=== PATIENT | male | born 1960 | race Caucasian/White ===

== ENCOUNTER 2020-05-30 08:36 | Outpatient (REF) | payer MEDICAID, SELFPAY ==
[2020-05-30 09:34] LABS: Anion Gap 12 (12-20); Blood Urea Nitrogen 21 mg/dL (9-16); Calcium 8.7 mg/dL (8.4-10.2); Carbon Dioxide 29 mmol/L (22-29); Chloride 97 mmol/L (96-108); Estimated Glomerular Filt Rate > 60; Phosphorus 2.8 mg/dL (2.7-4.5); Potassium 4.1 mmol/l (3.3-5.1); Sodium 134 mmol/L (135-145)
[2020-05-30 14:21] LABS: Renal w Reflex Lab Use Only Order verified
== END 2020-05-30 08:37 | disposition home or self-care (01) ==
LOC: HO.LAB 08:36
PROVIDERS: PCP Family Medicine; Visit Provider Internal Medicine Nephrology
DX: N17.9 Acute kidney failure, unspecified (principal); L03.90 Cellulitis, unspecified; M62.82 Rhabdomyolysis; I12.9 Hypertensive chronic kidney disease with stage 1 through stage 4 chronic kidney disease, or unspecified chronic kidney disease; N18.30 Chronic kidney disease, stage 3 unspecified; M10.9 Gout, unspecified
CPT/HCPCS: 80051; 82310; 82565; 84100; 84520

== ENCOUNTER → 2020-06-07 09:00 | Outpatient (BNV) | payer MEDICAID, SELFPAY | PROVIDERS: Visit Provider Internal Medicine | DX: D64.9 Anemia, unspecified (principal); E53.8 Deficiency of other specified B group vitamins | CPT/HCPCS: 99213; 99214 ==

== ENCOUNTER 2020-06-28 07:43 | Outpatient (REF) | payer MEDICAID, SELFPAY | END 2020-06-28 07:44 | disposition home or self-care (01) | LOC: HO.MDS 07:43 | PROVIDERS: PCP Family Medicine; Visit Provider Internal Medicine | DX: D50.9 Iron deficiency anemia, unspecified (principal) | CPT/HCPCS: 96365; 96366; J1200; J1750; Q0163 ==

== ENCOUNTER 2020-08-16 10:56 | Outpatient (REF) | payer MEDICAID, SELFPAY ==
[2020-08-16 12:10] LABS: Basophils Absolute Auto 0.1 X10*3/uL (0.0-0.2); Basophils Percent Auto 0.7 % (0-2); Eosinophils Absolute Auto 0.3 X10*3/uL (0.0-0.4); Eosinophils Percent Auto 2.4 % (0-4); Hemoglobin 12.2 g/dl (14.0-18.0); Imm Gran Abs Auto 0.06 X10*3/uL (0.00-0.03); Imm Gran Pct Auto 0.5 % (0.0-0.4); Lymphocytes Absolute Auto 1.9 X10*3/uL (1.2-4.9); Lymphocytes Percent Auto 14.5 % (20-40); MANUAL DIFF FLAG NO; Mean Corpuscular Hemoglobin 29.3 pg (27.0-33.0); Mean Corpuscular Volume 88.7 fL (80-98); Mean Platelet Volume 8.2 fL (9.4-12.4); Monocytes Percent Auto 7.5 % (2-11); Neutrophils Absolute Auto 9.8 X10*3/uL (2.0-8.3); Neutrophils Percent Auto 74.4 % (45-73); Platelet Count 258 X10*3/uL (160-400); Red Blood Count 4.17 X10*6/uL (4.60-5.80); Red Cell Distribution Width 17.3 % (11.0-16.0); White Blood Count 13.1 X10*3/uL (4.8-10.8)
[2020-08-16 12:21] LABS: Estimated Average Glucose 120 mg/dL; Hemoglobin A1c % 5.8 %
[2020-08-16 12:43] LABS: Alanine Aminotransferase 20 U/L (0-40); Albumin Level 4.1 g/dL (3.5-5.0); Alkaline Phosphatase 82 U/L (39-117); Anion Gap 19 (12-20); Aspartate Amino Transferase 72 U/L (5-37); Blood Urea Nitrogen 18 mg/dL (9-16); C Reactive Protein 7.32 mg/dL (< or = 0.50); Calcium 8.7 mg/dL (8.4-10.2); Carbon Dioxide 26 mmol/L (22-29); Chloride 97 mmol/L (96-108); Cholesterol 176 mg/dL; Estimated Glomerular Filt Rate > 60; Glucose Random 123 mg/dL (60-115); HDL Cholesterol 37 mg/dL; Iron 38 mcg/dL (45-160); LDL Cholesterol Calculated 115 mg/dl; Magnesium 1.4 mg/dL (1.6-2.6); Percent Iron Saturation 14 % (15-50); Sodium 138 mmol/L (135-145); Total Iron Binding Capacity 280 mcg/dL (228-428); Total Protein 7.6 g/dL (6.5-8.0); Triglycerides 122 mg/dL; Unsaturated Iron Binding 242 ug/dL; Uric Acid 9.4 mg/dL (3.4-7.0)
[2020-08-16 12:51] LABS: Erythrocyte Sedimentation Rate 70 MM/HR (0-15)
[2020-08-16 12:54] LABS: TSH reflex Free T4 3.72 mIU/mL (0.32-4.0); Vitamin D 25-OH Total 17.9 ng/mL (>30)
[2020-08-16 13:11] LABS: Folate 7.9 ng/mL (> or = 4.0); Vitamin B12 > 2000 pg/mL (200-900)
== END 2020-08-16 10:57 | disposition home or self-care (01) ==
LOC: HO.LAB 10:56
PROVIDERS: PCP Family Medicine; Visit Provider Family Medicine
DX: D50.9 Iron deficiency anemia, unspecified (principal); E78.5 Hyperlipidemia, unspecified; E79.0 Hyperuricemia without signs of inflammatory arthritis and tophaceous disease; E83.42 Hypomagnesemia; N18.30 Chronic kidney disease, stage 3 unspecified; R70.0 Elevated erythrocyte sedimentation rate
CPT/HCPCS: 36415; 80053; 80061; 82306; 82550; 82607; 82746; 83036; 83540; 83735; 84443; 84550; 85025; 85652; 86140

== ENCOUNTER 2020-11-04 08:13 | Outpatient (REF) | payer MEDICAID, SELFPAY ==
[2020-11-04 09:43] LABS: Anion Gap 16 (12-20); Blood Urea Nitrogen 22 mg/dL (9-16); Calcium 8.5 mg/dL (8.4-10.2); Carbon Dioxide 28 mmol/L (22-29); Chloride 96 mmol/L (96-108); Estimated Glomerular Filt Rate > 60; Phosphorus 3.6 mg/dL (2.7-4.5); Potassium 4.2 mmol/L (3.3-5.1); Sodium 136 mmol/L (135-145)
[2020-11-04 09:57] LABS: Renal w Reflex Lab Use Only Order verified
== END 2020-11-04 08:14 | disposition home or self-care (01) ==
LOC: HO.LAB 08:13
PROVIDERS: Absent Provider Family Medicine; PCP Family Medicine; Visit Provider Internal Medicine Nephrology
DX: N17.9 Acute kidney failure, unspecified (principal); L03.90 Cellulitis, unspecified; M62.82 Rhabdomyolysis; I12.9 Hypertensive chronic kidney disease with stage 1 through stage 4 chronic kidney disease, or unspecified chronic kidney disease; N18.30 Chronic kidney disease, stage 3 unspecified; M10.9 Gout, unspecified
CPT/HCPCS: 36415; 80051; 82310; 82565; 84100; 84520

== ENCOUNTER 2020-12-09 12:42 | Outpatient (RCR) | payer MEDICAID, SELFPAY | END 2021-01-10 13:37 | disposition home or self-care (01) | LOC: HO.WCC 12:42 | PROVIDERS: Visit Provider Physician Assistant | DX: I87.333 Chronic venous hypertension (idiopathic) with ulcer and inflammation of bilateral lower extremity (principal); L97.221 Non-pressure chronic ulcer of left calf limited to breakdown of skin; L97.211 Non-pressure chronic ulcer of right calf limited to breakdown of skin; L97.811 Non-pressure chronic ulcer of other part of right lower leg limited to breakdown of skin; L97.821 Non-pressure chronic ulcer of other part of left lower leg limited to breakdown of skin; E66.01 Morbid (severe) obesity due to excess calories; I87.2 Venous insufficiency (chronic) (peripheral); I89.0 Lymphedema, not elsewhere classified; R73.03 Prediabetes; I12.9 Hypertensive chronic kidney disease with stage 1 through stage 4 chronic kidney disease, or unspecified chronic kidney disease; N18.9 Chronic kidney disease, unspecified; Z86.718 Personal history of other venous thrombosis and embolism; Z91.19 Patient's noncompliance with other medical treatment and regimen; Z79.2 Long term (current) use of antibiotics | CPT/HCPCS: 11042; 97597; 97598; 99212 ==

== ENCOUNTER 2021-01-27 08:13 | Outpatient (REF) | payer MEDICAID, SELFPAY ==
[2021-01-27 09:36] LABS: Anion Gap 14 (12-20); Blood Urea Nitrogen 18 mg/dL (9-16); Calcium 8.6 mg/dL (8.4-10.2); Carbon Dioxide 30 mmol/L (22-29); Chloride 100 mmol/L (96-108); Estimated Glomerular Filt Rate > 60; Potassium 3.9 mmol/L (3.3-5.1); Sodium 140 mmol/L (135-145)
== END 2021-01-27 08:14 | disposition home or self-care (01) ==
LOC: HO.LAB 08:13
PROVIDERS: PCP Family Medicine; Visit Provider Internal Medicine Nephrology
DX: N18.2 Chronic kidney disease, stage 2 (mild) (principal)
CPT/HCPCS: 36415; 80051; 82310; 82565; 84520

== ENCOUNTER 2021-04-28 08:11 | Outpatient (REF) | payer MEDICAID, SELFPAY ==
[2021-04-28 09:43] LABS: Anion Gap 16 (12-20); Blood Urea Nitrogen 13 mg/dL (9-16); Calcium 8.6 mg/dL (8.4-10.2); Carbon Dioxide 28 mmol/L (22-29); Chloride 95 mmol/L (96-108); Estimated Glomerular Filt Rate > 60; Potassium 4.1 mmol/L (3.3-5.1); Sodium 135 mmol/L (135-145)
== END 2021-04-28 08:12 | disposition home or self-care (01) ==
LOC: HO.LAB 08:11
PROVIDERS: PCP Family Medicine; Visit Provider Internal Medicine Nephrology
DX: I10 Essential (primary) hypertension (principal)
CPT/HCPCS: 36415; 80051; 82310; 82565; 84520

== ENCOUNTER 2021-08-15 07:50 | Outpatient (RCR) | payer MEDICAID, SELFPAY | END 2021-11-24 09:00 | disposition home or self-care (01) | LOC: HO.WCC 07:50 | PROVIDERS: PCP Family Medicine; Visit Provider Physician Assistant | DX: I87.333 Chronic venous hypertension (idiopathic) with ulcer and inflammation of bilateral lower extremity (principal); L97.322 Non-pressure chronic ulcer of left ankle with fat layer exposed; L97.221 Non-pressure chronic ulcer of left calf limited to breakdown of skin; R73.03 Prediabetes; I87.2 Venous insufficiency (chronic) (peripheral); E66.01 Morbid (severe) obesity due to excess calories; E44.1 Mild protein-calorie malnutrition; I89.0 Lymphedema, not elsewhere classified; Z86.718 Personal history of other venous thrombosis and embolism; Z79.899 Other long term (current) drug therapy; L97.812 Non-pressure chronic ulcer of other part of right lower leg with fat layer exposed | CPT/HCPCS: 11042; 11045; 29581; 97597; 99212; 99213 ==

== ENCOUNTER 2021-10-27 09:01 | Outpatient (REF) | payer MEDICAID, SELFPAY ==
[2021-10-27 10:34] LABS: Anion Gap 16 (12-20); Blood Urea Nitrogen 25 mg/dL (9-16); Calcium 8.9 mg/dL (8.4-10.2); Carbon Dioxide 29 mmol/L (22-29); Chloride 98 mmol/L (96-108); Estimated Glomerular Filt Rate > 60; Potassium 4.1 mmol/L (3.3-5.1); Sodium 139 mmol/L (135-145)
== END 2021-10-27 09:02 | disposition home or self-care (01) ==
LOC: HO.LAB 09:01
PROVIDERS: PCP Family Medicine; Visit Provider Internal Medicine Nephrology
DX: I10 Essential (primary) hypertension (principal)
CPT/HCPCS: 36415; 80051; 82310; 82565; 84520

== ENCOUNTER 2022-01-22 08:45 | Inpatient (IN) | payer MEDICAID, SELFPAY ==
--- NOTE | ~2022-01-22 | CT_ITS ---
EXAMINATION: CT LOWER EXTREMITY WITHOUT CONTRAST, RIGHT CT LOWER EXTREMITY WITHOUT CONTRAST, LEFT CLINICAL INFORMATION: Possible deep tissue infection. COMPARISON: X-ray of the right lower extremity May 2019. TECHNIQUE: CT scan of the right and left lower extremity was performed without contrast with reconstruction imaging performed at the acquisition workstation. FINDINGS: RIGHT LOWER EXTREMITY: Subcutaneous Soft Tissues: There appears to be generalized skin thickening. Scattered feathery-appearing increased density throughout the subcutaneous soft tissues compatible with edema, cellulitis, or combination of these. No focal fluid collection. Muscles and Tendons: Normal Scattered arterial calcification present throughout. Bone and Joints: There is scattered chronic-appearing periosteal reaction throughout the tibia and distal fibula. Bone and joints otherwise unremarkable. LEFT LOWER EXTREMITY: Mild generalized thickening of the skin less evident than on the right side. Subcutaneous Soft Tissues: Generalized streaky density noted throughout the subcutaneous soft tissues compatible edema, cellulitis or combination of these. Muscles and Tendons: Normal Arterial calcification is normal. Bone and Joints: There is scattered chronic-appearing periosteal reaction throughout the proximal and distal tibia and fibula. Appearance is similar to that noted on the right side. CT/CT lower leg LT wo con IMPRESSION: Right Lower Extremity: Generalized nonspecific skin thickening. Abnormality in the subcutaneous soft tissues compatible with edema, cellulitis, or combination of these. No localized fluid collection or abscess. Chronic periosteal reaction distal tibia and fibula with a similar appearance noted on the left side. This most likely reflects reactive change related to venous insufficiency. Less likely this could be seen with hypertrophic osteoarthropathy Left Lower Extremity: Generalized nonspecific skin thickening slightly less than that noted on the right side. Abnormality the subcutaneous soft tissues compatible edema, cellulitis, or combination of these. No localized fluid collection or abscess. Chronic periosteal reaction distal tibia and fibula with a similar appearance noted on the right side. This most likely reflects reactive change related to venous insufficiency. Less likely this could be seen with hypertrophic osteoarthropathy.
--- NOTE | ~2022-01-22 | US_ITS ---
EXAMINATION: US VENOUS ULTRASOUND WITH DOPPLER LOWER EXTREMITY, BILATERAL CLINICAL INFORMATION: Bilateral lower extremity swelling and pain COMPARISON: Bilateral DVT study 07/02/2019 TECHNIQUE: Ultrasound of the deep veins is performed from the hip to the calf with compression sonography and color and pulse Doppler assessment. Spectral analysis with color-flow imaging is performed. This study is limited due to clark in thickening and edema as well as scabs FINDINGS: RIGHT: There is normal venous compression and respiratory variation and augmented flow. The visualized common femoral vein, superficial femoral vein, profunda femoral vein, popliteal vein, and the trifurcation region shows no evidence of deep venous thrombosis. There is no significant popliteal fossa cyst. Prominent lymph nodes are present measuring a maximum of 1.8 cm. LEFT: There is normal venous compression and respiratory variation and augmented flow. The visualized common femoral vein, superficial femoral vein, profunda femoral vein, popliteal vein, and the trifurcation region shows no evidence of deep venous thrombosis. There is no significant popliteal fossa cyst. Prominent lymph nodes are present measuring a maximum of 1.2 cm. If the patient's symptoms persist, followup ultrasound in 5 days 7 days might be of value to exclude proximal propagation from a non-visualized calf vein. US/US venous duplex LE BI IMPRESSION: No DVT demonstrated in either lower extremity. Prominent infra inguinal lymph nodes bilaterally.
--- NOTE | ~2022-01-22 | XR_ITS ---
EXAMINATION: XR CHEST CLINICAL INFORMATION: Febrile with cough COMPARISON: Chest radiograph 12/16/2019 TECHNIQUE: 2 views of the chest were obtained. FINDINGS: The heart appears slightly larger when compared to 2020 exam but is probably within normal limits allowing for technique. No infiltrates, effusions or lung masses are seen. There is no evidence of CHF. XR/XR chest 2V IMPRESSION: No acute intrathoracic disease
--- NOTE | ~2022-01-22 | CT_ITS ---
EXAMINATION: CT LOWER EXTREMITY WITHOUT CONTRAST, RIGHT CT LOWER EXTREMITY WITHOUT CONTRAST, LEFT CLINICAL INFORMATION: Possible deep tissue infection. COMPARISON: X-ray of the right lower extremity May 2019. TECHNIQUE: CT scan of the right and left lower extremity was performed without contrast with reconstruction imaging performed at the acquisition workstation. FINDINGS: RIGHT LOWER EXTREMITY: Subcutaneous Soft Tissues: There appears to be generalized skin thickening. Scattered feathery-appearing increased density throughout the subcutaneous soft tissues compatible with edema, cellulitis, or combination of these. No focal fluid collection. Muscles and Tendons: Normal Scattered arterial calcification present throughout. Bone and Joints: There is scattered chronic-appearing periosteal reaction throughout the tibia and distal fibula. Bone and joints otherwise unremarkable. LEFT LOWER EXTREMITY: Mild generalized thickening of the skin less evident than on the right side. Subcutaneous Soft Tissues: Generalized streaky density noted throughout the subcutaneous soft tissues compatible edema, cellulitis or combination of these. Muscles and Tendons: Normal Arterial calcification is normal. Bone and Joints: There is scattered chronic-appearing periosteal reaction throughout the proximal and distal tibia and fibula. Appearance is similar to that noted on the right side. CT/CT lower leg RT wo con IMPRESSION: Right Lower Extremity: Generalized nonspecific skin thickening. Abnormality in the subcutaneous soft tissues compatible with edema, cellulitis, or combination of these. No localized fluid collection or abscess. Chronic periosteal reaction distal tibia and fibula with a similar appearance noted on the left side. This most likely reflects reactive change related to venous insufficiency. Less likely this could be seen with hypertrophic osteoarthropathy Left Lower Extremity: Generalized nonspecific skin thickening slightly less than that noted on the right side. Abnormality the subcutaneous soft tissues compatible edema, cellulitis, or combination of these. No localized fluid collection or abscess. Chronic periosteal reaction distal tibia and fibula with a similar appearance noted on the right side. This most likely reflects reactive change related to venous insufficiency. Less likely this could be seen with hypertrophic osteoarthropathy.
[2022-01-22 08:53] VITALS: BP 156/86; PULSE 100; RESP 20; TEMP 37.3; O2SAT 96; BMI 47.5
--- NOTE | 2022-01-22 09:03 | ED_ITS ---
HPI - General Adult General Chief complaint: Extremity Problem Stated complaint: r leg pain Time Seen by Provider: 01/22/22 09:03 Source: patient Mode of arrival: ambulatory (with walker) Limitations: no limitations History of Present Illness HPI narrative: Patient is a 61 year old male presenting to the emergency department today with right lower leg swelling and pain. Patient states that he has constant lower leg redness for which he used to follow up with the wound center but last month, they discharged him. Patient states that over the last 2 days, his right lower leg has gotten significantly more red and painful. Patient states that he does not have a history of diabetes. Patient states that he has a history of venous insufficiency for which he has had a venous ablation. Patient denies any dizziness, lightheadedness, abdominal pain, nausea, vomiting, fever, chills, blurry vision, double vision, loss of vision, chest pain, difficulty breathing, shortness of breath, back pain, night sweats, pain with urination, increased urinary frequency, increased urinary urgency, blood in his urine or stool, syncope or a near syncopal episode, recent trauma or falls, bowel incontinence, bladder incontinence, bowel retention, bladder retention, or any other complaints at this time. Onset (ago): day(s) Location: right and lower extremity Radiation: non-radiation Severity: mild Severity scale (1-10): 2 Quality: dull Pain Consistency: constant Relieving factors: none Exacerbating factors: none Associated symptoms: denies other symptoms Treatments prior to arrival: none Related Data Home Medications Medication Instructions Recorded Confirmed allopurinol 300 mg tablet 300 mg PO DAILY 06/07/20 01/22/22 ascorbic acid (vitamin C) 500 mg 500 mg PO BID 06/07/20 01/22/22 tablet (Vitamin C) calcium carbonate 500 mg-vitamin 1 tab PO BID 06/07/20 01/22/22 D3 3.125 mcg (125 unit) tablet magnesium oxide 400 mg PO BID 06/07/20 01/22/22 torsemide 20 mg tablet 40 mg PO DAILY 06/07/20 01/22/22 allopurinol 100 mg tablet 1 tab PO DAILY 01/22/22 01/22/22 lisinopril 5 mg tablet 1 tab PO DAILY 01/22/22 01/22/22 metoprolol succinate 50 mg 1 tab PO DAILY 01/22/22 01/22/22 tablet,extended release 24 hr rosuvastatin 5 mg tablet 1 tab PO BEDTIME 01/22/22 01/22/22 Previous Rx's Medication Instructions Recorded ferrous sulfate 325 mg (65 mg 325 mg PO BID #60 tab 11/30/21 iron) tablet Allergies Allergy/AdvReac Type Severity Reaction Status Date / Time azithromycin [AZITHROMYCIN] Allergy Severe FACIAL Verified 11/30/21 09:19 SWELLING hydrochlorothiazide [HCTZ] Allergy Unknown UNKNOWN Verified 11/30/21 09:19 Review of Systems Constitutional: Constitutional: Reports no additional constitutional complaints, Denies chills, Denies fever(s) and Denies night sweats Eyes: Eyes: Reports no additional eye complaints, Denies blurry vision, Denies change in vision, Denies diplopia, Denies eye discharge, Denies loss of vision and Denies eye pain ENT: Denies dizziness Cardiovascular: Cardiovascular: Reports no additional cardiovascular complaints, Denies chest pain, Denies lightheadedness, Denies Loss of Consciousness and Denies dyspnea Respiratory: Respiratory: Reports no additional respiratory complaints and Denies dyspnea Gastrointestinal: Gastrointestinal: Reports no additional gastrointestinal complaints, Denies abdominal pain, Denies melena, Denies hematochezia, Denies change in bowel habits and Denies change in stool character Genitourinary: Genitourinary: Reports no additional male genitourinary complaints, Denies hematuria, Denies oliguria, Denies difficulty urinating, Denies dysuria, Denies urinary frequency, Denies urinary hesitancy, Denies u rinary incontinence and Denies urinary urgency Musculoskeletal: Musculoskeletal: Reports no additional musculoskeletal complaints, Denies numbness and Denies tingling Comments: bilateral lower extremity swelling, redness Neurologic: Denies dizziness, Denies loss of vision, Denies numbness and Denies tingling Psychiatric: Psychiatric: Reports no additional psychiatric complaints Endocrine: Endocrine: Reports no additional endocrine complaints Hematologic/Lymphatic: Hematologic/Lymphatic: Reports no additional hematologic/lymphatic complaints Allergic/Immunologic: Allergic/Immunologic: Reports no additional allergic/immunologic complaints PMFSH Past Medical History Attestation statement: The following information was validated with the patient. Source: old records reviewed Medical History Alcoholic steatohepatitis Anemia Ascending aortic aneurysm Chronic ulcer of leg Chronic venous stasis History of DVT of lower extremity History of rhabdomyolysis HTN (hypertension) Hx of lower gastrointestinal bleeding Hx of sepsis DEBORAH (obstructive sleep apnea) Seborrheic dermatitis Surgical History Hx of colonoscopy Social History Social History Alcohol intake: current Alcohol intake frequency: 3 or more drinks per day Alcohol type: beer Patient Tobacco Use Status: Never used Tobacco Advance Directives: Yes Advance Directives Information Provided: No Advance Directives on File: No Physical Exam ED Vital Signs: Vital Signs - 24 hr 01/22/22 08:53 01/22/22 10:04 Temperature 99.1 F Pulse Rate 100 91 Respiratory Rate 20 16 Blood Pressure 156/86 H 151/76 H Pulse Oximetry 96 100 BMI result Body Mass Index 47.5 Const General: cooperative, no acute distress, alert and awake Nutritional Appearance: well nourished Orientation/consciousness: patient oriented x3 Limitations: no limitations HENMT Head: Yes normal to inspection and Yes atraumatic Ears: hearing grossly normal bilaterally and external ears normal General nose exam: Normal external nose present, no nasal discharge noted and no epistaxis Face and sinus: Yes normal facial exam, No abrasion and No laceration Mouth: Normal oral and palatal mucosa present, no drooling and no muffled voice Eyes General: appearance normal, both eyes and all related structures Periorbital: periorbital findings normal Eyelids: Yes eyelids normal Conjunctivae: conjunctivae normal Pupils: Equal, round and reactive pupils present EOM: EOMs intact bilaterally Neck Neck: Yes normal visual inspection, Yes full ROM and Yes no lymphadenopathy Chest Chest palpation & inspection: normal inspection of the chest Resp Effort & Inspection: normal respiratory effort and able to speak in complete sen tences Auscultation: clear to auscultation bilaterally Cardio Rate: regular rate Rhythm: regular rhythm GI Inspection: Yes normal to inspection Skin Other: significant erythema to the bilateral lower extremities with more so on the right than left, significant swelling to the right lower leg Neuro General: patient oriented x3 and moves all extremities Cranial nerves: Yes Equal, round and reactive pupils present Cognition (Neuro): normal cognition Motor exam (neuro): 5/5 motor strength present throughout Sensory Exam: Normal double simultaneous stimulation for sensation Coordination: [id number] test normal Extrem Other: General: Yes full ROM and Yes capillary refill normal Psych Appearance: grossly normal Mental Status: mental status grossly normal Affect: normal affect Attitude: cooperative Thought process: Normal thought process present Thought content: Normal thought content present Insight: Good insight present (Psych) Medical Decision Making MDM Narrative Medical decision making narrative: Patient is a 61 year old male presenting to the emergency department today with right lower leg pain. Patient's physical exam was as described previously in this chart, with extensive erythema, warmth, and swelling to the right lower leg. Patient's blood work showed an elevated WBC count. Patient's EKG was unremarkable. Patient's chest x-ray showed no acute process. Patient's bilateral lower extremity US, showed no acute process. Patient's bilateral lower leg CT showed, increased thickening to the right lower leg consistent with cellulitis. I spoke to Dr. Pratt, the hospitalist senior information security consultant, who agreed to admission. I explained my physical exam findings as well as all test results to the patient. I answered all questions asked by the patient. Patient received IV Zosyn, Morphine, and Zofran which he stated helped his symptoms significantly. Patient was afebrile and not tachycardic, I did not suspect sepsis in this patient. Patient verbalized agreement and understanding with this treatment plan and admission. Differential Diagnosis Differential Diagnosis: cellulitis, chronic venous insufficency, non-healing ulcer Medical Records Medical records reviewed: Yes I reviewed the patient's medical records. Lab Data Lab results reviewed: Yes I reviewed the patient's lab results. Result diagrams: 01/22/22 09:28 01/22/22 09:28 Labs: Lab Results 01/22/22 01/22/22 01/22/22 Range/Units 09:28 09:28 09:28 WBC 11.2 H (4.8-10.8) X10*3/uL RBC 4.09 L (4.60-5.80) X10*6/uL Hgb 9.5 L (14.0-18.0) g/dl Hct 31.1 L (42.0-52.0) % MCV 76.0 L (80.0-98.0) fL MCH 23.2 L (27.0-33.0) pg MCHC 30.5 L (31.0-36.0) g/dl RDW 16.4 H (11.0-16.0) % Plt Count 217 (160-400) X10*3/uL MPV 8.7 L (9.4-12.4) fL Immature Gran % (Auto) 0.5 H (0.0-0.4) % Neut % (Auto) 72.5 (45-73) % Lymph % (Auto) 14.1 L (20-40) % [place] % (Auto) 9.6 (2-11) % Eos % (Auto) 2.9 (0-4) % Baso % (Auto) 0.4 (0-2) % Lymph # (Auto) 1.6 (1.2-4.9) X10*3/uL [place] # (Auto) 1.1 (0.1-1.2) X10*3/uL Eos # (Auto) 0.3 (0.0-0.4) X10*3/uL Baso # (Auto) 0.1 (0.0-0.2) X10*3/uL Abs Immat Gran (auto) 0.06 H (0.00-0.03) X10*3/uL Absolute Neuts (auto) 8.1 (2.0-8.3) x10*3/uL Absolute Nucleated RBC 0.000 (0.0-0.012) X10*3/uL Nucleated RBC % (auto) 0.0 (0.0-0.2) /100WBC Sodium 136 (135-145) mmol/L Potassium 4.0 (3.3-5.1) mmol/L Chloride 96 (96-108) mmol/L Carbon Dioxide 27 (22-29) mmol/L Anion Gap 17 (12-20) BUN 19 H (9-16) mg/dL Creatinine 1.07 (0.5-1.4) mg/dL Estim Creat Clear Calc 104.7 Estimated GFR > 60 Random Glucose 121 H (60-115) mg/dL Lactic Acid 1.2 (0.5-2.0) mmol/L Calcium 8.9 (8.4-10.2) mg/dL Total Bilirubin 1.6 H (0.0-1.0) mg/dL AST 20 (5-37) U/L ALT 16 (0-40) U/L Alkaline Phosphatase 115 D (39-117) U/L B-Natriuretic Peptide (<100) pg/mL Total Protein 7.8 (6.5-8.0) g/dL Albumin 4.1 (3.5-5.0) g/dL COVID-19 ([facility]ST[facility]) (Negative) COVID-19 Clin Com 01/22/22 01/22/22 Range/Units 09:28 10:08 WBC (4.8-10.8) X10*3/uL RBC (4.60-5.80) X10*6/uL Hgb (14.0-18.0) g/dl Hct (42.0-52.0) % MCV (80.0-98.0) fL MCH (27.0-33.0) pg MCHC (31.0-36.0) g/dl RDW (11.0-16.0) % Plt Count (160-400) X10*3/uL MPV (9.4-12.4) fL Immature Gran % (Auto) (0.0-0.4) % Neut % (Auto) (45-73) % Lymph % (Auto) (20-40) % [place] % (Auto) (2-11) % Eos % (Auto) (0-4) % Baso % (Auto) (0-2) % Lymph # (Auto) (1.2-4.9) X10*3/uL [place] # (Auto) (0.1-1.2) X10*3/uL Eos # (Auto) (0.0-0.4) X10*3/uL Baso # (Auto) (0.0-0.2) X10*3/uL Abs Immat Gran (auto) (0.00-0.03) X10*3/uL Absolute Neuts (auto) (2.0-8.3) x10*3/uL Absolute Nucleated RBC (0.0-0.012) X10*3/uL Nucleated RBC % (auto) (0.0-0.2) /100WBC Sodium (135-145) mmol/L Potassium (3.3-5.1) mmol/L Chloride (96-108) mmol/L Carbon Dioxide (22-29) mmol/L Anion Gap (12-20) BUN (9-16) mg/dL Creatinine (0.5-1.4) mg/dL Estim Creat Clear Calc Estimated GFR Random Glucose (60-115) mg/dL Lactic Acid (0.5-2.0) mmol/L Calcium (8.4-10.2) mg/dL Total Bilirubin (0.0-1.0) mg/dL AST (5-37) U/L ALT (0-40) U/L Alkaline Phosphatase (39-117) U/L B-Natriuretic Peptide 51 (<100) pg/mL Total Protein (6.5-8.0) g/dL Albumin (3.5-5.0) g/dL COVID-19 (TORSTEN) Negative (Negative) COVID-19 Clin Com See Note Imaging Data Chest x-ray: Attestation: I personally reviewed and interpreted this imaging study as follows: My impression: No acute process. Radiologist's impression: EXAMINATION: XR CHEST CLINICAL INFORMATION: Febrile with cough COMPARISON: Chest radiograph 12/16/2019 TECHNIQUE: 2 views of the chest were obtained. FINDINGS: The heart appears slightly larger when compared to 2020 exam but is probably within normal limits allowing for technique. No infiltrates, effusions or lung masses are seen. There is no evidence of CHF. XR/XR chest 2V IMPRESSION: No acute intrathoracic disease Dictated By: Arnaldo Aguero MD Signed By: Electronically signed by Arnaldo Aguero MD 01/22/[address]: Attestation: I personally reviewed and interpreted this imaging study as follows: My impression: Right lower leg cellulitis Radiologist's impression: EXAMINATION: CT LOWER EXTREMITY WITHOUT CONTRAST, RIGHT? CT LOWER EXTREMITY WITHOUT CONTRAST, LEFT CLINICAL INFORMATION: Possible deep tissue infection.? COMPARISON: X-ray of the right lower extremity May 2019. TECHNIQUE: CT scan of the right and left lower extremity was performed without contrast with reconstruction imaging performed at the acquisition workstation.? FINDINGS: RIGHT LOWER EXTREMITY: Subcutaneous Soft Tissues: There appears to be generalized skin thickening. Scattered feathery-appearing increased density throughout the subcutaneous soft tissues compatible with edema, cellulitis, or combination of these. No focal fluid collection. Muscles and Tendons: Normal Scattered arterial calcification present throughout. Bone and Joints: There is scattered chronic-appearing periosteal reaction throughout the tibia and distal fibula. Bone and joints otherwise unremarkable. LEFT LOWER EXTREMITY: Mild generalized thickening of the skin less evident than on the right side. Subcutaneous Soft Tissues: Generalized streaky density noted throughout the subcutaneous soft tissues compatible edema, cellulitis or combination of these. Muscles and Tendons: Normal Arterial calcification is normal. Bone and Joints: There is scattered chronic-appearing periosteal reaction throughout the proximal and distal tibia and fibula. Appearance is similar to that noted on the right side.? CT/CT lower leg LT wo con IMPRESSION: Right Lower Extremity: Generalized nonspecific skin thickening. Abnormality in the subcutaneous soft tissues compatible with edema, cellulitis, or combination of these. No localized fluid collection or abscess. ? Chronic periosteal reaction distal tibia and fibula with a similar appearance noted on the left side. This most likely reflects reactive change related to venous insufficiency. Less likely this could be seen with hypertrophic osteoarthropathy ? Left Lower Extremity: Generalized nonspecific skin thickening slightly less than that noted on the right side. Abnormality the subcutaneous soft tissues compatible edema, cellulitis, or combination of these. No localized fluid collection or abscess. ? Chronic periosteal reaction distal tibia and fibula with a similar appearance noted on the right side. This most likely reflects reactive change related to venous insufficiency. Less likely this could be seen with hypertrophic osteoarthropathy. Dictated By: Jason Rodarte MD Signed By: Electronically signed by Jason Rodarte MD 01/22/22 1324 Bilateral lower leg US: Attestation: I personally reviewed and interpreted this imaging study as follows: My impression: No acute DVT. Radiologist's impression: EXAMINATION:? US VENOUS ULTRASOUND WITH DOPPLER LOWER EXTREMITY, BILATERAL CLINICAL INFORMATION:? Bilateral lower extremity swelling and pain COMPARISON:? Bilateral DVT study 07/02/2019 TECHNIQUE: Ultrasound of the deep veins is performed from the hip to the calf with compression sonography and color and pulse Doppler assessment. Spectral analysis with color-flow imaging is performed. This study is limited due to clark in thickening and edema as well as scabs FINDINGS: RIGHT: There is normal venous compression and respiratory variation and augmented flow. The visualized common femoral vein, superficial femoral vein, profunda femoral vein, popliteal vein, and the trifurcation region shows no evidence of deep venous thrombosis. ? There is no significant popliteal fossa cyst. Prominent lymph nodes are present measuring a maximum of 1.8 cm. LEFT: There is normal venous compression and respiratory variation and augmented flow. The visualized common femoral vein, superficial femoral vein, profunda femoral vein, popliteal vein, and the trifurcation region shows no evidence of deep venous thrombosis. ? There is no significant popliteal fossa cyst. Prominent lymph nodes are present measuring a maximum of 1.2 cm. If the patient's symptoms persist, followup ultrasound in 5 days 7 days might be of value to exclude proximal propagation from a non-visualized calf vein. US/US venous duplex LE BI IMPRESSION: No DVT demonstrated in either lower extremity. Prominent infra inguinal lymph nodes bilaterally. Dictated By: Arnaldo Aguero MD Signed By: Electronically signed by Arnaldo Aguero MD 01/22/22 1302 ECG Data Attestation: I personally reviewed and interpreted this ECG as follows: Prior ECG tracings: available for review Interpretation: Vent. Rate: 092 BPM ? ? Atrial Rate: 092 BPM P-R Int: 210 ms? QRS Dur: 120 ms QT Int: 388 ms ? ? ? P-R-T Axes: 043 -41 034 degrees QTc Int: 479 ms ? Sinus rhythm with 1st degree A-V block Left axis deviation Minimal voltage criteria for LVH, may be normal variant ( R in aVL ) Abnormal ECG When compared with ECG of 16-DEC-2019 21:25, [place] interval has increased ? Electronically Signed By:ARNOL MAHARAJ Dictated By: Arnol Maharaj MD Signed By: Electronically signed by Arnol Maharaj MD 01/22/22 1054 Critical Care Time Critical Care Time Critical Care Time: Yes Total Critical Care Time: 30 Attestation: I spent 30 minutes of Critical Care Time with this patient. This does not include time spent on separately reported billable procedures. Discharge Plan Discharge Clinical Impression: Cellulitis Patient Disposition: Admitted As Inpatient Prescriptions: No Action torsemide 20 mg Tablet 40 mg PO DAILY 0RF ascorbic acid (vitamin C) [Vitamin C] 500 mg Tablet 500 mg PO BID 0RF allopurinol 300 mg Tablet 300 mg PO DAILY 0RF calcium carbonate-vitamin D3 [Calcium 500 + D (D3)] 500 mg(1,250mg) -125 unit Tablet 1 tab PO BID 0RF magnesium oxide 400 mg magnesium Tablet 400 mg PO BID 0RF ferrous sulfate 325 mg (65 mg iron) Tablet 325 mg PO BID Qty: 60 3RF metoprolol succinate 50 mg tablet extended release 24 hr 1 tab PO DAILY 0RF allopurinol 100 mg tablet 1 tab PO DAILY 0RF Rx Instructions: Take with 300 mg tablet lisinopril 5 mg tablet 1 tab PO DAILY 0RF rosuvastatin 5 mg tablet 1 tab PO BEDTIME 0RF Print Language: Kazakh
--- NOTE | 2022-01-22 09:12 | ECG_ITS ---
Test Reason : weakness Blood Pressure : / mmHG Vent. Rate : 092 BPM Atrial Rate : 092 BPM P-R Int : 210 ms QRS Dur : 120 ms QT Int : 388 ms P-R-T Axes : 043 -41 034 degrees QTc Int : 479 ms Sinus rhythm with 1st degree A-V block Left axis deviation Minimal voltage criteria for LVH, may be normal variant ( R in aVL ) Abnormal ECG When compared with ECG of 16-DEC-2019 21:25, [place] interval has increased Referred By: Lacy Cho Electronically Signed By:CARRILLO MAHARAJ
[2022-01-22] MEDS: Piperacillin Sodium/Tazobactam 4.5 GM in 0.9 % Sodium Chloride 100 ML IV (09:40)
[2022-01-22 09:42] LABS: MANUAL DIFF FLAG NO
[2022-01-22 09:44] LABS: Basophils Absolute Auto 0.1 X10*3/uL (0.0-0.2); Basophils Percent Auto 0.4 % (0-2); Eosinophils Absolute Auto 0.3 X10*3/uL (0.0-0.4); Eosinophils Percent Auto 2.9 % (0-4); Hematocrit 31.1 % (42.0-52.0); Hemoglobin 9.5 g/dl (14.0-18.0); Imm Gran Abs Auto 0.06 X10*3/uL (0.00-0.03); Imm Gran Pct Auto 0.5 % (0.0-0.4); Lymphocytes Absolute Auto 1.6 X10*3/uL (1.2-4.9); Lymphocytes Percent Auto 14.1 % (20-40); Mean Corpuscular HGB Conc 30.5 g/dl (31.0-36.0); Mean Corpuscular Hemoglobin 23.2 pg (27.0-33.0); Mean Platelet Volume 8.7 fL (9.4-12.4); Monocytes Absolute Auto 1.1 X10*3/uL (0.1-1.2); Monocytes Percent Auto 9.6 % (2-11); Neutrophils Absolute Auto 8.1 x10*3/uL (2.0-8.3); Neutrophils Percent Auto 72.5 % (45-73); Platelet Count 217 X10*3/uL (160-400); Red Blood Count 4.09 X10*6/uL (4.60-5.80); Red Cell Distribution Width 16.4 % (11.0-16.0); White Blood Count 11.2 X10*3/uL (4.8-10.8)
[2022-01-22 09:56] LABS: Lactic Acid 1.2 mmol/L (0.5-2.0)
[2022-01-22 10:00] LABS: Alanine Aminotransferase 16 U/L (0-40); Albumin Level 4.1 g/dL (3.5-5.0); Alkaline Phosphatase 115 U/L (39-117); Anion Gap 17 (12-20); Aspartate Amino Transferase 20 U/L (5-37); Bilirubin Total 1.6 mg/dL (0.0-1.0); Blood Urea Nitrogen 19 mg/dL (9-16); Calcium 8.9 mg/dL (8.4-10.2); Carbon Dioxide 27 mmol/L (22-29); Chloride 96 mmol/L (96-108); Creatinine Clr Calc Pharmacy 104.7; Estimated Glomerular Filt Rate > 60; Glucose Random 121 mg/dL (60-115); Sodium 136 mmol/L (135-145); Total Protein 7.8 g/dL (6.5-8.0)
[2022-01-22 10:04] VITALS: BP 151/76; PULSE 91; RESP 16; O2SAT 100
[2022-01-22 10:06] LABS: B Type Natriuretic Peptide 51 pg/mL (<100)
[2022-01-22 10:35] LABS: COVID-19 Test Negative (Negative); IDNOW Serial# 16C4AD1C
--- NOTE | 2022-01-22 11:05 | PHA.MEDREC ---
Pharmacy Consult ? Medication Reconciliation Pharmacy has completed the medication reconciliation. Patient reported all medications. Reported he forget his magnesium often because it has to be seperate with ther medicaitons and food. On his list he has metoprolol 25 mg but claim history has 50 mg. I called [facility] to confirm which dose he take. Per the pharmacy metoprolol succinate 50 mg was filled january 02, 2022. Delmi EspinozaD
--- NOTE | 2022-01-22 14:50 | P.HPHOSP_ITS ---
History of Present Illness Date of Service: 01/22/22 Chief Complaint: swelling and redness in the legs 61 year old male with besity, HTN, HLD, history lower extremity DVT, chronic venous stasis with chronic erythema of the legs and follow with the wound care clinic that recently discharged from the clinic and presents with increasing rendess, and swelling in both legs with skin breaks in the right leg, with superficial drainage, has has been using a walker but increasingly is more difficulty ambulating. Home care agent advised hime to come to the ED today. He has no fever, WBC is 11. Given Zosyn. for presumed cellulitis Review of Systems Review of Systems: Gen: no fever Resp: no sob, no cough CV: no chest, no FRANKEL, no leg edema GI: No n/v, no abd pain Neuro: No confusion skin: redness and sweeling of both legs Yes all other systems are reviewed and are negative [facility] Medical History Alcoholic steatohepatitis Anemia Ascending aortic aneurysm Chronic ulcer of leg Chronic venous stasis History of DVT of lower extremity History of rhabdomyolysis HTN (hypertension) Hx of lower gastrointestinal bleeding Hx of sepsis DEBORAH (obstructive sleep apnea) Seborrheic dermatitis Surgical History Hx of colonoscopy Social History Household Members: None Housing: Apartment 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 If so, by whom?: No Do you feel safe in your current relationship?: Yes Is there a partner from a previous relationship who is making you feel unsafe now?: No Are you made to feel afraid or neglected: No Advance Directives: Yes Advance Directives Information Provided: No Advance Directives on File: No Advance Directives Date on File: 01/22/22 Do you have thoughts of harming others: None Do you have a plan to hurt others: No Plan Recently lost weight without trying: No Nutrition Risks: No Nutritional Risk Poor oral hygiene: No Meds Allergies Allergy/AdvReac Type Severity Reaction Status Date / Time azithromycin [AZITHROMYCIN] Allergy Severe FACIAL Verified 11/30/21 09:19 SWELLING hydrochlorothiazide [HCTZ] Allergy Unknown UNKNOWN Verified 11/30/21 09:19 Active Medications: Current Medications Pharmacy Consult (Consult Rx Perform Med Rec) 1 each MISCELLANE ONCE PRN PRN Reason: Consult order Home Medications Medication Instructions Recorded Confirmed Last Taken Type allopurinol 300 mg tablet 300 mg PO DAILY 06/07/20 01/22/22 01/19/22 History ascorbic acid (vitamin C) 500 mg 500 mg PO BID 06/07/20 01/22/22 01/19/22 History tablet (Vitamin C) calcium carbonate 500 mg-vitamin 1 tab PO BID 06/07/20 01/22/22 01/19/22 History D3 3.125 mcg (125 unit) tablet magnesium oxide 400 mg PO BID 06/07/20 01/22/22 01/19/22 History torsemide 20 mg tablet 40 mg PO DAILY 06/07/20 01/22/22 01/21/22 History allopurinol 100 mg tablet 1 tab PO DAILY 01/22/22 01/22/22 01/19/22 History lisinopril 5 mg tablet 1 tab PO DAILY 01/22/22 01/22/22 01/19/22 History metoprolol succinate 50 mg 1 tab PO DAILY 01/22/22 01/22/22 01/19/22 History tablet,extended release 24 hr rosuvastatin 5 mg tablet 1 tab PO BEDTIME 01/22/22 01/22/22 01/19/22 History Physical Exam Vital Signs and Narrative: Vital Signs: Last Vital Signs Temp 99.1 F 01/22/22 08:53 Pulse 91 01/22/22 10:04 Resp 16 01/22/22 10:04 BP 151/76 H 01/22/22 10:04 Pulse Ox 100 01/22/22 10:04 BMI result Body Mass Index 47.5 Const: Other: Constitutional: Alert, in no distress, overweight. Mental Status: Oriented to person, place and time. Eyes: Pupils are equal, round and reactive to light. Ear, Nose and Throat: Oropharynx clear, mucous membranes moist. Ears and nose without eformities. Trachea midline. Respiratory: Clear to auscultation. No wheezing, rales or rhonchi. Cardiovascular: S1 S2 regular. No murmurs, rubs or gallops. Gastrointestinal: Abdomen soft, non-tender, non-distended. Normal bowel sounds.? Neurologic: Cranial nerves II-XII grossly intact. No focal neurological deficits. Moves all extremities spontaneously.? Skin: No rashes or lesions.? Musculoskeletal: No cyanosis or clubbing. Psychiatric: Normal mood and affect? Results Labs CBC and Chem 7: 01/22/22 09:28 01/22/22 09:28 Labs: Laboratory Results - last 24 hr 01/22/22 01/22/22 01/22/22 09:28 09:28 09:28 MCV 76.0 L MCH 23.2 L MCHC 30.5 L RDW 16.4 H Plt Count 217 MPV 8.7 L Immature Gran % (Auto) 0.5 H Neut % (Auto) 72.5 Lymph % (Auto) 14.1 L Addison % (Auto) 9.6 Eos % (Auto) 2.9 Baso % (Auto) 0.4 Lymph # (Auto) 1.6 Addison # (Auto) 1.1 Eos # (Auto) 0.3 Baso # (Auto) 0.1 Abs Immat Gran (auto) 0.06 H Absolute Neuts (auto) 8.1 Absolute Nucleated RBC 0.000 Nucleated RBC % (auto) 0.0 Anion Gap 17 Estim Creat Clear Calc 104.7 Estimated GFR > 60 Random Glucose 121 H Lactic Acid 1.2 Calcium 8.9 Total Bilirubin 1.6 H AST 20 ALT 16 Alkaline Phosphatase 115 D B-Natriuretic Peptide Total Protein 7.8 Albumin 4.1 COVID-19 (TORSTEN) COVID-19 Clin Com 01/22/22 01/22/22 09:28 10:08 MCV MCH MCHC RDW Plt Count MPV Immature Gran % (Auto) Neut % (Auto) Lymph % (Auto) Addison % (Auto) Eos % (Auto) Baso % (Auto) Lymph # (Auto) Addison # (Auto) Eos # (Auto) Baso # (Auto) Abs Immat Gran (auto) Absolute Neuts (auto) Absolute Nucleated RBC Nucleated RBC % (auto) Anion Gap Estim Creat Clear Calc Estimated GFR Random Glucose Lactic Acid Calcium Total Bilirubin AST ALT Alkaline Phosphatase B-Natriuretic Peptide 51 Total Protein Albumin COVID-19 (TORSTEN) Negative COVID-19 Clin Com See Note Imaging Radiologist's Impressions: Impressions Lower Extremity CT 01/22/22 10:35 IMPRESSION: Right Lower Extremity: Generalized nonspecific skin thickening. Abnormality in the subcutaneous soft tissues compatible with edema, cellulitis, or combination of these. No localized fluid collection or abscess. Chronic periosteal reaction distal tibia and fibula with a similar appearance noted on the left side. This most likely reflects reactive change related to venous insufficiency. Less likely this could be seen with hypertrophic osteoarthropathy Left Lower Extremity: Generalized nonspecific skin thickening slightly less than that noted on the right side. Abnormality the subcutaneous soft tissues compatible edema, cellulitis, or combination of these. No localized fluid collection or abscess. Chronic periosteal reaction distal tibia and fibula with a similar appearance noted on the right side. This most likely reflects reactive change related to venous insufficiency. Less likely this could be seen with hypertrophic osteoarthropathy. Lower Extremity CT 01/22/22 10:35 IMPRESSION: Right Lower Extremity: Generalized nonspecific skin thickening. Abnormality in the subcutaneous soft tissues compatible with edema, cellulitis, or combination of these. No localized fluid collection or abscess. Chronic periosteal reaction distal tibia and fibula with a similar appearance noted on the left side. This most likely reflects reactive change related to venous insufficiency. Less likely this could be seen with hypertrophic osteoarthropathy Left Lower Extremity: Generalized nonspecific skin thickening slightly less than that noted on the right side. Abnormality the subcutaneous soft tissues compatible edema, cellulitis, or combination of these. No localized fluid collection or abscess. Chronic periosteal reaction distal tibia and fibula with a similar appearance noted on the right side. This most likely reflects reactive change related to venous insufficiency. Less likely this could be seen with hypertrophic osteoarthropathy. Venous Duplex 01/22/22 11:55 IMPRESSION: No DVT demonstrated in either lower extremity. Prominent infra inguinal lymph nodes bilaterally. Chest X-Ray 01/22/22 12:21 IMPRESSION: No acute intrathoracic disease Assessment and Plan (1) Cellulitis: Status: Acute Plan 61 year old male with besity, HTN, HLD, history lower extremity DVT, chronic venous stasis with chronic erythema here with superimposed acute bilateral lower extremity cellulitis, right greater than left 1/juju lower extremity cellulitis--given Zosyn, add IV Doxy, ID consult, +/-wound consult 2/HTN--continue Lisinopril, Metoprolol 3/ HLD--Rozovastatin 4/ Obesity--contributing to all his health problem, weight loss advised 5/ Anemia--likely of chronic disease, no active bleed 6/Chronic Heart Failures NOS--compensated, continue Torsemide 7/ h/o of gout--continue Allopurinol [facility] midnight for IV Abx for cellulitis covering more than 50% of legs Quality Stroke Does the patient have a stroke diagnosis?: No VTE Prior VTE?: Yes VTE Risk Level:: Medical - moderate - high VTE Device Contraindication: Procedure Contraindicated VTE Drug Contraindication: N/A - Med Ordered
[2022-01-22 14:59] VITALS: BP 146/64; PULSE 91; RESP 18; O2SAT 97
[2022-01-22] MEDS: Morphine Sulfate 4 MG/ML CARTRIDGE IVPUSH (15:03)
[2022-01-22] MEDS: ondansetron HCL 4 MG/2 ML VIAL IVPUSH (15:03)
[2022-01-22] MEDS: Enoxaparin Sodium 40 MG/0.4 ML SYRINGE SUBCUT (16:13)
[2022-01-22] MEDS: Piperacillin Sodium/Tazobactam 3.375 GM in 0.9 % Sodium Chloride 50 ML IV ×2 (16:13→21:29)
[2022-01-22] MEDS: 0.9 % Sodium Chloride Flush 3 ML SYRINGE IVFLUSH ×2 (16:14→21:30)
--- NOTE | 2022-01-22 16:35 | PC.NURSE ---
pt arrives to overflow at this time. bed 9 assigned and plan to obtain hospital bed.
[2022-01-22] MEDS: Doxycycline Hyclate 100 MG in 0.9 % Sodium Chloride 250 ML 166.67 MG IV (17:01)
[2022-01-22 17:51] VITALS: BP 150/73; PULSE 75; RESP 18; TEMP 36.7; O2SAT 100
[2022-01-23] VITALS (7 sets, daily range): BP systolic 128–171; BP diastolic 60–88; PULSE 58–78; RESP 16–18; TEMP 36.3–37.2; O2SAT 92–100
[2022-01-23] MEDS: Piperacillin Sodium/Tazobactam 3.375 GM in 0.9 % Sodium Chloride 50 ML IV ×2 (03:36→10:33)
[2022-01-23] MEDS: Doxycycline Hyclate 100 MG in 0.9 % Sodium Chloride 250 ML 166.67 MG IV (04:03)
[2022-01-23] MEDS: 0.9 % Sodium Chloride Flush 3 ML SYRINGE IVFLUSH ×3 (07:26→19:39)
--- NOTE | 2022-01-23 08:48 | P.PNIM_ITS ---
Subjective Subjective Date of Service: 01/23/22 Interval History: follow-up on bilateral leg cellulitis. Interval history; mild improvement. Constitutional swelling, pain, and redness of legs, no fever Physical Exam Vital Signs: Vital Signs: Last Vital Signs Temp 97.7 F 01/23/22 07:53 Pulse 77 01/23/22 07:53 Resp 18 01/23/22 07:53 BP 139/71 01/23/22 07:53 Pulse Ox 92 01/23/22 07:53 BMI result Body Mass Index 47.5 Const: Other: General: AO X 3, no acute distress Resp: CTA bilateral CVS: S1,S2,RRR GI: +BS, NT, no distention Skin: swelling, redness--see pic from H and P Neuro: motor grossly intact Psych: appropriate affect Objective Data Active Medications Enoxaparin Sodium (Enoxaparin Sodium 40 Mg/0.4 Ml Syringe) 40 mg SUBCUT Q24H [facility] Last Admin: 01/22/22 16:13 Dose: 40 mg Documented by: ANDERSON Hydromorphone HCl (Hydromorphone Hcl 1 Mg/Ml Syringe) 0.5 mg IVPUSH Q4H PRN; Protocol PRN Reason: Pain, Severe (Pain Scale 7-10) Doxycycline Hyclate 100 mg/ (Sodium Chloride) 250 mls @ 166.67 mls/hr IV Q12H [facility] Last Infusion: 01/23/22 05:59 Dose: 0 mls/hr Documented by: VIJAY Piperacillin Sod/Tazobactam (Sod 3.375 gm/ Sodium Chloride) 50 mls @ 100 mls/hr IV Q6H [facility] Last Infusion: 01/23/22 04:09 Dose: 0 mls/hr Documented by: VIJAY Pharmacy Consult (Consult Rx Perform Med Rec) 1 each MISCELLANE ONCE PRN PRN Reason: Consult order Sodium Chloride (0.9 % Sodium Chloride Flush 3 Ml Syringe) 3 ml IVFLUSH QSHIFT [facility] Last Admin: 01/23/22 07:26 Dose: 3 ml Documented by: KIA Labs CBC & Chem 7: 01/22/22 09:28 01/22/22 09:28 Labs: Laboratory Results - last 24 hr 01/22/22 01/22/22 01/22/22 09:28 09:28 09:28 MCV 76.0 L MCH 23.2 L MCHC 30.5 L RDW 16.4 H Plt Count 217 MPV 8.7 L Immature Gran % (Auto) 0.5 H Neut % (Auto) 72.5 Lymph % (Auto) 14.1 L Cassia % (Auto) 9.6 Eos % (Auto) 2.9 Baso % (Auto) 0.4 Lymph # (Auto) 1.6 Cassia # (Auto) 1.1 Eos # (Auto) 0.3 Baso # (Auto) 0.1 Abs Immat Gran (auto) 0.06 H Absolute Neuts (auto) 8.1 Absolute Nucleated RBC 0.000 Nucleated RBC % (auto) 0.0 Anion Gap 17 Estim Creat Clear Calc 104.7 Estimated GFR > 60 Random Glucose 121 H Lactic Acid 1.2 Calcium 8.9 Total Bilirubin 1.6 H AST 20 ALT 16 Alkaline Phosphatase 115 D B-Natriuretic Peptide Total Protein 7.8 Albumin 4.1 COVID-19 (TORSTEN) COVID-19 [place] 01/22/22 01/22/22 09:28 10:08 MCV MCH MCHC RDW Plt Count MPV Immature Gran % (Auto) Neut % (Auto) Lymph % (Auto) Cassia % (Auto) Eos % (Auto) Baso % (Auto) Lymph # (Auto) Cassia # (Auto) Eos # (Auto) Baso # (Auto) Abs Immat Gran (auto) Absolute Neuts (auto) Absolute Nucleated RBC Nucleated RBC % (auto) Anion Gap Estim Creat Clear Calc Estimated GFR Random Glucose Lactic Acid Calcium Total Bilirubin AST ALT Alkaline Phosphatase B-Natriuretic Peptide 51 Total Protein Albumin COVID-19 (TORSTEN) Negative COVID-19 Clin Com See Note Assessment and Plan (1) Cellulitis: Status: Acute (2) Anemia: Status: Chronic Plan 61 year old male with besity, HTN, HLD, history lower extremity DVT, chronic venous stasis with chronic erythema here with superimposed acute bilateral lower extremity cellulitis, right greater than left 1/juju lower extremity cellulitis -Zosyn, and IV Doxy, ID consult, wound consult 2/HTN--continue Lisinopril, Metoprolol 3/ HLD--Rozovastatin 4/ Obesity--contributing to all his health problem, weight loss advised 5/ Anemia--likely of chronic disease, no active bleed 6/Chronic Heart Failures NOS--compensated, continue Torsemide 7/ h/o of gout--continue Allopurinol DVT prophylaxis:Lovenox Need for inpatient: Extensive cellulitis of the feed that need IV Abx for proper resolution Quality Stroke Does the patient have a stroke diagnosis?: No VTE Prior VTE?: Yes VTE Risk Level:: Medical - moderate - high VTE Device Contraindication: Procedure Contraindicated VTE Drug Contraindication: N/A - Med Ordered
--- NOTE | 2022-01-23 09:35 | P.CDIC_ITS ---
CDI Concurrent Query Documentation Clarification: PHYSICIAN'S DOCUMENTATION REQUEST Date of Query: 01/23/22 0935 Patient Name: Mohan Gonzalez Admit Date: 01/22/22 Dear Doctor, A review of the medical record indicates additional documentation may be needed. Please review below and update the documentation accordingly. Risk Factors/Clinical Indicators/Treatments BMI: 47.5 PN: 01/22 - Obesity contributing to all his health problems. PMH: Extreme obesity class III If possible, please provide an associated diagnosis related to the abnormal BMI, such as: For a BMI >= 40: * Obesity * Due to excess calories * Drug induced * Due to other cause * Severe or Morbid Obesity * With alveolar hypoventilation * Without alveolar hypoventilation Or: * BMI is not significant * Other (please specify) * Unable to determine Use of terms such as suspected, likely, concern for, or probable (associated with a specific diagnosis that is being evaluated, monitored, or treated as if it exists) are acceptable and can be coded in the inpatient setting, when documented at the time of discharge. Thank you, Tuyet Cabral [facility] [place], CDIS Extension: [phone] Please use your independent medical judgment in providing your response. THIS QUERY IS PART OF THE PERMANENT MEDICAL RECORD Provider Response: Morbid Obesity Other Diagnosis: Severe morbid obesity
--- NOTE | 2022-01-23 09:35 | MHC.CDI.CONC ---
CDI Concurrent Query Documentation Clarification: PHYSICIAN'S DOCUMENTATION REQUEST Date of Query: 01/23/22 0935 Patient Name: Mohan Gonzalez Admit Date: 01/22/22 Dear Doctor, A review of the medical record indicates additional documentation may be needed. Please review below and update the documentation accordingly. Risk Factors/Clinical Indicators/Treatments BMI: 47.5 PN: 01/22 - Obesity contributing to all his health problems. PMH: Extreme obesity class III If possible, please provide an associated diagnosis related to the abnormal BMI, such as: For a BMI >= 40: Obesity Due to excess calories Drug induced Due to other cause Severe or Morbid Obesity With alveolar hypoventilation Without alveolar hypoventilation Or: BMI is not significant Other (please specify) Unable to determine Use of terms such as suspected, likely, concern for, or probable (associated with a specific diagnosis that is being evaluated, monitored, or treated as if it exists) are acceptable and can be coded in the inpatient setting, when documented at the time of discharge. Thank you, Tuyet Cabral [facility], CDIS Extension: [phone] Please use your independent medical judgment in providing your response. THIS QUERY IS PART OF THE PERMANENT MEDICAL RECORD Provider Response: Morbid Obesity Other Diagnosis: Severe morbid obesity
[2022-01-23] MEDS: allopurinoL 300 MG TABLET PO (10:32)
[2022-01-23] MEDS: Metoprolol Succinate ER 50 MG TAB.ER.24H PO (10:32)
[2022-01-23] MEDS: lisinopriL 5 MG TABLET PO (10:32)
[2022-01-23] MEDS: Torsemide 20 MG TABLET 40 MG PO (10:32)
[2022-01-23] MEDS: allopurinoL 100 MG TABLET PO (10:33)
[2022-01-23] MEDS: Ascorbic Acid 500 MG TABLET PO ×2 (10:33→19:36)
[2022-01-23] MEDS: Magnesium Oxide 400 MG TABLET PO ×2 (12:56→18:29)
[2022-01-23] MEDS: HYDROmorphone HCl 1 MG/ML SYRINGE 0.5 MG IVPUSH ×2 (12:56→19:39)
--- NOTE | 2022-01-23 13:26 | HO.WOUNDCONS ---
History of Present Illness Data of Consult Service Date: 01/23/22 Requesting physician: Jeff Alberts Primary Care Provider: Samantha Gonzales MD [facility] Reason for consult: bilateral leg wounds 61-year-old male discharge from wound care few months ago with a healed lower extremity wounds in the setting of venous insufficiency and obesity. He tells me that the last 2 visits with home nursing have not gone well because the wraps replaced too tightly. He then remove them and in turn got more swelling in his right leg. Was admitted for redness particularly in the right leg and has been on IV antibiotics. He is having some right anterior hip pain right now. He is having some difficulty walking because of the swelling in his leg. Denies fever. Denies back pain. No urinary difficulties. 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 If so, by whom?: No Do you feel safe in your current relationship?: Yes Is there a partner from a previous relationship who is making you feel unsafe now?: No Are you made to feel afraid or neglected: No Advance Directives: Yes Advance Directives Information Provided: No Advance Directives on File: No Advance Directives Date on File: 01/22/22 Do you have thoughts of harming others: None Do you have a plan to hurt others: No Plan Recently lost weight without trying: No Nutrition Risks: No Nutritional Risk Poor oral hygiene: No Meds Allergies Allergy/AdvReac Type Severity Reaction Status Date / Time azithromycin [AZITHROMYCIN] Allergy Severe FACIAL Verified 11/30/21 09:19 SWELLING hydrochlorothiazide [HCTZ] Allergy Unknown UNKNOWN Verified 11/30/21 09:19 Active Medications: Current Medications Allopurinol (Allopurinol 100 Mg Tablet) 100 mg PO DAILY [facility] Last Admin: 01/23/22 10:33 Dose: 100 mg Documented by: Allopurinol (Allopurinol 300 Mg Tablet) 300 mg PO DAILY [facility] Last Admin: 01/23/22 10:32 Dose: 300 mg Documented by: Ascorbic Acid (Ascorbic Acid 500 Mg Tablet) 500 mg PO BID [facility] Last Admin: 01/23/22 10:33 Dose: 500 mg Documented by: Atorvastatin Calcium (Atorvastatin Calcium 20 Mg Tablet) 20 mg PO BEDTIME [facility] Calcium Carbonate/Cholecalciferol (Calcium + Vitamin D 250 Mg Tablet) 500 mg PO BID [facility] Enoxaparin Sodium (Enoxaparin Sodium 40 Mg/0.4 Ml Syringe) 40 mg SUBCUT Q24H [facility] Last Admin: 01/22/22 16:13 Dose: 40 mg Documented by: Ferrous Sulfate (Ferrous Sulfate 324 Mg Tablet.Dr) 324 mg PO BID [facility] Hydromorphone HCl (Hydromorphone Hcl 1 Mg/Ml Syringe) 0.5 mg IVPUSH Q4H PRN; Protocol PRN Reason: Pain, Severe (Pain Scale 7-10) Last Admin: 01/23/22 12:56 Dose: 0.5 mg Documented by: Doxycycline Hyclate 100 mg/ (Sodium Chloride) 250 mls @ 166.67 mls/hr IV Q12H [facility] Last Infusion: 01/23/22 05:59 Dose: Infused Documented by: Piperacillin Sod/Tazobactam (Sod 3.375 gm/ Sodium Chloride) 50 mls @ 100 mls/hr IV Q6H [facility] Last Infusion: 01/23/22 11:27 Dose: Infused Documented by: Lisinopril (Lisinopril 5 Mg Tablet) 5 mg PO DAILY [facility]; Protocol Last Admin: 01/23/22 10:32 Dose: 5 mg Documented by: Magnesium Oxide (Magnesium Oxide 400 Mg Tablet) 400 mg PO BID@0700,1900 [facility] Last Admin: 01/23/22 12:56 Dose: 400 mg Documented by: Metoprolol Succinate (Metoprolol Succinate Er 50 Mg Tab.Er.24h) 50 mg PO DAILY [facility]; Protocol Last Admin: 01/23/22 10:32 Dose: 50 mg Documented by: Pharmacy Consult (Consult Rx Perform Med Rec) 1 each MISCELLANE ONCE PRN PRN Reason: Consult order Sodium Chloride (0.9 % Sodium Chloride Flush 3 Ml Syringe) 3 ml IVFLUSH QSHIFT [facility] Last Admin: 01/23/22 07:26 Dose: 3 ml Documented by: Torsemide (Torsemide 20 Mg Tablet) 40 mg PO DAILY [facility]; Protocol Last Admin: 01/23/22 10:32 Dose: 40 mg Documented by: Home Medications Medication Instructions Recorded Confirmed Last Taken Type allopurinol 300 mg tablet 300 mg PO DAILY 06/07/20 01/22/22 01/19/22 History ascorbic acid (vitamin C) 500 mg 500 mg PO BID 06/07/20 01/22/22 01/19/22 History tablet (Vitamin C) calcium carbonate 500 mg-vitamin 1 tab PO BID 06/07/20 01/22/22 01/19/22 History D3 3.125 mcg (125 unit) tablet magnesium oxide 400 mg PO BID 06/07/20 01/22/22 01/19/22 History torsemide 20 mg tablet 40 mg PO DAILY 06/07/20 01/22/22 01/21/22 History allopurinol 100 mg tablet 1 tab PO DAILY 01/22/22 01/22/22 01/19/22 History lisinopril 5 mg tablet 1 tab PO DAILY 01/22/22 01/22/22 01/19/22 History metoprolol succinate 50 mg 1 tab PO DAILY 01/22/22 01/22/22 01/19/22 History tablet,extended release 24 hr rosuvastatin 5 mg tablet 1 tab PO BEDTIME 01/22/22 01/22/22 01/19/22 History Physical Exam Vital Signs and Narrative: Vital Signs: Last Vital Signs Temp 98.1 F 01/23/22 12:00 Pulse 69 01/23/22 12:00 Resp 18 01/23/22 12:00 BP 132/67 01/23/22 12:00 Pulse Ox 99 01/23/22 12:00 BMI result Body Mass Index 47.5 I do not see any evidence of active cellulitis. There is no warmth to touch in the lower extremities. There is no redness or streaking. He has chronic venous stasis history but is legs are dry today. The area on the right proximal lateral leg that looks like it might be wound is actually intact and dried eschar. It does not express any fluid. His edema isrelatively well controlled in the left leg. The right foot is swollen in the absence of reported trauma. The dorsalis pedis pulses difficult to palpate because of the swelling. Results Labs CBC and Chem 7: 01/22/22 09:28 01/22/22 09:28 Imaging Radiologist's Impressions: Impressions Lower Extremity CT 01/22/22 10:35 IMPRESSION: Right Lower Extremity: Generalized nonspecific skin thickening. Abnormality in the subcutaneous soft tissues compatible with edema, cellulitis, or combination of these. No localized fluid collection or abscess. Chronic periosteal reaction distal tibia and fibula with a similar appearance noted on the left side. This most likely reflects reactive change related to venous insufficiency. Less likely this could be seen with hypertrophic osteoarthropathy Left Lower Extremity: Generalized nonspecific skin thickening slightly less than that noted on the right side. Abnormality the subcutaneous soft tissues compatible edema, cellulitis, or combination of these. No localized fluid collection or abscess. Chronic periosteal reaction distal tibia and fibula with a similar appearance noted on the right side. This most likely reflects reactive change related to venous insufficiency. Less likely this could be seen with hypertrophic osteoarthropathy. Lower Extremity CT 01/22/22 10:35 IMPRESSION: Right Lower Extremity: Generalized nonspecific skin thickening. Abnormality in the subcutaneous soft tissues compatible with edema, cellulitis, or combination of these. No localized fluid collection or abscess. Chronic periosteal reaction distal tibia and fibula with a similar appearance noted on the left side. This most likely reflects reactive change related to venous insufficiency. Less likely this could be seen with hypertrophic osteoarthropathy Left Lower Extremity: Generalized nonspecific skin thickening slightly less than that noted on the right side. Abnormality the subcutaneous soft tissues compatible edema, cellulitis, or combination of these. No localized fluid collection or abscess. Chronic periosteal reaction distal tibia and fibula with a similar appearance noted on the right side. This most likely reflects reactive change related to venous insufficiency. Less likely this could be seen with hypertrophic osteoarthropathy. Assessment and Plan (1) Chronic venous stasis: Status: Acute Plan 61-year-old male with chronic venous insufficiency and history of ablation who benefits from chronic edema management with Davide wraps. I do not see any reason why the can be placed as soon as he is comfortable, unless there is a cardiac contraindication. I did not see a BNP in his chart. If ammonium lactate is available for flaking epithelium this could be utilized as well. No areas of opening or weeping. Patient is agreeable to facility transfer after acute hospitalization to help with mobility which seems to be is primary obstacle at this point. He can followup in the wound clinic if any drainage or ulceration occurs in the bilateral lower legs after hospital/facility discharge. I
--- NOTE | 2022-01-23 14:04 | W.PM.IDCN ---
History of Present Illness Data of Consult Service Date: 01/23/22 Requesting physician: Jeff Alberts Primary Care Provider: Samantha Gonzales MD HPI Reason for consult: bilateral leg redness He presents with bilateral leg redness. He has had venous stasis changes and sees Wound Care for chronic wounds related to venous stasis changes which he admits are about the same. He is bothered by discomfort in right hip causing him to sit in same spot and have pain in hip area. He has no fever or chills or leukocytosis. Review of Systems Review of Systems: Yes all other systems are reviewed and are negative [facility] Past Medical History Medical History Alcoholic steatohepatitis Anemia Ascending aortic aneurysm Chronic ulcer of leg Chronic venous stasis History of DVT of lower extremity History of rhabdomyolysis HTN (hypertension) Hx of lower gastrointestinal bleeding Hx of sepsis DEBORAH (obstructive sleep apnea) Seborrheic dermatitis Family History Family history: reviewed and not pertinent Surgical History Surgical History Hx of colonoscopy Social History Social History Household Members: None Housing: Apartment 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 If so, by whom?: No Do you feel safe in your current relationship?: Yes Is there a partner from a previous relationship who is making you feel unsafe now?: No Are you made to feel afraid or neglected: No Advance Directives: Yes Advance Directives Information Provided: No Advance Directives on File: No Advance Directives Date on File: 01/22/22 Do you have thoughts of harming others: None Do you have a plan to hurt others: No Plan Recently lost weight without trying: No Nutrition Risks: No Nutritional Risk Poor oral hygiene: No Meds Allergies Allergy/AdvReac Type Severity Reaction Status Date / Time azithromycin [AZITHROMYCIN] Allergy Severe FACIAL Verified 11/30/21 09:19 SWELLING hydrochlorothiazide [HCTZ] Allergy Unknown UNKNOWN Verified 11/30/21 09:19 Active Medications: Current Medications Allopurinol (Allopurinol 100 Mg Tablet) 100 mg PO DAILY [facility] Last Admin: 01/23/22 10:33 Dose: 100 mg Documented by: Allopurinol (Allopurinol 300 Mg Tablet) 300 mg PO DAILY [facility] Last Admin: 01/23/22 10:32 Dose: 300 mg Documented by: Ascorbic Acid (Ascorbic Acid 500 Mg Tablet) 500 mg PO BID [facility] Last Admin: 01/23/22 10:33 Dose: 500 mg Documented by: Atorvastatin Calcium (Atorvastatin Calcium 20 Mg Tablet) 20 mg PO BEDTIME [facility] Calcium Carbonate/Cholecalciferol (Calcium + Vitamin D 250 Mg Tablet) 500 mg PO BID [facility] Enoxaparin Sodium (Enoxaparin Sodium 40 Mg/0.4 Ml Syringe) 40 mg SUBCUT Q24H [facility] Last Admin: 01/22/22 16:13 Dose: 40 mg Documented by: Ferrous Sulfate (Ferrous Sulfate 324 Mg Tablet.Dr) 324 mg PO BID [facility] Hydromorphone HCl (Hydromorphone Hcl 1 Mg/Ml Syringe) 0.5 mg IVPUSH Q4H PRN; Protocol PRN Reason: Pain, Severe (Pain Scale 7-10) Last Admin: 01/23/22 12:56 Dose: 0.5 mg Documented by: Lisinopril (Lisinopril 5 Mg Tablet) 5 mg PO DAILY [facility]; Protocol Last Admin: 01/23/22 10:32 Dose: 5 mg Documented by: Magnesium Oxide (Magnesium Oxide 400 Mg Tablet) 400 mg PO BID@0700,1900 [facility] Last Admin: 01/23/22 12:56 Dose: 400 mg Documented by: Metoprolol Succinate (Metoprolol Succinate Er 50 Mg Tab.Er.24h) 50 mg PO DAILY [facility]; Protocol Last Admin: 01/23/22 10:32 Dose: 50 mg Documented by: Pharmacy Consult (Consult Rx Perform Med Rec) 1 each MISCELLANE ONCE PRN PRN Reason: Consult order Sodium Chloride (0.9 % Sodium Chloride Flush 3 Ml Syringe) 3 ml IVFLUSH QSHIFT [facility] Last Admin: 01/23/22 07:26 Dose: 3 ml Documented by: Torsemide (Torsemide 20 Mg Tablet) 40 mg PO DAILY [facility]; Protocol Last Admin: 01/23/22 10:32 Dose: 40 mg Documented by: Home Medications Medication Instructions Recorded Confirmed Last Taken Type allopurinol 300 mg tablet 300 mg PO DAILY 06/07/20 01/22/22 01/19/22 History ascorbic acid (vitamin C) 500 mg 500 mg PO BID 06/07/20 01/22/22 01/19/22 History tablet (Vitamin C) calcium carbonate 500 mg-vitamin 1 tab PO BID 06/07/20 01/22/22 01/19/22 History D3 3.125 mcg (125 unit) tablet magnesium oxide 400 mg PO BID 06/07/20 01/22/22 01/19/22 History torsemide 20 mg tablet 40 mg PO DAILY 06/07/20 01/22/22 01/21/22 History allopurinol 100 mg tablet 1 tab PO DAILY 01/22/22 01/22/22 01/19/22 History lisinopril 5 mg tablet 1 tab PO DAILY 01/22/22 01/22/22 01/19/22 History metoprolol succinate 50 mg 1 tab PO DAILY 01/22/22 01/22/22 01/19/22 History tablet,extended release 24 hr rosuvastatin 5 mg tablet 1 tab PO BEDTIME 01/22/22 01/22/22 01/19/22 History Physical Exam Vital Signs: Vital Signs: Last Vital Signs Temp 98.1 F 01/23/22 12:00 Pulse 69 01/23/22 12:00 Resp 18 01/23/22 12:00 BP 132/67 01/23/22 12:00 Pulse Ox 99 01/23/22 12:00 BMI result Body Mass Index 47.5 Const: General: cooperative HEENT: Head: Yes normal to inspection Mouth: Normal oral and palatal mucosa present Resp: Effort & Inspection: normal respiratory effort Cardio: Rate: regular rate Rhythm: regular rhythm GI: Inspection: Yes normal to inspection Extrem: Other: chronic venous stasis changes,right more than left,some bleeding area more irritated right rajput Results Labs CBC & Chem 7: 01/22/22 09:28 01/22/22 09:28 Microbiology Microbiology Results: Microbiology 01/22/22 09:34 Blood - Venous Blood Culture - Preliminary No growth after 24 hours. 01/22/22 09:28 Blood - Venous Blood Culture - Preliminary No growth after 24 hours. Assessment and Plan (1) Chronic venous stasis: Status: Acute There seems to be no areas of cellulitis with no acute changes of significance at this point in time He is being seen by Wound Care team Mostly venous stasis changes with some hip pain and acute issues caused by increasing limb swelling. Cellulitis requiring antibiotics also is very rarely bilateral. Plan Hold antibiotics at this time. Compression and elevation and local care. Pain management prn need hip discomfoft.
--- NOTE | 2022-01-23 14:48 | MHC.CM.PN ---
Addendum entered by Suzi Lennon 01/23/22 15:25: PATIENT HAS DAILY RN SKILLS WITH [facility] SERVICE REFERRAL PLACED FOR AGENCY TO FOLLOW [facility] PAPERWORK PLACED IN CHART Original Note: HCP ON FILE IS NOT VALID. CASE MANAGEMENT TO ASSIST WITH COMPLETION OF NEW HCP. CURRENTLY DOES NOT USE A CANE OR WALKER BUT FEELS HE MAY NEED THESE DEVICES. HE USES [facility] FOR MONTHLY B-12 INJECTIONS PATIENT RELIES ON PUBLIC TRANSPORT OR HE WALKS WHERE NEEDED. COVID VACCINATED X 3. CASE MANAGEMENT FOLLOWING FOR DC PLAN
[2022-01-23] MEDS: Enoxaparin Sodium 40 MG/0.4 ML SYRINGE SUBCUT (16:31)
[2022-01-23] MEDS: Ferrous Sulfate 324 MG TABLET.DR PO (19:36)
[2022-01-23] MEDS: Atorvastatin Calcium 20 MG TABLET PO (19:36)
[2022-01-23] MEDS: Calcium + Vitamin D 250 MG TABLET 500 MG PO (19:36)
[2022-01-24 03:13] VITALS: BP 124/57; PULSE 72; RESP 16; TEMP 37.1; O2SAT 92
[2022-01-24] MEDS: Magnesium Oxide 400 MG TABLET PO ×2 (07:20→18:31)
[2022-01-24] MEDS: 0.9 % Sodium Chloride Flush 3 ML SYRINGE IVFLUSH ×3 (07:20→21:33)
[2022-01-24 07:38] VITALS: BP 141/69; PULSE 65; RESP 18; TEMP 36.9; O2SAT 93
[2022-01-24] MEDS: Torsemide 20 MG TABLET 40 MG PO (09:43)
[2022-01-24] MEDS: allopurinoL 300 MG TABLET PO (09:43)
[2022-01-24] MEDS: allopurinoL 100 MG TABLET PO (09:43)
[2022-01-24] MEDS: Ascorbic Acid 500 MG TABLET PO ×2 (09:43→21:32)
[2022-01-24] MEDS: Metoprolol Succinate ER 50 MG TAB.ER.24H PO (09:43)
[2022-01-24] MEDS: Calcium + Vitamin D 250 MG TABLET 500 MG PO ×2 (09:43→21:32)
[2022-01-24] MEDS: lisinopriL 5 MG TABLET PO (09:43)
[2022-01-24] MEDS: Ferrous Sulfate 324 MG TABLET.DR PO ×2 (09:43→21:33)
--- NOTE | 2022-01-24 10:11 | HO.PM.IMPN ---
Subjective Subjective Date of Service: 01/24/22 Interval History: follow-up on bilateral leg cellulitis. Interval history: legs are better, but has difficulty walking d/t pulled muscle Review of Systems Gen: no fever Resp: no sob, no cough CV: no chest, no FRANKEL, no leg edema GI: No n/v, no abd pain Neuro: No confusion skin: redness and sweeling of both legs Physical Exam Vital Signs: Vital Signs: Last Vital Signs Temp 98.5 F 01/24/22 07:38 Pulse 65 01/24/22 07:38 Resp 18 01/24/22 07:38 BP 141/69 H 01/24/22 07:38 Pulse Ox 93 01/24/22 07:38 O2 Del Method 01/24/22 07:38 BMI result Body Mass Index 47.5 Const: Other: General: AO X 3, no acute distress Resp: CTA bilateral CVS: S1,S2,RRR GI: +BS, NT, no distention Skin: swelling, redness--see pic from H and P Neuro: motor grossly intact Psych: appropriate affect Objective Data Active Medications Allopurinol (Allopurinol 100 Mg Tablet) 100 mg PO DAILY [facility] Last Admin: 01/24/22 09:43 Dose: 100 mg Documented By: KIA Allopurinol (Allopurinol 300 Mg Tablet) 300 mg PO DAILY [facility] Last Admin: 01/24/22 09:43 Dose: 300 mg Documented By: KIA Ascorbic Acid (Ascorbic Acid 500 Mg Tablet) 500 mg PO BID [facility] Last Admin: 01/24/22 09:43 Dose: 500 mg Documented By: KIA Atorvastatin Calcium (Atorvastatin Calcium 20 Mg Tablet) 20 mg PO BEDTIME [facility] Last Admin: 01/23/22 19:36 Dose: 20 mg Documented By: FRANK Calcium Carbonate/Cholecalciferol (Calcium + Vitamin D 250 Mg Tablet) 500 mg PO BID [facility] Last Admin: 01/24/22 09:43 Dose: 500 mg Documented By: KIA Enoxaparin Sodium (Enoxaparin Sodium 40 Mg/0.4 Ml Syringe) 40 mg SUBCUT Q24H [facility] Last Admin: 01/23/22 16:31 Dose: 40 mg Documented By: KIA Ferrous Sulfate (Ferrous Sulfate 324 Mg Tablet.) 324 mg PO BID [facility] Last Admin: 01/24/22 09:43 Dose: 324 mg Documented By: KIA Hydromorphone HCl (Hydromorphone Hcl 1 Mg/Ml Syringe) 0.5 mg IVPUSH Q4H PRN; Protocol PRN Reason: Pain, Severe (Pain Scale 7-10) Last Admin: 01/23/22 19:39 Dose: 0.5 mg Documented By: FRANK Lisinopril (Lisinopril 5 Mg Tablet) 5 mg PO DAILY [facility]; Protocol Last Admin: 01/24/22 09:43 Dose: 5 mg Documented By: KIA Magnesium Oxide (Magnesium Oxide 400 Mg Tablet) 400 mg PO BID@0700,1900 [facility] Last Admin: 01/24/22 07:20 Dose: 400 mg Documented By: KIA Metoprolol Succinate (Metoprolol Succinate Er 50 Mg Tab.Er.24h) 50 mg PO DAILY [facility]; Protocol Last Admin: 01/24/22 09:43 Dose: 50 mg Documented By: KIA Pharmacy Consult (Consult Rx Perform Med Rec) 1 each MISCELLANE ONCE PRN PRN Reason: Consult order Sodium Chloride (0.9 % Sodium Chloride Flush 3 Ml Syringe) 3 ml IVFLUSH QSHIFT [facility] Last Admin: 01/24/22 07:20 Dose: 3 ml Documented By: KIA Torsemide (Torsemide 20 Mg Tablet) 40 mg PO DAILY [facility]; Protocol Last Admin: 01/24/22 09:43 Dose: 40 mg Documented By: KIA Labs CBC & Chem 7: 01/22/22 09:28 01/22/22 09:28 Microbiology Microbiology Results: Microbiology 01/22/22 09:34 Blood Culture - Preliminary Blood - Venous No growth after 24 hours. 01/22/22 09:28 Blood Culture - Preliminary Blood - Venous No growth after 24 hours. Assessment and Plan (1) Cellulitis: Status: Acute (2) Anemia: Status: Chronic Plan 61 year old male with besity, HTN, HLD, history lower extremity DVT, chronic venous stasis with chronic erythema here with superimposed acute bilateral lower extremity cellulitis, right greater than left 1/juju lower extremity redness/chronic venous stasis -No clear evidence of infection so ID recommends no Abx -Wound Care and ID input noted -Ammonium lactated application to legs 2/HTN--continue Lisinopril, Metoprolol 3/ HLD--Rozovastatin 4/ Obesity--contributing to all his health problem, weight loss advised 5/ Anemia--likely of chronic disease, no active bleed 6/Chronic Heart Failures NOS--compensated, continue Torsemide 7/ h/o of gout--continue Allopurinol DVT prophylaxis:Lovenox PT eval Need for inpatient: Unable to walk and needs placement Quality Stroke Does the patient have a stroke diagnosis?: No VTE Prior VTE?: Yes VTE Risk Level:: Medical - moderate - high VTE Device Contraindication: Procedure Contraindicated VTE Drug Contraindication: N/A - Med Ordered
[2022-01-24 11:48] VITALS: BP 141/69; PULSE 65; O2SAT 93
[2022-01-24 15:30] VITALS: BP 148/68; PULSE 84; RESP 18; TEMP 37.9; O2SAT 96
[2022-01-24] MEDS: Enoxaparin Sodium 40 MG/0.4 ML SYRINGE SUBCUT (16:03)
[2022-01-24 19:18] VITALS: BP 137/75; PULSE 76; RESP 17; TEMP 37.4; O2SAT 93
[2022-01-24] MEDS: Atorvastatin Calcium 20 MG TABLET PO (21:32)
[2022-01-24 23:37] VITALS: BP 132/64; PULSE 67; RESP 18; TEMP 37.6; O2SAT 92
[2022-01-25] VITALS (7 sets, daily range): BP systolic 122–164; BP diastolic 67–73; PULSE 60–75; RESP 17–18; TEMP 36.9–37.7; O2SAT 93–96
[2022-01-25] MEDS: Magnesium Oxide 400 MG TABLET PO ×2 (06:01→17:12)
[2022-01-25] MEDS: Calcium + Vitamin D 250 MG TABLET 500 MG PO ×2 (08:28→19:58)
[2022-01-25] MEDS: lisinopriL 5 MG TABLET PO (08:29)
[2022-01-25] MEDS: Ascorbic Acid 500 MG TABLET PO ×2 (08:29→19:58)
[2022-01-25] MEDS: Ferrous Sulfate 324 MG TABLET.DR PO ×2 (08:29→19:58)
[2022-01-25] MEDS: Torsemide 20 MG TABLET 40 MG PO (08:29)
[2022-01-25] MEDS: allopurinoL 300 MG TABLET PO (08:29)
[2022-01-25] MEDS: allopurinoL 100 MG TABLET PO (08:29)
[2022-01-25] MEDS: Metoprolol Succinate ER 50 MG TAB.ER.24H PO (08:29)
[2022-01-25] MEDS: 0.9 % Sodium Chloride Flush 3 ML SYRINGE IVFLUSH ×3 (08:32→19:58)
--- NOTE | 2022-01-25 10:25 | HO.PM.IMPN ---
Subjective Subjective Date of Service: 01/25/22 Interval History: follow-up on bilateral leg cellulitis. Interval history: Still with difficulty walking. Review of Systems Gen: no fever Resp: no sob, no cough CV: no chest, no FRANKEL, no leg edema GI: No n/v, no abd pain Neuro: No confusion skin: redness and sweeling of both legs Physical Exam Vital Signs: Vital Signs: Last Vital Signs Temp 98.6 F 01/25/22 07:28 Pulse 70 01/25/22 07:28 Resp 18 01/25/22 07:28 BP 147/71 H 01/25/22 07:28 Pulse Ox 95 01/25/22 07:28 O2 Del Method 01/25/22 07:28 BMI result Body Mass Index 47.5 Const: Other: General: AO X 3, no acute distress Resp: CTA bilateral CVS: S1,S2,RRR GI: +BS, NT, no distention Skin: swelling, redness--see pic from H and P Neuro: motor grossly intact Psych: appropriate affect Objective Data Active Medications Allopurinol (Allopurinol 100 Mg Tablet) 100 mg PO DAILY [facility] Last Admin: 01/25/22 08:29 Dose: 100 mg Documented By: VANDANA Allopurinol (Allopurinol 300 Mg Tablet) 300 mg PO DAILY [facility] Last Admin: 01/25/22 08:29 Dose: 300 mg Documented By: VANDANA Ascorbic Acid (Ascorbic Acid 500 Mg Tablet) 500 mg PO BID [facility] Last Admin: 01/25/22 08:29 Dose: 500 mg Documented By: VANDANA Atorvastatin Calcium (Atorvastatin Calcium 20 Mg Tablet) 20 mg PO BEDTIME [facility] Last Admin: 01/24/22 21:32 Dose: 20 mg Documented By: KELSEY Calcium Carbonate/Cholecalciferol (Calcium + Vitamin D 250 Mg Tablet) 500 mg PO BID [facility] Last Admin: 01/25/22 08:28 Dose: 500 mg Documented By: VANDANA Enoxaparin Sodium (Enoxaparin Sodium 40 Mg/0.4 Ml Syringe) 40 mg SUBCUT Q24H [facility] Last Admin: 01/24/22 16:03 Dose: 40 mg Documented By: KIA Ferrous Sulfate (Ferrous Sulfate 324 Mg Tablet.) 324 mg PO BID [facility] Last Admin: 01/25/22 08:29 Dose: 324 mg Documented By: VANDANA Hydromorphone HCl (Hydromorphone Hcl 1 Mg/Ml Syringe) 0.5 mg IVPUSH Q4H PRN; Protocol PRN Reason: Pain, Severe (Pain Scale 7-10) Last Admin: 01/23/22 19:39 Dose: 0.5 mg Documented By: FRANK Lisinopril (Lisinopril 5 Mg Tablet) 5 mg PO DAILY [facility]; Protocol Last Admin: 01/25/22 08:29 Dose: 5 mg Documented By: VANDANA Magnesium Oxide (Magnesium Oxide 400 Mg Tablet) 400 mg PO BID@0700,1900 [facility] Last Admin: 01/25/22 06:01 Dose: 400 mg Documented By: KELSEY Metoprolol Succinate (Metoprolol Succinate Er 50 Mg Tab.Er.24h) 50 mg PO DAILY [facility]; Protocol Last Admin: 01/25/22 08:29 Dose: 50 mg Documented By: VANDANA Pharmacy Consult (Consult Rx Perform Med Rec) 1 each MISCELLANE ONCE PRN PRN Reason: Consult order Sodium Chloride (0.9 % Sodium Chloride Flush 3 Ml Syringe) 3 ml IVFLUSH QSHIFT [facility] Last Admin: 01/25/22 08:32 Dose: 3 ml Documented By: VANDANA Torsemide (Torsemide 20 Mg Tablet) 40 mg PO DAILY [facility]; Protocol Last Admin: 01/25/22 08:29 Dose: 40 mg Documented By: VANDANA Labs CBC & Chem 7: 01/22/22 09:28 01/22/22 09:28 Microbiology Microbiology Results: Microbiology 01/22/22 09:34 Blood Culture - Preliminary Blood - Venous No growth after 48 hours. 01/22/22 09:28 Blood Culture - Preliminary Blood - Venous No growth after 48 hours. Assessment and Plan (1) Cellulitis: Status: Acute (2) Anemia: Status: Chronic Plan 61 year old male with besity, HTN, HLD, history lower extremity DVT, chronic venous stasis with chronic erythema here with superimposed acute bilateral lower extremity cellulitis, right greater than left 1/juju lower extremity redness/chronic venous stasis -No clear evidence of infection so ID recommends no Abx -Wound Care and ID input noted -Ammonium lactated application to legs 2/HTN--continue Lisinopril, Metoprolol 3/ HLD--Rozovastatin 4/ Obesity--contributing to all his health problem, weight loss advised 5/ Anemia--likely of chronic disease, no active bleed 6/Chronic Heart Failures NOS--compensated, continue Torsemide 7/ h/o of gout--continue Allopurinol DVT prophylaxis:Lovenox PT eval Need for inpatient: Unable to walk and needs placement Quality Stroke Does the patient have a stroke diagnosis?: No VTE Prior VTE?: Yes VTE Risk Level:: Medical - moderate - high VTE Device Contraindication: Procedure Contraindicated VTE Drug Contraindication: N/A - Med Ordered
--- NOTE | 2022-01-25 11:24 | MHC.CM.PN ---
PER MD ROUNDS, PT IS READY TO DC PENDING STR BED. REFERRALS FOR STR SENT TO AREA FACILITIES AWAITING RESPONSES
[2022-01-25] MEDS: Enoxaparin Sodium 40 MG/0.4 ML SYRINGE SUBCUT (17:12)
[2022-01-25] MEDS: Atorvastatin Calcium 20 MG TABLET PO (19:58)
[2022-01-26] VITALS (9 sets, daily range): BP systolic 130–147; BP diastolic 59–76; PULSE 67–80; RESP 16–20; TEMP 36.6–37.5; O2SAT 18–95
[2022-01-26] MEDS: Magnesium Oxide 400 MG TABLET PO ×2 (05:53→20:08)
--- NOTE | 2022-01-26 08:07 | HO.PM.IMPN ---
Subjective Subjective Date of Service: 01/26/22 Interval History: follow-up on bilateral leg redness, initially thought to be cellulitis Interval history: Still with difficulty walking and doesn't think he can manage at home. Review of Systems Gen: no fever Resp: no sob, no cough CV: no chest, no FRANKEL, no leg edema GI: No n/v, no abd pain Neuro: No confusion skin: redness and sweeling of both legs Physical Exam Vital Signs: Vital Signs: Last Vital Signs Temp 98.7 F 01/26/22 07:29 Pulse 68 01/26/22 07:29 Resp 18 01/26/22 07:29 BP 130/59 L 01/26/22 07:29 Pulse Ox 95 01/26/22 07:29 O2 Del Method 01/26/22 07:29 BMI result Body Mass Index 47.5 Const: Other: General: AO X 3, no acute distress Resp: CTA bilateral CVS: S1,S2,RRR GI: +BS, NT, no distention Skin: swelling, redness--see pic from H and P Neuro: motor grossly intact Psych: appropriate affect Objective Data Active Medications Allopurinol (Allopurinol 100 Mg Tablet) 100 mg [facility] DAILY [facility] Last Admin: 01/25/22 08:29 Dose: 100 mg Documented By: VANDANA Allopurinol (Allopurinol 300 Mg Tablet) 300 mg PO DAILY [facility] Last Admin: 01/25/22 08:29 Dose: 300 mg Documented By: VANDANA Ascorbic Acid (Ascorbic Acid 500 Mg Tablet) 500 mg PO BID [facility] Last Admin: 01/25/22 19:58 Dose: 500 mg Documented By: KELSEY Atorvastatin Calcium (Atorvastatin Calcium 20 Mg Tablet) 20 mg PO BEDTIME [facility] Last Admin: 01/25/22 19:58 Dose: 20 mg Documented By: KELSEY Calcium Carbonate/Cholecalciferol (Calcium + Vitamin D 250 Mg Tablet) 500 mg PO BID [facility] Last Admin: 01/25/22 19:58 Dose: 500 mg Documented By: KELSEY Enoxaparin Sodium (Enoxaparin Sodium 40 Mg/0.4 Ml Syringe) 40 mg SUBCUT Q24H [facility] Last Admin: 01/25/22 17:12 Dose: 40 mg Documented By: CINTHIA Ferrous Sulfate (Ferrous Sulfate 324 Mg Tablet.) 324 mg PO BID [facility] Last Admin: 01/25/22 19:58 Dose: 324 mg Documented By: KELSEY Hydromorphone HCl (Hydromorphone Hcl 1 Mg/Ml Syringe) 0.5 mg IVPUSH Q4H PRN; Protocol PRN Reason: Pain, Severe (Pain Scale 7-10) Last Admin: 01/23/22 19:39 Dose: 0.5 mg Documented By: FRANK Lactic Acid (Ammonium Lactate 12 % Lotion 226 Gm Bottle) 1 appl TOPICAL DAILY [facility]; Protocol Last Admin: 01/25/22 14:59 Dose: Not Given Documented By: CRISTINA Non-Admin Reason: n/a Lisinopril (Lisinopril 5 Mg Tablet) 5 mg PO DAILY [facility]; Protocol Last Admin: 01/25/22 08:29 Dose: 5 mg Documented By: VANDANA Magnesium Oxide (Magnesium Oxide 400 Mg Tablet) 400 mg PO BID@0700,1900 [facility] Last Admin: 01/26/22 05:53 Dose: 400 mg Documented By: KELSEY Metoprolol Succinate (Metoprolol Succinate Er 50 Mg Tab.Er.24h) 50 mg PO DAILY [facility]; Protocol Last Admin: 01/25/22 08:29 Dose: 50 mg Documented By: VANDANA Pharmacy Consult (Consult Rx Perform Med Rec) 1 each MISCELLANE ONCE PRN PRN Reason: Consult order Sodium Chloride (0.9 % Sodium Chloride Flush 3 Ml Syringe) 3 ml IVFLUSH QSHIFT [facility] Last Admin: 01/25/22 19:58 Dose: 3 ml Documented By: KELSEY Torsemide (Torsemide 20 Mg Tablet) 40 mg PO DAILY [facility]; Protocol Last Admin: 01/25/22 08:29 Dose: 40 mg Documented By: VANDANA Labs CBC & Chem 7: 01/22/22 09:28 01/22/22 09:28 Assessment and Plan (1) Cellulitis: Status: Acute (2) Anemia: Status: Chronic Plan 61 year old male with besity, HTN, HLD, history lower extremity DVT, chronic venous stasis with chronic erythema here with superimposed acute bilateral lower extremity cellulitis, right greater than left 1/juju lower extremity redness/chronic venous stasis, not cellulitis -No clear evidence of infection so ID recommends no Abx -Wound Care and ID input noted -Ammonium lactated application to legs 2/HTN--continue Lisinopril, Metoprolol 3/ HLD--Rozovastatin 4/ Obesity--contributing to all his health problem, weight loss advised 5/ Anemia--likely of chronic disease, no active bleed 6/Chronic Heart Failures NOS--compensated, continue Torsemide 7/ h/o of gout--continue Allopurinol DVT prophylaxis:Lovenox PT eval Need for inpatient: Unable to walk and needs placement not yet available Quality Stroke Does the patient have a stroke diagnosis?: No VTE Prior VTE?: Yes VTE Risk Level:: Medical - moderate - high VTE Device Contraindication: Procedure Contraindicated VTE Drug Contraindication: N/A - Med Ordered
[2022-01-26] MEDS: Torsemide 20 MG TABLET 40 MG PO (08:25)
[2022-01-26] MEDS: Ascorbic Acid 500 MG TABLET PO ×2 (08:26→20:08)
[2022-01-26] MEDS: Metoprolol Succinate ER 50 MG TAB.ER.24H PO (08:26)
[2022-01-26] MEDS: allopurinoL 300 MG TABLET PO (08:26)
[2022-01-26] MEDS: lisinopriL 5 MG TABLET PO (08:26)
[2022-01-26] MEDS: allopurinoL 100 MG TABLET PO (08:26)
[2022-01-26] MEDS: Calcium + Vitamin D 250 MG TABLET 500 MG PO ×2 (08:26→20:08)
[2022-01-26] MEDS: Ferrous Sulfate 324 MG TABLET.DR PO ×2 (08:26→20:08)
[2022-01-26] MEDS: 0.9 % Sodium Chloride Flush 3 ML SYRINGE IVFLUSH ×3 (08:27→20:08)
[2022-01-26] MEDS: Ammonium Lactate 12 % Lotion 226 GM BOTTLE 1 APPL TOPICAL (10:52)
[2022-01-26] MEDS: Enoxaparin Sodium 40 MG/0.4 ML SYRINGE SUBCUT (15:57)
--- NOTE | 2022-01-26 16:03 | MHC.CM.PN ---
Addendum entered by Juju Best 01/26/22 16:21: [facility] NO LONGER OPEN Addendum entered by Juju Best 01/26/22 16:09: IT APPEARS PT WAS AT [facility] REFERRAL MADE Addendum entered by Juju Best 01/26/22 16:07: PT CLARIFIES, IT WAS NOT [facility] HE WAS AT. IT WAS A SNF ON [facility] IN [place] CATALINA WILL RESEARCH Original Note: CATALINA MET WITH PT AND MOTHER TO DISCUSS DC PLANNING THIS MORNING. THEY ARE REQUESTING LOCAL FACILITIES SO THAT HIS MOTHER CAN VISIT CM DID EXPLAIN, THIS MAY NOT BE AN OPTION. REFERRALS MADE WITHIN A 20 MILE RADIUS, SO FAR, [facility] IS THE ONLY SNF OFFERING. CM MET WITH PT AGAIN TO INFORM HIM OF THE BED OFFER. HE REQUESTED REFERRALS BE RESENT TO SEE IF HE COULD GET ANYTHING CLOSER OR GO TO HE HAS BEEN THERE IN THE PAST. CATALINA EXPLAINED IF THERE WERE NO ALTERNATE BED OFFERS BY MORNING, THIS WOULD BE THE ONLY OPTION HE INDICATED UNDERSTANDING.
[2022-01-26] MEDS: Atorvastatin Calcium 20 MG TABLET PO (20:08)
[2022-01-27 03:17] VITALS: BP 140/69; PULSE 64; RESP 18; TEMP 37.4; O2SAT 92
[2022-01-27] MEDS: Magnesium Oxide 400 MG TABLET PO ×2 (06:23→18:05)
[2022-01-27 07:43] VITALS: BP 140/81; PULSE 65; RESP 17; TEMP 37.1; O2SAT 98
[2022-01-27] MEDS: Torsemide 20 MG TABLET 40 MG PO (08:49)
[2022-01-27] MEDS: allopurinoL 300 MG TABLET PO (08:49)
[2022-01-27] MEDS: Metoprolol Succinate ER 50 MG TAB.ER.24H PO (08:49)
[2022-01-27] MEDS: Calcium + Vitamin D 250 MG TABLET 500 MG PO ×2 (08:49→20:06)
[2022-01-27] MEDS: Ferrous Sulfate 324 MG TABLET.DR PO ×2 (08:49→20:07)
[2022-01-27] MEDS: 0.9 % Sodium Chloride Flush 3 ML SYRINGE IVFLUSH ×3 (08:49→20:07)
[2022-01-27] MEDS: Ascorbic Acid 500 MG TABLET PO ×2 (08:49→20:07)
[2022-01-27] MEDS: allopurinoL 100 MG TABLET PO (08:49)
[2022-01-27] MEDS: lisinopriL 5 MG TABLET PO (08:49)
[2022-01-27] MEDS: Ammonium Lactate 12 % Lotion 226 GM BOTTLE 1 APPL TOPICAL (08:50)
--- NOTE | 2022-01-27 10:15 | HO.PM.IMPN ---
Subjective Subjective Date of Service: 01/27/22 Interval History: follow-up on bilateral leg redness, initially thought to be cellulitis Interval history: no new issues, Review of Systems Gen: no fever Resp: no sob, no cough CV: no chest, no FRANKEL, no leg edema GI: No n/v, no abd pain Neuro: No confusion skin: redness and sweeling of both legs Physical Exam Vital Signs: Vital Signs: Last Vital Signs Temp 98.8 F 01/27/22 07:43 Pulse 65 01/27/22 07:43 Resp 17 01/27/22 07:43 BP 140/81 H 01/27/22 07:43 Pulse Ox 98 01/27/22 07:43 O2 Del Method 01/27/22 07:43 BMI result Body Mass Index 47.5 Const: Other: General: AO X 3, no acute distress Resp: CTA bilateral CVS: S1,S2,RRR GI: +BS, NT, no distention Skin: swelling, redness--see pic from H and P Neuro: motor grossly intact Psych: appropriate affect Objective Data Active Medications Allopurinol (Allopurinol 100 Mg Tablet) 100 mg PO DAILY [facility] Last Admin: 01/27/22 08:49 Dose: 100 mg Documented By: JOSE Allopurinol (Allopurinol 300 Mg Tablet) 300 mg PO DAILY [facility] Last Admin: 01/27/22 08:49 Dose: 300 mg Documented By: JOSE Ascorbic Acid (Ascorbic Acid 500 Mg Tablet) 500 mg PO BID [facility] Last Admin: 01/27/22 08:49 Dose: 500 mg Documented By: JOSE Atorvastatin Calcium (Atorvastatin Calcium 20 Mg Tablet) 20 mg PO BEDTIME [facility] Last Admin: 01/26/22 20:08 Dose: 20 mg Documented By: JUAN MIGUELRISEdinson Calcium Carbonate/Cholecalciferol (Calcium + Vitamin D 250 Mg Tablet) 500 mg PO BID [facility] Last Admin: 01/27/22 08:49 Dose: 500 mg Documented By: JOSE Enoxaparin Sodium (Enoxaparin Sodium 40 Mg/0.4 Ml Syringe) 40 mg SUBCUT Q24H [facility] Last Admin: 01/26/22 15:57 Dose: 40 mg Documented By: JOHN Ferrous Sulfate (Ferrous Sulfate 324 Mg Tablet.) 324 mg PO BID [facility] Last Admin: 01/27/22 08:49 Dose: 324 mg Documented By: JOSE Hydromorphone HCl (Hydromorphone Hcl 1 Mg/Ml Syringe) 0.5 mg IVPUSH Q4H PRN; Protocol PRN Reason: Pain, Severe (Pain Scale 7-10) Last Admin: 01/23/22 19:39 Dose: 0.5 mg Documented By: FRANK Lactic Acid (Ammonium Lactate 12 % Lotion 226 Gm Bottle) 1 appl TOPICAL DAILY [facility]; Protocol Last Admin: 01/27/22 08:50 Dose: 1 appl Documented By: JOSE Lisinopril (Lisinopril 5 Mg Tablet) 5 mg PO DAILY [facility]; Protocol Last Admin: 01/27/22 08:49 Dose: 5 mg Documented By: JOSE Magnesium Oxide (Magnesium Oxide 400 Mg Tablet) 400 mg PO BID@0700,1900 [facility] Last Admin: 01/27/22 06:23 Dose: 400 mg Documented By: VIJAY Metoprolol Succinate (Metoprolol Succinate Er 50 Mg Tab.Er.24h) 50 mg PO DAILY [facility]; Protocol Last Admin: 01/27/22 08:49 Dose: 50 mg Documented By: JOSE Pharmacy Consult (Consult Rx Perform Med Rec) 1 each MISCELLANE ONCE PRN PRN Reason: Consult order Sodium Chloride (0.9 % Sodium Chloride Flush 3 Ml Syringe) 3 ml IVFLUSH QSHIFT [facility] Last Admin: 01/27/22 08:49 Dose: 3 ml Documented By: JOSE Torsemide (Torsemide 20 Mg Tablet) 40 mg PO DAILY [facility]; Protocol Last Admin: 01/27/22 08:49 Dose: 40 mg Documented By: JOSE Labs CBC & Chem 7: 01/22/22 09:28 01/22/22 09:28 Assessment and Plan (1) Cellulitis: Status: Acute (2) Anemia: Status: Chronic Plan 61 year old male with besity, HTN, HLD, history lower extremity DVT, chronic venous stasis with chronic erythema here with superimposed acute bilateral lower extremity cellulitis, right greater than left 1/juju lower extremity redness/chronic venous stasis, not cellulitis -No clear evidence of infection so ID recommends no Abx -Wound Care and ID input noted -Ammonium lactated application to legs 2/HTN--continue Lisinopril, Metoprolol 3/ HLD--Rozovastatin 4/ Obesity--contributing to all his health problem, weight loss advised 5/ Anemia--likely of chronic disease, no active bleed 6/Chronic Heart Failures NOS--compensated, continue Torsemide 7/ h/o of gout--continue Allopurinol DVT prophylaxis:Lovenox PT eval Need for inpatient: Unable to walk and needs placement, bed not yet available Quality Stroke Does the patient have a stroke diagnosis?: No VTE Prior VTE?: Yes VTE Risk Level:: Medical - moderate - high VTE Device Contraindication: Procedure Contraindicated VTE Drug Contraindication: N/A - Med Ordered
[2022-01-27 11:59] VITALS: BP 140/76; PULSE 76; RESP 18; TEMP 37.4; O2SAT 94
[2022-01-27 15:32] VITALS: BP 144/67; PULSE 69; RESP 16; TEMP 36.9; O2SAT 93
[2022-01-27] MEDS: Enoxaparin Sodium 40 MG/0.4 ML SYRINGE SUBCUT (16:24)
[2022-01-27 19:19] VITALS: BP 151/72; PULSE 65; RESP 17; TEMP 37.1; O2SAT 94
[2022-01-27] MEDS: Atorvastatin Calcium 20 MG TABLET PO (20:09)
[2022-01-27 23:45] VITALS: BP 137/67; PULSE 62; RESP 18; TEMP 37.1; O2SAT 94
[2022-01-28 03:12] VITALS: BP 151/77; PULSE 67; RESP 18; TEMP 36.8; O2SAT 93
[2022-01-28] MEDS: Magnesium Oxide 400 MG TABLET PO (06:36)
[2022-01-28 08:00] VITALS: BP 139/84; PULSE 72; RESP 17; TEMP 37.3; O2SAT 98
[2022-01-28] MEDS: lisinopriL 5 MG TABLET PO (09:07)
[2022-01-28] MEDS: allopurinoL 100 MG TABLET PO (09:07)
[2022-01-28] MEDS: 0.9 % Sodium Chloride Flush 3 ML SYRINGE IVFLUSH ×2 (09:07→16:17)
[2022-01-28] MEDS: Torsemide 20 MG TABLET 40 MG PO (09:07)
[2022-01-28] MEDS: Calcium + Vitamin D 250 MG TABLET 500 MG PO (09:08)
[2022-01-28] MEDS: Ascorbic Acid 500 MG TABLET PO (09:08)
[2022-01-28] MEDS: allopurinoL 300 MG TABLET PO (09:08)
[2022-01-28] MEDS: Metoprolol Succinate ER 50 MG TAB.ER.24H PO (09:08)
[2022-01-28] MEDS: Ferrous Sulfate 324 MG TABLET.DR PO (09:08)
[2022-01-28] MEDS: Ammonium Lactate 12 % Lotion 226 GM BOTTLE 1 APPL TOPICAL (09:08)
--- NOTE | 2022-01-28 09:33 | HO.PM.IMPN ---
Subjective Subjective Date of Service: 01/28/22 Interval History: follow-up on bilateral leg redness, initially thought to be cellulitis Interval history: no new issues, feels a bit better Review of Systems Gen: no fever Resp: no sob, no cough CV: no chest, no FRANKEL, no leg edema GI: No n/v, no abd pain Neuro: No confusion skin: redness and sweeling of both legs Physical Exam Vital Signs: Vital Signs: Last Vital Signs Temp 99.1 F 01/28/22 08:00 Pulse 72 01/28/22 08:00 Resp 17 01/28/22 08:00 BP 139/84 01/28/22 08:00 Pulse Ox 98 01/28/22 08:00 O2 Del Method 01/28/22 08:00 BMI result Body Mass Index 47.5 Const: Other: General: AO X 3, no acute distress Resp: CTA bilateral CVS: S1,S2,RRR GI: +BS, NT, no distention Skin: swelling, redness--see pic from H and P Neuro: motor grossly intact Psych: appropriate affect Objective Data Active Medications Allopurinol (Allopurinol 100 Mg Tablet) 100 mg PO DAILY [facility] Last Admin: 01/28/22 09:07 Dose: 100 mg Documented By: JOSE Allopurinol (Allopurinol 300 Mg Tablet) 300 mg PO DAILY [facility] Last Admin: 01/28/22 09:08 Dose: 300 mg Documented By: JOSE Ascorbic Acid (Ascorbic Acid 500 Mg Tablet) 500 mg PO BID [facility] Last Admin: 01/28/22 09:08 Dose: 500 mg Documented By: JOSE Atorvastatin Calcium (Atorvastatin Calcium 20 Mg Tablet) 20 mg PO BEDTIME [facility] Last Admin: 01/27/22 20:09 Dose: 20 mg Documented By: JUAN MIGUELRISEdinson Calcium Carbonate/Cholecalciferol (Calcium + Vitamin D 250 Mg Tablet) 500 mg PO BID [facility] Last Admin: 01/28/22 09:08 Dose: 500 mg Documented By: JOSE Enoxaparin Sodium (Enoxaparin Sodium 40 Mg/0.4 Ml Syringe) 40 mg SUBCUT Q24H [facility] Last Admin: 01/27/22 16:24 Dose: 40 mg Documented By: JOSE Ferrous Sulfate (Ferrous Sulfate 324 Mg Tablet.) 324 mg PO BID [facility] Last Admin: 01/28/22 09:08 Dose: 324 mg Documented By: JOSE Lactic Acid (Ammonium Lactate 12 % Lotion 226 Gm Bottle) 1 appl TOPICAL DAILY [facility]; Protocol Last Admin: 01/28/22 09:08 Dose: 1 appl Documented By: JOSE Lisinopril (Lisinopril 5 Mg Tablet) 5 mg PO DAILY [facility]; Protocol Last Admin: 01/28/22 09:07 Dose: 5 mg Documented By: JOSE Magnesium Oxide (Magnesium Oxide 400 Mg Tablet) 400 mg PO BID@0700,1900 [facility] Last Admin: 01/28/22 06:36 Dose: 400 mg Documented By: ODRISEdinson Metoprolol Succinate (Metoprolol Succinate Er 50 Mg Tab.Er.24h) 50 mg PO DAILY [facility]; Protocol Last Admin: 01/28/22 09:08 Dose: 50 mg Documented By: JOSE Pharmacy Consult (Consult Rx Perform Med Rec) 1 each MISCELLANE ONCE PRN PRN Reason: Consult order Sodium Chloride (0.9 % Sodium Chloride Flush 3 Ml Syringe) 3 ml IVFLUSH QSHIFT [facility] Last Admin: 01/28/22 09:07 Dose: 3 ml Documented By: JOSE Torsemide (Torsemide 20 Mg Tablet) 40 mg PO DAILY [facility]; Protocol Last Admin: 01/28/22 09:07 Dose: 40 mg Documented By: JOSE Labs CBC & Chem 7: 01/22/22 09:28 01/22/22 09:28 Microbiology Microbiology Results: Microbiology 01/22/22 09:34 Blood Culture - Final Blood - Venous No growth after 5 days. 01/22/22 09:28 Blood Culture - Final Blood - Venous No growth after 5 days. Assessment and Plan (1) Cellulitis: Status: Acute (2) Anemia: Status: Chronic Plan 61 year old male with besity, HTN, HLD, history lower extremity DVT, chronic venous stasis with chronic erythema here with superimposed acute bilateral lower extremity cellulitis, right greater than left 1/juju lower extremity redness/chronic venous stasis, not cellulitis -No clear evidence of infection so ID recommends no Abx -Wound Care and ID input noted -Ammonium lactated application to legs 2/HTN--continue Lisinopril, Metoprolol 3/ HLD--Rozovastatin 4/ Obesity--contributing to all his health problem, weight loss advised 5/ Anemia--likely of chronic disease, no active bleed 6/Chronic Heart Failures NOS--compensated, continue Torsemide 7/ h/o of gout--continue Allopurinol DVT prophylaxis:Lovenox PT eval Need for inpatient: Unable to walk and needs placement, bed not yet available Quality Stroke Does the patient have a stroke diagnosis?: No VTE Prior VTE?: Yes VTE Risk Level:: Medical - moderate - high VTE Device Contraindication: Procedure Contraindicated VTE Drug Contraindication: N/A - Med Ordered
[2022-01-28 11:32] VITALS: BP 143/73; PULSE 73; RESP 18; TEMP 36.9; O2SAT 94
--- NOTE | 2022-01-28 13:34 | PM.DS ---
DS: Providers Provider Date of Service: 01/28/22 Date of admission: 01/22/22 15:28 Primary care physician: Samantha Gonzales MD Consults: 01/22/22 15:28 Consult to Infectious Diseases Routine Consulting Provider: Hailey Smith Reason for consultation: cellulitis of both legs Has provider been notified: No 01/23/22 08:54 Consult to Wound Care Routine Consulting Provider: Mitzi Acosta Reason for consultation: juju leg wounds Has provider been notified: No DS: Diagnosis Discharge Diagnosis (1) Cellulitis: Status: Acute (2) Anemia: Status: Chronic DS: Summary Hospital Course Hospital Course: Chief Complaint: swelling and redness in the legs 61 year old male with besity, HTN, HLD, history lower extremity DVT,? chronic venous stasis with chronic erythema of the legs and follow with the wound care clinic? that recently discharged? from the clinic and presents? with increasing rendess, and swelling in both legs? with skin breaks in the right leg, with superficial drainage, has has been using a walker but increasingly is more difficulty ambulating. Home care agent advised hime to come to the ED today. He has no fever,? WBC is 11. Given Zosyn. for presumed cellulitis Hospital course: He presented with swelling in the legs with redness and initially there was cancern of bilateral leg celulitis and so was started on IV Vancomycin and Zosyn and surgery wound consult and ID consults were requested following and ID and wound care consult it became apparent that the findings were related to his chronic venous stasis and there was no acute infection and therefore the antibiotics were discontinued and wound care recommend ammonioum lactate application to legs. He has been having difficulty walking as result of weakness and therefore PT evaluated him and recommended short term rehab which he is agreable with 2/HTN--continue Lisinopril, Metoprolol 3/ HLD--Rozovastatin 4/ Obesity--contributing to all his health problem, weight loss advised 5/ Anemia--likely of chronic disease, no active bleed, no further work up was indicated 6/Chronic Heart Failures NOS--compensated, continue Torsemide 7/ h/o of gout--continue Allopurinol Dispo: To STR Time Spent with Patient Time attestation: Total time spent providing and/or coordinating discharge services: Discharge coordination time: Greater than 30 minutes Quality: Safe Use of Opioids Does Pt have an Active Cancer Diagnosis on the Problem List?: No Quality: Stroke Does the patient have a stroke diagnosis?: No Physical Exam Vital Signs: Vital Signs: Last Vital Signs Temp 98.5 F 01/28/22 11:32 Pulse 73 01/28/22 11:32 Resp 18 01/28/22 11:32 BP 143/73 H 01/28/22 11:32 Pulse Ox 94 01/28/22 11:32 O2 Del Method 01/28/22 11:32 BMI result Body Mass Index 47.5 Discharge Plan Discharge Anticipated Discharge Date/Time: 01/28/22 13:26 Patient Disposition: Xfer SNF Discharge Diagnosis: leg edema, venous stasis and weakness Referrals: Samantha Gonzales MD [Primary Care Provider] - 1 Week Discharge Medications: New ammonium lactate 12 % Lotion 1 appl topical DAILY Qty: 225 0RF Protocol: Apply to: Apply to: both legs Continued torsemide 20 mg Tablet 40 mg PO DAILY ascorbic acid (vitamin C) [Vitamin C] 500 mg Tablet 500 mg PO BID allopurinol 300 mg Tablet 300 mg PO DAILY calcium carbonate-vitamin D3 500 mg(1,250mg) -125 unit Tablet 1 tab PO BID magnesium oxide 400 mg magnesium Tablet 400 mg PO BID ferrous sulfate 325 mg (65 mg iron) Tablet 325 mg PO BID Qty: 60 3RF metoprolol succinate 50 mg tablet extended release 24 hr 1 tab PO DAILY allopurinol 100 mg tablet 1 tab PO DAILY Rx Instructions: Take with 300 mg tablet lisinopril 5 mg tablet 1 tab PO DAILY rosuvastatin 5 mg tablet 1 tab PO BEDTIME Discharge Orders: Discharge Order (Routine); Ordered 01/28/22 Ordered By: Jeff Alberts Diet: advance to usual diet Activity on Discharge: As tolerated Stand Alone Forms: Patient Portal Discharge page Print Language: Luxembourgish Care Plan Goals: Rehab to improve ambulation, gait stability Health Concerns: lower extremity edema and weakness Plan of Treatment: Short term rehab Assessment: as above
[2022-01-28 14:13] LABS: COVID-19 Test Negative (Negative); IDNOW Serial# 16C4AD1C
--- NOTE | 2022-01-28 14:32 | MHC.CM.PN ---
CM MET WITH PT TO DISCUSS DC PLANNING PT IS AWARE [facility] IS THE ONLY [facility] OFFERING A BED HE REPORTS HE WILL ACCEPT THE BED OFFER HE IS AWARE HE WILL DC THERE TODAY AT 1600 HOURS [facility]
[2022-01-28 16:00] VITALS: BP 134/69; PULSE 65; RESP 16; TEMP 37.3; O2SAT 94
[2022-01-28] MEDS: Enoxaparin Sodium 40 MG/0.4 ML SYRINGE SUBCUT (16:17)
== END 2022-01-28 17:30 | disposition skilled nursing facility (03) | DRG 197 ==
LOC: HO.ED 15:04 → HO.EDOVER 15:42 → HO.S3 17:33
PROVIDERS: Physician Assistant Medical; Admitting Provider Internal Medicine; Emergency Provider Student in an Organized Health Care Education/Training Program; PCP Family Medicine; Visit Provider Internal Medicine
DX: I87.323 Chronic venous hypertension (idiopathic) with inflammation of bilateral lower extremity (principal); I11.0 Hypertensive heart disease with heart failure; D63.8 Anemia in other chronic diseases classified elsewhere; I50.9 Heart failure, unspecified; M10.9 Gout, unspecified; E78.5 Hyperlipidemia, unspecified; E66.01 Morbid (severe) obesity due to excess calories; Z68.42 Body mass index [BMI] 45.0-49.9, adult; Z71.3 Dietary counseling and surveillance; Z20.822 Contact with and (suspected) exposure to COVID-19; Z86.718 Personal history of other venous thrombosis and embolism; Z88.1 Allergy status to other antibiotic agents; Z88.8 Allergy status to other drugs, medicaments and biological substances; Z79.899 Other long term (current) drug therapy
CPT/HCPCS: 36415; 71046; 73700; 80053; 83605; 83880; 85025; 87040; 87635; 93005; 93970; 96365; 96375; 97162; 97530; 99285; J1170; J1650; J2270; J2405; J2543

== ENCOUNTER 2022-04-13 07:32 | Inpatient (IN) | payer MEDICAID, SELFPAY ==
--- NOTE | ~2022-04-13 | US_ITS ---
EXAMINATION: US VENOUS ULTRASOUND WITH DOPPLER LOWER EXTREMITY, BILATERAL CLINICAL INFORMATION: Leg swelling and pain. History of deep vein thrombosis. COMPARISON: 01/22/2022 TECHNIQUE: Ultrasound of the deep veins is performed from the hip to the calf with compression sonography and color and pulse Doppler assessment. Spectral analysis with color-flow imaging is performed. The ultrasound technologist sonographer reports that the examination was limited due to patient body habitus, skin thickening/edema and scabs. FINDINGS: FINDINGS: The common femoral vein is compressible, bilaterally, and exhibits a normal phasic waveform; this suggests that the iliac veins are widely patent above. Within each proximal thigh, the visualized profunda femoris vein is normal. The examined greater saphenous veins and saphenofemoral junctions are normal. Superficial femoral vein is patent in the proximal, mid and distal aspect of each thigh. Popliteal vein is normal to the level of the trifurcation, bilaterally. On compression cortez scale and color Doppler images, the posterior tibial and peroneal veins of the right leg are grossly patent. On prior exam of 01/24/2022, the left posterior tibial vein could not be adequately visualized. On this current examination, the left posterior tibial and peroneal veins are not adequately visualized for diagnostic assessment. No evidence of Purdy's cyst. US/US venous duplex LE BI IMPRESSION: * No evidence of deep vein thrombosis in the the femoral or popliteal veins to level of the trifurcation, bilaterally. * Although no venous thrombosis is detected, the deep calf veins on the left are difficult to visualize, and a repeat Doppler ultrasound may be considered in 5-7 days if there is any ongoing clinical suspicion.
--- NOTE | ~2022-04-13 | XR_ITS ---
EXAMINATION: XR HIP, RIGHT CLINICAL INFORMATION: Right groin pain. COMPARISON: None TECHNIQUE: Pelvis, AP view Right hip, 2 views FINDINGS: Large body habitus. Alignment is normal at the hips, pubic symphysis and sacroiliac joints. There is narrowing of superior joint space of each hip along with subchondral cystic change, mild subchondral sclerosis and osteophyte formation. At the right hip, the femoral head is well-positioned within the intact acetabulum. No evidence of proximal femoral fracture or osteonecrosis. Soft tissues around the hip are grossly normal. Multiple phleboliths are observed within the lower pelvis. XR/XR hip RT w [id number] IMPRESSION: * No acute abnormalities. No fracture or subluxation at the right hip. * [id number] osteoarthritis of the hips.
[2022-04-13 08:47] VITALS: BP 144/75; PULSE 86; RESP 20; TEMP 38.2; O2SAT 97; BMI 41.1
--- NOTE | 2022-04-13 08:59 | ED_ITS ---
HPI - Extremity Problem General Chief complaint: Extremity Problem Stated complaint: RT LEG WEAKNESS Time Seen by Provider: 04/13/22 08:59 Source: patient and old records reviewed Mode of arrival: ambulatory Limitations: no limitations History of Present Illness HPI Narrative: 61 yo male with history of morbid obesity, history of chronic LE wounds, hx cellulitis, HTN, HLD, DVT, chronic venous stasis, chronic anemia who presents to the ER for evaluation of RLE pain and weakness s/p Shingles vaccination 3 days ago. He reports the day after he got his shingles vaccination he started having right lower extremity pain. He reports the pain started in his right foot and extended up into his right leg. He was unable to put pressure on his foot so he was using his right hip to help move his leg as he walked. He reports increased swelling of his right foot and right lower leg from his baseline. It is red and warm. He reports the pain is now severe in the right hip flexor area. He had to use a walker to help ambulate starting yesterday. He woke up this morning and could not ambulate at all. He reports the pain is too severe in his right hip and his right foot. He reports since the vaccination he has felt unwell, unable to tolerate meals. He feels weak. He denies any fever or chills. Complaint: extremity pain Onset (ago): day(s) (3) Location: right and lower extremity Severity scale (1-10): >10 Quality: stabbing and aching Radiation: proximal Relieving factors: immobilization Exacerbating factors: range of motion, weight bearing and palpation Associated symptoms: myalgias and arthralgias Related Data Home Medications Medication Instructions Recorded Confirmed allopurinol 300 mg tablet 300 mg PO DAILY 06/07/20 04/13/22 ascorbic acid (vitamin C) 500 mg 500 mg PO BID 06/07/20 04/13/22 tablet (Vitamin C) calcium carbonate 500 mg-vitamin 1 tab PO BID 06/07/20 04/13/22 D3 3.125 mcg (125 unit) tablet magnesium oxide 400 mg PO BID 06/07/20 04/13/22 torsemide 20 mg tablet 40 mg PO DAILY 06/07/20 04/13/22 allopurinol 100 mg tablet 1 tab PO DAILY 01/22/22 04/13/22 lisinopril 5 mg tablet 1 tab PO DAILY 01/22/22 04/13/22 metoprolol succinate 50 mg 75 mg PO DAILY 01/22/22 04/13/22 tablet,extended release 24 hr rosuvastatin 5 mg tablet 1 tab PO BEDTIME 01/22/22 04/13/22 spironolactone 25 mg tablet 1 tab PO DAILY 04/13/22 04/13/22 Previous Rx's Medication Instructions Recorded ferrous sulfate 325 mg (65 mg 325 mg PO BID #60 tabs 11/30/21 iron) tablet Allergies Allergy/AdvReac Type Severity Reaction Status Date / Time azithromycin [AZITHROMYCIN] Allergy Severe FACIAL Verified 11/30/21 09:19 SWELLING hydrochlorothiazide [HCTZ] Allergy Severe Facial Verified 04/13/22 12:11 Swelling Review of Systems Review of Systems: Constitutional: No Fever, No Chills, +Fatigue ENT/Mouth: No sore throat, No Rhinorrhea, No Swallowing Difficulty Eyes: No Eye Pain, No Swelling, No Redness Cardiovascular: No Chest Pain, No SOB, No Orthopnea, No Edema Respiratory: No Cough, No Sputum, No Wheezing, No dyspnea Gastrointestinal: No Nausea, No Vomiting, No Diarrhea, No abdominal Pain, No Hematochezia, No Melena Genitourinary: No Dysuria, No Urinary Frequency, No Hematuria Musculoskeletal: + joint pain, + Myalgias Skin: No Skin Lesions, No rash Neuro: + Weakness, No Numbness, No Dizziness, No Headache Psych: No Anxiety/Panic, No Depression Heme/Lymph: No Bruising, No Lymphadenopathy Endocrine: No Polyuria, No Polydipsia PMFSH Past Medical History Medical History Alcoholic steatohepatitis Anemia Ascending aortic aneurysm Chronic ulcer of leg Chronic venous stasis History of DVT of lower extremity History of rhabdomyolysis HTN (hypertension) Hx of lower gastrointestinal bleeding Hx of sepsis DEBORAH (obstructive sleep apnea) Seborrheic dermatitis Surgical History Hx of colonoscopy Social History Social History Household Members: None Housing: Apartment Do you presently have visiting 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 Oriented X3. No acute distress. Eyes: Pupils equal, round and reactive to light. ENT: Pharynx normal. Neck: Normal inspection. Neck supple. CVS: Normal heart rate and rhythm. Pulses normal. Respiratory: No respiratory distress. Breath sounds normal. Abdomen: Obese, Soft and nontender. +BS x4 Skin: Skin warm and dry. Normal skin color. Normal skin turgor. No rashes. Extremities: Bilateral LE with chronic venous stasis changes, dry flakey skin. mild erythema of the anterior right lower leg, inner portion of the foot with diffuse tenderness of the foot, anterior lower leg and anterior right hip. limited ROM due to pain Neuro: Oriented X 3. unable to assess gait due to pain Course Course Course Narrative: 61-year-old male with history of morbid obesity, history of chronic lower extremity wounds with history of lower extremity cellulitis in the past presents to the ER for evaluation of increased right lower extremity pain, swelling and weakness. He reports that started shortly after he got his shingles vaccination on 04/10. Unclear if this is actually related. On examination he has more pain limiting his range of motion than weakness. He is tender on his plantar aspect of his right foot as well as the top of his right foot, right anterior lower leg and right hip flexor. He has mild cellulitic changes. On arrival to the ER he is febrile 100.8. He is unable to ambulate due to pain in the right lower extremity. Concern for evolving lower extremity cellulitis. His pain is out of proportion to his cellulitic changes. He is not diabetic. Will check lab workup and ultrasound the lower extremities. He has a history of DVT several years ago and is no longer on anticoagulation. Dispo pending results and improvement. Reevaluation(s) Reevaluation #1: Pain slightly improved after a dose of oral oxycodone. His lab workup showing a leukocytosis, with WBC 11.9. His magnesium is critically low at 0.9. 2 g of magnesium have been ordered IV. He has elevated CRP of 15.32. ESR 78. Concern for cellulitis. Will cover with vanco and Zosyn given his history. Will plan for admission. Ultrasound of the lower extremities is is ordered to rule out DVT. Reevaluation #2: Lower extremity showed no DVT in the popliteal and femoral veins, difficult visualization of the calf veins. Will plan for admission. Hospitalist has been contacted who will come evaluate the patient. MDM - Extremity (Nontraumatic) Lab Data Result diagrams: 04/13/22 09:38 04/13/22 09:38 Labs: Lab Results 04/13/22 04/13/22 04/13/22 Range/Units 09:38 09:38 09:38 WBC 11.9 H (4.8-10.8) X10*3/uL RBC 4.36 L (4.60-5.80) X10*6/uL Hgb 10.4 L (14.0-18.0) g/dl Hct 33.9 L (42.0-52.0) % MCV 77.8 L (80.0-98.0) fL MCH 23.9 L (27.0-33.0) pg MCHC 30.7 L (31.0-36.0) g/dl RDW 16.7 H (11.0-16.0) % Plt Count 147 L D (160-400) X10*3/uL MPV 8.8 L (9.4-12.4) fL Immature Gran % (Auto) 0.4 (0.0-0.4) % Neut % (Auto) 72.0 (45-73) % Lymph % (Auto) 15.1 L (20-40) % [place] % (Auto) 10.2 (2-11) % Eos % (Auto) 1.6 (0-4) % Baso % (Auto) 0.7 (0-2) % Lymph # (Auto) 1.8 (1.2-4.9) X10*3/uL [place] # (Auto) 1.2 (0.1-1.2) X10*3/uL Eos # (Auto) 0.2 (0.0-0.4) X10*3/uL Baso # (Auto) 0.1 (0.0-0.2) X10*3/uL Abs Immat Gran (auto) 0.05 H (0.00-0.03) X10*3/uL Absolute Neuts (auto) 8.6 H (2.0-8.3) x10*3/uL Absolute Nucleated RBC 0.000 (0.0-0.012) X10*3/uL Nucleated RBC % (auto) 0.0 (0.0-0.2) /100WBC ESR (0-15) MM/HR PT 16.5 H (10.0-13.1) SEC INR 1.4 H (0.9-1.1) APTT 35.7 (26.0-36.4) SEC Sodium 141 (135-145) mmol/L Potassium 3.2 L (3.3-5.1) mmol/L Chloride 97 (96-108) mmol/L Carbon Dioxide 25 (22-29) mmol/L Anion Gap 22 H (12-20) BUN 17 H (9-16) mg/dL Creatinine 1.04 (0.5-1.4) mg/dL Estim Creat Clear Calc 93.2 Estimated GFR > 60 Random Glucose 110 (60-115) mg/dL Lactic Acid (0.5-2.0) mmol/L Calcium 7.8 L D (8.4-10.2) mg/dL Magnesium 0.9 L* (1.6-2.6) mg/dL Total Bilirubin 2.2 H (0.0-1.0) mg/dL Direct Bilirubin 1.2 H (0.0-0.5) mg/dL AST 14 (5-37) U/L ALT 6 (0-40) U/L Alkaline Phosphatase 102 (39-117) U/L C-Reactive Protein 15.32 H (< or = 0.50) mg/dL B-Natriuretic Peptide (<100) pg/mL Total Protein 7.9 (6.5-8.0) g/dL Albumin 4.1 (3.5-5.0) g/dL Urine Color Urine Appearance Urine pH (5.0-8.0) Ur Specific [place] (1.005-1.025) Urine Protein (Neg-Trace) mg/dL Urine Glucose (UA) (Negative) mg/dL Urine Ketones (Negative) mg/dL Urine Blood (Negative) Urine Nitrite (Negative) Ur Leukocyte Esterase (Negative) Urine RBC (0-2) /HPF Urine WBC (0-5) /HPF Ur Squamous Epith Cells (0-2) /HPF Urine Bacteria (None Seen) Hyaline Casts (0-2) /LPF COVID-19 (TORSTEN) (Negative) COVID-19 Clin Com 04/13/22 04/13/22 04/13/22 Range/Units 09:38 09:38 09:38 WBC (4.8-10.8) X10*3/uL RBC (4.60-5.80) X10*6/uL Hgb (14.0-18.0) g/dl Hct (42.0-52.0) % MCV (80.0-98.0) fL MCH (27.0-33.0) pg MCHC (31.0-36.0) g/dl RDW (11.0-16.0) % Plt Count (160-400) X10*3/uL MPV (9.4-12.4) fL Immature Gran % (Auto) (0.0-0.4) % Neut % (Auto) (45-73) % Lymph % (Auto) (20-40) % [place] % (Auto) (2-11) % Eos % (Auto) (0-4) % Baso % (Auto) (0-2) % Lymph # (Auto) (1.2-4.9) X10*3/uL [place] # (Auto) (0.1-1.2) X10*3/uL Eos # (Auto) (0.0-0.4) X10*3/uL Baso # (Auto) (0.0-0.2) X10*3/uL Abs Immat Gran (auto) (0.00-0.03) X10*3/uL Absolute Neuts (auto) (2.0-8.3) x10*3/uL Absolute Nucleated RBC (0.0-0.012) X10*3/uL Nucleated RBC % (auto) (0.0-0.2) /100WBC ESR 78 H (0-15) MM/HR PT (10.0-13.1) SEC INR (0.9-1.1) APTT (26.0-36.4) SEC Sodium (135-145) mmol/L Potassium (3.3-5.1) mmol/L Chloride (96-108) mmol/L Carbon Dioxide (22-29) mmol/L Anion Gap (12-20) BUN (9-16) mg/dL Creatinine (0.5-1.4) mg/dL Estim Creat Clear Calc Estimated GFR Random Glucose (60-115) mg/dL Lactic Acid 1.9 (0.5-2.0) mmol/L Calcium (8.4-10.2) mg/dL Magnesium (1.6-2.6) mg/dL Total Bilirubin (0.0-1.0) mg/dL Direct Bilirubin (0.0-0.5) mg/dL AST (5-37) U/L ALT (0-40) U/L Alkaline Phosphatase (39-117) U/L C-Reactive Protein (< or = 0.50) mg/dL B-Natriuretic Peptide (<100) pg/mL Total Protein (6.5-8.0) g/dL Albumin (3.5-5.0) g/dL Urine Color Urine Appearance Urine pH (5.0-8.0) Ur Specific [place] (1.005-1.025) Urine Protein (Neg-Trace) mg/dL Urine Glucose (UA) (Negative) mg/dL Urine Ketones (Negative) mg/dL Urine Blood (Negative) Urine Nitrite (Negative) Ur Leukocyte Esterase (Negative) Urine RBC (0-2) /HPF Urine WBC (0-5) /HPF Ur Squamous Epith Cells (0-2) /HPF Urine Bacteria (None Seen) Hyaline Casts (0-2) /LPF COVID-19 (TORSTEN) Negative (Negative) COVID-19 Clin Com See Note 04/13/22 04/13/22 Range/Units 09:38 11:18 WBC (4.8-10.8) X10*3/uL RBC (4.60-5.80) X10*6/uL Hgb (14.0-18.0) g/dl Hct (42.0-52.0) % MCV (80.0-98.0) fL MCH (27.0-33.0) pg MCHC (31.0-36.0) g/dl RDW (11.0-16.0) % Plt Count (160-400) X10*3/uL MPV (9.4-12.4) fL Immature Gran % (Auto) (0.0-0.4) % Neut % (Auto) (45-73) % Lymph % (Auto) (20-40) % [place] % (Auto) (2-11) % Eos % (Auto) (0-4) % Baso % (Auto) (0-2) % Lymph # (Auto) (1.2-4.9) X10*3/uL [place] # (Auto) (0.1-1.2) X10*3/uL Eos # (Auto) (0.0-0.4) X10*3/uL Baso # (Auto) (0.0-0.2) X10*3/uL Abs Immat Gran (auto) (0.00-0.03) X10*3/uL Absolute Neuts (auto) (2.0-8.3) x10*3/uL Absolute Nucleated RBC (0.0-0.012) X10*3/uL Nucleated RBC % (auto) (0.0-0.2) /100WBC ESR (0-15) MM/HR PT (10.0-13.1) SEC INR (0.9-1.1) APTT (26.0-36.4) SEC Sodium (135-145) mmol/L Potassium (3.3-5.1) mmol/L Chloride (96-108) mmol/L Carbon Dioxide (22-29) mmol/L Anion Gap (12-20) BUN (9-16) mg/dL Creatinine (0.5-1.4) mg/dL Estim Creat Clear Calc Estimated GFR Random Glucose (60-115) mg/dL Lactic Acid (0.5-2.0) mmol/L Calcium (8.4-10.2) mg/dL Magnesium (1.6-2.6) mg/dL Total Bilirubin (0.0-1.0) mg/dL Direct Bilirubin (0.0-0.5) mg/dL AST (5-37) U/L ALT (0-40) U/L Alkaline Phosphatase (39-117) U/L C-Reactive Protein (< or = 0.50) mg/dL B-Natriuretic Peptide 217 H (<100) pg/mL Total Protein (6.5-8.0) g/dL Albumin (3.5-5.0) g/dL Urine Color Dark Yellow Urine Appearance Clear Urine pH 6.0 (5.0-8.0) Ur Specific [place] 1.015 (1.005-1.025) Urine Protein 30 (1+) H (Neg-Trace) mg/dL Urine Glucose (UA) Negative (Negative) mg/dL Urine Ketones Trace (Negative) mg/dL Urine Blood Negative (Negative) Urine Nitrite Negative (Negative) Ur Leukocyte Esterase Trace H (Negative) Urine RBC 0-2 (0-2) /HPF Urine WBC 0-5 (0-5) /HPF Ur Squamous Epith Cells 0-2 (0-2) /HPF Urine Bacteria None Seen (None Seen) Hyaline Casts 0-2 (0-2) /LPF COVID-19 (TORSTEN) (Negative) COVID-19 Clin Com Critical Care Time Critical Care Time Critical Care Time: Yes Total Critical Care Time: 35 Attestation: I have personally provided critical care time exclusive of time spent on separately billable procedures. Time includes review of lab data, radiology results, discussion with consultants, and monitoring for potential decompensation. Intervention performed as documented. Discharge Plan Discharge Clinical Impression: Cellulitis of right lower leg, Hypomagnesemia, Acute hypokalemia Patient Disposition: Admitted As Inpatient
[2022-04-13] MEDS: oxyCODONE HCl Immed Release 5 MG TABLET PO (09:25)
[2022-04-13 09:46] LABS: MANUAL DIFF FLAG NO
[2022-04-13 09:51] LABS: Basophils Absolute Auto 0.1 X10*3/uL (0.0-0.2); Basophils Percent Auto 0.7 % (0-2); Eosinophils Absolute Auto 0.2 X10*3/uL (0.0-0.4); Eosinophils Percent Auto 1.6 % (0-4); Hematocrit 33.9 % (42.0-52.0); Hemoglobin 10.4 g/dl (14.0-18.0); Imm Gran Abs Auto 0.05 X10*3/uL (0.00-0.03); Imm Gran Pct Auto 0.4 % (0.0-0.4); Lymphocytes Absolute Auto 1.8 X10*3/uL (1.2-4.9); Lymphocytes Percent Auto 15.1 % (20-40); Mean Corpuscular HGB Conc 30.7 g/dl (31.0-36.0); Mean Corpuscular Hemoglobin 23.9 pg (27.0-33.0); Mean Corpuscular Volume 77.8 fL (80.0-98.0); Mean Platelet Volume 8.8 fL (9.4-12.4); Monocytes Absolute Auto 1.2 X10*3/uL (0.1-1.2); Monocytes Percent Auto 10.2 % (2-11); Neutrophils Absolute Auto 8.6 x10*3/uL (2.0-8.3); Platelet Count 147 X10*3/uL (160-400); Red Blood Count 4.36 X10*6/uL (4.60-5.80); Red Cell Distribution Width 16.7 % (11.0-16.0); White Blood Count 11.9 X10*3/uL (4.8-10.8)
[2022-04-13 09:54] LABS: INTERNATIONAL NORM RATIO 1.4 (0.9-1.1); Prothrombin Time 16.5 SEC (10.0-13.1)
[2022-04-13 09:57] LABS: Partial Thromboplastin Time 35.7 SEC (26.0-36.4)
[2022-04-13 09:59] LABS: Lactic Acid 1.9 mmol/L (0.5-2.0)
[2022-04-13 10:01] LABS: COVID-19 Test Negative (Negative); IDNOW Serial# 9DB6401D
[2022-04-13 10:11] LABS: Alanine Aminotransferase 6 U/L (0-40); Albumin Level 4.1 g/dL (3.5-5.0); Alkaline Phosphatase 102 U/L (39-117); Anion Gap 22 (12-20); Aspartate Amino Transferase 14 U/L (5-37); Bilirubin Direct 1.2 mg/dL (0.0-0.5); Bilirubin Total 2.2 mg/dL (0.0-1.0); Blood Urea Nitrogen 17 mg/dL (9-16); C Reactive Protein 15.32 mg/dL (< or = 0.50); Calcium 7.8 mg/dL (8.4-10.2); Carbon Dioxide 25 mmol/L (22-29); Chloride 97 mmol/L (96-108); Creatinine Clr Calc Pharmacy 93.2; Estimated Glomerular Filt Rate > 60; Glucose Random 110 mg/dL (60-115); Potassium 3.2 mmol/L (3.3-5.1); Sodium 141 mmol/L (135-145); Total Protein 7.9 g/dL (6.5-8.0)
[2022-04-13 10:13] LABS: Magnesium 0.9 mg/dL (1.6-2.6)
[2022-04-13 10:39] LABS: Erythrocyte Sedimentation Rate 78 MM/HR (0-15)
[2022-04-13 11:27] VITALS: BP 164/78; PULSE 63; RESP 16; TEMP 37.3; O2SAT 95
[2022-04-13 11:36] LABS: Appearance Urine Clear; Color Urine Dark Yellow; Glucose Urine UA Negative (Negative); Leukocyte Esterase Urine Trace (Negative); Nitrite Urine Negative (Negative); Specific Gravity - Urine 1.015 (1.005-1.025); Urine Blood Negative (Negative); Urine Ketones Trace mg/dL (Negative); Urine Protein 30 (1+) mg/dL (Neg-Trace)
[2022-04-13 11:43] LABS: Bacteria Urine None Seen (None Seen); Hyaline Casts Urine 0-2 /LPF (0-2); RBC Urine 0-2 /HPF (0-2); Squamous Epithelial Cell Urine 0-2 /HPF (0-2); WBC Urine 0-5 /HPF (0-5)
[2022-04-13] MEDS: Piperacillin Sodium/Tazobactam 3.375 GM in 0.9 % Sodium Chloride 50 ML IV (11:55)
--- NOTE | 2022-04-13 12:08 | PHA.MEDREC ---
Pharmacy Consult ? Medication Reconciliation Pharmacy has completed the medication reconciliation. Patient had a list of all medications they currently take. Cross-referenced with claim history and verified with patient.
[2022-04-13 12:09] LABS: B Type Natriuretic Peptide 217 pg/mL (<100)
--- NOTE | 2022-04-13 13:49 | P.HPHOSP_ITS ---
History of Present Illness Date of Service: 04/13/22 Attending physician on admission: Jose Fisher Chief Complaint: cellulitis RLE Patient with htn, ckd, ascending aortic dilitation, iron deficiency anemia, hld, chronic venous stasis dermatitis, history of DVT and morbid obesity with BMI >41 presented to the ED this morning complaining of pain and redness RLE. States he received his shingrix vaccine 5 days ago and the next day woke up with significant pain in the right groin. The next day reports pain from the groin to the right foot rated as a 10/10, unable to bear weight. Had been taking tylenol at home without relief. In the ER, thought to have cellulitis and given empiric dose of vancomycin and zosyn. Mild leukocytosis 11.9, elevated ESR 78, CRP 15.32. Critically low mag 0.9, received 2gm IV in the ed. Potassium low 3.2. Elevated bilirubin 2.2. Venous doppler negative for DVT. Review of Systems Review of Systems: General: No fevers, malaise, unintentional weight loss Cardiovascular: No chest pain, palpitations, or leg edema Respiratory: No shortness of breath, wheezing, cough GI: No abdominal pain, nausea, vomiting, diarrhea, constipation, melena, hematochezia MSK: +pain rle Neuro: No headaches, weakness, paresthesias Skin: +redness ble PMFSH Medical History (Updated 04/13/22 @ 14:27 by KADEN Cano) Alcoholic steatohepatitis Anemia Anemia Ascending aortic aneurysm Chronic ulcer of leg Chronic venous stasis History of DVT of lower extremity History of rhabdomyolysis HTN (hypertension) Hx of lower gastrointestinal bleeding Hx of sepsis Hyperlipidemia DEBORAH (obstructive sleep apnea) Seborrheic dermatitis Family History Mother Dementia Maternal Grandmother Dementia Surgical History Hx of colonoscopy Social History Household Members: None Housing: Apartment Do you presently have visiting nurse or other home services: Yes (home care scheduler) Alcohol intake: current Alcohol intake frequency: 3 or more drinks per day Alcohol type: beer Patient Tobacco Use Status: Never used Tobacco Advance Directives: Yes Advance Directives on File: Yes Advance Directives Date on File: 01/22/22 service: No Current occupational status: disabled Meds Allergies Allergy/AdvReac Type Severity Reaction Status Date / Time azithromycin [AZITHROMYCIN] Allergy Severe FACIAL Verified 11/30/21 09:19 SWELLING hydrochlorothiazide [HCTZ] Allergy Severe Facial Verified 04/13/22 12:11 Swelling Active Medications: Current Medications Allopurinol (Allopurinol 100 Mg Tablet) 100 mg PO DAILY [facility] Allopurinol (Allopurinol 300 Mg Tablet) 300 mg PO DAILY [facility] Ascorbic Acid (Ascorbic Acid 500 Mg Tablet) 500 mg PO BID [facility] Enoxaparin Sodium (Enoxaparin Sodium 40 Mg/0.4 Ml Syringe) 40 mg SUBCUT Q24H [facility] Lisinopril (Lisinopril 5 Mg Tablet) 5 mg PO DAILY [facility]; Protocol Magnesium Oxide (Magnesium Oxide 400 Mg Tablet) 400 mg PO BID [facility] Metoprolol Succinate (Metoprolol Succinate Er 25 Mg Tab.Er.24h) 75 mg PO DAILY [facility]; Protocol Non-Formulary Medication (Calcium Carbonate-Vitamin D3) 1 tab PO BID [facility] Non-Formulary Medication (Ferrous Sulfate) 325 mg PO BID [facility] Non-Formulary Medication (Rosuvastatin) 1 tab PO BEDTIME [facility] Pharmacy Consult (Consult Rx Perform Med Rec) 1 each MISCELLANE ONCE PRN PRN Reason: Consult order Pharmacy Consult (Consult Rx Vancomycin Dosing) 1 each MISCELLANE DAILY PRN PRN Reason: Consult order Sodium Chloride (0.9 % Sodium Chloride Flush 3 Ml Syringe) 3 ml IVFLUSH QSHIFT [facility] Spironolactone (Spironolactone 25 Mg Tablet) 25 mg PO DAILY [facility]; Protocol Torsemide (Torsemide 20 Mg Tablet) 40 mg PO DAILY [facility]; Protocol Home Medications Medication Instructions Recorded Confirmed Last Taken Type allopurinol 300 mg tablet 300 mg PO DAILY 06/07/20 04/13/22 04/10/22 History ascorbic acid (vitamin C) 500 mg 500 mg PO BID 06/07/20 04/13/22 04/10/22 History tablet (Vitamin C) calcium carbonate 500 mg-vitamin 1 tab PO BID 06/07/20 04/13/22 04/10/22 History D3 3.125 mcg (125 unit) tablet magnesium oxide 400 mg PO BID 06/07/20 04/13/22 04/10/22 History torsemide 20 mg tablet 40 mg PO DAILY 06/07/20 04/13/22 04/10/22 History allopurinol 100 mg tablet 1 tab PO DAILY 01/22/22 04/13/22 04/10/22 History lisinopril 5 mg tablet 1 tab PO DAILY 01/22/22 04/13/22 04/10/22 History metoprolol succinate 50 mg 75 mg PO DAILY 01/22/22 04/13/22 04/10/22 History tablet,extended release 24 hr rosuvastatin 5 mg tablet 1 tab PO BEDTIME 01/22/22 04/13/22 04/10/22 History spironolactone 25 mg tablet 1 tab PO DAILY 04/13/22 04/13/22 04/10/22 History Physical Exam Vital Signs and Narrative: Vital Signs: Last Vital Signs Temp 99.2 F 04/13/22 11:27 Pulse 63 04/13/22 11:27 Resp 16 04/13/22 11:27 BP 164/78 H 04/13/22 11:27 Pulse Ox 95 04/13/22 11:27 O2 Del Method 04/13/22 11:27 BMI result Body Mass Index 41.1 Constitutional - Awake and Alert, No apparent distress Eyes - PERRLA, EOMI Cardiovascular - S1S2, RRR, minimal edema ble. 2+ femoral and pedal pulses Respiratory - Normal lung expansion, Normal respiratory effort, No respiratory distress, CTA bilaterally Gastrointestinal - NT / ND; +BS; No rebound or guarding Extremities - Mildly erythematous thickened skin of the b/l lower legs R>L with various areas of plaqueing without drainage. no calf tenderness bilaterally, no swelling Musculoskeletal - Right knee ttp over the patella and popliteal fossa without mass and with ROM. Focal tenderness of the right groin with ROM right hip. Normal inspection, normal ROM Skin - Warm/Dry. See extremities Neurological - Alert & oriented x3, 4/5 strength RLE, 5/5 strength LLE, 5/5 streng BUE Psychological - Appropriate affect Results Labs CBC and Chem 7: 04/13/22 09:38 04/13/22 09:38 Labs: Laboratory Results - last 24 hr 04/13/22 04/13/22 04/13/22 09:38 09:38 09:38 MCV 77.8 L MCH 23.9 L MCHC 30.7 L RDW 16.7 H Plt Count 147 L D MPV 8.8 L Immature Gran % (Auto) 0.4 Neut % (Auto) 72.0 Lymph % (Auto) 15.1 L [place] % (Auto) 10.2 Eos % (Auto) 1.6 Baso % (Auto) 0.7 Lymph # (Auto) 1.8 [place] # (Auto) 1.2 Eos # (Auto) 0.2 Baso # (Auto) 0.1 Abs Immat Gran (auto) 0.05 H Absolute Neuts (auto) 8.6 H Absolute Nucleated RBC 0.000 Nucleated RBC % (auto) 0.0 ESR PT 16.5 H INR 1.4 H APTT 35.7 Anion Gap 22 H Estim Creat Clear Calc 93.2 Estimated GFR > 60 Random Glucose 110 Lactic Acid Calcium 7.8 L D Magnesium 0.9 L* Total Bilirubin 2.2 H Direct Bilirubin 1.2 H AST 14 ALT 6 Alkaline Phosphatase 102 C-Reactive Protein 15.32 H B-Natriuretic Peptide Total Protein 7.9 Albumin 4.1 Urine Color Urine Appearance Urine pH Ur Specific [place] Urine Protein Urine Glucose (UA) Urine Ketones Urine Blood Urine Nitrite Ur Leukocyte Esterase Urine RBC Urine WBC Ur Squamous Epith Cells Urine Bacteria Hyaline Casts COVID-19 ([facility]) COVID-19 Clin Com 04/13/22 04/13/22 04/13/22 09:38 09:38 09:38 MCV MCH MCHC RDW Plt Count MPV Immature Gran % (Auto) Neut % (Auto) Lymph % (Auto) [place] % (Auto) Eos % (Auto) Baso % (Auto) Lymph # (Auto) [place] # (Auto) Eos # (Auto) Baso # (Auto) Abs Immat Gran (auto) Absolute Neuts (auto) Absolute Nucleated RBC Nucleated RBC % (auto) ESR 78 H PT INR APTT Anion Gap Estim Creat Clear Calc Estimated GFR Random Glucose Lactic Acid 1.9 Calcium Magnesium Total Bilirubin Direct Bilirubin AST ALT Alkaline Phosphatase C-Reactive Protein B-Natriuretic Peptide Total Protein Albumin Urine Color Urine Appearance Urine pH Ur Specific [place] Urine Protein Urine Glucose (UA) Urine Ketones Urine Blood Urine Nitrite Ur Leukocyte Esterase Urine RBC Urine WBC Ur Squamous Epith Cells Urine Bacteria Hyaline Casts COVID-19 ([facility]) Negative COVID-19 Clin Com See Note 04/13/22 04/13/22 09:38 11:18 MCV MCH MCHC RDW Plt Count MPV Immature Gran % (Auto) Neut % (Auto) Lymph % (Auto) [place] % (Auto) Eos % (Auto) Baso % (Auto) Lymph # (Auto) [place] # (Auto) Eos # (Auto) Baso # (Auto) Abs Immat Gran (auto) Absolute Neuts (auto) Absolute Nucleated RBC Nucleated RBC % (auto) ESR PT INR APTT Anion Gap Estim Creat Clear Calc Estimated GFR Random Glucose Lactic Acid Calcium Magnesium Total Bilirubin Direct Bilirubin AST ALT Alkaline Phosphatase C-Reactive Protein B-Natriuretic Peptide 217 H Total Protein Albumin Urine Color Dark Yellow Urine Appearance Clear Urine pH 6.0 Ur Specific [place] 1.015 Urine Protein 30 (1+) H Urine Glucose (UA) Negative Urine Ketones Trace Urine Blood Negative Urine Nitrite Negative Ur Leukocyte Esterase Trace H Urine RBC 0-2 Urine WBC 0-5 Ur Squamous Epith Cells 0-2 Urine Bacteria None Seen Hyaline Casts 0-2 COVID-19 ([facility]) COVID-19 Clin Com Imaging Radiologist's Impressions: Impressions Venous Duplex 04/13/22 12:37 IMPRESSION: * No evidence of deep vein thrombosis in the the femoral or popliteal veins to level of the trifurcation, bilaterally. * Although no venous thrombosis is detected, the deep calf veins on the left are difficult to visualize, and a repeat Doppler ultrasound may be considered in 5-7 days if there is any ongoing clinical suspicion. Assessment and Plan (1) Cellulitis of right lower leg: Status: Acute (2) Hypomagnesemia: Status: Acute (3) Acute hypokalemia: Status: Acute Plan Patient with htn, hx caterina,, hx alcoholic hepaitis, ascending aortic dilitation, iron deficiency anemia, hld, chronic venous stasis dermatitis, history of DVT and morbid obesity with BMI >41 admitted to the hospital for RLE cellulitis and electrolyte anbormality. 1- Acute right lower leg cellulitis- in the setting of chronic venous stasis dermatitis and lymphedema -Elevated ESR/CRP with mild leukocytosis -Received IV vanco and IV zosyn in ED. Continue IV cefazolin 1g q8h -Ultrasound negative for DVT -Xray hip ordered -Oxycodone and morphine per pain scale 2-Hypomagnesia- possibly related to diuretic usage -Received 2gm IV in ED. Repeat 2gm IV tonght and resume home PO [id number] BID -Repeat mag am 3-Hypokalemia- likely secondary to diuretic use -Received 40meq in ED. Initiate 20meq BID in am -Repeat BMP am 4-Elevated LFTs- hx alcoholic hepatitis though patient reports only occassional alcohol consumption -Bilirubin steadily increasing since November, now total bili 2.2 -Requries follow up outpaient 5-HTN -Continue lisinopril, spironolactone, torsemide, and metorolol from home 6-HDL -Continue rosuvastatin 7-Iron deficiency anemia- stable -Continue ferrous sulfate -Follow up outpt with PCP DVT prophylaxis- lovenox Full code Patient requires inpatient stay of at least 2 midnights for treatment of acute cellulitis requiring IV antibiotics as patient has been febrile with leukocytosis and elevated inflammatory markers. He also has critically low hypomagnesia requiring IV repletion and monitoring of electrolyte levels. Quality Stroke Does the patient have a stroke diagnosis?: No VTE Prior VTE?: No VTE Risk Level:: Medical - moderate - high VTE Device Contraindication: Treatment Not Indicated VTE Drug Contraindication: N/A - Med Ordered
[2022-04-13] MEDS: Magnesium Sulfate/H2O 2 GM/50 ML PIGGYBACK IV ×2 (14:42→20:18)
--- NOTE | 2022-04-13 17:15 | MHC.CM.PN ---
CM attempted to meet with admitted patient with bed assignment pending. No IMM needed. HCP on file has no date. Will need to complete another. CM will complete CM d/c planning when patient wakes. CM to follow for d/c needs.
--- NOTE | 2022-04-13 19:05 | MHC.CM.PN ---
CM met with admitted patient with bed assignment pending. Pt A&Ox4. Very pleasant man. HCP on file changed, as it was not dated and pt states his mother is getting forgetful. HCP reviewed, completed and signed. Copies given. Uploaded into [employer] and [facility] [employer]. HCP/sister Niharika Meade ([phone]). Pt lives with his mother and cares for her. Pt has a cane and walker. Has no services. Usually takes bus transportation. Pt has had difficulty ambulating due to pain. Pt agreeable to PT evaluation if pain does not improve. Pt is agreeable to home PT, but not STR.Vax/boosted x2/Moderna. D/C plan is home with ? home PT. Pt to arrange transportation. CM to follow for d/c needs.
[2022-04-13] MEDS: Calcium + Vitamin D 250 MG TABLET 500 MG PO (20:17)
[2022-04-13] MEDS: Atorvastatin Calcium 20 MG TABLET PO (20:17)
[2022-04-13] MEDS: Ascorbic Acid 500 MG TABLET PO (20:17)
[2022-04-13] MEDS: Ferrous Sulfate 324 MG TABLET.DR PO (20:17)
[2022-04-13] MEDS: Magnesium Oxide 400 MG TABLET PO (20:17)
[2022-04-14] VITALS (7 sets, daily range): BP systolic 130–165; BP diastolic 60–89; PULSE 60–94; RESP 16–20; TEMP 36.3–38.8; O2SAT 94–98
[2022-04-14] MEDS: Acetaminophen 325 MG TABLET 650 MG PO ×2 (00:49→20:49)
[2022-04-14 01:05] LABS: Lactic Acid 0.5 mmol/L (0.5-2.0)
[2022-04-14] MEDS: oxyCODONE HCl Immed Release 5 MG TABLET PO (06:21)
[2022-04-14 06:51] LABS: Anion Gap 17 (12-20); Blood Urea Nitrogen 13 mg/dL (9-16); Calcium 7.9 mg/dL (8.4-10.2); Carbon Dioxide 28 mmol/L (22-29); Chloride 100 mmol/L (96-108); Creatinine Clr Calc Pharmacy 110.2; Estimated Glomerular Filt Rate > 60; Glucose Random 110 mg/dL (60-115); Magnesium 1.9 mg/dL (1.6-2.6); Sodium 142 mmol/L (135-145)
[2022-04-14] MEDS: Potassium Chloride ER 20 MEQ TAB.ER.PRT PO (09:41)
[2022-04-14] MEDS: Calcium + Vitamin D 250 MG TABLET 500 MG PO ×2 (09:41→20:49)
[2022-04-14] MEDS: Metoprolol Succinate ER 25 MG TAB.ER.24H 75 MG PO (09:41)
[2022-04-14] MEDS: Torsemide 20 MG TABLET 40 MG PO (09:42)
[2022-04-14] MEDS: lisinopriL 5 MG TABLET PO (09:42)
[2022-04-14] MEDS: Ferrous Sulfate 324 MG TABLET.DR PO ×2 (09:42→20:49)
[2022-04-14] MEDS: Spironolactone 25 MG TABLET PO (09:42)
[2022-04-14] MEDS: allopurinoL 300 MG TABLET PO (09:42)
[2022-04-14] MEDS: allopurinoL 100 MG TABLET PO (09:42)
[2022-04-14] MEDS: Ascorbic Acid 500 MG TABLET PO ×2 (09:42→20:49)
[2022-04-14] MEDS: Magnesium Oxide 400 MG TABLET PO ×2 (09:42→20:49)
--- NOTE | 2022-04-14 10:36 | PC.NURSE ---
REPORT GIVEN TO ROSALINDA DUMONT. PT WILL BE TRANSPORTED TO ROOM 357 BY ED RN. PT AWARE OF PLAN OF CARE. VSS.
--- NOTE | 2022-04-14 14:52 | HO.PM.IMPN ---
Subjective Subjective Date of Service: 04/14/22 Interval History: no acute issues overnight Review of Systems denies chest pain Denies shortness of breath Denies nausea vomiting diarrhea Admits to pain right lower extremity that has improved since admission Physical Exam Vital Signs: Vital Signs: Last Vital Signs Temp 99.3 F 04/14/22 11:00 Pulse 74 04/14/22 11:00 Resp 17 04/14/22 11:00 BP 135/77 04/14/22 11:00 Pulse Ox 96 04/14/22 11:00 O2 Del Method 04/14/22 11:00 BMI result Body Mass Index 41.1 Const: Other: no acute issues overnight Resp: Other: clear to auscultation bilaterally no rales rhonchi or wheezes Cardio: Other: no S4; positive S1-S2; no S3 murmurs rubs or gallops GI: Other: soft nontender nondisten Extrem: Other: right greater than left lower extremity edema /erythema Objective Data Active Medications Acetaminophen (Acetaminophen 325 Mg Tablet) 650 mg PO Q6H PRN PRN Reason: Pain, Mild (Pain Scale 1-3) Last Admin: 04/14/22 00:49 Dose: 650 mg Documented By: MATHEUS Allopurinol (Allopurinol 100 Mg Tablet) 100 mg PO DAILY [facility] Last Admin: 04/14/22 09:42 Dose: 100 mg Documented By: EZEQUIEL Allopurinol (Allopurinol 300 Mg Tablet) 300 mg PO DAILY [facility] Last Admin: 04/14/22 09:42 Dose: 300 mg Documented By: EZEQUIEL Ascorbic Acid (Ascorbic Acid 500 Mg Tablet) 500 mg PO BID [facility] Last Admin: 04/14/22 09:42 Dose: 500 mg Documented By: EZEQUIEL Atorvastatin Calcium (Atorvastatin Calcium 20 Mg Tablet) 20 mg PO BEDTIME [facility] Last Admin: 04/13/22 20:17 Dose: 20 mg Documented By: SHANNON Calcium Carbonate/Cholecalciferol (Calcium + Vitamin D 250 Mg Tablet) 500 mg PO BID [facility] Last Admin: 04/14/22 09:41 Dose: 500 mg Documented By: EZEQUIEL Enoxaparin Sodium (Enoxaparin Sodium 40 Mg/0.4 Ml Syringe) 40 mg SUBCUT Q24H [facility] Last Admin: 04/13/22 16:11 Dose: Not Given Documented By: SHANNON Non-Admin Reason: Patient Refused Ferrous Sulfate (Ferrous Sulfate 324 Mg Tablet.) 324 mg PO BID [facility] Last Admin: 04/14/22 09:42 Dose: 324 mg Documented By: EZEQUIEL Cefazolin Sodium 1 gm/ Sodium (Chloride) 50 mls @ 100 mls/hr IV Q8H [facility] Last Infusion: 04/14/22 10:10 Dose: 0 mls/hr Documented By: REMINGTON Lisinopril (Lisinopril 5 Mg Tablet) 5 mg PO DAILY [facility]; Protocol Last Admin: 04/14/22 09:42 Dose: 5 mg Documented By: EZEQUIEL Magnesium Oxide (Magnesium Oxide 400 Mg Tablet) 400 mg PO BID [facility] Last Admin: 04/14/22 09:42 Dose: 400 mg Documented By: EZEQUIEL Metoprolol Succinate (Metoprolol Succinate Er 25 Mg Tab.Er.24h) 75 mg PO DAILY [facility]; Protocol Last Admin: 04/14/22 09:41 Dose: 75 mg Documented By: EZEQUIEL Morphine Sulfate (Morphine Sulfate 2 Mg/Ml Cartridge) 1 mg IVPUSH Q4H PRN; Protocol PRN Reason: Pain, Severe (Pain Scale 7-10) Oxycodone HCl (Oxycodone Hcl Immed Release 5 Mg Tablet) 5 mg PO Q6H PRN PRN Reason: Pain, Moderate (Pain Scale 4-6 Last Admin: 04/14/22 06:21 Dose: 5 mg Documented By: MATHEUS Pharmacy Consult (Consult Rx Perform Med Rec) 1 each MISCELLANE ONCE PRN PRN Reason: Consult order Pharmacy Consult (Consult Rx Vancomycin Dosing) 1 each MISCELLANE DAILY PRN PRN Reason: Consult order Potassium Chloride (Potassium Chloride Er 20 Meq Tab.Er.Prt) 20 meq PO BID [facility] Last Admin: 04/14/22 09:41 Dose: 20 meq Documented By: EZEQUIEL Sodium Chloride (0.9 % Sodium Chloride Flush 3 Ml Syringe) 3 ml IVFLUSH QSHIFT [facility] Last Admin: 04/14/22 08:00 Dose: Not Given Documented By: EZEQUIEL Non-Admin Reason: IV Running Spironolactone (Spironolactone 25 Mg Tablet) 25 mg PO DAILY [facility]; Protocol Last Admin: 08/27/22 09:42 Dose: 25 mg Documented By: EZEQUIEL Torsemide (Torsemide 20 Mg Tablet) 40 mg PO DAILY [facility]; Protocol Last Admin: 04/14/22 09:42 Dose: 40 mg Documented By: EZEQUIEL Labs CBC & Chem 7: 04/13/22 09:38 04/14/22 06:16 Labs: Laboratory Results - last 24 hr 04/14/22 04/14/22 00:47 06:16 Anion Gap 17 Estim Creat Clear Calc 110.2 Estimated GFR > 60 Random Glucose 110 Lactic Acid 0.5 Calcium 7.9 L Magnesium 1.9 Microbiology Microbiology Results: Microbiology 04/13/22 09:41 Blood Culture - Preliminary Blood - Venous No growth after 24 hours. 04/13/22 09:38 Blood Culture - Preliminary Blood - Venous No growth after 24 hours. Assessment and Plan (1) Cellulitis of right lower leg: Status: Acute (2) HTN (hypertension): Status: Acute Plan Patient with htn, hx caterina,, hx alcoholic hepaitis, ascending aortic dilitation, iron deficiency anemia, hld, chronic venous stasis dermatitis, history of DVT and morbid obesity with BMI >41 admitted to the hospital for RLE cellulitis and electrolyte anbormality. 1.Acute right lower leg cellulitis( in the setting of chronic venous stasis dermatitis and lymphedema) -Elevated ESR/CRP with mild leukocytosis -follow WBCs -Oxycodone and morphine per pain scale 2-Hypomagnesia/Hypokalemia -aggressive repletion -follow renals/divalents 4.Elevated TBili - remaining LFTs normal - likely [place] disease 5-HTN - acceptable control on current therapies -Continue lisinopril, spironolactone, torsemide, and metorolol from home 6-HDL -Continue rosuvastatin DVT prophylaxis- lovenox Full code will require ongoing hospitalization for IV antibiotics to treat cellulitis and IV repletion of potassium Quality Stroke Does the patient have a stroke diagnosis?: No VTE Prior VTE?: No VTE Risk Level:: Medical - moderate - high VTE Device Contraindication: Treatment Not Indicated VTE Drug Contraindication: N/A - Med Ordered
[2022-04-14] MEDS: Enoxaparin Sodium 40 MG/0.4 ML SYRINGE SUBCUT (15:49)
[2022-04-14] MEDS: Potassium Chloride Packet 20 MEQ PACKET 40 MEQ PO ×2 (15:49→20:49)
[2022-04-14] MEDS: 0.9 % Sodium Chloride Flush 3 ML SYRINGE IVFLUSH ×2 (15:50→20:50)
[2022-04-14] MEDS: Atorvastatin Calcium 20 MG TABLET PO (20:49)
[2022-04-15 03:37] VITALS: BP 138/70; PULSE 58; RESP 17; TEMP 36.3; O2SAT 96
[2022-04-15 06:07] LABS: MANUAL DIFF FLAG NO
[2022-04-15 06:18] LABS: Basophils Absolute Auto 0.1 X10*3/uL (0.0-0.2); Eosinophils Absolute Auto 0.4 X10*3/uL (0.0-0.4); Eosinophils Percent Auto 4.2 % (0-4); Hematocrit 29.9 % (42.0-52.0); Hemoglobin 9.1 g/dl (14.0-18.0); Imm Gran Abs Auto 0.08 X10*3/uL (0.00-0.03); Imm Gran Pct Auto 0.9 % (0.0-0.4); Lymphocytes Absolute Auto 1.5 X10*3/uL (1.2-4.9); Lymphocytes Percent Auto 16.3 % (20-40); Mean Corpuscular HGB Conc 30.4 g/dl (31.0-36.0); Mean Corpuscular Hemoglobin 23.6 pg (27.0-33.0); Mean Corpuscular Volume 77.5 fL (80.0-98.0); Mean Platelet Volume 9.5 fL (9.4-12.4); Monocytes Absolute Auto 1.2 X10*3/uL (0.1-1.2); Monocytes Percent Auto 13.1 % (2-11); Neutrophils Absolute Auto 5.8 x10*3/uL (2.0-8.3); Neutrophils Percent Auto 64.5 % (45-73); Platelet Count 166 X10*3/uL (160-400); Red Blood Count 3.86 X10*6/uL (4.60-5.80); Red Cell Distribution Width 16.3 % (11.0-16.0)
[2022-04-15 06:56] LABS: Alanine Aminotransferase < 6 U/L (0-40); Albumin Level 3.4 g/dL (3.5-5.0); Alkaline Phosphatase 99 U/L (39-117); Anion Gap 15 (12-20); Aspartate Amino Transferase 9 U/L (5-37); Bilirubin Total 0.8 mg/dL (0.0-1.0); Blood Urea Nitrogen 19 mg/dL (9-16); Calcium 8.3 mg/dL (8.4-10.2); Carbon Dioxide 28 mmol/L (22-29); Chloride 99 mmol/L (96-108); Creatinine Clr Calc Pharmacy 90.6; Estimated Glomerular Filt Rate > 60; Glucose Fasting 105 mg/dL (60-99); Potassium 3.5 mmol/L (3.3-5.1); Sodium 138 mmol/L (135-145); Total Protein 6.7 g/dL (6.5-8.0)
[2022-04-15] MEDS: 0.9 % Sodium Chloride Flush 3 ML SYRINGE IVFLUSH ×3 (07:35→20:40)
[2022-04-15] MEDS: Ascorbic Acid 500 MG TABLET PO ×2 (07:38→20:41)
[2022-04-15] MEDS: Spironolactone 25 MG TABLET PO (07:38)
[2022-04-15] MEDS: Ferrous Sulfate 324 MG TABLET.DR PO ×2 (07:38→20:41)
[2022-04-15] MEDS: Metoprolol Succinate ER 25 MG TAB.ER.24H 75 MG PO (07:38)
[2022-04-15] MEDS: Torsemide 20 MG TABLET 40 MG PO (07:39)
[2022-04-15] MEDS: lisinopriL 5 MG TABLET PO (07:39)
[2022-04-15] MEDS: Calcium + Vitamin D 250 MG TABLET 500 MG PO ×2 (07:40→20:40)
[2022-04-15 07:47] VITALS: BP 154/75; PULSE 69; RESP 18; TEMP 36.9; O2SAT 96
[2022-04-15] MEDS: Magnesium Oxide 400 MG TABLET PO ×2 (08:38→20:41)
[2022-04-15] MEDS: allopurinoL 100 MG TABLET PO (08:38)
[2022-04-15] MEDS: allopurinoL 300 MG TABLET PO (08:39)
[2022-04-15 11:27] VITALS: BP 143/72; PULSE 67; RESP 18; TEMP 37.2; O2SAT 94
--- NOTE | 2022-04-15 12:07 | HO.PM.IMPN ---
Subjective Subjective Date of Service: 04/15/22 Interval History: Improved overnight; patient states less pain and more movement Review of Systems denies chest pain Denies shortness of breath Denies nausea vomiting diarrhea Admits to pain right lower extremity that has improved since admission Physical Exam Vital Signs: Vital Signs: Last Vital Signs Temp 98.9 F 04/15/22 11:27 Pulse 67 04/15/22 11:27 Resp 18 04/15/22 11:27 BP 143/72 H 04/15/22 11:27 Pulse Ox 94 04/15/22 11:27 O2 Del Method 04/15/22 11:27 BMI result Body Mass Index 41.1 Const: Other: no acute issues overnight Resp: Other: clear to auscultation bilaterally no rales rhonchi or wheezes Cardio: Other: no S4; positive S1-S2; no S3 murmurs rubs or gallops GI: Other: soft nontender nondisten Extrem: Other: right greater than left lower extremity edema /erythema Objective Data Active Medications Acetaminophen (Acetaminophen 325 Mg Tablet) 650 mg PO Q6H PRN PRN Reason: Pain, Mild (Pain Scale 1-3) Last Admin: 04/14/22 20:49 Dose: 650 mg Documented By: KELSEY Allopurinol (Allopurinol 100 Mg Tablet) 100 mg PO DAILY [facility] Last Admin: 04/15/22 08:38 Dose: 100 mg Documented By: BREA Allopurinol (Allopurinol 300 Mg Tablet) 300 mg PO DAILY [facility] Last Admin: 04/15/22 08:39 Dose: 300 mg Documented By: BREA Ascorbic Acid (Ascorbic Acid 500 Mg Tablet) 500 mg PO BID [facility] Last Admin: 04/15/22 07:38 Dose: 500 mg Documented By: BREA Atorvastatin Calcium (Atorvastatin Calcium 20 Mg Tablet) 20 mg PO BEDTIME [facility] Last Admin: 04/14/22 20:49 Dose: 20 mg Documented By: KELSEY Calcium Carbonate/Cholecalciferol (Calcium + Vitamin D 250 Mg Tablet) 500 mg PO BID [facility] Last Admin: 04/15/22 07:40 Dose: 500 mg Documented By: BREA Enoxaparin Sodium (Enoxaparin Sodium 40 Mg/0.4 Ml Syringe) 40 mg SUBCUT Q24H [facility] Last Admin: 04/14/22 15:49 Dose: 40 mg Documented By: JULI Ferrous Sulfate (Ferrous Sulfate 324 Mg Tablet.) 324 mg PO BID [facility] Last Admin: 04/15/22 07:38 Dose: 324 mg Documented By: BREA Cefazolin Sodium 1 gm/ Sodium (Chloride) 50 mls @ 100 mls/hr IV Q8H [facility] Last Infusion: 04/15/22 09:33 Dose: 0 mls/hr Documented By: BREA Lisinopril (Lisinopril 5 Mg Tablet) 5 mg PO DAILY [facility]; Protocol Last Admin: 04/15/22 07:39 Dose: 5 mg Documented By: BREA Magnesium Oxide (Magnesium Oxide 400 Mg Tablet) 400 mg PO BID [facility] Last Admin: 04/15/22 08:38 Dose: 400 mg Documented By: BREA Metoprolol Succinate (Metoprolol Succinate Er 25 Mg Tab.Er.24h) 75 mg PO DAILY [facility]; Protocol Last Admin: 04/15/22 07:38 Dose: 75 mg Documented By: BREA Morphine Sulfate (Morphine Sulfate 2 Mg/Ml Cartridge) 1 mg IVPUSH Q4H PRN; Protocol PRN Reason: Pain, Severe (Pain Scale 7-10) Oxycodone HCl (Oxycodone Hcl Immed Release 5 Mg Tablet) 5 mg PO Q6H PRN PRN Reason: Pain, Moderate (Pain Scale 4-6 Last Admin: 04/14/22 06:21 Dose: 5 mg Documented By: MATHEUS Pharmacy Consult (Consult Rx Perform Med Rec) 1 each MISCELLANE ONCE PRN PRN Reason: Consult order Pharmacy Consult (Consult Rx Vancomycin Dosing) 1 each MISCELLANE DAILY PRN PRN Reason: Consult order Sodium Chloride (0.9 % Sodium Chloride Flush 3 Ml Syringe) 3 ml IVFLUSH QSHIFT [facility] Last Admin: 04/15/22 07:35 Dose: 3 ml Documented By: BREA Spironolactone (Spironolactone 25 Mg Tablet) 25 mg PO DAILY [facility]; Protocol Last Admin: 04/15/22 07:38 Dose: 25 mg Documented By: BREA Torsemide (Torsemide 20 Mg Tablet) 40 mg PO DAILY [facility]; Protocol Last Admin: 04/15/22 07:39 Dose: 40 mg Documented By: BREA Labs CBC & Chem 7: 04/15/22 05:52 04/15/22 05:52 Labs: Laboratory Results - last 24 hr 04/15/22 04/15/22 05:52 05:52 MCV 77.5 L MCH 23.6 L MCHC 30.4 L RDW 16.3 H Plt Count 166 MPV 9.5 Immature Gran % (Auto) 0.9 H Neut % (Auto) 64.5 Lymph % (Auto) 16.3 L [place] % (Auto) 13.1 H Eos % (Auto) 4.2 H Baso % (Auto) 1.0 Lymph # (Auto) 1.5 [place] # (Auto) 1.2 Eos # (Auto) 0.4 Baso # (Auto) 0.1 Abs Immat Gran (auto) 0.08 H Absolute Neuts (auto) 5.8 Absolute Nucleated RBC 0.000 Nucleated RBC % (auto) 0.0 Anion Gap 15 Estim Creat Clear Calc 90.6 Estimated GFR > 60 Fasting Glucose 105 H Calcium 8.3 L Total Bilirubin 0.8 AST 9 ALT < 6 Alkaline Phosphatase 99 Total Protein 6.7 Albumin 3.4 L Microbiology Microbiology Results: Microbiology 04/13/22 09:41 Blood Culture - Preliminary Blood - Venous No growth after 48 hours. 04/13/22 09:38 Blood Culture - Preliminary Blood - Venous No growth after 48 hours. 04/14/22 06:02 Blood Culture - Preliminary Blood - Venous No growth after 24 hours. 04/14/22 00:47 Blood Culture - Preliminary Blood - Venous No growth after 24 hours. Assessment and Plan (1) Cellulitis of right lower leg: Status: Acute (2) HTN (hypertension): Status: Acute Plan Patient with htn, hx caterina,, hx alcoholic hepaitis, ascending aortic dilitation, iron deficiency anemia, hld, chronic venous stasis dermatitis, history of DVT and morbid obesity with BMI >41 admitted to the hospital for RLE cellulitis and electrolyte anbormality. 1.Acute right lower leg cellulitis( in the setting of chronic venous stasis dermatitis and lymphedema) - improving . . . 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
[2022-04-15 15:11] VITALS: BP 129/61; PULSE 65; RESP 17; TEMP 37.2; O2SAT 95
[2022-04-15] MEDS: Acetaminophen 325 MG TABLET 650 MG PO (16:21)
[2022-04-15] MEDS: Enoxaparin Sodium 40 MG/0.4 ML SYRINGE SUBCUT (16:22)
[2022-04-15 19:31] VITALS: BP 133/71; PULSE 62; RESP 17; TEMP 36.7; O2SAT 94
[2022-04-15] MEDS: Atorvastatin Calcium 20 MG TABLET PO (20:41)
[2022-04-16] VITALS: BP 134/70; PULSE 66; RESP 18; TEMP 36.8; O2SAT 95
[2022-04-16 03:47] VITALS: BP 135/75; PULSE 62; RESP 18; TEMP 36.5; O2SAT 95
[2022-04-16 05:51] LABS: MANUAL DIFF FLAG NO
[2022-04-16 06:03] LABS: Basophils Absolute Auto 0.1 X10*3/uL (0.0-0.2); Basophils Percent Auto 1.2 % (0-2); Eosinophils Absolute Auto 0.5 X10*3/uL (0.0-0.4); Eosinophils Percent Auto 5.3 % (0-4); Hematocrit 28.6 % (42.0-52.0); Hemoglobin 8.8 g/dl (14.0-18.0); Imm Gran Abs Auto 0.04 X10*3/uL (0.00-0.03); Imm Gran Pct Auto 0.5 % (0.0-0.4); Lymphocytes Absolute Auto 1.6 X10*3/uL (1.2-4.9); Lymphocytes Percent Auto 19.3 % (20-40); Mean Corpuscular HGB Conc 30.8 g/dl (31.0-36.0); Mean Corpuscular Hemoglobin 23.8 pg (27.0-33.0); Mean Corpuscular Volume 77.5 fL (80.0-98.0); Monocytes Percent Auto 11.9 % (2-11); Neutrophils Absolute Auto 5.2 x10*3/uL (2.0-8.3); Neutrophils Percent Auto 61.8 % (45-73); Platelet Count 230 X10*3/uL (160-400); Red Blood Count 3.69 X10*6/uL (4.60-5.80); White Blood Count 8.4 X10*3/uL (4.8-10.8)
[2022-04-16 06:27] LABS: Alanine Aminotransferase < 6 U/L (0-40); Albumin Level 3.3 g/dL (3.5-5.0); Alkaline Phosphatase 99 U/L (39-117); Anion Gap 15 (12-20); Aspartate Amino Transferase 10 U/L (5-37); Bilirubin Total 0.7 mg/dL (0.0-1.0); Blood Urea Nitrogen 25 mg/dL (9-16); Calcium 8.3 mg/dL (8.4-10.2); Carbon Dioxide 28 mmol/L (22-29); Chloride 99 mmol/L (96-108); Creatinine Clr Calc Pharmacy 94.1; Estimated Glomerular Filt Rate > 60; Glucose Fasting 114 mg/dL (60-99); Potassium 3.4 mmol/L (3.3-5.1); Sodium 139 mmol/L (135-145); Total Protein 6.6 g/dL (6.5-8.0)
[2022-04-16 07:25] VITALS: BP 131/63; PULSE 56; RESP 18; TEMP 36.3; O2SAT 96
[2022-04-16] MEDS: Ascorbic Acid 500 MG TABLET PO (08:32)
[2022-04-16] MEDS: Torsemide 20 MG TABLET 40 MG PO (08:32)
[2022-04-16] MEDS: Magnesium Oxide 400 MG TABLET PO (08:32)
[2022-04-16] MEDS: Calcium + Vitamin D 250 MG TABLET 500 MG PO (08:32)
[2022-04-16] MEDS: lisinopriL 5 MG TABLET PO (08:32)
[2022-04-16] MEDS: Spironolactone 25 MG TABLET PO (08:32)
[2022-04-16] MEDS: allopurinoL 300 MG TABLET PO (08:32)
[2022-04-16] MEDS: Metoprolol Succinate ER 25 MG TAB.ER.24H 75 MG PO (08:32)
[2022-04-16] MEDS: allopurinoL 100 MG TABLET PO (08:33)
[2022-04-16] MEDS: 0.9 % Sodium Chloride Flush 3 ML SYRINGE IVFLUSH (08:33)
[2022-04-16] MEDS: Ferrous Sulfate 324 MG TABLET.DR PO (08:33)
[2022-04-16 11:05] VITALS: BP 153/70; PULSE 64; RESP 18; TEMP 37.2; O2SAT 96
--- NOTE | 2022-04-16 12:00 | PM.DS ---
DS: Providers Provider Date of Service: 04/16/22 Date of admission: 04/13/22 13:25 Date of discharge: 04/16/22 Primary care physician: Samantha Gonzales MD DS: Diagnosis Discharge Diagnosis (1) Cellulitis of right lower leg: Status: Acute (2) HTN (hypertension): Status: Acute DS: Summary Hospital Course Hospital Course: Patient with htn, ckd, ascending aortic dilitation, iron deficiency anemia, hld, chronic venous stasis dermatitis, history of DVT and morbid obesity with BMI >41 presented to the ED this morning complaining of pain and redness RLE. States he received his shingrix vaccine 5 days ago and the next day woke up with significant pain in the right groin. The next day reports pain from the groin to the right foot rated as a 10/10, unable to bear weight. Had been taking tylenol at home without relief. In the ER, thought to have cellulitis and given empiric dose of vancomycin and zosyn. Mild leukocytosis 11.9, elevated ESR? 78, CRP 15.32. Critically low mag 0.9, received 2gm IV in the ed. Potassium low 3.2. Elevated bilirubin 2.2. Venous doppler negative for DVT. patient admitted to general medical floor given Kefzol IV. Over the next 48 hours leg returned To normal color in size. At this point he is requesting discharge and is medically stable for the same. He will complete a 7 day course of Keflex and follow-up with PCP Time Spent with Patient Time attestation: Total time spent providing and/or coordinating discharge services: Discharge coordination time: Greater than 30 minutes Quality: Safe Use of Opioids Does Pt have an Active Cancer Diagnosis on the Problem List?: No Quality: Stroke Does the patient have a stroke diagnosis?: No Physical Exam Vital Signs: Vital Signs: Last Vital Signs Temp 98.9 F 04/16/22 11:05 Pulse 64 04/16/22 11:05 Resp 18 04/16/22 11:05 BP 153/70 H 04/16/22 11:05 Pulse Ox 96 04/16/22 11:05 O2 Del Method 04/16/22 11:05 BMI result Body Mass Index 41.1 Const: Other: no acute issues overnight Resp: Other: clear to auscultation bilaterally no rales rhonchi or wheezes Cardio: Other: no S4; positive S1-S2; no S3 murmurs rubs or gallops GI: Other: soft nontender nondisten Extrem: Other: right greater than left lower extremity edema /erythema DS: Data Data Completed and Pending Labs on day of discharge: Laboratory Results - last 24 hr 04/16/22 04/16/22 05:21 05:21 WBC 8.4 RBC 3.69 L Hgb 8.8 L Hct 28.6 L MCV 77.5 L MCH 23.8 L MCHC 30.8 L RDW 16.0 Plt Count 230 D MPV 10.0 Immature Gran % (Auto) 0.5 H Neut % (Auto) 61.8 Lymph % (Auto) 19.3 L [place] % (Auto) 11.9 H Eos % (Auto) 5.3 H Baso % (Auto) 1.2 Lymph # (Auto) 1.6 [place] # (Auto) 1.0 Eos # (Auto) 0.5 H Baso # (Auto) 0.1 Abs Immat Gran (auto) 0.04 H Absolute Neuts (auto) 5.2 Absolute Nucleated RBC 0.000 Nucleated RBC % (auto) 0.0 Sodium 139 Potassium 3.4 Chloride 99 Carbon Dioxide 28 Anion Gap 15 BUN 25 H Creatinine 1.03 Estim Creat Clear Calc 94.1 Estimated GFR > 60 Fasting Glucose 114 H Calcium 8.3 L Total Bilirubin 0.7 AST 10 ALT < 6 Alkaline Phosphatase 99 Total Protein 6.6 Albumin 3.3 L Preliminary micro results at discharge 04/14/22 06:02 Blood Culture - Preliminary Blood - Venous No growth after 48 hours. 04/14/22 00:47 Blood Culture - Preliminary Blood - Venous No growth after 48 hours. 04/13/22 09:41 Blood Culture - Preliminary Blood - Venous No growth after 48 hours. 04/13/22 09:38 Blood Culture - Preliminary Blood - Venous No growth after 48 hours. Discharge Plan Discharge Patient Disposition: Home, Self-Care Discharge Diagnosis: cellulitis right lower extremity Referrals: Samantha Gonzales MD [Primary Care Provider] - 1 Week Discharge Medications: New doxycycline hyclate 100 mg tablet 100 mg PO BID 7 Days Qty: 14 0RF Continued torsemide 20 mg Tablet 40 mg PO DAILY ascorbic acid (vitamin C) [Vitamin C] 500 mg Tablet 500 mg PO BID allopurinol 300 mg Tablet 300 mg PO DAILY Rx Instructions: take with 100 mg tablet calcium carbonate-vitamin D3 500 mg(1,250mg) -125 unit Tablet 1 tab PO BID magnesium oxide 400 mg magnesium Tablet 400 mg PO BID ferrous sulfate 325 mg (65 mg iron) Tablet 325 mg PO BID Qty: 60 3RF metoprolol succinate 50 mg tablet extended release 24 hr 75 mg PO DAILY allopurinol 100 mg tablet 1 tab PO DAILY Rx Instructions: Take with 300 mg tablet lisinopril 5 mg tablet 1 tab PO DAILY rosuvastatin 5 mg tablet 1 tab PO BEDTIME spironolactone 25 mg tablet 1 tab PO DAILY Discharge Orders: Discharge Order (Routine); Ordered 04/16/22 Ordered By: mAan Rogers Diet: Advance to usual diet Activity on Discharge: As tolerated Stand Alone Forms: Patient Portal Discharge page Care Plan Goals: complete course of doxycycline Health Concerns: follow-up with PCP as scheduled Plan of Treatment: resume all pre-hospital meds Assessment: see discharge summary
--- NOTE | 2022-04-16 12:06 | MHC.CM.PN ---
PATIENT HAS BEEN MEDICALLY CLEARED FOR DISCHARGE TODAY; DISCHARGE DISPOSITION IS HOME SELF-CARE. TRANSPORTATION ARRANGED VIA PATIENT.
== END 2022-04-16 13:20 | disposition home or self-care (01) | DRG 383 ==
LOC: HO.ED 11:11 → HO.EDOVER 13:47 → HO.S3 04-14 09:36
PROVIDERS: Internal Medicine; Physician Assistant; Admitting Provider Physician Assistant; Emergency Provider Emergency Medicine; PCP Family Medicine; Visit Provider Hospitalist
DX: L03.115 Cellulitis of right lower limb (principal); D63.1 Anemia in chronic kidney disease; D50.9 Iron deficiency anemia, unspecified; E66.01 Morbid (severe) obesity due to excess calories; E83.42 Hypomagnesemia; I12.9 Hypertensive chronic kidney disease with stage 1 through stage 4 chronic kidney disease, or unspecified chronic kidney disease; I87.8 Other specified disorders of veins; N18.9 Chronic kidney disease, unspecified; E78.5 Hyperlipidemia, unspecified; E87.6 Hypokalemia; Z68.41 Body mass index [BMI] 40.0-44.9, adult; Z20.822 Contact with and (suspected) exposure to COVID-19; Z86.718 Personal history of other venous thrombosis and embolism; Z88.1 Allergy status to other antibiotic agents; Z79.899 Other long term (current) drug therapy
CPT/HCPCS: 36415; 73502; 80048; 80053; 80076; 81001; 83605; 83735; 83880; 85025; 85610; 85652; 85730; 86140; 87040; 87635; 93970; 96365; 96367; 99285; J0690; J1650; J2543; J3370; J3475

== ENCOUNTER 2022-05-04 08:35 | Outpatient (REF) | payer MEDICAID, SELFPAY ==
[2022-05-04 10:02] LABS: Anion Gap 21 (12-20); Blood Urea Nitrogen 18 mg/dL (9-16); Calcium 8.7 mg/dL (8.4-10.2); Carbon Dioxide 25 mmol/L (22-29); Chloride 102 mmol/L (96-108); Estimated Glomerular Filt Rate > 60; Magnesium 1.4 mg/dL (1.6-2.6); Sodium 144 mmol/L (135-145)
== END 2022-05-04 08:36 | disposition home or self-care (01) ==
LOC: HO.LAB 08:35
PROVIDERS: Absent Provider Internal Medicine Nephrology; PCP Family Medicine; Visit Provider Family Medicine
DX: I12.9 Hypertensive chronic kidney disease with stage 1 through stage 4 chronic kidney disease, or unspecified chronic kidney disease (principal); E79.0 Hyperuricemia without signs of inflammatory arthritis and tophaceous disease; N18.30 Chronic kidney disease, stage 3 unspecified
CPT/HCPCS: 36415; 80051; 82310; 82565; 83735; 84520; 84550

== ENCOUNTER 2022-07-28 14:11 | Emergency (ER) | payer MEDICAID, SELFPAY ==
--- NOTE | ~2022-07-28 | CT_ITS ---
EXAMINATION: CT HEAD WITHOUT CONTRAST CT CERVICAL SPINE WITHOUT CONTRAST CLINICAL INFORMATION: Headache. Head injury. COMPARISON: CT head CT cervical spine 07/03/2009 TECHNIQUE: Imaging was performed from the skull base to vertex without intravenous administration of contrast. In addition, helical noncontrast CT imaging was acquired through the cervical spine and source images were reviewed along with axial reconstructions and sagittal and coronal MPRs. [This CT examination was performed using dose optimization techniques as appropriate, variously including the following: *Automated exposure control *Adjustment of mA and/or kV according to patient size (this includes techniques or standardized protocols for targeted exams where dose is matched to indication/reason for exam; i.e. extremities or head) *Use of iterative reconstruction technique] DLP: 1338 mGy-cm FINDINGS: HEAD: No intracranial mass, hemorrhage, or midline shift is visualized. There is generalized global volume loss. There is moderate prominence of the ventricles and the sulci . There is mild hypodensity of the periventricular white matter due to chronic small vessel ischemic disease. There are vascular calcifications of the internal carotid arteries bilaterally. . No extra-axial collections are identified. The paranasal sinuses and mastoid air cells are well aerated. CERVICAL SPINE: There is no evidence of acute cervical spine fracture. Vertebral bodies remain normal in height. Cervical vertebrae have normal alignment. There is multilevel degenerative spondylosis of the cervical spine with disc height narrowing and endplate spurs and facet joint arthrosis No pre- or paravertebral soft tissue abnormality is identified. Limited assessment of the lung apices is unremarkable. CT/CT cervical spine wo IV con IMPRESSION: 1. No acute intracranial pathology. 2. No CT evidence of acute cervical spine fracture or traumatic subluxation
[2022-07-28 14:19] VITALS: BP 149/88; BP 160/90; PULSE 78; PULSE 91; RESP 18; TEMP 35.9; O2SAT 97; BMI 39.9
--- NOTE | 2022-07-28 14:55 | ED_ITS ---
HPI - Fall General Chief Complaint: Fall Stated Complaint: ETOH Fall Time Seen by Provider: 07/28/22 14:13 Source: patient Mode of arrival: EMS Limitations: no limitations History of Present Illness HPI Narrative: 62-year-old male patient who presents emergency department by ambulance for evaluation of a fall. Patient states that he drink at least 8 oz of vodka today. He states that he was sitting in a chair in his garage got up to walk down his driveway. He states these driveway has a 45 degree incline and he slipped and fell landing on his face. He believes that he lost consciousness but cannot report how long he was unconscious for. He states that he was lying in the driveway his neighbor saw him and called an ambulance. Patient was unable to get up and when the ambulance arrived he did not want to come to the hospital however EMS was able to convince him to come for evaluation. The patient does have a abrasion to his nose and he has blood on his hands. He is awake, alert cooperative and does agree to stay in the hospital for evaluation. At this time has no complaints. He denies headache, neck pain, chest pain, nausea, vomiting, weakness. Patient however does appear to be in intoxicated The patient does not know when his last tetanus shot was given, he believes that was given more than 5 years prior. MD complaint: fall Onset (ago): hour(s) (1) Fall from: standing Fall witnessed: yes, by bystander Place fall occurred: home Loss of consciousness: yes Prolonged down time: no Symptoms prior to fall: none Context: tripped/slipped Location of injury: head and other (Nose) Related Data Home Medications Medication Instructions Recorded Confirmed allopurinol 300 mg tablet 300 mg PO DAILY 06/07/20 04/13/22 ascorbic acid (vitamin C) 500 mg 500 mg PO BID 06/07/20 04/13/22 tablet (Vitamin C) calcium carbonate 500 mg-vitamin 1 tab PO BID 06/07/20 04/13/22 D3 3.125 mcg (125 unit) tablet magnesium oxide 400 mg PO BID 06/07/20 04/13/22 torsemide 20 mg tablet 40 mg PO DAILY 06/07/20 04/13/22 allopurinol 100 mg tablet 1 tab PO DAILY 01/22/22 04/13/22 lisinopril 5 mg tablet 1 tab PO DAILY 01/22/22 04/13/22 metoprolol succinate 50 mg 75 mg PO DAILY 01/22/22 04/13/22 tablet,extended release 24 hr rosuvastatin 5 mg tablet 1 tab PO BEDTIME 01/22/22 04/13/22 spironolactone 25 mg tablet 1 tab PO DAILY 04/13/22 04/13/22 Previous Rx's Medication Instructions Recorded ferrous sulfate 325 mg (65 mg 325 mg PO BID #60 tabs 11/30/21 iron) tablet doxycycline hyclate 100 mg tablet 100 mg PO BID 7 days #14 tabs 04/16/22 Allergies Allergy/AdvReac Type Severity Reaction Status Date / Time azithromycin [AZITHROMYCIN] Allergy Severe FACIAL Verified 11/30/21 09:19 SWELLING hydrochlorothiazide [HCTZ] Allergy Severe Facial Verified 04/13/22 12:11 Swelling Review of Systems Review of Systems: Yes all other systems are reviewed and are negative [facility] Past Medical History [facility] Narrative: Social history: He denies tobacco use. He states he drinks alcohol daily. He had at least 8 oz of vodka to drink today. He denies drug use. Medical History Alcoholic steatohepatitis Anemia Anemia Ascending aortic aneurysm Chronic ulcer of leg Chronic venous stasis History of DVT of lower extremity History of rhabdomyolysis HTN (hypertension) Hx of lower gastrointestinal bleeding Hx of sepsis Hyperlipidemia DEBORAH (obstructive sleep apnea) Seborrheic dermatitis Surgical History Hx of colonoscopy Family History Family History Mother Dementia Maternal Grandmother Dementia Social History Social History Household Members: Family Housing: Apartment Do you presently have visiting nurse or other home services: No Alcohol intake: current Alcohol intake frequency: 3 or more drinks per day Alcohol type: beer Patient Tobacco Use Status: Never used Tobacco Advance Directives: Yes Advance Directives on File: Yes Advance Directives Date on File: 04/13/22 service: No Current occupational status: disabled Physical Exam Vital Signs: Vital Signs: Last Vital Signs Temp 97.1 F 07/28/22 15:41 Pulse 83 07/28/22 15:41 Resp 14 07/28/22 15:41 BP 137/83 07/28/22 15:41 Pulse Ox 100 07/28/22 15:41 O2 Del Method 07/28/22 15:41 BMI result Body Mass Index 39.9 Const: Other: Awake, alert, does appear to be intoxicated, answers all questions appropriately, cooperative, obvious abrasion to his nose and blood on his hands HEENT: Head: Yes normal to inspection, Yes normocephalic and Yes atraumatic Ears: external ears normal General nose exam: Normal external nose present Face and sinus: Yes other (Abrasions to nose) Mouth: Normal oral and palatal mucosa present Throat: Yes posterior oropharynx normal Eyes: General: appearance normal, both eyes and all related structures Pupils: Equal, round and reactive pupils present Neck: Neck: Yes normal visual inspection, Yes no lymphadenopathy, Yes trachea midline and Yes supple Chest: Chest palpation & inspection: normal inspection of the chest and normal palpation of entire chest wall Resp: Effort & Inspection: normal respiratory effort and able to speak in complete sentences Auscultation: clear to auscultation bilaterally Cardio: Rate: regular rate Rhythm: regular rhythm Heart sounds: S1 normal heart sound present, S2 normal heart sound present and no murmurs GI: Inspection: Yes normal to inspection Palpation (GI): Soft to palpation, nontender and no guarding Auscultation: normal bowel sounds : General: Yes no CVA tenderness Back/Spine/Pelvis: Back: no CVA tenderness Skin: General skin exam: no rashes or lesions noted Neuro: Cranial nerves: Yes CN's II-XII intact bilaterally and Yes Equal, round and reactive pupils present Cognition (Neuro): normal cognition Motor exam (neuro): 5/5 motor strength present throughout Extrem: Other: Patient is bloated hand most likely from his nose injury, do not see any lacerations. Psych: Appearance: grossly normal Speech and movement: Normal speech and movement present Affect: normal affect Attitude: cooperative Thought process: Normal thought process present Thought content: Normal thought content present Course Course Course Narrative: 62-year-old male who presents emergency department for evaluation of injuries from a fall, the patient was drinking vodka today. He states that he was sitting in his garage, got up from a chair and then slipped in his driveway landing face 1st. He believes that he lost consciousness but cannot quantify the amount of time he was unconscious for. States he was not able to get up off the driveway in his neighbor called an ambulance. He initially refused transport but paramedics were able to convince him to come for evaluation. Patient does appear to be acutely intoxicated, he does have an abrasion to his nose otherwise exam was unremarkable. I did order a CT scan of the head and neck. I ordered a Tdap to update his tetanus status. Patient's abrasions on his nose will be cleaned and dressed with bacitracin. 1800: CT scan of the patient's head and cervical spine was negative. I did discuss these findings with the patient. The patient was given printed and verbal instructions on head injury and on wound care and discharged home. Discharge Plan Discharge Clinical Impression: Fall Qualifiers: Encounter type: initial encounter Qualified Code(s): W19.XXXA - Unspecified fall, initial encounter Concussion with loss of consciousness Qualifiers: Encounter type: initial encounter Qualified Code(s): S06.0X9A - Concussion with loss of consciousness of unspecified duration, initial encounter Closed head injury Qualifiers: Encounter type: initial encounter Qualified Code(s): S09.90XA - Unspecified injury of head, initial encounter Injury of nose Qualifiers: Encounter type: initial encounter Qualified Code(s): S09.92XA - Unspecified injury of nose, initial encounter Patient Disposition: Home, Self-Care Instructions: Head Injury (ED), Concussion (ED), Abrasion (ED) Additional Instructions: The CT scan of your head and neck revealed no bleeding in your brain, skull fracture or neck fracture. Apply bacitracin to the abrasion on your nose twice a day for 1 week. Follow-up with your doctor in 2 days. Please return to the emergency department if your symptoms get worse or if you develop any symptoms that are concerning to you. Prescriptions: No Action torsemide 20 mg Tablet 40 mg PO DAILY ascorbic acid (vitamin C) [Vitamin C] 500 mg Tablet 500 mg PO BID allopurinol 300 mg Tablet 300 mg PO DAILY Rx Instructions: take with 100 mg tablet calcium carbonate-vitamin D3 500 mg(1,250mg) -125 unit Tablet 1 tab PO BID magnesium oxide 400 mg magnesium Tablet 400 mg PO BID ferrous sulfate 325 mg (65 mg iron) Tablet 325 mg PO BID Qty: 60 3RF metoprolol succinate 50 mg tablet extended release 24 hr 75 mg PO DAILY allopurinol 100 mg tablet 1 tab PO DAILY Rx Instructions: Take with 300 mg tablet lisinopril 5 mg tablet 1 tab PO DAILY rosuvastatin 5 mg tablet 1 tab PO BEDTIME spironolactone 25 mg tablet 1 tab PO DAILY doxycycline hyclate 100 mg tablet 100 mg PO BID 7 Days Qty: 14 0RF
--- OUTSIDE RECORDS SUMMARY | 2022-07-28 15:29 | XMS_ITS ---
:1960 Author Care Team Providers Name Role Phone [facility] OTHER [phone] RAJ GUTIERREZ MD Primary Care Provider [phone] Allergies Code Code System Name Reaction Severity Status Onset RxNorm Azithromycin ? ? Active ? 5487 RxNorm Hydrochlorothiazide ? ? Active ? Medications Notes: meds reviewed; see MAR for comp lete list Problems Name Status Onset Date Source ? Dyslipidemia Active 01/31/2022 ? Gout Active 01/31/2022 ? Hypomagnesemia Active 01/31/2022 ? Morbid Obesity Active 01/31/2022 ? Anemia Active 01/31/2022 ? Alcohol Dependence Active 01/31/2022 ? Obstructive Sleep Apnea Syndrome Active 01/31/2022 ? Essential Hypertension Active 01/31/2022 ? Congestive Heart Failure Active 01/31/2022 ? Stasis Dermatitis of Lower Limb Due to Chronic Peripheral Active 01/31/2022 ? Venous Hypertension Procedures None recorded. Results Lab Results None recorded. Past Encounters Encounter Date Diagnosis Provider 02/01/2022 Stasis Dermatitis of Lower Limb Due Neha Sousa MD: [address], to Chronic Peripheral Venous [place], [place] [address], Ph. [phone] Hypertension; Essential [phone] Hypertension; Congestive Heart Failure; Anemia; Alcohol Dependence; Dyslipidemia; Gout; Hypomagnesemia; Morbid Obesity; Obstructive Sleep Apnea Syndrome 01/29/2022 Stasis Dermatitis of Lower Limb Due Kian Hunt PA-C: [address], [place] [address], Ph. Hypertension; Essential Hypertension; Congestive Heart Failure; Anemia; Alcohol Dependence; Dyslipidemia; Gout; Hypomagnesemia; Morbid Obesity; Obstructive Sleep Apnea Syndrome; Advance Care Planning Social History Tobacco Smoking Status Never Smoker Vaccine List Vaccine Type COVID-19, mRNA, LNP-S, PF, 100 mcg/0.5 m L dose (Moderna) 11/21/2020 12/19/2020 07/19/2021 influenza, injectable, quadrivalent 07/20/2021 pneumococcal polysaccharide PPV23 07/21/2014 Plan of Care Reminders Provider Appointments None recorded. ? ? Lab None recorded. ? ? Referral None recorded. ? ? Procedures None recorded. ? ? Surgeries None recorded. ? ? Imaging None recorded. ? ? Vitals 02/01/2022 10:54AM Admitting H&P Height Weight BMI Blood Pressure 5 ft 7 in 269.8 lbs 42.3 kg/m2 118/63 mm[Hg] 01/29/2022 01:43PM Initial Intake Note Weight Blood Pressure 269.8 lbs 108/59 mm[Hg]
[2022-07-28 15:41] VITALS: BP 137/83; PULSE 83; RESP 14; TEMP 36.2; O2SAT 100
[2022-07-28] MEDS: Diphth,Pertus(ACell),Tet Adult 0.5 ML SYRINGE IM (17:57)
[2022-07-28] MEDS: Bacitracin Oint 14 GM TUBE 1 APPL TOPICAL (18:09)
== END 2022-07-28 18:24 | disposition home or self-care (01) ==
PROVIDERS: Emergency Provider Emergency Medicine Emergency Medical Services; PCP Family Medicine
DX: S06.0X9A Concussion with loss of consciousness of unspecified duration, initial encounter (principal); S00.31XA Abrasion of nose, initial encounter; W01.0XXA Fall on same level from slipping, tripping and stumbling without subsequent striking against object, initial encounter; Y93.9 Activity, unspecified; Y92.014 Private driveway to single-family (private) house as the place of occurrence of the external cause; Y99.9 Unspecified external cause status
CPT/HCPCS: 70450; 72125; 90471; 90715; 99283; 99284

== ENCOUNTER 2022-10-02 16:47 | Emergency (ER) | payer MEDICAID, SELFPAY ==
--- NOTE | ~2022-10-02 | CT_ITS ---
EXAMINATION: CT CHEST, ABDOMEN AND PELVIS WITH CONTRAST. CLINICAL INFORMATION: Reason for Exam trauma to abd fall ETOH . COMPARISON: No pertinent prior studies are available for comparison. TECHNIQUE: Multidetector volumetric imaging was performed from the thoracic inlet through the pubic symphysis following the administration of: Oral contrast: No Intravenous contrast: 85 mL Omnipaque 350 No contrast reaction reported Sagittal and coronal reformatted images were obtained on the technologist workstation. In addition, thin section, high resolution reconstruction, targeted reformatted images through the thoracic and lumbar spine were obtained with coronal and sagittal high resolution reformatted images as well. This CT examination was performed using dose optimization techniques as appropriate, variously including the following: *Automated exposure control *Adjustment of mA and/or kV according to patient size (this includes techniques or standardized protocols for targeted exams where dose is matched to indication/reason for exam; i.e. extremities or head) *Use of iterative reconstruction technique Total exam dose-length product 600 mGy-cm FINDINGS: CHEST: VASCULAR: The aorta is normal; no evidence of dissection, aneurysm, or traumatic aortic injury. The central pulmonary arteries enhance normally. AORTIC ISTHMUS: Normal. MEDIASTINUM: No mediastinal fluid or hematoma. No hilar or mediastinal lymphadenopathy. Small 7 mm right anterior preparacardiac lymph node. LUNG: No nodules, mass, or focal consolidation. PLEURA: No pleural effusion. No pneumothorax. No pleural mass or thickening. CHEST WALL/AXILLA: Unremarkable. ABDOMEN/PELVIS : LIVER : The liver is enlarged measuring 21 cm in cephalocaudad dimension. No focal hepatic lesion or biliary ductal dilatation is present. GALLBLADDER, AND BILIARY TREE The gallbladder is unremarkable with no evidence of radiopaque gallstones, gallbladder wall thickening, or obvious pericholecystic inflammatory changes. PANCREAS: Normal; no mass or surrounding fluid. SPLEEN: Spleen is enlarged measuring 15 cm in greatest transverse dimension ADRENAL GLANDS: Normal; no mass. KIDNEYS AND URETERS: The kidneys are normal in size, shape, and attenuation. A benign Bosniak class I left renal cyst is present which needs no additional imaging or follow-up. No hydronephrosis, hydroureter, or calculi. URINARY BLADDER: No focal mass or wall thickening seen. No bladder calculi. GASTROINTESTINAL TRACT: Stomach and small bowel non-dilated. There is colonic diverticula without diverticulitis. No colonic wall thickening or pericolonic inflammatory changes. Normal appendix. VASCULAR STRUCTURES: There is no evidence of aortic or iliac injury. The inferior vena cava is intact. ACTIVE BLEEDING: No. LYMPH NODES: Diane changes are present in the small bowel mesentery with small lymph nodes. Small bao hepatis and gastrohepatic ligament lymph nodes are present as well (for example 1.4 cm bao hepatis lymph node 6:30). PELVIC VISCERA: Prostate and seminal vesicles appear normal FREE FLUID: None. ABDOMINAL WALL: No significant hernia is appreciated. OSSEOUS STRUCTURES : No clavicle or scapula fracture. No displaced rib fracture seen. No sternal fracture seen. Normal sagittal alignment of the thoracic and lumbar spine. Vertebral body and disc heights are maintained; no compression fracture. Mild degenerative changes are present in the spine. Posterior elements intact. No sacral or pelvic fracture, The visualized hips are intact. Mild degenerative changes are present in both hips. CT/CT abdomen pelvis w IV con IMPRESSION: 1. No evidence of a traumatic injury in the chest, abdomen or pelvis. 2. Hepatosplenomegaly. 3. Diane changes in the small bowel mesentery with small prominent lymph nodes in the bao hepatis and gastrohepatic ligament.
--- NOTE | ~2022-10-02 | CT_ITS ---
EXAMINATION: CT HEAD WITHOUT CONTRAST CT CERVICAL SPINE WITHOUT CONTRAST CLINICAL INFORMATION: Trauma, fall. COMPARISON: CT head and cervical spine 07/28/2022. TECHNIQUE: Contiguous axial imaging was performed from the skull base to vertex without intravenous administration of contrast. Contiguous axial imaging was performed from the upper chest through the skull base without intravenous administration of contrast. Coronal and sagittal reformats were obtained at the acquisition workstation. This CT examination was performed using dose optimization techniques as appropriate, variously including the following: *Automated exposure control *Adjustment of mA and/or kV according to patient size (this includes techniques or standardized protocols for targeted exams where dose is matched to indication/reason for exam; i.e. extremities or head) *Use of iterative reconstruction technique DLP: 878 and 656 mGy-cm FINDINGS: Head: Bilateral subdural collections. The left subdural collection is predominantly hypo to isodense measuring up to 1.3 cm in thickness. The right subdural collection demonstrates regions of mixed hyper and hypodensity posteriorly, which is suggestive of acute extravasation of blood, measuring up to 0.7 cm in thickness. No evidence of intraparenchymal hemorrhage or subarachnoid bleeding. No significant mass effect or midline shift. No evidence of acute edematous territorial infarction. A few foci of hypoattenuation in the periventricular and deep white matter are consistent with mild microangiopathy. Parekh-white matter differentiation is preserved. Proportional prominence of the ventricles and sulcal spaces. No evidence for obstructive hydrocephalus. Large occipital scalp hematoma with scattered foci of air and overlying skin lencho. No evidence of displaced calvarial fracture. Small mucous retention cyst in the right maxillary sinus. Trace amount of posterior right mastoid fluid. Cervical Spine: The atlantooccipital and atlantoaxial articulations remain well aligned. No evidence of acute fracture or traumatic subluxation. Cervical spondylosis with variously degrees of neural foraminal encroachment. There is no prevertebral soft tissue swelling. Enlarged multinodular thyroid gland, best visualized on coronal image 53 series 15. The remaining cervical soft tissues are normal in appearance. The lung apices demonstrate no abnormalities. CT/CT cervical spine wo IV con IMPRESSION: Bilateral subdural collections with findings suggestive of acute extravasation of blood on the right occipital aspect of the collection. Collections measure 1.3 cm in thickness on the left side and up to 0.7 cm in thickness on the right side. No midline shift. No evidence of obstructive hydrocephalus. No acute cervical spine fracture or traumatic subluxation. Incidentally noted multinodular thyroid gland. If not already obtained, consider correlation with an elective thyroid ultrasound. This critical result was discussed with Travis Cervantes at 10/02/2022 7:05 PM and it was ascertained that the content and urgency of the report was understood at the time of direct communication.
[2022-10-02 16:57] VITALS: BP 129/69; PULSE 86; RESP 20; TEMP 36.8; O2SAT 98; BMI 35.7
--- NOTE | 2022-10-02 16:59 | ED.GENADULT ---
HPI - General Adult General Chief complaint: Fall Stated complaint: GASH TO HEAD FROM FALL PER EMS Time Seen by Provider: 10/02/22 16:50 Source: EMS Mode of arrival: EMS Limitations: altered mental status and other (Patient intoxicated and with altered mental status) History of Present Illness HPI narrative: This is a 62-year-old male history of ascending aortic aneurysm, anemia, alcoholic [place] hepatitis, chronic ulcer of leg, chronic venous stasis, history of DVT, hypertension, DEBORAH, seborrhei dermatitis presenting to the emergency department via ambulance for altered mental status status post fall patient arrives to the department is only grimacing to pain, he has a hematoma to the back of his head an active bleeding wound, unsure if patient is on blood thinners. Patient not answering questions. According to EMS this is 2nd fall today. The last fall did have loss of consciousness limited history. Patient unable to provide history review of systems. GCS- 8 Related Data Home Medications Medication Instructions Recorded Confirmed cyanocobalamin (vitamin B-12) 1,000 mcg PO DAILY 10/02/22 10/02/22 1,000 mcg tablet (Vitamin B-12) ferrous sulfate 325 mg (65 mg 325 mg PO DAILY 10/02/22 10/02/22 iron) tablet folic acid 1 mg tablet 1 mg PO DAILY 10/02/22 10/02/22 thiamine HCl (vitamin B1) 100 mg 100 mg PO DAILY 10/02/22 10/02/22 tablet (Vitamin B-1) Allergies Allergy/AdvReac Type Severity Reaction Status Date / Time azithromycin [AZITHROMYCIN] Allergy Severe FACIAL Verified 11/30/21 09:19 SWELLING hydrochlorothiazide [HCTZ] Allergy Severe Facial Verified 04/13/22 12:11 Swelling Review of Systems Review of Systems: Yes Unobtainable due to mental status PMFSH Past Medical History Attestation statement: The following information was validated with the patient. Source: old records reviewed and nursing notes reviewed Medical History Alcoholic steatohepatitis Anemia Anemia Ascending aortic aneurysm Chronic ulcer of leg Chronic venous stasis History of DVT of lower extremity History of rhabdomyolysis HTN (hypertension) Hx of lower gastrointestinal bleeding Hx of sepsis Hyperlipidemia DEBORAH (obstructive sleep apnea) Seborrheic dermatitis Surgical History Hx of colonoscopy Family History Family History Mother Dementia Maternal Grandmother Dementia Social History Social History Household Members: Family Housing: Apartment Do you presently have visiting nurse or other home services: No Alcohol intake: current Alcohol intake frequency: 3 or more drinks per day Alcohol type: beer Patient Tobacco Use Status: Never used Tobacco Advance Directives: Yes Advance Directives on File: Yes Advance Directives Date on File: 04/13/22 service: No Current occupational status: disabled Physical Exam ED Vital Signs: Vital Signs - 24 hr 10/02/22 16:57 Temperature 98.2 F Pulse Rate 86 Respiratory Rate 20 Blood Pressure 129/69 Pulse Oximetry 98 Oxygen Delivery Method Room Air BMI result Body Mass Index 35.7 Vital signs stable Appearance: Patient grimaces to pain. Not answering questions or following commands. Head: Normocephalic, atraumatic appearing head with a hematoma to the occipital region an active bleeding abrasions to the occipital aspect of head. Eyes: Pupils equal, round and reactive to light.? Neck: Normal inspection.? Neck supple.? No step-offs or deformities. Patient in cervical collar. CVS: Normal heart rate and rhythm.? Pulses normal.? Respiratory: No respiratory distress.? Breath sounds normal.? Abdomen: Soft and nontender.? Skin: Skin warm and dry.? Normal skin color.? Normal skin turgor.? Extremities: 3+ nonpitting edema from the knee down bilaterally.? No calf ttp. 5/5 strength to bilateral upper and lower extremities Back: No midline tenderness, no C-spine tenderness, full range of motion, no CVA tenderness bilaterally Neuro: Patient grimaces to pain. And opens eyes intermittently. Not following commands. Unable to participate in neurological examination. Course Reevaluation(s) Reevaluation #1: I did get to speak to patient's sister who is in the room she tells me that this is patient's 3rd fall within the past 24 hours. She reports that last night patient fell after drinking, unsure if there is head strike or loss of consciousness. She also tells me that earlier today patient fell, without head strike was unable to get up from the ground, she called 911 and the firefighters helped him get up into a chair. Tells me 2 hours later she heard a boom coming from the kitchen when she went upstairs she noticed that her brother was on the ground, minimally responsive, suspected loss of consciousness. She tells me she thinks he is on Coumadin however it is unclear. She reports that he was recently at [facility] after he had a seizure within intracranial hemorrhage, patient wanted to leave [facility] therefore he left [facility] last week, story is unclear however will obtain records from [facility] to further understand the story. Patient difficult stick. I was unable to obtain labs from his IV I placed. Time: 17:26 Reevaluation #2: Still having a difficult time obtaining labs. I just received a critical call from [facility], patient with bilateral subdural hematomas. Plan is for trauma transfer to [facility]. Reevaluation #3: Patient will be transferred to [facility]'s Emergency Department as a trauma consult Dr. Rock. Time: 19:15 Additional Reevaluation(s): 2016 Patient was a very difficult stick, laboratory studies did not result prior to patient going to [facility]. Therefore phlebotomy had to drop patient's labs in there was a delay in obtaining patient's labs. CBC with slight normocytic anemia. Chemistry pending. Coags within normal limits. Ammonia slightly elevated 59. 2034 Chemistry with no acute findings. Salicylates acetaminophen negative. Marion tried to call [facility] multiple times to speak with them about patient's laboratory studies, and give report to nursing however we were unable to get through after 3 phone calls to [facility]. Medications Administered Discontinued Medications Generic Name Dose Route Start Last Admin Trade Name Ivanq PRN Reason Stop Dose Admin Iohexol 100 ml 10/02/22 17:23 10/02/22 17:23 Iohexol 350 Mg/Ml 100 Ml Infus..Btl IV 10/02/22 17:24 85 ml ONCE ONE Administration Medical Decision Making Medical Decision Making [facility] Narrative: 1700 This is a 62-year-old male who presents with altered mental status status post fall, unclear history however EMS states this is his 2nd fall today. Patient unable to answer questions, not following commands, completely altered. EMS suspect that there is ETOH on board however unclear. Physical examination patient grimacing to pain. Unable to follow commands or answer questions. There is a large occipital hematoma and bleeding abrasions to the posterior head. Pupils equal round and reactive. Lungs clear. Regular rate and rhythm. Abdomen soft nontender nondistended. There is 3+ nonpitting edema to bilateral lower extremities. GCS 8 , unable to assess NIH stroke scale is patient is intermittently following commands Concerns for possible EtOH with polysubstance abuse. There is a large hematoma however will rule out intracranial hemorrhage. Plan at this time is trauma protocol. Patient will have 2 IVs placed and will be sent to CT scan for stat head CT. At this time patient is saturating well on room air will hold on intubation. Differential Diagnosis Differential Diagnoses: The differential diagnosis associated with the presentation includes Concerns for possible EtOH with polysubstance abuse. There is a large hematoma however will rule out intracranial hemorrhage. Admission/Observation Consideration of admission/observation: Escalation of care including admission/observation considered Lab Data MDM Lab Attestation statement: I reviewed the patient's lab results. 10/02/22 19:17 10/02/22 19:17 Labs: Lab Results 10/02/22 10/02/22 10/02/22 Range/Units 19:17 19:17 19:17 WBC 10.4 (4.8-10.8) X10*3/uL RBC 3.31 L (4.60-5.80) X10*6/uL Hgb 9.0 L (14.0-18.0) g/dl Hct 28.5 L (42.0-52.0) % MCV 86.1 (80.0-98.0) fL MCH 27.2 (27.0-33.0) pg MCHC 31.6 (31.0-36.0) g/dl RDW 18.6 H (11.0-16.0) % Plt Count 333 D (160-400) X10*3/uL MPV 8.3 L (9.4-12.4) fL Immature Gran % (Auto) 0.5 H (0.0-0.4) % Neut % (Auto) 66.5 (45-73) % Lymph % (Auto) 24.4 (20-40) % [place] % (Auto) 5.5 (2-11) % Eos % (Auto) 1.8 (0-4) % Baso % (Auto) 1.3 (0-2) % Lymph # (Auto) 2.5 (1.2-4.9) X10*3/uL [place] # (Auto) 0.6 (0.1-1.2) X10*3/uL Eos # (Auto) 0.2 (0.0-0.4) X10*3/uL Baso # (Auto) 0.1 (0.0-0.2) X10*3/uL Abs Immat Gran (auto) 0.05 H (0.00-0.03) X10*3/uL Absolute Neuts (auto) 6.9 (2.0-8.3) x10*3/uL Absolute Nucleated RBC 0.000 (0.0-0.012) X10*3/uL Nucleated RBC % (auto) 0.0 (0.0-0.2) /100WBC PT (10.0-13.1) SEC INR (0.9-1.1) Sodium (135-145) mmol/L Potassium (3.3-5.1) mmol/L Chloride (96-108) mmol/L Carbon Dioxide (22-29) mmol/L Anion Gap (12-20) BUN (9-16) mg/dL Creatinine (0.5-1.4) mg/dL Estim Creat Clear Calc Estimated GFR Random Glucose (60-115) mg/dL Calcium (8.4-10.2) mg/dL Magnesium (1.6-2.6) mg/dL Total Bilirubin (0.0-1.0) mg/dL AST (5-37) U/L ALT (0-40) U/L Alkaline Phosphatase (39-117) U/L Ammonia 59 H (13-55) umol/L Total Protein (6.5-8.0) g/dL Albumin (3.5-5.0) g/dL Salicylates (15-30) mg/dL Acetaminophen (<30) mcg/mL COVID-19 (TORSTEN) Negative (Negative) COVID-19 Clin Com See Note 10/02/22 10/02/22 Range/Units 19:46 19:46 WBC (4.8-10.8) X10*3/uL RBC (4.60-5.80) X10*6/uL Hgb (14.0-18.0) g/dl Hct (42.0-52.0) % MCV (80.0-98.0) fL MCH (27.0-33.0) pg MCHC (31.0-36.0) g/dl RDW (11.0-16.0) % Plt Count (160-400) X10*3/uL MPV (9.4-12.4) fL Immature Gran % (Auto) (0.0-0.4) % Neut % (Auto) (45-73) % Lymph % (Auto) (20-40) % [place] % (Auto) (2-11) % Eos % (Auto) (0-4) % Baso % (Auto) (0-2) % Lymph # (Auto) (1.2-4.9) X10*3/uL [place] # (Auto) (0.1-1.2) X10*3/uL Eos # (Auto) (0.0-0.4) X10*3/uL Baso # (Auto) (0.0-0.2) X10*3/uL Abs Immat Gran (auto) (0.00-0.03) X10*3/uL Absolute Neuts (auto) (2.0-8.3) x10*3/uL Absolute Nucleated RBC (0.0-0.012) X10*3/uL Nucleated RBC % (auto) (0.0-0.2) /100WBC PT 12.4 (10.0-13.1) SEC INR 1.1 (0.9-1.1) Sodium 140 (135-145) mmol/L Potassium 4.6 (3.3-5.1) mmol/L Chloride 107 (96-108) mmol/L Carbon Dioxide 21 L (22-29) mmol/L Anion Gap 17 (12-20) BUN 13 (9-16) mg/dL Creatinine 1.16 (0.5-1.4) mg/dL Estim Creat Clear Calc 84.1 Estimated GFR > 60 Random Glucose 97 (60-115) mg/dL Calcium 8.4 (8.4-10.2) mg/dL Magnesium 1.9 (1.6-2.6) mg/dL Total Bilirubin 0.5 (0.0-1.0) mg/dL AST 34 (5-37) U/L ALT 24 (0-40) U/L Alkaline Phosphatase 133 H (39-117) U/L Ammonia (13-55) umol/L Total Protein 6.2 L (6.5-8.0) g/dL Albumin 3.6 (3.5-5.0) g/dL Salicylates < 5.0 L (15-30) mg/dL Acetaminophen < 17 (<30) mcg/mL COVID-19 (TORSTEN) (Negative) COVID-19 Clin Com Radiology Impression Discussion of test interpretation with radiology: I have reviewed the radiologist's reading. Core Measures AMI core measures followed: Yes Measure exclusions: not indicated Critical Care Time Critical Care Time Critical Care Time: Yes Total Critical Care Time: 35 Attestation: I attest to this time spent taking care of the patient, obtaining history, physical, reviewing labs, imaging, speaking to my attending, speaking to specialist. Discharge Plan Discharge Clinical Impression: Subdural hematoma Patient Disposition: er [facility] Hospital Transfer Details: ALS Prescriptions: No Action cyanocobalamin (vitamin B-12) [Vitamin B-12] 1,000 mcg Tablet 1,000 mcg PO DAILY thiamine HCl (vitamin B1) [Vitamin B-1] 100 mg Tablet 100 mg PO DAILY folic acid 1 mg tablet 1 mg PO DAILY ferrous sulfate 325 mg (65 mg iron) tablet 325 mg PO DAILY Interventions: Acute Care Transfer Worksheet (ED) Last Done: 10/02/22 20:04 Discharge Date/Time: 10/02/22 20:06
--- NOTE | 2022-10-02 17:04 | ECG_ITS ---
Test Reason : FALL Blood Pressure : / mmHG Vent. Rate : 087 BPM Atrial Rate : 087 BPM P-R Int : 236 ms QRS Dur : 116 ms QT Int : 410 ms P-R-T Axes : 043 -48 062 degrees QTc Int : 493 ms Sinus rhythm with 1st degree A-V block Left anterior fascicular block Cannot rule out Anterior infarct , age undetermined Abnormal ECG When compared with ECG of 22-JAN-2022 09:35, Nonspecific T wave abnormality now evident in Anterolateral leads Referred By: Travis Cervantes Electronically Signed By:Mike Nguyen
--- NOTE | 2022-10-02 17:20 | PHA.MEDREC ---
Pharmacy Consult ? Medication Reconciliation Pharmacy has completed the medication reconciliation. Med list obtained from pt's pharmacy
[2022-10-02] MEDS: iohexoL 350 MG/ML 100 ML INFUS..BTL IV (17:23)
--- NOTE | 2022-10-02 17:37 | PC.NURSE ---
20g r hand placed by pa. 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 ct completed. family at bedside aware of plan of care.
--- OUTSIDE RECORDS SUMMARY | 2022-10-02 17:53 | XMS_ITS | Continuity of Care Document ---
:1960 Author Organization [facility] Address [address] [place] [address]- Care Team Providers Name Role Phone Not on Staff, PCP Primary Care Physician Unavailable [place] [facility] [place] 09/27/[address] [id number] Encounter Diagnosis Scalp wound (Final) - 09/21/22 Discharge Disposition: A-D/C Home Attending Physician: Jorge Garcia MD, Víctor He Admitting Physician: Wayne Raya MD Referring Physician: Not on Staff, Referring MD Allergies, Adverse Reactions, Alerts Substance Reaction Severity Status hydroCHLOROthiazide Active Immunizations Given and Recorded Vaccine Date Status Refusal Reason SARS-CoV-2 mRNA ([id number]) vax 02/09/22 Recorde d SARS-CoV-2 (COVID-19) mRNA-1273 vaccine 07/19/21 Recorded SARS-CoV-2 (COVID-19) mRNA-1273 vaccine 12/19/20 Recorded SARS-CoV-2 (COVID-19) mRNA-1273 vaccine 11/21/20 Recorded pneumococcal 23-valent vaccine 07/25/18 Given Medications allopurinol 300 mg oral tablet 300 mg, 1, tablet, By Mouth, Daily, # 30 tablet, Refills 0, Maintenance, 07/27/18 14:11:13 EST Start Date: 07/27/18 Status: Orderedcyanocobalamin 1000 mcg oral tablet 1,000 mcg, 1, tablet, By Mouth, Daily, # 30 tablet, Refills 0, Tot. Refills 0, Maintenance, 09/27/2313:41:00 EST, Route to Pharmacy Electronically, [facility], Partial fill upon patient request if the prescription is for a schedule II o... Start Date: 09/27/22 Status: Orderedferrous sulfate 325 mg oral enteric coated tablet 325 mg, By Mouth, Daily, # 30 tablet, Refills 0, Tot. Refills 0, Maintenance, 09/27/22 14:56:00 EST,Route to Pharmacy Electronically, [facility], Partial fill upon patient request if theprescription is for a schedule II opioid drug., 1... Start Date: 09/27/22 Stop Date: 10/27/22 Status: Orderedfolic acid 1 mg oral tablet 1 mg, 1, tablet, By Mouth, Daily, # 30 tablet, Refills 0, Tot. Refills 0, Maintenance, 09/27/22 14:42:00 EST, Route to Pharmacy Electronically, [facility], Partial fill upon patient request if the prescription is for a schedule II opioid... Start Date: 09/27/22 Status: Orderedlisinopril 5 mg oral tablet TAKE 1 TABLET BY MOUTH EVERY DAY Start Date: 09/21/22 Status: Orderedmagnesium oxide 400 mg oral tablet TAKE 1 TABLET BY MOUTH THREE TIMES DAILY FOR 5 DAYS THEN TAKE 1 TABLET BY MOUTH TWICE DAILY Start Date: 09/21/22 Status: OrderedMetoprolol Succinate ER 50 mg oral tablet, extended release TAKE 1 AND 1/2 TABLETS BY MOUTH EVERY DAY Start Date: 09/21/22 Status: Orderedrosuvastatin 5 mg oral tablet TAKE 1 TABLET BY MOUTH AT BEDTIME Start Date: 09/21/22 Status: Orderedspironolactone 25 mg oral tablet 25 mg, By Mouth, Daily, # 30 tablet, Refills 0, Tot. Refills 0, Maintenance, 07/27/18 15:19:18 EST, Route to Pharmacy Electronically, [id number], [facility] Start Date: 07/27/18 Stop Date: 08/26/18 Status: Orderedthiamine 100 mg oral tablet 100 mg, 1, tablet, By Mouth, Daily, for 30 days, # 30 tablet, Refills 0, Tot. Refills 0, Acute 10/27/22 14:42:00 EST, 09/27/22 14:42:00 EST, Route to Pharmacy Electronically, [facility], Partial fill upon patient request if the prescript... Start Date: 09/27/22 Stop Date: 10/27/22 Status: Orderedtorsemide 20 mg oral tablet TAKE 2 TABLETS BY MOUTH ONCE DAILY Start Date: 09/21/22 Status: Ordered Problem List Condition Confirmation Course Effective Dates Status Health Stat us Informant Fall Confirmed Active Obese class II Confirmed Active Results Radiology Reports Exam Date Time Procedure Performing Provider Status 09/23/22 9:[address] Cervical Spine W/O Contrast Janna Monte; Auth (Verified) Notes:(CT Cervical Spine W/O Contrast) Reason For Exam: unwitnessed fall to evaluate for any C spine injury.;Other:RESULT: CT Cervical Spine W/O Contrast CT Head/Brain W/O Contrast, CT Cervical Spine W/O Contrast INDICATION: Reason: Trauma; unwitnessed fall with head strike, to evaluate for any intracranial bleeding.; Clinical Question(s): Hematoma; Order Comment: TECHNIQUE: Noncontrast head CT using axial technique was reconstructed in axial and coronal planes. Noncontrast spiral CT through the cervical spine was formatted in 3 planes. Automatic tube modulationwas used for the cervical spine and iterative dose reconstruction was used for both the head and cervical spine to optimize scan parameters and image quality. CTDIvol Body: 19.10 mGy, DLP Body: 456 mGy*cm. CTDIvol Head: 45.50 mGy, DLP Head: 772 mGy*cm. COMPARISON: Prior CT of the head and cervical spine dated September 21, 2022. FINDINGS: News Reporter View Findings, Lines and Tubes: None. BRAIN AND EXTRA-AXIAL SPACES: No parenchymal hemorrhage, midline shift, or mass effect. Parekh-white matter differentiation is well preserved. No acute infarct. Negative insular ribbon sign. Atherosclerotic vascular calcification of the carotid arteries but negative hyperdense vessel sign. Mild prominence of the ventricles and sulci consistent with parenchymal volume loss. Mild low-density white matter changes. No subarachnoid hemorrhage. There is a new hyperdense extra-axial hematoma in the right posterior parietal region underlying the soft tissue contusion, measuring up to 8 mm in greatest thickness (series 2 image image 87, series 204 image 43). Mildly prominent left extra-axial spaces, more likely involutional changes than chronic hygroma. CALVARIUM, SKULL BASE, AND SOFT TISSUES: No fractures or suspicious bony lesions. The paranasal sinuses and mastoid air cells are clear. Visualized orbits and globes are intact. Similar soft tissue contusion in the right parietal region and diffuse posterior scalp edema. CERVICAL SPINE: No fracture. No acute osseous abnormalities. Normal alignment. No locked or perched facet. Mild multilevel degenerative disc space narrowing and end plate irregularity. OTHER BONES: No acute abnormality. CERVICAL SOFT TISSUES AND LUNG APICES: Heterogeneous enlargement of the right thyroid nodule measuring up to 3.5 cm. Visualized lung apicesare clear. IMPRESSION: 1. New 8 mm hyperdense extra-axial hematoma overlying the right parietal lobe, likely a small subdural hematoma. 2. No acute cervical spinal abnormality. 3. 3.5 cm right-sided thyroid nodule for which dedicated ultrasound is recommended on a nonemergent basis according to current national guidelines. The impression above was relayed to Krish Aguilar by Dr. Eduin Cobian over the phone on 09/23/2022 at 10:55 AM. WSN: [id number] Ordering Physician: Krish Aguilar Dictated By: Eduin Cobian MD Dictated Date/Time: 09/23/22 10:57 a Reviewed By: Eduin Cobian MD Signed By: Eduin Cobian MD Signed Date/Time: 09/23/22 10:57 am Transcribed By: IDALIA Transcribed Date/Time: 09/23/22 10:49 am Exam Date Time Procedure Performing Provider Status 09/23/22 9:[address] Head/Brain W/O Contrast Janna Monte; Olga (Verified) Notes:(CT Head/Brain W/O Contrast) Reason For Exam: unwitnessed fall with head strike, to evaluate for anyintracranial bleeding.;TraumaRESULT: CT Head/Brain W/O Contrast CT Head/Brain W/O Contrast, CT Cervical Spine W/O Contrast INDICATION: Reason: Trauma; unwitnessed fall with head strike, to evaluate for any intracranial bleeding.; Clinical Question(s): Hematoma; Order Comment: TECHNIQUE: Noncontrast head CT using axial technique was reconstructed in axial and coronal planes. Noncontrast spiral CT through the cervical spine was formatted in 3 planes. Automatic tube modulationwas used for the cervical spine and iterative dose reconstruction was used for both the head and cervical spine to optimize scan parameters and image quality. CTDIvol Body: 19.10 mGy, DLP Body: 456 mGy*cm. CTDIvol Head: 45.50 mGy, DLP Head: 772 mGy*cm. COMPARISON: Prior CT of the head and cervical spine dated September 21, 2022. FINDINGS: News Reporter View Findings, Lines and Tubes: None. BRAIN AND EXTRA-AXIAL SPACES: No parenchymal hemorrhage, midline shift, or mass effect. Parekh-white matter differentiation is well preserved. No acute infarct. Negative insular ribbon sign. Atherosclerotic vascular calcification of the carotid arteries but negative hyperdense vessel sign. Mild prominence of the ventricles and sulci consistent with parenchymal volume loss. Mild low-density white matter changes. No subarachnoid hemorrhage. There is a new hyperdense extra-axial hematoma in the right posterior parietal region underlying the soft tissue contusion, measuring up to 8 mm in greatest thickness (series 2 image image 87, series 204 image 43). Mildly prominent left extra-axial spaces, more likely involutional changes than chronic hygroma. CALVARIUM, SKULL BASE, AND SOFT TISSUES: No fractures or suspicious bony lesions. The paranasal sinuses and mastoid air cells are clear. Visualized orbits and globes are intact. Similar soft tissue contusion in the right parietal region and diffuse posterior scalp edema. CERVICAL SPINE: No fracture. No acute osseous abnormalities. Normal alignment. No locked or perched facet. Mild multilevel degenerative disc space narrowing and end plate irregularity. OTHER BONES: No acute abnormality. CERVICAL SOFT TISSUES AND LUNG APICES: Heterogeneous enlargement of the right thyroid nodule measuring up to 3.5 cm. Visualized lung apicesare clear. IMPRESSION: 1. New 8 mm hyperdense extra-axial hematoma overlying the right parietal lobe, likely a small subdural hematoma. 2. No acute cervical spinal abnormality. 3. 3.5 cm right-sided thyroid nodule for which dedicated ultrasound is recommended on a nonemergent basis according to current national guidelines. The impression above was relayed to Krish Aguilar by Dr. Eduin Cobian over the phone on 09/23/2022 at 10:55 AM. WSN: [id number] Ordering Physician: Krish Aguilar Dictated By: Eduin Cobian MD Dictated Date/Time: 09/23/22 10:57 a Reviewed By: Eduin Cobian MD Signed By: Eduin Cobian MD Signed Date/Time: 09/23/22 10:57 am Transcribed By: CSB Transcribed Date/Time: 09/23/22 10:49 am Exam Date Time Procedure Performing Provider Status 09/21/22 1:[address] Abd/Pelvis W/ IV Contrast Only Rachel Davis (Verified) Notes:(CT Abd/Pelvis W/ IV Contrast Only) Reason For Exam: Abd trauma, blunt;Other:RESULT: CT Abd/Pelvis W/ IV Contrast Only CT Chest W/ Contrast, CT Abd/Pelvis W/ IV Contrast Only INDICATION: Reason: Other:; Chest trauma, blunt; Clinical Question(s): Other:; Aortic hilar injury TECHNIQUE: Helical CT scan of the chest, abdomen, and pelvis with IV contrast, formatted in 3 planes. 100 cc of Omnipaque 300 was administered intravenously. This study was performed without oral contrast. Weight-based protocol was performed using automatic exposure control. CTDIvol Body: 19.20 mGy, DLP Body: 1333 mGy*cm. COMPARISON: None. FINDINGS: News Reporter view findings, lines and tubes: None. Trachea and airways: Patent without evidence of tracheal or endobronchial lesion. Lungs and pleura: Limited evaluation for small pulmonary nodules due to respiratory motion artifact.No effusion or pneumothorax. Mediastinum and bismark: No mass or hematoma. No mediastinal or hilar lymphadenopathy. No esophageal abnormality. 3.7 cm heterogeneous right thyroid nodule. Heart: Mild cardiomegaly. No pericardial effusion. Moderate coronary artery calcification. Aorta: No aortic aneurysm. Pulmonary arteries: Normal caliber. No evidence of pulmonary embolism on this study performed without angiographic technique. Chest wall soft tissues: Gynecomastia. No hematoma. Diaphragm: Intact. Liver: Fatty liver. No laceration. Gallbladder: No CT evidence of gallbladder pathology. Bile ducts: No biliary ductal dilation. Spleen: Splenomegaly measuring up to 15 cm in AP dimension. No laceration. Pancreas: No suspicious lesion or ductal dilatation. Adrenal glands: No nodule. Kidneys and ureters: Right kidney is unremarkable. 2.3 cm left upper pole lesion, indeterminate by Hounsfield units, likely proteinaceous or hemorrhagic cyst. Indeterminate mass arising from the lower pole the left kidney measuring up to 2.8 cm. Bladder: Thick walled but underdistended. Reproductive organs: Unremarkable. Stomach, small bowel, and large bowel: Scattered colonic diverticula without diverticulitis. The colon is decompressed. No small bowel obstruction. Appendix: Not seen, but no evidence of acute appendicitis. Peritoneum and retroperitoneum: No ascites or pneumoperitoneum. No omental or mesenteric lesions. Lymph nodes: Multiple shotty retroperitoneal lymph nodes. Multiple tiny mesenteric lymph nodes with mild stranding of the central mesentery. Aortocaval lymph node measuring up to 1.6 cm in short axis, series 201 image 91. Multiple small inguinal lymph nodes not enlarged by size criteria. Additional upper abdominal lymph nodes for example along the celiac access measuring up to 12 mm in short axis on series 2 on image 74. Blood vessels: Mild vascular calcifications but no aneurysm. No evidence of venous thrombosis. Abdominal and pelvic wall soft tissues: No acute abnormality. Soft tissue prominence in the left perineum as seen on series 201 image 207. Bones: Multiple tiny bone islands noted in the femoral heads bilaterally. No pelvic fracture. Vertebral body heights are maintained. IMPRESSION: 1. No acute abnormality. 2. 2.8 cm indeterminate left lower pole renal lesion concerning for malignancy. Indeterminate left upper pole renal lesion likely hemorrhagic or proteinaceous cyst. Renal mass protocol MRI is recommended if not ordered and performed elsewhere for further evaluation. Ultimately histopathologic correlation of the left lower pole lesion may be necessary. 3. Fatty liver and mild splenomegaly. This likely reflects chronic hepatocellular disease. Mildly prominent bao hepatis lymph nodes, likely reactive. 4. Heterogeneous 3.7 cm right thyroid nodule. Follow-up thyroid ultrasound is recommended if not performed elsewhere. 5. Soft tissue prominence along the left perineum at the anal verge, indeterminate. This could reflect external hemorrhoids or soft tissue mass. Clinical correlation is recommended A critical result message (Mclean) has been communicated via the [employer] system on 09/21/2022 1:25 PM, Message ID [id number]. WSN: [id number] Ordering Physician: Nayely Brewer Dictated By: Stan Lomas MD Dictated Date/Time: 09/21/22 1:30 pm Reviewed By: Stan Lomas MD Signed By: Stan Lomas MD Signed Date/Time: 09/21/22 1:30 pm Transcribed By: IDALIA Transcribed Date/Time: 09/21/22 1:15 pm Exam Date Time Procedure Performing Provider Status 09/21/22 1:[address] Chest W/ Contrast Teresa Davis; Olga (Veri fied) Notes:(CT Chest W/ Contrast) Reason For Exam: Chest trauma, blunt;Other:RESULT: CT Chest W/ Contrast CT Chest W/ Contrast, CT Abd/Pelvis W/ IV Contrast Only INDICATION: Reason: Other:; Chest trauma, blunt; Clinical Question(s): Other:; Aortic hilar injury TECHNIQUE: Helical CT scan of the chest, abdomen, and pelvis with IV contrast, formatted in 3 planes. 100 cc of Omnipaque 300 was administered intravenously. This study was performed without oral contrast. Weight-based protocol was performed using automatic exposure control. CTDIvol Body: 19.20 mGy, DLP Body: 1333 mGy*cm. COMPARISON: None. FINDINGS: News Reporter view findings, lines and tubes: None. Trachea and airways: Patent without evidence of tracheal or endobronchial lesion. Lungs and pleura: Limited evaluation for small pulmonary nodules due to respiratory motion artifact.No effusion or pneumothorax. Mediastinum and bismark: No mass or hematoma. No mediastinal or hilar lymphadenopathy. No esophageal abnormality. 3.7 cm heterogeneous right thyroid nodule. Heart: Mild cardiomegaly. No pericardial effusion. Moderate coronary artery calcification. Aorta: No aortic aneurysm. Pulmonary arteries: Normal caliber. No evidence of pulmonary embolism on this study performed without angiographic technique. Chest wall soft tissues: Gynecomastia. No hematoma. Diaphragm: Intact. Liver: Fatty liver. No laceration. Gallbladder: No CT evidence of gallbladder pathology. Bile ducts: No biliary ductal dilation. Spleen: Splenomegaly measuring up to 15 cm in AP dimension. No laceration. Pancreas: No suspicious lesion or ductal dilatation. Adrenal glands: No nodule. Kidneys and ureters: Right kidney is unremarkable. 2.3 cm left upper pole lesion, indeterminate by Hounsfield units, likely proteinaceous or hemorrhagic cyst. Indeterminate mass arising from the lower pole the left kidney measuring up to 2.8 cm. Bladder: Thick walled but underdistended. Reproductive organs: Unremarkable. Stomach, small bowel, and large bowel: Scattered colonic diverticula without diverticulitis. The colon is decompressed. No small bowel obstruction. Appendix: Not seen, but no evidence of acute appendicitis. Peritoneum and retroperitoneum: No ascites or pneumoperitoneum. No omental or mesenteric lesions. Lymph nodes: Multiple shotty retroperitoneal lymph nodes. Multiple tiny mesenteric lymph nodes with mild stranding of the central mesentery. Aortocaval lymph node measuring up to 1.6 cm in short axis, series 201 image 91. Multiple small inguinal lymph nodes not enlarged by size criteria. Additional upper abdominal lymph nodes for example along the celiac access measuring up to 12 mm in short axis on series 2 on image 74. Blood vessels: Mild vascular calcifications but no aneurysm. No evidence of venous thrombosis. Abdominal and pelvic wall soft tissues: No acute abnormality. Soft tissue prominence in the left perineum as seen on series 201 image 207. Bones: Multiple tiny bone islands noted in the femoral heads bilaterally. No pelvic fracture. Vertebral body heights are maintained. IMPRESSION: 1. No acute abnormality. 2. 2.8 cm indeterminate left lower pole renal lesion concerning for malignancy. Indeterminate left upper pole renal lesion likely hemorrhagic or proteinaceous cyst. Renal mass protocol MRI is recommended if not ordered and performed elsewhere for further evaluation. Ultimately histopathologic correlation of the left lower pole lesion may be necessary. 3. Fatty liver and mild splenomegaly. This likely reflects chronic hepatocellular disease. Mildly prominent bao hepatis lymph nodes, likely reactive. 4. Heterogeneous 3.7 cm right thyroid nodule. Follow-up thyroid ultrasound is recommended if not performed elsewhere. 5. Soft tissue prominence along the left perineum at the anal verge, indeterminate. This could reflect external hemorrhoids or soft tissue mass. Clinical correlation is recommended A critical result message (Mclean) has been communicated via the [employer] system on 09/21/2022 1:25 PM, Message ID [id number]. WSN: [id number] Ordering Physician: Nayely Brewer Dictated By: Stan Lomas MD Dictated Date/Time: 09/21/22 1:30 pm Reviewed By: Stan Lomas MD Signed By: Stan Lomas MD Signed Date/Time: 09/21/22 1:30 pm Transcribed By: IDALIA Transcribed Date/Time: 09/21/22 1:15 pm Exam Date Time Procedure Performing Provider Status 09/21/22 1:11 PM Chest Portable Garrison Fisher; Olga (Verified) Notes:(Chest Portable) Reason For Exam: Pain;Other:RESULT: Chest Portable Chest Portable performed supine at 12:50 PM Reason: Other:; Pain; Clinical Question(s): Other:; Fracture, pneumothorax, pulmonary contusion COMPARISON: None. FINDINGS: LINES AND TUBES: None. LUNGS AND PLEURA: There are low lung volumes with patchy bibasilar densities, which may reflect atelectasis or contusion. No pleural effusion. No pneumothorax. HEART, MEDIASTINUM AND BISMARK: Heart is normal in size. Normal mediastinal and hilar contour. BONES AND SOFT TISSUES: No acute abnormality. IMPRESSION: Low lung volumes with patchy bibasilar densities, which may reflect atelectasis or contusion. WSN: [id number] Ordering Physician: Nayely Brewer Dictated By: Kate Black MD Dictated Date/Time: 09/21/22 1:13 pm Reviewed By: Kate Black MD Signed By: Kate Black MD Signed Date/Time: 09/21/22 1:13 pm Transcribed By: IDALIA Transcribed Date/Time: 09/21/22 1:12 pm Exam Date Time Procedure Performing Provider Status 09/21/22 1:[address] Cervical Spine W/O Contrast Teresa Davis; Olga (Verified) Notes:(CT Cervical Spine W/O Contrast) Reason For Exam: Neck trauma, dangerous injury mechanism;Other:RESULT: CT Cervical Spine W/O Contrast CT Head/Brain W/O Contrast, CT Cervical Spine W/O Contrast INDICATION: Head trauma, mod-severe; Clinical Question(s): Hematoma TECHNIQUE: Noncontrast head CT using axial technique was reconstructed in axial and coronal planes. Noncontrast spiral CT through the cervical spine was formatted in 3 planes. Automatic tube modulationwas used for the cervical spine and iterative dose reconstruction was used for both the head and cervical spine to optimize scan parameters and image quality. CTDIvol Body: 17.80 mGy, DLP Body: 412 mGy*cm. CTDIvol Head: 39.90 mGy, DLP Head: 671 mGy*cm. COMPARISON: None. FINDINGS: News Reporter View Findings, Lines and Tubes: None. BRAIN AND EXTRA-AXIAL SPACES: There is a moderate subgaleal hematoma extending from the right posterior occipital lobe partially to the left, measuring 6.0 x 1.0 cm. No parenchymal hemorrhage, midline shift, or mass effect. Parekh-white matter differentiation is well preserved. No acute infarct. Negative insular ribbon sign. Atherosclerotic vascular calcification of the carotid arteries but negative hyperdense vessel sign. Mild prominence of the ventricles and sulci consistent with parenchymal volume loss. Mild low-density white matter changes. No subarachnoid hemorrhage. No subdural or epidural collection. CALVARIUM, SKULL BASE, AND SOFT TISSUES: No fractures or suspicious bony lesions. Mild mucosal thickening in the right maxillary sinus. Other visualized paranasal sinuses and mastoidair cells are clear. Visualized orbits and globes are intact. The extracranial soft tissues are unremarkable. CERVICAL SPINE: No fracture. No acute osseous abnormalities. Normal alignment. No locked or perched facet. Moderate multilevel degenerative disc space narrowing and end plate irregularity. OTHER BONES: No acute abnormality. CERVICAL SOFT TISSUES AND LUNG APICES: Visualized lung apices are clear. Right thyroid gland nodule measuring 3.6 cm. IMPRESSION: 1. Moderate subgaleal hematoma in the occipital region. 2. No acute intracranial abnormality. No acute cervical spine abnormality. I have personally reviewed the images and I agree with this report. WSN: [id number] Ordering Physician: Nayely Brewer Dictated By: Lyubov Sanderson DO Dictated Date/Time: 09/21/22 1:45 pm Reviewed By: Stan Lomas MD Signed By: Stan Lomas MD Signed Date/Time: 09/21/22 1:50 pm Transcribed By: IDALIA Transcribed Date/Time: 09/21/22 1:31 pm Exam Date Time Procedure Performing Provider Status 09/21/22 1:[address] Head/Brain W/O Contrast Adam Davis (Verified) Notes:(CT Head/Brain W/O Contrast) Reason For Exam: Head trauma, mod-severe;Other:RESULT: CT Head/Brain W/O Contrast CT Head/Brain W/O Contrast, CT Cervical Spine W/O Contrast INDICATION: Head trauma, mod-severe; Clinical Question(s): Hematoma TECHNIQUE: Noncontrast head CT using axial technique was reconstructed in axial and coronal planes. Noncontrast spiral CT through the cervical spine was formatted in 3 planes. Automatic tube modulationwas used for the cervical spine and iterative dose reconstruction was used for both the head and cervical spine to optimize scan parameters and image quality. CTDIvol Body: 17.80 mGy, DLP Body: 412 mGy*cm. CTDIvol Head: 39.90 mGy, DLP Head: 671 mGy*cm. COMPARISON: None. FINDINGS: News Reporter View Findings, Lines and Tubes: None. BRAIN AND EXTRA-AXIAL SPACES: There is a moderate subgaleal hematoma extending from the right posterior occipital lobe partially to the left, measuring 6.0 x 1.0 cm. No parenchymal hemorrhage, midline shift, or mass effect. Parekh-white matter differentiation is well preserved. No acute infarct. Negative insular ribbon sign. Atherosclerotic vascular calcification of the carotid arteries but negative hyperdense vessel sign. Mild prominence of the ventricles and sulci consistent with parenchymal volume loss. Mild low-density white matter changes. No subarachnoid hemorrhage. No subdural or epidural collection. CALVARIUM, SKULL BASE, AND SOFT TISSUES: No fractures or suspicious bony lesions. Mild mucosal thickening in the right maxillary sinus. Other visualized paranasal sinuses and mastoidair cells are clear. Visualized orbits and globes are intact. The extracranial soft tissues are unremarkable. CERVICAL SPINE: No fracture. No acute osseous abnormalities. Normal alignment. No locked or perched facet. Moderate multilevel degenerative disc space narrowing and end plate irregularity. OTHER BONES: No acute abnormality. CERVICAL SOFT TISSUES AND LUNG APICES: Visualized lung apices are clear. Right thyroid gland nodule measuring 3.6 cm. IMPRESSION: 1. Moderate subgaleal hematoma in the occipital region. 2. No acute intracranial abnormality. No acute cervical spine abnormality. I have personally reviewed the images and I agree with this report. WSN: [id number] Ordering Physician: Nayely Brewer Dictated By: Lyubov Sanderson DO Dictated Date/Time: 09/21/22 1:45 pm Reviewed By: Stan Lomas MD Signed By: Stan Lomas MD Signed Date/Time: 09/21/22 1:50 pm Transcribed By: IDALIA Transcribed Date/Time: 09/21/22 1:31 pm Vital Signs Most recent to oldest 1 2 3 [Reference Range]: Height 167 cm 167 cm (09/26/22 1:20 PM) (09/22/22 11:57 PM) Weight 110.3 kg 110.9 kg 100.8 kg (09/24/22 6:00 AM) (09/23/22 6:00 AM) (09/22/22 11:57 PM) Oxygen Saturation [94-100 %] 98 % 96 % 99 % (09/27/22 2:00 PM) (09/27/22 7:00 AM) (09/27/22 4:00 A M) Pulse Rate [55-90 bpm] 63 bpm 59 bpm 59 bpm (09/27/22 2:00 PM) (09/27/22 7:00 AM) (09/27/22 4:00 A M) Body Mass Index [18.5-24.99 36.14 kg/m2 kg/m2] *>HHI* (09/22/22 11:57 PM) Blood Pressure [90-138/55-84 mm 127/73 mm Hg 128/81 mm Hg 131/75 mm Hg Hg] (09/27/22 2:00 PM) (09/27/22 7:00 AM) (09/27/22 4:00 A M) Respiratory Rate [16-30 br/min] 18 br/min 18 br/min 18 br/min (09/27/22 2:00 PM) (09/27/22 7:00 AM) (09/27/22 4:00 A M) Temperature [96.8-100.4 DegF] 99.0 DegF 97.8 DegF 98 .0 DegF (09/27/22 2:00 PM) (09/27/22 7:00 AM) (09/27/22 4:00 A M) Liters per Minute 1 L/min 1 L/min 1 L/min (09/26/22 4:00 AM) (09/26/22 12:00 AM) (09/25/22 8:00 PM) Mode of Delivery (Oxygen) Room air Room air Room a ir (09/27/22 2:00 PM) (09/27/22 7:00 AM) (09/27/22 4:00 A M) Blood pressure sites Arm, left Arm, left Arm, left (09/27/22 2:00 PM) (09/27/22 7:00 AM) (09/27/22 4:00 A M) Temperature Route Oral Oral Oral (09/27/22 2:00 PM) (09/27/22 7:00 AM) (09/27/22 4:00 A M) Dry Weight 100.8 kg (09/22/22 11:57 PM) Weight Obtained Via Bed scale Bed scale (09/24/22 6:00 AM) (09/23/22 6:00 AM) History and physical note Daniella SYLVESTER, Nayely C: PERFORM Nayely Brewer MD: PERFORM, MODIFY Nayely Brewer MD C: MODIFY, MODIFY Nayely Brewer MD: MODIFY, MODIFY Nayely Brewer MD: MODIFY, SIGN Daniella SYLVESTER, Nayely Laguna: SIGN, VERIFY Nayely Brewer MD: VERIFY, MODIFY Event Display: History and Physical Hospital Authored Date: Patient: TRAUMA, [id number] Age: 89 years Sex: Male : Associated Diagnoses: None Author: Nayely Brewer MD Trauma Activation Category: Category 2. Trauma History 62yo M cat2 trauma s/p fall. +LOC, -EtOH, GCS 14. Per EMS, pt had a witnessed fell at [employer] with head strike, followed by brief episode of tonic clonic seizure. Upon EMS arrival, he was nonverbal, but appeared confused. Otherwise hemodynamically stable. Upon arrival, primary survey was completed and is as follows: airway patent, breath sounds present equal bilaterally, BP 180/80, pupils 3mm and reactive, GCS 14. Secondary survey was completed and is documented below. C-collar was replaced with [place] collar, for c-spine precaution. IV fluids were administered. Following CXR, the patient was taken to CT for further workup. Past Medical History HTN HLD Prior DVT Gout Past Surgical History Exploratory Laparotomy Medications Unknown Allergies Unknown Family History Unknown Social History Unknown Review of Systems A 14-point review of systems was negative except as documented above Physical Examination Vital Signs: T _, BP 180/80, HR 112, RR _, SpO2 94% on 2L General: Lethargic, confused, awake Head: Laceration with hematoma in the posterior midline of head Face: Evidence of dry blood in the corners of the eye, no laceration, hematoma, or surrounding erythema Eyes: pupils are 3mm, equal, round, and reactive; extraocular movement intact Ears: no hemotympanum, no blood in external auditory canal, no abrasions, no win's sign Nose: no epistaxis, no deformity Mandible: no deformity, no malocclusion, some gurgled speech that is incomprehensible Neck: cervical-collar in place, no hematoma, no ecchymosis, no wounds, trachea midline Chest: symmetric, no deformity, sternum, chest wall, and clavicles are nontender to palpation, no crepitus appreciated Heart: regular rate and rhythm Lungs: clear to auscultation bilaterally Abdomen: Large reducible ventral hernia, nontender Pelvis: stable, nontender, stool in underwear, suspicious for incontinence Back: no ecchymosis, no abrasions, no hematoma, no wounds Cervical spine: no midline deformities or stepoffs, no tenderness, cervical- collar in place Thoracic spine: no midline deformities or stepoffs, no tenderness Lumbar spine: no midline deformities or stepoffs, no tenderness Extremities: no long bone deformities, bilateral 3+ LE edema, with severe bilateral hemosiderins. Decreased ROM in bilateral LE Neurologic: GCS14; 2/5 strength in bilateral lower extremities. Sensation to light touch intact. Vascular: palpable dorsalis pedis and radial pulses bilaterally Results Review 7 day results Labs & Documents Laboratory : LABORATORY 09/21/2022 12:49 EST WBC 9.8 k/mm3 RBC 3.84 m/mm3 L Hgb 10.3 Gm/dL L Hct 32.6 % L MCV 84.9 femtoliters MCH 26.8 pg L MCHC 31.6 g/dL L Platelet Count 88 k/mm3 L RDW-SD 58.8 femtoliters H MPV 9.2 femtoliters L Nucleated RBC (Automated) 0.0 #/100 WBC'S Abs. NRBC 0.0 k/mm3 Abs. Neut 6.9 k/mm3 Abs. Lymph 1.8 k/mm3 Abs. Wells 0.8 k/mm3 Abs. Eo 0.1 k/mm3 Abs. Baso 0.1 k/mm3 Neut % 71.2 % Lymph % 18.6 % Wells % 8.4 % Eos % 0.8 % Baso % 0.6 % Imm Gran 0.4 % Abs. Imm Gran 0.0 k/mm3 INR 1.3 H Protime (PT) 13.5 seconds H APTT 27.8 seconds Amylase 51 units/L Lactate 4.9 mmol/L H CK, Total 274 units/L Ethanol, Serum or Plasma NONE DETECTED mg/dL Hold Red Top SPECIMEN DISCARDED AFTER 1 WEEK COVID-19 by RT-PCR NEGATIVE RESULT: CT Head/Brain W/O Contrast CT Head/Brain W/O Contrast, CT Cervical Spine W/O Contrast INDICATION: Head trauma, mod-severe; Clinical Question(s): Hematoma TECHNIQUE: Noncontrast head CT using axial technique was reconstructed in axial and coronal planes. Noncontrast spiral CT through the cervical spine was formatted in 3 planes. Automatic tube modulationwas used for the cervical spine and iterative dose reconstruction was used for both the head and cervical spine to optimize scan parameters and image quality. CTDIvol Body: 17.80 mGy, DLP Body: 412 mGy*cm. CTDIvol Head: 39.90 mGy, DLP Head: 671 mGy*cm. COMPARISON: None. FINDINGS: News Reporter View Findings, Lines and Tubes: None. BRAIN AND EXTRA-AXIAL SPACES: There is a moderate subgaleal hematoma extending from the right posterior occipital lobe partially to the left, measuring 6.0 x 1.0 cm. No parenchymal hemorrhage, midline shift, or mass effect. Parekh-white matter differentiation is well preserved. No acute infarct. Negative insular ribbon sign. Atherosclerotic vascular calcification of the carotid arteries but negative hyperdense vessel sign. Mild prominence of the ventricles and sulci consistent with parenchymal volume loss. Mild low-density white matter changes. No subarachnoid hemorrhage. No subdural or epidural collection. CALVARIUM, SKULL BASE, AND SOFT TISSUES: No fractures or suspicious bony lesions. Mild mucosal thickening in the right maxillary sinus. Other visualized paranasal sinuses and mastoidair cells are clear. Visualized orbits and globes are intact. The extracranial soft tissues are unremarkable. CERVICAL SPINE: No fracture. No acute osseous abnormalities. Normal alignment. No locked or perched facet. Moderate multilevel degenerative disc space narrowing and end plate irregularity. OTHER BONES: No acute abnormality. CERVICAL SOFT TISSUES AND LUNG APICES: Visualized lung apices are clear. Right thyroid gland nodule measuring 3.6 cm. IMPRESSION: 1. Moderate subgaleal hematoma in the occipital region. 2. No acute intracranial abnormality. No acute cervical spine abnormality. RESULT: CT Chest W/ Contrast CT Chest W/ Contrast, CT Abd/Pelvis W/ IV Contrast Only INDICATION: Reason: Other:; Chest trauma, blunt; Clinical Question(s): Other:; Aortic hilar injury TECHNIQUE: Helical CT scan of the chest, abdomen, and pelvis with IV contrast, formatted in 3 planes. 100 cc of Omnipaque 300 was administered intravenously. This study was performed without oral contrast. Weight-based protocol was performed using automatic exposure control. CTDIvol Body: 19.20 mGy, DLP Body: 1333 mGy*cm. COMPARISON: None. FINDINGS: News Reporter view findings, lines and tubes: None. Trachea and airways: Patent without evidence of tracheal or endobronchial lesion. Lungs and pleura: Limited evaluation for small pulmonary nodules due to respiratory motion artifact.No effusion or pneumothorax. Mediastinum and bismark: No mass or hematoma. No mediastinal or hilar lymphadenopathy. No esophageal abnormality. 3.7 cm heterogeneous right thyroid nodule. Heart: Mild cardiomegaly. No pericardial effusion. Moderate coronary artery calcification. Aorta: No aortic aneurysm. Pulmonary arteries: Normal caliber. No evidence of pulmonary embolism on this study performed without angiographic technique. Chest wall soft tissues: Gynecomastia. No hematoma. Diaphragm: Intact. Liver: Fatty liver. No laceration. Gallbladder: No CT evidence of gallbladder pathology. Bile ducts: No biliary ductal dilation. Spleen: Splenomegaly measuring up to 15 cm in AP dimension. No laceration. Pancreas: No suspicious lesion or ductal dilatation. Adrenal glands: No nodule. Kidneys and ureters: Right kidney is unremarkable. 2.3 cm left upper pole lesion, indeterminate by Hounsfield units, likely proteinaceous or hemorrhagic cyst. Indeterminate mass arising from the lower pole the left kidney measuring up to 2.8 cm. Bladder: Thick walled but underdistended. Reproductive organs: Unremarkable. Stomach, small bowel, and large bowel: Scattered colonic diverticula without diverticulitis. The colon is decompressed. No small bowel obstruction. Appendix: Not seen, but no evidence of acute appendicitis. Peritoneum and retroperitoneum: No ascites or pneumoperitoneum. No omental or mesenteric lesions. Lymph nodes: Multiple shotty retroperitoneal lymph nodes. Multiple tiny mesenteric lymph nodes with mild stranding of the central mesentery. Aortocaval lymph node measuring up to 1.6 cm in short axis, series 201 image 91. Multiple small inguinal lymph nodes not enlarged by size criteria. Additional upper abdominal lymph nodes for example along the celiac access measuring up to 12 mm in short axis on series 2 on image 74. Blood vessels: Mild vascular calcifications but no aneurysm. No evidence of venous thrombosis. Abdominal and pelvic wall soft tissues: No acute abnormality. Soft tissue prominence in the left perineum as seen on series 201 image 207. Bones: Multiple tiny bone islands noted in the femoral heads bilaterally. No pelvic fracture. Vertebral body heights are maintained. IMPRESSION: 1. No acute abnormality. 2. 2.8 cm indeterminate left lower pole renal lesion concerning for malignancy. Indeterminate left upper pole renal lesion likely hemorrhagic or proteinaceous cyst. Renal mass protocol MRI is recommended if not ordered and performed elsewhere for further evaluation. Ultimately histopathologic correlation of the left lower pole lesion may be necessary. 3. Fatty liver and mild splenomegaly. This likely reflects chronic hepatocellular disease. Mildly prominent bao hepatis lymph nodes, likely reactive. 4. Heterogeneous 3.7 cm right thyroid nodule. Follow-up thyroid ultrasound is recommended if not performed elsewhere. 5. Soft tissue prominence along the left perineum at the anal verge, indeterminate. This could reflect external hemorrhoids or soft tissue mass. Clinical correlation is recommended Procedure FAST Exam Normal - no fluid x 4 quadrants. Impression and Plan 62yo M cat2 trauma s/p fall. +LOC, -EtOH, GCS 14. Injuries No Injuries Interventions - Stapling of posterior head laceration Consultants - None Plan - Admit to Medicine - Clear collar when able - Tertiary exam in the AM - Rest of care per primary team Discussed with Dr. Rock Trauma [id number] MD, Silvana: PERFORM Event Display: History and Physical Hospital Authored Date: Attending attestation: Patient seen, examined, and discussed with the Trauma team on his arrival as cat 2 trauma activation. His course, labs and studies were reviewed and findings on exam confirmed. I agree with the findings and assessment and plan as delineated above. Pt presents after fall from standing, cncerns for intoxication. With witnessed seizure activity. Injuries idnetified include scalp laceration, contusion. No intracranial injury noted. Incidental finding of renal mass - will need aditional workup. Admission evaluation note Kevin Pierre MD: MODIFY, MODIFY, MODIFY, PERFORM Event Display: Admission Note Authored Date: Patient: ??MARYLIN WALDEN ? Age:??62 Years?Sex:??Male?:??1960?? HPI: This is a 62yo man with a history of gout, HTN, HLD, CHF unknown EF, and alcoholism presenting with a fall. ?? Patient does not recall what happened, states he was drunk and apparently fell and split my head. ?? According to the notes, he had a witnessed fall in [employer] with head strike, followed by briefepisode of tonic clonic seizure. Upon EMS arrival, he was nonverbal, but appeared calm. ?? He is now alert and oriented, reporting head pain but otherwise at his baseline. ?? In the ED: BP 149/90 HR 93 O2 97% RA HGB 10, PLT 88 Chemistry pending INR 1.[address] head/C spine with hematoma but no intracranial pathology. ?? ROS: As above, rest of full review negative. ? PMH: Gout HTN HLD CHF Provoked DVT off anticoagulation ?? MEDS: Allopurinol: 400mg daily Lisinopril:5 mg??TABLET BY MOUTH EVERY DAY Magnesium Oxide: TAKE 1 TABLET BY MOUTH THREE TIMES DAILY FOR 5 DAYS THEN TAKE 1 TABLET BY MOUTH TWICE DAILY Metoprolol: 75mg BY MOUTH EVERY DAY Rosuvastatin: TAKE 1 TABLET BY MOUTH AT BEDTIME Spironolactone: 25 mg, By Mouth, Daily torsemide: 40mg BY MOUTH ONCE DAILY ? Exam: Temperature?No result Systolic Blood Pressure?140 ?(14:34) Diastolic Blood Pressure?93 ?(14:34) Pulse?91 ?(14:34) SpO2?97 ?(14:34) Respiratory Rate?20 ?(14:34) GEN: Comfortable in bed HEENT: Moist membranes, occpital laceration HEART: Warm extremities LUNGS: Breathing comfortably room air ABD: Soft, nontender : No thurston EXT: Warm, venous stasis dermatitis with tight swelling NEURO: Alert, oriented x3 PSYCH: Calm and cooperative ? CT Head/C spine: IMPRESSION: 1. ??Moderate subgaleal hematoma in the occipital region. 2. ??No acute intracranial abnormality. No acute cervical spine abnormality. ?? CT thorax: IMPRESSION: 1. ??No acute abnormality. 2. ??2.8 cm indeterminate left lower pole renal lesion concerning for malignancy. Indeterminate leftupper pole renal lesion likely hemorrhagic or proteinaceous cyst. Renal mass protocol MRI is recommended if not ordered and performed elsewhere for further evaluation. Ultimately histopathologic correla tion of the left lower pole lesion may be necessary. 3. ??Fatty liver and mild splenomegaly. This likely reflects chronic hepatocellular disease. Mildly prominent bao hepatis lymph nodes, likely reactive. 4. ??Heterogeneous 3.7 cm right thyroid nodule. Follow-up thyroid ultrasound is recommended if not performed elsewhere. 5. ??Soft tissue prominence along the left perineum at the anal verge, indeterminate. This could reflect external hemorrhoids or soft tissue mass. Clinical correlation is recommended ? Assessment and Plan: 62 M with HTN, history of DVT on rivaroxaban, CHF presents with a fall. ?? # EtOH Difficult to tell how much alcohol he has ingested, his reports are inconsistent. He drinks vodka, can't tell me how long it takes to finish a handle, states he often goes off vodka for weeks at a time. No current signs of withdrawal. - CIWA - Ativan 2mg prn CIWA - addiction and social work consulted ?? # Fall # Head laceration Due to disorientation from alcohol. - sutured ?? # Renal pole lesion - MRI ordered ?? # Gout - cont allopuirinol ?? # HTN - cont Lisinopril: TAKE 1 TABLET BY MOUTH EVERY DAY - cont metoprolol ?? # HLD - cont Rosuvastatin: TAKE 1 TABLET BY MOUTH AT BEDTIME ?? # CHF - cont Spironolactone: 25 mg, By Mouth, Daily - cont torsemide: TAKE 2 TABLETS BY MOUTH ONCE DAILY ? CODE = full DVT - compression DIET - regular EKG study Event Display: EKG Authored Date: Event Display: ECG 12-Lead Authored Date: Please click on pdf link to open report Event Display: ECG 12-Lead Authored Date: Ventricular Rate: 98 BPM Atrial Rate: 98 BPM P-R Interval: 218 ms QRS Duration: 120 ms Q-T Interval: 378 ms QTC Calculation(Bazett): 482 ms P [place]: 26 degrees R [place]: -50 degrees T [place]: 136 degrees Sinus rhythm with 1st degree A-V block Left anterior fascicular block T wave abnormality, consider lateral ischemia Abnormal ECG No previous ECGs available Confirmed by MICK SNYDER MD ([id number]) on 09/26/2022 11:58:28 AM Mcdonough: MICK SNYDER MD, RN, Lisa: PERFORM Event Display: Discharge/Transfer Note Hospital Authored Date: [id number] Nursing Discharge Note Entered On: 09/27/2022 17:28 EST Performed On: 09/27/2022 17:27 EST by Neha García RN Nursing Discharge Note 2 Discharge Time : 09/27/2022 17:25 EST Discharge Level of Care at Discharge : Homehealth/VNA Discharge VNA/Hospice/Home Care(v001) : [facility] Patient Left Unit Via : Wheelchair Patient Accompanied Off Unit with : Responsible adult DC Instructions Provided & Signed by Pt : Yes Patient Understands D/C Instructions : Yes Patient Instructions Discharge Signed : Yes Did Pt have Specialty Bed or Wound Vac : No Neha García RN - 09/27/2022 17:27 ESTFerVíctor roe Sr, MD A: MODIFY, PERFORM, MODIFY Event Display: Discharge/Transfer Note Hospital Authored Date: [id number] Patient: ??MARYLIN WALDEN ? Age:??62 Years?Sex:??Male?:??1960?? Patient Information Discharge Location: D6B Primary Care Physician: Not on Staff, PCP Admit Date/Time: 09/24/22 16:00 Discharge Disposition Discharge Disposition: ?? Discharge Diagnosis Fall (W19.XXXA) Scalp wound (S01.00XA) Fall at home , description suggestive of mechanical fall , precipitated by possible alcohol intoxication Again unwitnessed mechanical fall at hospital on 09/23/22 morning and small SDH on CT head POLLY( Acute Kidney injury):improving anemia, iron deficiency pancytopenia likely related to alcohol Gout HTN HLD CHF and chronic leg swelling h/o left leg DVT Concern for??obstructive sleep apnea/obesity hypoventilation syndrome ? _ Discharge Medications Allopurinol (allopurinol 300 mg oral tablet)?300?Milligram?1?tablet?By Mouth?Daily Cyanocobalamin (cyanocobalamin 1000 mcg oral tablet)?1,000?Microgram?1?tablet?By Mouth?Daily Folic Acid (folic acid 1 mg oral tablet)?1?Milligram?1?tablet?By Mouth?Daily Lisinopril (lisinopril 5 mg oral tablet)?TAKE 1 TABLET BY MOUTH EVERY DAY Magnesium Oxide (magnesium oxide 400 mg oral tablet)?TAKE 1 TABLET BY MOUTH THREE TIMES DAILY FOR5 DAYS THEN TAKE 1 TABLET BY MOUTH TWICE DAILY Metoprolol (Metoprolol Succinate ER 50 mg oral tablet, extended release)?TAKE 1 AND 1/2 TABLETS BY MOUTH EVERY DAY Rosuvastatin (rosuvastatin 5 mg oral tablet)?TAKE 1 TABLET BY MOUTH AT BEDTIME Spironolactone (spironolactone 25 mg oral tablet)?25?Milligram?By Mouth?Daily?for 30?Days Thiamine (thiamine 100 mg oral tablet)?100?Milligram?1?tablet?By Mouth?Daily?for 30?Days torsemide (torsemide 20 mg oral tablet)?TAKE 2 TABLETS BY MOUTH ONCE DAILY Ferrous Sulfate (ferrous sulfate 325 mg oral enteric coated tablet)?325?Milligram?By Mouth?Daily?for 30?Days ? Allergies Allergies ?(Active and Proposed Allergies Only) hydroCHLOROthiazide? (Severity: Unknown severity, Onset: Unknown) ? Objective ??62 year old male with a past medical history of lower extremity lymphedema, Left LE DVT, gout, hypertension, and hyperlipidemia, hospital admission in 11/2017 with renal failure requiring temporary hemodialysis secondary to rhabdomyolysis , alcohol abuse, presents to ED after fall at home with head [facility] , confusion. Admitted for further management. ??Patient was extremely confused and had a fall??in the hospital on 09/23??. Now mentation improving.Has worsening renal function ?? # Fall at home , description suggestive of mechanical fall , precipitated by possible alcohol intoxication # Again unwitnessed mechanical fall at hospital on 09/23/22 morning and small SDH on CT head patient sustained fall at home with head strike, confusion on admission. Trauma team evaluated him on admission and CT scans showed : Moderate subgaleal hematoma in the occipital region. No acute intracranial abnormality. No acute cervical spine abnormality. CT chest/abdomen/pelvis : No acute abnormality. 2.8 cm indeterminate left lower pole renal lesion concerning for malignancy. Indeterminate left upper pole renal lesion likely hemorrhagic or proteinaceous cyst. Renal mass protocol MRI is recommended if not ordered and performed elsewhere for further evaluation. Ultimately histopathologic correlation of the left lower pole lesion may be necessary. Fatty liver and mild splenomegaly. This likely reflects chronic hepatocellular disease. Mildly prominent abo hepatis lymph nodes, likely reactive. Heterogeneous 3.7 cm right thyroid nodule. Follow-up thyroid ultrasound is recommended if not performed elsewhere. Soft tissue prominence along the left perineum at the anal verge, indeterminate. This could reflect external hemorrhoids or soft tissue mass. Clinical correlation is recommended s/p scalp laceration suture in ED by trauma team and recommend suture removal in 5 days , trauma team signed off. serum ETOH : negative. serum drug screening : negative. lactic acidosis resolved. ?? On the night of 09/22,??patient was having withdrawal symptoms with hallucination , started on phenobarbital and transferred to [facility] for close monitoring of his alcohol withdrawal. on 09/23, patient had a fall??in the room??his head again. repeat CTH showed?? New 8 mm hyperdense extra-axial hematoma overlying the right parietal lobe, likely a small subdural hematoma. No acute cervical spinal abnormality. Neurosurgery consulted and recommend no intervention. Now??his mentation and withdrawal symptoms seems to be??gradually improving. ?? s/p CIWA protocol folic acid/MTV/thiamine SW consulted outpatient PCP f/u for Thyroid USG and renal mass, consider outpatient MRI abdomen with renal mass protocol. ?? neurosurgery okeyed??DVT prophylaxis Repeat head CT for acute neurologic decline of 2 or more GCS points only, would not routinely rescan ??PT eval rec rehab--repeat PT eval 09/27 recommend home with services ?? POLLY( Acute Kidney injury):improved creatinine on admission was??normal at 1.2 however worsened to 1.9--> 2---->1.5--->1.2 Clinically euvolemic if not hypovolemic s/p IVF resumed torsemide, lisinopril at discharge needs PCP and renal follow up outpatient ?? Anemia, iron deficiency pancytopenia likely related to alcohol :improved patient has normocytic anemia with hgb drop to 7.7 no active bleeding noted low platelets in 80s which improved next following days --mostly alcohol induced work up for anemia ordered low iron level ?? s/p Venofer IV 300 mg X2 monitor H/H improved ----above 8 counselled regarding alcohol abuse and side effects PCP to follow up outpatient ?? Gout cont allopurinol ?HTN resumed lisinopril and metoprolol??at discharge ?HLD cont Rosuvastatin ?? CHF and chronic leg swelling resumed spironolactone and torsemide? h/o left leg DVT was on Xarelto before but no longer taking it??per patient. Patient stated that he stop taking Xarelto since 5 years ago. ?? #Concern for??obstructive sleep apnea/obesity hypoventilation syndrome Nursing staff noted?? hypoxia at night. Patient will benefit from sleep study as outpatient. ? Measurements?? Height: 167 cm (09/26/22) Weight: 110.3 kg (09/24/22) Dry Weight: 100.8 kg (09/22/22) Body Mass Index:??36.14 kg/m2??Critical (09/22/22) ? Vital Signs?? Temperature: 99 DegF (09/27/22 14:00:00) Temperature Route: Oral (09/27/22 14:00:00) Pulse Rate: 63 bpm (09/27/22 14:00:00) Respiratory Rate: 18 br/min (09/27/22 14:00:00) Systolic Blood Pressure: 127 mm Hg (09/27/22 14:00:00) Diastolic Blood Pressure: 73 mm Hg (09/27/22 14:00:00) Blood pressure sites: Arm, left (09/27/22 14:00:00) Pulse Pressure: 54 mm Hg (09/27/22 14:00:00) Oxygen Saturation: 98 % (09/27/22 14:00:00) Mode of Delivery (Oxygen): Room air (09/27/22 14:00:00) Early Warning Score: 0 (09/27/22 14:28:48) ? Intake/Output? 09/24 16:00 09/27 07:00 09/26 07:00 09/25 07:00 09/24 07:00 ?? 09/27 14:45 09/27 14:45 09/27 06:59 09/26 06:59 09/25 06:59 Intake ? 3480.0 ?565.0 ?845.0 ?520 ?600 Output ? 6750 ?500 ? 1375 ? 2875 ?875 Net Total ?-3270.0 ? 65.0 ? -530.0 ?-2355 ? -275 ? Urine Count ?2 ?0 ?0 ?0 ?2 ? . Physical Exam General: Awake, not in??distress, looks weak and tired Head and neck: Atraumatic, no neck swelling Eye: no injection or jaundice, EOMI. Cardiac: RRR, no murmurs, gallops or rubs, no S3 or S4. Pulmonary:??diminished ??breathing sounds bilaterally with good air entery with??no wheezing or??rhonchi Abdominal: No tenderness or rebound tenderness, normal BS, no HSM Skin: No rashes, jaundice or scratching clark Extremities:??2+ B/L LL ??edema, no?? varicose veins Neuro: awake, alert oriented X3, no focal weakness. Psych: Not anxious Pending Results Add On Lab Order ordered on 09/21/2022 Add On Lab Order ordered on 09/21/2022 Add On Lab Order ordered on 09/26/2022 Add On Lab Order ordered on 09/26/2022 Basic Metabolic Panel ordered on 09/28/2022 CBC ordered on 09/28/2022 Magnesium Level ordered on 09/28/2022 Uric Acid ordered on 09/28/2022 Follow-Up Appointments Added Follow Up ?Time Frame ?Comments PCP Not on Staff?1 week Post Discharge Care Discharge ?09/27/22 14:44:00 EST Home Health Face to Face *Denotes mandatory mccarthy ?? *I certify that this patient is under my care and that I or an allowed non- physician [facility] a face to face encounter with the patient on this date:??09/27/2022 14:47 ?? *The encounter with the patient was in whole, or in part, for the following medical condition, whichis the primary diagnosis(es) for home health care:??Fall (W19.XXXA) Scalp wound (S01.00XA) ? *Select the indications for the discipline/s that are being arranged for this patient. Nursing (select all that apply): [_] None [XXX_] Medication management (reconciliation, teaching)?? [_XXX] Chronic disease management?? [_] Wound care and treatment?? [_] Home safety evaluation [_] Administer SQ/IM/IV medications?? [_] Cath care?? [_] Drain care?? [_] Trach or GT care?? Other _ Occupation Therapy (select all that apply): [_] None [XXX_] ADL Management [XXX_] Fall prevention training [_] Energy conservation [_] Cognitive training Other _ Physical Therapy (select all that apply): [_] None [_XXX] Functional mobility training [_XXX] Home exercise program to strengthen [_] Increase ROM?? [_XXX] Falls prevention training [_] Home maintenance program for chronic disease Other _ Speech Therapy (select all that apply): [_] None [_] Swallow evaluation and training [_] Speech and language training [_] Cognitive training to process, organize, and/or recall information Other _ ? *Homebound due to (select all that apply): [XXX_] Inability to leave home without assistance/supervision [_] Inability to ambulate without assistance [_] Pain [_] Decreased strength and endurance [_] Unsteady gait [_] Severe SOB and fatigue [_] Impaired transfers [_] Inability to negotiate stairs [_] Limited weight bearing [_] Mental status change? *Physician Signature:??Víctor Patel MD ?? *By signing this, I certify that I have personally evaluated the patient and agree with the findingsand recommendations as documented above. ? Results Discharge Labs BLOOD BANK Blood Type O Negative ()?? 09/21/2022 12:44 Antibody Screen Negative ()?? 09/21/2022 12:44 ?? BLOOD COUNT & DIFF WBC 5.8 k/mm3 ()?? 09/27/2022 02:16 RBC 3.07 m/mm3 (Low)?? 09/27/2022 02:16 Hgb 8.3 Gm/dL (Low)?? 09/27/2022 02:16 Hct 26.5 % (Low)?? 09/27/2022 02:16 MCV 86.3 femtoliters ()?? 09/27/2022 02:16 MCH 27.0 pg ()?? 09/27/2022 02:16 MCHC 31.3 g/dL (Low)?? 09/27/2022 02:16 Platelet Count 195 k/mm3 ()?? 09/27/2022 02:16 RDW-SD 57.9 femtoliters (High)?? 09/27/2022 02:16 MPV 9.1 femtoliters (Low)?? 09/27/2022 02:16 Nucleated RBC (Automated) 0.0 #/100 WBC'S ()?? 09/27/2022 02:16 Abs. NRBC 0.0 k/mm3 ()?? 09/27/2022 02:16 Abs. Neut 3.8 k/mm3 ()?? 09/25/2022 05:40 Abs. Lymph 1.9 k/mm3 ()?? 09/25/2022 05:40 Abs. Wells 1.0 k/mm3 ()?? 09/25/2022 05:40 Abs. Eo 0.3 k/mm3 ()?? 09/25/2022 05:40 Abs. Baso 0.1 k/mm3 ()?? 09/25/2022 05:40 Neut % 53.8 % ()?? 09/25/2022 05:40 Lymph % 26.8 % ()?? 09/25/2022 05:40 Wells % 14.3 % (High)?? 09/25/2022 05:40 Eos % 3.5 % ()?? 09/25/2022 05:40 Baso % 0.9 % ()?? 09/25/2022 05:40 Retic Count 2.1 % ()?? 09/26/2022 00:22 Retic Count Corrected 1.1 % ()?? 09/26/2022 00:22 Retic Production Index 0.6 % (Low)?? 09/26/2022 00:22 Imm Gran 0.7 % ()?? 09/25/2022 05:40 Abs. Imm Gran 0.1 k/mm3 ()?? 09/25/2022 05:40 ? CARDIAC CK, Total 257 units/L ()?? 09/26/2022 00:22 ? CHEM GENERAL Sodium 139 mmol/L ()?? 09/27/2022 02:16 Potassium 4.3 mmol/L ()?? 09/27/2022 02:16 Chloride 103 mmol/L ()?? 09/27/2022 02:16 Bicarbonate Level 24 mmol/L ()?? 09/27/2022 02:16 Anion Gap 12 ()?? 09/27/2022 02:16 Glucose Level 112 mg/dL (High)?? 09/27/2022 02:16 BUN 21 mg/dL ()?? 09/27/2022 02:16 Creatinine-Blood 1.2 mg/dL ()?? 09/27/2022 02:16 Estimated GFR Creatinine 70 ML/MIN/1.73 M2 ()?? 09/27/2022 02:16 Calcium 8.6 mg/dL ()?? 09/27/2022 02:16 Phosphorus 2.8 mg/dL ()?? 09/27/2022 02:16 Magnesium 1.5 mg/dL (Low)?? 09/27/2022 02:16 Protein, Total 6.4 Gm/dL ()?? 09/21/2022 15:42 Albumin 3.6 Gm/dL ()?? 09/21/2022 15:42 AG Ratio 1.3 ()?? 09/21/2022 15:42 Alkaline Phosphatase 119 units/L ()?? 09/21/2022 15:42 Amylase 51 units/L ()?? 09/21/2022 12:49 AST (SGOT) 19 units/L ()?? 09/21/2022 15:42 ALT (SGPT) 6 units/L ()?? 09/21/2022 15:42 Bilirubin, Total 1.8 mg/dL (High)?? 09/21/2022 15:42 Vitamin B12 Level 1030 pg/mL ()?? 09/26/2022 00:22 Folic Acid Level 7.0 ng/mL ()?? 09/26/2022 00:22 Lactate 1.0 mmol/L ()?? 09/22/2022 11:15 Uric Acid 8.0 mg/dL ()?? 09/27/2022 02:16 Iron Level 15 mcg/dL (Low)?? 09/26/2022 00:22 Iron Binding Capacity, Unsaturated 144 mcg/dL ()?? 09/26/2022 00:22 Iron Binding Capacity, Estimated Total 159 mcg/dL ()?? 09/26/2022 00:22 % Iron Saturation 9 % (Low)?? 09/26/2022 00:22 ?? COAG INR 1.3 (High)?? 09/21/2022 12:49 Protime (PT) 13.5 seconds (High)?? 09/21/2022 12:49 APTT 27.8 seconds ()?? 09/21/2022 12:49 ? MISC. CHEMISTRY Hold Red Top SPECIMEN DISCARDED AFTER 1 WEEK ()?? 09/21/2022 12:49 ? TOXICOLOGY/TDM Ethanol, Serum or Plasma NONE DETECTED mg/dL ()?? 09/21/2022 12:49 Barbiturate Screen, Urine NONE DETECTED ()?? 09/21/2022 18:13 Cannabinoid Screen, Urine NONE DETECTED ()?? 09/21/2022 18:13 Cocaine Metabolite Screen, Urine NONE DETECTED ()?? 09/21/2022 18:13 Benzodiazepine Screen, Urine NONE DETECTED ()?? 09/21/2022 18:13 Amphetamine Screen, Urine NONE DETECTED ()?? 09/21/2022 18:13 Opiate Screen, Urine NONE DETECTED ()?? 09/21/2022 18:13 ? VIROLOGY COVID-19 by RT-PCR NEGATIVE ()?? 09/21/2022 12:49 COVID-19 PCR Specimen Source NASAL ()?? 09/27/2022 05:34 COVID-19 PCR Result NEGATIVE ()?? 09/27/2022 05:34 ? Microbiology ?? COVID-19 (Novel Coronavirus), Rapid PCR?? Completed?? Source: Nasal Body Site: Nose Collected Dt/Tm: 09/21/2022 12:45 Last Updated Dt/Tm: 09/21/2022 13:35 COVID-19 (2019 Novel Coronavirus) PCR?? Completed?? Source: Nasal Body Site: Nose Collected Dt/Tm: 09/24/2022 05:31 Last Updated Dt/Tm: 09/24/2022 13:29 COVID-19 (2019 Novel Coronavirus) PCR?? Completed?? Source: Nasal Body Site: Nose Collected Dt/Tm: 09/27/2022 05:34 Last Updated Dt/Tm: 09/27/2022 11:15 ? >50_ minutes spent on discharge Urmila Gruber RN: PERFORM, SIGN, VERIFY Event Display: Case Management Discharge Plan Authored Date: Patient: MARYLIN WALDEN Age: 62 years Sex: Male : 1960 Associated Diagnoses: None Author: Urmila Gruber RN Discharge Plan Case Management Discharge Plan : Case Management Discharge Plan Data 09/27/2022 14:59 EST Discharge Level of Care at Discharge Homehealth/VNA Discharge VNA/Hospice/Home Care [facility] Residential Sales Manager #1 central intake Service Categories #1 Physical Therapy Service Comments #1 VNA services have been arranged for you for home PT--the agency will call you to [facility]ies RN: PERFORM Event Display: Patient Education/Instruction Authored Date: Inpatient [place] [address] Name: MARYLIN WALDEN : 1960 Visit: 09/24/2022 16:00:00 Current Date: 09/27/2022 16:49 Account: [id number] Inpatient Adult Discharge Instructions We would like to thank you for allowing us to assist you with your healthcare needs. The following includes patient education materials and information regarding your injury/illness. Our entire staff strives to provide an excellent experience for our patients and their families. PLEASE ENSURE YOU FOLLOW-UP PER THE INSTRUCTIONS BELOW! ?? YOUR OPINION IS IMPORTANT TO US! Please complete the survey you may receive by mail or email. Your feedback will be used to make improvements to the healthcare experiences of our patients and their families. Surveys are administered by [employer] ?? If further treatment with your primary care physician or another doctor is recommended, it is important for you to keep the appointment. Call your primary care physician or return to the Emergency Department immediately if your condition worsens, fails to improve, or new symptoms develop. If you need to find a doctor, you can call [facility] for a referral at [phone] or toll free at [phone] or log in to [email or web address].. ?? You can view and manage your care through the patient portal or by using a health care denys of your choosing. [employer] is a website that allows you to securely view your medical information including your hospital discharge summary, office visit summaries, medications and follow-up visits. You can also request appointments, renew medications, and request access to your medical information using a health care denys of your choosing, or just ask a question. You can enroll at [email or web address] or register during your next office visit. You have been discharged from [facility], Patient Care Unit: D6B. If you have any questions regarding these instructions after you leave, please call us and we will be happy to assist you. [facility] Your Care Team Attending Physician Víctor Patel Sr, MD Discharging Providers Víctor Patel Sr, MD Reason for Admission SYNCOPE ALCOHOL WITHDRAWAL Your Diagnosis Scalp wound Fall Tests Performed Below is a partial list of the tests performed during your hospitalization. You may have had other tests and procedures not included in this list. Please discuss all test results with your provider. ALBUMIN Alcohol Level ALK PHOS ALT Amphetamine Urine Screen Amylase AST Barbiturate Urine Screen Benzodiazepine Urine Screen BILIRUBIN,TOTAL BUN Calcium Level Cannabinoid Urine Screen CBC w/ Differential CK,TOTAL ONLY Cocaine Urine Screen Comprehensive Metabolic Panel COVID-19 (2019 Novel Coronavirus) PCR COVID-19 (Novel Coronavirus), Rapid PCR Creatinine Electrolytes FOLIC ACID Glucose Level H + H Hold Red Top Tube IRON & TIBC Lactic Acid Level MAGNESIUM Opiate Screen Urine Phosphorus Level PT (INR) PTT RETICULOCYTE COUNT Type and Screen VITAMIN B12 CT Abd/Pelvis W/ IV Contrast Only CT Cervical Spine W/O Contrast CT Chest W/ Contrast CT Head/Brain W/O Contrast XR Chest Portable Primary Care Provider Not on Staff, PCP Advance Directive Health Care Proxy on File Yes - Health Care Proxy Caregiver Relationship: Sister Name of Caregiver: Niharika Todd Patient has a Designated Caregiver: Yes Discharge Vitals Temperature: 99 DegF Height: 167 cm Pulse Rate: 63 bpm Weight: 110.3 kg Respiratory Rate: 18 br/min Body Mass Index:??36.14 kg/m2??Critical Systolic Blood Pressure: 127 mm Hg Body surface area: 2.16 Diastolic Blood Pressure: 73 mm Hg ?? Oxygen Saturation: 98 % ?? Studies Pending All tests and labs ordered during this hospital stay have been completed unless listed below. Pleasediscuss all pending results with your provider listed above in these instructions. ?? Add On Lab Order Basic Metabolic Panel CBC Magnesium Level (Mg Level) Uric Acid What to do next Instructions From Your Doctor Discharge Orders You Need to Schedule the Following Appointments Follow Up with??PCP Not on Staff When??Within 1 week Discharge Medications MARYLIN RODRIGUEZ :1960 Visit Date:09/24/2022 Medications: Please continue your medications until treatment is completed or stopped by your provider. Medications not listed below should be discontinued. Discuss any questions related to medications with your provider. What How Much When Instructions Next Dose New Cyanocobalamin (cyanocobalamin 1000 mcg oral tablet) 1 tab(s) Oral Daily Pickup at [facility] 3 am on 09/28 New Ferrous Sulfate (ferrous sulfate 325 mg oral enteric coated tablet) 325 Milligram Oral Daily Duration: 30 Days Pickup at [facility] 3 am on 09/28 New Folic Acid (folic acid 1 mg oral tablet) 1 tab(s) Oral Daily Pickup at [facility] 3 am on 09/28 New Thiamine (thiamine 100 mg oral tablet) 1 tab(s) Oral Daily Duration: 30 Days Pickup at [facility] 3 am on 09/28 Changed Allopurinol (allopurinol 300 mg oral tablet) 1 tab(s) Oral Daily am on 09/28 Unchanged Lisinopril (lisinopril 5 mg oral tablet) TAKE 1 TABLET BY MOUTH EVERY DAY ?? am on 09/28 Unchanged Magnesium Oxide (magnesium oxide 400 mg oral tablet) TAKE 1 TABLET BY MOUTH THREE TIMES DAILY FOR 5 DAYS THEN TAKE 1 TABLET BY MOUTH TWICE DAILY ?? tonight Unchanged Metoprolol (Metoprolol Succinate ER 50 mg oral tablet, extended release) TAKE 1 AND 1/ 2 TABLETS BY MOUTH EVERY DAY ?? am on 09/28 Unchanged Rosuvastatin (rosuvastatin 5 mg oral tablet) TAKE 1 TABLET BY MOUTH AT BEDTIME ?? night on 09/28 Unchanged Spironolactone (spironolactone 25 mg oral tablet) 25 Milligram Oral Daily Duration: 30 Days am on 09/28 Unchanged torsemide (torsemide 20 mg oral tablet) TAKE 2 TABLETS BY MOUTH ONCE DAILY ?? am on 09/28 Pharmacy Information [facility] 3: [address], [place] [id number] [phone] Test Results Below is a partial list of the most recent Laboratory test results done prior to this discharge. You may have had other tests and procedures not included in this list. Please discuss all test results with your provider. ALBUMIN (09/21/2022) ???Albumin - 4.2 Gm/dL Alcohol Level (09/21/2022) ???Ethanol, Serum or Plasma - NONE DETECTED ALK PHOS (09/21/2022) ???Alkaline Phosphatase - 137 units/L ALT (09/21/2022) ???ALT (SGPT) - 7 units/L Amphetamine Urine Screen (09/21/2022) ???Amphetamine Screen, Urine - NONE DETECTED Amylase (09/21/2022) ???Amylase - 51 units/L AST (09/21/2022) ???AST (SGOT) - 24 units/L Barbiturate Urine Screen (09/21/2022) ???Barbiturate Screen, Urine - NONE DETECTED Benzodiazepine Urine Screen (09/21/2022) ???Benzodiazepine Screen, Urine - NONE DETECTED BILIRUBIN,TOTAL (09/21/2022) ???Bilirubin, Total - 2.4 mg/dL BUN (09/25/2022) ???BUN - 32 mg/dL Calcium Level (09/25/2022) ???Calcium - 7.1 mg/dL Cannabinoid Urine Screen (09/21/2022) ???Cannabinoid Screen, Urine - NONE DETECTED CBC w/ Differential (09/25/2022) ???WBC - 7.1 k/mm3???RBC - 2.98 m/mm3???Hgb - 8.0 Gm/dL???Hct - 25.8 %???MCV - 86.6 femtoliters???MCH - 26.8 pg???MCHC - 31.0 g/dL???Platelet Count - 129 k/mm3???RDW-SD - 60.3 femtoliters???MPV - 10.3 femtoliters???Nucleated RBC (Automated) - 0.0 #/100 WBC'S???Abs. NRBC - 0.0 k/mm3???Abs. Neut - 3.8 k/ mm3???Abs. Lymph - 1.9 k/mm3???Abs. Wells - 1.0 k/mm3???Abs. Eo - 0.3 k/mm3???Abs. Baso - 0.1 k/mm3???Neut % - 53.8 %???Lymph % - 26.8 %???Wells % - 14.3 %???Eos % - 3.5 %???Baso % - 0.9 %???Imm Gran - 0.7 %???Abs. Imm Gran - 0.1 k/mm3 CK,TOTAL ONLY (09/26/2022) ???CK, Total - 257 units/L Cocaine Urine Screen (09/21/2022) ???Cocaine Metabolite Screen, Urine - NONE DETECTED Comprehensive Metabolic Panel (09/21/2022) ???Sodium - 139 mmol/L???Potassium - 3.6 mmol/L???Chloride - 93 mmol/L???Bicarbonate Level - 25 mmol/L???Anion Gap - 21???Glucose Level - 114 mg/dL???BUN - 20 mg/dL???Creatinine-Blood - 1.2 mg/dL???Estimated GFR Creatinine - 69 ML/MIN/1.73 M2???Calcium - 7.7 mg/dL???Protein, Total - 6.4 Gm/dL???Albumin - 3.6 Gm/dL???AG Ratio - 1.3???Alkaline Phosphatase - 119 units/L???AST (SGOT) - 19 units/L???ALT (SGPT) - 6 units/L???Bilirubin, Total - 1.8 mg/dL COVID-19 (2019 Novel Coronavirus) PCR (09/27/2022) ???COVID-19 PCR Specimen Source - NASAL???COVID-19 PCR Result - NEGATIVE COVID-19 (Novel Coronavirus), Rapid PCR (09/21/2022) ???COVID-19 by RT-PCR - NEGATIVE Creatinine (09/25/2022) ???Creatinine-Blood - 2.0 mg/dL???Estimated GFR Creatinine - 37 ML/MIN/1.73 M2 Electrolytes (09/25/2022) ???Sodium - 137 mmol/L???Potassium - 3.7 mmol/L???Chloride - 97 mmol/L???Bicarbonate Level - 27 mmol/L???Anion Gap - 13 FOLIC ACID (09/26/2022) ???Folic Acid Level - 7.0 ng/mL Glucose Level (09/25/2022) ???Glucose Level - 108 mg/dL H + H (09/26/2022) ???Hgb - 7.7 Gm/dL???Hct - 23.8 % Hold Red Top Tube (09/21/2022) ???Hold Red Top - SPECIMEN DISCARDED AFTER 1 WEEK IRON & TIBC (09/26/2022) ???Iron Level - 15 mcg/dL???Iron Binding Capacity, Unsaturated - 144 mcg/dL???Iron Binding Capacity,Estimated Total - 159 mcg/dL???% Iron Saturation - 9 % Lactic Acid Level (09/22/2022) ???Lactate - 1.0 mmol/L MAGNESIUM (09/26/2022) ???Magnesium - 1.1 mg/dL Opiate Screen Urine (09/21/2022) ???Opiate Screen, Urine - NONE DETECTED Phosphorus Level (09/27/2022) ???Phosphorus - 2.8 mg/dL PT (INR) (09/21/2022) ???INR - 1.3???Protime (PT) - 13.5 seconds PTT (09/21/2022) ???APTT - 27.8 seconds RETICULOCYTE COUNT (09/26/2022) ???Retic Count - 2.1 %???Retic Count Corrected - 1.1 %???Retic Production Index - 0.6 % Type and Screen (09/21/2022) ???Blood Type - O Negative???Antibody Screen - Negative VITAMIN B12 (09/26/2022) ???Vitamin B12 Level - 1030 pg/mL Allergies (NKA means No Known Allergies) hydroCHLOROthiazide Problems Active Problems??(2) Fall?? Obese class II?? Education Materials Below is the list of Educational Leaflet Providered with your Discharge Instructions. Valuables and Belongings I fully understand and agree that [facility] accepts no responsibility for all my personal property including clothing, toilet articles, radios, jewelry, dentures, hearing aids, rings, money, or any other property that is in my possession or is brought to me after admission. I understand certain valuables may be placed in a hospital safe for a short period of time. I understand that the hospital is not liable for loss or damage due to accident, fire, or other natural occurrence while said property is in the safe. I accept full responsibility for any personal property that I keep with me, and will not hold the hospital responsible in case of loss or disappearance. I acknowledge that i have been encouraged to send valuables and belongings home. ?? Review of Valuable and Belonging List: With patient Date for Pt to Sign Valuables/Belongings: 09/25/22 18:35:00 ?? Other Discharge Information ?? Wound Assessment?? Wound Assessment?? Wound Location I: Occipital Wound Type I: Shear Injury Wound Location II: Foot, right ?? Case Management Discharge Plan?? Discharge Plan?? Discharge Agency Information?? Discharge Level of Care at Discharge: Homehealth/VNA Agency Residential Sales Manager #1: central intake Discharge VNA/Hospice/Home Care: [facility] Categories #1: Physical Therapy ?? Service Comments #1: VNA ??services have been arranged for you for home PT--the agency will call youto arrange the visits ?? Pulmonary Rehab Status?? Pulmonary Rehab Discharge Status?? Respiratory Rate: 18 br/min ? Common Emergency Awareness Tips IS IT A STROKE? Act FAST and Check for these signs: FACE Does the face look uneven? ARM Does one arm drift down? SPEECH Does their speech sound strange? TIME Call at any sign of stroke ?? Heart Attack Signs Chest discomfort: Most heart attacks involve discomfort in the center of the chest and lasts more than a few minutes, or goes away and comes back. It can feel like uncomfortable pressure, squeezing, fullness or pain. Discomfort in upper body: Symptoms can include pain or discomfort in one or both arms, back, neck, jaw or stomach. Shortness of breath: With or without discomfort. Other signs: Breaking out in a cold sweat, nausea, or lightheaded. Remember, MINUTES DO MATTER. If you experience any of these heart attack warning signs, call to get immediate medical attention! ?? Smoking can increase your chances of developing chronic health problems and can cause harmful effects to other family members in your house. If you smoke, you are strongly encouraged to quit. Please call [facility] at [phone] or [phone] ([phone]) or log in to [email or web address] for referrals to smoking cessation programs. ?? The National Suicide Prevention Hotline is available 11/03 if you or someone you know needs to find areason to keep living. By calling 2-111-286-[employer] (1033) you'll be connected to a skilled, trained counselor at a crisis center in your area. INPATIENT DISCHARGE INSTRUCTIONS SIGNATURE PAGE MARYLIN WALDEN Location:[facility] Registration Date and Time:09/24/2022 16:00 EST Primary Care Physician: Not on Staff, PCP I MARYLIN WALDEN, have received the above patient education materials/instructions and have verbalized understanding. If ambulance or transport services are being used I further acknowledge being given a choice of service. ?? If you need to contact me, please call me at this number: . Patient/Jack Strip Assembler Name: Patient/Jack Strip Assembler Signature: Relationship to Patient: Witness Name/Signature: Date: Víctor Patel Sr, MD: PERFORM, SIGN, VERIFY Event Display: Patient Education Handout Authored Date: Event Display: Cardiac Rhythm Strips Authored Date: Hospital Progress note Víctor Patel Sr, MD: PERFORM Event Display: Progress Note Hospital Authored Date: Patient: ??MARYLIN WALDEN ? Age:??62 Years?Sex:??Male?:??1960?? Subjective Patient is seen at bedside he is weak and tired not scoring at CIWA creatinine improving PT eval pending re-eval and SW consult Review of Systems General: Patient is awake, denied any fever, chills or shivering, feeling weak and tired Eye: No redness, no jaundice, no pain or discharge ENT: no nasal discharge or rhinorrhea Cardiovascular: no chest pain, no palpitation Pulmonary: No dyspnea, no wheezing, no cough or??sputum GI: No abdominal pain, no nausea, no vomiting, no constipation or diarrhea : No dysuria or blood with the urine, making good urine Extremities:no edema or swelling, no skin discoloration Skin: No rashes or itching , no jaundice Neuro: Awake, alert, no focal weakness, no numbness or tingling Psych: No anxiety, denied any mood changes??. Allergies Allergies ?(Active and Proposed Allergies Only) hydroCHLOROthiazide? (Severity: Unknown severity, Onset: Unknown) ? Objective Vital Signs?? Temperature: 97.8 DegF (09/27/22 07:00:00) Temperature Route: Oral (09/27/22 07:00:00) Pulse Rate: 59 bpm (09/27/22 07:00:00) Respiratory Rate: 18 br/min (09/27/22 07:00:00) Systolic Blood Pressure: 128 mm Hg (09/27/22 07:00:00) Diastolic Blood Pressure: 81 mm Hg (09/27/22 07:00:00) Blood pressure sites: Arm, left (09/27/22 07:00:00) Mean Arterial Pressure: 93 mm Hg (09/26/22 13:20:00) Pulse Pressure: 47 mm Hg (09/27/22 07:00:00) Oxygen Saturation: 96 % (09/27/22 07:00:00) Mode of Delivery (Oxygen): Room air (09/27/22 07:00:00) Early Warning Score: 2 (09/27/22 07:39:56) ? Intake/Output? 09/24 16:00 09/27 07:00 09/26 07:00 09/25 07:00 09/24 07:00 ?? 09/27 12:33 09/27 12:33 09/27 06:59 09/26 06:59 09/25 06:59 Intake ? 3480.0 ?565.0 ?845.0 ?520 ?600 Output ? 6750 ?500 ? 1375 ? 2875 ?875 Net Total ?-3270.0 ? 65.0 ? -530.0 ?-2355 ? -275 ? Urine Count ?2 ?0 ?0 ?0 ?2 ? Physical Exam General: Awake, not in??distress, looks weak and tired Head and neck: Atraumatic, no neck swelling Eye: no injection or jaundice, EOMI. Cardiac: RRR, no murmurs, gallops or rubs, no S3 or S4. Pulmonary:??diminished ??breathing sounds bilaterally with good air entery with??no wheezing or??rhonchi Abdominal: No tenderness or rebound tenderness, normal BS, no HSM Skin: No rashes, jaundice or scratching clark Extremities:??2+ B/L LL ??edema, no?? varicose veins Neuro: awake, alert oriented X3, no focal weakness. Psych: Not anxious Results Recent Labs BLOOD COUNT & DIFF WBC 5.8 k/mm3 ()?? 09/27/2022 02:16 RBC 3.07 m/mm3 (Low)?? 09/27/2022 02:16 Hgb 8.3 Gm/dL (Low)?? 09/27/2022 02:16 Hct 26.5 % (Low)?? 09/27/2022 02:16 MCV 86.3 femtoliters ()?? 09/27/2022 02:16 MCH 27.0 pg ()?? 09/27/2022 02:16 MCHC 31.3 g/dL (Low)?? 09/27/2022 02:16 Platelet Count 195 k/mm3 ()?? 09/27/2022 02:16 RDW-SD 57.9 femtoliters (High)?? 09/27/2022 02:16 MPV 9.1 femtoliters (Low)?? 09/27/2022 02:16 Nucleated RBC (Automated) 0.0 #/100 WBC'S ()?? 09/27/2022 02:16 Abs. NRBC 0.0 k/mm3 ()?? 09/27/2022 02:16 Retic Count 2.1 % ()?? 09/26/2022 00:22 Retic Count Corrected 1.1 % ()?? 09/26/2022 00:22 Retic Production Index 0.6 % (Low)?? 09/26/2022 00:22 ?? CARDIAC CK, Total 257 units/L ()?? 09/26/2022 00:22 ?? CHEM GENERAL Sodium 139 mmol/L ()?? 09/27/2022 02:16 Potassium 4.3 mmol/L ()?? 09/27/2022 02:16 Chloride 103 mmol/L ()?? 09/27/2022 02:16 Bicarbonate Level 24 mmol/L ()?? 09/27/2022 02:16 Anion Gap 12 ()?? 09/27/2022 02:16 Glucose Level 112 mg/dL (High)?? 09/27/2022 02:16 BUN 21 mg/dL ()?? 09/27/2022 02:16 Creatinine-Blood 1.2 mg/dL ()?? 09/27/2022 02:16 Estimated GFR Creatinine 70 ML/MIN/1.73 M2 ()?? 09/27/2022 02:16 Calcium 8.6 mg/dL ()?? 09/27/2022 02:16 Phosphorus 2.8 mg/dL ()?? 09/27/2022 02:16 Magnesium 1.5 mg/dL (Low)?? 09/27/2022 02:16 Vitamin B12 Level 1030 pg/mL ()?? 09/26/2022 00:22 Folic Acid Level 7.0 ng/mL ()?? 09/26/2022 00:22 Uric Acid 8.0 mg/dL ()?? 09/27/2022 02:16 Iron Level 15 mcg/dL (Low)?? 09/26/2022 00:22 Iron Binding Capacity, Unsaturated 144 mcg/dL ()?? 09/26/2022 00:22 Iron Binding Capacity, Estimated Total 159 mcg/dL ()?? 09/26/2022 00:22 % Iron Saturation 9 % (Low)?? 09/26/2022 00:22 ?? VIROLOGY COVID-19 PCR Specimen Source NASAL ()?? 09/27/2022 05:34 COVID-19 PCR Result NEGATIVE ()?? 09/27/2022 05:34 ? Abnormal Labs ?? BLOOD COUNT & DIFF ??Abs. NRBC ??0.0 k/mm3 () ??09/27/2022 02:16 ??Hct ??26.5 % (Low) ??09/27/2022 02:16 ??Hgb ??8.3 Gm/dL (Low) ??09/27/2022 02:16 ??MCHC ??31.3 g/dL (Low) ??09/27/2022 02:16 ??MPV ??9.1 femtoliters (Low) ??09/27/2022 02:16 ??Nucleated RBC (Automated) ??0.0 #/100 WBC'S () ??09/27/2022 02:16 ??RBC ??3.07 m/mm3 (Low) ??09/27/2022 02:16 ??RDW-SD ??57.9 femtoliters (High) ??09/27/2022 02:16 ? CHEM GENERAL ??Estimated GFR Creatinine ??70 ML/MIN/1.73 M2 () ??09/27/2022 02:16 ??Glucose Level ??112 mg/dL (High) ??09/27/2022 02:16 ??Magnesium ??1.5 mg/dL (Low) ??09/27/2022 02:16 ? VIROLOGY ??COVID-19 PCR Specimen Source ??NASAL () ??09/27/2022 05:34 ??COVID-19 PCR Result ??NEGATIVE () ??09/27/2022 05:34 ? Note: Critical results are displayed in red. ? Assessment/Plan ?62 year old male with a past medical history of lower extremity lymphedema, Left LE DVT, gout, hypertension, and hyperlipidemia, hospital admission in 11/2017 with renal failure requiring temporary hemodialysis secondary to rhabdomyolysis , alcohol abuse, presents to ED after fall at home with head [facility] , confusion. Admitted for further management. ??Patient was extremely confused and had a fall??in the hospital on 09/23??. Now mentation improving.Has worsening renal function ?? # Fall at home , description suggestive of mechanical fall , precipitated by possible alcohol intoxication # Again unwitnessed mechanical fall at hospital on 09/23/22 morning and small SDH on CT head patient sustained fall at home with head strike, confusion on admission. Trauma team evaluated him on admission and CT scans showed : Moderate subgaleal hematoma in the occipital region. No acute intracranial abnormality. No acute cervical spine abnormality. CT chest/abdomen/pelvis : No acute abnormality. 2.8 cm indeterminate left lower pole renal lesion concerning for malignancy. Indeterminate left upper pole renal lesion likely hemorrhagic or proteinaceous cyst. Renal mass protocol MRI is recommended if not ordered and performed elsewhere for further evaluation. Ultimately histopathologic correlation of the left lower pole lesion may be necessary. Fatty liver and mild splenomegaly. This likely reflects chronic hepatocellular disease. Mildly prominent bao hepatis lymph nodes, likely reactive. Heterogeneous 3.7 cm right thyroid nodule. Follow-up thyroid ultrasound is recommended if not performed elsewhere. Soft tissue prominence along the left perineum at the anal verge, indeterminate. This could reflect external hemorrhoids or soft tissue mass. Clinical correlation is recommended s/p scalp laceration suture in ED by trauma team and recommend suture removal in 5 days , trauma team signed off. serum ETOH : negative. serum drug screening : negative. lactic acidosis resolved. ?? On the night of 09/22,??patient was having withdrawal symptoms with hallucination , started on phenobarbital and transferred to [facility] for close monitoring of his alcohol withdrawal. on 09/23, patient had a fall??in the room??his head again. repeat CTH showed?? New 8 mm hyperdense extra-axial hematoma overlying the right parietal lobe, likely a small subdural hematoma. No acute cervical spinal abnormality. Neurosurgery consulted and recommend no intervention. Now??his mentation and withdrawal symptoms seems to be??gradually improving. ?? continue CIWA protocol folic acid/MTV/thiamine SW consult. outpatient PCP f/u for Thyroid USG and renal mass, consider outpatient MRI abdomen with renal mass protocol. continue tele monitoring. every 4 hours neurochecks No activity restrictions Collar can be cleared per Nexus criteria neurosurgery okeyed??DVT prophylaxis Repeat head CT for acute neurologic decline of 2 or more GCS points only, would not routinely rescan -Check orthostatic vitals. ??PT eval rec rehab--pending re-eval ?? POLLY( Acute Kidney injury):improving creatinine on admission was??normal at 1.2 however worsened to 1.9--> 2---->1.5--->1.2 Will hold lisinopril??as well as spironolactone and torsemide Held Metoprolol to avoid hypotension Clinically euvolemic if not hypovolemic. s/p IVF ?? anemia, iron deficiency patient has normocytic anemia with hgb drop to 7.7 no active bleeding work up for anemia ordered low iron level Venofer IV 300 mg X3 ordered monitor H/H transfuse if below 7 ?Gout cont allopurinol ?HTN -Hold lisinopril due to OPLLY. -Held metoprolol??due to soft blood pressure and borderline bradycardia.?? Resume if blood pressure is elevated ?HLD - cont Rosuvastatin ?? CHF and chronic leg swelling -no overt fluid overload noted on examination. -We will hold his spironolactone and torsemide for now.? # h/o left leg DVT was on xarelto before but no longer taking it??per patient. Patient stated that he stop taking Xarelto since 5 years ago. ?? #Concern for??obstructive sleep apnea/obesity hypoventilation syndrome Nursing staff noted?? hypoxia at night. Patient will benefit from sleep study as outpatient. ?? CODE = full DVT - compression , will start heparin SQ BID DIET - regular? OMN :??Acute kidney injury DC to rehab??, pending PT re- eval??and consult ? Sapna Whaley: PERFORM, SIGN, VERIFY Event Display: Progress Note Hospital Authored Date: Patient: MARYLIN WALDEN Age: 62 years Sex: Male : 1960 Associated Diagnoses: None Author: Sapna Whaley Findings Problem Related to Alteration in Cardiac Function (new) : Alteration in Cardiac Function/new 09/26/2022 20:00 EST Alteration in Cardiac Status Related to Syncope Goals & Outcomes, Cardiac Status Pt will resume/maintain adequate cardiac output, Pt will resume/maintain adequate hemodynamic status, Pt will resume/maintain adequate respiratory function, Pt will resume/maintain intact neuro function Cardiac Interventions Implemented Assess/monitor cardiac status, Assess/monitor neuro status, Assess/monitor respiratory status Goals/Interventions, Cardiac Yes Cardiac, Problem Start 09/25/2022 10:45 Reviewed Plan with, Cardiac Status Patient Patient Progression, Cardiac Status Patient progressing according to plan . Alteration in Neurological : Alteration in Neurological Function/new 09/26/2022 20:00 EST Alteration in Neuro status Related to Other: CIWA, found on ground 09/23 and hit head Goals & Outcomes, Neurological Pt will be hemodynamically stable, Pt will be Neurologically stable, Pt will maintain intact skin integrity, Pt will remain free from injury, Pt/caregiver will stateunderstanding of plan/goals of care, Pt will be free from complications r/t seizure activity, Pt will be seizure controlled Interventions, Neurological Assess/monitor neurologic status, Assess/monitor VS per unit standards & prn, Monitor for headaches, nausea, vomiting, Physical assessment per unit standards Goals/Interventions, Neurological Yes Neurological, Problem Start 09/23/2022 0:37 Reviewed plan with, Neurological Patient Patient Progression, Neurological Pt progressing according to plan . Alteration in Safety : Alteration in Safety/new 09/26/2022 20:00 EST Alteration in Safety Related to Other: frequent falls Goals & Outcomes, Safety Psychosocial support will be provided to Pt/S.O. as needed, Pt/caregiver will state understanding of plan/goals of care, Pt will remain safe & injury free, Pt/caregiver will be offered appropriate resources & support Interventions, Safety Provide info on community resources for education, support, Provide teaching as needed Goals/Interventions, Safety Yes Safety, Problem Start 09/25/2022 10:46 Reviewed plan with, Safety Patient Patient Progression, Safety Pt progressing according to plan . Nursing Data Vital Signs : VITAL SIGNS SECTION 09/26/2022 20:00 EST Temperature 99.0 DegF Temperature Route Oral Pulse Rate 86 bpm Respiratory Rate 18 br/min Systolic Blood Pressure 150 mm Hg H Diastolic Blood Pressure 83 mm Hg Blood pressure sites Arm, left Pulse Pressure 67 mm Hg Oxygen Saturation 100 % Mode of Delivery (Oxygen) Room air . Evaluation (Pt A&Ox4. VSS. Denies any pain. CIWA scoring 0. Sutures intact to scalp with scant serosang drainage. SR with 1st degree block on telemetry. LS clear on RA. Frequent safety rounding in place, see CIS for full assessment. ) Daija Luther RN: VERIFY, PERFORM, SIGN Event Display: Progress Note Hospital Authored Date: Patient: MARYLIN WALDEN Age: 62 years Sex: Male : 1960 Associated Diagnoses: None Author: Daija Luther RN Findings Evaluation (Patient A+Ox4. Denies pain currently. Tele monitor shows SR first degree AVB. Lungs clear,+BS, VERA. Tolerated IV venofer infusion well. Mg level 1.1 today, 2gm replced per orders. Tolerating diet well. Patient feeling weak. Ble to move himself in bed well. Will continue to monitor.) CT Cervical spine WO contrast [facility] , CIS S: TRANSCRIBE Mango SYLVESTER, Eduin Angeles: VERIFY Event Display: Result: Authored Date: CT Head/Brain W/O Contrast, CT Cervical Spine W/O Contrast INDICATION: Reason: Trauma; unwitnessed fall with head strike, to evaluate for any intracranial bleeding.; Clinical Question(s): Hematoma; Order Comment: TECHNIQUE: Noncontrast head CT using axial technique was reconstructed in axial and coronal planes. Noncontrast spiral CT through the cervical spine was formatted in 3 planes. Automatic tube modulationwas used for the cervical spine and iterative dose reconstruction was used for both the head and cervical spine to optimize scan parameters and image quality. CTDIvol Body: 19.10 mGy, DLP Body: 456 mGy*cm. CTDIvol Head: 45.50 mGy, DLP Head: 772 mGy*cm. COMPARISON: Prior CT of the head and cervical spine dated September 21, 2022. FINDINGS: News Reporter View Findings, Lines and Tubes: None. BRAIN AND EXTRA-AXIAL SPACES: No parenchymal hemorrhage, midline shift, or mass effect. Parekh-white matter differentiation is well preserved. No acute infarct. Negative insular ribbon sign. Atherosclerotic vascular calcification of the carotid arteries but negative hyperdense vessel sign. Mild prominence of the ventricles and sulci consistent with parenchymal volume loss. Mild low-density white matter changes. No subarachnoid hemorrhage. There is a new hyperdense extra-axial hematoma in the right posterior parietal region underlying the soft tissue contusion, measuring up to 8 mm in greatest thickness (series 2 image image 87, series 204 image 43). Mildly prominent left extra-axial spaces, more likely involutional changes than chronic hygroma. CALVARIUM, SKULL BASE, AND SOFT TISSUES: No fractures or suspicious bony lesions. The paranasal sinuses and mastoid air cells are clear. Visualized orbits and globes are intact. Similar soft tissue contusion in the right parietal region and diffuse posterior scalp edema. CERVICAL SPINE: No fracture. No acute osseous abnormalities. Normal alignment. No locked or perched facet. Mild multilevel degenerative disc space narrowing and end plate irregularity. OTHER BONES: No acute abnormality. CERVICAL SOFT TISSUES AND LUNG APICES: Heterogeneous enlargement of the right thyroid nodule measuring up to 3.5 cm. Visualized lung apicesare clear. IMPRESSION: 1. New 8 mm hyperdense extra-axial hematoma overlying the right parietal lobe, likely a small subdural hematoma. 2. No acute cervical spinal abnormality. 3. 3.5 cm right-sided thyroid nodule for which dedicated ultrasound is recommended on a nonemergent basis according to current national guidelines. The impression above was relayed to Krish Aguilar by Dr. Eduin Cobian over the phone on 09/23/2022 at 10:55 AM. WSN: [id number] Ordering Physician: Krish Aguilar Dictated By: Eduin Cobian MD Dictated Date/Time: 09/23/22 10:57 a Reviewed By: Eduin Cobian MD Signed By: Eduin Cobian MD Signed Date/Time: 09/23/22 10:57 am Transcribed By: IDALIA Transcribed Date/Time: 09/23/22 10:49 Martin , EKATERINA S: TRANSCRIStan Ansari MD W: VERIFY Lyubov Sanderson DO F: SIGN Event Display: Result: Authored Date: [id number] CT Head/Brain W/O Contrast, CT Cervical Spine W/O Contrast INDICATION: Head trauma, mod-severe; Clinical Question(s): Hematoma TECHNIQUE: Noncontrast head CT using axial technique was reconstructed in axial and coronal planes. Noncontrast spiral CT through the cervical spine was formatted in 3 planes. Automatic tube modulationwas used for the cervical spine and iterative dose reconstruction was used for both the head and cervical spine to optimize scan parameters and image quality. CTDIvol Body: 17.80 mGy, DLP Body: 412 mGy*cm. CTDIvol Head: 39.90 mGy, DLP Head: 671 mGy*cm. COMPARISON: None. FINDINGS: News Reporter View Findings, Lines and Tubes: None. BRAIN AND EXTRA-AXIAL SPACES: There is a moderate subgaleal hematoma extending from the right posterior occipital lobe partially to the left, measuring 6.0 x 1.0 cm. No parenchymal hemorrhage, midline shift, or mass effect. Parekh-white matter differentiation is well preserved. No acute infarct. Negative insular ribbon sign. Atherosclerotic vascular calcification of the carotid arteries but negative hyperdense vessel sign. Mild prominence of the ventricles and sulci consistent with parenchymal volume loss. Mild low-density white matter changes. No subarachnoid hemorrhage. No subdural or epidural collection. CALVARIUM, SKULL BASE, AND SOFT TISSUES: No fractures or suspicious bony lesions. Mild mucosal thickening in the right maxillary sinus. Other visualized paranasal sinuses and mastoidair cells are clear. Visualized orbits and globes are intact. The extracranial soft tissues are unremarkable. CERVICAL SPINE: No fracture. No acute osseous abnormalities. Normal alignment. No locked or perched facet. Moderate multilevel degenerative disc space narrowing and end plate irregularity. OTHER BONES: No acute abnormality. CERVICAL SOFT TISSUES AND LUNG APICES: Visualized lung apices are clear. Right thyroid gland nodule measuring 3.6 cm. IMPRESSION: 1. Moderate subgaleal hematoma in the occipital region. 2. No acute intracranial abnormality. No acute cervical spine abnormality. I have personally reviewed the images and I agree with this report. WSN: [id number] Ordering Physician: Nayely Brewer Dictated By: Lyubov Sanderson DO Dictated Date/Time: 09/21/22 1:45 pm Reviewed By: Stan Lomas MD Signed By: Stan Lomas MD Signed Date/Time: 09/21/22 1:50 pm Transcribed By: IDALIA Transcribed Date/Time: 09/21/22 1:[address] Head WO contrast [facility] , CIS S: TRANSCRIBE Eduin Cobian MD: VERIFY Event Display: Result: Authored Date: [id number] CT Head/Brain W/O Contrast, CT Cervical Spine W/O Contrast INDICATION: Reason: Trauma; unwitnessed fall with head strike, to evaluate for any intracranial bleeding.; Clinical Question(s): Hematoma; Order Comment: TECHNIQUE: Noncontrast head CT using axial technique was reconstructed in axial and coronal planes. Noncontrast spiral CT through the cervical spine was formatted in 3 planes. Automatic tube modulationwas used for the cervical spine and iterative dose reconstruction was used for both the head and cervical spine to optimize scan parameters and image quality. CTDIvol Body: 19.10 mGy, DLP Body: 456 mGy*cm. CTDIvol Head: 45.50 mGy, DLP Head: 772 mGy*cm. COMPARISON: Prior CT of the head and cervical spine dated September 21, 2022. FINDINGS: News Reporter View Findings, Lines and Tubes: None. BRAIN AND EXTRA-AXIAL SPACES: No parenchymal hemorrhage, midline shift, or mass effect. Parekh-white matter differentiation is well preserved. No acute infarct. Negative insular ribbon sign. Atherosclerotic vascular calcification of the carotid arteries but negative hyperdense vessel sign. Mild prominence of the ventricles and sulci consistent with parenchymal volume loss. Mild low-density white matter changes. No subarachnoid hemorrhage. There is a new hyperdense extra-axial hematoma in the right posterior parietal region underlying the soft tissue contusion, measuring up to 8 mm in greatest thickness (series 2 image image 87, series 204 image 43). Mildly prominent left extra-axial spaces, more likely involutional changes than chronic hygroma. CALVARIUM, SKULL BASE, AND SOFT TISSUES: No fractures or suspicious bony lesions. The paranasal sinuses and mastoid air cells are clear. Visualized orbits and globes are intact. Similar soft tissue contusion in the right parietal region and diffuse posterior scalp edema. CERVICAL SPINE: No fracture. No acute osseous abnormalities. Normal alignment. No locked or perched facet. Mild multilevel degenerative disc space narrowing and end plate irregularity. OTHER BONES: No acute abnormality. CERVICAL SOFT TISSUES AND LUNG APICES: Heterogeneous enlargement of the right thyroid nodule measuring up to 3.5 cm. Visualized lung apicesare clear. IMPRESSION: 1. New 8 mm hyperdense extra-axial hematoma overlying the right parietal lobe, likely a small subdural hematoma. 2. No acute cervical spinal abnormality. 3. 3.5 cm right-sided thyroid nodule for which dedicated ultrasound is recommended on a nonemergent basis according to current national guidelines. The impression above was relayed to Krish Aguilar by Dr. Eduin Cobian over the phone on 09/23/2022 at 10:55 AM. WSN: [id number] Ordering Physician: Krish Aguilar Dictated By: Eduin Cobian MD Dictated Date/Time: 09/23/22 10:57 a Reviewed By: Eduin Cobian MD Signed By: Eduin Cobian MD Signed Date/Time: 09/23/22 10:57 am Transcribed By: IDALIA Transcribed Date/Time: 09/23/22 10:49 DexPotimsctereza , EKATERINA S: TRANSCRIZEFERINO Lomas MD, Stan W: VERIFY Lyubov Sanderson DO F: SIGN Event Display: Result: Authored Date: [id number] CT Head/Brain W/O Contrast, CT Cervical Spine W/O Contrast INDICATION: Head trauma, mod-severe; Clinical Question(s): Hematoma TECHNIQUE: Noncontrast head CT using axial technique was reconstructed in axial and coronal planes. Noncontrast spiral CT through the cervical spine was formatted in 3 planes. Automatic tube modulationwas used for the cervical spine and iterative dose reconstruction was used for both the head and cervical spine to optimize scan parameters and image quality. CTDIvol Body: 17.80 mGy, DLP Body: 412 mGy*cm. CTDIvol Head: 39.90 mGy, DLP Head: 671 mGy*cm. COMPARISON: None. FINDINGS: News Reporter View Findings, Lines and Tubes: None. BRAIN AND EXTRA-AXIAL SPACES: There is a moderate subgaleal hematoma extending from the right posterior occipital lobe partially to the left, measuring 6.0 x 1.0 cm. No parenchymal hemorrhage, midline shift, or mass effect. Parekh-white matter differentiation is well preserved. No acute infarct. Negative insular ribbon sign. Atherosclerotic vascular calcification of the carotid arteries but negative hyperdense vessel sign. Mild prominence of the ventricles and sulci consistent with parenchymal volume loss. Mild low-density white matter changes. No subarachnoid hemorrhage. No subdural or epidural collection. CALVARIUM, SKULL BASE, AND SOFT TISSUES: No fractures or suspicious bony lesions. Mild mucosal thickening in the right maxillary sinus. Other visualized paranasal sinuses and mastoidair cells are clear. Visualized orbits and globes are intact. The extracranial soft tissues are unremarkable. CERVICAL SPINE: No fracture. No acute osseous abnormalities. Normal alignment. No locked or perched facet. Moderate multilevel degenerative disc space narrowing and end plate irregularity. OTHER BONES: No acute abnormality. CERVICAL SOFT TISSUES AND LUNG APICES: Visualized lung apices are clear. Right thyroid gland nodule measuring 3.6 cm. IMPRESSION: 1. Moderate subgaleal hematoma in the occipital region. 2. No acute intracranial abnormality. No acute cervical spine abnormality. I have personally reviewed the images and I agree with this report. WSN: [id number] Ordering Physician: Nayely Brewer Dictated By: Lyubov Sanderson DO Dictated Date/Time: 09/21/22 1:45 pm Reviewed By: Stan Lomas MD Signed By: Stan Lomas MD Signed Date/Time: 09/21/22 1:50 pm Transcribed By: IDALIA Transcribed Date/Time: 09/21/22 1:31 pm Portable XR Chest Views [facility] , CIS S: TRANSCRIBE Kate Black MD: VERIFY Event Display: Result: Authored Date: [id number] Chest Portable performed supine at 12:50 PM Reason: Other:; Pain; Clinical Question(s): Other:; Fracture, pneumothorax, pulmonary contusion COMPARISON: None. FINDINGS: LINES AND TUBES: None. LUNGS AND PLEURA: There are low lung volumes with patchy bibasilar densities, which may reflect atelectasis or contusion. No pleural effusion. No pneumothorax. HEART, MEDIASTINUM AND BISMARK: Heart is normal in size. Normal mediastinal and hilar contour. BONES AND SOFT TISSUES: No acute abnormality. IMPRESSION: Low lung volumes with patchy bibasilar densities, which may reflect atelectasis or contusion. WSN: [id number] Ordering Physician: Nayely Brewer Dictated By: Kate Black MD Dictated Date/Time: 09/21/22 1:13 pm Reviewed By: Kate Black MD Signed By: Kate Black MD Signed Date/Time: 09/21/22 1:13 pm Transcribed By: IDALIA Transcribed Date/Time: 09/21/22 1:[address] Abdomen and Pelvis W contrast IV SPEKATERINA sherman S: KENDELL Lomas MD, Stan W: VERIFY Event Display: Result: Authored Date: [id number] CT Chest W/ Contrast, CT Abd/Pelvis W/ IV Contrast Only INDICATION: Reason: Other:; Chest trauma, blunt; Clinical Question(s): Other:; Aortic hilar injury TECHNIQUE: Helical CT scan of the chest, abdomen, and pelvis with IV contrast, formatted in 3 planes. 100 cc of Omnipaque 300 was administered intravenously. This study was performed without oral contrast. Weight-based protocol was performed using automatic exposure control. CTDIvol Body: 19.20 mGy, DLP Body: 1333 mGy*cm. COMPARISON: None. FINDINGS: News Reporter view findings, lines and tubes: None. Trachea and airways: Patent without evidence of tracheal or endobronchial lesion. Lungs and pleura: Limited evaluation for small pulmonary nodules due to respiratory motion artifact.No effusion or pneumothorax. Mediastinum and bismark: No mass or hematoma. No mediastinal or hilar lymphadenopathy. No esophageal abnormality. 3.7 cm heterogeneous right thyroid nodule. Heart: Mild cardiomegaly. No pericardial effusion. Moderate coronary artery calcification. Aorta: No aortic aneurysm. Pulmonary arteries: Normal caliber. No evidence of pulmonary embolism on this study performed without angiographic technique. Chest wall soft tissues: Gynecomastia. No hematoma. Diaphragm: Intact. Liver: Fatty liver. No laceration. Gallbladder: No CT evidence of gallbladder pathology. Bile ducts: No biliary ductal dilation. Spleen: Splenomegaly measuring up to 15 cm in AP dimension. No laceration. Pancreas: No suspicious lesion or ductal dilatation. Adrenal glands: No nodule. Kidneys and ureters: Right kidney is unremarkable. 2.3 cm left upper pole lesion, indeterminate by Hounsfield units, likely proteinaceous or hemorrhagic cyst. Indeterminate mass arising from the lower pole the left kidney measuring up to 2.8 cm. Bladder: Thick walled but underdistended. Reproductive organs: Unremarkable. Stomach, small bowel, and large bowel: Scattered colonic diverticula without diverticulitis. The colon is decompressed. No small bowel obstruction. Appendix: Not seen, but no evidence of acute appendicitis. Peritoneum and retroperitoneum: No ascites or pneumoperitoneum. No omental or mesenteric lesions. Lymph nodes: Multiple shotty retroperitoneal lymph nodes. Multiple tiny mesenteric lymph nodes with mild stranding of the central mesentery. Aortocaval lymph node measuring up to 1.6 cm in short axis, series 201 image 91. Multiple small inguinal lymph nodes not enlarged by size criteria. Additional upper abdominal lymph nodes for example along the celiac access measuring up to 12 mm in short axis on series 2 on image 74. Blood vessels: Mild vascular calcifications but no aneurysm. No evidence of venous thrombosis. Abdominal and pelvic wall soft tissues: No acute abnormality. Soft tissue prominence in the left perineum as seen on series 201 image 207. Bones: Multiple tiny bone islands noted in the femoral heads bilaterally. No pelvic fracture. Vertebral body heights are maintained. IMPRESSION: 1. No acute abnormality. 2. 2.8 cm indeterminate left lower pole renal lesion concerning for malignancy. Indeterminate left upper pole renal lesion likely hemorrhagic or proteinaceous cyst. Renal mass protocol MRI is recommended if not ordered and performed elsewhere for further evaluation. Ultimately histopathologic correlation of the left lower pole lesion may be necessary. 3. Fatty liver and mild splenomegaly. This likely reflects chronic hepatocellular disease. Mildly prominent bao hepatis lymph nodes, likely reactive. 4. Heterogeneous 3.7 cm right thyroid nodule. Follow-up thyroid ultrasound is recommended if not performed elsewhere. 5. Soft tissue prominence along the left perineum at the anal verge, indeterminate. This could reflect external hemorrhoids or soft tissue mass. Clinical correlation is recommended A critical result message (Mclean) has been communicated via the [employer] system on 09/21/2022 1:25 PM, Message ID [id number]. WSN: [id number] Ordering Physician: Nayely Brewer Dictated By: Stan Lomas MD Dictated Date/Time: 09/21/22 1:30 pm Reviewed By: Stan Lomas MD Signed By: Stan Lomas MD Signed Date/Time: 09/21/22 1:30 pm Transcribed By: IDALIA Transcribed Date/Time: 09/21/22 1:[address] Chest W contrast IV BHSPowerscribe , EKATERINA S: TRANSCRIBE Stan Lomas MD: VERIFY Event Display: Result: Authored Date: [id number] CT Chest W/ Contrast, CT Abd/Pelvis W/ IV Contrast Only INDICATION: Reason: Other:; Chest trauma, blunt; Clinical Question(s): Other:; Aortic hilar injury TECHNIQUE: Helical CT scan of the chest, abdomen, and pelvis with IV contrast, formatted in 3 planes. 100 cc of Omnipaque 300 was administered intravenously. This study was performed without oral contrast. Weight-based protocol was performed using automatic exposure control. CTDIvol Body: 19.20 mGy, DLP Body: 1333 mGy*cm. COMPARISON: None. FINDINGS: News Reporter view findings, lines and tubes: None. Trachea and airways: Patent without evidence of tracheal or endobronchial lesion. Lungs and pleura: Limited evaluation for small pulmonary nodules due to respiratory motion artifact.No effusion or pneumothorax. Mediastinum and bismark: No mass or hematoma. No mediastinal or hilar lymphadenopathy. No esophageal abnormality. 3.7 cm heterogeneous right thyroid nodule. Heart: Mild cardiomegaly. No pericardial effusion. Moderate coronary artery calcification. Aorta: No aortic aneurysm. Pulmonary arteries: Normal caliber. No evidence of pulmonary embolism on this study performed without angiographic technique. Chest wall soft tissues: Gynecomastia. No hematoma. Diaphragm: Intact. Liver: Fatty liver. No laceration. Gallbladder: No CT evidence of gallbladder pathology. Bile ducts: No biliary ductal dilation. Spleen: Splenomegaly measuring up to 15 cm in AP dimension. No laceration. Pancreas: No suspicious lesion or ductal dilatation. Adrenal glands: No nodule. Kidneys and ureters: Right kidney is unremarkable. 2.3 cm left upper pole lesion, indeterminate by Hounsfield units, likely proteinaceous or hemorrhagic cyst. Indeterminate mass arising from the lower pole the left kidney measuring up to 2.8 cm. Bladder: Thick walled but underdistended. Reproductive organs: Unremarkable. Stomach, small bowel, and large bowel: Scattered colonic diverticula without diverticulitis. The colon is decompressed. No small bowel obstruction. Appendix: Not seen, but no evidence of acute appendicitis. Peritoneum and retroperitoneum: No ascites or pneumoperitoneum. No omental or mesenteric lesions. Lymph nodes: Multiple shotty retroperitoneal lymph nodes. Multiple tiny mesenteric lymph nodes with mild stranding of the central mesentery. Aortocaval lymph node measuring up to 1.6 cm in short axis, series 201 image 91. Multiple small inguinal lymph nodes not enlarged by size criteria. Additional upper abdominal lymph nodes for example along the celiac access measuring up to 12 mm in short axis on series 2 on image 74. Blood vessels: Mild vascular calcifications but no aneurysm. No evidence of venous thrombosis. Abdominal and pelvic wall soft tissues: No acute abnormality. Soft tissue prominence in the left perineum as seen on series 201 image 207. Bones: Multiple tiny bone islands noted in the femoral heads bilaterally. No pelvic fracture. Vertebral body heights are maintained. IMPRESSION: 1. No acute abnormality. 2. 2.8 cm indeterminate left lower pole renal lesion concerning for malignancy. Indeterminate left upper pole renal lesion likely hemorrhagic or proteinaceous cyst. Renal mass protocol MRI is recommended if not ordered and performed elsewhere for further evaluation. Ultimately histopathologic correlation of the left lower pole lesion may be necessary. 3. Fatty liver and mild splenomegaly. This likely reflects chronic hepatocellular disease. Mildly prominent bao hepatis lymph nodes, likely reactive. 4. Heterogeneous 3.7 cm right thyroid nodule. Follow-up thyroid ultrasound is recommended if not performed elsewhere. 5. Soft tissue prominence along the left perineum at the anal verge, indeterminate. This could reflect external hemorrhoids or soft tissue mass. Clinical correlation is recommended A critical result message (Mclean) has been communicated via the [employer] system on 09/21/2022 1:25 PM, Message ID [id number]. WSN: [id number] Ordering Physician: Nayely Brewer Dictated By: Stan Lomas MD Dictated Date/Time: 09/21/22 1:30 pm Reviewed By: Stan Lomas MD Signed By: Stan Lomas MD Signed Date/Time: 09/21/22 1:30 pm Transcribed By: IDALIA Transcribed Date/Time: 09/21/22 1:15 pm Patient Care team information Care Team PersonnelName: Stephanie TELLEZ, Sophy Position: [facility] RN Member Role: Primary Care Nurse Name: Jaclyn Fox NP Position: [facility] Associate Professional Member Role: Primary Care Nurse Address: Address: [address] [place] [id number]- Name: Tony Kennedy MD Position: [facility] Renal MD Member Role: Lifetime Consulting Physician Address: Address: [address] [place] [address], [address] [facility] [place] [address]- [place] Name: Omar Miguel RN Position: [facility] ED RN W/OE and Tasks Member Role: Primary Care Nurse Name: Romelia Simmons RN Position: [facility] RN Member Role: Primary Care Nurse Name: Nikky Sutherland RN Position: [facility] RN Member Role: Primary Care Nurse Name: Yevgeniy Murrell RN Position: [facility] RN Member Role: Primary Care Nurse Name: Not on Staff, PCP Position: [facility] Physician (General Medicine) Member Role: PCP Name: Gabby Blank RN Position: [facility] PCO RN Member Role: Primary Care Nurse Name: Vito Michaud MD Position: [facility] Renal MD Member Role: Lifetime Consulting Physician Address: Address: [address] [place] [address] [facility] [address] Name: Matias Banks RN Position: [facility] RN Supv Member Role: Primary Care Nurse Name: Viktoriya Velazquez RN Position: [facility] SN RN Member Role: Primary Care Nurse Name: Marcella Armando RN Position: [facility] RN Member Role: Primary Care Nurse Name: *[facility], Trauma Attending Position: [facility] ED Attendings Patient Name: *[facility], Trauma Resident Position: [facility] ED Medicine MD Name: Destiny Momin Position: [facility] ED RN W/OE and Tasks Member Role: Patient Care Provider Name: Shanae Hayward Position: [facility] ED OA Charge Member Role: ED Associate Name: Diane Guzman Position: [facility] ED TA [facility] Member Role: Call Centre Supervisor Care Team Related PersonsName: JUANITA TODD Address: [address] [address]
--- NOTE | 2022-10-02 19:00 | MHC.EDTECH ---
Call out to [facility] transfer line @[phone] spoke to Juana
[2022-10-02 19:24] LABS: MANUAL DIFF FLAG NO
[2022-10-02 19:26] LABS: Basophils Absolute Auto 0.1 X10*3/uL (0.0-0.2); Basophils Percent Auto 1.3 % (0-2); Eosinophils Absolute Auto 0.2 X10*3/uL (0.0-0.4); Eosinophils Percent Auto 1.8 % (0-4); Hematocrit 28.5 % (42.0-52.0); Imm Gran Abs Auto 0.05 X10*3/uL (0.00-0.03); Imm Gran Pct Auto 0.5 % (0.0-0.4); Lymphocytes Absolute Auto 2.5 X10*3/uL (1.2-4.9); Lymphocytes Percent Auto 24.4 % (20-40); Mean Corpuscular HGB Conc 31.6 g/dl (31.0-36.0); Mean Corpuscular Hemoglobin 27.2 pg (27.0-33.0); Mean Corpuscular Volume 86.1 fL (80.0-98.0); Mean Platelet Volume 8.3 fL (9.4-12.4); Monocytes Absolute Auto 0.6 X10*3/uL (0.1-1.2); Monocytes Percent Auto 5.5 % (2-11); Neutrophils Absolute Auto 6.9 x10*3/uL (2.0-8.3); Neutrophils Percent Auto 66.5 % (45-73); Platelet Count 333 X10*3/uL (160-400); Red Blood Count 3.31 X10*6/uL (4.60-5.80); Red Cell Distribution Width 18.6 % (11.0-16.0); White Blood Count 10.4 X10*3/uL (4.8-10.8)
[2022-10-02 19:43] LABS: COVID-19 Test Negative (Negative); IDNOW Serial# BCCEAD1C
[2022-10-02 20:04] LABS: INTERNATIONAL NORM RATIO 1.1 (0.9-1.1); Prothrombin Time 12.4 SEC (10.0-13.1)
[2022-10-02 20:07] LABS: Ammonia 59 umol/L (13-55)
[2022-10-02 20:32] LABS: Alanine Aminotransferase 24 U/L (0-40); Albumin Level 3.6 g/dL (3.5-5.0); Alkaline Phosphatase 133 U/L (39-117); Anion Gap 17 (12-20); Aspartate Amino Transferase 34 U/L (5-37); Bilirubin Total 0.5 mg/dL (0.0-1.0); Blood Urea Nitrogen 13 mg/dL (9-16); Calcium 8.4 mg/dL (8.4-10.2); Carbon Dioxide 21 mmol/L (22-29); Chloride 107 mmol/L (96-108); Creatinine Clr Calc Pharmacy 84.1; Estimated Glomerular Filt Rate > 60; Glucose Random 97 mg/dL (60-115); Magnesium 1.9 mg/dL (1.6-2.6); Potassium 4.6 mmol/L (3.3-5.1); Sodium 140 mmol/L (135-145); Total Protein 6.2 g/dL (6.5-8.0)
[2022-10-02 20:33] LABS: Acetaminophen LAB < 17 mcg/mL (<30); Salicylate < 5.0 mg/dL (15-30)
== END 2022-10-02 20:06 | disposition short-term general hospital (02) ==
PROVIDERS: Physician Assistant; Emergency Provider Emergency Medicine; PCP Family Medicine
DX: S00.03XA Contusion of scalp, initial encounter (principal); S06.89AA Other specified intracranial injury with loss of consciousness status unknown, initial encounter; R51.9 Headache, unspecified; M54.2 Cervicalgia; F10.129 Alcohol abuse with intoxication, unspecified; G89.29 Other chronic pain; M54.6 Pain in thoracic spine; R10.9 Unspecified abdominal pain; Y90.9 Presence of alcohol in blood, level not specified; W01.0XXA Fall on same level from slipping, tripping and stumbling without subsequent striking against object, initial encounter; Y93.9 Activity, unspecified; Y92.9 Unspecified place or not applicable; Y99.9 Unspecified external cause status; Z20.828 Contact with and (suspected) exposure to other viral communicable diseases; Z20.822 Contact with and (suspected) exposure to COVID-19; Z79.899 Other long term (current) drug therapy
CPT/HCPCS: 36415; 70450; 71260; 72125; 74177; 80053; 80143; 80179; 82140; 83735; 85025; 85610; 87635; 93005; 99285; Q9967

== ENCOUNTER 2022-10-30 03:40 | Inpatient (IN) | payer MEDICAID, SELFPAY ==
[2022-10-30] VITALS (10 sets, daily range): BP systolic 118–168; BP diastolic 60–82; PULSE 81–107; RESP 14–20; TEMP 36.5–36.7; O2SAT 93–100; BMI 37.3
--- NOTE | ~2022-10-30 | CT_ITS ---
EXAMINATION: NONCONTRAST HEAD CT NONCONTRAST CERVICAL SPINE CT INDICATION INFORMATION: Fall COMPARISON: 10/02/2022 07/28/2022 TECHNIQUE: Separate noncontrast CT examinations of the head and cervical spine were performed. Coronal and sagittal images were created for each examination at the technologist workstation. This CT examination was performed using dose optimization techniques as appropriate, variously including the following: *Automated exposure control *Adjustment of mA and/or kV according to patient size (this includes techniques or standardized protocols for targeted exams where dose is matched to indication/reason for exam; i.e. extremities or head) *Use of iterative reconstruction technique DLP: 1287 mGy-cm FINDINGS: Head: There is no evidence of acute intracranial hemorrhage or territorial infarction. Previously seen bilateral convexity subdural hematomas have resolved/resorbed. No abnormal mass effect or midline shift is seen. Parekh to white matter differentiation is well preserved. No extra-axial fluid collections are identified. No hydrocephalus. Proportional prominence of the ventricles and sulcal spaces is consistent with mild volume loss. Patchy periventricular and deep white matter hypoattenuation is consistent with mild small vessel ischemic changes. There is right posterior parasagittal parietal calvarial subgaleal hematoma and associated scalp laceration. The mastoid air cells are clear. Minimal mucosal thickening in the right maxillary sinus. Cervical spine: There is anatomic alignment of the vertebral bodies and posterior elements. The atlantoaxial and atlantooccipital articulations are intact. Vertebral body heights maintained. Endplate osteophytes and loss of disc space height at C5-C6 and C6-C7. No evidence of acute fracture. No prevertebral soft tissue swelling. Visualized portions of the lung apices are unremarkable. Stable asymmetric prominence of the right thyroid gland, without discrete nodule identified. CT/CT cervical spine wo IV con IMPRESSION: * No acute intracranial findings. * No acute fracture or malalignment of the cervical spine. * Right posterior parasagittal parietal calvarial subgaleal hematoma and associated scalp laceration. This is in the same location as the prior laceration, and it is unclear which components of this are acute or residual from previous trauma.
--- NOTE | 2022-10-30 04:21 | ECG_ITS ---
Test Reason : FALL Blood Pressure : / mmHG Vent. Rate : 084 BPM Atrial Rate : 084 BPM P-R Int : 192 ms QRS Dur : 122 ms QT Int : 514 ms P-R-T Axes : 049 -46 089 degrees QTc Int : 607 ms Normal sinus rhythm Left anterior fascicular block Nonspecific T wave abnormality Abnormal ECG When compared with ECG of 02-OCT-2022 18:16, VT interval has decreased QT has lengthened Referred By: Dorcas Rhoades Electronically Signed By:Mike Nguyen
--- NOTE | 2022-10-30 04:30 | ED.FALL ---
HPI - Fall General Chief Complaint: Fall Stated Complaint: Fall Time Seen by Provider: 10/30/22 04:20 Source: patient and EMS Mode of arrival: EMS Limitations: no limitations History of Present Illness HPI Narrative: Patient comes to the emergency room complaining of a fall after sitting up and trying to put his slippers on. Patient states that he lost his balance, fell backwards and hit his head. Patient states he did not lose consciousness. Patient has a laceration in the back of the head. Patient states he has fallen several times and the old injury from less than a month reopened. Patient denies any headache. Patient states that he has been having diarrhea for almost 4 days now. Patient has been drinking fluids but no solid meals. Patient denies vomiting fever or chills, no abdominal pain. Patient is chest pain or shortness of breath. Related Data Home Medications Medication Instructions Recorded Confirmed cyanocobalamin (vitamin B-12) 1,000 mcg PO DAILY 10/02/22 10/02/22 1,000 mcg tablet (Vitamin B-12) ferrous sulfate 325 mg (65 mg 325 mg PO DAILY 10/02/22 10/02/22 iron) tablet folic acid 1 mg tablet 1 mg PO DAILY 10/02/22 10/02/22 thiamine HCl (vitamin B1) 100 mg 100 mg PO DAILY 10/02/22 10/02/22 tablet (Vitamin B-1) Allergies Allergy/AdvReac Type Severity Reaction Status Date / Time azithromycin [AZITHROMYCIN] Allergy Severe FACIAL Verified 11/30/21 09:19 SWELLING hydrochlorothiazide [HCTZ] Allergy Severe Facial Verified 04/13/22 12:11 Swelling Review of Systems Review of Systems: Constitutional : No Weight loss, No Fever, No Chills, No Night Sweats, No Fatigue, No Malaise ENT/Mouth : No Hearing loss, No Ear Pain, No Nasal Congestion, No Sinus Pain, No Hoarseness, No sore throat, No Rhinorrhea, No Swallowing Difficulty Eyes: No Eye Pain, No Swelling, No Redness, No Foreign Body, No Discharge, No Vision Changes Cardiovascular : No Chest Pain, No SOB, No Dyspnea on Exertion, No Orthopnea, No Edema, No Palpitations Respiratory : No Cough, No Sputum, No Wheezing, No Smoke Exposure, No Dyspnea Gastrointestinal : No Nausea, No Vomiting, complaining of copious Diarrhea, No Constipation, No abdominal Pain, No Hematochezia, No Melena Genitourinary : no irregular bleeding, No Dysuria, No Urinary Frequency, No Hematuria, No Urinary Incontinence, No Urgency, No Flank Pain, No Urinary Flow Changes, No Hesitancy Musculoskeletal : No joint pain, No Myalgias, No Joint Swelling Skin : Complaining of a laceration to the back of the head, complaining of skin laceration to the buttocks due to diarrhea Neuro : No Weakness, No Numbness, No Paresthesias, No Loss of Consciousness, No Dizziness, No Headache Psych : No Anxiety/Panic, No Depression, No SI/HI/AH/VH, No Social Issues, Heme/Lymph: No Bruising, No Bleeding,No Lymphadenopathy Endocrine : No Polyuria, No Polydipsia, No Temperature Intolerance PMFSH Past Medical History Medical History Alcoholic steatohepatitis Anemia Anemia Ascending aortic aneurysm Chronic ulcer of leg Chronic venous stasis History of DVT of lower extremity History of rhabdomyolysis HTN (hypertension) Hx of lower gastrointestinal bleeding Hx of sepsis Hyperlipidemia DEBORAH (obstructive sleep apnea) Seborrheic dermatitis Surgical History Hx of colonoscopy Family History Family History Mother Dementia Maternal Grandmother Dementia Social History Social History Household Members: Family Housing: Apartment Do you presently have visiting nurse or other home services: No Alcohol intake: current Alcohol intake frequency: 3 or more drinks per day Alcohol type: beer Patient Tobacco Use Status: Never used Tobacco Advance Directives: Yes Advance Directives on File: Yes Advance Directives Date on File: 04/13/22 service: No Current occupational status: disabled Physical Exam Vital Signs: Vital Signs: Last Vital Signs Temp 98.1 F 10/30/22 06:13 Pulse 85 10/30/22 06:13 Resp 14 10/30/22 06:13 BP 130/67 10/30/22 06:13 Pulse Ox 100 10/30/22 06:13 O2 Del Method 10/30/22 06:13 BMI result Body Mass Index 37.3 Const: Other: Appearance: Alert. Oriented X3. No acute distress. Patient was disheveled, covered in diarrhea from the chest to the toes Eyes: Pupils equal, round and reactive to light. ENT: Pharynx normal. Neck: Normal inspection. Neck supple. No lymph nodes noted. No crepitus CVS: Normal heart rate and rhythm. Pulses normal. Normal S1 and S2 Respiratory: No respiratory distress. Breath sounds normal. No Wheezing. No rales Abdomen: Soft and nontender. No rigidity. No distention. Skin: Skin warm and dry. Normal skin color. Normal skin turgor. , there is a laceration in the scalp, there is a stage II ulcer in the buttocks bilaterally Extremities: No lower extremity edema. No Lacerations. No Rash Neuro: Oriented X 3. No motor deficit. No sensory deficit. Moving all extremities. No slurred speech. CN 2 through 12 grossly intact Psych: calm, cooperative, normal affect Course Course Course Narrative: -all of patient's labs and imaging pending. -patient likely had a vasovagal near syncope versus mechanical fall -patient seems dehydrated -patient receiving IV fluids and loperamide -patient has fallen 6 times. We spoke with the patient's sister who said that patient falls continuously. Patient states that he has been having oozing from his scalp and it has been open since October 02 when he was diagnosed with a brain bleed and transferred to [facility]. Patient has lencho in his head still from that date. Patient states he was not aware that the lencho need to be removed. Patient states that either way the wound has been losing it open for weeks now. This wound will have to be closed by secondary intention. There was not enough tissue to close the wound and the tissue is very friable. Also, given the amount of time that has passed, lencho or sutures are not indicated. -is possible that patient may need debridement. -I discussed the patient with Dr. Green, pt being admitted Medications Administered Generic Name Dose Route Start Last Admin Trade Name Freq PRN Reason Stop Dose Admin Magnesium Sulfate 2 gm in 50 mls @ 25 mls/hr 10/30/22 06:04 10/30/22 06:19 Magnesium Sulfate/H2o IV 10/30/22 08:03 25 mls/hr ONCE ONE Administration Discontinued Medications Generic Name Dose Route Start Last Admin Trade Name Freq PRN Reason Stop Dose Admin Sodium Chloride 1,000 mls @ 999 mls/hr 10/30/22 04:21 10/30/22 06:04 Ns IVCONT 10/30/22 05:21 Infused .Q1H1M ONE Infusion Loperamide HCl 4 mg 10/30/22 04:36 10/30/22 05:01 Loperamide Hcl 2 Mg Capsule PO 10/30/22 04:37 4 mg ONCE ONE Administration Medical Decision Making Medical Decision Making MDM Narrative: - Consult Healthcare Provider Management of the patient was discussed with: Hospitalist Lab Data MDM Lab Attestation statement: I reviewed the patient's lab results. 10/30/22 04:54 10/30/22 04:54 Labs: Lab Results 10/30/22 10/30/22 10/30/22 Range/Units 04:54 04:54 04:54 WBC 9.6 (4.8-10.8) X10*3/uL RBC 3.41 L (4.60-5.80) X10*6/uL Hgb 9.6 L (14.0-18.0) g/dl Hct 29.5 L (42.0-52.0) % MCV 86.5 (80.0-98.0) fL MCH 28.2 (27.0-33.0) pg MCHC 32.5 (31.0-36.0) g/dl RDW 17.9 H (11.0-16.0) % Plt Count 80 L D (160-400) X10*3/uL MPV 8.5 L (9.4-12.4) fL Immature Gran % (Auto) 0.3 (0.0-0.4) % Neut % (Auto) 60.8 (45-73) % Lymph % (Auto) 28.9 (20-40) % Stephens % (Auto) 7.4 (2-11) % Eos % (Auto) 2.1 (0-4) % Baso % (Auto) 0.5 (0-2) % Lymph # (Auto) 2.8 (1.2-4.9) X10*3/uL Stephens # (Auto) 0.7 (0.1-1.2) X10*3/uL Eos # (Auto) 0.2 (0.0-0.4) X10*3/uL Baso # (Auto) 0.1 (0.0-0.2) X10*3/uL Abs Immat Gran (auto) 0.03 (0.00-0.03) X10*3/uL Absolute Neuts (auto) 5.8 (2.0-8.3) x10*3/uL Absolute Nucleated RBC 0.000 (0.0-0.012) X10*3/uL Nucleated RBC % (auto) 0.0 (0.0-0.2) /100WBC PT (10.0-13.1) SEC INR (0.9-1.1) Sodium 138 (135-145) mmol/L Potassium 3.4 D (3.3-5.1) mmol/L Chloride 104 (96-108) mmol/L Carbon Dioxide 21 L (22-29) mmol/L Anion Gap 16 (12-20) BUN 13 (9-16) mg/dL Creatinine 1.00 (0.5-1.4) mg/dL Estim Creat Clear Calc 90.8 Estimated GFR > 60 Random Glucose 100 (60-115) mg/dL Calcium 8.0 L (8.4-10.2) mg/dL Magnesium 1.3 L* (1.6-2.6) mg/dL Total Bilirubin 0.7 (0.0-1.0) mg/dL Direct Bilirubin 0.4 (0.0-0.5) mg/dL AST 22 (5-37) U/L ALT 9 (0-40) U/L Alkaline Phosphatase 121 H (39-117) U/L Troponin I High Sens < 3.5 (<3.5-35.0) ng/L Total Protein 6.5 (6.5-8.0) g/dL Albumin 3.5 (3.5-5.0) g/dL Ethyl Alcohol mg/dL COVID-19 (TORSTEN) (Negative) COVID-19 Clin Com 10/30/22 10/30/22 10/30/22 Range/Units 04:54 04:54 04:54 WBC (4.8-10.8) X10*3/uL RBC (4.60-5.80) X10*6/uL Hgb (14.0-18.0) g/dl Hct (42.0-52.0) % MCV (80.0-98.0) fL MCH (27.0-33.0) pg MCHC (31.0-36.0) g/dl RDW (11.0-16.0) % Plt Count (160-400) X10*3/uL MPV (9.4-12.4) fL Immature Gran % (Auto) (0.0-0.4) % Neut % (Auto) (45-73) % Lymph % (Auto) (20-40) % Stephens % (Auto) (2-11) % Eos % (Auto) (0-4) % Baso % (Auto) (0-2) % Lymph # (Auto) (1.2-4.9) X10*3/uL Stephens # (Auto) (0.1-1.2) X10*3/uL Eos # (Auto) (0.0-0.4) X10*3/uL Baso # (Auto) (0.0-0.2) X10*3/uL Abs Immat Gran (auto) (0.00-0.03) X10*3/uL Absolute Neuts (auto) (2.0-8.3) x10*3/uL Absolute Nucleated RBC (0.0-0.012) X10*3/uL Nucleated RBC % (auto) (0.0-0.2) /100WBC PT 12.9 (10.0-13.1) SEC INR 1.1 (0.9-1.1) Sodium (135-145) mmol/L Potassium (3.3-5.1) mmol/L Chloride (96-108) mmol/L Carbon Dioxide (22-29) mmol/L Anion Gap (12-20) BUN (9-16) mg/dL Creatinine (0.5-1.4) mg/dL Estim Creat Clear Calc Estimated GFR Random Glucose (60-115) mg/dL Calcium (8.4-10.2) mg/dL Magnesium (1.6-2.6) mg/dL Total Bilirubin (0.0-1.0) mg/dL Direct Bilirubin (0.0-0.5) mg/dL AST (5-37) U/L ALT (0-40) U/L Alkaline Phosphatase (39-117) U/L Troponin I High Sens (<3.5-35.0) ng/L Total Protein (6.5-8.0) g/dL Albumin (3.5-5.0) g/dL Ethyl Alcohol 257 mg/dL COVID-19 (TORSTEN) Negative (Negative) COVID-19 Clin Com See Note Independent Interpretation I performed an independent interpretation of an: CT Scan Radiology Impression Discussion of test interpretation with radiology: I have reviewed the radiologist's reading. Radiologist Impression: FINDINGS: Head: There is no evidence of acute intracranial hemorrhage or territorial infarction. Previously seen bilateral convexity subdural hematomas have resolved/resorbed. No abnormal mass effect or midline shift is seen. Parekh to white matter differentiation is well preserved. No extra-axial fluid collections are identified. No hydrocephalus. Proportional prominence of the ventricles and sulcal spaces is consistent with mild volume loss. Patchy periventricular and deep white matter hypoattenuation is consistent with mild small vessel ischemic changes. There is right posterior parasagittal parietal calvarial subgaleal hematoma and associated scalp laceration. The mastoid air cells are clear. Minimal mucosal thickening in the right maxillary sinus. Cervical spine: There is anatomic alignment of the vertebral bodies and posterior elements. The atlantoaxial and atlantooccipital articulations are intact. Vertebral body heights maintained. Endplate osteophytes and loss of disc space height at C5-C6 and C6-C7. No evidence of acute fracture. No prevertebral soft tissue swelling. Visualized portions of the lung apices are unremarkable. Stable asymmetric prominence of the right thyroid gland, without discrete nodule identified. CT/CT head/brain wo IV con IMPRESSION: *? No acute intracranial findings. *? No acute fracture or malalignment of the cervical spine. *? Right posterior parasagittal parietal calvarial subgaleal hematoma and associated scalp laceration. This is in the same location as the prior laceration, and it is unclear which components of this are acute or residual from previous trauma. ? Discharge Plan Discharge Clinical Impression: Weakness, Multiple falls, Nonhealing nonsurgical wound Patient Disposition: Admitted As Inpatient
--- NOTE | 2022-10-30 04:50 | PC.NURSE ---
Pt presents to ED after a fall at home. Pt reports no LOC and no thinners, landed on a pile of clothes. Pt has a laceration on the back of his head from a previous fall but it reopened today. Pt is A&Ox4 GCS 15. Upon pt contact, it was noted that pt is covered in feces from the waist down. There are raw spots around the groin and a large pressure wound on the buttocks. Pt legs are edematous with dry scaly skin. Noted by tech that a insect fell from between his toes. Pt states he noticed the wound yesterday and that he gets up and walks around at home regularly. Pt lives in the basement of his mother's house and is her primary caregiver. Pt reported that he has gone several days only consuming water which resulted in liquid stools. Pt was unable to control the movements and became covered in it. Pt was cleaned and situated in bed comfortably. Labs will be drawn and IV will be inserted.
[2022-10-30 05:01] LABS: Basophils Absolute Auto 0.1 X10*3/uL (0.0-0.2); Basophils Percent Auto 0.5 % (0-2); Eosinophils Absolute Auto 0.2 X10*3/uL (0.0-0.4); Eosinophils Percent Auto 2.1 % (0-4); Hematocrit 29.5 % (42.0-52.0); Hemoglobin 9.6 g/dl (14.0-18.0); Imm Gran Abs Auto 0.03 X10*3/uL (0.00-0.03); Imm Gran Pct Auto 0.3 % (0.0-0.4); Lymphocytes Absolute Auto 2.8 X10*3/uL (1.2-4.9); Lymphocytes Percent Auto 28.9 % (20-40); Mean Corpuscular HGB Conc 32.5 g/dl (31.0-36.0); Mean Corpuscular Hemoglobin 28.2 pg (27.0-33.0); Mean Corpuscular Volume 86.5 fL (80.0-98.0); Mean Platelet Volume 8.5 fL (9.4-12.4); Monocytes Absolute Auto 0.7 X10*3/uL (0.1-1.2); Monocytes Percent Auto 7.4 % (2-11); Neutrophils Absolute Auto 5.8 x10*3/uL (2.0-8.3); Neutrophils Percent Auto 60.8 % (45-73); Red Blood Count 3.41 X10*6/uL (4.60-5.80); Red Cell Distribution Width 17.9 % (11.0-16.0); White Blood Count 9.6 X10*3/uL (4.8-10.8)
[2022-10-30] MEDS: Loperamide HCl 2 MG CAPSULE 4 MG PO (05:01)
[2022-10-30 05:02] LABS: MANUAL DIFF FLAG NO; Platelet Count 80 X10*3/uL (160-400)
[2022-10-30] MEDS: 0.9 % Sodium Chloride 1,000 ML 999 ML IVCONT (05:02)
[2022-10-30 05:07] LABS: INTERNATIONAL NORM RATIO 1.1 (0.9-1.1); Prothrombin Time 12.9 SEC (10.0-13.1)
[2022-10-30 05:17] LABS: COVID-19 Test Negative (Negative); IDNOW Serial# BCCEAD1C
[2022-10-30 05:18] LABS: Ethanol 257 mg/dL
[2022-10-30 05:25] LABS: Troponin-I High Sensitivity < 3.5 ng/L (<3.5-35.0)
--- NOTE | 2022-10-30 05:41 | PC.NURSE ---
I spoke with pt sister who stated pt has fallen about 7 times in the last month, resulting in [place] [facility] [facility] numerous times. Pt lives with his mother who has Alzheimer's and is her primary caregiver. Staff was concerned about the mother being by herself so I called the sister. Sister reported she lives two houses away from the pt and his mother and will be checking on her throughout the day.
[2022-10-30 05:44] LABS: Alanine Aminotransferase 9 U/L (0-40); Albumin Level 3.5 g/dL (3.5-5.0); Alkaline Phosphatase 121 U/L (39-117); Aspartate Amino Transferase 22 U/L (5-37); Bilirubin Direct 0.4 mg/dL (0.0-0.5); Bilirubin Total 0.7 mg/dL (0.0-1.0); Blood Urea Nitrogen 13 mg/dL (9-16); Carbon Dioxide 21 mmol/L (22-29); Chloride 104 mmol/L (96-108); Creatinine Clr Calc Pharmacy 90.8; Estimated Glomerular Filt Rate > 60; Glucose Random 100 mg/dL (60-115); Magnesium 1.3 mg/dL (1.6-2.6); Potassium 3.4 mmol/L (3.3-5.1); Sodium 138 mmol/L (135-145); Total Protein 6.5 g/dL (6.5-8.0)
[2022-10-30 05:46] LABS: Anion Gap 16 (12-20)
--- NOTE | 2022-10-30 06:13 | PC.NURSE ---
Reported critical mag 1.[address] ROS[address] Hannah and [address]. burden
[2022-10-30] MEDS: Magnesium Sulfate/H2O 2 GM/50 ML PIGGYBACK IV (06:19)
[2022-10-30 06:56] LABS: Appearance Urine Clear; Color Urine Yellow; Glucose Urine UA Negative (Negative); Leukocyte Esterase Urine Negative (Negative); Nitrite Urine Negative (Negative); PH 5.5 (5.0-9.0); Urine Blood Negative (Negative); Urine Ketones Negative (Negative); Urine Protein Negative (Neg-Trace)
[2022-10-30 07:08] LABS: Amphetamine Screen Urine Not Detected (Not Detect); Barbiturates, Urine POSITIVE (Not Detect); Benzodiazepines Screen Urine Not Detected (Not Detect); Cannabinoid Screen Urine Not Detected (Not Detect); Cocaine Screen Urine Not Detected (Not Detect); Fentanyl, urine Not Detected (Not Detect); Opiate Screen Urine Not Detected (Not Detect); Phencyclidine Screen Urine Not Detected (Not Detect)
--- NOTE | 2022-10-30 09:08 | PHA.MEDREC ---
Pharmacy Consult ? Medication Reconciliation Pharmacy has completed the medication reconciliation. Patient is nonadherent to heart medications, but endorses he is supposed to be on torsemide and metoprolol. Andrea
--- NOTE | 2022-10-30 12:58 | PM.IMHP ---
History of Present Illness Date of Service: 10/30/22 <KADEN Cano - Last Filed: 10/30/22 13:40> Attending physician on admission: Joshua Mcwilliams <KADEN Cano - Last Filed: 10/30/22 13:40> Chief Complaint: falls, diarrhea <KADEN Cano - Last Filed: 10/30/22 13:40> Patient with htn, ckd, ascending aortic dilitation, iron deficiency anemia, hld, chronic venous stasis dermatitis, etoh use disorder, history of DVT and severe obesity with BMI >37 presented to ED via EMS from home after sustaining a fall. The patient states he has vertigo as baseline and will lose balance and fall. He has had multiple falls in the last 6 weeks with at least 2 admissions to [facility]. On 09/21 had an unwitnessed fall with LOC and was reported to have a brief tonic/clonic seizure prior to EMS arrival on that day. He was treated for acute alcohol withdrawal. He did sustain laceration to the right side of the head with Head CT at that time showing bilateral subdural hematomas. Neurosurgery was consulted with follow-up head CT recommended but no acute neurosurgical intervention required. He states since then he has had several falls without loss of consciousness including this morning where he felt unsteady and fell sideways into a pile of laundry. Denies head strike or loss of consciousness. However EMS did note blood to the right scalp from existing wound. The patient states he had about 4 cups of vodka last night but has not had any alcohol for 3 days prior to this as he has had generalized abdominal pain with multiple episodes of diarrhea daily, 2 episodes of vomiting, nausea, and decreased appetite. Denies any hematemesis, melena, hematochezia. No fevers or chills. Denies eating any bad foods or recent travel. No sick contacts. Denies any lightheadedness, shortness of breath, palpitations, chest pain. On arrival, vital signs stable. Orthostatic vital signs negative. No leukocytosis. H/H stable. Renal function electrolyte levels normal except for hypo magnesium E of 1.3. There is also new thrombocytopenia of 80. Troponin unremarkable. UA unremarkable. Head CT negative for any acute intracranial findings but does show right posterior parasagittal parietal calvarial sub gluteal hematoma with associated scalp ulceration. CT of the cervical spine is negative for any acute fracture or malalignment. <KADEN Cano - Last Filed: 10/30/22 13:40> Review of Systems Review of Systems: General: No fevers, malaise, unintentional weight loss HEENT: No blurred vision, diplopia. No sore throat, nasal congestion, rhinorrhea, sinus pain, ear pain Cardiovascular: No chest pain, palpitations, or leg edema Respiratory: No shortness of breath, wheezing, cough GI: +n/v/d, +abd pain. No constipation, melena, hematochezia : No dysuria, hematuria, increased urinary frequency, decreased urinary output MSK: No myalgia, back pain Neuro: No headaches, weakness, paresthesias. +vertigo Skin: No rashes or lesions <KADEN Cano - Last Filed: 10/30/22 13:40> [facility] Medical History: Medical History (Updated 10/30/22 @ 13:28 by KADEN Cano) Alcohol use disorder Alcoholic steatohepatitis Anemia Anemia Ascending aortic aneurysm Chronic ulcer of leg Chronic venous stasis History of DVT of lower extremity History of rhabdomyolysis HTN (hypertension) Hx of lower gastrointestinal bleeding Hx of sepsis Hyperlipidemia DEBORAH (obstructive sleep apnea) Seborrheic dermatitis <KADEN Cano - Last Filed: 10/30/22 13:40> Family History: Family History Mother Dementia Maternal Grandmother Dementia <KADEN Cano - Last Filed: 10/30/22 13:40> Surgical History: Surgical History Hx of colonoscopy <KADEN Cano - Last Filed: 10/30/22 13:40> Social History: Social History Household Members: Family Housing: Apartment Do you presently have visiting nurse or other home services: No Alcohol intake: current Alcohol intake frequency: a few times a week Alcohol type: hard liquor Patient Tobacco Use Status: Never used Tobacco Smoked in Last 30 Days: No Use of substances other than those prescribed or required for medical reasons: No Advance Directives: Yes Advance Directives on File: Yes Advance Directives Date on File: 04/13/22 service: No Current occupational status: disabled <KADEN Cano - Last Filed: 10/30/22 13:40> Meds Allergies/Adverse reactions: Allergies Allergy/AdvReac Type Severity Reaction Status Date / Time azithromycin [AZITHROMYCIN] Allergy Severe FACIAL Verified 11/30/21 09:19 SWELLING hydrochlorothiazide [HCTZ] Allergy Severe Facial Verified 04/13/22 12:11 Swelling <KADEN Cano - Last Filed: 10/30/22 13:40> Active Medications: Current Medications Acetaminophen (Acetaminophen 325 Mg Tablet) 650 mg PO Q6H PRN PRN Reason: Pain, Mild (Pain Scale 1-3) Allopurinol (Allopurinol 300 Mg Tablet) 300 mg PO DAILY [facility] Cyanocobalamin (Cyanocobalamin (Vitamin B-12) 1,000 Mcg Tablet) 1,000 mcg PO DAILY [facility] Folic Acid (Folic Acid 1 Mg Tablet) 1 mg PO DAILY [facility] Lactated Ringer's (Lr) 1,000 mls @ 80 mls/hr IVCONT .[id number] PROMISE Metoprolol Succinate (Metoprolol Succinate Er 25 Mg Tab.Er.24h) 75 mg PO DAILY PROMISE; Protocol Multivitamins/Vitamin C (Multivitamin Tablet) 1 tab PO DAILY [facility] Non-Formulary Medication (Ferrous Sulfate) 325 mg PO DAILY [facility] Ondansetron HCl (Ondansetron Hcl 4 Mg/2 Ml Vial) 4 mg IVPUSH Q8H PRN PRN Reason: Nausea and Vomiting Sodium Chloride (0.9 % Sodium Chloride Flush 3 Ml Syringe) 3 ml IVFLUSH QSHIFT PROMISE Thiamine HCl (Thiamine Hcl 100 Mg Tablet) 100 mg PO DAILY PROMISE Torsemide (Torsemide 20 Mg Tablet) 40 mg PO DAILY PROMISE; Protocol <KADEN Cano - Last Filed: 10/30/22 13:40> Home medications: Home Medications Medication Instructions Recorded Confirmed Last Taken Type cyanocobalamin (vitamin B-12) 1,000 mcg PO DAILY 10/02/22 10/30/22 Unknown History 1,000 mcg tablet (Vitamin B-12) ferrous sulfate 325 mg (65 mg 325 mg PO DAILY 10/02/22 10/30/22 Unknown History iron) tablet folic acid 1 mg tablet 1 mg PO DAILY 10/02/22 10/30/22 Unknown History thiamine HCl (vitamin B1) 100 mg 100 mg PO DAILY 10/02/22 10/30/22 Unknown History tablet (Vitamin B-1) allopurinol 300 mg tablet 1 tab PO DAILY 10/30/22 10/30/22 Unknown History metoprolol succinate 50 mg 1.5 tab PO DAILY 10/30/22 10/30/22 Unknown History tablet,extended release 24 hr multivitamin with folic acid 400 1 tab PO DAILY 10/30/22 10/30/22 Unknown History mcg tablet (Daily-Gene (with folic acid)) torsemide 20 mg tablet 2 tab PO DAILY 10/30/22 10/30/22 Unknown History <KADEN Cano - Last Filed: 10/30/22 13:40> Physical Exam Vital Signs and Narrative: Vital Signs: Last Vital Signs Temp 98.1 F 10/30/22 06:13 Pulse 85 10/30/22 11:38 Resp 16 10/30/22 11:38 BP 127/82 10/30/22 11:38 Pulse Ox 99 10/30/22 11:38 O2 Del Method 10/30/22 11:38 BMI result Body Mass Index 37.3 <KADEN Cano - Last Filed: 10/30/22 13:40> Constitutional - Awake and Alert, No apparent distress Eyes - PERRLA, EOMI Cardiovascular - S1S2, RRR, No edema Respiratory - Normal lung expansion, Normal respiratory effort, No respiratory distress, CTA bilaterally Gastrointestinal - NT / ND; +BS; No rebound or guarding - No CVA tenderness Extremities - no calf tenderness bilaterally, no swelling. Venous stasis dermatitis bilaterally Musculoskeletal - Normal inspection, normal ROM Skin - Warm/Dry. Nonhealing sclap laceration to right parietal scalp with friable edges. Stage 2 decubitus ulcer bilateral buttock. See photos Neurological - Alert & oriented x3, horizontal nystagmus, otherwise CN II-XII in tact, 5/5 strength BUE and BLE Psychological - Appropriate affect <KADEN Cano - Last Filed: 10/30/22 13:40> Results Labs CBC and Chem 7: 10/30/22 04:54 10/30/22 04:54 <KADEN Cano - Last Filed: 10/30/22 13:40> Labs: Laboratory Results - last 24 hr 10/30/22 10/30/22 10/30/22 04:54 04:54 04:54 MCV 86.5 MCH 28.2 MCHC 32.5 RDW 17.9 H Plt Count 80 L D MPV 8.5 L Immature Gran % (Auto) 0.3 Neut % (Auto) 60.8 Lymph % (Auto) 28.9 [place] % (Auto) 7.4 Eos % (Auto) 2.1 Baso % (Auto) 0.5 Lymph # (Auto) 2.8 [place] # (Auto) 0.7 Eos # (Auto) 0.2 Baso # (Auto) 0.1 Abs Immat Gran (auto) 0.03 Absolute Neuts (auto) 5.8 Absolute Nucleated RBC 0.000 Nucleated RBC % (auto) 0.0 PT INR Anion Gap 16 Estim Creat Clear Calc 90.8 Estimated GFR > 60 Random Glucose 100 Calcium 8.0 L Magnesium 1.3 L* Total Bilirubin 0.7 Direct Bilirubin 0.4 AST 22 ALT 9 Alkaline Phosphatase 121 H Troponin I High Sens < 3.5 Total Protein 6.5 Albumin 3.5 Urine Color Urine Appearance Urine pH Ur Specific [place] Urine Protein Urine Glucose (UA) Urine Ketones Urine Blood Urine Nitrite Ur Leukocyte Esterase Urine Opiates Screen Urine Fentanyl Screen Ur Barbiturates Screen Ur Phencyclidine Scrn Ur Amphetamines Screen U Benzodiazepines Scrn Urine Cocaine Screen U Marijuana (THC) Screen Ethyl Alcohol COVID-19 (TORSTEN) COVID-19 Clin Com 10/30/22 10/30/22 10/30/22 04:54 04:54 04:54 MCV MCH MCHC RDW Plt Count MPV Immature Gran % (Auto) Neut % (Auto) Lymph % (Auto) [place] % (Auto) Eos % (Auto) Baso % (Auto) Lymph # (Auto) [place] # (Auto) Eos # (Auto) Baso # (Auto) Abs Immat Gran (auto) Absolute Neuts (auto) Absolute Nucleated RBC Nucleated RBC % (auto) PT 12.9 INR 1.1 Anion Gap Estim Creat Clear Calc Estimated GFR Random Glucose Calcium Magnesium Total Bilirubin Direct Bilirubin AST ALT Alkaline Phosphatase Troponin I High Sens Total Protein Albumin Urine Color Urine Appearance Urine pH Ur Specific [place] Urine Protein Urine Glucose (UA) Urine Ketones Urine Blood Urine Nitrite Ur Leukocyte Esterase Urine Opiates Screen Urine Fentanyl Screen Ur Barbiturates Screen Ur Phencyclidine Scrn Ur Amphetamines Screen U Benzodiazepines Scrn Urine Cocaine Screen U Marijuana (THC) Screen Ethyl Alcohol 257 COVID-19 (TORSTEN) Negative COVID-19 Clin Com See Note 10/30/22 10/30/22 06:47 06:47 MCV MCH MCHC RDW Plt Count MPV Immature Gran % (Auto) Neut % (Auto) Lymph % (Auto) [place] % (Auto) Eos % (Auto) Baso % (Auto) Lymph # (Auto) [place] # (Auto) Eos # (Auto) Baso # (Auto) Abs Immat Gran (auto) Absolute Neuts (auto) Absolute Nucleated RBC Nucleated RBC % (auto) PT INR Anion Gap Estim Creat Clear Calc Estimated GFR Random Glucose Calcium Magnesium Total Bilirubin Direct Bilirubin AST ALT Alkaline Phosphatase Troponin I High Sens Total Protein Albumin Urine Color Yellow Urine Appearance Clear Urine pH 5.5 Ur Specific [place] 1.010 Urine Protein Negative Urine Glucose (UA) Negative Urine Ketones Negative Urine Blood Negative Urine Nitrite Negative Ur Leukocyte Esterase Negative Urine Opiates Screen Not Detected Urine Fentanyl Screen Not Detected Ur Barbiturates Screen POSITIVE H Ur Phencyclidine Scrn Not Detected Ur Amphetamines Screen Not Detected U Benzodiazepines Scrn Not Detected Urine Cocaine Screen Not Detected U Marijuana (THC) Screen Not Detected Ethyl Alcohol COVID-19 (TORSTEN) COVID-19 Clin Com <KADEN Cano - Last Filed: 10/30/22 13:40> Imaging Radiologist's Impressions: Impressions Cervical Spine CT 10/30/22 05:42 IMPRESSION: * No acute intracranial findings. * No acute fracture or malalignment of the cervical spine. * Right posterior parasagittal parietal calvarial subgaleal hematoma and associated scalp laceration. This is in the same location as the prior laceration, and it is unclear which components of this are acute or residual from previous trauma. Head CT 10/30/22 05:43 IMPRESSION: * No acute intracranial findings. * No acute fracture or malalignment of the cervical spine. * Right posterior parasagittal parietal calvarial subgaleal hematoma and associated scalp laceration. This is in the same location as the prior laceration, and it is unclear which components of this are acute or residual from previous trauma. <KADEN Cano - Last Filed: 10/30/22 13:40> Assessment and Plan (1) Multiple falls: Status: Acute <KADEN Cano - Last Filed: 10/30/22 13:40> (2) Weakness: Status: Acute <KADEN Cano - Last Filed: 10/30/22 13:40> (3) Nonhealing nonsurgical wound: Status: Acute <KADEN Cano - Last Filed: 10/30/22 13:40> (4) Alcohol use disorder: Status: Acute <KADEN Cano - Last Filed: 10/30/22 13:40> Patient with htn, ckd, ascending aortic dilitation, iron deficiency anemia, hld, chronic venous stasis dermatitis, etoh use disorder, history of DVT and severe obesity with BMI >37 admitted for evaluation of multiple falls with nonhealing scalp laceration and alcohol use disorder/withdrawal. #Multiple fall- likely multifactorial in etiology related to etoh abuse and vertigo -OOB with assist -orthostatic vital signs negative -PT eval -recommend cessation of alcohol consumption -See below #Alcohol use disorder -At risk for withdrawal. ?hx withdrawal seziure after review [facility] records -No etoh fri-sun, drank 4 cups vodka lASt night with etoh level 257 in ed -Monitor on CIWA. Initiate phenobarb per protocol -Addiction med consult -IV thiamine x 3 days. Continue PO folic acid -Monitor on telemetry # thrombocytopenia -likely related to alcohol use -monitor platelet count #N/V/D- ?viral etiology vs etoh withdrawal as pt did not consume etoh for 3 days until last night -GI panel and CDiff panel ordered -Ondansetron prn -clear liquid diet, advanced as tolerated # nonhealing right scalp laceration with stable right-sided parietal stubbed dural hematoma -from fall with head injury/loss of consciousness on 09/21 -evaluated by [facility] neuro surgery at that time and neuro surgical intervention was not indicated and no outpatient neurosurgery follow-up was recommended. -repeat head CT this morning shows stability of hematoma -general surgery consulted for evaluation of nonhealing right scalp laceration with friable edges # stage II decubitus ulcer bilateral buttock-present on arrival -appreciate GI input -barrier cream and repositioning q.2h # chronic vertigo -initiate meclizine p.r.n. -would likely benefit from outpatient Neurology versus ENT follow-up # chronic iron deficiency anemia -continue ferrous sulfate Full code DVT prophylaxis- SCPs due to thrombocytopenia Patient requires inpatient stay of at least 2 midnights for management of alcohol withdrawal with recurrent falls requiring phenobarbital per protocol, PT eval, and probable placement to short-term rehab <KADEN Cano - Last Filed: 10/30/22 13:40> Patient with htn, ckd, ascending aortic dilitation, iron deficiency anemia, hld, chronic venous stasis dermatitis, etoh use disorder, history of DVT and severe obesity with BMI >37 admitted for evaluation of multiple falls with nonhealing scalp laceration and alcohol use disorder/withdrawal. #Multiple fall- likely multifactorial in etiology related to etoh abuse and vertigo -OOB with assist -orthostatic vital signs negative -PT eval -recommend cessation of alcohol consumption -See below #Alcohol use disorder -At risk for withdrawal. ?hx withdrawal seziure after review [facility] records -No etoh fri-sun, drank 4 cups vodka lASt night with etoh level 257 in ed -Monitor on CIWA. Initiate phenobarb per protocol -Addiction med consult -IV thiamine x 3 days. Continue PO folic acid -Monitor on telemetry # thrombocytopenia -likely related to alcohol use -monitor platelet count #N/V/D- ?viral etiology vs etoh withdrawal as pt did not consume etoh for 3 days until last night -GI panel and CDiff panel ordered -Ondansetron prn -clear liquid diet, advanced as tolerated # nonhealing right scalp laceration with stable right-sided parietal stubbed dural hematoma -from fall with head injury/loss of consciousness on 09/21 -evaluated by [facility] neuro surgery at that time and neuro surgical intervention was not indicated and no outpatient neurosurgery follow-up was recommended. -repeat head CT this morning shows stability of hematoma -general surgery consulted for evaluation of nonhealing right scalp laceration with friable edges # stage II decubitus ulcer bilateral buttock-present on arrival -appreciate GI input -barrier cream and repositioning q.2h # chronic vertigo -initiate meclizine p.r.n. -would likely benefit from outpatient Neurology versus ENT follow-up # chronic iron deficiency anemia -continue ferrous sulfate Full code DVT prophylaxis- SCPs due to thrombocytopenia Patient requires inpatient stay of at least 2 midnights for management of alcohol withdrawal with recurrent falls requiring phenobarbital per protocol, PT eval, and probable placement to short-term rehab Addendum to history and physical by the advanced practice provider, Sharon Reyes I interviewed and examined the patient. I discussed their presentation and management with the HEIDE. I reviewed the history and physical and agree with the documentation, with the following additions and corrections: 62yo M with AUD who sustained fall after losing his balance. Multiple falls with 2 recent admissions to [facility] for LOC and brief tonic/clonic sz, treated for EtOH withdrawal and also sustained R scalp lacertaion and SDH which were managed noneoperatively. Drank 4 cups vodka last night. Also presents with N/V/adiarrhea. On exam, has Labs notable for Mg 1.3, pltalets 80. CTH with Right posterior parasagittal parietal calvarial subgaleal hematoma and associated scalp laceration. Wound appears friable with fresh blood. Will admit for impending EtOH withdrawal and will also need wound care/surgical management of scalp laceration [delayed closure?]. PT eval and will likely need placement in SNF. <Joshua Mcwilliams MD - Last Filed: 10/30/22 15:58> Time Spent With Patient Time: Total time managing care of this patient today ____ minutes. <KADEN Cano - Last Filed: 10/30/22 13:40> Quality Stroke Does the patient have a stroke diagnosis?: No <KADEN Cano - Last Filed: 10/30/22 13:40> VTE Prior VTE?: No <KADEN Cano - Last Filed: 10/30/22 13:40> VTE Risk Level:: Medical - moderate - high <KADEN Cano - Last Filed: 10/30/22 13:40> VTE Device Contraindication: N/A - Device Ordered <KADEN Cano - Last Filed: 10/30/22 13:40> VTE Drug Contraindication: Treatment Not Indicated <KADEN Cano - Last Filed: 10/30/22 13:40>
--- NOTE | 2022-10-30 13:12 | PM.CNGS ---
History of Present Illness Consult details Consult date: 10/30/22 Narrative: The patient is a 62-year-old gentleman with extensive past medical history including alcohol use disorder, hypertension, obstructive sleep apnea, obesity, history of bilateral subdural hematomas, bilateral lower extremity chronic venous disease with multiple falls. During a recent fall, he struck his head and knocked out lencho that had been placed and has a open scalp wound that the ER did not endorse closing due to the chronicity of it being chronically open. Patient reports some headache but otherwise denies any local neurologic symptoms. He denies any chest pain, difficulty breathing, shortness of breath. He denies any abdominal pain. Denies any paresthesias or upper lower extremity symptoms. He is in surprisingly good spirits and notes only a chronic headache and denies any other significant neurologic findings or visual disturbances. He has no chest pain or difficulty breathing or shortness of breath. He denies any abdominal pain Review of Systems Review of Systems: Yes all other systems are reviewed and are negative Constitutional: Constitutional: Reports as per [facility] Past Medical History Medical History (Updated 10/30/22 @ 13:28 by KADEN Cano) Alcohol use disorder Alcoholic steatohepatitis Anemia Anemia Ascending aortic aneurysm Chronic ulcer of leg Chronic venous stasis History of DVT of lower extremity History of rhabdomyolysis HTN (hypertension) Hx of lower gastrointestinal bleeding Hx of sepsis Hyperlipidemia DEBORAH (obstructive sleep apnea) Seborrheic dermatitis Family History Family History Mother Dementia Maternal Grandmother Dementia Surgical History Surgical History Hx of colonoscopy Social History Social History Household Members: Family Housing: Apartment Do you presently have visiting nurse or other home services: No Alcohol intake: current Alcohol intake frequency: a few times a week Alcohol type: hard liquor Patient Tobacco Use Status: Never used Tobacco Smoked in Last 30 Days: No Use of substances other than those prescribed or required for medical reasons: No Advance Directives: Yes Advance Directives on File: Yes Advance Directives Date on File: 04/13/22 service: No Current occupational status: disabled Meds Allergies Allergy/AdvReac Type Severity Reaction Status Date / Time azithromycin [AZITHROMYCIN] Allergy Severe FACIAL Verified 11/30/21 09:19 SWELLING hydrochlorothiazide [HCTZ] Allergy Severe Facial Verified 04/13/22 12:11 Swelling Active Medications: Current Medications Acetaminophen (Acetaminophen 325 Mg Tablet) 650 mg PO Q6H PRN PRN Reason: Pain, Mild (Pain Scale 1-3) Allopurinol (Allopurinol 300 Mg Tablet) 300 mg PO DAILY [facility] Cyanocobalamin (Cyanocobalamin (Vitamin B-12) 1,000 Mcg Tablet) 1,000 mcg PO DAILY [facility] Ferrous Sulfate (Ferrous Sulfate 324 Mg Tablet.Dr) 324 mg PO DAILY [facility] Folic Acid (Folic Acid 1 Mg Tablet) 1 mg PO DAILY [facility] Lactated Ringer's (Lr) 1,000 mls @ 80 mls/hr IVCONT .[id number] [facility] Metoprolol Succinate (Metoprolol Succinate Er 25 Mg Tab.Er.24h) 75 mg PO DAILY [facility]; Protocol Multivitamins/Vitamin C (Multivitamin Tablet) 1 tab PO DAILY [facility] Ondansetron HCl (Ondansetron Hcl 4 Mg/2 Ml Vial) 4 mg IVPUSH Q8H PRN PRN Reason: Nausea and Vomiting Sodium Chloride (0.9 % Sodium Chloride Flush 3 Ml Syringe) 3 ml IVFLUSH QSHIFT [facility] Thiamine HCl (Thiamine Hcl 100 Mg Tablet) 100 mg PO DAILY [facility] Torsemide (Torsemide 20 Mg Tablet) 40 mg PO DAILY [facility]; Protocol Home Medications Medication Instructions Recorded Confirmed Last Taken Type cyanocobalamin (vitamin B-12) 1,000 mcg PO DAILY 10/02/22 10/30/22 Unknown History 1,000 mcg tablet (Vitamin B-12) ferrous sulfate 325 mg (65 mg 325 mg PO DAILY 10/02/22 10/30/22 Unknown History iron) tablet folic acid 1 mg tablet 1 mg PO DAILY 10/02/22 10/30/22 Unknown History thiamine HCl (vitamin B1) 100 mg 100 mg PO DAILY 10/02/22 10/30/22 Unknown History tablet (Vitamin B-1) allopurinol 300 mg tablet 1 tab PO DAILY 10/30/22 10/30/22 Unknown History metoprolol succinate 50 mg 1.5 tab PO DAILY 10/30/22 10/30/22 Unknown History tablet,extended release 24 hr multivitamin with folic acid 400 1 tab PO DAILY 10/30/22 10/30/22 Unknown History mcg tablet (Daily-Gene (with folic acid)) torsemide 20 mg tablet 2 tab PO DAILY 10/30/22 10/30/22 Unknown History Physical Exam Vital Signs: Vital Signs: Last Vital Signs Temp 98.1 F 10/30/22 06:13 Pulse 85 10/30/22 11:38 Resp 16 10/30/22 11:38 BP 127/82 10/30/22 11:38 Pulse Ox 99 10/30/22 11:38 O2 Del Method 10/30/22 11:38 BMI result Body Mass Index 37.3 The patient is non-toxic & in good spirits NC/AT, PERRLA, EOMI Mood, affect & judgment all appear appropriate Sclera anicteric conjunctiva pink and moist Oropharynx is clear with no aphthous ulcers, Mallampati class 4, mucous membranes moist Neck is supple with no masses, adenopathy or bruits Thyroid is nontender and free of dominant masses Heart is regular, normal S1-S2 no rubs or murmurs Lungs are clear and equal anteriorly with no audible wheezing, rubs or dullness to percussion Abdomen is obese, soft with no demonstrable hernias. No HSM, rebound, rigidity, guarding, masses or bruits are present. Pelvis is stable to rock and nontender Rectal exam is deferred Skin has good turgor and is free of rashes Extremities free of obvious deformity and to palpation, no pain is noted in the long bones of the upper or lower extremities. Neuro is 5/5 in his upper and lower extremities with no focal deficits. Pictures of the scalp wound in the EMR are reviewed and the tissue defect noted. Results Labs 10/30/22 04:54 10/30/22 04:54 Labs: Abnormal lab results 10/30/22 10/30/22 10/30/22 Range/Units 04:54 04:54 06:47 RBC 3.41 L (4.60-5.80) X10*6/uL Hgb 9.6 L (14.0-18.0) g/dl Hct 29.5 L (42.0-52.0) % RDW 17.9 H (11.0-16.0) % Plt Count 80 L D (160-400) X10*3/uL MPV 8.5 L (9.4-12.4) fL Carbon Dioxide 21 L (22-29) mmol/L Calcium 8.0 L (8.4-10.2) mg/dL Magnesium 1.3 L* (1.6-2.6) mg/dL Alkaline Phosphatase 121 H (39-117) U/L Ur Barbiturates Screen POSITIVE H (Not Detect) Short CBC 10/30/22 Range/Units 04:54 WBC 9.6 (4.8-10.8) X10*3/uL Hgb 9.6 L (14.0-18.0) g/dl Hct 29.5 L (42.0-52.0) % Plt Count 80 L D (160-400) X10*3/uL BMP 10/30/22 04:54 Sodium 138 Potassium 3.4 D Chloride 104 Carbon Dioxide 21 L BUN 13 Creatinine 1.00 Calcium 8.0 L Liver Function 10/30/22 Range/Units 04:54 Total Bilirubin 0.7 (0.0-1.0) mg/dL Direct Bilirubin 0.4 (0.0-0.5) mg/dL AST 22 (5-37) U/L ALT 9 (0-40) U/L Alkaline Phosphatase 121 H (39-117) U/L Albumin 3.5 (3.5-5.0) g/dL Urine 10/30/22 Range/Units 06:47 Urine Color Yellow Urine Appearance Clear Urine pH 5.5 (5.0-9.0) Ur Specific [place] 1.010 (1.005-1.025) Urine Protein Negative (Neg-Trace) mg/dL Urine Glucose (UA) Negative (Negative) mg/dL All other labs normal. Imaging Additional studies: CT of the head and neck report and films are reviewed dated 10/30/2022. No acute trauma noted. Assessment and Plan (1) Nonhealing nonsurgical wound: Status: Acute (2) Multiple falls: Status: Acute (3) Alcohol use disorder: Status: Acute (4) Weakness: Status: Acute Plan Given the chronicity of the scalp wound, the emergency room physician did not endorse closure. Patient has numerous comorbidities that would preclude any sort of local advancement flap, consequently, evaluation and possible VAC per wound care may be considered. Agree with barrier cream and frequent turning regarding stage I pressure concerns in the patient's sacral area. There does not appear to be any acute trauma issues. Please call with any specific questions. Will follow. Time Spent With Patient Time: Total time managing care of this patient today ____ minutes. Procedures Date of Service Date of Service: 10/30/22
[2022-10-30] MEDS: Thiamine HCL 100 MG in 0.9 % Sodium Chloride 100 ML 202 MG IV (14:28)
[2022-10-30] MEDS: Lactated Ringers 1,000 ML 80 ML IVCONT (14:29)
[2022-10-30] MEDS: PHENobarbitaL sodium 130 MG/ML IM ONCE 265.2 MG IM (15:52)
--- NOTE | 2022-10-30 16:58 | MHC.CM.PN ---
CM attempted to meet with patient to discuss discharge planning, but patient sleeping soundly. Will assess when patient wakes.
--- NOTE | 2022-10-30 17:53 | MHC.CM.PN ---
Addendum entered by Winnie Mendoza 10/30/22 18:10: 27 referrals placed. Original Note: CM met with admitted patient with bed assignment pending. A&Ox4. Pt lives with mother. Is her POA. Pays her bills. No DME/services. HCP on file. Moderna x2 and 2 boosters. Pt has had multiple falls in past 6 weeks. Has hx of ETOH misuse and vertigo. Pt feels that his vertigo and tinnitis are problematic. Pt feels that his vertigo is not always present, but when it is, it contributes to his falls. Thinks he needs to see neurology. Will speak with his PCP. Pt does not address alcohol as a contributing factor. Pt is hesitant to go to STR, as he doesn't think that will help with his vertigo. Pt states he was at [facility] in September after a fall, and STR was recommended, but they could not find a facility, so he went home. Pt uses public transportation or walks to where he needs to go. D/C plan: home vs STR. Local referrals placed. PT and addiction medicine consults pending. Pt will need transport home or [facility] van. CM to follow for discharge needs.
--- NOTE | 2022-10-30 19:14 | PC.NURSE ---
assumed care of patient at 1900
[2022-10-30 19:53] LABS: Estimated Average Glucose 82 mg/dL; Hemoglobin A1c % 4.5 %
[2022-10-30] MEDS: PHENobarbitaL sodium 130 MG/ML VIAL IM Q3Hx2 198.9 MG IM (21:37)
[2022-10-30] MEDS: Magnesium Oxide 400 MG TABLET PO (21:37)
--- NOTE | 2022-10-30 21:47 | PC.NURSE ---
patient assisted to and from commode, now resting comfortably on stretcher. bedtime meds given. vital signs updated. call piña within reach. no apparent distress. ciwa score 2 , no complaints aside from headache. will CTM.
[2022-10-31 00:03] VITALS: BP 155/79; PULSE 79; RESP 18; TEMP 37.1; O2SAT 99
--- NOTE | 2022-10-31 03:58 | PC.NURSE ---
report called to family practice medical doctor - patient to be transported upstairs to bed [id number]
[2022-10-31 04:25] VITALS: BP 164/88; PULSE 75; RESP 18; TEMP 37.1; O2SAT 98
[2022-10-31 04:28] VITALS: BMI 37.8
--- NOTE | 2022-10-31 07:00 | PM.PNGS ---
Subjective Subjective Date of Service: 10/31/22 Patient reports: no new complaints Interval history: The patient reports ongoing headache that is been about the same for several weeks. He denies any localizing neurologic symptoms and further denies any visual changes, chest pain, difficulty breathing, shortness of breath, upper lower extremity pain or paresthesias or abdominal pain. Physical Exam Vital Signs: Vital Signs: Last Vital Signs Temp 98.8 F 10/31/22 04:25 Pulse 75 10/31/22 04:25 Resp 18 10/31/22 04:25 BP 164/88 H 10/31/22 04:25 Pulse Ox 98 10/31/22 04:25 O2 Del Method 10/31/22 04:25 BMI result Body Mass Index 37.8 On exam he is nontoxic His head dressing was taken down and there is a clean, complex scalp defect with no purulence and no gross necrosis. The continues to drain serous material. Clavicles and upper extremities remain nontender Lungs are clear and equal anteriorly Heart is regular Abdomen is obese, soft and nontender No lower extremity tenderness is noted Objective Data Active Medications Acetaminophen (Acetaminophen 325 Mg Tablet) 650 mg PO Q6H PRN PRN Reason: Pain, Mild (Pain Scale 1-3) Allopurinol (Allopurinol 300 Mg Tablet) 300 mg PO DAILY [facility] Cyanocobalamin (Cyanocobalamin (Vitamin B-12) 1,000 Mcg Tablet) 1,000 mcg PO DAILY [facility] Ferrous Sulfate (Ferrous Sulfate 324 Mg Tablet.Dr) 324 mg PO DAILY [facility] Folic Acid (Folic Acid 1 Mg Tablet) 1 mg PO DAILY [facility] Lactated Ringer's (Lr) 1,000 mls @ 80 mls/hr IVCONT .[id number] [facility] Last Infusion: 10/31/22 05:00 Dose: 0 mls/hr Documented By: KARRI Thiamine HCl 100 mg/ Sodium (Chloride) 101 mls @ 202 mls/hr IV DAILY [facility] Stop: 11/01/22 09:29 Last Infusion: 10/30/22 15:52 Dose: 0 mls/hr Documented By: RICH Magnesium Oxide (Magnesium Oxide 400 Mg Tablet) 400 mg PO BIDPC [facility] Last Admin: 10/30/22 21:37 Dose: 400 mg Documented By: SYDNI Meclizine HCl (Meclizine Hcl 25 Mg Tablet) 25 mg PO Q8H PRN PRN Reason: Vertigo Metoprolol Succinate (Metoprolol Succinate Er 25 Mg Tab.Er.24h) 75 mg PO DAILY [facility]; Protocol Multivitamins/Vitamin C (Multivitamin Tablet) 1 tab PO DAILY [facility] Ondansetron HCl (Ondansetron Hcl 4 Mg/2 Ml Vial) 4 mg IVPUSH Q8H PRN PRN Reason: Nausea and Vomiting Pharmacy Consult (Consult Rx Etoh Phenob Im/Po) 1 each MISCELLANE ONCE PRN; Protocol PRN Reason: Consult order Phenobarbital (Phenobarbital 15 Mg Tablet) 45 mg PO BID [facility]; Protocol Stop: 11/01/22 21:01 Phenobarbital (Phenobarbital 15 Mg Tablet) 15 mg PO BID [facility]; Protocol Stop: 11/03/22 21:01 Phenobarbital (Phenobarbital 15 Mg Tablet) 15 mg PO DAILY [facility]; Protocol Stop: 11/05/22 09:01 Sodium Chloride (0.9 % Sodium Chloride Flush 3 Ml Syringe) 3 ml IVFLUSH QSHIFT [facility] Last Admin: 10/31/22 01:03 Dose: Not Given Documented By: SYDNI Non-Admin Reason: IV Running Torsemide (Torsemide 20 Mg Tablet) 40 mg PO DAILY [facility]; Protocol Labs 10/30/22 04:54 10/30/22 04:54 Labs: Laboratory Results - last 24 hr 10/30/22 10/30/22 04:54 06:47 Estimat Average Glucose 82 Hemoglobin A1c % 4.5 Urine Opiates Screen Not Detected Urine Fentanyl Screen Not Detected Ur Barbiturates Screen POSITIVE H Ur Phencyclidine Scrn Not Detected Ur Amphetamines Screen Not Detected U Benzodiazepines Scrn Not Detected Urine Cocaine Screen Not Detected U Marijuana (THC) Screen Not Detected Procedures Date of Service Date of Service: 10/31/22 Progress Note: A&P Assessment and plan (1) Nonhealing nonsurgical wound: Status: Acute (2) Multiple falls: Status: Acute (3) Weakness: Status: Acute (4) Alcohol use disorder: Status: Acute Plan The absence of tissue on the scalp will continue to drain. Recommend wound care assessment. There is no evidence of any other acute surgical trauma. There is nothing that requires debridement and the patient's comorbidities and local wound preclude any advancement flaps or other options in my experience. Please call if there are other surgical questions. Time Spent With Patient Time: Total time managing care of this patient today ____ minutes. Quality Stroke Does the patient have a stroke diagnosis?: No VTE Prior VTE?: No VTE Risk Level:: Medical - moderate - high VTE Device Contraindication: N/A - Device Ordered VTE Drug Contraindication: Treatment Not Indicated
[2022-10-31 07:03] LABS: MANUAL DIFF FLAG NO
[2022-10-31 07:08] LABS: Basophils Percent Auto 0.6 % (0-2); Eosinophils Absolute Auto 0.3 X10*3/uL (0.0-0.4); Eosinophils Percent Auto 4.1 % (0-4); Hematocrit 28.5 % (42.0-52.0); Hemoglobin 9.2 g/dl (14.0-18.0); Imm Gran Abs Auto 0.01 X10*3/uL (0.00-0.03); Imm Gran Pct Auto 0.2 % (0.0-0.4); Lymphocytes Absolute Auto 1.8 X10*3/uL (1.2-4.9); Lymphocytes Percent Auto 27.8 % (20-40); Mean Corpuscular HGB Conc 32.3 g/dl (31.0-36.0); Mean Corpuscular Hemoglobin 28.6 pg (27.0-33.0); Mean Corpuscular Volume 88.5 fL (80.0-98.0); Mean Platelet Volume 10.1 fL (9.4-12.4); Monocytes Absolute Auto 0.5 X10*3/uL (0.1-1.2); Monocytes Percent Auto 8.6 % (2-11); Neutrophils Absolute Auto 3.7 x10*3/uL (2.0-8.3); Neutrophils Percent Auto 58.7 % (45-73); Red Blood Count 3.22 X10*6/uL (4.60-5.80); Red Cell Distribution Width 17.9 % (11.0-16.0); White Blood Count 6.3 X10*3/uL (4.8-10.8)
[2022-10-31 07:09] LABS: Platelet Count 93 X10*3/uL (160-400)
[2022-10-31 07:23] LABS: Anion Gap 13 (12-20); Blood Urea Nitrogen 9 mg/dL (9-16); Calcium 7.9 mg/dL (8.4-10.2); Carbon Dioxide 25 mmol/L (22-29); Chloride 106 mmol/L (96-108); Creatinine Clr Calc Pharmacy 118.9; Estimated Glomerular Filt Rate > 60; Glucose Random 85 mg/dL (60-115); Magnesium 1.5 mg/dL (1.6-2.6); Potassium 3.9 mmol/L (3.3-5.1); Sodium 140 mmol/L (135-145)
[2022-10-31 07:56] VITALS: BP 141/78; PULSE 71; RESP 18; TEMP 37; O2SAT 98
[2022-10-31] MEDS: PHENobarbitaL 15 MG TABLET 45 MG PO ×2 (08:53→21:19)
[2022-10-31] MEDS: Torsemide 20 MG TABLET 40 MG PO (08:53)
[2022-10-31] MEDS: Metoprolol Succinate ER 25 MG TAB.ER.24H 75 MG PO (08:54)
[2022-10-31] MEDS: Folic Acid 1 MG TABLET PO (08:54)
[2022-10-31] MEDS: Cyanocobalamin (Vitamin B-12) 1,000 MCG TABLET 1000 MCG PO (08:54)
[2022-10-31] MEDS: Multivitamin TABLET 1 TAB PO (08:54)
[2022-10-31] MEDS: allopurinoL 300 MG TABLET PO (08:54)
[2022-10-31] MEDS: Ferrous Sulfate 324 MG TABLET.DR PO (08:54)
[2022-10-31] MEDS: 0.9 % Sodium Chloride Flush 3 ML SYRINGE IVFLUSH ×2 (08:55→21:19)
[2022-10-31] MEDS: Lactated Ringers 1,000 ML 80 ML IVCONT (08:55)
[2022-10-31] MEDS: Thiamine HCL 100 MG in 0.9 % Sodium Chloride 100 ML 202 MG IV (09:03)
[2022-10-31] MEDS: Magnesium Oxide 400 MG TABLET PO ×2 (09:04→17:20)
[2022-10-31 15:35] VITALS: BMI 37.8
--- NOTE | 2022-10-31 15:58 | P.PNIM_ITS ---
Subjective Subjective Date of Service: 10/31/22 Interval History: No acute issues overnight. CIWA 2 this a.m.. Complains of vague occipital headache related to wound Review of Systems Denies chest pain Denies shortness of breath Denies nausea vomiting diarrhea Denies fever chills Physical Exam Vital Signs: Vital Signs: Last Vital Signs Temp 98.6 F 10/31/22 07:56 Pulse 71 10/31/22 07:56 Resp 18 10/31/22 07:56 BP 141/78 H 10/31/22 07:56 Pulse Ox 98 10/31/22 07:56 O2 Del Method 10/31/22 07:56 BMI result Body Mass Index 37.8 Const: Other: Awake alert oriented x3 no acute distress HEENT: Other: See photos done in ER into exam Resp: Other: Clear to auscultation bilaterally no rales rhonchi or wheezes Cardio: Other: No S4; positive S1-S2; no S3 murmurs rubs or gallops GI: Other: Soft nontender nondistended normoactive bowel sounds Extrem: Other: No edema bilaterally Objective Data Active Medications Acetaminophen (Acetaminophen 325 Mg Tablet) 650 mg PO Q6H PRN PRN Reason: Pain, Mild (Pain Scale 1-3) Allopurinol (Allopurinol 300 Mg Tablet) 300 mg PO DAILY [facility] Last Admin: 10/31/22 08:54 Dose: 300 mg Documented By: RAMON Cyanocobalamin (Cyanocobalamin (Vitamin B-12) 1,000 Mcg Tablet) 1,000 mcg PO DAILY [facility] Last Admin: 10/31/22 08:54 Dose: 1,000 mcg Documented By: RAMON Ferrous Sulfate (Ferrous Sulfate 324 Mg Tablet.) 324 mg PO DAILY [facility] Last Admin: 10/31/22 08:54 Dose: 324 mg Documented By: RAMON Folic Acid (Folic Acid 1 Mg Tablet) 1 mg PO DAILY [facility] Last Admin: 10/31/22 08:54 Dose: 1 mg Documented By: RAMON Lactated Ringer's (Lr) 1,000 mls @ 80 mls/hr IVCONT .[id number] [facility] Last Admin: 10/31/22 08:55 Dose: 80 mls/hr Documented By: RAMON Thiamine HCl 100 mg/ Sodium (Chloride) 101 mls @ 202 mls/hr IV DAILY [facility] Stop: 11/01/22 09:29 Last Infusion: 10/31/22 11:03 Dose: 0 mls/hr Documented By: RAMON Magnesium Oxide (Magnesium Oxide 400 Mg Tablet) 400 mg PO BIDPC [facility] Last Admin: 10/31/22 09:04 Dose: 400 mg Documented By: RAMON Meclizine HCl (Meclizine Hcl 25 Mg Tablet) 25 mg PO Q8H PRN PRN Reason: Vertigo Metoprolol Succinate (Metoprolol Succinate Er 25 Mg Tab.Er.24h) 75 mg PO DAILY [facility]; Protocol Last Admin: 10/31/22 08:54 Dose: 75 mg Documented By: RAMON Multivitamins/Vitamin C (Multivitamin Tablet) 1 tab PO DAILY [facility] Last Admin: 10/31/22 08:54 Dose: 1 tab Documented By: RAMON Ondansetron HCl (Ondansetron Hcl 4 Mg/2 Ml Vial) 4 mg IVPUSH Q8H PRN PRN Reason: Nausea and Vomiting Pharmacy Consult (Consult Rx Etoh Phenob Im/Po) 1 each MISCELLANE ONCE PRN; Pro tocol PRN Reason: Consult order Phenobarbital (Phenobarbital 15 Mg Tablet) 45 mg PO BID [facility]; Protocol Stop: 11/01/22 21:01 Last Admin: 10/31/22 08:53 Dose: 45 mg Documented By: RAMON Phenobarbital (Phenobarbital 15 Mg Tablet) 15 mg PO BID [facility]; Protocol Stop: 11/03/22 21:01 Phenobarbital (Phenobarbital 15 Mg Tablet) 15 mg PO DAILY [facility]; Protocol Stop: 11/05/22 09:01 Sodium Chloride (0.9 % Sodium Chloride Flush 3 Ml Syringe) 3 ml IVFLUSH QSHIFT [facility] Last Admin: 10/31/22 08:55 Dose: 3 ml Documented By: RAMON Torsemide (Torsemide 20 Mg Tablet) 40 mg PO DAILY [facility]; Protocol Last Admin: 10/31/22 08:53 Dose: 40 mg Documented By: RAMON Labs 10/31/22 06:03 10/31/22 06:03 Labs: Laboratory Results - last 24 hr 10/30/22 10/31/22 10/31/22 04:54 06:03 06:03 MCV 88.5 MCH 28.6 MCHC 32.3 RDW 17.9 H Plt Count 93 L MPV 10.1 Immature Gran % (Auto) 0.2 Neut % (Auto) 58.7 Lymph % (Auto) 27.8 Garrett % (Auto) 8.6 Eos % (Auto) 4.1 H Baso % (Auto) 0.6 Lymph # (Auto) 1.8 Garrett # (Auto) 0.5 Eos # (Auto) 0.3 Baso # (Auto) 0.0 Abs Immat Gran (auto) 0.01 Absolute Neuts (auto) 3.7 Absolute Nucleated RBC 0.000 Nucleated RBC % (auto) 0.0 Anion Gap 13 Estim Creat Clear Calc 118.9 Estimated GFR > 60 Random Glucose 85 Estimat Average Glucose 82 Hemoglobin A1c % 4.5 Calcium 7.9 L Magnesium 1.5 L Assessment and Plan (1) Alcohol use disorder: Status: Acute (2) Nonhealing nonsurgical wound: Status: Acute (3) Anemia: Status: Acute Plan Patient with htn, ckd, ascending aortic dilitation, iron deficiency anemia, hld, chronic venous stasis dermatitis, etoh use disorder, history of DVT and severe obesity with BMI >37 admitted for evaluation of multiple falls with nonhealing scalp laceration and alcohol use disorder/withdrawal. 1.Alcohol use disorder -CIWA protocol as ordered -Addiction med consult -IV thiamine x 3 days. Continue PO folic acid -Monitor on telemetry 2.Thrombocytopenia -likely related to alcohol use -monitor platelet count 3.Nonhealing right scalp laceration/right-sided parietal SDH -[facility] neuro surgery ... No need for acute intervention. Follow-up clinically -repeat head CT this morning shows stability of hematoma -general surgery consulted for evaluation of nonhealing right scalp laceration with friable edges 4.Lauro II decubitus ulcer bilateral buttock-present on arrival -appreciate GI input -barrier cream and repositioning q.2h Full code SCPs Full code Requires ongoing hospitalization for phenobarb protocol secondary to alcohol withdrawal Time Spent With Patient Time: Total time managing care of this patient today ____ minutes. Quality Stroke Does the patient have a stroke diagnosis?: No VTE Prior VTE?: No VTE Risk Level:: Medical - moderate - high VTE Device Contraindication: N/A - Device Ordered VTE Drug Contraindication: Treatment Not Indicated
[2022-10-31 16:00] VITALS: BP 142/58; PULSE 68; RESP 18; TEMP 36.9; O2SAT 98
--- NOTE | 2022-10-31 16:01 | HO.WOUNDCONS ---
History of Present Illness Data of Consult Service Date: 10/31/22 Requesting physician: Sharon Reyes Primary Care Provider: Samantha Gonzales MD [facility] Reason for consult: Scalp wound This is a pleasant 62-year-old gentleman with a history of alcohol dependence who was shopping at the grocery store about 6 weeks ago and had a seizure. He fell and sustained a scalp laceration. He was transported to [facility] for further evaluation and treatment. The scalp laceration was sutured on 09/22/22. Since that time, he has had a number of additional falls. He has been diagnosed with bilateral subdural hematomas not requiring surgical intervention. The scalp laceration has reopened. Timing of this is unclear. He reports ongoing leakage from the wound but has no complaints of pain, odor or fever. He has continued to consume significant amounts of alcohol. Two nights ago, he fell at home and was brought to the emergency room for evaluation. He was admitted for further evaluation and treatment of alcohol use disorder, chronic vertigo and the scalp wound. Currently, he has no complaints of headache or dizziness. He reports ongoing drainage from the scalp laceration. He was evaluated by Dr. Jacobo of surgery, who recommended further evaluation and treatment by the Wound Care Service. Review of Systems Constitutional: Constitutional: Denies chills, Reports frequent falls and Denies headache(s) ENT: Reports vertigo and Denies headache(s) Cardiovascular: Cardiovascular: Denies chest pain and Denies dyspnea Respiratory: Respiratory: Denies dyspnea Neurologic: Reports vertigo, Reports frequent falls and Denies headache(s) [facility] Medical History Alcohol use disorder Alcoholic steatohepatitis Anemia Anemia Ascending aortic aneurysm Chronic ulcer of leg Chronic venous stasis History of DVT of lower extremity History of rhabdomyolysis HTN (hypertension) Hx of lower gastrointestinal bleeding Hx of sepsis Hyperlipidemia DEBORAH (obstructive sleep apnea) Seborrheic dermatitis Family History Mother Dementia Maternal Grandmother Dementia Surgical History Hx of colonoscopy Social History Household Members: Family Housing: Apartment Do you presently have visiting nurse or other home services: No Alcohol intake: current Alcohol intake frequency: a few times a week Alcohol type: hard liquor Patient Tobacco Use Status: Never used Tobacco Advance Directives Date on File: 04/13/22 service: No Current occupational status: disabled Meds Allergies Allergy/AdvReac Type Severity Reaction Status Date / Time azithromycin [AZITHROMYCIN] Allergy Severe FACIAL Verified 11/30/21 09:19 SWELLING hydrochlorothiazide [HCTZ] Allergy Severe Facial Verified 04/13/22 12:11 Swelling Active Medications: Current Medications Acetaminophen (Acetaminophen 325 Mg Tablet) 650 mg PO Q6H PRN PRN Reason: Pain, Mild (Pain Scale 1-3) Allopurinol (Allopurinol 300 Mg Tablet) 300 mg PO DAILY [facility] Last Admin: 10/31/22 08:54 Dose: 300 mg Cyanocobalamin (Cyanocobalamin (Vitamin B-12) 1,000 Mcg Tablet) 1,000 mcg PO DAILY [facility] Last Admin: 10/31/22 08:54 Dose: 1,000 mcg Ferrous Sulfate (Ferrous Sulfate 324 Mg Tablet.Dr) 324 mg PO DAILY [facility] Last Admin: 10/31/22 08:54 Dose: 324 mg Folic Acid (Folic Acid 1 Mg Tablet) 1 mg PO DAILY [facility] Last Admin: 10/31/22 08:54 Dose: 1 mg Lactated Ringer's (Lr) 1,000 mls @ 80 mls/hr IVCONT .[id number] [facility] Last Admin: 10/31/22 08:55 Dose: 80 mls/hr Thiamine HCl 100 mg/ Sodium (Chloride) 101 mls @ 202 mls/hr IV DAILY [facility] Stop: 11/01/22 09:29 Last Infusion: 10/31/22 11:03 Dose: Infused Magnesium Oxide (Magnesium Oxide 400 Mg Tablet) 400 mg PO BIDPC [facility] Last Admin: 10/31/22 09:04 Dose: 400 mg Meclizine HCl (Meclizine Hcl 25 Mg Tablet) 25 mg PO Q8H PRN PRN Reason: Vertigo Metoprolol Succinate (Metoprolol Succinate Er 25 Mg Tab.Er.24h) 75 mg PO DAILY [facility]; Protocol Last Admin: 10/31/22 08:54 Dose: 75 mg Multivitamins/Vitamin C (Multivitamin Tablet) 1 tab PO DAILY [facility] Last Admin: 10/31/22 08:54 Dose: 1 tab Ondansetron HCl (Ondansetron Hcl 4 Mg/2 Ml Vial) 4 mg IVPUSH Q8H PRN PRN Reason: Nausea and Vomiting Pharmacy Consult (Consult Rx Etoh Phenob Im/Po) 1 each MISCELLANE ONCE PRN; Protocol PRN Reason: Consult order Phenobarbital (Phenobarbital 15 Mg Tablet) 45 mg PO BID [facility]; Protocol Stop: 11/01/22 21:01 Last Admin: 10/31/22 08:53 Dose: 45 mg Phenobarbital (Phenobarbital 15 Mg Tablet) 15 mg PO BID [facility]; Protocol Stop: 11/03/22 21:01 Phenobarbital (Phenobarbital 15 Mg Tablet) 15 mg PO DAILY [facility]; Protocol Stop: 11/05/22 09:01 Sodium Chloride (0.9 % Sodium Chloride Flush 3 Ml Syringe) 3 ml IVFLUSH QSHIFT [facility] Last Admin: 10/31/22 08:55 Dose: 3 ml Torsemide (Torsemide 20 Mg Tablet) 40 mg PO DAILY [facility]; Protocol Last Admin: 10/31/22 08:53 Dose: 40 mg Home Medications Medication Instructions Recorded Confirmed Last Taken Type cyanocobalamin (vitamin B-12) 1,000 mcg PO DAILY 10/02/22 10/30/22 Unknown History 1,000 mcg tablet (Vitamin B-12) ferrous sulfate 325 mg (65 mg 325 mg PO DAILY 10/02/22 10/30/22 Unknown History iron) tablet folic acid 1 mg tablet 1 mg PO DAILY 10/02/22 10/30/22 Unknown History thiamine HCl (vitamin B1) 100 mg 100 mg PO DAILY 10/02/22 10/30/22 Unknown History tablet (Vitamin B-1) allopurinol 300 mg tablet 1 tab PO DAILY 10/30/22 10/30/22 Unknown History metoprolol succinate 50 mg 1.5 tab PO DAILY 10/30/22 10/30/22 Unknown History tablet,extended release 24 hr multivitamin with folic acid 400 1 tab PO DAILY 10/30/22 10/30/22 Unknown History mcg tablet (Daily-Gene (with folic acid)) torsemide 20 mg tablet 2 tab PO DAILY 10/30/22 10/30/22 Unknown History Physical Exam Vital Signs and Narrative: Vital Signs: Last Vital Signs Temp 98.6 F 10/31/22 07:56 Pulse 71 10/31/22 07:56 Resp 18 10/31/22 07:56 BP 141/78 H 10/31/22 07:56 Pulse Ox 98 10/31/22 07:56 O2 Del Method 10/31/22 07:56 BMI result Body Mass Index 37.8 Const: General: cooperative, comfortable and alert HEENT: Other: Stellate wound vertex of scalp extending into deep subcutaneous tissues. No surrounding erythema. Results Labs 10/31/22 06:03 10/31/22 06:03 Labs: Laboratory Results - last 24 hr 10/30/22 10/31/22 10/31/22 04:54 06:03 06:03 MCV 88.5 MCH 28.6 MCHC 32.3 RDW 17.9 H Plt Count 93 L MPV 10.1 Immature Gran % (Auto) 0.2 Neut % (Auto) 58.7 Lymph % (Auto) 27.8 [place] % (Auto) 8.6 Eos % (Auto) 4.1 H Baso % (Auto) 0.6 Lymph # (Auto) 1.8 [place] # (Auto) 0.5 Eos # (Auto) 0.3 Baso # (Auto) 0.0 Abs Immat Gran (auto) 0.01 Absolute Neuts (auto) 3.7 Absolute Nucleated RBC 0.000 Nucleated RBC % (auto) 0.0 Anion Gap 13 Estim Creat Clear Calc 118.9 Estimated GFR > 60 Random Glucose 85 Estimat Average Glucose 82 Hemoglobin A1c % 4.5 Calcium 7.9 L Magnesium 1.5 L Assessment and Plan (1) Laceration of scalp: Status: Acute Plan 62-year-old male with history of alcohol use disorder and frequent falls, recent seizure, vertigo who has delayed healing of a scalp laceration that he sustained approximately 6 weeks ago. The laceration was closed primarily in the emergency department, but has reopened. Use of a wound VAC could be considered, but he does not appear to be a good candidate given his medical history. Will initiate treatment with Hydrofera Blue dressings, to be changed every other day. Orders written. Recommend follow-up in the Wound Clinic on discharge. Thank you for asking the Wound Service to participate in his care. Please call if any further evaluation is required during his inpatient stay. Time Spent With Patient Time: Total time managing care of this patient today ____ minutes.
--- NOTE | 2022-10-31 16:37 | MHC.CM.PN ---
PT eval today, rec Home self care. DP home self care via [facility].
[2022-10-31 19:40] VITALS: BP 127/75; PULSE 60; RESP 18; TEMP 36.5; O2SAT 100
[2022-11-01] MEDS: Lactated Ringers 1,000 ML 80 ML IVCONT (01:38)
[2022-11-01 03:16] VITALS: BP 142/71; PULSE 56; RESP 18; TEMP 36.4; O2SAT 100
[2022-11-01 07:07] LABS: MANUAL DIFF FLAG NO
[2022-11-01 07:14] LABS: Basophils Absolute Auto 0.1 X10*3/uL (0.0-0.2); Basophils Percent Auto 1.3 % (0-2); Eosinophils Absolute Auto 0.2 X10*3/uL (0.0-0.4); Eosinophils Percent Auto 3.5 % (0-4); Hematocrit 31.2 % (42.0-52.0); Hemoglobin 9.9 g/dl (14.0-18.0); Imm Gran Abs Auto 0.01 X10*3/uL (0.00-0.03); Imm Gran Pct Auto 0.2 % (0.0-0.4); Lymphocytes Absolute Auto 2.2 X10*3/uL (1.2-4.9); Lymphocytes Percent Auto 36.6 % (20-40); Mean Corpuscular HGB Conc 31.7 g/dl (31.0-36.0); Mean Corpuscular Hemoglobin 28.4 pg (27.0-33.0); Mean Corpuscular Volume 89.4 fL (80.0-98.0); Mean Platelet Volume 9.4 fL (9.4-12.4); Monocytes Absolute Auto 0.7 X10*3/uL (0.1-1.2); Monocytes Percent Auto 10.7 % (2-11); Neutrophils Absolute Auto 2.9 x10*3/uL (2.0-8.3); Neutrophils Percent Auto 47.7 % (45-73); Platelet Count 115 X10*3/uL (160-400); Red Blood Count 3.49 X10*6/uL (4.60-5.80); Red Cell Distribution Width 17.5 % (11.0-16.0); White Blood Count 6.1 X10*3/uL (4.8-10.8)
[2022-11-01 07:28] VITALS: BP 155/74; PULSE 55; TEMP 36.6; O2SAT 100
[2022-11-01 07:28] LABS: Alanine Aminotransferase 9 U/L (0-40); Albumin Level 3.2 g/dL (3.5-5.0); Alkaline Phosphatase 99 U/L (39-117); Anion Gap 13 (12-20); Aspartate Amino Transferase 17 U/L (5-37); Blood Urea Nitrogen 7 mg/dL (9-16); Calcium 7.9 mg/dL (8.4-10.2); Carbon Dioxide 27 mmol/L (22-29); Chloride 99 mmol/L (96-108); Creatinine Clr Calc Pharmacy 105.2; Estimated Glomerular Filt Rate > 60; Glucose Fasting 83 mg/dL (60-99); Potassium 3.2 mmol/L (3.3-5.1); Sodium 136 mmol/L (135-145); Total Protein 5.9 g/dL (6.5-8.0)
[2022-11-01] MEDS: Ferrous Sulfate 324 MG TABLET.DR PO (08:56)
[2022-11-01] MEDS: Metoprolol Succinate ER 25 MG TAB.ER.24H 75 MG PO (08:56)
[2022-11-01] MEDS: Torsemide 20 MG TABLET 40 MG PO (08:56)
[2022-11-01] MEDS: Cyanocobalamin (Vitamin B-12) 1,000 MCG TABLET 1000 MCG PO (08:56)
[2022-11-01] MEDS: allopurinoL 300 MG TABLET PO (08:56)
[2022-11-01] MEDS: Thiamine HCL 100 MG in 0.9 % Sodium Chloride 100 ML 202 MG IV (08:57)
[2022-11-01] MEDS: Folic Acid 1 MG TABLET PO (08:57)
[2022-11-01] MEDS: PHENobarbitaL 15 MG TABLET 45 MG PO ×2 (08:57→20:16)
[2022-11-01] MEDS: Multivitamin TABLET 1 TAB PO (08:57)
[2022-11-01] MEDS: 0.9 % Sodium Chloride Flush 3 ML SYRINGE IVFLUSH ×3 (08:57→20:21)
[2022-11-01] MEDS: Magnesium Oxide 400 MG TABLET PO ×2 (09:15→16:59)
[2022-11-01 11:25] LABS: CDiff Gene PCR NEGATIVE (Negative)
[2022-11-01 12:08] LABS: Adenovirus F 40/41 Not Detected (Not Detect.); Astrovirus Not Detected (Not Detect.); Campylobacter Not Detected (Not Detect.); Cryptosporidium Not Detected (Not Detect.); Cyclospora cayetanensis Not Detected (Not Detect.); E. coli EAEC Not Detected (Not Detect.); E. coli EPEC Not Detected (Not Detect.); E. coli ETEC Not Detected (Not Detect.); E. coli STEC Not Detected (Not Detect.); Entamoeba histolytica Not Detected (Not Detect.); Giardia lamblia Not Detected (Not Detect.); Norovirus GI/GII Not Detected (Not Detect.); Plesiomonas shigelloides Not Detected (Not Detect.); Rotavirus A Not Detected (Not Detect.); Salmonella Not Detected (Not Detect.); Sapovirus Not Detected (Not Detect.); Shigella sp./EIEC Not Detected (Not Detect.); Vibrio Not Detected (Not Detect.); Vibrio Cholerae Not Detected (Not Detect.); Yersinia enterocolitica Not Detected (Not Detect.)
--- NOTE | 2022-11-01 13:53 | MHC.RECOVRN ---
This comic writer met w/ patient, patient alert, sitting up in bed watching t.v. Patient states at 20 years old, went to [facility] for detox. Patient reports occasionally drinks alcohol, pt states 1-2 x's weekly having less then 3 mixed drinks. T/W reviewed [facility], recovery supports, pt agreeable to review at bedside. Patient reports goal is to minimize use. Patient states would like to have one drink on social occasion. T/W to drop off recovery supports at bedside, pt agreeable to read more about [facility] and community recovery supports, encouraged to f/u with Addiction/Recovery team. Patient minimizing impact of alcohol use, llacks insight into how ETOH impacting health, despite clinical presentation.
--- NOTE | 2022-11-01 14:32 | HO.PM.IMPN ---
Subjective Subjective Date of Service: 11/01/22 Interval History: No acute issues overnight. CIWA score 0 this a.m.. Review of Systems Denies chest pain Denies shortness of breath Denies nausea vomiting diarrhea Denies fever chills Physical Exam Vital Signs: Vital Signs: Last Vital Signs Temp 98 F 11/01/22 07:28 Pulse 55 11/01/22 07:28 Resp 18 11/01/22 03:16 BP 155/74 H 11/01/22 07:28 Pulse Ox 100 11/01/22 07:28 O2 Del Method 11/01/22 07:28 BMI result Body Mass Index 37.8 Const: Other: Awake alert oriented x3 no acute distress HEENT: Other: See photos done in ER into exam Resp: Other: Clear to auscultation bilaterally no rales rhonchi or wheezes Cardio: Other: No S4; positive S1-S2; no S3 murmurs rubs or gallops GI: Other: Soft nontender nondistended normoactive bowel sounds Extrem: Other: No edema bilaterally Objective Data Active Medications Acetaminophen (Acetaminophen 325 Mg Tablet) 650 mg PO Q6H PRN PRN Reason: Pain, Mild (Pain Scale 1-3) Allopurinol (Allopurinol 300 Mg Tablet) 300 mg PO DAILY [facility] Last Admin: 11/01/22 08:56 Dose: 300 mg Documented By: RAMON Cyanocobalamin (Cyanocobalamin (Vitamin B-12) 1,000 Mcg Tablet) 1,000 mcg PO DAILY [facility] Last Admin: 11/01/22 08:56 Dose: 1,000 mcg Documented By: RAMON Ferrous Sulfate (Ferrous Sulfate 324 Mg Tablet.) 324 mg PO DAILY [facility] Last Admin: 11/01/22 08:56 Dose: 324 mg Documented By: RAMON Folic Acid (Folic Acid 1 Mg Tablet) 1 mg PO DAILY [facility] Last Admin: 11/01/22 08:57 Dose: 1 mg Documented By: RAMON Magnesium Oxide (Magnesium Oxide 400 Mg Tablet) 400 mg PO BIDPC [facility] Last Admin: 11/01/22 09:15 Dose: 400 mg Documented By: RAMON Meclizine HCl (Meclizine Hcl 25 Mg Tablet) 25 mg PO Q8H PRN PRN Reason: Vertigo Metoprolol Succinate (Metoprolol Succinate Er 25 Mg Tab.Er.24h) 75 mg PO DAILY [facility]; Protocol Last Admin: 11/01/22 08:56 Dose: 75 mg Documented By: RAMON Multivitamins/Vitamin C (Multivitamin Tablet) 1 tab PO DAILY [facility] Last Admin: 11/01/22 08:57 Dose: 1 tab Documented By: RAMON Ondansetron HCl (Ondansetron Hcl 4 Mg/2 Ml Vial) 4 mg IVPUSH Q8H PRN PRN Reason: Nausea and Vomiting Pharmacy Consult (Consult Rx Etoh Phenob Im/Po) 1 each MISCELLANE ONCE PRN; Protocol PRN Reason: Consult order Phenobarbital (Phenobarbital 15 Mg Tablet) 45 mg PO BID [facility]; Protocol Stop: 11/01/22 21:01 Last Admin: 11/01/22 08:57 Dose: 45 mg Documented By: RAMON Phenobarbital (Phenobarbital 15 Mg Tablet) 15 mg PO BID [facility]; Protocol Stop: 11/03/22 21:01 Phenobarbital (Phenobarbital 15 Mg Tablet) 15 mg PO DAILY [facility]; Protocol Stop: 11/05/22 09:01 Sodium Chloride (0.9 % Sodium Chloride Flush 3 Ml Syringe) 3 ml IVFLUSH QSHIFT [facility] Last Admin: 11/01/22 08:57 Dose: 3 ml Documented By: RAMON Torsemide (Torsemide 20 Mg Tablet) 40 mg PO DAILY [facility]; Protocol Last Admin: 11/01/22 08:56 Dose: 40 mg Documented By: RAMON Labs 11/01/22 05:49 11/01/22 05:49 Labs: Laboratory Results - last 24 hr 11/01/22 11/01/22 11/01/22 05:49 05:49 10:16 MCV 89.4 MCH 28.4 MCHC 31.7 RDW 17.5 H Plt Count 115 L MPV 9.4 Immature Gran % (Auto) 0.2 Neut % (Auto) 47.7 Lymph % (Auto) 36.6 [place] % (Auto) 10.7 Eos % (Auto) 3.5 Baso % (Auto) 1.3 Lymph # (Auto) 2.2 [place] # (Auto) 0.7 Eos # (Auto) 0.2 Baso # (Auto) 0.1 Abs Immat Gran (auto) 0.01 Absolute Neuts (auto) 2.9 Absolute Nucleated RBC 0.000 Nucleated RBC % (auto) 0.0 Anion Gap 13 Estim Creat Clear Calc 105.2 Estimated GFR > 60 Fasting Glucose 83 Calcium 7.9 L Total Bilirubin 1.0 AST 17 ALT 9 Alkaline Phosphatase 99 Total Protein 5.9 L Albumin 3.2 L Stl C. cayetanensis PCR Stool Rotavirus A PCR Stl Adenov F 40/41 PCR Stool Astrovirus (PCR) Stool Campylobacter PCR Stool Cryptosporidium PCR Stl Sh Tox Pr E STEC PCR Stool E coli O157 PCR Stl Enterotoxigenic E PCR Stool EPEC (PCR) Stool EAEC (PCR) Stl E. histolytica PCR Stool Giardia Lamblia PCR Stl P. shigelloides PCR Stool Salmonella PCR Stool Sapovirus (PCR) Stl Shigella/EIEC PCR St Y.enterocolitica PCR Stool Vibrio (PCR) Stl Vibrio cholerae PCR Stl Norovirus GI/GII PCR C. difficile Tox B Gene NEGATIVE 11/01/22 10:16 MCV MCH MCHC RDW Plt Count MPV Immature Gran % (Auto) Neut % (Auto) Lymph % (Auto) [place] % (Auto) Eos % (Auto) Baso % (Auto) Lymph # (Auto) [place] # (Auto) Eos # (Auto) Baso # (Auto) Abs Immat Gran (auto) Absolute Neuts (auto) Absolute Nucleated RBC Nucleated RBC % (auto) Anion Gap Estim Creat Clear Calc Estimated GFR Fasting Glucose Calcium Total Bilirubin AST ALT Alkaline Phosphatase Total Protein Albumin Stl C. cayetanensis PCR Not Detected Stool Rotavirus A PCR Not Detected Stl Adenov F 40 PCR Not Detected Stool Astrovirus (PCR) Not Detected Stool Campylobacter PCR Not Detected Stool Cryptosporidium PCR Not Detected Stl Sh Tox Pr E STEC PCR Not Detected Stool E coli O157 PCR Not applicable Stl Enterotoxigenic E PCR Not Detected Stool EPEC (PCR) Not Detected Stool EAEC (PCR) Not Detected Stl E. histolytica PCR Not Detected Stool Giardia Lamblia PCR Not Detected Stl P. shigelloides PCR Not Detected Stool Salmonella PCR Not Detected Stool Sapovirus (PCR) Not Detected Stl Shigella/EIEC PCR Not Detected St Y.enterocolitica PCR Not Detected Stool Vibrio (PCR) Not Detected Stl Vibrio cholerae PCR Not Detected Stl Norovirus GI/GII PCR Not Detected C. difficile Tox B Gene Assessment and Plan (1) Alcohol use disorder: Status: Acute (2) Laceration of scalp: Status: Acute Plan Patient with htn, ckd, ascending aortic dilitation, iron deficiency anemia, hld, chronic venous stasis dermatitis, etoh use disorder, history of DVT and severe obesity with BMI >37 admitted for evaluation of multiple falls with nonhealing scalp laceration and alcohol use disorder/withdrawal. 1.Alcohol use disorder -CIWA protocol as ordered -Addiction med consult -IV thiamine x 3 days. Continue PO folic acid -Monitor on telemetry 2.Thrombocytopenia -likely related to alcohol use -monitor platelet count 3.Nonhealing right scalp laceration/right-sided parietal SDH -hydrofera blue dressing as ordered -follow-up with wound care as outpatient 4.Lauro II decubitus ulcer bilateral buttock-present on arrival -appreciate GI input -barrier cream and repositioning q.2h Full code SCPs Full code Requires ongoing hospitalization for phenobarb protocol secondary to alcohol withdrawal Time Spent With Patient Time: Total time managing care of this patient today ____ minutes. Quality Stroke Does the patient have a stroke diagnosis?: No VTE Prior VTE?: No VTE Risk Level:: Medical - moderate - high VTE Device Contraindication: N/A - Device Ordered VTE Drug Contraindication: Treatment Not Indicated
[2022-11-01 14:48] VITALS: BP 116/74; PULSE 61; RESP 16; TEMP 36.1; O2SAT 99
--- NOTE | 2022-11-01 14:52 | P.EN_ITS ---
Event Note Date of Service: 11/01/22 Event Note: Addiction consult Please see manager economic note dated 11/01/2022 Time Spent With Patient Time: Total time managing care of this patient today ____ minutes.
--- NOTE | 2022-11-01 14:52 | PM.EVENT ---
Event Note Date of Service: 11/01/22 Event Note: Addiction consult Please see group sales coordinator note dated 11/01/2022 Time Spent With Patient Time: Total time managing care of this patient today ____ minutes.
[2022-11-01 20:00] VITALS: BP 110/63; PULSE 64; RESP 18; TEMP 36.9; O2SAT 97
[2022-11-02 03:28] VITALS: BP 113/68; PULSE 57; RESP 18; TEMP 36.4; O2SAT 96
[2022-11-02 06:28] LABS: MANUAL DIFF FLAG NO
[2022-11-02 06:32] LABS: Basophils Absolute Auto 0.1 X10*3/uL (0.0-0.2); Basophils Percent Auto 0.9 % (0-2); Eosinophils Absolute Auto 0.2 X10*3/uL (0.0-0.4); Eosinophils Percent Auto 2.6 % (0-4); Hematocrit 28.4 % (42.0-52.0); Hemoglobin 9.4 g/dl (14.0-18.0); Imm Gran Abs Auto 0.02 X10*3/uL (0.00-0.03); Imm Gran Pct Auto 0.3 % (0.0-0.4); Lymphocytes Absolute Auto 2.3 X10*3/uL (1.2-4.9); Lymphocytes Percent Auto 32.2 % (20-40); Mean Corpuscular HGB Conc 33.1 g/dl (31.0-36.0); Mean Corpuscular Hemoglobin 28.7 pg (27.0-33.0); Mean Corpuscular Volume 86.9 fL (80.0-98.0); Mean Platelet Volume 9.3 fL (9.4-12.4); Monocytes Absolute Auto 0.8 X10*3/uL (0.1-1.2); Monocytes Percent Auto 11.4 % (2-11); Neutrophils Absolute Auto 3.7 x10*3/uL (2.0-8.3); Neutrophils Percent Auto 52.6 % (45-73); Red Blood Count 3.27 X10*6/uL (4.60-5.80); Red Cell Distribution Width 17.5 % (11.0-16.0)
[2022-11-02 06:35] LABS: Platelet Count 99 X10*3/uL (160-400)
[2022-11-02 06:57] LABS: Alanine Aminotransferase 7 U/L (0-40); Albumin Level 2.9 g/dL (3.5-5.0); Alkaline Phosphatase 95 U/L (39-117); Anion Gap 13 (12-20); Aspartate Amino Transferase 15 U/L (5-37); Bilirubin Total 0.7 mg/dL (0.0-1.0); Blood Urea Nitrogen 8 mg/dL (9-16); Calcium 7.7 mg/dL (8.4-10.2); Carbon Dioxide 29 mmol/L (22-29); Chloride 96 mmol/L (96-108); Creatinine Clr Calc Pharmacy 74.4; Estimated Glomerular Filt Rate 60; Glucose Fasting 98 mg/dL (60-99); Potassium 3.3 mmol/L (3.3-5.1); Sodium 135 mmol/L (135-145); Total Protein 5.6 g/dL (6.5-8.0)
[2022-11-02 07:07] VITALS: BP 129/62; PULSE 58; RESP 18; TEMP 36.6; O2SAT 99
--- NOTE | 2022-11-02 07:41 | P.CDIM_ITS ---
PROVIDER RESPONSE TEXT: To clarify, the appropriate diagnosis supported by the clinical indicators: Hypomagnesemia or other etiology of lab findings: Hypo magnesemia secondary to nausea vomiting and di arrhea QUERY TEXT: PHYSICIAN'S DOCUMENTATION REQUEST Date of Query: 11/01/2022 09:34 AM EDT Patient Name: Mohan Gonzalez Admit Date: 10/30/2022 Dear Aman Rogers, A review of the medical record indicates additional documentation may be needed. Please review below and update the documentation accordingly. Clinical Indicators: Lab findings: magnesium 1.3 L Alcohol abuse, N/V Based on the above, could you clarify the appropriate diagnosis, if significant, that supports the ab ove abnormalities and additional evaluation, monitoring, and/or treatment rendered: Hypomagnesemia or other etiology of lab findings Unable to determine Other (explain) Clinically unable to determine (explain) Thank you, Tuyet Cabral, CCS, CDIS Use of terms such as suspected, likely, concern for, or probable (associated with a specific diagnosi s that is being evaluated, monitored, or treated as if it exists) are acceptable and can be coded in the inpatient se tting, when documented at the time of discharge. Please use your independent medical judgment in providing your response. THIS QUERY IS PART OF THE PERMANENT MEDICAL RECORD
--- NOTE | 2022-11-02 07:41 | P.CDIM_ITS ---
PROVIDER RESPONSE TEXT: To clarify, the appropriate diagnosis supported by the clinical indicators: CKD, please provide stage QUERY TEXT: PHYSICIAN'S DOCUMENTATION REQUEST Date of Query: 11/01/2022 11:38 AM EDT Patient Name: Mohan Gonzalez Admit Date: 10/30/2022 Dear Aman Rogers, A review of the medical record indicates additional documentation may be needed. Please review below and update the documentation accordingly. Clinical Indicators: PMH: CKD PN: History of CKD Please clarify which of the following accurately represents the patient's renal status: Stage CKD, please provide stage Unable to be determined Other Other (explain) Clinically unable to determine (explain) Thank you, Tuyet Cabral, CCS, CDIS Use of terms such as suspected, likely, concern for, or probable (associated with a specific diagnosi s that is being evaluated, monitored, or treated as if it exists) are acceptable and can be coded in the inpatient se tting, when documented at the time of discharge. Please use your independent medical judgment in providing your response. THIS QUERY IS PART OF THE PERMANENT MEDICAL RECORD
[2022-11-02] MEDS: Torsemide 20 MG TABLET 40 MG PO (09:34)
[2022-11-02] MEDS: Cyanocobalamin (Vitamin B-12) 1,000 MCG TABLET 1000 MCG PO (09:34)
[2022-11-02] MEDS: PHENobarbitaL 15 MG TABLET PO (09:34)
[2022-11-02] MEDS: Ferrous Sulfate 324 MG TABLET.DR PO (09:35)
[2022-11-02] MEDS: Metoprolol Succinate ER 25 MG TAB.ER.24H 75 MG PO (09:35)
[2022-11-02] MEDS: allopurinoL 300 MG TABLET PO (09:35)
[2022-11-02] MEDS: Magnesium Oxide 400 MG TABLET PO (09:35)
[2022-11-02] MEDS: Folic Acid 1 MG TABLET PO (09:35)
[2022-11-02] MEDS: Multivitamin TABLET 1 TAB PO (09:35)
[2022-11-02] MEDS: 0.9 % Sodium Chloride Flush 3 ML SYRINGE IVFLUSH (09:36)
--- NOTE | 2022-11-02 11:17 | PM.DS ---
DS: Providers Provider Date of Service: 11/02/22 Date of admission: 10/30/22 12:52 Date of discharge: 11/02/22 Primary care physician: Samantha Gonzales MD Consults: 10/30/22 12:51 Consult to General Surgery Routine Consulting Provider: [facility] Reason for consultation: friable wound scalp, pressure ulcer buttock 10/30/22 13:25 Addiction Medicine Routine Consulting Provider: Addiction Covering Reason for consultation: etoh abuse 10/30/22 19:14 Consult to Wound Care Routine Consulting Provider: Morena Smith Reason for consultation: chronic scalp wound DS: Diagnosis Discharge Diagnosis (1) Alcohol use disorder: Status: Acute (2) Laceration of scalp: Status: Acute (3) Bilateral subdural hematomas: Status: Acute DS: Summary Hospital Course Hospital Course: Patient with htn, ckd, ascending aortic dilitation, iron deficiency anemia, hld, chronic venous stasis dermatitis, etoh use disorder, history of DVT and severe obesity with BMI >37 presented to ED via EMS from home after sustaining a fall. The patient states he has vertigo as baseline and will lose balance and fall. He has had multiple falls in the last 6 weeks with at least 2 admissions to [facility]. On 09/21 had an unwitnessed fall with LOC and was reported to have a brief tonic/clonic seizure prior to EMS arrival on that day. He was treated for acute alcohol withdrawal.? He did sustain laceration to the right side of the head with Head CT at that time showing bilateral subdural hematomas.? Neurosurgery was consulted with follow-up head CT recommended but no acute neurosurgical intervention required.? He states since then he has had several falls without loss of consciousness including this morning where he felt unsteady and fell sideways into a pile of laundry.? Denies head strike or loss of consciousness.? However EMS did note blood to the right scalp from existing wound.? The patient states he had about 4 cups of vodka last night but has not had any alcohol for 3 days prior to this as he has had generalized abdominal pain with multiple episodes of diarrhea daily, 2 episodes of vomiting, nausea, and decreased appetite.? Denies any hematemesis, melena, hematochezia.? No fevers or chills.? Denies eating any bad foods or recent travel.? No sick contacts. Denies any lightheadedness, shortness of breath, palpitations, chest pain.? On arrival, vital signs stable.? Orthostatic vital signs negative.? No leukocytosis.? H/H stable.? Renal function electrolyte levels normal except for hypo magnesium E of 1.3.? There is also new thrombocytopenia of 80.? Troponin unremarkable.? UA unremarkable.? Head CT negative for any acute intracranial findings but does show right posterior parasagittal parietal calvarial sub gluteal hematoma with associated scalp ulceration.? CT of the cervical spine is negative for any acute fracture or malalignment. Hospital Course Patient admitted to the general medical floor and placed on phenobarb protocol. High as CIWA score was 3 and on the day of discharge he will was 0. He was in consultation by Wound Care who recommended hydrofera Blue dressings; due to insurance issues however no [facility]NA will pick him up for insurance changes. A call has been placed to the wound care center and he will follow up early next week with wound care and they will dictate his course. He will be discharged with a dry dressing and instructed how to change this until he is seen by wound care. He is strongly advised to not drink alcohol Time Spent with Patient Time attestation: Total time managing care of this patient today ____ minutes. Discharge coordination time: Greater than 30 minutes Quality: Safe Use of Opioids Does Pt have an Active Cancer Diagnosis on the Problem List?: No Quality: Stroke Does the patient have a stroke diagnosis?: No Physical Exam Vital Signs: Vital Signs: Last Vital Signs Temp 98 F 11/02/22 07:07 Pulse 58 11/02/22 07:07 Resp 18 11/02/22 07:07 BP 129/62 11/02/22 07:07 Pulse Ox 99 11/02/22 07:07 O2 Del Method 11/02/22 07:07 BMI result Body Mass Index 37.8 Const: Other: Awake alert oriented x3 no acute distress HEENT: Other: See photos done in ER into exam Resp: Other: Clear to auscultation bilaterally no rales rhonchi or wheezes Cardio: Other: No S4; positive S1-S2; no S3 murmurs rubs or gallops GI: Other: Soft nontender nondistended normoactive bowel sounds Extrem: Other: No edema bilaterally DS: Data Data Completed and Pending Labs on day of discharge: Laboratory Results - last 24 hr 11/01/22 11/01/22 11/02/22 10:16 10:16 06:20 WBC 7.0 RBC 3.27 L Hgb 9.4 L Hct 28.4 L MCV 86.9 MCH 28.7 MCHC 33.1 RDW 17.5 H Plt Count 99 L MPV 9.3 L Immature Gran % (Auto) 0.3 Neut % (Auto) 52.6 Lymph % (Auto) 32.2 [place] % (Auto) 11.4 H Eos % (Auto) 2.6 Baso % (Auto) 0.9 Lymph # (Auto) 2.3 [place] # (Auto) 0.8 Eos # (Auto) 0.2 Baso # (Auto) 0.1 Abs Immat Gran (auto) 0.02 Absolute Neuts (auto) 3.7 Absolute Nucleated RBC 0.000 Nucleated RBC % (auto) 0.0 Sodium Potassium Chloride Carbon Dioxide Anion Gap BUN Creatinine Estim Creat Clear Calc Estimated GFR Fasting Glucose Calcium Total Bilirubin AST ALT Alkaline Phosphatase Total Protein Albumin Stl C. cayetanensis PCR Not Detected Stool Rotavirus A PCR Not Detected Stl Adenov F 40/41 PCR Not Detected Stool Astrovirus (PCR) Not Detected Stool Campylobacter PCR Not Detected Stool Cryptosporidium PCR Not Detected Stl Sh Tox Pr E STEC PCR Not Detected Stool E coli O157 PCR Not applicable Stl Enterotoxigenic E PCR Not Detected Stool EPEC (PCR) Not Detected Stool EAEC (PCR) Not Detected Stl E. histolytica PCR Not Detected Stool Giardia Lamblia PCR Not Detected Stl P. shigelloides PCR Not Detected Stool Salmonella PCR Not Detected Stool Sapovirus (PCR) Not Detected Stl Shigella/EIEC PCR Not Detected St Y.enterocolitica PCR Not Detected Stool Vibrio (PCR) Not Detected Stl Vibrio cholerae PCR Not Detected Stl Norovirus GI/GII PCR Not Detected C. difficile Tox B Gene NEGATIVE 11/02/22 06:20 WBC RBC Hgb Hct MCV MCH MCHC RDW Plt Count MPV Immature Gran % (Auto) Neut % (Auto) Lymph % (Auto) [place] % (Auto) Eos % (Auto) Baso % (Auto) Lymph # (Auto) [place] # (Auto) Eos # (Auto) Baso # (Auto) Abs Immat Gran (auto) Absolute Neuts (auto) Absolute Nucleated RBC Nucleated RBC % (auto) Sodium 135 Potassium 3.3 Chloride 96 Carbon Dioxide 29 Anion Gap 13 BUN 8 L Creatinine 1.23 Estim Creat Clear Calc 74.4 Estimated GFR 60 Fasting Glucose 98 Calcium 7.7 L Total Bilirubin 0.7 AST 15 ALT 7 Alkaline Phosphatase 95 Total Protein 5.6 L Albumin 2.9 L Stl C. cayetanensis PCR Stool Rotavirus A PCR Stl Adenov F 40/41 PCR Stool Astrovirus (PCR) Stool Campylobacter PCR Stool Cryptosporidium PCR Stl Sh Tox Pr E STEC PCR Stool E coli O157 PCR Stl Enterotoxigenic E PCR Stool EPEC (PCR) Stool EAEC (PCR) Stl E. histolytica PCR Stool Giardia Lamblia PCR Stl P. shigelloides PCR Stool Salmonella PCR Stool Sapovirus (PCR) Stl Shigella/EIEC PCR St Y.enterocolitica PCR Stool Vibrio (PCR) Stl Vibrio cholerae PCR Stl Norovirus GI/GII PCR C. difficile Tox B Gene Discharge Plan Discharge Anticipated Discharge Date/Time: 11/02/22 10:46 Patient Disposition: Home Health Service Discharge Diagnosis: Nonhealing scalp wound/alcohol abuse Referrals: Samantha Gonzales MD [Primary Care Provider] - 1 Week Discharge Medications: Continued cyanocobalamin (vitamin B-12) [Vitamin B-12] 1,000 mcg Tablet 1,000 mcg PO DAILY thiamine HCl (vitamin B1) [Vitamin B-1] 100 mg Tablet 100 mg PO DAILY folic acid 1 mg tablet 1 mg PO DAILY ferrous sulfate 325 mg (65 mg iron) tablet 325 mg PO DAILY torsemide 20 mg tablet 2 tab PO DAILY metoprolol succinate 50 mg tablet extended release 24 hr 1.5 tab PO DAILY allopurinol 300 mg tablet 1 tab PO DAILY multivitamin with folic acid [Daily-Gene (with folic acid)] 400 mcg tablet 1 tab PO DAILY Discharge Orders: Discharge Order (Routine); Ordered 11/02/22 Ordered By: Aman Rogers Diet: Advance to usual diet Activity on Discharge: As tolerated Stand Alone Forms: Patient Portal Discharge page Care Plan Goals: VNA will change dressing daily to your head wound Health Concerns: You will need to follow-up with wound clinic within 1 week Plan of Treatment: Avoid alcohol Assessment: See discharge summary
--- NOTE | 2022-11-02 12:03 | MHC.CM.PN ---
Addendum entered by Juju Best 11/02/22 12:08: PT REPORTS HE CAN GET A RIDE HE IS AWARE CM CAN ASSIST IF NEEDED Original Note: PT WILL DC HOME TODAY SEVERAL REFERRALS WERE MADE FOR VNA THERE ARE NO AGENCIES ACCEPTING PT WILL FOLLOW UP WITH [facility]OUND [facility] [place] [facility] [place]SP[place]
== END 2022-11-02 13:00 | disposition home health service (06) | DRG 813 ==
LOC: HO.ED 06:44 → HO.EDOVER 12:57 → HO.S3 10-31 02:53
PROVIDERS: Surgery; Admitting Provider Physician Assistant; Emergency Provider Emergency Medicine; PCP Family Medicine; Visit Provider Hospitalist
DX: T81.33XA Disruption of traumatic injury wound repair, initial encounter (principal); L89.312 Pressure ulcer of right buttock, stage 2; D69.59 Other secondary thrombocytopenia; L89.322 Pressure ulcer of left buttock, stage 2; D63.1 Anemia in chronic kidney disease; L89.151 Pressure ulcer of sacral region, stage 1; E66.01 Morbid (severe) obesity due to excess calories; E78.5 Hyperlipidemia, unspecified; G47.33 Obstructive sleep apnea (adult) (pediatric); Y90.8 Blood alcohol level of 240 mg/100 ml or more; R29.6 Repeated falls; D50.9 Iron deficiency anemia, unspecified; I12.9 Hypertensive chronic kidney disease with stage 1 through stage 4 chronic kidney disease, or unspecified chronic kidney disease; N18.9 Chronic kidney disease, unspecified; F10.139 Alcohol abuse with withdrawal, unspecified; E83.42 Hypomagnesemia; Z91.81 History of falling; Z20.822 Contact with and (suspected) exposure to COVID-19; Z68.37 Body mass index [BMI] 37.0-37.9, adult; Z86.718 Personal history of other venous thrombosis and embolism; Z88.1 Allergy status to other antibiotic agents; Z88.8 Allergy status to other drugs, medicaments and biological substances; Z79.899 Other long term (current) drug therapy
CPT/HCPCS: 36415; 70450; 72125; 80048; 80053; 80076; 80307; 81003; 82077; 83036; 83735; 84484; 85025; 85610; 87493; 87507; 87635; 93005; 97116; 97161; 99285; J2560; J3411; J3475

== ENCOUNTER 2022-11-05 10:49 | Outpatient (REF) | payer MEDICAID, SELFPAY ==
[2022-11-05 12:56] LABS: Anion Gap 16 (12-20); Blood Urea Nitrogen 18 mg/dL (9-16); Calcium 8.2 mg/dL (8.4-10.2); Carbon Dioxide 28 mmol/L (22-29); Chloride 97 mmol/L (96-108); Estimated Glomerular Filt Rate 54; Sodium 137 mmol/L (135-145)
[2022-11-05 13:07] LABS: Creatinine Urine 382.47 mg/dL; Microalbum/Creatinine Ratio Ur 8.1 ug/mg cr
== END 2022-11-05 10:50 | disposition home or self-care (01) ==
LOC: HO.LAB 10:49
PROVIDERS: PCP Family Medicine; Visit Provider Internal Medicine Nephrology
DX: I12.9 Hypertensive chronic kidney disease with stage 1 through stage 4 chronic kidney disease, or unspecified chronic kidney disease (principal); N18.31 Chronic kidney disease, stage 3a
CPT/HCPCS: 36415; 80051; 82043; 82310; 82565; 84520

== ENCOUNTER 2022-11-05 11:21 | Outpatient (REF) | payer MEDICAID, SELFPAY ==
--- NOTE | ~2022-11-05 | US_ITS ---
EXAMINATION: US THYROID CLINICAL INFORMATION: Thyroid nodule. COMPARISON: None available. TECHNIQUE: Linear transducer grayscale and color Doppler examination with attention to the region of the thyroid. FINDINGS: SIZE: Measurements of the thyroid lobes and nodules are given in sagittal, anteroposterior and transverse dimensions respectively. Right Thyroid Lobe: 6.0 x 3.1 x 3.4 cm, volume 33.1 mL. Parenchyma: The gland echotexture is heterogeneous. Thyroid vascularity is normal. Left Thyroid Lobe: 4.6 x 2.2 x 1.9 cm, volume 10.1 mL. Parenchyma: The gland echotexture is heterogeneous. Thyroid vascularity is normal. Isthmus: 0.2 cm in maximum AP dimension. Estimated total number of nodules greater than or equal to 1 cm: 3. Disk Recordist nodules are described as follows: 1. Location: Right mid. Size: 3.0 x 2.7 x 3.1 cm, volume 12.9 mL. Nodule characteristics: Composition: Solid (2). Echogenicity: Isoechoic (1). Shape: Not taller than wide (0). Margins: Ill-defined (0). Echogenic Foci: Comet-tail artifacts (0). ACR TI-RADS total points: 3 ACR TI-RADS category: 3 2. Location: Right inferior. Size: 2.1 x 1.5 x 2.3 cm, volume 3.9 mL. Nodule characteristics: Composition: Solid/almost completely solid (2). Echogenicity: Hypoechoic (2). Shape: Not taller than wide (0). Margins: Smooth (0). Echogenic Foci: Punctate echogenic foci (3). ACR TI-RADS total points: 7 ACR TI-RADS category: 5 3. Location: Right medial/mid. Size: 0.6 x 0.5 x 0.5 cm, volume 0.1 mL. Nodule characteristics: Composition: Solid (2). Echogenicity: Isoechoic (1). Shape: Not taller than wide (0). Margins: Smooth (0). Echogenic Foci: None (0). ACR TI-RADS total points: 3 ACR TI-RADS category: 3 4. Location: Left superior/mid. Size: 2.8 x 1.6 x 1.6 cm, volume 4.0 mL. Nodule characteristics: Composition: Solid/almost completely solid (2). Echogenicity: Isoechoic (1). Shape: Not taller than wide (0). Margins: Ill-defined (0). Echogenic Foci: None (0). ACR TI-RADS total points: 3 ACR TI-RADS category: 3 NODES: No lymphadenopathy is seen in the tissue surrounding the thyroid gland. US/US thyroid IMPRESSION: Heterogeneous enlarged left thyroid lobe. There are multiple bilateral thyroid nodules. The lower pole right nodule is suspicious based on TI-RADS and total points. Recommend ultrasound-guided fine-needle biopsy. ACR TI-RADS RECOMMENDATION REFERENCE: Ultrasound-guided fine-needle aspiration, followup ultrasound, no further follow up. * TR1 (0 point) and TR2 (2 points): No FNA or follow up. * TR3 (3 points): FNA if more than or equal to 2.5 cm in maximum dimension, followup ultrasound in 1, 3 and 5 years if 1.5 to 2.4 cm in maximum dimension. * TR4 (4-6 points): FNA if more than or equal to 1.5 cm in maximum dimension, followup ultrasound in 1, 2, 3 and 5 years if 1 to 1.4 cm in maximum dimension. * TR5 (more than or equal to 7 points): FNA if more than or equal to 1 cm in maximum dimension, followup ultrasound every year for 5 years if 0.5 to 0.9 cm in maximum dimension. * TR3, TR4 or TR5 nodules that are below the size threshold for followup receive no follow up.
== END 2022-11-05 11:22 | disposition home or self-care (01) ==
LOC: HO.US 11:21
PROVIDERS: PCP Family Medicine; Visit Provider Family Medicine
DX: E04.1 Nontoxic single thyroid nodule (principal)
CPT/HCPCS: 76536

== ENCOUNTER 2022-11-12 09:34 | Outpatient (REF) | payer MEDICAID, SELFPAY ==
--- NOTE | ~2022-11-12 | CT_ITS ---
CT HEAD WITHOUT CONTRAST CLINICAL INFORMATION: Subdural hematoma. COMPARISON: Head CT 10/30/2022. TECHNIQUE: Contiguous axial imaging was performed from the skull base to vertex without intravenous administration of contrast. This CT examination was performed using dose optimization techniques as appropriate, variously including the following: *Automated exposure control *Adjustment of mA and/or kV according to patient size (this includes techniques or standardized protocols for targeted exams where dose is matched to indication/reason for exam; i.e. extremities or head) *Use of iterative reconstruction technique FINDINGS: There is no subdural hematoma. Decreasing soft tissue swelling associated with a known laceration involving the high right posterior scalp. There is no intracranial hemorrhage, hydrocephalus, extra-axial surface collection, midline shift, or other herniation pattern. Parekh to white matter differentiation is diffusely maintained without evidence of an evolved acute territorial infarct. The basilar cisterns are preserved. No significant soft tissue abnormality. No acute osseous abnormality. The paranasal sinuses and the mastoid air cells are well aerated. CT/CT head/brain wo IV con IMPRESSION: There is no subdural hematoma. Decreasing soft tissue swelling associated with a known laceration involving the high right posterior scalp.
== END 2022-11-12 09:35 | disposition home or self-care (01) ==
LOC: HO.CT 09:34
PROVIDERS: Visit Provider Family Medicine
DX: S06.5XAA Traumatic subdural hemorrhage with loss of consciousness status unknown, initial encounter (principal)
CPT/HCPCS: 70450

== ENCOUNTER 2022-11-14 09:47 | Outpatient (RCR) | payer MEDICAID, SELFPAY | END 2023-01-16 16:18 | disposition home or self-care (01) | LOC: HO.WCC 09:47 | PROVIDERS: PCP Family Medicine; Visit Provider Surgery | DX: S01.01XA Laceration without foreign body of scalp, initial encounter (principal); I12.9 Hypertensive chronic kidney disease with stage 1 through stage 4 chronic kidney disease, or unspecified chronic kidney disease; N18.9 Chronic kidney disease, unspecified; I73.9 Peripheral vascular disease, unspecified; F10.20 Alcohol dependence, uncomplicated; Z86.718 Personal history of other venous thrombosis and embolism | CPT/HCPCS: 11042; 88304; 99212 ==

== ENCOUNTER 2022-11-27 10:21 | Outpatient (REF) | payer MEDICAID, SELFPAY ==
--- NOTE | ~2022-11-27 | XR_ITS ---
EXAMINATION: XR ANKLE, RIGHT CLINICAL INFORMATION: Right ankle pain COMPARISON: Previous x-ray November [address] January 2022 TECHNIQUE: AP, lateral, and mortise views of the right ankle. FINDINGS: Bone alignment is normal. No fracture or dislocation is seen. There is periosteal thickening of the distal shafts of the tibia and fibula. This is similar to previous exams. The ankle mortise is normal. There is diffuse soft tissue swelling. There are calcaneal spurs. XR/XR ankle RT min 3V IMPRESSION: Stable exam. Periosteal thickening of the distal shafts of the tibia and fibula, diffuse soft tissue swelling calcaneal spurs similar to previous exams.
== END 2022-11-27 10:22 | disposition home or self-care (01) ==
LOC: HO.XRAY 10:21
PROVIDERS: PCP Family Medicine; Visit Provider Family Medicine
DX: M25.571 Pain in right ankle and joints of right foot (principal); Z87.39 Personal history of other diseases of the musculoskeletal system and connective tissue
CPT/HCPCS: 73610

== ENCOUNTER 2022-12-27 11:12 | Outpatient (REF) | payer MEDICAID, SELFPAY ==
--- NOTE | ~2022-12-27 | MR_ITS ---
EXAMINATION: MRI ABDOMEN WITH AND WITHOUT CONTRAST CLINICAL INFORMATION: KIDNEY LESION COMPARISON: Prior studies including the 10/02/2022 study TECHNIQUE: Multiple routine MRI sequences through the abdomen were obtained on a high-field 1.5Tesla MRI. Pre-and postcontrast images with 10 mL of Gadavist intravenous contrast were obtained. This included a dynamic contrast-enhanced technique. FINDINGS: Lung bases: The visualized lung bases are unremarkable. Liver: The liver is normal in size, shape, and signal. No suspicious focal hepatic lesions seen. Specifically no suspicious arterial phase enhancing lesions or suspicious washout of contrast on later phases. No biliary ductal dilatation. Gallbladder: Gallbladder is unremarkable. No suspicious gallstones or filling defects. No gallbladder wall thickening or pericholecystic inflammatory changes. Pancreas: Pancreas is homogeneous in signal. No pancreatic ductal dilatation or obstruction. No peripancreatic inflammatory changes or fluid. Spleen: Unremarkable Adrenals: Unremarkable Kidneys: Right: The right kidney measures approximately 11.1 cm in length. There are tiny T2 bright nonenhancing cortical cysts seen the largest in the anterior mid to upper pole measures 0.9 cm in maximal diameter. No obstructive changes. Left: The left kidney measures 11.0 cm in length. In the lateral mid to upper pole of the left kidney there is a T2 bright complex cyst with layering T1 bright material in the dependent aspect. This measures 2.6 cm in maximal diameter. I do not appreciate any significant enhancement to this hemorrhagic cyst. The main finding of note is a complex enhancing heterogeneously T2 bright heterogeneously enhancing 3.5 x 2.7 cm complex mass in the lower pole. This corresponds with the enhancing mass seen on the prior CT scan. When measured in similar orientation this is likely not definitely changed in size from that 10/02/[address] appearance and MRI appearance would be consistent with a renal cell carcinoma. No other suspicious findings in the left kidney. No obstructive changes. Other: No bulky adenopathy MR/MR abdomen wo/w con IMPRESSION: 1. There is a 3.5 cm heterogeneously enhancing complex mass lesion in the lower pole of the left kidney. This corresponds with the enhancing mass seen on the prior CT scan. As reported on the prior abdominal CT scan report, the CT and now MRI appearance would be most consistent with a renal cell carcinoma. Further evaluation of this likely renal cell carcinoma would be warranted. Urology consult should be made if this has not already occurred. If the lesion is not resected, tissue diagnosis would be strongly recommended to confirm the true nature of this likely renal cell carcinoma. 2. There is a 2.6 cm hemorrhagic cyst in the lateral mid to upper pole of the left kidney with layering T1 bright material. I do not appreciate any suspicious enhancement to this complex cyst.
== END 2022-12-27 11:13 | disposition home or self-care (01) ==
LOC: HO.MRI 11:12
PROVIDERS: PCP Family Medicine; Visit Provider Family Medicine
DX: N28.9 Disorder of kidney and ureter, unspecified (principal)
CPT/HCPCS: 74183; A9585

== ENCOUNTER 2022-12-28 10:02 | Outpatient (REF) | payer MEDICAID, SELFPAY ==
--- NOTE | ~2022-12-28 | US_ITS ---
EXAMINATION: Ultrasound-guided fine-needle aspiration CLINICAL INFORMATION: Suspicious thyroid nodule COMPARISON: Previous thyroid ultrasound October 2022 TECHNIQUE: Procedure and risks and benefits including bleeding and infection were discussed with the patient and informed consent was obtained. The lower midline neck was prepped and draped in the usual sterile fashion. The skin and soft tissues were anesthetized with 1% lidocaine plain. Using a 25-gauge needle, access to the nodule in the inferior right lobe was obtained. 3 separate 25g FNA specimens were obtained. FINDINGS: There is a 2 x 1.5 x 2 cm nodule in the inferior right lobe that was targeted for fine-needle aspiration. US/US guided fine needle asp IMPRESSION: Ultrasound-guided right thyroid inferior nodule fine-needle aspiration.
[2022-12-28] MEDS: Lidocaine HCl 1 % MPF 5 ML VIAL SUBCUT (11:50)
== END 2022-12-28 10:03 | disposition home or self-care (01) ==
LOC: HO.US 10:02
PROVIDERS: PCP Family Medicine; Visit Provider Family Medicine
DX: E04.1 Nontoxic single thyroid nodule (principal)
CPT/HCPCS: 10005; 88172; 88173; 88177; 88305

== ENCOUNTER 2023-01-23 09:25 | Emergency (ER) | payer MEDICAID, SELFPAY ==
--- NOTE | ~2023-01-23 | XR_ITS ---
EXAMINATION: XR HAND, LEFT CLINICAL INFORMATION: Left hand swelling COMPARISON: None available. TECHNIQUE: PA, lateral, and oblique views of the left hand. FINDINGS: There is no evidence of fracture or dislocation. There is swelling of the second and less prominent third fingers and swelling can the dorsum of the hand. No foreign bodies identified in the soft tissues. 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 The changes of degenerative osteoarthritis in the first metacarpophalangeal and carpometacarpal joint. XR/XR hand LT min 3V IMPRESSION: Soft tissue swelling can mild degenerative changes as described
[2023-01-23 09:48] VITALS: BP 180/90; PULSE 92; RESP 18; TEMP 36.7; O2SAT 99; BMI 38.1
--- NOTE | 2023-01-23 12:30 | ED_ITS ---
HPI - General Adult General Chief complaint: General Medical Stated complaint: Swollen hand/ throat pain Time Seen by Provider: 01/23/23 11:34 Source: patient and RN notes reviewed Mode of arrival: ambulatory Limitations: no limitations History of Present Illness HPI narrative: This is a 62-year-old male, with a past medical history of high blood pressure, gout who presents emergency department with complaints of left hand swelling and sore throat today. Patient reports that he was seen by his primary care nadege alfaro yesterday as he noticed a rash on the surface of his hands. His primary care physician told him to just keep an eye on things . Patient reports he woke up this morning with chills and increased swelling to his left hand. patient reports that he has a history of gout however typically his gout symptoms occur in his lower extremities. Patient also concerned as he has had left-sided throat pain. He had a needle aspiration done December 28, 2022 for his thyroid which returned as normal. No fevers, headaches, visual changes. No other complaints or concerns at this time. MD complaint: Left hand swelling Relieving factors: immobilization Exacerbating factors: none Associated symptoms: fever/chills Treatments prior to arrival: none Related Data Home Medications Medication Instructions Recorded Confirmed cyanocobalamin (vitamin B-12) 1,000 mcg PO DAILY 10/02/22 11/30/22 1,000 mcg tablet (Vitamin B-12) ferrous sulfate 325 mg (65 mg 325 mg PO DAILY 10/02/22 11/30/22 iron) tablet folic acid 1 mg tablet 1 mg PO DAILY 10/02/22 11/30/22 thiamine HCl (vitamin B1) 100 mg 100 mg PO DAILY 10/02/22 11/30/22 tablet (Vitamin B-1) allopurinol 300 mg tablet 1 tab PO DAILY 10/30/22 11/30/22 metoprolol succinate 50 mg 1.5 tab PO DAILY 10/30/22 11/30/22 tablet,extended release 24 hr multivitamin with folic acid 400 1 tab PO DAILY 10/30/22 11/30/22 mcg tablet (Daily-Gene (with folic acid)) torsemide 20 mg tablet 2 tab PO DAILY 10/30/22 11/30/22 Previous Rx's Medication Instructions Recorded cephalexin 500 mg capsule 500 mg PO QID 7 days #28 caps 01/23/23 prednisone 20 mg tablet 40 mg PO DAILY 5 days #10 tabs 01/23/23 Allergies Allergy/AdvReac Type Severity Reaction Status Date / Time azithromycin [AZITHROMYCIN] Allergy Severe FACIAL Verified 11/30/21 09:19 SWELLING hydrochlorothiazide [HCTZ] Allergy Severe Facial Verified 04/13/22 12:11 Swelling PMFSH Past Medical History Medical History Alcohol use disorder Alcoholic steatohepatitis Anemia Anemia Ascending aortic aneurysm Chronic ulcer of leg Chronic venous stasis History of DVT of lower extremity History of rhabdomyolysis HTN (hypertension) Hx of lower gastrointestinal bleeding Hx of sepsis Hyperlipidemia DEBORAH (obstructive sleep apnea) Seborrheic dermatitis Surgical History Hx of colonoscopy Family History Family History Mother Dementia Maternal Grandmother Dementia Social History Social History (Updated 11/30/22 @ 09:04 by Kemi Monroy) Household Members: Family Housing: Apartment Do you presently have visiting nurse or other home services: No Alcohol intake: current Alcohol intake frequency: a few times a week Alcohol type: hard liquor Patient Tobacco Use Status: Never used Tobacco Advance Directives: Yes Advance Directives Information Provided: Yes Advance Directives on File: Yes Advance Directives Date on File: 04/13/22 service: No Current occupational status: disabled Physical Exam ED Vital Signs: Vital Signs - 24 hr 01/23/23 09:48 01/23/23 12:46 01/23/23 15:27 Temperature 98.1 F 99.4 F Pulse Rate 92 75 Respiratory Rate 18 19 Blood Pressure 180/90 H 184/106 H 165/86 H Pulse Oximetry 99 100 Oxygen Delivery Method Room Air Room Air BMI result Body Mass Index 38.1 General: Awake, alert, and oriented X3. No acute distress. HEENT: Normal inspection, oropharynx is non erythematous, tonsils are surgical ly absent, no uvula edema. Uvula is midline, patient tolerated secretions well without difficulty CVS: Normal heart rate and rhythm. Pulses normal. S1-S2 regular Respiratory: No respiratory distress, lungs clear to auscultation bilaterally Skin: Warm, dry, no rashes noted to exposed skin. Normal skin color. Normal skin turgor. Extremities: left hand dorsal aspect, moderately edematous and erythematous, warm. Able to flex and extend all digits however decreased range of motion due to edema. Neuro: Oriented X 3. No motor deficit. No sensory deficit. Course Reevaluation(s) Reevaluation #1: patient with no leukocytosis, patient is normocytic anemia, platelets are around his baseline, ESR elevated at 54, CRP elevated at 5.43. Lactic 0.7 Left hand x-ray revealing soft tissue swelling and mild degenerative changes. Discussed with patient that patient may be having a atypical presentation of a gouty flare up or overlying cellulitis. Will treat with prednisone and Keflex. Advised to complete the entire course in given strict return report precautions if any of his symptoms worsen. Patient understands and agrees with plan. Patient is tolerating p.o. without difficulty. Patient stable for discharge. Time: 15:45 Medical Decision Making Medical Decision Making MDM Narrative: 62-year-old male presenting to the emergency department with complaints of left hand swelling redness since this morning. He has had a rash on his bilateral hands for several days and woke up this morning with left hand swelling. patient is mildly hypertensive, reports that he did not take his high blood pressure medication today. Patient also reports that he has some soreness on the right side of his neck which started today. He is concerned as he had a fine-needle aspiration performed on his neck about 1 month ago. On examination patient has palpable anterior cervical lymphadenopathy, oropharynx is non erythematous with no tonsillar hypertrophy, uvula is midline. Left hand is edematous and erythematous and warm. Given history of gout is unclear whether not this is a gout flare up or cellulitis. plan: labs, left hand x-ray Differential Diagnosis Differential Diagnoses: The differential diagnosis associated with the presentation includes left hand cellulitis, gouty arthritis, contact dermatitis Lab Data 01/23/23 13:08 01/23/23 13:08 Labs: Lab Results 01/23/23 01/23/23 01/23/23 Range/Units 13:08 13:08 13:08 WBC 7.7 (4.8-10.8) X10*3/uL RBC 3.76 L (4.60-5.80) X10*6/uL Hgb 10.5 L (14.0-18.0) g/dl Hct 32.0 L (42.0-52.0) % MCV 85.1 (80.0-98.0) fL MCH 27.9 (27.0-33.0) pg MCHC 32.8 (31.0-36.0) g/dl RDW 15.4 (11.0-16.0) % Plt Count 86 L D (160-400) X10*3/uL MPV 9.5 (9.4-12.4) fL Immature Gran % (Auto) 0.4 (0.0-0.4) % Neut % (Auto) 66.7 (45-73) % Lymph % (Auto) 20.2 (20-40) % [place] % (Auto) 9.9 (2-11) % Eos % (Auto) 2.0 (0-4) % Baso % (Auto) 0.8 (0-2) % Lymph # (Auto) 1.6 (1.2-4.9) X10*3/uL [place] # (Auto) 0.8 (0.1-1.2) X10*3/uL Eos # (Auto) 0.2 (0.0-0.4) X10*3/uL Baso # (Auto) 0.1 (0.0-0.2) X10*3/uL Abs Immat Gran (auto) 0.03 (0.00-0.03) X10*3/uL Absolute Neuts (auto) 5.1 (2.0-8.3) x10*3/uL Absolute Nucleated RBC 0.000 (0.0-0.012) X10*3/uL Nucleated RBC % (auto) 0.0 (0.0-0.2) /100WBC ESR 54 H (0-15) MM/HR Sodium 139 (135-145) mmol/L Potassium 3.3 (3.3-5.1) mmol/L Chloride 102 (96-108) mmol/L Carbon Dioxide 24 (22-29) mmol/L Anion Gap 16 (12-20) BUN 13 (9-16) mg/dL Creatinine 0.84 (0.5-1.4) mg/dL Estim Creat Clear Calc 109.3 Estimated GFR > 60 Random Glucose 96 (60-115) mg/dL Lactic Acid (0.5-2.0) mmol/L Calcium 8.8 D (8.4-10.2) mg/dL C-Reactive Protein 5.43 H (< or = 0.50) mg/dL 01/23/23 Range/Units 13:08 WBC (4.8-10.8) X10*3/uL RBC (4.60-5.80) X10*6/uL Hgb (14.0-18.0) g/dl Hct (42.0-52.0) % MCV (80.0-98.0) fL MCH (27.0-33.0) pg MCHC (31.0-36.0) g/dl RDW (11.0-16.0) % Plt Count (160-400) X10*3/uL MPV (9.4-12.4) fL Immature Gran % (Auto) (0.0-0.4) % Neut % (Auto) (45-73) % Lymph % (Auto) (20-40) % [place] % (Auto) (2-11) % Eos % (Auto) (0-4) % Baso % (Auto) (0-2) % Lymph # (Auto) (1.2-4.9) X10*3/uL [place] # (Auto) (0.1-1.2) X10*3/uL Eos # (Auto) (0.0-0.4) X10*3/uL Baso # (Auto) (0.0-0.2) X10*3/uL Abs Immat Gran (auto) (0.00-0.03) X10*3/uL Absolute Neuts (auto) (2.0-8.3) x10*3/uL Absolute Nucleated RBC (0.0-0.012) X10*3/uL Nucleated RBC % (auto) (0.0-0.2) /100WBC ESR (0-15) MM/HR Sodium (135-145) mmol/L Potassium (3.3-5.1) mmol/L Chloride (96-108) mmol/L Carbon Dioxide (22-29) mmol/L Anion Gap (12-20) BUN (9-16) mg/dL Creatinine (0.5-1.4) mg/dL Estim Creat Clear Calc Estimated GFR Random Glucose (60-115) mg/dL Lactic Acid 0.7 (0.5-2.0) mmol/L Calcium (8.4-10.2) mg/dL C-Reactive Protein (< or = 0.50) mg/dL Radiology Impression Discussion of test interpretation with radiology: I have reviewed the radiologist's reading. Radiologist Impression: EXAMINATION: XR HAND, LEFT CLINICAL INFORMATION: Left hand swelling? COMPARISON: None available.? TECHNIQUE: PA, lateral, and oblique views of the left hand. FINDINGS: There is no evidence of fracture or dislocation. There is swelling of the second and less prominent third fingers and swelling can the dorsum of the hand. No foreign bodies identified in the soft tissues. 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 The changes of degenerative osteoarthritis in the first metacarpophalangeal and carpometacarpal joint. ? XR/XR hand LT min 3V IMPRESSION: Soft tissue swelling can mild degenerative changes as described Dictated By: Neeta Jones MD Signed By: <Electronically signed by Neeta Jones MD in OV> 01/23/23 1412 Edi Developer: Discharge Plan Discharge Clinical Impression: Cellulitis Patient Disposition: Home, Self-Care Instructions: Cellulitis (ED) Additional Instructions: Take prescribed antibiotic as directed. Finish the whole course even if your feeling better. I am also putting you on a course of prednisone, this will help with the swelling. Please complete full course. Please return should any of your symptoms worsen, including fevers, worsening redness and swelling. Follow-up with your primary care physician this week. Prescriptions: New prednisone 20 mg tablet 40 mg PO DAILY 5 Days Qty: 10 0RF cephalexin 500 mg capsule 500 mg PO QID 7 Days Qty: 28 0RF No Action cyanocobalamin (vitamin B-12) [Vitamin B-12] 1,000 mcg Tablet 1,000 mcg PO DAILY thiamine HCl (vitamin B1) [Vitamin B-1] 100 mg Tablet 100 mg PO DAILY folic acid 1 mg tablet 1 mg PO DAILY ferrous sulfate 325 mg (65 mg iron) tablet 325 mg PO DAILY torsemide 20 mg tablet 2 tab PO DAILY metoprolol succinate 50 mg tablet extended release 24 hr 1.5 tab PO DAILY allopurinol 300 mg tablet 1 tab PO DAILY multivitamin with folic acid [Daily-Gene (with folic acid)] 400 mcg tablet 1 tab PO DAILY Discharge Date/Time: 01/23/23 15:40
[2023-01-23 12:46] VITALS: BP 184/106
--- NOTE | 2023-01-23 13:16 | PC.NURSE ---
20g Iv placed in right proximal AC- labs drawn including lactic and cultures. pt calm and cooperative, awaiting imaging and provider review call piña within reach. pt noted to be hypertensive 184/106 provider notified.
[2023-01-23 13:20] LABS: MANUAL DIFF FLAG NO
[2023-01-23 13:26] LABS: Basophils Absolute Auto 0.1 X10*3/uL (0.0-0.2); Basophils Percent Auto 0.8 % (0-2); Eosinophils Absolute Auto 0.2 X10*3/uL (0.0-0.4); Hemoglobin 10.5 g/dl (14.0-18.0); Imm Gran Abs Auto 0.03 X10*3/uL (0.00-0.03); Imm Gran Pct Auto 0.4 % (0.0-0.4); Lymphocytes Absolute Auto 1.6 X10*3/uL (1.2-4.9); Lymphocytes Percent Auto 20.2 % (20-40); Mean Corpuscular HGB Conc 32.8 g/dl (31.0-36.0); Mean Corpuscular Hemoglobin 27.9 pg (27.0-33.0); Mean Corpuscular Volume 85.1 fL (80.0-98.0); Mean Platelet Volume 9.5 fL (9.4-12.4); Monocytes Absolute Auto 0.8 X10*3/uL (0.1-1.2); Monocytes Percent Auto 9.9 % (2-11); Neutrophils Absolute Auto 5.1 x10*3/uL (2.0-8.3); Neutrophils Percent Auto 66.7 % (45-73); Red Blood Count 3.76 X10*6/uL (4.60-5.80); Red Cell Distribution Width 15.4 % (11.0-16.0); White Blood Count 7.7 X10*3/uL (4.8-10.8)
[2023-01-23 13:28] LABS: Platelet Count 86 X10*3/uL (160-400)
[2023-01-23 13:37] LABS: Lactic Acid 0.7 mmol/L (0.5-2.0)
--- NOTE | 2023-01-23 13:37 | PC.NURSE ---
pt reports that he has not been taking his b/p medication, sts everything that goes in, comes out pt sts he has had diarrhea for that past few days
[2023-01-23 13:40] LABS: Anion Gap 16 (12-20); Blood Urea Nitrogen 13 mg/dL (9-16); C Reactive Protein 5.43 mg/dL (< or = 0.50); Calcium 8.8 mg/dL (8.4-10.2); Carbon Dioxide 24 mmol/L (22-29); Chloride 102 mmol/L (96-108); Creatinine Clr Calc Pharmacy 109.3; Estimated Glomerular Filt Rate > 60; Glucose Random 96 mg/dL (60-115); Potassium 3.3 mmol/L (3.3-5.1); Sodium 139 mmol/L (135-145)
[2023-01-23 14:22] LABS: Erythrocyte Sedimentation Rate 54 MM/HR (0-15)
[2023-01-23 15:27] VITALS: BP 165/86; PULSE 75; RESP 19; TEMP 37.4; O2SAT 100
== END 2023-01-23 15:40 | disposition home or self-care (01) ==
PROVIDERS: Physician Assistant Medical; Emergency Provider Internal Medicine; PCP Family Medicine
DX: L03.114 Cellulitis of left upper limb (principal); R59.1 Generalized enlarged lymph nodes; I10 Essential (primary) hypertension; E78.5 Hyperlipidemia, unspecified; Z79.899 Other long term (current) drug therapy
CPT/HCPCS: 36415; 73130; 80048; 83605; 85025; 85652; 86140; 87040; 99283; 99284

== ENCOUNTER 2023-02-01 14:49 | Outpatient (AMB) | payer MEDICAID, SELFPAY ==
--- NOTE | 2023-02-01 15:34 | A.OFFVIS_ITS ---
Intake Intake Visit Reasons: L kidney Mass Intake Note: NEW Patient presents today to established treatment for L Kidney Mass Meds: None Allergies to Antibiotic: Azithromycin Blood Thinner: Torsemide Job Interviewer Required: No Accompanied by: Self / Same As Patient Allergies azithromycin [AZITHROMYCIN] Allergy (Severe, Verified 11/30/21 09:19) FACIAL SWELLING hydrochlorothiazide [HCTZ] Allergy (Severe, Verified 04/13/22 12:11) Facial Swelling HPI HPI Comments History of Present Illness Details Mohan is a 62-year-old male who presents to the office for evaluation of left kidney mass. 02/01/23-- In review of family practice physician note it includes history of alcohol abuse and has had at five significant falls since July 2022 all under the influence of alcohol. He had a subdural hematoma. He is been evaluated by nephrology for stage 3 CKD. He has history of chronic liver disease as well. In review of recent serum chemistry-- BUN is 13 and creatinine is 0.84. I reviewed CTAP results 10/02/22 and MRI abdomen results from 12/27/22. CTAP results reviewed--10/02/22--3.3 cm left lower pole mass suspicious of renal cell carcinoma. MRI abdomen--12/27/22-- confirms 3.5 x 2.7 cm complex enhancing mass in the left lower pole of the kidney. no bulky adenopathy noted. 2.6 cm hemorrhagic cyst in the lateral mid to upper pole of the left kidney. Evaluation today-- Blood: negative, leukocytes: negative. Treatment options discussed including referral for evaluation for partial nephrectomy Plan: Patient agrees and will be referred to Dr Khan. [facility] Medical History Alcohol use disorder Alcoholic steatohepatitis Anemia Anemia Ascending aortic aneurysm Chronic ulcer of leg Chronic venous stasis History of DVT of lower extremity History of rhabdomyolysis HTN (hypertension) Hx of lower gastrointestinal bleeding Hx of sepsis Hyperlipidemia DEBORAH (obstructive sleep apnea) Seborrheic dermatitis Surgical History Hx of colonoscopy Family History Mother Dementia Maternal Grandmother Dementia Social History (Updated 11/30/22 @ 09:04 by Kemi Monroy) Household Members: Family Housing: Apartment Do you presently have visiting nurse or other home services: No Alcohol intake: current Alcohol intake frequency: a few times a week Alcohol type: hard liquor Patient Tobacco Use Status: Never used Tobacco Use of substances other than those prescribed or required for medical reasons: No Have you been hit, kicked, punched, or otherwise hurt by someone within the past year? If so, by whom?: No Do you feel safe in your current relationship?: No Current Relationship Advance Directives: No Advance Directives Information Provided: No Advance Directives Date on File: 04/13/22 Do you have thoughts of harming others: None Do you have a plan to hurt others: No Plan Do you have the means to hurt others: No service: No Current occupational status: disabled Review of Systems Const All systems reviewed & are unremarkable except as noted in HPI and below Reports no additional complaints Eyes Reports no additional complaints ENT Reports no additional complaints Card Denies dyspnea Resp Denies cough and Denies dyspnea GI Reports no additional complaints Musc Reports no additional complaints Skin/Breast Denies rash and Denies unusual bruising Neuro Reports no additional complaints Psych Reports no additional complaints Endo Reports no additional complaints Jimenez/Lymph Reports no additional complaints Aller/Immun Reports no additional complaints Physical Exam Const General: no acute distress and well developed Orientation/consciousness: patient oriented x3 HEENT Head: Yes normocephalic and Yes atraumatic Eyes Conjunctivae: conjunctivae normal Neck Neck: Yes normal visual inspection Chest Chest palpation & inspection: normal inspection of the chest Resp Effort & Inspection: normal respiratory effort Cardio Rate: regular rate GI Inspection: Yes normal to inspection Neuro General: patient oriented x3 Extrem General: No pedal edema Psych Appearance: grossly normal Affect: normal affect Results AMB Urinalysis, Automated UA Leukoctes 0 Jarrett/uL Last Edit by BROOKLYN Branch on 02/01/23 15:56 UA Nitrite Negative Last Edit by BROOKLYN Branch on 02/01/23 15:56 UA Urobilinogen 0.2 mg/dL Last Edit by Jackie Gutierrez [facility] on 02/01/23 15:5 6 UA Protein 30 mg/dL Last Edit by Jackie Gutierrez A on 02/01/23 15:56 1+ Jackie Gutierrez 02/01/23 15:56 UA pH 6.0 Last Edit by Jackie Gutierrez A on 02/01/23 15:56 UA Blood 0 Wade/uL Last Edit by Jackie Gutierrez, A on 02/01/23 15:56 UA Specific [place] 1.020 Last Edit by Jackie Gutierrez [facility] on 02/01/23 15: 56 UA Ketone Negative Last Edit by Jackie Gutierrez [facility] on 02/01/23 15:56 UA Bilirubin 0 mg/dL Last Edit by Jackie Gutierrez [facility] on 02/01/23 15:56 UA Glucose 0 mg/dL Last Edit by Jackie Gutierrez [facility] on 02/01/23 15:56 Results Reviewed Results Reviewed: Laboratory Last Values Urine pH (Auto) 6.0 02/01/23 15:54 Specific [place] (Auto) 1.020 02/01/23 15:54 Urine Protein (Auto) 30 mg/dL 02/01/23 15:54 Glucose (UA)(Auto) 0 mg/dL 02/01/23 15:54 Urine Ketones (Auto) Negative 02/01/23 15:54 Urine Blood (Auto) 0 Wade/uL 02/01/23 15:54 Urine Nitrite (Auto) Negative 02/01/23 15:54 Urine Bilirubin (Auto) 0 mg/dL 02/01/23 15:54 Urine Urobilinogen (Auto) 0.2 mg/dL 02/01/23 15:54 Leukocyte Esterase (Auto) 0 Jarrett/uL 02/01/23 15:54 Date of Service: 10/02/22 ADDENDUMThere is a 3.3 cm left lower pole mass suspicious for RENAL CELL CARCINOMA. The cisterna chyle in the retrocrural space is prominent in diameter. In addition to enteric, bao hepatis, gastrohepatic ligament and precaval lymph nodes, there are prominent serpiginous densities in the retroperitoneum may represent prominent lymphatics. Abdominal/pelvic MRI is recommended for further evaluation. This critical result was discussed with Dr. Jones at 7:20 PM on the day of the exam and it was ascertained that the content and urgency of the report was understood at the time of direct communication. EXAMINATION: CT CHEST, ABDOMEN AND PELVIS WITH CONTRAST. CLINICAL INFORMATION: Reason for Exam trauma to abd fall ETOH . COMPARISON: No pertinent prior studies are available for comparison. TECHNIQUE: Multidetector volumetric imaging was performed from the thoracic inlet through the pubic symphysis following the administration of: Oral contrast: No Intravenous contrast: 85 mL Omnipaque 350 No contrast reaction reported Sagittal and coronal reformatted images were obtained on the technologist workstation. In addition, thin section, high resolution reconstruction, targeted reformatted images through the thoracic and lumbar spine were obtained with coronal and sagittal high resolution reformatted images as well. This CT examination was performed using dose optimization techniques as appropriate, variously including the following: *Automated exposure control *Adjustment of mA and/or kV according to patient size (this includes techniques or standardized protocols for targeted exams where dose is matched to indication/reason for exam; i.e. extremities or head) *Use of iterative reconstruction technique Total exam dose-length product 600 mGy-cm FINDINGS: CHEST: VASCULAR: The aorta is normal; no evidence of dissection, aneurysm, or traumatic aortic injury.? The central pulmonary arteries enhance normally. AORTIC ISTHMUS: Normal. MEDIASTINUM: No mediastinal fluid or hematoma.? No hilar or mediastinal lymphadenopathy. Small 7 mm right anterior preparacardiac lymph node. LUNG: No nodules, mass, or focal consolidation. PLEURA: No pleural effusion. No pneumothorax.? No pleural mass or thickening. CHEST WALL/AXILLA: Unremarkable. ABDOMEN/PELVIS : LIVER : The liver is enlarged measuring 21 cm in cephalocaudad dimension. No focal hepatic lesion or biliary ductal dilatation is present.? GALLBLADDER, AND BILIARY TREE The gallbladder is unremarkable with no evidence of radiopaque gallstones, gallbladder wall thickening, or obvious pericholecystic inflammatory changes. PANCREAS: Normal; no mass or surrounding fluid.? SPLEEN: Spleen is enlarged measuring 15 cm in greatest transverse dimension? ADRENAL GLANDS: Normal; no mass.? KIDNEYS AND URETERS: The kidneys are normal in size, shape, and attenuation. A benign Bosniak class I left renal cyst is present which needs no additional imaging or follow-up. No hydronephrosis, hydroureter, or calculi. ? URINARY BLADDER: No focal mass or wall thickening seen.? No bladder calculi.? GASTROINTESTINAL TRACT: Stomach and small bowel non-dilated. There is colonic diverticula without diverticulitis. No colonic wall thickening or pericolonic inflammatory changes.? Normal appendix. VASCULAR STRUCTURES: There is no evidence of aortic or iliac injury. The inferior vena cava is intact. ACTIVE BLEEDING: No. LYMPH NODES: Diane changes are present in the small bowel mesentery with small lymph nodes. Small bao hepatis and gastrohepatic ligament lymph nodes are present as well (for example 1.4 cm bao hepatis lymph node 6:30).? PELVIC VISCERA: Prostate and seminal vesicles appear normal FREE FLUID: None. ABDOMINAL WALL: No significant hernia is appreciated.? OSSEOUS STRUCTURES : No clavicle or scapula fracture.? No displaced rib fracture seen. No sternal fracture seen. Normal sagittal alignment of the thoracic and lumbar spine.? Vertebral body and disc heights are maintained; no compression fracture. Mild degenerative changes are present in the spine. Posterior elements intact. No sacral or pelvic fracture,? The visualized hips are intact. Mild degenerative changes are present in both hips. IMPRESSION: 1.? No evidence of a traumatic injury in the chest, abdomen or pelvis. 2.? Hepatosplenomegaly. 3.? Diane changes in the small bowel mesentery with small prominent lymph nodes in the bao hepatis and gastrohepatic ligament. Date of Service: 12/27/22 ADDENDUMThis critical result was discussed with Faviola Azul RN at 01/16/2023 9:20 AM and it was ascertained that the content and urgency of the report was understood at the time of direct communication. EXAMINATION: MRI ABDOMEN WITH AND WITHOUT CONTRAST CLINICAL INFORMATION: KIDNEY LESION COMPARISON: Prior studies including the 10/02/2022 study? TECHNIQUE: Multiple routine MRI sequences through the abdomen were obtained on a high-field 1.5Tesla MRI. Pre-and postcontrast images with 10 mL of Gadavist intravenous contrast were obtained. This included a dynamic contrast-enhanced technique. FINDINGS: Lung bases: The visualized lung bases are unremarkable. Liver: The liver is normal in size, shape, and signal. No suspicious focal hepatic lesions seen. Specifically no suspicious arterial phase enhancing lesions or suspicious washout of contrast on later phases. No biliary ductal dilatation. Gallbladder: Gallbladder is unremarkable. No suspicious gallstones or filling defects. No gallbladder wall thickening or pericholecystic inflammatory changes. Pancreas: Pancreas is homogeneous in signal. No pancreatic ductal dilatation or obstruction. No peripancreatic inflammatory changes or fluid. Spleen: Unremarkable Adrenals: Unremarkable Kidneys: Right: The right kidney measures approximately 11.1 cm in length. There are tiny T2 bright nonenhancing cortical cysts seen the largest in the anterior mid to upper pole measures 0.9 cm in maximal diameter. No obstructive changes. Left: The left kidney measures 11.0 cm in length. In the lateral mid to upper pole of the left kidney there is a T2 bright complex cyst with layering T1 bright material in the dependent aspect. This measures 2.6 cm in maximal diameter. I do not appreciate any significant enhancement to this hemorrhagic cyst. The main finding of note is a complex enhancing heterogeneously T2 bright heterogeneously enhancing 3.5 x 2.7 cm complex mass in the lower pole. This corresponds with the enhancing mass seen on the prior CT scan. When measured in similar orientation this is likely not definitely changed in size from that 10/02/[address] appearance and MRI appearance would be consistent with a renal cell carcinoma. No other suspicious findings in the left kidney. No obstructive changes. Other: No bulky adenopathy IMPRESSION: 1.? There is a 3.5 cm heterogeneously enhancing complex mass lesion in the lower pole of the left kidney. This corresponds with the enhancing mass seen on the prior CT scan. As reported on the prior abdominal CT scan report, the CT and now MRI appearance would be most consistent with a renal cell carcinoma. Further evaluation of this likely renal cell carcinoma would be warranted. Urology consult should be made if this has not already occurred. If the lesion is not resected, tissue diagnosis would be strongly recommended to confirm the true nature of this likely renal cell carcinoma. 2.? There is a 2.6 cm hemorrhagic cyst in the lateral mid to upper pole of the left kidney with layering T1 bright material. I do not appreciate any suspicious enhancement to this complex cyst. Assessment & Plan Assessment & Plan (1) Renal cell carcinoma: Code(s): C64.9 - Malignant neoplasm of unspecified kidney, except renal pelvis (2) Alcohol use disorder: Code(s): F10.90 - Alcohol use, unspecified, uncomplicated (3) CKD (chronic kidney disease): Code(s): N18.9 - Chronic kidney disease, unspecified Plan Patient was refereed to Dr Khan. Orders: Orders AMB Urinalysis Automated 02/01/23 Z13.9 - Encounter for screening, unspecified Patient Instructions: The patient had an opportunity to ask questions regarding treatment plan. All questions were answered. Imaging, Laboratory studies and physical exam results were discussed and reviewed in detail. No major barriers to understanding were identified. The patient expressed understanding and agreement with the above treatment plan. The patient is aware they should contact our office by phone for worsening of their current condition or the appearance of new symptoms. Compliance is encouraged with any medications and followup testing that is ordered. It is a privilege to be allowed the opportunity to participate in the urologic care of your patient. If you have any questions or concerns regarding treatment for the above conditions please do not hesitate to contact me. The office telephone contact is [phone]. This note is constructed in part using voice recognition software. While every effort has been made to ensure accuracy music professor errors may have been included. Yours sincerely, Kurtis Salgado MD Coding Level of Care Code New Pt Level 4 (70059) Diagnoses Renal cell carcinoma C64.9 Alcohol use disorder F10.90 CKD (chronic kidney disease) N18.9
== END 2023-02-01 16:15 | disposition home or self-care (01) ==
LOC: HO.HUSH 14:49
PROVIDERS: PCP Family Medicine; Visit Provider Urology
DX: C64.9 Malignant neoplasm of unspecified kidney, except renal pelvis (principal); F10.90 Alcohol use, unspecified, uncomplicated; N18.9 Chronic kidney disease, unspecified
CPT/HCPCS: 99204

== ENCOUNTER → 2023-02-01 14:49 | Outpatient (BNVA) | payer MEDICAID, SELFPAY | PROVIDERS: PCP Family Medicine; Visit Provider Urology | DX: C64.9 Malignant neoplasm of unspecified kidney, except renal pelvis (principal); N18.9 Chronic kidney disease, unspecified; F10.90 Alcohol use, unspecified, uncomplicated | CPT/HCPCS: 99202 ==

== ENCOUNTER 2023-04-25 11:02 | Emergency (ER) | payer MEDICAID, SELFPAY ==
[2023-04-25] VITALS (7 sets, daily range): BP systolic 134–160; BP diastolic 82–112; PULSE 79–125; RESP 15–18; TEMP 36.6–37.6; O2SAT 98–99; BMI 36.1
--- NOTE | ~2023-04-25 | XR_ITS ---
EXAMINATION: XR CHEST CLINICAL INFORMATION: Cough. COMPARISON: None available. TECHNIQUE: Frontal view of the chest was obtained. FINDINGS: No significant abnormality is noted involving the heart, lungs, mediastinum, bony thorax or soft tissues. XR/XR chest 1V IMPRESSION: Unremarkable chest examination.
--- NOTE | 2023-04-25 11:29 | ECG_ITS ---
Test Reason : tachycardia Blood Pressure : / mmHG Vent. Rate : 095 BPM Atrial Rate : 095 BPM P-R Int : 210 ms QRS Dur : 114 ms QT Int : 368 ms P-R-T Axes : 048 -42 030 degrees QTc Int : 462 ms Sinus rhythm with 1st degree A-V block Left axis deviation Incomplete left bundle branch block Nonspecific T wave abnormality Abnormal ECG When compared with ECG of 30-OCT-2022 05:53, QT has shortened Referred By: Annie Huber Electronically Signed By:MELVIN MASON
--- NOTE | 2023-04-25 11:34 | ED_ITS ---
HPI - Nausea/Vomiting/Diarrhea General Chief complaint: Recheck/Abnormal Lab/Rx Stated complaint: N/V/D DEHYDRATION Time Seen by Provider: 04/25/23 11:18 Source: patient and old records reviewed Mode of arrival: EMS Limitations: no limitations History of Present Illness HPI Narrative: 62 yo male with PMH of CKD recent Cr around 0.8 to 1.3, ascending aortic dilation, anemia - Fe, HLD, obesity, chronic LE edema and venous stasis dermatitis, ETOH abuse, hx of DVT but denies anti-coagulant use to me, was on doxycycline in March for ? leg cellulitis here with c/o fevers resolved n/v/d and abdominal cramps that happened on / after eating seafood salad that had been in the fridge for 1 week. He did not take his diuretic while sick which is smart because he was throwing up his pills. MD elicited complaint: other (sent from PCP for concern dehydration and elevated HR - reported abnormal EKG) Pertinent past history: other (just had GI illness prior to this) Onset (ago): day(s) (4) Description of vomiting: food contents and watery Associated nausea: Yes Associated abdominal pain: No Location of pain: diffuse Pain consistency: now resolved Severity: mild Quality: cramping Exacerbating factors: eating Relieving factors: none Context: possible food poisoning (started after eating old seafood salad had been in fridge x 1 week) and recent antibiotic use Associated symptoms: denies other symptoms (he states he feels fine went for routine appointment appointment told his doctor what happened and they referred him to ED for labs and EKG he states I am much better and feel fine) Related Data Home Medications Medication Instructions Recorded Confirmed cyanocobalamin (vitamin B-12) 1,000 mcg PO DAILY 10/02/22 11/30/22 1,000 mcg tablet (Vitamin B-12) ferrous sulfate 325 mg (65 mg 325 mg PO DAILY 10/02/22 11/30/22 iron) tablet folic acid 1 mg tablet 1 mg PO DAILY 10/02/22 11/30/22 thiamine HCl (vitamin B1) 100 mg 100 mg PO DAILY 10/02/22 11/30/22 tablet (Vitamin B-1) allopurinol 300 mg tablet 1 tab PO DAILY 10/30/22 11/30/22 metoprolol succinate 50 mg 1.5 tab PO DAILY 10/30/22 11/30/22 tablet,extended release 24 hr multivitamin with folic acid 400 1 tab PO DAILY 10/30/22 11/30/22 mcg tablet (Daily-Gene (with folic acid)) torsemide 20 mg tablet 2 tab PO DAILY 10/30/22 11/30/22 Previous Rx's Medication Instructions Recorded cephalexin 500 mg capsule 500 mg PO QID 7 days #28 caps 01/23/23 prednisone 20 mg tablet 40 mg (2 x 20 mg) PO DAILY 5 days 01/23/23 #10 tabs magnesium oxide 400 mg (241.3 mg 400 mg PO DAILY #10 tabs 04/25/23 magnesium) tablet Allergies Allergy/AdvReac Type Severity Reaction Status Date / Time azithromycin [AZITHROMYCIN] Allergy Severe FACIAL Verified 04/25/23 11:30 SWELLING hydrochlorothiazide [HCTZ] Allergy Severe Facial Verified 04/25/23 11:30 Swelling Review of Systems 2 Review of Systems: Constitutional : No Weight loss, No Fever, No Chills ENT/Mouth : No sore throat, No Rhinorrhea Eyes: No Swelling, No Redness Cardiovascular : No Chest Pain, No SOB, pos chronic edema Respiratory : No Cough, No Sputum, No Wheezing Gastrointestinal : no Nausea, no Vomiting, no Diarrhea, no abdominal Pain, No Hematochezia, No Melena Genitourinary : No Dysuria, No Urinary Frequency, No Hematuria, No Urgency Musculoskeletal : No joint pain, No Myalgias, No Joint Swelling Skin : No Skin Lesions, No rash Neuro : No Weakness, No Numbness, No Dizziness, No Headache Psych : No Anxiety/Panic, No Depression All other systems reviewed and are negative. Gastrointestinal: Gastrointestinal: Reports nausea PMFSH Past Medical History Attestation statement: The following information was validated with the patient. Source: old records reviewed Medical History Alcohol use disorder Hyperlipidemia Ascending aortic aneurysm Alcoholic steatohepatitis Seborrheic dermatitis DEBORAH (obstructive sleep apnea) History of rhabdomyolysis Hx of lower gastrointestinal bleeding Hx of sepsis History of DVT of lower extremity Chronic ulcer of leg Chronic venous stasis HTN (hypertension) Anemia Anemia Surgical History Hx of colonoscopy Family History Family History Mother Dementia Maternal Grandmother Dementia Social History Social History Household Members: Family Housing: Apartment Do you presently have visiting nurse or other home services: No Alcohol intake: current Alcohol intake frequency: a few times a month Alcohol type: hard liquor Patient Tobacco Use Status: Never used Tobacco Smoked in Last 30 Days: No Use of substances other than those prescribed or required for medical reasons: No Advance Directives: Yes Advance Directives on File: Yes Advance Directives Date on File: 04/13/22 service: No Current occupational status: disabled Physical Exam 2 Vital Signs: Vital Signs: Last Vital Signs Temp 99.6 F 04/25/23 15:10 Pulse 84 04/25/23 15:10 Resp 18 04/25/23 15:10 BP 142/82 H 04/25/23 15:10 Pulse Ox 98 04/25/23 15:10 O2 Del Method Room Air 04/25/23 15:10 BMI result Body Mass Index 36.1 Appearance: Alert. Oriented X3. No acute distress. Eyes: Pupils equal, round and reactive to light. ENT: Pharynx mild dry MM Neck: Normal inspection. Neck supple. CVS: slightly tachycardic heart rate and rhythm. Pulses normal. Respiratory: No respiratory distress. Breath sounds diminished likely due to body habitus Abdomen: Soft and nontender. obese Skin: Skin warm and dry. Normal skin color. Normal skin turgor. Extremities: chronic thickening of skin and venous stasis dermatitis but no signs of warmth edema or erythema no wounds Neuro: Oriented X 3. No motor deficit. No sensory deficit. Course Course Course Narrative: feels fine and wants to go home, if repeat magnesium better will DC home Reevaluation(s) Reevaluation #1: no diarrhea to suggest c diff while in ED Reevaluation #2: BNP up but states leg edema is chronic denies dyspnea has no hypoxia Medications Administered Discontinued Medications Generic Name Dose Route Start Last Admin Trade Name Freq PRN Reason Stop Dose Admin Sodium Chloride 500 mls @ 500 mls/hr 04/25/23 11:30 04/25/23 14:40 Ns IV 04/25/23 12:29 Infused .Q1H PROMISE Infusion Magnesium Sulfate 2 gm in 50 mls @ 25 mls/hr 04/25/23 12:26 04/25/23 15:25 Magnesium Sulfate/H2o IV 04/25/23 14:25 Infused ONCE ONE Infusion Magnesium Sulfate/Dextrose 1 gm in 100 mls @ 100 mls/hr 04/25/23 14:41 04/25/23 15:25 Magnesium Sulfate/D5w IV 04/25/23 15:40 100 mls/hr ONCE ONE Administration Medical Decision Making Medical Decision Making MDM Narrative: 62 yo male with PMH of CKD recent Cr around 0.8 to 1.3, ascending aortic dilation, anemia - Fe, HLD, obesity, chronic LE edema and venous stasis dermatitis, ETOH abuse, hx of DVT but denies anti-coagulant use to me, at this time will need labs, gentle fluids, EKG for possible afib - zofran. Has no abdominal pain to suggest acute pathology or colitis but stool studies ordered. He has no changes in legs and no signs of infection given no change doubt DVT. I suspect food toxicity and possible dehydration Differential Diagnosis Differential Diagnoses: The differential diagnosis associated with the presentation includes POLLY on CKD, lyte abnormality, COVID, infectious diarrhea, viral syndrome Admission/Observation Consideration of admission/observation: Escalation of care including admission/observation considered magnesium will be repleted - EKG qtc not sig high, in NSR, Cr stable, will recheck and if improved stable for DC Consult Healthcare Provider Management of the patient was discussed with: Primary Care Provider (PCP called ahead for run down) Lab Data [facility] Lab Attestation statement: I reviewed the patient's lab results. plts have been up and down recently not on thinners or aspirin will trend with PCP. H/H stable no reports of bleeding will repeat plts in 24 to 48 hours with PCP or Dr. Peters 04/25/23 11:43 04/25/23 11:43 Labs: Lab Results 04/25/23 04/25/23 Range/Units 11:43 14:15 WBC 6.5 (4.8-10.8) X10*3/uL RBC 3.76 L (4.60-5.80) X10*6/uL Hgb 10.6 L (14.0-18.0) g/dl Hct 33.3 L (42.0-52.0) % MCV 88.6 (80.0-98.0) fL MCH 28.2 (27.0-33.0) pg MCHC 31.8 (31.0-36.0) g/dl RDW 16.4 H (11.0-16.0) % Plt Count 47 L D (160-400) X10*3/uL MPV 9.8 (9.4-12.4) fL Immature Gran % (Auto) 0.5 H (0.0-0.4) % Neut % (Auto) 63.7 (45-73) % Lymph % (Auto) 22.9 (20-40) % Grand % (Auto) 10.1 (2-11) % Eos % (Auto) 1.4 (0-4) % Baso % (Auto) 1.4 (0-2) % Lymph # (Auto) 1.5 (1.2-4.9) X10*3/uL Grand # (Auto) 0.7 (0.1-1.2) X10*3/uL Eos # (Auto) 0.1 (0.0-0.4) X10*3/uL Baso # (Auto) 0.1 (0.0-0.2) X10*3/uL Abs Immat Gran (auto) 0.03 (0.00-0.03) X10*3/uL Absolute Neuts (auto) 4.2 (2.0-8.3) x10*3/uL Absolute Nucleated RBC 0.000 (0.0-0.012) X10*3/uL Nucleated RBC % (auto) 0.0 (0.0-0.2) /100WBC Sodium 139 (135-145) mmol/L Potassium 4.2 D (3.3-5.1) mmol/L Chloride 100 (96-108) mmol/L Carbon Dioxide 23 (22-29) mmol/L Anion Gap 20 (12-20) BUN 17 H (9-16) mg/dL Creatinine 1.29 (0.5-1.4) mg/dL Estim Creat Clear Calc 69.8 Estimated GFR 57 Random Glucose 96 (60-115) mg/dL Calcium 9.1 (8.4-10.2) mg/dL Magnesium 1.0 L* 1.3 L* (1.6-2.6) mg/dL Total Bilirubin 2.3 H (0.0-1.0) mg/dL Direct Bilirubin 1.1 H (0.0-0.5) mg/dL AST 34 (5-37) U/L ALT 10 (0-40) U/L Alkaline Phosphatase 110 (39-117) U/L B-Natriuretic Peptide 443 H (<100) pg/mL Total Protein 7.7 (6.5-8.0) g/dL Albumin 3.9 (3.5-5.0) g/dL Lipase 13 (8-78) U/L Ethyl Alcohol < 10 mg/dL COVID-19 (TORSTEN) Negative (Negative) COVID-19 Clin Com See Note Independent Interpretation I performed an independent interpretation of an: EKG and Plain X-Ray Interpretation: Rate: 95 Rhythm: NSR 1st degree AVB Escalante: left, LAFB Normal P waves. Normal PORTIA. Normal QRS complex. ST T wave : no ZAK, nonspecific findings lateral leads qTC: 462 prior studies: no sig change from priors The study has been interpreted contemporaneously by me. . Radiology Impression Discussion of test interpretation with radiology: I have reviewed the radiologist's reading. Independent Historian Clinical information obtained from an independent historian. History obtained from or confirmed by: EMS External Record Review External record reviewed: Inpatient record Tests considered The following testing was considered but not selected: CT scan if labs abnormal given recent GI illness but no abdominal pain to suggest acute abdominal pathology on arrival Prescription Management I considered prescription management with: Other (magnesium) Critical Care Time Critical Care Time Critical Care Time: Yes Total Critical Care Time: 31 Attestation: repeat magnesium check and IV magnesium repletion to prevent cardiac arrhythmia I attest to this time spent taking care of the patient Discharge Plan Discharge Clinical Impression: Hypomagnesemia, Thrombocytopenia Patient Disposition: Home, Self-Care Instructions: Hypomagnesemia (ED), Thrombocytopenia (ED) Additional Instructions: no aspirin products. your kidney function was normal. your platelets were lower than baseline - return for bleeding, severe headaches, black or bloody stools - you need to repeat your lab test in 24 hours tomorrow with your primary care doctor or Dr. Peters to make sure they are not going lower. AVOID aspirin containing products. stay hydrated, I would hold your torsemide today and tomorrow. return for dizziness, pain, fevers, vomiting or bleeding issues as written above. Prescriptions: New magnesium oxide 400 mg (241.3 mg magnesium) tablet 400 mg PO DAILY Qty: 10 0RF No Action cyanocobalamin (vitamin B-12) [Vitamin B-12] 1,000 mcg Tablet 1,000 mcg PO DAILY thiamine HCl (vitamin B1) [Vitamin B-1] 100 mg Tablet 100 mg PO DAILY folic acid 1 mg tablet 1 mg PO DAILY ferrous sulfate 325 mg (65 mg iron) tablet 325 mg PO DAILY torsemide 20 mg tablet 2 tab PO DAILY metoprolol succinate 50 mg tablet extended release 24 hr 1.5 tab PO DAILY allopurinol 300 mg tablet 1 tab PO DAILY multivitamin with folic acid [Daily-Gene (with folic acid)] 400 mcg tablet 1 tab PO DAILY prednisone 20 mg tablet 40 mg PO DAILY 5 Days Qty: 10 0RF cephalexin 500 mg capsule 500 mg PO QID 7 Days Qty: 28 0RF
[2023-04-25 11:55] LABS: MANUAL DIFF FLAG NO
[2023-04-25 12:08] LABS: Basophils Absolute Auto 0.1 X10*3/uL (0.0-0.2); Basophils Percent Auto 1.4 % (0-2); Eosinophils Absolute Auto 0.1 X10*3/uL (0.0-0.4); Eosinophils Percent Auto 1.4 % (0-4); Hematocrit 33.3 % (42.0-52.0); Hemoglobin 10.6 g/dl (14.0-18.0); Imm Gran Abs Auto 0.03 X10*3/uL (0.00-0.03); Imm Gran Pct Auto 0.5 % (0.0-0.4); Lymphocytes Absolute Auto 1.5 X10*3/uL (1.2-4.9); Lymphocytes Percent Auto 22.9 % (20-40); Mean Corpuscular HGB Conc 31.8 g/dl (31.0-36.0); Mean Corpuscular Hemoglobin 28.2 pg (27.0-33.0); Mean Corpuscular Volume 88.6 fL (80.0-98.0); Monocytes Absolute Auto 0.7 X10*3/uL (0.1-1.2); Monocytes Percent Auto 10.1 % (2-11); Neutrophils Absolute Auto 4.2 x10*3/uL (2.0-8.3); Neutrophils Percent Auto 63.7 % (45-73); Red Blood Count 3.76 X10*6/uL (4.60-5.80); Red Cell Distribution Width 16.4 % (11.0-16.0); White Blood Count 6.5 X10*3/uL (4.8-10.8)
[2023-04-25 12:19] LABS: Ethanol < 10 mg/dL
[2023-04-25 12:21] LABS: Alanine Aminotransferase 10 U/L (0-40); Albumin Level 3.9 g/dL (3.5-5.0); Alkaline Phosphatase 110 U/L (39-117); Anion Gap 20 (12-20); Aspartate Amino Transferase 34 U/L (5-37); Bilirubin Direct 1.1 mg/dL (0.0-0.5); Bilirubin Total 2.3 mg/dL (0.0-1.0); Blood Urea Nitrogen 17 mg/dL (9-16); Calcium 9.1 mg/dL (8.4-10.2); Carbon Dioxide 23 mmol/L (22-29); Chloride 100 mmol/L (96-108); Creatinine Clr Calc Pharmacy 69.8; Estimated Glomerular Filt Rate 57; Glucose Random 96 mg/dL (60-115); Lipase 13 U/L (8-78); Potassium 4.2 mmol/L (3.3-5.1); Sodium 139 mmol/L (135-145); Total Protein 7.7 g/dL (6.5-8.0)
[2023-04-25 12:24] LABS: B Type Natriuretic Peptide 443 pg/mL (<100)
[2023-04-25 12:26] LABS: COVID-19 Test Negative (Negative); IDNOW Serial# 08D9AD1C
[2023-04-25 12:57] LABS: Mean Platelet Volume 9.8 fL (9.4-12.4); Platelet Count 47 X10*3/uL (160-400)
[2023-04-25] MEDS: 0.9 % Sodium Chloride 500 ML IV (13:26)
[2023-04-25] MEDS: Magnesium Sulfate/H2O 2 GM/50 ML PIGGYBACK IV (13:31)
--- NOTE | 2023-04-25 14:30 | MHC.EDTECH ---
Dami a lab and sent it
[2023-04-25 14:42] LABS: Magnesium 1.3 mg/dL (1.6-2.6)
[2023-04-25] MEDS: Magnesium Sulfate/D5W 1 GM/100 ML PIGGYBACK IV (15:25)
[2023-04-25 16:52] LABS: Magnesium 1.9 mg/dL (1.6-2.6)
== END 2023-04-25 17:35 | disposition home or self-care (01) ==
PROVIDERS: Emergency Medicine; Emergency Provider Student in an Organized Health Care Education/Training Program; PCP Family Medicine
DX: R11.2 Nausea with vomiting, unspecified (principal); E86.0 Dehydration; R60.0 Localized edema; R05.9 Cough, unspecified; D69.6 Thrombocytopenia, unspecified; R06.02 Shortness of breath; E83.42 Hypomagnesemia; Z20.822 Contact with and (suspected) exposure to COVID-19; Z20.828 Contact with and (suspected) exposure to other viral communicable diseases; Z79.899 Other long term (current) drug therapy
CPT/HCPCS: 36415; 71045; 80048; 80076; 80307; 83690; 83735; 83880; 85025; 87635; 93005; 96361; 96365; 99284; 99285; J3475

== ENCOUNTER 2023-08-13 09:09 | Emergency (ER) | payer MEDICAID, SELFPAY ==
--- NOTE | ~2023-08-13 | CT_ITS ---
EXAMINATION: CT HEAD WITHOUT CONTRAST CLINICAL INFORMATION: Altered mental status yesterday. COMPARISON: CT head from 11/12/2022. TECHNIQUE: Contiguous axial imaging was performed from the skull base to vertex without intravenous administration of contrast. This CT examination was performed using dose optimization techniques as appropriate, variously including the following: *Automated exposure control. *Adjustment of mA and/or kV according to patient size (this includes techniques or standardized protocols for targeted exams where dose is matched to indication/reason for exam; i.e. extremities or head). *Use of iterative reconstruction technique. DLP: 750 mGy-cm FINDINGS: There is no evidence of acute intracranial hemorrhage or edematous territorial infarction. Parekh-white matter differentiation is preserved. A few foci of hypoattenuation in the periventricular and deep white matter are consistent with mild microangiopathy. Proportional prominence of the ventricles and sulcal spaces without evidence of obstructive hydrocephalus. No abnormal mass effect or midline shift. No extra-axial fluid collections. No acute soft tissue or osseous abnormalities. Mild mucosal thickening of the paranasal sinuses. Mild rightward nasal septal deviation. The mastoid air cells and middle ear cavities are clear. CT/CT head/brain wo IV con IMPRESSION: 1. No evidence of acute intracranial hemorrhage or edematous territorial infarction. 2. Mild underlying microangiopathy and generalized cerebral volume loss.
--- NOTE | ~2023-08-13 | CT_ITS ---
EXAMINATION: CT ABDOMEN AND PELVIS WITH CONTRAST CLINICAL INFORMATION: Abdominal pain and diarrhea. COMPARISON: MRI abdomen 12/27/2022. TECHNIQUE: Multidetector volumetric images were obtained from the superior aspect of the liver through the pubic symphysis following administration 85 mL of Omnipaque 350 intravenous contrast. Sagittal and coronal reformatted images were obtained on the technologist's workstation. Oral contrast: No This CT examination was performed using dose optimization techniques as appropriate, variously including the following: *Automated exposure control *Adjustment of mA and/or kV according to patient size (this includes techniques or standardized protocols for targeted exams where dose is matched to indication/reason for exam; i.e. extremities or head) *Use of iterative reconstruction technique DLP: 673 mGy-cm FINDINGS: LUNG BASES: The visualized lung bases are unremarkable. There are small right retrocrural lymph nodes. LIVER, GALLBLADDER, AND BILIARY TREE: The liver is normal in size, shape, and attenuation. No focal hepatic lesion or biliary ductal dilatation is present. The gallbladder is unremarkable with no evidence of radiopaque gallstones, gallbladder wall thickening, or obvious pericholecystic inflammatory changes. PANCREAS: Unremarkable. SPLEEN: Unremarkable. ADRENAL GLANDS: Unremarkable. KIDNEYS AND URETERS: The kidneys are normal in size, shape, and attenuation. No hydronephrosis, hydroureter, or calculi seen. No perinephric stranding. There is a 2.5 cm cyst midpole left kidney and 1 cm cyst midpole right kidney. There is a thick-walled exophytic mass measuring 4.1 x 3.7 cm along the lower pole left kidney highly suspicious for primary lesion. It measured 3.5 x 2.7 cm on the previous MRI abdomen 12/27/2022. BLADDER: The bladder is contracted with diffuse bladder wall thickening. GASTROINTESTINAL TRACT: The small bowel loops and colon appears unremarkable without distention. There is scattered colonic diverticulosis without diverticulitis. No free air or free fluid seen. ABDOMINAL WALL: There is mild induration along the umbilicus but no evidence of hernia. LYMPH NODES: There are small mesenteric lymph nodes along the celiac axis and the bao hepatis, nonspecific. VASCULAR: Unremarkable. PELVIC VISCERA: Unremarkable. OSSEOUS STRUCTURES: No aggressive lytic or sclerotic process seen except for a small superior endplate Schmorl's nodule L4 vertebra. CT/CT abdomen pelvis w IV con IMPRESSION: Heterogenous mass lower pole left kidney, slightly increased in size compared to MRI abdomen study 12/27/2022. There are bilateral simple renal cysts noted. Numerous lymph nodes seen in the celiac axis and bao hepatis not described on previous CT abdomen exam 10/02/2022. Scattered colonic diverticulosis without diverticulitis. Nondistended urinary bladder with diffuse bladder wall thickening. This is a new finding Fleischner guidelines were followed.
[2023-08-13 09:15] VITALS: BP 138/96; PULSE 126; O2SAT 96
[2023-08-13 09:37] VITALS: BP 160/120; PULSE 116; RESP 24; TEMP 36.9; O2SAT 99; BMI 37.1
[2023-08-13 09:51] VITALS: BP 175/100; PULSE 117; RESP 20; TEMP 36.8; O2SAT 98
--- NOTE | 2023-08-13 10:13 | ED_ITS ---
HPI - General Adult General Chief complaint: Nausea/Vomiting/Diarrhea Stated complaint: diarrhea vomiting dizziness Time Seen by Provider: 08/13/23 09:32 Source: patient and EMS Mode of arrival: EMS Limitations: other ( Poor historian) History of Present Illness HPI narrative: this is a 63-year-old male history of CKD, anemia, alcohol use disorder, renal cell carcinoma presenting to the emergency department multiple complaints he reports I just can not care for myself anymore , he reports he has been having 6 days of completely liquid diarrhea, he reports he has been using a commode and he has to walk it upstairs to dispose of it, and he can no longer do this he is very fatigued and is also having significant dizziness with positional changes. Patient reports that today he started taking antibiotics for a presumed left hand infection left hand has been swollen, red and warm, he took 1 dose of Keflex this morning. No previous antibiotic use before this. No recent sick contacts. Patient reports he just feels overall unwell. No chest pain, shortness of breath, abdominal pain, headache, vision changes. He reported to nursing I just couldnt talk right for a minute this occured yesterday. Related Data Home Medications Medication Instructions Recorded Confirmed cyanocobalamin (vitamin B-12) 1,000 mcg PO DAILY 10/02/22 06/03/23 1,000 mcg tablet (Vitamin B-12) ferrous sulfate 325 mg (65 mg 325 mg PO DAILY 10/02/22 11/30/22 iron) tablet folic acid 1 mg tablet 1 mg PO DAILY 10/02/22 06/03/23 thiamine HCl (vitamin B1) 100 mg 100 mg PO DAILY 10/02/22 11/30/22 tablet (Vitamin B-1) metoprolol succinate 50 mg 1.5 tab PO DAILY 10/30/22 06/03/23 tablet,extended release 24 hr multivitamin with folic acid 400 1 tab PO DAILY 10/30/22 06/03/23 mcg tablet (Daily-Gene (with folic acid)) torsemide 20 mg tablet 2 tab PO DAILY 10/30/22 11/30/22 Previous Rx's Medication Instructions Recorded cephalexin 500 mg capsule 500 mg PO QID 7 days #28 caps 01/23/23 prednisone 20 mg tablet 40 mg (2 x 20 mg) PO DAILY 5 days 01/23/23 #10 tabs magnesium oxide 400 mg (241.3 mg 400 mg PO DAILY #10 tabs 04/25/23 magnesium) tablet Allergies Allergy/AdvReac Type Severity Reaction Status Date / Time azithromycin [AZITHROMYCIN] Allergy Severe FACIAL Verified 04/25/23 11:30 SWELLING hydrochlorothiazide [HCTZ] Allergy Severe Facial Verified 04/25/23 11:30 Swelling Review of Systems 2 Review of Systems: Constitutional : No Weight loss, No Fever, No Chills, No Fatigue, No Malaise ENT/Mouth : No sore throat, No Rhinorrhea Eyes: No Eye Pain, No Swelling, No Redness Cardiovascular : No Chest Pain, No SOB, No Dyspnea on Exertion, No Orthopnea, No Edema, No Palpitations Respiratory : No Cough, No Sputum, No Wheezing Gastrointestinal : No Nausea, No Vomiting, No Diarrhea, No Constipation, No abdominal Pain, No Hematochezia, No Melena Genitourinary : No Dysuria, No Urinary Frequency, No Hematuria, Musculoskeletal : No joint pain, No Myalgias, No Joint Swelling Skin : No Skin Lesions, No rash Neuro : No Weakness, No Numbness, No Dizziness, No Headache Psych : No Anxiety/Panic, No Depression All other systems reviewed and are negative Yes all other systems are reviewed and are negative [facility] Past Medical History Attestation statement: The following information was validated with the patient. Source: old records reviewed and nursing notes reviewed Medical History Alcohol use disorder Hyperlipidemia Ascending aortic aneurysm Alcoholic steatohepatitis Seborrheic dermatitis DEBORAH (obstructive sleep apnea) History of rhabdomyolysis Hx of lower gastrointestinal bleeding Hx of sepsis History of DVT of lower extremity Chronic ulcer of leg Chronic venous stasis HTN (hypertension) Anemia Anemia Surgical History Hx of colonoscopy Family History Family History Mother Dementia Maternal Grandmother Dementia Social History Social History Household Members: Family Housing: Apartment Do you presently have visiting nurse or other home services: No Alcohol intake: current Alcohol intake frequency: a few times a month Alcohol type: hard liquor Comment: pt refused socks Patient Tobacco Use Status: Never used Tobacco Smoked in Last 30 Days: No Use of substances other than those prescribed or required for medical reasons: No Advance Directives: Yes Advance Directives on File: Yes Advance Directives Date on File: 04/13/22 service: No Current occupational status: disabled Physical Exam ED Vital Signs: Vital Signs - 24 hr 08/13/23 09:37 08/13/23 09:51 08/13/23 13:06 Temperature 98.4 F 98.2 F 100.9 F H Pulse Rate 116 H 117 H 111 H Respiratory Rate 24 H 20 16 Blood Pressure 160/120 H 175/100 H 126/78 Pulse Oximetry 99 98 95 Oxygen Delivery Method Room Air Room Air Room Air 08/13/23 15:51 Temperature 99.6 F Pulse Rate 91 Respiratory Rate 18 Blood Pressure 126/80 Pulse Oximetry 97 Oxygen Delivery Method Room Air BMI result Body Mass Index 37.1 slight tachycardia Appearance: Alert.? Oriented X3.? No acute distress.? Unkempt Head: Normocephalic, atraumatic, no step-offs or deformities Eyes: Pupils equal, round and reactive to light.? ENT: Pharynx normal.? Neck: Normal inspection.? Neck supple.? CVS: Normal heart rate and rhythm.? Pulses normal.? Respiratory: No respiratory distress.? Breath sounds normal.? Abdomen: Soft and nontender.? Skin: Skin warm and dry.? Normal skin color.? Normal skin turgor.? Extremities: + 3+ nonpitting edema to bilateral lower extremities..? No calf ttp. 5/5 strength to bilateral upper and lower extremities Left hand w/ errythema and warmth hand to the wrist palpable 2+ radial pulses equal and b/l. full painless rom to b/l fingers and wrist. Normal sensation distally. Neuro: Oriented X 3.? No motor deficit.? No sensory deficit. CN 2-12 intact Course Reevaluation(s) Reevaluation #1: CBC appears to be around patient's baseline. With a normocytic anemia as well as thrombocytopenia. This is not a new finding. Chemistry without acute electrolyte abnormalities requiring intervention. Patient is noted to have an elevated anion gap 21, unclear etiology will obtain ethanol level to rule this out as potential cause. Total bilirubin 2.3, patient with diarrhea CT abdomen and pelvis pending. Normal lactic acid. Troponin negative, nonischemic EKG unlikely ACS Influenza, COVID, RSV negative. UA, orthostatics, gi studies pending ( no bowel movements since in the department), ct abdomen pending. Time: 14:33 Reevaluation #2: Sign out to [facility] [employer] pending reeval and dispo Medications Administered Discontinued Medications Generic Name Dose Route Start Last Admin Trade Name Alissa PRN Reason Stop Dose Admin Acetaminophen 975 mg 08/13/23 13:12 08/13/23 13:17 Acetaminophen 325 Mg Tablet PO 08/13/23 13:13 975 mg ONCE ONE Administration Ceftriaxone Sodium 1 gm/ 50 mls @ 100 mls/hr 08/13/23 11:29 08/13/23 12:39 Sodium Chloride IV 08/13/23 11:58 Infused ONCE ONE Infusion Iohexol 85 ml 08/13/23 15:56 08/13/23 15:57 Iohexol 350 Mg/Ml 100 Ml Infus..Btl IV 08/13/23 15:57 85 ml ONCE ONE Administration Medical Decision Making Medical Decision Making MDM Narrative: 63 year old male Presents with nausea, vomiting, fatigue, diarrhea and left hand pain, swelling, redness and warmth. PE w/ no abd tenderness to palpation. 5/5 strength to bilateral upper and lower extremities Left hand w/ errythema and warmth hand to the wrist palpable 2+ radial pulses equal and b/l. full painless rom to b/l fingers and wrist. Normal sensation distally. N/D likely viral unlikely obstruction, acute abdomen, diverticulitis, appendicitis, pancreatitis. L hand likely inflammatory arthritis versus gout versus pseudogout. Unlikely arterial or venous occlusion, no signs of threat to limber neurovascular compromise. Other differentials include cellulitis. No signs of ACS, PE, acute respiratory distress. Diarrhea likely viral. Will rule out C diff although unlikely. Inability to talk yesterday concerning for possible electrolyte abnormalities versus TIA. Unlikely stroke, posterior stroke at this time negative NIH stroke scale. I do not suspect intracranial hemorrhage. Plan- labs imaging. Differential Diagnosis Differential Diagnoses: The differential diagnosis associated with the presentation includes N/D likely viral unlikely obstruction, acute abdomen, diverticulitis, appendicitis, pancreatitis. L hand likely inflammatory arthritis versus gout versus pseudogout. Unlikely arterial or venous occlusion, no signs of threat to limber neurovascular compromise. Other differentials include cellulitis. No signs of ACS, PE, acute respiratory distress. Diarrhea likely viral. Will rule out C diff although unlikely. Inability to talk yesterday concerning for possible electrolyte abnormalities versus TIA. Unlikely stroke, posterior stroke at this time negative NIH stroke scale. I do not suspect intracranial hemorrhage. Admission/Observation Consideration of admission/observation: Escalation of care including admission/observation considered Likely Lab Data MDM Lab Attestation statement: I reviewed the patient's lab results. 08/13/23 10:13 08/13/23 10:13 Labs: Lab Results 08/13/23 08/13/23 08/13/23 Range/Units 09:57 10:13 11:42 WBC 10.7 (4.8-10.8) X10*3/uL RBC 3.94 L (4.60-5.80) X10*6/uL Hgb 11.3 L (14.0-18.0) g/dl Hct 35.2 L (42.0-52.0) % MCV 89.3 (80.0-98.0) fL MCH 28.7 (27.0-33.0) pg MCHC 32.1 (31.0-36.0) g/dl RDW 17.0 H (11.0-16.0) % Plt Count 90 L D (160-400) X10*3/uL MPV 9.3 L (9.4-12.4) fL Immature Gran % (Auto) 0.5 H (0.0-0.4) % Neut % (Auto) 84.9 H (45-73) % Lymph % (Auto) 8.0 L (20-40) % [place] % (Auto) 5.9 (2-11) % Eos % (Auto) 0.5 (0-4) % Baso % (Auto) 0.2 (0-2) % Lymph # (Auto) 0.9 L (1.2-4.9) X10*3/uL [place] # (Auto) 0.6 (0.1-1.2) X10*3/uL Eos # (Auto) 0.1 (0.0-0.4) X10*3/uL Baso # (Auto) 0.0 (0.0-0.2) X10*3/uL Abs Immat Gran (auto) 0.05 H (0.00-0.03) X10*3/uL Absolute Neuts (auto) 9.1 H (2.0-8.3) x10*3/uL Absolute Nucleated RBC 0.000 (0.0-0.012) X10*3/uL Nucleated RBC % (auto) 0.0 (0.0-0.2) /100WBC Sodium 139 (135-145) mmol/L Potassium 3.9 (3.3-5.1) mmol/L Chloride 103 (96-108) mmol/L Carbon Dioxide 19 L (22-29) mmol/L Anion Gap 21 H (12-20) BUN 19 H (9-16) mg/dL Creatinine 1.02 (0.5-1.4) mg/dL Estim Creat Clear Calc 87.7 Estimated GFR > 60 Random Glucose 95 (60-115) mg/dL Lactic Acid 0.9 (0.5-2.0) mmol/L Calcium 9.2 D (8.4-10.2) mg/dL Total Bilirubin 2.3 H (0.0-1.0) mg/dL AST 25 (5-37) U/L ALT 6 (0-40) U/L Alkaline Phosphatase 120 H (39-117) U/L Troponin I High Sens (<3.5-35.0) ng/L Total Protein 8.5 H (6.5-8.0) g/dL Albumin 4.2 (3.5-5.0) g/dL Ethyl Alcohol < 10 mg/dL Influenza Type A (PCR) NEGATIVE (Negative) Influenza Type B (PCR) NEGATIVE (Negative) RSV RNA Qual (PCR) NEGATIVE (Negative) SARS-CoV-2 RNA (RT-PCR) NEGATIVE (Negative) 08/13/23 Range/Units 11:43 WBC (4.8-10.8) X10*3/uL RBC (4.60-5.80) X10*6/uL Hgb (14.0-18.0) g/dl Hct (42.0-52.0) % MCV (80.0-98.0) fL MCH (27.0-33.0) pg MCHC (31.0-36.0) g/dl RDW (11.0-16.0) % Plt Count (160-400) X10*3/uL MPV (9.4-12.4) fL Immature Gran % (Auto) (0.0-0.4) % Neut % (Auto) (45-73) % Lymph % (Auto) (20-40) % [place] % (Auto) (2-11) % Eos % (Auto) (0-4) % Baso % (Auto) (0-2) % Lymph # (Auto) (1.2-4.9) X10*3/uL [place] # (Auto) (0.1-1.2) X10*3/uL Eos # (Auto) (0.0-0.4) X10*3/uL Baso # (Auto) (0.0-0.2) X10*3/uL Abs Immat Gran (auto) (0.00-0.03) X10*3/uL Absolute Neuts (auto) (2.0-8.3) x10*3/uL Absolute Nucleated RBC (0.0-0.012) X10*3/uL Nucleated RBC % (auto) (0.0-0.2) /100WBC Sodium (135-145) mmol/L Potassium (3.3-5.1) mmol/L Chloride (96-108) mmol/L Carbon Dioxide (22-29) mmol/L Anion Gap (12-20) BUN (9-16) mg/dL Creatinine (0.5-1.4) mg/dL Estim Creat Clear Calc Estimated GFR Random Glucose (60-115) mg/dL Lactic Acid (0.5-2.0) mmol/L Calcium (8.4-10.2) mg/dL Total Bilirubin (0.0-1.0) mg/dL AST (5-37) U/L ALT (0-40) U/L Alkaline Phosphatase (39-117) U/L Troponin I High Sens < 2.7 (<3.5-35.0) ng/L Total Protein (6.5-8.0) g/dL Albumin (3.5-5.0) g/dL Ethyl Alcohol mg/dL Influenza Type A (PCR) (Negative) Influenza Type B (PCR) (Negative) RSV RNA Qual (PCR) (Negative) SARS-CoV-2 RNA (RT-PCR) (Negative) Independent Interpretation I performed an independent interpretation of an: CT Scan ( CT/CT head/brain wo IV con IMPRESSION: 1. No evidence of acute intracranial hemorrhage or edematous territorial infarction. 2. Mild underlying microangiopathy and generalized cerebral volume loss.) Critical Care Time Critical Care Time Critical Care Time: No Discharge Plan Discharge Clinical Impression: Diarrhea, Abdominal pain Patient Disposition: Still a Patient Prescriptions: No Action cyanocobalamin (vitamin B-12) [Vitamin B-12] 1,000 mcg Tablet 1,000 mcg PO DAILY thiamine HCl (vitamin B1) [Vitamin B-1] 100 mg Tablet 100 mg PO DAILY folic acid 1 mg tablet 1 mg PO DAILY ferrous sulfate 325 mg (65 mg iron) tablet 325 mg PO DAILY torsemide 20 mg tablet 2 tab PO DAILY metoprolol succinate 50 mg tablet extended release 24 hr 1.5 tab PO DAILY multivitamin with folic acid [Daily-Gene (with folic acid)] 400 mcg tablet 1 tab PO DAILY prednisone 20 mg tablet 40 mg PO DAILY 5 Days Qty: 10 0RF cephalexin 500 mg capsule 500 mg PO QID 7 Days Qty: 28 0RF magnesium oxide 400 mg (241.3 mg magnesium) tablet 400 mg PO DAILY Qty: 10 0RF
[2023-08-13 10:18] LABS: MANUAL DIFF FLAG NO
[2023-08-13 10:19] LABS: Basophils Percent Auto 0.2 % (0-2); Eosinophils Absolute Auto 0.1 X10*3/uL (0.0-0.4); Eosinophils Percent Auto 0.5 % (0-4); Hematocrit 35.2 % (42.0-52.0); Hemoglobin 11.3 g/dl (14.0-18.0); Imm Gran Abs Auto 0.05 X10*3/uL (0.00-0.03); Imm Gran Pct Auto 0.5 % (0.0-0.4); Lymphocytes Absolute Auto 0.9 X10*3/uL (1.2-4.9); Mean Corpuscular HGB Conc 32.1 g/dl (31.0-36.0); Mean Corpuscular Hemoglobin 28.7 pg (27.0-33.0); Mean Corpuscular Volume 89.3 fL (80.0-98.0); Mean Platelet Volume 9.3 fL (9.4-12.4); Monocytes Absolute Auto 0.6 X10*3/uL (0.1-1.2); Monocytes Percent Auto 5.9 % (2-11); Neutrophils Absolute Auto 9.1 x10*3/uL (2.0-8.3); Neutrophils Percent Auto 84.9 % (45-73); Platelet Count 90 X10*3/uL (160-400); Red Blood Count 3.94 X10*6/uL (4.60-5.80); White Blood Count 10.7 X10*3/uL (4.8-10.8)
--- NOTE | 2023-08-13 10:23 | PC.NURSE ---
IV placed, labs collected and sent.
[2023-08-13 10:40] LABS: Alanine Aminotransferase 6 U/L (0-40); Albumin Level 4.2 g/dL (3.5-5.0); Alkaline Phosphatase 120 U/L (39-117); Anion Gap 21 (12-20); Aspartate Amino Transferase 25 U/L (5-37); Bilirubin Total 2.3 mg/dL (0.0-1.0); Blood Urea Nitrogen 19 mg/dL (9-16); Calcium 9.2 mg/dL (8.4-10.2); Carbon Dioxide 19 mmol/L (22-29); Chloride 103 mmol/L (96-108); Creatinine Clr Calc Pharmacy 87.7; Estimated Glomerular Filt Rate > 60; Glucose Random 95 mg/dL (60-115); Potassium 3.9 mmol/L (3.3-5.1); Sodium 139 mmol/L (135-145); Total Protein 8.5 g/dL (6.5-8.0)
[2023-08-13 11:06] LABS: Influenza A PCR NEGATIVE (Negative); Influenza B PCR NEGATIVE (Negative); Resp Syncy Virus RNA Qual PCR NEGATIVE (Negative); SARS COV2 PCR INHOUSE NEGATIVE (Negative)
--- NOTE | 2023-08-13 11:29 | ECG_ITS ---
Test Reason : WEAKNESS Blood Pressure : / mmHG Vent. Rate : 105 BPM Atrial Rate : 105 BPM P-R Int : 196 ms QRS Dur : 108 ms QT Int : 334 ms P-R-T Axes : 035 -54 132 degrees QTc Int : 441 ms Sinus tachycardia Possible Left atrial enlargement Left anterior fascicular block T wave abnormality, consider lateral ischemia Abnormal ECG When compared with ECG of 25-APR-2023 11:48, No significant change was found Referred By: Travis Cervantes Electronically Signed By:CARRILLO MAHARAJ
[2023-08-13 12:01] LABS: Lactic Acid 0.9 mmol/L (0.5-2.0)
[2023-08-13] MEDS: cefTRIAXone sodium 1 GM in 0.9 % Sodium Chloride 50 ML IV (12:05)
[2023-08-13 12:16] LABS: Troponin-I High Sensitivity < 2.7 ng/L (<3.5-35.0)
[2023-08-13 13:06] VITALS: BP 126/78; PULSE 111; RESP 16; TEMP 38.3; O2SAT 95
[2023-08-13] MEDS: Acetaminophen 325 MG TABLET 975 MG PO (13:17)
[2023-08-13 14:52] LABS: Ethanol < 10 mg/dL
[2023-08-13 15:51] VITALS: BP 126/80; PULSE 91; RESP 18; TEMP 37.6; O2SAT 97
[2023-08-13] MEDS: iohexoL 350 MG/ML 100 ML INFUS..BTL 85 ML IV (15:57)
[2023-08-13 17:08] LABS: Appearance Urine Clear; Color Urine Dark Yellow; Glucose Urine UA Negative (Negative); Leukocyte Esterase Urine Trace (Negative); Nitrite Urine Negative (Negative); Specific Gravity - Urine >= 1.030 (1.005-1.025); UMIC TRIGGER UACC YES; Urine Blood Negative (Negative); Urine Ketones 15 mg/dL (Negative); Urine Protein 30 (1+) mg/dL (Neg-Trace)
[2023-08-13 17:13] LABS: Bacteria Urine None Seen (None Seen); Hyaline Casts Urine 0-2 /LPF (0-2); RBC Urine 0-2 /HPF (0-2); Squamous Epithelial Cell Urine 0-2 /HPF (0-2); WBC Urine 0-5 /HPF (0-5)
--- NOTE | 2023-08-13 18:25 | MHC.CM.ED ---
Addendum entered by Winnie Mendoza 08/13/23 18:39: Will file with Elder services with concerns of living situation, hoarding, unkempt state and caring for elderly mother. Provider is in agreement with this plan. Addendum entered by Winnie Mendoza 08/13/23 18:33: HCP on file. HCP Niharika Meade (sister) [phone] Original Note: CM received consult from [facility] SHAFER. Pt arrived from home with 6 days diarrhea. Hygiene poor. Pt tells CM that he has been ill with diarrhea for 6 days. Lives in basement room in mother's home. Cares for elderly mother with dementia. Normally uses the bathroom upstairs, but was using commode due to multiple bouts of diarrhea. States felt weak from illness. Pt. adamantly refuses PT consult or SNF for fci care to regain his strength. States he must care for his mother. States if he is not being admitted, then he will call his neighbor for a ride home. Pt is alert and orientated x4. Pt states his sister works 12 hour shifts at the [employer] and cannot help much. States his sister would like to get more care at home for the mother. 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 Call to cafe for dinner tray.
[2023-08-13 18:53] VITALS: BP 160/100; PULSE 91; RESP 18; TEMP 37.3; O2SAT 96
== END 2023-08-13 19:18 | disposition home or self-care (01) ==
PROVIDERS: Physician Assistant; Emergency Provider Emergency Medicine; PCP Family Medicine
DX: R19.7 Diarrhea, unspecified (principal); R10.9 Unspecified abdominal pain; R42 Dizziness and giddiness; R11.2 Nausea with vomiting, unspecified; R41.82 Altered mental status, unspecified; R00.0 Tachycardia, unspecified; Z20.822 Contact with and (suspected) exposure to COVID-19; Z20.828 Contact with and (suspected) exposure to other viral communicable diseases; Z79.899 Other long term (current) drug therapy
CPT/HCPCS: 0241U; 36415; 70450; 74177; 80053; 80307; 81001; 83605; 84484; 85025; 87040; 93005; 96365; 99284; 99285; J0696; Q9967

== ENCOUNTER → 2023-08-13 11:29 | Outpatient (BNV) | payer MEDICAID, SELFPAY | PROVIDERS: Emergency Provider Emergency Medicine; PCP Family Medicine; Visit Provider Internal Medicine | DX: R42 Dizziness and giddiness (principal); R19.7 Diarrhea, unspecified; R11.10 Vomiting, unspecified | CPT/HCPCS: 93010 ==

== ENCOUNTER 2023-08-26 06:48 | Emergency (ER) | payer MEDICAID, SELFPAY ==
[2023-08-26 06:55] VITALS: BP 202/120; PULSE 62; O2SAT 99
--- NOTE | 2023-08-26 07:07 | ED.FALL ---
HPI - Fall General Chief Complaint: Extremity Injury, Lower Stated Complaint: leg and groin pain from fall Time Seen by Provider: 08/26/23 07:02 Source: patient Mode of arrival: ambulatory Limitations: no limitations History of Present Illness HPI Narrative: 63 years old male presented to the emergency department with a chief complaint of right hip pain and right knee pain. He said it the he was in the bathroom hit thebrt hip against the vanity. He is complaining of right knee pain right hip pain. He lives with his mother. He has history of anemia alcohol use disorder. Denies any neck pain and head injury MD complaint: fall Onset (ago): day(s) (2) Fall from: standing Fall witnessed: no Place fall occurred: home Related Data Home Medications Medication Instructions Recorded Confirmed cyanocobalamin (vitamin B-12) 1,000 mcg PO DAILY 10/02/22 06/03/23 1,000 mcg tablet (Vitamin B-12) ferrous sulfate 325 mg (65 mg 325 mg PO DAILY 10/02/22 11/30/22 iron) tablet folic acid 1 mg tablet 1 mg PO DAILY 10/02/22 06/03/23 thiamine HCl (vitamin B1) 100 mg 100 mg PO DAILY 10/02/22 11/30/22 tablet (Vitamin B-1) metoprolol succinate 50 mg 1.5 tab PO DAILY 10/30/22 06/03/23 tablet,extended release 24 hr multivitamin with folic acid 400 1 tab PO DAILY 10/30/22 06/03/23 mcg tablet (Daily-Gene (with folic acid)) torsemide 20 mg tablet 2 tab PO DAILY 10/30/22 11/30/22 Previous Rx's Medication Instructions Recorded cephalexin 500 mg capsule 500 mg PO QID 7 days #28 caps 01/23/23 prednisone 20 mg tablet 40 mg (2 x 20 mg) PO DAILY 5 days 01/23/23 #10 tabs magnesium oxide 400 mg (241.3 mg 400 mg PO DAILY #10 tabs 04/25/23 magnesium) tablet cephalexin 500 mg capsule 500 mg PO QID 6 days #24 caps 08/13/23 Allergies Allergy/AdvReac Type Severity Reaction Status Date / Time azithromycin [AZITHROMYCIN] Allergy Severe FACIAL Verified 08/26/23 07:10 SWELLING hydrochlorothiazide [HCTZ] Allergy Severe Facial Verified 08/26/23 07:10 Swelling Review of Systems Review of Systems: Yes all other systems are reviewed and are negative ENT: Reports system reviewed and no additional complaints, except as documented Cardiovascular: Cardiovascular: Reports no additional cardiovascular complaints Neurologic: Reports system reviewed and no additional complaints, except as documented PMFSH Past Medical History Attestation statement: The following information was validated with the patient. Onset Date is defined in the Problem List Problems that require an onset date and time if occurred within 24 hrs of arrival to the ED Aortic Dissection and Rupture; Neurologic impairment; Cardiopulmonary Arrest; Endotracheal Intubation; Insertion or Replacement of Mechanical Circulatory Assist Device Medical History Alcohol use disorder Hyperlipidemia Ascending aortic aneurysm Alcoholic steatohepatitis Seborrheic dermatitis DEBORAH (obstructive sleep apnea) History of rhabdomyolysis Hx of lower gastrointestinal bleeding Hx of sepsis History of DVT of lower extremity Chronic ulcer of leg Chronic venous stasis HTN (hypertension) Anemia Anemia Surgical History Hx of colonoscopy Family History Family History Mother Dementia Maternal Grandmother Dementia Social History Social History Household Members: Family Housing: Apartment Do you presently have visiting nurse or other home services: No Alcohol intake: current Alcohol intake frequency: a few times a month Alcohol type: hard liquor Comment: pt refused socks Patient Tobacco Use Status: Never used Tobacco Advance Directives: Yes Advance Directives on File: Yes Advance Directives Date on File: 04/13/22 service: No Current occupational status: disabled Physical Exam Vital Signs: Vital Signs: Last Vital Signs Temp 98 F 08/26/23 07:10 Pulse 69 08/26/23 07:10 Resp 17 08/26/23 09:48 BP 153/81 H 08/26/23 07:10 Pulse Ox 99 08/26/23 07:10 O2 Del Method Room Air 08/26/23 07:10 BMI result Body Mass Index 37.6 Const: General: cooperative and alert Nutritional Appearance: well nourished Orientation/consciousness: patient oriented x3 HEENT: Head: Yes normal to inspection and Yes No palpable skull fracture present Ears: hearing grossly normal bilaterally General nose exam: Normal external nose present Face and sinus: Yes normal facial exam Mouth: Normal oral and palatal mucosa present Neck: Neck: Yes normal visual inspection and Yes full ROM Chest: Chest palpation & inspection: normal inspection of the chest Resp: Effort & Inspection: normal respiratory effort Auscultation: clear to auscultation bilaterally Cardio: Jugular venous distension: no JVD Rate: regular rate Rhythm: regular rhythm GI: Inspection: Yes normal to inspection Palpation (GI): Soft to palpation Auscultation: normal bowel sounds Neuro: General: patient oriented x3 Extrem: Other: Tenderness present in the right hip right knee no deformity decreased range of motion Course Reevaluation(s) Reevaluation #1: Failed PT consulted upper caser Time: 13:35 Reevaluation #2: Waiting for placement to rehab pt will be signed out to the incoming attending Dr Garcia Time: 14:52 Reevaluation #3: OFF SHIFT NOW WILL SIGNED OUT TO DR GARCIA Time: 15:50 Medications Administered Discontinued Medications Generic Name Dose Route Start Last Admin Trade Name Ivanq PRN Reason Stop Dose Admin Ibuprofen 800 mg 08/26/23 07:06 08/26/23 08:45 Ibuprofen 800 Mg Tablet PO 08/26/23 07:07 800 mg ONCE ONE Administration Oxycodone HCl 10 mg 08/26/23 11:45 08/26/23 12:11 Oxycodone Hcl Immed Release 5 Mg Tablet PO 08/26/23 11:46 10 mg ONCE ONE Administration Medical Decision Making Differential Diagnosis Differential Diagnoses: The differential diagnosis associated with the presentation includes Fracture /dislocation/contusion Admission/Observation Consideration of admission/observation: Escalation of care including admission/observation considered Lab Data [facility] Lab Attestation statement: I reviewed the patient's lab results. 08/26/23 09:13 08/26/23 09:13 Labs: Lab Results 08/26/23 08/26/23 Range/Units 09:13 11:11 WBC 8.2 (4.8-10.8) X10*3/uL RBC 3.55 L (4.60-5.80) X10*6/uL Hgb 10.2 L (14.0-18.0) g/dl Hct 33.1 L (42.0-52.0) % MCV 93.2 (80.0-98.0) fL MCH 28.7 (27.0-33.0) pg MCHC 30.8 L (31.0-36.0) g/dl RDW 18.2 H (11.0-16.0) % Plt Count 240 D (160-400) X10*3/uL MPV 8.7 L (9.4-12.4) fL Immature Gran % (Auto) 0.9 H (0.0-0.4) % Neut % (Auto) 66.6 (45-73) % Lymph % (Auto) 15.1 L (20-40) % [place] % (Auto) 11.1 H (2-11) % Eos % (Auto) 5.0 H (0-4) % Baso % (Auto) 1.3 (0-2) % Lymph # (Auto) 1.2 (1.2-4.9) X10*3/uL [place] # (Auto) 0.9 (0.1-1.2) X10*3/uL Eos # (Auto) 0.4 (0.0-0.4) X10*3/uL Baso # (Auto) 0.1 (0.0-0.2) X10*3/uL Abs Immat Gran (auto) 0.07 H (0.00-0.03) X10*3/uL Absolute Neuts (auto) 5.5 (2.0-8.3) x10*3/uL Absolute Nucleated RBC 0.000 (0.0-0.012) X10*3/uL Nucleated RBC % (auto) 0.0 (0.0-0.2) /100WBC Sodium 137 (135-145) mmol/L Potassium 3.6 (3.3-5.1) mmol/L Chloride 104 (96-108) mmol/L Carbon Dioxide 17 L (22-29) mmol/L Anion Gap 20 (12-20) BUN 14 (9-16) mg/dL Creatinine 0.84 (0.5-1.4) mg/dL Estim Creat Clear Calc 107.3 Estimated GFR > 60 Random Glucose 88 (60-115) mg/dL Calcium 8.6 D (8.4-10.2) mg/dL Total Bilirubin 1.4 H (0.0-1.0) mg/dL AST 9 (5-37) U/L ALT < 5 (0-40) U/L Alkaline Phosphatase 100 (39-117) U/L Total Protein 7.0 (6.5-8.0) g/dL Albumin 3.4 L (3.5-5.0) g/dL COVID-19 (TORSTEN) Negative (Negative) COVID-19 Clin Com See Note Independent Interpretation I performed an independent interpretation of an: Plain X-Ray Interpretation: no fx Radiology Impression Discussion of test interpretation with radiology: I have reviewed the radiologist's reading. Radiologist Impression: TECHNIQUE: Two views of the right hip. FINDINGS: No fracture. Anatomic alignment. 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 Symmetric SI joints. Pelvic rim and pubic symphysis are maintained. Multiple pelvic phleboliths. No significant soft tissue abnormality. XR/XR hip RT w PEL1V IMPRESSION: 1. No acute fracture or malalignment. 2. 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 Dictated By: Kellie Lindsay Signed By: <Electronically signed by Kellie Lindsay in OV> 08/26/23835 DD/ 6 TD/TT: Transcriptioni Social Determinants Patient?s care significantly limited by Social Determinants of Health including: Alcoholism and drug addiction in family hx alcoholism Discharge Plan Discharge Clinical Impression: Hip pain, right, Knee pain, right Patient Disposition: Still a Patient Prescriptions: No Action cyanocobalamin (vitamin B-12) [Vitamin B-12] 1,000 mcg Tablet 1,000 mcg PO DAILY thiamine HCl (vitamin B1) [Vitamin B-1] 100 mg Tablet 100 mg PO DAILY folic acid 1 mg tablet 1 mg PO DAILY ferrous sulfate 325 mg (65 mg iron) tablet 325 mg PO DAILY torsemide 20 mg tablet 2 tab PO DAILY metoprolol succinate 50 mg tablet extended release 24 hr 1.5 tab PO DAILY multivitamin with folic acid [Daily-Gene (with folic acid)] 400 mcg tablet 1 tab PO DAILY prednisone 20 mg tablet 40 mg PO DAILY 5 Days Qty: 10 0RF cephalexin 500 mg capsule 500 mg PO QID 7 Days Qty: 28 0RF magnesium oxide 400 mg (241.3 mg magnesium) tablet 400 mg PO DAILY Qty: 10 0RF cephalexin 500 mg capsule 500 mg PO QID 6 Days Qty: 24 0RF
[2023-08-26 07:10] VITALS: BP 153/81; PULSE 69; RESP 19; TEMP 36.6; O2SAT 99; BMI 37.6
--- NOTE | 2023-08-26 07:56 | PC.NURSE ---
pt incontinent of stool and urine, socks were stuck to his dry scaled feet, covered in feces, cleaned and changed into hospital attire, alert, speech clear aware, states as of 199 today he could not ambulate
[2023-08-26 09:19] LABS: MANUAL DIFF FLAG NO
[2023-08-26 09:25] LABS: Basophils Absolute Auto 0.1 X10*3/uL (0.0-0.2); Basophils Percent Auto 1.3 % (0-2); Eosinophils Absolute Auto 0.4 X10*3/uL (0.0-0.4); Hematocrit 33.1 % (42.0-52.0); Hemoglobin 10.2 g/dl (14.0-18.0); Imm Gran Abs Auto 0.07 X10*3/uL (0.00-0.03); Imm Gran Pct Auto 0.9 % (0.0-0.4); Lymphocytes Absolute Auto 1.2 X10*3/uL (1.2-4.9); Lymphocytes Percent Auto 15.1 % (20-40); Mean Corpuscular HGB Conc 30.8 g/dl (31.0-36.0); Mean Corpuscular Hemoglobin 28.7 pg (27.0-33.0); Mean Corpuscular Volume 93.2 fL (80.0-98.0); Mean Platelet Volume 8.7 fL (9.4-12.4); Monocytes Absolute Auto 0.9 X10*3/uL (0.1-1.2); Monocytes Percent Auto 11.1 % (2-11); Neutrophils Absolute Auto 5.5 x10*3/uL (2.0-8.3); Neutrophils Percent Auto 66.6 % (45-73); Platelet Count 240 X10*3/uL (160-400); Red Blood Count 3.55 X10*6/uL (4.60-5.80); Red Cell Distribution Width 18.2 % (11.0-16.0); White Blood Count 8.2 X10*3/uL (4.8-10.8)
[2023-08-26 09:37] LABS: Alanine Aminotransferase < 5 U/L (0-40); Albumin Level 3.4 g/dL (3.5-5.0); Alkaline Phosphatase 100 U/L (39-117); Anion Gap 20 (12-20); Aspartate Amino Transferase 9 U/L (5-37); Bilirubin Total 1.4 mg/dL (0.0-1.0); Blood Urea Nitrogen 14 mg/dL (9-16); Calcium 8.6 mg/dL (8.4-10.2); Carbon Dioxide 17 mmol/L (22-29); Chloride 104 mmol/L (96-108); Creatinine Clr Calc Pharmacy 107.3; Estimated Glomerular Filt Rate > 60; Glucose Random 88 mg/dL (60-115); Potassium 3.6 mmol/L (3.3-5.1); Sodium 137 mmol/L (135-145)
[2023-08-26 09:48] VITALS: RESP 17
[2023-08-26 11:36] LABS: COVID-19 Test Negative (Negative); IDNOW Serial# 08D9AD1C
--- NOTE | 2023-08-26 14:04 | MHC.CM.ED ---
Received case management from Dr Rothman. Patient came to the ER due to leg/groin pain after a fall. Physical therapy eval completed. Short term rehab is recommended. Referral broadcasted within 25 miles of patient's home to all facilities that are contracted with patient's insurance. Continue to monitor for d/c needs.
--- NOTE | 2023-08-26 16:08 | PC.NURSE ---
Patient arrived to ED over flow at this time. Patient awake and alert. skin pwd, resp even and non labored. speaking in full, clear sentences. c/o right groin and right knee pain post slip and fall last night. patient aware of plan of care
--- NOTE | 2023-08-26 16:30 | MHC.EDTECH ---
Pt came from main ED top overflow bed 7. Pt was transferred into bed. Pt was given a bed bath. Pt was assisted to use the bed pain. Small amount of liquid bowel movement, ROSALINDA mccormick. Applied powder to groin and folds, barrier cream applied. Fresh water was given. Pt watching television. No apparent distress noted.
[2023-08-26 16:51] VITALS: BP 157/86; PULSE 74; RESP 16; TEMP 36.4; O2SAT 98
--- NOTE | 2023-08-26 18:01 | MHC.CM.ED ---
CM met with patient. HCP on file. Pt is agreeable to [facility], but wants to remain local. [facility]. Awaiting response from [facility]. Pt is not agreeable to more referrals. Will check in the morning with facilities. CM top folllow for discharge needs.
--- NOTE | 2023-08-26 18:34 | MHC.EDTECH ---
Pt was given a meal and he ate 100% of it. He drank his water and claudio minerva. Pt is comfortable and is talking on the phone, call piña is within reach.
--- NOTE | 2023-08-26 19:26 | PHA.MEDREC ---
Pharmacy Consult ? Medication Reconciliation Pharmacy has completed the medication reconciliation. Patient had a list of medications that he reports is the most accurate. There is no recent claim history for his medications except losartan. When going through list patient stated that he does not always take his medications but knew the doses and that he takes multiple tablet of allopurinol. He reports doctor often change his medications so he is unsure what to take but this list is the most accurate. Patient was on Keflex but report he only took half of the pills but it gave him diarrhea so he stopped. Cleo John, DelmiD
[2023-08-26 20:50] VITALS: BP 131/76; PULSE 62; RESP 16; TEMP 36.7; O2SAT 98
--- NOTE | 2023-08-26 20:51 | MHC.EDTECH ---
Pt's vitals were obtained and noted, the pt is clean and dry and positioned as requested, call piña is in reach and the pt is watching tv.
[2023-08-27] MEDS: Ibuprofen 800 MG TABLET PO ×2 (04:22→18:21)
[2023-08-27 05:20] VITALS: RESP 16
[2023-08-27 05:56] VITALS: BP 145/74; PULSE 72; RESP 16; TEMP 38.1; O2SAT 97
[2023-08-27] MEDS: Acetaminophen 325 MG TABLET 650 MG PO (06:53)
--- NOTE | 2023-08-27 07:11 | PC.NURSE ---
08/26: Assumed care of patient at 23:30. Pt seen in ED overflow, pending ? rehab/dispo after failing PT recently per chart review. Pt is A&Ox4. Mild fever 100.6 po on morning vitals, otherwise stable. Pt asymptomatic, denies chills. Covering ED Dr. Rothman notified, written order for 1x tylenol was given. +pp/cms. C/o pain in his right leg/hip 2/2 FFS into bathroom vanity at home per pt report. Medicated with prn ibuprofen with +effect, denies further pain. Tolerating po intake without n/v. Pt observed resting in bed for majority of shift, with even and unlabored breathing. Voids cyu in urinal. Bed alarm on and safety measures in place. Rings to make needs known. Handoff report given to onctoi TELLEZ 06:45.
[2023-08-27] MEDS: Cholecalciferol (Vitamin D3) 25 MCG TABLET 50 MCG PO (08:45)
[2023-08-27] MEDS: Torsemide 20 MG TABLET 40 MG PO (08:45)
[2023-08-27] MEDS: Metoprolol Succinate ER 50 MG TAB.ER.24H PO (08:45)
[2023-08-27] MEDS: allopurinoL 300 MG TABLET PO (08:45)
[2023-08-27] MEDS: Magnesium Oxide 400 MG TABLET PO (08:45)
[2023-08-27] MEDS: Losartan Potassium 25 MG TABLET PO ×2 (08:45→09:17)
[2023-08-27] MEDS: Ascorbic Acid 500 MG TABLET 1000 MG PO (08:45)
[2023-08-27] MEDS: Spironolactone 25 MG TABLET PO (09:16)
[2023-08-27] MEDS: allopurinoL 100 MG TABLET PO (09:17)
[2023-08-27 11:03] VITALS: TEMP 36.7
--- NOTE | 2023-08-27 11:04 | MHC.CM.ED ---
Addendum entered by Maye Powell 08/27/23 11:44: [facility] is able to offer a bed. Patient accepts bed. MDS completed and faxed to [facility]. Also sent to [facility] via [facility]. Original Note: Patient remains in ER overflow. [facility] is only facility still reviewing. Requested additional clinical info. Clinical updates sent to [facility] via [facility]. Continue to monitor for d/c needs.
[2023-08-27 14:00] VITALS: BP 109/60; PULSE 68; RESP 17; TEMP 36.8; O2SAT 95
[2023-08-27 20:43] VITALS: BP 131/79; PULSE 69; RESP 20; TEMP 36.8; O2SAT 96
[2023-08-27] MEDS: Atorvastatin Calcium 20 MG TABLET PO (20:47)
[2023-08-28 05:55] VITALS: BP 146/82; PULSE 54; RESP 18; TEMP 36.7; O2SAT 97
[2023-08-28] MEDS: allopurinoL 100 MG TABLET PO (08:57)
[2023-08-28] MEDS: Cholecalciferol (Vitamin D3) 25 MCG TABLET 50 MCG PO (08:57)
[2023-08-28] MEDS: Magnesium Oxide 400 MG TABLET PO (08:57)
[2023-08-28] MEDS: allopurinoL 300 MG TABLET PO (08:57)
[2023-08-28] MEDS: Losartan Potassium 25 MG TABLET PO (08:57)
[2023-08-28] MEDS: Torsemide 20 MG TABLET 40 MG PO (08:57)
[2023-08-28] MEDS: Spironolactone 25 MG TABLET PO (08:57)
[2023-08-28] MEDS: Metoprolol Succinate ER 50 MG TAB.ER.24H PO (08:57)
[2023-08-28] MEDS: Ascorbic Acid 500 MG TABLET 1000 MG PO (08:57)
== END 2023-08-28 10:14 ==
PROVIDERS: Emergency Provider Emergency Medicine; PCP Family Medicine
DX: S79.911A Unspecified injury of right hip, initial encounter (principal); S89.91XA Unspecified injury of right lower leg, initial encounter; R26.81 Unsteadiness on feet; W01.10XA Fall on same level from slipping, tripping and stumbling with subsequent striking against unspecified object, initial encounter; Y93.9 Activity, unspecified; Y92.9 Unspecified place or not applicable; Y99.9 Unspecified external cause status; Z79.899 Other long term (current) drug therapy; Z11.52 Encounter for screening for COVID-19; Z20.822 Contact with and (suspected) exposure to COVID-19
CPT/HCPCS: 36415; 73502; 73562; 80053; 85025; 87635; 97162; 99284; 99285

== ENCOUNTER 2023-09-25 06:42 | Inpatient (IN) | payer MEDICAID, SELFPAY ==
--- NOTE | ~2023-09-25 | CT_ITS ---
EXAMINATION: CT ABDOMEN AND PELVIS WITHOUT CONTRAST CLINICAL INFORMATION: Lower abdominal pain and diarrhea COMPARISON: 08/13/2023 TECHNIQUE: Multidetector volumetric imaging was performed from the superior aspect of the liver through the pubic symphysis. Sagittal and coronal reformatted images were obtained on the technologist's workstation. This CT examination was performed using dose optimization techniques as appropriate, variously including the following: *Automated exposure control *Adjustment of mA and/or kV according to patient size (this includes techniques or standardized protocols for targeted exams where dose is matched to indication/reason for exam; i.e. extremities or head) *Use of iterative reconstruction technique DLP: 762 mGy-cm FINDINGS: LUNG BASES: The visualized lung bases are unremarkable. LIVER, GALLBLADDER, AND BILIARY TREE: The liver is prominent and has a somewhat coarsened attenuation pattern and is likely reflective of mild intrinsic steatosis. No focal hepatic mass or intrahepatic hepatic biliary dilatation. The gallbladder is unremarkable with no evidence of radiopaque gallstones, gallbladder wall thickening, or obvious pericholecystic inflammatory changes. PANCREAS: Unremarkable. SPLEEN: Unremarkable. ADRENAL GLANDS: Unremarkable. KIDNEYS AND URETERS: No right or left hydronephrosis. There is an incompletely characterized cyst in the lateral mid left kidney at 18 mm which was better seen on the 08/13/2023 exam. The previously described thick-walled exophytic mass off the lower pole left kidney is less conspicuous on this noncontrast study but still present and needs to be followed. Please refer to the 08/13/2023 CT abdomen report for recommendations. BLADDER: Unremarkable. GASTROINTESTINAL TRACT: Abnormal. Now present, is a definite inflammatory process in the rectum and sigmoid with bowel wall thickening and induration and slime-colonic inflammatory change. The sigmoid extends towards the right lower quadrant. There is surrounding mesenteric stranding. Findings are consistent with acute colitis. Inflammatory change continues into the central epigastric region where several small subcentimeter lymph nodes are encountered consistent with a reactive adenitis and mesenteric inflammatory process. Drainable collections are not seen. No evidence though for bowel obstruction. Scattered diverticula are seen throughout the colon. Appendix is not identified. ABDOMINAL WALL: Previously noted induration, along the umbilicus without evidence of a hernia is again noted. LYMPH NODES: Small mesenteric lymph nodes with associated inflammatory change aren't noted and this appears worse than on the prior study. VASCULAR: Unremarkable. PELVIC VISCERA: Unremarkable. OSSEOUS STRUCTURES: Degenerative change in the lower thoracic spine and lumbar spine but no fracture. CT/CT abdomen pelvis wo IV con IMPRESSION: New inflammatory process, in the sigmoid and rectum and central mesentery. Please see above comments and discussion. In addition, please refer to the prior abdomen CT for a full discussion of the abnormal solid mass in the left kidney which is less well appreciated on this noncontrast study. Fleischner guidelines were followed.
--- NOTE | ~2023-09-25 | XR_ITS ---
EXAMINATION: XR CHEST CLINICAL INFORMATION: Question aspiration. COMPARISON: Most recent chest radiograph done earlier the same day. TECHNIQUE: Frontal view of the chest was obtained. FINDINGS: Hypoinflation of the lungs with minimal bibasilar atelectasis. No confluent airspace consolidation. No pleural effusion or pneumothorax. Stable cardiac mediastinal silhouette. XR/XR chest 1V IMPRESSION: Hypoinflation of the lungs with minimal bibasilar atelectasis.
--- NOTE | ~2023-09-25 | XR_ITS ---
EXAMINATION: XR CHEST CLINICAL INFORMATION: Dyspnea COMPARISON: 04/25/2023 TECHNIQUE: Frontal view of the chest was obtained. FINDINGS: Hypoventilation noted, on this AP portable exam. No focal consolidations. Well centered PA and lateral film would be helpful when clinically feasible. No change from 04/25/2023. Heart size borderline with normal caliber pulmonary vessels. XR/XR chest 1V IMPRESSION: No active disease given limitations of AP portable technique.
[2023-09-25 06:49] VITALS: PULSE 110; O2SAT 96; BMI 36.6
[2023-09-25 06:54] VITALS: BP 150/87; PULSE 97; RESP 18; TEMP 36.9; O2SAT 95
--- NOTE | 2023-09-25 07:05 | ED_ITS ---
HPI - Abdominal Pain General Chief Complaint: Abdominal Pain Stated Complaint: vomiting and diarrhea Time Seen by Provider: 09/25/23 07:04 Source: patient Mode of arrival: ambulatory Limitations: no limitations History of Present Illness HPI narrative: 63 yo male from home though did just leave rehab 1 week ago for leg weakness and had COVID + roommate has PMH of SDH, anemia, leg edema hx of venous ablation and DVT no longer on anticoagulation, gout, alcohol use disorder, HTN here with c/o runny nose, intermittent abdominal cramps, n/v/d all night. He notes that his mom and sister whom he live with both tested positive for COVID yesterday. His test was inconclusive. He is vaccinated and boostered. MD elicited complaint: abdominal pain Pertinent past history: none Onset (ago): day(s) (2am today) Pain Consistency: intermittent Location: RLQ and LLQ Severity: moderate Quality: cramping Radiation: none Migration to: no migration Exacerbating factors: eating Relieving factors: nothing Context: sick contacts Associated symptoms: nausea, vomiting, diarrhea and chills Related Data Home Medications Medication Instructions Recorded Confirmed metoprolol succinate 50 mg 50 mg PO DAILY 10/30/22 09/23/23 tablet,extended release 24 hr torsemide 20 mg tablet 2 tab PO DAILY 10/30/22 09/23/23 allopurinol 100 mg tablet 100 mg PO DAILY 08/26/23 09/23/23 allopurinol 300 mg tablet 300 mg PO DAILY 08/26/23 09/23/23 ascorbic acid (vitamin C) 500 mg 1,000 mg PO DAILY 08/26/23 09/23/23 tablet cholecalciferol (vitamin D3) 50 50 mcg PO DAILY 08/26/23 09/23/23 mcg (2,000 unit) tablet losartan 25 mg tablet 25 mg PO QAM 08/26/23 09/23/23 rosuvastatin 5 mg tablet 5 mg PO BEDTIME 08/26/23 09/23/23 spironolactone 25 mg tablet 25 mg PO DAILY 08/26/23 09/23/23 Previous Rx's Medication Instructions Recorded magnesium oxide 400 mg (241.3 mg 400 mg PO DAILY #10 tabs 04/25/23 magnesium) tablet Allergies Allergy/AdvReac Type Severity Reaction Status Date / Time azithromycin [AZITHROMYCIN] Allergy Severe FACIAL Verified 08/26/23 07:10 SWELLING hydrochlorothiazide [HCTZ] Allergy Severe Facial Verified 08/26/23 07:10 Swelling Review of Systems Review of Systems Constitutional : No Weight loss, No Fever, pos Chills ENT/Mouth : No sore throat, pos Rhinorrhea Eyes: No Swelling, No Redness Cardiovascular : No Chest Pain, No SOB, pos chronic Edema Respiratory : pos Cough, No Sputum, No Wheezing Gastrointestinal : Positive Nausea, Positive Vomiting, positive Diarrhea, positive abdominal Pain, No Hematochezia, No Melena Genitourinary : No Dysuria, No Urinary Frequency, No Hematuria, No Urgency Musculoskeletal : No joint pain, No Myalgias, No Joint Swelling Skin : No Skin Lesions, No rash Neuro : No Weakness, No Numbness, No Dizziness, No Headache Psych : No Anxiety/Panic, No Depression All other systems reviewed and are negative. [facility] Past Medical History Attestation statement: The following information was validated with the patient. Source: old records reviewed Medical History Alcohol use disorder Hyperlipidemia Ascending aortic aneurysm Alcoholic steatohepatitis Seborrheic dermatitis DEBORAH (obstructive sleep apnea) History of rhabdomyolysis Hx of lower gastrointestinal bleeding Hx of sepsis History of DVT of lower extremity Chronic ulcer of leg Chronic venous stasis HTN (hypertension) Anemia Anemia Surgical History Hx of colonoscopy Family History Family History Mother Dementia Maternal Grandmother Dementia Social History Social History Household Members: Family Housing: Apartment Do you presently have visiting nurse or other home services: No Alcohol intake: current Alcohol intake frequency: other Alcohol type: hard liquor Comment: pt refused socks Patient Tobacco Use Status: Never used Tobacco Advance Directives: Yes Advance Directives on File: Yes Advance Directives Date on File: 04/13/22 service: No Current occupational status: disabled Physical Exam ED Vital Signs: Vital Signs - 24 hr 09/25/23 06:54 09/25/23 08:34 Temperature 98.5 F 98.2 F Pulse Rate 97 91 Respiratory Rate 18 14 Blood Pressure 150/87 H 141/86 H Pulse Oximetry 95 95 Oxygen Delivery Method Room Air Room Air BMI result Body Mass Index 36.6 Appearance: Alert. Oriented X3. No acute distress. Eyes: Pupils equal, round and reactive to light. ENT: Pharynx dry MM Neck: Normal inspection. Neck supple. CVS: Normal heart rate and rhythm. Pulses normal. Respiratory: No respiratory distress. Breath sounds bases diminished Abdomen: Soft and nontender. Skin: Skin warm and dry. Normal skin color. Normal skin turgor. Extremities: 2-3+ pitting lower extremity edema. No calf ttp Neuro: Oriented X 3. No motor deficit. No sensory deficit. Course Course Course Narrative: no diarrhea here but ordered GI panel - at this time + colitis on CT scan no sig pain doubt ischemic will obtain cultures, lactic acidosis and start on empiric antibiotics, infection suspected [id number] Medical Decision Making Medical Decision Making [facility] Narrative: 63 yo male from home though did just leave rehab 1 week ago for leg weakness and had COVID + roommate has PMH of SDH, anemia, leg edema hx of venous ablation and DVT no longer on anticoagulation, gout, alcohol use disorder, HTN here with c/o n/v/d and intermittent abdominal cramps with a cough and runny nose. His family has COVID at this time he has benign abdominal exam but reports intermittent pain will obtain basic labs, UA, EKG, CXR for pneumonia, COVID, CT scan for mass/obstruction, gentle hydration and zofran ordered. No chest pain or hypoxia to suggest VTE/ACS. Has not been on oral antiboitics in rehab was eating a lot of pre-made food at [employer]. Differential Diagnosis Differential Diagnoses: The differential diagnosis associated with the presentation includes COVID, dehydration, viral syndrome Admission/Observation Consideration of admission/observation: Escalation of care including admission/observation considered admit for IV antibiotics and further workup - not tolerating PO Consult Healthcare Provider Management of the patient was discussed with: Hospitalist (will admit) Lab Data [facility] Lab Attestation statement: I reviewed the patient's lab results. 09/25/23 09:05 09/25/23 09:05 Labs: Lab Results 09/25/23 Range/Units 09:05 WBC 8.2 (4.8-10.8) X10*3/uL RBC 3.24 L (4.60-5.80) X10*6/uL Hgb 8.8 L (14.0-18.0) g/dl Hct 27.5 L (42.0-52.0) % MCV 84.9 (80.0-98.0) fL MCH 27.2 (27.0-33.0) pg MCHC 32.0 (31.0-36.0) g/dl RDW 17.0 H (11.0-16.0) % Plt Count 120 L D (160-400) X10*3/uL MPV 7.9 L (9.4-12.4) fL Immature Gran % (Auto) 0.4 (0.0-0.4) % Neut % (Auto) 66.9 (45-73) % Lymph % (Auto) 25.4 (20-40) % [place] % (Auto) 4.8 (2-11) % Eos % (Auto) 2.1 (0-4) % Baso % (Auto) 0.4 (0-2) % Lymph # (Auto) 2.1 (1.2-4.9) X10*3/uL [place] # (Auto) 0.4 (0.1-1.2) X10*3/uL Eos # (Auto) 0.2 (0.0-0.4) X10*3/uL Baso # (Auto) 0.0 (0.0-0.2) X10*3/uL Abs Immat Gran (auto) 0.03 (0.00-0.03) X10*3/uL Absolute Neuts (auto) 5.5 (2.0-8.3) x10*3/uL Absolute Nucleated RBC 0.000 (0.0-0.012) X10*3/uL Nucleated RBC % (auto) 0.0 (0.0-0.2) /100WBC PT 12.5 (11.1-13.3) SEC INR 1.0 (0.9-1.1) Sodium 146 H (135-145) mmol/L Potassium 4.2 (3.3-5.1) mmol/L Chloride 112 H (96-108) mmol/L Carbon Dioxide 23 (22-29) mmol/L Anion Gap 15 (12-20) BUN 16 (9-16) mg/dL Creatinine 1.03 (0.5-1.4) mg/dL Estim Creat Clear Calc 86.2 Estimated GFR > 60 Random Glucose 103 (60-115) mg/dL Calcium 8.5 (8.4-10.2) mg/dL Total Bilirubin 0.7 (0.0-1.0) mg/dL AST 11 (5-37) U/L ALT 5 (0-40) U/L Alkaline Phosphatase 112 (39-117) U/L Troponin I High Sens < 2.7 (<3.5-35.0) ng/L Total Protein 6.8 (6.5-8.0) g/dL Albumin 3.4 L (3.5-5.0) g/dL Lipase 15 (8-78) U/L COVID-19 (TORSTEN) Negative (Negative) COVID-19 Clin Com See Note Influenza Type A (NADIYA) Negative (Negative) Influenza Type B (NADIYA) Negative (Negative) Influenza A & B Note See Note Independent Interpretation I performed an independent interpretation of an: EKG, Plain X-Ray (normal ) and CT Scan (colitis) Interpretation: Rate: 98 Rhythm: NSR [place]: left Normal P waves. Normal PORTIA. Normal QRS complex. ST T wave : nonspecific ST T wave changes in lateral leads and inf leads no ZAK qTC: 432 prior studies: no acute ischemia The study has been interpreted contemporaneously by me. . Radiology Impression Discussion of test interpretation with radiology: I have reviewed the radiologist's reading. Independent Historian Clinical information obtained from an independent historian. History obtained from or confirmed by: EMS External Record Review External record reviewed: Inpatient record Social Determinants Patient?s care significantly limited by Social Determinants of Health including: Problems related to primary support group Medications Administered Discontinued Medications Generic Name Dose Route Start Last Admin Trade Name Freq PRN Reason Stop Dose Admin Sodium Chloride 500 mls @ 500 mls/hr 09/25/23 07:30 09/25/23 10:25 Ns IV 09/25/23 08:29 Infused .Q1H RPOMISE Infusion Ondansetron HCl 4 mg 09/25/23 07:17 09/25/23 09:05 Ondansetron Hcl 4 Mg/2 Ml Vial IVPUSH 09/25/23 07:18 4 mg ONCE ONE Administration Discharge Plan Discharge Clinical Impression: Vomiting, Abdominal pain, Colitis Patient Disposition: Admitted As Inpatient
--- NOTE | 2023-09-25 07:16 | ECG_ITS ---
Test Reason : COUGH/DYSPNEA Blood Pressure : / mmHG Vent. Rate : 098 BPM Atrial Rate : 098 BPM P-R Int : 188 ms QRS Dur : 110 ms QT Int : 386 ms P-R-T Axes : 032 -51 014 degrees QTc Int : 492 ms Artifact in tracing Normal sinus rhythm Left anterior fascicular block Nonspecific T wave abnormality Abnormal ECG When compared with ECG of 13-AUG-2023 12:10, T wave inversion no longer evident in Lateral leads QT has lengthened Referred By: Annie Huber Electronically Signed By:CARRILLO MAHARAJ
[2023-09-25 08:34] VITALS: BP 141/86; PULSE 91; RESP 14; TEMP 36.8; O2SAT 95
[2023-09-25] MEDS: ondansetron HCL 4 MG/2 ML VIAL IVPUSH (09:05)
[2023-09-25] MEDS: 0.9 % Sodium Chloride 500 ML IV (09:05)
[2023-09-25 09:09] LABS: MANUAL DIFF FLAG NO
[2023-09-25 09:12] LABS: Basophils Percent Auto 0.4 % (0-2); Eosinophils Absolute Auto 0.2 X10*3/uL (0.0-0.4); Eosinophils Percent Auto 2.1 % (0-4); Hematocrit 27.5 % (42.0-52.0); Hemoglobin 8.8 g/dl (14.0-18.0); Imm Gran Abs Auto 0.03 X10*3/uL (0.00-0.03); Imm Gran Pct Auto 0.4 % (0.0-0.4); Lymphocytes Absolute Auto 2.1 X10*3/uL (1.2-4.9); Lymphocytes Percent Auto 25.4 % (20-40); Mean Corpuscular Hemoglobin 27.2 pg (27.0-33.0); Mean Corpuscular Volume 84.9 fL (80.0-98.0); Mean Platelet Volume 7.9 fL (9.4-12.4); Monocytes Absolute Auto 0.4 X10*3/uL (0.1-1.2); Monocytes Percent Auto 4.8 % (2-11); Neutrophils Absolute Auto 5.5 x10*3/uL (2.0-8.3); Neutrophils Percent Auto 66.9 % (45-73); Platelet Count 120 X10*3/uL (160-400); Red Blood Count 3.24 X10*6/uL (4.60-5.80); White Blood Count 8.2 X10*3/uL (4.8-10.8)
[2023-09-25 09:16] LABS: Prothrombin Time 12.5 SEC (11.1-13.3)
[2023-09-25 09:26] LABS: COVID-19 Test Negative (Negative); IDNOW Serial# 152EDE1D
[2023-09-25 09:31] LABS: IDNOW Serial# 9DB6401D; Influenza A Negative (Negative); Influenza B2 Negative (Negative)
[2023-09-25 10:11] LABS: Alanine Aminotransferase 5 U/L (0-40); Albumin Level 3.4 g/dL (3.5-5.0); Alkaline Phosphatase 112 U/L (39-117); Anion Gap 15 (12-20); Aspartate Amino Transferase 11 U/L (5-37); Bilirubin Total 0.7 mg/dL (0.0-1.0); Blood Urea Nitrogen 16 mg/dL (9-16); Calcium 8.5 mg/dL (8.4-10.2); Carbon Dioxide 23 mmol/L (22-29); Chloride 112 mmol/L (96-108); Creatinine Clr Calc Pharmacy 86.2; Estimated Glomerular Filt Rate > 60; Glucose Random 103 mg/dL (60-115); Lipase 15 U/L (8-78); Potassium 4.2 mmol/L (3.3-5.1); Sodium 146 mmol/L (135-145); Total Protein 6.8 g/dL (6.5-8.0)
[2023-09-25 10:16] LABS: Troponin-I High Sensitivity < 2.7 ng/L (<3.5-35.0)
--- NOTE | 2023-09-25 13:08 | P.HPHOSP_ITS ---
History of Present Illness Date of Service: 09/25/23 Attending physician on admission: Stevie Pratt Chief Complaint: Abdominal pain Pt is a 63-year-old male with a PMH significant for?HTN, HLD, anemia, chronic venous stasis dermatitis, alcohol use disorder, left kidney cancer, hx of DVT no longer on anticoagulation, hx of leg edema s/p venous ablation in 1998, and gout who presents to the ED with?abdominal pain, nausea, vomiting, and diarrhea x1 day. Patient states symptoms began this morning around 02:00 when patient awoke with severe abdominal pain and began experiencing uncontrollable watery diarrhea. Also has had nausea and vomiting with associated throat discomfort, and some dizziness with standing. Patient states that he was recently hospitalized for right leg weakness and discharged to short-term rehab for 2 weeks; discharged home on 09/13/2023. Patient reports having loose stools/diarrhea every day while in rehab. Since being home stools have been better formed, but still reports stomach ?has not been 100%?. Also states he has had blood in his stool for a long time , most noticeable when he wipes. Cannot clarify exactly how long this has been going on but likely for many months; claims it was intensified while in rehab. Denies chest pain/pressure, palpitations. No shortness of breath. Chronic lower leg edema at baseline. In the ED pt was afebrile, tachycardic up to 97, and hypertensive up to 150/87. Labs were significant for H&H 8.8/27.5, sodium 146, cholesterol 112, lactic acid 2.4. No leukocytosis. Function around baseline. Hepatic function baseline. Troponins negative. UA negative for UTI. Tested negative for COVID, influenza type a and B. CXR showed no active disease. CT of abdomen and pelvis found new inflammatory process in the sigmoid and rectum and central mesentery, consistent with acute colitis. EKG demonstrated normal sinus rhythm with left anterior fascicular block with nonspecific T-wave abnormality and prolonged QTc of 492. Pt was treated with IVF, ondansetron, ceftriaxone, and Flagyl. Pt will be admitted to the hospital for treatment further evaluation of acute colitis. Review of Systems 2 Review of Systems: Abdominal pain Nausea, vomiting, diarrhea Chills Hematochezia No chest pain/pressure, palpitations Denies shortness of breath PMFSH Medical History Alcohol use disorder Hyperlipidemia Ascending aortic aneurysm Alcoholic steatohepatitis Seborrheic dermatitis DEBORAH (obstructive sleep apnea) History of rhabdomyolysis Hx of lower gastrointestinal bleeding Hx of sepsis History of DVT of lower extremity Chronic ulcer of leg Chronic venous stasis HTN (hypertension) Anemia Anemia Family History Mother Dementia Maternal Grandmother Dementia Surgical History Hx of colonoscopy Social History Household Members: Family Housing: Apartment Do you presently have visiting nurse or other home services: No Alcohol intake: current Alcohol intake frequency: other Alcohol type: hard liquor Comment: pt refused socks Patient Tobacco Use Status: Never used Tobacco Advance Directives: Yes Advance Directives on File: Yes Advance Directives Date on File: 04/13/22 service: No Current occupational status: disabled Meds Allergies Allergy/AdvReac Type Severity Reaction Status Date / Time azithromycin [AZITHROMYCIN] Allergy Severe FACIAL Verified 08/26/23 07:10 SWELLING hydrochlorothiazide [HCTZ] Allergy Severe Facial Verified 08/26/23 07:10 Swelling Home Medications Medication Instructions Recorded Confirmed Last Taken Type metoprolol succinate 50 mg 50 mg PO DAILY 10/30/22 09/23/23 Unknown History tablet,extended release 24 hr torsemide 20 mg tablet 2 tab PO DAILY 10/30/22 09/23/23 Unknown History allopurinol 100 mg tablet 100 mg PO DAILY 08/26/23 09/23/23 Unknown History allopurinol 300 mg tablet 300 mg PO DAILY 08/26/23 09/23/23 Unknown History ascorbic acid (vitamin C) 500 mg 1,000 mg PO DAILY 08/26/23 09/23/23 Unknown History tablet cholecalciferol (vitamin D3) 50 50 mcg PO DAILY 08/26/23 09/23/23 Unknown History mcg (2,000 unit) tablet losartan 25 mg tablet 25 mg PO QAM 08/26/23 09/23/23 Unknown History rosuvastatin 5 mg tablet 5 mg PO BEDTIME 08/26/23 09/23/23 Unknown History spironolactone 25 mg tablet 25 mg PO DAILY 08/26/23 09/23/23 Unknown History Physical Exam 2 Vital Signs and Narrative: Vital Signs: Last Vital Signs Temp 98.2 F 09/25/23 08:34 Pulse 91 09/25/23 08:34 Resp 14 09/25/23 08:34 BP 141/86 H 09/25/23 08:34 Pulse Ox 95 09/25/23 08:34 O2 Del Method Room Air 09/25/23 08:34 BMI result Body Mass Index 36.6 Constitutional: Alert, disheveled, in no acute distress. Mental Status: Oriented to person, place and time. Eyes: Pupils are equal, round, and reactive to light. Ear, Nose, and Throat: Oropharynx clear, mucous membranes moist. Ears and nose without deformities. Trachea midline. Respiratory: Clear to auscultation bilaterally. No wheezing, rales, or rhonchi. Cardiovascular: S1, S2, tachy. No murmurs, rubs, or gallops. Gastrointestinal: Abdomen soft, obese, diffusely tender. Neurologic: Cranial nerves II-XII are grossly intact bilaterally. No focal neurological deficits. Moves all extremities spontaneously. Skin: Warm, dry. Stage two decubitus ulcer on buttocks bilaterally. See picture below. Musculoskeletal: No cyanosis or clubbing. Extremities: Non-pitting bilateral edema. Venous stasis dermatitis bilaterally. Psychiatric: Normal mood and affect. Results Labs 09/25/23 09:05 09/25/23 09:05 Labs: Laboratory Results - last 24 hr 09/25/23 09:05 MCV 84.9 MCH 27.2 MCHC 32.0 RDW 17.0 H Plt Count 120 L D MPV 7.9 L Immature Gran % (Auto) 0.4 Neut % (Auto) 66.9 Lymph % (Auto) 25.4 Mellette % (Auto) 4.8 Eos % (Auto) 2.1 Baso % (Auto) 0.4 Lymph # (Auto) 2.1 Mellette # (Auto) 0.4 Eos # (Auto) 0.2 Baso # (Auto) 0.0 Abs Immat Gran (auto) 0.03 Absolute Neuts (auto) 5.5 Absolute Nucleated RBC 0.000 Nucleated RBC % (auto) 0.0 PT 12.5 INR 1.0 Anion Gap 15 Estim Creat Clear Calc 86.2 Estimated GFR > 60 Random Glucose 103 Calcium 8.5 Total Bilirubin 0.7 AST 11 ALT 5 Alkaline Phosphatase 112 Total Protein 6.8 Albumin 3.4 L Lipase 15 COVID-19 (TORSTEN) Negative COVID-19 Clin Com See Note Influenza Type A (NADIYA) Negative Influenza Type B (NADIYA) Negative Influenza A & B Note See Note Imaging Radiologist's Impressions: Impressions Chest X-Ray 09/25/23 08:26 IMPRESSION: No active disease given limitations of AP portable technique. Abdomen/Pelvis CT 09/25/23 10:20 IMPRESSION: New inflammatory process, in the sigmoid and rectum and central mesentery. Please see above comments and discussion. In addition, please refer to the prior abdomen CT for a full discussion of the abnormal solid mass in the left kidney which is less well appreciated on this noncontrast study. Fleischner guidelines were followed. Assessment and Plan (1) Colitis: Status: Acute Plan Pt is a 63-year-old male with a PMH significant for?HTN, HLD, anemia, chronic venous stasis dermatitis, alcohol use disorder, left kidney cancer, hx of DVT no longer on anticoagulation, hx of leg edema s/p venous ablation in 1998, and gout who presents to the ED with?abdominal pain, nausea, vomiting, and diarrhea x1 day. Pt will be admitted to the hospital for treatment further evaluation of acute colitis. Colitis Pt has been experiencing abdominal pain and N/V/D x1 day Ct showing inflammation of rectum and sigmoid, consistent with acute colitis Pt does not meet sepsis criteria: Tachycardia, but no tachypnea, leukocytosis, or fever; lactic acid 2.4 Patient given IVF and started broad-spectrum antibiotics in the ED Will treat with ceftriaxone and Flagyl Will give 1 L D5 half saline Clear liquid diet for now, advance as tolerated Lactic acidosis Initial lactic acid 2.4 Likely secondary to vomiting, not sepsis Patient has been started on broad-spectrum antibiotics and given IVF in ED Will be placed on maintenance fluids Mild hypernatremia Sodium 135 at time of presentation Likely secondary to GI losses, reduced p.o. intake Will place on D5 half saline x 1L Follow BMP Iron-deficiency anemia H&H .04/14.5, in line with low baseline Followed by Dr. Peters in Heme-Onc Question of hematochezia Possibly secondary to hemorrhoids/buttock skin breakdown vs C-Diff/colitis Follow H&H Will place in pneumatic boots for DVT prophylaxis Stage II decubitus ulcer of bilateral buttocks Air loss mattress Patient positioning q.2h Wound care consult Left renal mass Suspicious for malignancy Followed by Dr. Kennedy in Nephrology Follow-up outpatient for nephrectomy/biopsy Chronic venous stasis with lower leg edema Will hold diuretics for now d/t mild dehydration/GI losses Resume as warranted HTN Continue metoprolol, losartan Gout Continue allopurinol HLD Continue statin Full Code Attending:?Dr. Pratt DVT Prophylaxis: Pneumatic boots Pt will require a hospitalization of at least two nights for treatment of?intractable nausea, vomiting, abdominal pain in setting of acute colitis. Given patient's significant comorbidities and inability to tolerate p.o. intake, patient will require hospitalization for administration of IVF, IV antibiotics, and close monitoring of BMP and CBC. Quality Stroke Does the patient have a stroke diagnosis?: No VTE Prior VTE?: Yes VTE Risk Level:: Medical - moderate - high VTE Device Contraindication: N/A - Device Ordered VTE Drug Contraindication: Treatment Not Indicated
--- NOTE | 2023-09-25 13:19 | MHC.EDTECH ---
This pct along with another pct went into clean patient up from being completely soiled, bed was fully changed and ROSALINDA ewing Aware
[2023-09-25 13:26] LABS: Appearance Urine Clear; Color Urine Yellow; Glucose Urine UA Negative (Negative); Leukocyte Esterase Urine Negative (Negative); Nitrite Urine Negative (Negative); PH 5.5 (5.0-9.0); Specific Gravity - Urine 1.015 (1.005-1.025); Urine Blood Negative (Negative); Urine Ketones Negative (Negative); Urine Protein Trace mg/dL (Neg-Trace)
--- NOTE | 2023-09-25 14:00 | PC.NURSE ---
pt seen by hosp manjit harper). pt aware of plan of care for admission to hosp. pt c/o n/v, aware.
[2023-09-25 14:09] LABS: Lactic Acid 2.4 mmol/L (0.5-2.0)
[2023-09-25] MEDS: cefTRIAXone sodium 1 GM in 0.9 % Sodium Chloride 50 ML IV (14:27)
[2023-09-25 14:31] VITALS: BP 145/88; PULSE 89; RESP 18; TEMP 36.7; O2SAT 95
[2023-09-25 15:16] LABS: Reflex Lactate? Lactic Acid Added
--- NOTE | 2023-09-25 16:07 | PHA.MEDREC ---
Pharmacy Consult ? Medication Reconciliation Pharmacy has completed the medication reconciliation. Patient reports he forgot his list at home so does not know. Attempted to call [facility] for a discharge med list, but the person who I was transfer to said I don't have the patient and hung up. Tried to re-call but then no one answer. Patient reported medication arer from [facility] pharmacy, called the pharmacy and only recent medication is Losartan and all other medications have been a year since filling. Patient recently in the ER on 08/26/23, med rec completed by this [facility] when patient had the list. Patient reports still talking all medication on that list. Cleo John, PharmD
[2023-09-25 16:09] LABS: ~Lactic Acid-LAB USE ONLY 1.9 mmol/L (0.5-2.0)
[2023-09-25] MEDS: Prochlorperazine Edisylate 10 MG/2 ML VIAL 5 MG IVPUSH (16:52)
[2023-09-25] MEDS: metroNIDAZOLE/NS 500 MG/100 ML PIGGYBACK 100 MG IV (16:54)
--- NOTE | 2023-09-25 17:02 | PC.NURSE ---
pt was on bedpan for loose BM and started vomiting. was supine and found coughing by RN. slightly deeper red color to face. immediately seated uptight and then vomited small amount into bag. no sob following incident. aaware and cxr requested. pt isnot clearing throat 10 minutes after incident. givennause meds.
[2023-09-25 17:03] VITALS: BP 136/73; PULSE 94; RESP 18; TEMP 36.9; O2SAT 95
[2023-09-25 18:18] LABS: CDiff Gene PCR NEGATIVE (Negative)
[2023-09-25] MEDS: Dextrose 5 % and 0.45 % NaCl 1,000 ML 100 ML IVCONT (18:32)
--- NOTE | 2023-09-25 19:47 | PC.NURSE ---
This RN took over pt care @ 1900. Pt ca&ox4, no signs of distress. Pt resting quietly in bed watching tv. Plan of care ongoing.
--- NOTE | 2023-09-25 22:08 | PC.NURSE ---
Pt requested and given water. Pt sitting up in bed watching tv. Plan of care ongoing.
[2023-09-25 23:36] VITALS: BP 144/81; PULSE 55; RESP 16; TEMP 36.6; O2SAT 98
[2023-09-26] VITALS (9 sets, daily range): BP systolic 133–160; BP diastolic 72–84; PULSE 50–96; RESP 16–18; TEMP 36.3–37.1; O2SAT 94–100; BMI 35.3
[2023-09-26] MEDS: metroNIDAZOLE/NS 500 MG/100 ML PIGGYBACK 100 MG IV ×4 (00:23→23:34)
[2023-09-26] MEDS: 0.9 % Sodium Chloride Flush 3 ML SYRINGE IVFLUSH (08:07)
--- NOTE | 2023-09-26 08:49 | MHC.CM.PN ---
PT REPORTS HE LIVES WITH HIS MOTHER WHO HE PROVIDES CARE FOR HE REPORTS HE IS INDEPENDENT WITH HIS CARE AND HAS NO SERVICES PT REPORTS HE HAS A CANE AND A WALKER BUT DOES NOT USE THEM AT THIS TIME PT HAS A HCP ON FILE PCP: LYNN GUTIERREZ DCP: HOME, PT DOES NOT HAVE A RIDE OR CLOTHES WITH HIM CM WILL SEE IF THERE ARE CLOTHES AVAILABLE, PT COULD TAKE THE SHUTTLE VS LIFT
[2023-09-26 09:27] LABS: Adenovirus F 40/41 Not Detected (Not Detect.); Astrovirus Not Detected (Not Detect.); Campylobacter Not Detected (Not Detect.); Cryptosporidium Not Detected (Not Detect.); Cyclospora cayetanensis Not Detected (Not Detect.); E. coli EAEC Not Detected (Not Detect.); E. coli EPEC Not Detected (Not Detect.); E. coli ETEC Not Detected (Not Detect.); E. coli STEC Not Detected (Not Detect.); Entamoeba histolytica Not Detected (Not Detect.); Giardia lamblia Not Detected (Not Detect.); Norovirus GI/GII Not Detected (Not Detect.); Plesiomonas shigelloides Not Detected (Not Detect.); Rotavirus A Not Detected (Not Detect.); Salmonella Not Detected (Not Detect.); Sapovirus Not Detected (Not Detect.); Shigella sp./EIEC Not Detected (Not Detect.); Vibrio Not Detected (Not Detect.); Vibrio Cholerae Not Detected (Not Detect.); Yersinia enterocolitica Not Detected (Not Detect.)
[2023-09-26 09:58] LABS: Hematocrit 26.7 % (42.0-52.0); Hemoglobin 8.3 g/dl (14.0-18.0); Mean Corpuscular HGB Conc 31.1 g/dl (31.0-36.0); Mean Corpuscular Hemoglobin 27.3 pg (27.0-33.0); Mean Corpuscular Volume 87.8 fL (80.0-98.0); Mean Platelet Volume 8.8 fL (9.4-12.4); Red Blood Count 3.04 X10*6/uL (4.60-5.80); Red Cell Distribution Width 17.1 % (11.0-16.0); White Blood Count 6.4 X10*3/uL (4.8-10.8)
[2023-09-26 10:00] LABS: Platelet Count 97 X10*3/uL (160-400)
[2023-09-26 10:18] LABS: Anion Gap 13 (12-20); Blood Urea Nitrogen 12 mg/dL (9-16); Calcium 8.6 mg/dL (8.4-10.2); Carbon Dioxide 25 mmol/L (22-29); Chloride 107 mmol/L (96-108); Estimated Glomerular Filt Rate > 60; Glucose Random 117 mg/dL (60-115); Potassium 3.4 mmol/L (3.3-5.1); Sodium 142 mmol/L (135-145)
--- NOTE | 2023-09-26 13:28 | HO.PM.IMPN ---
Subjective Subjective Date of Service: 09/26/23 Interval History: Complaining of diarrhea soon after eating clear liquid diet, developed abdominal cramping, and loose watery stool, denies nausea, no vomiting, no fevers, no chills, offers no acute symptoms. Review of Systems All other system reviewed and negative. Physical Exam Vital Signs: Vital Signs: Last Vital Signs Temp 98.7 F 09/26/23 12:00 Pulse 66 09/26/23 12:00 Resp 18 09/26/23 12:00 BP 141/78 H 09/26/23 12:00 Pulse Ox 99 09/26/23 12:00 O2 Del Method Room Air 09/26/23 12:00 BMI result Body Mass Index 35.3 Const: Other: General resting comfortably in no acute distress. Anicteric sclera Neck supple no JVD. CVS regular rate rhythm, Respiratory lungs clear to auscultation, no respiratory distress, no wheeze, no rhonchi. Gastrointestinal abdomen soft, obese, question baseline, non tender, bowel sounds audible, no guarding , no rigidity. Extremities dry scaly skin Neuro nonfocal Back stage II bilateral buttock ulcers Objective Data Active Medications Acetaminophen (Acetaminophen 325 Mg Tablet) 650 mg PO Q6H PRN PRN Reason: Pain, Mild (Pain Scale 1-3) Benzonatate (Benzonatate 100 Mg Capsule) 100 mg PO TID PRN PRN Reason: Cough Docusate Sodium (Docusate Sodium 100 Mg Capsule) 100 mg PO DAILY PRN PRN Reason: Constipation Ceftriaxone Sodium 1 gm/ (Sodium Chloride) 50 mls @ 100 mls/hr IV Q24H [facility] Metronidazole (Flagyl) 500 mg in 100 mls @ 100 mls/hr IV Q8H [facility] Last Infusion: 09/26/23 09:23 Dose: Infused Documented By: KATYA Melatonin (Melatonin 3 Mg Tablet) 6 mg PO BEDTIME PRN PRN Reason: Insomnia Ondansetron HCl (Ondansetron Hcl 4 Mg/2 Ml Vial) 4 mg IVPUSH Q8H PRN PRN Reason: Nausea and Vomiting Sodium Chloride (0.9 % Sodium Chloride Flush 3 Ml Syringe) 3 ml IVFLUSH QSHIFT [facility] Last Admin: 09/26/23 08:07 Dose: 3 ml Documented By: KATYA Labs 09/26/23 09:23 09/26/23 09:23 Labs: Laboratory Results - last 24 hr 09/25/23 09/25/23 09/25/23 13:12 15:54 17:08 MCV MCH MCHC RDW Plt Count MPV Absolute Nucleated RBC Nucleated RBC % (auto) Anion Gap Estim Creat Clear Calc Estimated GFR Random Glucose Lactic Acid 2.4 H* Lactic Acid F/U @ 2Hr 1.9 Calcium Stl C. cayetanensis PCR Not Detected Stool Rotavirus A PCR Not Detected Stl Adenov F 40/41 PCR Not Detected Stool Astrovirus (PCR) Not Detected Stool Campylobacter PCR Not Detected Stool Cryptosporidium PCR Not Detected Stl Sh Tox Pr E STEC PCR Not Detected Stool E coli O157 PCR Not applicable Stl Enterotoxigenic E PCR Not Detected Stool EPEC (PCR) Not Detected Stool EAEC (PCR) Not Detected Stl E. histolytica PCR Not Detected Stool Giardia Lamblia PCR Not Detected Stl P. shigelloides PCR Not Detected Stool Salmonella PCR Not Detected Stool Sapovirus (PCR) Not Detected Stl Shigella/EIEC PCR Not Detected St Y.enterocolitica PCR Not Detected Stool Vibrio (PCR) Not Detected Stl Vibrio cholerae PCR Not Detected Stl Norovirus GI/GII PCR Not Detected C. difficile Tox B Gene NEGATIVE 09/26/23 09:23 MCV 87.8 MCH 27.3 MCHC 31.1 RDW 17.1 H Plt Count 97 L MPV 8.8 L Absolute Nucleated RBC 0.000 Nucleated RBC % (auto) 0.0 Anion Gap 13 Estim Creat Clear Calc 88.0 Estimated GFR > 60 Random Glucose 117 H Lactic Acid Lactic Acid F/U @ 2Hr Calcium 8.6 Stl C. cayetanensis PCR Stool Rotavirus A PCR Stl Adenov F 40/41 PCR Stool Astrovirus (PCR) Stool Campylobacter PCR Stool Cryptosporidium PCR Stl Sh Tox Pr E STEC PCR Stool E coli O157 PCR Stl Enterotoxigenic E PCR Stool EPEC (PCR) Stool EAEC (PCR) Stl E. histolytica PCR Stool Giardia Lamblia PCR Stl P. shigelloides PCR Stool Salmonella PCR Stool Sapovirus (PCR) Stl Shigella/EIEC PCR St Y.enterocolitica PCR Stool Vibrio (PCR) Stl Vibrio cholerae PCR Stl Norovirus GI/GII PCR C. difficile Tox B Gene Assessment and Plan (1) Colitis: Status: Acute Plan 63-year-old male with a PMH significant for?HTN, HLD, anemia, chronic venous stasis dermatitis, alcohol use disorder, left kidney cancer, hx of DVT no longer on anticoagulation, hx of leg edema s/p venous ablation in 1998, and gout who presents to the ED with?abdominal pain, nausea, vomiting, and diarrhea x1 day. Pt will be admitted to the hospital for treatment further evaluation of acute colitis. Acute colitis Persistent diarrhea and abdominal cramping Normal CBC blood cultures x2 negative Ct showing inflammation of rectum and sigmoid, consistent with acute colitis cont. iv ceftriaxone and Flagyl started on 09/25 Clear liquid diet for now, advance as tolerated Lactic acidosis Initial lactic acid 2.4 resolved with IV fluid Likely secondary to vomiting, not sepsis Mild hypernatremia Sodium 146 on admission improved to 142 with IV fluids Follow BMP Iron-deficiency anemia H&H 8.8/27.5, in line with low baseline Followed by Dr. Peters in Heme-Onc Question of hematochezia/acute on chronic normocytic anemia No active GI bleed likely dilutional,Possibly secondary to hemorrhoids/buttock skin breakdown history of anemia of chronic disease, normal iron studies in the past Will check stool guaiac follow CBC Stage II decubitus ulcer of bilateral buttocks Air loss mattress Patient positioning q.2h Wound care consult Left renal mass Suspicious for malignancy Followed by Dr. Kennedy in Nephrology Follow-up outpatient for nephrectomy/biopsy Chronic venous stasis with lower leg edema diuretics on hold for now d/t mild dehydration/GI losses Resume as warranted HTN Continue metoprolol, losartan, hold spironolactone and torsemide Gout Continue allopurinol HLD Continue statin Full Code DVT Prophylaxis: Pneumatic boots Pt will require continued inpatient hospitalization for persistent nausea abdominal pain inability to take by mouth on IV antibiotics and IV fluids Quality Stroke Does the patient have a stroke diagnosis?: No VTE Prior VTE?: Yes VTE Risk Level:: Medical - moderate - high VTE Device Contraindication: N/A - Device Ordered VTE Drug Contraindication: Treatment Not Indicated
[2023-09-26] MEDS: cefTRIAXone sodium 1 GM in 0.9 % Sodium Chloride 50 ML IV (14:38)
[2023-09-26] MEDS: Losartan Potassium 25 MG TABLET PO (18:32)
[2023-09-27] MEDS: 0.9 % Sodium Chloride Flush 3 ML SYRINGE IVFLUSH ×4 (00:15→23:03)
[2023-09-27 04:00] VITALS: BP 135/85; PULSE 80; RESP 18; TEMP 36.8; O2SAT 98
[2023-09-27 06:27] LABS: Hematocrit 24.5 % (42.0-52.0); Hemoglobin 7.7 g/dl (14.0-18.0); Mean Corpuscular HGB Conc 31.4 g/dl (31.0-36.0); Mean Corpuscular Hemoglobin 27.1 pg (27.0-33.0); Mean Corpuscular Volume 86.3 fL (80.0-98.0); Mean Platelet Volume 9.7 fL (9.4-12.4); Red Blood Count 2.84 X10*6/uL (4.60-5.80); Red Cell Distribution Width 16.7 % (11.0-16.0); White Blood Count 6.5 X10*3/uL (4.8-10.8)
[2023-09-27 06:29] LABS: Platelet Count 88 X10*3/uL (160-400)
[2023-09-27 06:58] LABS: Anion Gap 13 (12-20); Blood Urea Nitrogen 10 mg/dL (9-16); Calcium 8.2 mg/dL (8.4-10.2); Carbon Dioxide 24 mmol/L (22-29); Chloride 105 mmol/L (96-108); Creatinine Clr Calc Pharmacy 100.2; Estimated Glomerular Filt Rate > 60; Glucose Random 92 mg/dL (60-115); Potassium 3.4 mmol/L (3.3-5.1); Sodium 139 mmol/L (135-145)
[2023-09-27 07:48] VITALS: BP 152/82; PULSE 72; RESP 18; TEMP 36.9; O2SAT 99
[2023-09-27] MEDS: allopurinoL 300 MG TABLET PO (07:57)
[2023-09-27] MEDS: Metoprolol Succinate ER 50 MG TAB.ER.24H PO (07:58)
[2023-09-27] MEDS: Losartan Potassium 25 MG TABLET PO (07:59)
[2023-09-27] MEDS: Magnesium Oxide 400 MG TABLET PO (07:59)
[2023-09-27] MEDS: metroNIDAZOLE/NS 500 MG/100 ML PIGGYBACK 100 MG IV ×3 (08:00→23:02)
[2023-09-27] MEDS: Loperamide HCl 2 MG CAPSULE PO ×2 (12:25→23:03)
--- NOTE | 2023-09-27 12:26 | MHC.CM.PN ---
per rounds no dc date at this time dc plan remains home no services
--- NOTE | 2023-09-27 13:02 | MHC.CLN ---
F/U CONTINUES WITH CLEAR LIQUID DIET. POOR PO OF CL DIET. PT WITH INCREASED NUTRITION RISK R/T PRESSURE INJURY, STAGE II BILATERAL BUTTOCKS. IF DIET TO ADVANCE; RECOMMEND BLAND DIET R/T COLITIS. RECEIVING ENSURE CLEAR TID TO PROMOTE WOUND HEALING. SUPPLEMENT PROVIDES 720KCALS, 24G PROTEIN. MONITOR PO INTAKE AND ENCOURAGE SUPPLEMENT.
[2023-09-27] MEDS: cefTRIAXone sodium 1 GM in 0.9 % Sodium Chloride 50 ML IV (14:37)
[2023-09-27 15:03] VITALS: BP 150/74; PULSE 55; RESP 18; TEMP 36.1; O2SAT 100
[2023-09-27 15:07] LABS: OBS Int Ctl Valid YES; OBS1 NEGATIVE (NEGATIVE)
--- NOTE | 2023-09-27 15:33 | HO.PM.IMPN ---
Subjective Subjective Date of Service: 09/27/23 Interval History: seen and examined this morning follow up for colitis reporting cramping abdominal pain and diarrhea with any po intake lower abdominal pain no nausea or vomiting Review of Systems Review of Systems: Yes all other systems are reviewed and are negative Constitutional Constitutional: Denies chills and Denies fever(s) Cardiovascular Cardiovascular: Denies chest pain, Denies palpitations and Denies dyspnea Respiratory Respiratory: Denies cough and Denies dyspnea Gastrointestinal Gastrointestinal: Reports abdominal pain, Reports diarrhea, Denies nausea and Denies vomiting Endocrine Endocrine: Denies palpitations Physical Exam Vital Signs: Vital Signs: Last Vital Signs Temp 96.9 F 09/27/23 15:03 Pulse 55 09/27/23 15:03 Resp 18 09/27/23 15:03 BP 150/74 H 09/27/23 15:03 Pulse Ox 100 09/27/23 15:03 O2 Del Method Room Air 09/27/23 15:03 BMI result Body Mass Index 35.3 Const: General: cooperative, comfortable, no acute distress, alert and awake Nutritional Appearance: overweight Orientation/consciousness: patient oriented x3 Resp: Effort & Inspection: normal respiratory effort, able to speak in complete sentences, no respiratory distress and no use of accessory muscles Cardio: Rate: regular rate GI: Other: +BS Inspection: No distended Palpation (GI): Soft to palpation Neuro: General: patient oriented x3, moves all extremities and CN's II-XI intact bilaterally Extrem: General: Yes no pedal edema Objective Data Active Medications Acetaminophen (Acetaminophen 325 Mg Tablet) 650 mg PO Q6H PRN PRN Reason: Pain, Mild (Pain Scale 1-3) Allopurinol (Allopurinol 300 Mg Tablet) 300 mg PO DAILY [facility] Last Admin: 09/27/23 07:57 Dose: 300 mg Documented By: KATYA Benzonatate (Benzonatate 100 Mg Capsule) 100 mg PO TID PRN PRN Reason: Cough Docusate Sodium (Docusate Sodium 100 Mg Capsule) 100 mg PO DAILY PRN PRN Reason: Constipation Ceftriaxone Sodium 1 gm/ (Sodium Chloride) 50 mls @ 100 mls/hr IV Q24H [facility] Last Infusion: 09/27/23 15:12 Dose: Infused Documented By: KATYA Metronidazole (Flagyl) 500 mg in 100 mls @ 100 mls/hr IV Q8H [facility] Last Admin: 09/27/23 15:07 Dose: 100 mls/hr Documented By: KATYA Loperamide HCl (Loperamide Hcl 2 Mg Capsule) 2 mg PO Q6H PRN PRN Reason: Diarrhea Last Admin: 09/27/23 12:25 Dose: 2 mg Documented By: KATYA Losartan Potassium (Losartan Potassium 25 Mg Tablet) 25 mg PO DAILY [facility]; Protocol Last Admin: 09/27/23 07:59 Dose: 25 mg Documented By: KATYA Magnesium Oxide (Magnesium Oxide 400 Mg Tablet) 400 mg PO DAILY [facility] Last Admin: 09/27/23 07:59 Dose: 400 mg Documented By: KATYA Melatonin (Melatonin 3 Mg Tablet) 6 mg PO BEDTIME PRN PRN Reason: Insomnia Metoprolol Succinate (Metoprolol Succinate Er 50 Mg Tab.Er.24h) 50 mg PO DAILY [facility]; Protocol Last Admin: 09/27/23 07:58 Dose: 50 mg Documented By: KATYA Ondansetron HCl (Ondansetron Hcl 4 Mg/2 Ml Vial) 4 mg IVPUSH Q8H PRN PRN Reason: Nausea and Vomiting Sodium Chloride (0.9 % Sodium Chloride Flush 3 Ml Syringe) 3 ml IVFLUSH QSHIFT [facility] Last Admin: 09/27/23 15:11 Dose: 3 ml Documented By: KATYA Labs 09/27/23 05:27 09/27/23 05:27 Labs: Laboratory Results - last 24 hr 09/27/23 09/27/23 05:27 14:41 MCV 86.3 MCH 27.1 MCHC 31.4 RDW 16.7 H Plt Count 88 L MPV 9.7 Absolute Nucleated RBC 0.000 Nucleated RBC % (auto) 0.0 Anion Gap 13 Estim Creat Clear Calc 100.2 Estimated GFR > 60 Random Glucose 92 Calcium 8.2 L Stool Occult Blood NEGATIVE Microbiology Microbiology Results: Microbiology 09/25/23 13:12 Blood Culture - Preliminary Blood - Venous No growth after 48 hours. 09/25/23 13:12 Blood Culture - Preliminary Blood - Venous No growth after 48 hours. Assessment and Plan (1) Colitis: Status: Acute Plan 63-year-old male with a PMH significant for?HTN, HLD, anemia, chronic venous stasis dermatitis, alcohol use disorder, left kidney cancer, hx of DVT no longer on anticoagulation, hx of leg edema s/p venous ablation in 1998, and gout who presents to the ED with?abdominal pain, nausea, vomiting, and diarrhea x1 day admitted for acute colitis. Acute colitis Persistent diarrhea and abdominal cramping Normal CBC blood cultures x2 negative Ct showing inflammation of rectum and sigmoid, consistent with acute colitis cont. iv ceftriaxone and Flagyl started on 09/25 Blood cultures negative GI panel and c dif negative Clear liquid diet for now given persistent abdominal pain and diarrhea, will consult GI Lactic acidosis Initial lactic acid 2.4 resolved with IV fluid Likely secondary to vomiting, not sepsis Mild hypernatremia resolved with IVF iron deficiency anemia and anemia of chronic disease H&H trending down, no active bleeding noted, heme negative Followed by Dr. Peters, on iron supplementation at baseline per previous hematology notes also recently diagnosed with left kidney cancer follow CBC Stage II decubitus ulcer of bilateral buttocks Air loss mattress Patient positioning q.2h Wound care consult Left renal mass outpatient follow up with Dr. Sow for nephrectomy/biopsy Chronic venous stasis with lower leg edema diuretics on hold for now d/t mild dehydration/GI losses Resume as warranted HTN Continue metoprolol, losartan hold spironolactone and torsemide Gout Continue allopurinol HLD Continue statin Full Code DVT Prophylaxis: Pneumatic boots Pt will require continued inpatient hospitalization for persistent nausea abdominal pain inability to take by mouth on IV antibiotics and IV fluids Quality Stroke Does the patient have a stroke diagnosis?: No VTE Prior VTE?: Yes VTE Risk Level:: Medical - moderate - high VTE Device Contraindication: N/A - Device Ordered VTE Drug Contraindication: Treatment Not Indicated
--- NOTE | 2023-09-27 16:27 | HO.WOUND ---
Wound Consult: Initial 63yr old?M admitted to [facility] on 09/25/23 - See progress notes and H&P for detailed history.? Wound consult placed for buttock wound POA .? Patient agreeable to assessment and photo documentation.? the patient reports baseline level of incontinence and reports he uses a brief. We discussed discontinue brief use - he reports understanding and reports he now has limited use. Patient was able to stand and buttock assessed - the area to bilateral buttock is scattered areas of partial and full thickness tissue loss. There are areas with adherent yellow slough and pink moist wound bed. the periwound is macerated in some areas, red and light purple remains blanchable throughout there is evidence of friction noted. Not consistent with pressure at this time. Bridge of nose -Pt reports he wears glasses 11/03 and sometime uses his CPAP. Etiology: Unstageable Pressure Injury ??Present on Admission Measurements: se charting for detailed measurements Wound Bed: adherent yellow scab vs dried slough - unable to appreciate wound bed at this time. Drainage / Odor: Dried crusted Edges: ? linear in appearance consistent with glasses shape Michelle wound: ?red slow to kiesha tissue No Induration, Fluctuance or Warmth noted Pain: denies Goals of Treatment: ? Mepilex foam dressing to aid in off loading and to protect from friction Bilateral lower legs were noted for venous dermatitis - no open wounds noted - he had thick hyperkerotinized layers in place but no wounds or drainage observed. Pt denies using creams consistently at home. MASD (Moisture Associated Skin Damage) Recommendations: 1. Turn and Reposition every 2 hours and as needed for patient comfort.? Use pillows or wedges to support off loading positions. 2. Off Load all bony prominences with use of pillows and heel boots if needed.? Apply Preventative foams where needed. ? 3. Monitor for incontinence and moisture control, use barrier creams when needed for prevention and treatment. 4. Provide adequate and supplemental nutrition.? 5. Order or Continue low air loss mattress. 6. When applicable maintain blood glucose levels per Providers order. 7. Bridge of Nose - Cleanse with ns moist gauze allow to dry. Apply skin prep wipe allow to dry. Cover wound bed with cut to size Mepilex foam Lite dressing. Peel back and assess Q shift and change every 3 days and PRN. 8. Bilateral Buttock - Off Load Pressure - Cleanse with PH balance spray or wipes, pat dry. ?Apply thin layer of Triad to wound bed - only pat and dab no scrub and rub when soiling occurs. Reapply thin layer PRN after each episode of incontinence. 9. Bilateral Lower Legs - Cleanse with Karlo [place] and warm water. Apply vaseline to bilateral lower legs daily. No cover dressing needed at this time. Re-consult wound care Nurse for wound deterioration or wound changes.
--- NOTE | 2023-09-27 18:27 | PM.EVENT ---
Event Note Date of Service: 09/27/23 Event Note: GI Consult-Full note dictated Imp: Seems c/w a relatively acute colitis based on his history and CT scan findings, infectious vs idiopathic IBD. Doubt ischemic given its distribution on the CT scan. Rec: Check stool specimens, including C.diff. Continue antibiotics. Will plan for a colonoscopy on Sat, 09/30, unless he dramatically improves before that. Full consent has been obtained for the colonoscopy, including risks of bleeding and perforation. He can have full liquids on Saturday if things are stable, but then back to clear liquids on Saturday for the colonoscopy prep(I will put in orders for the bowel prep). D/W patient in detail and he is comfortable with this plan. Thanks. Time Spent With Patient Time: Total time managing care of this patient today ____ minutes.
[2023-09-27 19:42] VITALS: BP 133/64; PULSE 60; RESP 16; TEMP 37.1; O2SAT 100
[2023-09-28] VITALS (7 sets, daily range): BP systolic 114–158; BP diastolic 60–79; PULSE 56–82; RESP 14–19; TEMP 36.2–37.3; O2SAT 97–99
--- NOTE | 2023-09-28 03:32 | CONS_ITS ---
DATE OF SERVICE: 09/27/2023 REASON FOR CONSULTATION: Abdominal pain, diarrhea, and abnormal CT scan of colon. HISTORY OF PRESENT ILLNESS: The patient is a 63-year-old male who describes that his bowel pattern had been normal up until early in August. He describes a brief stay in the ER here at [facility] for some type of leg injury for, which he may have received a day or 2 of IV antibiotics. He was then transferred to a rehab facility where he does not think he had any further antibiotics. However, at the rehab facility he began having diarrhea on a frequent and somewhat urgent basis. This would not occur every day, but was occurring most days. Prior to this, his bowel movements had been fairly regular and without any significant diarrhea. He attributed the diarrhea at the rehab facility to the food. After getting home about 2 weeks ago his GI symptoms persisted intermittently. However, they did seem to be improving as compared to what they were in the rehab facility. However, about 2 or 3 days ago, he was awakened with fairly severe lower abdominal pain. This was associated with some vomiting and diarrhea. There was no sign of any GI bleeding. He came to the ER and was admitted. He describes he has continued to have diarrhea, although the abdominal discomfort has improved. He does feel definitely bloated but also thinks this is better as well. He denies any known family history of colorectal cancer nor IBD. He describes a negative colonoscopy about 10 years ago in [place]. He denies any significant heartburn or dysphagia. Prior to the past month or so he was not having any chronic abdominal complaints. MEDICATIONS: At home included allopurinol, vitamin D, losartan, magnesium, metoprolol, rosuvastatin, spironolactone, and torsemide. Medications here in the hospital include acetaminophen, allopurinol, IV ceftriaxone, Colace, loperamide p.r.n., losartan, magnesium, melatonin, metoprolol, metronidazole, and Zofran p.r.n. PAST MEDICAL HISTORY: He describes a laparotomy as an infant for some type of bowel obstruction. Tonsillectomy. Vein surgery on his lower extremities. Medical problems include hypertension, hyperlipidemia, anemia, chronic venous stasis dermatitis, left-sided renal mass, history of DVT. Reported alcohol abuse. Sleep apnea. SOCIAL HISTORY: He has a girlfriend. He does not smoke. He denies any significant alcohol use at the present time. FAMILY HISTORY: Negative for GI malignancy nor inflammatory bowel disease. REVIEW OF SYSTEMS: CONSTITUTIONAL: He describes some trouble with his eating due to the postprandial diarrhea. SKIN: Without rash nor jaundice. CARDIAC: No chest pain. PULMONARY: No cough, no hemoptysis. GI: As above. URINARY: No dysuria, no hematuria. NEUROLOGIC: No headache or seizures. PHYSICAL EXAMINATION: GENERAL: The patient is alert pleasant male in no distress. SKIN: Warm and dry. EYES: Anicteric sclerae. NECK: Supple. CARDIAC: Normal S1, S2. ABDOMEN: Soft and slightly distended. The abdomen is somewhat tympanitic. There is no focal mass, rebound, or guarding. The abdominal exam is quite benign in regard to any tenderness. EXTREMITIES: Reveal bilateral lower extremity venous stasis disease. LABORATORY DATA: White blood cell count 6.5, hemoglobin 7.7, platelets 88,000. His hemoglobin at the time of admission on September 25 was 8.8 with a platelet count of 120,000. He does have a baseline anemia and thrombocytopenia as well. PT is 12.5 with INR 1.0. Normal electrolytes. BUN 10, creatinine 0.9, total bilirubin 1.4, AST 9, ALT less than 5, alkaline phosphatase 100, albumin 3.4. Normal electrolytes and renal function. He had a CT scan describing an inflammatory process in the region of the rectum and sigmoid colon with bowel wall thickening and associated inflammatory changes. There is some mesenteric stranding. Findings were consistent with an acute colitis. He was also noted to have a mass in the lower pole of the left kidney. IMPRESSION: Given the patient's clinical history, this seems consistent with some type of subacute colitis from either an infectious process such as Clostridium difficile versus underlying chronic inflammatory bowel disease. I doubt this represents ischemic colitis. Given his history of possible antibiotics in August and then subsequently spending time in the rehab facility, he may have contracted C difficile. At this point, I would recommend a colonoscopy for definitive evaluation if his symptoms persist. In the meantime, I would continue antibiotics. Stool specimens will need to be checked including C difficile. I will plan for colonoscopy with him on Saturday, September 30 unless there is dramatic improvement before that and/or he is found to have an infection that can be treated successfully. Full consent has been obtained for the colonoscopy, including risks of bleeding and perforation. He may have a full liquid diet tomorrow, but then be changed back to a clear liquid diet for Saturday. I would also recommend a transfusion for his Hemoglobin of less than 8. This has all been discussed with the patient in detail and he is comfortable with the plan. Thank you for the consultation. MD ENMANUEL Parisi/HELDER / [phone] CHETAN
[2023-09-28 05:32] LABS: Hematocrit 23.4 % (42.0-52.0); Hemoglobin 7.5 g/dl (14.0-18.0); Mean Corpuscular HGB Conc 32.1 g/dl (31.0-36.0); Mean Corpuscular Hemoglobin 27.4 pg (27.0-33.0); Mean Corpuscular Volume 85.4 fL (80.0-98.0); Mean Platelet Volume 9.7 fL (9.4-12.4); Red Blood Count 2.74 X10*6/uL (4.60-5.80); Red Cell Distribution Width 16.8 % (11.0-16.0); White Blood Count 6.9 X10*3/uL (4.8-10.8)
[2023-09-28 05:34] LABS: Platelet Count 71 X10*3/uL (160-400)
[2023-09-28 05:46] LABS: Anion Gap 12 (12-20); Blood Urea Nitrogen 8 mg/dL (9-16); Calcium 7.7 mg/dL (8.4-10.2); Carbon Dioxide 22 mmol/L (22-29); Chloride 104 mmol/L (96-108); Creatinine Clr Calc Pharmacy 101.4; Estimated Glomerular Filt Rate > 60; Glucose Random 91 mg/dL (60-115); Potassium 3.1 mmol/L (3.3-5.1); Sodium 135 mmol/L (135-145)
[2023-09-28] MEDS: metroNIDAZOLE/NS 500 MG/100 ML PIGGYBACK 100 MG IV ×3 (08:00→23:29)
[2023-09-28] MEDS: 0.9 % Sodium Chloride Flush 3 ML SYRINGE IVFLUSH ×3 (09:20→23:29)
[2023-09-28] MEDS: Losartan Potassium 25 MG TABLET PO (09:20)
[2023-09-28] MEDS: Potassium Chloride Packet 20 MEQ PACKET 40 MEQ PO (09:20)
[2023-09-28] MEDS: allopurinoL 300 MG TABLET PO (09:20)
[2023-09-28] MEDS: Magnesium Oxide 400 MG TABLET PO (09:20)
[2023-09-28] MEDS: Metoprolol Succinate ER 50 MG TAB.ER.24H PO (09:20)
[2023-09-28] MEDS: Acetaminophen 325 MG TABLET 650 MG PO (12:09)
--- NOTE | 2023-09-28 12:09 | PC.NURSE ---
pre medicated with Tylenol prior to 1 unit of PRBC Per Josh Oleary
--- NOTE | 2023-09-28 12:33 | HO.PM.IMPN ---
Subjective Subjective Date of Service: 09/28/23 Interval History: seen and examined this morning follow up for colitis still with diarrhea, abdominal pain a little better no vomiting Review of Systems Review of Systems: Yes all other systems are reviewed and are negative Constitutional Constitutional: Denies chills and Denies fever(s) Cardiovascular Cardiovascular: Denies chest pain Gastrointestinal Gastrointestinal: Reports diarrhea, Denies nausea and Denies vomiting Physical Exam Vital Signs: Vital Signs: Last Vital Signs Temp 98 F 09/28/23 07:01 Pulse 82 09/28/23 07:01 Resp 17 09/28/23 07:01 BP 158/79 H 09/28/23 07:01 Pulse Ox 99 09/28/23 07:01 O2 Del Method Room Air 09/28/23 07:01 BMI result Body Mass Index 35.3 Const: General: cooperative, comfortable, no acute distress, alert and awake Nutritional Appearance: overweight Orientation/consciousness: patient oriented x3 Resp: Effort & Inspection: normal respiratory effort, able to speak in complete sentences, no respiratory distress and no use of accessory muscles Cardio: Rate: regular rate GI: Other: +BS Inspection: No distended Palpation (GI): Soft to palpation Skin: Other: lower extremities dry scaly skin Neuro: General: patient oriented x3, moves all extremities and CN's II-XI intact bilaterally Extrem: General: Yes no pedal edema Objective Data Active Medications Acetaminophen (Acetaminophen 325 Mg Tablet) 650 mg PO Q6H PRN PRN Reason: Pain, Mild (Pain Scale 1-3) Last Admin: 09/28/23 12:09 Dose: 650 mg Documented By: LESTER Allopurinol (Allopurinol 300 Mg Tablet) 300 mg PO DAILY [facility] Last Admin: 09/28/23 09:20 Dose: 300 mg Documented By: LESTER Benzonatate (Benzonatate 100 Mg Capsule) 100 mg PO TID PRN PRN Reason: Cough Docusate Sodium (Docusate Sodium 100 Mg Capsule) 100 mg PO DAILY PRN PRN Reason: Constipation Ceftriaxone Sodium 1 gm/ (Sodium Chloride) 50 mls @ 100 mls/hr IV Q24H [facility] Last Infusion: 09/27/23 15:12 Dose: Infused Documented By: KATYA Metronidazole (Flagyl) 500 mg in 100 mls @ 100 mls/hr IV Q8H [facility] Last Infusion: 09/28/23 09:24 Dose: Infused Documented By: LESTER Loperamide HCl (Loperamide Hcl 2 Mg Capsule) 2 mg PO Q6H PRN PRN Reason: Diarrhea Last Admin: 09/27/23 23:03 Dose: 2 mg Documented By: VICENTE Losartan Potassium (Losartan Potassium 25 Mg Tablet) 25 mg PO DAILY [facility]; Protocol Last Admin: 09/28/23 09:20 Dose: 25 mg Documented By: LESTER Magnesium Oxide (Magnesium Oxide 400 Mg Tablet) 400 mg PO DAILY [facility] Last Admin: 09/28/23 09:20 Dose: 400 mg Documented By: LESTER Melatonin (Melatonin 3 Mg Tablet) 6 mg PO BEDTIME PRN PRN Reason: Insomnia Metoprolol Succinate (Metoprolol Succinate Er 50 Mg Tab.Er.24h) 50 mg PO DAILY [facility]; Protocol Last Admin: 09/28/23 09:20 Dose: 50 mg Documented By: LESTER Ondansetron HCl (Ondansetron Hcl 4 Mg/2 Ml Vial) 4 mg IVPUSH Q8H PRN PRN Reason: Nausea and Vomiting Sodium Chloride (0.9 % Sodium Chloride Flush 3 Ml Syringe) [facility] Admin: 09/28/23 09:20 Dose: 3 ml Documented By: LESTER Labs 09/28/23 05:08 09/28/23 05:08 Labs: Laboratory Results - last 24 hr 09/27/23 09/28/23 09/28/23 14:41 05:08 09:56 MCV 85.4 MCH 27.4 MCHC 32.1 RDW 16.8 H Plt Count 71 L MPV 9.7 Absolute Nucleated RBC 0.000 Nucleated RBC % (auto) 0.0 Anion Gap 12 Estim Creat Clear Calc 101.4 Estimated GFR > 60 Random Glucose 91 Calcium 7.7 L D Stool Occult Blood NEGATIVE Blood Type O Negative Antibody Screen NEGATIVE Crossmatch See Detail Microbiology Microbiology Results: Microbiology 09/25/23 13:12 Blood Culture - Preliminary Blood - Venous No growth after 48 hours. 09/25/23 13:12 Blood Culture - Preliminary Blood - Venous No growth after 48 hours. Assessment and Plan (1) Colitis: Status: Acute (2) Hypokalemia: Status: Acute Plan 63-year-old male with a PMH significant for?HTN, HLD, anemia, chronic venous stasis dermatitis, alcohol use disorder, left kidney cancer, hx of DVT no longer on anticoagulation, hx of leg edema s/p venous ablation in 1998, and gout who presents to the ED with?abdominal pain, nausea, vomiting, and diarrhea x1 day admitted for acute colitis. Acute colitis Persistent diarrhea and abdominal cramping Normal CBC blood cultures x2 negative Ct showing inflammation of rectum and sigmoid, consistent with acute colitis cont. iv ceftriaxone and Flagyl started on 09/25 Blood cultures negative GI panel and c dif negative seen by GI - plan for colonoscopy on Saturday 09/30, full liquids today and then back to clears tomorrow Lactic acidosis Initial lactic acid 2.4 resolved with IV fluid Likely secondary to vomiting, not sepsis Mild hypernatremia resolved with IVF iron deficiency anemia and anemia of chronic disease H&H trending down, no active bleeding noted, heme negative Followed by Dr. Peters, on iron supplementation at baseline per previous hematology notes also recently diagnosed with left kidney cancer H/H trending down, will transfuse 1u rbc follow CBC hypokalemia due to limited po intake po replacement follow BMP Stage II decubitus ulcer of bilateral buttocks Air loss mattress Patient positioning q.2h Wound care consult Left renal mass outpatient follow up with Dr. Sow for nephrectomy/biopsy Chronic venous stasis with lower leg edema diuretics on hold for now d/t mild dehydration/GI losses Resume as warranted HTN Continue metoprolol, losartan hold spironolactone and torsemide Gout Continue allopurinol HLD Continue statin Full Code DVT Prophylaxis: Pneumatic boots Pt will require continued inpatient hospitalization for persistent nausea abdominal pain inability to take by mouth on IV antibiotics and IV fluids Quality Stroke Does the patient have a stroke diagnosis?: No VTE Prior VTE?: Yes VTE Risk Level:: Medical - moderate - high VTE Device Contraindication: N/A - Device Ordered VTE Drug Contraindication: Treatment Not Indicated
--- NOTE | 2023-09-28 13:18 | PC.NURSE ---
unit of PRBC up and infusing no s&s of reaction
[2023-09-28] MEDS: cefTRIAXone sodium 1 GM in 0.9 % Sodium Chloride 50 ML IV (16:19)
[2023-09-29 03:31] VITALS: BP 126/67; PULSE 60; RESP 16; TEMP 36.5; O2SAT 95
[2023-09-29 06:29] LABS: Anion Gap 13 (12-20); Blood Urea Nitrogen 9 mg/dL (9-16); Calcium 7.7 mg/dL (8.4-10.2); Carbon Dioxide 21 mmol/L (22-29); Chloride 104 mmol/L (96-108); Estimated Glomerular Filt Rate > 60; Glucose Random 84 mg/dL (60-115); Potassium 3.4 mmol/L (3.3-5.1); Sodium 135 mmol/L (135-145)
[2023-09-29 06:30] LABS: Hematocrit 24.4 % (42.0-52.0); Mean Corpuscular HGB Conc 32.8 g/dl (31.0-36.0); Mean Corpuscular Hemoglobin 27.6 pg (27.0-33.0); Mean Corpuscular Volume 84.1 fL (80.0-98.0); Mean Platelet Volume 9.5 fL (9.4-12.4); Platelet Count 72 X10*3/uL (160-400); Red Cell Distribution Width 16.5 % (11.0-16.0); White Blood Count 5.6 X10*3/uL (4.8-10.8)
[2023-09-29 07:02] VITALS: BP 154/76; PULSE 58; RESP 16; TEMP 35.5; O2SAT 100
[2023-09-29] MEDS: metroNIDAZOLE/NS 500 MG/100 ML PIGGYBACK 100 MG IV ×3 (09:05→23:51)
[2023-09-29] MEDS: Losartan Potassium 25 MG TABLET PO (09:06)
[2023-09-29] MEDS: 0.9 % Sodium Chloride Flush 3 ML SYRINGE IVFLUSH ×3 (09:06→23:51)
[2023-09-29] MEDS: Metoprolol Succinate ER 50 MG TAB.ER.24H PO (09:06)
[2023-09-29] MEDS: allopurinoL 300 MG TABLET PO (09:06)
[2023-09-29] MEDS: Magnesium Oxide 400 MG TABLET PO (09:06)
--- NOTE | 2023-09-29 10:43 | P.PNIM_ITS ---
Subjective Subjective Date of Service: 09/29/23 Interval History: seen and examined this morning follow up for colitis diarrhea slowing down somewhat bloating, no abdominal pain. no fever, chills. Review of Systems Review of Systems: Yes all other systems are reviewed and are negative Constitutional Constitutional: Denies chills and Denies fever(s) Cardiovascular Cardiovascular: Denies chest pain, Denies palpitations and Denies dyspnea Respiratory Respiratory: Denies cough and Denies dyspnea Endocrine Endocrine: Denies palpitations Physical Exam 2 Vital Signs: Vital Signs: Last Vital Signs Temp 96 F L 09/29/23 07:02 Pulse 58 09/29/23 07:02 Resp 16 09/29/23 07:02 BP 154/76 H 09/29/23 07:02 Pulse Ox 100 09/29/23 07:02 O2 Del Method Room Air 09/29/23 07:02 BMI result Body Mass Index 35.3 Const: General: cooperative, comfortable, no acute distress, alert and awake Nutritional Appearance: overweight Orientation/consciousness: patient oriented x3 HEENT: Other: bridge of nose with red scaly skin Resp: Effort & Inspection: normal respiratory effort, able to speak in complete sentences, no respiratory distress and no use of accessory muscles Cardio: Rate: regular rate GI: Other: +BS Inspection: No distended Palpation (GI): Soft to palpation Skin: Other: lower extremities dry scaly skin, venous stasis changes Neuro: General: patient oriented x3, moves all extremities and CN's II-XI intact bilaterally Extrem: General: Yes no pedal edema Objective Data Active Medications Acetaminophen (Acetaminophen 325 Mg Tablet) 650 mg PO Q6H PRN PRN Reason: Pain, Mild (Pain Scale 1-3) Last Admin: 09/28/23 12:09 Dose: 650 mg Documented By: LESTER Allopurinol (Allopurinol 300 Mg Tablet) 300 mg PO DAILY [facility] Last Admin: 09/29/23 09:06 Dose: 300 mg Documented By: COTEMA Benzonatate (Benzonatate 100 Mg Capsule) 100 mg PO TID PRN PRN Reason: Cough Bisacodyl (Bisacodyl 5 Mg Tablet.) 10 mg PO ONCE ONE Stop: 09/29/23 19:01 Docusate Sodium (Docusate Sodium 100 Mg Capsule) 100 mg PO DAILY PRN PRN Reason: Constipation Ceftriaxone Sodium 1 gm/ (Sodium Chloride) 50 mls @ 100 mls/hr IV Q24H [facility] Last Infusion: 09/28/23 17:11 Dose: Infused Documented By: LESTER Metronidazole (Flagyl) 500 mg in 100 mls @ 100 mls/hr IV Q8H [facility] Last Infusion: 09/29/23 10:07 Dose: Infused Documented By: COTSILVIA Loperamide HCl (Loperamide Hcl 2 Mg Capsule) 2 mg PO Q6H PRN PRN Reason: Diarrhea Last Admin: 09/27/23 23:03 Dose: 2 mg Documented By: LYSZ Losartan Potassium (Losartan Potassium 25 Mg Tablet) 25 mg PO DAILY [facility]; Protocol Last Admin: 09/29/23 09:06 Dose: 25 mg Documented By: COTEMA Magnesium Oxide (Magnesium Oxide 400 Mg Tablet) 400 mg PO DAILY [facility] Last Admin: 09/29/23 09:06 Dose: 400 mg Documented By: DARIO Melatonin (Melatonin 3 Mg Tablet) 6 mg PO BEDTIME PRN PRN Reason: Insomnia Metoprolol Succinate (Metoprolol Succinate Er 50 Mg Tab.Er.24h) 50 mg PO DAILY [facility]; Protocol Last Admin: 09/29/23 09:06 Dose: 50 mg Documented By: DARIO Ondansetron HCl (Ondansetron Hcl 4 Mg/2 Ml Vial) 4 mg IVPUSH Q8H PRN PRN Reason: Nausea and Vomiting Polyethylene Glycol/Electrolytes (Peg 3350/Na Sulf,Bicarb,Cl/Kcl 4,000 Ml Soln.Recon) 4,000 ml PO ONCE@1600 ONE Stop: 09/29/23 16:01 Sodium Chloride (0.9 % Sodium Chloride Flush 3 Ml Syringe) 3 ml IVFLUSH QSHIFT [facility] Last Admin: 09/29/23 09:06 Dose: 3 ml Documented By: DARIO Labs 09/29/23 05:03 09/29/23 05:03 Labs: Laboratory Results - last 24 hr 09/28/23 09/29/23 09:56 05:03 MCV 84.1 MCH 27.6 MCHC 32.8 RDW 16.5 H Plt Count 72 L MPV 9.5 Absolute Nucleated RBC 0.000 Nucleated RBC % (auto) 0.0 Anion Gap 13 Estim Creat Clear Calc 105.0 Estimated GFR > 60 Random Glucose 84 Calcium 7.7 L Blood Type O Negative Antibody Screen NEGATIVE Crossmatch See Detail Assessment and Plan (1) Colitis: Status: Acute Plan 63-year-old male with a PMH significant for?HTN, HLD, anemia, chronic venous stasis dermatitis, alcohol use disorder, left kidney cancer, hx of DVT no longer on anticoagulation, hx of leg edema s/p venous ablation in 1998, and gout who presents to the ED with?abdominal pain, nausea, vomiting, and diarrhea x1 day admitted for acute colitis. Acute colitis Persistent diarrhea Ct showing inflammation of rectum and sigmoid, consistent with acute colitis cont. IV ceftriaxone and Flagyl started on 09/25 Blood cultures negative GI panel and c dif negative seen by GI - plan for colonoscopy on Saturday 09/30, NPO at midnight Lactic acidosis Initial lactic acid 2.4 resolved with IV fluid Likely secondary to vomiting, not sepsis Mild hypernatremia resolved with IVF iron deficiency anemia and anemia of chronic disease H&H trending down, no active bleeding noted, heme negative Followed by Dr. Peters, on iron supplementation at baseline per previous hematology notes also recently diagnosed with left kidney cancer H/H trending down, s/p 1U rbc 09/28 with good effect follow CBC hypokalemia due to limited po intake po replacement follow BMP moisture associated damage of bilateral buttocks. POA. not c/w pressure injury unstagable pressure wound to bridge of nose. POA. due to glasses/CPAP machine seen by wound care nurse - see note for full recs Left renal mass has outpatient follow up with Dr. Sow for nephrectomy/biopsy Chronic venous stasis with lower leg edema diuretics on hold for now d/t mild dehydration/GI losses Resume as warranted HTN Continue metoprolol, losartan hold spironolactone and torsemide Gout Continue allopurinol HLD statin on hold Full Code DVT Prophylaxis: Pneumatic boots Pt will require continued inpatient hospitalization for persistent nausea abdominal pain inability to take by mouth on IV antibiotics and IV fluids Quality Stroke Does the patient have a stroke diagnosis?: No VTE Prior VTE?: Yes VTE Risk Level:: Medical - moderate - high VTE Device Contraindication: N/A - Device Ordered VTE Drug Contraindication: Treatment Not Indicated
[2023-09-29] MEDS: cefTRIAXone sodium 1 GM in 0.9 % Sodium Chloride 50 ML IV (14:32)
[2023-09-29 15:16] VITALS: BP 132/63; PULSE 56; RESP 16; TEMP 36.2; O2SAT 98
[2023-09-29] MEDS: PEG 3350/Na Sulf,Bicarb,Cl/KCL 4,000 ML SOLN.RECON 4000 ML PO (15:23)
[2023-09-29] MEDS: bisacodyL 5 MG TABLET.DR 10 MG PO (18:01)
[2023-09-29 19:14] VITALS: BP 164/91; PULSE 60; RESP 16; TEMP 36.7; O2SAT 94
[2023-09-30] VITALS (7 sets, daily range): BP systolic 96–150; BP diastolic 57–82; PULSE 66–92; RESP 16–18; TEMP 36.2–37.2; O2SAT 93–100
[2023-09-30 05:56] LABS: MANUAL DIFF FLAG NO
[2023-09-30 05:59] LABS: Basophils Percent Auto 0.5 % (0-2); Eosinophils Absolute Auto 0.2 X10*3/uL (0.0-0.4); Eosinophils Percent Auto 3.8 % (0-4); Hematocrit 23.6 % (42.0-52.0); Hemoglobin 7.8 g/dl (14.0-18.0); Imm Gran Abs Auto 0.02 X10*3/uL (0.00-0.03); Imm Gran Pct Auto 0.3 % (0.0-0.4); Lymphocytes Absolute Auto 1.5 X10*3/uL (1.2-4.9); Lymphocytes Percent Auto 26.7 % (20-40); Mean Corpuscular HGB Conc 33.1 g/dl (31.0-36.0); Mean Corpuscular Hemoglobin 28.2 pg (27.0-33.0); Mean Corpuscular Volume 85.2 fL (80.0-98.0); Mean Platelet Volume 8.9 fL (9.4-12.4); Monocytes Absolute Auto 0.7 X10*3/uL (0.1-1.2); Monocytes Percent Auto 11.3 % (2-11); Neutrophils Absolute Auto 3.3 x10*3/uL (2.0-8.3); Neutrophils Percent Auto 57.4 % (45-73); Red Blood Count 2.77 X10*6/uL (4.60-5.80); Red Cell Distribution Width 16.5 % (11.0-16.0); White Blood Count 5.7 X10*3/uL (4.8-10.8)
[2023-09-30 06:00] LABS: Platelet Count 74 X10*3/uL (160-400)
[2023-09-30 06:12] LABS: Anion Gap 14 (12-20); Blood Urea Nitrogen 7 mg/dL (9-16); Calcium 7.8 mg/dL (8.4-10.2); Carbon Dioxide 22 mmol/L (22-29); Chloride 104 mmol/L (96-108); Creatinine Clr Calc Pharmacy 110.3; Estimated Glomerular Filt Rate > 60; Glucose Fasting 76 mg/dL (60-99); Potassium 3.2 mmol/L (3.3-5.1); Sodium 137 mmol/L (135-145)
[2023-09-30] MEDS: Metoprolol Succinate ER 50 MG TAB.ER.24H PO (09:18)
[2023-09-30] MEDS: Potassium Chloride ER 20 MEQ TAB.ER.PRT 40 MEQ PO (09:19)
[2023-09-30] MEDS: metroNIDAZOLE/NS 500 MG/100 ML PIGGYBACK 100 MG IV ×3 (09:19→23:59)
[2023-09-30] MEDS: Losartan Potassium 25 MG TABLET PO (09:19)
[2023-09-30] MEDS: Magnesium Oxide 400 MG TABLET PO (09:19)
[2023-09-30] MEDS: 0.9 % Sodium Chloride Flush 3 ML SYRINGE IVFLUSH ×2 (09:19→16:45)
[2023-09-30] MEDS: allopurinoL 300 MG TABLET PO (09:19)
--- NOTE | 2023-09-30 11:34 | MHC.CLN ---
F/U NPO TODAY FOR COLONOSCOPY. DAY 6 OF ADMISSION WITH LIMITED PO INTAKE. SKIN WITH PRESSURE AREA TO NOSE, NOT DEEMED NUTRITION RELATED. REVIEW OF WOUND RN NOTES SHOW BILATERAL BUTTOCKS WITH MASD, NOT STAGE II PRESSURE INJURY. CONTINUES TO BE AT NUTRITIONAL RISK DUE TO POOR PO INTAKE. FOLLOW FOR DIET ADVANCEMENT, NUTRITIONAL NEEDS, AND SKIN INTEGRITY.
--- NOTE | 2023-09-30 12:20 | MHC.CM.PN ---
per abraham clemente pt having a colonoscopy not dc ready at this time
--- NOTE | 2023-09-30 13:40 | HO.ANESPROP2 ---
[facility] Active Problems Active Problems: All Active Problems (Updated 09/28/23 @ 12:37 by KADEN Means) Hypokalemia (Acute) Colitis (Acute) Abdominal pain (Acute) Vomiting (Acute) Renal mass (Acute) CKD (chronic kidney disease) (Acute) Renal cell carcinoma (Acute) Bilateral subdural hematomas (Acute) Laceration of scalp (Acute) Anemia (Acute) Alcohol use disorder (Acute) Nonhealing nonsurgical wound (Acute) Past Medical History Medical History Alcohol use disorder Hyperlipidemia Ascending aortic aneurysm Alcoholic steatohepatitis Seborrheic dermatitis DEBORAH (obstructive sleep apnea) History of rhabdomyolysis Hx of lower gastrointestinal bleeding Hx of sepsis History of DVT of lower extremity Chronic ulcer of leg Chronic venous stasis HTN (hypertension) Anemia Anemia Family History Family History Mother Dementia Maternal Grandmother Dementia Family history of problems with anesthesia: No Surgical History Surgical History Hx of colonoscopy History of Problems with Anesthesia: No Social History Social History Household Members: Family Housing: House Do you presently have visiting nurse or other home services: No Alcohol intake: current Alcohol intake frequency: other Alcohol type: hard liquor Comment: pt refused socks Patient Tobacco Use Status: Never used Tobacco Use of substances other than those prescribed or required for medical reasons: No Currently Displaying Signs/Symptoms of Drug Intoxication Withdrawal: No Have you been hit, kicked, punched, or otherwise hurt by someone within the past year? If so, by whom?: No Do you feel safe in your current relationship?: No Is there a partner from a previous relationship who is making you feel unsafe now?: No Are you made to feel afraid or neglected: No Advance Directives: Yes Advance Directives on File: Yes Advance Directives Date on File: 04/13/22 Do you have thoughts of harming others: None Do you have a plan to hurt others: No Plan Recently lost weight without trying: No Nutrition Risks: No Nutritional Risk Poor oral hygiene: No service: No Current occupational status: disabled Meds Allergies Allergy/AdvReac Type Severity Reaction Status Date / Time azithromycin [AZITHROMYCIN] Allergy Severe FACIAL Verified 08/26/23 07:10 SWELLING hydrochlorothiazide [HCTZ] Allergy Severe Facial Verified 08/26/23 07:10 Swelling Active Medications: Current Medications Acetaminophen (Acetaminophen 325 Mg Tablet) 650 mg PO Q6H PRN PRN Reason: Pain, Mild (Pain Scale 1-3) Last Admin: 09/28/23 12:09 Dose: 650 mg Allopurinol (Allopurinol 300 Mg Tablet) 300 mg PO DAILY [facility] Last Admin: 09/30/23 09:19 Dose: 300 mg Benzonatate (Benzonatate 100 Mg Capsule) 100 mg PO TID PRN PRN Reason: Cough Docusate Sodium (Docusate Sodium 100 Mg Capsule) 100 mg PO DAILY PRN PRN Reason: Constipation Ceftriaxone Sodium 1 gm/ (Sodium Chloride) 50 mls @ 100 mls/hr IV Q24H [facility] [place] Last Infusion: 09/29/23 15:08 Dose: Infused Metronidazole (Flagyl) 500 mg in 100 mls @ 100 mls/hr IV Q8H [facility] [place] Last Infusion: 09/30/23 10:19 Dose: Infused Losartan Potassium (Losartan Potassium 25 Mg Tablet) 25 mg PO DAILY [facility] [place]; Protocol Last Admin: 09/30/23 09:19 Dose: 25 mg Magnesium Oxide (Magnesium Oxide 400 Mg Tablet) 400 mg PO DAILY [facility] [place] Last Admin: 09/30/23 09:19 Dose: 400 mg Melatonin (Melatonin 3 Mg Tablet) 6 mg PO BEDTIME PRN PRN Reason: Insomnia Metoprolol Succinate (Metoprolol Succinate Er 50 Mg Tab.Er.24h) 50 mg PO DAILY [facility] [place]; Protocol Last Admin: 09/30/23 09:18 Dose: 50 mg Ondansetron HCl (Ondansetron Hcl 4 Mg/2 Ml Vial) 4 mg IVPUSH Q8H PRN PRN Reason: Nausea and Vomiting Sodium Chloride (0.9 % Sodium Chloride Flush 3 Ml Syringe) 3 ml IVFLUSH QSHIFT [facility] Last Admin: 09/30/23 09:19 Dose: 3 ml Home Medications Medication Instructions Recorded Confirmed Last Taken Type metoprolol succinate 50 mg 50 mg PO DAILY 10/30/22 09/25/23 Unknown History tablet,extended release 24 hr torsemide 20 mg tablet 2 tab PO DAILY 10/30/22 09/25/23 Unknown History allopurinol 100 mg tablet 100 mg PO DAILY 08/26/23 09/25/23 Unknown History allopurinol 300 mg tablet 300 mg PO DAILY 08/26/23 09/25/23 Unknown History ascorbic acid (vitamin C) 500 mg 1,000 mg PO DAILY 08/26/23 09/25/23 Unknown History tablet cholecalciferol (vitamin D3) 50 50 mcg PO DAILY 08/26/23 09/25/23 Unknown History mcg (2,000 unit) tablet losartan 25 mg tablet 25 mg PO QAM 08/26/23 09/25/23 Unknown History rosuvastatin 5 mg tablet 5 mg PO BEDTIME 08/26/23 09/25/23 Unknown History spironolactone 25 mg tablet 25 mg PO DAILY 08/26/23 09/25/23 Unknown History Exam Height,Weight and Vital Signs: Height 5 ft 7 in Weight 102.1 kg Last Vital Signs Temp 99.0 F 09/30/23 13:18 Pulse 66 09/30/23 13:18 Resp 18 09/30/23 13:18 BP 131/82 09/30/23 13:18 Pulse Ox 100 09/30/23 13:18 O2 Del Method Room Air 09/30/23 13:18 Pertinent Lab Results Pertinent Lab Results: Laboratory Tests 09/25/23 09/25/23 09/25/23 09:05 13:12 15:54 WBC 8.2 RBC 3.24 L Hgb 8.8 L Hct 27.5 L MCV 84.9 MCH 27.2 MCHC 32.0 RDW 17.0 H Plt Count 120 L D MPV 7.9 L Immature Gran % (Auto) 0.4 Neut % (Auto) 66.9 Lymph % (Auto) 25.4 Nelson % (Auto) 4.8 Eos % (Auto) 2.1 Baso % (Auto) 0.4 Lymph # (Auto) 2.1 Nelson # (Auto) 0.4 Eos # (Auto) 0.2 Baso # (Auto) 0.0 Abs Immat Gran (auto) 0.03 Absolute Neuts (auto) 5.5 Absolute Nucleated RBC 0.000 Nucleated RBC % (auto) 0.0 PT 12.5 INR 1.0 Sodium 146 H Potassium 4.2 Chloride 112 H Carbon Dioxide 23 Anion Gap 15 BUN 16 Creatinine 1.03 Estim Creat Clear Calc 86.2 Estimated GFR > 60 Random Glucose 103 Fasting Glucose Lactic Acid 2.4 H* Lactic Acid F/U @ 2Hr 1.9 Calcium 8.5 Total Bilirubin 0.7 AST 11 ALT 5 Alkaline Phosphatase 112 Troponin I High Sens < 2.7 Total Protein 6.8 Albumin 3.4 L Lipase 15 Urine Color Yellow Urine Appearance Clear Urine pH 5.5 Ur Specific [place] 1.015 Urine Protein Trace Urine Glucose (UA) Negative Urine Ketones Negative Urine Blood Negative Urine Nitrite Negative Ur Leukocyte Esterase Negative Stool Occult Blood Stl C. cayetanensis PCR Stool Rotavirus A PCR Stl Adenov F 40/41 PCR Stool Astrovirus (PCR) Stool Campylobacter PCR Stool Cryptosporidium PCR Stl Sh Tox Pr E STEC PCR Stool E coli O157 PCR Stl Enterotoxigenic E PCR Stool EPEC (PCR) Stool EAEC (PCR) Stl E. histolytica PCR Stool Giardia Lamblia PCR Stl P. shigelloides PCR Stool Salmonella PCR Stool Sapovirus (PCR) Stl Shigella/EIEC PCR St Y.enterocolitica PCR Stool Vibrio (PCR) Stl Vibrio cholerae PCR Stl Norovirus GI/GII PCR C. difficile Tox B Gene COVID-19 (TORSTEN) Negative COVID-19 Clin Com See Note Influenza Type A (NADIYA) Negative Influenza Type B (NADIYA) Negative Influenza A & B Note See Note Blood Type Antibody Screen Crossmatch 09/25/23 09/26/23 09/27/23 17:08 09:23 05:27 WBC 6.4 6.5 RBC 3.04 L 2.84 L Hgb 8.3 L 7.7 L Hct 26.7 L 24.5 L MCV 87.8 86.3 MCH 27.3 27.1 MCHC 31.1 31.4 RDW 17.1 H 16.7 H Plt Count 97 L 88 L MPV 8.8 L 9.7 Immature Gran % (Auto) Neut % (Auto) Lymph % (Auto) Nelson % (Auto) Eos % (Auto) Baso % (Auto) Lymph # (Auto) Nelson # (Auto) Eos # (Auto) Baso # (Auto) Abs Immat Gran (auto) Absolute Neuts (auto) Absolute Nucleated RBC 0.000 0.000 Nucleated RBC % (auto) 0.0 0.0 PT INR Sodium 142 139 Potassium 3.4 3.4 Chloride 107 105 Carbon Dioxide 25 24 Anion Gap 13 13 BUN 12 10 Creatinine 0.99 0.87 Estim Creat Clear Calc 88.0 100.2 Estimated GFR > 60 > 60 Random Glucose 117 H 92 Fasting Glucose Lactic Acid Lactic Acid F/U @ 2Hr Calcium 8.6 8.2 L Total Bilirubin AST ALT Alkaline Phosphatase Troponin I High Sens Total Protein Albumin Lipase Urine Color Urine Appearance Urine pH Ur Specific [place] Urine Protein Urine Glucose (UA) Urine Ketones Urine Blood Urine Nitrite Ur Leukocyte Esterase Stool Occult Blood Stl C. cayetanensis PCR Not Detected Stool Rotavirus A PCR Not Detected Stl Adenov F 40/41 PCR Not Detected Stool Astrovirus (PCR) Not Detected Stool Campylobacter PCR Not Detected Stool Cryptosporidium PCR Not Detected Stl Sh Tox Pr E STEC PCR Not Detected Stool E coli O157 PCR Not applicable Stl Enterotoxigenic E PCR Not Detected Stool EPEC (PCR) Not Detected Stool EAEC (PCR) Not Detected Stl E. histolytica PCR Not Detected Stool Giardia Lamblia PCR Not Detected Stl P. shigelloides PCR Not Detected Stool Salmonella PCR Not Detected Stool Sapovirus (PCR) Not Detected Stl Shigella/EIEC PCR Not Detected St Y.enterocolitica PCR Not Detected Stool Vibrio (PCR) Not Detected Stl Vibrio cholerae PCR Not Detected Stl Norovirus GI/GII PCR Not Detected C. difficile Tox B Gene NEGATIVE COVID-19 (TORSTEN) COVID-19 Clin Com Influenza Type A (NADIYA) Influenza Type B (NADIYA) Influenza A & B Note Blood Type Antibody Screen Crossmatch 09/27/23 09/28/23 09/28/23 14:41 05:08 09:56 WBC 6.9 RBC 2.74 L Hgb 7.5 L Hct 23.4 L MCV 85.4 MCH 27.4 MCHC 32.1 RDW 16.8 H Plt Count 71 L MPV 9.7 Immature Gran % (Auto) Neut % (Auto) Lymph % (Auto) Nelson % (Auto) Eos % (Auto) Baso % (Auto) Lymph # (Auto) Nelson # (Auto) Eos # (Auto) Baso # (Auto) Abs Immat Gran (auto) Absolute Neuts (auto) Absolute Nucleated RBC 0.000 Nucleated RBC % (auto) 0.0 PT INR Sodium 135 Potassium 3.1 L Chloride 104 Carbon Dioxide 22 Anion Gap 12 BUN 8 L Creatinine 0.86 Estim Creat Clear Calc 101.4 Estimated GFR > 60 Random Glucose 91 Fasting Glucose Lactic Acid Lactic Acid F/U @ 2Hr Calcium 7.7 L D Total Bilirubin AST ALT Alkaline Phosphatase Troponin I High Sens Total Protein Albumin Lipase Urine Color Urine Appearance Urine pH Ur Specific [place] Urine Protein Urine Glucose (UA) Urine Ketones Urine Blood Urine Nitrite Ur Leukocyte Esterase Stool Occult Blood NEGATIVE Stl C. cayetanensis PCR Stool Rotavirus A PCR Stl Adenov F 40/41 PCR Stool Astrovirus (PCR) Stool Campylobacter PCR Stool Cryptosporidium PCR Stl Sh Tox Pr E STEC PCR Stool E coli O157 PCR Stl Enterotoxigenic E PCR Stool EPEC (PCR) Stool EAEC (PCR) Stl E. histolytica PCR Stool Giardia Lamblia PCR Stl P. shigelloides PCR Stool Salmonella PCR Stool Sapovirus (PCR) Stl Shigella/EIEC PCR St Y.enterocolitica PCR Stool Vibrio (PCR) Stl Vibrio cholerae PCR Stl Norovirus GI/GII PCR C. difficile Tox B Gene COVID-19 (TORSTEN) COVID-19 Clin Com Influenza Type A (NADIYA) Influenza Type B (NADIYA) Influenza A & B Note Blood Type O Negative Antibody Screen NEGATIVE Crossmatch See Detail 09/29/23 09/30/23 05:03 03:49 WBC 5.6 5.7 RBC 2.90 L 2.77 L Hgb 8.0 L 7.8 L Hct 24.4 L 23.6 L MCV 84.1 85.2 MCH 27.6 28.2 MCHC 32.8 33.1 RDW 16.5 H 16.5 H Plt Count 72 L 74 L MPV 9.5 8.9 L Immature Gran % (Auto) 0.3 Neut % (Auto) 57.4 Lymph % (Auto) 26.7 Nelson % (Auto) 11.3 H Eos % (Auto) 3.8 Baso % (Auto) 0.5 Lymph # (Auto) 1.5 Nelson # (Auto) 0.7 Eos # (Auto) 0.2 Baso # (Auto) 0.0 Abs Immat Gran (auto) 0.02 Absolute Neuts (auto) 3.3 Absolute Nucleated RBC 0.000 0.000 Nucleated RBC % (auto) 0.0 0.0 PT INR Sodium 135 137 Potassium 3.4 3.2 L Chloride 104 104 Carbon Dioxide 21 L 22 Anion Gap 13 14 BUN 9 7 L Creatinine 0.83 0.79 Estim Creat Clear Calc 105.0 110.3 Estimated GFR > 60 > 60 Random Glucose 84 Fasting Glucose 76 Lactic Acid Lactic Acid F/U @ 2Hr Calcium 7.7 L 7.8 L Total Bilirubin AST ALT Alkaline Phosphatase Troponin I High Sens Total Protein Albumin Lipase Urine Color Urine Appearance Urine pH Ur Specific [place] Urine Protein Urine Glucose (UA) Urine Ketones Urine Blood Urine Nitrite Ur Leukocyte Esterase Stool Occult Blood Stl C. cayetanensis PCR Stool Rotavirus A PCR Stl Adenov F 40/41 PCR Stool Astrovirus (PCR) Stool Campylobacter PCR Stool Cryptosporidium PCR Stl Sh Tox Pr E STEC PCR Stool E coli O157 PCR Stl Enterotoxigenic E PCR Stool EPEC (PCR) Stool EAEC (PCR) Stl E. histolytica PCR Stool Giardia Lamblia PCR Stl P. shigelloides PCR Stool Salmonella PCR Stool Sapovirus (PCR) Stl Shigella/EIEC PCR St Y.enterocolitica PCR Stool Vibrio (PCR) Stl Vibrio cholerae PCR Stl Norovirus GI/GII PCR C. difficile Tox B Gene COVID-19 (TORSTEN) COVID-19 Clin Com Influenza Type A (NADIYA) Influenza Type B (NADIYA) Influenza A & B Note Blood Type Antibody Screen Crossmatch Airway Mallampati Class: II TM Dist: >3cm Neck ROM: Full Heart: rrr Lungs: cta Assessment and Plan Assessment Anesthesia Assessment: Anesthesia Plan Discussed and Chart Reviewed Final Anesthetic Review Family History of Problems with Anesthesia: No History of Problems with Anesthesia: No NPO: Yes ASA Class: II Final Preanesthetic Review: No Changes in Pt Med Stat, Meds/Allgs Chart Reviewed and Consent Obtained/Reviewed Patient Risk: Intermediate Procedure Risk: Intermediate Anesthetic Plan Anesthetic Plan: MAC: Disposition: Standard PACU
--- NOTE | 2023-09-30 13:47 | HO.PM.IMPN ---
Subjective Subjective Date of Service: 09/30/23 Interval History: seen and examined this morning follow up for colitis diarrhea slowing down somewhat bloating, no abdominal pain. no fever, chills. Review of Systems Review of Systems: Yes all other systems are reviewed and are negative Constitutional Constitutional: Denies chills and Denies fever(s) Cardiovascular Cardiovascular: Denies chest pain, Denies palpitations and Denies dyspnea Respiratory Respiratory: Denies cough and Denies dyspnea Endocrine Endocrine: Denies palpitations Physical Exam Vital Signs: Vital Signs: Last Vital Signs Temp 99.0 F 09/30/23 13:18 Pulse 66 09/30/23 13:18 Resp 18 09/30/23 13:18 BP 131/82 09/30/23 13:18 Pulse Ox 100 09/30/23 13:18 O2 Del Method Room Air 09/30/23 13:18 BMI result Body Mass Index 35.3 Appearing in no acute distress lung sounds are clear to auscultation heart regular rate rhythm, clear S1, S2 positive bowel sounds, abdomen is soft, nontender neuro patient is alert x3, no focal deficits Objective Data Active Medications Acetaminophen (Acetaminophen 325 Mg Tablet) 650 mg PO Q6H PRN PRN Reason: Pain, Mild (Pain Scale 1-3) Last Admin: 09/28/23 12:09 Dose: 650 mg Documented By: LESTER Allopurinol (Allopurinol 300 Mg Tablet) 300 mg PO DAILY [facility] Last Admin: 09/30/23 09:19 Dose: 300 mg Documented By: DAVID Benzonatate (Benzonatate 100 Mg Capsule) 100 mg PO TID PRN PRN Reason: Cough Docusate Sodium (Docusate Sodium 100 Mg Capsule) 100 mg PO DAILY PRN PRN Reason: Constipation Ceftriaxone Sodium 1 gm/ (Sodium Chloride) 50 mls @ 100 mls/hr IV Q24H [facility] Last Infusion: 09/29/23 15:08 Dose: Infused Documented By: COTEMA Metronidazole (Flagyl) 500 mg in 100 mls @ 100 mls/hr IV Q8H [facility] Last Infusion: 09/30/23 10:19 Dose: Infused Documented By: DAVID Losartan Potassium (Losartan Potassium 25 Mg Tablet) 25 mg PO DAILY [facility]; Protocol Last Admin: 09/30/23 09:19 Dose: 25 mg Documented By: DAVID Magnesium Oxide (Magnesium Oxide 400 Mg Tablet) 400 mg PO DAILY [facility] Last Admin: 09/30/23 09:19 Dose: 400 mg Documented By: DAVID Melatonin (Melatonin 3 Mg Tablet) 6 mg PO BEDTIME PRN PRN Reason: Insomnia Metoprolol Succinate (Metoprolol Succinate Er 50 Mg Tab.Er.24h) 50 mg PO DAILY [facility]; Protocol Last Admin: 09/30/23 09:18 Dose: 50 mg Documented By: DAVID Ondansetron HCl (Ondansetron Hcl 4 Mg/2 Ml Vial) 4 mg IVPUSH Q8H PRN PRN Reason: Nausea and Vomiting Sodium Chloride (0.9 % Sodium Chloride Flush 3 Ml Syringe) 3 ml IVFLUSH QSHIFT [facility] Last Admin: 09/30/23 09:19 Dose: 3 ml Documented By: DAVID Labs 09/30/23 03:49 09/30/23 03:49 Labs: Laboratory Results - last 24 hr 09/30/23 03:49 MCV 85.2 MCH 28.2 MCHC 33.1 RDW 16.5 H Plt Count 74 L MPV 8.9 L Immature Gran % (Auto) 0.3 Neut % (Auto) 57.4 Lymph % (Auto) 26.7 [place] % (Auto) 11.3 H Eos % (Auto) 3.8 Baso % (Auto) 0.5 Lymph # (Auto) 1.5 [place] # (Auto) 0.7 Eos # (Auto) 0.2 Baso # (Auto) 0.0 Abs Immat Gran (auto) 0.02 Absolute Neuts (auto) 3.3 Absolute Nucleated RBC 0.000 Nucleated RBC % (auto) 0.0 Anion Gap 14 Estim Creat Clear Calc 110.3 Estimated GFR > 60 Fasting Glucose 76 Calcium 7.8 L Assessment and Plan (1) Colitis: Status: Acute Plan 63-year-old male with a PMH significant for?HTN, HLD, anemia, chronic venous stasis dermatitis, alcohol use disorder, left kidney cancer, hx of DVT no longer on anticoagulation, hx of leg edema s/p venous ablation in 1998, and gout who presents to the ED with?abdominal pain, nausea, vomiting, and diarrhea x1 day admitted for acute colitis. Acute colitis Persistent diarrhea Ct showing inflammation of rectum and sigmoid, consistent with acute colitis cont. IV ceftriaxone and Flagyl started on 09/25 Blood cultures negative GI panel and c dif negative seen by GI - plan for colonoscopy today Lactic acidosis Initial lactic acid 2.4 resolved with IV fluid Likely secondary to vomiting, not sepsis Mild hypernatremia resolved with IVF iron deficiency anemia and anemia of chronic disease H&H trending down, no active bleeding noted, heme negative Followed by Dr. Peters, on iron supplementation at baseline per previous hematology notes also recently diagnosed with left kidney cancer H/H trending down, s/p 1U rbc 09/28 with good effect follow CBC hypokalemia due to limited po intake po replacement follow BMP moisture associated damage of bilateral buttocks. POA. not c/w pressure injury unstagable pressure wound to bridge of nose. POA. due to glasses/CPAP machine seen by wound care nurse - see note for full recs Left renal mass has outpatient follow up with Dr. Sow for nephrectomy/biopsy Chronic venous stasis with lower leg edema diuretics on hold for now d/t mild dehydration/GI losses Resume as warranted HTN Continue metoprolol, losartan hold spironolactone and torsemide Gout Continue allopurinol HLD statin on hold Full Code Attending Dr. Alberts DVT Prophylaxis: Pneumatic boots Pt will require continued inpatient hospitalization for persistent nausea abdominal pain inability to take by mouth on IV antibiotics and IV fluids Quality Stroke Does the patient have a stroke diagnosis?: No VTE Prior VTE?: Yes VTE Risk Level:: Medical - moderate - high VTE Device Contraindication: N/A - Device Ordered VTE Drug Contraindication: Treatment Not Indicated
--- NOTE | 2023-09-30 14:31 | MHC.SHP ---
Pre-Procedural Eval Section A - 24 Hr Update-Section A only Date of Service: 09/30/23 The patient is an INPATIENT: Yes The patient has been examined within 24 hours of the surgical procedure. The History & Physical has been completed within 30 days and I have reviewed it.: Yes Section B - Complete if H&P > 30 days Chief Complaint: Acute colitis Allergies: Allergies Allergy/AdvReac Type Severity Reaction Status Date / Time azithromycin [AZITHROMYCIN] Allergy Severe FACIAL Verified 08/26/23 07:10 SWELLING hydrochlorothiazide [HCTZ] Allergy Severe Facial Verified 08/26/23 07:10 Swelling Plan I have reviewed the history and physical and performed a pertinent physical examination on my patient. No changes have occurred unless specified. Time Spent With Patient Time: Total time managing care of this patient today ____ minutes.
--- NOTE | 2023-09-30 15:43 | PM.OP ---
Brief Operative Note Date of Service: 09/30/23 Pre-op diagnosis: Diarrhea, Anemia, Reported melena, Abnormal CT of colon Post-op diagnosis: other (Diverticulosis, Internal hemorrhoids, Hiatal hernia, R/O Microscopic colitis, R/O Celiac disease) Procedure: EGD with biopsies, Colonoscopy to the cecum and TI with biopsies Surgeon: Eric Lenz MD Anesthesia: MAC Was an Human Resources Services Specialist used for this Procedure?: No Estimated blood loss (mL): 2.0 Pathology: other (A. Descending colon B. Descending duodenum C. Gastric antrum D. EG Junction at 39cm) Condition: stable Disposition: PACU
--- NOTE | 2023-09-30 15:46 | PM.EVENT ---
Event Note Date of Service: 09/30/23 Event Note: GI-Full note dictated EGD 1. Slightly irregular EG Junction c/w GERD-biopsied 2. Mild antral gastritis-Biopsied x 3 3. [id number] No sign of UGI bleeding Colonoscopy to the cecum and TI 1. Normal except for diverticulosis and internal hemorrhoids. No sign of colitis, polyps, nor bleeding. Biopsied descending colon to R/O Microscopic colitis Rec: Advance diet. F/U Hgb. Antibiotics can be stopped from a GI standpoint. Start omeprazole for 4 weeks. Start Iron. Use Imodium prn. He may need a small bowel video capsule study done at some point for further w/u of his anemia. I left a VM for his sister, Niharika Meade. D/W patient as well. Time Spent With Patient Time: Total time managing care of this patient today ____ minutes.
[2023-09-30] MEDS: Omeprazole 20 MG CAPSULE.DR PO (16:43)
[2023-09-30] MEDS: Ferrous Sulfate 324 MG TABLET.DR PO (16:44)
--- NOTE | 2023-09-30 19:04 | OP_ITS ---
DATE OF SERVICE: 09/30/2023 SURGEON: Eric Lenz MD INDICATIONS: The patient presents for evaluation of diarrhea, abnormal CT scan of colon, and anemia. Full consent was obtained from him for this, including risks of bleeding and perforation. PREOPERATIVE DIAGNOSIS: POSTOPERATIVE DIAGNOSIS: PROCEDURE PERFORMED: ESTIMATED BLOOD LOSS: COMPLICATIONS: ANESTHESIA: Monitored anesthesia care. ASSISTANTS: SPECIMENS: PREOPERATIVE DIAGNOSES: Anemia, abnormal CT scan of colon, diarrhea, and melena. POSTOPERATIVE DIAGNOSES: Anemia, abnormal CT scan of colon, diarrhea, and melena, diverticulosis, internal hemorrhoids, rule out microscopic colitis, hiatal hernia, rule out celiac disease, gastroesophageal reflux. PROCEDURES PERFORMED: Colonoscopy to the cecum and terminal ileum with biopsy, and esophagogastroduodenoscopy with biopsies. DESCRIPTION OF PROCEDURE: The patient was placed in the left lateral decubitus position. The digital rectal exam revealed no abnormalities. The Olympus video pediatric colonoscope was entered into the rectum, advanced easily to the cecum. Once in the cecum, I did identify normal-appearing cecal pouch with appendiceal orifice and a normal-appearing ileocecal valve. The terminal ileum was cannulated and appeared normal. There was no evidence of any ileitis. There was no blood nor melena in the terminal ileum. The scope was withdrawn back in the colon. The entire cecum and ileocecal valve appeared normal. The scope was slowly withdrawn assessing all mucosal surfaces carefully. Preparation was excellent. I did not visualize any sign of polyps, colitis, nor angiodysplasia. There was a moderate amount of sigmoid diverticulosis. There was no blood nor melena in the colon. Random biopsies were obtained in the descending colon. The rectal mucosa appeared normal. The scope was retroflexed, visualizing internal hemorrhoids, but no other pathology. The scope was straightened and withdrawn from the patient. He was turned around for the upper endoscopy. The Olympus video gastroscope was passed in the posterior oropharynx and upper esophagus under direct vision. The scope was passed slowly into the distal esophagus. The gastroesophageal junction appeared at 39 cm. There was some slight irregularity, consistent with reflux, but no definitive evidence of Shi mucosa. There was no esophagitis. The scope entered the stomach. There was a small hiatal hernia. The scope was advanced to the pylorus and the duodenum was cannulated at the descending portion. The duodenum including the bulb appeared normal without mass or ulceration. Biopsies were obtained the second and third portions of the duodenum. The scope was withdrawn back to the stomach. The gastric antrum had some mild areas of erythema and edema, but there was no erosions or ulceration. There was good peristalsis. Biopsies were obtained from the antrum. The scope was retroflexed visualizing the proximal stomach carefully, which appeared normal, without any sign of mass or ulceration. There was no evidence of any gastropathy nor varices. The scope was straightened. The scope was withdrawn back to the esophagus. There was no evidence of any esophagitis nor esophageal varices. Biopsies were obtained at the EG junction at 39 cm. Proximal to this, the esophageal mucosa appeared normal. The scope was withdrawn from the patient. He tolerated the procedure well and was returned to recovery area in stable condition. IMPRESSION: 1. Diverticulosis. 2. Internal hemorrhoids. 3. Hiatal hernia. 4. Gastroesophageal reflux. 5. Gastritis. 6. Rule out celiac disease. PLAN: Based on the findings thus far, this would not account for his anemia nor diarrhea. His CT scan had suggested colitis, but I did not see any evidence of that today. The results of the biopsies will be checked to rule out any underlying celiac disease or microscopic colitis. In the meantime, his diet will be advanced. I would keep him on a short course of omeprazole. I would start him on oral iron and follow his hemoglobin. I do not think he needs to be kept on his antibiotics from a GI standpoint. I have also ordered some Imodium as needed. He may need further evaluation with a small bowel video capsule study in regard to the anemia and diarrhea as well, depending upon the findings of today's biopsies and his clinical course. This has been discussed with him. I also left a message for his sister, Niharika Meade in this regard. MD ENMANUEL Parisi/HELDER / [phone]
[2023-10-01 03:28] VITALS: BP 149/73; PULSE 73; RESP 18; TEMP 36.6; O2SAT 99
[2023-10-01] MEDS: Omeprazole 20 MG CAPSULE.DR PO (05:44)
[2023-10-01 06:54] LABS: MANUAL DIFF FLAG NO
[2023-10-01 07:06] LABS: Basophils Percent Auto 0.5 % (0-2); Eosinophils Absolute Auto 0.2 X10*3/uL (0.0-0.4); Eosinophils Percent Auto 4.3 % (0-4); Hematocrit 24.4 % (42.0-52.0); Hemoglobin 7.9 g/dl (14.0-18.0); Imm Gran Abs Auto 0.01 X10*3/uL (0.00-0.03); Imm Gran Pct Auto 0.3 % (0.0-0.4); Lymphocytes Absolute Auto 1.3 X10*3/uL (1.2-4.9); Lymphocytes Percent Auto 33.4 % (20-40); Mean Corpuscular HGB Conc 32.4 g/dl (31.0-36.0); Mean Corpuscular Hemoglobin 27.2 pg (27.0-33.0); Mean Corpuscular Volume 84.1 fL (80.0-98.0); Mean Platelet Volume 9.3 fL (9.4-12.4); Monocytes Absolute Auto 0.5 X10*3/uL (0.1-1.2); Monocytes Percent Auto 11.9 % (2-11); Neutrophils Percent Auto 49.6 % (45-73); Red Cell Distribution Width 16.9 % (11.0-16.0)
[2023-10-01 07:07] LABS: Platelet Count 80 X10*3/uL (160-400)
[2023-10-01 07:18] VITALS: BP 122/71; PULSE 68; RESP 18; TEMP 36.8; O2SAT 95
[2023-10-01 07:22] LABS: Anion Gap 11 (12-20); Blood Urea Nitrogen 7 mg/dL (9-16); Calcium 8.1 mg/dL (8.4-10.2); Carbon Dioxide 24 mmol/L (22-29); Chloride 104 mmol/L (96-108); Creatinine Clr Calc Pharmacy 111.8; Estimated Glomerular Filt Rate > 60; Glucose Fasting 98 mg/dL (60-99); Iron 22 mcg/dL (45-160); Percent Iron Saturation 17 % (15-50); Potassium 3.7 mmol/L (3.3-5.1); Sodium 135 mmol/L (135-145); Total Iron Binding Capacity 132 mcg/dL (228-428); Unsaturated Iron Binding 110 ug/dL
[2023-10-01 07:42] LABS: Ferritin 471 ng/mL (20-250)
[2023-10-01 07:52] LABS: Folate 3.4 ng/mL (> or = 4.0); Vitamin B12 937 pg/mL (200-900)
[2023-10-01 07:59] VITALS: BP 127/76; PULSE 66; RESP 15; TEMP 36.9
[2023-10-01] MEDS: Ferrous Sulfate 324 MG TABLET.DR PO (08:15)
[2023-10-01] MEDS: Losartan Potassium 25 MG TABLET PO (08:15)
[2023-10-01] MEDS: Metoprolol Succinate ER 50 MG TAB.ER.24H PO (08:15)
[2023-10-01] MEDS: 0.9 % Sodium Chloride Flush 3 ML SYRINGE IVFLUSH ×2 (08:15)
[2023-10-01] MEDS: allopurinoL 300 MG TABLET PO (08:15)
[2023-10-01] MEDS: Magnesium Oxide 400 MG TABLET PO (08:15)
[2023-10-01 08:21] VITALS: BP 127/72; PULSE 68; RESP 16; TEMP 36.6
--- NOTE | 2023-10-01 10:47 | P.DS_ITS ---
DS: Providers Provider Date of Service: 10/01/23 Date of admission: 09/25/23 13:57 Primary care physician: Samantha Gonzales MD Consults: 09/25/23 16:01 Consult to Wound Care Routine Reason for consultation: Stage II decubitus ulcer bilateral buttocks 09/27/23 11:43 Consult to Gastroenterology Routine Consulting Provider: Eric Lenz Reason for consultation: colitis, persistent diarrhea Has provider been notified: No DS: Diagnosis Discharge Diagnosis (1) Colitis: Status: Acute DS: Summary Hospital Course Hospital Course: HP as per admitting provider. Pt is a 63-year-old male with a PMH significant for?HTN, HLD, anemia, chronic venous stasis dermatitis, alcohol use disorder, left kidney cancer, hx of DVT no longer on anticoagulation, hx of leg edema s/p venous ablation in 1998, and gout who presents to the ED with?abdominal pain, nausea, vomiting, and diarrhea x1 day. Patient states symptoms began this morning around 02:00 when patient awoke with severe abdominal pain and began experiencing uncontrollable watery diarrhea. Also has had nausea and vomiting with associated throat discomfort, and some dizziness with standing. Patient states that he was recently hospitalized for right leg weakness and discharged to short-term rehab for 2 weeks; discharged home on 09/13/2023. Patient reports having loose stools/diarrhea every day while in rehab. Since being home stools have been better formed, but still reports stomach ?has not been 100%?. Also states he has had blood in his stool for a long time , most noticeable when he wipes. Cannot clarify exactly how long this has been going on but likely for many months; claims it was intensified while in rehab. Denies chest pain/pressure, palpitations. No shortness of breath. Chronic lower leg edema at baseline. In the ED pt was afebrile, tachycardic up to 97, and hypertensive up to 150/87. Labs were significant for H&H 8.8/27.5, sodium 146, cholesterol 112, lactic acid 2.4. No leukocytosis. Function around baseline. Hepatic function baseline. Troponins negative. UA negative for UTI. Tested negative for COVID, influenza type a and B. CXR showed no active disease. CT of abdomen and pelvis found new inflammatory process in the sigmoid and rectum and central mesentery, consistent with acute colitis. EKG demonstrated normal sinus rhythm with left anterior fascicular block with nonspecific T-wave abnormality and p rolonged QTc of 492. Pt was treated with IVF, ondansetron, ceftriaxone, and Flagyl. Pt will be admitted to the hospital for treatment further evaluation of acute colitis. 63-year-old man treated for diarrhea that has been chronic, initially thought to be colitis and started on ceftriaxone and Flagyl with negative blood cultures, negative C diff and negative GI panel. Had EGD and colonoscopy with findings of slightly irregular EG junction with GERD, mild antral gastritis, no sign of upper GI bleeding, biopsies taken. Colonoscopy showed normal except for diverticulosis and internal hemorrhoids but no colitis polyps or bleeding. Patient's diet was advanced without any issues. He was noted to be iron deficient and started on iron supplementation. Plan is to start omeprazole for 4 weeks. May need a small bowel video capsule study at some point and he should follow-up with gastroenterology for that. He did receive a total 2 units of packed red blood cells with stabilization of his H&H. Plan to check H&H in 1 week. Plan is to discharge home with services. Hypokalemia. Likely due to limited p.o. intake, replaced and resolved Left renal mass. Patient has follow-up with outpatient Nephrology Chronic venous stasis to lower extremities on diuretics at home. Hypertension. Continue metoprolol, losartan, spironolactone and torsemide Gout. Continue allopurinol Hyperlipidemia. Continue statin Moisture associated damage bilateral buttocks with no pressure injury Unstageable pressure wound to bridge of nose. May use bandage or barrier all using glasses and CPAP. Time Attestation Discharge coordination time: Greater than 30 minutes Quality: Safe Use of Opioids Does Pt have an Active Cancer Diagnosis on the Problem List?: No Quality: Stroke Does the patient have a stroke diagnosis?: No Physical Exam Vital Signs: Vital Signs: Last Vital Signs Temp 97.8 F 10/01/23 08:21 Pulse 68 10/01/23 08:21 Resp 16 10/01/23 08:21 BP 127/72 10/01/23 08:21 Pulse Ox 95 10/01/23 07:18 O2 Del Method Room Air 10/01/23 07:18 BMI result Body Mass Index 35.3 Appearing in no acute distress mouth throat mucous membranes are intact and moist neck is supple no lymphadenopathy, no JVD noted lung sounds are clear to auscultation heart regular rate rhythm positive bowel sounds, abdomen is soft neuro patient is alert x3, no focal deficits DS: Data Data Completed and Pending Completed studies during hospitalization [Text1]: Procedures Detoxification Services for Substance Abuse Treatment (10/30/22) Pending studies at discharge: Pending at discharge 09/30/23 15:05 Surgical [PTH] Routine Labs on day of discharge: Laboratory Results - last 24 hr 09/28/23 10/01/23 09:56 05:31 WBC 4.0 L RBC 2.90 L Hgb 7.9 L Hct 24.4 L MCV 84.1 MCH 27.2 MCHC 32.4 RDW 16.9 H Plt Count 80 L MPV 9.3 L Immature Gran % (Auto) 0.3 Neut % (Auto) 49.6 Lymph % (Auto) 33.4 [place] % (Auto) 11.9 H Eos % (Auto) 4.3 H Baso % (Auto) 0.5 Lymph # (Auto) 1.3 [place] # (Auto) 0.5 Eos # (Auto) 0.2 Baso # (Auto) 0.0 Abs Immat Gran (auto) 0.01 Absolute Neuts (auto) 2.0 Absolute Nucleated RBC 0.000 Nucleated RBC % (auto) 0.0 Sodium 135 Potassium 3.7 Chloride 104 Carbon Dioxide 24 Anion Gap 11 L BUN 7 L Creatinine 0.78 Estim Creat Clear Calc 111.8 Estimated GFR > 60 Fasting Glucose 98 Calcium 8.1 L Iron 22 L TIBC 132 L % Saturation 17 Unsat Iron Binding 110 Ferritin 471 H Vitamin B12 937 H Folate 3.4 L Blood Type O Negative Antibody Screen NEGATIVE Crossmatch See Detail Discharge Plan Discharge Anticipated Discharge Date/Time: 10/01/23 10:39 Patient Disposition: Home Health Service Discharge Diagnosis: Diarrhea Anemia Referrals: Samantha Gonzales MD [Primary Care Provider] - 1 Week Eric Lenz MD [Physician] - 1 Week Discharge Medications: New loperamide 2 mg Capsule 2 mg PO BID PRN (Reason: Diarrhea) Qty: 60 0RF omeprazole 20 mg Capsule,Delayed Release(Dr/Ec) 20 mg PO DAILY@0630 28 Days Qty: 28 0RF ferrous sulfate 324 mg (65 mg iron) Tablet,Delayed Release (Dr/Ec) 324 mg PO BIDWM Qty: 30 0RF Continued torsemide 20 mg tablet 2 tab PO DAILY metoprolol succinate 50 mg tablet extended release 24 hr 50 mg PO DAILY magnesium oxide 400 mg (241.3 mg magnesium) tablet 400 mg PO DAILY Qty: 10 0RF spironolactone 25 mg Tablet 25 mg PO DAILY ascorbic acid (vitamin C) 500 mg Tablet 1,000 mg PO DAILY losartan 25 mg tablet 25 mg PO QAM allopurinol 300 mg Tablet 300 mg PO DAILY rosuvastatin 5 mg Tablet 5 mg PO BEDTIME cholecalciferol (vitamin D3) 50 mcg (2,000 unit) Tablet 50 mcg PO DAILY Discontinued allopurinol 100 mg Tablet 100 mg PO DAILY Discharge Orders: Discharge Order (Routine); Ordered 10/01/23 Ordered By: Jimena Stern Diet: Advance to usual diet Activity on Discharge: As tolerated Stand Alone Forms: Patient Portal Discharge page Other Ambulatory Orders: Complete Blood Count no Diff (Routine) Timeframe: 1 Week Facility: [facility] - Location: Laboratory Ordered By: Jimena Stern Care Plan Goals: Use Loperamide as needed for diarrhea Take prilosec for 4 weeks Health Concerns: Diarrhea Anemia Plan of Treatment: Follow-up with gastroenterology for outpatient follow-up Take all medications as prescribed Assessment: See discharge summary
[2023-10-01 11:08] VITALS: BP 125/67; PULSE 67; RESP 15; TEMP 36.8
--- NOTE | 2023-10-01 11:55 | MHC.CM.PN ---
pt taking [facility] and will have hvns
--- NOTE | 2023-10-01 12:41 | W.MHC.F2F ---
Service Date Service Date: 10/01/23 Encounter Date of encounter: 10/01/23 Reasons for Services Signs and symptoms assessed: GI bleed diarrhea anemia Reason for penitentiary: CV/CP assess and/or care and medication management Homebound: Leaving the home is medically contraindicated at this time without the asist of a device and/or another person due th the listed conditions above and below. Reason homebound: unsteady gait / fall risk Certification: Based on the above findings, I certify that this patient is confined to the home and needs intermittent penitentiary care, physical therapy and/or speech therapy, or continues to need occupational therapy. The patient is under my care, and I have initiated the establishment of the plan of care. The patient will be followed by a physician who will periodically review the plan of care. Time Spent With Patient Time: Total time managing care of this patient today ____ minutes.
--- NOTE | 2023-10-01 13:21 | HO.POSTANES ---
Post Anesthesia Evaluation Post Anesthesia Evaluation Date of Service: 10/01/23 Vital Signs: Vital Signs Temp Pulse Resp BP Pulse Ox O2 Del Method 10/01/23 11:08 98.2 F 67 15 125/67 10/01/23 08:21 97.8 F 68 16 127/72 10/01/23 07:59 98.4 F 66 15 127/76 10/01/23 07:18 98.3 F 68 18 122/71 95 Room Air 10/01/23 03:28 97.9 F 73 18 149/73 H 99 Room Air Anesthesia: Monitored Mental Status: Awake Pain Control: Satisfactory Nausea/Vomiting: None Hydration: Adequate Anesthesia-Related Issues: No Anes. Related Issues
== END 2023-10-01 11:50 | disposition home health service (06) | DRG 241 ==
LOC: HO.ED 11:57 → HO.EDOVER 14:23 → HO.S3 22:17
PROVIDERS: Internal Medicine; Physician Assistant Medical; Admitting Provider Student in an Organized Health Care Education/Training Program; Emergency Provider Emergency Medicine; PCP Family Medicine; Visit Provider Nurse Practitioner Acute Care
PROC: 0DB98ZX Excision of Duodenum, Via Natural or Artificial Opening Endoscopic, Diagnostic (ICD-10-PCS; principal; 2023-09-30 14:50)
DX: K29.70 Gastritis, unspecified, without bleeding (principal); E87.20 Acidosis, unspecified; E87.0 Hyperosmolality and hypernatremia; L89.810 Pressure ulcer of head, unstageable; C64.2 Malignant neoplasm of left kidney, except renal pelvis; D63.0 Anemia in neoplastic disease; E86.0 Dehydration; D50.9 Iron deficiency anemia, unspecified; K57.30 Diverticulosis of large intestine without perforation or abscess without bleeding; K64.8 Other hemorrhoids; K21.9 Gastro-esophageal reflux disease without esophagitis; K90.0 Celiac disease; K44.9 Diaphragmatic hernia without obstruction or gangrene; E78.5 Hyperlipidemia, unspecified; Z20.822 Contact with and (suspected) exposure to COVID-19; E87.6 Hypokalemia; L24.A0 Irritant contact dermatitis due to friction or contact with body fluids, unspecified; I87.303 Chronic venous hypertension (idiopathic) without complications of bilateral lower extremity; I10 Essential (primary) hypertension; M10.9 Gout, unspecified; Z86.718 Personal history of other venous thrombosis and embolism; Z79.899 Other long term (current) drug therapy
CPT/HCPCS: 36415; 71045; 74176; 80048; 80053; 81003; 82272; 82607; 82728; 82746; 83540; 83605; 83690; 84484; 85025; 85027; 85610; 86850; 86900; 86901; 86923; 87040; 87493; 87502; 87507; 87635; 88305; 88313; 88342; 93005; 99285; J0696; J0737; J1596; J1836; J2405; J2704; P9016

== ENCOUNTER → 2023-09-25 07:16 | Outpatient (BNV) | payer MEDICAID, SELFPAY | PROVIDERS: Admitting Provider Student in an Organized Health Care Education/Training Program; Emergency Provider Emergency Medicine; PCP Family Medicine; Visit Provider Internal Medicine | DX: I44.4 Left anterior fascicular block (principal); R06.09 Other forms of dyspnea | CPT/HCPCS: 93010 ==

== ENCOUNTER → 2023-09-25 13:57 | Outpatient (BNV) | payer MEDICAID, SELFPAY | PROVIDERS: Admitting Provider Student in an Organized Health Care Education/Training Program; Emergency Provider Emergency Medicine; PCP Family Medicine; Visit Provider Student in an Organized Health Care Education/Training Program | DX: K52.9 Noninfective gastroenteritis and colitis, unspecified (principal); E87.20 Acidosis, unspecified; L89.322 Pressure ulcer of left buttock, stage 2 | CPT/HCPCS: 99223; 99232; 99233; 99239; G0180 ==

== ENCOUNTER 2023-11-06 09:27 | Outpatient (REF) | payer MEDICAID, SELFPAY ==
[2023-11-06 09:51] LABS: MANUAL DIFF FLAG NO
[2023-11-06 10:19] LABS: Basophils Absolute Auto 0.1 X10*3/uL (0.0-0.2); Basophils Percent Auto 1.7 % (0-2); Eosinophils Absolute Auto 0.3 X10*3/uL (0.0-0.4); Eosinophils Percent Auto 5.4 % (0-4); Hematocrit 29.5 % (42.0-52.0); Hemoglobin 9.2 g/dl (14.0-18.0); Imm Gran Abs Auto 0.02 X10*3/uL (0.00-0.03); Imm Gran Pct Auto 0.4 % (0.0-0.4); Lymphocytes Absolute Auto 2.4 X10*3/uL (1.2-4.9); Mean Corpuscular HGB Conc 31.2 g/dl (31.0-36.0); Mean Corpuscular Hemoglobin 26.8 pg (27.0-33.0); Mean Platelet Volume 8.6 fL (9.4-12.4); Monocytes Absolute Auto 0.3 X10*3/uL (0.1-1.2); Monocytes Percent Auto 5.2 % (2-11); Neutrophils Absolute Auto 2.1 x10*3/uL (2.0-8.3); Neutrophils Percent Auto 41.3 % (45-73); Platelet Count 220 X10*3/uL (160-400); Red Blood Count 3.43 X10*6/uL (4.60-5.80); Red Cell Distribution Width 17.2 % (11.0-16.0); White Blood Count 5.2 X10*3/uL (4.8-10.8)
[2023-11-06 10:58] LABS: Anion Gap 13 (12-20); Blood Urea Nitrogen 15 mg/dL (9-16); Calcium 8.6 mg/dL (8.4-10.2); Carbon Dioxide 26 mmol/L (22-29); Chloride 111 mmol/L (96-108); Estimated Glomerular Filt Rate > 60; Glucose Random 100 mg/dL (60-115); Magnesium 1.6 mg/dL (1.6-2.6); Potassium 4.4 mmol/L (3.3-5.1); Sodium 146 mmol/L (135-145)
[2023-11-06 10:59] LABS: Iron 76 mcg/dL (45-160); Percent Iron Saturation 44 % (15-50); Total Iron Binding Capacity 174 mcg/dL (228-428); Unsaturated Iron Binding 98 ug/dL
[2023-11-06 11:15] LABS: Ferritin 363 ng/mL (20-250)
[2023-11-06 11:22] LABS: Folate 3.4 ng/mL (> or = 4.0)
== END 2023-11-06 09:28 | disposition home or self-care (01) ==
LOC: HO.LAB 09:27
PROVIDERS: Absent Provider Family Medicine; PCP Family Medicine; Visit Provider Internal Medicine
DX: D64.9 Anemia, unspecified (principal)
CPT/HCPCS: 36415; 80048; 82728; 82746; 83540; 83735; 85025; 99212

== ENCOUNTER 2023-11-06 11:01 | Outpatient (AMB) | payer MEDICAID, SELFPAY ==
[2023-11-06 11:31] VITALS: BP 138/84; PULSE 66; O2SAT 96; BMI 37.4
--- NOTE | 2023-11-06 11:31 | HO.NEPHOV ---
HPI HPI Comments History of Present Illness Details I had the pleasure of seeing Geoffrey in follow-up of his CKD and hypertension. He has a left renal mass and has seen Dr. Sow. He is going to undergo partial left nephrectomy. He has history of rhabdomyolysis and had POLLY 5 years ago. He was on dialysis at that time and had come off dialysis on 12/20/2017. He does not have any hematuria, night sweats, weight loss, fever. His blood pressure has been at goal. He is tolerating ARB. He avoids nonsteroidal anti-inflammatories. He is anxious about partial nephrectomy. [facility] Medical History (Updated 11/13/23 @ 13:37 by Tony Kennedy MD) HTN (hypertension) Colitis Alcohol use disorder Hyperlipidemia Ascending aortic aneurysm Alcoholic steatohepatitis Seborrheic dermatitis DEBORAH (obstructive sleep apnea) History of rhabdomyolysis Hx of lower gastrointestinal bleeding Hx of sepsis History of DVT of lower extremity Chronic ulcer of leg Chronic venous stasis Anemia Anemia Surgical History Hx of colonoscopy Family History Mother Dementia Maternal Grandmother Dementia Social History Household Members: Family Housing: House Do you presently have visiting nurse or other home services: No Alcohol intake: current Alcohol intake frequency: other Alcohol type: hard liquor Comment: pt refused socks Patient Tobacco Use Status: Never used Tobacco Advance Directives Date on File: 04/13/22 service: No Current occupational status: disabled Vital Signs 11/06/23 11:31 Height 5 ft 7 in Weight 238 lb 8 oz BMI 37.4 BP 138/84 Blood Pressure Location Rt brachial Position Sitting Pulse 66 Pulse Source Pulse Oximeter Pulse Oximetry (%) 96 Oxygen Delivery Method Room Air Physical Exam Vital Signs: Last Vital Signs Pulse 66 11/06/23 11:31 BP 138/84 11/06/23 11:31 Pulse Ox 96 11/06/23 11:31 Oxygen Delivery Method Room Air 11/06/23 11:31 BMI result Body Mass Index 37.4 Const General: comfortable and no acute distress Orientation/consciousness: patient oriented x3 HEENT Head: Yes normocephalic Mouth: Normal oral and palatal mucosa present Eyes EOM: EOMs intact bilaterally Neck Neck: Yes supple Resp Auscultation: clear to auscultation bilaterally Cardio Jugular venous distension: no JVD Rate: regular rate GI Palpation (GI): Soft to palpation Auscultation: normal bowel sounds General: Yes no CVA tenderness Back/Spine/Pelvis Back: no CVA tenderness Skin General skin exam: no rashes or lesions noted Neuro General: patient oriented x3 and moves all extremities Assessment & Plan Assessment & Plan (1) Renal mass: Code(s): N28.89 - Other specified disorders of kidney and ureter (2) HTN (hypertension): Code(s): I10 - Essential (primary) hypertension Qualifiers: Hypertension type: primary hypertension Qualified Code(s): I10 - Essential (primary) hypertension Plan Geoffrey has history of POLLY needing dialysis 5 years ago his renal functions are back to baseline and has been stable. He is on losartan, spironolactone and torsemide. He is going to undergo left partial nephrectomy for renal cell carcinoma. He should avoid nonsteroidal anti-inflammatories. I asked him to hold spironolactone, losartan and torsemide on the day and the day after his surgery. He should maintain good hydration. Once his current issues are resolved he he needs to be referred to weight management program. He likely will benefit from gastric sleeve surgery. I did not make any other medication changes today. He has a follow-up to see me in a few months. I answered all his questions and concerns. Orders: Orders Creatinine 11/06/23 I10 - Essential (primary) hypertension, N28.89 - Other specified disorders of kidney and ureter Blood Urea Nitrogen 11/06/23 I10 - Essential (primary) hypertension, N28.89 - Other specified disorders of kidney and ureter Electrolytes 11/06/23 I10 - Essential (primary) hypertension, N28.89 - Other specified disorders of kidney and ureter Calcium 11/06/23 I10 - Essential (primary) hypertension, N28.89 - Other specified disorders of kidney and ureter Coding Level of Care Code Est Pt Level 4 (80069) Diagnoses Renal mass N28.89 Primary hypertension I10 Hypertension type: primary hypertension Results Reviewed Nephrology Results: Hgb 9.2 g/dl (14.0-18.0) L 11/06/23 WBC 5.2 X10*3/uL (4.8-10.8) 11/06/23 Plt Count 220 X10*3/uL (160-400) 11/06/23 Sodium 146 mmol/L (135-145) H 11/06/23 Potassium 4.4 mmol/L (3.3-5.1) 11/06/23 Chloride 111 mmol/L (96-108) H 11/06/23 Carbon Dioxide 26 mmol/L (22-29) 11/06/23 BUN 15 mg/dL (9-16) 11/06/23 Creatinine 0.91 mg/dL (0.5-1.4) 11/06/23 Calcium 8.6 mg/dL (8.4-10.2) 11/06/23 Urine Protein Trace mg/dL (Neg-Trace) 09/25/23
== END 2023-11-06 11:54 | disposition home or self-care (01) ==
PROVIDERS: PCP Family Medicine; Referring Provider Family Medicine; Visit Provider Internal Medicine Nephrology
DX: N28.89 Other specified disorders of kidney and ureter (principal); I10 Essential (primary) hypertension
CPT/HCPCS: 99214

== ENCOUNTER 2024-02-03 10:07 | Outpatient (REF) | payer MEDICAID, SELFPAY ==
[2024-02-03 11:02] LABS: Anion Gap 16 (12-20); Blood Urea Nitrogen 41 mg/dL (9-16); Carbon Dioxide 22 mmol/L (22-29); Chloride 104 mmol/L (96-108); Estimated Glomerular Filt Rate 37; Sodium 138 mmol/L (135-145)
== END 2024-02-03 10:08 | disposition home or self-care (01) ==
LOC: HO.10HDL 10:07
PROVIDERS: Visit Provider Internal Medicine Nephrology
DX: I10 Essential (primary) hypertension (principal); N28.89 Other specified disorders of kidney and ureter
CPT/HCPCS: 36415; 80051; 82310; 82565; 84520

== ENCOUNTER 2024-02-05 11:46 | Outpatient (AMB) | payer MEDICAID, SELFPAY ==
--- NOTE | 2024-02-05 12:02 | HO.NEPHOV_ITS ---
Vital Signs 02/05/24 12:11 Height 5 ft 9 in Weight 223 lb BMI 32.9 BP 140/70 H Blood Pressure Location Rt brachial Position Sitting Pulse 122 H Pulse Source Pulse Oximeter Pulse Oximetry (%) 98 Oxygen Delivery Method Room Air Intake Visit Reasons: 3 mon Follow up/ Conf Product Manager Medical Device Required: No Accompanied by: Self / Same As Patient Allergies azithromycin [AZITHROMYCIN] Allergy (Severe, Verified 02/05/24 12:13) FACIAL SWELLING hydrochlorothiazide [HCTZ] Allergy (Severe, Verified 02/05/24 12:13) Facial Swelling HPI Comments Details: I had the pleasure of seeing Geoffrey in follow-up of his CKD and hypertension. He has a left renal mass and has seen Dr. Sow and underwent partial left nephrectomy. He has history of rhabdomyolysis and had POLLY 5 years ago. He was on dialysis at that time and had come off dialysis on 12/20/2017. He does not have any hematuria, night sweats, weight loss, fever. His blood pressure has been at goal. He is off ARB and diuretics. He avoids nonsteroidal anti- inflammatories. [facility] Medical History (Updated 02/05/24 @ 12:03 by Tony Kennedy MD) HTN (hypertension) Colitis Alcohol use disorder Hyperlipidemia Ascending aortic aneurysm Alcoholic steatohepatitis Seborrheic dermatitis DEBORAH (obstructive sleep apnea) History of rhabdomyolysis Hx of lower gastrointestinal bleeding Hx of sepsis History of DVT of lower extremity Chronic ulcer of leg Chronic venous stasis Anemia Anemia Surgical History Hx of colonoscopy Family History Mother Dementia Maternal Grandmother Dementia Social History Household Members: Family Housing: House Do you presently have visiting nurse or other home services: No Alcohol intake: current Alcohol intake frequency: other Alcohol type: hard liquor Comment: pt refused socks Patient Tobacco Use Status: Never used Tobacco Advance Directives Date on File: 04/13/22 service: No Current occupational status: disabled Physical Exam Vital Signs: Last Vital Signs Pulse 122 H 02/05/24 12:11 BP 140/70 H 02/05/24 12:11 Pulse Ox 98 02/05/24 12:11 Oxygen Delivery Method Room Air 02/05/24 12:11 BMI result Body Mass Index 32.9 Const General: comfortable and no acute distress Orientation/consciousness: patient oriented x3 HEENT Head: Yes normocephalic Mouth: Normal oral and palatal mucosa present Eyes EOM: EOMs intact bilaterally Neck Neck: Yes supple Resp Auscultation: clear to auscultation bilaterally Cardio Jugular venous distension: no JVD Rate: regular rate GI Palpation (GI): Soft to palpation Auscultation: normal bowel sounds General: Yes no CVA tenderness Back/Spine/Pelvis Back: no CVA tenderness Skin General skin exam: no rashes or lesions noted Neuro General: patient oriented x3 and moves all extremities Results Reviewed Nephrology Results: Hgb 9.2 g/dl (14.0-18.0) L 11/06/23 WBC 5.2 X10*3/uL (4.8-10.8) 11/06/23 Plt Count 220 X10*3/uL (160-400) 11/06/23 Sodium 138 mmol/L (135-145) 02/03/24 Potassium 4.0 mmol/L (3.3-5.1) 02/03/24 Chloride 104 mmol/L (96-108) 02/03/24 Carbon Dioxide 22 mmol/L (22-29) 02/03/24 BUN 41 mg/dL (9-16) H 02/03/24 Creatinine 1.86 mg/dL (0.5-1.4) H 02/03/24 Calcium 9.0 mg/dL (8.4-10.2) 02/03/24 Urine Protein Trace mg/dL (Neg-Trace) 09/25/23 Assessment & Plan Assessment & Plan (1) POLLY (acute kidney injury): Code(s): N17.9 - Acute kidney failure, unspecified Category: Medical (2) HTN (hypertension): Code(s): I10 - Essential (primary) hypertension Category: Medical Qualifiers: Hypertension type: primary hypertension Qualified Code(s): I10 - Essential (primary) hypertension (3) CKD stage 3a, GFR 45-59 ml/min: Code(s): N18.31 - Chronic kidney disease, stage 3a Category: Medical Plan Geoffrey has history of POLLY needing dialysis 5 years ago . His renal functions are worse since left partial left nephrectomy . He is off losartan, spironolactone and torsemide. He should avoid nonsteroidal anti-inflammatories. He should maintain good hydration. Once his current issues are resolved he he needs to be referred to weight management program. He likely will benefit from gastric sleeve surgery. I did not make any other medication changes today. He has a follow-up to see me in a month. I answered all his questions and concerns. Coding Level of Care Code Est Pt Level 4 (34137) Diagnoses POLLY (acute kidney injury) N17.9 Primary hypertension I10 Hypertension type: primary hypertension CKD stage 3a, GFR 45-59 ml/min N18.31
[2024-02-05 12:11] VITALS: BP 140/70; PULSE 122; O2SAT 98; BMI 32.9
== END 2024-02-05 12:37 | disposition home or self-care (01) ==
PROVIDERS: PCP Family Medicine; Referring Provider Family Medicine; Visit Provider Internal Medicine Nephrology
DX: N17.9 Acute kidney failure, unspecified (principal); I10 Essential (primary) hypertension; N18.31 Chronic kidney disease, stage 3a
CPT/HCPCS: 99214

== ENCOUNTER → 2024-02-05 11:46 | Outpatient (BNVA) | payer MEDICAID, SELFPAY | PROVIDERS: PCP Family Medicine; Visit Provider Internal Medicine Nephrology | DX: I12.9 Hypertensive chronic kidney disease with stage 1 through stage 4 chronic kidney disease, or unspecified chronic kidney disease (principal); N18.31 Chronic kidney disease, stage 3a; N17.9 Acute kidney failure, unspecified | CPT/HCPCS: 99212 ==

== ENCOUNTER 2024-03-04 12:59 | Outpatient (AMB) | payer MEDICAID, SELFPAY ==
[2024-03-04 13:33] VITALS: BP 158/88; PULSE 79; O2SAT 99; BMI 35.7
--- NOTE | 2024-03-04 13:33 | HO.NEPHOV_ITS ---
Vital Signs 03/04/24 13:33 Height 5 ft 7 in Weight 228 lb BMI 35.7 BP 158/88 H Blood Pressure Location Lt brachial Position Sitting Pulse 79 Pulse Source Pulse Oximeter Pulse Oximetry (%) 99 Oxygen Delivery Method Room Air Intake Visit Reasons: POLLY/ LVM Motor Man Required: No Accompanied by: Self / Same As Patient Allergies azithromycin [AZITHROMYCIN] Allergy (Severe, Verified 03/04/24 13:41) FACIAL SWELLING hydrochlorothiazide [HCTZ] Allergy (Severe, Verified 03/04/24 13:41) Facial Swelling HPI Comments Details: I had the pleasure of seeing Geoffrey in follow-up of his CKD and hypertension. He has a left renal mass and has seen Dr. Sow and underwent partial left nephrectomy. He has history of rhabdomyolysis and had POLLY 5 years ago. He was on dialysis at that time and had come off dialysis on 12/20/2017. He does not have any hematuria, night sweats, weight loss, fever. His blood pressure has been at goal. He is off ARB and diuretics. He avoids nonsteroidal anti- inflammatories. He has not been taking any of his medications for last one week as he was in [place]. He feels he has symptoms of his colitis [facility] Medical History (Updated 02/05/24 @ 12:03 by Tony Kennedy MD) HTN (hypertension) Colitis Alcohol use disorder Hyperlipidemia Ascending aortic aneurysm Alcoholic steatohepatitis Seborrheic dermatitis DEBORAH (obstructive sleep apnea) History of rhabdomyolysis Hx of lower gastrointestinal bleeding Hx of sepsis History of DVT of lower extremity Chronic ulcer of leg Chronic venous stasis Anemia Anemia Surgical History Hx of colonoscopy Family History Mother Dementia Maternal Grandmother Dementia Social History Household Members: Family Housing: House Do you presently have visiting nurse or other home services: No Alcohol intake: current Alcohol intake frequency: other Alcohol type: hard liquor Comment: pt refused socks Patient Tobacco Use Status: Never used Tobacco Advance Directives Date on File: 04/13/22 service: No Current occupational status: disabled Review of Systems Const All systems reviewed & are unremarkable except as noted in HPI and below Physical Exam Vital Signs: Last Vital Signs Pulse 79 03/04/24 13:33 BP 158/88 H 03/04/24 13:33 Pulse Ox 99 03/04/24 13:33 Oxygen Delivery Method Room Air 03/04/24 13:33 BMI result Body Mass Index 35.7 Const General: comfortable and no acute distress Orientation/consciousness: patient oriented x3 HEENT Head: Yes normocephalic Mouth: Normal oral and palatal mucosa present Eyes EOM: EOMs intact bilaterally Neck Neck: Yes supple Resp Auscultation: clear to auscultation bilaterally Cardio Jugular venous distension: no JVD Rate: regular rate GI Palpation (GI): Soft to palpation Auscultation: normal bowel sounds General: Yes no CVA tenderness Back/Spine/Pelvis Back: no CVA tenderness Skin General skin exam: no rashes or lesions noted Neuro General: patient oriented x3 and moves all extremities Results Reviewed Nephrology Results: Hgb 9.2 g/dl (14.0-18.0) L 11/06/23 WBC 5.2 X10*3/uL (4.8-10.8) 11/06/23 Plt Count 220 X10*3/uL (160-400) 11/06/23 Sodium 138 mmol/L (135-145) 02/03/24 Potassium 4.0 mmol/L (3.3-5.1) 02/03/24 Chloride 104 mmol/L (96-108) 02/03/24 Carbon Dioxide 22 mmol/L (22-29) 02/03/24 BUN 41 mg/dL (9-16) H 02/03/24 Creatinine 1.86 mg/dL (0.5-1.4) H 02/03/24 Calcium 9.0 mg/dL (8.4-10.2) 02/03/24 Urine Protein Trace mg/dL (Neg-Trace) 09/25/23 Assessment & Plan Assessment & Plan (1) CKD stage 3a, GFR 45-59 ml/min: Code(s): N18.31 - Chronic kidney disease, stage 3a Category: Medical (2) POLLY (acute kidney injury): Code(s): N17.9 - Acute kidney failure, unspecified Category: Medical (3) HTN (hypertension): Code(s): I10 - Essential (primary) hypertension Category: Medical Qualifiers: Hypertension type: primary hypertension Qualified Code(s): I10 - Essential (primary) hypertension (4) Renal mass: Code(s): N28.89 - Other specified disorders of kidney and ureter Category: Medical Plan Geoffrey has history of POLLY needing dialysis 5 years ago . His renal functions had been worse since left partial left nephrectomy . He is off losartan, spironolactone and torsemide. He should avoid nonsteroidal anti-inflammatories. He should maintain good hydration. Once his current issues are resolved he he needs to be referred to weight management program. He likely will benefit from gastric sleeve surgery. I did not make any other medication changes today. Blood work ordered for today. I answered all his questions and concerns. Orders: Orders Creatinine Today I10 - Essential (primary) hypertension, N17.9 - Acute kidney failure, unspecified, N18.31 - Chronic kidney disease, stage 3a, N28.89 - Other specified disorders of kidney and ureter Electrolytes Today I10 - Essential (primary) hypertension, N17.9 - Acute kidney failure, unspecified, N18.31 - Chronic kidney disease, stage 3a, N28.89 - Other specified disorders of kidney and ureter Complete Blood Count Auto Diff Today I10 - Essential (primary) hypertension, N17.9 - Acute kidney failure, unspecified, N18.31 - Chronic kidney disease, stage 3a, N28.89 - Other specified disorders of kidney and ureter Blood Urea Nitrogen Today I10 - Essential (primary) hypertension, N17.9 - Acute kidney failure, unspecified, N18.31 - Chronic kidney disease, stage 3a, N28.89 - Other specified disorders of kidney and ureter Creatinine 2 Months I10 - Essential (primary) hypertension, N17.9 - Acute kidney failure, unspecified, N18.31 - Chronic kidney disease, stage 3a, N28.89 - Other specified disorders of kidney and ureter Blood Urea Nitrogen 2 Months I10 - Essential (primary) hypertension, N17.9 - Acute kidney failure, unspecified, N18.31 - Chronic kidney disease, stage 3a, N28.89 - Other specified disorders of kidney and ureter Electrolytes 2 Months I10 - Essential (primary) hypertension, N17.9 - Acute kidney failure, unspecified, N18.31 - Chronic kidney disease, stage 3a, N28.89 - Other specified disorders of kidney and ureter Coding Level of Care Code Est Pt Level 4 (00991) Diagnoses CKD stage 3a, GFR 45-59 ml/min N18.31 POLLY (acute kidney injury) N17.9 Primary hypertension I10 Hypertension type: primary hypertension Renal mass N28.89
== END 2024-03-04 13:58 | disposition home or self-care (01) ==
PROVIDERS: PCP Family Medicine; Visit Provider Internal Medicine Nephrology
DX: N18.31 Chronic kidney disease, stage 3a (principal); N17.9 Acute kidney failure, unspecified; I10 Essential (primary) hypertension; N28.89 Other specified disorders of kidney and ureter
CPT/HCPCS: 99214

== ENCOUNTER 2024-03-04 12:59 | Outpatient (REF) | payer MEDICAID, SELFPAY ==
[2024-03-04 14:27] LABS: MANUAL DIFF FLAG NO
[2024-03-04 15:20] LABS: Basophils Absolute Auto 0.1 X10*3/uL (0.0-0.2); Basophils Percent Auto 1.3 % (0-2); Eosinophils Absolute Auto 0.2 X10*3/uL (0.0-0.4); Eosinophils Percent Auto 2.8 % (0-4); Hematocrit 30.8 % (42.0-52.0); Hemoglobin 9.7 g/dl (14.0-18.0); Imm Gran Abs Auto 0.02 X10*3/uL (0.00-0.03); Imm Gran Pct Auto 0.3 % (0.0-0.4); Lymphocytes Absolute Auto 1.8 X10*3/uL (1.2-4.9); Lymphocytes Percent Auto 26.3 % (20-40); Mean Corpuscular HGB Conc 31.5 g/dl (31.0-36.0); Mean Corpuscular Hemoglobin 27.1 pg (27.0-33.0); Mean Platelet Volume 9.3 fL (9.4-12.4); Monocytes Absolute Auto 0.6 X10*3/uL (0.1-1.2); Monocytes Percent Auto 9.3 % (2-11); Platelet Count 122 X10*3/uL (160-400); Red Blood Count 3.58 X10*6/uL (4.60-5.80); Red Cell Distribution Width 19.1 % (11.0-16.0); White Blood Count 6.7 X10*3/uL (4.8-10.8)
[2024-03-04 15:50] LABS: Anion Gap 17 (12-20); Blood Urea Nitrogen 16 mg/dL (9-16); Carbon Dioxide 21 mmol/L (22-29); Chloride 105 mmol/L (96-108); Estimated Glomerular Filt Rate > 60; Sodium 139 mmol/L (135-145)
== END 2024-03-04 13:00 | disposition home or self-care (01) ==
LOC: HO.LAB 12:59
PROVIDERS: PCP Family Medicine; Visit Provider Internal Medicine Nephrology
DX: I12.9 Hypertensive chronic kidney disease with stage 1 through stage 4 chronic kidney disease, or unspecified chronic kidney disease (principal); N18.31 Chronic kidney disease, stage 3a; N17.9 Acute kidney failure, unspecified; N28.89 Other specified disorders of kidney and ureter
CPT/HCPCS: 36415; 80051; 82565; 84520; 85025; 99212

== ENCOUNTER 2024-04-23 09:24 | Outpatient (REF) | payer MEDICAID, SELFPAY ==
[2024-04-23 11:24] LABS: Anion Gap 20 (12-20); Blood Urea Nitrogen 21 mg/dL (9-16); Carbon Dioxide 23 mmol/L (22-29); Chloride 99 mmol/L (96-108); Estimated Glomerular Filt Rate 57; Potassium 4.2 mmol/L (3.3-5.1); Sodium 138 mmol/L (135-145)
== END 2024-04-23 09:25 | disposition home or self-care (01) ==
LOC: HO.10HDL 09:24
PROVIDERS: Visit Provider Internal Medicine Nephrology
DX: I12.9 Hypertensive chronic kidney disease with stage 1 through stage 4 chronic kidney disease, or unspecified chronic kidney disease (principal); N18.31 Chronic kidney disease, stage 3a; N17.9 Acute kidney failure, unspecified; N28.89 Other specified disorders of kidney and ureter
CPT/HCPCS: 36415; 80051; 82565; 84520

== ENCOUNTER 2024-04-29 11:06 | Outpatient (AMB) | payer MEDICAID, SELFPAY ==
--- NOTE | 2024-04-29 11:08 | HO.NEPHOV_ITS ---
Vital Signs 04/29/24 11:09 Height 5 ft 7 in Weight 216 lb 2 oz BMI 33.8 BP 118/70 Blood Pressure Location Lt brachial Position Sitting Pulse 87 Pulse Source Pulse Oximeter Pulse Oximetry (%) 96 Oxygen Delivery Method Room Air Intake Visit Reasons: 2 mon follow up Chainstitch Binder Required: No Accompanied by: Self / Same As Patient Allergies azithromycin [AZITHROMYCIN] Allergy (Severe, Verified 04/29/24 11:11) FACIAL SWELLING hydrochlorothiazide [HCTZ] Allergy (Severe, Verified 04/29/24 11:11) Facial Swelling HPI Comments Details: I had the pleasure of seeing Geoffrey in follow-up of his CKD and hypertension. He has a left renal mass (Dr. Sow)underwent partial left nephrectomy. He has history of rhabdomyolysis and had POLLY 5 years ago. He was on dialysis at that time and had come off dialysis on 12/20/2017. He does not have any hematuria, night sweats, weight loss, fever. His blood pressure has been at goal. He is off ARB and diuretics. He avoids nonsteroidal anti-inflammatories. His renal functions are back to baseline. There were no new complaints at the time this office visit [facility] Medical History (Updated 02/05/24 @ 12:03 by Tony Kennedy MD) HTN (hypertension) Colitis Alcohol use disorder Hyperlipidemia Ascending aortic aneurysm Alcoholic steatohepatitis Seborrheic dermatitis DEBORAH (obstructive sleep apnea) History of rhabdomyolysis Hx of lower gastrointestinal bleeding Hx of sepsis History of DVT of lower extremity Chronic ulcer of leg Chronic venous stasis Anemia Anemia Surgical History Hx of colonoscopy Family History Mother Dementia Maternal Grandmother Dementia Social History Household Members: Family Housing: House Do you presently have visiting nurse or other home services: No Alcohol intake: current Alcohol intake frequency: other Alcohol type: hard liquor Comment: pt refused socks Patient Tobacco Use Status: Never used Tobacco Advance Directives Date on File: 04/13/22 service: No Current occupational status: disabled Review of Systems Const All systems reviewed & are unremarkable except as noted in HPI and below Physical Exam Vital Signs: Last Vital Signs Pulse 87 09/11/24 11:09 BP 118/70 04/29/24 11:09 Pulse Ox 96 04/29/24 11:09 Oxygen Delivery Method Room Air 04/29/24 11:09 BMI result Body Mass Index 33.8 Const General: comfortable and no acute distress Orientation/consciousness: patient oriented x3 HEENT Head: Yes normocephalic Mouth: Normal oral and palatal mucosa present Eyes EOM: EOMs intact bilaterally Neck Neck: Yes supple Resp Auscultation: clear to auscultation bilaterally Cardio Jugular venous distension: no JVD Rate: regular rate GI Palpation (GI): Soft to palpation Auscultation: normal bowel sounds General: Yes no CVA tenderness Back/Spine/Pelvis Back: no CVA tenderness Skin General skin exam: no rashes or lesions noted Neuro General: patient oriented x3 and moves all extremities Results Reviewed Nephrology Results: Hgb 9.7 g/dl (14.0-18.0) L 03/04/24 WBC 6.7 X10*3/uL (4.8-10.8) 03/04/24 Plt Count 122 X10*3/uL (160-400) L 03/04/24 Sodium 138 mmol/L (135-145) 04/23/24 Potassium 4.2 mmol/L (3.3-5.1) 04/23/24 Chloride 99 mmol/L (96-108) 04/23/24 Carbon Dioxide 23 mmol/L (22-29) 04/23/24 BUN 21 mg/dL (9-16) H 04/23/24 Creatinine 1.27 mg/dL (0.5-1.4) 04/23/24 Calcium 9.0 mg/dL (8.4-10.2) 02/03/24 Urine Protein Trace mg/dL (Neg-Trace) 09/25/23 Assessment & Plan Assessment & Plan (1) HTN (hypertension): Code(s): I10 - Essential (primary) hypertension Category: Medical Qualifiers: Hypertension type: primary hypertension Qualified Code(s): I10 - Essential (primary) hypertension (2) CKD stage 3a, GFR 45-59 ml/min: Code(s): N18.31 - Chronic kidney disease, stage 3a Category: Medical Plan Geoffrey has history of POLLY needing dialysis 5 years ago . His renal functions became worse since left partial left nephrectomy but has settled to baseline now after holding losartan, spironolactone and torsemide. He should avoid nonsteroidal anti-inflammatories. He should maintain good hydration. Once his current issues are resolved he he needs to be referred to weight management program. He likely will benefit from gastric sleeve surgery. I did not make any other medication changes today. Blood work ordered for follow-up. I answered all his questions and concerns Orders: Orders Creatinine 04/29/24 I10 - Essential (primary) hypertension, N18.31 - Chronic kidney disease, stage 3a Blood Urea Nitrogen 04/29/24 I10 - Essential (primary) hypertension, N18.31 - Chronic kidney disease, stage 3a Electrolytes 04/29/24 I10 - Essential (primary) hypertension, N18.31 - Chronic kidney disease, stage 3a Coding Level of Care Code Est Pt Level 4 (40751) Diagnoses Primary hypertension I10 Hypertension type: primary hypertension CKD stage 3a, GFR 45-59 ml/min N18.31
[2024-04-29 11:09] VITALS: BP 118/70; PULSE 87; O2SAT 96; BMI 33.8
== END 2024-04-29 11:23 | disposition home or self-care (01) ==
PROVIDERS: PCP Family Medicine; Visit Provider Internal Medicine Nephrology
DX: I10 Essential (primary) hypertension (principal); N18.31 Chronic kidney disease, stage 3a
CPT/HCPCS: 99214

== ENCOUNTER → 2024-04-29 11:06 | Outpatient (BNVA) | payer MEDICAID, SELFPAY | PROVIDERS: PCP Family Medicine; Visit Provider Internal Medicine Nephrology | DX: I12.9 Hypertensive chronic kidney disease with stage 1 through stage 4 chronic kidney disease, or unspecified chronic kidney disease (principal); N18.31 Chronic kidney disease, stage 3a | CPT/HCPCS: 99212 ==

== ENCOUNTER 2024-05-13 11:25 | Inpatient (IN) | payer MEDICAID, SELFPAY ==
--- NOTE | ~2024-05-13 | CT_ITS ---
EXAMINATION: CT ABDOMEN AND PELVIS WITHOUT CONTRAST CLINICAL INFORMATION: Abdominal leakage from prior surgical site. COMPARISON: September 25, 2023 TECHNIQUE: Multidetector volumetric imaging was performed from the superior aspect of the liver through the pubic symphysis. Sagittal and coronal reformatted images were obtained on the technologist's workstation. This CT examination was performed using dose optimization techniques as appropriate, variously including the following: *Automated exposure control *Adjustment of mA and/or kV according to patient size (this includes techniques or standardized protocols for targeted exams where dose is matched to indication/reason for exam; i.e. extremities or head) *Use of iterative reconstruction technique DLP: 699 mGy-cm FINDINGS: LUNG BASES: No pleural or pericardial effusion. Left gynecomastia. LIVER, GALLBLADDER, AND BILIARY TREE: The noncontrast liver is normal in size and contour. No biliary ductal dilatation is present. The gallbladder is unremarkable with no evidence of radiopaque gallstones, gallbladder wall thickening, or obvious pericholecystic inflammatory changes. PANCREAS: No ductal dilatation. SPLEEN: Measures 15.3 cm in AP dimension. ADRENAL GLANDS: No adrenal mass. KIDNEYS AND URETERS: The kidneys are symmetric in size. Hyperdense lesion upper to midpole region of the left kidney measuring 2.2 x 2.8 cm. Postsurgical changes lower pole left kidney in the region of previously demonstrated mass. No hydronephrosis. Left perinephric and periureteric stranding. BLADDER: Decompressed. GASTROINTESTINAL TRACT: Diverticular disease of the colon. No small bowel obstruction. ABDOMINAL WALL: Asymmetric subcutaneous edema of the left flank with postsurgical changes of the left abdominal wall. There is amorphous fluid and phlegmonous change measuring 5.8 x 3.4 x 4.5 cm on image 42 of series 3 with intervening fatty lobules. LYMPH NODES: Enlarged bilateral inguinal lymph nodes. Index right inguinal lymph node measures 1.5 x 2.7 cm. Subcentimeter mesenteric and retroperitoneal lymph nodes. VASCULAR: Normal caliber abdominal aorta. PELVIC VISCERA: Unremarkable. OSSEOUS STRUCTURES: No destructive bone lesions. CT/CT abdomen pelvis wo IV con IMPRESSION: Extensive subcutaneous edema of the left flank and left abdominal wall. There is amorphous fluid and phlegmonous change in the left lateral abdominal wall measuring 5.8 x 3.4 x 4.5 cm on image 42 of series 3 with intervening fatty lobules. Postsurgical changes lower pole left kidney with associated hyperdensity. Left perinephric and periureteric stranding. Hyperdense upper to mid pole left renal lesion measures 2.3 x 2.8 cm possibly a hemorrhagic or proteinaceous cyst. Further characterization is limited by the lack of intravenous contrast. Splenomegaly. Electronically signed by: Checo Valverde MD 05/13/2024 01:52 PM EDT RP
[2024-05-13 11:37] VITALS: BP 139/91; PULSE 98; RESP 20; TEMP 37; O2SAT 100; BMI 34.2
--- NOTE | 2024-05-13 11:37 | ED.SKABFB ---
HPI - Skin/Abscess/Foreign Bdy General Chief complaint: Wound/Laceration Stated complaint: fluid coming from stitches Time Seen by Provider: 05/13/24 14:42 Source: patient Mode of arrival: ambulatory Limitations: no limitations History of Present Illness ED Provider: Dr. Jones HPI narrative: 63-year-old male status post left nephrectomy at [facility] back in November who states he had a coughing fit live which opened up a wound he has he has been having pain for the past few days another wound opened up. He did not call a surgeon over at [facility] and came here CT was done while the patient was in triage which found drainage from the site that has since stopped. But likely abscess of the wound. MD complaint: laceration and abscess/boil Related Data Home Medications ?Medication ?Instructions ?Recorded ?Confirmed metoprolol succinate 50 mg 50 mg PO DAILY 10/30/22 09/25/23 tablet,extended release 24 hr allopurinol 300 mg tablet 300 mg PO DAILY 08/26/23 09/25/23 rosuvastatin 5 mg tablet 5 mg PO BEDTIME 08/26/23 09/25/23 cyanocobalamin (vitamin B-12) 1,000 mcg PO DAILY 02/05/24 1,000 mcg capsule cyanocobalamin (vitamin B-12) 1,000 mcg IM Q1M 02/05/24 1,000 mcg/mL injection solution ascorbic acid (vitamin C) 500 mg 1,000 mg PO DAILY 03/04/24 tablet bisacodyl 10 mg rectal suppository [address] DAILY PRN 03/04/24 calcium carbonate 250 mg-vitamin 1 tab PO DAILY 03/04/24 D3 3.125 mcg (125 unit) tablet Previous Rx's ?Medication ?Instructions ?Recorded magnesium oxide 400 mg (241.3 mg 400 mg PO DAILY #10 tabs 04/25/23 magnesium) tablet folic acid 1 mg tablet 1 mg PO DAILY #30 tabs 10/01/23 Allergies Allergy/AdvReac Type Severity Reaction Status Date / Time azithromycin [AZITHROMYCIN] Allergy Severe FACIAL Verified 05/13/24 11:44 SWELLING hydrochlorothiazide [HCTZ] Allergy Severe Facial Verified 05/13/24 11:44 Swelling Review of Systems Review of Systems: Review of systems: General: Patient denies any fever chills recent illness or falls Musculoskeletal: Denies back pain or body aches or other injuries HEENT: denies headache, runny nose, ear pain Respiratory: denies shortness of breath, cough Cardiovascular: no chest pain or palpitations : denies dysuria, frequency Abdomen: no nausea vomiting denies abdominal pain Extremities: no swelling, no pain Skin: bulging and drainage along old incision to left abdominal wound no diaphoresis Yes all other systems are reviewed and are negative PMFSH Past Medical History Medical History (Updated 05/13/24 @ 14:59 by Nithin Jones DO) HTN (hypertension) Colitis Alcohol use disorder Hyperlipidemia Ascending aortic aneurysm Alcoholic steatohepatitis Seborrheic dermatitis DEBORAH (obstructive sleep apnea) History of rhabdomyolysis Hx of lower gastrointestinal bleeding Hx of sepsis History of DVT of lower extremity Chronic ulcer of leg Chronic venous stasis Anemia Anemia Surgical History Hx of colonoscopy Family History Family History Mother Dementia Maternal Grandmother Dementia Social History Social History Household Members: Family Housing: House Do you presently have visiting nurse or other home services: No Alcohol intake: current Alcohol intake frequency: other Alcohol type: hard liquor Comment: pt refused socks Patient Tobacco Use Status: Never used Tobacco Advance Directives: Yes Advance Directives on File: Yes Advance Directives Date on File: 04/13/22 service: No Current occupational status: disabled Physical Exam Vital Signs: Vital Signs: Last Vital Signs Temp 98.6 F 05/13/24 11:37 Pulse 98 05/13/24 11:37 Resp 20 05/13/24 11:37 BP 139/91 H 05/13/24 11:37 Pulse Ox 100 05/13/24 11:37 O2 Del Method Room Air 05/13/24 11:37 BMI result Body Mass Index 34.2 General: Well-appearing well-nourished in no signs of distress HEENT: Normocephalic atraumatic Neck: No signs of JVD, no masses no tenderness or lymphadenopathy Cardiovascular: Regular rate and rhythm Respiratory: Clear to auscultation bilaterally Abdomen: Soft nontender no masses left abdominal wall bulging area tender to palpation no longer draining at this time Extremities: Normal pedal pulses no signs of edema Skin: Dry warm no rashes Back: No tenderness full ROM Course Course Course Narrative: This is a Rapid Medical Exam performed in triage by Kait Barrow PA-C. Full HPI, ROS and PE to be performed by primary ED provider. 63 yo M w/pmhx CKD, left renal mass s/p partial left nephrectomy in November at [facility], HTN, anemia, ETOH use disorder, presenting to the ED c/o leakage from prior surgical site s/p coughing fit last night. Admits to pain starting Saturday. denies fever, chills, dysuria, hematuria. PE: +swelling & induration w/ fluctuance noted to L abdomen with active serous drainage to prior surgical site. No erythema. +LE pitting edema w/venous stasis changes Plan: Labs, Blood Cx, UA, CTAP Reevaluation(s) Reevaluation #1: [address] Jaramillo and Dr. Santillan. Dr. Jaramillo will come and see the patient. 1550 Dr. Jaramillo is in the room with the patient. Time: 16:04 Reevaluation #3: I and D done at bedside with Dr. Jaramillo who wants the patient admitted to medicine service for replenishment of magnesium as well as IV antibiotics Dr. Servin will admit. Medications Administered Generic Name Dose Route Start Last Admin Trade Name Freq PRN Reason Stop Dose Admin Vancomycin HCl 2,000 mg in 500 mls @ 250 mls/hr 05/13/24 14:52 05/13/24 15:20 Vancomycin/Ns IV 05/13/24 16:51 250 mls/hr ONCE ONE Administration Discontinued Medications Generic Name Dose Route Start Last Admin Trade Name Freq PRN Reason Stop Dose Admin Magnesium Sulfate 2 gm in 50 mls @ 25 mls/hr 05/13/24 13:18 05/13/24 15:20 Magnesium Sulfate/H2o IV 05/13/24 15:17 25 mls/hr ONCE ONE Administration Sodium Chloride 1,000 mls @ 999 mls/hr 05/13/24 15:00 05/13/24 15:00 Ns IV 05/13/24 16:00 999 mls/hr .Q1H1M PROMISE Administration Piperacillin Sod/Tazobactam 100 mls @ 200 mls/hr 05/13/24 14:52 05/13/24 15:02 Sod 4.5 gm/ Sodium Chloride IV 05/13/24 15:21 200 mls/hr ONCE ONE Administration Medical Decision Making Medical Decision Making [facility] Narrative: CT and labs were done patient does not have a white count I did speak with Dr. Jaramillo who agrees the patient can be admitted to medicine and he will see the patient. Differential Diagnosis Differential Diagnoses: The differential diagnosis associated with the presentation includes Abscess versus deep infection versus surgical changes Admission/Observation Consideration of admission/observation: Escalation of care including admission/observation considered Consult Healthcare Provider Management of the patient was discussed with: Hospitalist and Speedometer Inspector I spoke with Dr. Jaramillo wants the patient admitted to medicine he will come see the patient. Lab Data [facility] Lab Attestation statement: I reviewed the patient's lab results. 05/13/24 12:40 05/13/24 12:40 Labs: Lab Results 05/13/24 Range/Units 12:40 WBC 7.4 (4.8-10.8) X10*3/uL RBC 3.28 L (4.60-5.80) X10*6/uL Hgb 8.8 L (14.0-18.0) g/dl Hct 27.7 L (42.0-52.0) % MCV 84.5 (80.0-98.0) fL MCH 26.8 L (27.0-33.0) pg MCHC 31.8 (31.0-36.0) g/dl RDW 17.7 H (11.0-16.0) % Plt Count 87 L D (160-400) X10*3/uL MPV 8.7 L (9.4-12.4) fL Immature Gran % (Auto) 0.3 (0.0-0.4) % Neut % (Auto) 65.1 (45-73) % Lymph % (Auto) 23.3 (20-40) % [place] % (Auto) 7.9 (2-11) % Eos % (Auto) 2.6 (0-4) % Baso % (Auto) 0.8 (0-2) % Lymph # (Auto) 1.7 (1.2-4.9) X10*3/uL [place] # (Auto) 0.6 (0.1-1.2) X10*3/uL Eos # (Auto) 0.2 (0.0-0.4) X10*3/uL Baso # (Auto) 0.1 (0.0-0.2) X10*3/uL Abs Immat Gran (auto) 0.02 (0.00-0.03) X10*3/uL Absolute Neuts (auto) 4.8 (2.0-8.3) x10*3/uL Absolute Nucleated RBC 0.000 (0.0-0.012) X10*3/uL Nucleated RBC % (auto) 0.0 (0.0-0.2) /100WBC ESR 71 H (0-15) MM/HR PT 13.2 H (10.9-12.4) SEC INR 1.1 (0.9-1.1) Sodium 136 (135-145) mmol/L Potassium 3.6 (3.3-5.1) mmol/L Chloride 100 (96-108) mmol/L Carbon Dioxide 21 L (22-29) mmol/L Anion Gap 19 (12-20) BUN 15 (9-16) mg/dL Creatinine 0.98 (0.5-1.4) mg/dL Estim Creat Clear Calc 87.6 Estimated GFR > 60 Random Glucose 78 (60-115) mg/dL Lactic Acid 1.0 (0.5-2.0) mmol/L Calcium 8.8 (8.4-10.2) mg/dL Magnesium 1.0 L* (1.6-2.6) mg/dL Total Bilirubin 1.7 H (0.0-1.0) mg/dL Direct Bilirubin 0.8 H (0.0-0.5) mg/dL AST 15 (5-37) U/L ALT < 5 (0-40) U/L Alkaline Phosphatase 105 (39-117) U/L C-Reactive Protein 5.58 H (< or = 0.50) mg/dL B-Natriuretic Peptide 243 H (<100) pg/mL Total Protein 7.3 (6.5-8.0) g/dL Albumin 3.5 (3.5-5.0) g/dL Lipase 13 (8-78) U/L Radiology Impression Discussion of test interpretation with radiology: I discussed test interpretation with the radiologist and I have reviewed the radiologist's reading. External Record Review External record reviewed: Inpatient record, Office record, Outpatient record, Prior outpatient labs, Prior outpatient radiology, Primary care record and Outside ED record Chronic Conditions Patient?s care impacted by: Diabetes and Hypertension Core Measures AMI core measures followed: Yes Critical Care Time Critical Care Time Critical Care Time: Yes Total Critical Care Time: 40 Attestation: Lots his post surgical changes CT interpretation discussion with surgery as well as hospitalist Discharge Plan Discharge Clinical Impression: Abdominal wall abscess, Hypomagnesemia Patient Disposition: Admitted As Inpatient Print Language: Georgian
[2024-05-13 12:56] LABS: MANUAL DIFF FLAG NO
[2024-05-13 13:05] LABS: Basophils Absolute Auto 0.1 X10*3/uL (0.0-0.2); Basophils Percent Auto 0.8 % (0-2); Eosinophils Absolute Auto 0.2 X10*3/uL (0.0-0.4); Eosinophils Percent Auto 2.6 % (0-4); Hematocrit 27.7 % (42.0-52.0); Hemoglobin 8.8 g/dl (14.0-18.0); INTERNATIONAL NORM RATIO 1.1 (0.9-1.1); Imm Gran Abs Auto 0.02 X10*3/uL (0.00-0.03); Imm Gran Pct Auto 0.3 % (0.0-0.4); Lymphocytes Absolute Auto 1.7 X10*3/uL (1.2-4.9); Lymphocytes Percent Auto 23.3 % (20-40); Mean Corpuscular HGB Conc 31.8 g/dl (31.0-36.0); Mean Corpuscular Hemoglobin 26.8 pg (27.0-33.0); Mean Corpuscular Volume 84.5 fL (80.0-98.0); Mean Platelet Volume 8.7 fL (9.4-12.4); Monocytes Absolute Auto 0.6 X10*3/uL (0.1-1.2); Monocytes Percent Auto 7.9 % (2-11); Neutrophils Absolute Auto 4.8 x10*3/uL (2.0-8.3); Neutrophils Percent Auto 65.1 % (45-73); Prothrombin Time 13.2 SEC (10.9-12.4); Red Blood Count 3.28 X10*6/uL (4.60-5.80); Red Cell Distribution Width 17.7 % (11.0-16.0); White Blood Count 7.4 X10*3/uL (4.8-10.8)
[2024-05-13 13:06] LABS: Platelet Count 87 X10*3/uL (160-400)
[2024-05-13 13:19] LABS: Alanine Aminotransferase < 5 U/L (0-40); Albumin Level 3.5 g/dL (3.5-5.0); Alkaline Phosphatase 105 U/L (39-117); Anion Gap 19 (12-20); Aspartate Amino Transferase 15 U/L (5-37); Bilirubin Direct 0.8 mg/dL (0.0-0.5); Bilirubin Total 1.7 mg/dL (0.0-1.0); Blood Urea Nitrogen 15 mg/dL (9-16); C Reactive Protein 5.58 mg/dL (< or = 0.50); Calcium 8.8 mg/dL (8.4-10.2); Carbon Dioxide 21 mmol/L (22-29); Chloride 100 mmol/L (96-108); Creatinine Clr Calc Pharmacy 87.6; Estimated Glomerular Filt Rate > 60; Glucose Random 78 mg/dL (60-115); Lipase 13 U/L (8-78); Potassium 3.6 mmol/L (3.3-5.1); Sodium 136 mmol/L (135-145); Total Protein 7.3 g/dL (6.5-8.0)
[2024-05-13 13:47] LABS: B Type Natriuretic Peptide 243 pg/mL (<100)
[2024-05-13 13:50] LABS: Erythrocyte Sedimentation Rate 71 MM/HR (0-15)
[2024-05-13] MEDS: 0.9 % Sodium Chloride 1,000 ML 999 ML IV (15:00)
[2024-05-13] MEDS: Piperacillin Sodium/Tazobactam 4.5 GM in 0.9 % Sodium Chloride 100 ML IV (15:02)
[2024-05-13] MEDS: vancomycin/NS 2,000 MG/500 ML PLAST..BAG 250 MG IV (15:20)
[2024-05-13] MEDS: Magnesium Sulfate/H2O 2 GM/50 ML PIGGYBACK IV ×2 (15:20→16:10)
--- NOTE | 2024-05-13 16:05 | PM.IMHP ---
History of Present Illness Date of Service: 05/13/24 Attending physician on admission: [facility] Chief Complaint: abd wall pain and drainage 63 year old male htn, ckd, ascending aortic dilitation, iron deficiency anemia, hld, chronic venous stasis dermatitis, hx of etoh use disorder, history of DVT no longer on ac, history of left renal cancer s/p partial nephrectomy on [place] [address] Sow and CKD stage [address] Kennedy presented to the ED earlier today for evaluation of discomfort of the left abdominal wall scar starting on Saturday which broke open early this morning drainage from the area that started this morning after having a severe coughing fit overnight. No fevers, chills. He does report intermittent episodes of diarrhea, most recently this past weekend without recurrence. Reports occasional alcohol use on the weekends only, reports about 2 glasses of wine on the weekends. No cigarette smoking or illicit drug use. No marijuana use. Since arrival, vital signs are stable. There is no leukocytosis. He has a stable normocytic anemia with H/H 8.8/27.7%. Renal function is baseline, electrolyte levels normal except for magnesium of 1.0. Total bilirubin 1.7, direct bilirubin 0.8, AST/ALT within normal limits. CRP 5.58, ESR 71. CT abdomen/pelvis shows extensive subcutaneous edema of the left flank and left abdominal wall with amorphous fluid and phlegmonous change in the left lateral abdominal wall measuring 5.8 x 3.4 x 4.5 cm. There is also left perinephric and periureteric stranding but denies any dysuria, hematuria, increased urinary frequency. Bedside I&D was performed by general surgery in the ED and he was treated empirically with vanco and zosyn and given 4g IV mag. Review of Systems Review of Systems: Yes all other systems are reviewed and are negative [facility] Medical History Abdominal wall abscess at site of surgical wound HTN (hypertension) Colitis Alcohol use disorder Hyperlipidemia Ascending aortic aneurysm Alcoholic steatohepatitis Seborrheic dermatitis DEBORAH (obstructive sleep apnea) History of rhabdomyolysis Hx of lower gastrointestinal bleeding Hx of sepsis History of DVT of lower extremity Chronic ulcer of leg Chronic venous stasis Anemia Anemia Family History Mother Dementia Maternal Grandmother Dementia Surgical History Hx of colonoscopy Social History Household Members: Family Housing: House Do you presently have visiting nurse or other home services: No Alcohol intake: current Alcohol intake frequency: other Alcohol type: hard liquor Comment: pt refused socks Patient Tobacco Use Status: Never used Tobacco Advance Directives: Yes Advance Directives on File: Yes Advance Directives Date on File: 04/13/22 service: No Current occupational status: disabled Meds Allergies Allergy/AdvReac Type Severity Reaction Status Date / Time azithromycin [AZITHROMYCIN] Allergy Severe FACIAL Verified 05/13/24 11:44 SWELLING hydrochlorothiazide [HCTZ] Allergy Severe Facial Verified 05/13/24 11:44 Swelling Active Medications: Current Medications Vancomycin HCl (Vancomycin/Ns) 2,000 mg in 500 mls @ 250 mls/hr IV ONCE ONE Stop: 05/13/24 16:51 Last Admin: 05/13/24 15:20 Dose: 250 mls/hr Magnesium Sulfate (Magnesium Sulfate/H2o) 2 gm in 50 mls @ 25 mls/hr IV ONCE ONE Stop: 05/13/24 16:56 Home Medications ?Medication ?Instructions ?Recorded ?Confirmed ?Last Taken ?Type metoprolol succinate 50 mg 50 mg PO DAILY 10/30/22 09/25/23 Unknown History tablet,extended release 24 hr allopurinol 300 mg tablet 300 mg PO DAILY 08/26/23 09/25/23 Unknown History rosuvastatin 5 mg tablet 5 mg PO BEDTIME 08/26/23 09/25/23 Unknown History cyanocobalamin (vitamin B-12) 1,000 mcg PO DAILY 02/05/24 Unknown History 1,000 mcg capsule cyanocobalamin (vitamin B-12) 1,000 mcg IM Q1M 02/05/24 Unknown History 1,000 mcg/mL injection solution ascorbic acid (vitamin C) 500 mg 1,000 mg PO DAILY 03/04/24 Unknown History tablet bisacodyl 10 mg rectal suppository 10 mg [place] DAILY PRN 03/04/24 Unknown History calcium carbonate 250 mg-vitamin 1 tab PO DAILY 03/04/24 Unknown History D3 3.125 mcg (125 unit) tablet Physical Exam Vital Signs and Narrative: Vital Signs: Last Vital Signs Temp 98.6 F 05/13/24 11:37 Pulse 98 05/13/24 11:37 Resp 20 05/13/24 11:37 BP 139/91 H 05/13/24 11:37 Pulse Ox 100 05/13/24 11:37 O2 Del Method Room Air 05/13/24 11:37 BMI result Body Mass Index 34.2 Constitutional - Awake and Alert, No apparent distress Eyes - PERRLA, EOMI Cardiovascular - S1S2, RRR, No edema Respiratory - Normal lung expansion, Normal respiratory effort, No respiratory distress, CTA bilaterally Gastrointestinal - NT / ND; +BS; No rebound or guarding Extremities - no calf tenderness bilaterally, no swelling Skin - Warm/Dry . Thickened hypertrophic skin on the BLE with hyperpigmentation. 1.5cm incision llq/flank with cant bloody drainage and some surrounding erythema. No purulent drainage Neurological - Alert & oriented x3 Psychological - Appropriate affect Results Labs 05/13/24 12:40 05/13/24 12:40 Labs: Laboratory Results - last 24 hr 05/13/24 12:40 MCV 84.5 MCH 26.8 L MCHC 31.8 RDW 17.7 H Plt Count 87 L D MPV 8.7 L Immature Gran % (Auto) 0.3 Neut % (Auto) 65.1 Lymph % (Auto) 23.3 [place] % (Auto) 7.9 Eos % (Auto) 2.6 Baso % (Auto) 0.8 Lymph # (Auto) 1.7 [place] # (Auto) 0.6 Eos # (Auto) 0.2 Baso # (Auto) 0.1 Abs Immat Gran (auto) 0.02 Absolute Neuts (auto) 4.8 Absolute Nucleated RBC 0.000 Nucleated RBC % (auto) 0.0 ESR 71 H PT 13.2 H INR 1.1 Anion Gap 19 Estim Creat Clear Calc 87.6 Estimated GFR > 60 Random Glucose 78 Lactic Acid 1.0 Calcium 8.8 Magnesium 1.0 L* Total Bilirubin 1.7 H Direct Bilirubin 0.8 H AST 15 ALT < 5 Alkaline Phosphatase 105 C-Reactive Protein 5.58 H B-Natriuretic Peptide 243 H Total Protein 7.3 Albumin 3.5 Lipase 13 Imaging Radiologist's Impressions: Impressions Abdomen/Pelvis CT 05/13/24 11:45 IMPRESSION: Extensive subcutaneous edema of the left flank and left abdominal wall. There is amorphous fluid and phlegmonous change in the left lateral abdominal wall measuring 5.8 x 3.4 x 4.5 cm on image 42 of series 3 with intervening fatty lobules. Postsurgical changes lower pole left kidney with associated hyperdensity. Left perinephric and periureteric stranding. Hyperdense upper to mid pole left renal lesion measures 2.3 x 2.8 cm possibly a hemorrhagic or proteinaceous cyst. Further characterization is limited by the lack of intravenous contrast. Splenomegaly. Electronically signed by: Checo Valverde MD 05/13/2024 01:52 PM EDT RP Assessment and Plan (1) Abdominal wall abscess at site of surgical wound: Status: Acute (2) Hypomagnesemia: Status: Acute Plan 63 year old male htn, ckd, ascending aortic dilitation, iron deficiency anemia, hld, chronic venous stasis dermatitis, hx of etoh use disorder, history of DVT no longer on ac admitted for evaluation of multiple falls with nonhealing scalp laceration and alcohol use disorder/withdrawal. #Acute cellulitis and abscess LLQ -CT abdomen/pelvis shows extensive subcutaneous edema of the left flank and left abdominal wall with amorphous fluid and phlegmonous change in the left lateral abdominal wall measuring 5.8 x 3.4 x 4.5 cm. There is also left perinephric and periureteric stranding -no leukocytosis, no sepsis -bedside I&D performed by general surgery, culture/gram stain pending -IV vanco (initiated 05/13) -General surgery consult. ?connecting to L kidney, urology consult -follow cbc, cultures #Chronic hypomagnesemia -etiology unclear. Denies regular etoh use, no persistent diarrhea, no significant renal disease, no ppi or metformin use, no diuretics -Mag 1.0 in ED, K WNL -given 4g IV mag -resume mag oxide 400mg BID (had run out of prescription #chronic thrombocytopenia -likely related to alcohol use, underlying liver disease -monitor platelet count #Alcohol use disorder -reports only occassional use on weekends # anemia of chronic disease -continue ferrous sulfate #HTN -metoprolol #Hyperbilirubinemia -likely r/t chronic liver disease #Chronic venous stasis -outpt follow up, ammonium lactate Full code DVT prophylaxis- sub cut lovenox, monitor plt closely Patient requires inpatient stay of at least 2 midnights for cellulitis and abscess of abd wall requiring I&D as well as IV abx with severe hypomagnesemia requiring iv repletion and close monitoring Quality Stroke Does the patient have a stroke diagnosis?: No VTE Prior VTE?: No VTE Risk Level:: Medical - moderate - high VTE Device Contraindication: Treatment Not Indicated VTE Drug Contraindication: N/A - Med Ordered
--- NOTE | 2024-05-13 16:07 | P.CONGS_ITS ---
History of Present Illness Consult details Consult date: 05/13/24 Narrative: 63-year-old male here in the ER because of drainage from his nephrectomy site. He had undergone partial nephrectomy of the left kidney in [facility] for what he describes as a malignancy. He says that he has not really seen surgeon afterwards. He has been following with his renal doctor Dr. Hdez here in [place]. He had been in usual state of health but he had been having some pain on the incision sent about 5 days ago. He said that he cough this morning and he noted purulent drainage from part of the incision. He therefore came to the emergency room He denies any fever or chills. He denies any GI complaints. He has good oral intake. Review of Systems 2 Constitutional: Constitutional: Denies chills and Denies fever(s) Cardiovascular: Cardiovascular: Denies chest pain, Denies dyspnea and Denies dyspnea on exertion Respiratory: Respiratory: Denies cough, Denies dyspnea and Denies dyspnea on exertion Gastrointestinal: Gastrointestinal: Denies hematochezia and Denies change in bowel habits Genitourinary: Genitourinary: Denies hematuria and Denies difficulty urinating Musculoskeletal: Musculoskeletal: Denies back pain and Denies limited range of motion Neurologic: Denies focal weakness and Denies convulsions Psychiatric: Psychiatric: Denies depression and Denies mood swings PMFSH Past Medical History Medical History Abdominal wall abscess at site of surgical wound HTN (hypertension) Colitis Alcohol use disorder Hyperlipidemia Ascending aortic aneurysm Alcoholic steatohepatitis Seborrheic dermatitis DEBORAH (obstructive sleep apnea) History of rhabdomyolysis Hx of lower gastrointestinal bleeding Hx of sepsis History of DVT of lower extremity Chronic ulcer of leg Chronic venous stasis Anemia Anemia Family History Family History Mother Dementia Maternal Grandmother Dementia Surgical History Surgical History Hx of colonoscopy Social History Social History Household Members: Family Housing: House Do you presently have visiting nurse or other home services: No Alcohol intake: current Alcohol intake frequency: other Alcohol type: hard liquor Comment: pt refused socks Patient Tobacco Use Status: Never used Tobacco Advance Directives: Yes Advance Directives on File: Yes Advance Directives Date on File: 04/13/22 service: No Current occupational status: disabled Meds Allergies Allergy/AdvReac Type Severity Reaction Status Date / Time azithromycin [AZITHROMYCIN] Allergy Severe FACIAL Verified 05/13/24 11:44 SWELLING hydrochlorothiazide [HCTZ] Allergy Severe Facial Verified 05/13/24 11:44 Swelling Active Medications: Current Medications Vancomycin HCl (Vancomycin/Ns) 2,000 mg in 500 mls @ 250 mls/hr IV ONCE ONE Stop: 05/13/24 16:51 Last Admin: 05/13/24 15:20 Dose: 250 mls/hr Magnesium Sulfate (Magnesium Sulfate/H2o) 2 gm in 50 mls @ 25 mls/hr IV ONCE ONE Stop: 05/13/24 16:56 Home Medications ?Medication ?Instructions ?Recorded ?Confirmed ?Last Taken ?Type metoprolol succinate 50 mg 50 mg PO DAILY 10/30/22 05/13/24 05/10/24 History tablet,extended release 24 hr rosuvastatin 5 mg tablet 5 mg PO BEDTIME 08/26/23 05/13/24 05/10/24 History cyanocobalamin (vitamin B-12) 1,000 mcg IM Q30D 02/05/24 05/13/24 05/06/24 History 1,000 mcg/mL injection solution Physical Exam 2 Vital Signs: Vital Signs: Last Vital Signs Temp 98.6 F 05/13/24 11:37 Pulse 98 05/13/24 11:37 Resp 20 05/13/24 11:37 BP 139/91 H 05/13/24 11:37 Pulse Ox 100 05/13/24 11:37 O2 Del Method Room Air 05/13/24 11:37 BMI result Body Mass Index 34.2 Const: Other: Looks well General: comfortable and no acute distress Resp: Effort & Inspection: normal respiratory effort Cardio: Rate: regular rate GI: Other: Nephrectomy site on the left flank with note of 1 area with superficial fluctuance, cellulitic changes surrounding this Palpation (GI): Soft to palpation, not firm, nontender and no guarding Results Labs 05/14/24 05:19 05/14/24 05:19 Labs: Abnormal lab results 05/13/24 Range/Units 12:40 RBC 3.28 L (4.60-5.80) X10*6/uL Hgb 8.8 L (14.0-18.0) g/dl Hct 27.7 L (42.0-52.0) % MCH 26.8 L (27.0-33.0) pg RDW 17.7 H (11.0-16.0) % Plt Count 87 L D (160-400) X10*3/uL MPV 8.7 L (9.4-12.4) fL ESR 71 H (0-15) MM/HR PT 13.2 H (10.9-12.4) SEC Carbon Dioxide 21 L (22-29) mmol/L Magnesium 1.0 L* (1.6-2.6) mg/dL Total Bilirubin 1.7 H (0.0-1.0) mg/dL Direct Bilirubin 0.8 H (0.0-0.5) mg/dL C-Reactive Protein 5.58 H (< or = 0.50) mg/dL B-Natriuretic Peptide 243 H (<100) pg/mL Short CBC 05/13/24 Range/Units 12:40 WBC 7.4 (4.8-10.8) X10*3/uL Hgb 8.8 L (14.0-18.0) g/dl Hct 27.7 L (42.0-52.0) % Plt Count 87 L D (160-400) X10*3/uL BMP 05/13/24 12:40 Sodium 136 Potassium 3.6 Chloride 100 Carbon Dioxide 21 L BUN 15 Creatinine 0.98 Calcium 8.8 Liver Function 05/13/24 Range/Units 12:40 Total Bilirubin 1.7 H (0.0-1.0) mg/dL Direct Bilirubin 0.8 H (0.0-0.5) mg/dL AST 15 (5-37) U/L ALT < 5 (0-40) U/L Alkaline Phosphatase 105 (39-117) U/L Albumin 3.5 (3.5-5.0) g/dL All other labs normal. Laboratory Results WBC 7.4 X10*3/uL (4.8-10.8) 05/13/24 12:40 RBC 3.28 X10*6/uL (4.60-5.80) L 05/13/24 12:40 Hgb 8.8 g/dl (14.0-18.0) L 05/13/24 12:40 Hct 27.7 % (42.0-52.0) L 05/13/24 12:40 MCV 84.5 fL (80.0-98.0) 05/13/24 12:40 MCH 26.8 pg (27.0-33.0) L 05/13/24 12:40 MCHC 31.8 g/dl (31.0-36.0) 05/13/24 12:40 RDW 17.7 % (11.0-16.0) H 05/13/24 12:40 Plt Count 87 X10*3/uL (160-400) L D 05/13/24 12:40 MPV 8.7 fL (9.4-12.4) L 05/13/24 12:40 Immature Gran % (Auto) 0.3 % (0.0-0.4) 05/13/24 12:40 Neut % (Auto) 65.1 % (45-73) 05/13/24 12:40 Lymph % (Auto) 23.3 % (20-40) 05/13/24 12:40 [place] % (Auto) 7.9 % (2-11) 05/13/24 12:40 Eos % (Auto) 2.6 % (0-4) 05/13/24 12:40 Baso % (Auto) 0.8 % (0-2) 05/13/24 12:40 Lymph # (Auto) 1.7 X10*3/uL (1.2-4.9) 05/13/24 12:40 [place] # (Auto) 0.6 X10*3/uL (0.1-1.2) 05/13/24 12:40 Eos # (Auto) 0.2 X10*3/uL (0.0-0.4) 05/13/24 12:40 Baso # (Auto) 0.1 X10*3/uL (0.0-0.2) 05/13/24 12:40 Abs Immat Gran (auto) 0.02 X10*3/uL (0.00-0.03) 05/13/24 12:40 Absolute Neuts (auto) 4.8 x10*3/uL (2.0-8.3) 05/13/24 12:40 Absolute Nucleated RBC 0.000 X10*3/uL (0.0-0.012) 05/13/24 12:40 Nucleated RBC % (auto) 0.0 /100WBC (0.0-0.2) 05/13/24 12:40 ESR 71 MM/HR (0-15) H 05/13/24 12:40 PT 13.2 SEC (10.9-12.4) H 05/13/24 12:40 INR 1.1 (0.9-1.1) 05/13/24 12:40 Sodium 136 mmol/L (135-145) 05/13/24 12:40 Potassium 3.6 mmol/L (3.3-5.1) 05/13/24 12:40 Chloride 100 mmol/L (96-108) 05/13/24 12:40 Carbon Dioxide 21 mmol/L (22-29) L 05/13/24 12:40 Anion Gap 19 (12-20) 05/13/24 12:40 BUN 15 mg/dL (9-16) 05/13/24 12:40 Creatinine 0.98 mg/dL (0.5-1.4) 05/13/24 12:40 Estim Creat Clear Calc 87.6 05/13/24 12:40 Estimated GFR > 60 05/13/24 12:40 Random Glucose 78 mg/dL (60-115) 05/13/24 12:40 Lactic Acid 1.0 mmol/L (0.5-2.0) 05/13/24 12:40 Calcium 8.8 mg/dL (8.4-10.2) 05/13/24 12:40 Magnesium 1.0 mg/dL (1.6-2.6) L* 05/13/24 12:40 Total Bilirubin 1.7 mg/dL (0.0-1.0) H 05/13/24 12:40 Direct Bilirubin 0.8 mg/dL (0.0-0.5) H 05/13/24 12:40 AST 15 U/L (5-37) 05/13/24 12:40 ALT < 5 U/L (0-40) 05/13/24 12:40 Alkaline Phosphatase 105 U/L (39-117) 05/13/24 12:40 C-Reactive Protein 5.58 mg/dL (< or = 0.50) H 05/13/24 12:40 B-Natriuretic Peptide 243 pg/mL (<100) H 05/13/24 12:40 Total Protein 7.3 g/dL (6.5-8.0) 05/13/24 12:40 Albumin 3.5 g/dL (3.5-5.0) 05/13/24 12:40 Lipase 13 U/L (8-78) 05/13/24 12:40 Impressions Abdomen/Pelvis CT 05/13/24 11:45 IMPRESSION: Extensive subcutaneous edema of the left flank and left abdominal wall. There is amorphous fluid and phlegmonous change in the left lateral abdominal wall measuring 5.8 x 3.4 x 4.5 cm on image 42 of series 3 with intervening fatty lobules. Postsurgical changes lower pole left kidney with associated hyperdensity. Left perinephric and periureteric stranding. Hyperdense upper to mid pole left renal lesion measures 2.3 x 2.8 cm possibly a hemorrhagic or proteinaceous cyst. Further characterization is limited by the lack of intravenous contrast. Splenomegaly. Electronically signed by: Checo Valverde MD 05/13/2024 01:52 PM EDT RP Assessment and Plan (1) Abdominal wall abscess at site of surgical wound: Status: Acute He had some drainage from his nephrectomy site on the left flank area. His CAT scan shows this phlegmonous changes in the abdominal wall with fluid. This is consistent with the abdominal abscess from his surgical site. I explained to him it would be best to proceed with I&D because the fluctuance appears to be very superficial. I explained to the technique of this procedure under local anesthesia. I have reviewed the risks, benefits, and alternatives and had given consent I&D was done bedside. Pus and large amounts of fluid was drained. Cultures of the cavity was taken. I applied dressings on the I&D site. He tolerated procedure well Since he has some cellulitic changes, I would recommend keeping him for some IV antibiotics for maybe a day or 2. He should also be followed by his surgeon discharge. He has a good understanding of the above Mother was with him during the discussion. Procedures Date of Service Date of Service: 05/14/24 Abscess I/D Consent for Procedure: Elective - informed consent obtained Site: other (Left flank area) Side (if applicable): left Anesthetic used: lidocaine 1% Technique: incised with #11 blade Amount of fluid (mL): 25 Packing used?: none Additional comments: Cultures taken
[2024-05-13] MEDS: Lidocaine HCl 1 % 10 ML VIAL 30 ML INFILTRATI (16:10)
[2024-05-13 17:13] VITALS: BP 155/73; PULSE 69; RESP 17; TEMP 37.2; O2SAT 97
[2024-05-13 17:39] LABS: Appearance Urine Clear; Color Urine Yellow; Glucose Urine UA Negative (Negative); Leukocyte Esterase Urine Negative (Negative); Nitrite Urine Negative (Negative); PH 5.5 (5.0-9.0); Urine Blood Negative (Negative); Urine Ketones 15 mg/dL (Negative); Urine Protein Negative (Neg-Trace)
--- NOTE | 2024-05-13 18:01 | PHA.MEDREC ---
Pharmacy Consult ? Medication Reconciliation Pharmacy has completed the medication reconciliation. Spoke to patient and confirmed medication list. Patient said he stopped taking allopurinol since last week per doctor's order (will be reevaluated next month at office visit). He got his monthly vitamin B12 injection last week. Patient verified that he's still taking metoprolol, folic acid, rosuvastatin and magnesium (400 mg once a day). Last dose was Saturday because he has been in so much pain.
[2024-05-13] MEDS: Enoxaparin Sodium 40 MG/0.4 ML SYRINGE SUBCUT (18:04)
[2024-05-13] MEDS: Magnesium Oxide 400 MG TABLET PO (18:04)
[2024-05-13 19:01] VITALS: BP 131/64; PULSE 84; RESP 16; TEMP 37.4; O2SAT 99
--- NOTE | 2024-05-13 20:20 | PC.NURSE ---
unsure of end time of mag per mar. upon assuming care at 1914 2nd bag of magnesium infusing.
--- NOTE | 2024-05-13 22:31 | PC.NURSE ---
pt ambulates with steady gait to bathroom and back to room. bed linen changed and hospital pants provided. pt is axox4. nad. pt verbalizes understanding plan of care and denies questions/concerns at this time. call piña within reach.
[2024-05-13 23:59] VITALS: BP 139/78; PULSE 86; RESP 16; TEMP 37.8; O2SAT 98
[2024-05-14] VITALS (7 sets, daily range): BP systolic 126–163; BP diastolic 57–90; PULSE 60–72; RESP 16–18; TEMP 36.4–37.6; O2SAT 97–100; BMI 34.2
--- NOTE | 2024-05-14 00:08 | MHC.EDTECH ---
0000 rounding done ,Patient awake ,vitals taken ,fresh water given .
[2024-05-14 05:45] LABS: MANUAL DIFF FLAG NO
[2024-05-14 06:03] LABS: Basophils Percent Auto 0.8 % (0-2); Eosinophils Absolute Auto 0.1 X10*3/uL (0.0-0.4); Eosinophils Percent Auto 2.8 % (0-4); Hematocrit 28.2 % (42.0-52.0); Imm Gran Abs Auto 0.02 X10*3/uL (0.00-0.03); Imm Gran Pct Auto 0.4 % (0.0-0.4); Lymphocytes Absolute Auto 0.7 X10*3/uL (1.2-4.9); Lymphocytes Percent Auto 13.8 % (20-40); Mean Corpuscular HGB Conc 31.9 g/dl (31.0-36.0); Mean Corpuscular Volume 84.7 fL (80.0-98.0); Mean Platelet Volume 8.6 fL (9.4-12.4); Monocytes Absolute Auto 0.4 X10*3/uL (0.1-1.2); Monocytes Percent Auto 8.8 % (2-11); Neutrophils Absolute Auto 3.7 x10*3/uL (2.0-8.3); Neutrophils Percent Auto 73.4 % (45-73); Red Blood Count 3.33 X10*6/uL (4.60-5.80); Red Cell Distribution Width 17.7 % (11.0-16.0)
--- NOTE | 2024-05-14 06:03 | PC.NURSE ---
pt moved to ed3 with hospital bed for comfort and working tv. call piña within reach.
[2024-05-14 06:20] LABS: Anion Gap 16 (12-20); Blood Urea Nitrogen 14 mg/dL (9-16); Calcium 8.7 mg/dL (8.4-10.2); Carbon Dioxide 20 mmol/L (22-29); Chloride 103 mmol/L (96-108); Creatinine Clr Calc Pharmacy 84.2; Estimated Glomerular Filt Rate > 60; Glucose Random 89 mg/dL (60-115); Potassium 3.5 mmol/L (3.3-5.1); Sodium 135 mmol/L (135-145)
[2024-05-14 06:23] LABS: Platelet Count 92 X10*3/uL (160-400)
[2024-05-14 06:37] LABS: Magnesium 1.3 mg/dL (1.6-2.6)
[2024-05-14 08:23] LABS: Alanine Aminotransferase 5 U/L (0-40); Albumin Level 3.3 g/dL (3.5-5.0); Alkaline Phosphatase 100 U/L (39-117); Aspartate Amino Transferase 13 U/L (5-37); Bilirubin Direct 0.5 mg/dL (0.0-0.5); Bilirubin Total 1.3 mg/dL (0.0-1.0); Total Protein 6.8 g/dL (6.5-8.0)
[2024-05-14] MEDS: Magnesium Sulfate/H2O 2 GM/50 ML PIGGYBACK IV ×2 (08:49→18:02)
[2024-05-14] MEDS: Metoprolol Succinate ER 50 MG TAB.ER.24H PO (08:50)
[2024-05-14] MEDS: Magnesium Oxide 400 MG TABLET PO ×2 (08:50→18:02)
[2024-05-14] MEDS: Folic Acid 1 MG TABLET PO (08:50)
[2024-05-14] MEDS: 0.9 % Sodium Chloride Flush 3 ML SYRINGE IVFLUSH ×3 (08:51→23:57)
--- NOTE | 2024-05-14 09:00 | P.PNGS_ITS ---
Subjective Subjective Date of Service: 05/14/24 Interval history: Feels much better Denies significant pain Physical Exam 2 Vital Signs: Vital Signs: Last Vital Signs Temp 97.7 F 05/14/24 08:23 Pulse 72 05/14/24 08:50 Resp 16 05/14/24 08:23 BP 134/71 05/14/24 08:50 Pulse Ox 100 05/14/24 08:23 O2 Del Method Room Air 05/14/24 08:23 BMI result Body Mass Index 34.2 Const: General: comfortable and no acute distress Resp: Effort & Inspection: normal respiratory effort GI: Other: I and D site on the left flank area open, with a scanty drainage, no significant tenderness, no fluctuance Objective Data Active Medications Acetaminophen (Acetaminophen 325 Mg Tablet) 650 mg PO Q6H PRN PRN Reason: Pain, Mild (Pain Scale 1-3), fever or headache Atorvastatin Calcium (Atorvastatin Calcium 20 Mg Tablet) 20 mg PO BEDTIME [facility] Calcium Carbonate (Calcium Carbonate 750 Mg Tab.Chew) 750 mg PO Q4H PRN PRN Reason: Heartburn Enoxaparin Sodium (Enoxaparin Sodium 40 Mg/0.4 Ml Syringe) 40 mg SUBCUT Q24H [facility] Last Admin: 05/13/24 18:04 Dose: 40 mg Documented By: SARAH Folic Acid (Folic Acid 1 Mg Tablet) 1 mg PO DAILY [facility] Last Admin: 05/14/24 08:50 Dose: 1 mg Documented By: MALVIN Vancomycin HCl 1,000 mg/ (Sodium Chloride) 270 mls @ 270 mls/hr IV Q12H [facility] Magnesium Sulfate (Magnesium Sulfate/H2o) 2 gm in 50 mls @ 25 mls/hr IV ONCE ONE Stop: 05/14/24 09:16 Last Admin: 05/14/24 08:49 Dose: 25 mls/hr Documented By: MALVIN Lactic Acid (Ammonium Lactate 12 % Lotion 226 Gm Bottle) 1 appl TOPICAL BID [facility]; Protocol Last Admin: 05/13/24 22:31 Dose: Not Given Documented By: TOI Non-Admin Reason: Med Not Available Magnesium Hydroxide (Milk Of Magnesia 30 Ml Oral.Susp) 30 ml PO DAILY PRN PRN Reason: Constipation Magnesium Oxide ([facility] 400 Mg Tablet) [facility] Last Admin: 05/14/24 08:50 Dose: 400 mg Documented By: MALVIN Melatonin (Melatonin 3 Mg Tablet) 6 mg PO BEDTIME PRN PRN Reason: Insomnia Metoprolol Succinate (Metoprolol Succinate Er 50 Mg Tab.Er.24h) 50 mg PO DAILY [facility]; Protocol Last Admin: 05/14/24 08:50 Dose: 50 mg Documented By: MALVIN Pharmacy Consult (Consult Rx Vancomycin Dosing) 1 each MISCELLANE DAILY PRN PRN Reason: Consult order Sodium Chloride (0.9 % Sodium Chloride Flush 3 Ml Syringe) 3 ml IVFLUSH QSHIFT [facility] Last Admin: 05/14/24 08:51 Dose: 3 ml Documented By: MALVIN Labs 05/14/24 05:19 05/14/24 05:19 Labs: Laboratory Results - last 24 hr 05/13/24 05/13/24 05/14/24 12:40 17:21 05:19 MCV 84.5 84.7 MCH 26.8 L 27.0 MCHC 31.8 31.9 RDW 17.7 H 17.7 H Plt Count 87 L D 92 L MPV 8.7 L 8.6 L Immature Gran % (Auto) 0.3 0.4 Neut % (Auto) 65.1 73.4 H Lymph % (Auto) 23.3 13.8 L [place] % (Auto) 7.9 8.8 Eos % (Auto) 2.6 2.8 Baso % (Auto) 0.8 0.8 Lymph # (Auto) 1.7 0.7 L [place] # (Auto) 0.6 0.4 Eos # (Auto) 0.2 0.1 Baso # (Auto) 0.1 0.0 Abs Immat Gran (auto) 0.02 0.02 Absolute Neuts (auto) 4.8 3.7 Absolute Nucleated RBC 0.000 0.000 Nucleated RBC % (auto) 0.0 0.0 ESR 71 H PT 13.2 H INR 1.1 Anion Gap 19 16 Estim Creat Clear Calc 87.6 84.2 Estimated GFR > 60 > 60 Random Glucose 78 89 Lactic Acid 1.0 Calcium 8.8 8.7 Magnesium 1.0 L* 1.3 L* Total Bilirubin 1.7 H 1.3 H Direct Bilirubin 0.8 H 0.5 AST 15 13 ALT < 5 5 Alkaline Phosphatase 105 100 C-Reactive Protein 5.58 H B-Natriuretic Peptide 243 H Total Protein 7.3 6.8 Albumin 3.5 3.3 L Lipase 13 Urine Color Yellow Urine Appearance Clear Urine pH 5.5 Ur Specific [place] 1.010 Urine Protein Negative Urine Glucose (UA) Negative Urine Ketones 15 Urine Blood Negative Urine Nitrite Negative Ur Leukocyte Esterase Negative Microbiology Microbiology Results: Microbiology 05/13/24 17:21 Gram Stain - Final Abscess Appendiceal Procedures Date of Service Date of Service: 05/14/24 Progress Note: A&P Assessment and plan (1) Abdominal wall abscess at site of surgical wound: Status: Acute Assessment and Plan: I probed the I&D cavity with a Q-tip release any residual fluid I applied a light packing Dressings were placed He is on IV antibiotics Follow-up ulcers of the abscess At some point, I told him that he should have a follow up with his surgeon in [facility] Time Spent With Patient Time: Total time managing care of this patient today ____ minutes. Quality Stroke Does the patient have a stroke diagnosis?: No VTE Prior VTE?: No VTE Risk Level:: Medical - moderate - high VTE Device Contraindication: Treatment Not Indicated VTE Drug Contraindication: N/A - Med Ordered
--- NOTE | 2024-05-14 10:55 | MHC.CM.PN ---
Pt lives with his mother, and he takes care of her, she has Alzhiemer's Disease. He has MOW, and uses a rollator walker to go long distances. HCP is on file and confirmed; his sister. Niharika. PCP confirmed: Janet Singh. Pt has requested VNA services for when he goes home to assist him with wound care. DCP: home with services, CM to follow and assist with DCP.
--- NOTE | 2024-05-14 12:11 | P.PNIM_ITS ---
Subjective Subjective Date of Service: 05/14/24 Interval History: Seen and examined this morning Follow-up for abdominal abscess No overnight events No specific complaints this morning, no abdominal pain, no fever, no chills Review of Systems Review of Systems: Yes all other systems are reviewed and are negative Constitutional Constitutional: Denies chills and Denies fever(s) Physical Exam 2 Vital Signs: Vital Signs: Last Vital Signs Temp 97.7 F 05/14/24 08:23 Pulse 72 05/14/24 08:50 Resp 16 05/14/24 08:23 BP 134/71 05/14/24 08:50 Pulse Ox 100 05/14/24 08:23 O2 Del Method Room Air 05/14/24 08:23 BMI result Body Mass Index 34.2 Const: General: cooperative, alert and awake Nutritional Appearance: o verweight Orientation/consciousness: patient oriented x3 HEENT: Head: Yes normocephalic and Yes atraumatic Eyes: Sclerae: sclerae normal Chest: Chest palpation & inspection: normal inspection of the chest Resp: Effort & Inspection: normal respiratory effort and no respiratory distress Auscultation: clear to auscultation bilaterally Cardio: Rate: regular rate Rhythm: regular rhythm GI: Other: Abdomen is soft, nontender, left flank area with clean/dry/intact dressing in place. Left flank surrounding area with large area of induration Palpation (GI): Soft to palpation and nontender Skin: Other: Bilateral lower extremities with chronic venous stasis changes, chronic thickened skin Neuro: General: patient oriented x3 Cranial nerves: Yes CN's II-XII intact bilaterally and Yes Bilaterally intact EOM present Extrem: General: Yes normal to inspection Objective Data Active Medications Acetaminophen (Acetaminophen 325 Mg Tablet) 650 mg PO Q6H PRN PRN Reason: Pain, Mild (Pain Scale 1-3), fever or headache Atorvastatin Calcium (Atorvastatin Calcium 20 Mg Tablet) 20 mg PO BEDTIME [facility] Calcium Carbonate (Calcium Carbonate 750 Mg Tab.Chew) 750 mg PO Q4H PRN PRN Reason: Heartburn Enoxaparin Sodium (Enoxaparin Sodium 40 Mg/0.4 Ml Syringe) 40 mg SUBCUT Q24H [facility] Last Admin: 05/13/24 18:04 Dose: 40 mg Documented By: SARAH Folic Acid (Folic Acid 1 Mg Tablet) 1 mg PO DAILY [facility] Last Admin: 05/14/24 08:50 Dose: 1 mg Documented By: MALVIN Vancomycin HCl 1,000 mg/ (Sodium Chloride) 270 mls @ 270 mls/hr IV Q12H [facility] Lactic Acid (Ammonium Lactate 12 % Lotion 226 Gm Bottle) 1 appl TOPICAL BID [facility]; Protocol Last Admin: 05/14/24 11:26 Dose: Not Given Documented By: MALVIN Non-Admin Reason: Med Not Available Magnesium Hydroxide (Milk Of Magnesia 30 Ml Oral.Susp) 30 ml PO DAILY PRN PRN Reason: Constipation Magnesium Oxide (Magnesium Oxide 400 Mg Tablet) 400 mg PO BIDPC [facility] Last Admin: 05/14/24 08:50 Dose: 400 mg Documented By: MALVIN Melatonin (Melatonin 3 Mg Tablet) 6 mg PO BEDTIME PRN PRN Reason: Insomnia Metoprolol Succinate (Metoprolol Succinate Er 50 Mg Tab.Er.24h) 50 mg PO DAILY [facility]; Protocol Last Admin: 05/14/24 08:50 Dose: 50 mg Documented By: MALVIN Pharmacy Consult (Consult Rx Vancomycin Dosing) 1 each MISCELLANE DAILY PRN PRN Reason: Consult order Sodium Chloride (0.9 % Sodium Chloride Flush 3 Ml Syringe) 3 ml IVFLUSH QSHIFT [facility] Last Admin: 05/14/24 08:51 Dose: 3 ml Documented By: MALVIN Labs 05/14/24 05:19 05/14/24 05:19 Labs: Laboratory Results - last 24 hr 05/13/24 05/13/24 05/14/24 12:40 17:21 05:19 MCV 84.5 84.7 MCH 26.8 L 27.0 MCHC 31.8 31.9 RDW 17.7 H 17.7 H Plt Count 87 L D 92 L MPV 8.7 L 8.6 L Immature Gran % (Auto) 0.3 0.4 Neut % (Auto) 65.1 73.4 H Lymph % (Auto) 23.3 13.8 L Jenkins % (Auto) 7.9 8.8 Eos % (Auto) 2.6 2.8 Baso % (Auto) 0.8 0.8 Lymph # (Auto) 1.7 0.7 L Jenkins # (Auto) 0.6 0.4 Eos # (Auto) 0.2 0.1 Baso # (Auto) 0.1 0.0 Abs Immat Gran (auto) 0.02 0.02 Absolute Neuts (auto) 4.8 3.7 Absolute Nucleated RBC 0.000 0.000 Nucleated RBC % (auto) 0.0 0.0 ESR 71 H PT 13.2 H INR 1.1 Anion Gap 19 16 Estim Creat Clear Calc 87.6 84.2 Estimated GFR > 60 > 60 Random Glucose 78 89 Lactic Acid 1.0 Calcium 8.8 8.7 Magnesium 1.0 L* 1.3 L* Total Bilirubin 1.7 H 1.3 H Direct Bilirubin 0.8 H 0.5 AST 15 13 ALT < 5 5 Alkaline Phosphatase 105 100 C-Reactive Protein 5.58 H B-Natriuretic Peptide 243 H Total Protein 7.3 6.8 Albumin 3.5 3.3 L Lipase 13 Urine Color Yellow Urine Appearance Clear Urine pH 5.5 Ur Specific [place] 1.010 Urine Protein Negative Urine Glucose (UA) Negative Urine Ketones 15 Urine Blood Negative Urine Nitrite Negative Ur Leukocyte Esterase Negative Microbiology Microbiology Results: Microbiology 05/13/24 17:21 Gram Stain - Final Abscess Appendiceal Routine Culture - Preliminary No growth to date. Assessment and Plan (1) Abdominal wall abscess at site of surgical wound: Status: Acute (2) Hypomagnesemia: Status: Acute Plan 63 year old male htn, ckd, ascending aortic dilitation, iron deficiency anemia, hld, chronic venous stasis dermatitis, hx of etoh use disorder, history of DVT no longer on ac admitted for evaluation of multiple falls with nonhealing scalp laceration and alcohol use disorder/withdrawal. #Acute cellulitis and abscess LLQ -CT abdomen/pelvis shows extensive subcutaneous edema of the left flank and left abdominal wall with amorphous fluid and phlegmonous change in the left lateral abdominal wall measuring 5.8 x 3.4 x 4.5 cm. There is also left perinephric and periureteric stranding -no leukocytosis, no sepsis -bedside I&D performed by general surgery, fluid culture and blood cultures pending -continue IV vanco (initiated 05/13) -General surgery consult. ?connecting to L kidney, urology consult #Chronic hypomagnesemia -etiology unclear. Denies regular etoh use, no persistent diarrhea, no significant renal disease, no ppi or metformin use, no diuretics Improving -resume mag oxide 400mg BID (had run out of prescription) -iv Mag Follow levels #chronic thrombocytopenia -likely related to alcohol use, underlying liver disease -monitor platelet count #Alcohol use disorder -reports only occasional use on weekends # anemia of chronic disease H/H appears at baseline Above transfusion threshold #HTN -metoprolol #Hyperbilirubinemia -likely r/t chronic liver disease Bili trending down, no abdominal pain #Chronic venous stasis -outpt follow up, ammonium lactate Morbid obesity BMI 34.2 Weight loss encouraged Full code DVT prophylaxis- sub cut lovenox, monitor plt closely, hold if 70 or less Patient requires ongoing inpatient stay for cellulitis and abscess of abd wall requiring I&D as well as IV abx with severe hypomagnesemia requiring iv repletion and close monitoring Quality Stroke Does the patient have a stroke diagnosis?: No VTE Prior VTE?: No VTE Risk Level:: Medical - moderate - high VTE Device Contraindication: Treatment Not Indicated VTE Drug Contraindication: N/A - Med Ordered
[2024-05-14 14:57] LABS: Vancomycin Random 16.9 mcg/mL (15-20)
[2024-05-14] MEDS: Enoxaparin Sodium 40 MG/0.4 ML SYRINGE SUBCUT (18:02)
[2024-05-14] MEDS: Atorvastatin Calcium 20 MG TABLET PO (21:10)
[2024-05-14] MEDS: Ammonium Lactate 12 % Lotion 226 GM BOTTLE 1 APPL TOPICAL (22:58)
[2024-05-14] MEDS: vancomycin HCL 1,000 MG in 0.9 % Sodium Chloride 250 ML 270 MG IV (22:58)
[2024-05-15 02:52] VITALS: BP 149/73; PULSE 56; RESP 16; TEMP 37.2; O2SAT 96
[2024-05-15 07:32] VITALS: BP 156/85; PULSE 60; RESP 18; TEMP 36.6; O2SAT 95
[2024-05-15 08:08] LABS: Anion Gap 11 (12-20); Blood Urea Nitrogen 13 mg/dL (9-16); Calcium 8.5 mg/dL (8.4-10.2); Carbon Dioxide 24 mmol/L (22-29); Chloride 105 mmol/L (96-108); Creatinine Clr Calc Pharmacy 86.7; Estimated Glomerular Filt Rate > 60; Glucose Random 94 mg/dL (60-115); Magnesium 1.8 mg/dL (1.6-2.6); Potassium 3.2 mmol/L (3.3-5.1); Sodium 137 mmol/L (135-145)
--- NOTE | 2024-05-15 09:02 | P.CDIM_ITS ---
PROVIDER RESPONSE TEXT: To clarify, the appropriate diagnosis supported by the clinical indicators: subcutaneous tissue and fascia QUERY TEXT: PHYSICIAN'S DOCUMENTATION REQUEST Date of Query: 05/14/2024 08:44 AM EDT Patient Name: Mohan Gonzalez Admit Date: 05/13/2024 Dear Curry Jaramillo MD, A review of the medical record indicates additional documentation may be needed. Please review below and update the documentation accordingly. Clinical Indicators: Per General Surgery note 05/13/24: I&D done bedside Date of Service: 05/13/24 Abscess I/D Consent for Procedure: Elective - informed consent obtained Site: other (Left flank area) Side (if applicable): left Anesthetic used: lidocaine 1% Technique: incised with #11 blade Amount of fluid (mL): 25 Packing used?: none Additional comments: Cultures taken Based on the above, could you clarify the depth of the I&D: skin subcutaneous tissue and fascia muscle Other (explain) Clinically unable to determine (explain) Thank you, Estefany Tillman RN Use of terms such as suspected, likely, concern for, or probable (associated with a specific diagnosi s that is being evaluated, monitored, or treated as if it exists) are acceptable and can be coded in the inpatient se tting, when documented at the time of discharge. Please use your independent medical judgment in providing your response. THIS QUERY IS PART OF THE PERMANENT MEDICAL RECORD
[2024-05-15 09:04] VITALS: BP 156/85; PULSE 60
[2024-05-15] MEDS: Folic Acid 1 MG TABLET PO (09:04)
[2024-05-15] MEDS: Metoprolol Succinate ER 50 MG TAB.ER.24H PO (09:04)
[2024-05-15] MEDS: 0.9 % Sodium Chloride Flush 3 ML SYRINGE IVFLUSH ×3 (09:05→22:29)
[2024-05-15] MEDS: Magnesium Oxide 400 MG TABLET PO ×2 (09:11→16:59)
[2024-05-15] MEDS: Ammonium Lactate 12 % Lotion 226 GM BOTTLE 1 APPL TOPICAL ×2 (09:12→20:18)
--- NOTE | 2024-05-15 09:12 | PM.EVENT ---
Event Note Date of Service: 05/15/24 Event Note: No complaints No events reported I have changed his dressing I&D site clean, some scanty thin drainage Wet-to-dry dressings the area On IV antibiotics Cultures with no growth so far I explained to the patient at some point after discharge, he should follow up with this surgeon in [facility] Time Spent With Patient Time: Total time managing care of this patient today ____ minutes.
[2024-05-15] MEDS: Potassium Chloride Packet 20 MEQ PACKET 40 MEQ PO (10:34)
--- NOTE | 2024-05-15 12:45 | MHC.CM.PN ---
EMR REVIEWED AND PER MD ROUNDS, PT IS AWAITING A UROLOGY CONSULT. CM MET WITH PT WHO REQUESTS A [facility] ON DC TO ASSIST WITH WOUND CARE. [facility] ACCEPTS BUT WILL NOT BE ABLE TO DO DAILY DRESSINGS. CM WILL CONTINUE TO FOLLOW FOR PLAN
--- NOTE | 2024-05-15 13:02 | P.CNUR_ITS ---
History of Present Illness Consult details Consult date: 05/14/24 Narrative: CC: Left abdominal wall abscess Underwent partial nephrectomy 12/16 [facility] [place] Saturday felt firmness on incision sites Woke to discharge of purulent material CT shows body wall abscess. Kidney appears well healed. Recommend continue conservative therapy with antibiotics and dressing changes Review of Systems 2 Constitutional: Constitutional: Reports as per HPI and Reports no additional constitutional complaints Cardiovascular: Cardiovascular: Reports as per HPI and Reports no additional cardiovascular complaints Respiratory: Respiratory: Reports as per HPI and Reports no additional respiratory complaints Gastrointestinal: Gastrointestinal: Reports as per HPI and Reports no additional gastrointestinal complaints Genitourinary: Genitourinary: Reports as per HPI Musculoskeletal: Musculoskeletal: Reports no additional musculoskeletal complaints and Reports as per HPI Neurologic: Reports system reviewed and no additional complaints, except as documented and Reports as per HPI PMF Past Medical History Medical History (Updated 05/15/24 @ 13:04 by Kyle Corrigan MD) Renal mass Abdominal wall abscess at site of surgical wound HTN (hypertension) Colitis Alcohol use disorder Hyperlipidemia Ascending aortic aneurysm Alcoholic steatohepatitis Seborrheic dermatitis DEBORAH (obstructive sleep apnea) History of rhabdomyolysis Hx of lower gastrointestinal bleeding Hx of sepsis History of DVT of lower extremity Chronic ulcer of leg Chronic venous stasis Anemia Anemia Family History Family History Mother Dementia Maternal Grandmother Dementia Surgical History Surgical History Hx of colonoscopy Social History Social History Household Members: Family Housing: House Housing Other:: 4 stairs to get into house. Pt lives in basement Do you presently have visiting nurse or other home services: No Alcohol intake: current Alcohol intake frequency: other Alcohol type: hard liquor Comment: pt refused socks Patient Tobacco Use Status: Never used Tobacco Advance Directives Date on File: 04/13/22 service: No Current occupational status: disabled Meds Allergies Allergy/AdvReac Type Severity Reaction Status Date / Time azithromycin [AZITHROMYCIN] Allergy Severe FACIAL Verified 05/13/24 11:44 SWELLING hydrochlorothiazide [HCTZ] Allergy Severe Facial Verified 05/13/24 11:44 Swelling Active Medications: Current Medications Acetaminophen (Acetaminophen 325 Mg Tablet) 650 mg PO Q6H PRN PRN Reason: Pain, Mild (Pain Scale 1-3), fever or headache Atorvastatin Calcium (Atorvastatin Calcium 20 Mg Tablet) 20 mg PO BEDTIME [facility] Last Admin: 05/14/24 21:10 Dose: 20 mg Calcium Carbonate (Calcium Carbonate 750 Mg Tab.Chew) 750 mg PO Q4H PRN PRN Reason: Heartburn Enoxaparin Sodium (Enoxaparin Sodium 40 Mg/0.4 Ml Syringe) 40 mg SUBCUT Q24H [facility] Last Admin: 05/14/24 18:02 Dose: 40 mg Folic Acid (Folic Acid 1 Mg Tablet) 1 mg PO DAILY [facility] Last Admin: 05/15/24 09:04 Dose: 1 mg Vancomycin HCl 1,000 mg/ (Sodium Chloride) 270 mls @ 270 mls/hr IV Q24H [facility] Last Infusion: 05/14/24 23:58 Dose: Infused Lactic Acid (Ammonium Lactate 12 % Lotion 226 Gm Bottle) 1 appl TOPICAL BID [facility]; Protocol Last Admin: 05/15/24 09:12 Dose: 1 appl Magnesium Hydroxide (Milk Of Magnesia 30 Ml Oral.Susp) 30 ml PO DAILY PRN PRN Reason: Constipation Magnesium Oxide (Magnesium Oxide 400 Mg Tablet) 400 mg PO BIDPC [facility] Last Admin: 05/15/24 09:11 Dose: 400 mg Melatonin (Melatonin 3 Mg Tablet) 6 mg PO BEDTIME PRN PRN Reason: Insomnia Metoprolol Succinate (Metoprolol Succinate Er 50 Mg Tab.Er.24h) 50 mg PO DAILY [facility]; Protocol Last Admin: 05/15/24 09:04 Dose: 50 mg Pharmacy Consult (Consult Rx Vancomycin Dosing) 1 each MISCELLANE DAILY PRN PRN Reason: Consult order Sodium Chloride (0.9 % Sodium Chloride Flush 3 Ml Syringe) 3 ml IVFLUSH QSHIFT [facility] Last Admin: 05/15/24 09:05 Dose: 3 ml Home Medications ?Medication ?Instructions ?Recorded ?Confirmed ?Last Taken ?Type metoprolol succinate 50 mg 50 mg PO DAILY 10/30/22 05/13/24 05/10/24 History tablet,extended release 24 hr rosuvastatin 5 mg tablet 5 mg PO BEDTIME 08/26/23 05/13/24 05/10/24 History cyanocobalamin (vitamin B-12) 1,000 mcg IM Q30D 02/05/24 05/13/24 05/06/24 History 1,000 mcg/mL injection solution Physical Exam 2 Vital Signs: Vital Signs: Last Vital Signs Temp 97.9 F 05/15/24 07:32 Pulse 60 05/15/24 09:04 Resp 18 05/15/24 07:32 BP 156/85 H 05/15/24 09:04 Pulse Ox 95 05/15/24 07:32 O2 Del Method Room Air 05/15/24 07:32 BMI result Body Mass Index 34.2 Const: General: cooperative, healthy appearing, comfortable and no acute distress Orientation/consciousness: patient oriented x3 HEENT: Face and sinus: Yes normal facial exam Mouth: moist mucous membranes Neck: Neck: Yes normal visual inspection, Yes full ROM and Yes trachea midline Chest: Chest palpation & inspection: normal inspection of the chest Resp: Effort & Inspection: normal respiratory effort, able to speak in complete sentences and no respiratory distress GI: Inspection: Yes normal to inspection Back/Spine/Pelvis: Cervical Spine: normal cervical lordosis Thoracic/Lumbar Spine: thoracic and lumbar spine normal to inspection Skin: General skin exam: no rashes or lesions noted Neuro: General: patient oriented x3, tone normal and moves all extremities Extrem: General: Yes normal to inspection and Yes capillary refill normal Results Labs 05/14/24 05:19 05/15/24 05:27 Labs: Abnormal lab results 05/15/24 Range/Units 05:27 Potassium 3.2 L (3.3-5.1) mmol/L Anion Gap 11 L (12-20) BMP 05/15/24 05:27 Sodium 137 Potassium 3.2 L Chloride 105 Carbon Dioxide 24 BUN 13 Creatinine 0.99 Calcium 8.5 Urine 05/13/24 Range/Units 17:21 Urine Color Yellow Urine Appearance Clear Urine pH 5.5 (5.0-9.0) Ur Specific [place] 1.010 (1.005-1.025) Urine Protein Negative (Neg-Trace) mg/dL Urine Glucose (UA) Negative (Negative) mg/dL All other labs normal. Assessment and Plan (1) Renal cell carcinoma: Status: Acute (2) Abdominal wall abscess at site of surgical wound: Status: Acute Plan Continue antibiotics conservative wound management Procedures Date of Service Date of Service: 05/15/24
--- NOTE | 2024-05-15 14:15 | P.PNIM_ITS ---
Subjective Subjective Date of Service: 05/15/24 Interval History: Seen and examined this morning Follow-up for cellulitis and abscess of abdomen No overnight events No abdominal pain, nausea, vomiting. No fever, chills Review of Systems Review of Systems: Yes all other systems are reviewed and are negative Constitutional Constitutional: Denies chills and Denies fever(s) Cardiovascular Cardiovascular: Denies chest pain, Denies palpitations and Denies dyspnea Respiratory Respiratory: Denies cough and Denies dyspnea Endocrine Endocrine: Denies palpitations Physical Exam 2 Vital Signs: Vital Signs: Last Vital Signs Temp 97.9 F 05/15/24 07:32 Pulse 60 05/15/24 09:04 Resp 18 05/15/24 07:32 BP 156/85 H 05/15/24 09:04 Pulse Ox 95 05/15/24 07:32 O2 Del Method Room Air 05/15/24 07:32 BMI result Body Mass Index 34.2 Const: General: cooperative, alert and awake Nutritional Appearance: o verweight Orientation/consciousness: patient oriented x3 HEENT: Head: Yes normocephalic and Yes atraumatic Eyes: Sclerae: sclerae normal Chest: Chest palpation & inspection: normal inspection of the chest Resp: Effort & Inspection: normal respiratory effort and no respiratory distress Auscultation: clear to auscultation bilaterally Cardio: Rate: regular rate Rhythm: regular rhythm GI: Other: Abdomen is soft, nontender, left flank area with clean/dry/intact dressing in place. Left flank surrounding area with large area of induration Palpation (GI): Soft to palpation and nontender Skin: Other: Bilateral lower extremities with chronic venous stasis changes, chronic thickened skin Neuro: General: patient oriented x3 Cranial nerves: Yes CN's II-XII intact bilaterally and Yes Bilaterally intact EOM present Extrem: General: Yes normal to inspection Objective Data Active Medications Acetaminophen (Acetaminophen 325 Mg Tablet) 650 mg PO Q6H PRN PRN Reason: Pain, Mild (Pain Scale 1-3), fever or headache Atorvastatin Calcium (Atorvastatin Calcium 20 Mg Tablet) 20 mg PO BEDTIME [facility] Last Admin: 05/14/24 21:10 Dose: 20 mg Documented By: RANJANA Calcium Carbonate (Calcium Carbonate 750 Mg Tab.Chew) 750 mg PO Q4H PRN PRN Reason: Heartburn Enoxaparin Sodium (Enoxaparin Sodium 40 Mg/0.4 Ml Syringe) 40 mg SUBCUT Q24H [facility] Last Admin: 05/14/24 18:02 Dose: 40 mg Documented By: KALYN Folic Acid (Folic Acid 1 Mg Tablet) 1 mg PO DAILY [facility] Last Admin: 05/15/24 09:04 Dose: 1 mg Documented By: KALYN Vancomycin HCl 1,000 mg/ (Sodium Chloride) 270 mls @ 270 mls/hr IV Q24H [facility] Last Infusion: 05/14/24 23:58 Dose: Infused Documented By: RANJANA Lactic Acid (Ammonium Lactate 12 % Lotion 226 Gm Bottle) 1 appl TOPICAL BID [facility]; Protocol Last Admin: 05/15/24 09:12 Dose: 1 appl Documented By: KALYN Magnesium Hydroxide (Milk Of Magnesia 30 Ml Oral.Susp) 30 ml PO DAILY PRN PRN Reason: Constipation Magnesium Oxide (Magnesium Oxide 400 Mg Tablet) 400 mg PO BIDPC [facility] Last Admin: 05/15/24 09:11 Dose: 400 mg Documented By: KALYN Melatonin (Melatonin 3 Mg Tablet) 6 mg PO BEDTIME PRN PRN Reason: Insomnia Metoprolol Succinate (Metoprolol Succinate Er 50 Mg Tab.Er.24h) 50 mg PO DAILY [facility]; Protocol Last Admin: 05/15/24 09:04 Dose: 50 mg Documented By: KALYN Pharmacy Consult (Consult Rx Vancomycin Dosing) 1 each MISCELLANE DAILY PRN PRN Reason: Consult order Sodium Chloride (0.9 % Sodium Chloride Flush 3 Ml Syringe) 3 ml IVFLUSH QSHIFT [facility] Last Admin: 05/15/24 09:05 Dose: 3 ml Documented By: KALYN Labs 05/14/24 05:19 05/15/24 05:27 Labs: Laboratory Results - last 24 hr 05/14/24 05/15/24 14:25 05:27 Hold Purple Top SEE NOTE Anion Gap 11 L Estim Creat Clear Calc 86.7 Estimated GFR > 60 Random Glucose 94 Calcium 8.5 Magnesium 1.8 Random Vancomycin 16.9 Microbiology Microbiology Results: Microbiology 05/13/24 12:40 Blood Culture - Preliminary Blood - Venous No growth after 24 hours. 05/13/24 12:40 Blood Culture - Preliminary Blood - Venous No growth after 24 hours. Assessment and Plan (1) Abdominal wall abscess at site of surgical wound: Status: Acute (2) Hypomagnesemia: Status: Acute Plan 63 year old male htn, ckd, ascending aortic dilitation, iron deficiency anemia, hld, chronic venous stasis dermatitis, hx of etoh use disorder, history of DVT no longer on ac admitted for evaluation of multiple falls with nonhealing scalp laceration and alcohol use disorder/withdrawal. #Acute cellulitis and abscess LLQ -CT abdomen/pelvis shows extensive subcutaneous edema of the left flank and left abdominal wall with amorphous fluid and phlegmonous change in the left lateral abdominal wall measuring 5.8 x 3.4 x 4.5 cm. There is also left perinephric and periureteric stranding UA negative -no leukocytosis, no sepsis -bedside I&D performed by general surgery, fluid culture and blood cultures negative -continue IV vanco (initiated 05/13) -General surgery following Seen by Urology -agree with current management ID consult pending We will need outpatient follow-up with surgeon at [facility] after discharge #Chronic hypomagnesemia -etiology unclear. Denies regular etoh use, no persistent diarrhea, no significant renal disease, no ppi or metformin use, no diuretics Improved with PO and IV replacement -resume mag oxide 400mg BID (had run out of prescription) Follow levels #chronic thrombocytopenia -likely related to alcohol use, underlying liver disease -monitor platelet count #Alcohol use disorder -reports only occasional use on weekends # anemia of chronic disease H/H appears at baseline Above transfusion threshold #HTN -metoprolol #Hyperbilirubinemia -likely r/t chronic liver disease Bili trending down, no abdominal pain #Chronic venous stasis -outpt follow up, ammonium lactate Morbid obesity BMI 34.2 Weight loss encouraged Full code DVT prophylaxis- sub cut lovenox, hold if platelets 70 or less Patient requires ongoing inpatient stay for cellulitis and abscess of abd wall requiring I&D as well as IV abx with severe hypomagnesemia requiring iv repletion and close monitoring Quality Stroke Does the patient have a stroke diagnosis?: No VTE Prior VTE?: No VTE Risk Level:: Medical - moderate - high VTE Device Contraindication: Treatment Not Indicated VTE Drug Contraindication: N/A - Med Ordered
[2024-05-15 15:13] VITALS: BP 132/72; PULSE 59; RESP 20; TEMP 36.7; O2SAT 98
[2024-05-15] MEDS: Enoxaparin Sodium 40 MG/0.4 ML SYRINGE SUBCUT (16:58)
[2024-05-15 19:54] VITALS: BP 133/75; PULSE 60; RESP 18; TEMP 36.6; O2SAT 95
[2024-05-15] MEDS: Atorvastatin Calcium 20 MG TABLET PO (20:18)
[2024-05-15] MEDS: vancomycin HCL 1,000 MG in 0.9 % Sodium Chloride 250 ML 270 MG IV (22:30)
--- NOTE | 2024-05-15 22:41 | W.PM.IDCN ---
History of Present Illness Data of Consult Service Date: 05/15/24 Requesting physician: Sara Oleary Primary Care Provider: Samantha Gonzales MD HPI Reason for consult: abdominal abscess He presents with left sided draining area abdomen. He has had 12/[address] Sow. He coughed last week and incision there opened up and copious amounts ongoing serous drainage. There is no culture at this time or bacteremia. He has CKD and alcohol use disorder in past. Review of Systems Review of Systems: Yes all other systems are reviewed and are negative Constitutional: Comments: draining area LLQ PMFSH Past Medical History Medical History Renal mass Abdominal wall abscess at site of surgical wound HTN (hypertension) Colitis Alcohol use disorder Hyperlipidemia Ascending aortic aneurysm Alcoholic steatohepatitis Seborrheic dermatitis DEBORAH (obstructive sleep apnea) History of rhabdomyolysis Hx of lower gastrointestinal bleeding Hx of sepsis History of DVT of lower extremity Chronic ulcer of leg Chronic venous stasis Anemia Anemia Family History Family History Mother Dementia Maternal Grandmother Dementia Family history: reviewed and not pertinent Surgical History Surgical History Hx of colonoscopy Social History Social History Household Members: Family Housing: House Housing Other:: 4 stairs to get into house. Pt lives in basement Do you presently have visiting nurse or other home services: No Alcohol intake: current Alcohol intake frequency: other Alcohol type: hard liquor Comment: pt refused socks Patient Tobacco Use Status: Never used Tobacco Advance Directives Date on File: 04/13/22 service: No Current occupational status: disabled Meds Allergies Allergy/AdvReac Type Severity Reaction Status Date / Time azithromycin [AZITHROMYCIN] Allergy Severe FACIAL Verified 05/13/24 11:44 SWELLING hydrochlorothiazide [HCTZ] Allergy Severe Facial Verified 05/13/24 11:44 Swelling Active Medications: Current Medications Acetaminophen (Acetaminophen 325 Mg Tablet) 650 mg PO Q6H PRN PRN Reason: Pain, Mild (Pain Scale 1-3), fever or headache Atorvastatin Calcium (Atorvastatin Calcium 20 Mg Tablet) 20 mg PO BEDTIME [facility] Last Admin: 05/15/24 20:18 Dose: 20 mg Calcium Carbonate (Calcium Carbonate 750 Mg Tab.Chew) 750 mg PO Q4H PRN PRN Reason: Heartburn Enoxaparin Sodium (Enoxaparin Sodium 40 Mg/0.4 Ml Syringe) 40 mg SUBCUT Q24H [facility] Last Admin: 05/15/24 16:58 Dose: 40 mg Folic Acid (Folic Acid 1 Mg Tablet) 1 mg PO DAILY [facility] Last Admin: 05/15/24 09:04 Dose: 1 mg Vancomycin HCl 1,000 mg/ (Sodium Chloride) 270 mls @ 270 mls/hr IV Q24H [facility] Last Admin: 05/15/24 22:30 Dose: 270 mls/hr Lactic Acid (Ammonium Lactate 12 % Lotion 226 Gm Bottle) 1 appl TOPICAL BID [facility]; Protocol Last Admin: 05/15/24 20:18 Dose: 1 appl Magnesium Hydroxide (Milk Of Magnesia 30 Ml Oral.Susp) 30 ml PO DAILY PRN PRN Reason: Constipation Magnesium Oxide (Magnesium Oxide 400 Mg Tablet) 400 mg PO BIDPC [facility] Last Admin: 05/15/24 16:59 Dose: 400 mg Melatonin (Melatonin 3 Mg Tablet) 6 mg PO BEDTIME PRN PRN Reason: Insomnia Metoprolol Succinate (Metoprolol Succinate Er 50 Mg Tab.Er.24h) 50 mg PO DAILY [facility]; Protocol Last Admin: 05/15/24 09:04 Dose: 50 mg Pharmacy Consult (Consult Rx Vancomycin Dosing) 1 each MISCELLANE DAILY PRN PRN Reason: Consult order Sodium Chloride (0.9 % Sodium Chloride Flush 3 Ml Syringe) 3 ml IVFLUSH QSHIFT [facility] Last Admin: 05/15/24 22:29 Dose: 3 ml Home Medications ?Medication ?Instructions ?Recorded ?Confirmed ?Last Taken ?Type metoprolol succinate 50 mg 50 mg PO DAILY 10/30/22 05/13/24 05/10/24 History tablet,extended release 24 hr rosuvastatin 5 mg tablet 5 mg PO BEDTIME 08/26/23 05/13/24 05/10/24 History cyanocobalamin (vitamin B-12) 1,000 mcg IM Q30D 02/05/24 05/13/24 05/06/24 History 1,000 mcg/mL injection solution Physical Exam Vital Signs: Vital Signs: Last Vital Signs Temp 97.9 F 05/15/24 19:54 Pulse 60 05/15/24 19:54 Resp 18 05/15/24 19:54 BP 133/75 05/15/24 19:54 Pulse Ox 95 05/15/24 19:54 O2 Del Method Room Air 05/15/24 19:54 BMI result Body Mass Index 34.2 Const: General: cooperative HEENT: Head: Yes normal to inspection Face and sinus: Yes normal facial exam Mouth: Normal oral and palatal mucosa present Teeth and gingiva: dentition normal Eyes: General: appearance normal, both eyes and all related structures Pupils: Equal, round and reactive pupils present Resp: Effort & Inspection: normal respiratory effort Cardio: Rate: regular rate Rhythm: regular rhythm GI: Palpation (GI): Soft to palpation and nontender : General: Yes no CVA tenderness Back/Spine/Pelvis: Back: no CVA tenderness Skin: General skin exam: no rashes or lesions noted Neuro: General: moves all extremities Cranial nerves: Yes Equal, round and reactive pupils present Extrem: Other: venous stasis changes legs General: Yes normal to inspection Psych: Appearance: grossly normal Results Labs 05/14/24 05:19 05/15/24 05:27 Labs: BMP 05/15/24 05:27 Sodium 137 Potassium 3.2 L Chloride 105 Carbon Dioxide 24 BUN 13 Creatinine 0.99 Calcium 8.5 Microbiology Microbiology Results: Microbiology 05/13/24 12:40 Blood - Venous Blood Culture - Preliminary No growth after 48 hours. 05/13/24 12:40 Blood - Venous Blood Culture - Preliminary No growth after 48 hours. 05/13/24 17:21 Abscess Appendiceal Gram Stain - Final 05/13/24 17:21 Abscess Appendiceal Routine Culture - Preliminary No growth to date. Assessment and Plan (1) Abdominal wall abscess at site of surgical wound: Status: Acute (2) CKD stage 3a, GFR 45-59 ml/min: Status: Acute Plan Continue IV Vancomycin. Await cultures. Possible change to po Doxycycline duration remains to be seen.
[2024-05-16 03:15] VITALS: BP 149/72; PULSE 54; RESP 18; TEMP 36.6; O2SAT 95
[2024-05-16 06:50] LABS: Creatinine Clr Calc Pharmacy 81.7; Estimated Glomerular Filt Rate > 60
[2024-05-16 07:37] VITALS: BP 142/83; PULSE 57; RESP 14; TEMP 36.2; O2SAT 97
[2024-05-16] MEDS: Metoprolol Succinate ER 50 MG TAB.ER.24H PO (07:43)
[2024-05-16] MEDS: Folic Acid 1 MG TABLET PO (07:43)
[2024-05-16] MEDS: 0.9 % Sodium Chloride Flush 3 ML SYRINGE IVFLUSH (07:43)
[2024-05-16] MEDS: Magnesium Oxide 400 MG TABLET PO ×2 (07:43→16:24)
[2024-05-16] MEDS: Ammonium Lactate 12 % Lotion 226 GM BOTTLE 1 APPL TOPICAL (07:44)
--- NOTE | 2024-05-16 08:32 | PC.NURSE ---
Pt doing well, wishes to be dc home today. IV ABX for ABD wall Cellulitis and abscess. Dressing CDI on Left ABD.
--- NOTE | 2024-05-16 13:07 | PM.DS ---
DS: Providers Provider Date of Service: 05/16/24 Date of admission: 05/13/24 16:45 Primary care physician: Samantha Gonzales MD Consults: 05/13/24 16:45 Consult to General Surgery Routine Consulting Provider: [facility] Reason for consultation: abcess abd wall 05/13/24 17:09 Consult to Urology Routine Consulting Provider: [facility] Reason for consultation: s/p L partial nephrectomy 12/16 (Juanjose), abd wall abscess ?connecting kidney 05/15/24 10:58 Consult to Infectious Diseases Routine Consulting Provider: [facility] Reason for consultation: abdominal abscess DS: Diagnosis Discharge Diagnosis (1) Abdominal wall abscess at site of surgical wound: Status: Acute (2) CKD stage 3a, GFR 45-59 ml/min: Status: Acute DS: Summary Hospital Course Hospital Course: History and physical as per admitting provider. 63 year old male htn, ckd, ascending aortic dilitation, iron deficiency anemia, hld, chronic venous stasis dermatitis, hx of etoh use disorder, history of DVT no longer on ac, history of left renal cancer s/p partial nephrectomy on December [address] Sow and CKD stage [address] Kennedy presented to the ED earlier today for evaluation of discomfort of the left abdominal wall scar starting on Saturday which broke open early this morning drainage from the area that started this morning after having a severe coughing fit overnight. No fevers, chills. He does report intermittent episodes of diarrhea, most recently this past weekend without recurrence. Reports occasional alcohol use on the weekends only, reports about 2 glasses of wine on the weekends. No cigarette smoking or illicit drug use. No marijuana use. Since arrival, vital signs are stable. There is no leukocytosis. He has a stable normocytic anemia with H/H 8.8/27.7%. Renal function is baseline, electrolyte levels normal except for magnesium of 1.0. Total bilirubin 1.7, direct bilirubin 0.8, AST/ALT within normal limits. CRP 5.58, ESR 71. CT abdomen/pelvis shows extensive subcutaneous edema of the left flank and left abdominal wall with amorphous fluid and phlegmonous change in the left lateral abdominal wall measuring 5.8 x 3.4 x 4.5 cm. There is also left perinephric and periureteric stranding but denies any dysuria, hematuria, increased urinary frequency. Bedside I&D was performed by general surgery in the ED and he was treated empirically with vanco and zosyn and given 4g IV mag. Acute cellulitis and abscess LLQ CT abdomen/pelvis shows extensive subcutaneous edema of the left flank and left abdominal wall with amorphous fluid and phlegmonous change in the left lateral abdominal wall measuring 5.8 x 3.4 x 4.5 cm. There is also left perinephric and periureteric stranding UA negative no leukocytosis, no sepsis bedside I&D performed by general surgery, fluid culture and blood cultures negative s/ p IV vanco (initiated 05/13) ID rec 14 days doxycycline outpatient follow-up with surgeon at [facility] after discharge Chronic hypomagnesemia Denies regular etoh use, no persistent diarrhea, no significant renal disease, no ppi or metformin use, no diuretics Improved with PO and IV replacement mag oxide 400mg BID chronic thrombocytopenia likely related to alcohol use, underlying liver disease Alcohol use disorder Discussed the importance of cessation anemia of chronic disease H/H appears at baseline Above transfusion threshold HTN metoprolol Hyperbilirubinemia likely r/t chronic liver disease Bili trending down, no abdominal pain Chronic venous stasis outpt follow up, ammonium lactate Morbid obesity BMI 34.2 Weight loss encouraged Time Attestation Discharge Coordination Time (in mins): 32 Quality: Safe Use of Opioids Does Pt have an Active Cancer Diagnosis on the Problem List?: No Quality: Stroke Does the patient have a stroke diagnosis?: No Physical Exam Vital Signs: Vital Signs: Last Vital Signs Temp 97.2 F 05/16/24 07:37 Pulse 57 05/16/24 07:37 Resp 14 05/16/24 07:37 BP 142/83 H 05/16/24 07:37 Pulse Ox 97 05/16/24 07:37 O2 Del Method Room Air 05/16/24 09:06 O2 Flow Rate 95 05/16/24 09:06 BMI result Body Mass Index 34.2 Appearing in no acute distress head is normocephalic atraumatic eyes pupils are PERRLA sclera is anicteric mouth throat mucous membranes are intact and moist neck is supple no lymphadenopathy, no JVD noted lung sounds are clear to auscultation heart regular rate rhythm, clear S1, S2 positive bowel sounds, abdomen is soft, nontender neuro patient is alert x3, no focal deficits DS: Data Data Completed and Pending Completed studies during hospitalization [Text1]: Procedures Detoxification Services for Substance Abuse Treatment (10/30/22) Excision of Descending Colon, Via Natural or Artificial Opening Endoscopic, Diagnostic (09/25/23) Excision of Duodenum, Via Natural or Artificial Opening Endoscopic, Diagnostic (09/25/23) Excision of Stomach, Pylorus, Via Natural or Artificial Opening Endoscopic, Diagnostic (09/25/23) Transfusion of Nonautologous Red Blood Cells into Peripheral Vein, Percutaneous Approach (09/25/23) Labs on day of discharge: Laboratory Results - last 24 hr 05/15/24 05/16/24 21:04 05:42 Hold Purple Top SEE NOTE Creatinine 1.05 Estim Creat Clear Calc 81.7 Estimated GFR > 60 Hold Yellow Top See Note Random Vancomycin 11.0 L Preliminary micro results at discharge 05/13/24 12:40 Blood Culture - Preliminary Blood - Venous No growth after 48 hours. 05/13/24 12:40 Blood Culture - Preliminary Blood - Venous No growth after 48 hours. Discharge Plan Discharge Anticipated Discharge Date/Time: 05/16/24 13:03 Patient Disposition: Home Health Service Discharge Diagnosis: Cellulitis Left lower quadrant abdominal abscess Chronic hypomagnesemia Chronic thrombocytopenia Alcohol use disorder Anemia of chronic disease Referrals: Samantha Gonzales MD [Primary Care Provider] - 1 Week Discharge Medications: New doxycycline hyclate 100 mg capsule 100 mg PO BID Qty: 28 0RF Continued metoprolol succinate 50 mg tablet extended release 24 hr 50 mg PO DAILY magnesium oxide 400 mg (241.3 mg magnesium) tablet 400 mg PO DAILY Qty: 10 0RF rosuvastatin 5 mg Tablet 5 mg PO BEDTIME folic acid 1 mg tablet 1 mg PO DAILY Qty: 30 0RF cyanocobalamin (vitamin B-12) 1,000 mcg/mL solution 1,000 mcg IM Q30D Discharge Orders: Discharge Order (Routine); Ordered 05/16/24 Ordered By: Jimena Stern Diet: Advance to usual diet Activity on Discharge: As tolerated Stand Alone Forms: Patient Portal Discharge page Print Language: Iraqi Care Plan Goals: Follow-up with your surgeon at [facility] Change dressing to left abdominal quadrant for any staining or discharge, may use gauze and tape Health Concerns: Cellulitis Left lower quadrant abdominal abscess Chronic hypomagnesemia Chronic thrombocytopenia Alcohol use disorder Anemia of chronic disease Plan of Treatment: Follow-up with primary care provider as needed Take all medications as prescribed Assessment: See discharge summary
[2024-05-16 15:28] VITALS: BP 121/69; PULSE 58; RESP 18; TEMP 37; O2SAT 97
--- NOTE | 2024-05-16 16:21 | MHC.CM.PN ---
[facility] asked bossman for a f2f
== END 2024-05-16 17:25 | disposition home health service (06) | DRG 711 ==
LOC: HO.ED 16:09 → HO.EDOVER 16:52 → HO.S3 05-14 12:12 → HO.EDOVER 05-14 12:49 → HO.S3 05-14 16:09
PROVIDERS: Physician Assistant; Physician Assistant Medical; Admitting Provider Physician Assistant; Emergency Provider Emergency Medicine; PCP Family Medicine; Visit Provider Nurse Practitioner Acute Care
DX: T81.41XA Infection following a procedure, superficial incisional surgical site, initial encounter (principal); D69.59 Other secondary thrombocytopenia; C64.2 Malignant neoplasm of left kidney, except renal pelvis; D63.1 Anemia in chronic kidney disease; L02.211 Cutaneous abscess of abdominal wall; K70.0 Alcoholic fatty liver; E66.01 Morbid (severe) obesity due to excess calories; Y83.8 Other surgical procedures as the cause of abnormal reaction of the patient, or of later complication, without mention of misadventure at the time of the procedure; I87.2 Venous insufficiency (chronic) (peripheral); L03.311 Cellulitis of abdominal wall; N18.31 Chronic kidney disease, stage 3a; E83.42 Hypomagnesemia; F10.90 Alcohol use, unspecified, uncomplicated; Z68.34 Body mass index [BMI] 34.0-34.9, adult; G47.33 Obstructive sleep apnea (adult) (pediatric); I12.9 Hypertensive chronic kidney disease with stage 1 through stage 4 chronic kidney disease, or unspecified chronic kidney disease; Z90.5 Acquired absence of kidney; Z79.899 Other long term (current) drug therapy
CPT/HCPCS: 36415; 74176; 80048; 80076; 80202; 81003; 82565; 83605; 83690; 83735; 83880; 85025; 85610; 85652; 86140; 87040; 87070; 87205; 99285; J1650; J2543; J3370; J3475

== ENCOUNTER → 2024-05-13 16:45 | Outpatient (BNV) | payer MEDICAID, SELFPAY | PROVIDERS: Admitting Provider Physician Assistant; Emergency Provider Emergency Medicine; PCP Family Medicine; Visit Provider Internal Medicine | DX: T81.49XA Infection following a procedure, other surgical site, initial encounter (principal); N18.31 Chronic kidney disease, stage 3a | CPT/HCPCS: 99222 ==

== ENCOUNTER → 2024-05-13 16:45 | Outpatient (BNV) | payer MEDICAID, SELFPAY | PROVIDERS: Admitting Provider Physician Assistant; Emergency Provider Emergency Medicine; PCP Family Medicine; Visit Provider Urology | DX: C64.9 Malignant neoplasm of unspecified kidney, except renal pelvis (principal); T81.49XA Infection following a procedure, other surgical site, initial encounter | CPT/HCPCS: 99222 ==

== ENCOUNTER → 2024-05-13 16:45 | Outpatient (BNV) | payer MEDICAID, SELFPAY | PROVIDERS: Admitting Provider Physician Assistant; Emergency Provider Emergency Medicine; PCP Family Medicine; Visit Provider Surgery | DX: T81.49XA Infection following a procedure, other surgical site, initial encounter (principal) | CPT/HCPCS: 10140; 99024; 99222; 99499 ==

== ENCOUNTER → 2024-05-13 16:45 | Outpatient (BNV) | payer MEDICAID, SELFPAY | PROVIDERS: Admitting Provider Physician Assistant; Emergency Provider Emergency Medicine; PCP Family Medicine; Visit Provider Physician Assistant Medical | DX: T81.49XA Infection following a procedure, other surgical site, initial encounter (principal); E83.42 Hypomagnesemia | CPT/HCPCS: 99223; 99233; 99239 ==

== ENCOUNTER 2024-07-02 11:20 | Outpatient (REF) | payer MEDICAID, SELFPAY ==
[2024-07-02 13:43] LABS: Hematocrit 31.9 % (42.0-52.0); Hemoglobin 10.2 g/dl (14.0-18.0); Mean Corpuscular Hemoglobin 29.2 pg (27.0-33.0); Mean Corpuscular Volume 91.4 fL (80.0-98.0); Mean Platelet Volume 9.5 fL (9.4-12.4); Platelet Count 117 X10*3/uL (160-400); Red Blood Count 3.49 X10*6/uL (4.60-5.80); Red Cell Distribution Width 17.7 % (11.0-16.0); White Blood Count 8.2 X10*3/uL (4.8-10.8)
[2024-07-02 14:03] LABS: Cholesterol 150 mg/dL (<200); HDL Cholesterol 66 mg/dL (>40); LDL Cholesterol Calculated 68 mg/dL (<100); Triglycerides 83 mg/dL (<150)
[2024-07-02 14:23] LABS: Estimated Average Glucose 74 mg/dL; Hemoglobin A1C 56.7691 umol/L; Hemoglobin A1c % 4.2 % (<6.0); Total Hemoglobin (HGBA1C) 2495.9989 umol/L
[2024-07-02 14:26] LABS: TSH reflex Free T4 3.48 uIU/mL (0.32-4.0)
[2024-07-02 16:01] LABS: Alanine Aminotransferase 11 U/L (0-40); Albumin Level 3.9 g/dL (3.5-5.0); Alkaline Phosphatase 124 U/L (39-117); Anion Gap 13 (12-20); Aspartate Amino Transferase 40 U/L (5-37); Bilirubin Total 2.2 mg/dL (0.0-1.0); Blood Urea Nitrogen 13 mg/dL (9-16); Calcium 8.7 mg/dL (8.4-10.2); Carbon Dioxide 24 mmol/L (22-29); Chloride 106 mmol/L (96-108); Estimated Glomerular Filt Rate > 60; Glucose Random 91 mg/dL (60-115); Potassium 3.6 mmol/L (3.3-5.1); Sodium 139 mmol/L (135-145); Total Protein 7.5 g/dL (6.5-8.0)
[2024-07-02 16:25] LABS: Magnesium 1.3 mg/dL (1.6-2.6)
[2024-07-02 16:53] LABS: Reflex LDLD? No
== END 2024-07-02 11:21 | disposition home or self-care (01) ==
LOC: HO.HHCL 11:20
PROVIDERS: Internal Medicine Nephrology; Nurse Practitioner Acute Care; Visit Provider Family Medicine
DX: I10 Essential (primary) hypertension (principal); D64.9 Anemia, unspecified; R11.2 Nausea with vomiting, unspecified; R19.7 Diarrhea, unspecified
CPT/HCPCS: 36415; 80053; 80061; 83036; 83735; 84443; 85027

== ENCOUNTER 2024-07-22 13:35 | Outpatient (REF) | payer MEDICAID, SELFPAY ==
[2024-07-22 13:58] LABS: MANUAL DIFF FLAG NO
[2024-07-22 14:57] LABS: Appearance Urine Clear; Color Urine Dark Yellow; Glucose Urine UA Negative (Negative); Leukocyte Esterase Urine Negative (Negative); Nitrite Urine Negative (Negative); PH 5.5 (5.0-9.0); Specific Gravity - Urine 1.015 (1.005-1.025); UMIC TRIGGER UA YES; Urine Blood Negative (Negative); Urine Ketones Trace mg/dL (Negative); Urine Protein 30 (1+) mg/dL (Neg-Trace)
[2024-07-22 14:59] LABS: Bacteria Urine None Seen (None Seen); Hyaline Casts Urine 0-2 /LPF (0-2); RBC Urine 0-2 /HPF (0-2); Squamous Epithelial Cell Urine 0-2 /HPF (0-2); WBC Urine 0-5 /HPF (0-5)
[2024-07-22 15:29] LABS: Basophils Absolute Auto 0.1 X10*3/uL (0.0-0.2); Basophils Percent Auto 1.2 % (0-2); Eosinophils Absolute Auto 0.2 X10*3/uL (0.0-0.4); Eosinophils Percent Auto 3.6 % (0-4); Hematocrit 32.5 % (42.0-52.0); Hemoglobin 10.7 g/dl (14.0-18.0); Imm Gran Abs Auto 0.01 X10*3/uL (0.00-0.03); Imm Gran Pct Auto 0.1 % (0.0-0.4); Lymphocytes Absolute Auto 2.3 X10*3/uL (1.2-4.9); Lymphocytes Percent Auto 33.8 % (20-40); Mean Corpuscular HGB Conc 32.9 g/dl (31.0-36.0); Mean Corpuscular Hemoglobin 29.9 pg (27.0-33.0); Mean Corpuscular Volume 90.8 fL (80.0-98.0); Mean Platelet Volume 9.9 fL (9.4-12.4); Monocytes Absolute Auto 0.5 X10*3/uL (0.1-1.2); Monocytes Percent Auto 7.8 % (2-11); Neutrophils Absolute Auto 3.6 x10*3/uL (2.0-8.3); Neutrophils Percent Auto 53.5 % (45-73); Platelet Count 103 X10*3/uL (160-400); Red Blood Count 3.58 X10*6/uL (4.60-5.80); Red Cell Distribution Width 16.6 % (11.0-16.0); White Blood Count 6.7 X10*3/uL (4.8-10.8)
[2024-07-22 15:43] LABS: Anion Gap 17 (12-20); Blood Urea Nitrogen 19 mg/dL (9-16); Carbon Dioxide 20 mmol/L (22-29); Chloride 104 mmol/L (96-108); Estimated Glomerular Filt Rate 53; Glucose Random 88 mg/dL (60-115); Potassium 3.7 mmol/L (3.3-5.1); Sodium 137 mmol/L (135-145)
== END 2024-07-22 13:36 | disposition home or self-care (01) ==
LOC: HO.LAB 13:35
PROVIDERS: PCP Family Medicine; Referring Provider Urology; Visit Provider Internal Medicine Nephrology
DX: C64.2 Malignant neoplasm of left kidney, except renal pelvis (principal); N39.0 Urinary tract infection, site not specified
CPT/HCPCS: 36415; 80048; 81001; 85025; 87086

== ENCOUNTER 2024-07-29 10:32 | Outpatient (AMB) | payer MEDICAID, SELFPAY ==
--- NOTE | 2024-07-29 11:12 | HO.NEPHOV ---
Vital Signs 07/29/24 11:15 Weight 223 lb 6 oz BP 140/90 H Blood Pressure Location Rt brachial Position Sitting Intake Visit Reasons: CKD/ Conf Armhole Sewer Required: No Accompanied by: Mother Allergies azithromycin [AZITHROMYCIN] Allergy (Severe, Verified 07/29/24 11:15) FACIAL SWELLING hydrochlorothiazide [HCTZ] Allergy (Severe, Verified 07/29/24 11:15) Facial Swelling HPI Comments Details: Geoffrey was seen in follow-up of his CKD and hypertension. He has a left renal mass (Dr. Sow)underwent partial left nephrectomy. He has history of rhabdomyolysis and had POLLY 5 years ago. He was on dialysis at that time and had come off dialysis on 12/20/2017. He does not have any hematuria, night sweats, weight loss, fever. His blood pressure has been at goal. He is off diuretics. He avoids nonsteroidal anti-inflammatories. His renal functions are close to baseline. He is on ARB. [facility] Medical History (Updated 07/29/24 @ 11:21 by Tony Kennedy MD) CKD stage 3a, GFR 45-59 ml/min Renal cell carcinoma Renal mass Abdominal wall abscess at site of surgical wound HTN (hypertension) Colitis Alcohol use disorder Hyperlipidemia Ascending aortic aneurysm Alcoholic steatohepatitis Seborrheic dermatitis DEBORAH (obstructive sleep apnea) History of rhabdomyolysis Hx of lower gastrointestinal bleeding Hx of sepsis History of DVT of lower extremity Chronic ulcer of leg Chronic venous stasis Anemia Anemia Surgical History Hx of colonoscopy Family History Mother Dementia Maternal Grandmother Dementia Social History Household Members: Family Housing: House Housing Other:: 4 stairs to get into house. Pt lives in basement Do you presently have visiting nurse or other home services: No Alcohol intake: current Alcohol intake frequency: other Alcohol type: hard liquor Comment: pt refused socks Patient Tobacco Use Status: Never used Tobacco Advance Directives Date on File: 04/13/22 service: No Current occupational status: disabled Review of Systems Const All systems reviewed & are unremarkable except as noted in HPI and below Physical Exam Vital Signs: Last Vital Signs BP 140/90 H 07/29/24 11:15 Const General: comfortable and no acute distress Orientation/consciousness: patient oriented x3 HEENT Head: Yes normocephalic Mouth: Normal oral and palatal mucosa present Eyes EOM: EOMs intact bilaterally Neck Neck: Yes supple Resp Auscultation: clear to auscultation bilaterally Cardio Jugular venous distension: no JVD Rate: regular rate GI Palpation (GI): Soft to palpation Auscultation: normal bowel sounds General: Yes no CVA tenderness Back/Spine/Pelvis Back: no CVA tenderness Skin General skin exam: no rashes or lesions noted Neuro General: patient oriented x3 and moves all extremities Extrem General: Yes no pedal edema Results Reviewed Nephrology Results: Hgb 10.7 g/dl (14.0-18.0) L 07/22/24 WBC 6.7 X10*3/uL (4.8-10.8) 07/22/24 Plt Count 103 X10*3/uL (160-400) L 07/22/24 Sodium 137 mmol/L (135-145) 07/22/24 Potassium 3.7 mmol/L (3.3-5.1) 07/22/24 Chloride 104 mmol/L (96-108) 07/22/24 Carbon Dioxide 20 mmol/L (22-29) L 07/22/24 BUN 19 mg/dL (9-16) H 07/22/24 Creatinine 1.35 mg/dL (0.5-1.4) 07/22/24 Calcium 9.0 mg/dL (8.4-10.2) 07/22/24 Urine Protein 30 (1+) mg/dL (Neg-Trace) H 07/22/24 Assessment & Plan Assessment & Plan (1) HTN (hypertension): Code(s): I10 - Essential (primary) hypertension Category: Medical Qualifiers: Hypertension type: primary hypertension Qualified Code(s): I10 - Essential (primary) hypertension (2) CKD stage 3a, GFR 45-59 ml/min: Code(s): N18.31 - Chronic kidney disease, stage 3a Category: Medical Plan Geoffrey has history of POLLY needing dialysis 6 years ago . His renal functions became worse since left partial left nephrectomy but has settled to baseline after holding losartan, spironolactone and torsemide. His low dose ARB has been restarted which he is tolerating very well. He should avoid nonsteroidal anti-inflammatories. He should maintain good hydration. Once his current issues are resolved he he needs to be referred to weight management program. He likely will benefit from gastric sleeve surgery. I did not make any other medication changes today but plan to add [id number] at next visit . Blood work ordered for follow-up. I answered all his questions and concerns Orders: Orders Creatinine 3 Months I10 - Essential (primary) hypertension, N18.31 - Chronic kidney disease, stage 3a Blood Urea Nitrogen 3 Months I10 - Essential (primary) hypertension, N18.31 - Chronic kidney disease, stage 3a Electrolytes 3 Months I10 - Essential (primary) hypertension, N18.31 - Chronic kidney disease, stage 3a Protein Creatinine Ratio, Ur 3 Months I10 - Essential (primary) hypertension, N18.31 - Chronic kidney disease, stage 3a Coding Level of Care Code Est Pt Level 4 (36848) Diagnoses Primary hypertension I10 Hypertension type: primary hypertension CKD stage 3a, GFR 45-59 ml/min N18.31
[2024-07-29 11:15] VITALS: BP 140/90
== END 2024-07-29 11:27 | disposition home or self-care (01) ==
PROVIDERS: PCP Family Medicine; Visit Provider Internal Medicine Nephrology
DX: I12.9 Hypertensive chronic kidney disease with stage 1 through stage 4 chronic kidney disease, or unspecified chronic kidney disease (principal); N18.31 Chronic kidney disease, stage 3a
CPT/HCPCS: 99214

== ENCOUNTER → 2024-07-29 10:32 | Outpatient (BNVA) | payer MEDICAID, SELFPAY | PROVIDERS: PCP Family Medicine; Visit Provider Internal Medicine Nephrology | DX: I12.9 Hypertensive chronic kidney disease with stage 1 through stage 4 chronic kidney disease, or unspecified chronic kidney disease (principal); N18.31 Chronic kidney disease, stage 3a | CPT/HCPCS: 99212 ==

== ENCOUNTER 2024-08-17 16:16 | Emergency (ER) | payer MEDICAID, SELFPAY ==
--- NOTE | ~2024-08-17 | XR_ITS ---
CLINICAL HISTORY: wheezing 1 view chest x-ray Comparison: CR/SR - XR CHEST 1V - 09/25/2023 05:51 PM EST Findings: No consolidation or effusion. Normal size heart. No acute fracture. IMPRESSION: 1. No acute findings. This document has been electronically signed by: Eddy Recinos MD on 08/17/2024 19:05:52
--- NOTE | ~2024-08-17 | CT_ITS ---
CLINICAL HISTORY: back pain CT lumbar spine without contrast Comparison: None Findings: Normal vertebral body alignment. No evidence of acute fracture. Minimal anterior wedging of the L2 vertebral body which appears chronic in nature. Mild degenerative changes of the lumbar spine. Osseous spurring of the left SI joint. Visualized abdominal contents unremarkable. IMPRESSION: No acute findings. This document has been electronically signed by: Eddy Recinos MD on 08/17/2024 19:21:22
--- NOTE | ~2024-08-17 | CT_ITS ---
CLINICAL HISTORY: abd pain CT abdomen and pelvis with contrast Comparison: CT/KS/SR - CT ABDOMEN PELVIS WO IV CON - 05/13/2024 11:52 AM EDT Findings: The lung bases are clear. Bilateral gynecomastia. Fatty infiltration of the liver. Liver is enlarged. Gallbladder, adrenal glands, pancreas and spleen are unremarkable. 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 Low-attenuation cystic structure in the superior pole of the left kidney measuring 2 cm, possibly simple cyst. Previously noted hyperdense lesion in the upper left kidney not well appreciated. No perinephric fluid collections or abscess. Stranding consistent with scarring in the left perirenal area. Right kidney is unremarkable. No hydronephrosis of either kidney. No ureteral stones. Adrenal glands, pancreas and IVC are unremarkable. No bowel obstruction, pneumoperitoneum, or pneumatosis. There has been interval resolution of left abdominal wall fluid collection previously seen. There is haziness within the mesenteric root as well as the retroperitoneum, similar to prior. Stranding is most prominent in the region of the duodenum. There is a small duodenal diverticulum near the ampulla. Urinary bladder is unremarkable. Prostate gland is normal. Trace free fluid in the abdomen. No acute fracture. IMPRESSION: Retroperitoneal stranding most prominently around the duodenum of uncertain clinical significance. No duodenal wall thickening. This stranding was present to a lesser degree on prior study. Differential includes incidental finding versus duodenitis. Trace ascites. Hepatomegaly with diffuse fatty infiltration. Previous partial left nephrectomy. 2 cm cystic structure in the superior pole of the left kidney, likely cyst. Interval resolution of the left abdominal wall fluid collection. This document has been electronically signed by: Eddy Recinos MD on 08/17/2024 20:44:13
--- NOTE | 2024-08-17 16:39 | ECG_ITS ---
Test Reason : SOB Blood Pressure : / mmHG Vent. Rate : 095 BPM Atrial Rate : 095 BPM P-R Int : 212 ms QRS Dur : 116 ms QT Int : 368 ms P-R-T Axes : 044 -60 097 degrees QTc Int : 462 ms Sinus rhythm with 1st degree A-V block Left anterior fascicular block Cannot rule out Anterior infarct , age undetermined Abnormal ECG When compared with ECG of 25-SEP-2023 08:00, Nonspecific T wave abnormality no longer evident in Inferior leads T wave inversion less evident in Anterior leads Nonspecific T wave abnormality, worse in Lateral leads Referred By: Vito Marquez Electronically Signed By:EDITH MARROQUIN MD
[2024-08-17 16:51] VITALS: BP 178/116; PULSE 121; O2SAT 97; BMI 34.8
[2024-08-17 17:45] VITALS: BP 161/89; PULSE 96; RESP 16; TEMP 37.3; O2SAT 98
[2024-08-17 18:21] LABS: MANUAL DIFF FLAG NO
[2024-08-17 18:23] LABS: Basophils Absolute Auto 0.1 X10*3/uL (0.0-0.2); Basophils Percent Auto 0.8 % (0-2); Eosinophils Percent Auto 0.6 % (0-4); Hematocrit 32.9 % (42.0-52.0); Imm Gran Abs Auto 0.02 X10*3/uL (0.00-0.03); Imm Gran Pct Auto 0.3 % (0.0-0.4); Lymphocytes Absolute Auto 0.9 X10*3/uL (1.2-4.9); Lymphocytes Percent Auto 14.6 % (20-40); Mean Corpuscular HGB Conc 33.4 g/dl (31.0-36.0); Mean Corpuscular Hemoglobin 30.4 pg (27.0-33.0); Mean Corpuscular Volume 90.9 fL (80.0-98.0); Mean Platelet Volume 9.1 fL (9.4-12.4); Monocytes Absolute Auto 0.4 X10*3/uL (0.1-1.2); Monocytes Percent Auto 6.4 % (2-11); Neutrophils Absolute Auto 4.9 x10*3/uL (2.0-8.3); Neutrophils Percent Auto 77.3 % (45-73); Red Blood Count 3.62 X10*6/uL (4.60-5.80); Red Cell Distribution Width 16.3 % (11.0-16.0); White Blood Count 6.4 X10*3/uL (4.8-10.8)
[2024-08-17 18:27] LABS: VBG Base Excess -3.9 mmol/L; VBG HCO3 20 mmol/L (22-26); VBG pCO2 35 mmHg; VBG pH 7.37 (7.32-7.43); VBG pO2 40 mmHg
[2024-08-17 18:30] LABS: Venous Blood Gas Refer to POC result
[2024-08-17 18:39] LABS: Anion Gap 24 (12-20); Blood Urea Nitrogen 18 mg/dL (9-16); Carbon Dioxide 19 mmol/L (22-29); Chloride 104 mmol/L (96-108); Creatinine Clr Calc Pharmacy 79.1; Estimated Glomerular Filt Rate > 60; Glucose Random 90 mg/dL (60-115); Potassium 4.8 mmol/L (3.3-5.1); Sodium 142 mmol/L (135-145)
[2024-08-17 18:42] LABS: Platelet Count 49 X10*3/uL (160-400)
--- NOTE | 2024-08-17 18:43 | ED_ITS ---
HPI - General Adult General Chief complaint: General Medical Stated complaint: wheezing vomit nausea, hypertensiven Time Seen by Provider: 08/17/24 16:39 Source: patient History of Present Illness ED Provider: Jimmy REGALADO narrative: 64-year-old male with past medical history of alcohol abuse presenting for lower extremity weakness and incontinence. Patient states that he has had 1 day of bilateral lower extremity weakness and he has been incontinent of stool and urine. He states that he is unable to tell when he has to go to the bathroom. He has been stuck in a [place] as he has not been able to stand up. He also endorses abdominal pain and lower back discomfort. He denies acute trauma, chest pain, shortness of breath. Related Data Home Medications ?Medication ?Instructions ?Recorded ?Confirmed metoprolol succinate 50 mg 50 mg PO DAILY 10/30/22 05/13/24 tablet,extended release 24 hr rosuvastatin 5 mg tablet 5 mg PO BEDTIME 08/26/23 05/13/24 cyanocobalamin (vitamin B-12) 1,000 mcg IM Q30D 02/05/24 05/13/24 1,000 mcg/mL injection solution allopurinol 300 mg tablet 300 mg PO DAILY 07/29/24 ascorbate calcium (vitamin C) 500 1 g PO DAILY 07/29/24 mg tablet cholecalciferol (vitamin D3) 50 50 mcg PO DAILY 07/29/24 mcg (2,000 unit) capsule ferrous fumarate 325 mg (106 mg 650 mg PO DAILY 07/29/24 iron) tablet losartan 25 mg tablet 12.5 mg PO DAILY 07/29/24 spironolactone 25 mg tablet 25 mg PO DAILY 07/29/24 Previous Rx's ?Medication ?Instructions ?Recorded magnesium oxide 400 mg (241.3 mg 400 mg PO DAILY #10 tabs 04/25/23 magnesium) tablet folic acid 1 mg tablet 1 mg PO DAILY #30 tabs 10/01/23 Allergies Allergy/AdvReac Type Severity Reaction Status Date / Time azithromycin [AZITHROMYCIN] Allergy Severe FACIAL Verified 08/17/24 16:52 SWELLING hydrochlorothiazide [HCTZ] Allergy Severe Facial Verified 08/17/24 16:52 Swelling Review of Systems 2 Review of Systems: Patient endorses incontinence and bilateral lower extremity weakness Yes all other systems are reviewed and are negative [facility] Past Medical History Attestation statement: The following information was validated with the patient. [facility] Narrative: History of Alcohol abuse Source: old records reviewed Medical History CKD stage 3a, GFR 45-59 ml/min Renal cell carcinoma Renal mass Abdominal wall abscess at site of surgical wound HTN (hypertension) Colitis Alcohol use disorder Hyperlipidemia Ascending aortic aneurysm Alcoholic steatohepatitis Seborrheic dermatitis DEBORAH (obstructive sleep apnea) History of rhabdomyolysis Hx of lower gastrointestinal bleeding Hx of sepsis History of DVT of lower extremity Chronic ulcer of leg Chronic venous stasis Anemia Anemia Surgical History Hx of colonoscopy Family History Family History Mother Dementia Maternal Grandmother Dementia Social History Social History Household Members: Family Housing: House Housing Other:: 4 stairs to get into house. Pt lives in basement Do you presently have visiting nurse or other home services: No Alcohol intake: current Alcohol intake frequency: a few times a week Alcohol type: hard liquor Comment: pt refused socks Patient Tobacco Use Status: Never used Tobacco Smoked in Last 30 Days: No Use of substances other than those prescribed or required for medical reasons: No Advance Directives: Yes Advance Directives on File: Yes Advance Directives Date on File: 04/13/22 Do you have a plan to hurt others: No Plan service: No Current occupational status: disabled Physical Exam ED Vital Signs: Vital Signs - 24 hr 08/17/24 17:45 08/17/24 19:25 Temperature 99.2 F 98.6 F Pulse Rate 96 110 H Respiratory Rate 16 18 Blood Pressure 161/89 H 144/91 H Pulse Oximetry 98 97 Oxygen Delivery Method Room Air Room Air BMI result Body Mass Index 34.8 Well-appearing male although disheveled; A&O x4 Lungs clear to auscultation anteriorly with good aeration Normal S1-S2 tachycardic Abdomen is soft, mildly distended with mild diffuse tenderness to palpation Decreased strength and sensation to bilateral lower extremities Decreased rectal tone Medications Administered Discontinued Medications Generic Name Dose Route Start Last Admin Trade Name Freq PRN Reason Stop Dose Admin Dexamethasone Sodium Phosphate 10 mg 08/17/24 18:33 08/17/24 19:20 Dexamethasone Sod Phosphate 10 Mg/Ml Vial IVPUSH 08/17/24 18:34 10 mg ONCE ONE Administration Diazepam 5 mg 08/17/24 18:46 08/17/24 19:20 Diazepam 10 Mg/2 Ml Cartridge IVPUSH 08/17/24 18:47 5 mg STAT STA Administration Sodium Chloride 500 mls @ 500 mls/hr 08/17/24 19:00 08/17/24 19:20 Ns IV 08/17/24 19:59 500 mls/hr .Q1H PROMISE Administration Iohexol 100 ml 08/17/24 19:54 08/17/24 19:54 Iohexol 350 Mg/Ml 100 Ml Infus..Btl IV 08/17/24 19:55 100 ml ONCE ONE Administration Medical Decision Making Medical Decision Making MDM Narrative: 64-year-old male presenting for lower extremity weakness and incontinence. I am concerned for cord compression. I am also considering diverticulitis, gastroenteritis -labs and imaging studies ordered -dexamethasone ordered -I received a text message from certified dialysis technician stating there may be difficulty getting patient is MRI tonight -I consulted [facility] for transfer and patient was accepted patient for ED to ED transfer by Dr. Francois -diazepam ordered as patient is hypertensive, tachycardic and tremulous Patient will be transferred to [facility] for MRI imaging to rule out cord compression Lab Data 08/17/24 18:13 08/17/24 18:13 Labs: Lab Results 08/17/24 08/17/24 08/17/24 Range/Units 18:13 18:14 18:22 WBC 6.4 (4.8-10.8) X10*3/uL RBC 3.62 L (4.60-5.80) X10*6/uL Hgb 11.0 L (14.0-18.0) g/dl Hct 32.9 L (42.0-52.0) % MCV 90.9 (80.0-98.0) fL MCH 30.4 (27.0-33.0) pg MCHC 33.4 (31.0-36.0) g/dl RDW 16.3 H (11.0-16.0) % Plt Count 49 L D (160-400) X10*3/uL MPV 9.1 L (9.4-12.4) fL Immature Gran % (Auto) 0.3 (0.0-0.4) % Neut % (Auto) 77.3 H (45-73) % Lymph % (Auto) 14.6 L (20-40) % [place] % (Auto) 6.4 (2-11) % Eos % (Auto) 0.6 (0-4) % Baso % (Auto) 0.8 (0-2) % Lymph # (Auto) 0.9 L (1.2-4.9) X10*3/uL [place] # (Auto) 0.4 (0.1-1.2) X10*3/uL Eos # (Auto) 0.0 (0.0-0.4) X10*3/uL Baso # (Auto) 0.1 (0.0-0.2) X10*3/uL Abs Immat Gran (auto) 0.02 (0.00-0.03) X10*3/uL Absolute Neuts (auto) 4.9 (2.0-8.3) x10*3/uL Absolute Nucleated RBC 0.000 (0.0-0.012) X10*3/uL Nucleated RBC % (auto) 0.0 (0.0-0.2) /100WBC VBG pH 7.37 (7.32-7.43) VBG pCO2 35 mmHg VBG pO2 40 mmHg VBG HCO3 20 L (22-26) mmol/L VBG O2 Saturation 59.0 % VBG Base Excess -3.9 mmol/L Sodium 142 (135-145) mmol/L Potassium 4.8 D (3.3-5.1) mmol/L Chloride 104 (96-108) mmol/L Carbon Dioxide 19 L (22-29) mmol/L Anion Gap 24 H (12-20) BUN 18 H (9-16) mg/dL Creatinine 1.08 (0.5-1.4) mg/dL Estim Creat Clear Calc 79.1 Estimated GFR > 60 Random Glucose 90 (60-115) mg/dL Lactic Acid 2.5 H* (0.5-2.0) mmol/L Calcium 9.0 (8.4-10.2) mg/dL Troponin I High Sens 4.3 D (<3.5-35.0) ng/L Ethyl Alcohol mg/dL Influenza Type A (PCR) NEGATIVE (Negative) Influenza Type B (PCR) NEGATIVE (Negative) RSV RNA Qual (PCR) NEGATIVE (Negative) SARS-CoV-2 RNA (RT-PCR) NEGATIVE (Negative) 08/17/24 Range/Units 18:29 WBC (4.8-10.8) X10*3/uL RBC (4.60-5.80) X10*6/uL Hgb (14.0-18.0) g/dl Hct (42.0-52.0) % MCV (80.0-98.0) fL MCH (27.0-33.0) pg MCHC (31.0-36.0) g/dl RDW (11.0-16.0) % Plt Count (160-400) X10*3/uL MPV (9.4-12.4) fL Immature Gran % (Auto) (0.0-0.4) % Neut % (Auto) (45-73) % Lymph % (Auto) (20-40) % [place] % (Auto) (2-11) % Eos % (Auto) (0-4) % Baso % (Auto) (0-2) % Lymph # (Auto) (1.2-4.9) X10*3/uL [place] # (Auto) (0.1-1.2) X10*3/uL Eos # (Auto) (0.0-0.4) X10*3/uL Baso # (Auto) (0.0-0.2) X10*3/uL Abs Immat Gran (auto) (0.00-0.03) X10*3/uL Absolute Neuts (auto) (2.0-8.3) x10*3/uL Absolute Nucleated RBC (0.0-0.012) X10*3/uL Nucleated RBC % (auto) (0.0-0.2) /100WBC VBG pH (7.32-7.43) VBG pCO2 mmHg VBG pO2 mmHg VBG HCO3 (22-26) mmol/L VBG O2 Saturation % VBG Base Excess mmol/L Sodium (135-145) mmol/L Potassium (3.3-5.1) mmol/L Chloride (96-108) mmol/L Carbon Dioxide (22-29) mmol/L Anion Gap (12-20) BUN (9-16) mg/dL Creatinine (0.5-1.4) mg/dL Estim Creat Clear Calc Estimated GFR Random Glucose (60-115) mg/dL Lactic Acid (0.5-2.0) mmol/L Calcium (8.4-10.2) mg/dL Troponin I High Sens (<3.5-35.0) ng/L Ethyl Alcohol < 10 mg/dL Influenza Type A (PCR) (Negative) Influenza Type B (PCR) (Negative) RSV RNA Qual (PCR) (Negative) SARS-CoV-2 RNA (RT-PCR) (Negative) Discharge Plan Discharge Clinical Impression: Bilateral leg weakness Incontinence Qualifiers: Incontinence type: fecal Fecal incontinence type: unspecified Qualified Code(s): R15.9 - Full incontinence of feces Patient Disposition: [facility] Transfer Details: Transfer to [facility]. Additional Instructions: Rule out cord compression Prescriptions: No Action metoprolol succinate 50 mg tablet extended release 24 hr 50 mg PO DAILY magnesium oxide 400 mg (241.3 mg magnesium) tablet 400 mg PO DAILY Qty: 10 0RF rosuvastatin 5 mg Tablet 5 mg PO BEDTIME folic acid 1 mg tablet 1 mg PO DAILY Qty: 30 0RF cyanocobalamin (vitamin B-12) 1,000 mcg/mL solution 1,000 mcg IM Q30D allopurinol 300 mg tablet 300 mg PO DAILY spironolactone 25 mg tablet 25 mg PO DAILY ascorbate calcium (vitamin C) 500 mg tablet 1 g PO DAILY ferrous fumarate 325 mg (106 mg iron) tablet 650 mg PO DAILY cholecalciferol (vitamin D3) 50 mcg (2,000 unit) capsule 50 mcg PO DAILY losartan 25 mg tablet 12.5 mg PO DAILY Print Language: Botswanan
[2024-08-17 18:46] LABS: Troponin-I High Sensitivity 4.3 ng/L (<3.5-35.0)
[2024-08-17 18:49] LABS: Ethanol < 10 mg/dL
[2024-08-17 18:51] LABS: Lactic Acid 2.5 mmol/L (0.5-2.0)
[2024-08-17 19:01] LABS: Influenza A PCR NEGATIVE (Negative); Influenza B PCR NEGATIVE (Negative); Resp Syncy Virus RNA Qual PCR NEGATIVE (Negative); SARS COV2 PCR INHOUSE NEGATIVE (Negative)
[2024-08-17] MEDS: dexAMETHasone sod phosphate 10 MG/ML VIAL IVPUSH (19:20)
[2024-08-17] MEDS: 0.9 % Sodium Chloride 500 ML IV (19:20)
[2024-08-17] MEDS: diazePAM 10 MG/2 ML CARTRIDGE 5 MG IVPUSH (19:20)
[2024-08-17 19:25] VITALS: BP 144/91; PULSE 110; RESP 18; TEMP 37; O2SAT 97
[2024-08-17] MEDS: iohexoL 350 MG/ML 100 ML INFUS..BTL IV (19:54)
[2024-08-17 20:11] VITALS: BP 144/91; PULSE 110; RESP 18; TEMP 37; O2SAT 97
[2024-08-17 20:20] LABS: Reflex Lactate? Lactic Acid Added
== END 2024-08-17 20:13 | disposition short-term general hospital (02) ==
PROVIDERS: Emergency Provider Student in an Organized Health Care Education/Training Program
DX: A41.59 Other Gram-negative sepsis (principal); R53.1 Weakness; R15.9 Full incontinence of feces; R32 Unspecified urinary incontinence; R10.9 Unspecified abdominal pain; R06.02 Shortness of breath; I12.9 Hypertensive chronic kidney disease with stage 1 through stage 4 chronic kidney disease, or unspecified chronic kidney disease; N18.31 Chronic kidney disease, stage 3a; Z79.899 Other long term (current) drug therapy; Z03.818 Encounter for observation for suspected exposure to other biological agents ruled out
CPT/HCPCS: 0241U; 36415; 71045; 72131; 74177; 80048; 80307; 82803; 83605; 84484; 85025; 87040; 87205; 93005; 96374; 96375; 99284; 99285; J1100; J3360; Q9967

== ENCOUNTER → 2024-08-17 16:39 | Outpatient (BNV) | payer MEDICAID, SELFPAY | PROVIDERS: Emergency Provider Student in an Organized Health Care Education/Training Program; Visit Provider Internal Medicine Cardiovascular Disease | DX: R06.02 Shortness of breath (principal); I44.0 Atrioventricular block, first degree; R94.31 Abnormal electrocardiogram [ECG] [EKG] | CPT/HCPCS: 93010 ==

== ENCOUNTER → 2024-08-17 16:43 | Outpatient (BNV) | payer MEDICAID, SELFPAY | PROVIDERS: Emergency Provider Student in an Organized Health Care Education/Training Program; Visit Provider Radiology Diagnostic Radiology | DX: R10.2 Pelvic and perineal pain (principal); M54.50 Low back pain, unspecified; R06.2 Wheezing | CPT/HCPCS: 71045; 72131; 74177 ==

== ENCOUNTER 2024-09-11 12:02 | Outpatient (REF) | payer MEDICAID, SELFPAY ==
--- NOTE | ~2024-09-11 | XR_ITS ---
EXAMINATION: XR SHOULDER, LEFT CLINICAL INFORMATION: acute pain anterior shoulder limited rom ; denies injury. COMPARISON: None available. TECHNIQUE: Three views of the left shoulder. FINDINGS: No fracture, dislocation, or suspicious bone lesion. Normal alignment. 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 Minimal superior surface spurring of the AC joint. Neutral lateral acromion with tiny spur. Preserved subacromial space. Remainder of the soft tissue and bony structures appear normal. XR/XR shoulder LT min 2V IMPRESSION: No acute findings left shoulder. Electronically signed by: Kaushal Trujillo MD 09/11/2024 01:12 PM JASVIR
--- OUTSIDE RECORDS SUMMARY | 2024-09-11 14:11 | XMS_ITS | Encounter Summary ---
Author Organization [employer] Address [address] [place] [address] Care Team Providers Care Medical Driver Name Role Phone Samantha Gonzales MD Primary Care Provider [phone] Reason for Visit * Reason Comments Transition Of Care (Tcm) HDF scheduled. Encounter Details Date Type Department Care Team ([facility] st Contact Info) Description 08/21/2024 Patient Outreach [facility] [address] [place], [place] [phone] Samantha Gonzales MD [address] [place], [place] [phone] Transition Of Care (Tcm) (HDF scheduled. ) Social History Tobacco Use Types Packs/Day Years Used Date Smoking Tobacco: Never Passive Smoke Exposure: Never Smokeless Tobacco: Never Alcohol Use Standard Drinks/Week Comments Yes 0 (1 standard drink = 0.6 oz pur e alcohol) Alcohol Answer Date Recorded Frequency of Alcohol Consumption Not on file 06/25/2024 Average Number of Drinks Not on file 024 Frequency of Binge Drinking Not on file 02/2024 Score 0 06/25/2024 Depression Answer Date Recorded Patient Health Questionnaire-9 Score 0 06/25/2024 Patient Health Questionnaire-9 Score 0 06/25/2024 Last PHQ-9: Questionnaire Data Not on file 1 08/25/2023 Housing Stability Answer Date Recorded What is your housing situation today? I have neel badillo 12/26/[address] you li ve. Do you have problems with any of the following? None of the above 12/26/2023 Food Insecurity Answer Date Recorded Within the past 12 months, y ou worried that your food would run out before you got money to buy more: Never True 12/26/2023 Within the past 12 months,th e food you bought just didn't last and you didn't have enough money to get more: Never True 04/2024 Transportation Answer Date Recorded In the past 12 months, has l ack of transportation kept you from medical appts, meetings, work or from getting things needed for daily living? No 12/26/2023 Utilities Answer Date Recorded In the past 12 months, has t he electric, gas, oil or water company threatened to shut off services in your home? No 12/26/2023 Depression Answer Date Recorded Patient Health Questionnaire-2 Score 0 06/25/2024 Sex and Gender Information Value Date Recorded Sex Assigned at Male 06/18/2022 10:17 AM EDT Legal Sex Male 10:17 AM EDT Gender Identity Male 06/18/2022 10:17 AM EDT Sexual Orientation Straight 06/18/2022 10 :17 AM EDT documented as of this encounter Miscellaneous Notes * Significant Event - Christi Ko - 08/21/2024 11:22 AM EST 08/21/24 1121 Hospital Discharges and Admission for [facility] Type of Visit Hospital Admission Date of Admission/Visit 08/18/24 Date of Discharge 08/21/24 Facility [facility] Diagnosis Bilateral Lower Extremity Weakness Disposition Discharged Home Follow-Up Actions Follow-Up Needed Provider appointment Follow-Up Outcome Booked Appointment;Spoke to Caregiver Initial Contact Date 08/21/24 Received incoming call from the Direct Hospital Line from [facility]. Patient was admitted to this facility on 08/18/2024 for diagnosis of Bilateral Lower Extremities weakness. Patient will be discharged from the facility on 08/21/2024. Patient has been scheduled for an HDF appointmenton 09/03/2023 at 10:30am with Dr. Covington. CM requested discharge summaries to be faxed to the Care Management Department at [phone]. CC scanned discharge summary into patient's chart. Insurance verified prior to scheduling. documented in this encounter Plan of Treatment Upcoming Encounters Date Type Department Care Team ([facility] st Contact Info) Description 09/11/2024 2:15 PM EST Office Visit [facility] [address] [place] [phone] Kerwin Mendoza MD [address] [place] [address] Arrived 10/08/2024 11:00 AM EST Office Visit [facility] [address] [place] [address] Samantha Gonzales MD [address], [place] [phone] documented as of this encounter Visit Diagnoses Not on filedocumented in this encounter Additional Health Concerns Assessment Noted Time PHQ-9 Depression Total Score: 0 06/25/20 11:09 AM EST documented as of this encounter Care Teams Medical Driver Relationship Specialty Start Date End Date [place] [phone] PCP - General Family Medicine 07/09/13 [facility] 05/17/24 documented as of this encounter
--- OUTSIDE RECORDS SUMMARY | 2024-09-11 14:11 | XMS_ITS | Encounter Summary ---
Author Organization [employer] Address [address] [place] [address] Care Team Providers Care Electronic Coils Supervisor Name Role Phone Samantha Gonzales MD Primary Care Provider [phone] Encounter Details Date Type Department Care Team (Late st Contact Info) Description 09/03/2024 10:30 AM EST Office Visit [facility] MED[facility]INE [address] [place], [place] [phone] Brianna Covington ANP [address] [place], [place] [phone] Hospital discharge follow-up (Primary Dx); POLLY (acute kidney injury) (CMS/HCC); Thrombocytopenia (CMS/HCC); Alcohol use disorder; Acquired lymphedema of lower extremity Social History Tobacco Use Types Packs/Day Years [...] AM EDT documented as of this encounter Last Filed Vital Signs Vital Sign Reading Time Taken Comments Blood Pressure 161/94 09/03/2024 1:17 PM EST Pulse 92 09/03/2024 1:17 PM EST Temperature 36.8 ??C (98.3 ??F) 09/03/2024 10:[address] Respiratory Rate 20 09/03/2024 10:29 AM EST Oxygen Saturation 98% 09/03/2024 10:29 AM EST Inhaled Oxygen Concentration - - Weight 107 kg (236 lb 9.6 oz) 09/03/2024 10:29 A M EST Height 170.2 cm (5' 7 ) 09/03/2024 10:29 AM EST Body Mass Index 37.06 09/03/2024 10:29 AM EST documented in this encounter Plan of Treatment Upcoming Encounters Date Type Department Care Team (Late st Contact Info) Description 09/11/2024 2:15 PM EST Office Visit [facility] MED[facility]INE [address] [place] [phone] Kerwin Mendoza MD [address] [place] [phone] Arrived 10/08/2024 11:00 AM EST Office Visit [facility] [address] [place] [phone] Samantha Gonzales MD [address] [place] [address] Scheduled Orders Name Type Priority Associated Diagnoses Orde r Schedule CBC auto differential Lab Routine Thrombocytopenia (CMS/HCC) Expected: 09/03/2024 (Approximate), Expires: 09/03/2025 Hepatic Function Panel Lab Routine Thrombocytopenia (CMS/HCC) Expected: 09/03/2024 (Approximate), Expires: 09/03/2025 documented as of this encounter Visit Diagnoses Diagnosis Hospital discharge follow-up- Primary Other follow-up examination POLLY (acute kidney injury) (CMS/HCC) Thrombocytopenia (CMS/HCC) Unspecified thrombocytopenia Alcohol use disorder Acquired lymphedema of lower extremity documented in this encounter Additional Health Concerns Assessment Noted Time PHQ-9 Depression Total Score: 0 06/25/20 24 11:09 AM EST documented as of this encounter Care Teams Electronic Coils Supervisor Relationship Specialty Start Date End Date Samantha Gonzales MD [address] [place] [address] PCP - General Family Medicine 07/09/13 [facility] 05/17/24 documented as of this encounter
--- OUTSIDE RECORDS SUMMARY | 2024-09-11 14:11 | XMS_ITS | Encounter Summary ---
Author Organization [employer] Address [address] [facility] 7[address] [place] [address] Care Team Providers Care Clinical Operations Leader Name Role Phone Samantha Gonzales MD Primary Care Provider [phone] Encounter Details Date Type Department Care Team (Late st Contact Info) Description 08/17/2024 Orders Only GENERIC EXTERNAL DATA DEPARTMENT Provider, Generic External Data Social History Tobacco Use Types Packs/Day Years [...] AM EDT documented as of this encounter Plan of Treatment Upcoming Encounters Date Type Department Care Team (Late st Contact Info) Description 09/11/2024 2:15 PM EST Office Visit [facility] [address] [place] [phone] Kerwin Mendoza MD [address] [place] [phone] Arrived 10/08/2024 11:00 AM EST Office Visit [facility] [address] [place] [phone] Samantha Gonzales MD [address] [place] [phone] documented as of this encounter Procedures Procedure Name Priority Date/Time Associated Diagnosis Comments CT ABDOMEN PELVIS W CONTRAST Routine 08/17/2024 8:[address] LUMBAR SPINE WO CONTRAST Routine 08/17/2024 7:21 PM EST XR CHEST 1 VIEW Routine 08/17/2024 7:05 PM EST BLOOD CULTURE (SECOND) Routine 08/17/2024 6:29 PM EST ETHANOL Routine 08/17/2024 6:29 PM EST VENOUS BLOOD GAS Routine 08/17/2024 6:22 PM EST SARS COV2/INFLUENZA A/B AND RSV RNA QL NAAT Routine 08/17/2024 6:14 PM EST BLOOD CULTURE (FIRST) Routine 08/17/2024 6:13 PM EST HIGH SENSITIVITY TROPONIN I Routine 08/17/2024 6:13 PM EST CBC WITH AUTO DIFFERENTIAL Routine 08/17/2024 6:13 PM EST LACTIC ACID Routine 08/17/2024 6:13 PM EST BASIC METABOLIC PANEL Routine 08/17/2024 6:13 PM EST documented in this encounter Results * CT Abdomen Pelvis w/ Contrast (08/17/2024 8:44 PM EST) Anatomical Region Laterality Modality Body, Pelvis, Abdomen Computed T omography 08/17/2024 8:44 PM EST Narrative 08/17/2024 8:46 PM EST ? [facility] ?[address] ?[place] [address] ? CT Scan Report ? Signed ? Patient: Mohan Gonzalez ?MR#: [id number] ?? [id number] ? : 1960 ?Acct:[id number] ? Age/Sex: 64 / M ?ADM Date: 08/17/24 ? Loc: HO.ED ? Attending Dr: ? Ordering Physician: Vito Marquez MD ?? Date of Service: 08/17/24 ?? Procedure(s): CT abdomen pelvis w IV con ?? Accession Number(s): [id number] ? cc: Vito Marquez MD; [facility] ? Report Number: ?? [id number]: Total DLP = ??703.00 mGy-cm ? CLINICAL HISTORY: abd pain ? CT abdomen and pelvis with contrast ? Comparison: CT/VT/SR - CT ABDOMEN PELVIS WO IV CON - 05/13/2024 11:52 AM ?? EDT ? Findings: ?? The lung bases are clear. ?? Bilateral gynecomastia. ? Fatty infiltration of the liver. Liver is enlarged. ?? Gallbladder, adrenal glands, pancreas and spleen are unremarkable. ?? 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 Low-attenuation cystic ?? structure in the superior pole of the left kidney measuring 2 cm, possibly ?? simple cyst. Previously noted hyperdense lesion in the upper left kidney ?? not well appreciated. No perinephric fluid collections or abscess. ?? Stranding consistent with scarring in the left perirenal area. Right ?? kidney is unremarkable. No hydronephrosis of either kidney. No ureteral ?? stones. ?? Adrenal glands, pancreas and IVC are unremarkable. ?? No bowel obstruction, pneumoperitoneum, or pneumatosis. ?? There has been interval resolution of left abdominal wall fluid collection ?? previously seen. ?? There is haziness within the mesenteric root as well as the ?? retroperitoneum, similar to prior. Stranding is most prominent in the ?? region of the duodenum. There is a small duodenal diverticulum near the ?? ampulla. ? Urinary bladder is unremarkable. Prostate gland is normal. ?? Trace free fluid in the abdomen. ?? No acute fracture. ? IMPRESSION: ?? Retroperitoneal stranding most prominently around the duodenum of ?? uncertain clinical significance. No duodenal wall thickening. This ?? stranding was present to a lesser degree on prior study. Differential ?? includes incidental finding versus duodenitis. ?? Trace ascites. ?? Hepatomegaly with diffuse fatty infiltration. ?? Previous partial left nephrectomy. ?? 2 cm cystic structure in the superior pole of the left kidney, likely ?? cyst. ?? Interval resolution of the left abdominal wall fluid collection. ? This document has been electronically signed by: Eddy Recinos MD on ?? 08/17/2024 20:44:13 ? Dictated By: ?Eddy Recinos MD ? Signed By: ?<Electronically signed by Eddy Recinos MD in OV> ? 08/17/242044 ? DD/ 43 ? TD/TT: 08/17/242043 ? Game Manager: ? Procedure Note Mallorie Coles - 08/17/[address] [address] [address] Scan Report Signed Patient: Mohan Gonzalez AMR#: [id number] : 1960cct:[id number] Age/Sex: 64 / MADM Date: 08/17/24 Loc: HO.ED Attending Dr: Ordering Physician: Vito Marquez MD Date of Service: 08/17/24 Procedure(s): CT abdomen pelvis w IV con Accession Number(s): [id number] cc: Vito Marquez MD; [facility] Report Number: [id number]: Total DLP = 703.00 mGy-cm CLINICAL HISTORY: abd pain CT abdomen and pelvis with contrast Comparison: CT/VT/SR - CT ABDOMEN PELVIS WO IV CON - 05/13/2024 11:52 AM EDT Findings: The lung bases are clear. Bilateral gynecomastia. Fatty infiltration of the liver. Liver is enlarged. Gallbladder, adrenal glands, pancreas and spleen are unremarkable. 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 Low-attenuation cystic structure in the superior pole of the left kidney measuring 2 cm, possibly simple cyst. Previously noted hyperdense lesion in the upper left kidney not well appreciated. No perinephric fluid collections or abscess. Stranding consistent with scarring in the left perirenal area. Right kidney is unremarkable. No hydronephrosis of either kidney. No ureteral stones. Adrenal glands, pancreas and IVC are unremarkable. No bowel obstruction, pneumoperitoneum, or pneumatosis. There has been interval resolution of left abdominal wall fluid collection previously seen. There is haziness within the mesenteric root as well as the retroperitoneum, similar to prior. Stranding is most prominent in the region of the duodenum. There is a small duodenal diverticulum near the ampulla. Urinary bladder is unremarkable. Prostate gland is normal. Trace free fluid in the abdomen. No acute fracture. IMPRESSION: Retroperitoneal stranding most prominently around the duodenum of uncertain clinical significance. No duodenal wall thickening. This stranding was present to a lesser degree on prior study. Differential includes incidental finding versus duodenitis. Trace ascites. Hepatomegaly with diffuse fatty infiltration. Previous partial left nephrectomy. 2 cm cystic structure in the superior pole of the left kidney, likely cyst. Interval resolution of the left abdominal wall fluid collection. This document has been electronically signed by: Eddy Recinos MD on 08/17/2024 20:44:13 Dictated By: Eddy Recinos MD Signed By: <Electronically signed by Eddy Recinos MD in OV> 08/17/242044 DD/ 43 TD/TT: 08/17/242043 Game Manager: us [facility] External Provider IMG CT PROCEDURES Final Result * CT Lumbar Spine w/o Contrast (08/17/2024 7:21 PM EST) Anatomical Region Laterality Modality Spine, L-spine Computed Tomogra phy 08/17/2024 7:21 PM EST Narrative 08/17/2024 7:23 PM EST ? [facility] ?[address] ?[place] [address] ? CT Scan Report ? Signed ? Patient: Mohan Gonzalez ?MR#: [id number] ?? [id number] ? : 1960 ?Acct:[id number] ? Age/Sex: 64 / M ?ADM Date: 08/17/24 ? Loc: HO.ED ? Attending Dr: ? Ordering Physician: Vito Marquez MD ?? Date of Service: 08/17/24 ?? Procedure(s): CT lumbar spine wo IV con ?? Accession Number(s): [id number] ? cc: Vito Marquez MD; [facility] ? Report Number: ?? [id number]: Total DLP = ??688.00 mGy-cm ? CLINICAL HISTORY: back pain ? CT lumbar spine without contrast ? Comparison: None ? Findings: ?? Normal vertebral body alignment. ?? No evidence of acute fracture. Minimal anterior wedging of the L2 ?? vertebral body which appears chronic in nature. ?? Mild degenerative changes of the lumbar spine. ?? Osseous spurring of the left SI joint. ? Visualized abdominal contents unremarkable. ? IMPRESSION: ?? No acute findings. ? This document has been electronically signed by: Eddy Recinos MD on ?? 08/17/2024 19:21:22 ? Dictated By: ?Eddy Recinos MD ? Signed By: ?<Electronically signed by Eddy Recinos MD in OV> ? 08/17/241921 ? DD/ 20 ? TD/TT: 08/17/241920 ? Game Manager: ? Procedure Note Mallorie Coles - 08/17/2024 [id number] [place] [address] CT Scan Report Signed Patient: Mohan Gonzalez AMR#: [id number] : 1960cct:[id number] Age/Sex: 64 / MADM Date: 08/17/24 Loc: HO.ED Attending Dr: Ordering Physician: Vito Marquez MD Date of Service: 08/17/24 Procedure(s): CT lumbar spine wo IV con Accession Number(s): [id number] cc: Vito Marquez MD; [facility] Report Number: [id number]: Total DLP = 688.00 mGy-cm CLINICAL HISTORY: back pain CT lumbar spine without contrast Comparison: None Findings: Normal vertebral body alignment. No evidence of acute fracture. Minimal anterior wedging of the L2 vertebral body which appears chronic in nature. Mild degenerative changes of the lumbar spine. Osseous spurring of the left SI joint. Visualized abdominal contents unremarkable. IMPRESSION: No acute findings. This document has been electronically signed by: Eddy Recinos MD on 08/17/2024 19:21:22 Dictated By: Eddy Recinos MD Signed By: <Electronically signed by Eddy Recinos MD in OV> 08/17/241921 DD/ 20 TD/TT: 08/17/241920 Game Manager: [facility] External Provider IMG CT PROCEDURES Final Result * XR Chest 1 View (08/17/2024 7:05 PM EST) Anatomical Region Laterality Modality Chest Radiographic Paty ging 08/17/2024 7:05 PM EST Narrative 08/17/2024 7:06 PM EST ? [facility] ?[address] [facility] ?[place] [address] ?XRay Report ? Signed ? Patient: ,Mohan A ?MR#: [id number] ?? [id number] ? : 1960 ?Acct:[id number] ? Age/Sex: 64 / M ?ADM Date: 12/30/24 ? Loc: HO.ED ? Attending Dr: ? Ordering Physician: Vito Marquez MD ?? Date of Service: 08/17/24 ?? Procedure(s): XR chest 1V ?? Accession Number(s): [id number] ? cc: Vito Marquez MD; [facility] ? CLINICAL HISTORY: wheezing ? 1 view chest x-ray ? Comparison: CR/SR - XR CHEST 1V - 09/25/2023 05:51 PM EST ? Findings: ?? No consolidation or effusion. ?? Normal size heart. ?? No acute fracture. ? IMPRESSION: ?? 1. No acute findings. ? This document has been electronically signed by: Eddy Recinos MD on ?? 08/17/2024 19:05:52 ? Dictated By: ?Eddy Recinos MD ? Signed By: ?<Electronically signed by Eddy Recinos MD in OV> ? //24 1906 ? DD/ 04 ? TD/TT: 08/17/241904 ? Game Manager: ? Procedure Note Donottayointerpreter, Image - 08/17/2024 [address] [address] XRay Report Signed Patient: Mohan Gonzalez AMR#: [id number] : 1960cct:[id number] Age/Sex: 64 / MADM Date: 08/17/24 Loc: HO.ED Attending Dr: Ordering Physician: Vito Marquez MD Date of Service: 08/17/24 Procedure(s): XR chest 1V Accession Number(s): [id number] cc: Vito Marquez MD; [facility] CLINICAL HISTORY: wheezing 1 view chest x-ray Comparison: CR/SR - XR CHEST 1V - 09/25/2023 05:51 PM EST Findings: No consolidation or effusion. Normal size heart. No acute fracture. IMPRESSION: 1. No acute findings. This document has been electronically signed by: Eddy Recinos MD on 08/17/2024 19:05:52 Dictated By: Eddy Recinos MD Signed By: <Electronically signed by Eddy Recinos MD in OV> 08/17/241905 DD/ 04 TD/TT: 08/17/241904 Game Manager: [facility] External Provider IMG XR PROCEDURES Final Result * Blood Culture (Second) (08/17/2024 6:29 PM EST) Blood Venous blood specimen / Unknown 08/17/2024 6:29 PM EST 08/17/2024 6:34 PM EST Comment:Blood Narrative [facility] - 08/22/2024 8:34 PM EST Blood Culture (Second) No growth after 5 days. Specimen Source: Blood Generic External Data Provider LAB MICROBIOLOGY - GENERAL ORDERABLES Final Result Performing Organization Address [facility]/ZIP Co de Phone Number [facility] [address] [place] [phone] * Ethanol (08/17/2024 6:29 PM EST) ETHANOL (MG/DL) IN SER/PLAS <10 mg/dL [facility] Comment:Serum/plasma ethanol results are to be used formedical/treatment purposes only. 08/17/2024 6:29 PM EST 08/17/2024 6:34 PM EST Generic External Data Provider LAB BLOOD ORDERAB LES Final Result Performing Organization Address [facility] Co de Phone Number [facility] [address] [place] [phone] * (ABNORMAL) VENOUS BLOOD GAS (08/17/2024 6:22 PM EST) VBG pH 7.37 7.32 - 7.43 [facility] Comment:METER #: [id number] additional_comment: Cb pedrorisa VBG PCO2 35 mmHg [facility] Comment:METER #: [id number] additional_comment: Cb rodrisa VBG PO2 40 mmHg [facility] Comment:METER #: [id number] additional_comment: Cb leighton VBG Base Excess -3.9 mmol/L [facility] Comment:METER #: [id number] additional_comment: Adonay manzanares VBG HCO3 20(L) 22 - 26 mmol/L [facility] Comment:METER #: [id number] additional_comment: Adonay manzanares O2 Sat, Jovan 59.0 % [facility] Comment:METER #: [id number] additional_comment: Adonay manzanares 08/17/2024 6:22 PM EST 08/17/2024 6:27 PM EST Generic External Data Provider LAB BLOOD ORDERAB LES Final Result Performing Organization Address [facility]/ZIP Co de Phone Number [facility] [address] [place] [phone] * SARS-CoV-2 RNA, Influenza A/B, and RSV RNA, Ql NAAT (08/17/2024 6:14 PM EST) Influenza A PCR NEGATIVE Negative [facility] Influenza B PCR NEGATIVE Negative [facility] Resp Syncy Virus RNA Qual PCR NEGATIVE Negative [facility] SARS COV2 PCR NEGATIVE Negative [facility] Comment:All test results mus t be correlated with clinical findings.Negative results do not preclude SARS-CoV2, influenza Avirus, influenza B virus and/or RSV infectionand should not be used as the sole basis for treatment orother patient management decisions. Negative results must becombined with clinical observations, patient history, andepidemiological information.This test has not been evaluated for monitoring treatment ofinfection.This test has been authorized by the FDA under an EmergencyUse Authorization (EUA) for use by authorized laboratories.Testing performed on the [employer] GeneXpert utilizingreal-time RT-PCR.All SARS CoV2 and positive influenza A/B results arereported to [facility]. 08/17/2024 6:14 PM EST 08/17/2024 6:20 PM EST us Generic External Data Provider LAB MICROBIOLOGY - GENERAL ORDERABLES Final Result Performing Organization Address City/[facility]/ZIP Co de Phone Number [facility] [address] [place] [phone] * Blood Culture (First) (08/17/2024 6:13 PM EST) Blood Venous blood specimen / Unknown 08/17/2024 6:13 PM EST 08/17/2024 6:20 PM EST Comment:Blood Narrative [facility] - 08/20/2024 11:08 AM EST Blood Culture (First) null Blood Culture (First) null Blood Culture (First) null Blood Culture (First) null Blood Culture (First) null Blood Culture (First) null Blood Culture (First) null Blood Culture (First) null Blood Culture (First) null Blood Culture (First) BC Positive/Drawn Blood Culture (First) 1 set positive/2 sets drawn Blood Culture (First) GS - on external report Blood Culture (First) Gram-positive cocci Blood Culture (First) Review Comment Blood Culture (First) Gram stain reviewed by a Papier Mache' Molder Blood Culture (First) MRSA PCR Blood Culture (First) MRSA: Negative, SA: Negative Coag negative Staphylococcus [facility]BLD STANEG comment Unlikely pathogen; call Micro if full workup indicated. Results of Blood Culture gram stain called to and read back by ADRIANA at 2252 on 08/18/24 by TIFFANIE. Specimen Source: Blood [employer] External Data Provider LAB MICROBIOLOGY - GENERAL ORDERABLES Final Result [facility] [address] [place] [phone] * (ABNORMAL) Lactic Acid (08/17/2024 6:13 PM EST) Lactic Acid 2.5(HH) 0.5 - 2.0 mmol/L [facility] Comment:Critical value for t est(s): LATIC ACID Results called toand read back by: MELISSA Person calling: KENZIE Date:08/17/24 Time: 184 08/17/2024 6:13 PM EST 08/17/2024 6:20 PM EST Generic External Data Provider LAB BLOOD ORDERAB LES Final Result Performing Organization Address [facility]/ZIP Co de Phone Number [facility] [address] [place] [phone] [phone] * High Sensitivity Troponin I (08/17/2024 6:13 PM EST) [facility] TROPONIN I HIGH SENSITIVITY 4.3 <3.5 - 35.0 ng/L [facility] Comment:The Erwin high sens itivity Troponin-I results should beused in conjunction with other diagnostic information suchas ECG, clinical observations and information, and patientsymptoms to aid in the diagnosis of IA. 08/17/2024 6:13 PM EST 08/17/2024 6:20 PM EST Generic External Data Provider LAB BLOOD ORDERAB LES Final Result Performing Organization Address [facility] Co de Phone Number [facility] [address] [place] [phone] * (ABNORMAL) CBC auto differential (08/17/2024 6:13 PM EST) [facility] White Blood Count 6.4 4.8 - 10.8 X10*3/uL [facility] Red Blood Count 3.62(L) 4.60 - 5.80 X10*6/uL [facility] Hemoglobin 11.0(L) 14.0 - 18.0 g/dl [facility] Hematocrit 32.9(L) 42.0 - 52.0 % [facility] Mean Corpuscular Volume 90.9 80.0 - 98.0 fL [facility] Mean Corpuscular Hemoglobin 30.4 27.0 - 33.0 pg [facility] Mean Corpuscular HGB Conc 33.4 31.0 - 36.0 g/dl [facility] Red Cell Distribution Width 16.3(H) 11.0 - 16.0 % [facility] Platelet Count 49(L) 160 - 400 X10*3/uL [facility] Mean Platelet Volume 9.1(L) 9.4 - 12.4 fL [facility] Neutrophils Percent Auto 77.3(H) 45 - 73 % [facility] Imm Gran Pct Auto 0.3 0.0 - 0.4 % [facility] Lymphocytes Percent Auto 14.6(L) 20 - 40 % [facility] Monocytes Percent Auto 6.4 2 - 11 % [facility] Eosinophils Percent Auto 0.6 0 - 4 % [facility] Basophils Percent Auto 0.8 0 - 2 % [facility] NRBC Pct Auto 0.0 0.0 - 0.2 /100WBC [facility] Neutrophils Absolute Auto 4.9 2.0 - 8.3 x10*3/uL [facility] Imm Gran Abs Auto 0.02 0.00 - 0.03 X10*3/uL [facility] Lymphocytes Absolute Auto 0.9(L) 1.2 - 4.9 X10*3/uL [facility] Monocytes Absolute Auto 0.4 0.1 - 1.2 X10*3/uL [facility] Eosinophils Absolute Auto 0.0 0.0 - 0.4 X10*3/uL [facility] Basophils Absolute Auto 0.1 0.0 - 0.2 X10*3/uL [facility] NRBC Abs Auto 0.000 0.0 - 0.012 X10*3/uL [facility] 08/17/2024 6:13 PM EST 08/17/2024 6:20 PM EST us Generic External Data Provider LAB BLOOD ORDERAB LES Final Result [facility] [address] [place], [place] [phone] * (ABNORMAL) Basic Metabolic Panel (08/17/2024 6:13 PM EST) Sodium 142 135 - 145 mmol/L [facility] Potassium 4.8 3.3 - 5.1 mmol/L [facility] Chloride 104 96 - 108 mmol/L [facility] Carbon Dioxide 19(L) 22 - 29 mmol/L [facility] Anion Gap 24(H) 12 - 20 [facility] Urea Nitrogen (BUN) 18(H) 9 - 16 mg/dL [facility] Creatinine, Serum 1.08 0.5 - 1.4 mg/dL [facility] Creatinine Clr Calc Pharmacy 79.1 [facility] Comment:eGFR (calculated fro m the MDRD study equation) and eCrCl(calculated from the Cockcroft-Gault equation) are based ondifferent parameters and may not yield comparable results.If eCrCl result is absurd, please check patient'sheight/weight. Estimated Glomerular Filt Rate >60 [facility] Comment:Chronic Kidney Disea se: Estimated GFR < 60 mL/min/1.30b5Zqkgfe Kidney Disease: Estimated GFR < 15 mL/min/1.73m2 Glucose 90 60 - 115 mg/dL [facility] Calcium 9.0 8.4 - 10.2 mg/dL [facility] 08/17/2024 6:13 PM EST 08/17/2024 6:20 PM EST us Generic External Data Provider LAB BLOOD ORDERAB LES Final Result Performing Organization Address City/State/[facility] Co de Phone Number [facility] [address] [place] [phone] documented in this encounter Visit Diagnoses Not on filedocumented in this encounter Additional Health Concerns Assessment Noted Time PHQ-9 Depression Total Score: 0 06/25/20 24 11:09 AM EST documented as of this encounter Care Teams Clinical Operations Leader Relationship Specialty Start Date End Date Samantha Gonzales MD [address] [place] [phone] PCP - General Family Medicine 07/09/13 [facility] 05/17/24 documented as of this encounter
--- OUTSIDE RECORDS SUMMARY | 2024-09-11 14:11 | XMS_ITS | Encounter Summary ---
Author Organization [employer] Address [address] [facility] 7t [place] [address] Care Team Providers Care Classification Counselor Name Role Phone Samantha Gonzales MD Primary Care Provider [phone] Reason for Visit * Reason Onset Date Comments vna services 08/27/2024 Encounter Details Date Type Department Care Team ([facility] st Contact Info) Description 08/27/2024 Telephone [facility] MEDICINE [address] [place], [place] [phone] Samantha Gonzales MD [address] [place], [place] [phone] vna services Social History Tobacco Use Types Packs/Day Years [...] as of this encounter Miscellaneous Notes * Telephone Encounter - Marcella Wong RN - 08/27/2024 4:14 PM EST TC placed to [facility] with [facility] VNA and a detailed message was left to call back the office * Telephone Encounter - Carmen Paz - 08/27/2024 10:05 AM EST Tc from [facility] with [facility] to confirm active pt, and if pcp can signed vna services order. documented in this encounter Plan of Treatment Upcoming Encounters Date Type Department Care Team (Late st Contact Info) Description 09/11/2024 2:15 PM EST Office Visit [facility] MEDICINE [address] [place] [address] Kerwin Mendoza MD [address] [place] [address] Arrived 10/08/2024 11:00 AM EST Office Visit [facility] MEDICINE [address] [place] [address] Samantha Gonzales MD [address] [place] [phone] documented as of this encounter Visit Diagnoses Not on filedocumented in this encounter Additional Health Concerns Assessment Noted Time PHQ-9 Depression Total Score: 0 06/25/20 24 11:09 AM EST documented as of this encounter Care Teams Classification Counselor Relationship Specialty Start Date End Date Samantha Gonzales MD 230 [place] [address] PCP - General Family Medicine 07/09/13 [facility] 05/17/24 documented as of this encounter
--- OUTSIDE RECORDS SUMMARY | 2024-09-11 14:11 | XMS_ITS | Encounter Summary ---
Author Organization [employer] Address [address] [place] [address] 7t [place] [address] Care Team Providers Care Farm Loan Representative Name Role Phone Samantha Gonzales MD Primary Care Provider [phone] Reason for Visit * Reason Comments Transition Of Care (Tcm) RE: HDF APPT RE MINDER Encounter Details Date Type Department Care Team ([facility] st Contact Info) Description 08/31/2024 Patient Outreach [facility] MEDICINE [address] [place] [address] Samantha Gonzales MD 230 [place] [address] Transition Of Care (Tcm) (RE: HDF APPT REMINDER ) Social History Tobacco Use Types Packs/Day [...] encounter Miscellaneous Notes * Significant Event - Sharon Mcmillan - 08/31/2024 8:58 AM EST 08/31/24 0857 Hospital Discharges and Admission for [facility] Type of Visit Hospital Admission Date of Admission/Visit 08/24/24 Date of Discharge 08/28/24 Facility [facility] Diagnosis Debility Disposition Discharged with Home Care Services Follow-Up Actions Follow-Up Needed Provider appointment Follow-Up Outcome Spoke to Patient Initial Contact Date 08/31/24 MONY Covington placed outbound call to patient for HDF outreach. Patient's name and were confirmed. Patient educated on the importance of follow up with provider following inpatient admission. Patient is already scheduled for HDF appointment. Patient aware of appointment date and time. CC scanneddischarge summary into patient's chart. Biggest concern for appointment at this time is no concernsat the moment. Appropriate screenings completed in anticipation of appointment. documented in this encounter Plan of Treatment Upcoming Encounters Date Type Department Care Team ([facility] st Contact Info) Description 09/11/2024 2:15 PM EST Office Visit [facility] MEDICINE 230 [place] [address] Kerwin Mendoza MD 230 [place] [address] Arrived 10/08/2024 11:00 AM EST Office Visit [facility] [place] [place] [phone] Samantha Gonzales MD [address] [place], [place] [phone] documented as of this encounter Visit Diagnoses Not on filedocumented in this encounter Additional Health Concerns Assessment Noted Time PHQ-9 Depression Total Score: 0 06/25/20 11:09 AM EST documented as of this encounter Care Teams Farm Loan Representative Relationship Specialty Start Date End Date Samantha Gonzales MD [place]ika [place], [place] [phone] PCP - General Family Medicine 07/09/13 [facility] 05/17/24 documented as of this encounter
--- OUTSIDE RECORDS SUMMARY | 2024-09-11 14:11 | XMS_ITS | Encounter Summary ---
Author Organization [employer] Address [address] [facility] 7t [place] [address] Care Team Providers Care Cryptologic Supervisor Name Role Phone Samantha Gonzales MD Primary Care Provider [phone] Reason for Visit * Reason Comments Care Coordination Outreach Encounter Details Date Type Department Care Team (Latest Contact Info) Description 09/02/2024 Patient Outreach [facility] MED & PEDS [address] [place], [place] [phone] Samantha Gonzales MD 230 [place], [place] [phone] Care Coordination (Outreach) Social History Tobacco Use Types Packs/Day Years [...] AM EDT documented as of this encounter Progress Notes * Tosha Newby - 09/02/2024 10:01 AM EST CHW Tosha Newby , placed outbound call to patient in regards to offer services. CHW introducing herself from [facility] CM Department with CHW's name, department and direct contact [phone] requesting call back. Will re-attempt to contact within 5 days. and address not confirmed. documented in this encounter Plan of Treatment Upcoming Encounters Date Type Department Care Team (Late st Contact Info) Description 09/11/2024 2:15 PM EST Office Visit [facility] MEDICINE [address] [place] [address] Kerwin Mendoza MD [address] [place] [address] Arrived 10/08/2024 11:00 AM EST Office Visit [facility] MEDICINE [address] [place] [address] [phone] Samantha Gonzales MD [address] [place] [address] documented as of this encounter Visit Diagnoses Not on filedocumented in this encounter Additional Health Concerns Assessment Noted Time PHQ-9 Depression Total Score: 0 06/25/20 11:09 AM EST documented as of this encounter Care Teams Cryptologic Supervisor Relationship Specialty Start Date End Date Samantha Gonzales MD 230 [place] [address] PCP - General Family Medicine 07/09/13 [facility] 05/17/24 documented as of this encounter
--- OUTSIDE RECORDS SUMMARY | 2024-09-11 14:11 | XMS_ITS ---
Author Organization [facility] Address [address] [place] [phone] Care Team Providers Care Level Vial Curvature Gauger Name Role Phone Janet SYLVESTER, Samantha Primary Care Provider Eric Flores [phone] REASON FOR VISIT Patient presents today for anemia and diarrhea Encounters Encounter Location Date Provider Diagnosis [facility] [address] [place] [address] 12/26/2023 Eric Lenz PLAN OF TREATMENT No Information
--- OUTSIDE RECORDS SUMMARY | 2024-09-11 14:11 | XMS_ITS | Encounter Summary ---
Author Organization [employer] Address [address] [place] [address] 7t [place] [address] Care Team Providers Care Food Stand Manager Name Role Phone Samantha Gonzales MD Primary Care Provider Encounter Details Date Type Department Care Team (Late Contact Info) Description 01/29/2023 Orders Only [facility] MEDICINE [address] [place] [address] [phone] Samantha Gonzales MD [address] [place] [address] [phone] Hypomagnesemia (Primary Dx) Social History Tobacco Use Types Packs/Day Years Used Date Smoking Tobacco: Never Passive Smoke Exposure: Never Smokeless Tobacco: Never Alcohol Use Standard Drinks/Week Comments Yes 0 (1 standard drink = 0.6 oz pur e alcohol) Depression Answer Date Recorded Patient Health Questionnaire-9 Score 3 12/14/2022 Depression Answer Date Recorded Patient Health Questionnaire-2 Score 0 12/14/2022 Sex and Gender Information Value Date Recorded Sex Assigned at Male 06/18/2022 10:17 AM EDT Legal Sex Male 10:17 AM EDT Gender Identity Male 06/18/2022 10:17 AM EDT Sexual Orientation Straight 06/18/2022 10 :17 AM EDT COVID-19 Exposure Response Date Recorded In the last 10 days, have yo u been in contact with someone who was confirmed or suspected to have Coronavirus/COVID-19? No / Unsure 01/22/2023 10:03 AM EDT documented as of this encounter Plan of Treatment Upcoming Encounters Date Type Department Care Team (Late Contact Info) Description 09/11/2024 2:15 PM EST Office Visit [facility] [address] [place] [address] [phone] Kerwin Mendoza MD 230 [facility] [place] [address] Arrived 10/08/2024 11:00 AM EST Office Visit [facility] [place] [phone] Samantha Gonzales MD 230 [facility] [place], [place] [phone] Scheduled Orders Name Type Priority Associated Diagnoses Orde r Schedule Basic Metabolic Panel Lab Routine Hypomagnesemia Expected: 01/29/2023 (Approximate), Expires: 01/30/2024 Magnesium Lab Routine Hypomagnesemia Expected: 01/29/2023 (Approximate), Expires: 01/30/2024 documented as of this encounter Visit Diagnoses Diagnosis Hypomagnesemia- Primary Disorders of magnesium metabolism documented in this encounter Additional Health Concerns Assessment Noted Time PHQ-9 Depression Total Score: 3 12/15/19 23 1:37 PM EDT documented as of this encounter Care Teams Food Stand Manager Relationship Specialty Start Date End Date Samantha Gonzales MD [facility] [place] [address] PCP - General Family Medicine 07/09/13 [facility] 05/17/24 documented as of this encounter
--- OUTSIDE RECORDS SUMMARY | 2024-09-11 14:11 | XMS_ITS | Encounter Summary ---
Author Organization [employer] Address [address] [facility] 7t [place] [address] Care Team Providers Care Carpenter Mold Name Role Phone Samantha Gonzales MD Primary Care Provider [phone] Encounter Details Date Type Department Care Team (Latest Contact Info) Description 09/03/2024 Travel Social History Tobacco Use Types Packs/Day Years [...] Description 09/11/2024 2:15 PM EST Office Visit [address] [address] Kerwin Mendoza MD [address] [place] [address] Arrived 10/08/2024 11:00 AM EST Office Visit [address] [address] Samantha Gonzales MD [address] [place] [address] documented as of this encounter Visit Diagnoses Not on filedocumented in this encounter Additional Health Concerns Assessment Noted Time PHQ-9 Depression Total Score: 0 06/25/20 24 11:09 AM EST documented as of this encounter Care Teams Carpenter Mold Relationship Specialty Start Date End Date Samantha Gonzales MD [address] [place] [address] PCP - General Family Medicine 07/09/13 [facility] 05/17/24 documented as of this encounter
--- OUTSIDE RECORDS SUMMARY | 2024-09-11 14:11 | XMS_ITS | Encounter Summary ---
Author Organization [employer] Address [address] [facility] 7t [place] [address] Care Team Providers Care Loader Engineer Name Role Phone Samantha Gonzales MD Primary Care Provider [phone] Reason for Visit * Reason Comments Care Coordination Outreach Encounter Details Date Type Department Care Team (Latest Contact Info) Description 08/25/2024 Patient Outreach [facility] CH[facility] MED & PEDS [address] [place], [place] [phone] Samantha Gonzales MD 230 [place] [address] Care Coordination (Outreach) Social History Tobacco Use [...] encounter Progress Notes * Tosha Newby - 08/25/2024 11:05 AM EST CHW Tosha Ulloa placed outreach call to facility [facility], as patient stratified on ADT Feed as admitted on 08/24/2024. CHW introduced herself calling from [facility], calling in regards to assist with discharge plan for patient. Patient's name and confirmed. Per floor nurse, patient continues admitted, and no current discharge plan at this time. Floor nurse took CHWs contact information to provide it to their discharge nurse once patient has a plan of discharge. CHW will re-attempt reaching back to patient within the next 2 days if no call is returned by then. documented in this encounter Plan of Treatment Upcoming Encounters Date Type Department Care Team (Late st Contact Info) Description 09/11/2024 2:15 PM EST Office Visit [facility] MEDICINE [address] [place] [phone] Kerwin Mendoza MD 230 [place] [address] Arrived 10/08/2024 11:00 AM EST Office Visit [facility] MEDICINE [address] [place] [phone] Samantha Gonzales MD 230 [place] [address] documented as of this encounter Visit Diagnoses Not on filedocumented in this encounter Additional Health Concerns Assessment Noted Time PHQ-9 Depression Total Score: 0 06/25/20 24 11:09 AM EST documented as of this encounter Care Teams Loader Engineer Relationship Specialty Start Date End Date Samantha Gonzales MD 230 [place] [address] PCP - General Family Medicine 07/09/13 [facility] 05/17/24 documented as of this encounter
--- OUTSIDE RECORDS SUMMARY | 2024-09-11 14:11 | XMS_ITS | Encounter Summary ---
Author Organization [employer] Address [address] [facility] 7t [place] [address] Care Team Providers Care Peoplesoft Hrms Developer Name Role Phone Samantha Gonzales MD Primary Care Provider [phone] Reason for Visit * Reason Comments Care Coordination Outreach Encounter Details Date Type Department Care Team (Latest Contact Info) Description 08/25/2024 Patient Outreach [facility] MED & PEDS [address] [place], [place] [phone] Samantha Gonzales MD 230 [place] [address] Care Coordination (Outreach/) Social History Tobacco Use Types Packs/Day Years [...] Progress Notes * Tosha Newby - 08/25/2024 10:54 AM EST CHW Tosha Newby, placed outbound call to patient to introduce [facility] ProgramPatient's name, and Address was confirmed. Program information was provided to the patient. Patient states there no plan of discharge at the moment. He thinks he noel be discharged in 2 weeks. Will attempt again in 5 business days. documented in this encounter Plan of Treatment Upcoming Encounters Date Type Department Care Team (Late st Contact Info) Description 09/11/2024 2:15 PM EST Office Visit [facility] MEDICINE [address] [place] [address] Kerwin Mendoza MD [address] [place] [address] Arrived 10/08/2024 11:00 AM EST Office Visit [facility] MEDICINE [address] [place] [address] Samantha Gonzales MD [address] [place] [address] documented as of this encounter Visit Diagnoses Not on filedocumented in this encounter Additional Health Concerns Assessment Noted Time PHQ-9 Depression Total Score: 0 06/25/20 11:09 AM EST documented as of this encounter Care Teams Peoplesoft Hrms Developer Relationship Specialty Start Date End Date Samantha Gonzales MD 230 [place] [address] PCP - General Family Medicine 07/09/13 [facility] 05/17/24 documented as of this encounter
--- OUTSIDE RECORDS SUMMARY | 2024-09-11 14:11 | XMS_ITS | Encounter Summary ---
Author Organization [employer] Address [address] [facility] 7t [place] [address] Care Team Providers Care Radiator Cleaner Name Role Phone Samantha Gonzales MD Primary Care Provider [phone] Reason for Visit * Reason Onset Date Comments chart prep 09/02/2024 Encounter Details Date Type Department Care Team ([facility] st Contact Info) Description 09/02/2024 Telephone [facility] MEDICINE [address] [place], [place] [phone] Nora Booker MA chart prep Social History Tobacco Use Types Packs/Day Years [...] encounter Miscellaneous Notes * Telephone Encounter - Nora Booker MA - 09/02/2024 10:59 AM EST Chart Prep Labs: done Images: done Vaccines due: no updates Referrals: pend colitis Screenings: colonoscopy Overdue care gaps: Oral Health documented in this encounter Plan of Treatment Upcoming Encounters Date Type Department Care Team (Late st Contact Info) Description 09/11/2024 2:15 PM EST Office Visit [facility] MEDICINE [address] [place] [address] Kerwin Mendoza MD [address] [place] [address] Arrived 10/08/2024 11:00 AM EST Office Visit [facility] MEDICINE [address] [place] [address] Samantha Gonzales MD [address] [place] [address] documented as of this encounter Visit Diagnoses Not on filedocumented in this encounter Additional Health Concerns Assessment Noted Time PHQ-9 Depression Total Score: 0 06/25/20 24 11:09 AM EST documented as of this encounter Care Teams Radiator Cleaner Relationship Specialty Start Date End Date Samantha Gonzales MD [address] [place] [address] PCP - General Family Medicine 07/09/13 [facility] 05/17/24 documented as of this encounter
--- OUTSIDE RECORDS SUMMARY | 2024-09-11 14:11 | XMS_ITS | Encounter Summary ---
Author Organization [employer] Address [address] [facility] 7t [place] [address] Care Team Providers Care General Activities Therapist Name Role Phone Samantha Gonzales MD Primary Care Provider [phone] Reason for Referral * Consultation (Routine) - Pending Review Specialty Diagnoses / Procedures Referred By Mildred silva Referred To Contact Orthopaedic Surgery Diagnoses Localized pain of right shoulder joint Sara Alejandra MD [address] [place] [address] Phone: tel: fax: Referral ID Status Reason Start Date Expiration Date Visits Requested Visits Authorized [id number] Pending Review Specialty Services Required 09/11/2024 09/11/2025 1 1 Reason for Visit * Reason Comments Walk-In Right shoulder pain Encounter Details Date Type Department Care Team (Late st Contact Info) Description 09/11/2024 1:00 PM EST Office Visit [facility] [address] [place] [address] [phone] Sraa Alejandra MD [address] [place] [address] Localized pain of left shoulder joint (Primary Dx) Social History Tobacco Use Types [...] Sign Reading Time Taken Comments Blood Pressure 133/88 09/11/2024 11:31 AM EST Pulse 80 09/11/2024 11:31 AM EST Temperature 36.8 ??C (98.2 ??F) 09/11/2024 11:[address] Respiratory Rate 20 09/11/2024 11:31 AM EST Oxygen Saturation 98% 09/11/2024 11:31 AM EST Inhaled Oxygen Concentration - - Weight 107 kg (236 lb) 09/11/2024 11:31 AM EST Height 170.2 cm (5' 7 ) 09/11/2024 11:31 AM EST Body Mass Index 36.96 09/11/2024 11:31 AM EST documented in this encounter Progress Notes * Annise Marley - 09/11/2024 1:00 PM EST Subjective Patient ID: Mohan Gonzalez is a 64 y.o. male with PMHx of renal cell cancer, hypertension, DEBORAH, and alcohol use disorder with recurrent hospitalizations who presents to walk in clinic for Left Shoulder pain. Pt reports he started having pain in his right shoulder yesterday out of the blue. Denied any injury or trama. Pt says he took Tylenol every 6 hrs until he reached the max dose without any relief. Hereports he has decreased ROM and struggling to sleep due to discomfort. Pain was not as severe yesterday as pt was able to shovel show but today cannot move very much. Review of Systems Constitutional: Negative for fever and unexpected weight change. Respiratory: Negative for shortness of breath. Cardiovascular: Negative for chest pain. Gastrointestinal: Negative for abdominal pain. Genitourinary: Negative for difficulty urinating. Musculoskeletal: Positive for arthralgias. Objective Visit Vitals BP 133/88 (BP Location: Left arm, Patient Position: Sitting, BP Cuff Size: Adult) Pulse 80 Temp 98.2 ??F (36.8 ??C) (Temporal) Resp 20 Body mass index is 36.96 kg/m??. Physical Exam Constitutional: Appearance: Normal appearance. Cardiovascular: Rate and Rhythm: Normal rate. Pulmonary: Effort: Pulmonary effort is normal. Musculoskeletal: Left shoulder: Tenderness (at AC joint and Glenohumeral joint) present. Decreased range of motion. Neurological: Mental Status: Mental status is at baseline. Psychiatric: Behavior: Behavior normal. Problem List Items Addressed This Visit Localized pain of right shoulder joint - Primary Pain since yesterday with worsening ROM over the past day. Tried Tylenol without relief. -prescribed lidocaine cream -ordered right shoulder XR -referred to orthopedics Relevant Medications Lidocaine 5 % cream -No evidence of acute disease process. Suspect left shoulder joint disease process. Symptoms mild. -Ordered XR and prescribed topical anesthetic. -ER precautions discussed. -Seek medical attention for worsening symptoms. I, Mirian Roach, am serving as a scribe to document services personally performed by Dr. Quijano, based on the patient's response to questions by provider and providers statements to me. documented in this encounter Miscellaneous Notes * Assessment & Plan Note - Mirian Roach - 09/11/2024 11:50 AM ESTAssociated Problem(s): Localized pain of right shoulder joint Pain since yesterday with worsening ROM over the past day. Tried Tylenol without relief. -prescribed lidocaine cream -ordered right shoulder XR -referred to orthopedics Addendum 09/11/24 1:26 PM Xray IMPRESSION: No acute findings left shoulder. Suspect inflammatory in nature. Given unable to move, will send to orthopedics due to will be unable to tolerate PT. Pt has one kidney, avoid NSAIDS. documented in this encounter Plan of Treatment Upcoming Encounters Date Type Department Care Team (Late st Contact Info) Description 09/11/2024 2:15 PM EST Office Visit [facility] [address] [place] [address] Kerwin Mendoza MD [address] [place] [address] Arrived 10/08/2024 11:00 AM EST Office Visit [facility] [address] [place] [address] Samantha Gonzales MD [address] [place] [address] Scheduled Referrals Name Type Priority Associated Diagnoses Order Schedule Referral to Orthopaedic Surgery Outpatient Referral Routine Localized pain of left shoulder joint Expected: 09/11/2024 (Approximate), Expires: 09/11/2025 documented as of this encounter Procedures Procedure Name Priority Date/Time Associated Diagnosis Comments XR SHOULDER 2+ VIEWS LEFT Routine 09/11/2024 12:05 PM EST Localized pain of left shoulder joint documented in this encounter Results * XR Shoulder 2+ Views Left (09/11/2024 12:05 PM EST) Anatomical Region Laterality Modality Upper Extremities, Shoulder Left Radi ographic Imaging 09/11/2024 12:0 5 PM EST Narrative 09/11/2024 1:15 PM EST ?[facility] ?[address] ?[place] [address] ?XRay Report ? Signed ? Patient: Mohan Gonzalez ?MR#: [id number] ?? [id number] ? : 1960 ?Acct:[id number] ? Age/Sex: 64 / M ?ADM Date: 09/11/24 ? Loc: HO.HHCX ? Attending Dr: Sara Alejandra MD ? Ordering Physician: Sara Alejandra MD ?? Date of Service: 09/11/24 ?? Procedure(s): XR shoulder LT min 2V ?? Accession Number(s): [id number] ? cc: Sara Alejandra MD ? EXAMINATION: ?? XR SHOULDER, LEFT ? CLINICAL INFORMATION: ?? acute pain anterior shoulder limited rom ??; denies injury. ? COMPARISON: ?? None available. ? TECHNIQUE: ?? Three views of the left shoulder. ? FINDINGS: ?? No fracture, dislocation, or suspicious bone lesion. Normal alignment. ?? 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 ?? Minimal superior surface spurring of the AC joint. ?? Neutral lateral acromion with tiny spur. ?? Preserved subacromial space. ? Remainder of the soft tissue and bony structures appear normal. ? XR/XR shoulder LT min 2V ?? IMPRESSION: ?? No acute findings left shoulder. ? Electronically signed by: ??Kaushal Trujillo MD ??09/11/2024 01:12 PM EST RP ? Dictated By: ?Kaushal Trujillo MD ? Signed By: ?<Electronically signed by Kaushal Trujillo MD in OV> ?09/11/24 1312 ? DD/ 1205 ? TD/TT: 09/11/24 1230 ? [employer] Drink Cart Operator: ? Procedure Note Sanket, Mallorie - 09/11/[address] [place] [address] XRay Report Signed Patient: Mohan Gonzalez AMR#: [id number] : 1960cct:[id number] Age/Sex: 64 / MADM Date: 09/11/24 Loc: HO.HHCX Attending Dr: Sara Alejandra MD Ordering Physician: Sara Alejandra MD Date of Service: 09/11/24 Procedure(s): XR shoulder LT min 2V Accession Number(s): [id number] cc: Sara Alejandra MD EXAMINATION: XR SHOULDER, LEFT CLINICAL INFORMATION: acute pain anterior shoulder limited rom ; denies injury. COMPARISON: None available. TECHNIQUE: Three views of the left shoulder. FINDINGS: No fracture, dislocation, or suspicious bone lesion. Normal alignment. 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 Minimal superior surface spurring of the AC joint. Neutral lateral acromion with tiny spur. Preserved subacromial space. Remainder of the soft tissue and bony structures appear normal. XR/XR shoulder LT min 2V IMPRESSION: No acute findings left shoulder. Electronically signed by: Kaushal Trujillo MD 09/11/2024 01:12 PM EST Dictated By: Kaushal Trujillo MD Signed By: <Electronically signed by Kaushal Trujillo MD in OV> 09/11/24 1312 DD/ 1205 TD/TT: 09/11/24 1230 [employer] Operator: Sara Alejandra MD IMG XR PROCEDURES Final Re sult documented in this encounter Visit Diagnoses Diagnosis Localized pain of left shoulder joint- Primary documented in this encounter Additional Health Concerns Assessment Noted Time PHQ-9 Depression Total Score: 0 06/25/20 24 11:09 AM EST documented as of this encounter Care Teams General Activities Therapist Relationship Specialty Start Date End Date Samantha Gonzales MD [address] [place] [address] PCP - General Family Medicine 07/09/13 [facility] 05/17/24 documented as of this encounter
--- OUTSIDE RECORDS SUMMARY | 2024-09-11 14:11 | XMS_ITS | Encounter Summary ---
Author Organization [employer] Address [address] [facility] 7t [place] [address] Care Team Providers Care Parking Control Officer Name Role Phone Samantha Gonzales MD Primary Care Provider [phone] Reason for Visit * Reason Onset Date Comments FYI 09/02/2024 Encounter Details Date Type Department Care Team ([facility] st Contact Info) Description 09/02/2024 Telephone [facility] [address] [place], [place] [phone] Samantha Gonzales MD [address] [place], [place] [phone] Social History Tobacco Use Types Packs/Day Years [...] Telephone Encounter - Marcella Wong RN - 09/03/2024 9:32 AM EST Noted. Pt has HDF appt this morning at 1030 with Brianna Covington * Telephone Encounter - Vito Mike - 09/02/2024 4:49 PM EST TC from [facility] with [facility] A reports Physical Therapy went for an evaluation. Pt does not need Physical Therapy reporting his functional status is impacted by his drinking (Alcohol). Pt reported to A that he drinks 1 gallon of vodka a day . This is a FY for tomorrow 09/03/23 visit with SONI Reed documented in this encounter Plan of Treatment Upcoming Encounters Date Type Department Care Team (Late st Contact Info) Description 09/11/2024 2:15 PM EST Office Visit [facility] [address] [place] [phone] Kerwin Mendoza MD [address] [place] [address] Arrived 10/08/2024 11:00 AM EST Office Visit [facility] [address] [place] [address] Samantha Gonzales MD [address] [place] [address] documented as of this encounter Visit Diagnoses Not on filedocumented in this encounter Additional Health Concerns Assessment Noted Time PHQ-9 Depression Total Score: 0 06/25/20 24 11:09 AM EST documented as of this encounter Care Teams Parking Control Officer Relationship Specialty Start Date End Date Samantha Gonzales MD [address] [place] [address] PCP - General Family Medicine 07/09/13 [facility] 05/17/24 documented as of this encounter
--- OUTSIDE RECORDS SUMMARY | 2024-09-11 14:11 | XMS_ITS | Clinical Summary ---
Author Organization [facility] Address [address] [place] [address] Phone Care Team Providers Care Crystalizer Operator Name Role Phone Samantha Gonzales MD Primary Care Provider [phone] Allergies Active Allergy Reactions Criticality Noted Date Comments Hydrochlorothiazide Other (see comments) 2020 Statins 02/11/2020 Other reaction(s): Elevated CPK Medications allopurinol (ZYLOPRIM) 300 MG tablet Take 1 tablet by mouth 1 (one) time each day Active metoprolol succinate XL (TOPROL XL) 50 MG 24 hr tablet Take 1 tablet by mouth 1 (one) time each day Active magnesium oxide (MAG-OX) 400 MG tablet Take 3 tablets by mouth 1 (one) time each day 10/28/2020 Active FeroSul 325 (65 Fe) MG tablet Take 1 tablet by mouth 2 (two) times a day 10/28/2020 Active ascorbic acid (VITAMIN C) 500 MG tablet Take 500 mg by mouth 2 (two) times a day 10/28/2020 Active calcium carbonate-vitam in D (Calcium 500 + D) 500-125 MG-UNIT per tablet Take 1 tablet by mouth 2 (two) times a day Active torsemide (DEMADEX) 20 MG tablet Take 2 tablets (40 mg total) by mouth 1 (one) time each day 120 tablet 5 10/12/2021 Active Oyster Shell Calcium + D3 500-400 MG-UNIT per tablet Take 1 tablet by mouth 2 (two) times a day 10/05/2021 Active lisinopril 5 MG tablet Take 1 tablet (5 mg total) by mouth 1 (one) time each day 30 tablet 3 11/01/2021 Active allopurinol (ZYLOPRIM) 100 MG tablet Take 1 tablet by mouth 1 (one) time each day 04/06/2022 Active rosuvastatin (CRESTOR) 5 MG tablet Take 5 mg by mouth at bed time 04/06/2022 Active spironolactone (ALDACTONE) 25 MG tablet Take 25 mg by mouth 1 (one) time each day 04/06/2022 Active Active Problems Problem Noted Date Diagnosed Date Fall 11/07/2022 Acquired lymphedema of lower extremity Chronic liver disease 10/13/2022 Overview (11/07/2022): Last Assessment & Plan: -multifactorial: Excessive alcohol intake; obesity -recent abdominal CT showed splenomegaly and fatty liver -continue working on risk factor management Deep venous thrombosis 10/13/2022 Overview (11/07/2022): Last Assessment & Plan: -Dx May 2018 -Treated with Xarelto from May 2018 to January 2019 Hematoma of subdural space of neuraxis 3 Overview (11/07/2022): Last Assessment & Plan: -Per documentation, it was a mechanical fall, yet under influence of alcohol -1st fall at [employer] [facility] [employer] on 09/21/22. Witnessed seizure. Head CT showed moderate subgaleal hematoma, scalp wound was sutured -2nd fall during the hospitalization Head CT showed a new small subdural hematoma -3rd and 4th falls at home on 10/02/[address] showed b/l subdural hematoma and right occipital hematoma -Evaluated by neurosurgeon -Follow up in [address] History of disorder of soft tissue 10/13/2022 History of renal dialysis 10/13/2022 Hypomagnesemia 10/13/2022 Iron deficiency anemia 10/13/2022 Overview (11/07/2022): Last Assessment & Plan: -Received Venfor IV 300 mg x 2 during 1st hospitalization in [facility] in Sep 2022 -Continue follow-up with internet marketing consultant Other dietary vitamin B12 deficiency anemia 09/20 Overview (11/07/2022): Last Assessment & Plan: -likely nutritional and excessive alcohol consumption -continue vitamin supplementation Stasis dermatitis 10/13/2022 Overview (11/07/2022): Last Assessment & Plan: -Recurrent -s/p cellulitis / sepsis, 12/17/19-12/21/19, requiring hospitalization and IV Zosyn, vanco, and linezolid, switched to doxycyline PO. -s/p cellulitis requiring hospitalization and IV antibiotic 06/05/19-06/09/19 -s/p right GSV ablation on 06/24/19 -s/p left GSV ablation in Aug 2018 -following with [facility] wound care clinic, periodically when he has open wounds. -Last seen by [facility] Wound care in October 2021 -usually discharged to visiting nurse wound care service -continue compression stockings and leg elevation -reviewed si/sx to seek a prompt medical attention -advised to monitor closely and treat proactively Splenomegaly 10/13/2022 Thyroid nodule 10/13/2022 Overview (11/07/2022): Last Assessment & Plan: -09/21/22 Head/neck CT showed 3.6 cm right thyroid nodule -Evaluate with US Stage 3a chronic kidney disease 05/09/2022 Hypertension 11/01/2021 Acute nontraumatic kidney injury 11/08/2020 Cellulitis 11/08/2020 Chronic kidney disease, stage 2 (mild) Essential hypertension 11/08/2020 Gout 11/08/2020 Rhabdomyolysis 11/08/2020 Anemia 01/15/2018 Overview (11/07/2022): Last Assessment & Plan: -multifactorial - nutritional, CKD -following with [facility] internet marketing consultant Aneurysm of ascending aorta 05/29/2016 Overview (11/07/2022): Last Assessment & Plan: -Most recent echo on 04/12/21, EF 60-65%, dilated ascending aorta 41mm -Echo on 04/05/20, EF 55-60%, dilated ascending aorta 42 mm, -Echo on 04/01/19 EF 60-65%, Aortic root dimension 37~43mm -Seen by his sports teacher, Dr. Claudio on n 07/11/22 -Pt advised to check next Cardiogram appt -Work on risk factor management Acquired deviated nasal septum 04/25/2016 Steatohepatitis 12/27/2015 Alcohol use disorder, moderate 09/06/2015 Overview (11/07/2022): Last Assessment & Plan: -He had at least 5 significant falls since Jul 2022. Although falls are described as mechanical falls, he was under the influence of alcohol for all occasions -10/02/22 BAL 199 mg/dl -He had subdural hematoma -Section 35 was attempted; but pt was deemed not an imminent danger to himself Obesity 09/06/2015 Calcaneal spur 07/21/2014 Obstructive sleep apnea syndrome 07/21/2014 Overview (11/07/2022): Last Assessment & Plan: -Improve adherence to CPAP -Consider referring to sleep medicine clinic Immunizations Name Administration Dates Next Due Influenza Split 06/04/2013,07/21/2012 Influenza, Quadrivalent, Pre servative Free 05/01/2022,07/20/2021,06/03/2019,08/01 Influenza, Quadrivalent, Wit h Preservative 06/11/2018,05/30/2015 Moderna SARS-COV-2 07/19/2021,12/19/2020, 021 Pfizer SARS-COV-2 02/09/2022 Pneumococcal Polysaccharide 07/25/2018, 4 Shingrix 06/12/2022,04/09/2022 Td 08/19/2008 Tdap 07/28/2022,07/21/2014 Family History Medical History Relation Comments Hypertension Mother grandmother Relation Status Comments Mother Social History Tobacco Use Types Packs/Day Years Used Date Smoking Tobacco: Never Smokeless Tobacco: Never Tobacco Cessation:Counseling Given: Not Answered Alcohol Use Standard Drinks/Week Comments Yes 0 (1 standard drink = 0.6 oz pure alcohol) Alcoholic Drinks/day: 1-2 drinks per day Sex and Gender Information Value Date Recorded Sex Assigned at Not on file Legal Sex Male 4:51 PM EST Gender Identity Not on file Sexual Orientation Not on file Last Filed Vital Signs Vital Sign Reading Time Taken Comments Blood Pressure 120/78 11/07/2022 2:18 PM EDT Pulse 86 11/07/2022 2:18 PM EDT Temperature - - Respiratory Rate - - Oxygen Saturation 95% 05/03/2021 3:04 PM EDT Inhaled Oxygen Concentration - - Weight 109 kg (239 lb 9.6 oz) 11/07/2022 2:18 PM EDT Height 170.2 cm (5' 7 ) 01/20/2020 12:00 PM EDT Body Mass Index 37.53 01/20/2020 12:00 PM EDT Plan of Treatment Health Maintenance Due Date Last Done Comments Colorectal Cancer Screening: Annual FOBT 2010 Colorectal Cancer Screening: Colonoscopy 2010 Colorectal Cancer Screening: Sigmoidoscopy 2010 Pneumococcal Vaccine: Pediatrics (0 to 5 Years) and At-Risk Patients (6 to 64 Years) (3 of 3 - PCV) 07/25/2019 07/25/2018, 07/21/2014 Influenza Vaccine (#1) 2024 2, 07/20/2021, 06/03/2019, Additional history exists Hepatitis B Vaccine Aged Out No longe r eligible based on patient's age to complete this topic [place] Care Teams Crystalizer Operator Relationship Specialty Start Date End Date Samantha Gonzales MD PCP - General 08/29/20
--- OUTSIDE RECORDS SUMMARY | 2024-09-11 14:12 | XMS_ITS | Encounter Summary ---
Author Organization [employer] Address [address] [place] [address] 7t [place] [address] Care Team Providers Care Grade Tamper Name Role Phone Samantha Gonzales MD Primary Care Provider [phone] Encounter Details Date Type Department Care Team (Late Contact Info) Description 12/17/2022 Abstract [facility] [address] [place] [address] [phone] Zee Szymanski MD [address] [place] [address] [phone] Social History Tobacco Use Types Packs/Day Years [...] suspected to have Coronavirus/COVID-19? No / Unsure 12/14/2022 1:03 PM EDT documented as of this encounter Plan of Treatment Upcoming Encounters Date Type Department Care Team (Late Contact Info) Description 09/11/2024 2:15 PM EST Office Visit [facility] [address] [place], [place] [phone] Kerwin Mendoza MD [address] [place] [address] Arrived 10/08/2024 11:00 AM EST Office Visit [facility] [address] [facility] [address] Samantha Gonzales MD [address] [place] [address] documented as of this encounter Visit Diagnoses Not on filedocumented in this encounter Additional Health Concerns Assessment Noted Time PHQ-9 Depression Total Score: 3 12/15/19 23 1:37 PM EDT documented as of this encounter Care Teams Grade Tamper Relationship Specialty Start Date End Date Samantha Gonzales MD [address] [facility] [address] PCP - General Family Medicine 07/09/13 [facility] 05/17/24 documented as of this encounter
--- OUTSIDE RECORDS SUMMARY | 2024-09-11 14:12 | XMS_ITS | Encounter Summary ---
Author Organization [employer] Address [address] [facility] 7t [place] [address] Care Team Providers Care Independent Living Advisor Name Role Phone Samantha Gonzales MD Primary Care Provider [phone] Reason for Visit * Reason Onset Date Comments OV 01/2601/24/2024 Encounter Details Date Type Department Care Team ([facility] st Contact Info) Description 01/24/2024 Telephone [facility] [address] [place], [place] [phone] Samantha Gonzales MD [address] [place], [place] [phone] OV 01/26 Social History Tobacco Use Types Packs/Day Years Used Date Smoking Tobacco: Never Passive Smoke Exposure: Never Smokeless Tobacco: Never Alcohol Use Standard Drinks/Week Comments Yes 0 (1 standard drink = 0.6 oz pur e alcohol) Depression Answer Date Recorded Patient Health Questionnaire-9 Score 3 12/14/2022 Housing Stability Answer Date Recorded What is [...] encounter Miscellaneous Notes * Telephone Encounter - Mauricio Jarred - 01/24/2024 1:58 PM EDT Tc from pt called in to cancel OV for 01/26. Pt state he is currently in rehab in [place] and due to a set back pt does not have any transportation to make it to [place] on Saturday. If any questions please contact pt at [phone]. documented in this encounter Plan of Treatment Upcoming Encounters Date Type Department Care Team (Late st Contact Info) Description 09/11/2024 2:15 PM EST Office Visit [address] [address] Kerwin Mendoza MD [address] [place] [address] Arrived 10/08/2024 11:00 AM EST Office Visit [address] [address] Samantha Gonzales MD [address] [place] [address] documented as of this encounter Visit Diagnoses Not on filedocumented in this encounter Additional Health Concerns Assessment Noted Time PHQ-9 Depression Total Score: 3 12/15/19 23 1:37 PM EDT documented as of this encounter Care Teams Independent Living Advisor Relationship Specialty Start Date End Date Samantha Gonzales MD [address] [place] [phone] PCP - General Family Medicine 07/09/13 [facility] 05/17/24 documented as of this encounter
--- OUTSIDE RECORDS SUMMARY | 2024-09-11 14:12 | XMS_ITS ---
Author Organization [facility] Address [address] [place] [address] Care Team Providers Care Associate Professor Of Library Media Name Role Phone Janet SYLVESTER, Samantha Primary Care Provider rEic Flores [phone] REASON FOR VISIT ov appt Encounters Encounter Location Date Provider Diagnosis [facility] [address] [place] [address] 12/26/2023 Eric Lenz PLAN OF TREATMENT No Information
--- OUTSIDE RECORDS SUMMARY | 2024-09-11 14:12 | XMS_ITS | Encounter Summary ---
Author Organization [employer] Address [address] [facility] [address]t [place] [address] Care Team Providers Care Flatwork Finisher Hand Name Role Phone Samantha Gonzales MD Primary Care Provider [phone] Reason for Visit * Reason Comments Care Coordination outreach Encounter Details Date Type Department Care Team (Latest Contact Info) Description 09/08/2024 Patient Outreach [facility] MED & PEDS [address] [place], [place] [phone] Samantha Gonzales MD [address], [place] [phone] Care Coordination (outreach) Social History Tobacco Use Types Packs/Day Years [...] encounter Progress Notes * Tosha Newby - 09/08/2024 10:12 AM EST CHW Tosha Newby , placed outbound call to patient in regards to offer services. CHW introducing herself from [facility] CM Department with CHW's name, department and direct contact [phone] requesting call back. Will re-attempt to contact within 5 days. and address not confirmed. documented in this encounter Plan of Treatment Upcoming Encounters Date Type Department Care Team (Late st Contact Info) Description 09/11/2024 2:15 PM EST Office Visit [facility] MEDICINE [address] [place] [phone] Kerwin Mendoza MD [address] [place] [address] Arrived 10/08/2024 11:00 AM EST Office Visit [facility] MEDICINE [address] [place] [address] [phone] Samantha Gonzales MD [address] [place] [address] documented as of this encounter Visit Diagnoses Not on filedocumented in this encounter Additional Health Concerns Assessment Noted Time PHQ-9 Depression Total Score: 0 06/25/20 11:09 AM EST documented as of this encounter Care Teams Flatwork Finisher Hand Relationship Specialty Start Date End Date Samantha Gonzales MD [address] [place] [address] PCP - General Family Medicine 07/09/13 [facility] 05/17/24 documented as of this encounter
--- OUTSIDE RECORDS SUMMARY | 2024-09-11 14:12 | XMS_ITS | Encounter Summary ---
Author Organization [employer] Address [address] [facility] 7t [place] [address] Care Team Providers Care Store Gift Wrap Associate Name Role Phone Samantha Gonzales MD Primary Care Provider [phone] Reason for Visit * Reason Comments Recovery Supports Encounter Details Date Type Department Care Team ([facility] st Contact Info) Description 09/03/2024 Patient Outreach [facility] MEDICINE [address] [place], [place] [phone] Brandon Hargrove [address] [place] [address] Recovery Supports Social History Tobacco Use Types Packs/Day Years [...] as of this encounter Progress Notes * Brandon Hargrove - 09/03/2024 2:31 PM EST I met with Mohan cheek. Setting: in person at [facility] Recovery Wellness Goals worked on: Physical Health/Mental Health Action taken/next steps: Provided transportation assistance (bus pass, uber, etc.) and Referred to detox/another level of care Additional comments: Admitted to [facility] documented in this encounter Plan of Treatment Upcoming Encounters Date Type Department Care Team (Late st Contact Info) Description 09/11/2024 2:15 PM EST Office Visit [facility] MEDICINE [address] [place] [address] Kerwin Mendoza MD [address] [place] [address] Arrived 10/08/2024 11:00 AM EST Office Visit [facility] MEDICINE [address] [place] [phone] Samantha Gonzales MD [address] [place] [address] documented as of this encounter Visit Diagnoses Not on filedocumented in this encounter Additional Health Concerns Assessment Noted Time PHQ-9 Depression Total Score: 0 06/25/20 11:09 AM EST documented as of this encounter Care Teams Store Gift Wrap Associate Relationship Specialty Start Date End Date Samantha Gonzales MD [address] [place] [address] PCP - General Family Medicine 07/09/13 [facility] 05/17/24 documented as of this encounter
--- OUTSIDE RECORDS SUMMARY | 2024-09-11 14:12 | XMS_ITS | Encounter Summary ---
Author Organization [employer] Address [address] [place] [address] 7t [place] [address] Care Team Providers Care Code Machine Operator Name Role Phone Samantha Gonzales MD Primary Care Provider [phone] Reason for Referral * Imaging (Routine) - Closed Specialty Diagnoses / Procedures Referred By Mildred silva Referred To Contact Diagnoses Thyroid nodule Procedures US Guided Thyroid Biopsy Samantha Gonzales MD [address] [place] [address] Phone: tel: fax: [address] Phone: tel: fax: Referral ID Status Reason Start Date Expiration Date Visits Re quested Visits Authorized [id number] Closed 11/14/2022 05/13/2023 1 1 Encounter Details Date Type Department Care Team ([facility] st Contact Info) Description 11/14/2022 Orders Only [facility] MEDICINE [address] [place], [place] [phone] Samantha Gonzales MD [address] [place], [place] [phone] Thyroid nodule (Primary Dx) Social History Tobacco Use Types Packs/Day Years Used Date Smoking Tobacco: Never Assessed Sex and Gender Information Value Date Recorded Sex Assigned at Male 06/18/2022 10:17 AM EDT Legal Sex Male 10:17 AM EDT Gender Identity Male 06/18/2022 10:17 AM EDT Sexual Orientation Straight 06/18/2022 10 :17 AM EDT documented as of this encounter Plan of Treatment Upcoming Encounters Date Type Department Care Team (Late st Contact Info) Description 09/11/2024 2:15 PM EST Office Visit [address] [address] Kerwin Mendoza MD [address] [place] [address] Arrived 10/08/2024 11:00 AM EST Office Visit [address] [address] Samantha Gonzales MD [address] [place] [address] Scheduled Orders Name Type Priority Associated Diagnoses Orde r Schedule US Guided Thyroid Biopsy Imaging Routine Thyroid nodule Expected: 11/14/2022 (Approximate), Expires: 11/15/2023 documented as of this encounter Visit Diagnoses Diagnosis Thyroid nodule- Primary Nontoxic uninodular goiter documented in this encounter Care Teams Code Machine Operator Relationship Specialty Start Date End Date Samantha Gonzales MD [address] [place] [phone] PCP - General Family Medicine 07/09/13 [facility] 05/17/24 documented as of this encounter
--- OUTSIDE RECORDS SUMMARY | 2024-09-11 14:12 | XMS_ITS | Encounter Summary ---
Author Organization [employer] Address [address] [place] [address] 7t [place] [address] Care Team Providers Care Grain Trimmer Name Role Phone Samantha Gonzales MD Primary Care Provider [phone] Reason for Visit * Reason Onset Date Comments urgent matter 10/10/2022 Encounter Details Date Type Department Care Team ([facility] st Contact Info) Description 10/10/2022 Telephone [facility] MEDICINE [address] [place], [place] [phone] Samantha Gonzales MD [address] [place], [place] [phone] urgent matter Social History Tobacco Use Types Packs/Day Years Used Date Smoking Tobacco: Never Assessed Sex and Gender Information Value Date Recorded Sex Assigned at Male 06/18/2022 10:17 AM EDT Legal Sex Male 10:17 AM EDT Gender Identity Male 06/18/2022 10:17 AM EDT Sexual Orientation Straight 06/18/2022 10 :17 AM EDT documented as of this encounter Miscellaneous Notes * Telephone Encounter - Samantha Gonzales MD - 10/11/2022 9:16 AM EST Spoke with Karyn. Attended the court. Assistant Executive Housekeeper did not agree with [address] * Telephone Encounter - Luz Elena Ball Robert - 10/10/2022 1:58 PM EST Tc from Karyn with [facility] regarding to pt. Karyn states that is an urgent matter regarding to [address] and will need to speak with PCP, regarding the matter to set up a zoom meeting with PCP and the court. Lens Blank Gauger contacted PCP in advise epic chat, and let PCP know what's going on. Please contact Karyn at [phone] documented in this encounter Plan of Treatment Upcoming Encounters Date Type Department Care Team (Late st Contact Info) Description 09/11/2024 2:15 PM EST Office Visit [facility] MEDICINE [address] [place] [phone] Kerwin Mendoza MD [address] [place] [address] Arrived 10/08/2024 11:00 AM EST Office Visit [address] [address] Samantha Gonzales MD [address] [place] [address] documented as of this encounter Visit Diagnoses Not on filedocumented in this encounter Care Teams Grain Trimmer Relationship Specialty Start Date End Date Samantha Gonzales MD [address] [place] [phone] PCP - General Family Medicine 07/09/13 [facility] 05/17/24 documented as of this encounter
--- OUTSIDE RECORDS SUMMARY | 2024-09-11 14:12 | XMS_ITS ---
Author Organization [facility] Address [address] [place] [phone] Care Team Providers Care Correspondence Section Supervisor Name Role Phone Janet SYLVESTER, Samantha Primary Care Provider Eric Flores [phone] REASON FOR VISIT Needs OV PROBLEMS Problem Type ICD Code Onset Dates Problem Status W/U Status Risk SNOMED Code Notes Problem Anemia (D64.9) Active confirmed Anemia (060832615) Encounters Encounter Location Date Provider Diagnosis [facility] [address] [place] [address] 10/06/2023 Eric Lenz Anemia D64.9 ASSESSMENTS Encounter Date Diagnosis Assessment Notes Treatment Notes Treatment Clinical Notes 10/06/2023 Anemia (ICD-10 - D64.9) PLAN OF TREATMENT Pending Test Test Name Order Date IRON + IBC (FE) 10/06/2023 CBC w DIFF 10/06/2023 Ferritin 10/06/2023 Folate 10/06/2023
--- OUTSIDE RECORDS SUMMARY | 2024-09-11 14:12 | XMS_ITS | Clinical Summary ---
Author Organization [employer] Address [address] [facility] [address] [place] [address] Care Team Providers Care [employer] Name Role Phone Samantha Gonzales MD Primary Care Provider [phone] Allergies Active Allergy Reactions Criticality Noted Date Comments Azithromycin Swelling High 08/26/2023 Hydrochlorothiazide Swelling 01/29/2012 Statins 02/11/2020 Other reaction(s): Elevated CPK Medications * This document contains information received from the source organization and may not represent a complete record from that organization. acetaminophen (Tylenol) 325 MG tablet Take 2 tablets by mouth every 4 (four) hours if needed for moderate pain. 10/07/19 23 Active folic acid (Folvite) 1 MG tablet Take 1 tablet (1 mg) by mouth in the morning. 90 tablet 3 11/27/19 23 Active Ascorbic Acid (vitamin C) 500 MG tablet TAKE 1 TABLET BY MOUTH TWICE A DAY 180 tablet 10/04/19 24 Active allopurinol (Zyloprim) 300 MG tabletIndicati ons:History of gout TAKE 1 TABLET BY MOUTH EVERY MORNING 90 tablet 10/04/19 24 Active rosuvastatin (Crestor) 5 MG tablet TAKE 1 TABLET BY MOUTH AT BEDTIME 90 tablet 10/04/19 24 Active omeprazole (PriLOSEC) [address] capsule TAKE 1 CAPSULE BY MOUTH EVERY DAY AT 630 IN THE MORNING FOR 28 DAYS 10/02/19 24 Active ferrous sulfate 324 (65 Fe) MG EC tablet Take 324 mg by mouth with breakfast and with evening meal. 10/02/19 24 Active hydrocortisone 1 % cream Apply topically to affected area once or twice daily 120 g 2 06/25/20 24 Active magnesium oxide (Mag-Ox) 400 MG tabletIndicati ons:Hypomagnes emia TAKE 1 TABLET BY MOUTH tid 90 tablet 3 07/02/20 24 Active cholecalcifero l (Vitamin D-3) 50 MCG (1999 UT) tablet Take 1 tablet by mouth Once per day. 08/21/19 25 025 Active Multiple Vitamins-Certified Surgical First Assistant als (multivitamin with minerals) tablet Take 1 tablet by mouth Once per day. 08/21/19 25 Active pyridoxine (B-6) 50 MG tablet Take 1 tablet by mouth Once per day. 08/21/19 25 025 Active metoprolol succinate XL (Toprol-XL) 25 MG 24 hr tablet Take 1 tablet by mouth Once per day. Do not crush or chew. Active Emollient (Eucerin Advanced Repair) creamIndicatio ns:Acquired lymphedema of lower extremity Apply 4 g topically 2 times daily. 454 g 11 09/03/19 25 Active Lidocaine 5 % creamIndicatio ns:Localized pain of left shoulder joint Apply topically bid 30 g 3 09/11/19 25 Active metoprolol succinate XL (Toprol-XL) 50 MG 24 hr tablet Take 1.5 tablets by mouth 1 (one) time each day. 06/12/20 025 Discontinued(Me d list cleanup (will not trigger notification to Pharmacy)) torsemide (Demadex) 20 MG tablet Take 2 tablets by mouth 1 (one) time each day. 06/12/20 025 Discontinued(Me d list cleanup (will not trigger notification to Pharmacy)) Multiple Vitamin (Daily-Gene) tablet Take 1 tablet by mouth 1 (one) time each day. 10/07/19 23 025 Discontinued(Me d list cleanup (will not trigger notification to Pharmacy)) spironolactone (Aldactone) 25 MG tablet TAKE 1 TABLET BY MOUTH EVERY DAY 90 tablet 10/04/19 24 025 Discontinued(Me d list cleanup (will not trigger notification to Pharmacy)) Active Problems Problem Noted Date Diagnosed Date Localized pain of right shoulder joint 5 Assessment & Plan (09/11/2024 1:27 PM EST): Pain since yesterday with worsening ROM over the past day. Tried Tylenol without relief. -prescribed lidocaine cream -ordered right shoulder XR -referred to orthopedics Addendum 09/11/24 1:26 PM Xray IMPRESSION: No acute findings left shoulder. Suspect inflammatory in nature. Given unable to move, will send to orthopedics due to will be unable to tolerate PT. Pt has one kidney, avoid NSAIDS. Abdominal pain 01/23/2024 Acute hypokalemia 01/23/2024 Cellulitis of hand 01/23/2024 Cellulitis of right lower leg 01/23/2024 Chronic venous stasis 01/23/2024 Closed head injury 01/23/2024 Colitis 01/23/2024 Concussion with loss of consciousness 01/23/2024 Hip pain, right 01/23/2024 Knee pain, right 01/23/2024 Injury of nose 01/23/2024 Laceration of scalp 01/23/2024 Nonhealing nonsurgical wound 01/23/2024 Assessment & Plan (06/25/2024 12:16 PM EST): - surgical site from nephrectomy - scheduled follow-up appointment with urologist on 07/09/24. - patient also seems to have reaction to tapes for dressing. Will change dressing tape and apply barrier cream. - consider wound care referral if no improvement Renal mass 01/23/2024 Weakness 01/23/2024 Renal cell cancer, left 07/25/2023 Assessment & Plan (06/25/2024 12:11 PM EST): -09/21/[address] showed 2.3 cm lesion on the upper pole of left kidney; MRI was recommended -MRI 12/27/22 showed a lesion suspicious for renal cell carcinoma -s/p left nephrectomy on 12/17/23 Assessment & Plan (11/25/2023 8:31 AM EDT): -09/21/[address] showed 2.3 cm lesion on the upper pole of left kidney; MRI was recommended -MRI 12/27/22 showed a lesion suspicious for renal cell carcinoma -Pt was seen by Dr. Sow on 06/11/23. Renal biopsy was recommended. -His surgery has been postponed several times. Now scheduled for nephrectomy, rather than biopsy, on 12/17/23 Assessment & Plan (07/26/2023 2:11 PM EST): -09/21/[address] showed 2.3 cm lesion on the upper pole of left kidney; MRI was recommended -MRI 12/27/22 showed a lesion suspicious for renal cell carcinoma -Pt was seen by Dr. Sow on 06/11/23. Renal biopsy was recommended. -Called the office during this visit; the office will call him back with appt date Dyslipidemia 05/26/2023 Assessment & Plan (06/25/2024 12:16 PM EST): - current medication: rosuvastatin 5 mg at bedtime - last lipid profile: 01/28/23 - continue working on lifestyle modficiation Assessment & Plan (05/26/2023 6:56 AM EDT): - current medication: rosuvastatin 5 mg at bedtime - last lipid profile: 01/28/23 - continue working on lifestyle modficiation Rash of both hands 01/23/2023 Overview (01/23/2023): - dorsal aspect - ?contact dermatitis / irritant dermatitis - continue investigating offending agent in case it is contact dermatitis or allergy - apply cream Thrombocytopenia 11/26/2022 Assessment & Plan (01/23/2023 4:06 PM EDT): Likely due to Liver Disease Periodic lab Reduce alcohol consumption Assessment & Plan (11/26/2022 9:52 AM EDT): Likely due to Liver Disease Acute right ankle pain 11/26/2022 Assessment & Plan (11/26/2022 9:39 AM EDT): Possibly Gout -will evaluate with XR -apply ice -elevate ankle, above heart level -continue judicious use of tylenol -return to office if symptoms worsen or persist Alcoholic liver disease 11/26/2022 Thyroid nodule incidentally noted on imaging ramana dy 10/13/2022 Assessment & Plan (01/23/2023 4:05 PM EDT): -09/21/22 Head/neck CT showed 3.6 cm right thyroid nodule -11/05/22 Thyroid US showed heterogeneous multiple bilateral nodules. FNA was recommended for a nodule in the lower pole of R thyroid -FNA showed no malignancy Assessment & Plan (11/26/2022 9:42 AM EDT): -09/21/22 Head/neck CT showed 3.6 cm right thyroid nodule -11/05/22 Thyroid US showed heterogeneous multiple bilateral nodules. FNA was recommended for a nodule in the lower pole of R thyroid Recommended biopsy -Biopsy was ordered, will check status of biopsy date. Assessment & Plan (10/13/2022 5:14 PM EST): -09/21/22 Head/neck CT showed 3.6 cm right thyroid nodule -Evaluate with US Subdural hematoma 10/13/2022 Assessment & Plan (11/30/2022 6:18 AM EDT): -Per documentation, it was a mechanical fall, [...] and right occipital hematoma -Evaluated by neurosurgeon in the hospital, but missed outpatient follow-up -CT on 11/12/22 showed resolved hematoma Assessment & Plan (10/13/2022 5:41 PM EST): -Per documentation, it was a mechanical fall, [...] -Follow up in [address] Splenomegaly 10/13/2022 Chronic liver disease 10/13/2022 Assessment & Plan (11/25/2023 8:30 AM EDT): -multifactorial: Excessive alcohol intake; obesity -recent abdominal CT showed splenomegaly and fatty liver -recent lab shows thrombocytopenia -continue working on risk factor management -patient states he was seen by Dr. Lenz Assessment & Plan (05/26/2023 6:49 AM EDT): -multifactorial: Excessive alcohol intake; obesity -recent abdominal CT showed splenomegaly and fatty liver -recent lab shows thrombocytopenia -continue working on risk factor management - referred to GI. Pt called, but still waiting for an appt Assessment & Plan (04/25/2023 10:42 AM EDT): -multifactorial: Excessive alcohol intake; obesity -recent abdominal CT showed splenomegaly and fatty liver -recent lab shows thrombocytopenia -continue working on risk factor management - referred to GI. Pt called, but still waiting for an appt Assessment & Plan (01/23/2023 4:00 PM EDT): -multifactorial: Excessive alcohol intake; obesity -recent abdominal CT showed splenomegaly and fatty liver -recent lab shows thrombocytopenia -continue working on risk factor management - referred to GI. Pt called, but still waiting for an appt Assessment & Plan (11/30/2022 6:22 AM EDT): -multifactorial: Excessive alcohol intake; obesity -recent abdominal CT showed splenomegaly and fatty liver -recent lab shows thrombocytopenia -continue working on risk factor management - refer to GI Assessment & Plan (10/13/2022 5:14 PM EST): -multifactorial: Excessive alcohol intake; obesity -recent abdominal CT showed splenomegaly and fatty liver -continue working on risk factor management Venous stasis dermatitis of both lower extremiti es 10/13/2022 Assessment & Plan (07/25/2023 6:23 AM EST): -Recurrent -s/p cellulitis / sepsis, 12/17/19-12/21/19, requiring hospitalization and IV Zosyn, vanco, and linezolid, switched to doxycyline PO. -s/p cellulitis requiring hospitalization and IV antibiotic 06/05/19-06/09/19 -s/p right GSV ablation on 06/24/19 -s/p left GSV ablation in Aug 2018 ?? -following with [facility] wound care clinic, periodically when he has open wounds. -Last seen by [facility] Wound care in October 2021 -usually discharged to visiting nurse wound care service -continue compression stockings and leg elevation -reviewed si/sx to seek a prompt medical attention -advised to monitor closely and treat proactively Assessment & Plan (05/26/2023 6:50 AM EDT): -Recurrent -s/p cellulitis / sepsis, 12/17/19-12/21/19, requiring hospitalization and IV Zosyn, vanco, and linezolid, switched to doxycyline PO. -s/p cellulitis requiring hospitalization and IV antibiotic 06/05/19-06/09/19 -s/p right GSV ablation on 06/24/19 -s/p left GSV ablation in Aug 2018 ?? -following with [facility] wound care clinic, periodically when he has open wounds. -Last seen by [facility] Wound care in October 2021 -usually discharged to visiting nurse wound care service -continue compression stockings and leg elevation -reviewed si/sx to seek a prompt medical attention -advised to monitor closely and treat proactively Assessment & Plan (01/23/2023 4:05 PM EDT): -Recurrent -s/p cellulitis / sepsis, 12/17/19-12/21/19, requiring hospitalization and IV Zosyn, vanco, and linezolid, switched to doxycyline PO. -s/p cellulitis requiring hospitalization and IV antibiotic 06/05/19-06/09/19 -s/p right GSV ablation on 06/24/19 -s/p left GSV ablation in Aug 2018 -following with [facility] wound care clinic, periodically when he has open wounds. -Last seen by [facility] Wound care in October 2021 -usually discharged to visiting nurse wound care service -continue compression stockings and leg elevation -reviewed si/sx to seek a prompt medical attention -advised to monitor closely and treat proactively Assessment & Plan (11/30/2022 6:22 AM EDT): -Recurrent -s/p cellulitis / sepsis, 12/17/19-12/21/19, requiring hospitalization and IV Zosyn, vanco, and linezolid, switched to doxycyline PO. -s/p cellulitis requiring hospitalization and IV antibiotic 06/05/19-06/09/19 -s/p right GSV ablation on 06/24/19 -s/p left GSV ablation in Aug 2018 -following with [facility] wound care clinic, periodically when he has open wounds. -Last seen by [facility] care in October 2021 -usually discharged to visiting nurse wound care service -continue compression stockings and leg elevation -reviewed si/sx to seek a prompt medical attention -advised to monitor closely and treat proactively Assessment & Plan (10/13/2022 5:06 PM EST): -Recurrent -s/p cellulitis / sepsis, 12/17/19-12/21/19, requiring hospitalization and IV Zosyn, vanco, and linezolid, switched to doxycyline PO. -s/p cellulitis requiring hospitalization and IV antibiotic 06/05/19-06/09/19 -s/p right GSV ablation on 06/24/19 -s/p left GSV ablation in Aug 2018 -following with [facility] wound care clinic, periodically when he has open wounds. -Last seen by [facility] in October 2021 -usually discharged to visiting nurse wound care service -continue compression stockings and leg elevation -reviewed si/sx to seek a prompt medical attention -advised to monitor closely and treat proactively Acquired lymphedema of lower extremity 3 History of deep venous throm bosis (DVT) of distal vein of left lower extremity 10/13/2022 Assessment & Plan (10/13/2022 4:49 PM EST): -Dx May 2018 -Treated with Xarelto from May 2018 to January 2019 History of rhabdomyolysis 10/13/2022 Assessment & Plan (11/26/2022 9:38 AM EDT): Mild swelling -Pt ran out of gout medication, will refill today History of renal dialysis 10/13/2022 Hypomagnesemia 10/13/2022 Assessment & Plan (06/25/2024 12:14 PM EST): - 01/28/23 Magnesium 1.1 - On magnesium oxide supplementation, but pt is frequently having diarrhea - following with memory care program resident - dehydration due to diarrhea on 04/25/23, IVF with Mg given in ED - recheck Assessment & Plan (05/26/2023 6:52 AM EDT): - 01/28/23 Magnesium 1.1 - On magnesium oxide supplementation, but pt is frequently having diarrhea - following with memory care program resident - dehydration due to diarrhea on 04/25/23, IVF with Mg given in ED - recheck Assessment & Plan (04/25/2023 12:51 PM EDT): - 01/28/23 Magnesium 1.1 - On magnesium oxide supplementation, but pt is frequently having diarrhea - following with memory care program resident - dehydration due to diarrhea today; anticipate hypomagnesemia again -> sending ER for replacement Assessment & Plan (01/23/2023 4:07 PM EDT): [facility] Hospitalization on 10/30 - 11/02 Lab showed hypomagnesemia and thrombocytopenia Pt is prescribed magnesium supplement; encouraged to improve adherence Pt is advised to hold when he is having diarrhea Assessment & Plan (11/30/2022 6:23 AM EDT): [facility] Hospitalization on 10/30 - 11/02 Lab showed hypomagnesemia and thrombocytopenia Pt is prescribed magnesium supplement; encouraged to improve adherence Stage 2 chronic kidney disease 10/13/2022 Assessment & Plan (07/26/2023 2:10 PM EST): -Therapeutic Strategy Lead: Dr. Kennedy, last appt in Sep 2021 -Hx rhabdomyolysis, on hemodialysis for 1 month in November 2017 - December 2017 -His renal funciton was CKDII level [id number] -Most recent POLLY in Sep 2022, both admission, held lisinopril, spironolactone, and torsemide during 1st admission, and resumed upon discharge -Last lab: 01/28/23 Sodium 135; Potassium 3.6 ; Chloride 99 ; Bicarb 24 ; Calcium 8.0; BUN 19 , Creatinine 1.02 ; EGFR 84 -Avoid nephrotoxic drugs -Continue renal dosing -On low dose lisinopril, will be changed to losartan Assessment & Plan (05/26/2023 6:49 AM EDT): -Therapeutic Strategy Lead: Dr. Kennedy, last appt in Sep 2021 -Hx rhabdomyolysis, on hemodialysis for 1 month in November 2017 - December 2017 -His renal funciton was CKDII level [id number] -Most recent POLLY in Sep 2022, both admission, held lisinopril, spironolactone, and torsemide during 1st admission, and resumed upon discharge -Last lab: 01/28/23 Sodium 135; Potassium 3.6 ; Chloride 99 ; Bicarb 24 ; Calcium 8.0; BUN 19 , Creatinine 1.02 ; EGFR 84 -Avoid nephrotoxic drugs -Continue renal dosing Assessment & Plan (04/25/2023 12:49 PM EDT): -Therapeutic Strategy Lead: Dr. Kennedy, last appt in Sep 2021 -Hx rhabdomyolysis, on hemodialysis for 1 month in November 2017 - December 2017 -His renal funciton was CKDII level [id number] -Most recent POLLY in Sep 2022, both admission, held lisinopril, spironolactone, and torsemide during 1st admission, and resumed upon discharge -Last lab: 01/28/23 Sodium 135; Potassium 3.6 ; Chloride 99 ; Bicarb 24 ; Calcium 8.0; BUN 19 , Creatinine 1.02 ; EGFR 84 -Avoid nephrotoxic drugs -Continue renal dosing Assessment & Plan (01/23/2023 4:04 PM EDT): -Therapeutic Strategy Lead: Dr. Kennedy, last appt in Sep 2021 -Hx rhabdomyolysis, on hemodialysis for 1 month in November 2017 - December 2017 -His renal funciton was CKDII level [id number] -Most recent POLLY in Sep 2022, both admission, held lisinopril, spironolactone, and torsemide during 1st admission, and resumed upon discharge -Last lab: 10/07/22 BUN 31; SCr 1.7, eGFR 47 (Apr 2023 eGFR > 60) -Avoid nephrotoxic drugs -Continue renal dosing Assessment & Plan (11/26/2022 9:32 AM EDT): -Therapeutic Strategy Lead: Dr. Kennedy, last appt in Sep 2021 -Hx rhabdomyolysis, on hemodialysis for 1 month in November 2017 - December 2017 -His renal funciton was CKDII level [id number] -Most recent POLLY in Sep 2022, both admission, held lisinopril, spironolactone, and torsemide during 1st admission, and resumed upon discharge -Last lab: 10/07/22 BUN 31; SCr 1.7, eGFR 47 (Apr 2023 eGFR > 60) -Avoid nephrotoxic drugs -Recheck lab -Will use renal dosing Assessment & Plan (10/13/2022 5:03 PM EST): -Therapeutic Strategy Lead: Dr. Kennedy, last appt in Sep 2021 -Hx rhabdomyolysis, on hemodialysis for 1 month in November 2017 - December 2017 -His renal funciton was CKDII level [id number] -Most recent POLLY in Sep 2022, both admission, held lisinopril, spironolactone, and torsemide during 1st admission, and resumed upon discharge -Last lab: 10/07/22 BUN 31; SCr 1.7, eGFR 47 (Apr 2023 eGFR > 60) -Avoid nephrotoxic drugs -Recheck lab -Will use renal dosing Other dietary vitamin B12 deficiency anemia 09/20 Assessment & Plan (06/25/2024 12:12 PM EST): -likely nutritional and excessive alcohol consumption -continue vitamin supplementation -currently receiving B12 IM from his customer complaint service supervisor, Dr. Peters Assessment & Plan (07/25/2023 6:24 AM EST): -likely nutritional and excessive alcohol consumption -continue vitamin supplementation -currently receiving B12 IM from his customer complaint service supervisor, Dr. Peters Assessment & Plan (10/13/2022 5:15 PM EST): -likely nutritional and excessive alcohol consumption -continue vitamin supplementation Iron deficiency anemia 10/13/2022 Assessment & Plan (07/25/2023 6:25 AM EST): -Received Venfor IV 300 mg x 2 during 1st hospitalization in [facility] in Sep 2022 -Continue follow-up with customer complaint service supervisor Assessment & Plan (10/13/2022 5:17 PM EST): -Received Venfor IV 300 mg x 2 during 1st hospitalization in [facility] in Sep 2022 -Continue follow-up with customer complaint service supervisor Anemia of chronic disease 10/13/2022 Assessment & Plan (06/25/2024 12:12 PM EST): - Both Iron and Vitamin-B12 deficiency, and anemia of chronic diseaes - followed by customer complaint service supervisor, Dr. Peters Assessment & Plan (07/26/2023 2:12 PM EST): - Both Iron and Vitamin-B12 deficiency, and anemia of chronic diseaes -followed by customer complaint service supervisor, Dr. Peters, last seen on 06/03/23 Assessment & Plan (05/26/2023 6:51 AM EDT): Both Iron and Vitamin-B12 deficiency -followed by customer complaint service supervisor Assessment & Plan (04/25/2023 10:40 AM EDT): Both Iron and Vitamin-B12 deficiency -followed by customer complaint service supervisor Assessment & Plan (01/23/2023 4:06 PM EDT): Both Iron and Vitamin-B12 deficiency -followed by customer complaint service supervisor Assessment & Plan (11/26/2022 9:51 AM EDT): Both Iron and Vitamin-B12 deficiency -followed by customer complaint service supervisor Assessment & Plan (10/13/2022 5:18 PM EST): -multifactorial - nutritional, CKD -following with [facility] customer complaint service supervisor Anemia 01/15/2018 Aneurysm of ascending aorta 05/29/2016 Assessment & Plan (11/12/2023 12:18 PM EDT): -Most recent echo on 04/12/21, EF 60-65%, dilated ascending aorta 41mm -Echo on 04/05/20, EF 55-60%, dilated ascending aorta 42 mm, -Echo on 04/01/19 EF 60-65%, Aortic root dimension 37~43mm -Seen by his flue cleaner, Dr. Claudio on 03/14/23 -Pt advised to check next Cardiogram appt which is in August 2023 -Work on risk factor management Assessment & Plan (07/25/2023 6:22 AM EST): -Most recent echo on 04/12/21, EF 60-65%, dilated ascending aorta 41mm -Echo on 04/05/20, EF 55-60%, dilated ascending aorta 42 mm, -Echo on 04/01/19 EF 60-65%, Aortic root dimension 37~43mm -Seen by his flue cleaner, Dr. Claudio on 03/14/23 -Pt advised to check next Cardiogram appt which is in August 2023 -Work on risk factor management Assessment & Plan (05/26/2023 6:48 AM EDT): -Most recent echo on 04/12/21, EF 60-65%, dilated ascending aorta 41mm -Echo on 04/05/20, EF 55-60%, dilated ascending aorta 42 mm, -Echo on 04/01/19 EF 60-65%, Aortic root dimension 37~43mm -Seen by his flue cleaner, Dr. Claudio on 03/14/23 -Pt advised to check next Cardiogram appt which is in August 2023 -Work on risk factor management Assessment & Plan (04/25/2023 10:42 AM EDT): -Most recent echo on 04/12/21, EF 60-65%, dilated ascending aorta 41mm -Echo on 04/05/20, EF 55-60%, dilated ascending aorta 42 mm, -Echo on 04/01/19 EF 60-65%, Aortic root dimension 37~43mm -Seen by his flue cleaner, Dr. Claudio on 03/14/23 -Pt advised to check next Cardiogram appt which is in August 2023 -Work on risk factor management Assessment & Plan (11/30/2022 6:19 AM EDT): -Most recent echo on 04/12/21, EF 60-65%, dilated ascending aorta 41mm -Echo on 04/05/20, EF 55-60%, dilated ascending aorta 42 mm, -Echo on 04/01/19 EF 60-65%, Aortic root dimension 37~43mm -Seen by his flue cleaner, Dr. Claudio on n 07/11/22 -Pt advised to check next Cardiogram appt -Work on risk factor management Assessment & Plan (10/13/2022 5:10 PM EST): -Most recent echo on 04/12/21, EF 60-65%, dilated ascending aorta 41mm -Echo on 04/05/20, EF 55-60%, dilated ascending aorta 42 mm, -Echo on 04/01/19 EF 60-65%, Aortic root dimension 37~43mm -Seen by his flue cleaner, Dr. Claudio on n 07/11/22 -Pt advised to check next Cardiogram appt -Work on risk factor management Acquired deviated nasal septum 04/25/2016 Steatohepatitis 12/27/2015 Alcohol use disorder 09/06/2015 Assessment & Plan (06/25/2024 12:13 PM EST): -He had at least 5 significant falls since Jul 2022. Although falls are described as mechanical falls, he was under the influence of alcohol for all occasions -10/02/22 BAL 199 mg/dl -He had subdural hematoma -Section 35 was attempted; but pt was deemed not an imminent danger to himself - previously following with Dr. Mendoza for AUD - no longer on naltrexone Assessment & Plan (07/25/2023 6:26 AM EST): -He had at least 5 significant falls since Jul 2022. Although falls are described as mechanical falls, he was under the influence of alcohol for all occasions -10/02/22 BAL 199 mg/dl -He had subdural hematoma -Section 35 was attempted; but pt was deemed not an imminent danger to himself - continue following with Dr. Mendoza for AUD - continue naltrexone Assessment & Plan (05/26/2023 6:54 AM EDT): -He had at least 5 significant falls since Jul 2022. Although falls are described as mechanical falls, he was under the influence of alcohol for all occasions -10/02/22 BAL 199 mg/dl -He had subdural hematoma -Section 35 was attempted; but pt was deemed not an imminent danger to himself - continue following with Dr. Mendoza for AUD - continue naltrexone Assessment & Plan (01/23/2023 4:06 PM EDT): - continue following with Dr. Mendoza for AUD - continue naltrexone Assessment & Plan (11/26/2022 9:47 AM EDT): -He had at least 5 significant falls since Jul 2022. Although falls are described as mechanical falls, he was under the influence of alcohol for all occasions -10/02/22 BAL 199 mg/dl -He had subdural hematoma -Section 35 was attempted; but pt was deemed not an imminent danger to himself -will refer to [facility]UD Clinic. Pt will meet with Classroom Coordinator today. Assessment & Plan (10/13/2022 5:30 PM EST): -He had at least 5 significant falls since Jul 2022. Although falls are described as mechanical falls, he was under the influence of alcohol for all occasions -10/02/22 BAL 199 mg/dl -He had subdural hematoma -Section 35 was attempted; but pt was deemed not an imminent danger to himself Gout 09/06/2015 Assessment & Plan (06/25/2024 12:13 PM EST): -hyperuricemia -low purine diet -reduce alcohol intake -continue allopurinol; may need to lower dose for CKDIII Assessment & Plan (11/26/2022 9:48 AM EDT): -hyperuricemia -low purine diet -reduce alcohol intake -continue allopurinol; may need to lower dose for CKDIII Assessment & Plan (10/13/2022 5:21 PM EST): -hyperuricemia -low purine diet -reduce alcohol intake -continue allopurinol; may need to lower dose for CKDIII Obesity 09/06/2015 Essential hypertension 05/30/2015 Assessment & Plan (06/25/2024 2:36 PM EST): - Goal BP <140/90 per JNC-8, < 130/80 per ACC/AHA guideline. - BP at goal today - Continue checking home BP - Continue working on lifestyle modifications - Continue metoprolol succinate 75 mg daily - Currently torsemide 20 mg bid is on hold - Continue spirolactone 25 mg daily - Previously on losartan 25 mg daily which was discontinued by memory care program resident - Improve CPAP adherence Tx history - Amlodipine was discontinued due to LE edema and furosemide was switched to torsemide by his flue cleaner. - Lisinopril was discontinued when he had POLLY, but restarted after his renal function recovered - Lisinopril and torsemide were held during recent hospitalization. Resumed upon discharge. - Lisinopril was changed to losartan in Jul 2023. -Follow up in 3 mo or sooner if any problem arises Assessment & Plan (11/25/2023 8:29 AM EDT): - Goal BP <140/90 per JNC-8, < 130/80 per ACC/AHA guideline. - Continue checking home BP - Continue working on lifestyle modifications - Continue metoprolol succinate 75 mg daily - Continue torsemide 20 mg bid - Continue spirolactone 25 mg daily - Continue losartan 25 mg daily. - Improve CPAP adherence Tx history - Amlodipine was discontinued due to LE edema and furosemide was switched to torsemide by his flue cleaner. - Lisinopril was discontinued when he had POLLY, but restarted after his renal function recovered - Lisinopril and torsemide were held during recent hospitalization. Resumed upon discharge. - Lisinopril was changed to losartan in Jul 2023. -Follow up in 3 mo or sooner if any problem arises Assessment & Plan (07/26/2023 2:09 PM EST): - Goal BP <140/90 per JNC-8, < 130/80 per ACC/AHA guideline. BP is at goal - Continue checking home BP - Continue working on lifestyle modifications - Continue metoprolol succinate 75 mg daily - Continue torsemide 20 mg bid - Continue spirolactone 25 mg daily - Change lisinopril 5mg daily to losartan 12.5 mg daily. If home SBP is persistently > 140, take 25 mg daily. Check lab in 2 wks. - Improve CPAP adherence ?? Tx history - Amlodipine was discontinued due to LE edema and furosemide was switched to torsemide by his flue cleaner. - Lisinopril was discontinued when he had POLLY, but restarted after his renal function recovered - Lisinopril and torsemide were held during recent hospitalization. Resumed upon discharge. ?? -Follow up in 3 mo or sooner if any problem arises Assessment & Plan (05/26/2023 6:48 AM EDT): - Goal BP <140/90 per JNC-8, < 130/80 per ACC/AHA guideline. BP is at goal - Continue checking home BP - Continue working on lifestyle modifications - Continue metoprolol succinate 75 mg daily (Dr. Claudio, flue cleaner, increased to 100 mg daily, but his discharge medication list shows 75 mg daily) - Continue torsemide 20 mg bid - Continue spirolactone 25 mg daily - Continue lisinopril 5mg daily - Improve CPAP adherence ?? Tx history - Amlodipine was discontinued due to LE edema and furosemide was switched to torsemide by his flue cleaner. - Lisinopril was discontinued when he had POLLY, but restarted after his renal function recovered - Lisinopril and torsemide were held during recent hospitalization. Resumed upon discharge. ?? -Follow up in 3 mo or sooner if any problem arises Assessment & Plan (04/25/2023 10:43 AM EDT): - Goal BP <140/90 per JNC-8, < 130/80 per ACC/AHA guideline. BP is at goal - Continue checking home BP - Continue working on lifestyle modifications - Continue metoprolol succinate 75 mg daily (Dr. Claudio, flue cleaner, increased to 100 mg daily, but his discharge medication list shows 75 mg daily) - Continue torsemide 20 mg bid - Continue spirolactone 25 mg daily - Continue lisinopril 5mg daily - Improve CPAP adherence Tx history - Amlodipine was discontinued due to LE edema and furosemide was switched to torsemide by his flue cleaner. - Lisinopril was discontinued when he had POLLY, but restarted after his renal function recovered - Lisinopril and torsemide were held during recent hospitalization. Resumed upon discharge. -Follow up in 3 mo or sooner if any problem arises Assessment & Plan (01/23/2023 3:59 PM EDT): - Goal BP <140/90 per JNC-8, < 130/80 per ACC/AHA guideline. BP not at goal - Continue checking home BP - Continue working on lifestyle modifications - Continue metoprolol succinate 75 mg daily (Dr. Claudio, flue cleaner, increased to 100 mg daily, but his discharge medication list shows 75 mg daily) - Continue torsemide 20 mg bid - Continue spirolactone 25 mg daily - Continue lisinopril 5mg daily - Improve CPAP adherence Tx history - Amlodipine was discontinued due to LE edema and furosemide was switched to torsemide by his flue cleaner. - Lisinopril was discontinued when he had POLLY, but restarted after his renal function recovered - Lisinopril and torsemide were held during recent hospitalization. Resumed upon discharge. -Follow up in 3 mo or sooner if any problem arises Assessment & Plan (11/30/2022 6:19 AM EDT): - Goal BP <140/90 per JNC-8, < 130/80 per ACC/AHA guideline. BP not at goal - Continue checking home BP - Continue working on lifestyle modifications - Continue metoprolol succinate 75 mg daily (Dr. Claudio, flue cleaner, increased to 100 mg daily, but his discharge medication list shows 75 mg daily) - Continue torsemide 20 mg bid - Continue spirolactone 25 mg daily - Continue lisinopril 5mg daily - Improve CPAP adherence Tx history - Amlodipine was discontinued due to LE edema and furosemide was switched to torsemide by his flue cleaner. - Lisinopril was discontinued when he had POLLY, but restarted after his renal function recovered - Lisinopril and torsemide were held during recent hospitalization. Resumed upon discharge. -Follow up in 3 mo or sooner if any problem arises Assessment & Plan (10/13/2022 5:12 PM EST): - Goal BP <140/90 per JNC-8, < 130/80 per ACC/AHA guideline. - Continue checking home BP - Continue working on lifestyle modifications - Continue metoprolol succinate 75 mg daily (Dr. Claudio, flue cleaner, increased to 100 mg daily, but his discharge medication list shows 75 mg daily) - Continue torsemide 20 mg bid - Continue spirolactone 25 mg daily - Continue lisinopril 5mg daily - Improve CPAP adherence Tx history - Amlodipine was discontinued due to LE edema and furosemide was switched to torsemide by his flue cleaner. - Lisinopril was discontinued when he had POLLY, but restarted after his renal function recovered - Lisinopril and torsemide were held during recent hospitalization. Resumed upon discharge. Calcaneal spur 07/21/2014 Obstructive sleep apnea syndrome 07/21/2014 Assessment & Plan (06/25/2024 2:35 PM EST): -Improve adherence to CPAP -Consider referring to sleep medicine clinic Assessment & Plan (11/12/2023 12:17 PM EDT): -Improve adherence to CPAP -Consider referring to sleep medicine clinic Assessment & Plan (07/25/2023 6:23 AM EST): -Improve adherence to CPAP -Consider referring to sleep medicine clinic Assessment & Plan (05/26/2023 6:47 AM EDT): -Improve adherence to CPAP -Consider referring to sleep medicine clinic Assessment & Plan (04/25/2023 10:45 AM EDT): -Improve adherence to CPAP -Consider referring to sleep medicine clinic Assessment & Plan (01/23/2023 3:58 PM EDT): -Improve adherence to CPAP -Consider referring to sleep medicine clinic Assessment & Plan (11/26/2022 9:30 AM EDT): -Improve adherence to CPAP -Consider referring to sleep medicine clinic Assessment & Plan (10/13/2022 5:22 PM EST): -Improve adherence to CPAP -Consider referring to sleep medicine clinic Seborrheic dermatitis 01/21/2012 Resolved Problems Problem Noted Date Diagnosed Date Resolved Date Vomiting and diarrhea 01/23/20232022 Assessment & Plan (01/23/2023 4:03 PM EDT): - infectious gastroenteritis (viral or bacterial), ?food poisoning, medication side effects (Magnesium oxide and other medications) - pt declines lab and ED referral - reviewed ER precautions - continue hydrating himself and supportive care - pt states he will do lab when he comes back for AUD clinic this Saturday Kidney lesion, platinum, left 10/13/2022 06/15/2024 Assessment & Plan (07/25/2023 6:21 AM EST): -09/21/[address] showed 2.3 cm lesion on the upper pole of left kidney; MRI was recommended -MRI 12/27/22 showed a lesion suspicious for renal cell carcinoma -Pt was seen by Dr. Sow on 06/11/23. Renal biopsy was recommended. Assessment & Plan (05/26/2023 6:50 AM EDT): -09/21/[address] showed 2.3 cm lesion on the upper pole of left kidney; MRI was recommended -MRI 12/27/22 showed a lesion suspicious for renal cell carcinoma, referred to urology -Pt is now scheduled with Dr. Sow on 06/11/23. Assessment & Plan (04/25/2023 10:44 AM EDT): -09/21/[address] showed 2.3 cm lesion on the upper pole of left kidney; MRI was recommended -MRI 12/27/22 showed a lesion suspicious for renal cell carcinoma, referred to urology -Check the status of urology appt Assessment & Plan (01/23/2023 4:04 PM EDT): -09/21/[address] showed 2.3 cm lesion on the upper pole of left kidney; MRI was recommended -MRI 12/27/22 showed a lesion suspicious for renal cell carcinoma, referred to urology -Check the status of urology appt Assessment & Plan (11/26/2022 9:43 AM EDT): -09/21/[address] showed 2.3 cm lesion on the upper pole of left kidney; MRI was recommended -MRI ordered but not yet completed Will check status/appointment Assessment & Plan (10/13/2022 5:05 PM EST): -09/21/[address] showed 2.3 cm lesion on the upper pole of left kidney; MRI was recommended -Further evaluation with MRI Encounters Date Type Department Care Team Description 09/11/2024 1:00 PM EST Office Visit [facility] [address] [place] [phone] Sara Alejandra MD Localized pain of left shoulder joint (Primary Dx) 09/11/2024 Travel 09/08/2024 Patient Outreach [facility] [address] [place], [place] [phone] Samantha Gonzales MD Care Coordination (outreach) 09/03/2024 10:30 AM EST Office Visit [address] [address] Brianna Covington ANP Hospital discharge follow-up (Primary Dx); POLLY (acute kidney injury) (CMS/HCC); Thrombocytopenia (CMS/HCC); Alcohol use disorder; Acquired lymphedema of lower extremity 09/03/2024 Patient Outreach [address] [address] Brandon Hargrove Recovery Supports 09/03/2024 Travel 09/02/[address] [phone] Samantha Gonzales MD FYI 09/02/[address] [address] Nora Booker MA chart prep 09/02/2024 Patient Outreach [facility] [address] [place] [address] Samantha Gonzales MD Care Coordination (Outreach) 08/31/2024 Patient Outreach [address] [address] Samantha Gonzales MD Transition Of Care (Tcm) (RE: HDF APPT REMINDER ) 08/27/[address] [address] Samantha Gonzales MD vna services 08/25/2024 Patient Outreach [facility] [address] [place], [place] [phone] Samantha Gonzales MD Care Coordination (Outreach) 08/25/2024 Patient Outreach [facility] [address] [place] [address] Samantha Gonzales MD Care Coordination (Outreach/) 08/21/2024 Patient Outreach [facility] [address] [place], [place] [phone] Samantha Gonzales MD Transition Of Care (Tcm) (HDF scheduled. ) 08/17/2024 Orders Only GENERIC EXTERNAL DATA DEPARTMENT Provider, Generic External Data 07/02/2024 Orders Only [facility] [address] [place] [phone] Sara Alejandra MD Hypomagnesemia (Primary Dx) 07/02/[address] [address] Samantha Gonzales MD CRITICAL RESULT 07/02/2024 Orders Only GENERIC EXTERNAL DATA DEPARTMENT Provider, Generic External Data 06/25/2024 11:15 AM EST Office Visit [address] [address] Samantha Gonzales MD Essential hypertension (Primary Dx); Renal cell cancer, left (CMS/HCC); Dyslipidemia; Gout, unspecified cause, unspecified chronicity, unspecified site; Alcohol use disorder; Alcoholic liver disease (CMS/HCC); Obstructive sleep apnea syndrome; Nonhealing nonsurgical wound; Hypomagnesemia; Anemia of chronic disease; Other dietary vitamin B12 deficiency anemia; Encounter for immunization; Dietary counseling; Exercise counseling; Class 1 obesity due to excess calories with serious comorbidity and body mass index (BMI) of 34.0 to 34.9 in adult 06/25/2024 Telephone [facility] [address] [place] [address] [phone] Susan Lucas MA JD [facility] Discharge 06/25/2024 Travel 06/22/[address] [address] Samantha Gonzales MD Nurse Triage 06/15/[address] [phone] Samantha Gonzales MD No Show from Last 3 Months Immunizations Name Administration Dates Next Due Hep A, Adult 06/25/2024 Hep B, adult 06/25/2024 Influenza Quadrivalent Adjuvanted 05/01/2022 Influenza injectable quadriv alent IIV4 with preservative 07/20/2021,06/11/2018,05/30/2015 Influenza injectable quadriv alent preservative free 05/20/2023,05/01/2022,07/20/2021,06/03,08/01/2016 Influenza, IIV3, injectable 07/21/2014, 1 Influenza, Split (incl. luiza fied surface antigen) 06/04/2013,07/21/2012 Influenza, seasonal, injecta ble, preservative free 06/25/2024 Moderna Covid-19 Vaccine 12+ 07/19/2021,12/20/19 21,11/21/2020 Pfizer Covid-19 Vaccine 12+ 06/25/2024, 3,02/09/2022 Pfizer Covid-19 Vaccine 12+ Bivalent 02/09/2022 Pfizer Covid-19 Vaccine 12+ marcelino-sucrose (Parekh Cap) 02/09/2022 Pneumococcal Conjugate PCV 20 11/26/2022 Pneumococcal Polysaccharide PPSV23 07/25/2018, TD (adult), 2 Lf tetanus tox oid, preservative free, adsorbed 08/19/2008 Tdap 07/28/2022,07/21/2014 Zoster, Recombinant 06/12/2022,04/09/2022 Zoster, live 06/12/2022,04/09/2022 Social History Tobacco Use Types Packs/Day Years Used Date Smoking Tobacco: Never Passive Smoke Exposure: Never Smokeless Tobacco: Never Tobacco Cessation:Counseling Given: [...] is your housing situation today? I have neelwanda badillo 12/26/[address] you [...] Orientation Straight 06/18/2022 10 :17 AM EDT Last Filed Vital Signs Vital Sign Reading [...] Mass Index 36.96 09/11/2024 11:31 AM EST Plan of Treatment Upcoming Encounters Date Type Department Care Team (Late st Contact Info) Description 09/11/2024 2:15 PM EST Office Visit [facility] [address] [place] [address] [phone] Kerwin Mendoza MD [address] [place] [address] [phone] Arrived 10/08/2024 11:00 AM EST Office Visit [facility] [address] [place] [phone] Samantha Gonzales MD [address] [place] [address] [phone] Health Maintenance Due Date Last Done Comments CT Colonography 1961 FIT DNA/Cologuard 1961 FIT 1960 FOBT 1960 HIV Screening 1960 Sigmoidoscopy 1960 RSV Patients and Patients Aged 60 years or older (1 - Risk 60-74 years 1-dose series) 2021 Hepatitis B Vaccines (2 of 3 - Risk 3-dose series) 07/23/2024 06/25/2024 Hepatitis A Vaccines (2 of 2 - Risk 2-dose series) 12/23/2024 06/25/2024 SDOH Screening 12/25/2024 12/26/2023 Alcohol/Substance Use Screening 06/25/2025 06/25/2024 Depression Screening 06/25/2025 06/25/2024, 06/25/20 24 Tobacco Screening 09/11/2025 09/11/2024 Lipid Panel 07/02/2029 07/02/2024, 01/17, 11/03/2021 DTaP/Tdap/Td Vaccines (3 - Td or Tdap) 07/28/2032 07/28/2022, 07/21/2014, 08/19/2008 Colonoscopy 09/20/2033 09/20/2023 Colorectal Cancer Screening 09/20/2033 Zoster Vaccines Completed 06/12/2022, 05/20, 04/09/2022, Additional history exists Pneumococcal Vaccine: Pediatrics (0 to 5 Years) and At-Risk Patients (6 to 64 Years) Completed 11/26/2022, 07/25/2018, 07/21/2014 Hepatitis C Screening Completed 01/28/2023 COVID-19 Vaccine Completed 06/25/2024, 09/2022, 02/09/2022, Additional history exists Influenza Vaccine Completed 06/25/2024, , 05/01/2022, Additional history exists HIB Vaccines Aged Out No longer eligi ble based on patient's age to complete this topic HPV Vaccines Aged Out No longer eligi ble based on patient's age to complete this topic IPV Vaccines Aged Out No longer eligi ble based on patient's age to complete this topic Meningococcal Vaccine Aged Out No izaiah devang eligible based on patient's age to complete this topic RSV under 20 months Aged Out No longe r eligible based on patient's age to complete this topic Rotavirus Vaccines Aged Out No longer eligible based on patient's age to complete this topic Procedures Procedure Name Priority Date/Time Associated Diagnosis Comments XR SHOULDER 2+ VIEWS LEFT Routine 09/11/2024 12:05 PM EST Localized pain of left shoulder joint CT ABDOMEN PELVIS W CONTRAST Routine 08/17/2024 8:[address] LUMBAR SPINE WO CONTRAST Routine 08/17/2024 7:21 PM EST XR CHEST 1 VIEW Routine 08/17/2024 7:05 PM EST ETHANOL Routine 08/17/2024 6:29 PM EST BLOOD CULTURE (SECOND) Routine 6:29 PM EST VENOUS BLOOD GAS Routine 08/17/2024 6:22 PM EST SARS COV2/INFLUENZA A/B AND RSV RNA QL NAAT Routine 08/17/2024 6:14 PM EST LACTIC ACID Routine 08/17/2024 6:13 PM EST HIGH SENSITIVITY TROPONIN I Routine 08/17/2024 6:13 PM EST CBC WITH AUTO DIFFERENTIAL Routine 08/17/2024 6:13 PM EST BASIC METABOLIC PANEL Routine 08/17/2024 6:13 PM EST BLOOD CULTURE (FIRST) Routine 08/17/2024 6:13 PM EST CBC Routine 07/02/2024 11:24 AM EST MAGNESIUM Routine 07/02/2024 11:24 AM EST Nausea vomiting and diarrhea LIPID PANEL WITH REFLEX TO DIRECT LDL Routine 07/02/2024 11:24 AM EST Essential hypertension Nausea vomiting and diarrhea COMPREHENSIVE METABOLIC PANEL Routine 07/02/2024 11:24 AM EST Nausea vomiting and diarrhea HEMOGLOBIN A1C Routine 07/02/2024 11:24 AM EST Nausea vomiting and diarrhea TSH W/REFLEX TO FT4 Routine 07/02/2024 1 1:24 AM EST Nausea vomiting and diarrhea WOUND CARE Routine 06/25/2024 12:36 PM EST Nonhealing nonsurgical wound HM COLONOSCOPY Routine 09/20/2023 HEPATITIS C AB W/REFL TO HCV RNA, QN, PCR Routine 01/28/2023 9:34 AM EDT Alcohol use disorder, severe, dependence (CMS/HCC) from Last 3 Months or Most Recently Relevant to Health Maintenance Results * XR Shoulder 2+ Views Left (09/11/2024 12:05 PM EST) Anatomical Region Laterality Modality Upper Extremities, Shoulder Left Radi ographic Imaging 09/11/2024 12:0 5 PM EST Narrative 09/11/2024 1:15 PM EST ?[facility] ?[address] ?[place] [address] ?XRay Report ? Signed ? Patient: Mohan Gonzalez ?MR#: [id number] ?? [id number] ? : 1960 ?Acct:[id number] ? Age/Sex: 64 / M ?ADM Date: 09/11/24 ? Loc: HO.HHCX ? Attending Dr: Sara Alejandra MD ? Ordering Physician: Sara Alejandra MD ?? Date of Service: 09/11/24 ?? Procedure(s): XR shoulder LT min 2V ?? Accession Number(s): [id number] ? cc: Sara Alejandra MD ? EXAMINATION: [...] signed by Kaushal Trujillo MD in OV> ?09/11/ 1312 ? DD/ 1205 ? TD/TT: 09/11/ 1230 ? Hvac Project Manager: ? Procedure Note Donotuseinterpreter, Image - 09/11/[address] [address] XRay Report Signed Patient: Mohan Gonzalez AMR#: [id number] : 1960cct:[id number] Age/Sex: 64 / MADM Date: 09/11/24 Loc: HO.HHCX Attending Dr: Sara Alejandra MD Ordering Physician: Sara Alejandra MD Date of Service: 09/11/24 Procedure(s): XR shoulder LT min 2V Accession Number(s): [id number] cc: Sara Alejandra MD EXAMINATION: XR SHOULDER, [...] 09/11/24 1312 DD/ 1205 TD/TT: 09/11/24 1230 Hvac Project Manager: Sara Alejandra MD IMG XR PROCEDURES Final Re sult * CT Abdomen Pelvis w/ Contrast (08/17/2024 8:44 PM EST) Anatomical Region Laterality Modality Body, Pelvis, Abdomen Computed T omography 08/17/2024 8:44 PM EST Narrative 08/17/2024 8:46 PM EST ? [facility] ?[address] ?[place] [address] ? CT Scan Report ? Signed ? Patient: ,Mohan He ?MR#: [id number] ?? [id number] ? : 1960 ?Acct:[id number] ? Age/Sex: 64 / M ?ADM Date: 08/17/24 ? Loc: HO.ED ? Attending Dr: ? Ordering Physician: Vito Marquez MD ?? Date of Service: 08/17/24 ?? Procedure(s): CT abdomen pelvis w IV con ?? Accession Number(s): [id number] ? cc: Vito Marquez MD; [facility] ? Report Number: ?? [id number]: Total DLP = ??703.00 mGy-cm ? CLINICAL HISTORY: abd pain ? CT abdomen and pelvis with contrast ? Comparison: CT/IA/SR - CT ABDOMEN PELVIS WO IV CON [...] ? DD/ 43 ? TD/TT: 08/17/242043 ? Hvac Project Manager: ? Procedure Note Sanket, Mallorie - 08/17/[address] [place] [address] [address] Scan Report Signed Patient: Mohan Gonzalez AMR#: [id number] : 1960cct:[id number] Age/Sex: 64 / MADM Date: 08/17/24 Loc: HO.ED Attending Dr: Ordering Physician: Vito Marquez MD Date of Service: 08/17/24 Procedure(s): CT abdomen pelvis w IV con Accession Number(s): [id number] cc: Vito Marquez MD; [facility] Report Number: [id number]: Total DLP = 703.00 mGy-cm CLINICAL HISTORY: abd pain CT abdomen and pelvis with contrast Comparison: CT/IA/SR - CT ABDOMEN PELVIS WO IV CON [...] in OV> 08/17/242044 DD/ 43 TD/TT: 08/17/242043 Hvac Project Manager: [facility] External Provider IMG CT PROCEDURES Final Result * CT Lumbar Spine w/o Contrast (08/17/2024 7:21 PM EST) Anatomical Region Laterality Modality Spine, L-spine Computed Tomogra phy 08/17/2024 7:21 PM EST Narrative 08/17/2024 7:23 PM EST ? [facility] ?[address] ?[place] [address] ? CT Scan Report ? Signed ? Patient: Mohan Gonzalez ?MR#: [id number] ?? [id number] ? : 1960 ?Acct:[id number] ? Age/Sex: 64 / M ?ADM Date: 12/30/24 ? Loc: HO.ED ? Attending Dr: ? Ordering Physician: Vito Marquez MD ?? Date of Service: 08/17/24 ?? Procedure(s): CT lumbar spine wo IV con ?? Accession Number(s): [id number] ? cc: Vito Marquez MD; [facility] ? Report Number: ?? [id number]: Total DLP = ??688.00 mGy-cm ? CLINICAL [...] ? DD/ 20 ? TD/TT: 08/17/241920 ? Hvac Project Manager: ? Procedure Note Mallorie Coles - 08/17/[address] [place] [address] [address] Scan Report Signed Patient: Mohan Gonzalez AMR#: [id number] : 1960cct:[id number] Age/Sex: 64 / MADM Date: 08/17/24 Loc: HO.ED Attending Dr: Ordering Physician: Vito Marquez MD Date of Service: 08/17/24 Procedure(s): CT lumbar spine wo IV con Accession Number(s): [id number] cc: Vito Marquez MD; [facility] Report Number: [id number]: Total DLP = 688.00 mGy-cm CLINICAL HISTORY: [...] in OV> 08/17/241921 DD/ 20 TD/TT: 08/17/241920 Hvac Project Manager: [facility] External Provider IMG CT PROCEDURES Final Result * XR Chest 1 View (08/17/2024 7:05 PM EST) Anatomical Region Laterality Modality Chest Radiographic Paty ging 08/17/2024 7:05 PM EST Narrative 08/17/2024 7:06 PM EST ? [facility] ?[address] ?[place] [address] ?XRay Report ? Signed ? Patient: KeysharoryMohan A ?MR#: [id number] ?? [id number] ? : 1960 ?Acct:[id number] ? Age/Sex: 64 / M ?ADM Date: 08/17/24 ? Loc: HO.ED ? Attending Dr: ? Ordering Physician: Vito Marquez MD ?? Date of Service: 08/17/24 ?? Procedure(s): XR chest 1V ?? Accession Number(s): [id number] ? cc: Vito Marquez MD; [facility] [facility] ? CLINICAL HISTORY: wheezing ? 1 view [...] by Eddy Recinos MD in OV> ? 08/17/24 1906 ? DD/ 1905 ? TD/TT: 08/17/24 1905 ? Hvac Project Manager: ? Procedure Note Mallorie Coles - 08/17/2024 [place] [id number] [facility] [place] [address] XRay Report Signed Patient: Mohan Gonzalez AMR#: [id number] : [id number]:[id number] Age/Sex: 64 / MADM Date: 08/17/24 Loc: HO.ED Attending Dr: Ordering Physician: Vito Marquez MD Date of Service: 08/17/24 Procedure(s): XR chest 1V Accession Number(s): [id number] cc: Vito Marquez MD; [facility] CLINICAL HISTORY: wheezing 1 view chest x-ray [...] in OV> 08/17/241905 DD/ 04 TD/TT: 08/17/241904 Hvac Project Manager: [facility] External Provider IMG XR PROCEDURES Final Result * Blood Culture (Second) (08/17/2024 6:29 PM EST) Blood Venous blood specimen / Unknown 08/17/2024 6:29 PM EST 08/17/2024 6:34 PM EST Comment:Blood Narrative [facility] - 08/22/2024 8:34 PM EST Blood Culture (Second) No growth after 5 days. Specimen Source: Blood Generic External Data Provider LAB MICROBIOLOGY - GENERAL ORDERABLES Final Result [facility] [address] [place] [phone] * Ethanol (08/17/2024 6:29 PM EST) ETHANOL (MG/DL) IN SER/PLAS <10 mg/dL [facility] Comment:Serum/plasma ethanol results are to be used formedical/treatment purposes only. 08/17/2024 6:29 PM EST 08/17/2024 6:34 PM EST Generic External Data Provider LAB BLOOD ORDERAB LES Final Result Performing Organization Address [facility] Co de Phone Number [facility] [address] [place] [phone] * (ABNORMAL) VENOUS BLOOD GAS (08/17/2024 6:22 PM EST) VBG pH 7.37 7.32 - 7.43 [facility] Comment:METER #: [id number] additional_comment: Adonay manzanares VBG PCO2 35 mmHg [facility] Comment:METER #: [id number] additional_comment: Adonay manzanares VBG PO2 40 mmHg [facility] Comment:METER #: [id number] additional_comment: Adonay manzanares VBG Base Excess -3.9 mmol/L [facility] Comment:METER #: [id number] additional_comment: Adonay manzanares VBG HCO3 20(L) 22 - 26 mmol/L [facility] Comment:METER #: [id number] additional_comment: Adonay manzanares O2 Sat, Jovan 59.0 % [facility] Comment:METER #: [id number] additional_comment: Adonay manzanares 08/17/2024 6:22 PM EST 08/17/2024 6:27 PM EST us Generic External Data Provider LAB BLOOD ORDERAB LES Final Result Performing Organization Address [facility] Co de Phone Number [facility] [address] [place] [phone] * SARS-CoV-2 RNA, Influenza A/B, and RSV RNA, Ql NAAT (08/17/2024 6:14 PM EST) Influenza A PCR NEGATIVE Negative [facility] Influenza B PCR NEGATIVE Negative [facility] Resp Syncy Virus RNA Qual PCR NEGATIVE Negative [facility] SARS COV2 PCR NEGATIVE Negative [facility] Comment:All test results mus t [...] use by authorized laboratories.Testing performed on the [employer] GeneXpert utilizingreal-time RT-PCR.All SARS CoV2 and positive influenza A/B results arereported to [facility]. 08/17/2024 6:14 PM EST 08/17/2024 6:20 PM EST us Generic External Data Provider LAB MICROBIOLOGY - GENERAL ORDERABLES Final Result [facility] [address] [place] [phone] * Blood Culture (First) (08/17/2024 6:13 PM EST) Blood Venous blood specimen / Unknown 08/17/2024 6:13 PM EST 08/17/2024 6:20 PM EST Comment:Blood Narrative [facility] - 08/20/2024 11:08 AM EST Blood [...] Culture (First) Gram stain reviewed by a Administrative Associate Blood Culture (First) MRSA PCR Blood Culture (First) MRSA: Negative, SA: Negative Coag negative Staphylococcus CBLD STANEG comment Unlikely pathogen; call Micro if full workup indicated. Results of Blood Culture gram stain called to and read back by ADRIANA at 2252 on 08/18/24 by TIFFANIE. Specimen Source: Blood Generic External Data Provider LAB MICROBIOLOGY - GENERAL ORDERABLES Final Result Performing Organization Address [facility] Co de Phone Number [facility] [address] [place] [address] [phone] * High Sensitivity Troponin I (08/17/2024 6:13 PM EST) [facility] TROPONIN I HIGH SENSITIVITY 4.3 <3.5 - 35.0 ng/L [facility] Comment:The Erwin high sens itivity Troponin-I results should beused in conjunction with other diagnostic information suchas ECG, clinical observations and information, and patientsymptoms to aid in the diagnosis of AR. 08/17/2024 6:13 PM EST 08/17/2024 6:20 PM EST Generic External Data Provider LAB BLOOD ORDERAB LES Final Result Performing Organization Address [facility] de Phone Number [facility] [address] [place] [address] [phone] * (ABNORMAL) CBC auto differential (08/17/2024 6:13 PM EST) [facility] White Blood Count 6.4 4.8 - 10.8 X10*3/uL [facility] Red Blood Count 3.62(L) 4.60 - 5.80 X10*6/uL [facility] Hemoglobin 11.0(L) 14.0 - 18.0 g/dl [facility] Hematocrit 32.9(L) 42.0 - 52.0 % [facility] Mean Corpuscular Volume 90.9 80.0 - 98.0 fL [facility] Mean Corpuscular Hemoglobin 30.4 27.0 - 33.0 pg [facility] Mean Corpuscular HGB Conc 33.4 31.0 - 36.0 g/dl [facility] Red Cell Distribution Width 16.3(H) 11.0 - 16.0 % [facility] Platelet Count 49(L) 160 - 400 X10*3/uL [facility] Mean Platelet Volume 9.1(L) 9.4 - 12.4 fL [facility] Neutrophils Percent Auto 77.3(H) 45 - 73 % [facility] Imm Gran Pct Auto 0.3 0.0 - 0.4 % [facility] Lymphocytes Percent Auto 14.6(L) 20 - 40 % [facility] Monocytes Percent Auto 6.4 2 - 11 % [facility] Eosinophils Percent Auto 0.6 0 - 4 % [facility] Basophils Percent Auto 0.8 0 - 2 % [facility] NRBC Pct Auto 0.0 0.0 - 0.2 /100WBC [facility] Neutrophils Absolute Auto 4.9 2.0 - 8.3 x10*3/uL [facility] Imm Gran Abs Auto 0.02 0.00 - 0.03 X10*3/uL [facility] Lymphocytes Absolute Auto 0.9(L) 1.2 - 4.9 X10*3/uL [facility] Monocytes Absolute Auto 0.4 0.1 - 1.2 X10*3/uL [facility] Eosinophils Absolute Auto 0.0 0.0 - 0.4 X10*3/uL [facility] Basophils Absolute Auto 0.1 0.0 - 0.2 X10*3/uL [facility] NRBC Abs Auto 0.000 0.0 - 0.012 X10*3/uL [facility] 08/17/2024 6:13 PM EST 08/17/2024 6:20 PM EST us Generic External Data Provider LAB BLOOD ORDERAB LES Final Result [facility] [address], [place] [phone] * (ABNORMAL) Lactic Acid (08/17/2024 6:13 PM EST) Lactic Acid 2.5(HH) 0.5 - 2.0 mmol/L [facility] Comment:Critical value for t est(s): LATIC ACID Results called toand read back by: MELISSA Person calling: [email or web address] Date:08/17/24 Time: 1842 08/17/2024 6:13 PM EST 08/17/2024 6:20 PM EST us Generic External Data Provider LAB BLOOD ORDERAB LES Final Result [facility] [address] [place] [address] [phone] * (ABNORMAL) Basic Metabolic Panel (08/17/2024 6:13 PM EST) Sodium 142 135 - 145 mmol/L [facility] Potassium 4.8 3.3 - 5.1 mmol/L [facility] Chloride 104 96 - 108 mmol/L [facility] Carbon Dioxide 19(L) 22 - 29 mmol/L [facility] Anion Gap 24(H) 12 - 20 [facility] Urea Nitrogen (BUN) 18(H) 9 - 16 mg/dL [facility] Creatinine, Serum 1.08 0.5 - 1.4 mg/dL [facility] Creatinine Clr Calc Pharmacy 79.1 [facility] Comment:eGFR (calculated fro m the MDRD study equation) and eCrCl(calculated from the Cockcroft-Gault equation) are based ondifferent parameters and may not yield comparable results.If eCrCl result is absurd, please check patient'sheight/weight. Estimated Glomerular Filt Rate >60 [facility] Comment:Chronic Kidney Disea se: Estimated GFR < 60 mL/min/1.25s6[place] Kidney Disease: Estimated GFR < 15 mL/min/1.73m2 Glucose 90 60 - 115 mg/dL [facility] Calcium 9.0 8.4 - 10.2 mg/dL [facility] 08/17/2024 6:13 PM EST 08/17/2024 6:20 PM EST us Generic External Data Provider LAB BLOOD ORDERAB LES Final Result Performing Organization Address [facility] Co de Phone Number [facility] [address] [place] [address] [phone] * TSH with Reflex to Free T4 (07/02/2024 11:24 AM EST) TSH reflex Free T4 3.48 0.32 - 4.0 uIU/mL [facility] Blood 07/02/2024 11:2 4 AM EST 07/02/2024 1:19 PM EST us Samantha Gonzales MD LAB BLOOD ORDERABLES Final Resul t Performing Organization Address [facility] Co de Phone Number [facility] [address] [place] [address] [phone] * Lipid Panel with Reflex to Direct LDL (07/02/2024 11:24 AM EST) Triglycerides 83 <150 mg/dL [facility] Comment:Desirable Triglyceri de: less than 150 mg/dLBorderline High Triglyceride 150-199 mg/dLHigh Triglyceride: 200-499 mg/dLVery High Triglyceride: greater than or equal to 5OO mg/dL Cholesterol 150 <200 mg/dL [facility] Comment:Desirable Cholestero l: less than 200 mg/dLBorderline High Cholesterol: 200-239 mg/dLHigh Cholesterol: greater than 239 mg/dL LDL Cholesterol Calculated 68 <100 mg/dL [facility] Comment:Desirable LDL: less than 100 mg/dLNear Optimal/Above Optimal LDL: 110- 129 mg/dLBorderline High LDL: 130-159 mg/dLHigh LDL: 160-189 mg/dLVery High LDL: greater than or equal to 190 mg/dL HDL Cholesterol 66 >40 mg/dL [facility] Comment:Desirable HDL: great er than 40 mg/dL Note: This HDL assay may give artificially low results in patients with liver disease. Blood 07/02/2024 11:2 4 AM EST 07/02/2024 1:19 PM EST us Samantha Gonzales MD LAB BLOOD ORDERABLES Final Resul t Performing Organization Address City/[facility]/ZIP Co de Phone Number [facility] [address] [place] [address] [phone] * (ABNORMAL) CBC (07/02/2024 11:24 AM EST) White Blood Count 8.2 4.8 - 10.8 X10*3/uL [facility] Red Blood Count 3.49(L) 4.60 - 5.80 X10*6/uL [facility] Hemoglobin 10.2(L) 14.0 - 18.0 g/dl [facility] Hematocrit 31.9(L) 42.0 - 52.0 % [facility] Mean Corpuscular Volume 91.4 80.0 - 98.0 fL [facility] Mean Corpuscular Hemoglobin 29.2 27.0 - 33.0 pg [facility] Mean Corpuscular HGB Conc 32.0 31.0 - 36.0 g/dl [facility] Red Cell Distribution Width 17.7(H) 11.0 - 16.0 % [facility] Platelet Count 117(L) 160 - 400 X10*3/uL [facility] Mean Platelet Volume 9.5 9.4 - 12.4 fL [facility] NRBC Pct Auto 0.0 0.0 - 0.2 /100WBC [facility] NRBC Abs Auto 0.000 0.0 - 0.012 X10*3/uL [facility] 07/02/2024 11:2 4 AM EST 07/02/2024 1:19 PM EST us Generic External Data Provider LAB BLOOD ORDERAB LES Final Result Performing Organization Address City/[facility]/ZIP Co de Phone Number [facility] [address] [place] [address] [phone] * (ABNORMAL) Magnesium (07/02/2024 11:24 AM EST) Magnesium 1.3(LL) 1.6 - 2.6 mg/dL [facility] Comment:Critical value for t est(s): MAGS Results called to and readback by: ZEYAD Anderson Person callingKUSF: Date: [id number]:1623 Blood Venous blood specimen / Unknown 07/02/2024 11:24 AM EST 07/02/2024 1:19 PM EST us Samantha Gonzales MD LAB BLOOD ORDERABLES Final Resul t [facility] [address] [place] [address] [phone] * Hemoglobin A1c (07/02/2024 11:24 AM EST) Hemoglobin A1c 4.2 <6.0 % [facility] Comment:Hemoglobin A1C Refer ence Range Adults: 4.8 - 6.0 % Non diabetic: < 6.0 % Goal: < 7.0 %Additional Action Suggested: > 8.0 %Note: Hemoglobin A1c results are invalid for patients with abnormal amounts of HbF. Blood transfusions may impact the HbA1c concentration in the patient sample. Estimated Average Glucose 74 mg/dL [facility] Comment:eAG = Estimated ave rage glucose which is %A1C expressed asaverage glucose, using the formula of the C2E-ZzbhxotEopwmls Glucose study (ADAG), Diabetes Care, Vol.31,#8,Mar. 2007 Blood Venous blood specimen / Unknown 07/02/2024 11:24 AM EST 07/02/2024 1:19 PM EST us Samantha Gonzales MD LAB BLOOD ORDERABLES Final Resul t [facility] [address] [place] [address] [phone] * (ABNORMAL) Comprehensive Metabolic Panel (07/02/2024 11:24 AM EST) Sodium 139 135 - 145 mmol/L [facility] Potassium 3.6 3.3 - 5.1 mmol/L [facility] Chloride 106 96 - 108 mmol/L [facility] Carbon Dioxide 24 22 - 29 mmol/L [facility] Anion Gap 13 12 - 20 [facility] Urea Nitrogen (BUN) 13 9 - 16 mg/dL [facility] Creatinine, Serum 1.05 0.5 - 1.4 mg/dL [facility] Estimated Glomerular Filt Rate >60 [facility] Comment:Chronic Kidney Disea se: Estimated GFR < 60 mL/min/1.93r4[place] Kidney Disease: Estimated GFR < 15 mL/min/1.73m2 Glucose 91 60 - 115 mg/dL [facility] Calcium 8.7 8.4 - 10.2 mg/dL [facility] Bilirubin, Total 2.2(H) 0.0 - 1.0 mg/dL [facility] Comment:Slight Icterus. Aspartate Amino Transferase 40(H) 5 - 37 U/L [facility] Alanine Aminotransferase 11 0 - 40 U/L [facility] Total Protein 7.5 6.5 - 8.0 g/dL [facility] Albumin Level 3.9 3.5 - 5.0 g/dL [facility] Alkaline Phosphatase 124(H) 39 - 117 U/L [facility] Blood Venous blood specimen / Unknown 07/02/2024 11:24 AM EST 07/02/2024 1:19 PM EST us Samantha Gonzales MD LAB BLOOD ORDERABLES Final Resul t [facility] [address] [place] [address] [phone] * Wound Care (06/25/2024 12:36 PM EST) Narrative Karyn Mann RN - 06/25/2024 12:36 PM JASVIR Mann RN ? 06/29/2024 10:47 AM Wound Care Date/Time: 06/25/2024 12:36 PM Performed by: Karyn Mann RN Authorized by: Samantha Gonzales MD ?? Consent: ??Consent obtained: ??Verbal ??Consent given by: ??Patient ??Risks, benefits, and alternatives were discussed: yes ?Risks discussed: ??[place] protocol: ??Patient identity confirmed: ??Verbally with patient Dressing: ??Dressing applied: ??4x4 Post-procedure details: ??Procedure completion: ??Tolerated Comments: ?? Per PCP verbal order, wound care provided to lower left abdomen: cleanse with normal saline, pat dry. Apply 4x4 and abd pad to protect irritated skn around area of weeping. Pt tolerated well, educated to monitor for changes. Samantha Gonzales MD IN CLINIC/BEDSIDE ORDERABLES Fin al Result * Colonoscopy (09/20/2023) Pathologist [facility] Colonoscopy Normal Normal Historical Provider HEALTH MAINTENANCE Final Result * Hepatitis C Antibody with Reflex to HCV, RNA, Quantitative, Real-Time PCR (01/28/2023 9:34 AM EDT) Pathologist [facility] Hepatitis C Antibody NON-REACT GENI NON-REACT GENI [facility] Index 0.04 <1.00 [facility] Comment: HCV antibody was non-reactive. There is no laboratory evidence of HCV infection. In most cases, no further action is required. However, if recent HCV exposure is suspected, a test for HCV RNA (test code 75974) is suggested. For additional information please refer to http://education.ki work/faq/GOE30k9 (This link is being provided for informational/ educational purposes only.) Blood Venous blood specimen / Unknown 01/28/2023 9:34 AM EDT 01/28/2023 9:34 AM EDT Narrative [facility] - 01/28/2023 9:34 PM EDT FASTING:YES FASTING: YES us Kerwin Mendoza MD LAB BLOOD ORDERABLES Final Resul t [facility] [address], [place] [phone] [facility] [address] [place] [phone] from Last 3 Months or Most Recently Relevant to Health Maintenance Insurance [employer] C3 Care Teams [employer] Lifeguard Relationship Specialty Start Date End Date Samantha Gonzales MD [address] [place] [phone] PCP - General Family Medicine 07/09/13 [facility] 05/17/24
--- OUTSIDE RECORDS SUMMARY | 2024-09-11 14:12 | XMS_ITS | Encounter Summary ---
Author Organization [employer] Address [address] [facility] [address] [place] [address] Care Team Providers Care Grinding Wheel Operator Name Role Phone Samantha Gonzales MD Primary Care Provider [phone] Reason for Visit * Reason Onset Date Comments Nurse Triage 06/22/2024 Encounter Details Date Type Department Care Team ([facility] st Contact Info) Description 06/22/2024 Telephone [facility] [address] [place], [place] [phone] Samantha Gonzales MD [address] [place], [place] [phone] Nurse Triage Social History Tobacco Use Types Packs/Day Years [...] encounter Miscellaneous Notes * Telephone Encounter - Kemi Atkins RN - 06/22/2024 2:50 PM EST Triage call to BARRIE Huang Festus reports possible wound infection on old tube site left flank area. Site isn't closed yet and there is a profuse amount of drainage coming from the site and greenishin color. Area surrounding the site is reddened . Call to Pt reports that a person from [facility] comes every 2-3 days and changes dressing and reports no infection. Pt has missed last OV 06/15/24 and reports didn't know about it. Pt is given apt with PCP 06/25/24 @ 1115am for wound follow up to evaluate if infection present. Pt did call surgeon who advises to see PCP. Pt did write this apt day and time down at time of call. Pt reports has a mother who is very forgetful and needs to watch over her as well so it is difficult to get to apts at times. Pt repeats time and date for apt 06/25/24 @ 1115am. Pt agrees with disposition and Insurance is verified as active prior to booking. Pt will have another visit with [facility] prior to apt. Protocol Used: Wound Infection Suspected (Adult) Protocol-Based Disposition: See in Office or Video Visit within 3 Days Video visit not offered Positive Triage Question: * After 14 days and the wound isn't healed * All higher-acuity triage questions were negative Care Advice Discussed: * Wound Infection - Treatment With Local Heat * Antibiotic Ointment * Pain Medicines * Pain Medicines - Extra Notes and Warnings * Reasons To Call Back - Fever occurs - You become worse documented in this encounter Plan of Treatment Upcoming Encounters Date Type Department Care Team (Late st Contact Info) Description 09/11/2024 2:15 PM EST Office Visit [facility] [address] [place] [phone] Kerwin Mendoza MD [address] [place] [phone] Arrived 10/08/2024 11:00 AM EST Office Visit [facility] [address] [place] [address] [phone] Samantha Gonzales MD [address] [place] [phone] documented as of this encounter Visit Diagnoses Not on filedocumented in this encounter Additional Health Concerns Assessment Noted Time PHQ-9 Depression Total Score: 3 12/15/19 23 1:37 PM EDT documented as of this encounter Care Teams Grinding Wheel Operator Relationship Specialty Start Date End Date Samantha Gonzales MD [address] [place] [address] [phone] PCP - General Family Medicine 07/09/13 [facility] 05/17/24 documented as of this encounter
--- OUTSIDE RECORDS SUMMARY | 2024-09-11 14:12 | XMS_ITS | Patient Health Record ---
Author Organization [facility] Address [address] [place] [address] Care Team Providers Care Account Manager Name Role Phone Janet SYLVESTER, Samantha Primary Care Provider Eric Flores [phone] RESULTS Component Value Reference Range Notes Complete Blood Count Auto Di ff Reviewed date:09/30/2023 11:39:41 PM Interpretation: Performing Lab:[facility], [address] [place] [phone] Notes/Report: White Blood Count 5.7 4.8-10.8 X10*3/uL Red Blood Count 2.77 4.60-5.80 X10*6/uL Hemoglobin 7.8 14.0-18.0 g/dl Hematocrit 23.6 42.0-52.0 % Mean Corpuscular Volume 85.2 80.0-98.0 fL Mean Corpuscular Hemoglobin 28.2 27.0-33.0 pg Mean Corpuscular HGB Conc 33.1 31.0-36.0 g/dl Red Cell Distribution Width 16.5 11.0-16.0 % Platelet Count 74 160-400 X10*3/uL Mean Platelet Volume 8.9 9.4-12.4 fL Neutrophils Percent Auto 57.4 45-73 % Imm Gran Pct Auto 0.3 0.0-0.4 % Lymphocytes Percent Auto 26.7 20-40 % Monocytes Percent Auto 11.3 2-11 % Eosinophils Percent Auto 3.8 0-4 % Basophils Percent Auto 0.5 0-2 % NRBC Pct Auto 0.0 0.0-0.2 /100WBC Neutrophils Absolute Auto 3.3 2.0-8.3 x10*3/u L Imm Gran Abs Auto 0.02 0.00-0.03 X10*3/uL Lymphocytes Absolute Auto 1.5 1.2-4.9 X10*3/u L Monocytes Absolute Auto 0.7 0.1-1.2 X10*3/uL Eosinophils Absolute Auto 0.2 0.0-0.4 X10*3/u L Basophils Absolute Auto 0.0 0.0-0.2 X10*3/uL NRBC Abs Auto 0.000 0.0-0.012 X10*3/uL Basic Metabolic Panel Fastin g Reviewed date:09/30/2023 11:39:56 PM Interpretation: Performing Lab:[address] [phone] Notes/Report: Sodium 137 135-145 mmol/L Potassium 3.2 3.3-5.1 mmol/L Chloride 104 96-108 mmol/L Carbon Dioxide 22 22-29 mmol/L Anion Gap 14 12-20 Blood Urea Nitrogen 7 9-16 mg/dL Creatinine 0.79 0.5-1.4 mg/dL Creatinine Clr Calc Pharmacy 110.3 eGFR (calculated from the MDRD study equation) and eCrCl (calculated from the Cockcroft-Gault equation) are based on different parameters and may not yield comparable results. If eCrCl result is absurd, please check patient's height/weight. Estimated Glomerular Filt Rate > 60 NOTE: For -Citizen Of [place] individuals, multiply the result by 1.210. Chronic Kidney Disease: Estimated GFR < 60 mL/min/1.73m2 Severe Kidney Disease: Estimated GFR < 15 mL/min/1.73m2 Glucose Fasting 76 60-99 mg/dL Calcium 7.8 8.4-10.2 mg/dL Pathology Reviewed date:10/06/2023 05:13:18 PM Interpretation: Performing Lab:[facility], [address] [place] [phone] Notes/Report: Complete Blood Count Auto Di ff Reviewed date:10/01/2023 09:36:56 AM Interpretation: Performing Lab:[facility], [address] [place] [phone] Notes/Report: White Blood Count 4.0 4.8-10.8 X10*3/uL Red Blood Count 2.90 4.60-5.80 X10*6/uL Hemoglobin 7.9 14.0-18.0 g/dl Hematocrit 24.4 42.0-52.0 % Mean Corpuscular Volume 84.1 80.0-98.0 fL Mean Corpuscular Hemoglobin 27.2 27.0-33.0 pg Mean Corpuscular HGB Conc 32.4 31.0-36.0 g/dl Red Cell Distribution Width 16.9 11.0-16.0 % Platelet Count 80 160-400 X10*3/uL Mean Platelet Volume 9.3 9.4-12.4 fL Neutrophils Percent Auto 49.6 45-73 % Imm Gran Pct Auto 0.3 0.0-0.4 % Lymphocytes Percent Auto 33.4 20-40 % Monocytes Percent Auto 11.9 2-11 % Eosinophils Percent Auto 4.3 0-4 % Basophils Percent Auto 0.5 0-2 % NRBC Pct Auto 0.0 0.0-0.2 /100WBC Neutrophils Absolute Auto 2.0 2.0-8.3 x10*3/u L Imm Gran Abs Auto 0.01 0.00-0.03 X10*3/uL Lymphocytes Absolute Auto 1.3 1.2-4.9 X10*3/u L Monocytes Absolute Auto 0.5 0.1-1.2 X10*3/uL Eosinophils Absolute Auto 0.2 0.0-0.4 X10*3/u L Basophils Absolute Auto 0.0 0.0-0.2 X10*3/uL NRBC Abs Auto 0.000 0.0-0.012 X10*3/uL Basic Metabolic Panel Fastin g Reviewed date:10/01/2023 09:37:10 AM Interpretation: Performing Lab:[facility], [address] [place] [phone] Notes/Report: Sodium 135 135-145 mmol/L Potassium 3.7 3.3-5.1 mmol/L Chloride 104 96-108 mmol/L Carbon Dioxide 24 22-29 mmol/L Anion Gap 11 12-20 Blood Urea Nitrogen 7 9-16 mg/dL Creatinine 0.78 0.5-1.4 mg/dL Creatinine Clr Calc Pharmacy 111.8 eGFR (calculated from the MDRD study equation) and eCrCl (calculated from the Cockcroft-Gault equation) are based on different parameters and may not yield comparable results. If eCrCl result is absurd, please check patient's height/weight. Estimated Glomerular Filt Rate > 60 NOTE: For -Citizen [place] individuals, multiply the result by 1.210. Chronic Kidney Disease: Estimated GFR < 60 mL/min/1.73m2 Severe Kidney Disease: Estimated GFR < 15 mL/min/1.73m2 Glucose Fasting 98 60-99 mg/dL Calcium 8.1 8.4-10.2 mg/dL IRON PROFILE Reviewed date:10/01/2023 09:37:17 AM Interpretation: Performing Lab:[facility], [address] [place] [phone] Notes/Report: Iron 22 45-160 mcg/dL Total Iron Binding Capacity 132 228-428 mcg/d L Percent Iron Saturation 17 15-50 % Unsaturated Iron Binding 110 Ferritin Reviewed date:10/01/2023 09:37:23 AM Interpretation: Performing Lab:[facility], [address] [place] [phone] Notes/Report: Ferritin 471 20-250 ng/mL Vitamin B12 and Folate Reviewed date:10/01/2023 12:06:58 PM Interpretation: Performing Lab:[facility], [address] [place] [phone] Notes/Report: Vitamin B12 937 200-900 pg/mL NORMAL 200-900 PG/ML INDETERMINATE 160-199 PG/ML DEFICIENT < 160 PG/ML Folate 3.4 > or = 4.0 ng/mL Reference Values: > or = 4.0 ng/mL < 4.0 ng/mL suggests folate deficiency Methotrexate, aminopterin and folinic acid (leucovorin) are chemotherapeutic agents whose molecular structures are similar to folate; therefore, the Collaborating Supervising Physician folate assay cannot be used for patients using these drugs. Complete Blood Count Auto Di ff (Not yet reviewed by provider) Interpretation: Performing Lab:[facility], [address] [place] [phone] Notes/Report: White Blood Count 5.2 4.8-10.8 X10*3/uL Red Blood Count 3.43 4.60-5.80 X10*6/uL Hemoglobin 9.2 14.0-18.0 g/dl Hematocrit 29.5 42.0-52.0 % Mean Corpuscular Volume 86.0 80.0-98.0 fL Mean Corpuscular Hemoglobin 26.8 27.0-33.0 pg Mean Corpuscular HGB Conc 31.2 31.0-36.0 g/dl Red Cell Distribution Width 17.2 11.0-16.0 % Platelet Count 220 160-400 X10*3/uL Mean Platelet Volume 8.6 9.4-12.4 fL Neutrophils Percent Auto 41.3 45-73 % Imm Gran Pct Auto 0.4 0.0-0.4 % Lymphocytes Percent Auto 46.0 20-40 % Monocytes Percent Auto 5.2 2-11 % Eosinophils Percent Auto 5.4 0-4 % Basophils Percent Auto 1.7 0-2 % NRBC Pct Auto 0.0 0.0-0.2 /100WBC Neutrophils Absolute Auto 2.1 2.0-8.3 x10*3/u L Imm Gran Abs Auto 0.02 0.00-0.03 X10*3/uL Lymphocytes Absolute Auto 2.4 1.2-4.9 X10*3/u L Monocytes Absolute Auto 0.3 0.1-1.2 X10*3/uL Eosinophils Absolute Auto 0.3 0.0-0.4 X10*3/u L Basophils Absolute Auto 0.1 0.0-0.2 X10*3/uL NRBC Abs Auto 0.000 0.0-0.012 X10*3/uL Basic Metabolic Panel Reviewed date:11/06/2023 11:54:48 PM Interpretation: Performing Lab:[facility], [address] [place] [phone] Notes/Report: Sodium 146 135-145 mmol/L Potassium 4.4 3.3-5.1 mmol/L Chloride 111 96-108 mmol/L Carbon Dioxide 26 22-29 mmol/L Anion Gap 13 12-20 Blood Urea Nitrogen 15 9-16 mg/dL Creatinine 0.91 0.5-1.4 mg/dL Estimated Glomerular Filt Rate > 60 NOTE: For -Citizen [place] individuals, multiply the result by 1.210. Chronic Kidney Disease: Estimated GFR < 60 mL/min/1.73m2 Severe Kidney Disease: Estimated GFR < 15 mL/min/1.73m2 Glucose Random 100 60-115 mg/dL Calcium 8.6 8.4-10.2 mg/dL Magnesium Reviewed date:11/06/2023 02:57:18 PM Interpretation: Performing Lab:[facility], [address] [place] [phone] Notes/Report: Magnesium 1.6 1.6-2.6 mg/dL IRON PROFILE Reviewed date:11/06/2023 11:54:59 PM Interpretation: Performing Lab:[facility], [address] [place] [phone] Notes/Report: Iron 76 45-160 mcg/dL Total Iron Binding Capacity 174 228-428 mcg/d L Percent Iron Saturation 44 15-50 % Unsaturated Iron Binding 98 Ferritin Reviewed date:11/06/2023 11:55:09 PM Interpretation: Performing Lab:[facility], [address] [place] [phone] Notes/Report: Ferritin 363 20-250 ng/mL Folate Reviewed date:11/07/2023 08:38:27 AM Interpretation: Performing Lab:[facility], [address] [place] [phone] Notes/Report: Folate 3.4 > or = 4.0 ng/mL Reference Values: > or = 4.0 ng/mL < 4.0 ng/mL suggests folate deficiency Methotrexate, aminopterin and folinic acid (leucovorin) are chemotherapeutic agents whose molecular structures are similar to folate; therefore, the Collaborating Supervising Physician folate assay cannot be used for patients using these drugs. REASON FOR REFERRAL Referring Provider First Name Samantha Referring Provider Last Name Janet Referring Provider Speciality Internal M edicine Referred Organization [facility] Referred Provider Eric Lenz Referred Address [address] [place] [phone],ZL Referred Provider Specialty Gastroentero logy General Notes Risa Beckwith 024 12:08:55 PM EDT > requested a [facility] referral from [facility] for visit with Dr. Lenz on [phone] Referral Priority Routine SOCIAL HISTORY Sex Assigned At : Social History Observation Description Sex Assigned At Unknown PROBLEMS Problem Type ICD Code Onset Dates Problem Status W/U Status Risk SNOMED Code Notes Problem Anemia (D64.9) Active confirmed Anemia (685306233) Problem Iron deficiency anemia (D50.9) Active confirmed Iron deficien cy anemia (97375457) Problem Diverticulosis of large intestine without perforation or abscess without bleeding (K57.30) Active confirmed Diverticul ar disease of colon (569022606) Problem Esophageal reflux (K21.9) Active confirmed Esophageal reflux (907253254) Problem Gastritis (K29.70) Active confirmed Gas tritis (7540295) Encounters Encounter Location Date Provider Diagnosis [facility] [address] [place] [phone] 12/26/2023 Eric Lenz [facility] [address] [place] [phone] 10/06/2023 Eric Lenz Anemia D64.9 [facility] [address] [place] [phone] 12/26/2023 Eric Lenz ASSESSMENTS Encounter Date Diagnosis Assessment Notes Treatment Notes Treatment Clinical Notes 10/06/2023 Anemia (ICD-10 - D64.9) PLAN OF TREATMENT Pending Test Test Name Order Date IRON + IBC (FE) 10/06/2023 CBC w DIFF 10/06/2023 Complete Blood Count Auto Diff 4 Ferritin 10/06/2023 Folate 10/06/2023 Insurance Providers Payer Name Payer Address Payer Phone Subscriber Number Group Number Insured Name Patient Relationship to Insured Coverage Start Date Coverage End Date MEDICAID OF [place] [address] [place] [id number] MARYLIN WALDEN Self - patient is the insured
== END 2024-09-11 12:03 | disposition home or self-care (01) ==
LOC: HO.HHCX 12:02
PROVIDERS: Visit Provider Family Medicine
DX: M25.511 Pain in right shoulder (principal)
CPT/HCPCS: 73030

== ENCOUNTER → 2024-09-11 12:05 | Outpatient (BNV) | payer MEDICAID, SELFPAY | PROVIDERS: Visit Provider Radiology Diagnostic Radiology | DX: M25.512 Pain in left shoulder (principal) | CPT/HCPCS: 73030 ==

== ENCOUNTER 2024-10-06 20:46 | Emergency (ER) | payer MEDICAID, SELFPAY ==
--- NOTE | ~2024-10-06 | XR_ITS ---
CLINICAL HISTORY: pain from fall 3 view left hand Comparison: None Findings: No fractures or dislocations. There are chronic degenerative changes at the basilar joint. No erosions. No radiopaque foreign body. IMPRESSION: 1. No acute findings This document has been electronically signed by: Maximo Sainz MD on 10/06/2024 23:03:21
--- NOTE | ~2024-10-06 | XR_ITS ---
CLINICAL HISTORY: injury to wrist 3 view left wrist Comparison: None Findings: No fractures or dislocations. The degenerative changes are seen at the basilar joint. No radiopaque foreign body. IMPRESSION: 1. No acute findings This document has been electronically signed by: Maximo Sainz MD on 10/06/2024 22:58:43
--- NOTE | ~2024-10-06 | XR_ITS ---
CLINICAL HISTORY: twist injury to the left elbow 3 view left elbow Comparison: None Findings: No acute fractures. Normal alignment. No significant loss of joint space, osteophytes, or erosions. No joint effusion. No radiopaque foreign body. IMPRESSION: 1. No acute findings This document has been electronically signed by: Maximo Sainz MD on 10/06/2024 23:00:50
[2024-10-06 20:51] VITALS: BP 168/102; PULSE 89; O2SAT 98
[2024-10-06 20:55] VITALS: BP 171/87; PULSE 72; RESP 20; TEMP 36.7; O2SAT 98; BMI 34.3
--- OUTSIDE RECORDS SUMMARY | 2024-10-06 21:21 | XMS_ITS | Encounter Summary ---
Author Organization [employer] Address [address] [place] [address] Care Team Providers Care Electric Blanket Wirer Name Role Phone Samantha Gonzales MD Primary Care Provider [phone] Reason for Visit * Reason Comments Care Coordination Outreach Encounter Details Date Type Department Care Team (Latest Contact Info) Description 09/15/2024 Patient Outreach [facility] MED & PEDS [address] [place], [place] [phone] Samantha Gonzales MD [address] [place] [address] Care Coordination (Outreach) Social History Tobacco Use [...] encounter Progress Notes * Tosha Newby - 09/15/2024 10:02 AM EST CHW Tosha Newby , placed outbound call to patient in regards to offer services. CHW introducing herself from [facility] CM Department with CHW's name, department and direct contact [phone] requesting call back. Will re-attempt to contact within 5 days. and address not confirmed. documented in this encounter Plan of Treatment Upcoming Encounters Date Type Department Care Team ([facility] st Contact Info) Description 10/08/2024 11:00 AM EST Office Visit [facility] MEDICINE [address] [place], [place] [phone] Samantha Gonzales MD [address] [place], [place] [phone] 01/01/2025 10:30 AM EDT Office Visit [facility] OPTOMETRY [address] [place] [address] Lima Davenport, OD [address] [place], [place] [phone] documented as of this encounter Visit Diagnoses Not on filedocumented in this encounter Additional Health Concerns Assessment Noted Time PHQ-9 Depression Total Score: 0 06/25/20 24 11:09 AM EST documented as of this encounter Care Teams Electric Blanket Wirer Relationship Specialty Start Date End Date Samantha Gonzales MD [address] [place] [address] PCP - General Family Medicine 07/09/13 [facility] 05/17/24 documented as of this encounter
--- OUTSIDE RECORDS SUMMARY | 2024-10-06 21:21 | XMS_ITS ---
Author Organization [facility] Address [address] [place] [address] Care Team Providers Care Grape Cutter Name Role Phone Janet SYLVESTER, Samantha Primary Care Provider Eric Flores Unavailable [phone] REASON FOR VISIT ov appt Encounters Encounter Location Date Provider Diagnosis [facility] [address] [place] [address] 12/26/2023 Eric Lenz PLAN OF TREATMENT Next Appt Details Provider Name:Eric Lenz , 01/19/2025 01:00:00 PM, [address] [place] [address], [address], [place], [address],
--- OUTSIDE RECORDS SUMMARY | 2024-10-06 21:21 | XMS_ITS | Encounter Summary ---
Author Organization [employer] Address [address] [place] [address] 7[address] [place] [address] Care Team Providers Care Plate Washer Name Role Phone Samantha Gonzales MD Primary Care Provider [phone] Reason for Visit * Reason Onset Date Comments OV 01/2601/24/2024 Encounter Details Date Type Department Care Team ([facility] st Contact Info) Description 01/24/2024 Telephone [facility] MEDICINE [address] [place], [place] [phone] Samantha Gonzales MD [address] [place], [place] [phone] OV 01/26 Social History Tobacco Use Types [...] Miscellaneous Notes * Telephone Encounter - Mauricio Stern - 01/24/2024 1:58 PM EDT Tc from pt called in to cancel OV for 01/26. Pt state he is currently in rehab in [place] and due to a set back pt does not have any transportation to make it to [place] on Saturday. If any questions please contact pt at [phone]. documented in this encounter Plan of Treatment Upcoming Encounters Date Type Department Care Team (Late st Contact Info) Description 10/08/2024 11:00 AM EST Office Visit [facility] MEDICINE [address] [place] [address] Samantha Gonzales MD [address] [place] [address] 01/01/2025 10:30 AM EDT Office Visit [facility] OPTOMETRY [address] [place] [address] Issac, Lima, OD [address] [place] [address] documented as of this encounter Visit Diagnoses Not on filedocumented in this encounter Additional Health Concerns Assessment Noted Time PHQ-9 Depression Total Score: 3 12/15/19 23 1:37 PM EDT documented as of this encounter Care Teams Plate Washer Relationship Specialty Start Date End Date Samantha Gonzales MD [address] [place] [address] PCP - General Family Medicine 07/09/13 [facility] 05/17/24 documented as of this encounter
--- OUTSIDE RECORDS SUMMARY | 2024-10-06 21:21 | XMS_ITS | Clinical Summary ---
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 -Last seen by [facility] Wound care in October 2021 -usually discharged [...] Plan: -multifactorial - nutritional, CKD -following with [facility] key ringer Aneurysm of ascending aorta 05/29/2016 Overview (11/07/2022): Last Assessment & Plan: -Most recent echo on 04/12/21, EF 60-65%, dilated ascending aorta 41mm -Echo on 04/05/20, EF 55-60%, dilated ascending aorta 42 mm, -Echo on 04/01/19 EF 60-65%, Aortic root dimension 37~43mm -Seen by his legal compliance officer, Dr. Claudio on n 07/11/22 -Pt advised [...] age to complete this topic Insurance [place] Care Teams Cloth Spreader Relationship Specialty Start Date End Date Samantha Gonzales MD PCP - General 08/29/20
--- OUTSIDE RECORDS SUMMARY | 2024-10-06 21:21 | XMS_ITS ---
Author Organization [facility] Address [address] [place] [address] Care Team Providers Care Door Assembler Name Role Phone Janet SYLVESTER, Samantha Primary Care Provider Eric Flores [phone] REASON FOR VISIT Needs OV PROBLEMS Problem Type ICD Code Onset Dates Problem Status W/U Status Risk SNOMED Code Notes Problem Anemia (D64.9) Active confirmed Anemia (898466673) Encounters Encounter Location Date Provider Diagnosis [facility] [address] [place] [address] 10/06/2023 Eric Lenz Anemia D64.9 ASSESSMENTS Encounter Date Diagnosis Assessment Notes Treatment Notes Treatment Clinical Notes 10/06/2023 Anemia (ICD-10 - D64.9) PLAN OF TREATMENT Pending Test Test Name Order Date IRON + IBC (FE) 10/06/2023 CBC w DIFF 10/06/2023 Ferritin 10/06/2023 Folate 10/06/2023 Next Appt Details Provider Name:Eric Lenz , 01/19/2025 01:00:00 PM, [address], [address], [place], [address],
--- OUTSIDE RECORDS SUMMARY | 2024-10-06 21:21 | XMS_ITS | Encounter Summary ---
Author Organization [employer] Address [address] [place] [address] [address] [place] [address] Care Team Providers Care Menhaden Fishing Crew Member Name Role Phone Samantha Gonzales MD Primary Care Provider [phone] Reason for Visit * Reason Comments RC Recovery Supports Encounter Details Date Type Department Care Team ([facility] st Contact Info) Description 09/14/2024 Patient Outreach [facility] MEDICINE [address] [place], [place] [phone] Brandon Hargrove [address] [place], [place] [phone] Recovery Supports Social History Tobacco Use Types [...] encounter Progress Notes * Brandon Hargrove - 09/14/2024 3:54 PM EST I met with Mohan cheek. Setting: in person at [facility] Recovery Wellness Goals worked on: Physical Health/Mental Health, Social Stability, and Spiritual Wellness Action taken/next steps: Attended recovery support group Additional comments: Attended 12-step support group focused on introducing Steps 1, 2, and 3, and discussing their application in our recovery journey. Brandon Hargrove documented in this encounter Plan of Treatment Upcoming Encounters Date Type Department Care Team (Late st Contact Info) Description 10/08/2024 11:00 AM EST Office Visit [facility] MEDICINE [address] [place] [address] Samantha Gonzales MD [address] [place] [address] 01/01/2025 10:30 AM EDT Office Visit [facility] OPTOMETRY [address] [place] [address] Lima Davenport, OD [address] [place] [address] documented as of this encounter Visit Diagnoses Not on filedocumented in this encounter Additional Health Concerns Assessment Noted Time PHQ-9 Depression Total Score: 0 06/25/20 24 11:09 AM EST documented as of this encounter Care Teams Menhaden Fishing Crew Member Relationship Specialty Start Date End Date Samantha Gonzales MD [address] [place] [address] PCP - General Family Medicine 07/09/13 [facility] 05/17/24 documented as of this encounter
--- OUTSIDE RECORDS SUMMARY | 2024-10-06 21:21 | XMS_ITS | Encounter Summary ---
Author Organization [employer] Address [address] [place] [address] 7[address] [place] [address] Care Team Providers Care Change Management Consultant Name Role Phone Samantha Gonzales MD Primary Care Provider [phone] Reason for Referral * Imaging (Routine) - Closed Specialty Diagnoses / Procedures Referred By Mildred silva Referred To Contact Diagnoses Thyroid nodule Procedures US Guided Thyroid Biopsy Samantha Gonzales MD [address] [place] [address] Phone: tel: fax: [address] Phone: tel: fax: Referral ID Status Reason Start Date Expiration Date Visits Re quested Visits Authorized [id number] Closed 11/14/2022 05/13/2023 1 1 Encounter Details Date Type Department Care Team (Late st Contact Info) Description 11/14/2022 Orders Only [facility] MEDICINE [address] [place], [place] [phone] Samantha Gonzales MD [address] [place] [address] Thyroid nodule (Primary Dx) Social History Tobacco [...] Description 10/08/2024 11:00 AM EST Office Visit [facility] MEDICINE [address] [place] [address] Samantha Gonzales MD [address] [place] [address] 01/01/2025 10:30 AM EDT Office Visit [facility] OPTOMETRY [address] [place] [address] IssacLima pratt, OD [address] [place] [address] Scheduled Orders Name Type Priority Associated Diagnoses Orde r Schedule US Guided Thyroid Biopsy Imaging Routine Thyroid nodule Expected: 11/14/2022 (Approximate), Expires: 11/15/2023 documented as of this encounter Visit Diagnoses Diagnosis Thyroid nodule- Primary Nontoxic uninodular goiter documented in this encounter Care Teams Change Management Consultant Relationship Specialty Start Date End Date Samantha Gonzales MD [address] [place], [place] [phone] PCP - General Family Medicine 07/09/13 [facility] 05/17/24 documented as of this encounter
--- OUTSIDE RECORDS SUMMARY | 2024-10-06 21:21 | XMS_ITS | Encounter Summary ---
Author Organization [employer] Address [address] [place] [address] 7t [place] [address] Care Team Providers Care Sr. Payroll Processor Name Role Phone Samantha Gonzales MD Primary Care Provider [phone] Reason for Visit * Reason Onset Date Comments Nurse Triage 06/22/2024 Encounter Details Date Type Department Care Team ([facility] st Contact Info) Description 06/22/2024 Telephone [facility] [address] [place], [place] [phone] Samantha Gonzales MD [address] [place], [place] [phone] Nurse Triage Social History Tobacco Use Types [...] to Pt reports that a person from [employer] comes every 2-3 days and changes dressing [...] booking. Pt will have another visit with [employer] prior to apt. Protocol Used: Wound Infection [...] Description 10/08/2024 11:00 AM EST Office Visit [facility] [address] [place] [address] Samantha Gonzales MD [address] [place] [address] 01/01/2025 10:30 AM EDT Office Visit [facility] [address] [place] [address] Lima Davenport, OD [address] [place] [address] documented as of this encounter Visit Diagnoses Not on filedocumented in this encounter Additional Health Concerns Assessment Noted Time PHQ-9 Depression Total Score: 3 12/15/19 23 1:37 PM EDT documented as of this encounter Care Teams Sr. Payroll Processor Relationship Specialty Start Date End Date Samantha Gonzales MD [address] [place] [address] PCP - General Family Medicine 07/09/13 [facility] 05/17/24 documented as of this encounter
--- OUTSIDE RECORDS SUMMARY | 2024-10-06 21:21 | XMS_ITS | Encounter Summary ---
Author Organization [employer] Address [address] [facility] 7t [place] [address] Care Team Providers Care Soap Mixer Name Role Phone Samantha Gonzales MD Primary Care Provider [phone] Reason for Visit * Reason Onset Date Comments chart prep 10/06/2024 Encounter Details Date Type Department Care Team ([facility] st Contact Info) Description 10/06/2024 Telephone [facility] [address] [place], [place] [phone] Darcy Mariee MA chart prep Social History Tobacco Use [...] is your housing situation today? I have nele aby 12/26/[address] you li [...] encounter Miscellaneous Notes * Telephone Encounter - Darcy Mariee MA - 10/06/2024 3:30 PM EST ..chart Prep Labs: not done 08/2724 Images: not applicable Vaccines due: Hep B Due and RSV in Pharmacy Due Referrals: Gastroenterology Pending appointment on pending 10/23/[address] Screenings: Not Applicable Overdue care gaps: tessa-7 pre documented in this encounter Plan of Treatment Upcoming Encounters Date Type Department Care Team (Late st Contact Info) Description 10/08/2024 11:00 AM EST Office Visit [facility] [address] [place] [address] Samantha Gonzales MD [address] [place] [address] 01/01/2025 10:30 AM EDT Office Visit [facility] OPTOMETRY [address] [place] [address] Lima Davenport, KYLAH 230 [place] [address] documented as of this encounter Visit Diagnoses Not on filedocumented in this encounter Additional Health Concerns Assessment Noted Time PHQ-9 Depression Total Score: 0 06/25/20 11:09 AM EST documented as of this encounter Care Teams Soap Mixer Relationship Specialty Start Date End Date Samantha Gonzales MD [address] [place] [address] PCP - General Family Medicine 07/09/13 [facility] 05/17/24 documented as of this encounter
--- OUTSIDE RECORDS SUMMARY | 2024-10-06 21:21 | XMS_ITS | Encounter Summary ---
Author Organization [employer] Address [address] [place] [address] 7t [place] [address] Care Team Providers Care Consulting Services Manager Name Role Phone Samantha Gonzales MD Primary Care Provider [phone] Encounter Details Date Type Department Care Team (Late Contact Info) Description 01/29/2023 Orders Only [facility] [address] [place], [place] [phone] Samantha Gonzales MD [address] [place], [place] [phone] Hypomagnesemia (Primary Dx) Social History Tobacco Use [...] Description 10/08/2024 11:00 AM EST Office Visit [facility] [address] [place] [address] Samantha Gonzales MD [address] [place] [address] 01/01/2025 10:30 AM EDT Office Visit [facility] OPTOMETRY [address] [place] [address] Lima Davenport, OD 230 [place] [address] Scheduled Orders Name Type Priority Associated Diagnoses [...] documented as of this encounter Care Teams Consulting Services Manager Relationship Specialty Start Date End Date Samantha Gonzales MD [address] [place], [place] [phone] PCP - General Family Medicine 07/09/13 [facility] 05/17/24 documented as of this encounter
--- OUTSIDE RECORDS SUMMARY | 2024-10-06 21:21 | XMS_ITS | Encounter Summary ---
Author Organization [employer] Address [address] [place] [address] 7t [place] [address] Care Team Providers Care Right Of Way Man Name Role Phone Samantha Gonzales MD Primary Care Provider [phone] Reason for Visit * Reason Comments AUD F/U Encounter Details Date Type Department Care Team (Latest Contact Info) Description 09/11/2024 2:15 PM EST Office Visit [facility] [address] [place], [place] [phone] Kerwin Mendoza MD [address] [place], [place] [phone] Alcohol use, unspecified, uncomplicated (Primary Dx) Social History Tobacco Use Types [...] the past 12 months, has t he [employer], gas, oil or [employer] threatened to shut off services in your [...] Sign Reading Time Taken Comments Blood Pressure 177/90 09/11/2024 2:17 PM EST Pulse 92 09/11/2024 2:17 PM EST Temperature 36.6 ??C (97.8 ??F) 09/11/2024 2:17 PM ES T Respiratory Rate 20 09/11/2024 2:17 PM EST Oxygen Saturation - - Inhaled Oxygen Concentration - - Weight 105 kg (232 lb 0.4 oz) 09/11/2024 2:17 PM EST Height - - Body Mass Index 36.34 09/11/2024 11:31 AM EST documented in this encounter Progress Notes * Kerwin Mendoza MD - 09/11/2024 2:15 PM EST TODAY AUD VISIT 09/11/2024 UTOX: POS BAR NEG FOR ALL OTHER SUBSTANCES Patient with AUD returning to MAT evaluation. Here with his sister and mother. Last seen by this provider in 06/2023. Since that visit, he had significant health issues. 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 Then he was admitted in 04/2024 due to surgical wound infection, treated with I&D andantibiotic treatment. Recently was admitted at [facility] (08/18/2024 - 08/24/2024) for worsening diarrhea. Concern of spinal epidural abscess, but was ruled out. Found to have thrombocytopenia and POLLY. He was on CIWA protocol. Then he spent 1-week at [facility] for alcohol detoxification. Was discharged yesterday after being treated there for 1 week. [facility] a CSS placement was offered at [facility], but patient wished to go home first to address other issues. Currently staying at his mother's place. Still interested in a residential program. No alcohol use for 8 days. Previous HPI: Patient with AUD here for a follow up. Previously undergone AUD intake on 12/14/2022. Started on Naltrexone. Tolerating the medication well without difficulty. Patient with underlying DEBORAH, subdural hematoma, aortic aneurysm, HTN, steatohepatitis, splenomegaly, CKD, venous stasis, lymphedema, iron-def iciency and O66-zivjyevmfk anemia, thrombocytopenia, gout, history of LLE DVT and hypomagnesemia. Long history of alcohol use disorder. States he now consumes 2-3 glasses of wine on weekends only (previously consumed beer and hard liquor along with wine). Attributes his decreased use to Naltrexone and having a new GF (sister of his ex-GF). Admits he typically drinks out of boredom. Ex-GF also struggled with AUD. Discussed about strategies to better cope when he experiences boredom. Reports having a witnessed seizure episode while shopping at [employer] in 09/2022. This occurred 5 days after his last drink. The longest period of sobriety was about 1 month during this hospital and subsequent rehab stays. Denies any further seizure since this episode. States he is unable to pursue in-patient detox program due to taking care of his elderly mother whosuffers from dementia. Willing to continue outpatient MAT and outpatient recovery programs here at [facility]. Previously met with a head boys tennis coach. Denies any issues with opioid/opiates, cocaine or THC. Currently taking multiple supplements including Vitamin C, MVI, Thiamine, Folate & Iron Sulfate. Previously admitted to not taking Magnesium Oxide consistently, but now picked up his new Rx. Hematology (Dr. Peters) administers monthly Vitamin B12 injections. PCP - Dr. Gonzales Previous DSM-V AUD Score 6 (Severe) Objective Vitals: 09/11/24 1417 BP: (!) 177/90 BP Location: Left arm Patient Position: Sitting BP Cuff Size: Adult Pulse: 92 Resp: 20 Temp: 97.8 ??F (36.6 ??C) TempSrc: Oral Weight: 232 lb 0.4 oz (105 kg) Physical Exam Constitutional: Appearance: Normal appearance. Pulmonary: Effort: Pulmonary effort is normal. Neurological: Mental Status: He is alert. Psychiatric: Mood and Affect: Mood normal. Behavior: Behavior normal. Mohan was seen today for aud f/u. Diagnoses and all orders for this visit: Alcohol use, unspecified, uncomplicated (Primary) - POCT STERLING-14 Urine Drug Screen - naltrexone (Depade) 50 MG tablet; Take 1 tablet (50 mg) by mouth Once per day. Patient with AUD here for a follow up Was discharged from [facility] inpatient detox yesterday after 1-week stay Patient is interested in CSS (which was offered at [facility], but patient wished to go home first to address other issues) Currently staying with his mother Still interested in a residential program No alcohol use for 8 days Met with the head boys tennis coach today Unable to find a placement today; patient will return to the CRS department on Saturday to try again Feels safe at his mother's house Previous history of seizure (09/2022) in a setting of no alcohol use for 5 days Also would like to re-try Naltrexone 50mg daily (previously tolerated) Was not able to achieve complete cessation on Naltrexone, but significantly reduced the amount previously Discussed extensively about the risks of alcohol withdrawal in a home setting, including DT, seizure and His triggers for alcohol use are boredom; discussed strategies to cope with this situation Potential adverse effects of the medication reviewed Indications for ER and inpatient detox reviewed Advised to contact the clinic with any worsening symptoms This information has been disclosed to you from records protected by federal confidentiality rules (42 CFR Part 2). The federal rules prohibit you from making any further disclosure of information inthis record that identifies a patient as having or having had a substance use disorder either directly, by reference to publicly available information, or through verification of such identification by another person unless further disclosure is expressly permitted by the written consent of the individual whose information is being disclosed or as otherwise permitted by (see2.3.1). The federal rules restrict any use of the information to investigate or prosecute with regard to a crime any patient with a substance use disorder, except as provided at 2.12??(5) and 2.65. documented in this encounter Plan of Treatment Upcoming Encounters Date Type Department Care Team (Late st Contact Info) Description 10/08/2024 11:00 AM EST Office Visit [facility] [address] [place], [place] [phone] Samantha Gonzales MD 230 [place], [place] [phone] 01/01/2025 10:30 AM EDT Office Visit [facility] OPTOMETRY [address] [place], [place] [phone] Issac, Lima, OD 230 [place] [address] documented as of this encounter Procedures Procedure Name Priority Date/Time Associated Diagnosis Comments POCT STERLING-14 URINE DRUG SCREEN Routine 09/11/2024 2:16 PM EST Alcohol use, unspecified, uncomplicated documented in this encounter Results * POCT STERLING-14 Urine Drug Screen (09/11/2024 2:16 PM EST) THC Negative Cocaine Screen, Urine Negative Opiate Screen, Urine Negative Methamphetamine Screen Urine Negative Amphetamine Screen, Urine Negative Benzodiazepines Screen, Urine Negative Barbiturate Screen, Urine Positive Methadone Screen, Urine Negative Buprenophine Screen, Urine Negative TCA, Urine Negative MDMA Urine Negative ng/mL Oxycodone Screen, Urine Negative Phencyclidine (PCP), Urine Negative Propoxyphene, Urine Negative Fentanyl, Urine Negative Urine Urine specimen obtained by clean catch procedure / Unknown 09/11/2024 2:16 PM EST Kerwin Mendoza MD POINT OF CARE TEST ENTER/EDIT OR DERABLES Final Result documented in this encounter Visit Diagnoses Diagnosis Alcohol use, unspecified, uncomplicated- Primary documented in this encounter Additional Health Concerns Assessment Noted Time PHQ-9 Depression Total Score: 0 06/25/20 24 11:09 AM EST documented as of this encounter Care Teams Right Of Way Man Relationship Specialty Start Date End Date Samantha Gonzales MD [address] [place] [address] PCP - General Family Medicine 07/09/13 [facility] 05/17/24 documented as of this encounter
--- OUTSIDE RECORDS SUMMARY | 2024-10-06 21:21 | XMS_ITS | Encounter Summary ---
Author Organization [employer] Address [address] [facility] 7t [place] [address] Care Team Providers Care Search Strategist Name Role Phone Samantha Gonzales MD Primary Care Provider [phone] Reason for Visit * Reason Onset Date Comments Question: plan of care 09/11/2024 Encounter Details Date Type Department Care Team (Late st Contact Info) Description 09/11/2024 Telephone [facility] [address] [place], [place] [phone] Latisha Elise RN Question: plan of care Social History Tobacco Use Types Packs/Day Years [...] encounter Miscellaneous Notes * Telephone Encounter - Latisha Elise RN - 09/11/2024 3:09 PM EST Pt's sister presents to [facility] after brother's visit requesting clarification regarding plan of care. This communications writer requested clarification regarding HIPAA release: pt had his mother listed who is present, has no phone and per sister she has dementia . Pt present and updated emergency paperwork to puthis sister as first contact/release of information. Sister: Ella. Halina [phone] This communications writer explained MD orders which included an ortho referral, avoid NSAIDS and Rx for lidocainecream. Both pt and sister stated understanding and confirm they have [facility] contact info for further concerns documented in this encounter Plan of Treatment Upcoming Encounters Date Type Department Care Team ([facility] st Contact Info) Description 10/08/2024 11:00 AM EST Office Visit [facility] MED[facility] [address] [place] [address] Samantha Gonzales MD [address] [place] [address] 01/01/2025 10:30 AM EDT Office Visit [facility] OPTOMETRY [address] [place] [address] Lima Davenport, KYLAH [address] [place] [address] documented as of this encounter Visit Diagnoses Not on filedocumented in this encounter Additional Health Concerns Assessment Noted Time PHQ-9 Depression Total Score: 0 06/25/20 24 11:09 AM EST documented as of this encounter Care Teams Search Strategist Relationship Specialty Start Date End Date Samantha Gonzales MD [address] [place] [address] PCP - General Family Medicine 07/09/13 [facility] 05/17/24 documented as of this encounter
--- OUTSIDE RECORDS SUMMARY | 2024-10-06 21:21 | XMS_ITS ---
Author Organization [facility] Address [address] [place] [address] Care Team Providers Care Rn Clinician Name Role Phone Janet SYLVESTER, Samantha Primary Care Provider Eric Flores [facility] [phone] REASON FOR VISIT Patient presents today for anemia and diarrhea Encounters Encounter Location Date Provider Diagnosis [facility] [address] [place] [address] 12/26/2023 Eric Lenz PLAN OF TREATMENT Next Appt Details Provider Name:Eric Lenz , 01/19/2025 01:00:00 PM, [address], [address], [place], [address],
--- OUTSIDE RECORDS SUMMARY | 2024-10-06 21:21 | XMS_ITS | Patient Health Record ---
Author Organization [facility] Address [address] [place] [address] Care Team Providers Care Service Observer Name Role Phone Janet SYLVESTER, Samantha Primary Care Provider Eric Flores [phone] RESULTS Component Value Reference Range Notes Complete Blood Count Auto Di ff (Not yet reviewed by provider) Interpretation: Performing Lab:[facility], [address] [place] [phone] Notes/Report: White Blood Count 5.2 4.8-10.8 X10*3/uL [...] Panel Reviewed date:11/06/2023 11:54:48 PM Interpretation: Performing Lab:[facility], [address] [place] [phone] Notes/Report: Sodium 146 135-145 mmol/L Potassium 4.4 3.3-5.1 mmol/L Chloride 111 96-108 mmol/L Carbon Dioxide 26 22-29 mmol/L Anion Gap 13 12-20 Blood Urea Nitrogen 15 9-16 mg/dL Creatinine 0.91 0.5-1.4 mg/dL Estimated Glomerular Filt Rate > 60 NOTE: For -Ethiopian individuals, multiply the result by 1.210. Chronic Kidney Disease: Estimated GFR < 60 mL/min/1.73m2 Severe Kidney Disease: Estimated GFR < 15 mL/min/1.73m2 Glucose Random 100 60-115 mg/dL Calcium 8.6 8.4-10.2 mg/dL Magnesium Reviewed date:11/06/2023 02:57:18 PM Interpretation: Performing Lab:[facility], [address] [place] [phone] Notes/Report: Magnesium 1.6 1.6-2.6 mg/dL IRON PROFILE Reviewed date:11/06/2023 11:54:59 PM Interpretation: Performing Lab:[facility], [address] [place] [phone] Notes/Report: Iron 76 45-160 mcg/dL Total Iron Binding Capacity 174 228-428 mcg/d L Percent Iron Saturation 44 15-50 % Unsaturated Iron Binding 98 Ferritin Reviewed date:11/06/2023 11:55:09 PM Interpretation: Performing Lab:[facility], [address] [place] [phone] Notes/Report: Ferritin 363 20-250 ng/mL Folate Reviewed date:11/07/2023 08:38:27 AM Interpretation: Performing Lab:[facility], [address], [place] [address] Notes/Report: Folate 3.4 > or = 4.0 ng/mL Reference Values: > or = 4.0 ng/mL < 4.0 ng/mL suggests folate deficiency Methotrexate, aminopterin and folinic acid (leucovorin) are chemotherapeutic agents whose molecular structures are similar to folate; therefore, the [employer] folate assay cannot be used for patients using these drugs. REASON FOR REFERRAL Referring Provider First Name Samantha Referring Provider Last Name Janet Referring Provider Speciality Internal M edicine Referred Organization [facility] Referred Provider Eric Lenz Referred Address [address] [place] [address],[address],[address], Referred Provider Specialty Gastroentero logy General Notes Risa Beckwith 024 12:08:55 PM EDT > [facility] for [facility] with Dr. Lenz on [phone] Referral Priority Routine SOCIAL HISTORY Sex Assigned At : Social History Observation Description Sex Assigned At Unknown PROBLEMS Problem Type ICD Code Onset Dates Problem Status W/U Status Risk SNOMED Code Notes Problem Anemia (D64.9) Active confirmed Anemia (799178640) Problem Iron deficiency anemia (D50.9) Active confirmed Iron deficien cy anemia (54561203) Problem Diverticulosis of large intestine without perforation or abscess without bleeding (K57.30) Active confirmed Diverticul ar disease of colon (133793986) Problem Esophageal reflux (K21.9) Active confirmed Esophageal reflux (412527639) Problem Gastritis (K29.70) Active confirmed Gas tritis (9913434) Encounters Encounter Location Date Provider Diagnosis [facility] [address] [place] [phone] 12/26/2023 Eric Lenz [facility] [address] [place] [phone] 10/06/2023 Eric Lenz Anemia D64.9 [facility] [address] [place] [phone] 12/26/2023 Eric Lenz ASSESSMENTS Encounter Date Diagnosis Assessment Notes Treatment Notes Treatment Clinical Notes 10/06/2023 Anemia (ICD-10 - D64.9) PLAN OF TREATMENT Pending Test Test Name Order Date IRON + IBC (FE) 10/06/2023 CBC w DIFF 10/06/2023 Complete Blood Count Auto Diff Ferritin 10/06/2023 Folate 10/06/2023 Next Appt Details Provider Name:Eric Lenz , 01/19/2025 01:00:00 PM, [address] [place] [address], [address], [place], [address], Insurance Providers Payer Name Payer Address Payer Phone Subscriber Number Group Number Insured Name Patient Relationship to Insured Coverage Start Date Coverage End Date MEDICA[employer] OF [employer] [address] [place] [id number] MARYLIN WALDEN Self - patient is the insured
--- OUTSIDE RECORDS SUMMARY | 2024-10-06 21:21 | XMS_ITS | Encounter Summary ---
Author Organization [employer] Address [address] [facility] 7t [place] [address] Care Team Providers Care Customs Guard Name Role Phone Samantha Gonzales MD Primary Care Provider [phone] Encounter Details Date Type Department Care Team (Latest Contact Info) Description 09/11/2024 Travel Social History Tobacco Use Types Packs/Day [...] Description 10/08/2024 11:00 AM EST Office Visit [facility] [address] [place] [address] Samantha Gonzales MD [address] [place] [address] 01/01/2025 10:30 AM EDT Office Visit [facility] OPTOMETRY [address] [place] [address] Issac, Lima, OD [address] [place] [address] documented as of this encounter Visit Diagnoses Not on filedocumented in this encounter Additional Health Concerns Assessment Noted Time PHQ-9 Depression Total Score: 0 06/25/20 11:09 AM EST documented as of this encounter Care Teams Customs Guard Relationship Specialty Start Date End Date Samantha Gonzales MD [address] [place] [address] PCP - General Family Medicine 07/09/13 [facility] 05/17/24 documented as of this encounter
--- OUTSIDE RECORDS SUMMARY | 2024-10-06 21:21 | XMS_ITS | Encounter Summary ---
Author Organization [employer] Address [address] [facility] 7t [place] [address] Care Team Providers Care Office Bookkeeper Name Role Phone Samantha Gonzales MD Primary Care Provider [phone] Encounter Details Date Type Department Care Team (Late st Contact Info) Description 09/17/2024 Telephone [facility] MEDICINE [address] [place], [place] [phone] Karyn Mann RN Social History Tobacco Use Types Packs/Day Years [...] encounter Miscellaneous Notes * Telephone Encounter - Karyn Mann RN - 09/17/2024 3:48 PM EST Telephone call to pt who stated that he has follow up appt with Dr Sow at [facility] on 09/19/24 at 1:15pm. Will notify provider. * Telephone Encounter - Karyn Mann RN - 09/17/2024 3:44 PM EST ----- Message from Brianna Covington sent at 09/14/2024 5:33 PM EST ----- Please confirm with patient and sister that he has follow-up appointments in place with Dr. Sow for cystoscopy f/u. If new referral is needed please let me know. documented in this encounter Plan of Treatment Upcoming Encounters Date Type Department Care Team (Late st Contact Info) Description 10/08/2024 11:00 AM EST Office Visit [facility] MEDICINE [address] [place], [place] [phone] Samantha Gonzales MD [address] [place] [address] 01/01/2025 10:30 AM EDT Office Visit [facility] OPTOMETRY [address] [place] [address] Lima Davenport, OD [address] [place] [address] documented as of this encounter Visit Diagnoses Not on filedocumented in this encounter Additional Health Concerns Assessment Noted Time PHQ-9 Depression Total Score: 0 06/25/20 24 11:09 AM EST documented as of this encounter Care Teams Office Bookkeeper Relationship Specialty Start Date End Date Samantha Gonzales MD [address] [place] [address] PCP - General Family Medicine 07/09/13 [facility] 05/17/24 documented as of this encounter
--- OUTSIDE RECORDS SUMMARY | 2024-10-06 21:21 | XMS_ITS | Encounter Summary ---
Author Organization [employer] Address [address] [place] [address] 7t [place] [address] Care Team Providers Care Last Puller Name Role Phone Samantha Gonzales MD Primary Care Provider [phone] Encounter Details Date Type Department Care Team ([facility] Contact Info) Description 12/17/2022 Abstract [facility] MED[facility]INE [address] [place] [address] [phone] Zee Szymanski MD [address] [place] [address] [phone] Social History Tobacco Use Types Packs/Day Years [...] Department Care Team (Late Contact Info) Description 10/08/2024 11:00 AM EST Office Visit [facility] MED[facility]INE [address] [place] [address], [place] [address] Samantha Gonzales MD [address] [place] [address] 01/01/2025 10:30 AM EDT Office Visit [facility] OPTOMETRY [address] [place] [address] Issac, Lima, OD [address] [place] [address] documented as of this encounter Visit Diagnoses Not on filedocumented in this encounter Additional Health Concerns Assessment Noted Time PHQ-9 Depression Total Score: 3 12/15/19 23 1:37 PM EDT documented as of this encounter Care Teams Last Puller Relationship Specialty Start Date End Date Samantha Gonzales MD [address] [place], [place] [phone] PCP - General Family Medicine 07/09/13 [facility] 05/17/24 documented as of this encounter
--- OUTSIDE RECORDS SUMMARY | 2024-10-06 21:21 | XMS_ITS | Encounter Summary ---
Author Organization [employer] Address [address] [place] [address] 7t [place] [address] Care Team Providers Care Career Transition Specialist Name Role Phone Samantha Gonzales MD Primary Care Provider [phone] Reason for Visit * Reason Onset Date Comments urgent matter 10/10/2022 Encounter Details Date Type Department Care Team ([facility] st Contact Info) Description 10/10/2022 Telephone [facility] MEDICINE [address] [place], [place] [phone] Samantha Gonzales MD [address] [place], [place] [phone] urgent matter Social History Tobacco Use Types [...] EST Spoke with Karyn. Attended the court. Industrial Machine Operator did not agree with [address] * Telephone Encounter - Luz Elena Ball Jones - 10/10/2022 1:58 PM EST Tc from Karyn with [facility] regarding to pt. Karyn states that is an urgent matter regarding to [address] and will need to speak with PCP, regarding the matter to set up a zoom meeting with PCP and the court. Real Estate Office Manager contacted PCP in advise epic chat, and let PCP know what's going on. Please contact Karyn at [phone] documented in this encounter Plan of Treatment Upcoming Encounters Date Type Department Care Team (Late st Contact Info) Description 10/08/2024 11:00 AM EST Office Visit [facility] MEDICINE [address] [place] [address] Samantha Gonzales MD [address] [place] [address] 01/01/2025 10:30 AM EDT Office Visit [facility] OPTOMETRY [address] [place] [address] Lima Davenport, OD [address] [place] [address] documented as of this encounter Visit Diagnoses Not on filedocumented in this encounter Care Teams Career Transition Specialist Relationship Specialty Start Date End Date Samantha Gonzales MD [address] [place] [address] PCP - General Family Medicine 07/09/13 [facility] 05/17/24 documented as of this encounter
--- OUTSIDE RECORDS SUMMARY | 2024-10-06 21:21 | XMS_ITS | Encounter Summary ---
Author Organization [employer] Address [address] [place] [address] 7[address] [place] [address] Care Team Providers Care Artistic Associate Name Role Phone Samantha Gonzales MD Primary Care Provider Reason for Referral * Consultation (Routine) - Pending Review Specialty Diagnoses / Procedures Referred By Mildred silva Referred To Contact Orthopaedic Surgery Diagnoses Localized pain of right shoulder joint Sara Alejandra MD [address] [place] [address] Phone: tel: fax: Referral ID Status Reason Start Date Expiration Date Visits Requested Visits Authorized [id number] Pending Review Specialty Services Required 09/11/2024 09/11/2025 1 1 Reason for Visit * Reason Comments Walk-In Right shoulder pain Encounter Details Date Type Department Care Team (Late st Contact Info) Description 09/11/2024 1:00 PM EST Office Visit [facility] WALK-IN CENTER [address] [place] [address] [phone] Sara Alejandra MD [address] [place] [address] [phone] Localized pain of left shoulder joint (Primary [...] Frequency of Binge Drinking Not on file 110 02/2024 Score 0 06/25/2024 Depression Answer Date [...] documented in this encounter Progress Notes * Mirian Roach - 09/11/2024 1:00 PM EST Subjective Patient [...] to document services personally performed by Dr. StephanieBillings, based on the patient's response to questions [...] 11:00 AM EST Office Visit [facility] MEDICINE [address] [place] [address] Samantha Gonzales MD [address] [place] [address] 01/01/2025 10:30 AM EDT Office Visit [facility] OPTOMETRY [address] [place] [address] Lima Davenport, OD [address] [place] [address] Scheduled Referrals Name Type Priority Associated Diagnoses [...] PM EST Narrative 09/11/2024 1:15 PM EST ?[facility] ?[address] ?[place] [address] ?XRay Report ? Signed ? Patient: Mohan Gonzalez ?MR#: [id number] ?? [id number] ? : 1960 ?Acct:[id number] ? Age/Sex: 64 / M ?ADM Date: 09/11/24 ? Loc: HO.HHCX ? Attending Dr: Sara Alejandra MD ? Ordering Physician: Sara Alejandra MD ?? Date of Service: 09/11/24 ?? Procedure(s): XR shoulder LT min 2V ?? Accession Number(s): [id number] ? cc: Sara Alejandra MD ? EXAMINATION: [...] DD/ 1205 ? TD/TT: 09/11/24 1230 ? Stoker Installer: ? Procedure Note Donotuseinterpreter, Image - 09/11/2024 [facility] [address] [place] [address] XRay Report Signed Patient: Mohan Gonzalez AMR#: [id number] : [id number]:[id number] Age/Sex: 64 / MADM Date: 09/11/24 Loc: HO.HHCX Attending Dr: Sara Alejandra MD Ordering Physician: Sara Alejandra MD Date of Service: 09/11/24 Procedure(s): XR shoulder LT min 2V Accession Number(s): [id number] cc: Sara Alejandra MD EXAMINATION: XR SHOULDER, [...] 09/11/24 1312 DD/ 1205 TD/TT: 09/11/24 1230 Stoker Installer: Sara Alejandra MD IMG XR PROCEDURES Final Re sult documented in this encounter Visit Diagnoses Diagnosis Localized pain of left shoulder joint- Primary documented in this encounter Additional Health Concerns Assessment Noted Time PHQ-9 Depression Total Score: 0 06/25/20 24 11:09 AM EST documented as of this encounter Care Teams Artistic Associate Relationship Specialty Start Date End Date Samantha Gonzales MD [address] [place] [address] PCP - General Family Medicine 07/09/13 [facility] 05/17/24 documented as of this encounter
--- OUTSIDE RECORDS SUMMARY | 2024-10-06 21:21 | XMS_ITS | Encounter Summary ---
Author Organization [employer] Address [address] [facility] [address] [place] [address] Care Team Providers Care Conical Mixer Name Role Phone Samantha Gonzales MD Primary Care Provider [phone] Reason for Visit * Reason Comments Care Coordination outreach Encounter Details Date Type Department Care Team (Latest Contact Info) Description 09/08/2024 Patient Outreach [facility] [address] [place], [place] [phone] Samantha Gonzales MD [address] [place] [address] Care Coordination (outreach) Social History Tobacco Use [...] to offer services. CHW introducing herself from [facility] CM Department with CHW's name, department and direct contact [phone] requesting call back. Will re-attempt to contact within 5 days. and address not confirmed. documented in this encounter Plan of Treatment Upcoming Encounters Date Type Department Care Team ([facility] st Contact Info) Description 10/08/2024 11:00 AM EST Office Visit [facility] MEDICINE [address] [place] [address] Samantha Gonzales MD [address] [place], [place] [phone] 01/01/2025 10:30 AM EDT Office Visit [facility] OPTOMETRY [address] [place] [address] Lima Davenport, OD [address] [place] [address] documented as of this encounter Visit Diagnoses Not on filedocumented in this encounter Additional Health Concerns Assessment Noted Time PHQ-9 Depression Total Score: 0 06/25/20 24 11:09 AM EST documented as of this encounter Care Teams Conical Mixer Relationship Specialty Start Date End Date Samantha Gonzales MD [address] [place] [address] PCP - General Family Medicine 07/09/13 [facility] 05/17/24 documented as of this encounter
--- OUTSIDE RECORDS SUMMARY | 2024-10-06 21:21 | XMS_ITS | Clinical Summary ---
Author Organization [employer] Address [address] [place] [address] [address] [place] [address] Care Team Providers Care Manuscript Reader Name Role Phone Samantha Gonzales MD Primary Care Provider [phone] Allergies Active Allergy Reactions Criticality Noted Date Comments Azithromycin Swelling High 08/26/2023 Hydrochlorothiazide Swelling 01/29/2012 Statins 02/11/2020 Other reaction(s): Elevated CPK Medications * This document contains information received from the source organization and may not represent a complete record from that organization. acetaminophen (Tylenol) 325 MG tablet Take 2 tablets by mouth every 4 (four) hours if needed for moderate pain. 3 Active folic acid (Folvite) 1 MG tablet Take 1 tablet (1 mg) by mouth in the morning. 90 tablet 3 3 Active Ascorbic Acid (vitamin C) 500 MG tablet TAKE 1 TABLET BY MOUTH TWICE A DAY 180 tablet 4 Active allopurinol (Zyloprim) 300 MG tabletIndications :History of gout TAKE 1 TABLET BY MOUTH EVERY MORNING 90 tablet 4 Active rosuvastatin (Crestor) 5 MG tablet TAKE 1 TABLET BY MOUTH AT BEDTIME 90 tablet 4 Active omeprazole (PriLOSEC) [address] capsule TAKE 1 CAPSULE BY MOUTH EVERY DAY AT 630 IN THE MORNING FOR 28 DAYS 4 Active ferrous sulfate 324 (65 Fe) MG EC tablet Take 324 mg by mouth with breakfast and with evening meal. 4 Active hydrocortisone 1 % cream Apply topically to affected area once or twice daily 120 g 2 4 Active magnesium oxide (Mag-Ox) 400 MG tabletIndications :Hypomagnesemia TAKE 1 TABLET BY MOUTH tid 90 tablet 3 4 Active Multiple Vitamins-Minerals (multivitamin with minerals) tablet Take 1 tablet by mouth Once per day. 5 Active metoprolol succinate XL (Toprol-XL) 25 MG 24 hr tablet Take 1 tablet by mouth Once per day. Do not crush or chew. Active Emollient (Eucerin Advanced Repair) creamIndications: Acquired lymphedema of lower extremity Apply 4 g topically 2 times daily. 454 g 11 5 Active Lidocaine 5 % creamIndications: Localized pain of left shoulder joint Apply topically bid 30 g 3 5 Active naltrexone (Depade) 50 MG tabletIndications :Alcohol use, unspecified, uncomplicated Take 1 tablet (50 mg) by mouth Once per day. 30 tablet 11 5 09/11/19 26 Active cholecalciferol (Vitamin D-3) 50 MCG (1999 UT) tablet Take 1 tablet by mouth Once per day. 5 09/20/19 25 pyridoxine (B-6) 50 MG tablet Take 1 tablet by mouth Once per day. 5 09/20/19 25 Active Problems Problem Noted Date Diagnosed Date [...] ablation in Aug 2018 ?? -following with [facility] wound care clinic, periodically when he has open wounds. -Last seen by [facility] Wound care in October 2021 -usually discharged [...] ablation in Aug 2018 ?? -following with [facility] wound care clinic, periodically when he has open wounds. -Last seen by [facility] Wound care in October 2021 -usually discharged [...] GSV ablation in Aug 2018 -following with [facility] wound care clinic, periodically when he has open wounds. -Last seen by [facility] Wound care in October 2021 -usually discharged [...] GSV ablation in Aug 2018 -following with [facility] wound care clinic, periodically when he has open wounds. -Last seen by [facility] Wound care in October 2021 -usually discharged [...] GSV ablation in Aug 2018 -following with [facility] wound care clinic, periodically when he has open wounds. -Last seen by [facility] Wound care in October 2021 -usually discharged [...] is frequently having diarrhea - following with entertainment reporter - dehydration due to diarrhea on 04/25/23, IVF with Mg given in ED - recheck Assessment & Plan (05/26/2023 6:52 AM EDT): - 01/28/23 Magnesium 1.1 - On magnesium oxide supplementation, but pt is frequently having diarrhea - following with entertainment reporter - dehydration due to diarrhea on 04/25/23, IVF with Mg given in ED - recheck Assessment & Plan (04/25/2023 12:51 PM EDT): - 01/28/23 Magnesium 1.1 - On magnesium oxide supplementation, but pt is frequently having diarrhea - following with entertainment reporter - dehydration due to diarrhea today; anticipate hypomagnesemia again -> sending ER for replacement Assessment & Plan (01/23/2023 4:07 PM EDT): [facility] Hospitalization on 10/30 - 11/02 Lab showed hypomagnesemia and thrombocytopenia Pt is prescribed magnesium supplement; encouraged to improve adherence Pt is advised to hold when he is having diarrhea Assessment & Plan (11/30/2022 6:23 AM EDT): [facility] Hospitalization on 10/30 - 11/02 Lab showed hypomagnesemia and thrombocytopenia Pt is prescribed magnesium supplement; encouraged to improve adherence Stage 2 chronic kidney disease 10/13/2022 Assessment & Plan (07/26/2023 2:10 PM EST): -Real Estate Salesperson: Dr. Kennedy, last appt in Sep 2021 -Hx rhabdomyolysis, on hemodialysis for 1 month in November 2017 - December 2017 -His renal funciton was CKDII level 0244-8324 -Most recent POLLY in Sep 2022, both [...] Assessment & Plan (05/26/2023 6:49 AM EDT): -Real Estate Salesperson: Dr. Kennedy, last appt in Sep 2021 -Hx rhabdomyolysis, on hemodialysis for 1 month in November 2017 - December 2017 -His renal funciton was CKDII level 1510-0550 -Most recent POLLY in Sep 2022, both admission, held lisinopril, spironolactone, and torsemide during 1st admission, and resumed upon discharge -Last lab: 01/28/23 Sodium 135; Potassium 3.6 ; Chloride 99 ; Bicarb 24 ; Calcium 8.0; BUN 19 , Creatinine 1.02 ; EGFR 84 -Avoid nephrotoxic drugs -Continue renal dosing Assessment & Plan (04/25/2023 12:49 PM EDT): -Real Estate Salesperson: Dr. Kennedy, last appt in Sep 2021 -Hx rhabdomyolysis, on hemodialysis for 1 month in November 2017 - December 2017 -His renal funciton was CKDII level 5707-5104 -Most recent POLLY in Sep 2022, both admission, held lisinopril, spironolactone, and torsemide during 1st admission, and resumed upon discharge -Last lab: 01/28/23 Sodium 135; Potassium 3.6 ; Chloride 99 ; Bicarb 24 ; Calcium 8.0; BUN 19 , Creatinine 1.02 ; EGFR 84 -Avoid nephrotoxic drugs -Continue renal dosing Assessment & Plan (01/23/2023 4:04 PM EDT): -Real Estate Salesperson: Dr. Kennedy, last appt in Sep 2021 -Hx rhabdomyolysis, on hemodialysis for 1 month in November 2017 - December 2017 -His renal funciton was CKDII level 9769-2041 -Most recent POLLY in Sep 2022, both admission, held lisinopril, spironolactone, and torsemide during 1st admission, and resumed upon discharge -Last lab: 10/07/22 BUN 31; SCr 1.7, eGFR 47 (Apr 2023 eGFR > 60) -Avoid nephrotoxic drugs -Continue renal dosing Assessment & Plan (11/26/2022 9:32 AM EDT): -Real Estate Salesperson: Dr. Kennedy, last appt in Sep 2021 -Hx rhabdomyolysis, on hemodialysis for 1 month in November 2017 - December 2017 -His renal funciton was CKDII level 0888-5089 -Most recent POLLY in Sep 2022, both admission, held lisinopril, spironolactone, and torsemide during 1st admission, and resumed upon discharge -Last lab: 10/07/22 BUN 31; SCr 1.7, eGFR 47 (Apr 2023 eGFR > 60) -Avoid nephrotoxic drugs -Recheck lab -Will use renal dosing Assessment & Plan (10/13/2022 5:03 PM EST): -Real Estate Salesperson: Dr. Kennedy, last appt in Sep 2021 -Hx rhabdomyolysis, on hemodialysis for 1 month in November 2017 - December 2017 -His renal funciton was CKDII level 2322-3512 -Most recent POLLY in Sep 2022, both [...] supplementation -currently receiving B12 IM from his assembly adjuster, Dr. Peters Assessment & Plan (07/25/2023 6:24 AM EST): -likely nutritional and excessive alcohol consumption -continue vitamin supplementation -currently receiving B12 IM from his assembly adjuster, Dr. Peters Assessment & Plan (10/13/2022 5:15 PM EST): -likely nutritional and excessive alcohol consumption -continue vitamin supplementation Iron deficiency anemia 10/13/2022 Assessment & Plan (07/25/2023 6:25 AM EST): -Received Venfor IV 300 mg x 2 during 1st hospitalization in [facility] in Sep 2022 -Continue follow-up with assembly adjuster Assessment & Plan (10/13/2022 5:17 PM EST): -Received Venfor IV 300 mg x 2 during 1st hospitalization in [facility] in Sep 2022 -Continue follow-up with assembly adjuster Anemia of chronic disease 10/13/2022 Assessment & Plan (06/25/2024 12:12 PM EST): - Both Iron and Vitamin-B12 deficiency, and anemia of chronic diseaes - followed by assembly adjuster, Dr. Peters Assessment & Plan (07/26/2023 2:12 PM EST): - Both Iron and Vitamin-B12 deficiency, and anemia of chronic diseaes -followed by assembly adjuster, Dr. Peters, last seen on 06/03/23 Assessment & Plan (05/26/2023 6:51 AM EDT): Both Iron and Vitamin-B12 deficiency -followed by assembly adjuster Assessment & Plan (04/25/2023 10:40 AM EDT): Both Iron and Vitamin-B12 deficiency -followed by assembly adjuster Assessment & Plan (01/23/2023 4:06 PM EDT): Both Iron and Vitamin-B12 deficiency -followed by assembly adjuster Assessment & Plan (11/26/2022 9:51 AM EDT): Both Iron and Vitamin-B12 deficiency -followed by assembly adjuster Assessment & Plan (10/13/2022 5:18 PM EST): -multifactorial - nutritional, CKD -following with [facility] assembly adjuster Anemia 01/15/2018 Aneurysm of ascending aorta 05/29/2016 Assessment & Plan (11/12/2023 12:18 PM EDT): -Most recent echo on 04/12/21, EF 60-65%, dilated ascending aorta 41mm -Echo on 04/05/20, EF 55-60%, dilated ascending aorta 42 mm, -Echo on 04/01/19 EF 60-65%, Aortic root dimension 37~43mm -Seen by his bindery leadperson, Dr. Claudio on 03/14/23 -Pt advised to check next Cardiogram appt which is in August 2023 -Work on risk factor management Assessment & Plan (07/25/2023 6:22 AM EST): -Most recent echo on 04/12/21, EF 60-65%, dilated ascending aorta 41mm -Echo on 04/05/20, EF 55-60%, dilated ascending aorta 42 mm, -Echo on 04/01/19 EF 60-65%, Aortic root dimension 37~43mm -Seen by his bindery leadperson, Dr. Claudio on 03/14/23 -Pt advised to check next Cardiogram appt which is in August 2023 -Work on risk factor management Assessment & Plan (05/26/2023 6:48 AM EDT): -Most recent echo on 04/12/21, EF 60-65%, dilated ascending aorta 41mm -Echo on 04/05/20, EF 55-60%, dilated ascending aorta 42 mm, -Echo on 04/01/19 EF 60-65%, Aortic root dimension 37~43mm -Seen by his bindery leadperson, Dr. Claudio on 03/14/23 -Pt advised to check next Cardiogram appt which is in August 2023 -Work on risk factor management Assessment & Plan (04/25/2023 10:42 AM EDT): -Most recent echo on 04/12/21, EF 60-65%, dilated ascending aorta 41mm -Echo on 04/05/20, EF 55-60%, dilated ascending aorta 42 mm, -Echo on 04/01/19 EF 60-65%, Aortic root dimension 37~43mm -Seen by his bindery leadperson, Dr. Claudio on 03/14/23 -Pt advised to check next Cardiogram appt which is in August 2023 -Work on risk factor management Assessment & Plan (11/30/2022 6:19 AM EDT): -Most recent echo on 04/12/21, EF 60-65%, dilated ascending aorta 41mm -Echo on 04/05/20, EF 55-60%, dilated ascending aorta 42 mm, -Echo on 04/01/19 EF 60-65%, Aortic root dimension 37~43mm -Seen by his bindery leadperson, Dr. Claudio on n 07/11/22 -Pt advised to check next Cardiogram appt -Work on risk factor management Assessment & Plan (10/13/2022 5:10 PM EST): -Most recent echo on 04/12/21, EF 60-65%, dilated ascending aorta 41mm -Echo on 04/05/20, EF 55-60%, dilated ascending aorta 42 mm, -Echo on 04/01/19 EF 60-65%, Aortic root dimension 37~43mm -Seen by his bindery leadperson, Dr. Claudio on n 07/11/22 -Pt advised [...] to [facility]. Pt will meet with Roofing Applicator today. Assessment & Plan (10/13/2022 5:30 PM [...] 25 mg daily which was discontinued by entertainment reporter - Improve CPAP adherence Tx history - Amlodipine was discontinued due to LE edema and furosemide was switched to torsemide by his bindery leadperson. - Lisinopril was discontinued when he had [...] furosemide was switched to torsemide by his bindery leadperson. - Lisinopril was discontinued when he had [...] furosemide was switched to torsemide by his bindery leadperson. - Lisinopril was discontinued when he had [...] metoprolol succinate 75 mg daily (Dr. Claudio, bindery leadperson, increased to 100 mg daily, but his discharge medication list shows 75 mg daily) - Continue torsemide 20 mg bid - Continue spirolactone 25 mg daily - Continue lisinopril 5mg daily - Improve CPAP adherence ?? Tx history - Amlodipine was discontinued due to LE edema and furosemide was switched to torsemide by his bindery leadperson. - Lisinopril was discontinued when he had [...] metoprolol succinate 75 mg daily (Dr. Claudio, bindery leadperson, increased to 100 mg daily, but his discharge medication list shows 75 mg daily) - Continue torsemide 20 mg bid - Continue spirolactone 25 mg daily - Continue lisinopril 5mg daily - Improve CPAP adherence Tx history - Amlodipine was discontinued due to LE edema and furosemide was switched to torsemide by his bindery leadperson. - Lisinopril was discontinued when he had [...] metoprolol succinate 75 mg daily (Dr. Claudio, bindery leadperson, increased to 100 mg daily, but his discharge medication list shows 75 mg daily) - Continue torsemide 20 mg bid - Continue spirolactone 25 mg daily - Continue lisinopril 5mg daily - Improve CPAP adherence Tx history - Amlodipine was discontinued due to LE edema and furosemide was switched to torsemide by his bindery leadperson. - Lisinopril was discontinued when he had [...] metoprolol succinate 75 mg daily (Dr. Claudio, bindery leadperson, increased to 100 mg daily, but his discharge medication list shows 75 mg daily) - Continue torsemide 20 mg bid - Continue spirolactone 25 mg daily - Continue lisinopril 5mg daily - Improve CPAP adherence Tx history - Amlodipine was discontinued due to LE edema and furosemide was switched to torsemide by his bindery leadperson. - Lisinopril was discontinued when he had [...] metoprolol succinate 75 mg daily (Dr. Claudio, bindery leadperson, increased to 100 mg daily, but his discharge medication list shows 75 mg daily) - Continue torsemide 20 mg bid - Continue spirolactone 25 mg daily - Continue lisinopril 5mg daily - Improve CPAP adherence Tx history - Amlodipine was discontinued due to LE edema and furosemide was switched to torsemide by his bindery leadperson. - Lisinopril was discontinued when he had [...] for AUD clinic this Saturday Kidney lesion, tunica-biloxi, left 10/13/2022 06/15/2024 Assessment & Plan (07/25/2023 [...] was recommended -Further evaluation with MRI Encounters * This document contains information received from the source organization and may not represent a complete record from that organization. Date Type Department Care Team Description 10/06/[address] [address] Darcy Mariee MA chart prep 09/17/[address] [address] Karyn Mann RN 09/15/2024 Patient Outreach [facility] [address] [place], [place] [phone] Samantha Gonzales MD Care Coordination (Outreach) 09/14/2024 Patient Outreach [address] [address] Brandon Hargrove Recovery Supports 09/11/2024 2:15 PM EST Office Visit [address] [address] Kerwin Mendoza MD Alcohol use, unspecified, uncomplicated (Primary Dx) 09/11/2024 1:00 PM EST Office Visit [facility] [address] [place] [id number] Sara Alejandra MD Localized pain of left shoulder joint (Primary Dx) 09/11/2024 Telephone [facility] [address] [place] [address] Latisha Elise, ROSALINDA Question: plan of care 09/11/2024 Travel 09/08/2024 Patient Outreach [facility] [address] [place], [place] [phone] Samantha Gonzales MD Care Coordination (outreach) 09/03/2024 10:30 AM EST Office Visit [address] [address] Brianna Covington ANP Hospital discharge follow-up (Primary Dx); POLLY (acute kidney injury) (CMS/HCC); Thrombocytopenia (CMS/HCC); Alcohol use disorder; Acquired lymphedema of lower extremity; Stage 3 chronic kidney disease, unspecified whether stage 3a or 3b CKD (CMS/HCC); Rectal bleeding 09/03/2024 Patient Outreach [address] [address] Brandon Hargrove Recovery Supports 09/03/2024 Travel 09/02/[address] [address] Samantha Gonzales MD FYI 09/02/[address] [address] Nora Booker MA chart prep 09/02/2024 Patient Outreach [facility] [address] [place], [place] [phone] Samantha Gonzales MD Care Coordination (Outreach) 08/31/2024 Patient Outreach [address] [address] Samantha Gonzales MD Transition Of Care (Tcm) (RE: F APPT REMINDER ) 08/27/[address] [address] Samantha Gonzales MD vna services 08/25/2024 Patient Outreach [facility] [address] [place] [address] Samantha Gonzales MD Care Coordination (Outreach) 08/25/2024 Patient Outreach [facility] [address] [place] [address] Samantha Gonzales MD Care Coordination (Outreach/) 08/21/2024 Patient Outreach [facility] [address] [place], [place] [phone] Samantha Gonzales MD Transition Of Care (Tcm) (HDF scheduled. ) 08/17/2024 Orders Only GENERIC EXTERNAL DATA DEPARTMENT Provider, Generic External Data from Last 3 Months Immunizations Name Administration [...] 20 09/11/2024 2:17 PM EST Oxygen Saturation 98% 09/11/2024 11:31 AM EST Inhaled Oxygen Concentration - - Weight 105 kg (232 lb 0.4 oz) 09/11/2024 2:17 PM EST Height 170.2 cm (5' 7 ) 09/11/2024 11:31 AM EST Body Mass Index 36.34 09/11/2024 11:31 AM EST Plan of Treatment Upcoming Encounters Date Type Department Care Team (Late st Contact Info) Description 10/08/2024 11:00 AM EST Office Visit [facility] [address] [place] [address] Samantha Gonzales MD [address] [place] [address] 01/01/2025 10:30 AM EDT Office Visit [facility] [address] [place] [address] Lima Davenport, OD [address] [place] [address] Health Maintenance Due Date Last Done Comments [...] 06/25/2025 06/25/2024 Depression Screening 06/25/2025 06/25/2024, 06/25/20 Tobacco Screening 09/11/2025 09/11/2024 Lipid Panel 07/02/2029 07/02/2024, 01/17, 11/03/2021 DTaP/Tdap/Td Vaccines (3 - Td or Tdap) 07/28/2032 07/28/2022, 07/21/2014, 08/19/2008 Colonoscopy 09/20/2033 09/20/2023 Colorectal Cancer Screening 09/20/2033 Zoster Vaccines Completed 06/12/2022, 05/20, 04/09/2022, Additional history exists Pneumococcal Vaccine: 50+ Years Completed 11/26/2022, 07/25/2018, 07/21/2014 Hepatitis C Screening [...] 2:16 PM EST Alcohol use, unspecified, uncomplicated XR SHOULDER 2+ VIEWS LEFT Routine 09/11/2024 12:05 PM EST Localized pain of left shoulder joint CT ABDOMEN PELVIS W CONTRAST Routine 08/17/2024 8:[address] LUMBAR SPINE WO CONTRAST Routine 08/17/2024 7:21 PM EST XR CHEST 1 VIEW Routine 08/17/2024 7:05 PM EST ETHANOL Routine 08/17/2024 6:29 PM EST BLOOD CULTURE (SECOND) Routine 08/17/2024 6:29 PM EST VENOUS BLOOD [...] CULTURE (FIRST) Routine 08/17/2024 6:13 PM EST LIPID PANEL WITH REFLEX TO DIRECT LDL Routine 07/02/2024 11:24 AM EST Essential hypertension Nausea vomiting and diarrhea HM COLONOSCOPY Routine 09/20/2023 HEPATITIS C AB W/REFL TO HCV RNA, QN, PCR Routine 01/28/2023 9:34 AM EDT Alcohol use disorder, severe, dependence (CMS/HCC) from Last 3 Months or Most Recently Relevant to Health Maintenance Results * POCT STERLING-14 Urine Drug Screen [...] procedure / Unknown 09/11/2024 2:16 PM EST us Kerwin Mendoza MD POINT OF CARE TEST ENTER/EDIT OR DERABLES Final Result * XR Shoulder 2+ Views Left (09/11/2024 12:05 PM EST) Anatomical Region Laterality Modality Upper Extremities, Shoulder Left Radi ographic Imaging 09/11/2024 12:0 5 PM EST Narrative 09/11/2024 1:15 PM EST ?[facility] ?[address] ?[place] [address] ?XRay Report ? Signed ? Patient: ,Mohan A ?MR#: [id number] ?? [id number] ? : 1960 ?Acct:[id number] ? Age/Sex: 64 / M ?ADM Date: /24/25 ? Loc: HO.HHCX ? Attending Dr: Sara Alejandra MD ? Ordering Physician: Sara Alejandra MD ?? Date of Service: 09/11/24 ?? Procedure(s): XR shoulder LT min 2V ?? Accession Number(s): [id number] ? cc: Sara Alejandra MD ? EXAMINATION: [...] DD/ 1205 ? TD/TT: 09/11/24 1230 ? Production Consultant: ? Procedure Note Sanket, Image - 09/11/2024 [place] [address] XRay Report Signed Patient: Mohan Gonzalez AMR#: [id number] : 1960cct:[id number] Age/Sex: 64 / MADM Date: 09/11/24 Loc: HO.HHCX Attending Dr: Sara Alejandra MD Ordering Physician: Sara Alejandra MD Date of Service: 09/11/24 Procedure(s): XR shoulder LT min 2V Accession Number(s): [id number] cc: Sara Alejandra MD EXAMINATION: XR SHOULDER, [...] Kaushal Trujillo MD 09/11/2024 01:12 PM EST RP Dictated By: Kaushal Trujillo MD Signed By: <Electronically signed by Kaushal Trujillo MD in OV> 09/11/24 1312 DD/ 1205 TD/TT: 09/11/24 1230 Production Consultant: us Sara Alejandra MD IMG XR PROCEDURES Final Re sult * CT Abdomen Pelvis w/ Contrast (08/17/2024 8:44 PM EST) Anatomical Region Laterality Modality Body, Pelvis, Abdomen Computed T omography 08/17/2024 8:44 PM EST Narrative 08/17/2024 8:46 PM EST ? [facility] ?[address] ?[place] [address] ? CT Scan Report ? Signed ? Patient: Mohan Gonzalez ?MR#: [id number] ?? [id number] ? : 1960 ?Acct:[id number] ? Age/Sex: 64 / M ?ADM Date: 08/17/24 ? Loc: HO.ED ? Attending Dr: ? Ordering Physician: Vito Marquez MD ?? Date of Service: 08/17/24 ?? Procedure(s): CT abdomen pelvis w IV con ?? Accession Number(s): [id number] ? cc: Vito Marquez MD; [facility] ? Report Number: ?? [id number]: Total DLP = ??703.00 mGy-cm ? CLINICAL HISTORY: abd pain ? CT abdomen and pelvis with contrast ? Comparison: CT/ND/SR - CT ABDOMEN PELVIS WO IV CON [...] ? DD/ 43 ? TD/TT: 08/17/242043 ? Production Consultant: ? Procedure Note Mallorie Coles - 08/17/2024 [facility] [address] [place] [address] CT Scan Report Signed Patient: Mohan Gonzalez AMR#: [id number] : 1960cct:[id number] Age/Sex: 64 / MADM Date: 08/17/24 Loc: HO.ED Attending Dr: Ordering Physician: Vito Marquez MD Date of Service: 08/17/24 Procedure(s): CT abdomen pelvis w IV con Accession Number(s): [id number] cc: Vito Marquez MD; [facility] Report Number: [id number]: Total DLP = 703.00 mGy-cm CLINICAL HISTORY: abd pain CT abdomen and pelvis with contrast Comparison: CT/ND/SR - CT ABDOMEN PELVIS WO IV CON [...] in OV> 08/17/242044 DD/ 43 TD/TT: 08/17/242043 Production Consultant: [facility] External Provider IMG CT PROCEDURES Final Result * CT Lumbar Spine w/o Contrast (08/17/2024 7:21 PM EST) Anatomical Region Laterality Modality Spine, L-spine Computed Tomogra phy 08/17/2024 7:21 PM EST Narrative 08/17/2024 7:23 PM EST ? [facility] ?[address] ?[place] [address] ? CT Scan Report ? Signed ? Patient: Mohan Gonzalez ?MR#: [id number] ?? [id number] ? : 1960 ?Acct:[id number] ? Age/Sex: 64 / M ?ADM Date: 08/17/24 ? Loc: HO.ED ? Attending Dr: ? Ordering Physician: Vito Marquez MD ?? Date of Service: 08/17/24 ?? Procedure(s): CT lumbar spine wo IV con ?? Accession Number(s): [id number] ? cc: Vito Marquez MD; [facility] ? Report Number: ?? [id number]: Total DLP = ??688.00 mGy-cm ? CLINICAL [...] ? DD/ 20 ? TD/TT: 08/17/241920 ? Production Consultant: ? Procedure Note Donotuseinterpreter, Image - 08/17/[address] [address] [address] Scan Report Signed Patient: Mohan Gonzalez AMR#: [id number] : 1960cct:[id number] Age/Sex: 64 / MADM Date: 08/17/24 Loc: HO.ED Attending Dr: Ordering Physician: Vito Marquez MD Date of Service: 08/17/24 Procedure(s): CT lumbar spine wo IV con Accession Number(s): [id number] cc: Vito Marquez MD; [facility] Report Number: [id number]: Total DLP = 688.00 mGy-cm CLINICAL HISTORY: [...] in OV> 08/17/241921 DD/ 20 TD/TT: 08/17/241920 Production Consultant: us [facility] External Provider IMG CT PROCEDURES Final Result * XR Chest 1 View (08/17/2024 7:05 PM EST) Anatomical Region Laterality Modality Chest Radiographic Paty ging 08/17/2024 7:05 PM EST Narrative 08/17/2024 7:06 PM EST ? [facility] ?[address] ?[place] [address] ?XRay Report ? Signed ? Patient: Drummer,Mohan A ?MR#: [id number] ?? [id number] ? : 1960 ?Acct:[id number] ? Age/Sex: 64 / M ?ADM Date: 08/17/24 ? Loc: HO.ED ? Attending Dr: ? Ordering Physician: Vito Marquez MD ?? Date of Service: 08/17/24 ?? Procedure(s): XR chest 1V ?? Accession Number(s): [id number] ? cc: Vito Marquez MD; [facility] ? CLINICAL HISTORY: wheezing ? 1 [...] DD/ 1905 ? TD/TT: 08/17/24 1905 ? Production Consultant: ? Procedure Note Sanket, Image - 08/17/2024 [place] [address] XRay Report Signed Patient: Mohan Gonzalez AMR#: [id number] : 1960cct:[id number] Age/Sex: 64 / MADM Date: 08/17/24 Loc: HO.ED Attending Dr: Ordering Physician: Vito Marquez MD Date of Service: 08/17/24 Procedure(s): XR chest 1V Accession Number(s): [id number] cc: Vito Marquez MD; [facility] CLINICAL HISTORY: wheezing 1 view chest [...] in OV> 08/17/241905 DD/ 04 TD/TT: 08/17/241904 Production Consultant: [facility] External Provider IMG XR PROCEDURES Final Result * Blood Culture (Second) (08/17/2024 6:29 PM EST) Blood Venous blood specimen / Unknown 08/17/2024 6:29 PM EST 08/17/2024 6:34 PM EST Comment:Blood Narrative [facility] - 08/22/2024 8:34 PM EST Blood Culture (Second) No growth after 5 days. Specimen Source: Blood Generic External Data Provider LAB MICROBIOLOGY - GENERAL ORDERABLES Final Result Performing Organization Address [facility] Co de Phone Number [facility] [address] [place] [phone] * Ethanol (08/17/2024 6:29 PM EST) ETHANOL (MG/DL) IN SER/PLAS <10 mg/dL [facility] Comment:Serum/plasma ethanol results are to be used formedical/treatment purposes only. 08/17/2024 6:29 PM EST 08/17/2024 6:34 PM EST Generic External Data Provider LAB BLOOD ORDERAB LES Final Result Performing Organization Address [facility] Co de Phone Number [facility] [address] [place] [phone] * (ABNORMAL) VENOUS BLOOD GAS (08/17/2024 6:22 PM EST) VBG pH 7.37 7.32 - 7.43 [facility] Comment:METER #: [id number] additional_comment: Cb rodrisa VBG PCO2 35 mmHg [facility] Comment:METER #: [id number] additional_comment: Adonay manzanares VBG PO2 40 mmHg [facility] Comment:METER #: [id number] additional_comment: Adonay MULLIGANG Base Excess -3.9 mmol/L [facility] Comment:METER #: [id number] additional_comment: Adonay MULLIAGNG HCO3 20(L) 22 - 26 mmol/L [facility] Comment:METER #: [id number] additional_comment: Adonay manzanares O2 Sat, Jovan 59.0 % [facility] Comment:METER #: [id number] additional_comment: Adonay manzanares 08/17/2024 6:22 PM EST 08/17/2024 6:27 PM EST us Generic External Data Provider LAB BLOOD ORDERAB LES Final Result [facility] [address] [place] [phone] * SARS-CoV-2 RNA, Influenza A/B, and RSV RNA, Ql NAAT (08/17/2024 6:14 PM EST) Influenza A PCR NEGATIVE Negative [facility] Influenza B PCR NEGATIVE Negative [facility] Resp Syncy Virus RNA Qual PCR NEGATIVE Negative [facility] SARS COV2 PCR NEGATIVE Negative [facility] Comment:All test results mus t [...] use by authorized laboratories.Testing performed on the [employer] GeneXpert utilizingreal-time RT-PCR.All SARS CoV2 and positive influenza A/B results arereported to [facility]. 08/17/2024 6:14 PM EST 08/17/2024 6:20 PM EST Generic External Data Provider LAB MICROBIOLOGY - GENERAL ORDERABLES Final Result Performing Organization Address [facility] Co de Phone Number [facility] [address] [place] [phone] * Blood Culture (First) (08/17/2024 6:13 PM EST) Blood Venous blood specimen / Unknown 08/17/2024 6:13 PM EST 08/17/2024 6:20 PM EST Comment:Blood Narrative [facility] - 08/20/2024 11:08 AM EST [...] Culture (First) Gram stain reviewed by a Sample Preparation Supervisor Blood Culture (First) MRSA PCR Blood Culture (First) MRSA: Negative, SA: Negative Coag negative Staphylococcus CBLD STANEG comment Unlikely pathogen; call Micro if full workup indicated. Results of Blood Culture gram stain called to and read back by ADRIANA at 2252 on 08/18/24 by TIFFANIE. Specimen Source: Blood Generic External Data Provider LAB MICROBIOLOGY - GENERAL ORDERABLES Final Result Performing Organization Address [facility]/ZIP Co de Phone Number [facility] [address] [place] [phone] * High Sensitivity Troponin I (08/17/2024 6:13 PM EST) TROPONIN I HIGH SENSITIVITY 4.3 <3.5 - 35.0 ng/L [facility] Comment:The Erwin high sens itivity Troponin-I results should beused in conjunction with other diagnostic information suchas ECG, clinical observations and information, and patientsymptoms to aid in the diagnosis of SC. 08/17/2024 6:13 PM EST 08/17/2024 6:20 PM EST us Generic External Data Provider LAB BLOOD ORDERAB LES Final Result [facility] [address] [place] [phone] * (ABNORMAL) CBC auto differential (08/17/2024 6:13 PM EST) White Blood Count 6.4 4.8 - 10.8 X10*3/uL [facility] Red Blood Count 3.62(L) 4.60 - 5.80 X10*6/uL [facility] Hemoglobin 11.0(L) 14.0 - 18.0 g/dl [facility] Hematocrit 32.9(L) 42.0 - 52.0 % [facility] Mean Corpuscular Volume 90.9 80.0 - 98.0 fL [facility] Mean Corpuscular Hemoglobin 30.4 27.0 - 33.0 pg [facility] Mean Corpuscular HGB Conc 33.4 31.0 - 36.0 g/dl [facility] Red Cell Distribution Width 16.3(H) 11.0 - 16.0 % [facility] Platelet Count 49(L) 160 - 400 X10*3/uL [facility] Mean Platelet Volume 9.1(L) 9.4 - 12.4 fL [facility] Neutrophils Percent Auto 77.3(H) 45 - 73 % [facility] Imm Gran Pct Auto 0.3 0.0 - 0.4 % [facility] Lymphocytes Percent Auto 14.6(L) 20 - 40 % [facility] Monocytes Percent Auto 6.4 2 - 11 % [facility] Eosinophils Percent Auto 0.6 0 - 4 % [facility] Basophils Percent Auto 0.8 0 - 2 % [facility] NRBC Pct Auto 0.0 0.0 - 0.2 /100WBC [facility] Neutrophils Absolute Auto 4.9 2.0 - 8.3 x10*3/uL [facility] Imm Gran Abs Auto 0.02 0.00 - 0.03 X10*3/uL [facility] Lymphocytes Absolute Auto 0.9(L) 1.2 - 4.9 X10*3/uL [facility] Monocytes Absolute Auto 0.4 0.1 - 1.2 X10*3/uL [facility] Eosinophils Absolute Auto 0.0 0.0 - 0.4 X10*3/uL [facility] Basophils Absolute Auto 0.1 0.0 - 0.2 X10*3/uL [facility] NRBC Abs Auto 0.000 0.0 - 0.012 X10*3/uL [facility] 08/17/2024 6:13 PM EST 08/17/2024 6:20 PM EST us Generic External Data Provider LAB BLOOD ORDERAB LES Final Result Performing Organization Address City/[facility]/ZIP Co de Phone Number [facility] [address] [place] [phone] * (ABNORMAL) Lactic Acid (08/17/2024 6:13 PM EST) Lactic Acid 2.5(HH) 0.5 - 2.0 mmol/L [facility] Comment:Critical value for t est(s): LATIC ACID Results called toand read back by: MELISSA Person calling: [email or web address] Date:08/17/24 Time: 1843 08/17/2024 6:13 PM EST 08/17/2024 6:20 PM EST us Generic External Data Provider LAB BLOOD ORDERAB LES Final Result Performing Organization Address [facility]/ZIP Co de Phone Number [facility] [address] [place] [phone] * (ABNORMAL) Basic Metabolic Panel (08/17/2024 6:13 PM EST) Sodium 142 135 - 145 mmol/L [facility] Potassium 4.8 3.3 - 5.1 mmol/L [facility] Chloride 104 96 - 108 mmol/L [facility] Carbon Dioxide 19(L) 22 - 29 mmol/L [facility] Anion Gap 24(H) 12 - 20 [facility] Urea Nitrogen (BUN) 18(H) 9 - 16 mg/dL [facility] Creatinine, Serum 1.08 0.5 - 1.4 mg/dL [facility] Creatinine Clr Calc Pharmacy 79.1 [facility] Comment:eGFR (calculated fro m the MDRD study equation) and eCrCl(calculated from the Cockcroft-Gault equation) are based ondifferent parameters and may not yield comparable results.If eCrCl result is absurd, please check patient'sheight/weight. Estimated Glomerular Filt Rate >60 [facility] Comment:Chronic Kidney Disea se: Estimated GFR < 60 mL/min/1.90q8Vsgtyo Kidney Disease: Estimated GFR < 15 mL/min/1.73m2 Glucose 90 60 - 115 mg/dL [facility] Calcium 9.0 8.4 - 10.2 mg/dL [facility] 08/17/2024 6:13 PM EST 08/17/2024 6:20 PM EST us Generic External Data Provider LAB BLOOD ORDERAB LES Final Result [facility] [address] [place] [phone] * Lipid Panel with Reflex to Direct LDL (07/02/2024 11:24 AM EST) Triglycerides 83 <150 mg/dL [facility] Comment:Desirable Triglyceri de: less than 150 mg/dLBorderline High Triglyceride 150-199 mg/dLHigh Triglyceride: 200-499 mg/dLVery High Triglyceride: greater than or equal to 5OO mg/dL Cholesterol 150 <200 mg/dL [facility] Comment:Desirable Cholestero l: less than 200 mg/dLBorderline High Cholesterol: 200-239 mg/dLHigh Cholesterol: greater than 239 mg/dL LDL Cholesterol Calculated 68 <100 mg/dL [facility] Comment:Desirable LDL: less than 100 mg/dLNear Optimal/Above Optimal LDL: 110- 129 mg/dLBorderline High LDL: 130-159 mg/dLHigh LDL: 160-189 mg/dLVery High LDL: greater than or equal to 190 mg/dL HDL Cholesterol 66 >40 mg/dL [facility] Comment:Desirable HDL: great er than 40 mg/dL Note: This HDL assay may give artificially low results in patients with liver disease. Blood 07/02/2024 11:2 4 AM EST 07/02/2024 1:19 PM EST Samantha Gonzales MD LAB BLOOD ORDERABLES Final Resul t [facility] [address] [place] [phone] * Hm Colonoscopy (09/20/2023) Colonoscopy Normal Normal Historical Provider HEALTH MAINTENANCE Final Result * Hepatitis C Antibody with Reflex to HCV, RNA, Quantitative, Real-Time PCR (01/28/2023 9:34 AM EDT) Hepatitis C Antibody NON-REACT GENI NON-REACT GENI [employer] [place] [employer] Index 0.04 <1.00 [employer] Comment: HCV antibody was non-reactive. There is no laboratory evidence of HCV infection. In most cases, no further action is required. However, if recent HCV exposure is suspected, a test for HCV RNA (test code 61066) is suggested. For additional information please refer to http://education.AGELON ?/faq/DBP88t9 (This link is being provided for informational/ educational purposes only.) Blood Venous blood specimen / Unknown 01/28/2023 9:34 AM EDT 01/28/2023 9:34 AM EDT Narrative [facility] - 01/28/2023 9:34 PM EDT FASTING:YES FASTING: YES us Kerwin Mendoza MD LAB BLOOD ORDERABLES Final Resul t [facility] [address], [place] [phone] [facility] [employer] [facility] [address] [place] [phone] from Last 3 Months or Most Recently Relevant to Health Maintenance Insurance [employer] Care Teams Manuscript Reader Relationship Specialty Start Date End Date Samantha Gonzales MD [address] [place] [address] PCP - General Family Medicine 07/09/13 [facility] 05/17/24
--- NOTE | 2024-10-06 22:06 | ED_ITS ---
HPI - Extremity Problem General Chief complaint: Extremity Injury, Upper Stated complaint: fall on ice pain in thumb and fingers Time Seen by Provider: 10/06/24 21:58 Source: patient and EMS Mode of arrival: EMS Limitations: no limitations History of Present Illness ED Provider: DR. Melendez HPI Narrative: 64-year-old male came in for evaluation of left hand/ thumb /elbow pain. Patient was walking his 2 dogs in the morning when they suddenly pulled him, patient was about to slip and fall on black ice was able to catch himself before falling down and hold onto a rail, patient initially felt okay then started to have left thumb pain, left wrist pain, and left elbow pain. Patient declined a full fall or head injury. Related Data Home Medications ?Medication ?Instructions ?Recorded ?Confirmed metoprolol succinate 50 mg 50 mg PO DAILY 10/30/22 09/23/24 tablet,extended release 24 hr rosuvastatin 5 mg tablet 5 mg PO BEDTIME 08/26/23 09/23/24 cyanocobalamin (vitamin B-12) 1,000 mcg IM Q30D 02/05/24 09/23/24 1,000 mcg/mL injection solution allopurinol 300 mg tablet 300 mg PO DAILY 07/29/24 09/23/24 ascorbate calcium (vitamin C) 500 1 g PO DAILY 07/29/24 09/23/24 mg tablet cholecalciferol (vitamin D3) 50 50 mcg PO DAILY 07/29/24 09/23/24 mcg (2,000 unit) capsule ferrous fumarate 325 mg (106 mg 650 mg PO DAILY 07/29/24 09/23/24 iron) tablet losartan 25 mg tablet 12.5 mg PO DAILY 07/29/24 09/23/24 spironolactone 25 mg tablet 25 mg PO DAILY 07/29/24 09/23/24 Previous Rx's ?Medication ?Instructions ?Recorded magnesium oxide 400 mg (241.3 mg 400 mg PO DAILY #10 tabs 04/25/23 magnesium) tablet folic acid 1 mg tablet 1 mg PO DAILY #30 tabs 10/01/23 Allergies Allergy/AdvReac Type Severity Reaction Status Date / Time azithromycin [AZITHROMYCIN] Allergy Severe FACIAL Verified 10/06/24 21:07 SWELLING hydrochlorothiazide [HCTZ] Allergy Severe Facial Verified 10/06/24 21:07 Swelling Review of Systems Review of Systems: All other systems are reviewed and are negative Constitutional: Reports as per HPI and Reports no additional constitutional complaints Eyes: Reports as per HPI and Reports no additional eye complaints Reports system reviewed and no additional complaints, except as documented Cardiovascular: Reports as per HPI and Reports no additional cardiovascular complaints Respiratory: Reports as per HPI and Reports no additional respiratory complaints Gastrointestinal: Reports as per HPI and Reports no additional gastrointestinal complaints Genitourinary: Reports no additional female genitourinary complaints Musculoskeletal: Reports no additional musculoskeletal complaints Skin/Breast: Reports system reviewed and no additional complaints, except as docu Psychiatric: Reports no additional psychiatric complaints Endocrine: Reports no additional endocrine complaints Hematologic/Lymphatic: Reports no additional hematologic/lymphatic complaints Allergic/Immunologic: Reports no additional allergic/immunologic complaints Reports system reviewed and no additional complaints, except as documented and Reports Abnormal speech present [facility] Past Medical History Medical History Abdominal wall abscess at site of surgical wound CKD stage 3a, GFR 45-59 ml/min Colitis Renal mass Renal cell carcinoma Alcohol use disorder Hyperlipidemia Ascending aortic aneurysm Alcoholic steatohepatitis Seborrheic dermatitis DEBORAH (obstructive sleep apnea) History of rhabdomyolysis Hx of lower gastrointestinal bleeding Hx of sepsis History of DVT of lower extremity Chronic ulcer of leg Chronic venous stasis HTN (hypertension) Anemia Anemia Surgical History H/O partial nephrectomy Hx of colonoscopy Family History Family History Mother Dementia Maternal Grandmother Dementia Social History Social History Household Members: Family Housing: House Housing Other:: 4 stairs to get into house. Pt lives in basement Do you presently have visiting nurse or other home services: No Alcohol intake: current Alcohol intake frequency: a few times a week Alcohol type: hard liquor Comment: pt refused socks Patient Tobacco Use Status: Never used Tobacco Advance Directives: Yes Advance Directives on File: Yes Advance Directives Date on File: 04/13/22 service: No Current occupational status: disabled Physical Exam Vital Signs: Vital Signs: Last Vital Signs Temp 98.0 F 10/06/24 20:55 Pulse 72 10/06/24 20:55 Resp 20 10/06/24 20:55 BP 171/87 H 10/06/24 20:55 Pulse Ox 98 10/06/24 20:55 O2 Del Method Room Air 10/06/24 20:55 BMI result Body Mass Index 34.3 Vital signs have been reviewed and appear to be correct. Blood pressure elevated. Heart rate normal. Respiratory rate normal. Temperature normal. Oxygen saturation normal. Appearance: Alert. Oriented X3. No acute distress. Head: Normal external exam. Normocephalic. Atraumatic. No Gamez signs noted. No raccoon eyes noted Eyes: PERRLA. EOMI. Conjunctiva and sclera normal. Eyelids normal. ENT: TM's Normal. Pharynx normal. Uvula midline. Moist mucous membranes. No trismus noted. No drooling noted. No muffled voice noted. Neck: Normal inspection. Neck supple. FROM. No adenopathy. Thyroid Normal. No meningeal signs. No neck mass noted. CVS: Normal heart rate and rhythm. Heart sound normal. No murmurs noted. Pulses normal throughout. Respiratory: No respiratory distress. Painless inspiration. Breath sounds normal. No wheezes/rales/rhonchi noted. Chest nontender. No accessory muscle usage noted or decreased air movement noted. Abdomen: Soft and nontender. Bowel sounds normal in all 4 quadrants. No distention noted. No organomegaly noted. No visible injury noted. Back: No CVA tenderness. Full range of motion noted. Skin: Skin warm and dry. Normal skin color. Normal skin turgor. No rashes/lesions/lacerations noted. Extremities: Left upper extremity: Shoulder /humerus unremarkable no deformity with full range of motion, forearm show no deformity with full range motion, tenderness over left thumb limited range of motion due to pain, no wrist deformity, otherwise neurovascularly intact. Neuro: Oriented X 3. Cranial nerve exam: II-XII are grossly intact No motor deficit. No sensory deficit. Reflexes normal. Course Reevaluation(s) Reevaluation #1: No radiographic evidence of fracture to the left upper extremity. Patient feels slightly better after given ibuprofen in the emergency department. Will apply Davide bandage to the wrist and left hand and discharge. Time: 23:07 Medications Administered Discontinued Medications Generic Name Dose Route Start Last Admin Trade Name Freq PRN Reason Stop Dose Admin Ibuprofen 800 mg 10/06/24 22:04 10/06/24 22:31 Ibuprofen 800 Mg Tablet PO 10/06/24 22:05 800 mg ONCE ONE Administration Medical Decision Making Differential Diagnosis Differential Diagnoses: The differential diagnosis associated with the presentation includes ( Left hand fracture, left wrist fracture, left forearm fracture, left elbow fracture.) Admission/Observation Consideration of admission/observation: Escalation of care including admission/observation considered Independent Interpretation I performed an independent interpretation of an: Plain X-Ray ( Left hand/ wrist/ elbow: No acute fracture) Discharge Plan Discharge Clinical Impression: Accident due to mechanical fall without injury, Contusion of left hand Patient Disposition: Home, Self-Care Instructions: Contusion in Adults (ED) Additional Instructions: take [id number] Tylenol versus ibuprofen every 6 hours when needed for pain. Prescriptions: No Action metoprolol succinate 50 mg tablet extended release 24 hr 50 mg PO DAILY magnesium oxide 400 mg (241.3 mg magnesium) tablet 400 mg PO DAILY Qty: 10 0RF rosuvastatin 5 mg Tablet 5 mg PO BEDTIME folic acid 1 mg tablet 1 mg PO DAILY Qty: 30 0RF cyanocobalamin (vitamin B-12) 1,000 mcg/mL solution 1,000 mcg IM Q30D allopurinol 300 mg tablet 300 mg PO DAILY spironolactone 25 mg tablet 25 mg PO DAILY ascorbate calcium (vitamin C) 500 mg tablet 1 g PO DAILY ferrous fumarate 325 mg (106 mg iron) tablet 650 mg PO DAILY cholecalciferol (vitamin D3) 50 mcg (2,000 unit) capsule 50 mcg PO DAILY losartan 25 mg tablet 12.5 mg PO DAILY Referrals: Samantha Gonzales MD [Primary Care Provider] - Print Language: Divehi
[2024-10-06] MEDS: Ibuprofen 800 MG TABLET PO (22:31)
[2024-10-06 23:42] VITALS: BP 151/79; PULSE 77; RESP 16; TEMP 37.3; O2SAT 95
[2024-10-07 00:13] VITALS: BP 151/79; PULSE 77; RESP 16; TEMP 37.3; O2SAT 95
== END 2024-10-07 00:14 | disposition home or self-care (01) ==
PROVIDERS: Emergency Provider Emergency Medicine; PCP Family Medicine
DX: S60.222A Contusion of left hand, initial encounter (principal); W00.1XXA Fall from stairs and steps due to ice and snow, initial encounter; M25.522 Pain in left elbow; Y93.K1 Activity, walking an animal; Y92.038 Other place in apartment as the place of occurrence of the external cause; Y99.9 Unspecified external cause status
CPT/HCPCS: 73070; 73110; 73120; 99283; 99284

== ENCOUNTER → 2024-10-06 22:04 | Outpatient (BNV) | payer MEDICAID, SELFPAY | PROVIDERS: Emergency Provider Emergency Medicine; PCP Family Medicine; Visit Provider Radiology Diagnostic Radiology | DX: S69.92XA Unspecified injury of left wrist, hand and finger(s), initial encounter (principal); M79.642 Pain in left hand; S59.902A Unspecified injury of left elbow, initial encounter; W19.XXXA Unspecified fall, initial encounter | CPT/HCPCS: 73070; 73110; 73120 ==

== ENCOUNTER 2024-10-16 02:26 | Inpatient (IN) | payer MEDICAID, SELFPAY ==
[2024-10-16] VITALS (10 sets, daily range): BP systolic 149–168; BP diastolic 74–84; PULSE 61–102; RESP 16–23; TEMP 36.3–37.7; O2SAT 96–100; BMI 34.8; BMI 34.4
--- NOTE | ~2024-10-16 | XR_ITS ---
EXAMINATION: XR ANKLE, RIGHT CLINICAL INFORMATION: pain after fall COMPARISON: None available. TECHNIQUE: AP, lateral, and mortise views of the right ankle. FINDINGS: There are findings suspicious for a fracture of the proximal fifth metatarsal only seen on the lateral projection. No additional fracture, dislocation, or suspicious bone lesion. Normal bone mineralization. Normal alignment. Mortise intact. Talar dome is normal. Mild degenerative arthritis in the tibiotalar joint. Subtalar joints and other joints appear normal. Normal plantar arch. Large plantar calcaneal spur. There appears to be diffuse periosteal thickening of the distal tibial and fibular metadiaphysis. This is nonspecific. No significant ankle joint effusion. There appears to be diffuse subcutaneous soft tissue edema throughout the ankle and lower leg. XR/XR ankle RT min 3V IMPRESSION: 1.There are findings suspicious for and age indeterminant fracture of the proximal fifth metatarsal only seen on the lateral projection. This is not definitive. Recommend correlating with dedicated plain films of the right foot. 2. There is no additional fracture or malalignment. 3. Mild degenerative arthritis in the tibiotalar joint. 4. Large plantar calcaneal spur. 5. There appears to be diffuse periosteal thickening of the distal tibial and fibular metadiaphyses. This is nonspecific. Electronically signed by: Kaushal Trujillo MD 10/16/2024 09:15 AM JASVIR
--- NOTE | ~2024-10-16 | XR_ITS ---
EXAMINATION: XR ANKLE, LEFT CLINICAL INFORMATION: pain after fall COMPARISON: January 15, 2018 TECHNIQUE: AP, lateral, and mortise views of the left ankle. FINDINGS: There is regional decreased demineralization of the distal diaphysis epiphysis and metaphysis of the fibula and to a lesser extent tibia. There is edema pattern bimalleolar with a pachyderm morphology of the medial malleolus No acute cortical disruption or gross malalignment. Recommend dedicated the embolization of the left foot. Plantar calcaneal spur. Exostosis at the Achilles tendon insertion suggesting enthesopathy. . XR/XR ankle LT min 3V IMPRESSION: No acute fracture or dislocation. No regional osteopenia/osteoporosis suggesting immobilization among other etiologies. Edema pattern, bimalleolar. Please refer to the left foot x-ray. Electronically signed by: Daniel Lundberg MD 10/16/2024 09:09 AM J[facility] BUNDY
--- NOTE | ~2024-10-16 | XR_ITS ---
EXAMINATION: XR KNEE 1-2 VIEWS RIGHT HISTORY: pain after fall COMPARISON: Comparison is made with the prior examination dated 08/26/2023. FINDINGS: AP and lateral views of the right knee are submitted. The bones are osteopenic. Again seen is thick periosteal reaction along the distal femoral metaphysis without change. There is no fracture or dislocation. There is mild narrowing of the medial compartment. The soft tissues are unremarkable. XR/XR knee RT 2V IMPRESSION: No evidence of fracture of the right knee. Electronically signed by: Eric Juarez MD 10/16/2024 09:02 AM JASVIR
--- NOTE | ~2024-10-16 | XR_ITS ---
EXAMINATION: XR HIP 1 VIEW RIGHT WITH PELVIS HISTORY: fall, pain COMPARISON: There are no prior studies for comparison. FINDINGS: A single AP view of the pelvis and two views of the right hip are submitted. Osseous mineralization is normal. There is no fracture or dislocation. There is moderate osteoarthritis with joint space narrowing and subchondral cyst formation. The soft tissues are unremarkable. XR/XR hip RT w PEL1V IMPRESSION: Moderate osteoarthritis. No evidence of fracture of the right hip. Electronically signed by: Eric Juarez MD 10/16/2024 09:04 AM [facility] BUNDY
--- NOTE | ~2024-10-16 | XR_ITS ---
EXAMINATION: XR FOOT, LEFT CLINICAL INFORMATION: pain, ? injury COMPARISON: Left ankle x-ray dated January 15, 2018 and October 16, 2024. TECHNIQUE: AP and cross lateral of the left foot. FINDINGS: Old traumatic deformities in the distal segment third and fifth metatarsals. Periosteal bone reaction. Osteopenia versus osteoporosis. Flexed position of the second third and fourth toes. There is a plantar calcaneal spur. Small exostosis at the Achilles tendon insertion. XR/XR foot LT min 3V IMPRESSION: Old traumatic deformities distal second and third and fifth metatarsals. Osteopenia versus osteoporosis. Electronically signed by: Daniel Lundberg MD 10/16/2024 12:48 PM EST
--- NOTE | ~2024-10-16 | XR_ITS ---
EXAMINATION: XR CHEST CLINICAL INFORMATION: weakness COMPARISON: August 17, 2024 TECHNIQUE: 2 views of the chest were obtained. FINDINGS: Poor inspiration. No consolidation, pleural effusion or pneumothorax. No hyperinflation. Cardiomediastinal silhouette size is normal. Multilevel thoracic and upper lumbar spondylosis. XR/XR chest 2V IMPRESSION: No acute airspace disease. Electronically signed by: Daniel Lundberg MD 10/16/2024 08:57 AM EST
--- NOTE | ~2024-10-16 | XR_ITS ---
EXAMINATION: XR FOOT, RIGHT CLINICAL INFORMATION: pain ? injury COMPARISON: Correlated to right ankle x-ray dated October 16, 2024 and November 27, 2022. TECHNIQUE: AP and cross lateral of the right foot. FINDINGS: Atelectasis and of the toes. No acute cortical disruption or gross malalignment. Plantar calcaneal spur. Small exostosis at the Achilles tendon insertion. Osteopenia versus osteoporosis. There is a well-corticated 5 mm calcification in the soft tissues within the distal third and fourth metatarsals. Edema pattern in the distal right foot without subcutaneous emphysema. XR/XR foot RT min 3V IMPRESSION: I do not see a gross acute fracture. Edema pattern distal foot. Electronically signed by: Daniel Lundberg MD 10/16/2024 12:51 PM [facility] BUNDY
[2024-10-16 04:09] LABS: Basophils Absolute Auto 0.1 X10*3/uL (0.0-0.2); Basophils Percent Auto 1.1 % (0-2); Eosinophils Absolute Auto 0.2 X10*3/uL (0.0-0.4); Eosinophils Percent Auto 1.5 % (0-4); Hematocrit 28.6 % (42.0-52.0); Hemoglobin 9.5 g/dl (14.0-18.0); Imm Gran Abs Auto 0.03 X10*3/uL (0.00-0.03); Imm Gran Pct Auto 0.3 % (0.0-0.4); Lymphocytes Absolute Auto 3.1 X10*3/uL (1.2-4.9); Lymphocytes Percent Auto 28.7 % (20-40); MANUAL DIFF FLAG NO; Mean Corpuscular HGB Conc 33.2 g/dl (31.0-36.0); Mean Corpuscular Volume 84.4 fL (80.0-98.0); Mean Platelet Volume 7.9 fL (9.4-12.4); Monocytes Absolute Auto 0.7 X10*3/uL (0.1-1.2); Monocytes Percent Auto 6.8 % (2-11); Neutrophils Absolute Auto 6.7 x10*3/uL (2.0-8.3); Neutrophils Percent Auto 61.6 % (45-73); Platelet Count 235 X10*3/uL (160-400); Red Blood Count 3.39 X10*6/uL (4.60-5.80); Red Cell Distribution Width 16.3 % (11.0-16.0); White Blood Count 10.8 X10*3/uL (4.8-10.8)
[2024-10-16 04:28] LABS: Alkaline Phosphatase 161 U/L (39-117)
[2024-10-16 04:30] LABS: Alanine Aminotransferase < 6 U/L (0-40); Albumin Level 3.4 g/dL (3.5-5.0); Anion Gap 16 (12-20); Aspartate Amino Transferase 23 U/L (5-37); Bilirubin Total 0.5 mg/dL (0.0-1.0); Blood Urea Nitrogen 15 mg/dL (9-16); Calcium 8.8 mg/dL (8.4-10.2); Carbon Dioxide 22 mmol/L (22-29); Chloride 105 mmol/L (96-108); Estimated Glomerular Filt Rate > 60; Ethanol 277 mg/dL; Glucose Random 104 mg/dL (60-115); Potassium 4.1 mmol/L (3.3-5.1); Sodium 139 mmol/L (135-145); Total Protein 8.1 g/dL (6.5-8.0)
--- OUTSIDE RECORDS SUMMARY | 2024-10-16 05:37 | XMS_ITS | Clinical Summary ---
Author Organization [employer] Address [address] [place] [address] [address] [place] [address] Care Team Providers Care Information Systems Director Name Role Phone Samantha Gonzales MD Primary Care Provider [phone] Allergies Active Allergy Reactions Criticality Noted Date [...] Active Problems Problem Noted Date Diagnosed Date Left hand pain 10/09/2024 Assessment & Plan (10/14/2024 5:14 PM EST): - Continue judicious use of APAP - Ordered CT Wrist w/o Contrast Left 10/08/24 - Ordered Referral to Orthopaedic Surgery 10/08/24 Localized pain of right shoulder joint 5 [...] cell cancer, left 07/25/2023 Assessment & Plan (10/09/2024 1:01 AM EST): -09/21/[address] showed 2.3 cm lesion on the upper pole of left kidney; MRI was recommended -MRI 12/27/22 showed a lesion suspicious for renal cell carcinoma -s/p left nephrectomy on 12/17/23 Assessment & Plan (06/25/2024 12:11 PM EST): [...] appt date Dyslipidemia 05/26/2023 Assessment & Plan (10/09/2024 1:02 AM EST): - current medication: rosuvastatin 5 mg at bedtime - last lipid profile: 01/28/23 - continue working on lifestyle modficiation Assessment & Plan (06/25/2024 12:16 PM EST): [...] Chronic liver disease 10/13/2022 Assessment & Plan (10/14/2024 5:11 PM EST): -multifactorial: Excessive alcohol intake; obesity -recent abdominal CT showed splenomegaly and fatty liver -recent lab shows thrombocytopenia -continue working on risk factor management -upcoming appointment with Dandy Lenz Assessment & Plan (11/25/2023 8:30 AM EDT): [...] ablation in Aug 2018 ?? -following with [facility] [place] [facility], periodically when he has open wounds. -Last seen by [facility] in October 2021 -usually discharged [...] ablation in Aug 2018 ?? -following with [facility], periodically when he has open wounds. -Last seen by [facility] in October 2021 -usually discharged [...] GSV ablation in Aug 2018 -following with [facility], periodically when he has open wounds. -Last seen by [facility] in October 2021 -usually discharged [...] GSV ablation in Aug 2018 -following with [facility], periodically when he has open wounds. -Last seen by [facility] in October 2021 -usually discharged [...] GSV ablation in Aug 2018 -following with [facility], periodically when he has open wounds. -Last seen by [facility] in October 2021 -usually discharged [...] is frequently having diarrhea - following with selvage machine operator - dehydration due to diarrhea on 04/25/23, IVF with Mg given in ED - recheck Assessment & Plan (05/26/2023 6:52 AM EDT): - 01/28/23 Magnesium 1.1 - On magnesium oxide supplementation, but pt is frequently having diarrhea - following with selvage machine operator - dehydration due to diarrhea on 04/25/23, IVF with Mg given in ED - recheck Assessment & Plan (04/25/2023 12:51 PM EDT): - 01/28/23 Magnesium 1.1 - On magnesium oxide supplementation, but pt is frequently having diarrhea - following with selvage machine operator - dehydration due to diarrhea today; anticipate hypomagnesemia again -> sending ER for replacement Assessment & Plan (01/23/2023 4:07 PM EDT): [facility] [place]ization on 10/30 - 11/02 Lab showed hypomagnesemia and thrombocytopenia Pt is prescribed magnesium supplement; encouraged to improve adherence Pt is advised to hold when he is having diarrhea Assessment & Plan (11/30/2022 6:23 AM EDT): [facility] [place]ization on 10/30 - 11/02 Lab showed hypomagnesemia and thrombocytopenia Pt is prescribed magnesium supplement; encouraged to improve adherence Stage 2 chronic kidney disease 10/13/2022 Assessment & Plan (10/14/2024 5:13 PM EST): -Supervisor Grinding: [facility] [place]. Kennedy -Hx rhabdomyolysis, on hemodialysis for 1 month in November 2017 - December 2017 -His renal funciton was CKDII level [id number] -Most recent POLLY in Sep 2022, both admission, held lisinopril, spironolactone, and torsemide during 1st admission, and resumed upon discharge -Last lab: 01/28/23 Sodium 135; Potassium 3.6 ; Chloride 99 ; Bicarb 24 ; Calcium 8.0; BUN 19 , Creatinine 1.02 ; EGFR 84 -Avoid nephrotoxic drugs -Continue renal dosing Assessment & Plan (07/26/2023 2:10 PM EST): -Supervisor Grinding: Dr. Kennedy, last appt in Sep 2021 -Hx rhabdomyolysis, on hemodialysis for 1 month in November 2017 - December 2017 -His renal funciton was CKDII level [id number] -Most recent POLLY in Sep 2022, both [...] Assessment & Plan (05/26/2023 6:49 AM EDT): -Supervisor Grinding: Dr. Kennedy, last appt in Sep 2021 -Hx rhabdomyolysis, on hemodialysis for 1 month in November 2017 - December 2017 -His renal funciton was CKDII level [id number] -Most recent POLLY in Sep 2022, both admission, held lisinopril, spironolactone, and torsemide during 1st admission, and resumed upon discharge -Last lab: 01/28/23 Sodium 135; Potassium 3.6 ; Chloride 99 ; Bicarb 24 ; Calcium 8.0; BUN 19 , Creatinine 1.02 ; EGFR 84 -Avoid nephrotoxic drugs -Continue renal dosing Assessment & Plan (04/25/2023 12:49 PM EDT): -Supervisor Grinding: Dr. Kennedy, last appt in Sep 2021 -Hx rhabdomyolysis, on hemodialysis for 1 month in November 2017 - December 2017 -His renal funciton was CKDII level [id number] -Most recent POLLY in Sep 2022, both admission, held lisinopril, spironolactone, and torsemide during 1st admission, and resumed upon discharge -Last lab: 01/28/23 Sodium 135; Potassium 3.6 ; Chloride 99 ; Bicarb 24 ; Calcium 8.0; BUN 19 , Creatinine 1.02 ; EGFR 84 -Avoid nephrotoxic drugs -Continue renal dosing Assessment & Plan (01/23/2023 4:04 PM EDT): -Supervisor Grinding: Dr. Kennedy, last appt in Sep 2021 -Hx rhabdomyolysis, on hemodialysis for 1 month in November 2017 - December 2017 -His renal funciton was CKDII level 1320-1392 -Most recent POLLY in Sep 2022, both admission, held lisinopril, spironolactone, and torsemide during 1st admission, and resumed upon discharge -Last lab: 10/07/22 BUN 31; SCr 1.7, eGFR 47 (Apr 2023 eGFR > 60) -Avoid nephrotoxic drugs -Continue renal dosing Assessment & Plan (11/26/2022 9:32 AM EDT): -Supervisor Grinding: Dr. Kennedy, last appt in Sep 2021 -Hx rhabdomyolysis, on hemodialysis for 1 month in November 2017 - December 2017 -His renal funciton was CKDII level 9990-8816 -Most recent POLLY in Sep 2022, both admission, held lisinopril, spironolactone, and torsemide during 1st admission, and resumed upon discharge -Last lab: 10/07/22 BUN 31; SCr 1.7, eGFR 47 (Apr 2023 eGFR > 60) -Avoid nephrotoxic drugs -Recheck lab -Will use renal dosing Assessment & Plan (10/13/2022 5:03 PM EST): -Supervisor Grinding: Dr. Kennedy, last appt in Sep 2021 -Hx rhabdomyolysis, on hemodialysis for 1 month in November 2017 - December 2017 -His renal funciton was CKDII level 7772-1359 -Most recent POLLY in Sep 2022, both admission, held lisinopril, spironolactone, and torsemide during 1st admission, and resumed upon discharge -Last lab: 10/07/22 BUN 31; SCr 1.7, eGFR 47 (Apr 2023 eGFR > 60) -Avoid nephrotoxic drugs -Recheck lab -Will use renal dosing Other dietary vitamin B12 deficiency anemia 09/20 Assessment & Plan (10/09/2024 1:03 AM EST): -likely nutritional and excessive alcohol consumption -continue vitamin supplementation -currently receiving B12 IM from his restaurant team member, Dr. Peters Assessment & Plan (06/25/2024 12:12 PM EST): -likely nutritional and excessive alcohol consumption -continue vitamin supplementation -currently receiving B12 IM from his restaurant team member, Dr. Peters Assessment & Plan (07/25/2023 6:24 AM EST): -likely nutritional and excessive alcohol consumption -continue vitamin supplementation -currently receiving B12 IM from his restaurant team member, Dr. Peters Assessment & Plan (10/13/2022 5:15 PM EST): -likely nutritional and excessive alcohol consumption -continue vitamin supplementation Iron deficiency anemia 10/13/2022 Assessment & Plan (07/25/2023 6:25 AM EST): -Received Venfor IV 300 mg x 2 during 1st hospitalization in [facility] in Sep 2022 -Continue follow-up with restaurant team member Assessment & Plan (10/13/2022 5:17 PM EST): -Received Venfor IV 300 mg x 2 during 1st hospitalization in [facility] in Sep 2022 -Continue follow-up with restaurant team member Anemia of chronic disease 10/13/2022 Assessment & Plan (10/09/2024 1:03 AM EST): - Both Iron and Vitamin-B12 deficiency, and anemia of chronic diseaes - followed by restaurant team member, Dr. Peters Assessment & Plan (06/25/2024 12:12 PM EST): - Both Iron and Vitamin-B12 deficiency, and anemia of chronic diseaes - followed by restaurant team member, Dr. Peters Assessment & Plan (07/26/2023 2:12 PM EST): - Both Iron and Vitamin-B12 deficiency, and anemia of chronic diseaes -followed by restaurant team member, Dr. Peters, last seen on 06/03/23 Assessment & Plan (05/26/2023 6:51 AM EDT): Both Iron and Vitamin-B12 deficiency -followed by restaurant team member Assessment & Plan (04/25/2023 10:40 AM EDT): Both Iron and Vitamin-B12 deficiency -followed by restaurant team member Assessment & Plan (01/23/2023 4:06 PM EDT): Both Iron and Vitamin-B12 deficiency -followed by restaurant team member Assessment & Plan (11/26/2022 9:51 AM EDT): Both Iron and Vitamin-B12 deficiency -followed by restaurant team member Assessment & Plan (10/13/2022 5:18 PM EST): -multifactorial - nutritional, CKD -following with [facility] restaurant team member Anemia 01/15/2018 Aneurysm of ascending aorta 05/29/2016 Assessment & Plan (10/14/2024 5:06 PM EST): -Most recent echo on 04/12/21, EF 60-65%, dilated ascending aorta 41mm -Echo on 04/05/20, EF 55-60%, dilated ascending aorta 42 mm, -Echo on 04/01/19 EF 60-65%, Aortic root dimension 37~43mm -Echo on 06/23/24 EF 60-65%, Ascending aortic aorta 41 mm. -Seen by his stone layout marker, Dr. Claudio in Jun 2024 -Continue surveillance transthoracic echocardiogram -Work on risk factor management Assessment & Plan (11/12/2023 12:18 PM EDT): -Most recent echo on 04/12/21, EF 60-65%, dilated ascending aorta 41mm -Echo on 04/05/20, EF 55-60%, dilated ascending aorta 42 mm, -Echo on 04/01/19 EF 60-65%, Aortic root dimension 37~43mm -Seen by his stone layout marker, Dr. Claudio on 03/14/23 -Pt advised to check next Cardiogram appt which is in August 2023 -Work on risk factor management Assessment & Plan (07/25/2023 6:22 AM EST): -Most recent echo on 04/12/21, EF 60-65%, dilated ascending aorta 41mm -Echo on 04/05/20, EF 55-60%, dilated ascending aorta 42 mm, -Echo on 04/01/19 EF 60-65%, Aortic root dimension 37~43mm -Seen by his stone layout marker, Dr. Claudio on 03/14/23 -Pt advised to check next Cardiogram appt which is in August 2023 -Work on risk factor management Assessment & Plan (05/26/2023 6:48 AM EDT): -Most recent echo on 04/12/21, EF 60-65%, dilated ascending aorta 41mm -Echo on 04/05/20, EF 55-60%, dilated ascending aorta 42 mm, -Echo on 04/01/19 EF 60-65%, Aortic root dimension 37~43mm -Seen by his stone layout marker, Dr. Claudio on 03/14/23 -Pt advised to check next Cardiogram appt which is in August 2023 -Work on risk factor management Assessment & Plan (04/25/2023 10:42 AM EDT): -Most recent echo on 04/12/21, EF 60-65%, dilated ascending aorta 41mm -Echo on 04/05/20, EF 55-60%, dilated ascending aorta 42 mm, -Echo on 04/01/19 EF 60-65%, Aortic root dimension 37~43mm -Seen by his stone layout marker, Dr. Claudio on 03/14/23 -Pt advised to check next Cardiogram appt which is in August 2023 -Work on risk factor management Assessment & Plan (11/30/2022 6:19 AM EDT): -Most recent echo on 04/12/21, EF 60-65%, dilated ascending aorta 41mm -Echo on 04/05/20, EF 55-60%, dilated ascending aorta 42 mm, -Echo on 04/01/19 EF 60-65%, Aortic root dimension 37~43mm -Seen by his stone layout marker, Dr. Claudio on n 07/11/22 -Pt advised to check next Cardiogram appt -Work on risk factor management Assessment & Plan (10/13/2022 5:10 PM EST): -Most recent echo on 04/12/21, EF 60-65%, dilated ascending aorta 41mm -Echo on 04/05/20, EF 55-60%, dilated ascending aorta 42 mm, -Echo on 04/01/19 EF 60-65%, Aortic root dimension 37~43mm -Seen by his stone layout marker, Dr. Claudio on n 07/11/22 -Pt advised to check next Cardiogram appt -Work on risk factor management Acquired deviated nasal septum 04/25/2016 Metabolic dysfunction-associ ated steatotic liver disease and increased alcohol intake (MetALD) 12/27/2015 Assessment & Plan (10/14/2024 5:11 PM EST): - Last liver test: 07/02/24 - Last US / elastography -> ordered - Last imaging: CT in Jul 2024 showed splenomegaly, hepatomegaly, and diffuse fatty liver - FIB4 index 6.49, cirrhosis - GI: Upcoming appointment with Dr. Lenz - continue working on lifestyle modifications - continue surveillance study Alcohol use disorder 09/06/2015 Assessment & Plan (10/09/2024 1:02 AM EST): -He had at least 5 [...] no longer on naltrexone Assessment & Plan (06/25/2024 12:13 PM EST): [...] to AUD Clinic. Pt will meet with General Merchandise Salesperson today. Assessment & Plan (10/13/2022 5:30 PM [...] 09/06/2015 Essential hypertension 05/30/2015 Assessment & Plan (10/14/2024 4:52 PM EST): - Goal BP <140/90 per JNC-8, < 130/80 per ACC/AHA guideline. - BP not at goal today, patient has not taken his medication yet and is currently in pain - Continue checking home BP - Continue working on lifestyle modifications - Continue metoprolol succinate 75 mg daily - Currently torsemide 20 mg bid is on hold - Continue spirolactone 25 mg daily - Previously on losartan 25 mg daily which was discontinued by selvage machine operator - Improve CPAP adherence Tx history - Amlodipine was discontinued due to LE edema and furosemide was switched to torsemide by his stone layout marker. - Lisinopril was discontinued when he had POLLY, but restarted after his renal function recovered - Lisinopril and torsemide were held during recent hospitalization. Resumed upon discharge. - Lisinopril was changed to losartan in Jul 2023. -Follow up in 3 mo or sooner if any problem arises Assessment & Plan (06/25/2024 2:36 PM EST): [...] 25 mg daily which was discontinued by selvage machine operator - Improve CPAP adherence Tx history - Amlodipine was discontinued due to LE edema and furosemide was switched to torsemide by his stone layout marker. - Lisinopril was discontinued when he had [...] furosemide was switched to torsemide by his stone layout marker. - Lisinopril was discontinued when he had [...] furosemide was switched to torsemide by his stone layout marker. - Lisinopril was discontinued when he had [...] metoprolol succinate 75 mg daily (Dr. Claudio, stone layout marker, increased to 100 mg daily, but his discharge medication list shows 75 mg daily) - Continue torsemide 20 mg bid - Continue spirolactone 25 mg daily - Continue lisinopril 5mg daily - Improve CPAP adherence ?? Tx history - Amlodipine was discontinued due to LE edema and furosemide was switched to torsemide by his stone layout marker. - Lisinopril was discontinued when he had [...] metoprolol succinate 75 mg daily (Dr. Claudio, stone layout marker, increased to 100 mg daily, but his discharge medication list shows 75 mg daily) - Continue torsemide 20 mg bid - Continue spirolactone 25 mg daily - Continue lisinopril 5mg daily - Improve CPAP adherence Tx history - Amlodipine was discontinued due to LE edema and furosemide was switched to torsemide by his stone layout marker. - Lisinopril was discontinued when he had [...] metoprolol succinate 75 mg daily (Dr. Claudio, stone layout marker, increased to 100 mg daily, but his discharge medication list shows 75 mg daily) - Continue torsemide 20 mg bid - Continue spirolactone 25 mg daily - Continue lisinopril 5mg daily - Improve CPAP adherence Tx history - Amlodipine was discontinued due to LE edema and furosemide was switched to torsemide by his stone layout marker. - Lisinopril was discontinued when he had [...] metoprolol succinate 75 mg daily (Dr. Claudio, stone layout marker, increased to 100 mg daily, but his discharge medication list shows 75 mg daily) - Continue torsemide 20 mg bid - Continue spirolactone 25 mg daily - Continue lisinopril 5mg daily - Improve CPAP adherence Tx history - Amlodipine was discontinued due to LE edema and furosemide was switched to torsemide by his stone layout marker. - Lisinopril was discontinued when he had [...] metoprolol succinate 75 mg daily (Dr. Claudio, stone layout marker, increased to 100 mg daily, but his discharge medication list shows 75 mg daily) - Continue torsemide 20 mg bid - Continue spirolactone 25 mg daily - Continue lisinopril 5mg daily - Improve CPAP adherence Tx history - Amlodipine was discontinued due to LE edema and furosemide was switched to torsemide by his stone layout marker. - Lisinopril was discontinued when he had POLLY, but restarted after his renal function recovered - Lisinopril and torsemide were held during recent hospitalization. Resumed upon discharge. Calcaneal spur 07/21/2014 Obstructive sleep apnea syndrome 07/21/2014 Assessment & Plan (10/14/2024 4:52 PM EST): -Improve adherence to CPAP -Consider referring back to sleep medicine clinic Assessment & Plan (06/25/2024 2:35 PM EST): [...] for AUD clinic this Saturday Kidney lesion, penobscot, left 10/13/2022 06/15/2024 Assessment & Plan (07/25/2023 [...] organization. Date Type Department Care Team Description 10/08/2024 11:00 AM EST Office Visit [facility] [address] [place] [address] Samantha Gonzales MD Left hand pain (Primary Dx); Dietary counseling; Exercise counseling; Class 2 severe obesity due to excess calories with serious comorbidity and body mass index (BMI) of 36.0 to 36.9 in adult (CMS/HCC); Chronic pain of left thumb; Acute pain of left wrist; Essential hypertension; Aneurysm of ascending aorta without rupture (CMS/HCC); Renal cell cancer, left (CMS/HCC); Stage 2 chronic kidney disease; Obstructive sleep apnea syndrome; Anemia of chronic disease; Other dietary vitamin B12 deficiency anemia; Dyslipidemia; Alcohol use disorder; Chronic liver disease; Caregiver stress; Metabolic dysfunction-associate d steatotic liver disease and increased alcohol intake (MetALD); Iron deficiency anemia, unspecified iron deficiency anemia type 10/08/2024 Patient Outreach [facility] [address] [place] [address] Samantha Gonzales MD Care Coordination (Outreach) 10/08/2024 Travel 10/06/2024 Orders Only [facility] External Provider, [facility] 10/06/[address] [address] Darcy Mariee [place] chart prep 09/17/[address] [address] Karyn Mann RN 09/15/2024 Patient Outreach [facility] MED & PEDS [address] [place], [place] [phone] Samantha Gonzales MD Care Coordination (Outreach) 09/14/2024 Patient Outreach [address] [address] Brandon Hargrove Recovery Supports 09/11/2024 2:15 PM EST Office Visit [address] [address] Kerwin Mendoza MD Alcohol use, unspecified, uncomplicated (Primary Dx) 09/11/2024 1:00 PM EST Office Visit [facility] [address] [place] [id number] Sara Alejandra MD Localized pain of left shoulder joint (Primary Dx) 09/11/2024 Telephone [facility] [address] [address] Latisha Elise, ROSALINDA Question: plan of care 09/11/2024 Travel 09/08/2024 Patient Outreach [facility] MED & PEDS [address] [place], [place] [phone] Samantha Gonzales MD Care Coordination (outreach) 09/03/2024 10:30 AM EST Office Visit [address] [address] Brianna Covington ANP Hospital discharge follow-up (Primary Dx); POLLY (acute kidney injury) (CMS/HCC); Thrombocytopenia (CMS/HCC); Alcohol use disorder; Acquired lymphedema of lower extremity; Stage 3 chronic kidney disease, unspecified whether stage 3a or 3b CKD (CMS/HCC); Rectal bleeding 09/03/2024 Patient Outreach [address] [address] Brandon Hargrove Recovery Supports 09/03/2024 Travel 09/02/[address] [address] Samantha Gonzales MD FYI 09/02/[address] [address] Nora Booker [place] chart prep 09/02/2024 Patient Outreach [facility] MED [facility] PEDS [address] [place], [place] [phone] Samantha Gonzales MD Care Coordination (Outreach) 08/31/2024 Patient Outreach [address] [address] Samantha Gonzales MD Transition Of Care (Tcm) (RE: [facility] APPT REMINDER ) 08/27/[address] [address] Samantha Gonzales MD vna services 08/25/2024 Patient Outreach [facility] MED & PEDS [address] [place], [place] [phone] Samantha Gonzales MD Care Coordination (Outreach) 08/25/2024 Patient Outreach [facility] MED & PEDS [address] [place], [place] [phone] Samantha Gonzales MD Care Coordination (Outreach/) 08/21/2024 Patient Outreach [facility] MED & PED[facility] [address] [place], [place] [phone] Samantha Gonzales MD Transition Of Care (Tcm) (F scheduled. ) 08/17/2024 Orders Only GENERIC EXTERNAL [...] your housing situation today? I have neel aby 12/26/[address] you [...] Sign Reading Time Taken Comments Blood Pressure 166/95 10/08/2024 11:33 AM EST Pulse 91 10/08/2024 11:33 AM EST Temperature 35.7 ??C (96.2 ??F) 10/08/2024 11:[address] Respiratory Rate 20 10/08/2024 11:33 AM EST Oxygen Saturation 98% 09/11/2024 11:31 AM EST Inhaled Oxygen Concentration - - Weight 101 kg (221 lb 12.8 oz) 10/08/2024 11:33 AM EST Height 170.2 cm (5' 7 ) 09/11/2024 11:31 AM EST Body Mass Index 34.74 09/11/2024 11:31 AM EST Plan of Treatment Upcoming Encounters Date Type Department Care Team (Late st Contact Info) Description 01/01/2025 10:30 AM EDT Office Visit [facility] OPTOMETRY [address] [place] [address] Issac, Lima, OD [address] [place] [address] Health Maintenance Due Date Last Done Comments [...] Depression Screening 06/25/2025 06/25/2024, 06/25/20 Tobacco Screening 10/08/2025 10/08/2024 Lipid Panel 07/02/2029 07/02/2024, 01/17, 11/03/2021 DTaP/Tdap/Td [...] Name Priority Date/Time Associated Diagnosis Comments XR HAND 1-2 VIEWS LEFT Routine 10/06/2024 11:03 PM EST XR ELBOW 1-2 VIEWS LEFT Routine 10/06/2024 11:00 PM EST XR WRIST 3+ VIEWS LEFT Routine 10/06/2024 10:58 PM EST POCT STERLING-14 URINE DRUG SCREEN Routine 09/11/2024 [...] Relevant to Health Maintenance Results * XR Hand 1-2 Views Left (10/06/2024 11:03 PM EST) Anatomical Region Laterality Modality Upper Extremities, Hand Left Radiogra phic Imaging 10/06/2024 11:0 3 PM EST Narrative 10/06/2024 11:05 PM EST ? [facility] ?[address] ?[place] [address] ?XRay Report ? Signed ? Patient: Mohan Gonzalez ?MR#: [id number] ?? [id number] ? : 1960 ?Acct:[id number] ? Age/Sex: 64 / M ?ADM Date: 10/06/24 ? Loc: HO.ED ? Attending Dr: ? Ordering Physician: Reese Melendez MD ?? Date of Service: 10/06/24 ?? Procedure(s): XR hand LT 2V ?? Accession Number(s): [id number] ? cc: Reese Melendez MD; Samantha Gonzales MD ? CLINICAL HISTORY: pain from fall ? 3 view left hand ? Comparison: None ? Findings: ?? No fractures or dislocations. ?? There are chronic degenerative changes at the basilar joint. ?? No erosions. No radiopaque foreign body. ? IMPRESSION: ?? 1. No acute findings ? This document has been electronically signed by: Maximo Sainz MD on ?? 10/06/2024 23:03:21 ? Dictated By: ?EmeliMaximo SYLVESTER ? Signed By: ?<Electronically signed by Maximo Sainz MD in OV> ? 10/06/245 ? DD/ ? TD/TT: 10/06/243 ? Consumer Sales Representative: ? Procedure Note Sanket, Mallorie - 10/07/2024 [facility] [address] [facility] [place] [address] XRay Report Signed Patient: Mohan Gonzalez AMR#: [id number] : 1960cct:[id number] Age/Sex: 64 / MADM Date: 10/06/24 Loc: HO.ED Attending Dr: Ordering Physician: Reese Melendez MD Date of Service: 10/06/24 Procedure(s): XR hand LT 2V Accession Number(s): [id number] cc: Reese Melendez MD; Samantha Gonzales MD CLINICAL HISTORY: pain from fall 3 view left hand Comparison: None Findings: No fractures or dislocations. There are chronic degenerative changes at the basilar joint. No erosions. No radiopaque foreign body. IMPRESSION: 1. No acute findings This document has been electronically signed by: Maximo Sainz MD on 10/06/2024 23:03:21 Dictated By: Maximo Sainz MD Signed By: <Electronically signed by Maximo Sainz MD in OV> 10/06/242304 DD/ 02 TD/TT: 10/06/242302 Consumer Sales Representative: [facility] External Provider IMG XR PROCEDURES Edited Result - Final * XR Elbow 1-2 Views Left (10/06/2024 11:00 PM EST) Anatomical Region Laterality Modality Upper Extremities, Elbow Left Radiogr aphic Imaging 10/06/2024 11:0 0 PM EST Narrative 10/06/2024 11:02 PM EST ? [facility] ?[address] ?[place] [address] ?XRay Report ? Signed ? Patient: Mohan Gonzalez ?MR#: [id number] ?? [id number] ? : 1960 ?Acct:[id number] ? Age/Sex: 64 / M ?ADM Date: 02/18/25 ? Loc: HO.ED ? Attending Dr: ? Ordering Physician: Reese Melendez MD ?? Date of Service: 10/06/24 ?? Procedure(s): XR elbow LT 2V ?? Accession Number(s): [id number] ? cc: Reese Melendez MD; Samantha Gonzales MD ? CLINICAL HISTORY: twist injury to the left elbow ? 3 view left elbow ? Comparison: None ? Findings: ?? No acute fractures. Normal alignment. ?? No significant loss of joint space, osteophytes, or erosions. ?? No joint effusion. ?? No radiopaque foreign body. ? IMPRESSION: ?? 1. No acute findings ? This document has been electronically signed by: Maximo Sainz MD on ?? 10/06/2024 23:00:50 ? Dictated By: ?Maximo Sainz MD ? Signed By: ?<Electronically signed by Maximo Sainz MD in OV> ? 10/06/24 2302 ? DD/ 99 ? TD/TT: 10/06/242299 ? Consumer Sales Representative: ? Procedure Note Donhoracioter, Image - 10/07/2024 [place] [address] XRay Report Signed Patient: Mohan Gonzalez AMR#: [id number] : 1960cct:[id number] Age/Sex: 64 / MADM Date: 10/06/24 Loc: HO.ED Attending Dr: Ordering Physician: Reese Melendez MD Date of Service: 10/06/24 Procedure(s): XR elbow LT 2V Accession Number(s): [id number] cc: Reese Melendez MD; Samantha Gonzales MD CLINICAL HISTORY: twist injury to the left elbow 3 view left elbow Comparison: None Findings: No acute fractures. Normal alignment. No significant loss of joint space, osteophytes, or erosions. No joint effusion. No radiopaque foreign body. IMPRESSION: 1. No acute findings This document has been electronically signed by: Maximo Sainz MD on 10/06/2024 23:00:50 Dictated By: Maximo Sainz MD Signed By: <Electronically signed by Maximo Sainz MD in OV> 10/06/242301 DD/ 99 TD/TT: 10/06/242299 Consumer Sales Representative: [facility] External Provider IMG XR PROCEDURES Edited Result - Final * XR Wrist 3+ Views Left (10/06/2024 10:58 PM EST) Anatomical Region Laterality Modality Upper Extremities, Wrist Left Radiogr aphic Imaging 10/06/2024 10:5 8 PM EST Narrative 10/06/2024 11:00 PM EST ? [facility] ?[address] ?[place] [address] ?XRay Report ? Signed ? Patient: Mohan Gonzalez ?MR#: [id number] ?? [id number] ? : 1960 ?Acct:[id number] ? Age/Sex: 64 / M ?ADM Date: 10/06/24 ? Loc: HO.ED ? Attending Dr: ? Ordering Physician: Reese Melendez MD ?? Date of Service: 10/06/24 ?? Procedure(s): XR wrist LT min 3V ?? Accession Number(s): [id number] ? cc: Reese Melendez MD; Samantha Gonzales MD ? CLINICAL HISTORY: injury to wrist ? 3 view left wrist ? Comparison: None ? Findings: ?? No fractures or dislocations. ?? The degenerative changes are seen at the basilar joint. ?? No radiopaque foreign body. ? IMPRESSION: ?? 1. No acute findings ? This document has been electronically signed by: Maximo Sainz MD on ?? 10/06/2024 22:58:43 ? Dictated By: ?Maximo Sainz MD ? Signed By: ?<Electronically signed by Maximo Sainz MD in OV> ? 10/06/24 2300 ? DD/ 57 ? TD/TT: 10/06/242257 ? Consumer Sales Representative: ? Procedure Note Mallorie Coles - 10/06/[address] [address] XRay Report Signed Patient: Mohan Gonzalez AMR#: [id number] : 1960cct:[id number] Age/Sex: 64 / MADM Date: 10/06/24 Loc: HO.ED Attending Dr: Ordering Physician: Reese Melendez MD Date of Service: 10/06/24 Procedure(s): XR wrist LT min 3V Accession Number(s): [id number] cc: Reese Melendez MD; Samantha Gonzales MD CLINICAL HISTORY: injury to wrist 3 view left wrist Comparison: None Findings: No fractures or dislocations. The degenerative changes are seen at the basilar joint. No radiopaque foreign body. IMPRESSION: 1. No acute findings This document has been electronically signed by: Maximo Sainz MD on 10/06/2024 22:58:43 Dictated By: Maximo Sainz MD Signed By: <Electronically signed by Maximo Sainz MD in OV> 10/06/242299 DD/ 57 TD/TT: 10/06/242257 Consumer Sales Representative: [facility] External Provider IMG XR PROCEDURES Edited Result - Final * POCT STERLING-14 Urine Drug Screen (09/11/2024 [...] PM EST Narrative 09/11/2024 1:15 PM EST ?[facility] ?[address] ?[place] [address] ?XRay Report ? Signed ? Patient: Drummer,Mohan A ?MR#: [id number] ?? [id number] ? : 1960 ?Acct:[id number] ? Age/Sex: 64 / M ?ADM Date: 01/24/25 ? Loc: HO.HHCX ? Attending Dr: Sara Alejandra MD ? Ordering Physician: Sara Alejandra MD ?? Date of Service: 09/11/24 ?? Procedure(s): XR shoulder LT min 2V ?? Accession Number(s): [id number] ? cc: Sara Alejandra MD ? EXAMINATION: [...] DD/ 1205 ? TD/TT: 09/11/24 1230 ? Consumer Sales Representative: ? Procedure Note Mallorie Coles - 09/11/[address] [address] XRay Report Signed Patient: Mohan Gonzalez AMR#: [id number] : 1960cct:[id number] Age/Sex: 64 / MADM Date: 09/11/24 Loc: HO.HHCX Attending Dr: Sara Alejandra MD Ordering Physician: Sara Alejandra MD Date of Service: 09/11/24 Procedure(s): XR shoulder LT min 2V Accession Number(s): [id number] cc: Sara Alejandra MD EXAMINATION: XR SHOULDER, [...] 09/11/24 1312 DD/ 1205 TD/TT: 09/11/24 1230 Consumer Sales Representative: us Sara Alejandra MD IMG XR PROCEDURES Final Re sult * CT Abdomen Pelvis w/ Contrast (08/17/2024 8:44 PM EST) Anatomical Region Laterality Modality Body, Pelvis, Abdomen Computed T omography 08/17/2024 8:44 PM EST Narrative 08/17/2024 8:46 PM EST ? [facility] ?[address] ?[place] [address] ? CT Scan Report ? Signed ? Patient: Geoffrey bundykeith He ?MR#: [id number] ?? [id number] ? : 1960 ?Acct:[id number] ? Age/Sex: 64 / M ?ADM Date: 08/17/24 ? Loc: HO.ED ? Attending Dr: ? Ordering Physician: Vito Marquez MD ?? Date of Service: 08/17 ?? Procedure(s): CT abdomen pelvis w IV con ?? Accession Number(s): [id number] ? cc: Vito Marquez MD; [facility] ? Report Number: ?? [id number]: Total DLP = ??703.00 mGy-cm ? CLINICAL HISTORY: abd pain ? CT abdomen and pelvis with contrast ? Comparison: CT/CT/SR - CT ABDOMEN PELVIS WO IV CON [...] ? DD/ 43 ? TD/TT: 08/17/242043 ? Consumer Sales Representative: ? Procedure Note Sanket, Image - 12/30/[address] [address] [address] Scan Report Signed Patient: Mohan Gonzalez AMR#: [id number] : 1960cct:[id number] Age/Sex: 64 / MADM Date: 08/17/24 Loc: HO.ED Attending Dr: Ordering Physician: Vito Marquez MD Date of Service: 08/17/24 Procedure(s): CT abdomen pelvis w IV con Accession Number(s): [id number] cc: Vito Marquez MD; [facility] Report Number: [id number]: Total DLP = 703.00 mGy-cm CLINICAL HISTORY: abd pain CT abdomen and pelvis with contrast Comparison: CT/CT/SR - CT ABDOMEN PELVIS WO IV CON [...] in OV> 08/17/242044 DD/ 43 TD/TT: 08/17/242043 Consumer Sales Representative: [facility] External Provider IMG CT PROCEDURES Final Result * CT Lumbar Spine w/o Contrast (08/17/2024 7:21 PM EST) Anatomical Region Laterality Modality Spine, L-spine Computed Tomogra phy 08/17/2024 7:21 PM EST Narrative 08/17/2024 7:23 PM EST ? [facility] ?[address] ?[place] [address] ? CT Scan Report ? Signed ? Patient: Mohan Gonzalez ?MR#: [id number] ?? [id number] ? : 1960 ?Acct:[id number] ? Age/Sex: 64 / M ?ADM Date: 08/17/24 ? Loc: HO.ED ? Attending Dr: ? Ordering Physician: Vito Marquez MD ?? Date of Service: 08/17/24 ?? Procedure(s): CT lumbar spine wo IV con ?? Accession Number(s): [id number] ? cc: Vito Marquez MD; [facility] ? Report Number: ?? [id number]: Total DLP = ??688.00 mGy-cm ? CLINICAL [...] ? DD/ 20 ? TD/TT: 08/17/241920 ? Consumer Sales Representative: ? Procedure Note Donotuseinterpreter, Image - 08/17/[address] [place] [address] [address] Scan Report Signed Patient: Mohan Gonzalez AMR#: [id number] : 1960cct:[id number] Age/Sex: 64 / MADM Date: 08/17/24 Loc: HO.ED Attending Dr: Ordering Physician: Vito Marquez MD Date of Service: 08/17/24 Procedure(s): CT lumbar spine wo IV con Accession Number(s): [id number] cc: Vito Marquez MD; [facility] Report Number: [id number]: Total DLP = 688.00 mGy-cm CLINICAL HISTORY: [...] in OV> 08/17/241921 DD/ 20 TD/TT: 08/17/241920 Consumer Sales Representative: us [facility] External Provider IMG CT PROCEDURES Final Result * XR Chest 1 View (08/17/2024 7:05 PM EST) Anatomical Region Laterality Modality Chest Radiographic Paty ging 08/17/2024 7:05 PM EST Narrative 08/17/2024 7:06 PM EST ? [place] [facility] ?[address] ?[place] [address] ?XRay Report ? Signed ? Patient: ,Mohan A ?MR#: [id number] ?? [id number] ? : 1960 ?Acct:[id number] ? Age/Sex: 64 / M ?ADM Date: 08/17/24 ? Loc: HO.ED ? Attending Dr: ? Ordering Physician: Vito Marquez MD ?? Date of Service: 08/17/24 ?? Procedure(s): XR chest 1V ?? Accession Number(s): [id number] ? cc: Vito Marquez MD; [facility] ? CLINICAL HISTORY: wheezing ? 1 view [...] in OV> ? 08/17/24 1906 ? DD/ 04 ? TD/TT: 08/17/241904 ? Consumer Sales Representative: ? Procedure Note Mallorie Coles - 08/17/2024 [place] [address] XRay Report Signed Patient: Mohan Gonzalez AMR#: [id number] : 1960cct:[id number] Age/Sex: 64 / MADM Date: 08/17/24 Loc: HO.ED Attending Dr: Ordering Physician: Vito Marquez MD Date of Service: 08/17/24 Procedure(s): XR chest 1V Accession Number(s): [id number] cc: Vito Marquez MD; [facility] CLINICAL HISTORY: wheezing 1 view chest x-ray [...] in OV> 08/17/241905 DD/ 04 TD/TT: 08/17/241904 Consumer Sales Representative: [facility] External Provider IMG XR PROCEDURES Final Result * Blood Culture (Second) (08/17/2024 6:29 PM EST) Blood Venous blood specimen / Unknown 08/17/2024 6:29 PM EST 08/17/2024 6:34 PM EST Comment:Blood Narrative [facility] - 08/22/2024 8:34 PM EST Blood Culture (Second) No growth after 5 days. Specimen Source: Blood Generic External Data Provider LAB MICROBIOLOGY - GENERAL ORDERABLES Final Result Performing Organization Address [facility] Co de Phone Number [facility] [address] [place] [phone] * Ethanol (08/17/2024 6:29 PM EST) ETHANOL (MG/DL) IN SER/PLAS <10 mg/dL [facility] Comment:Serum/plasma ethanol results are to be used formedical/treatment purposes only. 08/17/2024 6:29 PM EST 08/17/2024 6:34 PM EST Generic External Data Provider LAB BLOOD ORDERAB LES Final Result Performing Organization Address [facility] Co de Phone Number [facility] [address] [place] [phone] * (ABNORMAL) VENOUS BLOOD GAS (08/17/2024 6:22 PM EST) VBG pH 7.37 7.32 - 7.43 [facility] Comment:METER #: [id number] additional_comment: Adonay manzanares VBG PCO2 35 mmHg [facility] Comment:METER #: [id number] additional_comment: Adonay manzanares VBG PO2 40 mmHg [facility] Comment:METER #: [id number] additional_comment: Adonay manzanares VBG Base Excess -3.9 mmol/L [facility] Comment:METER #: [id number] additional_comment: Adonay manzanares VBG HCO3 20(L) 22 - 26 mmol/L [facility] Comment:METER #: [id number] additional_comment: Adonay manzanares O2 Sat, Jovan 59.0 % [facility] Comment:METER #: [id number] additional_comment: Adonay manzanares 08/17/2024 6:22 PM EST 08/17/2024 6:27 PM EST us Generic External Data Provider LAB BLOOD ORDERAB LES Final Result [facility] [address] [place] [phone] [phone] * SARS-CoV-2 RNA, Influenza A/B, and RSV RNA, Ql NAAT (08/17/2024 6:14 PM EST) Influenza A PCR NEGATIVE Negative [facility] Influenza B PCR NEGATIVE Negative [facility] Resp Syncy Virus RNA Qual PCR NEGATIVE Negative [facility] SARS COV2 PCR NEGATIVE Negative [facility] Comment:All test results mus t [...] use by authorized laboratories.Testing performed on the [employer] GeneXpert utilizingreal-time RT-PCR.All SARS CoV2 and positive influenza A/B results arereported to [facility]. 08/17/2024 6:14 PM EST 08/17/2024 6:20 PM EST Generic External Data Provider LAB MICROBIOLOGY - GENERAL ORDERABLES Final Result Performing Organization Address City/[facility]/ZIP Co de Phone Number [facility] [address] [place] [address] [phone] * Blood Culture (First) (08/17/2024 6:13 PM EST) Blood Venous blood specimen / Unknown 08/17/2024 6:13 PM EST 08/17/2024 6:20 PM EST Comment:Blood Narrative [facility] - 08/20/2024 11:08 AM EST [...] Culture (First) Gram stain reviewed by a Cover Creaser Blood Culture (First) MRSA PCR Blood Culture (First) MRSA: Negative, SA: Negative Coag negative Staphylococcus CBLD STANEG comment Unlikely pathogen; call Micro if full workup indicated. Results of Blood Culture gram stain called to and read back by ADRIANA at 2252 on 08/18/24 by TIFFANIE. Specimen Source: Blood Generic External Data Provider LAB MICROBIOLOGY - GENERAL ORDERABLES Final Result Performing Organization Address City/[facility]/ZIP Co de Phone Number [facility] [address] [place] [address] [phone] * High Sensitivity Troponin I (08/17/2024 6:13 PM EST) TROPONIN I HIGH SENSITIVITY 4.3 <3.5 - 35.0 ng/L [facility] Comment:The Erwin high sens itivity Troponin-I results should beused in conjunction with other diagnostic information suchas ECG, clinical observations and information, and patientsymptoms to aid in the diagnosis of [place]. 08/17/2024 6:13 PM EST 08/17/2024 6:20 PM EST us Generic External Data Provider LAB BLOOD ORDERAB LES Final Result [facility] [address] [place] [phone] * (ABNORMAL) CBC auto differential (08/17/2024 6:13 PM EST) White Blood Count 6.4 4.8 - 10.8 X10*3/uL [facility] Red Blood Count 3.62(L) 4.60 - 5.80 X10*6/uL [facility] Hemoglobin 11.0(L) 14.0 - 18.0 g/dl [facility] Hematocrit 32.9(L) 42.0 - 52.0 % [facility] Mean Corpuscular Volume 90.9 80.0 - 98.0 fL [facility] Mean Corpuscular Hemoglobin 30.4 27.0 - 33.0 pg [facility] Mean Corpuscular HGB Conc 33.4 31.0 - 36.0 g/dl [facility] Red Cell Distribution Width 16.3(H) 11.0 - 16.0 % [facility] Platelet Count 49(L) 160 - 400 X10*3/uL [facility] Mean Platelet Volume 9.1(L) 9.4 - 12.4 fL [facility] Neutrophils Percent Auto 77.3(H) 45 - 73 % [facility] Imm Gran Pct Auto 0.3 0.0 - 0.4 % [facility] Lymphocytes Percent Auto 14.6(L) 20 - 40 % [facility] Monocytes Percent Auto 6.4 2 - 11 % [facility] Eosinophils Percent Auto 0.6 0 - 4 % [facility] Basophils Percent Auto 0.8 0 - 2 % [facility] NRBC Pct Auto 0.0 0.0 - 0.2 /100WBC [facility] Neutrophils Absolute Auto 4.9 2.0 - 8.3 x10*3/uL [facility] Imm Gran Abs Auto 0.02 0.00 - 0.03 X10*3/uL [facility] Lymphocytes Absolute Auto 0.9(L) 1.2 - 4.9 X10*3/uL [facility] Monocytes Absolute Auto 0.4 0.1 - 1.2 X10*3/uL [facility] Eosinophils Absolute Auto 0.0 0.0 - 0.4 X10*3/uL [facility] Basophils Absolute Auto 0.1 0.0 - 0.2 X10*3/uL [facility] NRBC Abs Auto 0.000 0.0 - 0.012 X10*3/uL [facility] 08/17/2024 6:13 PM EST 08/17/2024 6:20 PM EST us Generic External Data Provider LAB BLOOD ORDERAB LES Final Result Performing Organization Address City/[facility] Co de Phone Number [facility] [address] [place] [address] [phone] * (ABNORMAL) Lactic Acid (08/17/2024 6:13 PM EST) Lactic Acid 2.5(HH) 0.5 - 2.0 mmol/L [facility] Comment:Critical value for t est(s): LATIC ACID Results called toand read back by: MELISSA Person calling: [email or web address] Date:08/17/24 Time: 1843 08/17/2024 6:13 PM EST 08/17/2024 6:20 PM EST us Generic External Data Provider LAB BLOOD ORDERAB LES Final Result Performing Organization Address [facility] Co de Phone Number [facility] [address] [place] [address] [phone] * (ABNORMAL) Basic Metabolic Panel (08/17/2024 6:13 PM EST) Sodium 142 135 - 145 mmol/L [facility] Potassium 4.8 3.3 - 5.1 mmol/L [facility] Chloride 104 96 - 108 mmol/L [facility] Carbon Dioxide 19(L) 22 - 29 mmol/L [facility] Anion Gap 24(H) 12 - 20 [facility] Urea Nitrogen (BUN) 18(H) 9 - 16 mg/dL [facility] Creatinine, Serum 1.08 0.5 - 1.4 mg/dL [facility] Creatinine Clr Calc Pharmacy 79.1 [facility] Comment:eGFR (calculated fro m the MDRD study equation) and eCrCl(calculated from the Cockcroft-Gault equation) are based ondifferent parameters and may not yield comparable results.If eCrCl result is absurd, please check patient'sheight/weight. Estimated Glomerular Filt Rate >60 [facility] Comment:Chronic Kidney Disea se: Estimated GFR < 60 mL/min/1.74q9Yzahmd Kidney Disease: Estimated GFR < 15 mL/min/1.73m2 Glucose 90 60 - 115 mg/dL [facility] Calcium 9.0 8.4 - 10.2 mg/dL [facility] 08/17/2024 6:13 PM EST 08/17/2024 6:20 PM EST us Generic External Data Provider LAB BLOOD ORDERAB LES Final Result [facility] [address] [place] [phone] * Lipid Panel with Reflex to Direct LDL (07/02/2024 11:24 AM EST) Triglycerides 83 <150 mg/dL [facility] Comment:Desirable Triglyceri de: less than 150 mg/dLBorderline High Triglyceride 150-199 mg/dLHigh Triglyceride: 200-499 mg/dLVery High Triglyceride: greater than or equal to 5OO mg/dL Cholesterol 150 <200 mg/dL [facility] Comment:Desirable Cholestero l: less than 200 mg/dLBorderline High Cholesterol: 200-239 mg/dLHigh Cholesterol: greater than 239 mg/dL LDL Cholesterol Calculated 68 <100 mg/dL [facility] Comment:Desirable LDL: less than 100 mg/dLNear Optimal/Above Optimal LDL: 110- 129 mg/dLBorderline High LDL: 130-159 mg/dLHigh LDL: 160-189 mg/dLVery High LDL: greater than or equal to 190 mg/dL HDL Cholesterol 66 >40 mg/dL [facility] Comment:Desirable HDL: great er than 40 mg/dL Note: This HDL assay may give artificially low results in patients with liver disease. Blood 07/02/2024 11:2 4 AM EST 07/02/2024 1:19 PM EST Samantha Gonzales MD LAB BLOOD ORDERABLES Final Resul t [facility] [address] [place] [phone] * Hm Colonoscopy (09/20/2023) Colonoscopy Normal Normal [facility] Provider HEALTH MAINTENANCE Final Result * Hepatitis C Antibody with Reflex to HCV, RNA, Quantitative, Real-Time PCR (01/28/2023 9:34 AM EDT) Hepatitis C Antibody NON-REACT GENI NON-REACT GENI [employer] [place] [facility] Index 0.04 <1.00 [employer] [place] [facility] [facility] Comment: HCV antibody was non-reactive. There is no laboratory evidence of HCV infection. In most cases, no further action is required. However, if recent HCV exposure is suspected, a test for HCV RNA (test code 49864) is suggested. For additional information please refer to http://education.[employer]/faq/XYJ14e8 (This link is being provided for informational/ educational purposes only.) Blood Venous blood specimen / Unknown 01/28/2023 9:34 AM EDT 01/28/2023 9:34 AM EDT Narrative [facility] - 01/28/2023 9:34 PM EDT FASTING:YES FASTING: YES us Kerwin Mendoza MD LAB BLOOD ORDERABLES Final Resul t [facility] [address], [place] [address] [employer] [facility] [address] [place] [address] from Last 3 Months or Most Recently Relevant to Health Maintenance Insurance [address] [place], [place] [address] Care Teams Information Systems Director Relationship Specialty Start Date End Date Samantha Gonzales MD [address] [place] [address] PCP - General Family Medicine 07/09/13 [facility] 05/17/24
--- OUTSIDE RECORDS SUMMARY | 2024-10-16 05:37 | XMS_ITS | Encounter Summary ---
Author Organization [employer] Address [address] [place] [address] [address] [place] [address] Care Team Providers Care Salmon Gillnet Vessel Operator Name Role Phone Samantha Gonzales MD Primary Care Provider [phone] Reason for Visit * Reason Onset Date Comments urgent matter 10/10/2022 Encounter Details Date Type Department Care Team ([facility] st Contact Info) Description 10/10/2022 Telephone [facility] [address] [place], [place] [phone] Samantha Gonzales MD [address] [place], [place] [phone] urgent matter Social History Tobacco Use Types [...] EST Spoke with Karyn. Attended the court. Crystal Report Developer did not agree with Section 35 * Telephone Encounter - Luz Elena Ball Jones - 10/10/2022 1:58 PM EST Tc from Karyn with [facility] regarding to pt. Karyn states that is an urgent matter regarding to Section 35 and will need to speak with PCP, regarding the matter to set up a zoom meeting with PCP and the court. Security Intelligence Analyst contacted PCP in advise epic chat, and let PCP know what's going on. Please contact Karyn at [phone] documented in this encounter Plan of Treatment Upcoming Encounters Date Type Department Care Team (Late st Contact Info) Description 01/01/2025 10:30 AM EDT Office Visit [facility] [address] [place] [address] Lima Davenport, OD [address] [place] [address] documented as of this encounter Visit Diagnoses Not on filedocumented in this encounter Care Teams Salmon Gillnet Vessel Operator Relationship Specialty Start Date End Date Samantha Gonzales MD [address] [place] [phone] PCP - General Family Medicine 07/09/13 [facility] 05/17/24 documented as of this encounter
--- OUTSIDE RECORDS SUMMARY | 2024-10-16 05:37 | XMS_ITS | Encounter Summary ---
Author Organization [employer] Address [address] [place] [address] 7t [place] [address] Care Team Providers Care Radiologic Technology Teacher Name Role Phone Samantha Gonzales MD Primary Care Provider [phone] Reason for Visit * Reason Onset Date Comments Nurse Triage 06/22/2024 Encounter Details Date Type Department Care Team ([facility] st Contact Info) Description 06/22/2024 Telephone [facility] [address] [place], [place] [phone] Samantha Gonzales MD [address] [place], [place] [phone] Nurse Triage Social History Tobacco Use Types [...] to Pt reports that a person from [employer] comes every 2-3 days and changes dressing [...] booking. Pt will have another visit with [employer] prior to apt. Protocol Used: Wound Infection [...] Description 01/01/2025 10:30 AM EDT Office Visit [facility] [address] [place] [address] Lima Davenport, OD [address] [place], [place] [phone] documented as of this encounter Visit Diagnoses Not on filedocumented in this encounter Additional Health Concerns Assessment Noted Time PHQ-9 Depression Total Score: 3 12/15/19 23 1:37 PM EDT documented as of this encounter Care Teams Radiologic Technology Teacher Relationship Specialty Start Date End Date Samantha Gonzales MD [address] [place], [place] [phone] PCP - General Family Medicine 07/09/13 [facility] 05/17/24 documented as of this encounter
--- OUTSIDE RECORDS SUMMARY | 2024-10-16 05:37 | XMS_ITS ---
Author Organization [facility] Address [address] [place] [address] Care Team Providers Care Selector Packer Name Role Phone Janet SYLVESTER, Samantha Primary Care Provider Eric Flores [facility] [phone] REASON FOR VISIT Patient presents today for anemia and diarrhea Encounters Encounter Location Date Provider Diagnosis [facility] [address] [place] [address] 12/26/2023 Eric Lenz PLAN OF TREATMENT Next Appt Details Provider Name:Eric Lenz , 01/19/2025 01:00:00 PM, [address], [address], [place], [address],
--- OUTSIDE RECORDS SUMMARY | 2024-10-16 05:37 | XMS_ITS | Clinical Summary ---
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 -Last seen by [facility] Wound care in October 2021 -usually discharged [...] Plan: -multifactorial - nutritional, CKD -following with [facility] state highway police officer Aneurysm of ascending aorta 05/29/2016 Overview (11/07/2022): Last Assessment & Plan: -Most recent echo on 04/12/21, EF 60-65%, dilated ascending aorta 41mm -Echo on 04/05/20, EF 55-60%, dilated ascending aorta 42 mm, -Echo on 04/01/19 EF 60-65%, Aortic root dimension 37~43mm -Seen by his mainframe consultant, Dr. Claudio on n 07/11/22 -Pt advised [...] age to complete this topic [place] Care Teams Production Worker Relationship Specialty Start Date End Date Samantha Gonzales MD PCP - General 08/29/20
--- OUTSIDE RECORDS SUMMARY | 2024-10-16 05:37 | XMS_ITS | Encounter Summary ---
Author Organization [employer] Address [address] [place] [address] 7t [place] [address] Care Team Providers Care Database Technician Name Role Phone Samantha Gonzales MD Primary Care Provider [phone] Reason for Referral * Imaging (Routine) - Closed Specialty Diagnoses / Procedures Referred By Mildred silva Referred To Contact Diagnoses Thyroid nodule Procedures US Guided Thyroid Biopsy Samantha Gonzales MD [address] [place] [address] Phone: tel: fax: [address] Phone: tel: fax: Referral ID Status Reason Start Date Expiration Date Visits Re quested Visits Authorized [id number] Closed 11/14/2022 05/13/2023 1 1 Encounter Details Date Type Department Care Team (Late st Contact Info) Description 11/14/2022 Orders Only [facility] [address] [place], [place] [phone] Samantha Gonzales MD [address] [place] [address] Thyroid nodule (Primary Dx) Social [...] Description 01/01/2025 10:30 AM EDT Office Visit [facility] [address] [place] [address] Issac, Lima, OD [address] [place] [address] Scheduled Orders Name Type Priority Associated Diagnoses Orde r Schedule US Guided Thyroid Biopsy Imaging Routine Thyroid nodule Expected: 11/14/2022 (Approximate), Expires: 11/15/2023 documented as of this encounter Visit Diagnoses Diagnosis Thyroid nodule- Primary Nontoxic uninodular goiter documented in this encounter Care Teams Database Technician Relationship Specialty Start Date End Date Samantha Gonzales MD [address] [place] [address] PCP - General Family Medicine 07/09/13 [facility] 05/17/24 documented as of this encounter
--- OUTSIDE RECORDS SUMMARY | 2024-10-16 05:37 | XMS_ITS | Patient Health Record ---
Author Organization [facility] Address [address] [place] [address] Care Team Providers Care Product Lead Name Role Phone Janet SYLVESTER, Samantha Primary Care Provider Eric Flores [phone] RESULTS Component Value Reference Range Notes Complete Blood Count Auto Di ff (Not yet reviewed by provider) Interpretation: Performing Lab:[facility], [address] [place] [phone] Notes/Report: White Blood Count 5.2 4.8-10.8 X10*3/uL [...] Panel Reviewed date:11/06/2023 11:54:48 PM Interpretation: Performing Lab:[facility], [address] [place] [phone] Notes/Report: Sodium 146 135-145 mmol/L Potassium 4.4 3.3-5.1 mmol/L Chloride 111 96-108 mmol/L Carbon Dioxide 26 22-29 mmol/L Anion Gap 13 12-20 Blood Urea Nitrogen 15 9-16 mg/dL Creatinine 0.91 0.5-1.4 mg/dL Estimated Glomerular Filt Rate > 60 NOTE: For -Jordanian individuals, multiply the result by 1.210. Chronic Kidney Disease: Estimated GFR < 60 mL/min/1.73m2 Severe Kidney Disease: Estimated GFR < 15 mL/min/1.73m2 Glucose Random 100 60-115 mg/dL Calcium 8.6 8.4-10.2 mg/dL Magnesium Reviewed date:11/06/2023 02:57:18 PM Interpretation: Performing Lab:[facility], [address] [place] [phone] Notes/Report: Magnesium 1.6 1.6-2.6 mg/dL IRON PROFILE Reviewed date:11/06/2023 11:54:59 PM Interpretation: Performing Lab:[facility], [address] [place] [phone] Notes/Report: Iron 76 45-160 mcg/dL Total Iron Binding Capacity 174 228-428 mcg/d L Percent Iron Saturation 44 15-50 % Unsaturated Iron Binding 98 Ferritin Reviewed date:11/06/2023 11:55:09 PM Interpretation: Performing Lab:[facility], [address] [place] [phone] Notes/Report: Ferritin 363 20-250 ng/mL Folate Reviewed date:11/07/2023 08:38:27 AM Interpretation: Performing Lab:[facility], [address], [place] [address] Notes/Report: Folate 3.4 > or = 4.0 ng/mL Reference Values: > or = 4.0 ng/mL < 4.0 ng/mL suggests folate deficiency Methotrexate, aminopterin and folinic acid (leucovorin) are chemotherapeutic agents whose molecular structures are similar to folate; therefore, the Cheerleading Coach folate assay cannot be used for patients using these drugs. REASON FOR REFERRAL Referring Provider First Name Samantha Referring Provider Last Name Janet Referring Provider Speciality Internal M edicine Referred Organization [facility] Referred Provider Eric Lenz Referred Address [address],[place] [address],[place], [place],[address], Referred Provider Specialty Gastroentero logy General Notes Risa Beckwith 024 12:08:55 PM EDT > requested a [facility] for visit with Dr. Lenz on [phone] Referral Priority Routine SOCIAL HISTORY Sex Assigned At : Social History Observation Description Sex Assigned At Unknown PROBLEMS Problem Type ICD Code Onset Dates Problem Status W/U Status Risk SNOMED Code Notes Problem Esophageal reflux (K21.9) Active confirmed Esophageal reflux (972899301) Problem Diverticulosis of large intestine without perforation or abscess without bleeding (K57.30) Active confirmed Diverticul ar disease of colon (362238103) Problem Iron deficiency anemia (D50.9) Active confirmed Iron deficien cy anemia (29299846) Problem Anemia (D64.9) Active confirmed Anemia (864012705) Problem Gastritis (K29.70) Active confirmed Gas tritis (8976556) Encounters Encounter Location Date Provider Diagnosis [facility] [address] [place] [address] 12/26/2023 Eric Lenz [facility] [address] [place] [address] 12/26/2023 Eric Lenz PLAN OF TREATMENT Pending Test Test Name Order Date IRON + IBC (FE) 10/06/2023 CBC w DIFF 10/06/2023 Complete Blood Count Auto Diff Ferritin 10/06/2023 Folate 10/06/2023 Next Appt Details Provider Name:Eric Lenz , 01/19/2025 01:00:00 PM, [address], [address], [place], [address], Insurance Providers Payer Name Payer Address Payer Phone Subscriber Number Group Number Insured Name Patient Relationship to Insured Coverage Start Date Coverage End Date MEDICAID OF [facility] [address] [place] [phone] [id number] MARYLIN WALDEN Self - patient is the insured
--- OUTSIDE RECORDS SUMMARY | 2024-10-16 05:37 | XMS_ITS | Encounter Summary ---
Author Organization [employer] Address [address] [place] [address] 7t [place] [address] Care Team Providers Care Patternmaker Sample Name Role Phone Samantha Gonzales MD Primary Care Provider [phone] Encounter Details Date Type Department Care Team (Late Contact Info) Description 01/29/2023 Orders Only [facility] [address] [place], [place] [phone] Samantha Gonzales MD [address] [place], [place] [phone] Hypomagnesemia (Primary Dx) Social History Tobacco Use [...] Description 01/01/2025 10:30 AM EDT Office Visit [facility] [address] [place] [address] Lima Davenport, OD [address] [place] [address] Scheduled Orders Name Type Priority Associated Diagnoses [...] documented as of this encounter Care Teams Patternmaker Sample Relationship Specialty Start Date End Date Samantha Gonzales MD [address] [place] [address] PCP - General Family Medicine 07/09/13 [facility] 05/17/24 documented as of this encounter
--- OUTSIDE RECORDS SUMMARY | 2024-10-16 05:37 | XMS_ITS | Encounter Summary ---
Author Organization [employer] Address [address] [place] [address] 7t [place] [address] Care Team Providers Care Manager Of Operations Name Role Phone Samantha Gonzales MD Primary Care Provider [phone] Encounter Details Date Type Department Care Team ([facility] Contact Info) Description 12/17/2022 Abstract [facility] [address] [place], [place] [phone] Zee Szymanski MD [address] [place], [place] [phone] Social History Tobacco Use Types Packs/Day Years [...] Upcoming Encounters Date Type Department Care Team ([facility] Contact Info) Description 01/01/2025 10:30 AM EDT Office Visit [facility] [address] [place], [place] [phone] Issac, Lima, OD [address] [place], [place] [phone] documented as of this encounter Visit Diagnoses Not on filedocumented in this encounter Additional Health Concerns Assessment Noted Time PHQ-9 Depression Total Score: 3 12/15/19 23 1:37 PM EDT documented as of this encounter Care Teams Manager Of Operations Relationship Specialty Start Date End Date Samantha Gonzales MD [address] [place] [address] PCP - General Family Medicine 07/09/13 [facility] 05/17/24 documented as of this encounter
--- OUTSIDE RECORDS SUMMARY | 2024-10-16 05:38 | XMS_ITS | Encounter Summary ---
Author Organization [employer] Address [address] [facility] 7t [place] [address] Care Team Providers Care Audiovisual Production Specialist Name Role Phone Samantha Gonzales MD Primary Care Provider [phone] Reason for Visit * Reason Comments Care Coordination Outreach Encounter Details Date Type Department Care Team (Latest Contact Info) Description 10/08/2024 Patient Outreach [facility] [address] [place], [place] [phone] Samantha Gonzales MD [address] [place] [address] Care Coordination (Outreach) Social History Tobacco Use [...] encounter Progress Notes * Tosha Newby - 10/08/2024 12:30 PM EST CHW Tosha Newby , placed outbound call to patient in regards to offer services. CHW introducing herself from [facility] CM Department with CHW's name, department and direct contact [phone] requesting call back. Will re-attempt to contact within 5 days. and address not confirmed. documented in this encounter Plan of Treatment Upcoming Encounters Date Type Department Care Team (Late st Contact Info) Description 01/01/2025 10:30 AM EDT Office Visit [facility] [address] [place] [address] Issac, Lima, OD [address] [place] [address] documented as of this encounter Visit Diagnoses Not on filedocumented in this encounter Additional Health Concerns Assessment Noted Time PHQ-9 Depression Total Score: 0 06/25/20 24 11:09 AM EST documented as of this encounter Care Teams Audiovisual Production Specialist Relationship Specialty Start Date End Date Samantha Gonzales MD [address] [place] [address] PCP - General Family Medicine 07/09/13 [facility] 05/17/24 documented as of this encounter
--- OUTSIDE RECORDS SUMMARY | 2024-10-16 05:38 | XMS_ITS | Encounter Summary ---
Author Organization [employer] Address [address] [facility] 7t [place] [address] Care Team Providers Care Toolmaker Helper Name Role Phone Samantha Gonzales MD Primary Care Provider [phone] Encounter Details Date Type Department Care Team (Late st Contact Info) Description 09/17/2024 Telephone [facility] [address] [place], [place] [phone] Karyn Mann RN Social History Tobacco Use [...] follow up appt with Dr Sow at [facility] on 09/19/24 at 1:15pm. [...] Description 01/01/2025 10:30 AM EDT Office Visit [facility] [address] [place], [place] [phone] IssacLima pratt, OD [address] [place] [address] documented as of this encounter Visit Diagnoses Not on filedocumented in this encounter Additional Health Concerns Assessment Noted Time PHQ-9 Depression Total Score: 0 06/25/20 24 11:09 AM EST documented as of this encounter Care Teams Toolmaker Helper Relationship Specialty Start Date End Date Samantha Gonzales MD [address] [place] [address] PCP - General Family Medicine 07/09/13 [facility] 05/17/24 documented as of this encounter
--- OUTSIDE RECORDS SUMMARY | 2024-10-16 05:38 | XMS_ITS ---
Author Organization [facility] Address [address] [place] [address] Care Team Providers Care Community Health Advocate Name Role Phone Janet SYLVESTER, Samantha Primary Care Provider Eric Flores [phone] REASON FOR VISIT Needs OV PROBLEMS Problem Type ICD Code Onset Dates Problem Status W/U Status Risk SNOMED Code Notes Problem Anemia (D64.9) Active confirmed Anemia (676204159) Encounters Encounter Location Date Provider Diagnosis [facility] [address] [place] [address] 10/06/2023 Eric Lenz Anemia D64.9 ASSESSMENTS Encounter Date Diagnosis Assessment Notes Treatment Notes Treatment Clinical Notes 10/06/2023 Anemia (ICD-10 - D64.9) PLAN OF TREATMENT Pending Test Test Name Order Date IRON + IBC (FE) 10/06/2023 CBC w DIFF 10/06/2023 Ferritin 10/06/2023 Folate 10/06/2023 Next Appt Details Provider Name:Eric Lenz , 01/19/2025 01:00:00 PM, [address] [facility] [address], [address], [place], [address],
--- OUTSIDE RECORDS SUMMARY | 2024-10-16 05:38 | XMS_ITS | Encounter Summary ---
Author Organization [employer] Address [address] 7t [place] [address] Care Team Providers Care Digital Publishing Specialist Name Role Phone Samantha Gonzales MD Primary Care Provider [phone] Encounter Details Date Type Department Care Team (Late st Contact Info) Description 10/06/2024 Orders Only [facility] External Provider, [facility] Social History Tobacco Use Types Packs/Day Years [...] Description 01/01/2025 10:30 AM EDT Office Visit [facility] [address] [place] [address] Issac, Lima, OD [address] [place] [address] documented as of this encounter Procedures Procedure Name Priority Date/Time Associated Diagnosis Comments XR HAND 1-2 VIEWS LEFT Routine 10/06/2024 11:03 PM EST XR ELBOW 1-2 VIEWS LEFT Routine 10/06/2024 11:00 PM EST XR WRIST 3+ VIEWS LEFT Routine 10/06/2024 10:58 PM EST documented in this encounter Results * XR Hand 1-2 Views Left (10/06/2024 11:03 PM EST) Anatomical Region Laterality Modality Upper Extremities, Hand Left Radiogra phic Imaging 10/06/2024 11:0 3 PM EST Narrative 10/06/2024 11:05 PM EST ? [facility] ?[address] ?[place] [address] ?XRay Report ? Signed ? Patient: ummer,Mohan A ?MR#: [id number] ?? [id number] ? : 1960 ?Acct:[id number] ? Age/Sex: 64 / M ?ADM Date: 02/18/25 ? Loc: HO.ED ? Attending Dr: ? Ordering Physician: Reese Melendez MD ?? Date of Service: 10/06/24 ?? Procedure(s): XR hand LT 2V ?? Accession Number(s): [id number] ? cc: Reese Melendez MD; Samantha Gonzales [...] on ?? 10/06/2024 23:03:21 ? Dictated By: ?Maximo Sainz MD ? Signed By: ?<Electronically signed by Maximo Sainz MD in OV> ? 10/06/245 ? DD/ 02 ? TD/TT: 10/06/242302 ? Pantograph Machine Operator: ? Procedure Note Sanket, Mallorie - 10/07/[address] [address] XRay Report Signed Patient: Mohan Gonzalez AMR#: [id number] : 1960cct:[id number] Age/Sex: 64 / MADM Date: 10/06/24 Loc: HO.ED Attending Dr: Ordering Physician: Reese Melendez MD Date of Service: 10/06/24 Procedure(s): XR hand LT 2V Accession Number(s): [id number] cc: Reese Melendez MD; Samantha Gonzales MD [...] in OV> 10/06/242304 DD/ 02 TD/TT: 10/06/242302 Pantograph Machine Operator: us [facility] External Provider IMG XR PROCEDURES Edited Result - Final * XR Elbow 1-2 Views Left (10/06/2024 11:00 PM EST) Anatomical Region Laterality Modality Upper Extremities, Elbow Left Radiogr aphic Imaging 10/06/2024 11:0 0 PM EST Narrative 10/06/2024 11:02 PM EST ? [facility] ?[address] ?[place], [place] [address] ?XRay Report ? Signed ? Patient: Mohan Gonzalez ?MR#: [id number] ?? [id number] ? : 1960 ?Acct:[id number] ? Age/Sex: 64 / M ?ADM Date: 10/06/24 ? Loc: HO.ED ? Attending Dr: ? Ordering Physician: Reese Melendez MD ?? Date of Service: 10/06/24 ?? Procedure(s): XR elbow LT 2V ?? Accession Number(s): [id number] ? cc: Reese Melendez MD; Samantha Gonzales [...] MD ? Signed By: ?<Electronically signed by Maximozachariah Sainz MD in OV> ? 10/06/242301 ? DD/ 99 ? TD/TT: 10/06/242299 ? Pantograph Machine Operator: ? Procedure Note Mallorie Coles - 10/07/[address] [address] XRay Report Signed Patient: Mohan Gonzalez AMR#: [id number] : 1Acct:[id number] Age/Sex: 64 / MADM Date: 10/06/24 Loc: HO.ED Attending Dr: Ordering Physician: Reese Melendez MD Date of Service: 10/06/24 Procedure(s): XR elbow LT 2V Accession Number(s): [id number] cc: Reese Melendez MD; Samantha Gonzales MD [...] in OV> 10/06/242301 DD/ 99 TD/TT: 10/06/242299 Pantograph Machine Operator: [facility] External Provider IMG XR PROCEDURES Edited Result - Final * XR Wrist 3+ Views Left (10/06/2024 10:58 PM EST) Anatomical Region Laterality Modality Upper Extremities, Wrist Left Radiogr aphic Imaging 10/06/2024 10:5 8 PM EST Narrative 10/06/2024 11:00 PM EST ? [facility] ?[address] ?[place] [address] ?XRay Report ? Signed ? Patient: Mohan Gonzalez ?MR#: [id number] ?? [id number] ? : 1960 ?Acct:[id number] ? Age/Sex: 64 / M ?ADM Date: 02/18/25 ? Loc: HO.ED ? Attending Dr: ? Ordering Physician: Reese Melendez MD ?? Date of Service: 10/06/24 ?? Procedure(s): XR wrist LT min 3V ?? Accession Number(s): [id number] ? cc: Reese Melendez MD; Samantha Gonzales [...] in OV> ? 10/06/24 2300 ? DD/ ? TD/TT: 10/06/242257 ? Pantograph Machine Operator: ? Procedure Note Donhoracioreji, Image - 10/06/[address] [address] XRay Report Signed Patient: Mohan Gonzlaez AMR#: [id number] : 1960cct:[id number] Age/Sex: 64 / MADM Date: 10/06/24 Loc: HO.ED Attending Dr: Ordering Physician: Reese Melendez MD Date of Service: 10/06/24 Procedure(s): XR wrist LT min 3V Accession Number(s): [id number] cc: Reese Melendez MD; Samantha Gonzales MD [...] in OV> 10/06/242299 DD/ 57 TD/TT: 10/06/242257 Pantograph Machine Operator: [facility] External Provider IMG XR PROCEDURES Edited Result - Final documented in this encounter Visit Diagnoses Not on filedocumented in this encounter Additional Health Concerns Assessment Noted Time PHQ-9 Depression Total Score: 0 06/25/20 24 11:09 AM EST documented as of this encounter Care Teams Digital Publishing Specialist Relationship Specialty Start Date End Date Samantha Gonzales MD [address] [place] [address] PCP - General Family Medicine 07/09/13 [facility] 05/17/24 documented as of this encounter
--- OUTSIDE RECORDS SUMMARY | 2024-10-16 05:38 | XMS_ITS | Encounter Summary ---
Author Organization [employer] Address [address] [facility] 7t [place] [address] Care Team Providers Care Furniture Removalist'S Assistant Name Role Phone Samantha Gonzales MD Primary Care Provider [phone] Reason for Visit * Reason Onset Date Comments chart prep 10/06/2024 Encounter Details Date Type Department Care Team ([facility] st Contact Info) Description 10/06/2024 Telephone [facility] [address] [place], [place] [phone] Darcy Mariee [place] chart prep Social History [...] Description 01/01/2025 10:30 AM EDT Office Visit [facility] [address] [place] [address] Lima Davenport, OD [address] [place] [address] documented as of this encounter Visit Diagnoses Not on filedocumented in this encounter Additional Health Concerns Assessment Noted Time PHQ-9 Depression Total Score: 0 06/25/20 24 11:09 AM EST documented as of this encounter Care Teams Furniture Removalist'S Assistant Relationship Specialty Start Date End Date Samantha Gonzales MD [address] [place] [address] PCP - General Family Medicine 07/09/13 [facility] 05/17/24 documented as of this encounter
--- OUTSIDE RECORDS SUMMARY | 2024-10-16 05:38 | XMS_ITS | Encounter Summary ---
Author Organization [employer] Address [address] [place] [address] [address] [place] [address] Care Team Providers Care Counter Manager Name Role Phone Samantha Gonzales MD Primary Care Provider [phone] Reason for Visit * Reason Onset Date Comments OV 01/2601/24/2024 Encounter Details Date Type Department Care Team ([facility] st Contact Info) Description 01/24/2024 Telephone [facility] [address] [place], [place] [phone] Samantha Gonzales MD [address] [place], [place] [phone] OV 01/26 Social History Tobacco Use Types [...] state he is currently in rehab in [place] and due to a set back pt does not have any transportation to make it to [place] on Saturday. If any questions please contact pt at [phone]. documented in this encounter Plan of Treatment Upcoming Encounters Date Type Department Care Team (Late st Contact Info) Description 01/01/2025 10:30 AM EDT Office Visit [facility] OPTOM[facility]RY [address] [place] [address] Issac, Lima, OD [address] [place] [address] documented as of this encounter Visit Diagnoses Not on filedocumented in this encounter Additional Health Concerns Assessment Noted Time PHQ-9 Depression Total Score: 3 12/15/19 23 1:37 PM EDT documented as of this encounter Care Teams Counter Manager Relationship Specialty Start Date End Date Samantha Gonzales MD [address] [place] [address] PCP - General Family Medicine 07/09/13 [facility] 05/17/24 documented as of this encounter
--- OUTSIDE RECORDS SUMMARY | 2024-10-16 05:38 | XMS_ITS ---
Author Organization [facility] Address [address] [place] [address] Care Team Providers Care Health And Safety Specialist Name Role Phone Janet SYLVESTER, Samantha Primary Care Provider Eric Flores Unavailable [phone] REASON FOR VISIT ov appt Encounters Encounter Location Date Provider Diagnosis [facility] [address] [place] [address] 12/26/2023 Eric Lenz PLAN OF TREATMENT Next Appt Details Provider Name:Eric Lenz , 01/19/2025 01:00:00 PM, [address] [place] [address], [address], [place], [address],
--- OUTSIDE RECORDS SUMMARY | 2024-10-16 05:38 | XMS_ITS | Encounter Summary ---
Author Organization [employer] Address [address] [place] [address] Care Team Providers Care Puttier Name Role Phone Samantha Gonzales MD Primary Care Provider [phone] Encounter Details Date Type Department Care Team (Latest Contact Info) Description 10/08/2024 Travel Social History Tobacco Use Types Packs/Day [...] Description 01/01/2025 10:30 AM EDT Office Visit [facility] OPTOMETRY [address] [place] [address] Issac, Lima, OD [address] [place], [place] [phone] documented as of this encounter Visit Diagnoses Not on filedocumented in this encounter Additional Health Concerns Assessment Noted Time PHQ-9 Depression Total Score: 0 06/25/20 24 11:09 AM EST documented as of this encounter Care Teams Puttier Relationship Specialty Start Date End Date Samantha Gonzales MD [address] [place], [place] [phone] PCP - General Family Medicine 07/09/13 [facility] 05/17/24 documented as of this encounter
--- OUTSIDE RECORDS SUMMARY | 2024-10-16 05:38 | XMS_ITS | Encounter Summary ---
Author Organization [employer] Address [address] [place] [address] [address] [place] [address] Care Team Providers Care Bit Sander Name Role Phone Samantha Gonzales MD Primary Care Provider [phone] Reason for Referral * Consultation (Urgent) - Authorized Specialty Diagnoses / Procedures Referred By Mildred t Referred To Contact Behavioral Health Diagnoses Caregiver stress Samantha Gonzales MD [address] [place] [address] Phone: tel: fax: Referral ID Status Reason Start Date Expiration Date Visits Requested Visits Authorized [id number] Authorized Specialty Services Required 10/14/2024 10/14/2025 1 1 * Consultation (Routine) - Authorized Specialty Diagnoses / Procedures Referred By Mildred silva Referred To Contact Orthopaedic Surgery Diagnoses Left hand pain Chronic pain of left thumb Acute pain of left wrist Samantha Gonzales MD [address] [place] [address] Phone: tel: fax: [facility] [address] [place] [address] Phone: tel: Referral ID Status Reason Start Date Expiration Date Visits Requested Visits Authorized [id number] Authorized Specialty Services Required 10/08/2024 10/08/2025 6 6 * Imaging (Routine) - Authorized Specialty Diagnoses / Procedures Referred By Contac t Referred To Contact Radiology Diagnoses Left hand pain Chronic pain of left thumb Acute pain of left wrist Procedures CT Wrist w/o Contrast Left Samantha Gonzales MD [address] [place] [address] Phone: tel: fax: [address] Phone: tel: fax: Referral ID Status Reason Start Date Expiration Date V isits Requested Visits Authorized [id number] Authorized 10/08/2024 10/08/2025 1 1 Encounter Details Date Type Department Care Team (Late st Contact Info) Description 10/08/2024 11:00 AM EST Office Visit [facility] [address] [place] [address] Samantha Gonzales MD [address] [place] [address] Left hand pain (Primary Dx); Dietary counseling; [...] deficiency anemia, unspecified iron deficiency anemia type Social History Tobacco Use Types Packs/Day Years [...] 10/08/2024 11:[address] Respiratory Rate 10/08/2024 11:33 AM EST Oxygen Saturation - - Inhaled Oxygen Concentration - - Weight 101 kg (221 lb 12.8 oz) 10/08/2024 11:33 AM EST Height - - Body Mass Index 34.74 09/11/2024 11:31 AM EST documented in this encounter Progress Notes * Samantha Gonzales MD - 10/08/2024 11:00 AM EST Images from the original note were not included. Subjective Mohan Gonzalez is a 64 y.o. male who has hypertension, AUD, DEBORAH, and recurrent falls, and patient presents for follow up of chronic conditions. Background: Our last encounter was 06/25/2024. I had not seen the patient for almost 1 year. Significant changesin his life. He underwent left nephrectomy for renal cell cancer in November 2023. He had several ED visits and hospitalizations. He had just been discharged from the hospital for non-healing surgical site from the nephrectomy. Therefore, we called his urology office and scheduled an urgent visit on 07/09/24. Interval history: Seen by his micropaleontologist, Dr. Claudio in Jun 2024. Reviewed annual transthoracic echocardiogram. Result as following: Patient was seen in [facility] on 08/17/24 for acute on chronic diarrhea, weakness, and incontinence. Patient was transferred to [facility] ED for further evaluation and treatment. MRI showed no epidural abscess. Patient was placed on CIWA protocal for alcohol withdrawal symptoms. POLLY was treated with IVF. Incidental finding of thrombocytopenia. 1 out of 2 blood culture bottles grew GPC, but likely contamin ant so vancomycin was discontinued. Discharged on 08/24/24 with a new prescription of thiamine. Seen by Dr. Mendoza for AUD on 09/11/24. Patient spent 1 week at [facility]. Did not stay for CSS. Discharged on 09/10/24. Seen in the walk-in clinic on 09/11/24 for left shoulder pain. Referred to ortho. Rx lidocaine. XR was normal. Attended recovery support group on 09/14/24. Seen by Dr. Peters on 09/23/24 for anemia. Receiving B12. Seen in [facility] on 10/06/24 for left hand / thumb / elbow pain after a fall. X- rays showed no fracture. Dx contusion. He was supposed to have appointment with Dr. Sow on 09/19/24. The office is faxing us the visit note. Today: Pt reports he fell on the ice and hurt his hand/wrist while walking his dogs on Saturday. He sprained his hand between his thumb and wrist. Pt has been taking Tylenol for his wrist pain, because his Kidneys should not have anything stronger, so the did not recommend Ibuprofen. He states he???s unable to sleep because of the pain. His wrist is swollen, but his bones did not break. Pt reports his next appointment with Dr. Sow is on the . Pt notes Dr. Sow looked at his wound and advised to allow it to heal on its own. Pt has a nurse from [place] go to his home and applya patch over it. The nurse stated there???s a small spot with drainage, but Dr. Sow states it???snot as severe as before. Pt also has an appointment with Dr. Sow in January. Pt had a visit with Dr. Mendoza and he received pills to help with his drinking. Pt has been going to when possible. Pt damaged his glasses and he has an appointment in December to receive his prescription. Pt also saw Dr. Queen, and states he needs to remove a bad tooth. Pt???s next appointment with Dr. Claudio is in December. He reports he had an echocardiogram done and they stated he looks the same he looked 3 years ago. They will be checking on him every 6 months to a year from now on. Pt reports for the past 3 days he has had diarrhea and has been vomiting. He notes the only thing he can keep in his stomach is Ice tea. He hasn???t taken any medication during this time because he doesn???t want to waste them. He last had diarrhea this morning. On January 19 2025 the pt has an appointment with his Electronic Transaction Implementer. Pt received his shot at Dr. Peters and will see them again on October 21. Pt also has an appointment with Dr. Kennedy on the 23 of October. Pt doesn't use a sleep ap machine often because he can???t sleep and doesn???t want to run the machine if he isn???t asleep. Pt notes he takes care of his mother 13 hours a day and she was only offered 4 hours a week for a PATIENT REGISTRATION SPECIALIST. Review of Systems Constitutional: Negative for activity change, appetite change and fever. Respiratory: Negative for shortness of breath. Cardiovascular: Negative for chest pain. Objective Vitals: 10/08/24 1133 BP: (!) 166/95 Pulse: 91 Resp: 20 Temp: 96.2 ??F (35.7 ??C) TempSrc: Temporal Weight: 221 lb 12.8 oz (101 kg) Physical Exam Constitutional: General: He is not in acute distress. Appearance: Normal appearance. He is not ill-appearing. HENT: Head: Normocephalic and atraumatic. Mouth/Throat: Mouth: Mucous membranes are moist. Eyes: Extraocular Movements: Extraocular movements intact. Pupils: Pupils are equal, round, and reactive to light. Cardiovascular: Rate and Rhythm: Normal rate and regular rhythm. Heart sounds: No murmur heard. Pulmonary: Effort: Pulmonary effort is normal. No respiratory distress. Breath sounds: Normal breath sounds. No wheezing or rhonchi. Musculoskeletal: Left wrist: Swelling present. Decreased range of motion. Skin: General: Skin is warm. Neurological: Mental Status: He is alert. Mental status is at baseline. Psychiatric: Mood and Affect: Mood normal. Results: Lab Results Component Value Date NA 142 08/17/2024 K 4.8 08/17/2024 CL 104 08/17/2024 CO2 19 (L) 08/17/2024 BUN 18 (H) 08/17/2024 CREATININE 1.08 08/17/2024 CRCLCALCPH 79.1 08/17/2024 EGFR >60 08/17/2024 GLUCOSE 90 08/17/2024 TOTALBILIRUB 2.2 (H) 07/02/2024 AST 40 (H) 07/02/2024 ALT 11 07/02/2024 TOTPROTEIN 7.5 07/02/2024 ALB 3.9 07/02/2024 ALP 124 (H) 07/02/2024 Lab Results Component Value Date TRIG 83 07/02/2024 CHOL 150 07/02/2024 LDLCHOLCAL 68 07/02/2024 HDL 66 07/02/2024 Lab Results Component Value Date HGBA1C 4.2 07/02/2024 MICROALBUR 31.0 11/05/2022 CREATUR 382.47 11/05/2022 MICROALBCREU 8.1 11/05/2022 Lab Results Component Value Date WBC 6.4 08/17/2024 HGB 11.0 (L) 08/17/2024 HCT 32.9 (L) 08/17/2024 PLT 49 (L) 08/17/2024 MCV 90.9 08/17/2024 The 10-year ASCVD risk score (Maranda RAMÍREZ, et al., 2019) is: 13.3% Values used to calculate the score: Age: 64 years Sex: Male Is Non- : No Diabetic: No Tobacco smoker: No Systolic Blood Pressure: 166 mmHg Is BP treated: Yes HDL Cholesterol: 66 mg/dL Total Cholesterol: 150 mg/dL FIB-4 Calculation: 6.49 at 07/02/2024 11:24 AM Calculated from: SGOT/AST: 40 U/L at 07/02/2024 11:24 AM SGPT/ALT: 11 U/L at 07/02/2024 11:24 AM Platelets: 117 X10*3/uL at 07/02/2024 11:24 AM Age: 64 years Screening and Health Care Maintenance: PHQ-2/9 Score: Patient Health Questionnaire-9 Score: 0 (06/25/2024 11:09 AM) Patient Health Questionnaire-2 Score: 0 (06/25/2024 11:09 AM) Thoughts that you would be better off or hurting yourself in some way: Not at all (06/25/2024 11:09 AM) MILO-7 Score: No data recorded Health Maintenance Due Topic Date Due HIV Screening Never done RSV Patients and Patients Aged 60 years or older (1 - Risk 60-74 years 1-dose series) Never done Hepatitis B Vaccines (2 of 3 - Risk 3-dose series) 07/23/2024 Hepatitis A Vaccines (2 of 2 - Risk 2-dose series) 12/23/2024 SDOH Screening 12/25/2024 Assessment/Plan Problem List Items Addressed This Visit Alcohol use disorder -He had at least 5 significant falls since Jul 2022. Although falls are described as mechanical falls, he was under the influence of alcohol for all occasions -10/02/22 BAL 199 mg/dl -He had subdural hematoma -Section 35 was attempted; but pt was deemed not an imminent danger to himself - previously following with Dr. Mendoza for AUD - no longer on naltrexone Anemia Aneurysm of ascending aorta (CMS/HCC) -Most recent echo on 04/12/21, EF 60-65%, dilated ascending aorta 41mm -Echo on 04/05/20, EF 55-60%, dilated ascending aorta 42 mm, -Echo on 04/01/19 EF 60-65%, Aortic root dimension 37~43mm -Echo on 06/23/24 EF 60-65%, Ascending aortic aorta 41 mm. -Seen by his micropaleontologist, Dr. Claudio in Jun 2024 -Continue surveillance transthoracic echocardiogram -Work on risk factor management Essential hypertension - Goal BP <140/90 per JNC-8, < [...] 25 mg daily which was discontinued by automatic fabric cutter - Improve CPAP adherence Tx history - Amlodipine was discontinued due to LE edema and furosemide was switched to torsemide by his micropaleontologist. - Lisinopril was discontinued when he had POLLY, but restarted after his renal function recovered - Lisinopril and torsemide were held during recent hospitalization. Resumed upon discharge. - Lisinopril was changed to losartan in Jul 2023. -Follow up in 3 mo or sooner if any problem arises Obesity Obstructive sleep apnea syndrome -Improve adherence to CPAP -Consider referring back to sleep medicine clinic Metabolic dysfunction-associated steatotic liver disease and increased alcohol intake (MetALD) - Last liver test: 07/02/24 - Last US / elastography -> ordered - Last imaging: CT in Jul 2024 showed splenomegaly, hepatomegaly, and diffuse fatty liver - FIB4 index 6.49, cirrhosis - GI: Upcoming appointment with Dr. Lenz - continue working on lifestyle modifications - continue surveillance study Chronic liver disease -multifactorial: Excessive alcohol intake; obesity -recent abdominal CT showed splenomegaly and fatty liver -recent lab shows thrombocytopenia -continue working on risk factor management -upcoming appointment with Dandy Lenz Stage 2 chronic kidney disease -Sped Teacher: [facility]. Dr. Kennedy -Hx rhabdomyolysis, on hemodialysis for 1 month in November 2017 - December 2017 -His renal funciton was CKDII level [id number] -Most recent POLLY in Sep 2022, both admission, held lisinopril, spironolactone, and torsemide [id number] admission, and resumed upon discharge -Last lab: 01/28/23 Sodium 135; Potassium 3.6 ; Chloride 99 ; Bicarb 24 ; Calcium 8.0; BUN 19 , Creatinine 1.02 ; EGFR 84 -Avoid nephrotoxic drugs -Continue renal dosing Other dietary vitamin B12 deficiency anemia -likely nutritional and excessive alcohol consumption -continue vitamin supplementation -currently receiving B12 IM from his wet char conveyor tender, Dr. Peters Anemia of chronic disease - Both Iron and Vitamin-B12 deficiency, and anemia of chronic diseaes - followed by wet char conveyor tender, Dr. Peters Dyslipidemia - current medication: rosuvastatin 5 mg at bedtime - last lipid profile: 01/28/23 - continue working on lifestyle modficiation Renal cell cancer, left (CMS/HCC) -09/21/[address] showed 2.3 cm lesion on the upper pole of left kidney; MRI was recommended -MRI 12/27/22 showed a lesion suspicious for renal cell carcinoma -s/p left nephrectomy on 12/17/23 Left hand pain - Primary - Continue judicious use of APAP - Ordered CT Wrist w/o Contrast Left 10/08/24 - Ordered Referral to Orthopaedic Surgery 10/08/[address] Wrist w/o Contrast Left Referral to Orthopaedic Surgery Other Visit Diagnoses Dietary counseling Exercise counseling Chronic pain of left thumb - Ordered CT Wrist w/o Contrast Left 10/08/24 - Ordered Referral to Orthopaedic Surgery 10/08/[address] Wrist w/o Contrast Left Referral to Orthopaedic Surgery Acute pain of left wrist - Ordered CT Wrist w/o Contrast Left 10/08/24 - Ordered Referral to Orthopaedic Surgery 10/08/[address] Wrist w/o Contrast Left Referral to Orthopaedic Surgery Caregiver stress Relevant Orders Referral to Behavioral Health Allergies Allergen Reactions Azithromycin Swelling Hydrochlorothiazide Swelling Statins Other reaction(s): Elevated CPK Current Outpatient Medications Medication Instructions acetaminophen (Tylenol) 325 MG tablet 2 tablets, Oral, Every 4 hours PRN allopurinol (Zyloprim) 300 MG tablet TAKE 1 TABLET BY MOUTH EVERY MORNING Ascorbic Acid (vitamin C) 500 MG tablet TAKE 1 TABLET BY MOUTH TWICE A DAY Emollient (Eucerin Advanced Repair) cream 4 g, Apply externally, 2 times daily ferrous sulfate 324 mg, Oral, 2 times daily with meals folic acid (FOLVITE) 1 mg, Oral, Daily hydrocortisone 1 % cream Apply topically to affected area once or twice daily Lidocaine 5 % cream Apply topically bid magnesium oxide (Mag-Ox) 400 MG tablet TAKE 1 TABLET BY MOUTH tid metoprolol succinate XL (Toprol-XL) 25 MG 24 hr tablet 1 tablet, Oral, Daily, Do not crush or chew. Multiple Vitamins-Minerals (multivitamin with minerals) tablet 1 tablet, Daily naltrexone (DEPADE) 50 mg, Oral, Daily omeprazole (PriLOSEC) [address] capsule TAKE 1 CAPSULE BY MOUTH EVERY DAY AT 630 IN THE MORNING FOR 28 DAYS rosuvastatin (Crestor) 5 MG tablet TAKE 1 TABLET BY MOUTH AT BEDTIME Follow-up: 13 weeks or sooner if any problem arises. Scribe Attestation: IShanae, am serving as a scribe to document services personally performed by Samantha Gonzales MD, based on the patient's response to questions by provider and provides statements to me. documented in this encounter Miscellaneous Notes * Assessment & Plan Note - Samantha Gonzales MD - 10/14/2024 5:11 PM ESTAssociated Problem(s): Metabolic dysfunction-associated steatotic liver disease and increased alcohol intake (MetALD) - Last liver test: 07/02/24 - Last US / elastography -> ordered - Last imaging: CT in Jul 2024 showed splenomegaly, hepatomegaly, and diffuse fatty liver - FIB4 index 6.49, cirrhosis - GI: Upcoming appointment with Dr. Lenz - continue working on lifestyle modifications - continue surveillance study * Assessment & Plan Note - Shanae Hoffman MA - 10/09/2024 1:04 AM ESTAssociated Problem(s): Left hand pain - Continue judicious use of APAP - Ordered CT Wrist w/o Contrast Left 10/08/24 - Ordered Referral to Orthopaedic Surgery 10/08/24 * Assessment & Plan Note - Shanae Hoffman MA - 10/09/2024 1:03 AM ESTAssociated Problem(s): Other dietary vitamin B12 deficiency anemia -likely nutritional and excessive alcohol consumption -continue vitamin supplementation -currently receiving B12 IM from his wet char conveyor tender, Dr. Peters * Assessment & Plan Note - Shanae Hoffman MA - 10/09/2024 1:03 AM ESTAssociated Problem(s): Anemia of chronic disease - Both Iron and Vitamin-B12 deficiency, and anemia of chronic diseaes - followed by wet char conveyor tender, Dr. Peters * Assessment & Plan Note - Shanae Hoffman MA - 10/09/2024 1:02 AM ESTAssociated Problem(s): Alcohol use disorder -He had at least 5 significant falls since Jul 2022. Although falls are described as mechanical falls, he was under the influence of alcohol for all occasions -10/02/22 BAL 199 mg/dl -He had subdural hematoma -Section 35 was attempted; but pt was deemed not an imminent danger to himself - previously following with Dr. Mendoza for AUD - no longer on naltrexone * Assessment & Plan Note - Shanae Hoffman MA - 10/09/2024 1:02 AM ESTAssociated Problem(s): Dyslipidemia - current medication: rosuvastatin 5 mg at bedtime - last lipid profile: 01/28/23 - continue working on lifestyle modficiation * Assessment & Plan Note - Shanae Hoffman MA - 10/09/2024 1:01 AM ESTAssociated Problem(s): Renal cell cancer, left (CMS/HCC) -09/21/[address] showed 2.3 cm lesion on the upper pole of left kidney; MRI was recommended -MRI 12/27/22 showed a lesion suspicious for renal cell carcinoma -s/p left nephrectomy on 12/17/23 * Assessment & Plan Note - Shanae Hoffman MA - 10/09/2024 1:01 AM ESTAssociated Problem(s): Stage 2 chronic kidney disease -Sped Teacher: [facility]. Dr. Kennedy -Hx rhabdomyolysis, on hemodialysis for 1 month in November 2017 - December 2017 -His renal funciton was CKDII level [id number] -Most recent POLLY in Sep 2022, both admission, held lisinopril, spironolactone, and torsemide [id number] admission, and resumed upon discharge -Last lab: 01/28/23 Sodium 135; Potassium 3.6 ; Chloride 99 ; Bicarb 24 ; Calcium 8.0; BUN 19 , Creatinine 1.02 ; EGFR 84 -Avoid nephrotoxic drugs -Continue renal dosing * Assessment & Plan Note - Shanae Hoffman MA - 10/09/2024 1:01 AM ESTAssociated Problem(s): Chronic liver disease -multifactorial: Excessive alcohol intake; obesity -recent abdominal CT showed splenomegaly and fatty liver -recent lab shows thrombocytopenia -continue working on risk factor management -upcoming appointment with Dandy Lenz * Assessment & Plan Note - Shanae Hoffman MA - 10/09/2024 1:00 AM ESTAssociated Problem(s): Essential hypertension - Goal BP <140/90 per JNC-8, < [...] 25 mg daily which was discontinued by automatic fabric cutter - Improve CPAP adherence Tx history - Amlodipine was discontinued due to LE edema and furosemide was switched to torsemide by his micropaleontologist. - Lisinopril was discontinued when he had POLLY, but restarted after his renal function recovered - Lisinopril and torsemide were held during recent hospitalization. Resumed upon discharge. - Lisinopril was changed to losartan in Jul 2023. -Follow up in 3 mo or sooner if any problem arises * Assessment & Plan Note - Shanae Hoffman MA - 10/09/2024 1:00 AM ESTAssociated Problem(s): Aneurysm of ascending aorta (CMS/HCC) -Most recent echo on 04/12/21, EF 60-65%, dilated ascending aorta 41mm -Echo on 04/05/20, EF 55-60%, dilated ascending aorta 42 mm, -Echo on 04/01/19 EF 60-65%, Aortic root dimension 37~43mm -Echo on 06/23/24 EF 60-65%, Ascending aortic aorta 41 mm. -Seen by his micropaleontologist, Dr. Claudio in Jun 2024 -Continue surveillance transthoracic echocardiogram -Work on risk factor management * Assessment & Plan Note - Shanae Hoffman MA - 10/09/2024 1:00 AM ESTAssociated Problem(s): Obstructive sleep apnea syndrome -Improve adherence to CPAP -Consider referring back to sleep medicine clinic documented in this encounter Plan of Treatment Upcoming Encounters Date Type Department Care Team (Late st Contact Info) Description 01/01/2025 10:30 AM EDT Office Visit [facility] [address] [place] [address] Issac, [place], OD [address] [place] [address] Scheduled Orders Name Type Priority Associated Diagnoses Orde r Schedule CT Wrist w/o Contrast Left Imaging Routine Left hand pain Chronic pain of left thumb Acute pain of left wrist Expected: 10/08/2024, Expires: 10/08/2025 Scheduled Referrals Name Type Priority Associated Diagnoses Order Schedule Referral to Orthopaedic Surgery Outpatient Referral Routine Left hand pain Chronic pain of left thumb Acute pain of left wrist Expected: 10/08/2024 (Approximate), Expires: 10/08/2025 Referral to Behavioral Health Outpatient Referral Urgent Caregiver stress Expected: 10/14/2024 (Approximate), Expires: 10/14/2025 documented as of this encounter Visit Diagnoses Diagnosis Left hand pain- Primary Pain in soft tissues of limb Dietary counseling Dietary surveillance and counseling Exercise counseling Class 2 severe obesity due to excess calories with serious comorbidity and body mass index (BMI) of 36.0 to 36.9 in adult (CMS/HCC) Chronic pain of left thumb Acute pain of left wrist Essential hypertension Unspecified essential hypertension Aneurysm of ascending aorta without rupture (CMS/HCC) Renal cell cancer, left (CMS/HCC) Stage 2 chronic kidney disease Obstructive sleep apnea syndrome Obstructive sleep apnea (adult) (pediatric) Anemia of chronic disease Anemia of other chronic disease Other dietary vitamin B12 deficiency anemia Dyslipidemia Other and unspecified hyperlipidemia Alcohol use disorder Chronic liver disease Unspecified chronic liver disease without mention of alcohol Caregiver stress Metabolic dysfunction-associated steatotic liver disease and increased alcohol intake (MetALD) Iron deficiency anemia, unspecified iron deficiency anemia type documented in this encounter Additional Health Concerns Assessment Noted Time PHQ-9 Depression Total Score: 0 11/07/20 24 11:09 AM EST documented as of this encounter Care Teams Bit Sander Relationship Specialty Start Date End Date Samantha Gonzales MD [address] [place] [id number] PCP - General Family Medicine 07/09/13 [facility] 05/17/24 documented as of this encounter
--- NOTE | 2024-10-16 06:49 | MHC.EDTECH ---
Patient was brought by EMS. Patient was covered in feces. Patient's clothes were complete soiled. Pants and underwear were cut and we provided a bed bath . Soiled clothes in a bag behind patient's bed.
--- NOTE | 2024-10-16 06:52 | ED.GENADULT ---
HPI - General Adult General Chief complaint: General Medical Stated complaint: unable to ambulate R leg, Pain and ETOH Time Seen by Provider: 10/16/24 06:52 History of Present Illness ED Provider: Josué REGALADO narrative: the patient is a 64-year-old male who lives at home with his mother. Apparently he lives in the basement. His mother lives upstairs. 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 He has a regular fairly heavy drinker. the patient was brought to the hospital today because he was having trouble walking. He says that he has fallen a couple of times in the last week or 2 and injured his legs. His maximal pain is in the region of his right hip. He did not hit his head at any time. He says that he fell asleep around 20:00 last night and when he woke up he could not get up from his chair because of pain in his right hip, his right knee, and in both his ankles. An ambulance was called. Paramedics found him with swelling of his stool any urine. He has a lot of chronic changes to the skin of his legs. He says he has had a lot of worsening swelling Related Data Home Medications ?Medication ?Instructions ?Recorded ?Confirmed metoprolol succinate 50 mg 50 mg PO DAILY 10/30/22 10/16/24 tablet,extended release 24 hr rosuvastatin 5 mg tablet 5 mg PO BEDTIME 08/26/23 10/16/24 cyanocobalamin (vitamin B-12) 1,000 mcg IM Q30D 02/05/24 10/16/24 1,000 mcg/mL injection solution allopurinol 300 mg tablet 300 mg PO DAILY 07/29/24 10/16/24 ascorbate calcium (vitamin C) 500 500 mg PO BID 07/29/24 10/16/24 mg tablet calcium 250 mg (as 1 tab PO TID 10/16/24 10/16/24 carbonate)-vitamin D3 3.125 mcg (125 unit) tablet (Oyster Shell Calcium-Vitamin D3) cholecalciferol (vitamin D3) 50 50 mcg PO DAILY 10/16/24 10/16/24 mcg (2,000 unit) tablet (Vitamin D3) ferrous sulfate 325 mg (65 mg 325 mg PO DAILY 10/16/24 10/16/24 iron) tablet,delayed release lidocaine 5 % topical cream 1 appl topical BID 10/16/24 10/16/24 mineral oil-hydrophil petrolat 1 appl topical BID 10/16/24 10/16/24 topical ointment (petrolatum topical ointment) aibuxkzcyapn-[id number] 1 tab PO DAILY 10/16/24 10/16/24 fumarate 7.5 mg-folic acid 400 mcg tablet naltrexone 50 mg tablet 50 mg PO DAILY 10/16/24 10/16/24 omeprazole 20 mg capsule,delayed 20 mg PO DAILY 10/16/24 10/16/24 release pyridoxine (vitamin B6) 50 mg 50 mg PO DAILY 10/16/24 10/16/24 tablet (Vitamin B-6) thiamine HCl (vitamin B1) 100 mg 100 mg PO DAILY 10/16/24 10/16/24 tablet (Vitamin B-1) Previous Rx's ?Medication ?Instructions ?Recorded magnesium oxide 400 mg (241.3 mg 400 mg PO DAILY #10 tabs 04/25/23 magnesium) tablet folic acid 1 mg tablet 1 mg PO DAILY #30 tabs 10/01/23 Allergies Allergy/AdvReac Type Severity Reaction Status Date / Time azithromycin [AZITHROMYCIN] Allergy Severe FACIAL Verified 10/16/24 03:23 SWELLING hydrochlorothiazide [HCTZ] Allergy Severe Facial Verified 10/16/24 03:23 Swelling Review of Systems Review of Systems: Yes all other systems are reviewed and are negative [facility] Past Medical History Medical History Abdominal wall abscess at site of surgical wound CKD stage 3a, GFR 45-59 ml/min Colitis Renal mass Renal cell carcinoma Alcohol use disorder Hyperlipidemia Ascending aortic aneurysm Alcoholic steatohepatitis Seborrheic dermatitis DEBORAH (obstructive sleep apnea) History of rhabdomyolysis Hx of lower gastrointestinal bleeding Hx of sepsis History of DVT of lower extremity Chronic ulcer of leg Chronic venous stasis HTN (hypertension) Anemia Anemia Surgical History H/O partial nephrectomy Hx of colonoscopy Family History Family History Mother Dementia Maternal Grandmother Dementia Social History Social History Household Members: Family Housing: House Housing Other:: 4 stairs to get into house. Pt lives in basement Do you presently have visiting nurse or other home services: No Alcohol intake: current Alcohol intake frequency: 3 or more drinks per day Alcohol type: hard liquor Comment: pt refused socks Patient Tobacco Use Status: Never used Tobacco Smoked in Last 30 Days: No Use of substances other than those prescribed or required for medical reasons: No Currently Displaying Signs/Symptoms of Drug Intoxication Withdrawal: No Have you been hit, kicked, punched, or otherwise hurt by someone within the past year? If so, by whom?: No Do you feel safe in your current relationship?: Yes Is there a partner from a previous relationship who is making you feel unsafe now?: No Are you made to feel afraid or neglected: No Advance Directives: Yes Advance Directives on File: Yes Advance Directives Date on File: 04/13/22 Do you have a plan to hurt others: No Plan Recently lost weight without trying: No Eating poorly because of decreased appetite: No service: No Current occupational status: disabled Physical Exam ED Vital Signs: Vital Signs - 24 hr 10/16/24 03:18 10/16/24 06:00 10/16/24 12:01 Temperature 98.1 F 98.5 F 98.3 F Pulse Rate 91 71 80 Respiratory Rate 20 16 18 Blood Pressure 168/75 H 159/74 H 160/82 H Pulse Oximetry 100 96 98 Oxygen Delivery Method Room Air Room Air Room Air 10/16/24 14:10 10/16/24 14:19 Temperature 99.9 F Pulse Rate 80 102 H Respiratory Rate 22 H Blood Pressure 160/82 H 151/81 H Pulse Oximetry 98 Oxygen Delivery Method BMI result Body Mass Index 34.8 Const Other: The patient is a 64-year-old male who was lying on the hospital stretcher with his eyes closed. He looked quite chronically ill. He has a lot of chronic swelling and chronic skin changes to his lower extremities. He seemed to prefer having his eyes closed and was not very interactive but he does not seem in overt distress. HENMT Other: Face is symmetrical. Mucous membranes moist. Eyes General: appearance normal, both eyes and all related structures Neck Neck: Yes full ROM and Yes no JVD Resp Effort & Inspection: normal respiratory effort Auscultation: clear to auscultation bilaterally Cardio Rate: regular rate Rhythm: regular rhythm Heart sounds: S1 normal heart sound present and S2 normal heart sound present GI Other: Abdomen is soft and nontender Skin Other: the patient has a lot of peripheral edema to both lower legs generally. He has a lot of chronic skin changes to the lower legs associated with his edema. Has some areas of skin breakdown that I believe are related to his wearing socks with such swollen legs. Neuro Other: The patient was lying on the stretcher with the eyes closed but he answered questions appropriately. He seemed intoxicated. No obvious cranial nerve deficit. He was able to move his extremities but has pain moving his legs. Extrem Other: The patient has a great deal of edema to both lower legs. This edema seems largely chronic. He has a lot of chronic skin changes. He has pain with manipulation of the legs at multiple joints. Medications Administered Generic Name Dose Route Start Last Admin Trade Name Ivanq PRN Reason Stop Dose Admin Allopurinol 300 mg 10/17/24 09:00 10/17/24 09:49 Allopurinol 300 Mg Tablet PO 300 mg DAILY [facility] Administration Ascorbic Acid 500 mg 10/16/24 21:00 10/17/24 20:49 Ascorbic Acid 500 Mg Tablet PO 500 mg BID [facility] Administration Atorvastatin Calcium 10 mg 10/16/24 21:00 10/17/24 20:49 Atorvastatin Calcium 10 Mg Tablet PO 10 mg BEDTIME [facility] Administration Calcium Carbonate/Cholecalciferol 250 mg 10/16/24 21:00 10/17/24 20:49 Calcium + Vitamin D 250 Mg Tablet PO 250 mg TID PROM[facility] Administration Cyanocobalamin 1,000 mcg 10/16/24 16:15 10/16/24 17:01 Cyanocobalamin (Vitamin B-12) 1,000 Mcg/Ml Vial IM Not Given Q30D [facility] Enoxaparin Sodium 40 mg 10/16/24 16:15 10/17/24 16:36 Enoxaparin Sodium 40 Mg/0.4 Ml Syringe SUBCUT 40 mg Q24H [facility] Administration Ferrous Sulfate 324 mg 10/17/24 09:00 10/17/24 09:51 Ferrous Sulfate 324 Mg Tablet. PO 324 mg DAILY [facility] Administration Folic Acid 1 mg 10/16/24 16:20 10/17/24 09:50 Folic Acid 1 Mg Tablet PO 1 mg DAILY [facility] Administration Lactic Acid 1 appl 10/16/24 21:00 10/18/24 02:50 Ammonium Lactate 12 % Lotion 226 Gm Bottle TOPICAL Not Given BID [facility] Protocol Magnesium Oxide 400 mg 10/17/24 09:00 10/17/24 09:50 Magnesium Oxide 400 Mg Tablet PO 400 mg DAILY [facility] Administration Metoprolol Succinate 50 mg 10/16/24 16:20 10/17/24 09:50 Metoprolol Succinate Er 50 Mg Tab.Er.24h PO 50 mg DAILY [facility] Administration Protocol Multi-Ingred Cream/Lotion/Oil/Oint 1 appl 10/16/24 21:00 10/17/24 20:50 Mineral Oil/Petrolatum,White 106 Gm Tube TOPICAL 1 appl BID [facility] Administration Multivitamins/Vitamin C 1 tab 10/17/24 09:00 10/17/24 09:50 Multivitamin Tablet PO 1 tab DAILY [facility] Administration Naltrexone HCl 50 mg 10/17/24 09:00 10/17/24 09:50 Naltrexone Hcl 50 Mg Tablet PO 50 mg DAILY [facility] Administration Omeprazole 20 mg 10/16/24 16:20 10/17/24 09:50 Omeprazole 20 Mg Capsule.Dr PO 20 mg DAILY [facility] Administration Phenobarbital 45 mg 10/17/24 09:00 10/17/24 20:49 Phenobarbital 15 Mg Tablet PO 10/18/24 21:01 45 mg BID PROM[facility] Administration Pyridoxine HCl 50 mg 10/16/24 16:20 10/17/24 09:50 Pyridoxine Hcl (Vitamin B6) 50 Mg Tablet PO 50 mg DAILY [facility] Administration Sodium Chloride 3 ml 10/17/24 00:00 10/18/24 02:50 0.9 % Sodium Chloride Flush 3 Ml Syringe IVFLUSH Not Given QSHIFT [facility] Thiamine HCl 100 mg 10/16/24 16:20 10/17/24 09:50 Thiamine Hcl 100 Mg Tablet PO 100 mg DAILY [facility] Administration Vitamin D 50 mcg 10/17/24 09:00 10/17/24 09:50 Cholecalciferol (Vitamin D3) 25 Mcg Tablet PO 50 mcg DAILY [facility] Administration Discontinued Medications Generic Name Dose Route Start Last Admin Trade Name Freq PRN Reason Stop Dose Admin Loperamide HCl 2 mg 10/16/24 22:40 10/16/24 23:12 Loperamide Hcl 2 Mg Capsule PO 10/16/24 22:41 2 mg ONCE ONE Administration Phenobarbital Sodium 317 mg 10/16/24 15:15 10/16/24 15:29 Phenobarbital Sodium 130 Mg/Ml Im Once IM 10/16/24 15:16 317 mg ONCE ONE Administration Phenobarbital Sodium 238 mg 10/16/24 18:15 10/16/24 22:43 Phenobarbital Sodium 130 Mg/Ml Vial Im Q3hx2 IM 10/16/24 21:16 238 mg Q3H [facility]OM[facility] Administration Medical Decision Making Medical Decision Making [facility] Narrative: The patient is a 64-year-old male who was a chronic alcoholic. He lives at home and I believe he helps take care of his elderly mother. He describes having had what sounds like minor falls recently where he has sustained some injuries to his legs although he does not really describe falls that sound likely had a lot of impact. He is complaining of pain in his right hip in his right knee and also both ankles and feet. His alcohol level was 277. He seems quite deconditioned and I suspect he has a chronic alcoholic. X-rays of the right hip and pelvis are unremarkable. Also the right knee. No definite acute fractures to the ankles or feet. The patient was observed for several hours in the emergency room during which time he seemed to develop alcohol withdrawal symptoms. he became quite tremulous and developed tachycardia and elevated blood pressures. He will be started on the phenobarbital protocol and admitted to the hospitalist service. Lab Data 10/17/24 06:15 10/17/24 06:15 Labs: Lab Results 10/16/24 10/16/24 Range/Units 04:05 14:27 WBC 10.8 (4.8-10.8) X10*3/uL RBC 3.39 L (4.60-5.80) X10*6/uL Hgb 9.5 L (14.0-18.0) g/dl Hct 28.6 L (42.0-52.0) % MCV 84.4 (80.0-98.0) fL MCH 28.0 (27.0-33.0) pg MCHC 33.2 (31.0-36.0) g/dl RDW 16.3 H (11.0-16.0) % Plt Count 235 D (160-400) X10*3/uL MPV 7.9 L (9.4-12.4) fL Immature Gran % (Auto) 0.3 (0.0-0.4) % Neut % (Auto) 61.6 (45-73) % Lymph % (Auto) 28.7 (20-40) % Gregg % (Auto) 6.8 (2-11) % Eos % (Auto) 1.5 (0-4) % Baso % (Auto) 1.1 (0-2) % Lymph # (Auto) 3.1 (1.2-4.9) X10*3/uL Gregg # (Auto) 0.7 (0.1-1.2) X10*3/uL Eos # (Auto) 0.2 (0.0-0.4) X10*3/uL Baso # (Auto) 0.1 (0.0-0.2) X10*3/uL Abs Immat Gran (auto) 0.03 (0.00-0.03) X10*3/uL Absolute Neuts (auto) 6.7 (2.0-8.3) x10*3/uL Absolute Nucleated RBC 0.000 (0.0-0.012) X10*3/uL Nucleated RBC % (auto) 0.0 (0.0-0.2) /100WBC Sodium 139 (135-145) mmol/L Potassium 4.1 (3.3-5.1) mmol/L Chloride 105 (96-108) mmol/L Carbon Dioxide 22 (22-29) mmol/L Anion Gap 16 (12-20) BUN 15 (9-16) mg/dL Creatinine 0.89 (0.5-1.4) mg/dL Estim Creat Clear Calc 96.0 Estimated GFR > 60 Random Glucose 104 (60-115) mg/dL Calcium 8.8 (8.4-10.2) mg/dL Magnesium 1.6 (1.6-2.6) mg/dL Total Bilirubin 0.5 (0.0-1.0) mg/dL AST 23 (5-37) U/L ALT < 6 (0-40) U/L Alkaline Phosphatase 161 H (39-117) U/L Troponin I High Sens < 2.7 (<3.5-35.0) ng/L Total Protein 8.1 H (6.5-8.0) g/dL Albumin 3.4 L (3.5-5.0) g/dL Ethyl Alcohol 277 mg/dL Influenza Type A (PCR) NEGATIVE (Negative) Influenza Type B (PCR) NEGATIVE (Negative) RSV RNA Qual (PCR) NEGATIVE (Negative) SARS-CoV-2 RNA (RT-PCR) NEGATIVE (Negative) Discharge Plan Discharge Clinical Impression: Alcohol withdrawal, Bilateral leg pain, Edema of both lower legs Patient Disposition: Admitted As Inpatient Interventions: Admission Worksheet (ED) Last Done: 10/16/24 19:41 Discharge Date/Time: 10/16/24 20:24
--- NOTE | 2024-10-16 07:35 | ECG_ITS ---
Test Reason : weakness Blood Pressure : */* mmHG Vent. Rate : 100 BPM Atrial Rate : 100 BPM P-R Int : 202 ms QRS Dur : 114 ms QT Int : 378 ms P-R-T Axes : 33 -49 115 degrees QTcB Int : 487 ms Normal sinus rhythm Left anterior fascicular block T wave abnormality, consider anterolateral ischemia Abnormal ECG When compared with ECG of 17-Aug-2024 17:21, T wave inversion more evident in Anterior leads Referred By: Ike Moses Electronically Signed By: Mike Nguyen
--- NOTE | 2024-10-16 08:29 | MHC.EDTECH ---
pt soiled in xray, pt was changed, bed disinfected, provided clean linens, when returning from xray [place] cath will be placed
[2024-10-16 12:22] LABS: Troponin-I High Sensitivity < 2.7 ng/L (<3.5-35.0)
--- NOTE | 2024-10-16 14:21 | PC.NURSE ---
Patient declined lunch, but drank small sips of water. Patient noted to be tremulous with mild amount of perspiration on face. Patient acknowledged feeling like he was in withdrawal. Provider aware and came to bedside. Vitals obtained. Attempted to completed med rec with patient- patient stating that he doesnt know what he takes and because of the colitis he does not always take his meds
[2024-10-16 15:10] LABS: Influenza A PCR NEGATIVE (Negative); Influenza B PCR NEGATIVE (Negative); Resp Syncy Virus RNA Qual PCR NEGATIVE (Negative); SARS COV2 PCR INHOUSE NEGATIVE (Negative)
[2024-10-16] MEDS: PHENobarbitaL sodium 130 MG/ML IM ONCE 317 MG IM (15:29)
--- NOTE | 2024-10-16 15:53 | PM.IMHP ---
History of Present Illness Date of Service: 10/16/24 Attending physician on admission: Devon Santillan Chief Complaint: Right hip pain Pt is a 64-year-old male with a PMH significant for?HTN, HLD, anemia, chronic venous stasis dermatitis, alcohol use disorder, hx of DVT no longer on anticoagulation, hx of leg edema s/p venous ablation in 1998, hx of left renal cancer s/p partial nephrectomy in 2023, CKD 3, and gout who presents to the ED with for evaluation of lower extremity weakness and inability to ambulate. Pt reports he fell asleep in his recliner yesterday evening at around 20:00 and when he awoke early this morning he found that he could not move his legs or get out of his chair. Reports normally ambulates with a walker at baseline. Pt also complains of right hip pain secondary to slipping on ice last week without fall. Pt reports that he drinks ?a few? drinks daily ?just to get rid of the shakes? which usually began sometime during early afternoon. Pt noted to arrive at the ED soiled in both urine and feces. Pt complains of nausea and vomiting, though states this did not occur until after he was given phenobarbital. Mild headache, some diaphoresis. Denies visual, auditory, or tactile hallucinations. Denies increase in anxiety. No chest pain/pressure, palpitations. Denies shortness or breath or difficulty breathing. In the ED pt was tachycardic up to 102, tachypneic up to 22, hypertensive as high as 168/57 in low-grade fever of 99.9. Labs were significant for alk-phos 161 and ethyl alcohol level of 277, otherwise grossly unremarkable and around baseline for pt. No leukocytosis. Stable anemia 9.5/28.6. No significant electrolyte abnormalities. Renal function baseline. Troponin negative. Tested negative for flu, RSV, and COVID. CXR showed no acute airspace disease. Hip and pelvis x-ray showing moderate osteoarthritis but negative for acute fracture of right hip. X-rays of right knee, ankle, and foot negative for acute fracture. X-ray of left foot showed old traumatic deformities of distal 2nd, 3rd, and 5th metatarsals. EKG demonstrated normal sinus rhythm with left anterior fascicular block and T-wave inversions in anterior lateral leads. After pt became tachycardic and tachypneic in the ED, pt was started on phenobarb protocol. Pt will be admitted to the hospital for treatment and further evaluation of generalized weakness in the setting of acute alcohol withdrawal. [facility] Medical History Abdominal wall abscess at site of surgical wound CKD stage 3a, GFR 45-59 ml/min Colitis Renal mass Renal cell carcinoma Alcohol use disorder Hyperlipidemia Ascending aortic aneurysm Alcoholic steatohepatitis Seborrheic dermatitis DEBORAH (obstructive sleep apnea) History of rhabdomyolysis Hx of lower gastrointestinal bleeding Hx of sepsis History of DVT of lower extremity Chronic ulcer of leg Chronic venous stasis HTN (hypertension) Anemia Anemia Family History Mother Dementia Maternal Grandmother Dementia Surgical History H/O partial nephrectomy Hx of colonoscopy Social History Household Members: Family Housing: House Housing Other:: 4 stairs to get into house. Pt lives in basement Do you presently have visiting nurse or other home services: No Alcohol intake: current Alcohol intake frequency: 3 or more drinks per day Alcohol type: hard liquor Comment: pt refused socks Patient Tobacco Use Status: Never used Tobacco Smoked in Last 30 Days: No Use of substances other than those prescribed or required for medical reasons: No Advance Directives: Yes Advance Directives on File: Yes Advance Directives Date on File: 04/13/22 service: No Current occupational status: disabled Meds Allergies Allergy/AdvReac Type Severity Reaction Status Date / Time azithromycin [AZITHROMYCIN] Allergy Severe FACIAL Verified 10/16/24 03:23 SWELLING hydrochlorothiazide [HCTZ] Allergy Severe Facial Verified 10/16/24 03:23 Swelling Active Medications: Current Medications Pharmacy Consult (Consult Rx Etoh Phenob Im/Po) 1 each MISCELLANE ONCE PRN; Protocol PRN Reason: Consult order Phenobarbital (Phenobarbital 15 Mg Tablet) 45 mg PO BID PROMISE Stop: 10/18/24 21:01 Phenobarbital (Phenobarbital 30 Mg Tablet) 30 mg PO BID PROMISE Stop: 10/20/24 21:01 Phenobarbital (Phenobarbital 30 Mg Tablet) 30 mg PO DAILY PROMISE Stop: 10/22/24 09:01 Phenobarbital Sodium (Phenobarbital Sodium 130 Mg/Ml Vial Im Q3hx2) 238 mg IM Q3H PROMISE Stop: 10/16/24 21:16 Home Medications ?Medication ?Instructions ?Recorded ?Confirmed ?Last Taken ?Type metoprolol succinate 50 mg 50 mg PO DAILY 10/30/22 10/16/24 05/10/24 History tablet,extended release 24 hr rosuvastatin 5 mg tablet 5 mg PO BEDTIME 08/26/23 10/16/24 05/10/24 History cyanocobalamin (vitamin B-12) 1,000 mcg IM Q30D 02/05/24 10/16/24 05/06/24 History 1,000 mcg/mL injection solution allopurinol 300 mg tablet 300 mg PO DAILY 07/29/24 10/16/24 Unknown History ascorbate calcium (vitamin C) 500 500 mg PO BID 07/29/24 10/16/24 Unknown History mg tablet calcium 250 mg (as 1 tab PO TID 10/16/24 10/16/24 Unknown History carbonate)-vitamin D3 3.125 mcg (125 unit) tablet (Oyster Shell Calcium-Vitamin D3) cholecalciferol (vitamin D3) 50 50 mcg PO DAILY 10/16/24 10/16/24 Unknown History mcg (2,000 unit) tablet (Vitamin D3) ferrous sulfate 325 mg (65 mg 325 mg PO DAILY 10/16/24 10/16/24 Unknown History iron) tablet,delayed release lidocaine 5 % topical cream 1 appl topical BID 10/16/24 10/16/24 Unknown History mineral oil-hydrophil petrolat 1 appl topical BID 10/16/24 10/16/24 Unknown History topical ointment (petrolatum topical ointment) [id number] 1 tab PO DAILY 10/16/24 10/16/24 Unknown History fumarate 7.5 mg-folic acid 400 mcg tablet naltrexone 50 mg tablet 50 mg PO DAILY 10/16/24 10/16/24 Unknown History omeprazole 20 mg capsule,delayed 20 mg PO DAILY 10/16/24 10/16/24 Unknown History release pyridoxine (vitamin B6) 50 mg 50 mg PO DAILY 10/16/24 10/16/24 Unknown History tablet (Vitamin B-6) thiamine HCl (vitamin B1) 100 mg 100 mg PO DAILY 10/16/24 10/16/24 Unknown History tablet (Vitamin B-1) Physical Exam Vital Signs and Narrative: Vital Signs: Last Vital Signs Temp 99.9 F 10/16/24 15:32 Pulse 99 10/16/24 15:32 Resp 18 10/16/24 15:32 BP 153/84 H 10/16/24 15:32 Pulse Ox 96 10/16/24 15:32 O2 Del Method Room Air 10/16/24 15:32 BMI result Body Mass Index 34.8 General: AOx3, dissheveled, mildly diaphoretic. In no acute distress Resp: CTA bilaterally CVS: S1, S2, RRR GI: +BS, NT, no distention Skin: Warm, dry Neuro: Cranial nerves II-XII grossly intact bilaterally. Motor grossly intact bilaterally. Mild upper extremity tremors noted. No tongue fasciculations. Pt unable to move lower extremities when acid. Extremities: 2-3+ bilateral pitting edema with severe bilateral venous stasis dermatitis. Right lower extremity ulcerations around ankles at site of sock bands. As pictured below. Psych: Appropriate affect Results Labs 10/16/24 04:05 10/16/24 04:05 Labs: Laboratory Results - last 24 hr 10/16/24 10/16/24 04:05 14:27 MCV 84.4 MCH 28.0 MCHC 33.2 RDW 16.3 H Plt Count 235 D MPV 7.9 L Immature Gran % (Auto) 0.3 Neut % (Auto) 61.6 Lymph % (Auto) 28.7 Will % (Auto) 6.8 Eos % (Auto) 1.5 Baso % (Auto) 1.1 Lymph # (Auto) 3.1 Will # (Auto) 0.7 Eos # (Auto) 0.2 Baso # (Auto) 0.1 Abs Immat Gran (auto) 0.03 Absolute Neuts (auto) 6.7 Absolute Nucleated RBC 0.000 Nucleated RBC % (auto) 0.0 Anion Gap 16 Estim Creat Clear Calc 96.0 Estimated GFR > 60 Random Glucose 104 Calcium 8.8 Total Bilirubin 0.5 AST 23 ALT < 6 Alkaline Phosphatase 161 H Total Protein 8.1 H Albumin 3.4 L Ethyl Alcohol 277 Influenza Type A (PCR) NEGATIVE Influenza Type B (PCR) NEGATIVE RSV RNA Qual (PCR) NEGATIVE SARS-CoV-2 RNA (RT-PCR) NEGATIVE Imaging Radiologist's Impressions: Impressions Ankle X-Ray 10/16/24 07:10 IMPRESSION: 1.There are findings suspicious for and age indeterminant fracture of the proximal fifth metatarsal only seen on the lateral projection. This is not definitive. Recommend correlating with dedicated plain films of the right foot. 2. There is no additional fracture or malalignment. 3. Mild degenerative arthritis in the tibiotalar joint. 4. Large plantar calcaneal spur. 5. There appears to be diffuse periosteal thickening of the distal tibial and fibular metadiaphyses. This is nonspecific. Electronically signed by: Kaushal Trujillo MD 10/16/2024 09:15 AM EST RP Knee X-Ray 10/16/24 07:10 IMPRESSION: No evidence of fracture of the right knee. Electronically signed by: Eric Juarez MD 10/16/2024 09:02 AM EST RP Ankle X-Ray 10/16/24 07:12 IMPRESSION: No acute fracture or dislocation. No regional osteopenia/osteoporosis suggesting immobilization among other etiologies. Edema pattern, bimalleolar. Please refer to the left foot x-ray. Electronically signed by: Daniel Lundberg MD 10/16/2024 09:09 AM EST RP Chest X-Ray 10/16/24 07:24 IMPRESSION: No acute airspace disease. Electronically signed by: Daniel Lundberg MD 10/16/2024 08:57 AM EST RP Hip/Pelvis X-Ray 10/16/24 08:00 IMPRESSION: Moderate osteoarthritis. No evidence of fracture of the right hip. Electronically signed by: Eric Juarez MD 10/16/2024 09:04 AM EST RP Foot X-Ray 10/16/24 12:12 IMPRESSION: I do not see a gross acute fracture. Edema pattern distal foot. Electronically signed by: Daniel Lundberg MD 10/16/2024 12:51 PM EST RP Foot X-Ray 10/16/24 12:15 IMPRESSION: Old traumatic deformities distal second and third and fifth metatarsals. Osteopenia versus osteoporosis. Electronically signed by: Daniel Lundberg MD 10/16/2024 12:48 PM EST RP Assessment and Plan (1) Alcohol withdrawal: Status: Acute Plan Pt is a 64-year-old male with a PMH significant for?HTN, HLD, anemia, chronic venous stasis dermatitis, alcohol use disorder, hx of DVT no longer on anticoagulation, hx of leg edema s/p venous ablation in 1998, hx of left renal cancer s/p partial nephrectomy in 2023, CKD 3, and gout who presents to the ED with for evaluation of lower extremity weakness and inability to ambulate. Pt will be admitted to the hospital for treatment and further evaluation of generalized weakness in the setting of acute alcohol withdrawal. Acute alcohol withdrawal Pt daily drinker, alcohol level 277 at time of presentation Pt with tachycardia, tachypnea, and diaphoresis after 12 hours in the ED, started on phenobarb Continue phenobarb protocol Folic acid, thiamine, daily multivitamin, omeprazole Addiction medicine consult Monitor on telemetry Generalized weakness Pt reports was unable to get out of his recliner this morning or ambulate Complains of right hip pain after slipping on the ice last week without fall Imaging negative for acute fractures PT consult Chronic venous stasis dermatitis Pt with significant lower leg edema and bleeding ulcerations on right lower extremity Ammonium lactate lotion b.i.d. Wound care consult Asthma Not in acute exacerbation Continue home inhalers Anemia Stable, at baseline Continue iron supplementation HTN Continue metoprolol HLD Continue statin Full Code Attending:?Dr. Santillan DVT Prophylaxis: Lovenox Pt will require a hospitalization of at least two nights for treatment of generalized weakness in the setting of acute alcohol withdrawal. Pt will require hospital level care for administration of phenobarb protocol, close monitoring of cardiac function, and PT evaluation for safe disposition home. Quality Stroke Does the patient have a stroke diagnosis?: No VTE Prior VTE?: No VTE Risk Level:: Medical - moderate - high VTE Device Contraindication: Treatment Not Indicated VTE Drug Contraindication: N/A - Med Ordered
--- NOTE | 2024-10-16 16:06 | PHA.MEDREC ---
Addendum entered by Arden Jiménez 10/16/24 16:14: Reviewed Original Note: Pharmacy Consult ? Medication Reconciliation Pharmacy has completed the medication reconciliation. Patient is a poor historian. patient states he doesn't know the names of the medications he takes. Patient said he fill his medications at [facility] pharmacy. Called [facility] pharmacy and utilized list from them to confirm me list.
[2024-10-16] MEDS: Metoprolol Succinate ER 50 MG TAB.ER.24H PO (17:31)
[2024-10-16] MEDS: Enoxaparin Sodium 40 MG/0.4 ML SYRINGE SUBCUT (17:32)
[2024-10-16 18:36] LABS: Magnesium 1.6 mg/dL (1.6-2.6)
[2024-10-16] MEDS: PHENobarbitaL sodium 130 MG/ML VIAL IM Q3Hx2 238 MG IM ×2 (18:38→22:43)
--- NOTE | 2024-10-16 19:36 | PC.NURSE ---
pt incont liquid light brown stool. pt states he doesnt know when it is coming. call piña at pt side. Skin: buttock, groin and inner thigh beefy red tender no opening in skin. EPC cream applied, lower legs dry, elephant like legs with open areas to inner lower legs. legs elevated on pillow. Dressing to abd dry no drianage from the kidney noted. pt is alert oriented with tremors noted pt states he has had the tremors since he was a kid. Pt is etoh and on the phenobarbital protocal. Condum cath falls off, no longer on due inadequate surface area to apply, pt has urinal at bedside. pt has hx afib hr controlled 72.
[2024-10-16] MEDS: Atorvastatin Calcium 10 MG TABLET PO (22:28)
[2024-10-16] MEDS: Ascorbic Acid 500 MG TABLET PO (22:28)
[2024-10-16] MEDS: Calcium + Vitamin D 250 MG TABLET PO (22:28)
[2024-10-16] MEDS: Loperamide HCl 2 MG CAPSULE PO (23:12)
[2024-10-16] MEDS: 0.9 % Sodium Chloride Flush 3 ML SYRINGE IVFLUSH (23:13)
[2024-10-17 03:12] VITALS: BP 160/74; PULSE 68; RESP 16; TEMP 36.6; O2SAT 96
[2024-10-17 07:08] LABS: Hematocrit 26.6 % (42.0-52.0); Hemoglobin 8.6 g/dl (14.0-18.0); Mean Corpuscular HGB Conc 32.3 g/dl (31.0-36.0); Mean Corpuscular Hemoglobin 27.8 pg (27.0-33.0); Mean Corpuscular Volume 86.1 fL (80.0-98.0); Mean Platelet Volume 8.5 fL (9.4-12.4); Platelet Count 156 X10*3/uL (160-400); Red Blood Count 3.09 X10*6/uL (4.60-5.80); Red Cell Distribution Width 16.1 % (11.0-16.0); White Blood Count 6.8 X10*3/uL (4.8-10.8)
[2024-10-17 07:16] VITALS: BP 139/73; PULSE 62; RESP 18; TEMP 37.3; O2SAT 98
[2024-10-17 07:26] LABS: Anion Gap 12 (12-20); Blood Urea Nitrogen 11 mg/dL (9-16); Calcium 8.8 mg/dL (8.4-10.2); Carbon Dioxide 25 mmol/L (22-29); Chloride 105 mmol/L (96-108); Creatinine Clr Calc Pharmacy 111.8; Estimated Glomerular Filt Rate > 60; Glucose Random 89 mg/dL (60-115); Potassium 3.7 mmol/L (3.3-5.1); Sodium 138 mmol/L (135-145)
--- NOTE | 2024-10-17 09:24 | MHC.CM.PN ---
Patient has hip Pain patient s/p recent fall. He states that he is not able to ambulate. HCP on file. PCP Dr Gonzales. He lives with his Mother. He is independent with all functional mobility at baseline. He has a rollator. He uses PRN when he leaves home. PT eval recommendation is STR. Pt preference [facility]. Referral made. [facility] via [facility].
[2024-10-17] MEDS: Ascorbic Acid 500 MG TABLET PO ×2 (09:49→20:49)
[2024-10-17] MEDS: PHENobarbitaL 15 MG TABLET 45 MG PO ×2 (09:49→20:49)
[2024-10-17] MEDS: allopurinoL 300 MG TABLET PO (09:49)
[2024-10-17] MEDS: Multivitamin TABLET 1 TAB PO (09:50)
[2024-10-17] MEDS: Metoprolol Succinate ER 50 MG TAB.ER.24H PO (09:50)
[2024-10-17] MEDS: Folic Acid 1 MG TABLET PO (09:50)
[2024-10-17] MEDS: Calcium + Vitamin D 250 MG TABLET PO ×3 (09:50→20:49)
[2024-10-17] MEDS: Pyridoxine HCl (Vitamin B6) 50 MG TABLET PO (09:50)
[2024-10-17] MEDS: Thiamine HCL 100 MG TABLET PO (09:50)
[2024-10-17] MEDS: Naltrexone HCl 50 MG TABLET PO (09:50)
[2024-10-17] MEDS: Magnesium Oxide 400 MG TABLET PO (09:50)
[2024-10-17] MEDS: Cholecalciferol (Vitamin D3) 25 MCG TABLET 50 MCG PO (09:50)
[2024-10-17] MEDS: Omeprazole 20 MG CAPSULE.DR PO (09:50)
[2024-10-17] MEDS: Ferrous Sulfate 324 MG TABLET.DR PO (09:51)
--- NOTE | 2024-10-17 09:58 | HO.PM.IMPN ---
Subjective Subjective Date of Service: 10/17/24 Interval History: No new complaints Physical Exam Vital Signs: Vital Signs: Last Vital Signs Temp 99.1 F 10/17/24 07:16 Pulse 62 10/17/24 07:16 Resp 18 10/17/24 07:16 BP 139/73 10/17/24 07:16 Pulse Ox 98 10/17/24 07:16 O2 Del Method Room Air 10/17/24 07:16 BMI result Body Mass Index 34.4 General: AOx3, dissheveled, In no acute distress Resp: CTA bilaterally CVS: S1, S2, RRR GI: +BS, NT, no distention Skin: Warm, dry Extremities: 2-3+ bilateral pitting edema with severe bilateral venous stasis dermatitis. Right lower extremity ulcerations around ankles at site of sock bands. As pictured below. Psych: Appropriate affect Objective Data Active Medications Acetaminophen (Acetaminophen 325 Mg Tablet) 650 mg PO Q6H PRN PRN Reason: Pain, Mild 1-3,fever,headache Allopurinol (Allopurinol 300 Mg Tablet) 300 mg PO DAILY [facility] Ascorbic Acid (Ascorbic Acid 500 Mg Tablet) 500 mg PO BID [facility] Last Admin: 10/16/24 22:28 Dose: 500 mg Documented By: RANJIT Atorvastatin Calcium (Atorvastatin Calcium 10 Mg Tablet) 10 mg PO BEDTIME [facility] Last Admin: 10/16/24 22:28 Dose: 10 mg Documented By: RANJIT Calcium Carbonate (Calcium Carbonate 750 Mg Tab.Chew) 750 mg PO Q4H PRN PRN Reason: Heartburn Calcium Carbonate/Cholecalciferol (Calcium + Vitamin D 250 Mg Tablet) 250 mg PO TID [facility] Last Admin: 10/16/24 22:28 Dose: 250 mg Documented By: RANJIT Cyanocobalamin (Cyanocobalamin (Vitamin B-12) 1,000 Mcg/Ml Vial) 1,000 mcg IM Q30D [facility] Last Admin: 10/16/24 17:01 Dose: Not Given Documented By: NAEEM Non-Admin Reason: Patient Refused Enoxaparin Sodium (Enoxaparin Sodium 40 Mg/0.4 Ml Syringe) 40 mg SUBCUT Q24H [facility] Last Admin: 10/16/24 17:32 Dose: 40 mg Documented By: NAEEM Ferrous Sulfate (Ferrous Sulfate 324 Mg Tablet.Dr) 324 mg PO DAILY [facility] Folic Acid (Folic Acid 1 Mg Tablet) 1 mg PO DAILY [facility] Last Admin: 10/16/24 17:01 Dose: Not Given Documented By: NAEEM Non-Admin Reason: Patient Refused Lactic Acid (Ammonium Lactate 12 % Lotion 226 Gm Bottle) 1 appl TOPICAL BID [facility]; Protocol Last Admin: 10/16/24 22:33 Dose: Not Given Documented By: RANJIT Non-Admin Reason: Med Not Available Magnesium Hydroxide (Milk Of Magnesia 30 Ml Oral.Susp) 30 ml PO DAILY PRN PRN Reason: Constipation Magnesium Oxide (Magnesium Oxide 400 Mg Tablet) 400 mg PO DAILY [facility] Melatonin (Melatonin 3 Mg Tablet) 6 mg PO BEDTIME PRN PRN Reason: Insomnia Metoprolol Succinate (Metoprolol Succinate Er 50 Mg Tab.Er.24h) 50 mg PO DAILY [facility]; Protocol Last Admin: 10/16/24 17:31 Dose: 50 mg Documented By: NAEEM Multi-Ingred Cream/Lotion/Oil/Oint (Mineral Oil/Petrolatum,White 106 Gm Tube) 1 appl TOPICAL BID [facility] Last Admin: 10/16/24 22:33 Dose: Not Given Documented By: RANJIT Non-Admin Reason: Med Not Available Multivitamins/Vitamin C (Multivitamin Tablet) 1 tab PO DAILY [facility] Naltrexone HCl (Naltrexone Hcl 50 Mg Tablet) 50 mg PO DAILY [facility] Omeprazole (Omeprazole 20 Mg Capsule.Dr) 20 mg PO DAILY [facility] Last Admin: 10/16/24 17:01 Dose: Not Given Documented By: NAEEM Non-Admin Reason: Patient Refused Ondansetron HCl (Ondansetron Hcl 4 Mg/2 Ml Vial) 4 mg IVPUSH Q8H PRN PRN Reason: Nausea and Vomiting Pharmacy Consult (Consult Rx Etoh Phenob Im/Po) 1 each MISCELLANE ONCE PRN; Protocol PRN Reason: Consult order Phenobarbital (Phenobarbital 15 Mg Tablet) 45 mg PO BID [facility] Stop: 10/18/24 21:01 Phenobarbital (Phenobarbital 30 Mg Tablet) 30 mg PO BID [facility] Stop: 10/20/24 21:01 Phenobarbital (Phenobarbital 30 Mg Tablet) 30 mg PO DAILY [facility] Stop: 10/22/24 09:01 Pyridoxine HCl (Pyridoxine Hcl (Vitamin B6) 50 Mg Tablet) 50 mg PO DAILY [facility] Last Admin: 10/16/24 17:01 Dose: Not Given Documented By: NAEEM Non-Admin Reason: Physician Approved Sodium Chloride (0.9 % Sodium Chloride Flush 3 Ml Syringe) 3 ml IVFLUSH QSHIFT [facility] Last Admin: 10/16/24 23:13 Dose: 3 ml Documented By: JOHN Thiamine HCl (Thiamine Hcl 100 Mg Tablet) 100 mg PO DAILY [facility] Last Admin: 10/16/24 17:02 Dose: Not Given Documented By: NAEEM Non-Admin Reason: Patient Refused Vitamin D (Cholecalciferol (Vitamin D3) 25 Mcg Tablet) 50 mcg PO DAILY [facility] Labs 10/17/24 06:15 10/17/24 06:15 Labs: Laboratory Results - last 24 hr 10/16/24 10/16/24 10/17/24 04:05 14:27 06:15 MCV 86.1 MCH 27.8 MCHC 32.3 RDW 16.1 H Plt Count 156 L D MPV 8.5 L Absolute Nucleated RBC 0.000 Nucleated RBC % (auto) 0.0 Anion Gap 12 Estim Creat Clear Calc 111.8 Estimated GFR > 60 Random Glucose 89 Calcium 8.8 Magnesium 1.6 Influenza Type A (PCR) NEGATIVE Influenza Type B (PCR) NEGATIVE RSV RNA Qual (PCR) NEGATIVE SARS-CoV-2 RNA (RT-PCR) NEGATIVE Assessment and Plan (1) Alcohol use disorder: Status: Acute Plan 64M PMH hypertension, hyperlipidemia, anemia, chronic venous stasis dermatitis, alcohol dependence, history of DVT no longer on anticoagulation, left renal cancer status post partial nephrectomy, gout presented with weakness inability to ambulate complicated by alcohol withdrawal Alcohol dependence with acute withdrawal Continue phenobarb, monitor CIWA Continue vitamin supplements Chronic venous stasis dermatitis Wound care Generalized weakness PT eval Hypertension Continue metoprolol Hyperlipidemia Continue statin DVT prophylaxis with Lovenox Full Code reason for continued hospitalization: Ongoing treatment for withdrawal Quality Stroke Does the patient have a stroke diagnosis?: No VTE Prior VTE?: No VTE Risk Level:: Medical - moderate - high VTE Device Contraindication: Treatment Not Indicated VTE Drug Contraindication: N/A - Med Ordered
[2024-10-17 11:44] VITALS: BP 142/65; PULSE 59; RESP 16; TEMP 36.8; O2SAT 96
[2024-10-17 15:37] VITALS: BP 152/73; PULSE 75; RESP 18; TEMP 36.9; O2SAT 98
[2024-10-17 16:07] LABS: CDiff Gene PCR NEGATIVE (Negative)
[2024-10-17] MEDS: Enoxaparin Sodium 40 MG/0.4 ML SYRINGE SUBCUT (16:36)
[2024-10-17] MEDS: 0.9 % Sodium Chloride Flush 3 ML SYRINGE IVFLUSH (16:37)
[2024-10-17 20:00] VITALS: BP 142/75; PULSE 68; RESP 18; TEMP 36.4; O2SAT 99
[2024-10-17] MEDS: Atorvastatin Calcium 10 MG TABLET PO (20:49)
[2024-10-17] MEDS: Mineral Oil/Petrolatum,White 106 GM Tube 1 APPL TOPICAL (20:50)
[2024-10-18] VITALS (7 sets, daily range): BP systolic 125–144; BP diastolic 65–79; PULSE 65–72; RESP 16–20; TEMP 36.3–37.3; O2SAT 94–98
[2024-10-18 07:24] LABS: Hemoglobin 8.4 g/dl (14.0-18.0); Mean Corpuscular HGB Conc 32.3 g/dl (31.0-36.0); Mean Corpuscular Hemoglobin 28.2 pg (27.0-33.0); Mean Corpuscular Volume 87.2 fL (80.0-98.0); Platelet Count 144 X10*3/uL (160-400); Red Blood Count 2.98 X10*6/uL (4.60-5.80); Red Cell Distribution Width 15.9 % (11.0-16.0); White Blood Count 7.8 X10*3/uL (4.8-10.8)
[2024-10-18 07:26] LABS: INTERNATIONAL NORM RATIO 1.2 (0.9-1.1); Prothrombin Time 13.7 SEC (10.9-12.4)
[2024-10-18 08:00] LABS: Alanine Aminotransferase < 6 U/L (0-40); Albumin Level 2.7 g/dL (3.5-5.0); Anion Gap 13 (12-20); Aspartate Amino Transferase 18 U/L (5-37); Bilirubin Direct 0.4 mg/dL (0.0-0.5); Bilirubin Total 0.7 mg/dL (0.0-1.0); Blood Urea Nitrogen 12 mg/dL (9-16); Calcium 8.6 mg/dL (8.4-10.2); Carbon Dioxide 24 mmol/L (22-29); Chloride 104 mmol/L (96-108); Creatinine Clr Calc Pharmacy 106.2; Estimated Glomerular Filt Rate > 60; Glucose Random 90 mg/dL (60-115); Magnesium 1.3 mg/dL (1.6-2.6); Potassium 3.6 mmol/L (3.3-5.1); Sodium 137 mmol/L (135-145); Total Protein 6.4 g/dL (6.5-8.0)
[2024-10-18 08:16] LABS: Alkaline Phosphatase 118 U/L (39-117)
[2024-10-18] MEDS: Cholecalciferol (Vitamin D3) 25 MCG TABLET 50 MCG PO (09:52)
[2024-10-18] MEDS: Calcium + Vitamin D 250 MG TABLET PO ×3 (09:52→22:52)
[2024-10-18] MEDS: Multivitamin TABLET 1 TAB PO (09:52)
[2024-10-18] MEDS: Naltrexone HCl 50 MG TABLET PO (09:52)
[2024-10-18] MEDS: PHENobarbitaL 15 MG TABLET 45 MG PO ×2 (09:52→22:51)
[2024-10-18] MEDS: Ferrous Sulfate 324 MG TABLET.DR PO (09:53)
[2024-10-18] MEDS: Omeprazole 20 MG CAPSULE.DR PO (09:53)
[2024-10-18] MEDS: Pyridoxine HCl (Vitamin B6) 50 MG TABLET PO (09:53)
[2024-10-18] MEDS: Magnesium Oxide 400 MG TABLET PO (09:53)
[2024-10-18] MEDS: Mineral Oil/Petrolatum,White 106 GM Tube 1 APPL TOPICAL ×2 (09:53→23:19)
[2024-10-18] MEDS: Ammonium Lactate 12 % Lotion 226 GM BOTTLE 1 APPL TOPICAL ×2 (09:53→23:19)
[2024-10-18] MEDS: Metoprolol Succinate ER 50 MG TAB.ER.24H PO (09:53)
[2024-10-18] MEDS: Folic Acid 1 MG TABLET PO (09:53)
[2024-10-18] MEDS: Thiamine HCL 100 MG TABLET PO (09:53)
[2024-10-18] MEDS: Ascorbic Acid 500 MG TABLET PO ×2 (09:53→22:52)
[2024-10-18] MEDS: allopurinoL 300 MG TABLET PO (09:53)
[2024-10-18] MEDS: 0.9 % Sodium Chloride Flush 3 ML SYRINGE IVFLUSH ×2 (09:54→22:54)
[2024-10-18 10:12] LABS: Adenovirus F 40/41 Not Detected (Not Detect.); Astrovirus Not Detected (Not Detect.); Campylobacter Not Detected (Not Detect.); Cryptosporidium Not Detected (Not Detect.); Cyclospora cayetanensis Not Detected (Not Detect.); E. coli EAEC Not Detected (Not Detect.); E. coli EPEC Not Detected (Not Detect.); E. coli ETEC Not Detected (Not Detect.); E. coli STEC Not Detected (Not Detect.); Entamoeba histolytica Not Detected (Not Detect.); Giardia lamblia Not Detected (Not Detect.); Norovirus GI/GII Not Detected (Not Detect.); Plesiomonas shigelloides Not Detected (Not Detect.); Rotavirus A Not Detected (Not Detect.); Salmonella Not Detected (Not Detect.); Sapovirus Not Detected (Not Detect.); Shigella sp./EIEC Not Detected (Not Detect.); Vibrio Not Detected (Not Detect.); Vibrio Cholerae Not Detected (Not Detect.); Yersinia enterocolitica Not Detected (Not Detect.)
--- NOTE | 2024-10-18 11:00 | HO.PM.IMPN ---
Subjective Subjective Date of Service: 10/18/24 Interval History: No new complaints Physical Exam Vital Signs: Vital Signs: Last Vital Signs Temp 97.8 F 10/18/24 08:00 Pulse 65 10/18/24 08:00 Resp 20 10/18/24 08:00 BP 144/78 H 10/18/24 08:00 Pulse Ox 98 10/18/24 08:00 O2 Del Method Room Air 10/18/24 08:00 BMI result Body Mass Index 34.4 General: AOx3, dissheveled, In no acute distress Resp: CTA bilaterally CVS: S1, S2, RRR GI: +BS, NT, no distention Skin: Warm, dry Extremities: 2-3+ bilateral pitting edema with severe bilateral venous stasis dermatitis. Right lower extremity ulcerations around ankles at site of sock bands. As pictured below. Psych: Appropriate affect Objective Data Active Medications Acetaminophen (Acetaminophen 325 Mg Tablet) 650 mg PO Q6H PRN PRN Reason: Pain, Mild 1-3,fever,headache Allopurinol (Allopurinol 300 Mg Tablet) 300 mg PO DAILY [facility] Last Admin: 10/18/24 09:53 Dose: 300 mg Documented By: JENNY Ascorbic Acid (Ascorbic Acid 500 Mg Tablet) 500 mg PO BID [facility] Last Admin: 10/18/24 09:53 Dose: 500 mg Documented By: JENNY Atorvastatin Calcium (Atorvastatin Calcium 10 Mg Tablet) 10 mg PO BEDTIME [facility] Last Admin: 10/17/24 20:49 Dose: 10 mg Documented By: RANJIT Calcium Carbonate (Calcium Carbonate 750 Mg Tab.Chew) 750 mg PO Q4H PRN PRN Reason: Heartburn Calcium Carbonate/Cholecalciferol (Calcium + Vitamin D 250 Mg Tablet) 250 mg PO TID [facility] Last Admin: 10/18/24 09:52 Dose: 250 mg Documented By: JENNY Cyanocobalamin (Cyanocobalamin (Vitamin B-12) 1,000 Mcg/Ml Vial) 1,000 mcg IM Q30D [facility] Last Admin: 10/16/24 17:01 Dose: Not Given Documented By: NAEEM Non-Admin Reason: Patient Refused Enoxaparin Sodium (Enoxaparin Sodium 40 Mg/0.4 Ml Syringe) 40 mg SUBCUT Q24H [facility] Last Admin: 10/17/24 16:36 Dose: 40 mg Documented By: JENNY Ferrous Sulfate (Ferrous Sulfate 324 Mg Tablet.) 324 mg PO DAILY [facility] Last Admin: 10/18/24 09:53 Dose: 324 mg Documented By: JENNY Folic Acid (Folic Acid 1 Mg Tablet) 1 mg PO DAILY [facility] Last Admin: 10/18/24 09:53 Dose: 1 mg Documented By: JENNY Magnesium Sulfate (Magnesium Sulfate/H2o) 2 gm in 50 mls @ 25 mls/hr IV ONCE ONE Stop: 10/18/24 12:20 Lactic Acid (Ammonium Lactate 12 % Lotion 226 Gm Bottle) 1 appl TOPICAL BID [facility]; Protocol Last Admin: 10/18/24 09:53 Dose: 1 appl Documented By: JENNY Magnesium Hydroxide (Milk Of Magnesia 30 Ml Oral.Susp) 30 ml PO DAILY PRN PRN Reason: Constipation Magnesium Oxide (Magnesium Oxide 400 Mg Tablet) 400 mg PO DAILY [facility] Last Admin: 10/18/24 09:53 Dose: 400 mg Documented By: JENNY Melatonin (Melatonin 3 Mg Tablet) 6 mg PO BEDTIME PRN PRN Reason: Insomnia Metoprolol Succinate (Metoprolol Succinate Er 50 Mg Tab.Er.24h) 50 mg PO DAILY [facility]; Protocol Last Admin: 10/18/24 09:53 Dose: 50 mg Documented By: JENNY Multi-Ingred Cream/Lotion/Oil/Oint (Mineral Oil/Petrolatum,White 106 Gm Tube) 1 appl TOPICAL BID [facility] Last Admin: 10/18/24 09:53 Dose: 1 appl Documented By: JENNY Multivitamins/Vitamin C (Multivitamin Tablet) 1 tab PO DAILY [facility] Last Admin: 10/18/24 09:52 Dose: 1 tab Documented By: JENNY Naltrexone HCl (Naltrexone Hcl 50 Mg Tablet) 50 mg PO DAILY [facility] Last Admin: 10/18/24 09:52 Dose: 50 mg Documented By: JENNY Omeprazole (Omeprazole 20 Mg Capsule.) 20 mg PO DAILY [facility] Last Admin: 10/18/24 09:53 Dose: 20 mg Documented By: JENNY Ondansetron HCl (Ondansetron Hcl 4 Mg/2 Ml Vial) 4 mg IVPUSH Q8H PRN PRN Reason: Nausea and Vomiting Pharmacy Consult (Consult Rx Etoh Phenob Im/Po) 1 each MISCELLANE ONCE PRN; Protocol PRN Reason: Consult order Phenobarbital (Phenobarbital 15 Mg Tablet) 45 mg PO BID [facility] Stop: 10/18/24 21:01 Last Admin: 10/18/24 09:52 Dose: 45 mg Documented By: JENNY Phenobarbital (Phenobarbital 30 Mg Tablet) 30 mg PO BID [facility] Stop: 10/20/24 21:01 Phenobarbital (Phenobarbital 30 Mg Tablet) 30 mg PO DAILY [facility] Stop: 10/22/24 09:01 Pyridoxine HCl (Pyridoxine Hcl (Vitamin B6) 50 Mg Tablet) 50 mg PO DAILY [facility] Last Admin: 10/18/24 09:53 Dose: 50 mg Documented By: JENNY Sodium Chloride (0.9 % Sodium Chloride Flush 3 Ml Syringe) 3 ml IVFLUSH QSHIFT [facility] Last Admin: 10/18/24 09:54 Dose: 3 ml Documented By: JENNY Thiamine HCl (Thiamine Hcl 100 Mg Tablet) 100 mg PO DAILY [facility] Last Admin: 10/18/24 09:53 Dose: 100 mg Documented By: JENNY Vitamin D (Cholecalciferol (Vitamin D3) 25 Mcg Tablet) 50 mcg PO DAILY [facility] Last Admin: 10/18/24 09:52 Dose: 50 mcg Documented By: JENNY Labs 10/18/24 06:37 10/18/24 06:37 Labs: Laboratory Results - last 24 hr 10/17/24 10/18/24 15:08 06:37 MCV 87.2 MCH 28.2 MCHC 32.3 RDW 15.9 Plt Count 144 L MPV 9.0 L Absolute Nucleated RBC 0.000 Nucleated RBC % (auto) 0.0 PT 13.7 H INR 1.2 H Anion Gap 13 Estim Creat Clear Calc 106.2 Estimated GFR > 60 Random Glucose 90 Calcium 8.6 Magnesium 1.3 L* Total Bilirubin 0.7 Direct Bilirubin 0.4 AST 18 ALT < 6 Alkaline Phosphatase 118 H Total Protein 6.4 L Albumin 2.7 L Stl C. cayetanensis PCR Not Detected Stool Rotavirus A PCR Not Detected Stl Adenov F 40/41 PCR Not Detected Stool Astrovirus (PCR) Not Detected Stool Campylobacter PCR Not Detected Stool Cryptosporidium PCR Not Detected Stl Sh Tox Pr E STEC PCR Not Detected Stool E coli O157 PCR Not applicable Stl Enterotoxigenic E PCR Not Detected Stool EPEC (PCR) Not Detected Stool EAEC (PCR) Not Detected Stl E. histolytica PCR Not Detected Stool Giardia Lamblia PCR Not Detected Stl P. shigelloides PCR Not Detected Stool Salmonella PCR Not Detected Stool Sapovirus (PCR) Not Detected Stl Shigella/EIEC PCR Not Detected St Y.enterocolitica PCR Not Detected Stool Vibrio (PCR) Not Detected Stl Vibrio cholerae PCR Not Detected Stl Norovirus GI/GII PCR Not Detected C. difficile Tox B Gene NEGATIVE Assessment and Plan (1) Alcohol use disorder: Status: Acute Plan 64M PMH hypertension, hyperlipidemia, anemia, chronic venous stasis dermatitis, alcohol dependence, history of DVT no longer on anticoagulation, left renal cancer status post partial nephrectomy, gout presented with weakness inability to ambulate complicated by alcohol withdrawal Alcohol dependence with acute withdrawal Continue phenobarb, monitor CIWA Continue vitamin supplements Chronic venous stasis dermatitis Wound care Generalized weakness PT eval Hypertension Continue metoprolol Hyperlipidemia Continue statin DVT prophylaxis with Lovenox Full Code reason for continued hospitalization: Ongoing treatment for withdrawal Quality Stroke Does the patient have a stroke diagnosis?: No VTE Prior VTE?: No VTE Risk Level:: Medical - moderate - high VTE Device Contraindication: Treatment Not Indicated VTE Drug Contraindication: N/A - Med Ordered
[2024-10-18] MEDS: Magnesium Sulfate/H2O 2 GM/50 ML PIGGYBACK IV (11:20)
[2024-10-18] MEDS: Enoxaparin Sodium 40 MG/0.4 ML SYRINGE SUBCUT (16:59)
[2024-10-18] MEDS: Atorvastatin Calcium 10 MG TABLET PO (22:51)
[2024-10-19] VITALS (7 sets, daily range): BP systolic 111–141; BP diastolic 57–75; PULSE 60–78; RESP 14–20; TEMP 36.6–37.3; O2SAT 96–98
[2024-10-19 07:04] LABS: Hematocrit 25.8 % (42.0-52.0); Hemoglobin 8.4 g/dl (14.0-18.0); Mean Corpuscular HGB Conc 32.6 g/dl (31.0-36.0); Mean Corpuscular Hemoglobin 28.1 pg (27.0-33.0); Mean Corpuscular Volume 86.3 fL (80.0-98.0); Mean Platelet Volume 9.3 fL (9.4-12.4); Platelet Count 133 X10*3/uL (160-400); Red Blood Count 2.99 X10*6/uL (4.60-5.80); Red Cell Distribution Width 15.9 % (11.0-16.0); White Blood Count 7.8 X10*3/uL (4.8-10.8)
[2024-10-19 07:40] LABS: Alanine Aminotransferase < 6 U/L (0-40); Albumin Level 2.6 g/dL (3.5-5.0); Anion Gap 11 (12-20); Aspartate Amino Transferase 18 U/L (5-37); Bilirubin Direct 0.3 mg/dL (0.0-0.5); Bilirubin Total 0.5 mg/dL (0.0-1.0); Blood Urea Nitrogen 15 mg/dL (9-16); Calcium 8.3 mg/dL (8.4-10.2); Carbon Dioxide 24 mmol/L (22-29); Chloride 103 mmol/L (96-108); Creatinine Clr Calc Pharmacy 95.5; Estimated Glomerular Filt Rate > 60; Glucose Random 92 mg/dL (60-115); Magnesium 1.2 mg/dL (1.6-2.6); Potassium 3.9 mmol/L (3.3-5.1); Sodium 134 mmol/L (135-145); Total Protein 6.3 g/dL (6.5-8.0)
[2024-10-19 08:05] LABS: Alkaline Phosphatase 105 U/L (39-117)
[2024-10-19] MEDS: Magnesium Sulfate/H2O 2 GM/50 ML PIGGYBACK IV ×2 (09:13→16:45)
[2024-10-19] MEDS: 0.9 % Sodium Chloride Flush 3 ML SYRINGE IVFLUSH ×3 (09:14→22:06)
[2024-10-19] MEDS: Cholecalciferol (Vitamin D3) 25 MCG TABLET 50 MCG PO (09:22)
[2024-10-19] MEDS: Folic Acid 1 MG TABLET PO (09:22)
[2024-10-19] MEDS: Calcium + Vitamin D 250 MG TABLET PO ×3 (09:22→21:46)
[2024-10-19] MEDS: Metoprolol Succinate ER 50 MG TAB.ER.24H PO (09:22)
[2024-10-19] MEDS: Thiamine HCL 100 MG TABLET PO (09:22)
[2024-10-19] MEDS: Omeprazole 20 MG CAPSULE.DR PO (09:22)
[2024-10-19] MEDS: allopurinoL 300 MG TABLET PO (09:23)
[2024-10-19] MEDS: Naltrexone HCl 50 MG TABLET PO (09:23)
[2024-10-19] MEDS: PHENobarbitaL 30 MG TABLET PO ×2 (09:23→21:47)
[2024-10-19] MEDS: Ferrous Sulfate 324 MG TABLET.DR PO (09:23)
[2024-10-19] MEDS: Multivitamin TABLET 1 TAB PO (09:23)
[2024-10-19] MEDS: Magnesium Oxide 400 MG TABLET PO (09:23)
[2024-10-19] MEDS: Ascorbic Acid 500 MG TABLET PO ×2 (09:23→21:46)
[2024-10-19] MEDS: Pyridoxine HCl (Vitamin B6) 50 MG TABLET PO (09:23)
[2024-10-19] MEDS: Ammonium Lactate 12 % Lotion 226 GM BOTTLE 1 APPL TOPICAL ×2 (09:26→21:48)
[2024-10-19] MEDS: Mineral Oil/Petrolatum,White 106 GM Tube 1 APPL TOPICAL ×2 (09:26→21:48)
--- NOTE | 2024-10-19 10:13 | HO.PM.IMPN ---
Subjective Subjective Date of Service: 10/19/24 Interval History: weakness Physical Exam Vital Signs: Vital Signs: Last Vital Signs Temp 98.8 F 10/19/24 08:00 Pulse 60 10/19/24 08:00 Resp 20 10/19/24 08:00 BP 111/72 10/19/24 08:00 Pulse Ox 98 10/19/24 08:00 O2 Del Method Room Air 10/19/24 08:00 BMI result Body Mass Index 34.4 General: AOx3, dissheveled, In no acute distress Resp: CTA bilaterally CVS: S1, S2, RRR GI: +BS, NT, no distention Skin: Warm, dry Extremities: 2-3+ bilateral pitting edema with severe bilateral venous stasis dermatitis. Right lower extremity ulcerations around ankles at site of sock bands. As pictured below. Psych: Appropriate affect Objective Data Active Medications Acetaminophen (Acetaminophen 325 Mg Tablet) 650 mg PO Q6H PRN PRN Reason: Pain, Mild 1-3,fever,headache Allopurinol (Allopurinol 300 Mg Tablet) 300 mg PO DAILY [facility] Last Admin: 10/19/24 09:23 Dose: 300 mg Documented By: LIZZETH Ascorbic Acid (Ascorbic Acid 500 Mg Tablet) 500 mg PO BID [facility] Last Admin: 10/19/24 09:23 Dose: 500 mg Documented By: LIZZETH Atorvastatin Calcium (Atorvastatin Calcium 10 Mg Tablet) 10 mg PO BEDTIME [facility] Last Admin: 10/18/24 22:51 Dose: 10 mg Documented By: CINDY Calcium Carbonate (Calcium Carbonate 750 Mg Tab.Chew) 750 mg PO Q4H PRN PRN Reason: Heartburn Calcium Carbonate/Cholecalciferol (Calcium + Vitamin D 250 Mg Tablet) 250 mg PO TID [facility] Last Admin: 10/19/24 09:22 Dose: 250 mg Documented By: LIZZETH Cyanocobalamin (Cyanocobalamin (Vitamin B-12) 1,000 Mcg/Ml Vial) 1,000 mcg IM Q30D [facility] Last Admin: 10/16/24 17:01 Dose: Not Given Documented By: NAEEM Non-Admin Reason: Patient Refused Enoxaparin Sodium (Enoxaparin Sodium 40 Mg/0.4 Ml Syringe) 40 mg SUBCUT Q24H [facility] Last Admin: 10/18/24 16:59 Dose: 40 mg Documented By: JENNY Ferrous Sulfate (Ferrous Sulfate 324 Mg Tablet.) 324 mg PO DAILY [facility] Last Admin: 10/19/24 09:23 Dose: 324 mg Documented By: LIZZETH Folic Acid (Folic Acid 1 Mg Tablet) 1 mg PO DAILY [facility] Last Admin: 10/19/24 09:22 Dose: 1 mg Documented By: LIZZETH Lactic Acid (Ammonium Lactate 12 % Lotion 226 Gm Bottle) 1 appl TOPICAL BID [facility]; Protocol Last Admin: 10/19/24 09:26 Dose: 1 appl Documented By: LIZZETH Magnesium Hydroxide (Milk Of Magnesia 30 Ml Oral.Susp) 30 ml PO DAILY PRN PRN Reason: Constipation Magnesium Oxide (Magnesium Oxide 400 Mg Tablet) 400 mg PO DAILY [facility] Last Admin: 10/19/24 09:23 Dose: 400 mg Documented By: LIZZETH Melatonin (Melatonin 3 Mg Tablet) 6 mg PO BEDTIME PRN PRN Reason: Insomnia Metoprolol Succinate (Metoprolol Succinate Er 50 Mg Tab.Er.24h) 50 mg PO DAILY [facility]; Protocol Last Admin: 10/19/24 09:22 Dose: 50 mg Documented By: LIZZETH Multi-Ingred Cream/Lotion/Oil/Oint (Mineral Oil/Petrolatum,White 106 Gm Tube) 1 appl TOPICAL BID [facility] Last Admin: 10/19/24 09:26 Dose: 1 appl Documented By: LIZZETH Multivitamins/Vitamin C (Multivitamin Tablet) 1 tab PO DAILY [facility] Last Admin: 10/19/24 09:23 Dose: 1 tab Documented By: LIZZETH Naltrexone HCl (Naltrexone Hcl 50 Mg Tablet) 50 mg PO DAILY [facility] Last Admin: 10/19/24 09:23 Dose: 50 mg Documented By: LIZZETH Omeprazole (Omeprazole 20 Mg Capsule.) 20 mg PO DAILY [facility] Last Admin: 10/19/24 09:22 Dose: 20 mg Documented By: LIZZETH Ondansetron HCl (Ondansetron Hcl 4 Mg/2 Ml Vial) 4 mg IVPUSH Q8H PRN PRN Reason: Nausea and Vomiting Pharmacy Consult (Consult Rx Etoh Phenob Im/Po) 1 each MISCELLANE ONCE PRN; Protocol PRN Reason: Consult order Phenobarbital (Phenobarbital 30 Mg Tablet) 30 mg PO BID [facility] Stop: 10/20/24 21:01 Last Admin: 10/19/24 09:23 Dose: 30 mg Documented By: LIZZETH Phenobarbital (Phenobarbital 30 Mg Tablet) 30 mg PO DAILY [facility] Stop: 10/22/24 09:01 Pyridoxine HCl (Pyridoxine Hcl (Vitamin B6) 50 Mg Tablet) 50 mg PO DAILY [facility] Last Admin: 10/19/24 09:23 Dose: 50 mg Documented By: LIZZETH Sodium Chloride (0.9 % Sodium Chloride Flush 3 Ml Syringe) 3 ml IVFLUSH QSHIFT [facility] Last Admin: 10/19/24 09:14 Dose: 3 ml Documented By: LIZZETH Thiamine HCl (Thiamine Hcl 100 Mg Tablet) 100 mg PO DAILY [facility] Last Admin: 10/19/24 09:22 Dose: 100 mg Documented By: LIZZETH Vitamin D (Cholecalciferol (Vitamin D3) 25 Mcg Tablet) 50 mcg PO DAILY [facility] Last Admin: 10/19/24 09:22 Dose: 50 mcg Documented By: LIZZETH Labs 10/19/24 06:45 10/19/24 06:45 Labs: Laboratory Results - last 24 hr 10/17/24 10/19/24 15:08 06:45 MCV 86.3 MCH 28.1 MCHC 32.6 RDW 15.9 Plt Count 133 L MPV 9.3 L Absolute Nucleated RBC 0.000 Nucleated RBC % (auto) 0.0 Anion Gap 11 L Estim Creat Clear Calc 95.5 Estimated GFR > 60 Random Glucose 92 Calcium 8.3 L Magnesium 1.2 L* Total Bilirubin 0.5 Direct Bilirubin 0.3 AST 18 ALT < 6 Alkaline Phosphatase 105 Total Protein 6.3 L Albumin 2.6 L Stl C. cayetanensis PCR Not Detected Stool Rotavirus A PCR Not Detected Stl Adenov F 40/41 PCR Not Detected Stool Astrovirus (PCR) Not Detected Stool Campylobacter PCR Not Detected Stool Cryptosporidium PCR Not Detected Stl Sh Tox Pr E STEC PCR Not Detected Stool E coli O157 PCR Not applicable Stl Enterotoxigenic E PCR Not Detected Stool EPEC (PCR) Not Detected Stool EAEC (PCR) Not Detected Stl E. histolytica PCR Not Detected Stool Giardia Lamblia PCR Not Detected Stl P. shigelloides PCR Not Detected Stool Salmonella PCR Not Detected Stool Sapovirus (PCR) Not Detected Stl Shigella/EIEC PCR Not Detected St Y.enterocolitica PCR Not Detected Stool Vibrio (PCR) Not Detected Stl Vibrio cholerae PCR Not Detected Stl Norovirus GI/GII PCR Not Detected Assessment and Plan (1) Alcohol use disorder: Status: Acute Plan 64M PMH hypertension, hyperlipidemia, anemia, chronic venous stasis dermatitis, alcohol dependence, history of DVT no longer on anticoagulation, left renal cancer status post partial nephrectomy, gout presented with weakness inability to ambulate complicated by alcohol withdrawal Alcohol dependence with acute withdrawal Continue phenobarb, monitor CIWA Continue vitamin supplements Chronic venous stasis dermatitis Wound care acute hypomagnesemia replace and monitor Generalized weakness PT eval Hypertension Continue metoprolol Hyperlipidemia Continue statin DVT prophylaxis with Lovenox Full Code reason for continued hospitalization: hypomag Quality Stroke Does the patient have a stroke diagnosis?: No VTE Prior VTE?: No VTE Risk Level:: Medical - moderate - high VTE Device Contraindication: Treatment Not Indicated VTE Drug Contraindication: N/A - Med Ordered
--- NOTE | 2024-10-19 15:23 | MHC.CM.PN ---
Per rounds, pt still acute for alcohol withdrawal, DCP is STR for weakness, he is not able to walk. Referrals out, [facility] is his first choice, they are following. CM to continue to assist with DC plan.
[2024-10-19] MEDS: Enoxaparin Sodium 40 MG/0.4 ML SYRINGE SUBCUT (16:45)
[2024-10-19] MEDS: Magnesium Oxide 400 MG TABLET 800 MG PO (16:45)
[2024-10-19] MEDS: Atorvastatin Calcium 10 MG TABLET PO (21:46)
[2024-10-20 03:39] VITALS: BP 122/66; PULSE 64; RESP 16; TEMP 36.2; O2SAT 95
[2024-10-20 06:55] LABS: Hematocrit 24.8 % (42.0-52.0); Hemoglobin 8.1 g/dl (14.0-18.0); Mean Corpuscular HGB Conc 32.7 g/dl (31.0-36.0); Mean Corpuscular Hemoglobin 28.1 pg (27.0-33.0); Mean Corpuscular Volume 86.1 fL (80.0-98.0); Mean Platelet Volume 8.7 fL (9.4-12.4); Platelet Count 115 X10*3/uL (160-400); Red Blood Count 2.88 X10*6/uL (4.60-5.80); Red Cell Distribution Width 15.9 % (11.0-16.0); White Blood Count 6.2 X10*3/uL (4.8-10.8)
[2024-10-20 07:13] LABS: Anion Gap 12 (12-20); Blood Urea Nitrogen 18 mg/dL (9-16); Calcium 8.4 mg/dL (8.4-10.2); Carbon Dioxide 25 mmol/L (22-29); Chloride 102 mmol/L (96-108); Creatinine Clr Calc Pharmacy 92.4; Estimated Glomerular Filt Rate > 60; Glucose Random 94 mg/dL (60-115); Magnesium 1.7 mg/dL (1.6-2.6); Potassium 4.1 mmol/L (3.3-5.1); Sodium 135 mmol/L (135-145)
[2024-10-20 07:34] VITALS: BP 125/67; PULSE 64; RESP 18; TEMP 36.6; O2SAT 97
[2024-10-20] MEDS: Thiamine HCL 100 MG TABLET PO (09:21)
[2024-10-20] MEDS: Naltrexone HCl 50 MG TABLET PO (09:21)
[2024-10-20] MEDS: Magnesium Oxide 400 MG TABLET 800 MG PO ×2 (09:21→16:08)
[2024-10-20] MEDS: Omeprazole 20 MG CAPSULE.DR PO (09:21)
[2024-10-20] MEDS: Cholecalciferol (Vitamin D3) 25 MCG TABLET 50 MCG PO (09:21)
[2024-10-20] MEDS: Calcium + Vitamin D 250 MG TABLET PO ×3 (09:21→19:45)
[2024-10-20] MEDS: Folic Acid 1 MG TABLET PO (09:21)
[2024-10-20] MEDS: Ferrous Sulfate 324 MG TABLET.DR PO (09:22)
[2024-10-20] MEDS: Metoprolol Succinate ER 50 MG TAB.ER.24H PO (09:22)
[2024-10-20] MEDS: Pyridoxine HCl (Vitamin B6) 50 MG TABLET PO (09:22)
[2024-10-20] MEDS: allopurinoL 300 MG TABLET PO (09:22)
[2024-10-20] MEDS: PHENobarbitaL 30 MG TABLET PO ×2 (09:22→19:45)
[2024-10-20] MEDS: Ascorbic Acid 500 MG TABLET PO ×2 (09:22→19:45)
[2024-10-20] MEDS: Multivitamin TABLET 1 TAB PO (09:22)
[2024-10-20] MEDS: 0.9 % Sodium Chloride Flush 3 ML SYRINGE IVFLUSH ×3 (09:22→19:47)
--- NOTE | 2024-10-20 10:42 | MHC.CM.PN ---
IMM 10/20/24, EMR REVIEWED, PT W/FLUID OVERLOAD/POLLY, CM MET W/PT WHO REPORTS HE LIVES ALONE, AMBULATES INDEP W/WALKER AND DOES OWN ADLS/SHOWERS, PT REPORTS HE HAS A CPAP, WALKER, SHOWER CHAIR AND IS HAVING A WALK IN SHOWER INSTALLED, PT ALSO REPORTS GRAB BARS WHEREVER THERE ARE STEPS AND NOW HAS A BAR ON HIS BED, PT REPORTS HIS CURRENT GOAL IS TO RETURN HOME W/[employer]. PT VERIFIES PCP IS JAZM[facility]N JEFFERS AND HCP ON FILE.
[2024-10-20] MEDS: Ammonium Lactate 12 % Lotion 226 GM BOTTLE 1 APPL TOPICAL ×2 (10:44→19:46)
[2024-10-20] MEDS: Mineral Oil/Petrolatum,White 106 GM Tube 1 APPL TOPICAL ×2 (10:45→19:46)
--- NOTE | 2024-10-20 11:24 | HO.PM.IMPN ---
Subjective Subjective Date of Service: 10/20/24 Interval History: weakness Physical Exam Vital Signs: Vital Signs: Last Vital Signs Temp 97.8 F 10/20/24 07:34 Pulse 64 10/20/24 07:34 Resp 18 10/20/24 07:34 BP 125/67 10/20/24 07:34 Pulse Ox 97 10/20/24 07:34 O2 Del Method Room Air 10/20/24 07:34 BMI result Body Mass Index 34.4 General: AOx3, dissheveled, In no acute distress Resp: CTA bilaterally CVS: S1, S2, RRR GI: +BS, NT, no distention Skin: Warm, dry Extremities: 2-3+ bilateral pitting edema with severe bilateral venous stasis dermatitis. Right lower extremity ulcerations around ankles at site of sock bands. As pictured below. Psych: Appropriate affect Objective Data Active Medications Acetaminophen (Acetaminophen 325 Mg Tablet) 650 mg PO Q6H PRN PRN Reason: Pain, Mild 1-3,fever,headache Allopurinol (Allopurinol 300 Mg Tablet) 300 mg PO DAILY [facility] Last Admin: 10/20/24 09:22 Dose: 300 mg Documented By: JUAN DAVID Ascorbic Acid (Ascorbic Acid 500 Mg Tablet) 500 mg PO BID [facility] Last Admin: 10/20/24 09:22 Dose: 500 mg Documented By: JUAN DAVID Atorvastatin Calcium (Atorvastatin Calcium 10 Mg Tablet) 10 mg PO BEDTIME [facility] Last Admin: 10/19/24 21:46 Dose: 10 mg Documented By: SAMY Calcium Carbonate (Calcium Carbonate 750 Mg Tab.Chew) 750 mg PO Q4H PRN PRN Reason: Heartburn Calcium Carbonate/Cholecalciferol (Calcium + Vitamin D 250 Mg Tablet) 250 mg PO TID [facility] Last Admin: 10/20/24 09:21 Dose: 250 mg Documented By: JUAN DAVID Cyanocobalamin (Cyanocobalamin (Vitamin B-12) 1,000 Mcg/Ml Vial) 1,000 mcg IM Q30D [facility] Last Admin: 10/16/24 17:01 Dose: Not Given Documented By: NAEEM Non-Admin Reason: Patient Refused Enoxaparin Sodium (Enoxaparin Sodium 40 Mg/0.4 Ml Syringe) 40 mg SUBCUT Q24H [facility] Last Admin: 10/19/24 16:45 Dose: 40 mg Documented By: ERWIN Ferrous Sulfate (Ferrous Sulfate 324 Mg Tablet.) 324 mg PO DAILY [facility] Last Admin: 10/20/24 09:22 Dose: 324 mg Documented By: JUAN DAVID Folic Acid (Folic Acid 1 Mg Tablet) 1 mg PO DAILY [facility] Last Admin: 10/20/24 09:21 Dose: 1 mg Documented By: JUAN DAVID Lactic Acid (Ammonium Lactate 12 % Lotion 226 Gm Bottle) 1 appl TOPICAL BID [facility]; Protocol Last Admin: 10/20/24 10:44 Dose: 1 appl Documented By: JUAN DAVID Magnesium Hydroxide (Milk Of Magnesia 30 Ml Oral.Susp) 30 ml PO DAILY PRN PRN Reason: Constipation [facility] Admin: 10/20/24 09:21 Dose: 800 mg Documented By: JUAN DAVID Melatonin (Melatonin 3 Mg Tablet) 6 mg PO BEDTIME PRN PRN Reason: Insomnia Metoprolol Succinate (Metoprolol Succinate Er 50 Mg Tab.Er.24h) 50 mg PO DAILY [facility]; Protocol Last Admin: 10/20/24 09:22 Dose: 50 mg Documented By: JUAN DAVID Multi-Ingred Cream/Lotion/Oil/Oint (Mineral Oil/Petrolatum,White 106 Gm Tube) 1 appl TOPICAL BID [facility] Last Admin: 10/20/24 10:45 Dose: 1 appl Documented By: JUAN DAVID Multivitamins/Vitamin C (Multivitamin Tablet) 1 tab PO DAILY [facility] Last Admin: 10/20/24 09:22 Dose: 1 tab Documented By: JUAN DAVID Naltrexone HCl (Naltrexone Hcl 50 Mg Tablet) 50 mg PO DAILY [facility] Last Admin: 10/20/24 09:21 Dose: 50 mg Documented By: JUAN DAVID Omeprazole (Omeprazole 20 Mg Capsule.) 20 mg PO DAILY [facility] Last Admin: 10/20/24 09:21 Dose: 20 mg Documented By: JUAN DAVID Ondansetron HCl (Ondansetron Hcl 4 Mg/2 Ml Vial) 4 mg IVPUSH Q8H PRN PRN Reason: Nausea and Vomiting Pharmacy Consult (Consult Rx Etoh Phenob Im/Po) 1 each MISCELLANE ONCE PRN; Protocol PRN Reason: Consult order Phenobarbital (Phenobarbital 30 Mg Tablet) 30 mg PO BID [facility] Stop: 10/20/24 21:01 Last Admin: 10/20/24 09:22 Dose: 30 mg Documented By: JUAN DAVID Phenobarbital (Phenobarbital 30 Mg Tablet) 30 mg PO DAILY [facility] Stop: 10/22/24 09:01 Pyridoxine HCl (Pyridoxine Hcl (Vitamin B6) 50 Mg Tablet) 50 mg PO DAILY [facility] Last Admin: 10/20/24 09:22 Dose: 50 mg Documented By: JUAN DAVID Sodium Chloride (0.9 % Sodium Chloride Flush 3 Ml Syringe) 3 ml IVFLUSH QSHIFT [facility] Last Admin: 10/20/24 09:22 Dose: 3 ml Documented By: JUAN DAVID Thiamine HCl (Thiamine Hcl 100 Mg Tablet) 100 mg PO DAILY [facility] Last Admin: 10/20/24 09:21 Dose: 100 mg Documented By: JUAN DAVID Vitamin D (Cholecalciferol (Vitamin D3) 25 Mcg Tablet) 50 mcg PO DAILY [facility] Last Admin: 10/20/24 09:21 Dose: 50 mcg Documented By: JUAN DAVID Labs 10/20/24 06:33 10/20/24 06:33 Labs: Laboratory Results - last 24 hr 10/20/24 06:33 MCV 86.1 MCH 28.1 MCHC 32.7 RDW 15.9 Plt Count 115 L MPV 8.7 L Absolute Nucleated RBC 0.000 Nucleated RBC % (auto) 0.0 Anion Gap 12 Estim Creat Clear Calc 92.4 Estimated GFR > 60 Random Glucose 94 Calcium 8.4 Magnesium 1.7 Assessment and Plan (1) Alcohol use disorder: Status: Acute Plan 64M PMH hypertension, hyperlipidemia, anemia, chronic venous stasis dermatitis, alcohol dependence, history of DVT no longer on anticoagulation, left renal cancer status post partial nephrectomy, gout presented with weakness inability to ambulate complicated by alcohol withdrawal Alcohol dependence with acute withdrawal Continue phenobarb, monitor CIWA Continue vitamin supplements much improved Chronic venous stasis dermatitis Wound care acute hypomagnesemia replaced Generalized weakness PT recs str Hypertension Continue metoprolol Hyperlipidemia Continue statin DVT prophylaxis with Lovenox Full Code reason for continued hospitalization: placement Quality Stroke Does the patient have a stroke diagnosis?: No VTE Prior VTE?: No VTE Risk Level:: Medical - moderate - high VTE Device Contraindication: Treatment Not Indicated VTE Drug Contraindication: N/A - Med Ordered
[2024-10-20 12:00] VITALS: BP 124/78; PULSE 86; RESP 18; TEMP 36.2; O2SAT 96
[2024-10-20 15:40] VITALS: BP 129/61; PULSE 55; RESP 20; TEMP 36.2; O2SAT 98
[2024-10-20] MEDS: Enoxaparin Sodium 40 MG/0.4 ML SYRINGE SUBCUT (16:08)
[2024-10-20 19:14] VITALS: BP 126/70; PULSE 70; RESP 20; TEMP 36.6; O2SAT 98
[2024-10-20] MEDS: Atorvastatin Calcium 10 MG TABLET PO (19:45)
[2024-10-21] VITALS (8 sets, daily range): BP systolic 106–154; BP diastolic 62–71; PULSE 63–92; RESP 18–21; TEMP 36.4–37.4; O2SAT 95–98
[2024-10-21] MEDS: 0.9 % Sodium Chloride Flush 3 ML SYRINGE IVFLUSH ×3 (08:18→21:13)
[2024-10-21] MEDS: Omeprazole 20 MG CAPSULE.DR PO (08:18)
[2024-10-21] MEDS: Ascorbic Acid 500 MG TABLET PO ×2 (08:18→21:12)
[2024-10-21] MEDS: Multivitamin TABLET 1 TAB PO (08:18)
[2024-10-21] MEDS: allopurinoL 300 MG TABLET PO (08:18)
[2024-10-21] MEDS: Cholecalciferol (Vitamin D3) 25 MCG TABLET 50 MCG PO (08:18)
[2024-10-21] MEDS: Naltrexone HCl 50 MG TABLET PO (08:18)
[2024-10-21] MEDS: PHENobarbitaL 30 MG TABLET PO (08:19)
[2024-10-21] MEDS: Folic Acid 1 MG TABLET PO (08:19)
[2024-10-21] MEDS: Magnesium Oxide 400 MG TABLET 800 MG PO ×2 (08:19→17:14)
[2024-10-21] MEDS: Metoprolol Succinate ER 50 MG TAB.ER.24H PO (08:19)
[2024-10-21] MEDS: Pyridoxine HCl (Vitamin B6) 50 MG TABLET PO (08:19)
[2024-10-21] MEDS: Ferrous Sulfate 324 MG TABLET.DR PO (08:19)
[2024-10-21] MEDS: Calcium + Vitamin D 250 MG TABLET PO ×3 (08:19→21:12)
[2024-10-21] MEDS: Thiamine HCL 100 MG TABLET PO (08:19)
[2024-10-21] MEDS: Ammonium Lactate 12 % Lotion 226 GM BOTTLE 1 APPL TOPICAL ×2 (08:20→21:12)
[2024-10-21] MEDS: Mineral Oil/Petrolatum,White 106 GM Tube 1 APPL TOPICAL ×2 (08:20→21:13)
--- NOTE | 2024-10-21 14:55 | P.PNIM_ITS ---
Subjective Subjective Date of Service: 10/21/24 Interval History: seen and evaluated Feels better overall no fever or chills CIWA of 0 no other events Review of Systems Review of Systems: Yes all other systems are reviewed and are negative Physical Exam 2 Vital Signs: Vital Signs: Last Vital Signs Temp 99.0 F 10/21/24 11:59 Pulse 66 10/21/24 11:59 Resp 18 10/21/24 11:59 BP 143/69 H 10/21/24 11:59 Pulse Ox 98 10/21/24 11:59 O2 Del Method Room Air 10/21/24 11:59 BMI result Body Mass Index 34.4 Const: Other: Constitutional : Awake, interactive, not in distress Neck : Normal inspection, Supple Cardiovascular : RRR, no JVP, chornic stasis dermatitis. +1 lower extremity edema Respiratory : fair bilateral air entry, no crackles, wheezes or rhonchi Gastrointestinal: soft, lax, Normal bowel sounds, Non tender Skin : Warm, Dry Neurological : Alert & oriented x3, No focal deficit Objective Data Active Medications Acetaminophen (Acetaminophen 325 Mg Tablet) 650 mg PO Q6H PRN PRN Reason: Pain, Mild 1-3,fever,headache Allopurinol (Allopurinol 300 Mg Tablet) 300 mg PO DAILY [facility] Last Admin: 10/21/24 08:18 Dose: 300 mg Documented By: JUAN DAVID Ascorbic Acid (Ascorbic Acid 500 Mg Tablet) 500 mg PO BID [facility] Last Admin: 10/21/24 08:18 Dose: 500 mg Documented By: JUAN DAVID Atorvastatin Calcium (Atorvastatin Calcium 10 Mg Tablet) 10 mg PO BEDTIME [facility] Last Admin: 10/20/24 19:45 Dose: 10 mg Documented By: SAMY Calcium Carbonate (Calcium Carbonate 750 Mg Tab.Chew) 750 mg PO Q4H PRN PRN Reason: Heartburn Calcium Carbonate/Cholecalciferol (Calcium + Vitamin D 250 Mg Tablet) 250 mg PO TID [facility] Last Admin: 10/21/24 08:19 Dose: 250 mg Documented By: JUAN DAVID Cyanocobalamin (Cyanocobalamin (Vitamin B-12) 1,000 Mcg/Ml Vial) 1,000 mcg IM Q30D [facility] Last Admin: 10/16/24 17:01 Dose: Not Given Documented By: NAEEM Non-Admin Reason: Patient Refused Enoxaparin Sodium (Enoxaparin Sodium 40 Mg/0.4 Ml Syringe) 40 mg SUBCUT Q24H [facility] Last Admin: 10/20/24 16:08 Dose: 40 mg Documented By: JUAN DAVID Ferrous Sulfate (Ferrous Sulfate 324 Mg Tablet.) 324 mg PO DAILY [facility] Last Admin: 10/21/24 08:19 Dose: 324 mg Documented By: JUAN DAVID Folic Acid (Folic Acid 1 Mg Tablet) 1 mg PO DAILY [facility] Last Admin: 10/21/24 08:19 Dose: 1 mg Documented By: JUAN DAVID Lactic Acid (Ammonium Lactate 12 % Lotion 226 Gm Bottle) 1 appl TOPICAL BID [facility]; Protocol Last Admin: 10/21/24 08:20 Dose: 1 appl Documented By: JUAN DAVID Magnesium Hydroxide (Milk Of Magnesia 30 Ml Oral.Susp) 30 ml PO DAILY PRN PRN Reason: Constipation Magnesium Oxide (Magnesium Oxide 400 Mg Tablet) 800 mg PO BIDPC [facility] Last Admin: 10/21/24 08:19 Dose: 800 mg Documented By: JUAN DAVID Melatonin (Melatonin 3 Mg Tablet) 6 mg PO BEDTIME PRN PRN Reason: Insomnia Metoprolol Succinate (Metoprolol Succinate Er 50 Mg Tab.Er.24h) 50 mg PO DAILY [facility]; Protocol Last Admin: 10/21/24 08:19 Dose: 50 mg Documented By: JUAN DAVID Multi-Ingred Cream/Lotion/Oil/Oint (Mineral Oil/Petrolatum,White 106 Gm Tube) 1 appl TOPICAL BID [facility] Last Admin: 10/21/24 08:20 Dose: 1 appl Documented By: JUAN DAVID Multivitamins/Vitamin C (Multivitamin Tablet) 1 tab PO DAILY [facility] Last Admin: 10/21/24 08:18 Dose: 1 tab Documented By: JUAN DAVID Naltrexone HCl (Naltrexone Hcl 50 Mg Tablet) 50 mg PO DAILY [facility] Last Admin: 10/21/24 08:18 Dose: 50 mg Documented By: JUAN DAVID Omeprazole (Omeprazole 20 Mg Capsule.) 20 mg PO DAILY [facility] Last Admin: 10/21/24 08:18 Dose: 20 mg Documented By: JUAN DAVID Ondansetron HCl (Ondansetron Hcl 4 Mg/2 Ml Vial) 4 mg IVPUSH Q8H PRN PRN Reason: Nausea and Vomiting Pharmacy Consult (Consult Rx Etoh Phenob Im/Po) 1 each MISCELLANE ONCE PRN; Protocol PRN Reason: Consult order Phenobarbital (Phenobarbital 30 Mg Tablet) 30 mg PO DAILY [facility] Stop: 10/22/24 09:01 Last Admin: 10/21/24 08:19 Dose: 30 mg Documented By: JUAN DAVID Pyridoxine HCl (Pyridoxine Hcl (Vitamin B6) 50 Mg Tablet) 50 mg PO DAILY [facility] Last Admin: 10/21/24 08:19 Dose: 50 mg Documented By: JUAN DAVID Sodium Chloride (0.9 % Sodium Chloride Flush 3 Ml Syringe) 3 ml IVFLUSH QSHIFT [facility] Last Admin: 10/21/24 08:18 Dose: 3 ml Documented By: JUAN DAVID Thiamine HCl (Thiamine Hcl 100 Mg Tablet) 100 mg PO DAILY [facility] Last Admin: 10/21/24 08:19 Dose: 100 mg Documented By: JUAN DAVID Vitamin D (Cholecalciferol (Vitamin D3) 25 Mcg Tablet) 50 mcg PO DAILY [facility] Last Admin: 10/21/24 08:18 Dose: 50 mcg Documented By: JUAN DAVID Labs 10/20/24 06:33 10/20/24 06:33 Assessment and Plan (1) Edema of both lower legs: Status: Acute (2) Alcohol withdrawal: Status: Acute Plan 64M PMH hypertension, hyperlipidemia, anemia, chronic venous stasis dermatitis, alcohol dependence, history of DVT no longer on anticoagulation, left renal cancer status post partial nephrectomy, gout presented with weakness inability to ambulate complicated by alcohol withdrawal Alcohol dependence with acute withdrawal treated with phenobarb, CIWA of 0 Continue vitamin supplements much improved Chronic venous stasis dermatitis Wound care acute hypomagnesemia replaced Generalized weakness PT recs str Hypertension Continue metoprolol Hyperlipidemia Continue statin DVT prophylaxis with Lovenox Full Code reason for continued hospitalization: pending placement Quality Stroke Does the patient have a stroke diagnosis?: No VTE Prior VTE?: No VTE Risk Level:: Medical - moderate - high VTE Device Contraindication: Treatment Not Indicated VTE Drug Contraindication: N/A - Med Ordered
[2024-10-21] MEDS: Enoxaparin Sodium 40 MG/0.4 ML SYRINGE SUBCUT (17:13)
--- NOTE | 2024-10-21 17:48 | HO.WOUND ---
Wound Consult: Initial 64yr old?[place] [facility] [place] See progress notes and H&P for detailed history.? Wound consult placed for Bilateral Lower Legs.? Patient agreeable to assessment and photo documentation.? Bilateral lower legs were noted for venous dermatitis - Pt denies using creams consistently at home. Etiology: ??Venous Wounds Present on Admission Measurements:various measurements Wound Bed: red moist clean tissue Drainage / Odor: serosang drainage noted Edges: ? irregular Michelle wound: thick hyperkerotinized layers in place mal odor noted when cleansing ? No Induration, Fluctuance or Warmth noted Pain: denies Goals of Treatment: ? Durafiber for moisture management Recommendations: 1. Turn and Reposition every 2 hours and as needed for patient comfort.? Use pillows or wedges to support off loading positions. 2. Off Load all bony prominences with use of pillows and heel boots if needed.? Apply Preventative foams where needed. ? 3. Monitor for incontinence and moisture control, use barrier creams when needed for prevention and treatment. 4. Provide adequate and supplemental nutrition.? 5. Order or Continue low air loss mattress. 6. When applicable maintain blood glucose levels per Providers order. 7. Bilateral Lower Legs - Cleanse with Karlo Salisbury and warm water. Apply Ammonium Lactate to lower legs - apply thick to scaled thickened tissue areas. Apply Durafiber AG to wound beds cover with dry gauze, ABD pad and gauze wrap. Change every other day. Re-consult wound care Nurse for wound deterioration or wound changes.
[2024-10-21] MEDS: Atorvastatin Calcium 10 MG TABLET PO (21:12)
[2024-10-22 04:00] VITALS: BP 113/61; PULSE 60; RESP 19; O2SAT 95
[2024-10-22 06:38] LABS: MANUAL DIFF FLAG NO
[2024-10-22 06:45] LABS: Basophils Percent Auto 0.8 % (0-2); Eosinophils Absolute Auto 0.2 X10*3/uL (0.0-0.4); Eosinophils Percent Auto 3.1 % (0-4); Hematocrit 25.4 % (42.0-52.0); Hemoglobin 8.3 g/dl (14.0-18.0); Imm Gran Abs Auto 0.02 X10*3/uL (0.00-0.03); Imm Gran Pct Auto 0.4 % (0.0-0.4); Lymphocytes Absolute Auto 1.8 X10*3/uL (1.2-4.9); Lymphocytes Percent Auto 34.8 % (20-40); Mean Corpuscular HGB Conc 32.7 g/dl (31.0-36.0); Mean Corpuscular Hemoglobin 27.8 pg (27.0-33.0); Mean Corpuscular Volume 84.9 fL (80.0-98.0); Mean Platelet Volume 9.2 fL (9.4-12.4); Monocytes Absolute Auto 0.9 X10*3/uL (0.1-1.2); Neutrophils Absolute Auto 2.3 x10*3/uL (2.0-8.3); Neutrophils Percent Auto 43.9 % (45-73); Platelet Count 107 X10*3/uL (160-400); Red Blood Count 2.99 X10*6/uL (4.60-5.80); Red Cell Distribution Width 15.9 % (11.0-16.0); White Blood Count 5.2 X10*3/uL (4.8-10.8)
[2024-10-22 06:59] LABS: Anion Gap 10 (12-20); Blood Urea Nitrogen 18 mg/dL (9-16); Calcium 8.6 mg/dL (8.4-10.2); Carbon Dioxide 25 mmol/L (22-29); Chloride 99 mmol/L (96-108); Estimated Glomerular Filt Rate > 60; Glucose Random 95 mg/dL (60-115); Potassium 4.1 mmol/L (3.3-5.1); Sodium 130 mmol/L (135-145)
[2024-10-22 07:38] VITALS: BP 111/60; PULSE 61; RESP 16; TEMP 37.2; O2SAT 95
[2024-10-22] MEDS: Ammonium Lactate 12 % Lotion 226 GM BOTTLE 1 APPL TOPICAL (08:43)
[2024-10-22] MEDS: Mineral Oil/Petrolatum,White 106 GM Tube 1 APPL TOPICAL (08:43)
[2024-10-22] MEDS: allopurinoL 300 MG TABLET PO (08:43)
[2024-10-22] MEDS: Naltrexone HCl 50 MG TABLET PO (08:44)
[2024-10-22] MEDS: Calcium + Vitamin D 250 MG TABLET PO (08:44)
[2024-10-22] MEDS: PHENobarbitaL 30 MG TABLET PO (08:44)
[2024-10-22] MEDS: Thiamine HCL 100 MG TABLET PO (08:44)
[2024-10-22] MEDS: Cholecalciferol (Vitamin D3) 25 MCG TABLET 50 MCG PO (08:44)
[2024-10-22] MEDS: Pyridoxine HCl (Vitamin B6) 50 MG TABLET PO (08:44)
[2024-10-22] MEDS: Folic Acid 1 MG TABLET PO (08:44)
[2024-10-22] MEDS: Magnesium Oxide 400 MG TABLET 800 MG PO (08:44)
[2024-10-22] MEDS: Ferrous Sulfate 324 MG TABLET.DR PO (08:45)
[2024-10-22] MEDS: Omeprazole 20 MG CAPSULE.DR PO (08:45)
[2024-10-22] MEDS: Metoprolol Succinate ER 50 MG TAB.ER.24H PO (08:45)
[2024-10-22] MEDS: Ascorbic Acid 500 MG TABLET PO (08:45)
[2024-10-22] MEDS: Multivitamin TABLET 1 TAB PO (08:45)
[2024-10-22] MEDS: 0.9 % Sodium Chloride Flush 3 ML SYRINGE IVFLUSH (08:55)
--- NOTE | 2024-10-22 10:32 | P.DS_ITS ---
DS: Providers Provider Date of Service: 10/20/24 <Dveon Santillan MD - Last Filed: 10/20/24 15:16> 10/22/24 <Lorna Nichols MD - Last Filed: 10/22/24 11:37> Date of admission: 10/16/24 16:16 <Devon Santillan MD - Last Filed: 10/20/24 15:16> Date of discharge: 10/20/24 <Devon Santillan MD - Last Filed: 10/20/24 15:16> 10/22/24 <Lorna Nichols MD - Last Filed: 10/22/24 11:37> Primary care physician: Unknown Physician <Devon Santillan MD - Last Filed: 10/20/24 15:16> Consults: 10/16/24 18:02 Consult to Wound Care Routine Reason for consultation: Severe chronic venous stasis dermatitis 10/16/24 18:16 Addiction Medicine Routine Consulting Provider: Addiction Covering Reason for consultation: Alcohol use disorder <Devon Santillan MD - Last Filed: 10/20/24 15:16> DS: Diagnosis Discharge Diagnosis (1) Alcohol use disorder: Status: Acute <Devon Santillan MD - Last Filed: 10/20/24 15:16> DS: Summary Hospital Course Hospital Course: from initial hpi: 64-year-old male with a PMH significant for?HTN, HLD, anemia, chronic venous stasis dermatitis, alcohol use disorder, hx of DVT no longer on anticoagulation, hx of leg edema s/p venous ablation in 1998, hx of left renal cancer s/p partial nephrectomy in 2023, CKD 3, and gout who presents to the ED with for evaluation of lower extremity weakness and inability to ambulate. Pt reports he fell asleep in his recliner yesterday evening at around 20:00 and when he awoke early this morning he found that he could not move his legs or get out of his chair. Reports normally ambulates with a walker at baseline. Pt also complains of right hip pain secondary to slipping on ice last week without fall. Pt reports that he drinks ?a few? drinks daily ?just to get rid of the shakes? which usually began sometime during early afternoon. Pt noted to arrive at the ED soiled in both urine and feces. Pt complains of nausea and vomiting, though states this did not occur until after he was given phenobarbital. Mild headache, some diaphoresis. Denies visual, auditory, or tactile hallucinations. Denies increase in anxiety. No chest pain/pressure, palpitations. Denies shortness or breath or difficulty breathing. In the ED pt was tachycardic up to 102, tachypneic up to 22, hypertensive as high as 168/57 in low-grade fever of 99.9. Labs were significant for alk-phos 161 and ethyl alcohol level of 277, otherwise grossly unremarkable and around baseline for pt. No leukocytosis. Stable anemia 9.5/28.6. No significant electrolyte abnormalities. Renal function baseline. Troponin negative. Tested negative for flu, RSV, and COVID. CXR showed no acute airspace disease. Hip and pelvis x-ray showing moderate osteoarthritis but negative for acute fracture of right hip. X-rays of right knee, ankle, and foot negative for acute fracture. X-ray of left foot showed old traumatic deformities of distal 2nd, 3rd, and 5th metatarsals. EKG demonstrated normal sinus rhythm with left anterior fascicular block and T-wave inversions in anterior lateral leads. After pt became tachycardic and tachypneic in the ED, pt was started on phenobarb protocol. Pt will be admitted to the hospital for treatment and further evaluation of generalized weakness in the setting of acute alcohol withdrawal. hospital course: Patient was admitted for alcohol dependence with acute withdrawal. Was treated with phenobarbital and CIWA improved to 0. Given vitamin supplements. For chronic venous stasis dermatitis was continued with wound care. For acute hypomagnesemia received replacement. For generalized weakness seen by physical therapy recommended short-term rehab to which patient will be discharged expected to require less than 30 days. For hypertension was continued with metoprolol. For hyperlipidemia continued on statin. The patient will likely need less than 30 days of SNF stay. <Devon Santillan MD - Last Filed: 10/20/24 15:16> Time Attestation Discharge Coordination Time (in mins): 34 <Devon Santillan MD - Last Filed: 10/20/24 15:16> Quality: Safe Use of Opioids Does Pt have an Active Cancer Diagnosis on the Problem List?: No <Devon Santillan MD - Last Filed: 10/20/24 15:16> Quality: Stroke Does the patient have a stroke diagnosis?: No <Devon Santillan MD - Last Filed: 10/20/24 15:16> Physical Exam Vital Signs: Vital Signs: Last Vital Signs Temp 97.8 F 10/20/24 07:34 Pulse 64 10/20/24 07:34 Resp 18 10/20/24 07:34 BP 125/67 10/20/24 07:34 Pulse Ox 97 10/20/24 07:34 O2 Del Method Room Air 10/20/24 07:34 BMI result Body Mass Index 34.4 <Devon Santillan MD - Last Filed: 10/20/24 15:16> General: AOx3, dissheveled, In no acute distress Resp: CTA bilaterally CVS: S1, S2, RRR GI: +BS, NT, no distention Skin: Warm, dry Extremities: 2-3+ bilateral pitting edema with severe bilateral venous stasis dermatitis. Right lower extremity ulcerations around ankles at site of sock bands. As pictured below. Psych: Appropriate affect <Devon Santillan MD - Last Filed: 10/20/24 15:16> Const: Other: Constitutional : Awake, interactive, not in distress Neck : Normal inspection, Supple Cardiovascular : RRR, no JVP, chornic stasis dermatitis. +1 lower extremity edema Respiratory : fair bilateral air entry, no crackles, wheezes or rhonchi Gastrointestinal: soft, lax, Normal bowel sounds, Non tender Skin : Warm, Dry, chronic skin changes Neurological : Alert & oriented x3, No focal deficit <Lorna Nichols MD - Last Filed: 10/22/24 11:37> DS: Data Data Completed and Pending Completed studies during hospitalization [Text1]: Procedures Detoxification Services for Substance Abuse Treatment (10/30/22) Drainage of Abdomen Subcutaneous Tissue and Fascia, Open Approach (05/13/24) Excision of Descending Colon, Via Natural or Artificial Opening Endoscopic, Diagnostic (09/25/23) Excision of Duodenum, Via Natural or Artificial Opening Endoscopic, Diagnostic (09/25/23) Excision of Stomach, Pylorus, Via Natural or Artificial Opening Endoscopic, Diagnostic (09/25/23) Transfusion of Nonautologous Red Blood Cells into Peripheral Vein, Percutaneous Approach (09/25/23) <Devon Santillan MD - Last Filed: 10/20/24 15:16> Labs on day of discharge: Laboratory Results - last 24 hr 10/20/24 06:33 WBC 6.2 RBC 2.88 L Hgb 8.1 L Hct 24.8 L MCV 86.1 MCH 28.1 MCHC 32.7 RDW 15.9 Plt Count 115 L MPV 8.7 L Absolute Nucleated RBC 0.000 Nucleated RBC % (auto) 0.0 Sodium 135 Potassium 4.1 Chloride 102 Carbon Dioxide 25 Anion Gap 12 BUN 18 H Creatinine 0.92 Estim Creat Clear Calc 92.4 Estimated GFR > 60 Random Glucose 94 Calcium 8.4 Magnesium 1.7 <Devon Santillan MD - Last Filed: 10/20/24 15:16> Imaging Chest x-ray: Radiologist's impression: ITS Impressions Ankle X-Ray 10/16/24 07:10 IMPRESSION: 1.There are findings suspicious for and age indeterminant fracture of the proximal fifth metatarsal only seen on the lateral projection. This is not definitive. Recommend correlating with dedicated plain films of the right foot. 2. There is no additional fracture or malalignment. 3. Mild degenerative arthritis in the tibiotalar joint. 4. Large plantar calcaneal spur. 5. There appears to be diffuse periosteal thickening of the distal tibial and fibular metadiaphyses. This is nonspecific. Electronically signed by: Kaushal Trujillo MD 10/16/2024 09:15 AM EST RP Knee X-Ray 10/16/24 07:10 IMPRESSION: No evidence of fracture of the right knee. Electronically signed by: Eric Juarez MD 10/16/2024 09:02 AM EST RP Ankle X-Ray 10/16/24 07:12 IMPRESSION: No acute fracture or dislocation. No regional osteopenia/osteoporosis suggesting immobilization among other etiologies. Edema pattern, bimalleolar. Please refer to the left foot x-ray. Electronically signed by: Daniel Lundberg MD 10/16/2024 09:09 AM EST RP Chest X-Ray 10/16/24 07:24 IMPRESSION: No acute airspace disease. Electronically signed by: Daniel Lundberg MD 10/16/2024 08:57 AM EST RP Hip/Pelvis X-Ray 10/16/24 08:00 IMPRESSION: Moderate osteoarthritis. No evidence of fracture of the right hip. Electronically signed by: Eric Juarez MD 10/16/2024 09:04 AM EST RP Foot X-Ray 10/16/24 12:12 IMPRESSION: I do not see a gross acute fracture. Edema pattern distal foot. Electronically signed by: Daniel Lundberg MD 10/16/2024 12:51 PM EST RP Foot X-Ray 10/16/24 12:15 IMPRESSION: Old traumatic deformities distal second and third and fifth metatarsals. Osteopenia versus osteoporosis. Electronically signed by: Daniel Lundberg MD 10/16/2024 12:48 PM EST RP <Lorna Nichols MD - Last Filed: 10/22/24 11:37> Discharge Plan Discharge Anticipated Discharge Date/Time: 10/20/24 11:25 <Devon Santillan MD - Last Filed: 10/20/24 15:16> Patient Disposition: Xfer SNF <Devon Santillan MD - Last Filed: 10/20/24 15:16> Discharge Diagnosis: etoh, hypomag <Devon Santillan MD - Last Filed: 10/20/24 15:16> etoh, hypomag <Lorna Nichols MD - Last Filed: 10/22/24 11:37> [facility] [Outside] - 1 Week Wes Krause MD [Physician] - 1 Week <Devon Santillan MD - Last Filed: 10/20/24 15:16> Discharge Medications: New ammonium lactate 12 % Lotion 1 appl topical BID Qty: 400 0RF Protocol: Apply to: Apply to: Lower extremities bilaterally Rx Instructions: Bilateral lower extremities Continued metoprolol succinate 50 mg tablet extended release 24 hr 50 mg PO DAILY magnesium oxide 400 mg (241.3 mg magnesium) tablet 400 mg PO DAILY Qty: 10 0RF rosuvastatin 5 mg Tablet 5 mg PO BEDTIME folic acid 1 mg tablet 1 mg PO DAILY Qty: 30 0RF naltrexone 50 mg tablet 50 mg PO DAILY thiamine HCl (vitamin B1) [Vitamin B-1] 100 mg Tablet 100 mg PO DAILY petrolatum Ointment 1 appl topical BID pyridoxine (vitamin B6) [Vitamin B-6] 50 mg Tablet 50 mg PO DAILY calcium carbonate-vitamin D3 [Oyster Shell Calcium-Vit D3] 250 mg-3.125 mcg (125 unit) tablet 1 tab PO TID cholecalciferol (vitamin D3) [Vitamin D3] 50 mcg (2,000 unit) Tablet 50 mcg PO DAILY [id number] fum-folic ac 7.5 mg iron-400 mcg tablet 1 tab PO DAILY lidocaine 5 % Cream 1 appl TOPICAL BID omeprazole 20 mg Capsule,Delayed Release(Dr/Ec) 20 mg PO DAILY ferrous sulfate 325 mg (65 mg iron) Tablet,Delayed Release (Dr/Ec) 325 mg PO DAILY cyanocobalamin (vitamin B-12) 1,000 mcg/mL solution 1,000 mcg IM Q30D allopurinol 300 mg tablet 300 mg PO DAILY ascorbate calcium (vitamin C) 500 mg tablet 500 mg PO BID <Devon Santillan MD - Last Filed: 10/20/24 15:16> Discharge Orders: Discharge Order (Routine); Ordered 10/22/24 Ordered By: Lorna Nichols <Devon Santillan MD - Last Filed: 10/20/24 15:16> Diet: Advance to usual diet <Devon Santillan MD - Last Filed: 10/20/24 15:16> Advance to usual diet <Lorna Nichols MD - Last Filed: 10/22/24 11:37> Activity on Discharge: As tolerated <Devon Santillan MD - Last Filed: 10/20/24 15:16> As tolerated <Lorna Nichols MD - Last Filed: 10/22/24 11:37> Stand Alone Forms: Patient Portal Discharge page <Devon Santillan MD - Last Filed: 10/20/24 15:16> Print Language: Danish <Devon Santillan MD - Last Filed: 10/20/24 15:16> Care Plan Goals: recovery <Devon Santillan MD - Last Filed: 10/20/24 15:16> Health Concerns: etoh <Devon Santillan MD - Last Filed: 10/20/24 15:16> Plan of Treatment: avoid etoh, rehab, <Devon Santillan MD - Last Filed: 10/20/24 15:16> Assessment: see above <Devon Santillan MD - Last Filed: 10/20/24 15:16>
[2024-10-22 11:19] VITALS: BP 114/61; PULSE 62; RESP 18; TEMP 37.1; O2SAT 97
[2024-10-22 11:39] LABS: Anion Gap 11 (12-20); Blood Urea Nitrogen 16 mg/dL (9-16); Calcium 8.7 mg/dL (8.4-10.2); Carbon Dioxide 26 mmol/L (22-29); Chloride 98 mmol/L (96-108); Creatinine Clr Calc Pharmacy 92.4; Estimated Glomerular Filt Rate > 60; Glucose Random 105 mg/dL (60-115); Sodium 131 mmol/L (135-145)
--- NOTE | 2024-10-22 11:43 | MHC.CM.PN ---
Patient is discharged to [facility] today. Transport is scheduled 2:30pm pickle sorter. All dc info has been sent to the facility.
== END 2024-10-22 13:48 | disposition skilled nursing facility (03) | DRG 775 ==
LOC: HO.ED 15:04 → HO.EDOVER 16:16 → HO.IMC 18:55
PROVIDERS: Internal Medicine; Student in an Organized Health Care Education/Training Program; Admitting Provider Student in an Organized Health Care Education/Training Program; Emergency Provider Emergency Medicine; Visit Provider Student in an Organized Health Care Education/Training Program
DX: F10.239 Alcohol dependence with withdrawal, unspecified (principal); F10.229 Alcohol dependence with intoxication, unspecified; D63.1 Anemia in chronic kidney disease; I87.311 Chronic venous hypertension (idiopathic) with ulcer of right lower extremity; L97.819 Non-pressure chronic ulcer of other part of right lower leg with unspecified severity; E78.5 Hyperlipidemia, unspecified; Y90.8 Blood alcohol level of 240 mg/100 ml or more; J45.909 Unspecified asthma, uncomplicated; E83.42 Hypomagnesemia; I12.9 Hypertensive chronic kidney disease with stage 1 through stage 4 chronic kidney disease, or unspecified chronic kidney disease; N18.30 Chronic kidney disease, stage 3 unspecified; Z85.528 Personal history of other malignant neoplasm of kidney; Z20.822 Contact with and (suspected) exposure to COVID-19; Z79.899 Other long term (current) drug therapy
CPT/HCPCS: 0241U; 36415; 71046; 73502; 73560; 73610; 73630; 80048; 80053; 80076; 80307; 83735; 84484; 85025; 85027; 85610; 87493; 87507; 93005; 97116; 97162; 97530; 99285; J1650; J2560; J3475; S9485

== ENCOUNTER → 2024-10-16 07:24 | Outpatient (BNV) | payer MEDICAID, SELFPAY | PROVIDERS: Emergency Provider Emergency Medicine; Visit Provider Radiology Diagnostic Radiology | DX: M25.551 Pain in right hip (principal); R53.1 Weakness; M25.572 Pain in left ankle and joints of left foot; M25.571 Pain in right ankle and joints of right foot; M25.561 Pain in right knee; Z91.81 History of falling | CPT/HCPCS: 71046; 73502; 73560; 73610; 73630 ==

== ENCOUNTER → 2024-10-16 07:35 | Outpatient (BNV) | payer MEDICAID, SELFPAY | PROVIDERS: Admitting Provider Student in an Organized Health Care Education/Training Program; Emergency Provider Emergency Medicine; Visit Provider Internal Medicine Cardiovascular Disease | DX: R94.31 Abnormal electrocardiogram [ECG] [EKG] (principal); R53.1 Weakness; I44.4 Left anterior fascicular block | CPT/HCPCS: 93010 ==

== ENCOUNTER → 2024-10-16 16:16 | Outpatient (BNV) | payer MEDICAID, SELFPAY | PROVIDERS: Admitting Provider Student in an Organized Health Care Education/Training Program; Emergency Provider Emergency Medicine; Visit Provider Student in an Organized Health Care Education/Training Program | DX: F10.939 Alcohol use, unspecified with withdrawal, unspecified (principal); R53.1 Weakness; I87.333 Chronic venous hypertension (idiopathic) with ulcer and inflammation of bilateral lower extremity | CPT/HCPCS: 99223; 99231; 99232; 99239 ==

== ENCOUNTER 2024-11-12 17:27 | Emergency (ER) | payer MEDICAID, SELFPAY ==
--- NOTE | ~2024-11-12 | CT_ITS ---
CLINICAL HISTORY: headstraike, intoxicated CT of the cervical spine without contrast. Comparison 10/30/2022. Findings: No acute fractures are seen. There is prominent C5-6 and C6-7 degenerative disc disease. No significant subluxation. There is lateral curve of the spine. Impression: No acute fractures. This document has been electronically signed by: Jay Jay Ortega MD on 11/12/2024 20:38:39
--- NOTE | ~2024-11-12 | CT_ITS ---
CLINICAL HISTORY: headstraike, intoxicated CT of the head without contrast. Comparison 08/13/2023. Findings: There is diffuse atrophy. Minimal white matter changes. No acute hemorrhage or infarct is seen. No masses are identified and there is no hydrocephalus. There is no mass-effect. Impression: No acute intracranial abnormality is identified. This document has been electronically signed by: Jay Jay Ortega MD on 11/12/2024 20:40:31
[2024-11-12 17:48] VITALS: BP 120/65; BP 146/72; PULSE 54; PULSE 55; RESP 18; TEMP 36.6; O2SAT 100; O2SAT 93; BMI 32.9
--- NOTE | 2024-11-12 18:47 | ECG_ITS ---
Test Reason : JOSE Blood Pressure : */* mmHG Vent. Rate : 60 BPM Atrial Rate : 60 BPM P-R Int : 216 ms QRS Dur : 134 ms QT Int : 540 ms P-R-T Axes : 40 -43 114 degrees QTcB Int : 540 ms Sinus rhythm with 1st degree A-V block with Premature atrial complexes Left axis deviation Non-specific intra-ventricular conduction block Minimal voltage criteria for LVH, may be normal variant ( [place] product ) T wave abnormality, consider lateral ischemia Abnormal ECG When compared with ECG of 16-Oct-2024 09:31, Significant changes have occurred Referred By: Brent Guajardo Electronically Signed By: EDITH MARROQUIN MD
[2024-11-12 19:06] LABS: MANUAL DIFF FLAG NO
[2024-11-12 19:18] LABS: Basophils Absolute Auto 0.1 X10*3/uL (0.0-0.2); Basophils Percent Auto 1.1 % (0-2); Eosinophils Absolute Auto 0.5 X10*3/uL (0.0-0.4); Hematocrit 29.7 % (42.0-52.0); Hemoglobin 10.1 g/dl (14.0-18.0); Imm Gran Abs Auto 0.06 X10*3/uL (0.00-0.03); Imm Gran Pct Auto 0.5 % (0.0-0.4); Lymphocytes Absolute Auto 3.9 X10*3/uL (1.2-4.9); Lymphocytes Percent Auto 32.5 % (20-40); Mean Corpuscular Hemoglobin 27.4 pg (27.0-33.0); Mean Corpuscular Volume 80.5 fL (80.0-98.0); Mean Platelet Volume 8.7 fL (9.4-12.4); Monocytes Absolute Auto 0.6 X10*3/uL (0.1-1.2); Monocytes Percent Auto 4.9 % (2-11); Neutrophils Absolute Auto 6.8 x10*3/uL (2.0-8.3); Platelet Count 231 X10*3/uL (160-400); Red Blood Count 3.69 X10*6/uL (4.60-5.80); Red Cell Distribution Width 15.8 % (11.0-16.0); White Blood Count 11.9 X10*3/uL (4.8-10.8)
[2024-11-12 19:27] LABS: Alanine Aminotransferase 12 U/L (0-40); Alkaline Phosphatase 136 U/L (39-117); Anion Gap 17 (12-20); Aspartate Amino Transferase 26 U/L (5-37); Bilirubin Total 0.4 mg/dL (0.0-1.0); Blood Urea Nitrogen 46 mg/dL (9-16); Calcium 9.2 mg/dL (8.4-10.2); Carbon Dioxide 17 mmol/L (22-29); Chloride 105 mmol/L (96-108); Creatinine Clr Calc Pharmacy 53.3; Estimated Glomerular Filt Rate 45; Ethanol 346 mg/dL; Glucose Random 83 mg/dL (60-115); Lipase 14 U/L (8-78); Magnesium 1.9 mg/dL (1.6-2.6); Potassium 4.3 mmol/L (3.3-5.1); Sodium 135 mmol/L (135-145); Total Protein 7.7 g/dL (6.5-8.0)
[2024-11-12] MEDS: Magnesium Sulfate/H2O 2 GM/50 ML PIGGYBACK IV (19:33)
[2024-11-12 19:34] LABS: Troponin-I High Sensitivity < 2.7 ng/L (<3.5-35.0)
[2024-11-12] MEDS: Thiamine HCL 500 MG in 0.9 % Sodium Chloride 100 ML 210 MG IV (19:34)
[2024-11-12] MEDS: 0.9 % Sodium Chloride 1,000 ML 999 ML IV (19:37)
[2024-11-12] MEDS: Folic Acid 1 MG in 0.9 % Sodium Chloride 50 ML 100.4 MG IV (20:38)
--- NOTE | 2024-11-12 21:03 | ED_ITS ---
HPI - General Adult General Chief complaint: Fall Stated complaint: FALL W/ HEADSTRIKE, ETOH Time Seen by Provider: 11/12/24 18:47 Source: patient, RN notes reviewed and old records reviewed Mode of arrival: EMS Limitations: altered mental status History of Present Illness ED Provider: Bennett HPI narrative: 64-year-old male past medical history significant for alcohol abuse, chronic kidney disease, hypertension, anemia presents for evaluation of a fall. Patient reports that he was at home where he lives with his and sister. The patient reports that he went to go to the bathroom, on his way back to his chair he fell to the ground The patient denies that he was lightheaded, he denies any chest pain, shortness of breath. He reports that he fell ?because I was drinking. ? He denies that he hit his head but EMS was concerned that the patient's struck his head. The patient believes that ?my head did not hit the ground because my arm was in between. ? The patient offers no complaints. He states ?I just wanted to get put back in my chair. ? He denies any pain The patient makes several suicidal comments In my presence he states ?if you need blood, give me the knife, I will stab myself in the heart and you can take all of the blood that you need. ? He further made similar comments to nursing staff with vague suicidal comments Related Data Home Medications ?Medication ?Instructions ?Recorded ?Confirmed metoprolol succinate 50 mg 50 mg PO DAILY 10/30/22 10/16/24 tablet,extended release 24 hr rosuvastatin 5 mg tablet 5 mg PO BEDTIME 08/26/23 10/16/24 cyanocobalamin (vitamin B-12) 1,000 mcg IM Q30D 02/05/24 10/16/24 1,000 mcg/mL injection solution allopurinol 300 mg tablet 300 mg PO DAILY 07/29/24 10/16/24 ascorbate calcium (vitamin C) 500 500 mg PO BID 07/29/24 10/16/24 mg tablet calcium 250 mg (as 1 tab PO TID 10/16/24 10/16/24 carbonate)-vitamin D3 3.125 mcg (125 unit) tablet (Oyster Shell Calcium-Vitamin D3) cholecalciferol (vitamin D3) 50 50 mcg PO DAILY 10/16/24 10/16/24 mcg (2,000 unit) tablet (Vitamin D3) ferrous sulfate 325 mg (65 mg 325 mg PO DAILY 10/16/24 10/16/24 iron) tablet,delayed release lidocaine 5 % topical cream 1 appl topical BID 10/16/24 10/16/24 mineral oil-hydrophil petrolat 1 appl topical BID 10/16/24 10/16/24 topical ointment (petrolatum topical ointment) hoetwlnsluxa-zkyishit-hink 1 tab PO DAILY 10/16/24 10/16/24 fumarate 7.5 mg-folic acid 400 mcg tablet naltrexone 50 mg tablet 50 mg PO DAILY 10/16/24 10/16/24 omeprazole 20 mg capsule,delayed 20 mg PO DAILY 10/16/24 10/16/24 release pyridoxine (vitamin B6) 50 mg 50 mg PO DAILY 10/16/24 10/16/24 tablet (Vitamin B-6) thiamine HCl (vitamin B1) 100 mg 100 mg PO DAILY 10/16/24 10/16/24 tablet (Vitamin B-1) Previous Rx's ?Medication ?Instructions ?Recorded magnesium oxide 400 mg (241.3 mg 400 mg PO DAILY #10 tabs 04/25/23 magnesium) tablet folic acid 1 mg tablet 1 mg PO DAILY #30 tabs 10/01/23 ammonium lactate 12 % lotion 1 appl topical BID #400 grams 10/22/24 Allergies Allergy/AdvReac Type Severity Reaction Status Date / Time azithromycin [AZITHROMYCIN] Allergy Severe FACIAL Verified 11/12/24 17:52 SWELLING hydrochlorothiazide [HCTZ] Allergy Severe Facial Verified 11/12/24 17:52 Swelling Review of Systems 2 Constitutional: Constitutional: Denies body ache(s), Denies chills and Denies fever(s) Eyes: Eyes: Denies blurry vision ENT: Denies vertigo and Denies dizziness Cardiovascular: Cardiovascular: Denies chest pain and Denies dyspnea Respiratory: Respiratory: Denies cough and Denies dyspnea Gastrointestinal: Gastrointestinal: Denies abdominal pain, Denies nausea and Denies vomiting Musculoskeletal: Musculoskeletal: Denies back pain Integumentary/Breasts: Skin/Breast: Denies rash Neurologic: Denies vertigo and Denies dizziness Psychiatric: Psychiatric: Denies anxiety PMFSH Past Medical History Medical History Abdominal wall abscess at site of surgical wound CKD stage 3a, GFR 45-59 ml/min Colitis Renal mass Renal cell carcinoma Alcohol use disorder Hyperlipidemia Ascending aortic aneurysm Alcoholic steatohepatitis Seborrheic dermatitis DEBORAH (obstructive sleep apnea) History of rhabdomyolysis Hx of lower gastrointestinal bleeding Hx of sepsis History of DVT of lower extremity Chronic ulcer of leg Chronic venous stasis HTN (hypertension) Anemia Anemia Surgical History H/O partial nephrectomy Hx of colonoscopy Family History Family History Mother Dementia Maternal Grandmother Dementia Social History Social History Household Members: Family Housing: House Housing Other:: 4 stairs to get into house. Pt lives in basement Do you presently have visiting nurse or other home services: No Alcohol intake: current Alcohol intake frequency: 3 or more drinks per day Alcohol type: hard liquor Comment: pt refused socks Patient Tobacco Use Status: Never used Tobacco Advance Directives: Yes Advance Directives on File: Yes Advance Directives Date on File: 04/13/22 Do you have a plan to hurt others: No Plan service: No Current occupational status: disabled Physical Exam ED Vital Signs: Vital Signs - 24 hr 11/12/24 17:48 11/12/24 22:11 11/13/24 00:54 Temperature 97.8 F 97.5 F 97.6 F Pulse Rate 55 76 64 Respiratory Rate 18 9 L 12 Blood Pressure 120/65 104/60 160/52 H Pulse Oximetry 100 100 100 Oxygen Delivery Method Room Air Room Air Room Air 11/13/24 02:19 11/13/24 06:34 11/13/24 08:45 Temperature 97.6 F 98.1 F 97.9 F Pulse Rate 68 79 83 Respiratory Rate 12 15 14 Blood Pressure 108/57 L 108/54 L 116/63 Pulse Oximetry 97 97 98 Oxygen Delivery Method Room Air Room Air BMI result Body Mass Index 32.9 Const General: healthy appearing, comfortable, no acute distress, alert and awake Nutritional Appearance: well nourished HENWI Head: Yes normocephalic and Yes atraumatic Eyes Eyelids: Yes eyelids normal Conjunctivae: conjunctivae normal Sclerae: sclerae normal Corneas: corneas normal Pupils: Equal, round and reactive pupils present EOM: EOMs intact bilaterally Resp Effort & Inspection: normal respiratory effort, able to speak in complete sentences and not labored Cardio Rate: regular rate Rhythm: regular rhythm GI Inspection: No distended Palpation (GI): Soft to palpation, not firm, nontender, no guarding and not rigid Back/Spine/Pelvis Cervical Spine: collar present Skin General skin exam: no rashes or lesions noted and elasticity normal Neuro Cranial nerves: Yes Equal, round and reactive pupils present and Yes Bilaterally intact EOM present Extrem Other: Moving all extremities well without any obvious deformities Course Reevaluation(s) Reevaluation #1: The patient did have a couple episodes of bradycardia while in the ER. There was no evidence of atrioventricular block, he is not on any beta blockade medications. His blood pressure has been stable. I discussed with Cardiology given the asymptomatic bradycardia, Dr. Hendricks who recommends no further evaluation or management, the patient is medically cleared from a cardiology standpoint. Time: 22:02 Reevaluation #2: Patient is seen by care team and has been cleared for discharge home he is not suicidal or homicidal. Yesterday he drank and was intoxicated when he came in. 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 Patient will be discharged home. Time: 09:17 Reevaluation #3: Patient's sister will be here at 11 to help patient get on bus patient will then Medications Administered Discontinued Medications Generic Name Dose Route Start Last Admin Trade Name Freq PRN Reason Stop Dose Admin Magnesium Sulfate 2 gm in 50 mls @ 150 mls/hr 11/12/24 18:57 11/12/24 19:33 Magnesium Sulfate/H2o IV 11/12/24 19:16 150 mls/hr ONCE ONE Administration Sodium Chloride 1,000 mls @ 999 mls/hr 11/12/24 19:00 11/12/24 19:37 Ns IV 11/12/24 20:00 999 mls/hr .Q1H1M PROMISE Administration Thiamine HCl 500 mg/ Sodium 105 mls @ 210 mls/hr 11/12/24 18:58 11/12/24 19:34 Chloride IV 11/12/24 19:27 210 mls/hr ONCE ONE Administration Folic Acid 1 mg/ Sodium 50.2 mls @ 100.4 mls/hr 11/12/24 18:58 11/12/24 20:38 Chloride IV 11/12/24 19:27 100.4 mls/hr ONCE ONE Administration Medical Decision Making Medical Decision Making [facility] Narrative: 64-year-old male with past medical history as above presents for evaluation of a fall. He denies any injuries. He was placed in his C-collar by EMS. Given that he is intoxicated, I am unable to clear the patient with nexus criteria. We will get a CT scan of the brain and cervical spine. Has a history of hypomagnesemia, his EKG shows a prolonged QTC of 540. I ordered magnesium 2 g IV. The patient had an episode witnessed by nursing staff for his heart rate decreased ?into the 30s. ? He did not have any mental status change, we are unable to get an EKG while he was bradycardic. The patient is also on a one-to-one due to his suicidal comments Differential Diagnosis Differential Diagnoses: The differential diagnosis associated with the presentation includes Alcohol abuse Syncope Mechanical fall Depression Suicidal ideation Bradycardia Atrioventricular block Admission/Observation Consideration of admission/observation: Escalation of care including admission/observation considered Consider observation due to bradycardia Consult Healthcare Provider Management of the patient was discussed with: Kitchen Porter (cardiology) Lab Data [facility] Lab Attestation statement: I reviewed the patient's lab results. Leukocytosis to 11.9 which may be related to the patient's alcoholism. He has no signs of infection. The patient has a chronic anemia in his hemoglobin of 10.1 is slightly above his baseline of around 8.5-9. Platelet count is within normal limits. There is no significant left shift. Patient's carbon dioxide is slightly low at 17, he has a elevated BUN and creatinine of 1.56 which could be related to some degree of dehydration. 11/12/24 19:02 11/12/24 19:02 Labs: Lab Results 11/12/24 11/12/24 Range/Units 19:02 22:26 WBC 11.9 H (4.8-10.8) X10*3/uL RBC 3.69 L D (4.60-5.80) X10*6/uL Hgb 10.1 L D (14.0-18.0) g/dl Hct 29.7 L (42.0-52.0) % MCV 80.5 (80.0-98.0) fL MCH 27.4 (27.0-33.0) pg MCHC 34.0 (31.0-36.0) g/dl RDW 15.8 (11.0-16.0) % Plt Count 231 D (160-400) X10*3/uL MPV 8.7 L (9.4-12.4) fL Immature Gran % (Auto) 0.5 H (0.0-0.4) % Neut % (Auto) 57.0 (45-73) % Lymph % (Auto) 32.5 (20-40) % Traill % (Auto) 4.9 (2-11) % Eos % (Auto) 4.0 (0-4) % Baso % (Auto) 1.1 (0-2) % Lymph # (Auto) 3.9 (1.2-4.9) X10*3/uL Traill # (Auto) 0.6 (0.1-1.2) X10*3/uL Eos # (Auto) 0.5 H (0.0-0.4) X10*3/uL Baso # (Auto) 0.1 (0.0-0.2) X10*3/uL Abs Immat Gran (auto) 0.06 H (0.00-0.03) X10*3/uL Absolute Neuts (auto) 6.8 (2.0-8.3) x10*3/uL Absolute Nucleated RBC 0.000 (0.0-0.012) X10*3/uL Nucleated RBC % (auto) 0.0 (0.0-0.2) /100WBC Sodium 135 (135-145) mmol/L Potassium 4.3 (3.3-5.1) mmol/L Chloride 105 (96-108) mmol/L Carbon Dioxide 17 L (22-29) mmol/L Anion Gap 17 (12-20) BUN 46 H (9-16) mg/dL Creatinine 1.56 H (0.5-1.4) mg/dL Estim Creat Clear Calc 53.3 Estimated GFR 45 Random Glucose 83 (60-115) mg/dL Calcium 9.2 (8.4-10.2) mg/dL Magnesium 1.9 (1.6-2.6) mg/dL Total Bilirubin 0.4 (0.0-1.0) mg/dL AST 26 (5-37) U/L ALT 12 (0-40) U/L Alkaline Phosphatase 136 H (39-117) U/L Total Creatine Kinase 45 (38-174) U/L Troponin I High Sens < 2.7 (<3.5-35.0) ng/L Total Protein 7.7 (6.5-8.0) g/dL Albumin 4.0 (3.5-5.0) g/dL Lipase 14 (8-78) U/L Urine Color Yellow Urine Appearance Clear Urine pH 5.5 (5.0-9.0) Ur Specific Drift <= 1.005 (1.005-1.025) Urine Protein Negative (Neg-Trace) mg/dL Urine Glucose (UA) Negative (Negative) mg/dL Urine Ketones Negative (Negative) mg/dL Urine Blood Trace H (Negative) Urine Nitrite Negative (Negative) Ur Leukocyte Esterase Large (3+) H (Negative) Urine RBC 0-2 (0-2) /HPF Urine WBC >50 H (0-5) /HPF Ur Squamous Epith Cells 0-2 (0-2) /HPF Urine Bacteria 2+ (None Seen) Hyaline Casts 0-2 (0-2) /LPF Urine Opiates Screen Not Detected (Not Detect) Ur Buprenorphine Scrn Not Detected (Not Detect) ng/mL Ur Oxycodone Screen Not Detected (Not Detect) ng/mL Urine Methadone Screen Not Detected (Not Detect) ng/mL Urine Fentanyl Screen Not Detected (Not Detect) Ur Barbiturates Screen Not Detected (Not Detect) Ur Phencyclidine Scrn Not Detected (Not Detect) Ur Amphetamines Screen Not Detected (Not Detect) U Benzodiazepines Scrn Not Detected (Not Detect) Urine Cocaine Screen Not Detected (Not Detect) U Marijuana (THC) Screen Not Detected (Not Detect) Ethyl Alcohol 346 H* mg/dL Independent Interpretation I performed an independent interpretation of an: EKG Interpretation: Sinus rhythm with first-degree AV block. MN interval of 216. QTC of 540. Ventricular rate of 60 beats per minute. Critical Care Time Critical Care Time Critical Care Time: No Discharge Plan Discharge Clinical Impression: Alcohol abuse, Depression Patient Disposition: Home, Self-Care Instructions: Abuse of Alcohol (DC), Depression (ED) Additional Instructions: Take your medications as prescribed. If you were prescribed antibiotics today, it is important that you take your medication to their entirety, do not skip any doses, do not finish them early. Follow-up with your primary care provider this week. Return to the emergency department with new or worsening symptoms. Such as fevers, chills, chest pain, shortness of breath, nausea, vomiting, dizziness, headache, vision changes, lethargy In case of emergency call 911 You were seen in our Emergency Department today for treatment of a behavioral health issue. It is important after your visit that you follow up with either your behavioral health provider or a primary care doctor within 7 days.? If you have trouble finding a therapist you can reach out to [place] [phone] [facility] [employer] [facility] can be reached 7 days a week 24 hours a day.? Call [phone] to speak with someone.? Return for any worsening symptoms or concerns such as thoughts of self harm or harm to others. Please call 911 if you feel your mental health is worsening.? Prescriptions: No Action metoprolol succinate 50 mg tablet extended release 24 hr 50 mg PO DAILY magnesium oxide 400 mg (241.3 mg magnesium) tablet 400 mg PO DAILY Qty: 10 0RF rosuvastatin 5 mg Tablet 5 mg PO BEDTIME folic acid 1 mg tablet 1 mg PO DAILY Qty: 30 0RF naltrexone 50 mg tablet 50 mg PO DAILY thiamine HCl (vitamin B1) [Vitamin B-1] 100 mg Tablet 100 mg PO DAILY petrolatum Ointment 1 appl topical BID pyridoxine (vitamin B6) [Vitamin B-6] 50 mg Tablet 50 mg PO DAILY calcium carbonate-vitamin D3 [Oyster Shell Calcium-Vit D3] 250 mg-3.125 mcg (125 unit) tablet 1 tab PO TID cholecalciferol (vitamin D3) [Vitamin D3] 50 mcg (2,000 unit) Tablet 50 mcg PO DAILY [id number]-[id number] fum-folic ac 7.5 mg iron-400 mcg tablet 1 tab PO DAILY lidocaine 5 % Cream 1 appl TOPICAL BID omeprazole 20 mg Capsule,Delayed Release(Dr/Ec) 20 mg PO DAILY ferrous sulfate 325 mg (65 mg iron) Tablet,Delayed Release (Dr/Ec) 325 mg PO DAILY ammonium lactate 12 % Lotion 1 appl topical BID Qty: 400 0RF Protocol: Apply to: Apply to: Lower extremities bilaterally Rx Instructions: Bilateral lower extremities cyanocobalamin (vitamin B-12) 1,000 mcg/mL solution 1,000 mcg IM Q30D allopurinol 300 mg tablet 300 mg PO DAILY ascorbate calcium (vitamin C) 500 mg tablet 500 mg PO BID Referrals: [facility] [Primary Care Provider] - 2 days Print Language: Mongolian
[2024-11-12 22:11] VITALS: BP 104/60; PULSE 76; RESP 9; TEMP 36.4; O2SAT 100
[2024-11-12 22:38] LABS: Appearance Urine Clear; Color Urine Yellow; Glucose Urine UA Negative (Negative); Leukocyte Esterase Urine Large (3+) (Negative); Nitrite Urine Negative (Negative); PH 5.5 (5.0-9.0); Specific Gravity - Urine <= 1.005 (1.005-1.025); UMIC TRIGGER UACC YES; Urine Blood Trace (Negative); Urine Ketones Negative (Negative); Urine Protein Negative (Neg-Trace)
[2024-11-12 22:43] LABS: Bacteria Urine 2+ (None Seen); Hyaline Casts Urine 0-2 /LPF (0-2); RBC Urine 0-2 /HPF (0-2); Squamous Epithelial Cell Urine 0-2 /HPF (0-2); UACC Culture Trigger YES; WBC Urine >50 /HPF (0-5)
[2024-11-12 22:46] LABS: Amphetamine Screen Urine Not Detected (Not Detect); Barbiturates, Urine Not Detected (Not Detect); Benzodiazepines Screen Urine Not Detected (Not Detect); Buprenorphine Scr Not Detected (Not Detect); Cannabinoid Screen Urine Not Detected (Not Detect); Cocaine Screen Urine Not Detected (Not Detect); Fentanyl, urine Not Detected (Not Detect); Methadone Screen, Urine Not Detected (Not Detect); Opiate Screen Urine Not Detected (Not Detect); Oxycodone Screen Urine Not Detected (Not Detect); Phencyclidine Screen Urine Not Detected (Not Detect)
[2024-11-13 00:54] VITALS: BP 160/52; PULSE 64; RESP 12; TEMP 36.4; O2SAT 100
[2024-11-13 02:19] VITALS: BP 108/57; PULSE 68; RESP 12; TEMP 36.4; O2SAT 97
[2024-11-13 06:34] VITALS: BP 108/54; PULSE 79; RESP 15; TEMP 36.7; O2SAT 97
[2024-11-13 08:45] VITALS: BP 116/63; PULSE 83; RESP 14; TEMP 36.6; O2SAT 98
--- NOTE | 2024-11-13 09:12 | PC.NURSE ---
Care Team as bedside for eval.
--- NOTE | 2024-11-13 09:42 | MHC.CARE ---
Pt does not meet the criteria for IPLOC. Pt will be discharged to current providers.
[2024-11-13 09:56] VITALS: BP 116/63; PULSE 83; RESP 14; TEMP 36.6; O2SAT 98
== END 2024-11-13 10:30 | disposition home or self-care (01) ==
PROVIDERS: Physician Assistant; Emergency Provider Emergency Medicine
DX: F10.10 Alcohol abuse, uncomplicated (principal); Y90.8 Blood alcohol level of 240 mg/100 ml or more; F32.A Depression, unspecified; R45.851 Suicidal ideations; R00.1 Bradycardia, unspecified; E78.5 Hyperlipidemia, unspecified; Z79.02 Long term (current) use of antithrombotics/antiplatelets; Z79.899 Other long term (current) drug therapy
CPT/HCPCS: 36415; 70450; 72125; 80053; 80307; 81001; 82550; 83690; 83735; 84484; 85025; 87086; 87088; 87186; 93005; 96374; 96375; 99285; J3411; J3475; S9485

== ENCOUNTER → 2024-11-12 18:47 | Outpatient (BNV) | payer MEDICAID, SELFPAY | PROVIDERS: Emergency Provider Emergency Medicine; Visit Provider Internal Medicine Cardiovascular Disease | DX: I44.0 Atrioventricular block, first degree (principal); I49.1 Atrial premature depolarization; I45.9 Conduction disorder, unspecified | CPT/HCPCS: 93010 ==

== ENCOUNTER → 2024-11-12 18:48 | Outpatient (BNV) | payer MEDICAID, SELFPAY | PROVIDERS: Visit Provider Radiology Diagnostic Radiology | DX: S09.90XA Unspecified injury of head, initial encounter (principal) | CPT/HCPCS: 70450; 72125 ==

== ENCOUNTER 2024-12-10 10:38 | Emergency (ER) | payer MEDICAID, SELFPAY ==
--- NOTE | ~2024-12-10 | CT_ITS ---
EXAMINATION: CT CERVICAL SPINE WITHOUT CONTRAST CLINICAL INFORMATION: Head strike, neck pain. COMPARISON: 11/12/2024. TECHNIQUE: Spiral CT imaging of the cervical spine performed in axial plane without contrast. Multiplanar reformatted images were constructed from the axial data set. This CT examination was performed using dose optimization techniques as appropriate, variously including the following: *Automated exposure control *Adjustment of mA and/or kV according to patient size (this includes techniques or standardized protocols for targeted exams where dose is matched to indication/reason for exam; i.e. extremities or head) *Use of iterative reconstruction technique FINDINGS: CORONAL ALIGNMENT: -Minimal right convex scoliosis, possibly positional. SAGITTAL ALIGNMENT: -Normal lordosis. No subluxations. C1-C2 AND CRANIOCERVICAL JUNCTION: -Intact and normally aligned. There are mild degenerative changes of the atlantoaxial joint. VERTEBRAL BODIES AND FACETS: -There is no fracture, impression deformity, traumatic subluxation, or suspicious bone lesion. -There is normal facet alignment bilaterally. DISCS: -Severe disc degeneration present C5-6 and C6-7. - CENTRAL CANAL: -No evidence of high-grade central canal narrowing. -There are dorsal disc herniations C3-4, C4-5, C5-6, and C6-7, resulting in at least moderate central canal stenosis at these levels. PREVERTEBRAL AND PARAVERTEBRAL SOFT TISSUES: -There is no prevertebral or paravertebral soft tissue edema or fluid collection. -The thyroid demonstrates a coarse calcification in the inferior posterior right lobe. It is otherwise normal in appearance. LUNG APICES: -Clear bilaterally. No pneumothorax. CT/CT cervical spine wo IV con IMPRESSION: 1. No CT evidence of acute cervical spine fracture or injury. 2. Degenerative spondylosis. Electronically signed by: Kaushal Trujillo MD 12/10/2024 12:16 PM EDT
--- NOTE | ~2024-12-10 | CT_ITS ---
EXAMINATION: CT HEAD AND FACIAL BONES WITHOUT CONTRAST CLINICAL INFORMATION: Head strike COMPARISON: CT head 11/12/2024. TECHNIQUE: Contiguous axial imaging was performed from the skull base to vertex, as well as the maxillofacial bones/mandible without intravenous administration of contrast. Multiplanar reformatted imaging was constructed from the axial data set. This CT examination was performed using dose optimization techniques as appropriate, variously including the following: *Automated exposure control *Adjustment of mA and/or kV according to patient size (this includes techniques or standardized protocols for targeted exams where dose is matched to indication/reason for exam; i.e. extremities or head) *Use of iterative reconstruction technique CT HEAD: There is no evidence of intracranial hemorrhage or extra-axial fluid collection. There is no mass effect, or edema. No CT evidence of acute territorial infarct. Ventricles, sulci, and cisterns are diffusely somewhat prominent, in keeping with age advanced cerebral and cerebellar volume loss. No hydrocephalus. No midline shift. Negative hyperdense MCA sign. Negative insular ribbon sign. Mild patchy supratentorial white matter hypodensities, in keeping with small vessel ischemic changes. Atherosclerotic calcifications of the carotid siphons. Normal pituitary gland. Globes and orbital contents image normally. No extracranial soft tissue abnormalities. The calvarium and skull base are intact without fracture. CT MAXILLOFACIAL BONES: There are minimally displaced fractures of the bilateral nasal bones. The nasal septum appears intact. The maxillary spines appear intact. The nasal process appears grossly intact. The mandible is intact without fracture. The TM joints are normally oriented. The maxilla, orbits, zygomatic arches, pterygoid plates, and sphenoid bone are intact without fracture. No significant nasal septal deviation. Paranasal sinuses are normally pneumatized throughout. No paranasal sinus fractures. The mastoids and tympanic cavities are normally aerated. Imaged maxillofacial/neck soft tissues appear normal. CT/CT head/brain wo IV con IMPRESSION: Noncontrast Head CT: 1. No evidence of intracranial hemorrhage or mass effect. No fractures of the calvarium or skull base. 2. Age advanced cerebral and cerebellar volume loss. Maxillofacial CT: 1. Suspect minimally displaced bilateral nasal bone fractures. 2. No additional maxillofacial or mandibular fractures seen. Electronically signed by: Kaushal Trujillo MD 12/10/2024 11:56 AM EDT RP
[2024-12-10 10:43] VITALS: BP 158/92; PULSE 77; O2SAT 97
[2024-12-10 10:52] VITALS: BP 144/87; PULSE 76; RESP 18; TEMP 36.7; O2SAT 100; BMI 34.9
[2024-12-10 11:05] VITALS: PULSE 76; RESP 18
--- NOTE | 2024-12-10 11:54 | ED_ITS ---
HPI - General Adult General Chief complaint: Fall Stated complaint: UNWIT FALL,NOSE LAC/CONTROLLED,+CCOLLAR Time Seen by Provider: 12/10/24 11:06 Source: patient History of Present Illness ED Provider: Jimmy REGALADO narrative: 64-year-old male presenting for head trauma. The patient was walking his dogs earlier today when he was pulled off of his feet by them. He landed in the canals on his face. He sustained injury to his nose however denies LOC. He has no head pain or neck pain. He denies chest pain and hip pain. He is not on any thinners Related Data Home Medications ?Medication ?Instructions ?Recorded ?Confirmed metoprolol succinate 50 mg 50 mg PO DAILY 10/30/22 10/16/24 tablet,extended release 24 hr rosuvastatin 5 mg tablet 5 mg PO BEDTIME 08/26/23 10/16/24 cyanocobalamin (vitamin B-12) 1,000 mcg IM Q30D 02/05/24 10/16/24 1,000 mcg/mL injection solution allopurinol 300 mg tablet 300 mg PO DAILY 07/29/24 10/16/24 ascorbate calcium (vitamin C) 500 500 mg PO BID 07/29/24 10/16/24 mg tablet calcium 250 mg (as 1 tab PO TID 10/16/24 10/16/24 carbonate)-vitamin D3 3.125 mcg (125 unit) tablet (Oyster Shell Calcium-Vitamin D3) cholecalciferol (vitamin D3) 50 50 mcg PO DAILY 10/16/24 10/16/24 mcg (2,000 unit) tablet (Vitamin D3) ferrous sulfate 325 mg (65 mg 325 mg PO DAILY 10/16/24 10/16/24 iron) tablet,delayed release lidocaine 5 % topical cream 1 appl topical BID 10/16/24 10/16/24 mineral oil-hydrophil petrolat 1 appl topical BID 10/16/24 10/16/24 topical ointment (petrolatum topical ointment) [id number] 1 tab PO DAILY 10/16/24 10/16/24 fumarate 7.5 mg-folic acid 400 mcg tablet naltrexone 50 mg tablet 50 mg PO DAILY 10/16/24 10/16/24 omeprazole 20 mg capsule,delayed 20 mg PO DAILY 10/16/24 10/16/24 release pyridoxine (vitamin B6) 50 mg 50 mg PO DAILY 10/16/24 10/16/24 tablet (Vitamin B-6) thiamine HCl (vitamin B1) 100 mg 100 mg PO DAILY 10/16/24 10/16/24 tablet (Vitamin B-1) Previous Rx's ?Medication ?Instructions ?Recorded magnesium oxide 400 mg (241.3 mg 400 mg PO DAILY #10 tabs 04/25/23 magnesium) tablet folic acid 1 mg tablet 1 mg PO DAILY #30 tabs 10/01/23 ammonium lactate 12 % lotion 1 appl topical BID #400 grams 10/22/24 Allergies Allergy/AdvReac Type Severity Reaction Status Date / Time azithromycin [AZITHROMYCIN] Allergy Severe FACIAL Verified 12/10/24 11:00 SWELLING hydrochlorothiazide [HCTZ] Allergy Severe Facial Verified 12/10/24 11:00 Swelling Review of Systems Review of Systems: Yes all other systems are reviewed and are negative [facility] Past Medical History Medical History Abdominal wall abscess at site of surgical wound CKD stage 3a, GFR 45-59 ml/min Colitis Renal mass Renal cell carcinoma Alcohol use disorder Hyperlipidemia Ascending aortic aneurysm Alcoholic steatohepatitis Seborrheic dermatitis DEBORAH (obstructive sleep apnea) History of rhabdomyolysis Hx of lower gastrointestinal bleeding Hx of sepsis History of DVT of lower extremity Chronic ulcer of leg Chronic venous stasis HTN (hypertension) Anemia Anemia Surgical History H/O partial nephrectomy Hx of colonoscopy Family History Family History Mother Dementia Maternal Grandmother Dementia Social History Social History Household Members: Family Housing: House Housing Other:: 4 stairs to get into house. Pt lives in basement Do you presently have visiting nurse or other home services: No Alcohol intake: current Alcohol intake frequency: a few times a week Alcohol type: hard liquor Comment: pt refused socks Patient Tobacco Use Status: Never used Tobacco Smoked in Last 30 Days: No Use of substances other than those prescribed or required for medical reasons: No Advance Directives: Yes Advance Directives on File: Yes Advance Directives Date on File: 04/13/22 Do you have a plan to hurt others: No Plan service: No Current occupational status: disabled Physical Exam ED Vital Signs: Vital Signs - 24 hr 12/10/24 10:52 12/10/24 11:05 12/10/24 13:43 Temperature 98.0 F 0 F L Pulse Rate 76 76 76 Respiratory Rate 18 18 20 Blood Pressure 144/87 H 147/86 H Pulse Oximetry 100 100 Oxygen Delivery Method Room Air Room Air 12/10/24 13:46 Temperature 0 F L Pulse Rate 76 Respiratory Rate 20 Blood Pressure 147/86 H Pulse Oximetry 100 Oxygen Delivery Method Room Air BMI result Body Mass Index 34.9 Well-appearing male in no acute distress Abrasion to nasal bridge; no septal hematoma No midline C-spine tenderness to palpation Lungs clear to auscultation bilaterally with unlabored breathing Normal S1-S2 regular rate rhythm Abdomen is soft nontender nondistended Pelvis stable and nontender Moving all extremities without difficulty or discomfort Medical Decision Making Medical Decision Making MDM Narrative: 61-year-old male presenting for fall with head strike -I am concerned for nasal fracture with lower suspicion for head bleed, cervical fracture -CT scans and chest x-ray ordered My independent interpretation of labs and imaging: - I do not appreciate large head bleed or obvious cervical fracture on patient's imaging. I do appreciate nasal bridge fracture - radiology impression notes suspected minimally displaced bilateral nasal bone fractures On reassessment patient is still well appearing. I informed him of his nasal fracture and and recommended he follow up with ENT in 1 week. Referrals were placed in his discharge paperwork and I also provided him with nasal fracture precautions Patient does not want to wait for chest x-ray. He has no rib pain and has bilateral breath sounds. I told her that I can not rule out a possible fracture/pneumo without chest x-ray and stated the risks of not identifying these. Patient clearly stated he understands the risk however he does not want to wait. Patient has abrasions to nose however states he received Tdap last year Patient discharged Discharge Plan Discharge Clinical Impression: Closed fracture nasal bone Qualifiers: Encounter type: initial encounter Qualified Code(s): S02.2XXA - Fracture of nasal bones, initial encounter for closed fracture Patient Disposition: Home, Self-Care Additional Instructions: Please follow up with one of the ENT providers this your discharge paperwork in 1 week Please avoid blowing your nose for the next 1-2 weeks. Please avoid any additional trauma to your nose Please return to the emergency room if you develop any of the follow up: - You have clear fluid draining from your nose. - You have vision changes. - You have swelling or a bump on the thin wall (nasal septum) between the nostrils of your nose. - Uncontrolled bleeding. - You have new or worse pain. Prescriptions: No Action metoprolol succinate 50 mg tablet extended release 24 hr 50 mg PO DAILY magnesium oxide 400 mg (241.3 mg magnesium) tablet 400 mg PO DAILY Qty: 10 0RF rosuvastatin 5 mg Tablet 5 mg PO BEDTIME folic acid 1 mg tablet 1 mg PO DAILY Qty: 30 0RF naltrexone 50 mg tablet 50 mg PO DAILY thiamine HCl (vitamin B1) [Vitamin B-1] 100 mg Tablet 100 mg PO DAILY petrolatum Ointment 1 appl topical BID pyridoxine (vitamin B6) [Vitamin B-6] 50 mg Tablet 50 mg PO DAILY calcium carbonate-vitamin D3 [Oyster Shell Calcium-Vit D3] 250 mg-3.125 mcg ( 125 unit) tablet 1 tab PO TID cholecalciferol (vitamin D3) [Vitamin D3] 50 mcg (2,000 unit) Tablet 50 mcg PO DAILY pholbuvz-yer-zizm fum-folic ac 7.5 mg iron-400 mcg tablet 1 tab PO DAILY lidocaine 5 % Cream 1 appl TOPICAL BID omeprazole 20 mg Capsule,Delayed Release(Dr/Ec) 20 mg PO DAILY ferrous sulfate 325 mg (65 mg iron) Tablet,Delayed Release (Dr/Ec) 325 mg PO DAILY ammonium lactate 12 % Lotion 1 appl topical BID Qty: 400 0RF Protocol: Apply to: Apply to: Lower extremities bilaterally Rx Instructions: Bilateral lower extremities cyanocobalamin (vitamin B-12) 1,000 mcg/mL solution 1,000 mcg IM Q30D allopurinol 300 mg tablet 300 mg PO DAILY ascorbate calcium (vitamin C) 500 mg tablet 500 mg PO BID Referrals: Cleo Isbell PA [Physician Vascular Ultrasound Technician] - 1 week (Nasal fracture) Noble Reyes MD [Physician] - 1 week (Nasal fracture) Interventions: ED Discharge Assessment Last Done: 12/10/24 13:46 Discharge Date/Time: 12/10/24 13:50 Print Language: Spanish
--- OUTSIDE RECORDS SUMMARY | 2024-12-10 13:19 | XMS_ITS | Encounter Summary ---
Author Organization [employer] Address [address] [place] [address] [address] [place] [address] Care Team Providers Care Seo Coordinator Name Role Phone Samantha Gonzales MD Primary Care Provider [phone] Encounter Details Date Type Department Care Team (Late Contact Info) Description 01/29/2023 Orders Only [facility] [address] [place], [place] [phone] Samantha Gonzales MD [address] [place], [place] [phone] Hypomagnesemia (Primary Dx) Social History Tobacco Use [...] Care Team (Late st Contact Info) Description 12/30/2024 10:00 AM EDT Office Visit [facility] [address] [place] [address] Issac, Megan, OD [address] [place] [address] 01/12/2025 11:30 AM EDT Office Visit [facility] [address] [place] [address] Samantha Gonzales MD [address] [place], [place] [phone] Scheduled Orders Name Type Priority Associated Diagnoses [...] documented as of this encounter Care Teams Seo Coordinator Relationship Specialty Start Date End Date Samantha Gonzales MD [address] [place], [place] [phone] PCP - General Family Medicine 07/09/13 [facility] 05/17/24 documented as of this encounter
--- OUTSIDE RECORDS SUMMARY | 2024-12-10 13:19 | XMS_ITS | Clinical Summary ---
Author Organization [employer] Address [address] [place] [address] [address] [place] [address] Care Team Providers Care System Sales Consultant Name Role Phone Samantha Gonzales MD Primary Care Provider [phone] Allergies Active Allergy Reactions Criticality Noted Date [...] tablet 4 Active allopurinol (Zyloprim) 300 MG tabletIndications: History of gout TAKE 1 TABLET BY MOUTH [...] 4 Active magnesium oxide (Mag-Ox) 400 MG tabletIndications: Hypomagnesemia TAKE 1 TABLET BY MOUTH tid 90 tablet 3 4 Active Multiple Vitamins-Minerals (multivitamin with minerals) tablet Take 1 tablet by mouth Once per day. 5 Active metoprolol succinate XL (Toprol-XL) 25 MG 24 hr tablet Take 1 tablet by mouth Once per day. Do not crush or chew. Active Emollient (Eucerin Advanced Repair) creamIndications:A cquired lymphedema of lower extremity Apply 4 g topically 2 times daily. 454 g 11 5 Active Lidocaine 5 % creamIndications:L ocalized pain of left shoulder joint Apply topically bid 30 g 3 5 Active naltrexone (Depade) 50 MG tabletIndications: Alcohol use, unspecified, uncomplicated Take 1 tablet (50 mg) by mouth Once per day. 30 tablet 11 5 09/11/19 26 Active Active Problems Problem Noted Date Diagnosed [...] ablation in Aug 2018 ?? -following with [facility], periodically when he has open wounds. -Last seen by [facility] in October 2021 -usually discharged [...] ablation in Aug 2018 ?? -following with [facility] wound care [facility], periodically when he has open wounds. -Last seen by [facility] in October 2021 -usually discharged [...] GSV ablation in Aug 2018 -following with [facility] wound care [facility], periodically when he has open wounds. -Last seen by [facility] in October 2021 -usually discharged [...] GSV ablation in Aug 2018 -following with [facility] wound care [facility], periodically when he has open wounds. -Last seen by [facility] in October 2021 -usually discharged [...] GSV ablation in Aug 2018 -following with [facility] wound care [facility], periodically when he has open wounds. -Last seen by [facility] in October 2021 -usually discharged [...] is frequently having diarrhea - following with director it - dehydration due to diarrhea on 04/25/23, IVF with Mg given in ED - recheck Assessment & Plan (05/26/2023 6:52 AM EDT): - 01/28/23 Magnesium 1.1 - On magnesium oxide supplementation, but pt is frequently having diarrhea - following with director it - dehydration due to diarrhea on 04/25/23, IVF with Mg given in ED - recheck Assessment & Plan (04/25/2023 12:51 PM EDT): - 01/28/23 Magnesium 1.1 - On magnesium oxide supplementation, but pt is frequently having diarrhea - following with director it - dehydration due to diarrhea today; anticipate hypomagnesemia again -> sending ER for replacement Assessment & Plan (01/23/2023 4:07 PM EDT): [facility] Hospitalization on 10/30 - 11/02 Lab showed hypomagnesemia and thrombocytopenia Pt is prescribed magnesium supplement; encouraged to improve adherence Pt is advised to hold when he is having diarrhea Assessment & Plan (11/30/2022 6:23 AM EDT): [facility] Hospitalization on 10/30 - 11/02 Lab showed hypomagnesemia and thrombocytopenia Pt is prescribed magnesium supplement; encouraged to improve adherence Stage 2 chronic kidney disease 10/13/2022 Assessment & Plan (10/14/2024 5:13 PM EST): -Director Gift: [facility]. Dr. Kennedy -Hx rhabdomyolysis, on hemodialysis for 1 month in November 2017 - December 2017 -His renal funciton was CKDII level 1690-5589 -Most recent POLLY in Sep 2022, both admission, held lisinopril, spironolactone, and torsemide during 1st admission, and resumed upon discharge -Last lab: 01/28/23 Sodium 135; Potassium 3.6 ; Chloride 99 ; Bicarb 24 ; Calcium 8.0; BUN 19 , Creatinine 1.02 ; EGFR 84 -Avoid nephrotoxic drugs -Continue renal dosing Assessment & Plan (07/26/2023 2:10 PM EST): -Director Gift: Dr. Kennedy, last appt in Sep 2021 -Hx rhabdomyolysis, on hemodialysis for 1 month in November 2017 - December 2017 -His renal funciton was CKDII level 4844-6970 -Most recent POLLY in Sep 2022, both [...] Assessment & Plan (05/26/2023 6:49 AM EDT): -Director Gift: Dr. Kennedy, last appt in Sep 2021 -Hx rhabdomyolysis, on hemodialysis for 1 month in November 2017 - December 2017 -His renal funciton was CKDII level 8570-6396 -Most recent POLLY in Sep 2022, both admission, held lisinopril, spironolactone, and torsemide during 1st admission, and resumed upon discharge -Last lab: 01/28/23 Sodium 135; Potassium 3.6 ; Chloride 99 ; Bicarb 24 ; Calcium 8.0; BUN 19 , Creatinine 1.02 ; EGFR 84 -Avoid nephrotoxic drugs -Continue renal dosing Assessment & Plan (04/25/2023 12:49 PM EDT): -Director Gift: Dr. Kennedy, last appt in Sep 2021 -Hx rhabdomyolysis, on hemodialysis for 1 month in November 2017 - December 2017 -His renal funciton was CKDII level 4274-9507 -Most recent POLLY in Sep 2022, both admission, held lisinopril, spironolactone, and torsemide during 1st admission, and resumed upon discharge -Last lab: 01/28/23 Sodium 135; Potassium 3.6 ; Chloride 99 ; Bicarb 24 ; Calcium 8.0; BUN 19 , Creatinine 1.02 ; EGFR 84 -Avoid nephrotoxic drugs -Continue renal dosing Assessment & Plan (01/23/2023 4:04 PM EDT): -Director Gift: Dr. Kennedy, last appt in Sep 2021 -Hx rhabdomyolysis, on hemodialysis for 1 month in November 2017 - December 2017 -His renal funciton was CKDII level 2186-9366 -Most recent POLLY in Sep 2022, both admission, held lisinopril, spironolactone, and torsemide during 1st admission, and resumed upon discharge -Last lab: 10/07/22 BUN 31; SCr 1.7, eGFR 47 (Apr 2023 eGFR > 60) -Avoid nephrotoxic drugs -Continue renal dosing Assessment & Plan (11/26/2022 9:32 AM EDT): -Director Gift: Dr. Kennedy, last appt in Sep 2021 -Hx rhabdomyolysis, on hemodialysis for 1 month in November 2017 - December 2017 -His renal funciton was CKDII level 6934-3610 -Most recent POLLY in Sep 2022, both admission, held lisinopril, spironolactone, and torsemide during 1st admission, and resumed upon discharge -Last lab: 10/07/22 BUN 31; SCr 1.7, eGFR 47 (Apr 2023 eGFR > 60) -Avoid nephrotoxic drugs -Recheck lab -Will use renal dosing Assessment & Plan (10/13/2022 5:03 PM EST): -Director Gift: Dr. Kennedy, last appt in Sep 2021 -Hx rhabdomyolysis, on hemodialysis for 1 month in November 2017 - December 2017 -His renal funciton was CKDII level 3436-3703 -Most recent POLLY in Sep 2022, both [...] supplementation -currently receiving B12 IM from his desk interviewer, Dr. Peters Assessment & Plan (06/25/2024 12:12 PM EST): -likely nutritional and excessive alcohol consumption -continue vitamin supplementation -currently receiving B12 IM from his desk interviewer, Dr. Peters Assessment & Plan (07/25/2023 6:24 AM EST): -likely nutritional and excessive alcohol consumption -continue vitamin supplementation -currently receiving B12 IM from his desk interviewer, Dr. Peters Assessment & Plan (10/13/2022 5:15 PM EST): -likely nutritional and excessive alcohol consumption -continue vitamin supplementation Iron deficiency anemia 10/13/2022 Assessment & Plan (07/25/2023 6:25 AM EST): -Received Venfor IV 300 mg x 2 during 1st hospitalization in [facility] in Sep 2022 -Continue follow-up with desk interviewer Assessment & Plan (10/13/2022 5:17 PM EST): -Received Venfor IV 300 mg x 2 during 1st hospitalization in [facility] in Sep 2022 -Continue follow-up with desk interviewer Anemia of chronic disease 10/13/2022 Assessment & Plan (10/09/2024 1:03 AM EST): - Both Iron and Vitamin-B12 deficiency, and anemia of chronic diseaes - followed by desk interviewer, Dr. Peters Assessment & Plan (06/25/2024 12:12 PM EST): - Both Iron and Vitamin-B12 deficiency, and anemia of chronic diseaes - followed by desk interviewer, Dr. Peters Assessment & Plan (07/26/2023 2:12 PM EST): - Both Iron and Vitamin-B12 deficiency, and anemia of chronic diseaes -followed by desk interviewer, Dr. Peters, last seen on 06/03/23 Assessment & Plan (05/26/2023 6:51 AM EDT): Both Iron and Vitamin-B12 deficiency -followed by desk interviewer Assessment & Plan (04/25/2023 10:40 AM EDT): Both Iron and Vitamin-B12 deficiency -followed by desk interviewer Assessment & Plan (01/23/2023 4:06 PM EDT): Both Iron and Vitamin-B12 deficiency -followed by desk interviewer Assessment & Plan (11/26/2022 9:51 AM EDT): Both Iron and Vitamin-B12 deficiency -followed by desk interviewer Assessment & Plan (10/13/2022 5:18 PM EST): -multifactorial - nutritional, CKD -following with [facility] desk interviewer Anemia 01/15/2018 Aneurysm of ascending aorta 05/29/2016 Assessment & Plan (10/14/2024 5:06 PM EST): -Most recent echo on 04/12/21, EF 60-65%, dilated ascending aorta 41mm -Echo on 04/05/20, EF 55-60%, dilated ascending aorta 42 mm, -Echo on 04/01/19 EF 60-65%, Aortic root dimension 37~43mm -Echo on 06/23/24 EF 60-65%, Ascending aortic aorta 41 mm. -Seen by his shelter director, Dr. Claudio in Jun 2024 -Continue surveillance transthoracic echocardiogram -Work on risk factor management Assessment & Plan (11/12/2023 12:18 PM EDT): -Most recent echo on 04/12/21, EF 60-65%, dilated ascending aorta 41mm -Echo on 04/05/20, EF 55-60%, dilated ascending aorta 42 mm, -Echo on 04/01/19 EF 60-65%, Aortic root dimension 37~43mm -Seen by his shelter director, Dr. Claudio on 03/14/23 -Pt advised to check next Cardiogram appt which is in August 2023 -Work on risk factor management Assessment & Plan (07/25/2023 6:22 AM EST): -Most recent echo on 04/12/21, EF 60-65%, dilated ascending aorta 41mm -Echo on 04/05/20, EF 55-60%, dilated ascending aorta 42 mm, -Echo on 04/01/19 EF 60-65%, Aortic root dimension 37~43mm -Seen by his shelter director, Dr. Claudio on 03/14/23 -Pt advised to check next Cardiogram appt which is in August 2023 -Work on risk factor management Assessment & Plan (05/26/2023 6:48 AM EDT): -Most recent echo on 04/12/21, EF 60-65%, dilated ascending aorta 41mm -Echo on 04/05/20, EF 55-60%, dilated ascending aorta 42 mm, -Echo on 04/01/19 EF 60-65%, Aortic root dimension 37~43mm -Seen by his shelter director, Dr. Claudio on 03/14/23 -Pt advised to check next Cardiogram appt which is in August 2023 -Work on risk factor management Assessment & Plan (04/25/2023 10:42 AM EDT): -Most recent echo on 04/12/21, EF 60-65%, dilated ascending aorta 41mm -Echo on 04/05/20, EF 55-60%, dilated ascending aorta 42 mm, -Echo on 04/01/19 EF 60-65%, Aortic root dimension 37~43mm -Seen by his shelter director, Dr. Claudio on 03/14/23 -Pt advised to check next Cardiogram appt which is in August 2023 -Work on risk factor management Assessment & Plan (11/30/2022 6:19 AM EDT): -Most recent echo on 04/12/21, EF 60-65%, dilated ascending aorta 41mm -Echo on 04/05/20, EF 55-60%, dilated ascending aorta 42 mm, -Echo on 04/01/19 EF 60-65%, Aortic root dimension 37~43mm -Seen by his shelter director, Dr. Claudio on n 07/11/22 -Pt advised to check next Cardiogram appt -Work on risk factor management Assessment & Plan (10/13/2022 5:10 PM EST): -Most recent echo on 04/12/21, EF 60-65%, dilated ascending aorta 41mm -Echo on 04/05/20, EF 55-60%, dilated ascending aorta 42 mm, -Echo on 04/01/19 EF 60-65%, Aortic root dimension 37~43mm -Seen by his shelter director, Dr. Claudio on n 07/11/22 -Pt advised [...] to [facility]. Pt will meet with Classifier Operator today. Assessment & Plan (10/13/2022 5:30 PM [...] 25 mg daily which was discontinued by director it - Improve CPAP adherence Tx history - Amlodipine was discontinued due to LE edema and furosemide was switched to torsemide by his shelter director. - Lisinopril was discontinued when he had [...] 25 mg daily which was discontinued by director it - Improve CPAP adherence Tx history - Amlodipine was discontinued due to LE edema and furosemide was switched to torsemide by his shelter director. - Lisinopril was discontinued when he had [...] furosemide was switched to torsemide by his shelter director. - Lisinopril was discontinued when he had [...] furosemide was switched to torsemide by his shelter director. - Lisinopril was discontinued when he had [...] metoprolol succinate 75 mg daily (Dr. Claudio, shelter director, increased to 100 mg daily, but his discharge medication list shows 75 mg daily) - Continue torsemide 20 mg bid - Continue spirolactone 25 mg daily - Continue lisinopril 5mg daily - Improve CPAP adherence ?? Tx history - Amlodipine was discontinued due to LE edema and furosemide was switched to torsemide by his shelter director. - Lisinopril was discontinued when he had [...] metoprolol succinate 75 mg daily (Dr. Claudio, shelter director, increased to 100 mg daily, but his discharge medication list shows 75 mg daily) - Continue torsemide 20 mg bid - Continue spirolactone 25 mg daily - Continue lisinopril 5mg daily - Improve CPAP adherence Tx history - Amlodipine was discontinued due to LE edema and furosemide was switched to torsemide by his shelter director. - Lisinopril was discontinued when he had [...] metoprolol succinate 75 mg daily (Dr. Claudio, shelter director, increased to 100 mg daily, but his discharge medication list shows 75 mg daily) - Continue torsemide 20 mg bid - Continue spirolactone 25 mg daily - Continue lisinopril 5mg daily - Improve CPAP adherence Tx history - Amlodipine was discontinued due to LE edema and furosemide was switched to torsemide by his shelter director. - Lisinopril was discontinued when he had [...] metoprolol succinate 75 mg daily (Dr. Claudio, shelter director, increased to 100 mg daily, but his discharge medication list shows 75 mg daily) - Continue torsemide 20 mg bid - Continue spirolactone 25 mg daily - Continue lisinopril 5mg daily - Improve CPAP adherence Tx history - Amlodipine was discontinued due to LE edema and furosemide was switched to torsemide by his shelter director. - Lisinopril was discontinued when he had [...] metoprolol succinate 75 mg daily (Dr. Claudio, shelter director, increased to 100 mg daily, but his discharge medication list shows 75 mg daily) - Continue torsemide 20 mg bid - Continue spirolactone 25 mg daily - Continue lisinopril 5mg daily - Improve CPAP adherence Tx history - Amlodipine was discontinued due to LE edema and furosemide was switched to torsemide by his shelter director. - Lisinopril was discontinued when he had [...] for AUD clinic this Saturday Kidney lesion, ruby, left 10/13/2022 06/15/2024 Assessment & Plan (07/25/2023 [...] organization. Date Type Department Care Team Description 12/04/2024 Patient Outreach [facility] [address] [place] [phone] Samantha Gonzales MD Care Coordination (Outreach) 11/12/2024 Orders Only GENERIC EXTERNAL DATA DEPARTMENT Provider, Generic External Data 11/03/2024 Patient Outreach [facility] [address] [place] [address] Samantha Gonzales MD Care Coordination (Outreach) 10/30/2024 Population Health Risk Score [facility] ([facility]) Department [address] [place] [phone] Provider, Population Health Generic 10/20/2024 Telephone [facility] [address] [place] [address] ORDER 10/08/2024 11:00 AM EST Office Visit [facility] [address] [place] [address] Samantha Gonzales MD Left hand pain (Primary [...] disorder; Chronic liver disease; Caregiver stress; Metabolic dysfunction-associat ed steatotic liver disease and increased alcohol intake (MetALD); Iron deficiency anemia, unspecified iron deficiency anemia type 10/08/2024 Patient Outreach [facility] [address] [place] [address] Samantha Gonzales MD Care Coordination (Outreach) 10/08/2024 Travel 10/06/2024 Orders Only [facility] External Provider, [facility] 10/06/2024 Telephone [facility] [address] [place] [phone] Darcy Mariee MA chart prep 09/17/[address] [address] Karyn Patel RN 09/15/2024 Patient Outreach [facility] [address] [place], [place] [phone] Samantha Gonzales MD Care Coordination (Outreach) 09/14/2024 Patient Outreach [address] [address] Brandon Hargrove Recovery Supports 09/11/2024 2:15 PM EST Office Visit [facility] [address] [place] [phone] Kerwin Mendoza MD Alcohol use, unspecified, uncomplicated (Primary Dx) 09/11/2024 1:00 PM EST Office Visit [facility] [address] [place] [address] [phone] Sara Alejandra MD Localized pain of left shoulder joint (Primary Dx) 09/11/2024 Telephone [facility] [address] [phone] Latisha Elise, ROSALINDA Question: plan of care 09/11/2024 Travel from Last 3 Months Immunizations Name Administration [...] Description 12/30/2024 10:00 AM EDT Office Visit [facility] [address] [place] [address] Issac, Lima, OD [address] [place] [address] 01/12/2025 11:30 AM EDT Office Visit [facility] [address] [place] [address] Samantha Gonzales MD [address] [place], [place] [phone] Health Maintenance Due Date Last Done Comments [...] Name Priority Date/Time Associated Diagnosis Comments CT SINUS FACIAL BONES WO CONTRAST Routine 12/10/2024 11:[address] HEAD WO CONTRAST Routine 12/10/2024 1 1:[address] CERVICAL SPINE WO CONTRAST Routine 12/10/2024 11:07 AM EDT DRUG MONITOR, PANEL 1, SCREEN, URINE Routine 11/12/2024 10:26 PM EDT URINALYSIS, COMPLETE, WITH REFLEX TO CULTURE Routine 11/12/2024 10:[address] HEAD WO CONTRAST Routine 11/12/2024 8 :[address] CERVICAL SPINE WO CONTRAST Routine 11/12/2024 8:38 PM EDT HIGH SENSITIVITY TROPONIN I Routine 11/12/2024 7:02 PM EDT ETHANOL Routine 11/12/2024 7:02 PM EDT LIPASE Routine 11/12/2024 7:02 PM EDT CREATINE KINASE, TOTAL Routine 11/12/2024 7:02 PM EDT MAGNESIUM Routine 11/12/2024 7:02 PM EDT COMPREHENSIVE METABOLIC PANEL Routine 11/12/2024 7:02 PM EDT CBC WITH AUTO DIFFERENTIAL Routine 11/12/2024 7:02 PM EDT CULTURE, URINE, ROUTINE Routine 11/12/2024 12:00 AM EDT XR HAND 1-2 VIEWS LEFT Routine 10/06/2024 11:03 PM EST XR ELBOW 1-2 VIEWS LEFT Routine 10/06/2024 11:00 PM EST XR WRIST 3+ VIEWS LEFT Routine 10/06/2024 10:58 PM EST POCT STERLING-14 URINE DRUG SCREEN Routine 09/11/2024 2:16 PM EST Alcohol use, unspecified, uncomplicated XR SHOULDER 2+ VIEWS LEFT Routine 09/11/2024 12:05 PM EST Localized pain of left shoulder joint LIPID PANEL WITH REFLEX TO DIRECT LDL Routine 07/02/2024 11:24 AM EST Essential hypertension Nausea vomiting and diarrhea HM COLONOSCOPY Routine 09/20/2023 HEPATITIS C AB W/REFL TO HCV RNA, QN, PCR Routine 01/28/2023 9:34 AM EDT Alcohol use disorder, severe, dependence (CMS/HCC) from Last 3 Months or Most Recently Relevant to Health Maintenance Results * CT Sinus Facial Bones w/o Contrast (12/10/2024 11:43 AM EDT) Anatomical Region Laterality Modality Computed Tomogra phy 12/10/2024 11:4 3 AM EDT Narrative 12/10/2024 11:59 AM EDT ? [facility] ?[address] ?[place] [address] ? CT Scan Report ? Signed ? Patient: ,Mohan A ?MR#: [id number] ?? [id number] ? : 1960 ?Acct:[id number] ? Age/Sex: 64 / M ?ADM Date: 04/24/25 ? Loc: HO.ED ? Attending Dr: ? Ordering Physician: Vito Marquez MD ?? Date of Service: 12/10/24 ?? Procedure(s): CT facial bones wo IV con ?? Accession Number(s): [id number] ? cc: Vito Marquez MD; Samantha Gonzales MD ? Report Number: ?? [id number]: Total DLP = 1557.00 mGy-cm ?? EXAMINATION: ?? CT HEAD AND FACIAL BONES WITHOUT CONTRAST ? CLINICAL INFORMATION: ?? Head strike ? COMPARISON: ?? CT head 11/12/2024. ? TECHNIQUE: ?? Contiguous axial imaging was performed from the skull base to vertex, ?? as well as the maxillofacial bones/mandible without intravenous ?? administration of contrast. Multiplanar reformatted imaging was ?? constructed from the axial data set. ? This CT examination was performed using dose optimization techniques as ?? appropriate, variously including the following: ?? *Automated exposure control ?? *Adjustment of mA and/or kV according to patient size (this includes ?? techniques or standardized protocols for targeted exams where dose is ?? matched to indication/reason for exam; i.e. extremities or head) ?? *Use of iterative reconstruction technique ? CT HEAD: ?? There is no evidence of intracranial hemorrhage or extra-axial fluid ?? collection. ?? There is no mass effect, or edema. No CT evidence of acute territorial ?? infarct. ?? Ventricles, sulci, and cisterns are diffusely somewhat prominent, in ?? keeping with age advanced cerebral and cerebellar volume loss. No ?? hydrocephalus. No midline shift. ?? Negative hyperdense MCA sign. Negative insular ribbon sign. ? Mild patchy supratentorial white matter hypodensities, in keeping with ?? small vessel ischemic changes. ?? Atherosclerotic calcifications of the carotid siphons. ?? Normal pituitary gland. ? Globes and orbital contents image normally. ?? No extracranial soft tissue abnormalities. ? The calvarium and skull base are intact without fracture. ? CT MAXILLOFACIAL BONES: ?? There are minimally displaced fractures of the bilateral nasal bones. ?? The nasal septum appears intact. The maxillary spines appear intact. ?? The nasal process appears grossly intact. ? The mandible is intact without fracture. The TM joints are normally ?? oriented. ? The maxilla, orbits, zygomatic arches, pterygoid plates, and sphenoid ?? bone are intact without fracture. ?? No significant nasal septal deviation. ? Paranasal sinuses are normally pneumatized throughout. No paranasal ?? sinus fractures. ?? The mastoids and tympanic cavities are normally aerated. ? Imaged maxillofacial/neck soft tissues appear normal. ? CT/CT facial bones wo IV con ?? IMPRESSION: ?? Noncontrast Head CT: ?? 1. No evidence of intracranial hemorrhage or mass effect. No fractures ?? of the calvarium or skull base. ?? 2. Age advanced cerebral and cerebellar volume loss. ? Maxillofacial CT: ?? 1. Suspect minimally displaced bilateral nasal bone fractures. ?? 2. No additional maxillofacial or mandibular fractures seen. ? Electronically signed by: ??Kaushal Trujillo MD ??12/10/2024 11:56 AM EDT RP ? Dictated By: ?Kaushal Trujillo MD ? Signed By: ?<Electronically signed by Kaushal Trujillo MD in OV> ?04/24/25 1156 ? DD/ 1143 ? TD/TT: 12/10/24 1143 ? Cell Tuber Hand: ? Procedure Note Sanket, Image - 12/10/[address] [place] [id number] [address] Scan Report Signed Patient: Mohan Gonzalez AMR#: [id number] : 1960cct:[id number] Age/Sex: 64 / MADM Date: 12/10/24 Loc: HO.ED Attending Dr: Ordering Physician: Vito Marquez MD Date of Service: 12/10/24 Procedure(s): CT facial bones wo IV con Accession Number(s): [id number] cc: Vito Marquez MD; Samantha Gonzales MD Report Number: [id number]: Total DLP = 1557.00 mGy-cm EXAMINATION: CT HEAD AND FACIAL BONES WITHOUT CONTRAST CLINICAL INFORMATION: Head strike COMPARISON: CT head 11/12/2024. TECHNIQUE: Contiguous axial imaging was performed from the skull base to vertex, as well as the maxillofacial bones/mandible without intravenous administration of contrast. Multiplanar reformatted imaging was constructed from the axial data set. This CT examination was performed using dose optimization techniques as appropriate, variously including the following: *Automated exposure control *Adjustment of mA and/or kV according to patient size (this includes techniques or standardized protocols for targeted exams where dose is matched to indication/reason for exam; i.e. extremities or head) *Use of iterative reconstruction technique CT HEAD: There is no evidence of intracranial hemorrhage or extra-axial fluid collection. There is no mass effect, or edema. No CT evidence of acute territorial infarct. Ventricles, sulci, and cisterns are diffusely somewhat prominent, in keeping with age advanced cerebral and cerebellar volume loss. No hydrocephalus. No midline shift. Negative hyperdense MCA sign. Negative insular ribbon sign. Mild patchy supratentorial white matter hypodensities, in keeping with small vessel ischemic changes. Atherosclerotic calcifications of the carotid siphons. Normal pituitary gland. Globes and orbital contents image normally. No extracranial soft tissue abnormalities. The calvarium and skull base are intact without fracture. CT MAXILLOFACIAL BONES: There are minimally displaced fractures of the bilateral nasal bones. The nasal septum appears intact. The maxillary spines appear intact. The nasal process appears grossly intact. The mandible is intact without fracture. The TM joints are normally oriented. The maxilla, orbits, zygomatic arches, pterygoid plates, and sphenoid bone are intact without fracture. No significant nasal septal deviation. Paranasal sinuses are normally pneumatized throughout. No paranasal sinus fractures. The mastoids and tympanic cavities are normally aerated. Imaged maxillofacial/neck soft tissues appear normal. CT/CT facial bones wo IV con IMPRESSION: Noncontrast Head CT: 1. No evidence of intracranial hemorrhage or mass effect. No fractures of the calvarium or skull base. 2. Age advanced cerebral and cerebellar volume loss. Maxillofacial CT: 1. Suspect minimally displaced bilateral nasal bone fractures. 2. No additional maxillofacial or mandibular fractures seen. Electronically signed by: Kaushal Trujillo MD 12/10/2024 11:56 AM EDT Dictated By: Kaushal Trujillo MD Signed By: <Electronically signed by Kaushal Trujillo MD in OV> 12/10/24 1156 DD/ 1143 TD/TT: 12/10/24 1143 Cell Tuber Hand: us [facility] External Provider IMG CT PROCEDURES Final Result * CT Head w/o Contrast (12/10/2024 11:14 AM EDT) Only the most recent of2 resultswithin the time period is included. Anatomical Region Laterality Modality Head, Neck Computed Tomogra phy 12/10/2024 11:1 4 AM EDT Narrative 12/10/2024 11:59 AM EDT ? [facility] ?[address] ?[place] [address] ? CT Scan Report ? Signed ? Patient: Mohan Gonzalez A ?MR#: [id number] ?? [id number] ? : 1960 ?Acct:[id number] ? Age/Sex: 64 / M ?ADM Date: 12/10/24 ? Loc: HO.ED ? Attending Dr: ? Ordering Physician: Vito Marquez MD ?? Date of Service: 12/10/24 ?? Procedure(s): CT head/brain wo IV con ?? Accession Number(s): [id number] ? cc: Vito Marquez MD; Samantha Gonzales MD ? Report Number: ?? [id number]: Total DLP = 1557.00 mGy-cm ?? EXAMINATION: ?? CT HEAD AND FACIAL BONES WITHOUT CONTRAST ? CLINICAL INFORMATION: ?? Head strike ? COMPARISON: ?? CT head 11/12/2024. ? TECHNIQUE: ?? Contiguous axial imaging was performed from the skull base to vertex, ?? as well as the maxillofacial bones/mandible without intravenous ?? administration of contrast. Multiplanar reformatted imaging was ?? constructed from the axial data set. ? This CT examination was performed using dose optimization techniques as ?? appropriate, variously including the following: ?? *Automated exposure control ?? *Adjustment of mA and/or kV according to patient size (this includes ?? techniques or standardized protocols for targeted exams where dose is ?? matched to indication/reason for exam; i.e. extremities or head) ?? *Use of iterative reconstruction technique ? CT HEAD: ?? There is no evidence of intracranial hemorrhage or extra-axial fluid ?? collection. ?? There is no mass effect, or edema. No CT evidence of acute territorial ?? infarct. ?? Ventricles, sulci, and cisterns are diffusely somewhat prominent, in ?? keeping with age advanced cerebral and cerebellar volume loss. No ?? hydrocephalus. No midline shift. ?? Negative hyperdense MCA sign. Negative insular ribbon sign. ? Mild patchy supratentorial white matter hypodensities, in keeping with ?? small vessel ischemic changes. ?? Atherosclerotic calcifications of the carotid siphons. ?? Normal pituitary gland. ? Globes and orbital contents image normally. ?? No extracranial soft tissue abnormalities. ? The calvarium and skull base are intact without fracture. ? CT MAXILLOFACIAL BONES: ?? There are minimally displaced fractures of the bilateral nasal bones. ?? The nasal septum appears intact. The maxillary spines appear intact. ?? The nasal process appears grossly intact. ? The mandible is intact without fracture. The TM joints are normally ?? oriented. ? The maxilla, orbits, zygomatic arches, pterygoid plates, and sphenoid ?? bone are intact without fracture. ?? No significant nasal septal deviation. ? Paranasal sinuses are normally pneumatized throughout. No paranasal ?? sinus fractures. ?? The mastoids and tympanic cavities are normally aerated. ? Imaged maxillofacial/neck soft tissues appear normal. ? CT/CT head/brain wo IV con ?? IMPRESSION: ?? Noncontrast Head CT: ?? 1. No evidence of intracranial hemorrhage or mass effect. No fractures ?? of the calvarium or skull base. ?? 2. Age advanced cerebral and cerebellar volume loss. ? Maxillofacial CT: ?? 1. Suspect minimally displaced bilateral nasal bone fractures. ?? 2. No additional maxillofacial or mandibular fractures seen. ? Electronically signed by: ??Kaushal Trujillo MD ??12/10/2024 11:56 AM EDT RP ? Dictated By: ?Kaushal Trujillo MD ? Signed By: ?<Electronically signed by Kaushal Trujillo MD in OV> ?12/10/24 1156 ? DD/ 1114 ? TD/TT: 12/10/24 1143 ? Cell Tuber Hand: ? Procedure Note Donotuseinterpreter, Image - 12/10/[address] [address] [address] Scan Report Signed Patient: Mohan Gonzalez AMR#: [id number] : 1960cct:[id number] Age/Sex: 64 / MADM Date: 12/10/24 Loc: HO.ED Attending Dr: Ordering Physician: Vito Marquez MD Date of Service: 12/10/24 Procedure(s): CT head/brain wo IV con Accession Number(s): [id number] cc: Vito Marquez MD; Samantha Gonzales MD Report Number: [id number]: Total DLP = 1557.00 mGy-cm EXAMINATION: CT HEAD AND FACIAL BONES WITHOUT CONTRAST CLINICAL INFORMATION: Head strike COMPARISON: CT head 11/12/2024. TECHNIQUE: Contiguous axial imaging was performed from the skull base to vertex, as well as the maxillofacial bones/mandible without intravenous administration of contrast. Multiplanar reformatted imaging was constructed from the axial data set. This CT examination was performed using dose optimization techniques as appropriate, variously including the following: *Automated exposure control *Adjustment of mA and/or kV according to patient size (this includes techniques or standardized protocols for targeted exams where dose is matched to indication/reason for exam; i.e. extremities or head) *Use of iterative reconstruction technique CT HEAD: There is no evidence of intracranial hemorrhage or extra-axial fluid collection. There is no mass effect, or edema. No CT evidence of acute territorial infarct. Ventricles, sulci, and cisterns are diffusely somewhat prominent, in keeping with age advanced cerebral and cerebellar volume loss. No hydrocephalus. No midline shift. Negative hyperdense MCA sign. Negative insular ribbon sign. Mild patchy supratentorial white matter hypodensities, in keeping with small vessel ischemic changes. Atherosclerotic calcifications of the carotid siphons. Normal pituitary gland. Globes and orbital contents image normally. No extracranial soft tissue abnormalities. The calvarium and skull base are intact without fracture. CT MAXILLOFACIAL BONES: There are minimally displaced fractures of the bilateral nasal bones. The nasal septum appears intact. The maxillary spines appear intact. The nasal process appears grossly intact. The mandible is intact without fracture. The TM joints are normally oriented. The maxilla, orbits, zygomatic arches, pterygoid plates, and sphenoid bone are intact without fracture. No significant nasal septal deviation. Paranasal sinuses are normally pneumatized throughout. No paranasal sinus fractures. The mastoids and tympanic cavities are normally aerated. Imaged maxillofacial/neck soft tissues appear normal. CT/CT head/brain wo IV con IMPRESSION: Noncontrast Head CT: 1. No evidence of intracranial hemorrhage or mass effect. No fractures of the calvarium or skull base. 2. Age advanced cerebral and cerebellar volume loss. Maxillofacial CT: 1. Suspect minimally displaced bilateral nasal bone fractures. 2. No additional maxillofacial or mandibular fractures seen. Electronically signed by: Kaushal Trujillo MD 12/10/2024 11:56 AM EDT Dictated By: Kaushal Trujillo MD Signed By: <Electronically signed by Kaushal Trujillo MD in OV> 12/10/24 1156 DD/ 1114 TD/TT: 12/10/24 1143 Cell Tuber Hand: [facility] External Provider IMG CT PROCEDURES Final Result * CT Cervical Spine w/o Contrast (12/10/2024 11:07 AM EDT) Only the most recent of2 resultswithin the time period is included. Anatomical Region Laterality Modality Spine, C-spine Computed Tomogra phy 12/10/2024 11:0 7 AM EDT Narrative 12/10/2024 12:19 PM EDT ? [facility] ?[address] ?[place] [address] ? CT Scan Report ? Signed ? Patient: ,Mohan A ?MR#: [id number] ?? [id number] ? : 1960 ?Acct:[id number] ? Age/Sex: 64 / M ?ADM Date: 04/24/25 ? Loc: HO.ED ? Attending Dr: ? Ordering Physician: Vito Marquez MD ?? Date of Service: 12/10/24 ?? Procedure(s): CT cervical spine wo IV con ?? Accession Number(s): [id number] ? cc: Vito Marquez MD; Samantha Gonzales MD ? Report Number: ?? [id number]: Total DLP = 1557.00 mGy-cm ?? EXAMINATION: ?? CT CERVICAL SPINE WITHOUT CONTRAST ? CLINICAL INFORMATION: ?? Head strike, neck pain. ? COMPARISON: ?? 11/12/2024. ? TECHNIQUE: ?? Spiral CT imaging of the cervical spine performed in axial plane ?? without contrast. Multiplanar reformatted images were constructed from ?? the axial data set. ? This CT examination was performed using dose optimization techniques as ?? appropriate, variously including the following: ?? *Automated exposure control ?? *Adjustment of mA and/or kV according to patient size (this includes ?? techniques or standardized protocols for targeted exams where dose is ?? matched to indication/reason for exam; i.e. extremities or head) ?? *Use of iterative reconstruction technique ? FINDINGS: ?? CORONAL ALIGNMENT: ?? -Minimal right convex scoliosis, possibly positional. ? SAGITTAL ALIGNMENT: ?? -Normal lordosis. No subluxations. ? C1-C2 AND CRANIOCERVICAL JUNCTION: ?? -Intact and normally aligned. There are mild degenerative changes of ?? the atlantoaxial joint. ? VERTEBRAL BODIES AND FACETS: ?? -There is no fracture, impression deformity, traumatic subluxation, or ?? suspicious bone lesion. ?? -There is normal facet alignment bilaterally. ? DISCS: ?? -Severe disc degeneration present C5-6 and C6-7. ?? - ? CENTRAL CANAL: ?? -No evidence of high-grade central canal narrowing. ?? -There are dorsal disc herniations C3-4, C4-5, C5-6, and C6-7, ?? resulting in at least moderate central canal stenosis at these levels. ? PREVERTEBRAL AND PARAVERTEBRAL SOFT TISSUES: ?? -There is no prevertebral or paravertebral soft tissue edema or fluid ?? collection. ?? -The thyroid demonstrates a coarse calcification in the inferior ?? posterior right lobe. It is otherwise normal in appearance. ? LUNG APICES: ?? -Clear bilaterally. No pneumothorax. ? CT/CT cervical spine wo IV con ?? IMPRESSION: ?? 1. No CT evidence of acute cervical spine fracture or injury. ?? 2. Degenerative spondylosis. ? Electronically signed by: ??Kaushal Trujillo MD ??12/10/2024 12:16 PM EDT RP ? Dictated By: ?Kaushal Trujillo MD ? Signed By: ?<Electronically signed by Kaushal Trujillo MD in OV> ?12/10/24 1216 ? DD/ 1107 ? TD/TT: 12/10/24 1143 ? Cell Tuber Hand: ? Procedure Note Donlondonletater, Image - 12/10/[address] [place] [address] [address] Scan Report Signed Patient: Mohan Gonzalez AMR#: [id number] : 1960cct:[id number] Age/Sex: 64 / MADM Date: 12/10/24 Loc: HO.ED Attending Dr: Ordering Physician: Vito Marquez MD Date of Service: 12/10/24 Procedure(s): CT cervical spine wo IV con Accession Number(s): [id number] cc: Vito Marquez MD; Samantha Gonzales MD Report Number: [id number]: Total DLP = 1557.00 mGy-cm EXAMINATION: CT CERVICAL SPINE WITHOUT CONTRAST CLINICAL INFORMATION: Head strike, neck pain. COMPARISON: 11/12/2024. TECHNIQUE: Spiral CT imaging of the cervical spine performed in axial plane without contrast. Multiplanar reformatted images were constructed from the axial data set. This CT examination was performed using dose optimization techniques as appropriate, variously including the following: *Automated exposure control *Adjustment of mA and/or kV according to patient size (this includes techniques or standardized protocols for targeted exams where dose is matched to indication/reason for exam; i.e. extremities or head) *Use of iterative reconstruction technique FINDINGS: CORONAL ALIGNMENT: -Minimal right convex scoliosis, possibly positional. SAGITTAL ALIGNMENT: -Normal lordosis. No subluxations. C1-C2 AND CRANIOCERVICAL JUNCTION: -Intact and normally aligned. There are mild degenerative changes of the atlantoaxial joint. VERTEBRAL BODIES AND FACETS: -There is no fracture, impression deformity, traumatic subluxation, or suspicious bone lesion. -There is normal facet alignment bilaterally. DISCS: -Severe disc degeneration present C5-6 and C6-7. - CENTRAL CANAL: -No evidence of high-grade central canal narrowing. -There are dorsal disc herniations C3-4, C4-5, C5-6, and C6-7, resulting in at least moderate central canal stenosis at these levels. PREVERTEBRAL AND PARAVERTEBRAL SOFT TISSUES: -There is no prevertebral or paravertebral soft tissue edema or fluid collection. -The thyroid demonstrates a coarse calcification in the inferior posterior right lobe. It is otherwise normal in appearance. LUNG APICES: -Clear bilaterally. No pneumothorax. CT/CT cervical spine wo IV con IMPRESSION: 1. No CT evidence of acute cervical spine fracture or injury. 2. Degenerative spondylosis. Electronically signed by: Kaushal Trujillo MD 12/10/2024 12:16 PM EDT Dictated By: Kaushal Trujillo MD Signed By: <Electronically signed by Kaushal Trujillo MD in OV> 12/10/24 1216 DD/ 1107 TD/TT: 12/10/24 1143 Cell Tuber Hand: [facility] External Provider IMG CT PROCEDURES Final Result * (ABNORMAL) Urinalysis, Complete, with Reflex to Culture (11/12/2024 10:26 PM EDT) Color Urine Yellow [facility] Appearance Urine Clear [facility] PH 5.5 5.0 - 9.0 [facility] Glucose Urine UA Negative Negative mg/dL [facility] Urine Blood Trace(A) Negative [facility] Specific [place] - Urine <=1.005 1.005 - 1.025 [facility] Urine Protein Negative Neg-Trace mg/dL [facility] Urine Ketones Negative Negative mg/dL [facility] Nitrite Urine Negative Negative [facility] Leukocyte Esterase Urine Large (3+)(A) Negative [facility] RBC Urine 0-2 0 - 2 /HPF [facility] Urine WBC >50(A) 0 - 5 /HPF [facility] Urine Squamous Epithelial Cell 0-2 0 - 2 /HPF [facility] Urine Bacteria 2+ None Seen [facility] Hyaline Casts, Urine 0-2 0 - 2 /LPF [facility] 11/12/2024 10:2 6 PM EDT 11/12/2024 10:35 PM EDT Narrative [facility] - 11/12/2024 10:43 PM EDT [id number], [place] us Generic External Data Provider LAB URINE ORDERAB LES Final Result [facility] [address] [place] [phone] * Drug Monitoring, Panel 1, Screen, Urine (11/12/2024 10:26 PM EDT) Opiate Screen Urine Not Detected Not Detect [facility] Comment:Opiate cut-off is 30 0 ng/mL.Positive results are unconfirmed and should not be used fornon-medical purposes. Barbiturates, Urine Not Detected Not Detect [facility] Comment:Barbiturate cut-off is 200 ng/mL.Positive results are unconfirmed and should not be used fornon-medical purposes. Phencyclidine Screen Urine Not Detected Not Detect [facility] Comment:Phencyclidine cut-of f is 25 ng/mL.Positive results are unconfirmed and should not be used fornon-medical purposes. Amphetamine Screen Urine Not Detected Not Detect [facility] Comment:Amphetamine cut-off is 1000 ng/mL.Positive results are unconfirmed and should not be used fornon-medical purposes. Benzodiazepines Screen Urine Not Detected Not Detect [facility] Comment:Benzodiazepine cut-o ff is 200 ng/mL.Positive results are unconfirmed and should not be used fornon-medical purposes. Cocaine Screen Urine Not Detected Not Detect [facility] Comment:Cocaine cut-off is 3 00 ng/mL.Positive results are unconfirmed and should not be used fornon-medical purposes. Cannabinoid Screen Urine Not Detected Not Detect [facility] Comment:Cannabinoid cut-off is 50 ng/mL.Positive results are unconfirmed and should not be used fornon-medical purposes. Methadone Screen, Urine Not Detected Not Detect ng/mL [facility] Comment:Methadone cut-off is 300 ng/mL.Positive results are unconfirmed and should not be used fornon-medical purposes. FENTANYL URINE Not Detected Not Detect [facility] Comment:Fentanyl cut-off is 1 ng/mL.Positive results are unconfirmed and should not be used fornon-medical purposes. Oxycodone Urine Screen Not Detected Not Detect ng/mL [facility] Comment:Oxycodone cut-off is 100 ng/mL.Positive results are unconfirmed and should not be used fornon-medical purposes. Buprenorphine Screen Not Detected Not Detect ng/mL [facility] Comment:Buprenorphine cut-of f is 5 ng/mL.Positive results are unconfirmed and should not be used fornon-medical purposes. 11/12/2024 10:2 6 PM EDT 11/12/2024 10:32 PM EDT us Generic External Data Provider LAB URINE ORDERAB LES Final Result [facility] [address] [place] [phone] * High Sensitivity Troponin I (11/12/2024 7:02 PM EDT) TROPONIN I HIGH SENSITIVITY <2.7 <3.5 - 35.0 ng/L [facility] Comment:The Erwin high sens itivity Troponin-I results should beused in conjunction with other diagnostic information suchas ECG, clinical observations and information, and patientsymptoms to aid in the diagnosis of MD. 11/12/2024 7:02 PM EDT 11/12/2024 7:05 PM EDT us Generic External Data Provider LAB BLOOD ORDERAB LES Final Result Performing Organization Address [facility]/ZIP Co de Phone Number [facility] [address] [place] [phone] * (ABNORMAL) Ethanol (11/12/2024 7:02 PM EDT) ETHANOL (MG/DL) IN SER/PLAS 346(HH) mg/dL [facility] Comment:Serum/plasma ethanol results are to be used formedical/treatment purposes only. 11/12/2024 7:02 PM EDT 11/12/2024 7:05 PM EDT us Generic External Data Provider LAB BLOOD ORDERAB LES Final Result Performing Organization Address [facility]/ZIP Co de Phone Number [facility] [address] [place] [phone] * (ABNORMAL) CBC auto differential (11/12/2024 7:02 PM EDT) Pathologist [facility] White Blood Count 11.9(H) 4.8 - 10.8 X10*3/uL [facility] Red Blood Count 3.69(L) 4.60 - 5.80 X10*6/uL [facility] Hemoglobin 10.1(L) 14.0 - 18.0 g/dl [facility] Hematocrit 29.7(L) 42.0 - 52.0 % [facility] Mean Corpuscular Volume 80.5 80.0 - 98.0 fL [facility] Mean Corpuscular Hemoglobin 27.4 27.0 - 33.0 pg [facility] Mean Corpuscular HGB Conc 34.0 31.0 - 36.0 g/dl [facility] Red Cell Distribution Width 15.8 11.0 - 16.0 % [facility] Platelet Count 231 160 - 400 X10*3/uL [facility] Mean Platelet Volume 8.7(L) 9.4 - 12.4 fL [facility] Neutrophils Percent Auto 57.0 45 - 73 % [facility] Imm Gran Pct Auto 0.5(H) 0.0 - 0.4 % [facility] Lymphocytes Percent Auto 32.5 20 - 40 % [facility] Monocytes Percent Auto 4.9 2 - 11 % [facility] Eosinophils Percent Auto 4.0 0 - 4 % [facility] Basophils Percent Auto 1.1 0 - 2 % [facility] NRBC Pct Auto 0.0 0.0 - 0.2 /100WBC [facility] Neutrophils Absolute Auto 6.8 2.0 - 8.3 x10*3/uL [facility] Imm Gran Abs Auto 0.06(H) 0.00 - 0.03 X10*3/uL [facility] Lymphocytes Absolute Auto 3.9 1.2 - 4.9 X10*3/uL [facility] Monocytes Absolute Auto 0.6 0.1 - 1.2 X10*3/uL [facility] Eosinophils Absolute Auto 0.5(H) 0.0 - 0.4 X10*3/uL [facility] Basophils Absolute Auto 0.1 0.0 - 0.2 X10*3/uL [facility] NRBC Abs Auto 0.000 0.0 - 0.012 X10*3/uL [facility] 11/12/2024 7:02 PM EDT 11/12/2024 7:05 PM EDT us Generic External Data Provider LAB BLOOD ORDERAB LES Final Result [facility] [address] [place] [phone] * Magnesium (11/12/2024 7:02 PM EDT) Magnesium 1.9 1.6 - 2.6 mg/dL [facility] 11/12/2024 7:02 PM EDT 11/12/2024 7:05 PM EDT us Generic External Data Provider LAB BLOOD ORDERAB LES Final Result Performing Organization Address [facility]/ZIP Co de Phone Number [facility] [address] [place] [address] [phone] * Lipase (11/12/2024 7:02 PM EDT) Lipase 14 8 - 78 U/L [facility] 11/12/2024 7:02 PM EDT 11/12/2024 7:05 PM EDT us Generic External Data Provider LAB BLOOD ORDERAB LES Final Result Performing Organization Address [facility] Co de Phone Number [facility] [address] [place] [phone] * Creatine Kinase, Total (11/12/2024 7:02 PM EDT) Pathologist [facility] Creatine Kinase Total 45 38 - 174 U/L [facility] 11/12/2024 7:02 PM EDT 11/12/2024 7:05 PM EDT us Generic External Data Provider LAB BLOOD ORDERAB LES Final Result Performing Organization Address [facility] Co de Phone Number [facility] [address] [place] [address] [phone] * (ABNORMAL) Comprehensive Metabolic Panel (11/12/2024 7:02 PM EDT) Sodium 135 135 - 145 mmol/L [facility] Potassium 4.3 3.3 - 5.1 mmol/L [facility] Chloride 105 96 - 108 mmol/L [facility] Carbon Dioxide 17(L) 22 - 29 mmol/L [facility] Anion Gap 17 12 - 20 [facility] Urea Nitrogen (BUN) 46(H) 9 - 16 mg/dL [facility] Creatinine, Serum 1.56(H) 0.5 - 1.4 mg/dL [facility] Creatinine Clr Calc Pharmacy 53.3 [facility] Comment:eGFR (calculated fro m the MDRD study equation) and eCrCl(calculated from the Cockcroft-Gault equation) are based ondifferent parameters and may not yield comparable results.If eCrCl result is absurd, please check patient'sheight/weight. Estimated Glomerular Filt Rate 45 [facility] Comment:Chronic Kidney Disea se: Estimated GFR < 60 mL/min/1.00n5Iufwod Kidney Disease: Estimated GFR < 15 mL/min/1.73m2 Glucose 83 60 - 115 mg/dL [facility] Calcium 9.2 8.4 - 10.2 mg/dL [facility] Bilirubin, Total 0.4 0.0 - 1.0 mg/dL [facility] Aspartate Amino Transferase 26 5 - 37 U/L [facility] Alanine Aminotransferase 12 0 - 40 U/L [facility] Total Protein 7.7 6.5 - 8.0 g/dL [facility] Albumin Level 4.0 3.5 - 5.0 g/dL [facility] Alkaline Phosphatase 136(H) 39 - 117 U/L [facility] 11/12/2024 7:02 PM EDT 11/12/2024 7:05 PM EDT us Generic External Data Provider LAB BLOOD ORDERAB LES Final Result [facility] [address] [place] [phone] * Culture, Urine, Routine (11/12/2024 12:00 AM EDT) Urine Urine specimen from urinary conduit / Unknown 11/12/2024 11/12/2024 Comment:Urine Cath Narrative [facility] - 11/15/2024 7:38 AM EDT Proteus mirabilis Quant > 100,000 cfu/mL Proteus mirabilis: Ampicillin <=2(S) Proteus mirabilis: Cefazolin (Urine) 4(S) Proteus mirabilis: Cefepime <=0.12(S) Proteus mirabilis: Ceftriaxone <=0.25(S) Proteus mirabilis: Ciprofloxacin <=0.06(S) Proteus mirabilis: Gentamicin <=1(S) Proteus mirabilis: Nitrofurantoin 128(R) Proteus mirabilis: Trimethoprim/Sulfamethoxazole <=20(S) Specimen Source: Urine Catheterized us Generic External Data Provider LAB MICROBIOLOGY - GENERAL ORDERABLES Final Result [facility] [address] [place] [address] [phone] * XR Hand 1-2 Views Left (10/06/2024 11:03 PM EST) Anatomical Region Laterality Modality Upper Extremities, Hand Left Radiogra phic Imaging 10/06/2024 11:0 3 PM EST Narrative 10/06/2024 11:05 PM EST ? [facility] ?[address] ?[place] [address] ?XRay Report ? Signed ? Patient: Mohan Gonzalez ?MR#: [id number] ?? [id number] ? : 1960 ?Acct:[id number] ? Age/Sex: 64 / M ?ADM Date: 10/06/24 ? Loc: HO.ED ? Attending Dr: ? Ordering Physician: Reese Melendez MD ?? Date of Service: 10/06/24 ?? Procedure(s): XR hand LT 2V ?? Accession Number(s): [id number] ? cc: Reese Melendez MD; Samantha Gonzales [...] by Maximo Sainz MD in OV> ? 10/06/242304 ? DD/ 02 ? TD/TT: 10/06/242302 ? Cell Tuber Hand: ? Procedure Note Sanket, Image - 10/07/[address] [address] XRay Report Signed Patient: Mohan Gonzalez AMR#: [id number] : 1960cct:[id number] Age/Sex: 64 / MADM Date: 10/06/24 Loc: HO.ED Attending Dr: Ordering Physician: Reese Melendez MD Date of Service: 10/06/24 Procedure(s): XR hand LT 2V Accession Number(s): [id number] cc: Reese Melendez MD; Samantha Gonzales MD [...] in OV> 10/06/242304 DD/ 02 TD/TT: 10/06/242302 Cell Tuber Hand: us [facility] External Provider IMG XR PROCEDURES Edited Result - Final * XR Elbow 1-2 Views Left (10/06/2024 11:00 PM EST) Anatomical Region Laterality Modality Upper Extremities, Elbow Left Radiogr aphic Imaging 10/06/2024 11:0 0 PM EST Narrative 10/06/2024 11:02 PM EST ? [facility] ?[address] ?[place] [address] ?XRay Report ? Signed ? Patient: ummer,Mohan A ?MR#: [id number] ?? [id number] ? : 1960 ?Acct:[id number] ? Age/Sex: 64 / M ?ADM Date: 02/18/25 ? Loc: HO.ED ? Attending Dr: ? Ordering Physician: Reese Melendez MD ?? Date of Service: 10/06/24 ?? Procedure(s): XR elbow LT 2V ?? Accession Number(s): [id number] ? cc: Reese Melendez MD; Samantha Gonzales [...] in OV> ? 10/06/24 2302 ? DD/ 2300 ? TD/TT: 10/06/24 2300 ? Cell Tuber Hand: ? Procedure Note Sanket, Mallorie - 10/07/[address] [address] XRay Report Signed Patient: Mohan Gonzalez AMR#: [id number] : 1960cct:[id number] Age/Sex: 64 / MADM Date: 10/06/24 Loc: HO.ED Attending Dr: Ordering Physician: Reese Melendez MD Date of Service: 10/06/24 Procedure(s): XR elbow LT 2V Accession Number(s): [id number] cc: Reese Melendez MD; Samantha Gonzales MD [...] in OV> 10/06/242301 DD/ 99 TD/TT: 10/06/242299 Cell Tuber Hand: [facility] External Provider IMG XR PROCEDURES Edited Result - Final * XR Wrist 3+ Views Left (10/06/2024 10:58 PM EST) Anatomical Region Laterality Modality Upper Extremities, Wrist Left Radiogr aphic Imaging 10/06/2024 10:5 8 PM EST Narrative 10/06/2024 11:00 PM EST ? [facility] ?[address] ?[place], [place] [address] ?XRay Report ? Signed ? Patient: Mohan Gonzalez A ?MR#: [id number] ?? [id number] ? : 1960 ?Acct:[id number] ? Age/Sex: 64 / M ?ADM Date: 10/06/24 ? Loc: HO.ED ? Attending Dr: ? Ordering Physician: Reese Melendez MD ?? Date of Service: 10/06/24 ?? Procedure(s): XR wrist LT min 3V ?? Accession Number(s): [id number] ? cc: Reese Melendez MD; Samantha Gonzales [...] ? DD/ 57 ? TD/TT: 10/06/242257 ? Cell Tuber Hand: ? Procedure Note Mallorie Coles - 10/06/[address] [address] XRay Report Signed Patient: KeysharoryTwilah AMR#: [id number] : 1Acct:[id number] Age/Sex: 64 / MADM Date: 10/06/24 Loc: HO.ED Attending Dr: Ordering Physician: Reese Melendez MD Date of Service: 10/06/24 Procedure(s): XR wrist LT min 3V Accession Number(s): [id number] cc: Reese Melendez MD; Samantha Gonzales MD [...] in OV> 10/06/242299 DD/ 57 TD/TT: 10/06/242257 Cell Tuber Hand: [facility] External Provider IMG XR PROCEDURES Edited [...] PM EST Narrative 09/11/2024 1:15 PM EST ?[facility] ?[address] ?[place] [address] ?XRay Report ? Signed ? Patient: Drummer,Mohan A ?MR#: [id number] ?? [id number] ? : 1960 ?Acct:[id number] ? Age/Sex: 64 / M ?ADM Date: 09/11/24 ? Loc: HO.HHCX ? Attending Dr: Sara Alejandra MD ? Ordering Physician: Sara Alejandra MD ?? Date of Service: 09/11/24 ?? Procedure(s): XR shoulder LT min 2V ?? Accession Number(s): [id number] ? cc: Sara Alejandra MD ? EXAMINATION: [...] Trujillo MD ??09/11/2024 01:12 PM EST RP ?? Workstation: [id number] ? Dictated By: ?Kaushal Trujillo MD ? Signed By: ?<Electronically signed by Kaushal Trujillo MD in OV> ?09/11/24 1312 ? DD/ 1205 ? TD/TT: 09/11/24 1230 ? Cell Tuber Hand: ? Procedure Note Mallorie Coles - 09/11/[address] [address] XRay Report Signed Patient: Mohan Gonzalez AMR#: [id number] : 1Acct:[id number] Age/Sex: 64 / MADM Date: 09/11/24 [facility]: Sara Alejandra MD Ordering Physician: Sara Alejandra MD Date of Service: 09/11/24 Procedure(s): XR shoulder LT min 2V Accession Number(s): [id number] cc: Sara Alejandra MD EXAMINATION: XR SHOULDER, [...] 09/11/24 1312 DD/ 1205 TD/TT: 09/11/24 1230 Cell Tuber Hand: Sara Alejandra MD IMG XR PROCEDURES Final Re sult * Lipid Panel with Reflex to Direct LDL (07/02/2024 11:24 AM EST) Triglycerides 83 <150 mg/dL [facility] Comment:Desirable Triglyceri de: less than 150 mg/dLBorderline High Triglyceride 150-199 mg/dLHigh Triglyceride: 200-499 mg/dLVery High Triglyceride: greater than or equal to 5OO mg/dL Cholesterol 150 <200 mg/dL [facility] Comment:Desirable Cholestero l: less than 200 mg/dLBorderline High Cholesterol: 200-239 mg/dLHigh Cholesterol: greater than 239 mg/dL LDL Cholesterol Calculated 68 <100 mg/dL [facility] Comment:Desirable LDL: less than 100 mg/dLNear Optimal/Above Optimal LDL: 110- 129 mg/dLBorderline High LDL: 130-159 mg/dLHigh LDL: 160-189 mg/dLVery High LDL: greater than or equal to 190 mg/dL HDL Cholesterol 66 >40 mg/dL [facility] Comment:Desirable HDL: great er than 40 mg/dL Note: This HDL assay may give artificially low results in patients with liver disease. Blood 07/02/2024 11:2 4 AM EST 07/02/2024 1:19 PM EST Samantha Gonzales MD LAB BLOOD ORDERABLES Final Resul t Performing Organization Address City/[facility] Co de Phone Number [facility] [address] [place] [phone] * Hm Colonoscopy (09/20/2023) Colonoscopy Normal Normal Marixa Colvin MD HEALTH MAINTENANCE Final Result * Hepatitis C Antibody with Reflex to HCV, RNA, Quantitative, Real-Time PCR (01/28/2023 9:34 AM EDT) Hepatitis C Antibody NON-REACT GENI NON-REACT GENI [employer] Index 0.04 <1.00 [employer] [place] [facility] [employer] Comment: HCV antibody was non-reactive. There is no laboratory evidence of HCV infection. In most cases, no further action is required. However, if recent HCV exposure is suspected, a test for HCV RNA (test code 87118) is suggested. For additional information please refer to http://education.Vionic/faq/ZXN34v3 (This link is being provided for informational/ educational purposes only.) Blood Venous blood specimen / Unknown 01/28/2023 9:34 AM EDT 01/28/2023 9:34 AM EDT Narrative [facility] - 01/28/2023 9:34 PM EDT FASTING:YES FASTING: YES Kerwin Mendoaz MD LAB BLOOD ORDERABLES Final Resul t Performing Organization Address City/[facility]/ZIP Co de Phone Number [address], [place] [address] [employer] [address] [place] [address] from Last 3 Months or Most Recently Relevant to Health Maintenance Insurance [facility] C3 Care Teams System Sales Consultant Relationship Specialty Start Date End Date Samantha Gonzales MD [address] [place] [address] PCP - General Family Medicine 07/09/13 [facility] 05/17/24
--- OUTSIDE RECORDS SUMMARY | 2024-12-10 13:19 | XMS_ITS | Encounter Summary ---
Author Organization [employer] Address [address] [place] [address] 7[address] [place] [address] Care Team Providers Care Green Jobs Trainer Name Role Phone Samantha Gonzales MD Primary Care Provider [phone] Reason for Visit * Reason Onset Date Comments OV 01/2601/24/2024 Encounter Details Date Type Department Care Team ([facility] st Contact Info) Description 01/24/2024 Telephone [facility] [address] [place], [place] [phone] Samantha Gonzales MD [address] [place], [place] [phone] OV 01/26 Social History Tobacco Use Types [...] state he is currently in rehab in [place] and due to a set back pt does not have any transportation to make it to [place] on Saturday. If any questions please contact pt at [phone]. documented in this encounter Plan of Treatment Upcoming Encounters Date Type Department Care Team (Late st Contact Info) Description 12/30/2024 10:00 AM EDT Office Visit [facility] [address] [place] [address] Issac, [place], OD [address] [place] [address] 01/12/2025 11:30 AM EDT Office Visit [facility] [address] [place] [address] Samantha Gonzales MD [address] [place] [address] documented as of this encounter Visit Diagnoses Not on filedocumented in this encounter Additional Health Concerns Assessment Noted Time PHQ-9 Depression Total Score: 3 12/15/19 23 1:37 PM EDT documented as of this encounter Care Teams Green Jobs Trainer Relationship Specialty Start Date End Date Samantha Gonzales MD [address] [place] [address] PCP - General Family Medicine 07/09/13 [facility] 05/17/24 documented as of this encounter
--- OUTSIDE RECORDS SUMMARY | 2024-12-10 13:19 | XMS_ITS | Encounter Summary ---
Author Organization [employer] Address [address] [place] [address] 7t [place] [address] Care Team Providers Care Head Of Global Strategic Partnerships Name Role Phone Samantha Gonzales MD Primary Care Provider [phone] Encounter Details Date Type Department Care Team ([facility] Contact Info) Description 12/17/2022 Abstract [facility] [address] [place], [place] [phone] Zee Szymanski MD [address] [place], [place] [phone] Social History Tobacco Use Types Packs/Day Years [...] Upcoming Encounters Date Type Department Care Team ([facility] Contact Info) Description 12/30/2024 10:00 AM EDT Office Visit [facility] [address] [place], [place] [phone] Issac, [place], OD [address] [place] [address] 01/12/2025 11:30 AM EDT Office Visit [facility] [address] [place] [address] Samantha Gonzales MD [address] [place], [place] [phone] documented as of this encounter Visit Diagnoses Not on filedocumented in this encounter Additional Health Concerns Assessment Noted Time PHQ-9 Depression Total Score: 3 12/15/19 23 1:37 PM EDT documented as of this encounter Care Teams Head Of Global Strategic Partnerships Relationship Specialty Start Date End Date Samantha Gonzales MD [address] [place], [place] [phone] PCP - General Family Medicine 07/09/13 [facility] 05/17/24 documented as of this encounter
--- OUTSIDE RECORDS SUMMARY | 2024-12-10 13:19 | XMS_ITS | Encounter Summary ---
Author Organization [employer] Address [address] [place] [address] [address] [place] [address] Care Team Providers Care President/[employer]iences Name Role Phone Samantha Gonzales MD Primary Care Provider [phone] Reason for Visit * Reason Onset Date Comments Nurse Triage 06/22/2024 Encounter Details Date Type Department Care Team ([facility] st Contact Info) Description 06/22/2024 Telephone [facility] [address] [place], [place] [phone] Samantha Gonzales MD [address] [place], [place] [phone] Nurse Triage Social History Tobacco Use Types [...] to Pt reports that a person from [employer] comes every 2-3 days and changes dressing [...] booking. Pt will have another visit with [employer] prior to apt. Protocol Used: Wound Infection [...] Description 12/30/2024 10:00 AM EDT Office Visit [facility] [address] [place] [address] Lima [place]en[place], OD [address] [place] [address] 01/12/2025 11:30 AM EDT Office Visit [facility] [address] [place] [address] Samantha Gonzales MD [address] [place] [address] documented as of this encounter Visit Diagnoses Not on filedocumented in this encounter Additional Health Concerns Assessment Noted Time PHQ-9 Depression Total Score: 3 12/15/19 23 1:37 PM EDT documented as of this encounter Care Teams President/[employer] Relationship Specialty Start Date End Date Samantha Gonzales MD [address] [place] [address] PCP - General Family Medicine 07/09/13 [facility] 05/17/24 documented as of this encounter
--- OUTSIDE RECORDS SUMMARY | 2024-12-10 13:19 | XMS_ITS | Encounter Summary ---
Author Organization [employer] Address [address] [place] [address] 7t [place] [address] Care Team Providers Care Braid Maker Name Role Phone Samantha Gonzales MD Primary Care Provider [phone] Reason for Visit * Reason Onset Date Comments urgent matter 10/10/2022 Encounter Details Date Type Department Care Team ([facility] st Contact Info) Description 10/10/2022 Telephone [facility] [address] [place], [place] [phone] Samantha Gonzales MD [address] [place], [place] [phone] urgent matter Social History Tobacco Use Types [...] EST Spoke with Karyn. Attended the court. And Taxi Instructor Bus Trolley did not agree with Section 35 * Telephone Encounter - Luz Elena Ball Jones - 10/10/2022 1:58 PM EST Tc from Karyn with [facility] regarding to pt. Karyn states that is an urgent matter regarding to [address] and will need to speak with PCP, regarding the matter to set up a zoom meeting with PCP and the court. Gum Remover contacted PCP in advise epic chat, and let PCP know what's going on. Please contact Karyn at [phone] documented in this encounter Plan of Treatment Upcoming Encounters Date Type Department Care Team (Late st Contact Info) Description 12/30/2024 10:00 AM EDT Office Visit [facility] [address] [place] [address] Lima Daven[place], OD [address] [place] [address] 01/12/2025 11:30 AM EDT Office Visit [facility] [address] [place] [address] Samantha Gonzales MD [address] [place] [address] documented as of this encounter Visit Diagnoses Not on filedocumented in this encounter Care Teams Braid Maker Relationship Specialty Start Date End Date Samantha Gonzales MD [address] [place] [address] PCP - General Family Medicine 07/09/13 [facility] 05/17/24 documented as of this encounter
--- OUTSIDE RECORDS SUMMARY | 2024-12-10 13:19 | XMS_ITS | Encounter Summary ---
Author Organization [employer] Address [address] [place] [address] 7[address] [place] [address] Care Team Providers Care Cloth Framer Name Role Phone Samantha Gonzales MD Primary Care Provider [phone] Reason for Referral * Imaging (Routine) - Closed Specialty Diagnoses / Procedures Referred By Mildred silva Referred To Contact Diagnoses Thyroid nodule Procedures US Guided Thyroid Biopsy Samantha Gonzales MD [address] [place] [address] Phone: tel: fax: [address] Phone: tel: fax: Referral ID Status Reason Start Date Expiration Date Visits Re quested Visits Authorized [id number] Closed 11/14/2022 05/13/2023 1 1 Encounter Details Date Type Department Care Team (Late st Contact Info) Description 11/14/2022 Orders Only [facility] [address] [place], [place] [phone] Samantha Gonzales MD [address] [place] [address] Thyroid nodule (Primary Dx) Social [...] Description 12/30/2024 10:00 AM EDT Office Visit [facility] [address] [place] [address] Issac, [place], OD [address] [place] [address] 01/12/2025 11:30 AM EDT Office Visit [facility] [address] [place] [address] Samantha Gonzales MD [address] [place] [address] Scheduled Orders Name Type Priority Associated Diagnoses Orde r Schedule US Guided Thyroid Biopsy Imaging Routine Thyroid nodule Expected: 11/14/2022 (Approximate), Expires: 11/15/2023 documented as of this encounter Visit Diagnoses Diagnosis Thyroid nodule- Primary Nontoxic uninodular goiter documented in this encounter Care Teams Cloth Framer Relationship Specialty Start Date End Date Samantha Gonzales MD [address] [place], [place] [phone] PCP - General Family Medicine 07/09/13 [facility] 05/17/24 documented as of this encounter
--- OUTSIDE RECORDS SUMMARY | 2024-12-10 13:19 | XMS_ITS | Clinical Summary ---
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 -Last seen by [facility] Wound care in October 2021 -usually discharged [...] Plan: -multifactorial - nutritional, CKD -following with [facility] molding machine operator helper Aneurysm of ascending aorta 05/29/2016 Overview (11/07/2022): Last Assessment & Plan: -Most recent echo on 04/12/21, EF 60-65%, dilated ascending aorta 41mm -Echo on 04/05/20, EF 55-60%, dilated ascending aorta 42 mm, -Echo on 04/01/19 EF 60-65%, Aortic root dimension 37~43mm -Seen by his infection prevention specialist, Dr. Claudio on n 07/11/22 -Pt advised [...] -Consider referring to sleep medicine clinic Immunizations Immunization Administration Dates Next Due Influenza Split 06/04/2013,07/21/2012 [...] Colorectal Cancer Screening: Sigmoidoscopy 2010 Pneumococcal Vaccine: 50+ Years (3 of 3 - PCV) 07/25/2019 07/25/2018, 07/21/2014 Influenza Vaccine (Season Ended) 2025 05/01/2022, 07/20/2021, 06/03/2019, Additional history exists Pneumococcal Vaccine: Peds (0 to 5 Years) and At-Risk Patients (6 to 49 Years) Discontinued 07/25/2018, 07/21/2014 Hepatitis B Vaccine Aged Out No longe r eligible based on patient's age to complete this topic Insurance Medicaid [place] Medicaid [place] Care Teams Welfare Specialist Relationship Specialty Start Date End Date Samantha Gonzales MD PCP - General 08/29/20
--- NOTE | 2024-12-10 13:26 | PC.NURSE ---
notified pt refusing CXR as there is nothing wrong with him- CT scan resulted.
[2024-12-10 13:43] VITALS: BP 147/86; PULSE 76; RESP 20; TEMP -17.7; TEMP 0; O2SAT 100
[2024-12-10 13:46] VITALS: BP 147/86; PULSE 76; RESP 20; TEMP -17.7; TEMP 0; O2SAT 100
== END 2024-12-10 13:50 | disposition home or self-care (01) ==
PROVIDERS: Emergency Provider Student in an Organized Health Care Education/Training Program; PCP Family Medicine
DX: S02.2XXA Fracture of nasal bones, initial encounter for closed fracture (principal); W18.39XA Other fall on same level, initial encounter; I12.9 Hypertensive chronic kidney disease with stage 1 through stage 4 chronic kidney disease, or unspecified chronic kidney disease; N18.31 Chronic kidney disease, stage 3a; E78.5 Hyperlipidemia, unspecified; Z86.718 Personal history of other venous thrombosis and embolism; Y93.K1 Activity, walking an animal; Y92.480 Sidewalk as the place of occurrence of the external cause; Y99.9 Unspecified external cause status
CPT/HCPCS: 70450; 70486; 72125; 99284

== ENCOUNTER → 2024-12-10 11:07 | Outpatient (BNV) | payer MEDICAID, SELFPAY | PROVIDERS: Emergency Provider Student in an Organized Health Care Education/Training Program; PCP Family Medicine; Visit Provider Radiology Diagnostic Radiology | DX: M47.812 Spondylosis without myelopathy or radiculopathy, cervical region (principal); G31.1 Senile degeneration of brain, not elsewhere classified; S09.90XA Unspecified injury of head, initial encounter | CPT/HCPCS: 70450; 70486; 72125 ==

== ENCOUNTER 2025-01-12 16:01 | Outpatient (REF) | payer MEDICAID, SELFPAY | END 2025-01-12 16:02 | disposition home or self-care (01) | LOC: HO.HHCLNP 16:01 | PROVIDERS: Visit Provider Family Medicine | DX: R35.0 Frequency of micturition (principal) | CPT/HCPCS: 87086; 87088; 87186 ==

== ENCOUNTER 2025-01-20 09:58 | Outpatient (AMB) | payer MEDICAID, SELFPAY ==
--- NOTE | 2025-01-20 09:59 | HO.NEPHOV ---
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 He had a left renal mass (Dr. Sow) & underwent partial left nephrectomy. He has history of rhabdomyolysis and had POLLY 5 years ago. He was on dialysis at that time and had come off dialysis on 12/20/2017. He does not have any hematuria, night sweats, weight loss, fever. His blood pressure has been at goal. He is off diuretics. He avoids nonsteroidal anti-inflammatories. His renal functions had been close to baseline. [facility] Medical History Abdominal wall abscess at site of surgical wound CKD stage 3a, GFR 45-59 ml/min Colitis Renal mass Renal cell carcinoma Alcohol use disorder Hyperlipidemia Ascending aortic aneurysm Alcoholic steatohepatitis Seborrheic dermatitis DEBORAH (obstructive sleep apnea) History of rhabdomyolysis Hx of lower gastrointestinal bleeding Hx of sepsis History of DVT of lower extremity Chronic ulcer of leg Chronic venous stasis HTN (hypertension) Anemia Anemia Surgical History H/O partial nephrectomy Hx of colonoscopy Family History Mother Dementia Maternal Grandmother Dementia Social History Household Members: Family Housing: House Housing Other:: 4 stairs to get into house. Pt lives in basement Do you presently have visiting nurse or other home services: No Alcohol intake: current Alcohol intake frequency: a few times a week Alcohol type: hard liquor Comment: pt refused socks Patient Tobacco Use Status: Never used Tobacco Advance Directives Date on File: 04/13/22 service: No Current occupational status: disabled Review of Systems Const All systems reviewed & are unremarkable except as noted in HPI and below Physical Exam Vital Signs: Last Vital Signs Pulse 84 01/20/25 10:02 BP 140/80 H 01/20/25 10:02 Pulse Ox 95 01/20/25 10:02 Oxygen Delivery Method Room Air 01/20/25 10:02 BMI result Body Mass Index 34.5 Const General: comfortable and no acute distress Orientation/consciousness: patient oriented x3 HEENT Head: Yes normocephalic Mouth: Normal oral and palatal mucosa present Eyes EOM: EOMs intact bilaterally Neck Neck: Yes supple Resp Auscultation: clear to auscultation bilaterally Cardio Jugular venous distension: no JVD Rate: regular rate GI Palpation (GI): Soft to palpation Auscultation: normal bowel sounds General: Yes no CVA tenderness Back/Spine/Pelvis Back: no CVA tenderness Skin General skin exam: no rashes or lesions noted Neuro General: patient oriented x3 and moves all extremities Results Reviewed Nephrology Results: Hgb 10.1 g/dl (14.0-18.0) L 11/12/24 WBC 11.9 X10*3/uL (4.8-10.8) H 11/12/24 Plt Count 231 X10*3/uL (160-400) 11/12/24 Sodium 135 mmol/L (135-145) 11/12/24 Potassium 4.3 mmol/L (3.3-5.1) 11/12/24 Chloride 105 mmol/L (96-108) 11/12/24 Carbon Dioxide 17 mmol/L (22-29) L 11/12/24 BUN 46 mg/dL (9-16) H 11/12/24 Creatinine 1.56 mg/dL (0.5-1.4) H 11/12/24 Calcium 9.2 mg/dL (8.4-10.2) 11/12/24 Urine Protein Negative mg/dL (Neg-Trace) 11/12/24 Assessment & Plan Assessment & Plan (1) CKD stage 3a, GFR 45-59 ml/min: Code(s): N18.31 - Chronic kidney disease, stage 3a Category: Medical (2) HTN (hypertension): Code(s): I10 - Essential (primary) hypertension Category: Medical Qualifiers: Hypertension type: primary hypertension Qualified Code(s): I10 - Essential (primary) hypertension Plan Geoffrey has history of POLLY needing dialysis 6 years ago . His renal functions became worse since left partial left nephrectomy but has settled to baseline after holding losartan, spironolactone and torsemide. He is not sure whether he is back on ARB. He has hypervolemia. I restarted his torsemide 20 mg every other day. He should avoid nonsteroidal anti-inflammatories. He should maintain good hydration. I plan to add SGLT2i at next visit . Blood work ordered for follow-up. I answered all his questions and concerns Orders: Orders Creatinine Today I10 - Essential (primary) hypertension, N18.31 - Chronic kidney disease, stage 3a Electrolytes 3 Months I10 - Essential (primary) hypertension, N18.31 - Chronic kidney disease, stage 3a Blood Urea Nitrogen 3 Months I10 - Essential (primary) hypertension, N18.31 - Chronic kidney disease, stage 3a Creatinine 3 Months I10 - Essential (primary) hypertension, N18.31 - Chronic kidney disease, stage 3a Electrolytes Today I10 - Essential (primary) hypertension, N18.31 - Chronic kidney disease, stage 3a Calcium Today I10 - Essential (primary) hypertension, N18.31 - Chronic kidney disease, stage 3a Blood Urea Nitrogen Today I10 - Essential (primary) hypertension, N18.31 - Chronic kidney disease, stage 3a Coding Level of Care Code Est Pt Level 4 (62837) Diagnoses CKD stage 3a, GFR 45-59 ml/min N18.31 Primary hypertension I10 Hypertension type: primary hypertension
[2025-01-20 10:02] VITALS: BP 140/80; PULSE 84; O2SAT 95; BMI 34.5
--- OUTSIDE RECORDS SUMMARY | 2025-01-20 10:32 | XMS_ITS | Clinical Summary ---
Author Organization [facility] Address [address] [place] [address] Phone Care Team Providers Care Propulsion Engineer Name Role Phone Samantha Gonzales MD Primary Care Provider [phone] Allergies Active Allergy Reactions Criticality Noted Date [...] mg x 2 during 1st hospitalization in [facility] in Sep 2022 -Continue follow-up with acid recovery operator Other dietary vitamin B12 deficiency anemia 09/20 [...] GSV ablation in Aug 2018 -following with [facility] [place] [place] wound care clinic, periodically when he has open wounds. -Last seen by [facility] [place] [place] Wound care in October 2021 -usually discharged [...] Plan: -multifactorial - nutritional, CKD -following with [facility] [place] [place] acid recovery operator Aneurysm of ascending aorta 05/29/2016 Overview (11/07/2022): Last Assessment & Plan: -Most recent echo on 04/12/21, EF 60-65%, dilated ascending aorta 41mm -Echo on 04/05/20, EF 55-60%, dilated ascending aorta 42 mm, -Echo on 04/01/19 EF 60-65%, Aortic root dimension 37~43mm -Seen by his digital art director, Dr. Claudio on n 07/11/22 -Pt [...] complete this topic Insurance Medicaid [place] Medicaid [place] Care Teams Propulsion Engineer Relationship Specialty Start Date End Date Samantha Gonzales MD PCP - General 08/29/20
== END 2025-01-20 10:28 | disposition home or self-care (01) ==
LOC: HO.HKA 09:58
PROVIDERS: PCP Family Medicine; Visit Provider Internal Medicine Nephrology
DX: N18.31 Chronic kidney disease, stage 3a (principal); I10 Essential (primary) hypertension
CPT/HCPCS: 99214

== ENCOUNTER → 2025-01-20 09:58 | Outpatient (BNVA) | payer MEDICAID, SELFPAY | PROVIDERS: PCP Family Medicine; Visit Provider Internal Medicine Nephrology | DX: I12.9 Hypertensive chronic kidney disease with stage 1 through stage 4 chronic kidney disease, or unspecified chronic kidney disease (principal); N18.31 Chronic kidney disease, stage 3a | CPT/HCPCS: 36415; 80051; 82310; 82565; 84520; 99212 ==

== ENCOUNTER 2025-01-20 10:39 | Outpatient (REF) | payer MEDICAID, SELFPAY ==
[2025-01-20 12:41] LABS: Anion Gap 16 (12-20); Blood Urea Nitrogen 17 mg/dL (9-16); Carbon Dioxide 23 mmol/L (22-29); Chloride 113 mmol/L (96-108); Estimated Glomerular Filt Rate > 60; Potassium 4.3 mmol/L (3.3-5.1); Sodium 148 mmol/L (135-145)
== END 2025-01-20 10:40 | disposition home or self-care (01) ==
LOC: HO.10HDL 10:39
PROVIDERS: Visit Provider Internal Medicine Nephrology
DX: Z13.89 Encounter for screening for other disorder (principal)
CPT/HCPCS: 36415; 80051; 82310; 82565; 84520

== ENCOUNTER 2025-01-22 14:05 | Inpatient (IN) | payer MEDICAID, SELFPAY ==
--- NOTE | ~2025-01-22 | XR_ITS ---
EXAMINATION: XR CHEST CLINICAL INFORMATION: edema COMPARISON: Femoral 2024 TECHNIQUE: Frontal view of the chest was obtained. FINDINGS: Cardiac size is borderline enlarged Lungs are clear. There is pulmonary vascular crowding. Bony structures are unremarkable. XR/XR chest 1V IMPRESSION: Cardiac size is upper limits of normal Electronically signed by: Esteban Carlos MD 01/22/2025 04:41 PM EDT RP
[2025-01-22 14:25] VITALS: BP 168/85; BP 170/112; PULSE 108; PULSE 96; RESP 18; TEMP 37.1; O2SAT 98; O2SAT 99; BMI 33.4
--- NOTE | 2025-01-22 15:06 | ED_ITS ---
HPI - Skin/Abscess/Foreign Bdy General Chief complaint: Wound/Laceration Stated complaint: BILAT LEG WOUNDS,INCREASED PAIN,'LARVAE' PRESENT Time Seen by Provider: 01/22/25 14:16 Source: patient, EMS and old records reviewed Mode of arrival: EMS Limitations: no limitations History of Present Illness ED Provider: JOSE CARLOS HPI narrative: 64 yo male with PMH of alcohol use disorder, chronic leg edema and chronic wounds managed by VNA, CKD, HTN, anemia, who notes he has VNA coming in they saw his left leg was weeping and dressed it. He noted a couple of hours later he felt movement down there and itching. He felt he had maggots again. He states he couldn't sleep as the critters kept him up. He notes his nurse yesterday did not see any maggots. He states he has no fevers, chills, n/v. He is not currently on antibiotics. MD complaint: lesion and other Onset (ago): day(s) (1) Tetanus up to date: yes Location: LLE Severity: moderate Pain Consistency: intermittent Relieving factors: none Exacerbating factors: movement Context: other Associated symptoms: denies other symptoms Treatments prior to arrival: bandages Related Data Home Medications ?Medication ?Instructions ?Recorded ?Confirmed metoprolol succinate 50 mg 50 mg PO DAILY 10/30/22 10/16/24 tablet,extended release 24 hr rosuvastatin 5 mg tablet 5 mg PO BEDTIME 08/26/23 10/16/24 cyanocobalamin (vitamin B-12) 1,000 mcg IM Q30D 02/05/24 10/16/24 1,000 mcg/mL injection solution allopurinol 300 mg tablet 300 mg PO DAILY 07/29/24 10/16/24 ascorbate calcium (vitamin C) 500 500 mg PO BID 07/29/24 10/16/24 mg tablet calcium 250 mg (as 1 tab PO TID 10/16/24 10/16/24 carbonate)-vitamin D3 3.125 mcg (125 unit) tablet (Oyster Shell Calcium-Vitamin D3) cholecalciferol (vitamin D3) 50 50 mcg PO DAILY 10/16/24 10/16/24 mcg (2,000 unit) tablet (Vitamin D3) ferrous sulfate 325 mg (65 mg 325 mg PO DAILY 10/16/24 10/16/24 iron) tablet,delayed release lidocaine 5 % topical cream 1 appl topical BID 10/16/24 10/16/24 mineral oil-hydrophil petrolat 1 appl topical BID 10/16/24 10/16/24 topical ointment (petrolatum topical ointment) iumkoluheurv-hlmowtki-lzng 1 tab PO DAILY 10/16/24 10/16/24 fumarate 7.5 mg-folic acid 400 mcg tablet naltrexone 50 mg tablet 50 mg PO DAILY 10/16/24 10/16/24 omeprazole 20 mg capsule,delayed 20 mg PO DAILY 10/16/24 10/16/24 release pyridoxine (vitamin B6) 50 mg 50 mg PO DAILY 10/16/24 10/16/24 tablet (Vitamin B-6) thiamine HCl (vitamin B1) 100 mg 100 mg PO DAILY 10/16/24 10/16/24 tablet (Vitamin B-1) spironolactone 25 mg tablet 25 mg PO DAILY 01/20/25 Previous Rx's ?Medication ?Instructions ?Recorded magnesium oxide 400 mg (241.3 mg 400 mg PO DAILY #10 tabs 04/25/23 magnesium) tablet folic acid 1 mg tablet 1 mg PO DAILY #30 tabs 10/01/23 ammonium lactate 12 % lotion 1 appl topical BID #400 grams 10/22/24 Allergies Allergy/AdvReac Type Severity Reaction Status Date / Time azithromycin [AZITHROMYCIN] Allergy Severe FACIAL Verified 01/22/25 14:28 SWELLING hydrochlorothiazide [HCTZ] Allergy Severe Facial Verified 01/22/25 14:28 Swelling Review of Systems 2 Review of Systems: Constitutional : No Fever, No Chills ENT/Mouth : No sore throat, No Rhinorrhea Eyes: No Eye Pain, No Swelling, No Redness Cardiovascular : No Chest Pain, No SOB Respiratory : No Cough, No Sputum Gastrointestinal : No Nausea, No Vomiting, No Diarrhea, No abdominal Pain Genitourinary : No Dysuria, No Hematuria Musculoskeletal : No joint pain, No Myalgias, No Joint Swelling Skin : pos Skin Lesions, positive skin rash Neuro : No Weakness, No Numbness, No Headache Psych : No Anxiety, No Depression Heme/Lymph: No Bruising, No Bleeding,No Lymphadenopathy Endocrine : No Polyuria, No Polydipsia All other systems reviewed and are negative PMFSH Past Medical History Attestation statement: The following information was validated with the patient. Source: old records reviewed Medical History Abdominal wall abscess at site of surgical wound CKD stage 3a, GFR 45-59 ml/min Colitis Renal mass Renal cell carcinoma Alcohol use disorder Hyperlipidemia Ascending aortic aneurysm Alcoholic steatohepatitis Seborrheic dermatitis DEBORAH (obstructive sleep apnea) History of rhabdomyolysis Hx of lower gastrointestinal bleeding Hx of sepsis History of DVT of lower extremity Chronic ulcer of leg Chronic venous stasis HTN (hypertension) Anemia Anemia Surgical History H/O partial nephrectomy Hx of colonoscopy Family History Family History Mother Dementia Maternal Grandmother Dementia Social History Social History Household Members: Family Housing: House Housing Other:: 4 stairs to get into house. Pt lives in basement Do you presently have visiting nurse or other home services: No Alcohol intake: current Alcohol intake frequency: a few times a week Alcohol type: hard liquor Comment: pt refused socks Patient Tobacco Use Status: Never used Tobacco Advance Directives: Yes Advance Directives on File: Yes Advance Directives Date on File: 04/13/22 Do you have a plan to hurt others: No Plan service: No Current occupational status: disabled Physical Exam 2 Vital Signs: Vital Signs: Last Vital Signs Temp 100.8 F H 01/22/25 15:53 Pulse 85 01/22/25 15:53 Resp 18 01/22/25 15:53 BP 161/86 H 01/22/25 15:53 Pulse Ox 99 01/22/25 15:53 O2 Del Method Room Air 01/22/25 15:53 BMI result Body Mass Index 33.4 Appearance: Alert. Oriented X3. No acute distress. Eyes: Pupils equal, round and reactive to light. ENT: Pharynx normal. Neck: Normal inspection. Neck supple. CVS: Normal heart rate and rhythm. Pulses normal. Respiratory: No respiratory distress. Breath sounds normal. Abdomen: Soft and nontender. Skin: Skin warm and dry. Normal skin color. Normal skin turgor. Extremities: both legs are edematous with 2+ pitting, there is scaling non red skin on R leg and no maggots seen on L leg there is redness, warmth and flies as well as numerous maggots on LLE please see picture below Neuro: Oriented X 3. No motor deficit. No sensory deficit. CN2-12 intact Course Course Course Narrative: cleaned maggots off washed leg with peroxide to remove maggots then irrigated extensively with saline, no further maggots noted at that time cut off saturated socks and bandages. Reevaluation(s) Reevaluation #1: has fever sepsis alert called 356pm RN aware Medications Administered Discontinued Medications Generic Name Dose Route Start Last Admin Trade Name Alissa PRN Reason Stop Dose Admin Acetaminophen 650 mg 01/22/25 16:05 01/22/25 16:54 Acetaminophen 325 Mg Tablet PO 01/22/25 16:06 650 mg ONCE ONE Administration Piperacillin Sod/Tazobactam 50 mls @ 100 mls/hr 01/22/25 14:21 01/22/25 16:25 Sod 3.375 gm/ Sodium Chloride IV 01/22/25 14:50 Infused ONCE ONE Infusion Thiamine HCl 200 mg/ Sodium 102 mls @ 204 mls/hr 01/22/25 14:21 01/22/25 16:54 Chloride IV 01/22/25 14:50 Infused ONCE ONE Infusion Medical Decision Making Medical Decision Making [facility] Narrative: 64 yo male with PMH of alcohol use disorder, chronic leg edema and chronic wounds managed by VNA, CKD, HTN, anemia, at this time his L left leg has signs of cellulitis - there was a delay in treatment as his leg cleaning took a significant amount of time and we had to clear maggots from the bed and his body. I am going to order basic labs, cultures, lactic acid and zosyn. He has no CP/SOB to suggest ACS, VTE or CHF. Planned admit for IV abx Differential Diagnosis Differential Diagnoses: The differential diagnosis associated with the presentation includes cellulitis, issues with caring for himself, maggot infested wounds Admission/Observation Consideration of admission/observation: Escalation of care including admission/observation considered admit for IV abx Consult Healthcare Provider Management of the patient was discussed with: Hospitalist (will admit) Lab Data [facility] Lab Attestation statement: I reviewed the patient's lab results. 01/22/25 15:23 01/22/25 15:23 Labs: Lab Results 01/22/25 Range/Units 15:23 WBC 8.1 (4.8-10.8) X10*3/uL RBC 3.60 L (4.60-5.80) X10*6/uL Hgb 10.3 L (14.0-18.0) g/dl Hct 31.2 L (42.0-52.0) % MCV 86.7 (80.0-98.0) fL MCH 28.6 (27.0-33.0) pg MCHC 33.0 (31.0-36.0) g/dl RDW 16.4 H (11.0-16.0) % Plt Count 94 L D (160-400) X10*3/uL MPV 8.6 L (9.4-12.4) fL Immature Gran % (Auto) 0.2 (0.0-0.4) % Neut % (Auto) 70.7 (45-73) % Lymph % (Auto) 18.6 L (20-40) % Hopkins % (Auto) 9.3 (2-11) % Eos % (Auto) 0.5 (0-4) % Baso % (Auto) 0.7 (0-2) % Lymph # (Auto) 1.5 (1.2-4.9) X10*3/uL Hopkins # (Auto) 0.8 (0.1-1.2) X10*3/uL Eos # (Auto) 0.0 (0.0-0.4) X10*3/uL Baso # (Auto) 0.1 (0.0-0.2) X10*3/uL Abs Immat Gran (auto) 0.02 (0.00-0.03) X10*3/uL Absolute Neuts (auto) 5.7 (2.0-8.3) x10*3/uL Absolute Nucleated RBC 0.000 (0.0-0.012) X10*3/uL Nucleated RBC % (auto) 0.0 (0.0-0.2) /100WBC Sodium 142 (135-145) mmol/L Potassium 3.9 (3.3-5.1) mmol/L Chloride 103 (96-108) mmol/L Carbon Dioxide 27 (22-29) mmol/L Anion Gap 16 (12-20) BUN 13 (9-16) mg/dL Creatinine 0.99 (0.5-1.4) mg/dL Estim Creat Clear Calc 84.5 Estimated GFR > 60 Random Glucose 100 (60-115) mg/dL Lactic Acid 1.1 (0.5-2.0) mmol/L Calcium 9.1 (8.4-10.2) mg/dL Magnesium 1.1 L* (1.6-2.6) mg/dL Total Bilirubin 2.6 H (0.0-1.0) mg/dL Direct Bilirubin 1.2 H (0.0-0.5) mg/dL AST 25 (5-37) U/L ALT 6 (0-40) U/L B-Natriuretic Peptide 1008 H (<100) pg/mL Total Protein 7.7 (6.5-8.0) g/dL Albumin 4.0 (3.5-5.0) g/dL Lipase 9 (8-78) U/L Ethyl Alcohol < 10 mg/dL Independent Interpretation I performed an independent interpretation of an: EKG and Plain X-Ray (interstitial prominence) Interpretation: Rate: 92 Rhythm: NSR [place]: left Normal P waves. Normal PORTIA. Normal QRS complex. ST T wave : no ZAK, artifact noted but there are T wave inversions in anterior lateral leads qTC: 472 prior studies: hx of same t wave inversions and pattern back in Sep 2024 The study has been interpreted contemporaneously by me. . Radiology Impression Discussion of test interpretation with radiology: I have reviewed the radiologist's reading. Independent Historian Clinical information obtained from an independent historian. History obtained from or confirmed by: EMS External Record Review External record reviewed: Inpatient record and Outpatient record Social Determinants Patient?s care significantly limited by Social Determinants of Health including: Other Social Determinant of Health Critical Care Time Critical Care Time Critical Care Time: Yes Total Critical Care Time: 35 Attestation: Time is exclusive of separately billable procedures. Time includes: direct patient care, patient reassessment, coordination of patient care, interpretation of data (laboratory data, pulse oximetry, chest xrays), review of patient's medical records, medical consultation and documentation of patient care. IV magnesium to prevent arrythmia. Procedures excluded from critical care time:electrocardiography. I attest to this time spent taking care of the patient Discharge Plan Discharge Clinical Impression: Infestation, maggots, Hypomagnesemia Cellulitis Qualifiers: Site of cellulitis: extremity Site of cellulitis of extremity: lower extremity Laterality: left Qualified Code(s): L03.116 - Cellulitis of left lower limb Patient Disposition: Admitted As Inpatient Print Language: Bahamian
[2025-01-22 15:28] LABS: MANUAL DIFF FLAG NO
[2025-01-22 15:29] LABS: Basophils Absolute Auto 0.1 X10*3/uL (0.0-0.2); Basophils Percent Auto 0.7 % (0-2); Eosinophils Percent Auto 0.5 % (0-4); Hematocrit 31.2 % (42.0-52.0); Hemoglobin 10.3 g/dl (14.0-18.0); Imm Gran Abs Auto 0.02 X10*3/uL (0.00-0.03); Imm Gran Pct Auto 0.2 % (0.0-0.4); Lymphocytes Absolute Auto 1.5 X10*3/uL (1.2-4.9); Lymphocytes Percent Auto 18.6 % (20-40); Mean Corpuscular Hemoglobin 28.6 pg (27.0-33.0); Mean Corpuscular Volume 86.7 fL (80.0-98.0); Mean Platelet Volume 8.6 fL (9.4-12.4); Monocytes Absolute Auto 0.8 X10*3/uL (0.1-1.2); Monocytes Percent Auto 9.3 % (2-11); Neutrophils Absolute Auto 5.7 x10*3/uL (2.0-8.3); Neutrophils Percent Auto 70.7 % (45-73); Platelet Count 94 X10*3/uL (160-400); Red Cell Distribution Width 16.4 % (11.0-16.0); White Blood Count 8.1 X10*3/uL (4.8-10.8)
[2025-01-22 15:44] LABS: Lactic Acid 1.1 mmol/L (0.5-2.0)
[2025-01-22 15:49] LABS: B Type Natriuretic Peptide 1008 pg/mL (<100)
[2025-01-22 15:53] VITALS: BP 161/86; PULSE 85; RESP 18; TEMP 38.2; O2SAT 99
--- NOTE | 2025-01-22 15:56 | MHC.EDTECH ---
This pct assumed care of Patient at 1500 ,vitals taken ,2nd set of blood culture drawn and sent to lab .
--- NOTE | 2025-01-22 15:57 | PC.NURSE ---
Dr. Huber called Sepsis alert on Pt at this time [id number].
[2025-01-22 15:58] LABS: Alanine Aminotransferase 6 U/L (0-40); Anion Gap 16 (12-20); Aspartate Amino Transferase 25 U/L (5-37); Bilirubin Direct 1.2 mg/dL (0.0-0.5); Bilirubin Total 2.6 mg/dL (0.0-1.0); Blood Urea Nitrogen 13 mg/dL (9-16); Calcium 9.1 mg/dL (8.4-10.2); Carbon Dioxide 27 mmol/L (22-29); Chloride 103 mmol/L (96-108); Creatinine Clr Calc Pharmacy 84.5; Estimated Glomerular Filt Rate > 60; Ethanol < 10 mg/dL; Glucose Random 100 mg/dL (60-115); Lipase 9 U/L (8-78); Magnesium 1.1 mg/dL (1.6-2.6); Potassium 3.9 mmol/L (3.3-5.1); Sodium 142 mmol/L (135-145); Total Protein 7.7 g/dL (6.5-8.0)
[2025-01-22] MEDS: Piperacillin Sodium/Tazobactam 3.375 GM in 0.9 % Sodium Chloride 50 ML IV ×2 (16:03→22:37)
--- NOTE | 2025-01-22 16:20 | PC.NURSE ---
Pt comes to ED today (arrival 1425) with c/o bilat pain to ankles d/t chronic wounds. Pt reports he receives VNA services every 2-3 days, last being yesterday. He states that he was seen at the [facility] clinic today for his wounds and they discovered maggots in his DSG and sent him here. Pt is A&Ox3 with VSS. DSG to bilat ankles is saturated in a yellow brown drainage with a pungent odor. Pt is a difficult venipuncture. This RN attempts IV access x2 without success. Pt reports he has been having diarrhea recently d/t his colitis and is dehydrated. tape weaver able to obtain IV access after 2 tries and first set of blood cultures, labs, and lactic drawn at 1523. Sepsis alert called at 1557 IV abx hung at 1603.
[2025-01-22] MEDS: Thiamine HCL 200 MG in 0.9 % Sodium Chloride 100 ML 204 MG IV (16:29)
--- NOTE | 2025-01-22 16:47 | ECG_ITS ---
Test Reason : FEVER Blood Pressure : */* mmHG Vent. Rate : 92 BPM Atrial Rate : 92 BPM P-R Int : 182 ms QRS Dur : 112 ms QT Int : 382 ms P-R-T Axes : 17 -46 -30 degrees QTcB Int : 472 ms Artifact in tracing Normal sinus rhythm Left anterior fascicular block Minimal voltage criteria for LVH, may be normal variant ( Leonel product ) T wave abnormality, consider anterolateral ischemia Abnormal ECG When compared with ECG of 12-Nov-2024 18:50, No significant changes seen Referred By: Annie Huber Electronically Signed By: CARRILLO MAHARAJ
[2025-01-22] MEDS: Acetaminophen 325 MG TABLET 650 MG PO (16:54)
[2025-01-22 16:56] VITALS: BP 161/86
[2025-01-22] MEDS: Furosemide 20 MG/2 ML VIAL IVPUSH (16:56)
[2025-01-22] MEDS: Magnesium Sulfate/H2O 2 GM/50 ML PIGGYBACK IV (16:57)
[2025-01-22 17:22] VITALS: BP 147/90; PULSE 97; RESP 16; TEMP 37.3; O2SAT 97
[2025-01-22 17:32] LABS: Appearance Urine Clear; Color Urine Yellow; Glucose Urine UA Negative (Negative); Leukocyte Esterase Urine Small (1+) (Negative); Nitrite Urine Negative (Negative); PH 6.5 (5.0-9.0); Specific Gravity - Urine 1.015 (1.005-1.025); UMIC TRIGGER UACC YES; Urine Blood Negative (Negative); Urine Ketones Trace mg/dL (Negative); Urine Protein 100 (2+) mg/dL (Neg-Trace)
--- NOTE | 2025-01-22 17:32 | MHC.EDTECH ---
ekg taken and was read by Provider ,urine sample collected and sent to lab ,Patient belongings list done .
[2025-01-22 17:37] LABS: Bacteria Urine Trace (None Seen); Hyaline Casts Urine 0-2 /LPF (0-2); RBC Urine 0-2 /HPF (0-2); Squamous Epithelial Cell Urine 0-2 /HPF (0-2); UACC Culture Trigger YES; WBC Urine 21-50 /HPF (0-5)
--- NOTE | 2025-01-22 18:00 | PC.NURSE ---
Sepsis worksheet submitted to community health coordinator.
--- NOTE | 2025-01-22 18:10 | PM.IMHP ---
History of Present Illness Date of Service: 01/22/25 Attending physician on admission: [facility] Chief Complaint: Maggots in left ankle wound Pt is a 64-year-old male with a PMH significant for?HTN, HLD, anemia, chronic venous stasis dermatitis, alcohol use disorder, hx of DVT no longer on anticoagulation, hx of leg edema s/p venous ablation in 2018, hx of left renal cancer s/p partial nephrectomy in 2023, CKD 3, and gout who presents to the ED from walk in clinic due to maggots in left ankle wound. Pt reports [facility]NA services yesterday put a bandage on his left lower leg as it was blistering and weeping. Later that evening pt experienced significant leg pain and felt movement in his bandages from what he assumed were ?little critters?. Was unable to sleep due to pain and discomfort. Presented to the walk-in clinic today where he was found to have maggots in left ankle wounds when bandages were removed. pt was sent to the ED for further evaluation. Pt denies fever, chills. No nausea, vomiting, abdominal pain. No chest pain/pressure, palpitations. Denies shortness or breath or difficulty breathing. In the ED pt with low-grade fever of 100.8, tachycardia up to 97, and hypertension up to 168/85. Labs were significant for magnesium 1.1, T bili 2.6, and BNP 1108 (previous 243 on 05/13/2024). No leukocytosis. Stable H&H of 10.3/31.2. No electrolyte abnormalities. Renal function WNL. Lactic acid WNL at 1.1. CXR showed underlying cardiac enlargement, and pulmonary vascular crowding. EKG demonstrated normal sinus rhythm with left anterior fascicular block, similar to prior. Pt was treated in the ED with Mag sulfate, acetaminophen, thiamine, Lasix 20 mg IV, and Zosyn. Pt is admitted to the hospital for treatment and further evaluation of left leg cellulitis and electrolyte abnormalities. Review of Systems Review of Systems: Negative except for that which is stated in the HPI. [facility] Medical History Abdominal wall abscess at site of surgical wound CKD stage 3a, GFR 45-59 ml/min Colitis Renal mass Renal cell carcinoma Alcohol use disorder Hyperlipidemia Ascending aortic aneurysm Alcoholic steatohepatitis Seborrheic dermatitis DEBORAH (obstructive sleep apnea) History of rhabdomyolysis Hx of lower gastrointestinal bleeding Hx of sepsis History of DVT of lower extremity Chronic ulcer of leg Chronic venous stasis HTN (hypertension) Anemia Anemia Family History Mother Dementia Maternal Grandmother Dementia Surgical History H/O partial nephrectomy Hx of colonoscopy Social History Household Members: Family Household Members Other:: mother who has dementia Housing: House Housing Other:: 4 stairs to get into house. Pt lives in basement Do you presently have visiting nurse or other home services: Yes Alcohol intake: current Alcohol intake frequency: a few times a week Alcohol type: wine Comment: pt refused socks Patient Tobacco Use Status: Never used Tobacco Smoked in Last 30 Days: No Use of substances other than those prescribed or required for medical reasons: No Currently Displaying Signs/Symptoms of Drug Intoxication Withdrawal: No Have you been hit, kicked, punched, or otherwise hurt by someone within the past year? If so, by whom?: No Do you feel safe in your current relationship?: Yes Advance Directives: Yes Advance Directives on File: Yes Advance Directives Date on File: 04/13/22 Do you have a plan to hurt others: No Plan Recently lost weight without trying: No How much weight loss: Not applicable Eating poorly because of decreased appetite: No Nutrition screen score: 0 Nutrition Risks: No Nutritional Risk service: No Current occupational status: disabled Meds Allergies Allergy/AdvReac Type Severity Reaction Status Date / Time azithromycin [AZITHROMYCIN] Allergy Severe FACIAL Verified 01/22/25 14:28 SWELLING hydrochlorothiazide [HCTZ] Allergy Severe Facial Verified 01/22/25 14:28 Swelling Home Medications ?Medication ?Instructions ?Recorded ?Confirmed ?Last Taken ?Type rosuvastatin 5 mg tablet 5 mg PO BEDTIME 08/26/23 01/22/25 2 Weeks Ago History ~01/08/25 allopurinol 300 mg tablet 300 mg PO DAILY 07/29/24 01/22/25 3 Days Ago History ~01/19/25 ascorbate calcium (vitamin C) 500 500 mg PO BID 07/29/24 01/22/25 3 Days Ago History mg tablet ~01/19/25 calcium 250 mg (as 1 tab PO TID 10/16/24 01/22/25 3 Days Ago History carbonate)-vitamin D3 3.125 mcg ~01/19/25 (125 unit) tablet (Oyster Shell Calcium-Vitamin D3) cholecalciferol (vitamin D3) 50 50 mcg PO DAILY 10/16/24 01/22/25 3 Days Ago History mcg (2,000 unit) tablet (Vitamin ~01/19/25 D3) ferrous sulfate 325 mg (65 mg 325 mg PO DAILY 10/16/24 01/22/25 3 Days Ago History iron) tablet,delayed release ~01/19/25 [id number] 1 tab PO DAILY 10/16/24 01/22/25 3 Days Ago History fumarate 7.5 mg-folic acid 400 mcg ~01/19/25 tablet pyridoxine (vitamin B6) 50 mg 50 mg PO DAILY 10/16/24 01/22/25 3 Days Ago History tablet (Vitamin B-6) ~01/19/25 thiamine HCl (vitamin B1) 100 mg 100 mg PO DAILY 10/16/24 01/22/25 3 Days Ago History tablet (Vitamin B-1) ~01/19/25 acetaminophen 325 mg tablet 650 mg PO Q4H PRN Pain (Scale 01/22/25 01/22/25 Unknown History Score 4-6) metoprolol succinate 25 mg 25 mg PO DAILY 01/22/25 01/22/25 Unknown History tablet,extended release 24 hr Physical Exam Vital Signs and Narrative: Vital Signs: Last Vital Signs Temp 99.2 F 01/22/25 17:22 Pulse 97 01/22/25 17:22 Resp 16 01/22/25 17:22 BP 147/90 H 01/22/25 17:22 Pulse Ox 97 01/22/25 17:22 O2 Del Method Room Air 01/22/25 17:22 BMI result Body Mass Index 33.4 General: AOx3, no acute distress. Unkept Resp: CTA bilaterally CVS: S1, S2, RRR GI: +BS, NT, no distention Skin: Warm, dry Neuro: Cranial nerves II-XII grossly intact bilaterally. Motor grossly intact bilaterally Extremities: Non pitting lower leg edema. Bilateral venous stasis dermatitis changes. Malodorous. Left lower extremity with increased warmth and erythema especially of ankle and foot. Left leg with weeping blisters with clear drainage. As pictured below. Additional pictures in ED clinician's chart. Psych: Appropriate affect Results Labs 01/22/25 15:23 01/23/25 07:08 Labs: Laboratory Results - last 24 hr 01/22/25 01/22/25 15:23 17:26 MCV 86.7 MCH 28.6 MCHC 33.0 RDW 16.4 H Plt Count 94 L D MPV 8.6 L Immature Gran % (Auto) 0.2 Neut % (Auto) 70.7 Lymph % (Auto) 18.6 L [place] % (Auto) 9.3 Eos % (Auto) 0.5 Baso % (Auto) 0.7 Lymph # (Auto) 1.5 [place] # (Auto) 0.8 Eos # (Auto) 0.0 Baso # (Auto) 0.1 Abs Immat Gran (auto) 0.02 Absolute Neuts (auto) 5.7 Absolute Nucleated RBC 0.000 Nucleated RBC % (auto) 0.0 Anion Gap 16 Estim Creat Clear Calc 84.5 Estimated GFR > 60 Random Glucose 100 Lactic Acid 1.1 Calcium 9.1 Magnesium 1.1 L* Total Bilirubin 2.6 H Direct Bilirubin 1.2 H AST 25 ALT 6 B-Natriuretic Peptide 1008 H Total Protein 7.7 Albumin 4.0 Lipase 9 Urine Color Yellow Urine Appearance Clear Urine pH 6.5 Ur Specific [place] 1.015 Urine Protein 100 (2+) H Urine Glucose (UA) Negative Urine Ketones Trace Urine Blood Negative Urine Nitrite Negative Ur Leukocyte Esterase Small (1+) H Urine RBC 0-2 Urine WBC 21-50 H Ur Squamous Epith Cells 0-2 Urine Bacteria Trace Hyaline Casts 0-2 Ethyl Alcohol < 10 Imaging Radiologist's Impressions: Impressions Chest X-Ray 01/22/25 15:19 IMPRESSION: Cardiac size is upper limits of normal Electronically signed by: Esteban Carlos MD 01/22/2025 04:41 PM EDT Assessment and Plan (1) Hypomagnesemia: Status: Acute (2) Infestation, maggots: Status: Acute (3) Cellulitis: Qualifiers: Laterality: left Site of cellulitis: extremity Site of cellulitis of extremity: lower extremity Qualified Code(s): L03.116 - Cellulitis of left lower limb Status: Acute Plan Pt is a 64-year-old male with a PMH significant for?HTN, HLD, anemia, chronic venous stasis dermatitis, alcohol use disorder, hx of DVT no longer on anticoagulation, hx of leg edema s/p venous ablation in 2018, hx of left renal cancer s/p partial nephrectomy in 2023, CKD 3, and gout who presents to the ED from walk in clinic due to maggots in left ankle wound. Pt is admitted to the hospital for treatment and further evaluation of left leg cellulitis and electrolyte abnormalities. Left lower leg cellulitis with maggot infestation Worsening since last night No sepsis: Tachycardia, but no tachypnea or leukocytosis; lactic acid WNL Will treat with Zosyn, started 01/22/2025 General surgery consult for possible debridement Wound care consult Follow blood cultures Hypomagnesemia Magnesium 1.1 at time of presentation Pt with hx of alcohol use disorder, similar levels in the past Given Mag 2g IV in the ED Continue oral supplementation Follow mag Elevated BNP BNP 1000, elevated from prior of 243 Denies SOB, CP, or increased LLE CXR with borderline cardiomegaly, no clear edema or effusion Given Lasix 20mg IV in the ED Repeat BNP, consider additional Lasix if clinically appropriate Alcohol dependence Reports drinking a few glasses of wine a few days of the week Last drink on Saturday night Previous hx of withdrawal Monitor on CIWA Asthma Not in acute exacerbation Continue home inhalers Anemia Stable, at baseline Continue iron supplementation HTN Continue metoprolol HLD Continue statin Full Code Attending:?Dr. Alberts DVT Prophylaxis: Lovenox Pt will require a hospitalization of at least two nights for treatment of left leg cellulits with maggot infestetion with IV antibiotics and specialist consultation with general surgery. Quality Stroke Does the patient have a stroke diagnosis?: No VTE Prior VTE?: No VTE Risk Level:: Medical - moderate - high VTE Device Contraindication: Treatment Not Indicated VTE Drug Contraindication: N/A - Med Ordered
[2025-01-22 18:57] LABS: Alkaline Phosphatase 134 U/L (39-117)
[2025-01-22 18:58] LABS: Iron 26 mcg/dL (45-160); Percent Iron Saturation 16 % (15-50); Total Iron Binding Capacity 166 mcg/dL (228-428); Unsaturated Iron Binding 140 ug/dL
--- NOTE | 2025-01-22 19:01 | PC.NURSE ---
pt ambulated to bathroom with steady gait at this time, changed into hospital gown. offers no complaints at this time. pads placed under pt leg wounds.
--- NOTE | 2025-01-22 19:16 | PHA.MEDREC ---
Addendum entered by Erendira Brooks mikki 01/22/25 19:41: REVIEWED BY PHARMACIST Original Note: Pharmacy Consult ? Medication Reconciliation Pharmacy has completed the medication reconciliation. Spoke with pt and he had a list from his providers office we confirmed. Pt is not compliant with taking his Rosuvastatin tablet and states he took it last about 2 weeks ago. Pt states he hasn't taken any of his medications in at least 3 days.
[2025-01-22 19:18] LABS: Ferritin 397 ng/mL (20-250)
[2025-01-22 20:00] VITALS: BP 160/86; PULSE 92; RESP 18; TEMP 37.1; O2SAT 100
[2025-01-22] MEDS: Enoxaparin Sodium 40 MG/0.4 ML SYRINGE SUBCUT (22:36)
[2025-01-22] MEDS: Ferrous Sulfate 324 MG TABLET.DR PO (22:37)
[2025-01-22] MEDS: Calcium + Vitamin D 250 MG TABLET PO (22:37)
[2025-01-22] MEDS: Atorvastatin Calcium 20 MG TABLET PO (22:37)
[2025-01-22] MEDS: Ascorbic Acid 500 MG TABLET PO (22:37)
[2025-01-22] MEDS: Ketorolac Tromethamine 15 MG/ML VIAL IVPUSH (22:59)
[2025-01-23 04:00] VITALS: BP 156/75; PULSE 89; RESP 18; TEMP 36.5; O2SAT 94
[2025-01-23] MEDS: Piperacillin Sodium/Tazobactam 3.375 GM in 0.9 % Sodium Chloride 50 ML IV ×4 (05:07→21:03)
[2025-01-23 06:58] VITALS: BP 162/80; PULSE 87; RESP 18; TEMP 36.9; O2SAT 100
[2025-01-23 08:18] LABS: Anion Gap 14 (12-20); Blood Urea Nitrogen 15 mg/dL (9-16); Calcium 8.8 mg/dL (8.4-10.2); Carbon Dioxide 26 mmol/L (22-29); Chloride 104 mmol/L (96-108); Creatinine Clr Calc Pharmacy 73.4; Estimated Glomerular Filt Rate > 60; Glucose Random 82 mg/dL (60-115); Sodium 141 mmol/L (135-145)
[2025-01-23 08:21] LABS: Magnesium 1.4 mg/dL (1.6-2.6)
[2025-01-23 08:22] LABS: B Type Natriuretic Peptide 462 pg/mL (<100)
--- NOTE | 2025-01-23 08:42 | HO.PM.IMPN ---
Subjective Subjective Date of Service: 01/23/25 Interval History: f/u on infected leg ulcers with magots Review of Systems Negative except for that which is stated in the HPI. Physical Exam Vital Signs: Vital Signs: Last Vital Signs Temp 98.4 F 01/23/25 06:58 Pulse 87 01/23/25 06:58 Resp 18 01/23/25 06:58 BP 162/80 H 01/23/25 06:58 Pulse Ox 100 01/23/25 06:58 O2 Del Method Room Air 01/23/25 06:58 BMI result Body Mass Index 33.4 Appearance: Alert. Oriented X3. No acute distress. Eyes: Pupils equal, round and reactive to light. ENT: Pharynx normal. Neck: Normal inspection. Neck supple. CVS: Normal heart rate and rhythm. Pulses normal. Respiratory: No respiratory distress. Breath sounds normal. Abdomen: Soft and nontender. Skin: Skin warm and dry. Normal skin color. Normal skin turgor. Extremities: both legs are edematous with 2+ pitting, there is scaling non red skin on R leg and no maggots seen on L leg there is redness, warmth and flies as well as numerous maggots on LLE please see picture below Neuro: Oriented X 3. No motor deficit. No sensory deficit. CN2-12 intact Objective Data Active Medications Acetaminophen (Acetaminophen 325 Mg Tablet) 650 mg PO Q6H PRN PRN Reason: Pain, Mild 1-3,fever,headache Allopurinol (Allopurinol 300 Mg Tablet) 300 mg PO DAILY [facility] Ascorbic Acid (Ascorbic Acid 500 Mg Tablet) 500 mg PO BID [facility] Last Admin: 01/22/25 22:37 Dose: 500 mg Documented By: KIMI Atorvastatin Calcium (Atorvastatin Calcium 20 Mg Tablet) 20 mg PO DAILY [facility] Last Admin: 01/22/25 22:37 Dose: 20 mg Documented By: KIMI Calcium Carbonate (Calcium Carbonate 750 Mg Tab.Chew) 750 mg PO Q4H PRN PRN Reason: Heartburn Calcium Carbonate/Cholecalciferol (Calcium + Vitamin D 250 Mg Tablet) 250 mg PO TID [facility] Last Admin: 01/22/25 22:37 Dose: 250 mg Documented By: KIMI Enoxaparin Sodium (Enoxaparin Sodium 40 Mg/0.4 Ml Syringe) 40 mg SUBCUT Q24H [facility] Last Admin: 01/22/25 22:36 Dose: 40 mg Documented By: KIMI Ferrous Sulfate (Ferrous Sulfate 324 Mg Tablet.) 324 mg PO DAILY [facility] Last Admin: 01/22/25 22:37 Dose: 324 mg Documented By: KIMI Folic Acid (Folic Acid 1 Mg Tablet) 1 mg PO DAILY [facility] Piperacillin Sod/Tazobactam (Sod 3.375 gm/ Sodium Chloride) 50 mls @ 100 mls/hr IV Q6H [facility] Last Infusion: 01/23/25 05:40 Dose: Infused Documented By: KIMI Ketorolac Tromethamine (Ketorolac Tromethamine 15 Mg/Ml Vial) 15 mg IVPUSH Q6H PRN PRN Reason: Pain, Moderate(Pain Scale 4-6) Stop: 01/26/25 19:04 Last Admin: 01/22/25 22:59 Dose: 15 mg Documented By: KIMI Magnesium Hydroxide (Milk Of Magnesia 30 Ml Oral.Susp) 30 ml PO DAILY PRN PRN Reason: Constipation Magnesium Oxide (Magnesium Oxide 400 Mg Tablet) 400 mg PO DAILY [facility] Melatonin (Melatonin 3 Mg Tablet) 6 mg PO BEDTIME PRN PRN Reason: Insomnia Metoprolol Succinate (Metoprolol Succinate Er 25 Mg Tab.Er.24h) 25 mg PO DAILY [facility]; Protocol Ondansetron HCl (Ondansetron Hcl 4 Mg/2 Ml Vial) 4 mg IVPUSH Q8H PRN PRN Reason: Nausea and Vomiting Pyridoxine HCl (Pyridoxine Hcl (Vitamin B6) 50 Mg Tablet) 50 mg PO DAILY [facility] Sodium Chloride (0.9 % Sodium Chloride Flush 3 Ml Syringe) 3 ml IVFLUSH QSHIFT [facility] Last Admin: 01/23/25 02:06 Dose: Not Given Documented By: KIMI Non-Admin Reason: Previously Administered Thiamine HCl (Thiamine Hcl 100 Mg Tablet) 100 mg PO DAILY [facility] Vitamin D (Cholecalciferol (Vitamin D3) 25 Mcg Tablet) 50 mcg PO DAILY [facility] Labs 01/22/25 15:23 01/23/25 07:08 Labs: Laboratory Results - last 24 hr 01/22/25 01/22/25 01/23/25 15:23 17:26 07:08 MCV 86.7 MCH 28.6 MCHC 33.0 RDW 16.4 H Plt Count 94 L D MPV 8.6 L Immature Gran % (Auto) 0.2 Neut % (Auto) 70.7 Lymph % (Auto) 18.6 L [place] % (Auto) 9.3 Eos % (Auto) 0.5 Baso % (Auto) 0.7 Lymph # (Auto) 1.5 [place] # (Auto) 0.8 Eos # (Auto) 0.0 Baso # (Auto) 0.1 Abs Immat Gran (auto) 0.02 Absolute Neuts (auto) 5.7 Absolute Nucleated RBC 0.000 Nucleated RBC % (auto) 0.0 Anion Gap 16 14 Estim Creat Clear Calc 84.5 73.4 Estimated GFR > 60 > 60 Random Glucose 100 82 Lactic Acid 1.1 Calcium 9.1 8.8 Magnesium 1.1 L* 1.4 L* Iron 26 L TIBC 166 L % Saturation 16 Unsat Iron Binding 140 Ferritin 397 H Total Bilirubin 2.6 H Direct Bilirubin 1.2 H AST 25 ALT 6 Alkaline Phosphatase 134 H B-Natriuretic Peptide 1008 H 462 H Total Protein 7.7 Albumin 4.0 Lipase 9 Urine Color Yellow Urine Appearance Clear Urine pH 6.5 Ur Specific [place] 1.015 Urine Protein 100 (2+) H Urine Glucose (UA) Negative Urine Ketones Trace Urine Blood Negative Urine Nitrite Negative Ur Leukocyte Esterase Small (1+) H Urine RBC 0-2 Urine WBC 21-50 H Ur Squamous Epith Cells 0-2 Urine Bacteria Trace Hyaline Casts 0-2 Ethyl Alcohol < 10 Assessment and Plan (1) Alcohol use disorder: Status: Acute (2) Cellulitis: Status: Acute (3) Infestation, maggots: Status: Acute Plan Pt is a 64-year-old male with a PMH significant for?HTN, HLD, anemia, chronic venous stasis dermatitis, alcohol use disorder, hx of DVT no longer on anticoagulation, hx of leg edema s/p venous ablation in 2019, hx of left renal cancer s/p partial nephrectomy in 2023, CKD 3, and gout who presents to the ED from walk in clinic due to maggots in left ankle wound. Pt is admitted to the hospital for treatment and further evaluation of left leg cellulitis and electrolyte abnormalities. Left lower leg cellulitis with maggot infestation Worsening since last night No sepsis: Tachycardia, but no tachypnea or leukocytosis; lactic acid WNL Will treat with Zosyn, started 01/22/2025 for a day or 2 then po doxy General surgery consult for possible debridement Wound care consult Follow blood cultures Hypomagnesemia, likely related to chronic alcohol use Magnesium 1.1 at time of presentation, 1.4 today, IV and PO replacement and follow Elevated BNP BNP 1000, elevated from prior of 243 Denies SOB, CP, or increased LLE CXR with borderline cardiomegaly, no clear edema or effusion Given Lasix 20mg IV in the ED Repeat BNP, consider additional Lasix if clinically appropriate Alcohol dependence Reports drinking a few glasses of wine a few days of the week Last drink on Saturday night Previous hx of withdrawal Monitor on CIWA Asthma Not in acute exacerbation Continue home inhalers Anemia Stable, at baseline Continue iron supplementation HTN Continue metoprolol HLD Continue statin Full Code Attending:?Dr. Alberts DVT Prophylaxis: Lovenox Pt will require a hospitalization of at least two nights for treatment of left leg cellulits with maggot infestetion with IV antibiotics and specialist consultation with general surgery. Quality Stroke Does the patient have a stroke diagnosis?: No VTE Prior VTE?: No VTE Risk Level:: Medical - moderate - high VTE Device Contraindication: Treatment Not Indicated VTE Drug Contraindication: N/A - Med Ordered
[2025-01-23] MEDS: Atorvastatin Calcium 20 MG TABLET PO (09:18)
[2025-01-23] MEDS: Pyridoxine HCl (Vitamin B6) 50 MG TABLET PO (09:18)
[2025-01-23] MEDS: allopurinoL 300 MG TABLET PO (09:18)
[2025-01-23] MEDS: Ferrous Sulfate 324 MG TABLET.DR PO (09:18)
[2025-01-23] MEDS: Magnesium Oxide 400 MG TABLET PO (09:18)
[2025-01-23] MEDS: Calcium + Vitamin D 250 MG TABLET PO ×3 (09:18→21:00)
[2025-01-23] MEDS: Metoprolol Succinate ER 25 MG TAB.ER.24H PO (09:18)
[2025-01-23] MEDS: Folic Acid 1 MG TABLET PO (09:18)
[2025-01-23] MEDS: Thiamine HCL 100 MG TABLET PO (09:18)
[2025-01-23] MEDS: Cholecalciferol (Vitamin D3) 25 MCG TABLET 50 MCG PO (09:19)
[2025-01-23] MEDS: Magnesium Sulfate/H2O 2 GM/50 ML PIGGYBACK IV (09:23)
[2025-01-23] MEDS: 0.9 % Sodium Chloride Flush 3 ML SYRINGE IVFLUSH ×3 (09:24→21:01)
[2025-01-23] MEDS: Ascorbic Acid 500 MG TABLET PO ×2 (09:26→21:01)
--- NOTE | 2025-01-23 10:07 | PM.CNGS ---
History of Present Illness Consult details Consult date: 01/23/25 Requesting physician: Jeff Alberts Narrative: 64-year-old male patient presenting to the emergency department for painful lower extremity wounds left greater than right. He apparently was evaluated in a walk-in clinic and noted to have maggots on the left ankle wound. He has had a long history of venous stasis ulcers and previously underwent venous ablation bilaterally which helped for a short period of time however he now has new ulceration bilaterally. His past history is significant for alcohol use disorder, chronic leg edema, hypertension, CKD 3, gout, hyperlipidemia, anemia, and history of DVT. He also is status post partial nephrectomy for a left renal cancer in 2023. He presented to the emergency department and was noted to have maggots on the skin. These were irrigated with saline solution and clean dressings applied. His previous dressings were noted to be markedly soaked and foul-smelling. He is admitted to the medical service for antibiotics and electrolyte management. Review of Systems Review of Systems: Yes all other systems are reviewed and are negative PMFSH Past Medical History Medical History Abdominal wall abscess at site of surgical wound CKD stage 3a, GFR 45-59 ml/min Colitis Renal mass Renal cell carcinoma Alcohol use disorder Hyperlipidemia Ascending aortic aneurysm Alcoholic steatohepatitis Seborrheic dermatitis DEBORAH (obstructive sleep apnea) History of rhabdomyolysis Hx of lower gastrointestinal bleeding Hx of sepsis History of DVT of lower extremity Chronic ulcer of leg Chronic venous stasis HTN (hypertension) Anemia Anemia Family History Family History Mother Dementia Maternal Grandmother Dementia Surgical History Surgical History H/O partial nephrectomy Hx of colonoscopy Social History Social History Household Members: Family Household Members Other:: mother who has dementia Housing: House Housing Other:: 4 stairs to get into house. Pt lives in basement Do you presently have visiting nurse or other home services: Yes Alcohol intake: current Alcohol intake frequency: a few times a week Alcohol type: wine Comment: pt refused socks Patient Tobacco Use Status: Never used Tobacco Smoked in Last 30 Days: No Use of substances other than those prescribed or required for medical reasons: No Currently Displaying Signs/Symptoms of Drug Intoxication Withdrawal: No Have you been hit, kicked, punched, or otherwise hurt by someone within the past year? If so, by whom?: No Do you feel safe in your current relationship?: Yes Advance Directives: Yes Advance Directives on File: Yes Advance Directives Date on File: 04/13/22 Do you have a plan to hurt others: No Plan Recently lost weight without trying: No How much weight loss: Not applicable Eating poorly because of decreased appetite: No Nutrition screen score: 0 Nutrition Risks: No Nutritional Risk service: No Current occupational status: disabled Meds Allergies Allergy/AdvReac Type Severity Reaction Status Date / Time azithromycin [AZITHROMYCIN] Allergy Severe FACIAL Verified 01/22/25 14:28 SWELLING hydrochlorothiazide [HCTZ] Allergy Severe Facial Verified 01/22/25 14:28 Swelling Active Medications: Current Medications Acetaminophen (Acetaminophen 325 Mg Tablet) 650 mg PO Q6H PRN PRN Reason: Pain, Mild 1-3,fever,headache Allopurinol (Allopurinol 300 Mg Tablet) 300 mg PO DAILY [facility] Last Admin: 01/23/25 09:18 Dose: 300 mg Ascorbic Acid (Ascorbic Acid 500 Mg Tablet) 500 mg PO BID [facility] Last Admin: 01/23/25 09:26 Dose: 500 mg Atorvastatin Calcium (Atorvastatin Calcium 20 Mg Tablet) 20 mg PO DAILY [facility] Last Admin: 01/23/25 09:18 Dose: 20 mg Calcium Carbonate (Calcium Carbonate 750 Mg Tab.Chew) 750 mg PO Q4H PRN PRN Reason: Heartburn Calcium Carbonate/Cholecalciferol (Calcium + Vitamin D 250 Mg Tablet) 250 mg PO TID [facility] Last Admin: 01/23/25 09:18 Dose: 250 mg Enoxaparin Sodium (Enoxaparin Sodium 40 Mg/0.4 Ml Syringe) 40 mg SUBCUT Q24H [facility] Last Admin: 01/22/25 22:36 Dose: 40 mg Ferrous Sulfate (Ferrous Sulfate 324 Mg Tablet.Dr) 324 mg PO DAILY [facility] Last Admin: 01/23/25 09:18 Dose: 324 mg Folic Acid (Folic Acid 1 Mg Tablet) 1 mg PO DAILY [facility] Last Admin: 01/23/25 09:18 Dose: 1 mg Piperacillin Sod/Tazobactam (Sod 3.375 gm/ Sodium Chloride) 50 mls @ 100 mls/hr IV Q6H [facility] Last Infusion: 01/23/25 05:40 Dose: Infused Magnesium Sulfate (Magnesium Sulfate/H2o) 2 gm in 50 mls @ 25 mls/hr IV ONCE ONE Stop: 01/23/25 10:39 Last Admin: 01/23/25 09:23 Dose: 25 mls/hr Ketorolac Tromethamine (Ketorolac Tromethamine 15 Mg/Ml Vial) 15 mg IVPUSH Q6H PRN PRN Reason: Pain, Moderate(Pain Scale 4-6) Stop: 01/26/25 19:04 Last Admin: 01/22/25 22:59 Dose: 15 mg Magnesium Hydroxide (Milk Of Magnesia 30 Ml Oral.Susp) 30 ml PO DAILY PRN PRN Reason: Constipation Magnesium Oxide (Magnesium Oxide 400 Mg Tablet) 400 mg PO DAILY [facility] Last Admin: 01/23/25 09:18 Dose: 400 mg Melatonin (Melatonin 3 Mg Tablet) 6 mg PO BEDTIME PRN PRN Reason: Insomnia Metoprolol Succinate (Metoprolol Succinate Er 25 Mg Tab.Er.24h) 25 mg PO DAILY [facility]; Protocol Last Admin: 01/23/25 09:18 Dose: 25 mg Ondansetron HCl (Ondansetron Hcl 4 Mg/2 Ml Vial) 4 mg IVPUSH Q8H PRN PRN Reason: Nausea and Vomiting Pyridoxine HCl (Pyridoxine Hcl (Vitamin B6) 50 Mg Tablet) 50 mg PO DAILY [facility] Last Admin: 01/23/25 09:18 Dose: 50 mg Sodium Chloride (0.9 % Sodium Chloride Flush 3 Ml Syringe) [facility] Last Admin: 01/23/25 09:24 Dose: 3 ml Thiamine HCl (Thiamine Hcl 100 Mg Tablet) 100 mg PO DAILY [facility] Last Admin: 01/23/25 09:18 Dose: 100 mg Vitamin D (Cholecalciferol (Vitamin D3) 25 Mcg Tablet) 50 mcg PO DAILY [facility] Last Admin: 01/23/25 09:19 Dose: 50 mcg Home Medications ?Medication ?Instructions ?Recorded ?Confirmed ?Last Taken ?Type rosuvastatin 5 mg tablet 5 mg PO BEDTIME 08/26/23 01/22/25 2 Weeks Ago History ~01/08/25 allopurinol 300 mg tablet 300 mg PO DAILY 07/29/24 01/22/25 3 Days Ago History ~01/19/25 ascorbate calcium (vitamin C) 500 500 mg PO BID 07/29/24 01/22/25 3 Days Ago History mg tablet ~01/19/25 calcium 250 mg (as 1 tab PO TID 10/16/24 01/22/25 3 Days Ago History carbonate)-vitamin D3 3.125 mcg ~01/19/25 (125 unit) tablet (Oyster Shell Calcium-Vitamin D3) cholecalciferol (vitamin D3) 50 50 mcg PO DAILY 10/16/24 01/22/25 3 Days Ago History mcg (2,000 unit) tablet (Vitamin ~01/19/25 D3) ferrous sulfate 325 mg (65 mg 325 mg PO DAILY 10/16/24 01/22/25 3 Days Ago History iron) tablet,delayed release ~01/19/25 [id number] 1 tab PO DAILY 10/16/24 01/22/25 3 Days Ago History fumarate 7.5 mg-folic acid 400 mcg ~01/19/25 tablet pyridoxine (vitamin B6) 50 mg 50 mg PO DAILY 10/16/24 01/22/25 3 Days Ago History tablet (Vitamin B-6) ~01/19/25 thiamine HCl (vitamin B1) 100 mg 100 mg PO DAILY 10/16/24 01/22/25 3 Days Ago History tablet (Vitamin B-1) ~01/19/25 acetaminophen 325 mg tablet 650 mg PO Q4H PRN Pain (Scale 01/22/25 01/22/25 Unknown History Score 4-6) metoprolol succinate 25 mg 25 mg PO DAILY 01/22/25 01/22/25 Unknown History tablet,extended release 24 hr Physical Exam Vital Signs: Vital Signs: Last Vital Signs Temp 98.4 F 01/23/25 06:58 Pulse 87 01/23/25 06:58 Resp 18 01/23/25 06:58 BP 162/80 H 01/23/25 06:58 Pulse Ox 100 01/23/25 06:58 O2 Del Method Room Air 01/23/25 06:58 BMI result Body Mass Index 33.4 Const: General: no acute distress Nutritional Appearance: overweight Orientation/consciousness: patient oriented x3 Limitations: no limitations Resp: Effort & Inspection: normal respiratory effort GI: Inspection: Yes normal to inspection Skin: Other: See lower extremities below Neuro: General: patient oriented x3 Extrem: Other: Left leg with extensive venous stasis skin changes with brawny edema and mild ulceration especially along the medial supra malleolar region. Right leg also has some milder edema with ulceration a similar location but to a lesser degree compared to the left. No organisms are identified on the skin. Wounds were redressed with Xeroform followed by fluff gauze, ABD pad, Kerlix, and Davide bandage for compression. Results Labs 01/22/25 15:23 01/23/25 07:08 Labs: Abnormal lab results 01/22/25 01/22/25 01/23/25 Range/Units 15:23 17:26 07:08 RBC 3.60 L (4.60-5.80) X10*6/uL Hgb 10.3 L (14.0-18.0) g/dl Hct 31.2 L (42.0-52.0) % RDW 16.4 H (11.0-16.0) % Plt Count 94 L D (160-400) X10*3/uL MPV 8.6 L (9.4-12.4) fL Lymph % (Auto) 18.6 L (20-40) % Potassium 3.0 L D (3.3-5.1) mmol/L Magnesium 1.1 L* 1.4 L* (1.6-2.6) mg/dL Iron 26 L (45-160) mcg/dL TIBC 166 L (228-428) mcg/dL Ferritin 397 H (20-250) ng/mL Total Bilirubin 2.6 H (0.0-1.0) mg/dL Direct Bilirubin 1.2 H (0.0-0.5) mg/dL Alkaline Phosphatase 134 H (39-117) U/L B-Natriuretic Peptide 1008 H 462 H (<100) pg/mL Urine Protein 100 (2+) H (Neg-Trace) mg/dL Ur Leukocyte Esterase Small (1+) H (Negative) Urine WBC 21-50 H (0-5) /HPF Short CBC 01/22/25 Range/Units 15:23 WBC 8.1 (4.8-10.8) X10*3/uL Hgb 10.3 L (14.0-18.0) g/dl Hct 31.2 L (42.0-52.0) % Plt Count 94 L D (160-400) X10*3/uL BMP 01/22/25 01/23/25 15:23 07:08 Sodium 142 141 Potassium 3.9 3.0 L D Chloride 103 104 Carbon Dioxide 27 26 BUN 13 15 Creatinine 0.99 1.14 Calcium 9.1 8.8 Liver Function 01/22/25 Range/Units 15:23 Total Bilirubin 2.6 H (0.0-1.0) mg/dL Direct Bilirubin 1.2 H (0.0-0.5) mg/dL AST 25 (5-37) U/L ALT 6 (0-40) U/L Alkaline Phosphatase 134 H (39-117) U/L Albumin 4.0 (3.5-5.0) g/dL Urine 01/22/25 Range/Units 17:26 Urine Color Yellow Urine Appearance Clear Urine pH 6.5 (5.0-9.0) Ur Specific [place] 1.015 (1.005-1.025) Urine Protein 100 (2+) H (Neg-Trace) mg/dL Urine Glucose (UA) Negative (Negative) mg/dL All other labs normal. Assessment and Plan (1) Infestation, maggots: Status: Acute (2) Venous stasis ulcer: Qualifiers: Venous stasis ulcer site: calf Varicose vein presence: without varicose veins Laterality: unspecified laterality Non-pressure ulcer stage: limited to breakdown of skin Qualified Code(s): I87.2 - Venous insufficiency (chronic) (peripheral); L97.201 - Non-pressure chronic ulcer of unspecified calf limited to breakdown of skin Status: Acute Plan 64-year-old male patient with multiple medical problems found to have maggot infestation, cellulitis and ulceration in the lower extremities due to venous stasis. His varicosities were previously evaluated and no current varicosities were identified. Examination today revealed no further infestation and some mild superficial ulceration left greater than right medial supramalleolar regions. Wounds were redressed with Xeroform followed by fluff gauze, ABD, Kerlix, and Davide bandage compression. Recommend continued leg elevation and compressive dressings with dressing changes at least twice daily. Would continue with the antibiotics as well (Zosyn currently). I will continue to monitor during his hospitalization. We will need wound care follow-up upon discharge. (apparently patient is already scheduled for an appointment). Procedures Date of Service Date of Service: 01/23/25
[2025-01-23 15:23] VITALS: BP 132/72; PULSE 65; RESP 18; TEMP 36.7; O2SAT 99
--- NOTE | 2025-01-23 16:20 | MHC.CM.PN ---
PT REPORTS HE LIVES WITH, AND CARES FOR, HIS MOTHER WHO HAS DEMENTIA HE USES A ROLLATOR BUT STATES HE CAN GO SHORT DISTANCES WITH NO DME REPORTS BEING ACTIVE WITH [employer] FOR SHELTER SERVICES HCP ON FILE PCP: LYNN GUTIERREZ DCP: HOME RESUME [facility] WILL NEED SHUTTLE VS LYFT
[2025-01-23 19:41] VITALS: BP 142/75; PULSE 78; RESP 18; TEMP 36.6; O2SAT 97
[2025-01-23] MEDS: Enoxaparin Sodium 40 MG/0.4 ML SYRINGE SUBCUT (21:02)
[2025-01-24 03:29] VITALS: BP 165/80; PULSE 63; RESP 18; TEMP 36.4; O2SAT 98
[2025-01-24] MEDS: Piperacillin Sodium/Tazobactam 3.375 GM in 0.9 % Sodium Chloride 50 ML IV ×2 (03:57→11:33)
[2025-01-24 06:12] LABS: Blood Urea Nitrogen 16 mg/dL (9-16); Carbon Dioxide 26 mmol/L (22-29); Chloride 104 mmol/L (96-108); Creatinine Clr Calc Pharmacy 79.7; Estimated Glomerular Filt Rate > 60; Glucose Random 95 mg/dL (60-115); Magnesium 1.5 mg/dL (1.6-2.6); Potassium 3.3 mmol/L (3.3-5.1); Sodium 141 mmol/L (135-145)
[2025-01-24 07:07] VITALS: BP 152/82; PULSE 69; RESP 16; TEMP 36.6; O2SAT 100
[2025-01-24 07:13] LABS: Anion Gap 15 (12-20)
--- NOTE | 2025-01-24 09:14 | P.PNIM_ITS ---
Subjective Subjective Date of Service: 01/24/25 Interval History: f/u on infected leg ulcers with magots looks looks clean, infestation with magot resolved Physical Exam 2 Vital Signs: Vital Signs: Last Vital Signs Temp 97.9 F 01/24/25 07:07 Pulse 69 01/24/25 07:07 Resp 16 01/24/25 07:07 BP 152/82 H 01/24/25 07:07 Pulse Ox 100 01/24/25 07:07 O2 Del Method Room Air 01/24/25 07:07 BMI result Body Mass Index 33.4 Appearance: Alert. Oriented X3. No acute distress. Eyes: Pupils equal, round and reactive to light. ENT: Pharynx normal. Neck: Normal inspection. Neck supple. CVS: Normal heart rate and rhythm. Pulses normal. Respiratory: No respiratory distress. Breath sounds normal. Abdomen: Soft and nontender. Skin: Skin warm and dry. Normal skin color. Normal skin turgor. Extremities: both legs are edematous with 2+ pitting, there is scaling non red skin on R leg and no maggots seen on L leg there is redness, warmth and flies as well as numerous maggots on LLE please see picture below Neuro: Oriented X 3. No motor deficit. No sensory deficit. CN2-12 intact Objective Data Active Medications Acetaminophen (Acetaminophen 325 Mg Tablet) 650 mg PO Q6H PRN PRN Reason: Pain, Mild 1-3,fever,headache Allopurinol (Allopurinol 300 Mg Tablet) 300 mg PO DAILY [facility] Last Admin: 01/23/25 09:18 Dose: 300 mg Documented By: YASMEEN Ascorbic Acid (Ascorbic Acid 500 Mg Tablet) 500 mg PO BID [facility] Last Admin: 01/23/25 21:01 Dose: 500 mg Documented By: PARMINDER Atorvastatin Calcium (Atorvastatin Calcium 20 Mg Tablet) 20 mg PO DAILY [facility] Last Admin: 01/23/25 09:18 Dose: 20 mg Documented By: YASMEEN Calcium Carbonate (Calcium Carbonate 750 Mg Tab.Chew) 750 mg PO Q4H PRN PRN Reason: Heartburn Calcium Carbonate/Cholecalciferol (Calcium + Vitamin D 250 Mg Tablet) 250 mg PO TID [facility] Last Admin: 01/23/25 21:00 Dose: 250 mg Documented By: PARMINDER Enoxaparin Sodium (Enoxaparin Sodium 40 Mg/0.4 Ml Syringe) 40 mg SUBCUT Q24H [facility] Last Admin: 01/23/25 21:02 Dose: 40 mg Documented By: PARMINDER Ferrous Sulfate (Ferrous Sulfate 324 Mg Tablet.Dr) 324 mg PO DAILY [facility] Last Admin: 01/23/25 09:18 Dose: 324 mg Documented By: YASMEEN Folic Acid (Folic Acid 1 Mg Tablet) 1 mg PO DAILY [facility] Last Admin: 01/23/25 09:18 Dose: 1 mg Documented By: YASMEEN Piperacillin Sod/Tazobactam (Sod 3.375 gm/ Sodium Chloride) 50 mls @ 100 mls/hr IV Q6H [facility] Last Infusion: 01/24/25 04:44 Dose: Infused Documented By: JUAN Ketorolac Tromethamine (Ketorolac Tromethamine 15 Mg/Ml Vial) 15 mg IVPUSH Q6H PRN PRN Reason: Pain, Moderate(Pain Scale 4-6) Stop: 01/26/25 19:04 Last Admin: 01/22/25 22:59 Dose: 15 mg Documented By: KIMI Magnesium Hydroxide (Milk Of Magnesia 30 Ml Oral.Susp) 30 ml PO DAILY PRN PRN Reason: Constipation Magnesium Oxide (Magnesium Oxide 400 Mg Tablet) 400 mg PO DAILY [facility] Last Admin: 01/23/25 09:18 Dose: 400 mg Documented By: YASMEEN Melatonin (Melatonin 3 Mg Tablet) 6 mg PO BEDTIME PRN PRN Reason: Insomnia Metoprolol Succinate (Metoprolol Succinate Er 25 Mg Tab.Er.24h) 25 mg PO DAILY [facility]; Protocol Last Admin: 01/23/25 09:18 Dose: 25 mg Documented By: YASMEEN Ondansetron HCl (Ondansetron Hcl 4 Mg/2 Ml Vial) 4 mg IVPUSH Q8H PRN PRN Reason: Nausea and Vomiting Pyridoxine HCl (Pyridoxine Hcl (Vitamin B6) 50 Mg Tablet) 50 mg PO DAILY [facility] Last Admin: 01/23/25 09:18 Dose: 50 mg Documented By: YASMEEN Sodium Chloride (0.9 % Sodium Chloride Flush 3 Ml Syringe) 3 ml IVFLUSH QSHIFT [facility] Last Admin: 01/23/25 21:01 Dose: 3 ml Documented By: PARMINDER Thiamine HCl (Thiamine Hcl 100 Mg Tablet) 100 mg PO DAILY [facility] Last Admin: 01/23/25 09:18 Dose: 100 mg Documented By: YASMEEN Vitamin D (Cholecalciferol (Vitamin D3) 25 Mcg Tablet) 50 mcg PO DAILY [facility] Last Admin: 01/23/25 09:19 Dose: 50 mcg Documented By: YASMEEN Labs 01/22/25 15:23 01/24/25 05:45 Labs: Laboratory Results - last 24 hr 01/24/25 05:45 Hold Purple Top SEE NOTE Anion Gap 15 Estim Creat Clear Calc 79.7 Estimated GFR > 60 Random Glucose 95 Calcium 9.0 Magnesium 1.5 L Microbiology Microbiology Results: Microbiology 01/22/25 Unknown Urine Culture - Final Urine clean catch - Clean Catch Midstream Proteus mirabilis 01/22/25 15:50 Blood Culture - Preliminary Blood - Venous No growth after 24 hours. 01/22/25 15:23 Blood Culture - Preliminary Blood - Venous No growth after 24 hours. Assessment and Plan (1) Alcohol use disorder: Status: Acute (2) Cellulitis: Status: Acute (3) Infestation, maggots: Status: Acute Plan Pt is a 64-year-old male with a PMH significant for?HTN, HLD, anemia, chronic venous stasis dermatitis, alcohol use disorder, hx of DVT no longer on anticoagulation, hx of leg edema s/p venous ablation in 2018, hx of left renal cancer s/p partial nephrectomy in 2023, CKD 3, and gout who presents to the ED from walk in clinic due to maggots in left ankle wound. Pt is admitted to the hospital for treatment and further evaluation of left leg cellulitis and electrolyte abnormalities. Left lower leg cellulitis with maggot infestation Worsening since last night No sepsis: Tachycardia, but no tachypnea or leukocytosis; lactic acid WNL Will treat with Zosyn, started 01/22/2025, will transition to oral doxy and Augmentin x 7 days General surgery consult for possible debridement Seen by surgery, non indication for debridment cultures negative so far Hypomagnesemia, likely related to chronic alcohol use Magnesium 1.1 at time of presentation, 1.5 today, IV and PO replacement and follow Elevated BNP BNP 1000, elevated from prior of 243 Denies SOB, CP, or increased LLE CXR with borderline cardiomegaly, no clear edema or effusion Given Lasix 20mg IV in the ED Repeat BNP, consider additional Lasix if clinically appropriate Alcohol dependence Reports drinking a few glasses of wine a few days of the week Last drink on Saturday night Previous hx of withdrawal Monitor on CIWA Asthma Not in acute exacerbation Continue home inhalers Anemia Stable, at baseline Continue iron supplementation HTN Continue metoprolol HLD Continue statin Full Code Attending:?Dr. Alberts DVT Prophylaxis: Lovenox Pt will require a hospitalization of at least two nights for treatment of left leg cellulits with maggot infestetion with IV antibiotics and specialist consultation with general surgery. Quality Stroke Does the patient have a stroke diagnosis?: No VTE Prior VTE?: No VTE Risk Level:: Medical - moderate - high VTE Device Contraindication: Treatment Not Indicated VTE Drug Contraindication: N/A - Med Ordered
[2025-01-24 09:22] LABS: MANUAL DIFF FLAG NO
--- NOTE | 2025-01-24 09:23 | P.DS_ITS ---
DS: Providers Provider Date of Service: 01/24/25 Date of admission: 01/22/25 17:01 Date of discharge: 01/24/25 Primary care physician: Samantha Gonzales MD Consults: 01/22/25 19:07 Consult to General Surgery Routine Consulting Provider: [facility] [place] General Surgeons Reason for consultation: Left leg wounds w/maggot infestation 01/23/25 04:00 Consult to Wound Care Routine Reason for consultation: venous stasis wound to b/l legs, L hand warm/red, L abdomen, MASD to buttoc DS: Diagnosis Discharge Diagnosis (1) Alcohol use disorder: Status: Acute (2) Cellulitis: Status: Acute (3) Infestation, maggots: Status: Acute DS: Summary Hospital Course Hospital Course: admission Attending physician on admission: [facility] Chief Complaint: Maggots in left ankle wound Pt is a 64-year-old male with a PMH significant for?HTN, HLD, anemia, chronic venous stasis dermatitis, alcohol use disorder, hx of DVT no longer on anticoagulation, hx of leg edema s/p venous ablation in 2018, hx of left renal cancer s/p partial nephrectomy in 2023, CKD 3, and gout who presents to the ED from walk in clinic due to maggots in left ankle wound. Pt reports VNA services yesterday put a bandage on his left lower leg as it was blistering and weeping. Later that evening pt experienced significant leg pain and felt movement in his bandages from what he assumed were ?little critters?. Was unable to sleep due to pain and discomfort. Presented to the walk-in clinic today where he was found to have maggots in left ankle wounds when bandages were removed. pt was sent to the ED for further evaluation. Pt denies fever, chills. No nausea, vomiting, abdominal pain. No chest pain/pressure, palpitations. Denies shortness or breath or difficulty breathing. In the ED pt with low-grade fever of 100.8, tachycardia up to 97, and hypertension up to 168/85. Labs were significant for magnesium 1.1, T bili 2.6, and BNP 1108 (previous 243 on 05/13/2024). No leukocytosis. Stable H&H of 10.3/31.2. No electrolyte abnormalities. Renal function WNL. Lactic acid WNL at 1.1. CXR showed underlying cardiac enlargement, and pulmonary vascular crowding. EKG demonstrated normal sinus rhythm with left anterior fascicular block, similar to prior. Pt was treated in the ED with Mag sulfate, acetaminophen, thiamine, Lasix 20 mg IV, and Zosyn. Pt is admitted to the hospital for treatment and further evaluation of left leg cellulitis and electrolyte abnormalities. hospital course: Patient was admitted and started on broad-spectrum antibiotics with Zosyn, WBCs are within normal. Cultures are so far negative the wound has been clean and there is no evidence of infestation. He will be transitioned to oral Augmentin and doxycycline and to follow up with the Wound Clinic as previously arranged tomorrow Time Attestation Discharge Coordination Time (in mins): 45 Quality: Safe Use of Opioids Does Pt have an Active Cancer Diagnosis on the Problem List?: No Quality: Stroke Does the patient have a stroke diagnosis?: No Physical Exam Vital Signs: Vital Signs: Last Vital Signs Temp 97.9 F 01/24/25 07:07 Pulse 69 01/24/25 07:07 Resp 16 01/24/25 07:07 BP 152/82 H 01/24/25 07:07 Pulse Ox 100 01/24/25 07:07 O2 Del Method Room Air 01/24/25 07:07 BMI result Body Mass Index 33.4 DS: Data Data Completed and Pending Completed studies during hospitalization [Text1]: Procedures Detoxification Services for Substance Abuse Treatment (10/16/24) Drainage of Abdomen Subcutaneous Tissue and Fascia, Open Approach (05/13/24) Excision of Descending Colon, Via Natural or Artificial Opening Endoscopic, Diagnostic (09/25/23) Excision of Duodenum, Via Natural or Artificial Opening Endoscopic, Diagnostic (09/25/23) Excision of Stomach, Pylorus, Via Natural or Artificial Opening Endoscopic, Diagnostic (09/25/23) Transfusion of Nonautologous Red Blood Cells into Peripheral Vein, Percutaneous Approach (09/25/23) Labs on day of discharge: Laboratory Results - last 24 hr 01/24/25 05:45 Hold Purple Top SEE NOTE Sodium 141 Potassium 3.3 Chloride 104 Carbon Dioxide 26 Anion Gap 15 BUN 16 Creatinine 1.05 Estim Creat Clear Calc 79.7 Estimated GFR > 60 Random Glucose 95 Calcium 9.0 Magnesium 1.5 L Preliminary micro results at discharge 01/22/25 15:50 Blood Culture - Preliminary Blood - Venous No growth after 24 hours. 01/22/25 15:23 Blood Culture - Preliminary Blood - Venous No growth after 24 hours. Discharge Plan Discharge Anticipated Discharge Date/Time: 01/24/25 09:24 Patient Disposition: Home, Self-Care Discharge Diagnosis: Chronic venous stasuis ulcers with secondary magot infestation Referrals: Samantha Gonzales MD [Primary Care Provider] - 1 Week Discharge Medications: New amoxicillin-pot clavulanate 875-125 mg tablet 1 tab PO BID Qty: 14 0RF doxycycline monohydrate 100 mg capsule 100 mg PO BID Qty: 14 0RF Continued magnesium oxide 400 mg (241.3 mg magnesium) tablet 400 mg PO DAILY Qty: 10 0RF rosuvastatin 5 mg Tablet 5 mg PO BEDTIME folic acid 1 mg tablet 1 mg PO DAILY Qty: 30 0RF acetaminophen 325 mg Tablet 650 mg PO Q4H PRN (Reason: Pain (Scale Score 4-6)) metoprolol succinate 25 mg Tablet Extended Release 24 Hr 25 mg PO DAILY thiamine HCl (vitamin B1) [Vitamin B-1] 100 mg Tablet 100 mg PO DAILY pyridoxine (vitamin B6) [Vitamin B-6] 50 mg Tablet 50 mg PO DAILY calcium carbonate-vitamin D3 [Oyster Shell Calcium-Vit D3] 250 mg-3.125 mcg (125 unit) tablet 1 tab PO TID cholecalciferol (vitamin D3) [Vitamin D3] 50 mcg (2,000 unit) Tablet 50 mcg PO DAILY ymeaaarj-tni-icjd fum-folic ac 7.5 mg iron-400 mcg tablet 1 tab PO DAILY ferrous sulfate 325 mg (65 mg iron) Tablet,Delayed Release (Dr/Ec) 325 mg PO DAILY allopurinol 300 mg tablet 300 mg PO DAILY ascorbate calcium (vitamin C) 500 mg tablet 500 mg PO BID Diet: Advance to usual diet Activity on Discharge: As tolerated Stand Alone Forms: Patient Portal Discharge page Print Language: Fijian Care Plan Goals: recovery from cellultis, chronic leg wounds Health Concerns: chronic venous stasis ulcers, cellulitis Plan of Treatment: take Augmentin and Doxycline as recommended and follow up with your doctor in a week follow up with wound clinic as scheduled Assessment: see above
[2025-01-24] MEDS: Cholecalciferol (Vitamin D3) 25 MCG TABLET 50 MCG PO (09:24)
[2025-01-24 09:25] LABS: Basophils Percent Auto 0.7 % (0-2); Eosinophils Absolute Auto 0.3 X10*3/uL (0.0-0.4); Eosinophils Percent Auto 4.1 % (0-4); Hematocrit 28.1 % (42.0-52.0); Hemoglobin 9.1 g/dl (14.0-18.0); Imm Gran Abs Auto 0.02 X10*3/uL (0.00-0.03); Imm Gran Pct Auto 0.3 % (0.0-0.4); Lymphocytes Absolute Auto 1.4 X10*3/uL (1.2-4.9); Lymphocytes Percent Auto 23.5 % (20-40); Mean Corpuscular HGB Conc 32.4 g/dl (31.0-36.0); Mean Corpuscular Hemoglobin 28.6 pg (27.0-33.0); Mean Corpuscular Volume 88.4 fL (80.0-98.0); Mean Platelet Volume 9.7 fL (9.4-12.4); Monocytes Absolute Auto 0.4 X10*3/uL (0.1-1.2); Monocytes Percent Auto 7.1 % (2-11); Neutrophils Absolute Auto 3.9 x10*3/uL (2.0-8.3); Neutrophils Percent Auto 64.3 % (45-73); Platelet Count 101 X10*3/uL (160-400); Red Blood Count 3.18 X10*6/uL (4.60-5.80); Red Cell Distribution Width 15.9 % (11.0-16.0)
[2025-01-24] MEDS: Pyridoxine HCl (Vitamin B6) 50 MG TABLET PO (09:25)
[2025-01-24] MEDS: Ascorbic Acid 500 MG TABLET PO (09:25)
[2025-01-24] MEDS: Folic Acid 1 MG TABLET PO (09:25)
[2025-01-24] MEDS: Ferrous Sulfate 324 MG TABLET.DR PO (09:25)
[2025-01-24] MEDS: Calcium + Vitamin D 250 MG TABLET PO ×2 (09:25→14:10)
[2025-01-24] MEDS: Thiamine HCL 100 MG TABLET PO (09:25)
[2025-01-24] MEDS: allopurinoL 300 MG TABLET PO (09:25)
[2025-01-24] MEDS: Atorvastatin Calcium 20 MG TABLET PO (09:25)
[2025-01-24] MEDS: Magnesium Oxide 400 MG TABLET PO (09:25)
[2025-01-24] MEDS: Metoprolol Succinate ER 25 MG TAB.ER.24H PO (09:25)
[2025-01-24] MEDS: 0.9 % Sodium Chloride Flush 3 ML SYRINGE IVFLUSH ×2 (09:27→14:11)
[2025-01-24] MEDS: Magnesium Sulfate/H2O 2 GM/50 ML PIGGYBACK IV (09:44)
--- NOTE | 2025-01-24 14:05 | MHC.CM.PN ---
PT WILL DC HOME TODAY WITH RESUMPTION OPF [facility] FOLLOW UP LYFT TRANSPORT SCHEDULED FOR 1630 HOURS, PT IS AWARE THEY WILL SEND NOTIFICATIONS DIRECTLY TO HIS CELL
[2025-01-24] MEDS: Amoxicillin/Potassium Clav 875 MG TABLET PO (14:51)
[2025-01-24] MEDS: Doxycycline Monohydrate 100 MG CAPSULE PO (14:51)
[2025-01-24 15:48] VITALS: BP 134/63; PULSE 71; RESP 18; TEMP 37.1; O2SAT 97
== END 2025-01-24 16:38 | disposition home health service (06) | DRG 383 ==
LOC: HO.ED 16:09 → HO.EDOVER 17:30 → HO.S3 19:10
PROVIDERS: Admitting Provider Student in an Organized Health Care Education/Training Program; Emergency Provider Emergency Medicine; PCP Family Medicine; Visit Provider Internal Medicine
DX: L03.116 Cellulitis of left lower limb (principal); D63.1 Anemia in chronic kidney disease; L97.221 Non-pressure chronic ulcer of left calf limited to breakdown of skin; I87.2 Venous insufficiency (chronic) (peripheral); B87.1 Wound myiasis; E83.42 Hypomagnesemia; F10.20 Alcohol dependence, uncomplicated; I12.9 Hypertensive chronic kidney disease with stage 1 through stage 4 chronic kidney disease, or unspecified chronic kidney disease; J45.909 Unspecified asthma, uncomplicated; N18.30 Chronic kidney disease, stage 3 unspecified; Z79.899 Other long term (current) drug therapy
CPT/HCPCS: 36415; 71045; 80048; 80076; 80307; 81001; 82728; 83540; 83605; 83690; 83735; 83880; 85025; 87040; 87086; 87088; 87186; 93005; 99285; J1650; J1885; J1938; J2543; J3411; J3475

== ENCOUNTER → 2025-01-22 16:07 | Outpatient (BNV) | payer MEDICAID, SELFPAY | PROVIDERS: Emergency Provider Emergency Medicine; PCP Family Medicine; Visit Provider Radiology Diagnostic Radiology | DX: I51.7 Cardiomegaly (principal) | CPT/HCPCS: 71045 ==

== ENCOUNTER → 2025-01-22 16:47 | Outpatient (BNV) | payer MEDICAID, SELFPAY | PROVIDERS: Admitting Provider Student in an Organized Health Care Education/Training Program; Emergency Provider Emergency Medicine; PCP Family Medicine; Visit Provider Internal Medicine | DX: I44.4 Left anterior fascicular block (principal) | CPT/HCPCS: 93010 ==

== ENCOUNTER → 2025-01-22 17:01 | Outpatient (BNV) | payer MEDICAID, SELFPAY | PROVIDERS: Admitting Provider Student in an Organized Health Care Education/Training Program; Emergency Provider Emergency Medicine; PCP Family Medicine; Visit Provider Surgery | DX: B87.9 Myiasis, unspecified (principal); I87.2 Venous insufficiency (chronic) (peripheral); L97.201 Non-pressure chronic ulcer of unspecified calf limited to breakdown of skin | CPT/HCPCS: 99222 ==

== ENCOUNTER → 2025-01-22 17:01 | Outpatient (BNV) | payer MEDICAID, SELFPAY | PROVIDERS: Admitting Provider Student in an Organized Health Care Education/Training Program; Emergency Provider Emergency Medicine; PCP Family Medicine; Visit Provider Student in an Organized Health Care Education/Training Program | DX: F10.90 Alcohol use, unspecified, uncomplicated (principal); L03.116 Cellulitis of left lower limb; B87.9 Myiasis, unspecified | CPT/HCPCS: 99223; 99233; 99239; 99499 ==

== ENCOUNTER 2025-02-08 13:20 | Emergency (ER) | payer MEDICAID, SELFPAY ==
--- NOTE | ~2025-02-08 | XR_ITS ---
EXAMINATION: XR CHEST CLINICAL INFORMATION: SOB COMPARISON: January 22, 2025. TECHNIQUE: 2 views of the chest were obtained. FINDINGS: No hyperinflation. No consolidation pleural effusion or pneumothorax. Cardiomediastinal silhouette size is normal. Calcified plaque thoracic aortic arch. Multilevel spondylosis. Patient's large body habitus. XR/XR chest 2V IMPRESSION: No acute airspace disease. Electronically signed by: Daniel Lundberg MD 02/08/2025 02:20 PM EDT
[2025-02-08 13:23] VITALS: BP 158/94; PULSE 104; RESP 18; TEMP 36.4; O2SAT 100; BMI 33.6
--- NOTE | 2025-02-08 13:23 | ED.GENADULT ---
HPI - General Adult General Chief complaint: General Medical Stated complaint: Dizziness Weakness Time Seen by Provider: 02/08/25 16:04 History of Present Illness ED Provider: Bong Marie MD HPI narrative: 64-year-old male who comes in tells me he had a vomiting episode earlier and diarrhea. Very hot out today and he was walking felt extremely warm. No chest pain no headache. No focal neurologic deficits. Earlier today he went to the Wound Care and had dressings placed on his legs bilaterally. Related Data Home Medications ?Medication ?Instructions ?Recorded ?Confirmed rosuvastatin 5 mg tablet 5 mg PO BEDTIME 08/26/23 01/22/25 allopurinol 300 mg tablet 300 mg PO DAILY 07/29/24 01/22/25 ascorbate calcium (vitamin C) 500 500 mg PO BID 07/29/24 01/22/25 mg tablet calcium 250 mg (as 1 tab PO TID 10/16/24 01/22/25 carbonate)-vitamin D3 3.125 mcg (125 unit) tablet (Oyster Shell Calcium-Vitamin D3) cholecalciferol (vitamin D3) 50 50 mcg PO DAILY 10/16/24 01/22/25 mcg (2,000 unit) tablet (Vitamin D3) ferrous sulfate 325 mg (65 mg 325 mg PO DAILY 10/16/24 01/22/25 iron) tablet,delayed release szodlcanhpob-ynuwaflv-fgkw 1 tab PO DAILY 10/16/24 01/22/25 fumarate 7.5 mg-folic acid 400 mcg tablet pyridoxine (vitamin B6) 50 mg 50 mg PO DAILY 10/16/24 01/22/25 tablet (Vitamin B-6) thiamine HCl (vitamin B1) 100 mg 100 mg PO DAILY 10/16/24 01/22/25 tablet (Vitamin B-1) acetaminophen 325 mg tablet 650 mg PO Q4H PRN Pain (Scale 01/22/25 01/22/25 Score 4-6) metoprolol succinate 25 mg 25 mg PO DAILY 01/22/25 01/22/25 tablet,extended release 24 hr Previous Rx's ?Medication ?Instructions ?Recorded magnesium oxide 400 mg (241.3 mg 400 mg PO DAILY #10 tabs 04/25/23 magnesium) tablet folic acid 1 mg tablet 1 mg PO DAILY #30 tabs 10/01/23 amoxicillin 875 mg-potassium 1 tab PO BID #14 tabs 01/24/25 clavulanate 125 mg tablet doxycycline monohydrate 100 mg 100 mg PO BID #14 caps 01/24/25 capsule torsemide 20 mg tablet 20 mg PO Q OTHER DAY 90 days #45 02/05/25 tabs Allergies Allergy/AdvReac Type Severity Reaction Status Date / Time azithromycin (AZITHROMYCIN) Allergy Severe FACIAL Verified 02/08/25 13:25 SWELLING hydrochlorothiazide (HCTZ) Allergy Severe Facial Verified 02/08/25 13:25 Swelling PMFSH Past Medical History Medical History Abdominal wall abscess at site of surgical wound CKD stage 3a, GFR 45-59 ml/min Colitis Renal mass Renal cell carcinoma Alcohol use disorder Hyperlipidemia Ascending aortic aneurysm Alcoholic steatohepatitis Seborrheic dermatitis DEBORAH (obstructive sleep apnea) History of rhabdomyolysis Hx of lower gastrointestinal bleeding Hx of sepsis History of DVT of lower extremity Chronic ulcer of leg Chronic venous stasis HTN (hypertension) Anemia Anemia Surgical History H/O partial nephrectomy Hx of colonoscopy Family History Family History Mother Dementia Maternal Grandmother Dementia Social History Social History Household Members: Family Household Members Other:: mother who has dementia Housing: House Housing Other:: 4 stairs to get into house. Pt lives in basement Do you presently have visiting nurse or other home services: Yes Alcohol intake: current Alcohol intake frequency: a few times a week Alcohol type: wine Comment: pt refused socks Patient Tobacco Use Status: Never used Tobacco Smoked in Last 30 Days: No Use of substances other than those prescribed or required for medical reasons: No Advance Directives: Yes Advance Directives on File: Yes Advance Directives Date on File: 04/13/22 service: No Current occupational status: disabled Physical Exam ED Vital Signs: Vital Signs - 24 hr 02/08/25 13:23 02/08/25 16:15 02/08/25 18:12 Temperature 97.6 F 98.2 F 98.9 F Pulse Rate 104 H 90 90 Respiratory Rate 18 18 18 Blood Pressure 158/94 H 146/87 H 150/83 H Pulse Oximetry 100 98 97 Oxygen Delivery Method Room Air Room Air Room Air 06/23/25 19:55 02/08/25 21:03 Temperature 98.8 F 98.3 F Pulse Rate 82 89 Respiratory Rate 18 16 Blood Pressure 165/90 H 153/89 H Pulse Oximetry 100 99 Oxygen Delivery Method Room Air Room Air BMI result Body Mass Index 33.6 Const Other: EXAM: Gen: Alert, awake, well appearing, well hydrated. Head: Atraumatic Eyes: Anicteric, Normal conjunctiva. ENT: Moist mucosa, no pallor. ? Neck: Supple. Skin: ?No observable rash or bruising on exposed or examined skin Respiratory: Breathing comfortably, No distress.Clear to auscultation bilaterally, symmetric chest expansion, No wheeze, rales, ronchi. Cardiovascular: Regular rate and rhythm. No murmurs or rub. Well perfused periphery, warm extremities. No edema. ? Abdominal: No FOCAL TENDERNESS. Soft, no objective distension. No palpable masses or obvious organomegaly. ?No guarding, no rebound tenderness or other peritoneal findings. : No flank tenderness. Neuro: Alert. Gross movement of all extremities intact. ? Psych: Calm. Cooperative. MSK: Bilateral lower extremities freshly wrapped I did not undress these Vital signs: See flowsheet Course Course Course Narrative: This is an RME: Additional HPI, ROS, PE not included below will be deferred to primary provider. RME assessment and note performed by: Olivia Barron PA-C 64 yo male with PMH of alcohol use disorder, chronic leg edema and chronic wounds managed by VNA, CKD, HTN, anemia, who presents to the ER with complaints of diarrhea and dizziness. Reports that he missed the bus to get to his wound care appointment and he walked to the appointment and he soiled himself. He states that he then vomited. He reports some SOB. Reporting weakness in his legs and pain in his legs - recent admission for maggots in BL leg wounds. Plan: Labs, EKG, CXR further ER eval needed Medications Administered Discontinued Medications Generic Name Dose Route Start Last Admin Trade Name Freq PRN Reason Stop Dose Admin Magnesium Sulfate 2 gm in 50 mls @ 150 mls/hr 02/08/25 15:00 02/08/25 15:37 Magnesium Sulfate/H2o IV 02/08/25 15:19 Infused ONCE ONE Infusion Magnesium Sulfate 2 gm in 50 mls @ 25 mls/hr 02/08/25 16:05 02/08/25 18:12 Magnesium Sulfate/H2o IV 02/08/25 18:04 Infused ONCE ONE Infusion Magnesium Oxide 800 mg 02/08/25 16:05 02/08/25 16:18 Magnesium Oxide 400 Mg Tablet PO 02/08/25 16:06 800 mg ONCE ONE Administration Medical Decision Making Medical Decision Making MDM Narrative: 64-year-old male with GI symptoms diarrhea vomiting. Several hours in the ED with no diarrhea or vomiting. He is hypomagnesemic. We have repleted him here he has improved on repeat to 2.0. Case management was consulted unfortunately we can not offer any additional services for him. He tells me that his apartment currently is without heat. It is 100 degree and high percentage humidity day. I do not think it is prudent or ethical to send this patient home at this time tomorrow he may be discharge to local cooling center Consult Healthcare Provider Management of the patient was discussed with: Hydrometer Calibrator (Case management) Lab Data 02/08/25 13:57 02/08/25 13:58 Labs: Lab Results 02/08/25 02/08/25 02/08/25 Range/Units 13:57 13:58 19:53 WBC 6.4 (4.8-10.8) X10*3/uL RBC 3.51 L (4.60-5.80) X10*6/uL Hgb 10.1 L (14.0-18.0) g/dl Hct 30.6 L (42.0-52.0) % MCV 87.2 (80.0-98.0) fL MCH 28.8 (27.0-33.0) pg MCHC 33.0 (31.0-36.0) g/dl RDW 16.8 H (11.0-16.0) % Plt Count 63 L D (160-400) X10*3/uL MPV 8.1 L (9.4-12.4) fL Immature Gran % (Auto) 0.5 H (0.0-0.4) % Neut % (Auto) 72.3 (45-73) % Lymph % (Auto) 19.5 L (20-40) % Cobb % (Auto) 6.1 (2-11) % Eos % (Auto) 0.8 (0-4) % Baso % (Auto) 0.8 (0-2) % Lymph # (Auto) 1.3 (1.2-4.9) X10*3/uL Cobb # (Auto) 0.4 (0.1-1.2) X10*3/uL Eos # (Auto) 0.1 (0.0-0.4) X10*3/uL Baso # (Auto) 0.1 (0.0-0.2) X10*3/uL Abs Immat Gran (auto) 0.03 (0.00-0.03) X10*3/uL Absolute Neuts (auto) 4.6 (2.0-8.3) x10*3/uL Absolute Nucleated RBC 0.000 (0.0-0.012) X10*3/uL Nucleated RBC % (auto) 0.0 (0.0-0.2) /100WBC Sodium 142 (135-145) mmol/L Potassium 3.6 (3.3-5.1) mmol/L Chloride 107 (96-108) mmol/L Carbon Dioxide 20 L (22-29) mmol/L Anion Gap 19 (12-20) BUN 9 (9-16) mg/dL Creatinine 1.04 (0.5-1.4) mg/dL Estim Creat Clear Calc 80.8 Estimated GFR > 60 Random Glucose 88 (60-115) mg/dL Calcium 8.9 (8.4-10.2) mg/dL Magnesium 1.0 L* 2.0 (1.6-2.6) mg/dL Total Bilirubin 2.1 H (0.0-1.0) mg/dL Direct Bilirubin 0.9 H (0.0-0.5) mg/dL AST 57 H (5-37) U/L ALT 13 (0-40) U/L Alkaline Phosphatase 137 H (39-117) U/L Total Creatine Kinase 63 (38-174) U/L Troponin I High Sens 3.9 (<3.5-35.0) ng/L Total Protein 7.6 (6.5-8.0) g/dL Albumin 4.0 (3.5-5.0) g/dL Urine Color Yellow Urine Appearance Clear Urine pH 6.5 (5.0-9.0) Ur Specific [place] 1.010 (1.005-1.025) Urine Protein 30 (1+) H (Neg-Trace) mg/dL Urine Glucose (UA) Negative (Negative) mg/dL Urine Ketones Negative (Negative) mg/dL Urine Blood Negative (Negative) Urine Nitrite Negative (Negative) Ur Leukocyte Esterase Negative (Negative) Urine RBC 0-2 (0-2) /HPF Urine WBC 0-5 (0-5) /HPF Ur Squamous Epith Cells 0-2 (0-2) /HPF Urine Bacteria None Seen (None Seen) Hyaline Casts 0-2 (0-2) /LPF Discharge Plan Discharge Clinical Impression: Low blood magnesium Patient Disposition: Home, Self-Care Instructions: Hypomagnesemia (ED) Additional Instructions: Your magnesium was low in the emergency department we repleted this and it improved. You had an episode of vomiting and diarrhea earlier in the day but this resolved you did not have any subsequent episodes or any other indications for hospital admission. We kept here overnight to make sure you had a cool place to rest. Below is listed information of local cooling centers over the next few days with the heat. [facility] Due to high heat and humidity in the forecast, the [facility] has announced the opening of cooling centers Saturday through Saturday, February 08-, during regular business hours at the [facility] at [address], the [facility] [employer] ([facility]) at [address] [place] [address], the [facility] [employer] at [address] [place] [address], and the [facility] at [address] [place] [address]. [facility] urges residents to avoid excessive outdoor activity, to exercise caution with the elderly, children, and individuals with chronic illnesses, and to stay hydrated by drinking water. Prescriptions: No Action torsemide 20 mg tablet 20 mg PO Q OTHER DAY 90 Days Qty: 45 3RF magnesium oxide 400 mg (241.3 mg magnesium) tablet 400 mg PO DAILY Qty: 10 0RF rosuvastatin 5 mg Tablet 5 mg PO BEDTIME folic acid 1 mg tablet 1 mg PO DAILY Qty: 30 0RF acetaminophen 325 mg Tablet 650 mg PO Q4H PRN (Reason: Pain (Scale Score 4-6)) metoprolol succinate 25 mg Tablet Extended Release 24 Hr 25 mg PO DAILY amoxicillin-pot clavulanate 875-125 mg tablet 1 tab PO BID Qty: 14 0RF doxycycline monohydrate 100 mg capsule 100 mg PO BID Qty: 14 0RF thiamine HCl (vitamin B1) [Vitamin B-1] 100 mg Tablet 100 mg PO DAILY pyridoxine (vitamin B6) [Vitamin B-6] 50 mg Tablet 50 mg PO DAILY calcium carbonate-vitamin D3 [Oyster Shell Calcium-Vit D3] 250 mg-3.125 mcg (125 unit) tablet 1 tab PO TID cholecalciferol (vitamin D3) [Vitamin D3] 50 mcg (2,000 unit) Tablet 50 mcg PO DAILY jhbhvprs-dwb-sdth fum-folic ac 7.5 mg iron-400 mcg tablet 1 tab PO DAILY ferrous sulfate 325 mg (65 mg iron) Tablet,Delayed Release (Dr/Ec) 325 mg PO DAILY allopurinol 300 mg tablet 300 mg PO DAILY ascorbate calcium (vitamin C) 500 mg tablet 500 mg PO BID Interventions: ED Discharge Assessment Last Done: 02/08/25 21:03 Discharge Date/Time: 02/08/25 21:04 Print Language: Paraguayan
--- NOTE | 2025-02-08 13:27 | ECG_ITS ---
Test Reason : dizziness Blood Pressure : */* mmHG Vent. Rate : 96 BPM Atrial Rate : * BPM P-R Int : * ms QRS Dur : 118 ms QT Int : 428 ms P-R-T Axes : * -45 34 degrees QTcB Int : 541 ms Normal sinus rhythm Left anterior fascicular block Minimal voltage criteria for LVH, may be normal variant ( Leonel product ) T wave abnormality, consider anterolateral ischemia Prolonged QT Abnormal ECG When compared with ECG of 22-Jan-2025 17:07, Nonspecific T wave abnormality has replaced inverted T waves in Inferior leads QT has lengthened Referred By: Olivia Barron Electronically Signed By: CARRILLO MAHARAJ
[2025-02-08 14:03] LABS: MANUAL DIFF FLAG NO
[2025-02-08 14:11] LABS: Basophils Absolute Auto 0.1 X10*3/uL (0.0-0.2); Basophils Percent Auto 0.8 % (0-2); Eosinophils Absolute Auto 0.1 X10*3/uL (0.0-0.4); Eosinophils Percent Auto 0.8 % (0-4); Hematocrit 30.6 % (42.0-52.0); Hemoglobin 10.1 g/dl (14.0-18.0); Imm Gran Abs Auto 0.03 X10*3/uL (0.00-0.03); Imm Gran Pct Auto 0.5 % (0.0-0.4); Lymphocytes Absolute Auto 1.3 X10*3/uL (1.2-4.9); Lymphocytes Percent Auto 19.5 % (20-40); Mean Corpuscular Hemoglobin 28.8 pg (27.0-33.0); Mean Corpuscular Volume 87.2 fL (80.0-98.0); Monocytes Absolute Auto 0.4 X10*3/uL (0.1-1.2); Monocytes Percent Auto 6.1 % (2-11); Neutrophils Absolute Auto 4.6 x10*3/uL (2.0-8.3); Neutrophils Percent Auto 72.3 % (45-73); Red Blood Count 3.51 X10*6/uL (4.60-5.80); Red Cell Distribution Width 16.8 % (11.0-16.0); White Blood Count 6.4 X10*3/uL (4.8-10.8)
[2025-02-08 14:26] LABS: Alanine Aminotransferase 13 U/L (0-40); Alkaline Phosphatase 137 U/L (39-117); Anion Gap 19 (12-20); Aspartate Amino Transferase 57 U/L (5-37); Bilirubin Direct 0.9 mg/dL (0.0-0.5); Bilirubin Total 2.1 mg/dL (0.0-1.0); Blood Urea Nitrogen 9 mg/dL (9-16); Calcium 8.9 mg/dL (8.4-10.2); Carbon Dioxide 20 mmol/L (22-29); Chloride 107 mmol/L (96-108); Creatinine Clr Calc Pharmacy 80.8; Estimated Glomerular Filt Rate > 60; Glucose Random 88 mg/dL (60-115); Potassium 3.6 mmol/L (3.3-5.1); Sodium 142 mmol/L (135-145); Total Protein 7.6 g/dL (6.5-8.0)
[2025-02-08 14:27] LABS: Troponin-I High Sensitivity 3.9 ng/L (<3.5-35.0)
[2025-02-08 14:33] LABS: Mean Platelet Volume 8.1 fL (9.4-12.4); Platelet Count 63 X10*3/uL (160-400)
[2025-02-08] MEDS: Magnesium Sulfate/H2O 2 GM/50 ML PIGGYBACK IV ×2 (15:17→16:18)
--- OUTSIDE RECORDS SUMMARY | 2025-02-08 15:32 | XMS_ITS | Clinical Summary ---
Author Organization [facility] Address [address] [place] [address] Phone Care Team Providers Care Utility Inspector Name Role Phone Samantha Gonzales MD Primary Care Provider [phone] Allergies Active Allergy Reactions Criticality Noted Date [...] mg x 2 during 1st hospitalization in [facility] in Sep 2022 -Continue follow-up with suppression crew leader Other dietary vitamin B12 deficiency anemia 09/20 [...] -following with [facility] suppression crew leader Aneurysm of ascending aorta 05/29/2016 Overview (11/07/2022): Last Assessment & Plan: -Most recent echo on 04/12/21, EF 60-65%, dilated ascending aorta 41mm -Echo on 04/05/20, EF 55-60%, dilated ascending aorta 42 mm, -Echo on 04/01/19 EF 60-65%, Aortic root dimension 37~43mm -Seen by his printed circuit board panels trimmer, Dr. Claudio on n 07/11/22 -Pt advised [...] complete this topic Insurance Medicaid [place] Medicaid [place] Care Teams Utility Inspector Relationship Specialty Start Date End Date Samantha Gonzales MD PCP - General 08/29/20
[2025-02-08 16:15] VITALS: BP 146/87; PULSE 90; RESP 18; TEMP 36.8; O2SAT 98
[2025-02-08] MEDS: Magnesium Oxide 400 MG TABLET 800 MG PO (16:18)
[2025-02-08 18:12] VITALS: BP 150/83; PULSE 90; RESP 18; TEMP 37.2; O2SAT 97
--- NOTE | 2025-02-08 19:45 | PC.NURSE ---
Patient is alert and oriented x4, VSS. Patient denies any pain/dizziness/nausea at present. Call piña within patient's reach.Plan for repeat VBD for Mg level.
[2025-02-08 19:55] VITALS: BP 165/90; PULSE 82; RESP 18; TEMP 37.1; O2SAT 100
[2025-02-08 19:59] LABS: Appearance Urine Clear; Color Urine Yellow; Glucose Urine UA Negative (Negative); Leukocyte Esterase Urine Negative (Negative); Nitrite Urine Negative (Negative); PH 6.5 (5.0-9.0); UMIC TRIGGER UACC YES; Urine Blood Negative (Negative); Urine Ketones Negative (Negative); Urine Protein 30 (1+) mg/dL (Neg-Trace)
[2025-02-08 20:08] LABS: Bacteria Urine None Seen (None Seen); Hyaline Casts Urine 0-2 /LPF (0-2); RBC Urine 0-2 /HPF (0-2); Squamous Epithelial Cell Urine 0-2 /HPF (0-2); WBC Urine 0-5 /HPF (0-5)
[2025-02-08 21:03] VITALS: BP 153/89; PULSE 89; RESP 16; TEMP 36.8; O2SAT 99
== END 2025-02-08 21:04 | disposition home or self-care (01) ==
PROVIDERS: Physician Assistant Medical; Emergency Provider Emergency Medicine; PCP Family Medicine
DX: E83.42 Hypomagnesemia (principal); R42 Dizziness and giddiness; R11.10 Vomiting, unspecified; R94.31 Abnormal electrocardiogram [ECG] [EKG]; Z79.899 Other long term (current) drug therapy
CPT/HCPCS: 36415; 71046; 80048; 80076; 81001; 81003; 82550; 83735; 84484; 85025; 93005; 96365; 96366; 99285; J3475

== ENCOUNTER → 2025-02-08 13:26 | Outpatient (BNV) | payer MEDICAID, SELFPAY | PROVIDERS: PCP Family Medicine; Visit Provider Radiology Diagnostic Radiology | DX: R06.02 Shortness of breath (principal) | CPT/HCPCS: 71046 ==

== ENCOUNTER → 2025-02-08 13:27 | Outpatient (BNV) | payer MEDICAID, SELFPAY | PROVIDERS: Emergency Provider Emergency Medicine; PCP Family Medicine; Visit Provider Internal Medicine | DX: I44.4 Left anterior fascicular block (principal) | CPT/HCPCS: 93010 ==

== ENCOUNTER 2025-03-13 08:47 | Emergency (ER) | payer MEDICAID, SELFPAY ==
--- NOTE | ~2025-03-13 | CT_ITS ---
CLINICAL HISTORY: AP vomiting diarrhea CT abdomen and pelvis without contrast Comparison: CT/SR - CT ABDOMEN PELVIS W IV CON - 08/17/24 19:36 EST Findings: The lung bases are clear. Spleen, adrenal glands, gallbladder and pancreas are unremarkable. No intrahepatic biliary ductal dilatation. Liver is enlarged. Previously seen fatty infiltration of the liver not as well demonstrated on today's study. Right kidney demonstrates mild fullness of the renal pelvis. Left kidney demonstrates residua from previous left nephrectomy. There is stranding and thickening in the region of the surgical bed, similar to prior as well as some high density material adjacent to the lower pole of the left kidney. No hydronephrosis of either kidney. No renal or ureteral stones. There is stranding again seen near the duodenum as well as mistiness within the central mesentery, similar to prior. No wall thickening of the duodenum. Small duodenal diverticulum again noted. Small bowel loops are normal caliber. There are scattered colonic diverticula, however no evidence of diverticulitis. Question artifact versus wall thickening of the distal sigmoid colon and rectum, series 7, image 63. Mildly prominent inguinal lymph nodes. No retroperitoneal lymphadenopathy. Urinary bladder is unremarkable. Prostate gland is normal. The bones are intact. No lytic or blastic bone lesion. IMPRESSION: 1. Question artifact versus wall thickening suggesting infectious or inflammatory colitis of the distal sigmoid colon and rectum. 2. Persistent stranding near the duodenum and mistiness in the mesentery, unchanged from prior, and likely chronic findings. 3. Previous partial left nephrectomy. 4. Hepatomegaly. This document has been electronically signed by: Eddy Recinos MD on 03/13/2025 11:06:04
[2025-03-13 08:52] VITALS: BP 198/90; PULSE 100; O2SAT 96; BMI 33.4
--- NOTE | 2025-03-13 09:03 | ED.ABDPAIN ---
HPI - Abdominal Pain General Chief Complaint: Abdominal Pain Stated Complaint: ABD PAIN,N/V/D PER EMS Time Seen by Provider: 03/13/25 08:50 Source: patient Mode of arrival: ambulatory Limitations: no limitations History of Present Illness ED Provider: Mary Weaver APRN HPI narrative: 64 yo with PMH of alcohol use disorder, chronic leg edema/wounds followed by VNA, CKD, HTN, anemia here with complaints of abdominal pain, vomiting, diarrhea which began last night. Patient reports after eating a sandwich and drinking 2 vodka/iced teas he developed generalized abdominal cramping then subsequent multiple episodes of diarrhea/vomiting throughout the night. Denies black or bloody stools. NBNB emesis. No fevers, chills. Unable to tolerate PO. Drinks daily several vodka/iced teas.' Last drink last evening. Feels he may be withdrawing. Denies smoking, substance use. Related Data Home Medications ?Medication ?Instructions ?Recorded ?Confirmed rosuvastatin 5 mg tablet 5 mg PO BEDTIME 08/26/23 01/22/25 allopurinol 300 mg tablet 300 mg PO DAILY 07/29/24 01/22/25 ascorbate calcium (vitamin C) 500 500 mg PO BID 07/29/24 01/22/25 mg tablet calcium 250 mg (as 1 tab PO TID 10/16/24 01/22/25 carbonate)-vitamin D3 3.125 mcg (125 unit) tablet (Oyster Shell Calcium-Vitamin D3) cholecalciferol (vitamin D3) 50 50 mcg PO DAILY 10/16/24 01/22/25 mcg (2,000 unit) tablet (Vitamin D3) ferrous sulfate 325 mg (65 mg 325 mg PO DAILY 10/16/24 01/22/25 iron) tablet,delayed release zdxvewinbnqj-razilgky-tgfy 1 tab PO DAILY 10/16/24 01/22/25 fumarate 7.5 mg-folic acid 400 mcg tablet pyridoxine (vitamin B6) 50 mg 50 mg PO DAILY 10/16/24 01/22/25 tablet (Vitamin B-6) thiamine HCl (vitamin B1) 100 mg 100 mg PO DAILY 10/16/24 01/22/25 tablet (Vitamin B-1) acetaminophen 325 mg tablet 650 mg PO Q4H PRN Pain (Scale 01/22/25 01/22/25 Score 4-6) metoprolol succinate 25 mg 25 mg PO DAILY 01/22/25 01/22/25 tablet,extended release 24 hr Previous Rx's ?Medication ?Instructions ?Recorded magnesium oxide 400 mg (241.3 mg 400 mg PO DAILY #10 tabs 04/25/23 magnesium) tablet folic acid 1 mg tablet 1 mg PO DAILY #30 tabs 10/01/23 amoxicillin 875 mg-potassium 1 tab PO BID #14 tabs 01/24/25 clavulanate 125 mg tablet doxycycline monohydrate 100 mg 100 mg PO BID #14 caps 01/24/25 capsule torsemide 20 mg tablet 20 mg PO Q OTHER DAY 90 days #45 02/05/25 tabs Allergies Allergy/AdvReac Type Severity Reaction Status Date / Time azithromycin (AZITHROMYCIN) Allergy Severe FACIAL Verified 03/13/25 08:56 SWELLING hydrochlorothiazide (HCTZ) Allergy Severe Facial Verified 03/13/25 08:56 Swelling Review of Systems Review of Systems Yes all other systems are reviewed and are negative Constitutional: Reports no additional constitutional complaints, Denies body ache(s), Denies chills, Denies fever(s), Denies headache(s) and Denies weakness Eyes: Reports no additional eye complaints and Denies change in vision Reports system reviewed and no additional complaints, except as documented, Denies dizziness, Denies headache(s), Denies nasal congestion, Denies nasal discharge and Denies neck pain Cardiovascular: Reports no additional cardiovascular complaints, Denies chest pain, Denies leg edema and Denies dyspnea Respiratory: Reports no additional respiratory complaints, Denies cough and Denies dyspnea Gastrointestinal: Reports no additional gastrointestinal complaints, Reports abdominal pain, Reports diarrhea, Reports nausea and Reports vomiting Genitourinary: Denies urinary incontinence Musculoskeletal: Reports no additional musculoskeletal complaints, Denies back pain, Denies arthralgias, Denies joint swelling, Denies neck pain, Denies numbness and Denies tingling Skin/Breast: Reports system reviewed and no additional complaints, except as docu and Denies rash Reports system reviewed and no additional complaints, except as documented, Denies Abnormal speech present, Denies dizziness, Denies headache(s), Denies numbness, Denies tingling and Denies weakness PMF Past Medical History Attestation statement: The following information was validated with the patient. Source: old records reviewed and nursing notes reviewed Medical History Abdominal wall abscess at site of surgical wound CKD stage 3a, GFR 45-59 ml/min Colitis Renal mass Renal cell carcinoma Alcohol use disorder Hyperlipidemia Ascending aortic aneurysm Alcoholic steatohepatitis Seborrheic dermatitis DEBORAH (obstructive sleep apnea) History of rhabdomyolysis Hx of lower gastrointestinal bleeding Hx of sepsis History of DVT of lower extremity Chronic ulcer of leg Chronic venous stasis HTN (hypertension) Anemia Anemia Surgical History H/O partial nephrectomy Hx of colonoscopy Family History Family History Mother Dementia Maternal Grandmother Dementia Social History Social History Household Members: Family Household Members Other:: mother who has dementia Housing: House Housing Other:: 4 stairs to get into house. Pt lives in basement Do you presently have visiting nurse or other home services: Yes Alcohol intake: current Alcohol intake frequency: 0-2 drinks per day Alcohol type: hard liquor Comment: pt refused socks Patient Tobacco Use Status: Never used Tobacco Smoked in Last 30 Days: No Use of substances other than those prescribed or required for medical reasons: No Advance Directives: Yes Advance Directives on File: Yes Advance Directives Date on File: 04/13/22 service: No Current occupational status: disabled Physical Exam ED Vital Signs: Vital Signs - 24 hr 03/13/25 09:07 03/13/25 10:57 03/13/25 12:00 Temperature 98.4 F 99.0 F 98.8 F Pulse Rate 97 100 101 H Respiratory Rate 16 15 14 Blood Pressure 169/96 H 152/88 H 153/88 H Pulse Oximetry 100 98 97 Oxygen Delivery Method Room Air Room Air Room Air 03/13/25 12:13 03/13/25 12:43 Temperature 98.8 F Pulse Rate 100 100 Respiratory Rate 18 Blood Pressure 153/85 H 153/85 H Pulse Oximetry 99 Oxygen Delivery Method Room Air BMI result Body Mass Index 33.4 Const General: cooperative, healthy appearing, comfortable and no acute distress Orientation/consciousness: patient oriented x3 Limitations: no limitations HENMT Head: Yes normal to inspection Ears: hearing grossly normal bilaterally General nose exam: Normal external nose present Face and sinus: Yes normal facial exam Mouth: Normal oral and palatal mucosa present Throat: Yes posterior oropharynx normal Eyes General: appearance normal, both eyes and all related structures Pupils: Equal, round and reactive pupils present Neck Neck: Yes normal visual inspection Chest Chest palpation & inspection: normal inspection of the chest Resp Effort & Inspection: normal respiratory effort Auscultation: clear to auscultation bilaterally Cardio Rate: regular rate Rhythm: regular rhythm Peripheral pulses: Peripheral pulses 2+ throughout GI Inspection: Yes normal to inspection Palpation (GI): Soft to palpation and Tenderness to palpation present (GI) (mild diffuse tenderness-no rebound or guarding ) Auscultation: normal bowel sounds Back/Spine/Pelvis Thoracic/Lumbar Spine: thoracic and lumbar spine normal to inspection Skin General skin exam: no rashes or lesions noted Neuro Other: mild hand tremor General: patient oriented x3, no focal motor deficits and normal sensation to monofilament Cranial nerves: Yes Equal, round and reactive pupils present Cognition (Neuro): normal cognition Speech: No Abnormal speech present Gait exam (Neuro): Normal gait present Motor exam (neuro): 5/5 motor strength present throughout Extrem Other: wrapped legs bilaterally Course Course Course Narrative: 1014-Elevated lactic acid from dehydration not from infection. Receiving fluids. Elevated LFTS which is chronic and from liver disease/alcohol use disorder and not from infection. Reevaluation(s) Reevaluation #1: 1100-CT shows infectious versus inflammatory colitis. Reports history of colitis which resolved without antibiotics. More likely inflammatory. Doubt infectious in the setting of no fever, no leukocytosis. Labs show hypomagnesemia. Patient received her placement. Otherwise his labs are as noted from above. Not interested in detox resources. Will attempt PO trial. Reevaluation #2: 1200-CIWA now 4. VSS. Tolerating claudio minerva. Reviewed findings of labs. Plan for discharge home with supportive measures. Reviewed worrisome signs and symptoms of when to return to the emergency room. Comfortable plan for discharge home Medical Decision Making Medical Decision Making [facility] Narrative: 64 yo with PMH of alcohol use disorder, chronic leg edema/wounds followed by VNA, CKD, HTN, anemia here with complaints of abdominal pain, vomiting, diarrhea which began last night. Patient reports after eating a sandwich and drinking 2 vodka/iced teas he developed generalized abdominal cramping then subsequent multiple episodes of diarrhea/vomiting throughout the night. Denies black or bloody stools. NBNB emesis. No fevers, chills. Unable to tolerate PO. Drinks daily several vodka/iced teas.' Last drink last evening. Feels he may be withdrawing. Denies smoking, substance use. On exam patient has a mild diffuse abdominal tenderness with no rebound or guarding. He has positive bowel sounds. His abdomen is nondistended. He has a mild tremor of the hands noted. Will obtain a labs, UA, viral testing, CT. Patient may have some mild withdrawal symptoms from alcohol use disorder and has been seen here for same. I will have nursing obtain a CIWA score on him. I will give him thiamine, folic, IV fluids and initiate phenobabital protocol. Differential Diagnosis Differential Diagnoses: The differential diagnosis associated with the presentation includes infectious diarrhea, gastroenteritis, diverticulitis, appendicitis low suspicion for ischemic colitis, GI bleed alcohol withdrawal Admission/Observation Consideration of admission/observation: Escalation of care including admission/observation considered CIWA improving with treatment, VSS, does not want detox resources-no need for admission Colitis-pain controlled, tolerating PO, no need for admission Lab Data MDM Lab Attestation statement: I reviewed the patient's lab results. 03/13/25 09:36 03/13/25 09:36 Labs: Lab Results 03/13/25 03/13/25 03/13/25 Range/Units 09:36 10:05 11:00 WBC 5.3 (4.8-10.8) X10*3/uL RBC 3.58 L (4.60-5.80) X10*6/uL Hgb 10.7 L (14.0-18.0) g/dl Hct 32.3 L (42.0-52.0) % MCV 90.2 (80.0-98.0) fL MCH 29.9 (27.0-33.0) pg MCHC 33.1 (31.0-36.0) g/dl RDW 17.7 H (11.0-16.0) % Plt Count 73 L (160-400) X10*3/uL MPV 8.4 L (9.4-12.4) fL Immature Gran % (Auto) 0.2 (0.0-0.4) % Neut % (Auto) 65.6 (45-73) % Lymph % (Auto) 23.4 (20-40) % [place] % (Auto) 7.8 (2-11) % Eos % (Auto) 1.9 (0-4) % Baso % (Auto) 1.1 (0-2) % Lymph # (Auto) 1.2 (1.2-4.9) X10*3/uL [place] # (Auto) 0.4 (0.1-1.2) X10*3/uL Eos # (Auto) 0.1 (0.0-0.4) X10*3/uL Baso # (Auto) 0.1 (0.0-0.2) X10*3/uL Abs Immat Gran (auto) 0.01 (0.00-0.03) X10*3/uL Absolute Neuts (auto) 3.5 (2.0-8.3) x10*3/uL Absolute Nucleated RBC 0.000 (0.0-0.012) X10*3/uL Nucleated RBC % (auto) 0.0 (0.0-0.2) /100WBC Sodium 144 (135-145) mmol/L Potassium 4.3 (3.3-5.1) mmol/L Chloride 106 (96-108) mmol/L Carbon Dioxide 24 (22-29) mmol/L Anion Gap 18 (12-20) BUN 15 (9-16) mg/dL Creatinine 1.11 (0.5-1.4) mg/dL Estim Creat Clear Calc 75.5 Estimated GFR > 60 POC Glucose 84 (60-115) mg/dL Random Glucose 99 (60-115) mg/dL Lactic Acid 2.1 H* (0.5-2.0) mmol/L Lactic Acid F/U @ 2Hr (0.5-2.0) mmol/L Calcium 9.2 (8.4-10.2) mg/dL Magnesium 1.4 L* (1.6-2.6) mg/dL Total Bilirubin 1.6 H (0.0-1.0) mg/dL Direct Bilirubin 0.8 H (0.0-0.5) mg/dL AST 62 H (5-37) U/L ALT 34 (0-40) U/L Alkaline Phosphatase 144 H (39-117) U/L Total Protein 8.2 H (6.5-8.0) g/dL Albumin 4.3 (3.5-5.0) g/dL Urine Color Yellow Urine Appearance Clear Urine pH 6.5 (5.0-9.0) Ur Specific [place] 1.010 (1.005-1.025) Urine Protein Trace (Neg-Trace) mg/dL Urine Glucose (UA) Negative (Negative) mg/dL Urine Ketones Negative (Negative) mg/dL Urine Blood Negative (Negative) Urine Nitrite Negative (Negative) Ur Leukocyte Esterase Negative (Negative) Urine Opiates Screen Not Detected (Not Detect) Ur Buprenorphine Scrn Not Detected (Not Detect) ng/mL Ur Oxycodone Screen Not Detected (Not Detect) ng/mL Urine Methadone Screen Not Detected (Not Detect) ng/mL Urine Fentanyl Screen Not Detected (Not Detect) Ur Barbiturates Screen Not Detected (Not Detect) Ur Phencyclidine Scrn Not Detected (Not Detect) Ur Amphetamines Screen Not Detected (Not Detect) U Benzodiazepines Scrn Not Detected (Not Detect) Urine Cocaine Screen Not Detected (Not Detect) U Marijuana (THC) Screen Not Detected (Not Detect) Ethyl Alcohol < 10 mg/dL Influenza Type A (PCR) NEGATIVE (Negative) Influenza Type B (PCR) NEGATIVE (Negative) RSV RNA Qual (PCR) NEGATIVE (Negative) SARS-CoV-2 RNA (RT-PCR) NEGATIVE (Negative) 03/13/25 Range/Units 12:02 WBC (4.8-10.8) X10*3/uL RBC (4.60-5.80) X10*6/uL Hgb (14.0-18.0) g/dl Hct (42.0-52.0) % MCV (80.0-98.0) fL MCH (27.0-33.0) pg MCHC (31.0-36.0) g/dl RDW (11.0-16.0) % Plt Count (160-400) X10*3/uL MPV (9.4-12.4) fL Immature Gran % (Auto) (0.0-0.4) % Neut % (Auto) (45-73) % Lymph % (Auto) (20-40) % [place] % (Auto) (2-11) % Eos % (Auto) (0-4) % Baso % (Auto) (0-2) % Lymph # (Auto) (1.2-4.9) X10*3/uL [place] # (Auto) (0.1-1.2) X10*3/uL Eos # (Auto) (0.0-0.4) X10*3/uL Baso # (Auto) (0.0-0.2) X10*3/uL Abs Immat Gran (auto) (0.00-0.03) X10*3/uL Absolute Neuts (auto) (2.0-8.3) x10*3/uL Absolute Nucleated RBC (0.0-0.012) X10*3/uL Nucleated RBC % (auto) (0.0-0.2) /100WBC Sodium (135-145) mmol/L Potassium (3.3-5.1) mmol/L Chloride (96-108) mmol/L Carbon Dioxide (22-29) mmol/L Anion Gap (12-20) BUN (9-16) mg/dL Creatinine (0.5-1.4) mg/dL Estim Creat Clear Calc Estimated GFR POC Glucose (60-115) mg/dL Random Glucose (60-115) mg/dL Lactic Acid (0.5-2.0) mmol/L Lactic Acid F/U @ 2Hr 1.8 (0.5-2.0) mmol/L Calcium (8.4-10.2) mg/dL Magnesium (1.6-2.6) mg/dL Total Bilirubin (0.0-1.0) mg/dL Direct Bilirubin (0.0-0.5) mg/dL AST (5-37) U/L ALT (0-40) U/L Alkaline Phosphatase (39-117) U/L Total Protein (6.5-8.0) g/dL Albumin (3.5-5.0) g/dL Urine Color Urine Appearance Urine pH (5.0-9.0) Ur Specific [place] (1.005-1.025) Urine Protein (Neg-Trace) mg/dL Urine Glucose (UA) (Negative) mg/dL Urine Ketones (Negative) mg/dL Urine Blood (Negative) Urine Nitrite (Negative) Ur Leukocyte Esterase (Negative) Urine Opiates Screen (Not Detect) Ur Buprenorphine Scrn (Not Detect) ng/mL Ur Oxycodone Screen (Not Detect) ng/mL Urine Methadone Screen (Not Detect) ng/mL Urine Fentanyl Screen (Not Detect) Ur Barbiturates Screen (Not Detect) Ur Phencyclidine Scrn (Not Detect) Ur Amphetamines Screen (Not Detect) U Benzodiazepines Scrn (Not Detect) Urine Cocaine Screen (Not Detect) U Marijuana (THC) Screen (Not Detect) Ethyl Alcohol mg/dL Influenza Type A (PCR) (Negative) Influenza Type B (PCR) (Negative) RSV RNA Qual (PCR) (Negative) SARS-CoV-2 RNA (RT-PCR) (Negative) Independent Interpretation I performed an independent interpretation of an: EKG and CT Scan Interpretation: I independently reviewed the EKG which shows sinus rhythm with a first-degree AV block I independently reviewed the CT scan agree with the radiology report Radiology Impression Discussion of test interpretation with radiology: I have reviewed the radiologist's reading. Radiologist Impression: [place] [address] CT Scan Report Signed Patient: Mohan Gonzalez MR#: [id number] : 1960 Acct:[id number] Age/Sex: 64 / M ADM Date: 03/13/25 Loc: .ED Attending Dr: Ordering Physician: Mary Weaver NP Date of Service: 03/13/25 Procedure(s): CT abdomen pelvis wo IV con Accession Number(s): [id number] cc: Mary Weaver NP; Physician,Unknown ~ Report Number: [id number]: Total DLP = 693.00 mGy-cm CLINICAL HISTORY: AP vomiting diarrhea CT abdomen and pelvis without contrast Comparison: CT/SR - CT ABDOMEN PELVIS W IV CON - 08/17/24 19:36 EST Findings: The lung bases are clear. Spleen, adrenal glands, gallbladder and pancreas are unremarkable. No intrahepatic biliary ductal dilatation. Liver is enlarged. Previously seen fatty infiltration of the liver not as well demonstrated on today's study. Right kidney demonstrates mild fullness of the renal pelvis. Left kidney demonstrates residua from previous left nephrectomy. There is stranding and thickening in the region of the surgical bed, similar to prior as well as some high density material adjacent to the lower pole of the left kidney. No hydronephrosis of either kidney. No renal or ureteral stones. There is stranding again seen near the duodenum as well as mistiness within the central mesentery, similar to prior. No wall thickening of the duodenum. Small duodenal diverticulum again noted. Small bowel loops are normal caliber. There are scattered colonic diverticula, however no evidence of diverticulitis. Question artifact versus wall thickening of the distal sigmoid colon and rectum, series 7, image 63. Mildly prominent inguinal lymph nodes. No retroperitoneal lymphadenopathy. Urinary bladder is unremarkable. Prostate gland is normal. The bones are intact. No lytic or blastic bone lesion. IMPRESSION: 1. Question artifact versus wall thickening suggesting infectious or inflammatory colitis of the distal sigmoid colon and rectum. 2. Persistent stranding near the duodenum and mistiness in the mesentery, unchanged from prior, and likely chronic findings. 3. Previous partial left nephrectomy. 4. Hepatomegaly. Independent Historian Clinical information obtained from an independent historian. History obtained from or confirmed by: EMS Social Determinants Patient?s care significantly limited by Social Determinants of Health including: Alcoholism and drug addiction in family Medications Administered Discontinued Medications Generic Name Dose Route Start Last Admin Trade Name Freq PRN Reason Stop Dose Admin Folic Acid 1 mg 03/13/25 09:23 03/13/25 09:43 Folic Acid 1 Mg Tablet PO 03/13/25 09:24 1 mg ONCE ONE Administration Sodium Chloride 1,000 mls @ 999 mls/hr 03/13/25 09:22 03/13/25 12:14 Ns IV 03/13/25 10:22 Infused .Q1H1M STA Infusion Thiamine HCl 100 mg/ Sodium 101 mls @ 202 mls/hr 03/13/25 09:23 03/13/25 10:38 Chloride IV 03/13/25 09:52 Infused ONCE ONE Infusion Magnesium Sulfate 2 gm in 50 mls @ 25 mls/hr 03/13/25 10:02 03/13/25 12:25 Magnesium Sulfate/H2o IV 03/13/25 12:01 Infused ONCE ONE Infusion Ondansetron HCl 4 mg 03/13/25 09:22 03/13/25 09:43 Ondansetron Hcl 4 Mg/2 Ml Vial IVPUSH 03/13/25 09:23 4 mg ONCE ONE Administration Phenobarbital Sodium 265 mg 03/13/25 10:00 03/13/25 10:01 Phenobarbital Sodium 130 Mg/Ml Im Once IM 03/13/25 10:01 265 mg ONCE ONE Administration Protocol Discharge Plan Discharge Clinical Impression: Colitis, Alcohol use disorder Patient Disposition: Home, Self-Care Instructions: Colitis (ED), Alcohol Use Disorder (ED) Additional Instructions: You have signs of colitis on your CT scan. You have had this in the past. It is likely viral. You do not need antibiotics. Please make sure that you are drinking plenty of fluids and staying hydrated. Your labs did show that you had mild dehydration including a abnormal magnesium level. You received IV fluids, magnesium, thiamine and folic acid while you are here in the emergency room. You also had signs of alcohol withdrawal and received a dose of phenobarbital while you are here. We did offer you resources for alcohol but you declined these. You are always welcome to follow-up with the [facility] for further options. Prescriptions: No Action torsemide 20 mg tablet 20 mg PO Q OTHER DAY 90 Days Qty: 45 3RF magnesium oxide 400 mg (241.3 mg magnesium) tablet 400 mg PO DAILY Qty: 10 0RF rosuvastatin 5 mg Tablet 5 mg PO BEDTIME folic acid 1 mg tablet 1 mg PO DAILY Qty: 30 0RF acetaminophen 325 mg Tablet 650 mg PO Q4H PRN (Reason: Pain (Scale Score 4-6)) metoprolol succinate 25 mg Tablet Extended Release 24 Hr 25 mg PO DAILY amoxicillin-pot clavulanate 875-125 mg tablet 1 tab PO BID Qty: 14 0RF doxycycline monohydrate 100 mg capsule 100 mg PO BID Qty: 14 0RF thiamine HCl (vitamin B1) [Vitamin B-1] 100 mg Tablet 100 mg PO DAILY pyridoxine (vitamin B6) [Vitamin B-6] 50 mg Tablet 50 mg PO DAILY calcium carbonate-vitamin D3 [Oyster Shell Calcium-Vit D3] 250 mg-3.125 mcg (125 unit) tablet 1 tab PO TID cholecalciferol (vitamin D3) [Vitamin D3] 50 mcg (2,000 unit) Tablet 50 mcg PO DAILY [id number] fum-folic ac 7.5 mg iron-400 mcg tablet 1 tab PO DAILY ferrous sulfate 325 mg (65 mg iron) Tablet,Delayed Release (Dr/Ec) 325 mg PO DAILY allopurinol 300 mg tablet 300 mg PO DAILY ascorbate calcium (vitamin C) 500 mg tablet 500 mg PO BID Referrals: [facility] [Provider Group] Physician,Erik J [Primary Care Provider, Medical] - 1 week Referral Note: ER visit follow-up Interventions: ED Discharge Assessment Last Done: 03/13/25 12:43 Discharge Date/Time: 03/13/25 13:08 Print Language: Upper Sorbian
[2025-03-13 09:07] VITALS: BP 169/96; PULSE 97; RESP 16; TEMP 36.9; O2SAT 100
--- NOTE | 2025-03-13 09:13 | PC.NURSE ---
Pt BIBA from home for reports of N/V/D and 6/10 abdominal pain since approx 2200 last night.Pt reports hx of colitis, prev seen by GI. A/O x 3, stand pivot to stretcher without difficulty. Pt noted to be incontinent of stool.Wound dressings noted to be soiled to BLE, dressings removed. Pt states he is seen by wound clinic. VSS.
--- NOTE | 2025-03-13 09:22 | ECG_ITS ---
Test Reason : abd pain Blood Pressure : */* mmHG Vent. Rate : 93 BPM Atrial Rate : 93 BPM P-R Int : 212 ms QRS Dur : 116 ms QT Int : 430 ms P-R-T Axes : 37 -42 152 degrees QTcB Int : 534 ms Sinus rhythm with 1st degree A-V block Left axis deviation Left ventricular hypertrophy with QRS widening and repolarization abnormality ( R in aVL , Leonel product ) Prolonged QT Abnormal ECG When compared with ECG of 08-Feb-2025 13:45, T wave inversion more evident in Lateral leads Referred By: Mary Weaver Electronically Signed By: Mike Nguyen
[2025-03-13 09:43] LABS: MANUAL DIFF FLAG NO
[2025-03-13] MEDS: Thiamine HCL 100 MG in 0.9 % Sodium Chloride 100 ML 202 MG IV (09:43)
[2025-03-13 09:45] LABS: Hematocrit 32.3 % (42.0-52.0); Hemoglobin 10.7 g/dl (14.0-18.0); Imm Gran Abs Auto 0.01 X10*3/uL (0.00-0.03); Imm Gran Pct Auto 0.2 % (0.0-0.4); Lymphocytes Absolute Auto 1.2 X10*3/uL (1.2-4.9); Mean Corpuscular HGB Conc 33.1 g/dl (31.0-36.0); Mean Corpuscular Hemoglobin 29.9 pg (27.0-33.0); Mean Corpuscular Volume 90.2 fL (80.0-98.0); NRBC Abs Auto 0.000 X10*3/uL (0.0-0.012); NRBC Pct Auto 0.0 /100WBC (0.0-0.2); Red Blood Count 3.58 X10*6/uL (4.60-5.80); White Blood Count 5.3 X10*3/uL (4.8-10.8)
[2025-03-13 09:49] LABS: Platelet Count 73 X10*3/uL (160-400)
[2025-03-13] MEDS: PHENobarbitaL sodium 130 MG/ML IM ONCE 265 MG IM (10:01)
[2025-03-13 10:04] LABS: Alanine Aminotransferase 34 U/L (0-40); Albumin Level 4.3 g/dL (3.5-5.0); Alkaline Phosphatase 144 U/L (39-117); Anion Gap 18 (12-20); Aspartate Amino Transferase 62 U/L (5-37); Blood Urea Nitrogen 15 mg/dL (9-16); Calcium 9.2 mg/dL (8.4-10.2); Carbon Dioxide 24 mmol/L (22-29); Chloride 106 mmol/L (96-108); Creatinine Clr Calc Pharmacy 75.5; Estimated Glomerular Filt Rate > 60; Magnesium 1.4 mg/dL (1.6-2.6); Potassium 4.3 mmol/L (3.3-5.1); Sodium 144 mmol/L (135-145); Total Protein 8.2 g/dL (6.5-8.0)
--- OUTSIDE RECORDS SUMMARY | 2025-03-13 10:05 | XMS_ITS | Encounter Summary ---
Author Organization [employer] Address [address] [facility] [address] [place] [address] Care Team Providers Care Wireless Operator Name Role Phone Samantha Gonzales MD Primary Care Provider [phone] Encounter Details Date Type Department Care Team (Late Contact Info) Description 01/29/2023 Orders Only [facility] [address] [place], [place] [id number] Samantha Gonzales MD [address] [place], [place] [id number] Hypomagnesemia (Primary Dx) Social History Tobacco Use [...] Department Care Team (Late Contact Info) Description 04/13/2025 10:30 AM EDT Office Visit [facility] [address] [facility] [place] [address] Samantha Gonzales MD [address] [place] [address] Scheduled Orders Name Type Priority Associated Diagnoses [...] documented as of this encounter Care Teams Wireless Operator Relationship Specialty Start Date End Date Samantha Gonzales MD [address] [place] [address] PCP - General Family Medicine 07/09/13 [facility] 05/17/24 documented as of this encounter
--- OUTSIDE RECORDS SUMMARY | 2025-03-13 10:05 | XMS_ITS | Clinical Summary ---
Author Organization [facility] Address [address] [place] [address] [place] [phone] Phone Care Team Providers Care Linen Checker Name Role Phone Vito Maki MD Primary Care Provider Social History Tobacco Use Types Packs/Day Years Used Date Smoking Tobacco: Never Assessed Education Answer Date Recorded Are you interested in more education? Not on jose e 12/15/2022 Are you concerned about learning? Not on file 12/15/2022 No 12/15/2022 No 12/15/2022 Digital Access Answer Date Recorded No 01/15/2023 No 01/15/2023 Reliable internet access at home? Not on file 01/15/2023 Device with a working camera? Not on file Sex and Gender Information Value Date Recorded Sex Assigned at Not on file Legal Sex Male 3:11 PM EDT Gender Identity Not on file Sexual Orientation Not on file Plan of Treatment Not on file Medical Devices Not on file Insurance [facility] C3 ACO C3 ACO C3 ACO C3 [place] [id number] [place] [address] C3 [address]CO [address] [place] [address] [place] [address] [place] [id number] [facility] [place] [address] [facility] C3 ACO Care Teams Linen Checker Relationship Specialty Start Date End Date Vito Maki MD [email or web address] PCP - General Family Medicine 01/29/22 Additional Source Comments The information contained in this document represents components of the legal health record. It is not the complete legal health record.[facility]
[2025-03-13 10:08] LABS: Glucose, Whole Blood 84 mg/dL (60-115)
[2025-03-13] MEDS: Magnesium Sulfate/H2O 2 GM/50 ML PIGGYBACK IV (10:22)
[2025-03-13 10:57] VITALS: BP 152/88; PULSE 100; RESP 15; TEMP 37.2; O2SAT 98
[2025-03-13 11:11] LABS: Appearance Urine Clear; Glucose Urine UA Negative (Negative); PH 6.5 (5.0-9.0); Specific Gravity - Urine 1.010 (1.005-1.025)
[2025-03-13 11:18] LABS: Resp Syncy Virus RNA Qual PCR NEGATIVE (Negative); SARS COV2 PCR INHOUSE NEGATIVE (Negative)
[2025-03-13 11:20] LABS: Cannabinoid Screen Urine Not Detected (Not Detect)
[2025-03-13 11:45] LABS: Reflex Lactate? Lactic Acid Added
[2025-03-13 12:00] VITALS: BP 153/88; PULSE 101; RESP 14; TEMP 37.1; O2SAT 97
[2025-03-13 12:13] VITALS: BP 153/85; PULSE 100
[2025-03-13 12:26] LABS: ~Lactic Acid-LAB USE ONLY 1.8 mmol/L (0.5-2.0)
[2025-03-13 12:43] VITALS: BP 153/85; PULSE 100; RESP 18; TEMP 37.1; O2SAT 99
== END 2025-03-13 13:08 | disposition home or self-care (01) ==
PROVIDERS: Nurse Practitioner Family; Emergency Provider Emergency Medicine
DX: K52.9 Noninfective gastroenteritis and colitis, unspecified (principal); F10.90 Alcohol use, unspecified, uncomplicated; Y90.9 Presence of alcohol in blood, level not specified; R10.84 Generalized abdominal pain; I12.9 Hypertensive chronic kidney disease with stage 1 through stage 4 chronic kidney disease, or unspecified chronic kidney disease; N18.31 Chronic kidney disease, stage 3a; E78.5 Hyperlipidemia, unspecified; Z03.818 Encounter for observation for suspected exposure to other biological agents ruled out
CPT/HCPCS: 36415; 74176; 80048; 80076; 80307; 81003; 82947; 83605; 83735; 85025; 87040; 87637; 93005; 96361; 96372; 96374; 96375; 99285; J2405; J2560; J3411; J3475

== ENCOUNTER → 2025-03-13 09:22 | Outpatient (BNV) | payer MEDICAID, SELFPAY | PROVIDERS: Emergency Provider Emergency Medicine; Visit Provider Radiology Diagnostic Radiology | DX: R16.0 Hepatomegaly, not elsewhere classified (principal) | CPT/HCPCS: 74176 ==

== ENCOUNTER → 2025-03-13 09:22 | Outpatient (BNV) | payer MEDICAID, SELFPAY | PROVIDERS: Emergency Provider Emergency Medicine; Visit Provider Internal Medicine Cardiovascular Disease | DX: I44.0 Atrioventricular block, first degree (principal); I51.7 Cardiomegaly | CPT/HCPCS: 93010 ==

== ENCOUNTER 2025-04-02 11:21 | Emergency (ER) | payer MEDICAID, SELFPAY ==
[2025-04-02 11:25] VITALS: BP 170/89; PULSE 108; RESP 18; TEMP 36.6; O2SAT 98; BMI 33.8
--- NOTE | 2025-04-02 11:26 | ED.GENADULT ---
HPI - General Adult General Chief complaint: Wound/Laceration Stated complaint: pt states wound is leaking Time Seen by Provider: 04/02/25 11:31 Source: patient Mode of arrival: ambulatory Limitations: no limitations History of Present Illness ED Provider: Mary Weaver APRN HPI narrative: 64 yo with PMH of alcohol use disorder, chronic leg edema/wounds followed by VNA, CKD, HTN, anemia here with complaints of leaking wound to left abdominal wall. Patient reports one year ago he had a left partial nephrectomy due to a benign tumor by Dr Sow. He had a non healing wound on the lateral aspect of the incision for months and was seen by wound care. He reports hes been sweating a lot the last few days and noticed a small blister over the lateral aspect. Today when he was walking he noticed drainage from the site. He denies pain, fever, vomiting. He has an appointment with wound care on Saturday for his leg wounds. He did call Dr Sow and has an appointment on 04/12. Related Data Home Medications ?Medication ?Instructions ?Recorded ?Confirmed rosuvastatin 5 mg tablet 5 mg PO BEDTIME 08/26/23 01/22/25 allopurinol 300 mg tablet 300 mg PO DAILY 07/29/24 01/22/25 ascorbate calcium (vitamin C) 500 500 mg PO BID 07/29/24 01/22/25 mg tablet calcium 250 mg (as 1 tab PO TID 10/16/24 01/22/25 carbonate)-vitamin D3 3.125 mcg (125 unit) tablet (Oyster Shell Calcium-Vitamin D3) cholecalciferol (vitamin D3) 50 50 mcg PO DAILY 10/16/24 01/22/25 mcg (2,000 unit) tablet (Vitamin D3) ferrous sulfate 325 mg (65 mg 325 mg PO DAILY 10/16/24 01/22/25 iron) tablet,delayed release rshftuxvmahc-yxerxtqy-hhbv 1 tab PO DAILY 10/16/24 01/22/25 fumarate 7.5 mg-folic acid 400 mcg tablet pyridoxine (vitamin B6) 50 mg 50 mg PO DAILY 10/16/24 01/22/25 tablet (Vitamin B-6) thiamine HCl (vitamin B1) 100 mg 100 mg PO DAILY 10/16/24 01/22/25 tablet (Vitamin B-1) acetaminophen 325 mg tablet 650 mg PO Q4H PRN Pain (Scale 01/22/25 01/22/25 Score 4-6) metoprolol succinate 25 mg 25 mg PO DAILY 01/22/25 01/22/25 tablet,extended release 24 hr Previous Rx's ?Medication ?Instructions ?Recorded magnesium oxide 400 mg (241.3 mg 400 mg PO DAILY #10 tabs 04/25/23 magnesium) tablet folic acid 1 mg tablet 1 mg PO DAILY #30 tabs 10/01/23 amoxicillin 875 mg-potassium 1 tab PO BID #14 tabs 01/24/25 clavulanate 125 mg tablet doxycycline monohydrate 100 mg 100 mg PO BID #14 caps 01/24/25 capsule torsemide 20 mg tablet 20 mg PO Q OTHER DAY 90 days #45 02/05/25 tabs Allergies Allergy/AdvReac Type Severity Reaction Status Date / Time azithromycin (AZITHROMYCIN) Allergy Severe FACIAL Verified 04/02/25 11:26 SWELLING hydrochlorothiazide (HCTZ) Allergy Severe Facial Verified 04/02/25 11:26 Swelling Review of Systems Review of Systems: Yes all other systems are reviewed and are negative Constitutional: Constitutional: Reports no additional constitutional complaints, Denies body ache(s), Denies chills, Denies fever(s), Denies headache(s) and Denies weakness Eyes: Eyes: Reports no additional eye complaints and Denies change in vision ENT: Reports system reviewed and no additional complaints, except as documented, Denies dizziness, Denies headache(s), Denies nasal congestion, Denies nasal discharge and Denies neck pain Cardiovascular: Cardiovascular: Reports no additional cardiovascular complaints, Denies chest pain, Denies leg edema and Denies dyspnea Respiratory: Respiratory: Reports no additional respiratory complaints, Denies cough and Denies dyspnea Gastrointestinal: Gastrointestinal: Reports no additional gastrointestinal complaints, Denies abdominal pain, Denies diarrhea, Denies nausea and Denies vomiting Genitourinary: Genitourinary: Denies urinary incontinence Musculoskeletal: Musculoskeletal: Reports no additional musculoskeletal complaints, Denies back pain, Denies arthralgias, Denies joint swelling, Denies neck pain, Denies numbness and Denies tingling Integumentary/Breasts: Skin/Breast: Reports system reviewed and no additional complaints, except as docu, Denies rash and Reports wounds Neurologic: Reports system reviewed and no additional complaints, except as documented, Denies Abnormal speech present, Denies dizziness, Denies headache(s), Denies numbness, Denies tingling and Denies weakness PMFSH Past Medical History Attestation statement: The following information was validated with the patient. Source: old records reviewed and nursing notes reviewed Medical History Abdominal wall abscess at site of surgical wound CKD stage 3a, GFR 45-59 ml/min Colitis Renal mass Renal cell carcinoma Alcohol use disorder Hyperlipidemia Ascending aortic aneurysm Alcoholic steatohepatitis Seborrheic dermatitis DEBORAH (obstructive sleep apnea) History of rhabdomyolysis Hx of lower gastrointestinal bleeding Hx of sepsis History of DVT of lower extremity Chronic ulcer of leg Chronic venous stasis HTN (hypertension) Anemia Anemia Surgical History H/O partial nephrectomy Hx of colonoscopy Family History Family History Mother Dementia Maternal Grandmother Dementia Social History Social History Household Members: Family Household Members Other:: mother who has dementia Housing: House Housing Other:: 4 stairs to get into house. Pt lives in basement Do you presently have visiting nurse or other home services: Yes Alcohol intake: current Alcohol intake frequency: 0-2 drinks per day Alcohol type: hard liquor Comment: pt refused socks Patient Tobacco Use Status: Never used Tobacco Advance Directives Date on File: 04/13/22 service: No Current occupational status: disabled Physical Exam ED Vital Signs: Vital Signs - 24 hr 04/02/25 11:25 Temperature 97.9 F Pulse Rate 108 H Respiratory Rate 18 Blood Pressure 170/89 H Pulse Oximetry 98 Oxygen Delivery Method Room Air BMI result Body Mass Index 33.8 Const General: cooperative, healthy appearing, comfortable and no acute distress Orientation/consciousness: patient oriented x3 Limitations: no limitations HENMT Head: Yes normal to inspection Ears: hearing grossly normal bilaterally General nose exam: Normal external nose present Face and sinus: Yes normal facial exam Mouth: Normal oral and palatal mucosa present Throat: Yes posterior oropharynx normal Eyes General: appearance normal, both eyes and all related structures Pupils: Equal, round and reactive pupils present Neck Neck: Yes normal visual inspection Chest Chest palpation & inspection: normal inspection of the chest Resp Effort & Inspection: normal respiratory effort Auscultation: clear to auscultation bilaterally Cardio Rate: regular rate Rhythm: regular rhythm Peripheral pulses: Peripheral pulses 2+ throughout GI Other: There is no pain on palpation, no expressible drainage no abscess felt under the skin, no surrounding erythema or warmth Palpation (GI): Soft to palpation and nontender Auscultation: normal bowel sounds Back/Spine/Pelvis Thoracic/Lumbar Spine: thoracic and lumbar spine normal to inspection Skin General skin exam: no rashes or lesions noted Neuro General: patient oriented x3, no focal motor deficits and normal sensation to monofilament Cranial nerves: Yes Equal, round and reactive pupils present Cognition (Neuro): normal cognition Speech: No Abnormal speech present Gait exam (Neuro): Normal gait present Motor exam (neuro): 5/5 motor strength present throughout Extrem General: Yes normal to inspection Course Course Course Narrative: Mary Medinashaheen PROTOTYPE MODEL MAKER 04/02/25 1127 This is a rapid medical exam. Deferred additional HPI, ROS, PE to primary provider. Medical Decision Making Medical Decision Making MDM Narrative: 64 yo with PMH of alcohol use disorder, chronic leg edema/wounds followed by VNA, CKD, HTN, anemia here with complaints of leaking wound to left abdominal wall. Patient reports one year ago he had a left partial nephrectomy due to a benign tumor by Dr Sow. He had a non healing wound on the lateral aspect of the incision for months and was seen by wound care. He reports hes been sweating a lot the last few days and noticed a small blister over the lateral aspect. Today when he was walking he noticed drainage from the site. He denies pain, fever, vomiting. He has an appointment with wound care on Saturday for his leg wounds. He did call Dr Sow and has an appointment on 04/12. There is no pain on palpation, no expressible drainage no abscess felt under the skin, no surrounding erythema or warmth See PE findings. Small blister noted on the lateral surgical incision site that appears to have spontaneously ruptured. No deeper spaced abscess noted on exam. No pain. Does not appear to have cellulitis. Wound care provided in triage. Discussed recommendations for home with wound care. Recommended f/u Saturday as scheduled with wound care. Reviewed worrisome signs and symptoms when to return to the emergency room. Comfortable plan for discharge home. Differential Diagnosis Differential Diagnoses: The differential diagnosis associated with the presentation includes See above Admission/Observation Consideration of admission/observation: Escalation of care including admission/observation considered Independent Historian Clinical information obtained from an independent historian. History obtained from or confirmed by: Parent Prescription Management I considered prescription management with: Antibiotic Discharge Plan Discharge Clinical Impression: Blister (nonthermal) of abdominal wall, initial encounter Patient Disposition: Home, Self-Care Instructions: Blister (ED) Additional Instructions: Apply a topical antibiotic ointment once daily (neosporin, polysporin) and apply a dressing Keep your wound care appointment on Saturday and have them look at your site Follow-up with Dr Sow outpatient so he may examine the area Return for pain, increasing redness, fever or vomiting Prescriptions: No Action torsemide 20 mg tablet 20 mg PO Q OTHER DAY 90 Days Qty: 45 3RF magnesium oxide 400 mg (241.3 mg magnesium) tablet 400 mg PO DAILY Qty: 10 0RF rosuvastatin 5 mg Tablet 5 mg PO BEDTIME folic acid 1 mg tablet 1 mg PO DAILY Qty: 30 0RF acetaminophen 325 mg Tablet 650 mg PO Q4H PRN (Reason: Pain (Scale Score 4-6)) metoprolol succinate 25 mg Tablet Extended Release 24 Hr 25 mg PO DAILY amoxicillin-pot clavulanate 875-125 mg tablet 1 tab PO BID Qty: 14 0RF doxycycline monohydrate 100 mg capsule 100 mg PO BID Qty: 14 0RF thiamine HCl (vitamin B1) [Vitamin B-1] 100 mg Tablet 100 mg PO DAILY pyridoxine (vitamin B6) [Vitamin B-6] 50 mg Tablet 50 mg PO DAILY calcium carbonate-vitamin D3 [Oyster Shell Calcium-Vit D3] 250 mg-3.125 mcg (125 unit) tablet 1 tab PO TID cholecalciferol (vitamin D3) [Vitamin D3] 50 mcg (2,000 unit) Tablet 50 mcg PO DAILY qdjocwoo-aro-hdec fum-folic ac 7.5 mg iron-400 mcg tablet 1 tab PO DAILY ferrous sulfate 325 mg (65 mg iron) Tablet,Delayed Release (Dr/Ec) 325 mg PO DAILY allopurinol 300 mg tablet 300 mg PO DAILY ascorbate calcium (vitamin C) 500 mg tablet 500 mg PO BID Referrals: Aman Sow MD [Physician, Urology] Print Language: Uruguayan
[2025-04-02 12:09] VITALS: BP 170/89; PULSE 108; RESP 18; TEMP 36.6; O2SAT 98
--- OUTSIDE RECORDS SUMMARY | 2025-04-02 12:15 | XMS_ITS | Clinical Summary ---
Author Organization [facility] Address [address] [place] [address] Phone Care Team Providers Care Tape Coater Name Role Phone Samantha Gonzales MD Primary Care Provider [phone] Allergies Active Allergy Reactions Criticality Noted Date [...] mg x 2 during 1st hospitalization in [facility] in Sep 2022 -Continue follow-up with ginger farmer Other dietary vitamin B12 deficiency anemia 09/20 [...] ablation in Aug 2018 -following with [facility] wound care clinic, periodically when he has open wounds. -Last seen by [facility] Wound care in October 2021 -usually discharged [...] -multifactorial - nutritional, CKD -following with [facility] ginger farmer Aneurysm of ascending aorta 05/29/2016 Overview (11/07/2022): Last Assessment & Plan: -Most recent echo on 04/12/21, EF 60-65%, dilated ascending aorta 41mm -Echo on 04/05/20, EF 55-60%, dilated ascending aorta 42 mm, -Echo on 04/01/19 EF 60-65%, Aortic root dimension 37~43mm -Seen by his power generation equipment repairer, Dr. Claudio on n 07/11/22 -Pt advised [...] PCV) 07/25/2019 07/25/2018, 07/21/2014 Influenza Vaccine (#1) 2025 2, 07/20/2021, 06/03/2019, Additional history exists Pneumococcal Vaccine: Peds (0 to 5 Years) and At-Risk Patients (6 to 49 Years) Discontinued 07/25/2018, 07/21/2014 Hepatitis B Vaccine Aged Out No longe r eligible based on patient's age to complete this topic Insurance Medicaid [place] Medicaid [place] Care Teams Tape Coater Relationship Specialty Start Date End Date Samantha Gonzales MD PCP - General 08/29/20
--- OUTSIDE RECORDS SUMMARY | 2025-04-02 12:15 | XMS_ITS | Clinical Summary ---
Author Organization [facility] Address [address] [place] [address] [place] [address] Phone Care Team Providers Care Mail Sorter And Delivery Name Role Phone Vito Maki MD Primary [...] file Medical Devices Not on file Insurance [facility] C3 ACO C3 ACO C3 ACO C[place] [id number] [place] [address] C[address]CO [address] [place] [address] [address] [place] [id number] [facility] [place] [id number] [facility] C3 ACO Care Teams Mail Sorter And Delivery Relationship Specialty Start Date End Date Vito Maki MD [email or web address] PCP - General Family Medicine 01/29/22 Additional Source Comments The information contained in this document represents components of the legal health record. It is not the complete legal health record.[facility]
--- OUTSIDE RECORDS SUMMARY | 2025-04-02 12:15 | XMS_ITS | Encounter Summary ---
Author Organization [employer] Address [address] [place] [address] Care Team Providers Care Roof Slater Name Role Phone Samantha Gonzales MD Primary Care Provider [phone] Encounter Details Date Type Department Care Team (Late Contact Info) Description 01/29/2023 Orders Only [facility] [address] [place], [place] [phone] Samantha Gonzales MD [address] [place], [place] [phone] Hypomagnesemia (Primary Dx) Social History Tobacco Use [...] Description 04/13/2025 10:30 AM EDT Office Visit [facility] [address] [facility] [place] [address] Samantha Gonzales MD [address] [address] [place] [address] Scheduled Orders Name Type Priority Associated Diagnoses [...] documented as of this encounter Care Teams Roof Slater Relationship Specialty Start Date End Date Samantha Gonzales MD [address] [place] [address] PCP - General Family Medicine 07/09/13 [facility] 05/17/24 03/29/25 documented as of this encounter
== END 2025-04-02 12:34 | disposition home or self-care (01) ==
LOC: HO.ED 12:13
PROVIDERS: Emergency Provider Emergency Medicine
DX: S30.821A Blister (nonthermal) of abdominal wall, initial encounter (principal); X58.XXXA Exposure to other specified factors, initial encounter; Y93.9 Activity, unspecified; Y92.9 Unspecified place or not applicable; Y99.8 Other external cause status
CPT/HCPCS: 99282

== ENCOUNTER 2025-04-13 11:14 | Outpatient (REF) | payer MEDICAID, SELFPAY ==
--- OUTSIDE RECORDS SUMMARY | 2025-04-13 10:30 | XMS_ITS | Encounter Summary ---
Author Organization [employer] Address [address] [facility] [address] [place] [address] Care Team Providers Care Atm Technician Name Role Phone Samantha Gonzales MD Primary Care Provider [phone] Reason for Referral * Consultation (Routine) - Pending Review Specialty Diagnoses / Procedures Referred By Mildred silva Referred To Contact Urology Diagnoses Renal cell cancer, left (CMS/HCC) Samantha Gonzales MD [address] [place] [address] Phone: tel: fax: [facility] [address] [place], [place] Phone: tel: fax: Referral ID Status Reason Start Date Expiration Date Visits Requested Visits Authorized [id number] Pending Review Specialty Services Required 04/13/2025 04/13/2026 1 1 Encounter Details Date Type Department Care Team (Late st Contact Info) Description 04/13/2025 10:30 AM EDT Office Visit [facility] [address] [place] [address] Samantha Gonzales MD [address] [place], [place] [phone] Essential hypertension (Primary Dx); Renal cell cancer, left (CMS/HCC); Encounter for immunization; Cellulitis of hand; Dyslipidemia; Diarrhea, unspecified type; Anemia, unspecified type; Wound of left lower extremity, subsequent encounter Social History Tobacco Use Types Packs/Day Years [...] housing situation today? I have neel badillo 01/12/[address] you li ve. Do you have problems with any of the following? I am not sure 01/12/2025 Food Insecurity Answer Date Recorded Within the past 12 months, y ou worried that your food would run out before you got money to buy more: Never True 01/12/2025 Within the past 12 months,th e food you bought just didn't last and you didn't have enough money to get more: Never True Transportation Answer Date Recorded In the past 12 months, has l ack of transportation kept you from medical appts, meetings, work or from getting things needed for daily living? No 01/12/2025 Utilities Answer Date Recorded In the past 12 months, has t he electric, gas, oil or water company threatened to shut off services in your home? No 01/12/2025 Depression Answer Date Recorded Patient Health Questionnaire-2 Score 0 06/25/2024 Internet Access Answer Date Recorded Internet Access Q1 No 01/12/2025 Internet Access Q2 Not on file 01/12/2025 Sex and Gender Information Value Date Recorded Sex Assigned at Male 06/18/2022 10:17 AM EDT Legal Sex Male 10:17 AM EDT Gender Identity Male 06/18/2022 10:17 AM EDT Sexual Orientation Straight 06/18/2022 10 :17 AM EDT documented as of this encounter Last Filed Vital Signs Vital Sign Reading Time Taken Comments Blood Pressure 150/80 04/13/2025 10:15 AM EDT Pulse 57 04/13/2025 10:15 AM EDT Temperature 36 C (96.8 F) 04/13/2025 10:15 AM EDT Respiratory Rate 15 04/13/2025 10:15 AM EDT Oxygen Saturation 98% 04/13/2025 10:15 AM EDT Inhaled Oxygen Concentration - - Weight 102 kg (225 lb) 04/13/2025 10:15 AM EDT Height 170.2 cm (5' 7 ) 04/13/2025 10:15 AM EDT Body Mass Index 35.24 04/13/2025 10:15 AM EDT documented in this encounter Plan of Treatment Upcoming Encounters Date Type Department Care Team (Late st Contact Info) Description 05/14/2025 10:30 AM EDT Clinical Support [facility] [address] [place] [id number] Scheduled Orders Name Type Priority Associated Diagnoses Orde r Schedule Lipid Panel with Reflex to Direct LDL Lab Routine Dyslipidemia Ordered: 04/13/2025 Wound Care Procedures Routine Wound of left lower extremity, subsequent encounter Ordered: 04/13/2025 Comprehensive Metabolic Panel Lab Routine Diarrhea, unspecified type Expected: 04/13/2025 (Approximate), Expires: 04/13/2026 TSH with Reflex to Free T4 Lab Routine Diarrhea, unspecified type Expected: 04/13/2025 (Approximate), Expires: 04/13/2026 Stool - Gastrointestinal panel Microbiology Routine Diarrhea, unspecified type Expected: 04/13/2025 (Approximate), Expires: 04/13/2026 Magnesium Lab Routine Diarrhea, unspecified type Expected: 04/13/2025 (Approximate), Expires: 04/13/2026 CBC auto differential Lab Routine Anemia, unspecified type Expected: 04/13/2025 (Approximate), Expires: 04/13/2026 Scheduled Referrals Name Type Priority Associated Diagnoses Orde r Schedule Referral to Urology Outpatient Referral Routine Renal cell cancer, left ([facility]) Expected: 04/13/2025 (Approximate), Expires: 04/13/2026 documented as of this encounter Visit Diagnoses Diagnosis Essential hypertension- Primary Unspecified essential hypertension Renal cell cancer, left ([facility]) Encounter for immunization Cellulitis of hand Cellulitis and abscess of hand, except fingers and thumb Dyslipidemia Other and unspecified hyperlipidemia Diarrhea, unspecified type Anemia, unspecified type Wound of left lower extremity, subsequent encounter documented in this encounter Additional Health Concerns Assessment Noted Time PHQ-9 Depression Total Score: 0 06/25/20 24 11:09 AM EST documented as of this encounter Care Teams Atm Technician Relationship Specialty Start Date End Date Samantha Gonzales MD [address] [place] [address] PCP - General Family Medicine 07/09/13 documented as of this encounter
--- OUTSIDE RECORDS SUMMARY | 2025-04-13 12:10 | XMS_ITS | Encounter Summary ---
Author Organization [employer] Address [address] [facility] [address] [place] [address] Care Team Providers Care Manager Equipment Name Role Phone Samantha Gonzales MD Primary Care Provider [phone] Encounter Details Date Type Department Care Team (Late Contact Info) Description 01/29/2023 Orders Only [facility] MEDICINE [address], [place] [phone] Samantha Gonzales MD [address] [place], [place] [phone] Hypomagnesemia (Primary Dx) Social History Tobacco Use [...] Department Care Team (Late Contact Info) Description 05/14/2025 10:30 AM EDT Clinical Support [facility] MED[facility]INE [address] [place] [address] Scheduled Orders Name Type Priority Associated Diagnoses [...] as of this encounter Care Teams Manager Equipment Relationship Specialty Start Date End Date Samantha Gonzales MD [address] [place] [address] PCP - General Family Medicine 07/09/13 [facility] 05/17/24 03/29/25 documented as of this encounter
--- OUTSIDE RECORDS SUMMARY | 2025-04-13 12:10 | XMS_ITS | Encounter Summary ---
Author Organization [employer] Address [address] [facility] [address] [place] [address] Care Team Providers Care Calender Feeder Name Role Phone Samantha Gonzales MD Primary Care Provider [phone] Reason for Visit * Reason Onset Date Comments urgent matter 10/10/2022 Encounter Details Date Type Department Care Team ([facility] st Contact Info) Description 10/10/2022 Telephone [facility] MEDICINE [address] [place], [place] [phone] Samantha Gonzales MD [address] [place], [place] [phone] urgent matter Social History Tobacco Use Types [...] EST Spoke with Karyn. Attended the court. Stallion Manager did not agree with [address] * Telephone Encounter - Luz Elena Alvarezro - 10/10/2022 1:58 PM EST Tc from Karyn with [facility] regarding to pt. Karyn states that is an urgent matter regarding to [address] and will need to speak with PCP, regarding the matter to set up a zoom meeting with PCP and the court. Law Secretary contacted PCP in advise epic chat, and let PCP know what's going on. Please contact Karyn at [phone] documented in this encounter Plan of Treatment Upcoming Encounters Date Type Department Care Team (Late st Contact Info) Description 05/14/2025 10:30 AM EDT Clinical Support [facility] MEDICINE [address] [place] [address] documented as of this encounter Visit Diagnoses Not on filedocumented in this encounter Care Teams Calender Feeder Relationship Specialty Start Date End Date Samantha Gonzales MD [address] [place] [address] PCP - General Family Medicine 07/09/13 [facility] 05/17/24 03/29/25 documented as of this encounter
--- OUTSIDE RECORDS SUMMARY | 2025-04-13 12:10 | XMS_ITS | Encounter Summary ---
Author Organization [employer] Address [address] [facility] [address] [place] [address] Care Team Providers Care Catalogue Illustrator Name Role Phone Samantha Gonzales MD Primary Care Provider [phone] Encounter Details Date Type Department Care Team (Late Contact Info) Description 12/17/2022 Abstract [facility] MEDICINE [address] [place] [phone] Zee Szymanski MD [address] [place] [phone] Social History Tobacco Use Types Packs/Day Years [...] Description 05/14/2025 10:30 AM EDT [facility] Support [facility] [address] [place] [address] [place] [address] documented as of this encounter Visit Diagnoses Not on filedocumented in this encounter Additional Health Concerns Assessment Noted Time PHQ-9 Depression Total Score: 3 12/15/19 23 1:37 PM EDT documented as of this encounter Care Teams Catalogue Illustrator Relationship Specialty Start Date End Date Samantha Gonzales MD [address] [place] [address] PCP - General Family Medicine 07/09/13 [facility] 05/17/24 03/29/25 documented as of this encounter
--- OUTSIDE RECORDS SUMMARY | 2025-04-13 12:10 | XMS_ITS | Clinical Summary ---
Author Organization [employer] Address [address] [place] [address] Care Team Providers Care Water Systems Designer Name Role Phone Samantha Gonzales MD Primary Care Provider [phone] Allergies Active Allergy Reactions Criticality Noted Date Comments Azithromycin Swelling High 08/26/2023 Hydrochlorothiazide Swelling 01/29/2012 Statins 02/11/2020 Other reaction(s): Elevated CPK Medications * This document contains information received from the source organization and may not represent a complete record from that organization. acetaminophen (Tylenol) 325 MG tablet Take 2 tablets by mouth every 4 (four) hours if needed for moderate pain. 3 Active Ascorbic Acid (vitamin C) 500 MG tablet TAKE 1 TABLET BY MOUTH TWICE A DAY 180 tablet 4 Active rosuvastatin (Crestor) 5 MG tablet TAKE 1 TABLET BY MOUTH AT BEDTIME 90 tablet 4 Active ferrous sulfate 324 (65 Fe) MG EC tablet Take 324 mg by mouth with breakfast and with evening meal. 4 Active magnesium oxide (Mag-Ox) 400 MG tabletIndications: Hypomagnesemia TAKE 1 TABLET BY MOUTH tid 90 tablet 3 4 Active Multiple Vitamins-Minerals (multivitamin with minerals) tablet Take 1 tablet by mouth Once per day. 5 Active Emollient (Eucerin Advanced Repair) creamIndications:A cquired lymphedema of lower extremity Apply 4 g topically 2 times daily. 454 g 11 5 Active naltrexone (Depade) 50 MG tabletIndications: Alcohol use, unspecified, uncomplicated Take 1 tablet (50 mg) by mouth Once per day. 30 tablet 11 5 01/13/20 Active ammonium lactate (Lac-Hydrin) 12 % lotion APPLY TOPICALLY TO THE AFFECTED AREA(S) OF bilateral lower LEGS TO intact SKIN EVERY DAY NEEDED Active torsemide (Demadex) 20 MG tablet Take 1 tablet by mouth every other day. Active loperamide (Imodium A-D) 2 MG tablet Take 1-2 tablets (2-4 mg) by mouth if needed in the morning, at noon, in the evening, and at bedtime for diarrhea. 30 tablet 2 Active metoprolol succinate XL (Toprol-XL) 25 MG 24 hr tablet Take 1 tablet (25 mg) by mouth Once per day. Do not crush or chew. 90 tablet 3 Active allopurinol (Zyloprim) 100 MG tabletIndications: History of gout TAKE 1 TABLET BY MOUTH EVERY MORNING 90 tablet 3 5 Active Active Problems Problem Noted Date Diagnosed Date Wound of left lower extremity 02/25/2025 Assessment & Plan (02/25/2025 5:22 PM EDT): - s/p antibiotic treatment for cellulitis - Currently following with [facility] wound care [facility] - Continue treatment plan per [facility] wound care Diarrhea 01/12/2025 Assessment & Plan (02/25/2025 5:04 PM EDT): - Seen by GI, Dr. Lenz, on 01/19/2025. Dr. Lenz's impression is IBS with diarrhea. - Hospitalized in [facility] ED in September 2023 for diarrhea and abdominal pain. Evaluated by colonoscopy which was negative for IBD, microscopic colitis, or polyps. Negative for C. difficile. EGD in September 2023 negative for celiac disease, H. pylori, or Shi's esophagus - Encouraged adequate fluid intake - Prescribed loperamide (Imodium A-D) 2 MG tablet - Patient has history of hypomagnesemia, and takes magnesium oxide. Patient was advised to use judiciously. Will request his deputy grand jury to assist in optimizing his magnesium level without causing diarrhea - Patient was advised to reduce alcohol consumption Assessment & Plan (01/13/2025 10:06 PM EDT): On 01/12/25 - Prescribed loperamide (Imodium A-D) 2 MG tablet - Prescribed ciprofloxacin (Cipro) 500 MG tablet - Ordered Comprehensive Metabolic Panel - Ordered TSH with Reflex to Free T4 - Ordered Stool - Gastrointestinal panel - Ordered Magnesium Left hand pain 10/09/2024 Assessment & Plan (10/14/2024 5:14 PM EST): - Continue judicious use of APAP - Ordered CT Wrist w/o Contrast Left 10/08/24 - Ordered Referral to Orthopaedic Surgery 10/08/24 Localized pain of right shoulder joint Assessment & Plan (09/11/2024 1:27 PM EST): [...] PT. Pt has one kidney, avoid NSAIDS. Cellulitis of hand 01/23/2024 Bilateral cellulitis of lower leg 01/23/2024 Assessment & Plan (02/25/2025 5:19 PM EDT): - recurrent cellulitis, chronic venous stasis dermatitis - recurrent open wound - hx maggot infestation - received IV antibiotic treatment then, completed with Augmentin and doxycycline in January 2025 Chronic venous stasis 01/23/2024 Closed head injury 01/23/2024 Colitis 01/23/2024 Assessment & Plan (01/13/2025 10:05 PM EDT): On 01/12/25 - Prescribed loperamide (Imodium A-D) 2 MG tablet - Prescribed ciprofloxacin (Cipro) 500 MG tablet Concussion with loss of consciousness 01/23/2024 Hip [...] cell cancer, left 07/25/2023 Assessment & Plan (02/13/2025 8:47 AM EDT): -09/21/[address] showed 2.3 cm lesion on the upper pole of left kidney; MRI was recommended -MRI 12/27/22 showed a lesion suspicious for renal cell carcinoma -s/p left nephrectomy on 12/17/23 Recommended to keep next appointment with Dr. Sow Assessment & Plan (01/17/2025 12:08 PM EDT): -09/21/[address] showed 2.3 cm lesion on the upper pole of left kidney; MRI was recommended -MRI 12/27/22 showed a lesion suspicious for renal cell carcinoma -s/p left nephrectomy on 12/17/23 Recommended to keep next appointment with Dr. Sow Assessment & Plan (10/09/2024 1:01 AM EST): [...] appt date Dyslipidemia 05/26/2023 Assessment & Plan (02/13/2025 8:46 AM EDT): - current medication: rosuvastatin 5 mg at bedtime - last lipid profile: 07/02/24 - continue working on lifestyle modficiation Assessment & Plan (01/13/2025 10:01 PM EDT): - current medication: rosuvastatin 5 mg at bedtime - last lipid profile: 07/02/24 - continue working on lifestyle modficiation Assessment & Plan (10/09/2024 1:02 AM EST): [...] -1st fall at [employer] on 2/3/23. Witnessed seizure. Head CT showed moderate subgaleal [...] Chronic liver disease 10/13/2022 Assessment & Plan (02/13/2025 8:46 AM EDT): -multifactorial: Excessive alcohol intake; obesity -recent abdominal CT showed splenomegaly and fatty liver -recent lab shows thrombocytopenia -continue working on risk factor management -upcoming appointment with Dandy Lenz Assessment & Plan (10/14/2024 5:11 PM EST): [...] lower extremiti es 10/13/2022 Assessment & Plan (02/21/2025 6:14 PM EDT): -Recurrent -s/p cellulitis / sepsis, 12/17/19-12/21/19, requiring hospitalization and IV Zosyn, vanco, and linezolid, switched to doxycyline PO. -s/p cellulitis requiring hospitalization and IV antibiotic 06/05/19-06/09/19 -s/p right GSV ablation on 06/24/19 -s/p left GSV ablation in Aug 2018 -following with [facility] wound care clinic, periodically when he has open wounds. -currently followed by [facility] Wound care -usually discharged to visiting nurse wound care service -continue compression stockings and leg elevation -reviewed si/sx to seek a prompt medical attention -advised to monitor closely and treat proactively Assessment & Plan (01/17/2025 12:06 PM EDT): -Recurrent -s/p cellulitis / sepsis, 12/17/19-12/21/19, requiring hospitalization and IV Zosyn, vanco, and linezolid, switched to doxycyline PO. -s/p cellulitis requiring hospitalization and IV antibiotic 06/05/19-06/09/19 -s/p right GSV ablation on 06/24/19 -s/p left GSV ablation in Aug 2018 -following with [facility] wound care clinic, periodically when he has open wounds. -Last seen by [facility]ound care in October 2021 -usually discharged to visiting nurse wound care service -continue compression stockings and leg elevation -reviewed si/sx to seek a prompt medical attention -advised to monitor closely and treat proactively Assessment & Plan (07/25/2023 6:23 AM EST): -Recurrent -s/p cellulitis / sepsis, 12/17/19-12/21/19, requiring hospitalization and IV Zosyn, vanco, and linezolid, switched to doxycyline PO. -s/p cellulitis requiring hospitalization and IV antibiotic 06/05/19-06/09/19 -s/p right GSV ablation on 06/24/19 -s/p left GSV ablation in Aug 2018 -following with [facility] wound care clinic, periodically when he has open wounds. -Last seen by [facility]ound care in October 2021 -usually discharged [...] GSV ablation in Aug 2018 -following with [facility] wound care clinic, periodically when he has open wounds. -Last seen by [facility]ound care in October 2021 -usually discharged [...] GSV ablation in Aug 2018 -following with [facility] wound care clinic, periodically when he has open wounds. -Last seen by [facility]ound care in October 2021 -usually discharged [...] GSV ablation in Aug 2018 -following with [facility] wound care clinic, periodically when he has open wounds. -Last seen by [facility]ound care in October 2021 -usually discharged [...] GSV ablation in Aug 2018 -following with [facility] wound care clinic, periodically when he has open wounds. -Last seen by [facility]ound care in October 2021 -usually discharged [...] dialysis 10/13/2022 Hypomagnesemia 10/13/2022 Assessment & Plan (02/25/2025 5:13 PM EDT): - On magnesium oxide supplementation, but pt is frequently having diarrhea - following with deputy grand jury - He has diarrhea due to alcohol withdrawal and IBS, and develops hypomagnesemia, then he receives IV Mg in ED with magnesium oxide prescription upon discharge. Assessment & Plan (06/25/2024 12:14 PM EST): - 01/28/23 Magnesium 1.1 - On magnesium oxide supplementation, but pt is frequently having diarrhea - following with deputy grand jury - dehydration due to diarrhea on 04/25/23, IVF with Mg given in ED - recheck Assessment & Plan (05/26/2023 6:52 AM EDT): - 01/28/23 Magnesium 1.1 - On magnesium oxide supplementation, but pt is frequently having diarrhea - following with deputy grand jury - dehydration due to diarrhea on 04/25/23, IVF with Mg given in ED - recheck Assessment & Plan (04/25/2023 12:51 PM EDT): - 01/28/23 Magnesium 1.1 - On magnesium oxide supplementation, but pt is frequently having diarrhea - following with deputy grand jury - dehydration due to diarrhea today; anticipate hypomagnesemia again -> sending ER for replacement Assessment & Plan (01/23/2023 4:07 PM EDT): [facility] Hospitalization on 10/30 - 11/02 Lab showed hypomagnesemia and thrombocytopenia Pt is prescribed magnesium supplement; encouraged to improve adherence Pt is advised to hold when he is having diarrhea Assessment & Plan (11/30/2022 6:23 AM EDT): [facility] Hospitalization on 10/30 - 11/02 Lab showed hypomagnesemia and thrombocytopenia Pt is prescribed magnesium supplement; encouraged to improve adherence Stage 2 chronic kidney disease 10/13/2022 Assessment & Plan (02/13/2025 8:47 AM EDT): -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 Dr. Brent Serrano rhabdomyolysis, on hemodialysis for 1 month in November 2017 - December 2017 -His renal funciton was CKDII level [id number] -Most recent [facility] in Sep 2022, both admission, held lisinopril, spironolactone, and torsemide during 1st admission, and resumed upon discharge -Last lab: 01/28/23 Sodium 135; Potassium 3.6 ; Chloride 99 ; Bicarb 24 ; Calcium 8.0; BUN 19 , Creatinine 1.02 ; EGFR 84 -Avoid nephrotoxic drugs -Continue renal dosing Assessment & Plan (10/14/2024 5:13 PM EST): -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 Dr. Brent Serrano rhabdomyolysis, on hemodialysis for 1 month in November 2017 - December 2017 -His renal funciton was CKDII level [id number] -Most recent [facility] in Sep 2022, both admission, held lisinopril, spironolactone, and torsemide during 1st admission, and resumed upon discharge -Last lab: 01/28/23 Sodium 135; Potassium 3.6 ; Chloride 99 ; Bicarb 24 ; Calcium 8.0; BUN 19 , Creatinine 1.02 ; EGFR 84 -Avoid nephrotoxic drugs -Continue renal dosing Assessment & Plan (07/26/2023 2:10 PM EST): -English Horn Player: Dr. Kennedy, last appt in Sep 2021 -Hx rhabdomyolysis, on hemodialysis for 1 month in November 2017 - December 2017 -His renal funciton was CKDII level [id number] -Most recent [facility] in Sep 2022, both [...] Assessment & Plan (05/26/2023 6:49 AM EDT): -English Horn Player: Dr. Kennedy, last appt in Sep 2021 -Hx rhabdomyolysis, on hemodialysis for 1 month in November 2017 - December 2017 -His renal funciton was CKDII level [id number] -Most recent [facility] in Sep 2022, both admission, held lisinopril, spironolactone, and torsemide during 1st admission, and resumed upon discharge -Last lab: 01/28/23 Sodium 135; Potassium 3.6 ; Chloride 99 ; Bicarb 24 ; Calcium 8.0; BUN 19 , Creatinine 1.02 ; EGFR 84 -Avoid nephrotoxic drugs -Continue renal dosing Assessment & Plan (04/25/2023 12:49 PM EDT): -English Horn Player: Dr. Kennedy, last appt in Sep 2021 -Hx rhabdomyolysis, on hemodialysis for 1 month in November 2017 - December 2017 -His renal funciton was CKDII level [id number] -Most recent [facility] in Sep 2022, both admission, held lisinopril, spironolactone, and torsemide during 1st admission, and resumed upon discharge -Last lab: 01/28/23 Sodium 135; Potassium 3.6 ; Chloride 99 ; Bicarb 24 ; Calcium 8.0; BUN 19 , Creatinine 1.02 ; EGFR 84 -Avoid nephrotoxic drugs -Continue renal dosing Assessment & Plan (01/23/2023 4:04 PM EDT): -English Horn Player: Dr. Kennedy, last appt in Sep 2021 -Hx rhabdomyolysis, on hemodialysis for 1 month in November 2017 - December 2017 -His renal funciton was CKDII level [id number] -Most recent [facility] in Sep 2022, both admission, held lisinopril, spironolactone, and torsemide during 1st admission, and resumed upon discharge -Last lab: 10/07/22 BUN 31; SCr 1.7, eGFR 47 (Apr 2023 eGFR > 60) -Avoid nephrotoxic drugs -Continue renal dosing Assessment & Plan (11/26/2022 9:32 AM EDT): -English Horn Player: Dr. Kennedy, last appt in Sep 2021 -Hx rhabdomyolysis, on hemodialysis for 1 month in November 2017 - December 2017 -His renal funciton was CKDII level [id number] -Most recent [facility] in Sep 2022, both admission, held lisinopril, spironolactone, and torsemide during 1st admission, and resumed upon discharge -Last lab: 10/07/22 BUN 31; SCr 1.7, eGFR 47 (Apr 2023 eGFR > 60) -Avoid nephrotoxic drugs -Recheck lab -Will use renal dosing Assessment & Plan (10/13/2022 5:03 PM EST): -English Horn Player: Dr. Kennedy, last appt in Sep 2021 -Hx rhabdomyolysis, on hemodialysis for 1 month in November 2017 - December 2017 -His renal funciton was CKDII level [id number] -Most recent PO[facility] in Sep 2022, both [...] supplementation -currently receiving B12 IM from his asphalt worker, Dr. Peters Assessment & Plan (06/25/2024 12:12 PM EST): -likely nutritional and excessive alcohol consumption -continue vitamin supplementation -currently receiving B12 IM from his asphalt worker, Dr. Peters Assessment & Plan (07/25/2023 6:24 AM EST): -likely nutritional and excessive alcohol consumption -continue vitamin supplementation -currently receiving B12 IM from his asphalt worker, Dr. Peters Assessment & Plan (10/13/2022 5:15 PM EST): -likely nutritional and excessive alcohol consumption -continue vitamin supplementation Iron deficiency anemia 10/13/2022 Assessment & Plan (07/25/2023 6:25 AM EST): -Received Venfor IV 300 mg x 2 during 1st hospitalization in [facility] in Sep 2022 -Continue follow-up with asphalt worker Assessment & Plan (10/13/2022 5:17 PM EST): -Received Venfor IV 300 mg x 2 during 1st hospitalization in [facility] in Sep 2022 -Continue follow-up with asphalt worker Anemia of chronic disease 01/15/2018 Assessment & Plan (02/25/2025 5:16 PM EDT): - following with asphalt worker - Most recent CBC at baseline - multifactorial: chronic liver disease; iron deficiency; B12 deficiency - continue vitamin B12 IM - continue iron Assessment & Plan (01/17/2025 12:09 PM EDT): - recheck lab as his last CBC showed decreased H/H from baseline Assessment & Plan (10/09/2024 1:03 AM EST): - Both Iron and Vitamin-B12 deficiency, and anemia of chronic diseaes - followed by asphalt worker, Dr. Peters Assessment & Plan (06/25/2024 12:12 PM EST): - Both Iron and Vitamin-B12 deficiency, and anemia of chronic diseaes - followed by asphalt worker, Dr. Peters Assessment & Plan (07/26/2023 2:12 PM EST): - Both Iron and Vitamin-B12 deficiency, and anemia of chronic diseaes -followed by asphalt worker, Dr. Peters, last seen on 06/03/23 Assessment & Plan (05/26/2023 6:51 AM EDT): Both Iron and Vitamin-B12 deficiency -followed by asphalt worker Assessment & Plan (04/25/2023 10:40 AM EDT): Both Iron and Vitamin-B12 deficiency -followed by asphalt worker Assessment & Plan (01/23/2023 4:06 PM EDT): Both Iron and Vitamin-B12 deficiency -followed by asphalt worker Assessment & Plan (11/26/2022 9:51 AM EDT): Both Iron and Vitamin-B12 deficiency -followed by asphalt worker Assessment & Plan (10/13/2022 5:18 PM EST): -multifactorial - nutritional, CKD -following with [facility] asphalt worker Aneurysm of ascending aorta 05/29/2016 Assessment & Plan (01/13/2025 10:00 PM EDT): -Most recent echo on 04/12/21, EF 60-65%, dilated ascending aorta 41mm -Echo on 04/05/20, EF 55-60%, dilated ascending aorta 42 mm, -Echo on 04/01/19 EF 60-65%, Aortic root dimension 37~43mm -Echo on 06/23/24 EF 60-65%, Ascending aortic aorta 41 mm. -Seen by his instructor kindergarten, Dr. Claudio in Jun 2024 -Continue surveillance transthoracic echocardiogram -Work on risk factor management Assessment & Plan (10/14/2024 5:06 PM EST): -Most recent echo on 04/12/21, EF 60-65%, dilated ascending aorta 41mm -Echo on 04/05/20, EF 55-60%, dilated ascending aorta 42 mm, -Echo on 04/01/19 EF 60-65%, Aortic root dimension 37~43mm -Echo on 06/23/24 EF 60-65%, Ascending aortic aorta 41 mm. -Seen by his instructor kindergarten, Dr. Claudio in Jun 2024 -Continue surveillance transthoracic echocardiogram -Work on risk factor management Assessment & Plan (11/12/2023 12:18 PM EDT): -Most recent echo on 04/12/21, EF 60-65%, dilated ascending aorta 41mm -Echo on 04/05/20, EF 55-60%, dilated ascending aorta 42 mm, -Echo on 04/01/19 EF 60-65%, Aortic root dimension 37~43mm -Seen by his instructor kindergarten, Dr. Claudio on 03/14/23 -Pt advised to check next Cardiogram appt which is in August 2023 -Work on risk factor management Assessment & Plan (07/25/2023 6:22 AM EST): -Most recent echo on 04/12/21, EF 60-65%, dilated ascending aorta 41mm -Echo on 04/05/20, EF 55-60%, dilated ascending aorta 42 mm, -Echo on 04/01/19 EF 60-65%, Aortic root dimension 37~43mm -Seen by his instructor kindergarten, Dr. Claudio on 03/14/23 -Pt advised to check next Cardiogram appt which is in August 2023 -Work on risk factor management Assessment & Plan (05/26/2023 6:48 AM EDT): -Most recent echo on 04/12/21, EF 60-65%, dilated ascending aorta 41mm -Echo on 04/05/20, EF 55-60%, dilated ascending aorta 42 mm, -Echo on 04/01/19 EF 60-65%, Aortic root dimension 37~43mm -Seen by his instructor kindergarten, Dr. Claudio on 03/14/23 -Pt advised to check next Cardiogram appt which is in August 2023 -Work on risk factor management Assessment & Plan (04/25/2023 10:42 AM EDT): -Most recent echo on 04/12/21, EF 60-65%, dilated ascending aorta 41mm -Echo on 04/05/20, EF 55-60%, dilated ascending aorta 42 mm, -Echo on 04/01/19 EF 60-65%, Aortic root dimension 37~43mm -Seen by his instructor kindergarten, Dr. Claudio on 03/14/23 -Pt advised to check next Cardiogram appt which is in August 2023 -Work on risk factor management Assessment & Plan (11/30/2022 6:19 AM EDT): -Most recent echo on 04/12/21, EF 60-65%, dilated ascending aorta 41mm -Echo on 04/05/20, EF 55-60%, dilated ascending aorta 42 mm, -Echo on 04/01/19 EF 60-65%, Aortic root dimension 37~43mm -Seen by his instructor kindergarten, Dr. Claudio on n 07/11/22 -Pt advised to check next Cardiogram appt -Work on risk factor management Assessment & Plan (10/13/2022 5:10 PM EST): -Most recent echo on 04/12/21, EF 60-65%, dilated ascending aorta 41mm -Echo on 04/05/20, EF 55-60%, dilated ascending aorta 42 mm, -Echo on 04/01/19 EF 60-65%, Aortic root dimension 37~43mm -Seen by his instructor kindergarten, Dr. Claudio on n 07/11/22 -Pt advised to check next Cardiogram appt -Work on risk factor management Acquired deviated nasal septum 04/25/2016 Metabolic dysfunction-associ ated steatotic liver disease and increased alcohol intake (MetALD) 12/27/2015 Assessment & Plan (02/13/2025 8:47 AM EDT): - Last liver test: 07/02/24 - Last US / elastography -> ordered - Last imaging: CT in Jul 2024 showed splenomegaly, hepatomegaly, and diffuse fatty liver - FIB4 index 6.49, cirrhosis - GI: Upcoming appointment with Dr. Lenz - autumn working on lifestyle modifications - continue surveillance study - Prescribed loperamide (Imodium A-D) 2 MG tablet Assessment & Plan (01/13/2025 10:05 PM EDT): - Last liver test: 07/02/24 - Last US / elastography -> ordered - Last imaging: CT in Jul 2024 showed splenomegaly, hepatomegaly, and diffuse fatty liver - FIB4 index 6.49, cirrhosis - GI: Upcoming appointment with Dr. Lenz - autumn working on lifestyle modifications - continue surveillance study - Prescribed loperamide (Imodium A-D) 2 MG tablet Assessment & Plan (10/14/2024 5:11 PM EST): - Last liver test: 07/02/24 - Last US / elastography -> ordered - Last imaging: CT in Jul 2024 showed splenomegaly, hepatomegaly, and diffuse fatty liver - FIB4 index 6.49, cirrhosis - GI: Upcoming appointment with Dr. Lenz - autumn working on lifestyle modifications - continue surveillance study Alcohol use disorder 09/06/2015 Assessment & Plan (02/25/2025 5:19 PM EDT): -He had at least 5 significant falls since Jul 2022. Although falls are described as mechanical falls, he was under the influence of alcohol for all occasions -10/02/22 BAL 199 mg/dl -He had subdural hematoma -Section 35 was attempted; but pt was deemed not an imminent danger to himself - previously following with Dr. Mendoza for AUD, recommended to resume - no longer on naltrexone; restart - discussed about behavioral health service, which he states he will consider Assessment & Plan (01/17/2025 12:10 PM EDT): -He had at least 5 significant falls since Jul 2022. Although falls are described as mechanical falls, he was under the influence of alcohol for all occasions -10/02/22 BAL 199 mg/dl -He had subdural hematoma -Section 35 was attempted; but pt was deemed not an imminent danger to himself - previously following with Dr. Mendoza for AUD, recommended to resume - no longer on naltrexone; restart - discussed about behavioral health service, which he states he will consider Assessment & Plan (10/09/2024 1:02 AM EST): [...] to AUD Clinic. Pt will meet with Waiter[employer] today. Assessment & Plan (10/13/2022 5:30 PM [...] 09/06/2015 Essential hypertension 05/30/2015 Assessment & Plan (02/25/2025 4:48 PM EDT): - Goal BP < 130/80 per ACC/AHA guideline. - BP not at goal today, patient has not taken his medication yet and questionable medication adherence - Patient declined CDTM - Continue checking home BP - Continue working on lifestyle modifications - Restart metoprolol succinate 25 mg daily - Currently torsemide 20 mg every other day - Continue spirolactone 25 mg daily - Previously on losartan 25 mg daily which was discontinued by deputy grand jury - Improve CPAP adherence Tx history - Amlodipine was discontinued due to LE edema and furosemide was switched to torsemide by his instructor kindergarten. - Lisinopril was discontinued when he had PO[facility], but restarted after his renal function recovered - Lisinopril and torsemide were held during hospitalization with POLLY. Resumed upon discharge. - Lisinopril was changed to losartan in Jul 2023. - Metoprolol had been self-discontinued, but will restart Assessment & Plan (01/17/2025 12:06 PM EDT): - Goal BP <140/90 per JNC-8, < 130/80 per ACC/AHA guideline. - BP not at goal today, patient has not taken his medication yet and questionable medication adherence - Continue checking home BP - Continue working on lifestyle modifications - Continue metoprolol succinate 75 mg daily - Currently torsemide 20 mg bid is on hold - Continue spirolactone 25 mg daily - Previously on losartan 25 mg daily which was discontinued by deputy grand jury - Improve CPAP adherence Tx history - Amlodipine was discontinued due to LE edema and furosemide was switched to torsemide by his instructor kindergarten. - Lisinopril was discontinued when he had POLLY, but restarted after his renal function recovered - Lisinopril and torsemide were held during recent hospitalization. Resumed upon discharge. - Lisinopril was changed to losartan in Jul 2023. Assessment & Plan (10/14/2024 4:52 PM EST): [...] 25 mg daily which was discontinued by deputy grand jury - Improve CPAP adherence Tx history - Amlodipine was discontinued due to LE edema and furosemide was switched to torsemide by his instructor kindergarten. - Lisinopril was discontinued when he had [...] 25 mg daily which was discontinued by deputy grand jury - Improve CPAP adherence Tx history - Amlodipine was discontinued due to LE edema and furosemide was switched to torsemide by his instructor kindergarten. - Lisinopril was discontinued when he had [...] furosemide was switched to torsemide by his instructor kindergarten. - Lisinopril was discontinued when he had [...] in 2 wks. - Improve CPAP adherence Tx history - Amlodipine was discontinued due to LE edema and furosemide was switched to torsemide by his instructor kindergarten. - Lisinopril was discontinued when he had [...] metoprolol succinate 75 mg daily (Dr. Claudio, instructor kindergarten, increased to 100 mg daily, but his discharge medication list shows 75 mg daily) - Continue torsemide 20 mg bid - Continue spirolactone 25 mg daily - Continue lisinopril 5mg daily - Improve CPAP adherence Tx history - Amlodipine was discontinued due to LE edema and furosemide was switched to torsemide by his instructor kindergarten. - Lisinopril was discontinued when he had [...] metoprolol succinate 75 mg daily (Dr. Claudio, instructor kindergarten, increased to 100 mg daily, but his discharge medication list shows 75 mg daily) - Continue torsemide 20 mg bid - Continue spirolactone 25 mg daily - Continue lisinopril 5mg daily - Improve CPAP adherence Tx history - Amlodipine was discontinued due to LE edema and furosemide was switched to torsemide by his instructor kindergarten. - Lisinopril was discontinued when he had [...] metoprolol succinate 75 mg daily (Dr. Claudio, instructor kindergarten, increased to 100 mg daily, but his discharge medication list shows 75 mg daily) - Continue torsemide 20 mg bid - Continue spirolactone 25 mg daily - Continue lisinopril 5mg daily - Improve CPAP adherence Tx history - Amlodipine was discontinued due to LE edema and furosemide was switched to torsemide by his instructor kindergarten. - Lisinopril was discontinued when he had [...] metoprolol succinate 75 mg daily (Dr. Claudio, instructor kindergarten, increased to 100 mg daily, but his discharge medication list shows 75 mg daily) - Continue torsemide 20 mg bid - Continue spirolactone 25 mg daily - Continue lisinopril 5mg daily - Improve CPAP adherence Tx history - Amlodipine was discontinued due to LE edema and furosemide was switched to torsemide by his instructor kindergarten. - Lisinopril was discontinued when he had [...] metoprolol succinate 75 mg daily (Dr. Claudio, instructor kindergarten, increased to 100 mg daily, but his discharge medication list shows 75 mg daily) - Continue torsemide 20 mg bid - Continue spirolactone 25 mg daily - Continue lisinopril 5mg daily - Improve CPAP adherence Tx history - Amlodipine was discontinued due to LE edema and furosemide was switched to torsemide by his instructor kindergarten. - Lisinopril was discontinued when he had POLLY, but restarted after his renal function recovered - Lisinopril and torsemide were held during recent hospitalization. Resumed upon discharge. 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 - he requires a level of care to debride his wounds, potential imaging and surgical intervention. - ambulance called to transport patient to [facility] for further management Abdominal pain 01/23/2024 02/25/2025 Acute hypokalemia 01/23/2024 02/25/2025 Vomiting and diarrhea 01/23/20232022 Assessment & Plan (01/23/2023 4:03 PM EDT): - infectious gastroenteritis (viral or bacterial), ?food poisoning, medication side effects (Magnesium oxide and other medications) - pt declines lab and ED referral - reviewed ER precautions - continue hydrating himself and supportive care - pt states he will do lab when he comes back for AUD clinic this Saturday Kidney lesion, [place], left 10/13/2022 06/15/2024 Assessment & Plan (07/25/2023 [...] Encounters Date Type Department Care Team Description 04/13/2025 10:30 AM EDT Office Visit [facility] [address] [place] [phone] Samantha Gonzales MD Essential hypertension (Primary Dx); Renal cell cancer, left (CMS/HCC); Encounter for immunization; Cellulitis of hand; Dyslipidemia; Diarrhea, unspecified type; Anemia, unspecified type; Wound of left lower extremity, subsequent encounter 04/13/2025 Telephone [facility] [address] [place] [address] Samantha Gonzales MD visiting nurse referral 04/13/2025 Travel 04/12/2025 Telephone [facility] [address] [place] [address] Samantha Gonzales MD Referral 03/31/2025 Patient Outreach [facility] [address] [place] [address] Samantha Gonzales MD Care Coordination (C3/CM Outreach) 03/24/[address] [address] Samantha Gonzales MD FYI 03/03/2025 Patient Outreach [facility] [address] [place] [address] Samantha Gonzales MD Care Coordination (C3/CM Outreach) 02/12/2025 Patient Outreach [facility] [address] [place] [address] Samantha Gonzales MD 02/11/2025 9:30 AM EDT Office Visit [facility] [address] [place] [phone] Samantha Gonzales MD Essential hypertension (Primary Dx); Dyslipidemia; Chronic liver disease; Metabolic dysfunction-associat ed steatotic liver disease and increased alcohol intake (MetALD); Hypomagnesemia; Stage 2 chronic kidney disease; Renal cell cancer, left (CMS/HCC); History of gout; Venous stasis dermatitis of both lower extremities; Diarrhea, unspecified type; Anemia of chronic disease; Bilateral cellulitis of lower leg; Alcohol use disorder; Wound of left lower extremity, sequela; Obstructive sleep apnea syndrome 02/11/2025 9:00 AM EDT Office Visit [facility] [address] [place] [address] IssacLima pratt, OD Presbyopia (Primary Dx) 02/11/2025 Travel 02/10/2025 Telephone [facility] [address] [place] [phone] Marcella Wong RN ER Follow-up 02/08/2025 Orders Only GENERIC EXTERNAL DATA DEPARTMENT Provider, Generic External Data 02/08/2025 Telephone [facility] [address] [place] [phone] Darcy Mariee MA chart prep 02/05/2025 Travel 02/02/2025 Patient Outreach [facility] [address] [place] [address] Samantha Gonzales MD 02/02/[address] [address] Samantha Gonzales MD 01/29/[address] [address] Avis Newby, Brian 01/28/2025 Patient Outreach [facility] [address] [place] [address] Samantha Gonzales MD Care Coordination (C3/CM Outreach) 01/26/2025 Patient Outreach [facility] [address] [place] [address] [phone] Samantha Gonzales MD 01/25/2025 Patient Outreach [address] [address] Samantha Gonzales MD Transition Of Care (Tcm) (HDF unscheduled) 01/22/2025 1:20 PM EDT Office Visit [facility] [address] [place] [phone] Zee Szymanski MD Maggot infestation (Primary Dx) 01/22/2025 Travel 01/17/2025 Orders Only [facility] [address] [place] [phone] Samantha Gonzales MD Open wound of lower leg, unspecified laterality, initial encounter (Primary Dx); Chronic venous stasis; Essential hypertension; Renal cell cancer, left (CMS/HCC) 01/15/[address] [address] Samantha Gonzales MD call back needed 01/12/2025 11:30 AM EDT Office Visit [address] [phone] Samantha Gonzales MD Diarrhea, unspecified type (Primary Dx); Increased urinary frequency; Anemia, unspecified type; Alcohol use, unspecified, uncomplicated; Essential hypertension; Dyslipidemia; Aneurysm of ascending aorta without rupture (CMS/HCC); Chronic venous stasis; Metabolic dysfunction-associat ed steatotic liver disease and increased alcohol intake (MetALD); Colitis; Venous stasis dermatitis of both lower extremities; Class 2 severe obesity due to excess calories with serious comorbidity and body mass index (BMI) of 35.0 to 35.9 in adult (CMS/HCC); Alcohol use disorder; Renal cell cancer, left (CMS/HCC); Anemia of chronic disease; Caregiver stress 01/12/2025 Travel 01/12/2025 Telephone [facility] [address] [place] [address] [phone] Samantha Gonzales MD Appointment Request from Last 3 Months Immunizations Immunization Administration Dates Next Due Hep A, Adult 04/13/2025,06/25/2024 Hep B, adult 04/13/2025,06/25/2024 Influenza Quadrivalent Adjuvanted 05/01/2022 Influenza injectable quadriv [...] Mass Index 35.24 04/13/2025 10:15 AM EDT Plan of Treatment Upcoming Encounters Date Type Department Care Team (Late st Contact Info) Description 05/14/2025 10:30 AM EDT Clinical Support [address] [address] Health Maintenance Due Date Last Done Comments CT Colonography 1960 FIT DNA/Cologuard 1960 FIT 1960 FOBT 1960 HIV Screening 1960 Sigmoidoscopy 1960 RSV Patients and Patients Aged 60 years or older (1 - Risk 60-74 years 1-dose series) 2021 Influenza Vaccine (#1) 2025 , 05/20/2023, 05/01/2022, Additional history exists Hepatitis B Vaccines (3 of 3 - Risk 3-dose series) 06/08/2025 04/13/2025, 06/25/2024 Alcohol/Substance Use Screening 06/25/2025 06/25/2024 Depression Screening 06/25/2025 06/25/2024, 06/25/20 24 Disability Screening 01/12/2026 01/12/2025 SDOH Screening 01/12/2026 01/12/2025 Tobacco Screening 04/13/2026 04/13/2025 Lipid Panel 07/02/2029 07/02/2024, 01/17, 11/03/2021 DTaP/Tdap/Td Vaccines (3 - Td or Tdap) 07/28/2032 07/28/2022, 07/21/2014, 08/19/2008 Colonoscopy 09/20/2033 09/20/2023 Colorectal Cancer Screening 09/20/2033 Zoster Vaccines Completed 06/12/2022, 05/20, 04/09/2022, Additional history exists Pneumococcal Vaccine: 50+ Years Completed 11/26/2022, 07/25/2018, 07/21/2014 Hepatitis C Screening Completed 01/28/2023 COVID-19 Vaccine Completed 06/25/2024, 09/2022, 02/09/2022, Additional history exists Hepatitis A Vaccines Completed 04/13/2025, 06/25/20 HIB Vaccines Aged Out No longer eligi ble based on patient's age to complete this topic HPV Vaccines Aged Out No longer eligi ble based on patient's age to complete this topic IPV Vaccines Aged Out No longer eligi ble based on patient's age to complete this topic Meningococcal B Vaccine Aged Out No l onger eligible based on patient's age to complete [...] Procedure Name Priority Date/Time Associated Diagnosis Comments MAGNESIUM Routine 02/08/2025 7:53 PM EDT URINALYSIS, COMPLETE, WITH REFLEX TO CULTURE Routine 02/08/2025 7:53 PM EDT HIGH SENSITIVITY TROPONIN I Routine 02/08/2025 1:58 PM EDT CREATINE KINASE, TOTAL Routine 02/08/2025 1:58 PM EDT MAGNESIUM Routine 02/08/2025 1:58 PM EDT BASIC METABOLIC PANEL Routine 02/08/2025 1:58 PM EDT HEPATIC FUNCTION PANEL Routine 02/08/2025 1:58 PM EDT CBC WITH AUTO DIFFERENTIAL Routine 02/08/2025 1:57 PM EDT XR CHEST 2 VIEWS Routine 02/08/2025 1:14 PM EDT XR CHEST 1 VIEW Routine 01/22/2025 3:19 PM EDT POCT URINALYSIS DIPSTICK Routine 01/12/2025 1:00 PM EDT Increased urinary frequency CULTURE, URINE, ROUTINE Routine 01/12/2025 12:48 PM EDT Increased urinary frequency LIPID PANEL WITH REFLEX TO DIRECT LDL Routine 07/02/2024 11:24 AM EST Essential hypertension Nausea vomiting and diarrhea HM COLONOSCOPY Routine 09/20/2023 HEPATITIS C AB W/REFL TO HCV RNA, QN, PCR Routine 01/28/2023 9:34 AM EDT Alcohol use disorder, severe, dependence (CMS/HCC) from Last 3 Months or Most Recently Relevant to Health Maintenance Results * (ABNORMAL) Urinalysis, Complete, with Reflex to Culture (02/08/2025 7:53 PM EDT) Color Urine Yellow [facility] Appearance Urine Clear [facility] PH 6.5 5.0 - 9.0 [facility] Glucose Urine UA Negative Negative mg/dL [facility] Urine Blood Negative Negative [facility] Specific [place] - Urine 1.010 1.005 - 1.025 [facility] Urine Protein 30 (1+)(A) Neg-Trace mg/dL [facility] Urine Ketones Negative Negative mg/dL [facility] Nitrite Urine Negative Negative [facility] Leukocyte Esterase Urine Negative Negative [facility] RBC Urine 0-2 0 - 2 /HPF [facility] Urine WBC 0-5 0 - 5 /HPF [facility] Urine Squamous Epithelial Cell 0-2 0 - 2 /HPF [facility] Urine Bacteria None Seen None Seen [facility] Hyaline Casts, Urine 0-2 0 - 2 /LPF [facility] 02/08/2025 7:53 PM EDT 02/08/2025 7:55 PM EDT Narrative [facility] - 02/08/2025 8:09 PM EDT [id number], Clean Catch Generic External Data Provider LAB URINE ORDERAB LES Final Result Performing Organization Address [facility]/ZIP Co de Phone Number [facility] [address] [place] [phone] * Magnesium (02/08/2025 7:53 PM EDT) Only the most recent of2 resultswithin the time period is included. Pathologist [facility] Magnesium 2.0 1.6 - 2.6 mg/dL [facility] 02/08/2025 7:53 PM EDT 02/08/2025 7:55 PM EDT Generic External Data Provider LAB BLOOD ORDERAB LES Final Result Performing Organization Address City/[facility]/ZIP Co de Phone Number [facility] [address] [place] [phone] * High Sensitivity Troponin I (02/08/2025 1:58 PM EDT) TROPONIN I HIGH SENSITIVITY 3.9 <3.5 - 35.0 ng/L [facility] Comment:The Erwin high sens itivity Troponin-I results should beused in conjunction with other diagnostic information suchas ECG, clinical observations and information, and patientsymptoms to aid in the diagnosis of [place]. 02/08/2025 1:58 PM EDT 02/08/2025 2:01 PM EDT us Generic External Data Provider LAB BLOOD ORDERAB LES Final Result Performing Organization Address [facility]/ZIP Co de Phone Number [facility] [address] [place] [phone] [phone] * Creatine Kinase, Total (02/08/2025 1:58 PM EDT) Creatine Kinase Total 63 38 - 174 U/L [facility] 02/08/2025 1:58 PM EDT 02/08/2025 2:01 PM EDT us Generic External Data Provider LAB BLOOD ORDERAB LES Final Result Performing Organization Address [facility] Co de Phone Number [facility] [address] [place] [address] [phone] * (ABNORMAL) Hepatic Function Panel (02/08/2025 1:58 PM EDT) Bilirubin, Total 2.1(H) 0.0 - 1.0 mg/dL [facility] Comment:Slight Icterus. Bilirubin, Direct 0.9(H) 0.0 - 0.5 mg/dL [facility] Comment:Slight Icterus. Aspartate Amino Transferase 57(H) 5 - 37 U/L [facility] Alanine Aminotransferase 13 0 - 40 U/L [facility] Total Protein 7.6 6.5 - 8.0 g/dL [facility] Albumin Level 4.0 3.5 - 5.0 g/dL [facility] Alkaline Phosphatase 137(H) 39 - 117 U/L [facility] 02/08/2025 1:58 PM EDT 02/08/2025 2:01 PM EDT us Generic External Data Provider LAB BLOOD ORDERAB LES Final Result Performing Organization Address [facility]/ZIP Co de Phone Number [facility] [address] [place] [phone] [phone] * (ABNORMAL) Basic Metabolic Panel (02/08/2025 1:58 PM EDT) Sodium 142 135 - 145 mmol/L [facility] Potassium 3.6 3.3 - 5.1 mmol/L [facility] Chloride 107 96 - 108 mmol/L [facility] Carbon Dioxide 20(L) 22 - 29 mmol/L [facility] Anion Gap 19 12 - 20 [facility] Urea Nitrogen (BUN) 9 9 - 16 mg/dL [facility] Creatinine, Serum 1.04 0.5 - 1.4 mg/dL [facility] Creatinine Clr Calc Pharmacy 80.8 [facility] Comment:eGFR (calculated fro m the MDRD study equation) and eCrCl(calculated from the Cockcroft-Gault equation) are based ondifferent parameters and may not yield comparable results.If eCrCl result is absurd, please check patient'sheight/weight. Estimated Glomerular Filt Rate >60 [facility] Comment:Chronic Kidney Disea se: Estimated GFR < 60 mL/min/1.19z4Nswksf Kidney Disease: Estimated GFR < 15 mL/min/1.73m2 Glucose 88 60 - 115 mg/dL [facility] Calcium 8.9 8.4 - 10.2 mg/dL [facility] 02/08/2025 1:58 PM EDT 02/08/2025 2:01 PM EDT us Generic External Data Provider LAB BLOOD ORDERAB LES Final Result [facility] [place] [phone] * (ABNORMAL) CBC auto differential (02/08/2025 1:57 PM EDT) Pathologist [facility] White Blood Count 6.4 4.8 - 10.8 X10*3/uL [facility] Red Blood Count 3.51(L) 4.60 - 5.80 X10*6/uL [facility] Hemoglobin 10.1(L) 14.0 - 18.0 g/dl [facility] Hematocrit 30.6(L) 42.0 - 52.0 % [facility] Mean Corpuscular Volume 87.2 80.0 - 98.0 fL [facility] Mean Corpuscular Hemoglobin 28.8 27.0 - 33.0 pg [facility] Mean Corpuscular HGB Conc 33.0 31.0 - 36.0 g/dl [facility] Red Cell Distribution Width 16.8(H) 11.0 - 16.0 % [facility] Platelet Count 63(L) 160 - 400 X10*3/uL [facility] Comment:Confirmed by smear. Mean Platelet Volume 8.1(L) 9.4 - 12.4 fL [facility] Neutrophils Percent Auto 72.3 45 - 73 % [facility] Imm Gran Pct Auto 0.5(H) 0.0 - 0.4 % [facility] Lymphocytes Percent Auto 19.5(L) 20 - 40 % [facility] Monocytes Percent Auto 6.1 2 - 11 % [facility] Eosinophils Percent Auto 0.8 0 - 4 % [facility] Basophils Percent Auto 0.8 0 - 2 % [facility] NRBC Pct Auto 0.0 0.0 - 0.2 /100WBC [facility] Neutrophils Absolute Auto 4.6 2.0 - 8.3 x10*3/uL [facility] Imm Gran Abs Auto 0.03 0.00 - 0.03 X10*3/uL [facility] Lymphocytes Absolute Auto 1.3 1.2 - 4.9 X10*3/uL [facility] Monocytes Absolute Auto 0.4 0.1 - 1.2 X10*3/uL [facility] Eosinophils Absolute Auto 0.1 0.0 - 0.4 X10*3/uL [facility] Basophils Absolute Auto 0.1 0.0 - 0.2 X10*3/uL [facility] NRBC Abs Auto 0.000 0.0 - 0.012 X10*3/uL [facility] 02/08/2025 1:57 PM EDT 02/08/2025 2:01 PM EDT us Generic External Data Provider LAB BLOOD ORDERAB LES Final Result [facility] [address] [place] [phone] * XR Chest 2 Views (02/08/2025 1:14 PM EDT) Anatomical Region Laterality Modality Chest Radiographic Paty ging 02/08/2025 1:14 PM EDT Narrative 02/08/2025 2:23 PM EDT [address] [address] XRay Report Signed Patient: Mohan Gonzalez MR#: [id number] : 1960 Acct:[id number] Age/Sex: 64 / M ADM Date: 02/08/25 Loc: .ED Attending Dr: Ordering Physician: Olivia Cochran Date of Service: 02/08/25 Procedure(s): XR chest 2V Accession Number(s): [id number] cc: Olivia Cochran; Samantha Gonzales MD EXAMINATION: XR CHEST CLINICAL INFORMATION: SOB COMPARISON: January 22, 2025. TECHNIQUE: 2 views of the chest were obtained. FINDINGS: No hyperinflation. No consolidation pleural effusion or pneumothorax. Cardiomediastinal silhouette size is normal. Calcified plaque thoracic aortic arch. Multilevel spondylosis. Patient's large body habitus. XR/XR chest 2V IMPRESSION: No acute airspace disease. Electronically signed by: Daniel Lundberg MD 02/08/2025 02:20 PM EDT Dictated By: Daniel Tejeda MD Signed By: <Electronically signed by Daniel Negrete MD in OV> 02/08/25 1420 DD/ 1314 TD/TT: 02/08/25 1416 Bottom Precipitator Operator: Procedure Note Donotuseinterpreter, Image - 02/08/[address] [address] XRay Report Signed Patient: Mohan Gonzalez AMR#: [id number] : 1960cct:[id number] Age/Sex: 64 / MADM Date: 02/08/25 Loc: HO.ED Attending Dr: Ordering Physician: Olivia Cochran Date of Service: 02/08/25 Procedure(s): XR chest 2V Accession Number(s): [id number] cc: Olivia Cochran; Samantha Gonzales MD EXAMINATION: XR CHEST CLINICAL INFORMATION: SOB COMPARISON: January 22, 2025. TECHNIQUE: 2 views of the chest were obtained. FINDINGS: No hyperinflation. No consolidation pleural effusion or pneumothorax. Cardiomediastinal silhouette size is normal. Calcified plaque thoracic aortic arch. Multilevel spondylosis. Patient's large body habitus. XR/XR chest 2V IMPRESSION: No acute airspace disease. Electronically signed by: Daniel Lundberg MD 02/08/2025 02:20 PM EDT Dictated By: Daniel Tejeda MD Signed By: <Electronically signed by Daniel Negrete MDin OV> 02/08/25 1420 DD/ 1314 TD/TT: 02/08/25 1416 Bottom Precipitator Operator: [facility] External Provider IMG XR PROCEDURES Final Result * XR Chest 1 View (01/22/2025 3:19 PM EDT) Anatomical Region Laterality Modality Chest Radiographic Paty ging 01/22/2025 3:19 PM EDT Narrative 01/22/2025 4:43 PM EDT [address] [address] XRay Report Signed Patient: Mohan Gonzalez MR#: [id number] : 1960 Acct:[id number] Age/Sex: 64 / M ADM Date: 01/22/25 Loc: HO.ED Attending Dr: Ordering Physician: Annie Huber DO Date of Service: 01/22/25 Procedure(s): XR chest 1V Accession Number(s): [id number] cc: Annie Huber DO; Samantha Gonzales MD EXAMINATION: XR CHEST CLINICAL INFORMATION: edema COMPARISON: 2024 TECHNIQUE: Frontal view of the chest was obtained. FINDINGS: Cardiac size is borderline enlarged Lungs are clear. There is pulmonary vascular crowding. Bony structures are unremarkable. XR/XR chest 1V IMPRESSION: Cardiac size is upper limits of normal Electronically signed by: Esteban Carlos MD 01/22/2025 04:41 PM EDT RP Dictated By: Esteban Carlos MD Signed By: <Electronically signed by Esteban Carlos MD in OV> 01/22/25 1641 DD/ 1519 TD/TT: 01/22/25 1620 Bottom Precipitator Operator: Procedure Note Donotuseinterpreter, Image - 01/22/[address] [address] XRay Report Signed Patient: Mohan Gonzalez AMR#: [id number] : 1960cct:[id number] Age/Sex: 64 / MADM Date: 01/22/25 Loc: .ED Attending Dr: Ordering Physician: Annie Huber DO Date of Service: 01/22/25 Procedure(s): XR chest 1V Accession Number(s): [id number] cc: Annie Huber DO; Samantha Gonzales MD EXAMINATION: XR CHEST CLINICAL INFORMATION: edema COMPARISON: 2024 TECHNIQUE: Frontal view of the chest was obtained. FINDINGS: Cardiac size is borderline enlarged Lungs are clear. There is pulmonary vascular crowding. Bony structures are unremarkable. XR/XR chest 1V IMPRESSION: Cardiac size is upper limits of normal Electronically signed by: Esteban Carlos MD 01/22/2025 04:41 PM EDT RP Dictated By: Esteban Carlos MD Signed By: <Electronically signed by Esteban Carlos MD in OV> 01/22/25 1641 DD/ 1519 TD/TT: 01/22/25 1620 Bottom Precipitator Operator: [facility] External Provider IMG XR PROCEDURES Final Result * (ABNORMAL) POCT Urinalysis (01/12/2025 1:00 PM EDT) Color, UA Brown Clarity, UA Cloudy Glucose, UA Negative Bilirubin, UA Trace Comment:Large Ketones, UA Positive Comment:40mg/dL Spec Grav, UA 1.025 Blood, UA Positive(A) Negative, None Detected Comment:Moderate pH, UA 6.0 Protein, UA Trace Comment:>=300mg/dL Urobilinogen, UA 1.0 Leukocytes, UA Trace Negative, Rare, Trace Nitrite, UA Positive(A) Negative, None Detected Appearance, UA Brown QC Media Lot # [id number] Lot# Expiration Date [id number] Urine 01/12/2025 1:00 PM EDT Samantha Gonzales MD POINT OF CARE TEST ENTER/EDIT OR DERABLES Final Result * Culture, Urine, Routine (01/12/2025 12:48 PM EDT) Urine Urine specimen obtained by clean catch procedure / Unknown 01/12/2025 12:48 PM EDT 01/12/2025 4:01 PM EDT Comment:UACC Narrative [facility] - 01/14/2025 8:17 AM EDT Proteus mirabilis Quant 50,000 to 100,000 cfu/mL Proteus mirabilis: Ampicillin <=2(S) Proteus mirabilis: Cefazolin (Urine) 4(S) Proteus mirabilis: Cefepime <=0.12(S) Proteus mirabilis: Ceftriaxone <=0.25(S) Proteus mirabilis: Ciprofloxacin <=0.06(S) Proteus mirabilis: Gentamicin <=1(S) Proteus mirabilis: Nitrofurantoin 128(R) Proteus mirabilis: Trimethoprim/Sulfamethoxazole <=20(S) Specimen Source: Urine clean catch Samantha Gonzales MD LAB MICROBIOLOGY - GENERAL ORDER FOUZIA Final Result Performing Organization Address [facility] Co de Phone Number [facility] [address] [place] [phone] * Lipid Panel with Reflex to Direct LDL (07/02/2024 11:24 AM EST) Triglycerides 83 <150 mg/dL [facility] Comment:Desirable Triglyceri de: less than 150 mg/dLBorderline High Triglyceride 150-199 mg/dLHigh Triglyceride: 200-499 mg/dLVery High Triglyceride: greater than or equal to 5OO mg/dL Cholesterol 150 <200 mg/dL [facility] Comment:Desirable Cholestero l: less than 200 mg/dLBorderline High Cholesterol: 200-239 mg/dLHigh Cholesterol: greater than 239 mg/dL LDL Cholesterol Calculated 68 <100 mg/dL [facility] Comment:Desirable LDL: less than 100 mg/dLNear Optimal/Above Optimal LDL: 110- 129 mg/dLBorderline High LDL: 130-159 mg/dLHigh LDL: 160-189 mg/dLVery High LDL: greater than or equal to 190 mg/dL HDL Cholesterol 66 >40 mg/dL [facility] Comment:Desirable HDL: great er than 40 mg/dL Note: This HDL assay may give artificially low results in patients with liver disease. Blood 07/02/2024 11:2 4 AM EST 07/02/2024 1:19 PM EST Samantha Gonzales MD LAB BLOOD ORDERABLES Final Resul t Performing Organization Address City/[facility]/ZIP Co de Phone Number [facility] [address] [place] [address] [phone] * Hm Colonoscopy (09/20/2023) Colonoscopy Normal Normal Historical Provider HEALTH MAINTENANCE Final Result * Hepatitis C Antibody with Reflex to HCV, RNA, Quantitative, Real-Time PCR (01/28/2023 9:34 AM EDT) Hepatitis C Antibody NON-REACT GENI NON-REACT GENI [employer] Index 0.04 <1.00 [employer] Comment: HCV antibody was non-reactive. There is no laboratory evidence of HCV infection. In most cases, no further action is required. However, if recent HCV exposure is suspected, a test for HCV RNA (test code 17558) is suggested. For additional information please refer to http://education.Luminal/faq/VBI11y7 (This link is being provided for informational/ educational purposes only.) Blood Venous blood specimen / Unknown 01/28/2023 9:34 AM EDT 01/28/2023 9:34 AM EDT Narrative [facility] - 01/28/2023 9:34 PM EDT FASTING:YES FASTING: YES Kerwin Mendoza MD LAB BLOOD ORDERABLES Final Resul t [facility] [address], [place] [address] [employer] [address] [place] [address] from Last 3 Months or Most Recently Relevant to Health Maintenance [place] [place] [address] C3 Care Teams Water Systems Designer Relationship Specialty Start Date End Date Samantha Gonzales MD [address] [place] [address] PCP - General Family Medicine 07/09/13
--- OUTSIDE RECORDS SUMMARY | 2025-04-13 12:10 | XMS_ITS | Encounter Summary ---
Author Organization [employer] Address [address] [place] [address] 7t [place] [address] Care Team Providers Care Die Cut Operator Name Role Phone Samantha Gonzales MD Primary Care Provider [phone] Reason for Referral * Imaging (Routine) - Closed Specialty Diagnoses / Procedures Referred By Contlarissa silva Referred To Contact Diagnoses Thyroid nodule Procedures US Guided Thyroid Biopsy Samantha Gonzales MD [address] [place] [address] Phone: tel: fax: [address] Phone: tel: fax: Referral ID Status Reason Start Date Expiration Date Visits Re quested Visits Authorized [id number] Closed 11/14/2022 05/13/2023 1 1 Encounter Details Date Type Department Care Team (Late st Contact Info) Description 11/14/2022 Orders Only [facility] [address] [place], [place] [phone] Samantha Gonzales MD [address] [place] [address] Thyroid nodule (Primary Dx) Social [...] Description 05/14/2025 10:30 AM EDT Clinical Support [facility] [address] [place] [address] Scheduled Orders Name Type Priority Associated Diagnoses Orde r Schedule US Guided Thyroid Biopsy Imaging Routine Thyroid nodule Expected: 11/14/2022 (Approximate), Expires: 11/15/2023 documented as of this encounter Visit Diagnoses Diagnosis Thyroid nodule- Primary Nontoxic uninodular goiter documented in this encounter Care Teams Die Cut Operator Relationship Specialty Start Date End Date Samantha Gonzales MD [address] [place] [address] PCP - General Family Medicine 07/09/13 [facility] 05/17/24 03/29/25 documented as of this encounter
--- OUTSIDE RECORDS SUMMARY | 2025-04-13 12:10 | XMS_ITS | Clinical Summary ---
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 -Last seen by [facility] Wound care in October 2021 -usually discharged [...] Plan: -multifactorial - nutritional, CKD -following with [facility] meter maintenance person Aneurysm of ascending aorta 05/29/2016 Overview (11/07/2022): Last Assessment & Plan: -Most recent echo on 04/12/21, EF 60-65%, dilated ascending aorta 41mm -Echo on 04/05/20, EF 55-60%, dilated ascending aorta 42 mm, -Echo on 04/01/19 EF 60-65%, Aortic root dimension 37~43mm -Seen by his fast food manager, Dr. Claudio on n 07/11/22 -Pt advised [...] Insurance Medicaid [place] Medicaid [place] Care Teams Piece Goods Packer Relationship Specialty Start Date End Date Samantha Gonzales MD PCP - General 08/29/20
--- OUTSIDE RECORDS SUMMARY | 2025-04-13 12:10 | XMS_ITS | Encounter Summary ---
Author Organization [email or web address] Address [address] [facility] 7t [place] [address] Care Team Providers Care Hardwood Floor Installation Helper Name Role Phone Samantha Gonzales MD Primary Care Provider [phone] Reason for Visit * Reason Onset Date Comments Nurse Triage 06/22/2024 Encounter Details Date Type Department Care Team ([facility] st Contact Info) Description 06/22/2024 Telephone [facility] [address] [place], [place] [phone] Samantha Gonzales MD [address] [place], [place] [phone] Nurse Triage Social History Tobacco Use Types [...] AM EDT documented as of this encounter Functional Status * Over the past 2 weeks, how often have you been bothered by any of the following problems? Question Answer Date of Assessment Author Patient Health Questionnaire -2 Score 0 06/25/2024 11:09 AM Xiao Palma [place] * Over the past 2 weeks, how often have you been bothered by any of the following problems? Question Answer Date of Assessment Author Little interest or pleasure in doing things Not at all 06/25/2024 11:09 AM Xiao Palma [place] Feeling down, depressed, or hopeless Not at all 06/25/2024 11:09 AM Xiao Palma [place] Trouble falling or staying asleep, or sleeping too much Not at all 06/25/2024 11:09 AM Susan Christensen [place] Feeling tired or having little energy Not at all 06/25/2024 11:09 AM Xiao Palma [place] Poor appetite or overeating Not at all 06/25/2024 11 :09 AM Susan Palma [place] Feeling bad about yourself - or that you are a failure or have let yourself or your family down Not at all 06/25/2024 11:09 AM Xiao Palma [place] Trouble concentrating on things, such as reading the newspaper or watching television Not at all 06/25/2024 11:09 AM Xiao Palma [place] Moving or speaking so slowly that other people could have noticed? Or the opposite - being so fidgety or restless that you have been moving around a lot more than usual. Not at all 06/25/2024 11:09 AM JASVIR calderon, KERRI Davis Thoughts that you would be better off or hurting yourself in some way Not at all 06/25/2024 11:09 AM Denis Palma MA Patient Health Questionnaire-9 Score 0 06/25/2024 11:09 AM Elizabeth Palma MA documented as of this encounter Miscellaneous Notes [...] to Pt reports that a person from [facility] comes every 2-3 days and changes dressing [...] booking. Pt will have another visit with [facility] prior to apt. Protocol Used: Wound Infection [...] Description 05/14/2025 10:30 AM EDT Clinical Support [facility] [address] [place] [address] documented as of this encounter Visit Diagnoses Not on filedocumented in this encounter Additional Health Concerns Assessment Noted Time PHQ-9 Depression Total Score: 3 12/15/19 23 1:37 PM EDT documented as of this encounter Care Teams Hardwood Floor Installation Helper Relationship Specialty Start Date End Date Samantha Gonzales MD [address] [place] [address] PCP - General Family Medicine 07/09/13 [facility] 05/17/24 03/29/25 documented as of this encounter
--- OUTSIDE RECORDS SUMMARY | 2025-04-13 12:11 | XMS_ITS | Encounter Summary ---
Author Organization Located Within [facility] Address [address] [place] [address] Phone Care Team Providers Care Director Maternal Child Name Role Phone Vito Maki MD Primary Care Provider [phone] Encounter Details Date Type Department Care Team (Late st Contact Info) Description 01/29/2022 Transcribe Orders [facility] [address] [place] [address] Vito Maki MD [address] [facility], [address] [place] [address] [email or web address] Diagnosis unknown (Primary Dx) Social History Tobacco Use Types Packs/Day Years Used Date Smoking Tobacco: Never Assessed Sex and Gender Information Value Date Recorded Sex Assigned at Not on file Legal Sex Male 3:11 PM EDT Gender Identity Not on file Sexual Orientation Not on file documented as of this encounter Plan of Treatment Not on file documented as of this encounter Results * (ABNORMAL) CBC (01/29/2022 7:00 AM EDT) WBC 10.18 4.00 - 11.00 K/uL [facility] RBC 3.91 3.90 - 5.69 M/uL [facility] HGB 9.1(L) 12.4 - 17.3 g/dL [facility] HCT 30.6(L) 37.0 - 51.0 % [facility] PLT 302 140 - 430 K/uL [facility] MCV 78.3 78.0 - 97.0 fL [facility] MCH 23.3(L) 25.0 - 33.0 pg [facility] MCHC 29.7(L) 32.0 - 36.0 g/dL [facility] RDW 16.7(H) 11.0 - 15.0 % [facility] MPV 9.4 8.4 - 12.8 fl [facility] NRBC 0.00 0 /100 WBCs [facility] ABSOLUTE NRBC 0.00 0 K/uL [facility] Blood 01/29/2022 7:00 AM EDT 01/29/2022 4:20 PM EDT us Vito Maki MD LAB BLOOD ORDERABLES Final Resul t [facility] [address] [place] [address] * (ABNORMAL) Comprehensive metabolic panel (01/29/2022 7:00 AM EDT) SODIUM 139 133 - 146 mmol/L [facility] POTASSIUM 3.7 3.3 - 5.1 mmol/L [facility] Comment:Specimen slightly he molyzed, result may be falsely elevated. CHLORIDE 95(L) 96 - 108 mmol/L [facility] CO2 26 21 - 35 mmol/L [facility] BUN 42(H) 6 - 19 mg/dL [facility] CREATININE 1.20 0.5 - 1.5 mg/dL [facility] GLUCOSE 110(H) 70 - 99 mg/dL [facility] ALBUMIN 3.8(L) 3.9 - 4.8 g/dL [facility] TOTAL PROTEIN 7.2 6.5 - 8.0 g/dL [facility] CALCIUM 9.3 8.4 - 10.3 mg/dL [facility] ALKALINE PHOSPHATASE 120(H) 39 - 117 U/L [facility] TOTAL BILIRUBIN 0.6 0.0 - 1.2 mg/dL [facility] AST 21 0 - 37 U/L [facility] ALT 11 0 - 40 U/L [facility] GLOBULIN 3.4 1 - 4.8 g/dL [facility] EGFR 69 >59 mL/min/1.7 3m2 [facility] Comment:Estimated glomerular filtration rate calculated using the CKD-EPI refit equation. ANION GAP 22(H) 10 - 20 mmol/L [facility] Blood 01/29/2022 7:00 AM EDT 01/29/2022 4:20 PM EDT us Vito Maki MD LAB BLOOD ORDERABLES Final Resul t [address] [address] documented in this encounter Visit Diagnoses Diagnosis Diagnosis unknown- Primary documented in this encounter Care Teams Director Maternal Child Relationship Specialty Start Date End Date Vito Maki MD [email or web address] PCP - General Family Medicine 01/29/22 documented as of this encounter Additional Source Comments The information contained in this document represents components of the legal health record. It is not the complete legal health record.Located Within [facility]
--- OUTSIDE RECORDS SUMMARY | 2025-04-13 12:11 | XMS_ITS | Encounter Summary ---
Author Organization [email or web address] Address [address] [facility] 7t [place] [address] Care Team Providers Care Irrigation System Installer Name Role Phone Samantha Gonzales MD Primary Care Provider Reason for Referral * Consultation (Routine) - Canceled Specialty Diagnoses / Procedures Referred By Mildred t Referred To Contact Pharmacy Diagnoses Essential hypertension Samantha Gonzales MD [address] [place] [address] Phone: tel: fax: Referral ID Status Reason Start Date Expiration Date V isits Requested Visits Authorized [id number] Canceled Consult and Treat 01/29/2025 01/29/2026 6 6 * Consultation (Routine) - Pending Review Specialty Diagnoses / Procedures Referred By Contac t Referred To Contact Pharmacy Diagnoses Essential hypertension Renal cell cancer, left (CMS/HCC) Samantha Gonzales MD [address] [place] [address] Phone: tel: fax: Referral ID Status Reason Start Date Expiration Date Visits Requested Visits Authorized [id number] Pending Review Continuity of Care 01/29/2025 01/29/2026 6 6 * Consultation (Routine) - Authorized Specialty Diagnoses / Procedures Referred By Contac t Referred To Contact Wound Care Diagnoses Open wound of lower leg, unspecified laterality, initial encounter Chronic venous stasis Samantha Gonzales MD [address] [place] [address] Phone: tel: fax: [facility] [address] [place], [place] Phone: tel: fax: Referral ID Status Reason Start Date Expiration Date Visits Requested Visits Authorized [id number] Authorized Specialty Services Required 01/18/2025 01/18/2026 12 12 Encounter Details Date Type Department Care Team (Late st Contact Info) Description 01/17/2025 Orders Only [facility] [address] [place] [phone] Samantha Gonzales MD [address] [place] [address] Open wound of lower leg, unspecified laterality, initial encounter (Primary Dx); Chronic venous stasis; Essential hypertension; Renal cell cancer, left (CMS/HCC) Social History Tobacco Use Types Packs/Day Years [...] Description 05/14/2025 10:30 AM EDT Clinical Support [facility] [address] [place] [phone] Pending Results Name Type Priority Associated Diagnoses Date /Time Referral to Wound Clinic Outpatient Referral Routine Open wound of lower leg, unspecified laterality, initial encounter Chronic venous stasis 01/18/2025 Scheduled Referrals Name Type Priority Associated Diagnoses Orde r Schedule Referral to Wound Clinic Outpatient Referral Routine Open wound of lower leg, unspecified laterality, initial encounter Chronic venous stasis Expected: 01/17/2025 (Approximate), Expires: 01/17/2026 Referral to Pharmacy MTM Outpatient Referral Routine Essential hypertension Renal cell cancer, left (CMS/HCC) Ordered: 01/29/2025 Referral to Pharmacy CDTM Outpatient Referral Routine Essential hypertension Ordered: 01/29/2025 documented as of this encounter Procedures Procedure Name Priority Date/Time Associated Diagnosis Comments XR CHEST 1 VIEW Routine 01/22/2025 3:19 PM EDT documented in this encounter Results * XR Chest 1 View (01/22/2025 3:19 PM EDT) Anatomical Region Laterality Modality Chest Radiographic Paty ging 01/22/2025 3:19 PM EDT Narrative 01/22/2025 4:43 PM EDT [address] [address] XRay Report Signed Patient: Mohan Gonzalez MR#: [id number] : 1960 Acct:[id number] Age/Sex: 64 / M ADM Date: 01/22/25 Loc: HO.ED Attending Dr: Ordering Physician: Annie Huber DO Date of Service: 01/22/25 Procedure(s): XR chest 1V Accession Number(s): [id number] cc: Annie Huber DO; Samantha Gonzales MD EXAMINATION: XR CHEST CLINICAL INFORMATION: edema COMPARISON: 2024 TECHNIQUE: Frontal view of the chest was obtained. FINDINGS: Cardiac size is borderline enlarged Lungs are clear. There is pulmonary vascular crowding. Bony structures are unremarkable. XR/XR chest 1V IMPRESSION: Cardiac size is upper limits of normal Electronically signed by: Esteban Carlos MD 01/22/2025 04:41 PM EDT Dictated By: Esteban Carlos MD Signed By: <Electronically signed by Esteban Carlos MD in OV> 01/22/25 1641 DD/ 1519 TD/TT: 01/22/25 1620 Alterations Sewer: Procedure Note Donotuseinterpreter, Image - 01/22/[address] [address] XRay Report Signed Patient: Mohan Gonzalez AMR#: [id number] : 1960cct:[id number] Age/Sex: 64 / MADM Date: 01/22/25 Loc: .ED Attending Dr: Ordering Physician: Annie Huber DO Date of Service: 01/22/25 Procedure(s): XR chest 1V Accession Number(s): [id number] cc: Annie Huber DO; Samantha Gonzales MD [...] 01/22/25 1641 DD/ 1519 TD/TT: 01/22/25 1620 Alterations Sewer: [facility] External Provider IMG XR PROCEDURES Final Result documented in this encounter Visit Diagnoses Diagnosis Open wound of lower leg, unspecified laterality, initial encounter- Primary Chronic venous stasis Essential hypertension Unspecified essential hypertension Renal cell cancer, left (CMS/HCC) documented in this encounter Additional Health Concerns Assessment Noted Time PHQ-9 Depression Total Score: 0 06/25/20 24 11:09 AM EST documented as of this encounter Care Teams Irrigation System Installer Relationship Specialty Start Date End Date Samantha Gonzales MD [address] [place] [address] PCP - General Family Medicine 07/09/13 [facility] [address] 05/17/24 03/29/25 documented as of this encounter
--- OUTSIDE RECORDS SUMMARY | 2025-04-13 12:11 | XMS_ITS | Encounter Summary ---
Author Organization [employer] Address [address] [facility] 7t [place] [address] Care Team Providers Care Overlock Operator Name Role Phone Samantha Gonzales MD Primary Care Provider [phone] Reason for Visit * Reason Onset Date Comments OV 01/2601/24/2024 Encounter Details Date Type Department Care Team ([facility] st Contact Info) Description 01/24/2024 Telephone [facility] [address] [place], [place] [phone] Samantha Gonzales MD [address] [place], [place] [phone] OV 01/26 Social History Tobacco Use Types [...] state he is currently in rehab in [place] and due to a set back pt does not have any transportation to make it to [place] on Saturday. If any questions please contact pt at [phone]. documented in this encounter Plan of Treatment Upcoming Encounters Date Type Department Care Team (Late st Contact Info) Description 05/14/2025 10:30 AM EDT Clinical Support [facility] [address] [place] [address] documented as of this encounter Visit Diagnoses Not on filedocumented in this encounter Additional Health Concerns Assessment Noted Time PHQ-9 Depression Total Score: 3 12/15/19 23 1:37 PM EDT documented as of this encounter Care Teams Overlock Operator Relationship Specialty Start Date End Date Samantha Gonzales MD [address] [place] [address] PCP - General Family Medicine 07/09/13 [facility] 05/17/24 03/29/25 documented as of this encounter
--- OUTSIDE RECORDS SUMMARY | 2025-04-13 12:11 | XMS_ITS | Encounter Summary ---
Author Organization [employer] Address [address] [facility] 7t [place] [address] Care Team Providers Care Project Manager/Team Coach Name Role Phone Samantha Gonzales MD Primary Care Provider Reason for Visit * Reason Onset Date Comments Referral 04/12/2025 Encounter Details Date Type Department Care Team ([facility] st Contact Info) Description 04/12/2025 Telephone [facility] [address] [place], [place] [phone] Samantha Gonzales MD [address] [place], [place] [phone] Referral Social History Tobacco Use Types Packs/Day Years [...] Telephone Encounter - Marcella Wong RN - 04/12/2025 1:04 PM EDT TC placed to the pt and LVM to call back the office regarding message below * Telephone Encounter - Satish Hernández - 04/12/2025 11:40 AM EDT Tc from pt requesting a referral for a kidney doctor due to his kidney being removed and stature being opened. Contact pt at [phone] documented in this encounter Plan of Treatment Upcoming Encounters Date Type Department Care Team (Late st Contact Info) Description 05/14/2025 10:30 AM EDT Clinical Support [facility] [address] [place] [phone] documented as of this encounter Visit Diagnoses Not on filedocumented in this encounter Additional Health Concerns Assessment Noted Time PHQ-9 Depression Total Score: 0 06/25/20 24 11:09 AM EST documented as of this encounter Care Teams Project Manager/Team Coach Relationship Specialty Start Date End Date Samantha Gonzales MD [address] [place] [address] PCP - General Family Medicine 07/09/13 documented as of this encounter
--- OUTSIDE RECORDS SUMMARY | 2025-04-13 12:11 | XMS_ITS | Encounter Summary ---
Author Organization [employer] Address [address] [facility] [address] 7t [place] [address] Care Team Providers Care Silk Screen Operator Name Role Phone Samantha Gonzales MD Primary Care Provider [phone] Encounter Details Date Type Department Care Team (Latest Contact Info) Description 04/13/2025 Travel Social History Tobacco Use Types Packs/Day [...] Description 05/14/2025 10:30 AM EDT Clinical Support [facility] [address] [place] [address] documented as of this encounter Visit Diagnoses Not on filedocumented in this encounter Additional Health Concerns Assessment Noted Time PHQ-9 Depression Total Score: 0 06/25/20 24 11:09 AM EST documented as of this encounter Care Teams Silk Screen Operator Relationship Specialty Start Date End Date Samantha Gonzales MD [address] [place] [address] PCP - General Family Medicine 07/09/13 documented as of this encounter
--- OUTSIDE RECORDS SUMMARY | 2025-04-13 12:11 | XMS_ITS | Clinical Summary ---
Author Organization [facility] Address [address] [place] [address] [place] [address] Phone Care Team Providers Care Bioprocess Development Engineer Name Role Phone Vito Maki MD Primary Care Provider [phone] Social History Tobacco Use Types Packs/Day Years [...] file Medical Devices Not on file Insurance [facility] C3 ACO C3 ACO C3 ACO C3 [place] [id number] [place] [address] [address] [place] [address] [place] [address] [facility] [place] [phone] [facility] C3 ACO Care Teams Bioprocess Development Engineer Relationship Specialty Start Date End Date Vito Maki MD [email or web address] PCP - General Family Medicine 01/29/22 Additional Source Comments The information contained in this document represents components of the legal health record. It is not the complete legal health record.[facility]
--- OUTSIDE RECORDS SUMMARY | 2025-04-13 12:11 | XMS_ITS | Encounter Summary ---
Author Organization [employer] Address [address] [facility] 7t [place] [address] Care Team Providers Care Hot Man Name Role Phone Samantha Gonzales MD Primary Care Provider [phone] Reason for Visit * Reason Onset Date Comments Appointment Request 01/12/2025 Encounter Details Date Type Department Care Team ([facility] st Contact Info) Description 01/12/2025 Telephone [facility] MEDICINE [address] [place], [place] [phone] Samantha Gonzales MD [address] [place], [place] [phone] Appointment Request Social History Tobacco Use Types Packs/Day Years [...] this encounter Functional Status * Over the last 2 weeks, how often have you been bothered by any of the following problems? Question Answer Date of Assessment Author Feeling nervous, anxious, or on edge 1 12/18 1:02 PM EDT Nicole Broussard MA Not being able to stop or co ntrol worrying 0 01/12/2025 1:02 PM EDT Nicole Broussard MA Worrying too much about diff erent things 1 01/12/2025 1:02 PM EDT Nicole Broussard MA Trouble relaxing 1 01/12/2025 1:02 PM EDT B Nicole sanchez MA Being so restless that it is hard to sit still 1 01/12/2025 1:02 PM EDT Nicole Broussard MA Becoming easily annoyed or irritable 1 12/18 1:02 PM EDT Nicole Broussard MA Feeling afraid as if somethi ng awful might happen 0 01/12/2025 1:02 PM EDT Nicole Broussard MA MILO-7 Total Score 5 01/12/2025 1:02 PM EDT Nicole Broussard MA documented as of this encounter Miscellaneous Notes * Telephone Encounter - Vidal Mckee - 01/12/2025 8:21 AM EDT Tc from pt requesting to reschedule appointment for follow up due to having another appointment [facility]. Please return call to reschedule 01/12 appointment [phone] documented in this encounter Plan of Treatment Upcoming Encounters Date Type Department Care Team (Late st Contact Info) Description 05/14/2025 10:30 AM EDT Clinical Support [facility] MEDICINE [address] [place] [address] documented as of this encounter Visit Diagnoses Not on filedocumented in this encounter Additional Health Concerns Assessment Noted Time PHQ-9 Depression Total Score: 0 06/25/20 24 11:09 AM EST documented as of this encounter Care Teams Hot Man Relationship Specialty Start Date End Date Samantha Gonzales MD [address] [place] [address] PCP - General Family Medicine 07/09/13 [facility] 05/17/24 03/29/25 documented as of this encounter
--- OUTSIDE RECORDS SUMMARY | 2025-04-13 12:11 | XMS_ITS | Encounter Summary ---
Author Organization [employer] Address [address] [facility] 7t [place] [address] Care Team Providers Care Crown Pouncer Name Role Phone Samantha Gonzales MD Primary Care Provider [phone] Reason for Visit * Reason Onset Date Comments visiting nurse referral 04/13/2025 Encounter Details Date Type Department Care Team ([facility] st Contact Info) Description 04/13/2025 Telephone [facility] MEDICINE [address] [place], [place] [phone] Samantha Gonzales MD [address] [place], [place] [phone] visiting nurse referral Social History Tobacco Use Types Packs/Day Years [...] Miscellaneous Notes * Telephone Encounter - Karyn Patel RN - 04/13/2025 11:24 AM EDT Spoke with PCP Dr Gonzales in office, generated visiting nurse referral for wound care to lower leftabdomen/flank. Pt discharged from [facility] on 03/25/25, will send VNA referral back to this agency once office note finished. documented in this encounter Plan of Treatment Upcoming Encounters Date Type Department Care Team (Late st Contact Info) Description 05/14/2025 10:30 AM EDT Clinical Support [facility] MEDICINE [address] [place], [place] [phone] documented as of this encounter Visit Diagnoses Not on filedocumented in this encounter Additional Health Concerns Assessment Noted Time PHQ-9 Depression Total Score: 0 06/25/20 24 11:09 AM EST documented as of this encounter Care Teams Crown Pouncer Relationship Specialty Start Date End Date Samantha Gonzales MD [address] [place] [address] PCP - General Family Medicine 07/09/13 documented as of this encounter
[2025-04-13 13:12] LABS: MANUAL DIFF FLAG NO
[2025-04-13 13:26] LABS: Hematocrit 30.9 % (42.0-52.0); Hemoglobin 10.0 g/dl (14.0-18.0); Imm Gran Abs Auto 0.01 X10*3/uL (0.00-0.03); Imm Gran Pct Auto 0.2 % (0.0-0.4); Lymphocytes Absolute Auto 2.0 X10*3/uL (1.2-4.9); Mean Corpuscular HGB Conc 32.4 g/dl (31.0-36.0); Mean Corpuscular Hemoglobin 29.8 pg (27.0-33.0); Mean Corpuscular Volume 92.0 fL (80.0-98.0); NRBC Abs Auto 0.000 X10*3/uL (0.0-0.012); NRBC Pct Auto 0.0 /100WBC (0.0-0.2); Platelet Count 132 X10*3/uL (160-400); Red Blood Count 3.36 X10*6/uL (4.60-5.80); White Blood Count 6.1 X10*3/uL (4.8-10.8)
[2025-04-13 13:41] LABS: Alanine Aminotransferase 9 U/L (0-40); Albumin Level 3.8 g/dL (3.5-5.0); Alkaline Phosphatase 125 U/L (39-117); Anion Gap 14 (12-20); Aspartate Amino Transferase 31 U/L (5-37); Blood Urea Nitrogen 14 mg/dL (9-16); Calcium 8.7 mg/dL (8.4-10.2); Carbon Dioxide 25 mmol/L (22-29); Chloride 111 mmol/L (96-108); Estimated Glomerular Filt Rate > 60; Magnesium 1.8 mg/dL (1.6-2.6); Potassium 4.2 mmol/L (3.3-5.1); Sodium 146 mmol/L (135-145); Total Protein 7.3 g/dL (6.5-8.0)
[2025-04-13 13:44] LABS: Alanine Aminotransferase 10 U/L (0-40); Albumin Level 3.8 g/dL (3.5-5.0); Alkaline Phosphatase 125 U/L (39-117); Aspartate Amino Transferase 32 U/L (5-37); Cholesterol 169 mg/dL (<200); HDL Cholesterol 69 mg/dL (>40); Total Protein 7.3 g/dL (6.5-8.0); Triglycerides 70 mg/dL (<150)
[2025-04-13 13:55] LABS: B Type Natriuretic Peptide 400 pg/mL (<100)
[2025-04-13 15:55] LABS: Reflex LDLD? No
== END 2025-04-13 11:15 | disposition home or self-care (01) ==
LOC: HO.HHCL 11:14
PROVIDERS: Internal Medicine Nephrology; Nurse Practitioner Primary Care; PCP Family Medicine; Referring Provider Emergency Medicine; Visit Provider Family Medicine
DX: E78.5 Hyperlipidemia, unspecified (principal); R19.7 Diarrhea, unspecified; D64.9 Anemia, unspecified; I89.0 Lymphedema, not elsewhere classified; D69.6 Thrombocytopenia, unspecified
CPT/HCPCS: 36415; 80053; 80061; 80076; 82248; 83735; 83880; 84443; 85025

== ENCOUNTER 2025-04-21 11:26 | Outpatient (AMB) | payer MEDICAID, SELFPAY ==
--- NOTE | 2025-04-21 11:46 | HO.NEPHOV_ITS ---
Vital Signs 04/21/25 11:47 Height 5 ft 7 in Weight 217 lb 8 oz BMI 34.1 BP 140/80 H Blood Pressure Location Lt brachial Position Sitting Intake Visit Reasons: 3 MO FU-Conf Timekeeping Supervisor Required: No Accompanied by: Self / Same As Patient Allergies azithromycin (AZITHROMYCIN) Allergy (Severe, Verified 04/21/25 11:47) FACIAL SWELLING hydrochlorothiazide (HCTZ) Allergy (Severe, Verified 04/21/25 11:47) Facial Swelling HPI Comments Details: Geoffrey was seen in follow-up of his CKD and hypertension. He had a left renal mass (Dr. Sow) & underwent partial left nephrectomy. He has history of rhabdomyolysis and had POLLY 5 years ago. He was on dialysis at that time and had come off dialysis on 12/20/2017. He does not have any hematuria, night sweats, weight loss, fever. His blood pressure has been at goal. He is off diuretics. He avoids nonsteroidal anti-inflammatories. His renal functions had been close to baseline. [facility] Medical History Abdominal wall abscess at site of surgical wound CKD stage 3a, GFR 45-59 ml/min Colitis Renal mass Renal cell carcinoma Alcohol use disorder Hyperlipidemia Ascending aortic aneurysm Alcoholic steatohepatitis Seborrheic dermatitis DEBORAH (obstructive sleep apnea) History of rhabdomyolysis Hx of lower gastrointestinal bleeding Hx of sepsis History of DVT of lower extremity Chronic ulcer of leg Chronic venous stasis HTN (hypertension) Anemia Anemia Surgical History H/O partial nephrectomy Hx of colonoscopy Family History Mother Dementia Maternal Grandmother Dementia Social History Household Members: Family Household Members Other:: mother who has dementia Housing: House Housing Other:: 4 stairs to get into house. Pt lives in basement Do you presently have visiting nurse or other home services: Yes Alcohol intake: current Alcohol intake frequency: 0-2 drinks per day Alcohol type: hard liquor Comment: pt refused socks Patient Tobacco Use Status: Never used Tobacco Advance Directives Date on File: 04/13/22 service: No Current occupational status: disabled Review of Systems Const All systems reviewed & are unremarkable except as noted in HPI and below Physical Exam Vital Signs: Last Vital Signs BP 140/80 H 04/21/25 11:47 BMI result Body Mass Index 34.1 Const General: comfortable and no acute distress Orientation/consciousness: patient oriented x3 HEENT Head: Yes normocephalic Mouth: Normal oral and palatal mucosa present Eyes EOM: EOMs intact bilaterally Neck Neck: Yes supple Resp Auscultation: clear to auscultation bilaterally Cardio Jugular venous distension: no JVD Rate: regular rate GI Palpation (GI): Soft to palpation Auscultation: normal bowel sounds General: Yes no CVA tenderness Back/Spine/Pelvis Back: no CVA tenderness Skin General skin exam: no rashes or lesions noted Neuro General: patient oriented x3 and moves all extremities Extrem General: Yes no pedal edema Results Reviewed Nephrology Results: Hgb, (14.0-18.0) 10.0 g/dl L 04/13/25 WBC, (4.8-10.8) 6.1 X10*3/uL 04/13/25 Plt Count, (160-400) 132 X10*3/uL L Δ 04/13/25 Sodium, (135-145) 146 mmol/L H 04/13/25 Potassium, (3.3-5.1) 4.2 mmol/L 04/13/25 Chloride, (96-108) 111 mmol/L H 04/13/25 Carbon Dioxide, (22-29) 25 mmol/L 04/13/25 BUN, (9-16) 14 mg/dL 04/13/25 Creatinine, (0.5-1.4) 1.19 mg/dL 04/13/25 Calcium, (8.4-10.2) 8.7 mg/dL 04/13/25 Urine Protein, (Neg-Trace) Trace mg/dL 03/13/25 Assessment & Plan Assessment & Plan (1) HTN (hypertension): Code(s): I10 - Essential (primary) hypertension Category: Medical Qualifiers: Hypertension type: primary hypertension Qualified Code(s): I10 - Essential (primary) hypertension (2) CKD stage 3a, GFR 45-59 ml/min: Code(s): N18.31 - Chronic kidney disease, stage 3a Category: Medical Plan Geoffrey has history of POLLY needing dialysis 6 years ago . His renal functions became worse since left partial left nephrectomy but has settled to baseline after holding losartan. He can continue torsemide 20 mg every other day. He should avoid nonsteroidal anti-inflammatories. He should maintain good hydration. I plan to add SGLT2i with time . Blood work ordered for follow-up. I answered all his questions and concerns Orders: Orders Protein Creatinine Ratio, Ur 3 Months I10 - Essential (primary) hypertension, N18.31 - Chronic kidney disease, stage 3a Creatinine 3 Months I10 - Essential (primary) hypertension, N18.31 - Chronic kidney disease, stage 3a Blood Urea Nitrogen 3 Months I10 - Essential (primary) hypertension, N18.31 - Chronic kidney disease, stage 3a Calcium 3 Months I10 - Essential (primary) hypertension, N18.31 - Chronic kidney disease, stage 3a Electrolytes 3 Months I10 - Essential (primary) hypertension, N18.31 - Chronic kidney disease, stage 3a Coding Level of Care Code Est Pt Level 4 (71296) Diagnoses Primary hypertension I10 Hypertension type: primary hypertension CKD stage 3a, GFR 45-59 ml/min N18.31
[2025-04-21 11:47] VITALS: BP 140/80; BMI 34.1
== END 2025-04-21 12:07 | disposition home or self-care (01) ==
LOC: HO.HKA 11:27
PROVIDERS: PCP Family Medicine; Visit Provider Internal Medicine Nephrology
DX: I10 Essential (primary) hypertension (principal); N18.31 Chronic kidney disease, stage 3a
CPT/HCPCS: 99214

== ENCOUNTER → 2025-04-21 11:26 | Outpatient (BNVA) | payer MEDICAID, SELFPAY | PROVIDERS: PCP Family Medicine; Visit Provider Internal Medicine Nephrology | DX: N18.31 Chronic kidney disease, stage 3a (principal); I10 Essential (primary) hypertension | CPT/HCPCS: 99212 ==

== ENCOUNTER 2025-04-22 09:19 | Outpatient (REF) | payer MEDICAID, SELFPAY ==
--- NOTE | ~2025-04-22 | US_ITS ---
EXAMINATION: US COMPLETE ABDOMEN WITH LIVER ELASTOGRAPHY CLINICAL INFORMATION: Chronic liver disease, alcohol abuse COMPARISON: None available. TECHNIQUE: Real-time imaging of the abdominal viscera. Noninvasive ultrasound liver fibrosis assessment is performed using Liudmila ElastPQ point quantification shear wave elastography (pSWE) with a C5-2 MHz transducer. Multiple elastography samples are obtained. FINDINGS: PANCREAS: Portions of the head and tail of pancreas are obscured by by gas. Visualized pancreas is unremarkable. ABDOMINAL AORTA: No aortic aneurysm is seen. INFERIOR VENA CAVA: Visualized portions are normal. LIVER: The liver demonstrates a coarse echotexture. The right lobe measures 22 cm in length. The left lobe measures 12 cm in length. The main portal vein is patent with a normal direction of flow and it demonstrates a continuously for venous waveform. Shear wave liver elastography median stiffness is 1.35 m/s (reference: normal median stiffness is 1.3 m/s or less). IQR/median stiffness to assess sampling precision is 0.16 (reference: good quality data set is IQR/median stiffness of 0.15 or less). GALLBLADDER: The gallbladder is physiologically distended without evidence of stones, sludge, polyps, wall thickening or pericholecystic fluid. COMMON BILE DUCT: Normal in caliber measuring 0.3 cm in diameter. RIGHT KIDNEY: No hydronephrosis. No renal calculi or focal parenchymal lesions. The kidney measures 12 cm in maximum dimension. LEFT KIDNEY: Shadowing related to a surgical scar from partial nephrectomy one year ago limits visualization of the left kidney. No hydronephrosis. No renal calculi or focal parenchymal lesions are evident. The kidney measures 10 cm in maximum dimension. SPLEEN: Unremarkable. The spleen measures 13 cm in maximum dimension. FREE FLUID: None seen. US/US abdomen comp w elastography IMPRESSION: 1. Suspected hepatocellular disease or hepatic steatosis. The liver has a coarse echotexture and is probably enlarged. 2. Liver elastography: In the absence of other known clinical signs, measurements rule out compensated advanced chronic liver disease. If there are known clinical signs, further testing may be needed for confirmation. REFERENCE: Society of Radiologists in Ultrasound Liver Stiffness Thresholds (2020): LIVER STIFFNESS THRESHOLDS: *Liver Stiffness equal or less than 1.3 m/s: High probability of being normal. *Liver Stiffness less than 1.7 m/s: In the absence of other known clinical signs, rules out compensated advanced chronic liver disease. *Liver Stiffness 1.7-2.1 m/s: Suggestive of compensated advanced chronic liver disease but need further test for confirmation. *Liver Stiffness over 2.1 m/s: Rules in compensated advanced chronic liver disease. *Liver Stiffness over 2.4 m/s: Suggestive of clinically significant portal hypertension. QUALITY OF DATA SET: *IQR/Median value equal or less than 0.15 implies a quality data set. *IQR/Median value over 0.15 implies a poor quality data set. SIGNIFICANT CHANGE FROM PRIOR EXAM: Significant change if liver stiffness measurement is 10% or greater from prior exam. OTHER CONSIDERATIONS: The stage of liver fibrosis may be overestimated in the setting of acute hepatitis, liver inflammation, elevated liver function tests, hepatic vascular congestion, obstructive cholestasis, non-fasting state, and infiltrative diseases such as amyloidosis and lymphoma. In some patients with NAFLD, the liver stiffness thresholds for compensated advanced chronic liver disease may be lower. In causes other than viral hepatitis and NAFLD, liver stiffness thresholds are not well established. Electronically signed by: Esteban Carlos MD 04/22/2025 10:32 AM EDT
--- OUTSIDE RECORDS SUMMARY | 2025-04-22 09:56 | XMS_ITS | Clinical Summary ---
Author Organization [facility] Address [address] [place] [address] Phone Care Team Providers Care Social Staff Worker Name Role Phone Samantha Gonzales MD Primary Care Provider [phone] Allergies Active Allergy Reactions Criticality Noted Date [...] mg x 2 during 1st hospitalization in [facility] in Sep 2022 -Continue follow-up with executive services administrator Other dietary vitamin B12 deficiency anemia 09/20 [...] GSV ablation in Aug 2018 -[place] [facility] [place], periodically when he has open wounds. -Last seen by [facility] [place] in October [...] Plan: -multifactorial - nutritional, CKD -following with [facility] executive services administrator Aneurysm of ascending aorta 05/29/2016 Overview (11/07/2022): Last Assessment & Plan: -Most recent echo on 04/12/21, EF 60-65%, dilated ascending aorta 41mm -Echo on 04/05/20, EF 55-60%, dilated ascending aorta 42 mm, -Echo on 04/01/19 EF 60-65%, Aortic root dimension 37~43mm -Seen by his trimmer hand, Dr. Claudio on n 07/11/22 -Pt advised [...] Insurance Medicaid [place] Medicaid [place] Care Teams Social Staff Worker Relationship Specialty Start Date End Date Samantha Gonzales MD PCP - General 08/29/20
--- OUTSIDE RECORDS SUMMARY | 2025-04-22 09:56 | XMS_ITS | Encounter Summary ---
Author Organization [employer] Address [address] [facility] 7t [place] [address] Care Team Providers Care Car Top Bolter Name Role Phone Samantha Gonzales MD Primary Care Provider [phone] Encounter Details Date Type Department Care Team (Late Contact Info) Description 01/29/2023 Orders Only [facility] MEDICINE [address] [place], [place] [phone] Samantha Gonzales MD [address] [place], [place] [phone] Hypomagnesemia (Primary Dx) Social History Tobacco Use [...] Description 05/14/2025 10:30 AM EDT Clinical Support [facility]INE [address] [place] [address] Scheduled Orders Name Type Priority Associated Diagnoses [...] documented as of this encounter Care Teams Car Top Bolter Relationship Specialty Start Date End Date Samantha Gonzales MD [address] [place] [address] PCP - General Family Medicine 07/09/13 [facility] 05/17/24 03/29/25 documented as of this encounter
--- OUTSIDE RECORDS SUMMARY | 2025-04-22 09:56 | XMS_ITS | Encounter Summary ---
Author Organization [employer] Address [address] [facility] 7t [place] [address] Care Team Providers Care Generator Operator Straight Bevel Gear Name Role Phone Samantha Gonzales MD Primary Care Provider [phone] Encounter Details Date Type Department Care Team (Late Contact Info) Description 12/17/2022 Abstract [facility] MEDICINE [address] [place] [address] Zee Szymanski MD [address] [place] [address] [phone] Social History Tobacco Use Types Packs/Day Years [...] 10:30 AM EDT [facility] Support [facility] [address] [place] [address] [place] [address] documented as of this encounter Visit Diagnoses Not on filedocumented in this encounter Additional Health Concerns Assessment Noted Time PHQ-9 Depression Total Score: 3 12/15/19 23 1:37 PM EDT documented as of this encounter Care Teams Generator Operator Straight Bevel Gear Relationship Specialty Start Date End Date Samantha Gonzales MD [address] [place] [address] PCP - General Family Medicine 07/09/13 [facility] 05/17/24 03/29/25 documented as of this encounter
--- OUTSIDE RECORDS SUMMARY | 2025-04-22 09:56 | XMS_ITS | Encounter Summary ---
Author Organization [employer] Address [address] [facility] 7t [place] [address] Care Team Providers Care Stave Block Roller Name Role Phone Samantha Gonzales MD Primary Care Provider [phone] Reason for Visit * Reason Onset Date Comments urgent matter 10/10/2022 Encounter Details Date Type Department Care Team ([facility] st Contact Info) Description 10/10/2022 Telephone [facility] MEDICINE [address] [place], [place] [phone] Samantha Gonzales MD [address] [place], [place] [phone] urgent matter Social History Tobacco Use Types [...] EST Spoke with Karyn. Attended the court. Knocker Off did not agree with [place] * Telephone Encounter - Luz Elena Alvarezro - 10/10/2022 1:58 PM EST Tc from Karyn with [facility] regarding to pt. Karyn states that is an urgent matter regarding to Section 35 and will need to speak with PCP, regarding the matter to set up a zoom meeting with PCP and the court. Flask Fitter contacted PCP in advise epic chat, and let PCP know what's going on. Please contact Karyn at [phone] documented in this encounter Plan of Treatment Upcoming Encounters Date Type Department Care Team (Late st Contact Info) Description 05/14/2025 10:30 AM EDT Clinical Support [facility] MEDICINE [address] [place] [address] documented as of this encounter Visit Diagnoses Not on filedocumented in this encounter Care Teams Stave Block Roller Relationship Specialty Start Date End Date Samantha Gonzales MD [address] [place] [address] PCP - General Family Medicine 07/09/13 [facility] 05/17/24 03/29/25 documented as of this encounter
--- OUTSIDE RECORDS SUMMARY | 2025-04-22 09:56 | XMS_ITS | Encounter Summary ---
Author Organization [employer] Address [address] [place] [address] 7t [place] [address] Care Team Providers Care Drafter Landscape Name Role Phone Samantha Gonzales MD Primary Care Provider [phone] Reason for Referral * Imaging (Routine) - Closed Specialty Diagnoses / Procedures Referred By Contlarissa silva Referred To Contact Diagnoses Thyroid nodule Procedures US Guided Thyroid Biopsy Samantha Gonzales MD [address] [place] [address] Phone: tel: fax: [address] Phone: tel: fax: Referral ID Status Reason Start Date Expiration Date Visits Re quested Visits Authorized [id number] Closed 11/14/2022 05/13/2023 1 1 Encounter Details Date Type Department Care Team (Late st Contact Info) Description 11/14/2022 Orders Only [facility] MEDICINE [address] [place], [place] [phone] Samantha Gonzales MD [address] [place] [address] Thyroid nodule (Primary Dx) Social [...] Description 05/14/2025 10:30 AM EDT Clinical Support [facility] MEDICINE [address] [place] [address] Scheduled Orders Name Type Priority Associated Diagnoses Orde r Schedule US Guided Thyroid Biopsy Imaging Routine Thyroid nodule Expected: 11/14/2022 (Approximate), Expires: 11/15/2023 documented as of this encounter Visit Diagnoses Diagnosis Thyroid nodule- Primary Nontoxic uninodular goiter documented in this encounter Care Teams Drafter Landscape Relationship Specialty Start Date End Date Samantha Gonzales MD [address] [place] [address] PCP - General Family Medicine 07/09/13 [facility] 05/17/24 03/29/25 documented as of this encounter
--- OUTSIDE RECORDS SUMMARY | 2025-04-22 09:57 | XMS_ITS | Encounter Summary ---
Author Organization [employer] Address [address] [facility] 7t [place] [address] Care Team Providers Care Reject Opener Name Role Phone Samantha Gonzales MD Primary Care Provider [phone] Reason for Visit * Reason Onset Date Comments OV 01/2601/24/2024 Encounter Details Date Type Department Care Team ([facility] st Contact Info) Description 01/24/2024 Telephone [facility] MEDICINE [address] [place], [place] [phone] Samantha Gonzales MD [address] [place], [place] [phone] OV 01/26 Social History Tobacco Use Types [...] state he is currently in rehab in [place] and due to a set back pt does not have any transportation to make it to [place] on Saturday. If any questions please contact pt at [phone]. documented in this encounter Plan of Treatment Upcoming Encounters Date Type Department Care Team (Late st Contact Info) Description 05/14/2025 10:30 AM EDT Clinical Support [facility] MEDICINE [address] [place] [address] documented as of this encounter Visit Diagnoses Not on filedocumented in this encounter Additional Health Concerns Assessment Noted Time PHQ-9 Depression Total Score: 3 12/15/19 23 1:37 PM EDT documented as of this encounter Care Teams Reject Opener Relationship Specialty Start Date End Date Samantha Gonzales MD [address] [place] [address] PCP - General Family Medicine 07/09/13 [facility] 05/17/24 03/29/25 documented as of this encounter
--- OUTSIDE RECORDS SUMMARY | 2025-04-22 09:57 | XMS_ITS | Clinical Summary ---
Author Organization 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 5 Active Emollient (Eucerin Advanced Repair) creamIndications: Acquired lymphedema of lower extremity Apply 4 g topically 2 times daily. 454 g 11 5 Active naltrexone (Depade) 50 MG tabletIndications :Alcohol use, unspecified, uncomplicated Take 1 tablet (50 mg) by mouth Once per day. 30 tablet 11 5 01/13/20 26 Active ammonium lactate (Lac-Hydrin) 12 % lotion APPLY TOPICALLY TO THE AFFECTED AREA(S) OF bilateral lower LEGS TO intact SKIN EVERY DAY NEEDED 5 Active torsemide (Demadex) 20 MG tablet Take 1 tablet by mouth every other day. Active loperamide (Imodium A-D) 2 MG tablet Take 1-2 tablets (2-4 mg) by mouth if needed in the morning, at noon, in the evening, and at bedtime for diarrhea. 30 tablet 2 5 Active metoprolol succinate XL (Toprol-XL) 25 MG 24 hr tablet Take 1 tablet (25 mg) by mouth Once per day. Do not crush or chew. 90 tablet 3 5 Active allopurinol (Zyloprim) 100 MG tabletIndications :History of gout TAKE 1 TABLET BY MOUTH EVERY MORNING 90 tablet 3 5 Active doxycycline (Vibra-Tabs) 100 MG tablet Take 1 tablet (100 mg) by mouth 2 times daily for 7 days. Take with a full glass of water and do not lie down for at least 30 minutes after. 14 tablet 5 04/21/20 25 Active Problems Problem Noted Date Diagnosed Date Wound of left lower extremity 02/25/2025 Assessment & Plan (04/13/2025 4:46 PM EDT): - s/p antibiotic treatment for cellulitis - Currently following with [facility] wound care [facility] - Continue treatment plan per [facility] wound care Assessment & Plan (02/25/2025 5:22 PM EDT): - s/p antibiotic treatment for cellulitis - Currently following with [facility] wound care clinic - Continue treatment plan per [facility] wound care Diarrhea 01/12/2025 Assessment & Plan (04/13/2025 4:46 PM EDT): - Seen by GI, Dr. Lenz, on 01/19/2025. Dr. Lenz's impression is IBS with diarrhea. - Hospitalized in [facility] ED in September 2023 for diarrhea and [...] advised to use judiciously. Will request his sports leadership instructor to assist in optimizing his magnesium level without causing diarrhea - Patient was advised to reduce alcohol consumption Assessment & Plan (02/25/2025 5:04 PM EDT): - Seen by GI, Dr. Lenz, on 01/19/2025. Dr. Lenz's impression is IBS with diarrhea. - Hospitalized in [facility] in September 2023 for diarrhea and [...] advised to use judiciously. Will request his sports leadership instructor to assist in optimizing his magnesium level [...] consider wound care referral if no improvement Weakness 01/23/2024 Renal cell cancer, left 07/25/2023 Assessment & Plan (04/13/2025 4:46 PM EDT): -09/21/[address] showed 2.3 cm lesion on the upper pole of left kidney; MRI was recommended -MRI 12/27/22 showed a lesion suspicious for renal cell carcinoma -s/p left nephrectomy on 12/17/23 Recommended to keep next appointment with Dr. Sow Assessment & Plan (02/13/2025 8:47 AM EDT): [...] appt date Dyslipidemia 05/26/2023 Assessment & Plan (04/13/2025 4:45 PM EDT): - current medication: rosuvastatin 5 mg at bedtime - last lipid profile: 04/13/25 TRIG 70; CHOL 169; LDL 86; HDL 69 - continue working on lifestyle modficiation Assessment & Plan (02/13/2025 8:46 AM EDT): [...] lower extremiti es 10/13/2022 Assessment & Plan (04/14/2025 6:30 PM EDT): -Recurrent -s/p cellulitis / sepsis, 12/17/19-12/21/19, requiring hospitalization and IV Zosyn, vanco, and linezolid, switched to doxycyline PO. -s/p cellulitis requiring hospitalization and IV antibiotic 06/05/19-06/09/19 -s/p right GSV ablation on 06/24/19 -s/p left GSV ablation in Aug 2018 -following with [facility] wound care clinic, periodically when he has open wounds. -most recent wound care visit in January/February 2025 -recently receiving visiting nurse wound care service, which seems to have ended recently -continue compression stockings and leg elevation -reviewed si/sx to seek a prompt medical attention -advised to monitor closely and treat proactively Assessment & Plan (02/21/2025 6:14 PM EDT): -Recurrent -s/p cellulitis / sepsis, 12/17/19-12/21/19, requiring hospitalization and IV Zosyn, vanco, and linezolid, switched to doxycyline PO. -s/p cellulitis requiring hospitalization and IV antibiotic 06/05/19-06/09/19 -s/p right GSV ablation on 06/24/19 -s/p left GSV ablation in Aug 2018 -following with [facility] wound care clinic, periodically when he has open wounds. -currently followed by [facility] -usually discharged to visiting nurse [...] ablation in Aug 2018 -following with [facility] wound care clinic, periodically when he has open wounds. -Last seen by [facility]ound care in October 2021 -usually discharged [...] ablation in Aug 2018 -following with [facility] wound care clinic, periodically when he has open wounds. -Last seen by [facility] in October 2021 -usually discharged [...] ablation in Aug 2018 -following with [facility] wound care clinic, periodically when he has open wounds. -Last seen by [facility]ound [facility] in October 2021 -usually discharged [...] ablation in Aug 2018 -following with [facility] wound care clinic, periodically when he has open wounds. -Last seen by [facility] in October 2021 -usually discharged [...] ablation in Aug 2018 -following with [facility] wound care clinic, periodically when he has open wounds. -Last seen by [facility] in October 2021 -usually discharged [...] ablation in Aug 2018 -following with [facility] wound care clinic, periodically when he has open wounds. -Last seen by [facility] in October 2021 -usually discharged [...] dialysis 10/13/2022 Hypomagnesemia 10/13/2022 Assessment & Plan (04/14/2025 6:33 PM EDT): - On magnesium oxide supplementation, but pt is frequently having diarrhea - following with sports leadership instructor - He has diarrhea due to alcohol withdrawal and IBS, and develops hypomagnesemia, then he receives IV Mg in ED with magnesium oxide prescription upon discharge. Assessment & Plan (02/25/2025 5:13 PM EDT): - On magnesium oxide supplementation, but pt is frequently having diarrhea - following with sports leadership instructor - He has diarrhea due to alcohol withdrawal and IBS, and develops hypomagnesemia, then he receives IV Mg in ED with magnesium oxide prescription upon discharge. Assessment & Plan (06/25/2024 12:14 PM EST): - 01/28/23 Magnesium 1.1 - On magnesium oxide supplementation, but pt is frequently having diarrhea - following with sports leadership instructor - dehydration due to diarrhea on 04/25/23, IVF with Mg given in ED - recheck Assessment & Plan (05/26/2023 6:52 AM EDT): - 01/28/23 Magnesium 1.1 - On magnesium oxide supplementation, but pt is frequently having diarrhea - following with sports leadership instructor - dehydration due to diarrhea on 04/25/23, IVF with Mg given in ED - recheck Assessment & Plan (04/25/2023 12:51 PM EDT): - 01/28/23 Magnesium 1.1 - On magnesium oxide supplementation, but pt is frequently having diarrhea - following with sports leadership instructor - dehydration due to diarrhea today; anticipate hypomagnesemia again -> sending ER for replacement Assessment & Plan (01/23/2023 4:07 PM EDT): [facility] Hospitalization on 10/30 - 11/02 Lab showed hypomagnesemia and thrombocytopenia Pt is prescribed magnesium supplement; encouraged to improve adherence Pt is advised to hold when he is having diarrhea Assessment & Plan (11/30/2022 6:23 AM EDT): [facility] Hospitalization on 10/30 - 11/02 Lab showed hypomagnesemia and thrombocytopenia Pt is prescribed magnesium supplement; encouraged to improve adherence Stage 2 chronic kidney disease 10/13/2022 Assessment & Plan (04/14/2025 6:32 PM EDT): -Hydraulic Jack Adjuster: [facility]. Dr. Kennedy -Hx rhabdomyolysis, on hemodialysis for 1 month in November 2017 - December 2017 -His renal funciton was CKDII level 9908-2819 -Most recent POLLY in Sep 2022, both admission, held lisinopril, spironolactone, and torsemide during 1st admission, and resumed upon discharge -Avoid nephrotoxic drugs -Continue renal dosing Assessment & Plan (02/13/2025 8:47 AM EDT): -Hydraulic Jack Adjuster: [facility]. Dr. Kennedy -Hx rhabdomyolysis, on hemodialysis for 1 month in November 2017 - December 2017 -His renal funciton was CKDII level [id number] -Most recent PO[facility] in Sep 2022, both admission, held lisinopril, spironolactone, and torsemide during 1st admission, and resumed upon discharge -Last lab: 01/28/23 Sodium 135; Potassium 3.6 ; Chloride 99 ; Bicarb 24 ; Calcium 8.0; BUN 19 , Creatinine 1.02 ; EGFR 84 -Avoid nephrotoxic drugs -Continue renal dosing Assessment & Plan (10/14/2024 5:13 PM EST): -Hydraulic Jack Adjuster: [facility]. Dr. Kennedy -Hx rhabdomyolysis, on hemodialysis for 1 month in November 2017 - December 2017 -His renal funciton was CKDII level [id number] -Most recent PO[facility] in Sep 2022, both admission, held lisinopril, spironolactone, and torsemide during 1st admission, and resumed upon discharge -Last lab: 01/28/23 Sodium 135; Potassium 3.6 ; Chloride 99 ; Bicarb 24 ; Calcium 8.0; BUN 19 , Creatinine 1.02 ; EGFR 84 -Avoid nephrotoxic drugs -Continue renal dosing Assessment & Plan (07/26/2023 2:10 PM EST): -Hydraulic Jack Adjuster: Dr. Kennedy, last appt in Sep 2021 -Hx rhabdomyolysis, on hemodialysis for 1 month in November 2017 - December 2017 -His renal funciton was CKDII level [id number] -Most recent POLLY in Sep 2022, both [...] Assessment & Plan (05/26/2023 6:49 AM EDT): -Hydraulic Jack Adjuster: Dr. Kennedy, last appt in Sep 2021 -Hx rhabdomyolysis, on hemodialysis for 1 month in November 2017 - December 2017 -His renal funciton was CKDII level [id number] -Most recent [facility] in Sep 2022, both admission, held lisinopril, spironolactone, and torsemide during 1st admission, and resumed upon discharge -Last lab: 01/28/23 Sodium 135; Potassium 3.6 ; Chloride 99 ; Bicarb 24 ; Calcium 8.0; BUN 19 , Creatinine 1.02 ; EGFR 84 -Avoid nephrotoxic drugs -Continue renal dosing Assessment & Plan (04/25/2023 12:49 PM EDT): -Hydraulic Jack Adjuster: Dr. Kennedy, last appt in Sep 2021 -Hx rhabdomyolysis, on hemodialysis for 1 month in November 2017 - December 2017 -His renal funciton was CKDII level [id number] -Most recent PO[facility] in Sep 2022, both admission, held lisinopril, spironolactone, and torsemide during 1st admission, and resumed upon discharge -Last lab: 01/28/23 Sodium 135; Potassium 3.6 ; Chloride 99 ; Bicarb 24 ; Calcium 8.0; BUN 19 , Creatinine 1.02 ; EGFR 84 -Avoid nephrotoxic drugs -Continue renal dosing Assessment & Plan (01/23/2023 4:04 PM EDT): -Hydraulic Jack Adjuster: Dr. Kennedy, last appt in Sep 2021 -Hx rhabdomyolysis, on hemodialysis for 1 month in November 2017 - December 2017 -His renal funciton was CKDII level [id number] -Most recent POLLY in Sep 2022, both admission, held lisinopril, spironolactone, and torsemide during 1st admission, and resumed upon discharge -Last lab: 10/07/22 BUN 31; SCr 1.7, eGFR 47 (Apr 2023 eGFR > 60) -Avoid nephrotoxic drugs -Continue renal dosing Assessment & Plan (11/26/2022 9:32 AM EDT): -Hydraulic Jack Adjuster: Dr. Kennedy, last appt in Sep 2021 -Hx rhabdomyolysis, on hemodialysis for 1 month in November 2017 - December 2017 -His renal funciton was CKDII level -Most recent POLLY in Sep 2022, both admission, held lisinopril, spironolactone, and torsemide during 1st admission, and resumed upon discharge -Last lab: 10/07/22 BUN 31; SCr 1.7, eGFR 47 (Apr 2023 eGFR > 60) -Avoid nephrotoxic drugs -Recheck lab -Will use renal dosing Assessment & Plan (10/13/2022 5:03 PM EST): -Hydraulic Jack Adjuster: Dr. Kennedy, last appt in Sep 2021 -Hx rhabdomyolysis, on hemodialysis for 1 month in November 2017 - December 2017 -His renal funciton was CKDII level [id number] -Most recent POLLY in Sep 2022, both [...] supplementation -currently receiving B12 IM from his drafting clerk, Dr. Peters Assessment & Plan (06/25/2024 12:12 PM EST): -likely nutritional and excessive alcohol consumption -continue vitamin supplementation -currently receiving B12 IM from his drafting clerk, Dr. Peters Assessment & Plan (07/25/2023 6:24 AM EST): -likely nutritional and excessive alcohol consumption -continue vitamin supplementation -currently receiving B12 IM from his drafting clerk, Dr. Peters Assessment & Plan (10/13/2022 5:15 PM EST): -likely nutritional and excessive alcohol consumption -continue vitamin supplementation Iron deficiency anemia 10/13/2022 Assessment & Plan (07/25/2023 6:25 AM EST): -Received Venfor IV 300 mg x 2 during 1st hospitalization in [facility] in Sep 2022 -Continue follow-up with drafting clerk Assessment & Plan (10/13/2022 5:17 PM EST): -Received Venfor IV 300 mg x 2 during 1st hospitalization in [facility] in Sep 2022 -Continue follow-up with drafting clerk Anemia of chronic disease 01/15/2018 Assessment & Plan (02/25/2025 5:16 PM EDT): - following with drafting clerk - Most recent CBC at baseline - multifactorial: chronic liver disease; iron deficiency; B12 deficiency - continue vitamin B12 IM - continue iron Assessment & Plan (01/17/2025 12:09 PM EDT): - recheck lab as his last CBC showed decreased H/H from baseline Assessment & Plan (10/09/2024 1:03 AM EST): - Both Iron and Vitamin-B12 deficiency, and anemia of chronic diseaes - followed by drafting clerk, Dr. Peters Assessment & Plan (06/25/2024 12:12 PM EST): - Both Iron and Vitamin-B12 deficiency, and anemia of chronic diseaes - followed by drafting clerk, Dr. Peters Assessment & Plan (07/26/2023 2:12 PM EST): - Both Iron and Vitamin-B12 deficiency, and anemia of chronic diseaes -followed by drafting clerk, Dr. Peters, last seen on 06/03/23 Assessment & Plan (05/26/2023 6:51 AM EDT): Both Iron and Vitamin-B12 deficiency -followed by drafting clerk Assessment & Plan (04/25/2023 10:40 AM EDT): Both Iron and Vitamin-B12 deficiency -followed by drafting clerk Assessment & Plan (01/23/2023 4:06 PM EDT): Both Iron and Vitamin-B12 deficiency -followed by drafting clerk Assessment & Plan (11/26/2022 9:51 AM EDT): Both Iron and Vitamin-B12 deficiency -followed by drafting clerk Assessment & Plan (10/13/2022 5:18 PM EST): -multifactorial - nutritional, CKD -following with [facility] drafting clerk Aneurysm of ascending aorta 05/29/2016 Assessment & Plan (04/14/2025 6:32 PM EDT): -Most recent echo on 04/12/21, EF 60-65%, dilated ascending aorta 41mm -Echo on 04/05/20, EF 55-60%, dilated ascending aorta 42 mm, -Echo on 04/01/19 EF 60-65%, Aortic root dimension 37~43mm -Echo on 06/23/24 EF 60-65%, Ascending aortic aorta 41 mm. -Seen by his studio operations manager, Dr. Claudio in Jun 2024. Patient requests a referral to studio operations manager in [place] because [facility] office is closed -Continue surveillance transthoracic echocardiogram -Work on risk factor management - Assessment & Plan (01/13/2025 10:00 PM EDT): -Most recent echo on 04/12/21, EF 60-65%, dilated ascending aorta 41mm -Echo on 04/05/20, EF 55-60%, dilated ascending aorta 42 mm, -Echo on 04/01/19 EF 60-65%, Aortic root dimension 37~43mm -Echo on 06/23/24 EF 60-65%, Ascending aortic aorta 41 mm. -Seen by his studio operations manager, Dr. Claudio in Jun 2024 -Continue surveillance [...] aortic aorta 41 mm. -Seen by his studio operations manager, Dr. Claudio in Jun 2024 -Continue surveillance transthoracic echocardiogram -Work on risk factor management Assessment & Plan (11/12/2023 12:18 PM EDT): -Most recent echo on 04/12/21, EF 60-65%, dilated ascending aorta 41mm -Echo on 04/05/20, EF 55-60%, dilated ascending aorta 42 mm, -Echo on 04/01/19 EF 60-65%, Aortic root dimension 37~43mm -Seen by his studio operations manager, Dr. Claudio on 03/14/23 -Pt advised to check next Cardiogram appt which is in August 2023 -Work on risk factor management Assessment & Plan (07/25/2023 6:22 AM EST): -Most recent echo on 04/12/21, EF 60-65%, dilated ascending aorta 41mm -Echo on 04/05/20, EF 55-60%, dilated ascending aorta 42 mm, -Echo on 04/01/19 EF 60-65%, Aortic root dimension 37~43mm -Seen by his studio operations manager, Dr. Claudio on 03/14/23 -Pt advised to check next Cardiogram appt which is in August 2023 -Work on risk factor management Assessment & Plan (05/26/2023 6:48 AM EDT): -Most recent echo on 04/12/21, EF 60-65%, dilated ascending aorta 41mm -Echo on 04/05/20, EF 55-60%, dilated ascending aorta 42 mm, -Echo on 04/01/19 EF 60-65%, Aortic root dimension 37~43mm -Seen by his studio operations manager, Dr. Claudio on 03/14/23 -Pt advised to check next Cardiogram appt which is in August 2023 -Work on risk factor management Assessment & Plan (04/25/2023 10:42 AM EDT): -Most recent echo on 04/12/21, EF 60-65%, dilated ascending aorta 41mm -Echo on 04/05/20, EF 55-60%, dilated ascending aorta 42 mm, -Echo on 04/01/19 EF 60-65%, Aortic root dimension 37~43mm -Seen by his studio operations manager, Dr. Claudio on 03/14/23 -Pt advised to check next Cardiogram appt which is in August 2023 -Work on risk factor management Assessment & Plan (11/30/2022 6:19 AM EDT): -Most recent echo on 04/12/21, EF 60-65%, dilated ascending aorta 41mm -Echo on 04/05/20, EF 55-60%, dilated ascending aorta 42 mm, -Echo on 04/01/19 EF 60-65%, Aortic root dimension 37~43mm -Seen by his studio operations manager, Dr. Claudio on n 07/11/22 -Pt advised to check next Cardiogram appt -Work on risk factor management Assessment & Plan (10/13/2022 5:10 PM EST): -Most recent echo on 04/12/21, EF 60-65%, dilated ascending aorta 41mm -Echo on 04/05/20, EF 55-60%, dilated ascending aorta 42 mm, -Echo on 04/01/19 EF 60-65%, Aortic root dimension 37~43mm -Seen by his studio operations manager, Dr. Claudio on n 07/11/22 -Pt advised to check next Cardiogram appt -Work on risk factor management Acquired deviated nasal septum 04/25/2016 Metabolic dysfunction-associ ated steatotic liver disease and increased alcohol intake (MetALD) 12/27/2015 Assessment & Plan (04/14/2025 6:32 PM EDT): - Last liver test: 07/02/24 - Last US / elastography -> ordered - Last imaging: CT in Jul 2024 showed splenomegaly, hepatomegaly, and diffuse fatty liver - FIB4 index 6.49, cirrhosis - GI: Upcoming appointment with Dr. Yoanna leyva working on lifestyle modifications - continue surveillance study - Prescribed loperamide (Imodium A-D) 2 MG tablet Assessment & Plan (02/13/2025 8:47 AM EDT): [...] cirrhosis - GI: Upcoming appointment with Dr. Yoanna leyva working on lifestyle modifications - continue surveillance study - Prescribed loperamide (Imodium A-D) 2 MG tablet Assessment & Plan (10/14/2024 5:11 PM EST): - Last liver test: 07/02/24 - Last US / elastography -> ordered - Last imaging: CT in Jul 2024 showed splenomegaly, hepatomegaly, and diffuse fatty liver - FIB4 index 6.49, cirrhosis - GI: Upcoming appointment with Dr. Yoanna leyva working on lifestyle modifications - continue surveillance [...] [facility]. Pt will meet with [employer] today. Assessment & Plan (10/13/2022 5:30 PM [...] to lower dose for CKDIII Obesity 09/06/2015 Assessment & Plan (04/14/2025 6:36 PM EDT): - consider GLP1RA Essential hypertension 05/30/2015 Assessment & Plan (04/14/2025 6:38 PM EDT): - Goal BP < 130/80 [...] 25 mg daily which was discontinued by sports leadership instructor - Improve CPAP adherence - return for BP check in 1 mo. If persistently elevated, then refer to CDTM. Tx history - Amlodipine was discontinued due to LE edema and furosemide was switched to torsemide by his studio operations manager. - Lisinopril was discontinued when he had POLLY, but restarted after his renal function recovered - Lisinopril and torsemide were held during hospitalization with POLLY. Resumed upon discharge. - Lisinopril was changed to losartan in Jul 2023. - Metoprolol had been self-discontinued, but will restart Assessment & Plan (02/25/2025 4:48 PM EDT): [...] 25 mg daily which was discontinued by sports leadership instructor - Improve CPAP adherence Tx history - Amlodipine was discontinued due to LE edema and furosemide was switched to torsemide by his studio operations manager. - Lisinopril was discontinued when he had [...] 25 mg daily which was discontinued by sports leadership instructor - Improve CPAP adherence Tx history - Amlodipine was discontinued due to LE edema and furosemide was switched to torsemide by his studio operations manager. - Lisinopril was discontinued when he had [...] 25 mg daily which was discontinued by sports leadership instructor - Improve CPAP adherence Tx history - Amlodipine was discontinued due to LE edema and furosemide was switched to torsemide by his studio operations manager. - Lisinopril was discontinued when he had [...] 25 mg daily which was discontinued by sports leadership instructor - Improve CPAP adherence Tx history - Amlodipine was discontinued due to LE edema and furosemide was switched to torsemide by his studio operations manager. - Lisinopril was discontinued when he had [...] furosemide was switched to torsemide by his studio operations manager. - Lisinopril was discontinued when he had [...] furosemide was switched to torsemide by his studio operations manager. - Lisinopril was discontinued when he had [...] metoprolol succinate 75 mg daily (Dr. Claudio, studio operations manager, increased to 100 mg daily, but his discharge medication list shows 75 mg daily) - Continue torsemide 20 mg bid - Continue spirolactone 25 mg daily - Continue lisinopril 5mg daily - Improve CPAP adherence Tx history - Amlodipine was discontinued due to LE edema and furosemide was switched to torsemide by his studio operations manager. - Lisinopril was discontinued when he had [...] metoprolol succinate 75 mg daily (Dr. Claudio, studio operations manager, increased to 100 mg daily, but his discharge medication list shows 75 mg daily) - Continue torsemide 20 mg bid - Continue spirolactone 25 mg daily - Continue lisinopril 5mg daily - Improve CPAP adherence Tx history - Amlodipine was discontinued due to LE edema and furosemide was switched to torsemide by his studio operations manager. - Lisinopril was discontinued when he had [...] metoprolol succinate 75 mg daily (Dr. Claudio, studio operations manager, increased to 100 mg daily, but his discharge medication list shows 75 mg daily) - Continue torsemide 20 mg bid - Continue spirolactone 25 mg daily - Continue lisinopril 5mg daily - Improve CPAP adherence Tx history - Amlodipine was discontinued due to LE edema and furosemide was switched to torsemide by his studio operations manager. - Lisinopril was discontinued when he had [...] metoprolol succinate 75 mg daily (Dr. Claudio, studio operations manager, increased to 100 mg daily, but his discharge medication list shows 75 mg daily) - Continue torsemide 20 mg bid - Continue spirolactone 25 mg daily - Continue lisinopril 5mg daily - Improve CPAP adherence Tx history - Amlodipine was discontinued due to LE edema and furosemide was switched to torsemide by his studio operations manager. - Lisinopril was discontinued when he had [...] metoprolol succinate 75 mg daily (Dr. Claudio, studio operations manager, increased to 100 mg daily, but his discharge medication list shows 75 mg daily) - Continue torsemide 20 mg bid - Continue spirolactone 25 mg daily - Continue lisinopril 5mg daily - Improve CPAP adherence Tx history - Amlodipine was discontinued due to LE edema and furosemide was switched to torsemide by his studio operations manager. - Lisinopril was discontinued when he had POLLY, but restarted after his renal function recovered - Lisinopril and torsemide were held during recent hospitalization. Resumed upon discharge. Calcaneal spur 07/21/2014 Obstructive sleep apnea syndrome 07/21/2014 Assessment & Plan (04/14/2025 6:34 PM EDT): -Improve adherence to CPAP -Consider referring back to sleep medicine clinic Assessment & Plan (02/25/2025 5:23 PM EDT): [...] - ambulance called to transport [place] [facility] [place] Abdominal pain 01/23/2024 02/25/2025 Acute hypokalemia 01/23/2024 02/25/2025 Renal mass 01/23/2024 04/14/2025 Vomiting and diarrhea 01/23/20232022 Assessment & Plan (01/23/2023 4:03 PM EDT): - infectious gastroenteritis (viral or bacterial), ?food poisoning, medication side effects (Magnesium oxide and other medications) - pt declines lab and ED referral - reviewed ER precautions - continue hydrating himself and supportive care - pt states he will do lab when he comes back for AUD clinic this Saturday Kidney lesion, paimiut, left 10/13/2022 06/15/2024 Assessment & Plan (07/25/2023 [...] Encounters Date Type Department Care Team Description 04/18/2025 Telephone [facility] [address] [place] [address] Sarah Leon MD 04/15/2025 Telephone [facility] [address] [place] [address] Samantha Gonzales MD Referral 04/13/2025 10:30 AM EDT Office Visit [facility] [address] [place] [address] Samantha Gonzales MD Essential hypertension (Primary Dx); Renal cell cancer, left (CMS/HCC); Encounter for immunization; Dyslipidemia; Diarrhea, unspecified type; Anemia, unspecified type; Wound of left lower extremity, subsequent encounter; Abdominal wound dehiscence, initial encounter; Venous stasis dermatitis of both lower extremities; Aneurysm of ascending aorta without rupture ([facility]/HCC); Metabolic dysfunction-associat ed steatotic liver disease and increased alcohol intake (MetALD); Alcoholic liver disease (CMS/HCC); Stage 2 chronic kidney disease; Hypomagnesemia; Obstructive sleep apnea syndrome; Class 2 severe obesity due to excess calories with serious comorbidity and body mass index (BMI) of 35.0 to 35.9 in adult (CMS/HCC) 04/13/[address] [address] Samantha Gonzales MD visiting nurse referral 04/13/2025 Travel 04/12/[address] [address] Samantha Gonzales MD Referral 03/31/2025 Patient Outreach [facility] MED & PEDS [address] [place] [address] Samantha Gonzales MD Care Coordination (C3/CM Outreach) 03/24/[address] [address] Samantha Gonzales MD FYI 03/03/2025 Patient Outreach [facility] MED & PEDS [address] [place] [address] Samantha Gonzales MD Care Coordination (C3/CM Outreach) 02/12/2025 Patient Outreach [facility] MED & PEDS [address] [place] [address] Samantha Gonzales MD 02/11/2025 9:30 AM EDT Office Visit [address] [address] Samantha Gonzales MD Essential hypertension (Primary Dx); Dyslipidemia; Chronic liver disease; Metabolic dysfunction-associat ed steatotic liver disease and increased alcohol intake (MetALD); Hypomagnesemia; Stage 2 chronic kidney disease; Renal cell cancer, left ([facility]/HCC); History of gout; Venous stasis dermatitis of both lower extremities; Diarrhea, unspecified type; Anemia of chronic disease; Bilateral cellulitis of lower leg; Alcohol use disorder; Wound of left lower extremity, sequela; Obstructive sleep apnea syndrome 02/11/2025 9:00 AM EDT Office Visit [facility] [address] [place] [address] Lima Davenport, OD Presbyopia (Primary Dx) 02/11/2025 Travel 02/10/2025 Telephone [facility] [address] [place] [phone] Marcella Wong RN ER Follow-up 02/08/2025 Orders Only GENERIC EXTERNAL DATA DEPARTMENT Provider, Generic External Data 02/08/[address] [address] Darcy Mariee MA chart prep 02/05/2025 Travel 02/02/2025 Patient Outreach [facility] MED & PEDS [address] [place] [address] Samantha Gonzales MD 02/02/[address] [address] Samantha Gonzales MD 01/29/[address] [address] Avis Newby, PharmD 01/28/2025 Patient Outreach [facility] MED & PEDS [address] [place], [place] [phone] Samantha Gonzales MD Care Coordination (C3/CM Outreach) 01/26/2025 Patient Outreach [facility] MED & PEDS [address] [place] [address] Samantha Gonzales MD 01/25/2025 Patient Outreach [address] [address] Samantha Gonzales MD Transition Of Care (Tcm) (HDF unscheduled) 01/22/2025 1:20 PM EDT Office Visit [facility] [address] [place] [phone] Zee Szymanski MD Maggot infestation (Primary Dx) 01/22/2025 Travel from Last 3 Months Immunizations Immunization Administration [...] Description 05/14/2025 10:30 AM EDT Clinical Support [address] [address] Health Maintenance Due Date Last Done Comments [...] 01/12/2025 SDOH Screening 01/12/2026 01/12/2025 Tobacco Screening 04/14/2026 04/14/2025 Lipid Panel 04/13/2030 04/13/2025, 06/19, 01/28/2023, Additional history exists DTaP/Tdap/Td Vaccines (3 - Td or Tdap) 07/28/2032 07/28/2022, 07/21/2014, 08/19/2008 Colonoscopy 09/20/2033 09/20/2023 Colorectal Cancer Screening 09/20/2033 Zoster Vaccines Completed 06/12/2022, 05/20, 04/09/2022, Additional history exists Pneumococcal Vaccine: 50+ Years Completed 11/26/2022, 07/25/2018, 07/21/2014 Hepatitis C Screening Completed 01/28/2023 COVID-19 Vaccine Completed 06/25/2024, 09/2022, 02/09/2022, Additional history exists Hepatitis A Vaccines Completed 04/13/2025, 06/25/20 24 HIB Vaccines Aged Out No longer eligi [...] Procedure Name Priority Date/Time Associated Diagnosis Comments LIPID PANEL WITH REFLEX TO DIRECT LDL Routine 04/13/2025 11:26 AM EDT Dyslipidemia CBC WITH AUTO DIFFERENTIAL Routine 04/13/2025 11:26 AM EDT Anemia, unspecified type MAGNESIUM Routine 04/13/2025 11:26 AM EDT Diarrhea, unspecified type TSH W/REFLEX TO FT4 Routine 04/13/2025 1 1:26 AM EDT Diarrhea, unspecified type COMPREHENSIVE METABOLIC PANEL Routine 04/13/2025 11:26 AM EDT Diarrhea, unspecified type B TYPE NATRIURETIC PEPTIDE (BNP) Routine 04/13/2025 11:26 AM EDT Acquired lymphedema of lower extremity HEPATIC FUNCTION PANEL Routine 11:26 AM EDT Thrombocytopenia (CMS/HCC) WOUND CARE Routine 04/13/2025 11:10 AM EDT Wound of left lower extremity, subsequent encounter MAGNESIUM Routine 02/08/2025 7:53 PM EDT URINALYSIS, COMPLETE, WITH REFLEX TO CULTURE Routine 02/08/2025 7:53 PM EDT HIGH SENSITIVITY TROPONIN I Routine 02/08/2025 1:58 PM EDT CREATINE KINASE, TOTAL Routine 1:58 PM EDT MAGNESIUM Routine 02/08/2025 1:58 PM EDT BASIC METABOLIC PANEL Routine 02/08/2025 1:58 PM EDT HEPATIC FUNCTION PANEL Routine 1:58 PM EDT CBC WITH AUTO DIFFERENTIAL Routine 02/08/2025 1:57 PM EDT XR CHEST 2 VIEWS Routine 02/08/2025 1:14 PM EDT XR CHEST 1 VIEW Routine 01/22/2025 3:19 PM EDT HM COLONOSCOPY Routine 09/20/2023 HEPATITIS C AB W/REFL TO HCV RNA, QN, PCR Routine 01/28/2023 9:34 AM EDT Alcohol use disorder, severe, dependence (CMS/HCC) from Last 3 Months or Most Recently Relevant to Health Maintenance Results * TSH with Reflex to Free T4 (04/13/2025 11:26 AM EDT) TSH reflex Free T4 1.72 0.32 - 4.0 uIU/mL [facility] Blood 04/13/2025 11:2 6 AM EDT 04/13/2025 1:08 PM EDT us Samantha Gonzales MD LAB BLOOD ORDERABLES Final Resul t [facility] [address] [place] [phone] [phone] * Lipid Panel with Reflex to Direct LDL (04/13/2025 11:26 AM EDT) Triglycerides 70 <150 mg/dL [facility] Comment:Desirable Triglyceri de: less than 150 mg/dLBorderline High Triglyceride 150-199 mg/dLHigh Triglyceride: 200-499 mg/dLVery High Triglyceride: greater than or equal to 5OO mg/dL Cholesterol 169 <200 mg/dL [facility] Comment:Desirable Cholestero l: less than 200 mg/dLBorderline High Cholesterol: 200-239 mg/dLHigh Cholesterol: greater than 239 mg/dL LDL Cholesterol Calculated 86 <100 mg/dL [facility] Comment:Desirable LDL: less than 100 mg/dLNear Optimal/Above Optimal LDL: 110- 129 mg/dLBorderline High LDL: 130-159 mg/dLHigh LDL: 160-189 mg/dLVery High LDL: greater than or equal to 190 mg/dL HDL Cholesterol 69 >40 mg/dL [facility] Comment:Desirable HDL: great er than 40 mg/dL Note: This HDL assay may give artificially low results in patients with liver disease. Blood 04/13/2025 11:2 6 AM EDT 04/13/2025 1:08 PM EDT us Samantha Gonzales MD LAB BLOOD ORDERABLES Final Resul t [facility] [address] [place] [phone] * (ABNORMAL) CBC auto differential (04/13/2025 11:26 AM EDT) Only the most recent of2 resultswithin the time period is included. White Blood Count 6.1 4.8 - 10.8 X10*3/uL [facility] Red Blood Count 3.36(L) 4.60 - 5.80 X10*6/uL [facility] Hemoglobin 10.0(L) 14.0 - 18.0 g/dl [facility] Hematocrit 30.9(L) 42.0 - 52.0 % [facility] Mean Corpuscular Volume 92.0 80.0 - 98.0 fL [facility] Mean Corpuscular Hemoglobin 29.8 27.0 - 33.0 pg [facility] Mean Corpuscular HGB Conc 32.4 31.0 - 36.0 g/dl [facility] Red Cell Distribution Width 15.2 11.0 - 16.0 % [facility] Platelet Count 132(L) 160 - 400 X10*3/uL [facility] Mean Platelet Volume 8.5(L) 9.4 - 12.4 fL [facility] Neutrophils Percent Auto 57.3 45 - 73 % [facility] Imm Gran Pct Auto 0.2 0.0 - 0.4 % [facility] Lymphocytes Percent Auto 32.3 20 - 40 % [facility] Monocytes Percent Auto 6.6 2 - 11 % [facility] Eosinophils Percent Auto 2.1 0 - 4 % [facility] Basophils Percent Auto 1.5 0 - 2 % [facility] NRBC Pct Auto 0.0 0.0 - 0.2 /100WBC [facility] Neutrophils Absolute Auto 3.5 2.0 - 8.3 x10*3/uL [facility] Imm Gran Abs Auto 0.01 0.00 - 0.03 X10*3/uL [facility] Lymphocytes Absolute Auto 2.0 1.2 - 4.9 X10*3/uL [facility] Monocytes Absolute Auto 0.4 0.1 - 1.2 X10*3/uL [facility] Eosinophils Absolute Auto 0.1 0.0 - 0.4 X10*3/uL [facility] Basophils Absolute Auto 0.1 0.0 - 0.2 X10*3/uL [facility] NRBC Abs Auto 0.000 0.0 - 0.012 X10*3/uL [facility] Blood Venous blood specimen / Unknown 04/13/2025 11:26 AM EDT 04/13/2025 1:08 PM EDT us Samantha Gonzales MD LAB BLOOD ORDERABLES Final Resul t [facility] [address] [place] [phone] * (ABNORMAL) B Type Natriuretic Peptide (BNP) (04/13/2025 11:26 AM EDT) [facility] B Type Natriuretic Peptide 400(H) <100 pg/mL [facility] Blood Venous blood specimen / Unknown 04/13/2025 11:26 AM EDT 04/13/2025 12:58 PM EDT Brianna CARRERA LAB BLOOD ORDERABLES Final Resul t Performing Organization Address [facility] de Phone Number [facility] [address] [place] [phone] * Magnesium (04/13/2025 11:26 AM EDT) Only the most recent of3 resultswithin the time period is included. [facility] Magnesium 1.8 1.6 - 2.6 mg/dL [facility] Blood Venous blood specimen / Unknown 04/13/2025 11:26 AM EDT 04/13/2025 1:08 PM EDT Samantha Gonzales MD LAB BLOOD ORDERABLES Final Resul t Performing Organization Address [facility] de Phone Number [facility] [address] [place] [phone] * (ABNORMAL) Hepatic Function Panel (04/13/2025 11:26 AM EDT) Only the most recent of2 resultswithin the time period is included. [facility] Bilirubin, Total 0.8 0.0 - 1.0 mg/dL [facility] Bilirubin, Direct 0.4 0.0 - 0.5 mg/dL [facility] Aspartate Amino Transferase 32 5 - 37 U/L [facility] Alanine Aminotransferase 10 0 - 40 U/L [facility] Total Protein 7.3 6.5 - 8.0 g/dL [facility] Albumin Level 3.8 3.5 - 5.0 g/dL [facility] Alkaline Phosphatase 125(H) 39 - 117 U/L [facility] Blood Venous blood specimen / Unknown 04/13/2025 11:26 AM EDT 04/13/2025 1:08 PM EDT Brianna Covington [facility] LAB BLOOD ORDERABLES Final Resul t [facility] [address] [place] [phone] * (ABNORMAL) Comprehensive Metabolic Panel (04/13/2025 11:26 AM EDT) Sodium 146(H) 135 - 145 mmol/L [facility] Potassium 4.2 3.3 - 5.1 mmol/L [facility] Chloride 111(H) 96 - 108 mmol/L [facility] Carbon Dioxide 25 22 - 29 mmol/L [facility] Anion Gap 14 12 - 20 [facility] Urea Nitrogen (BUN) 14 9 - 16 mg/dL [facility] Creatinine, Serum 1.19 0.5 - 1.4 mg/dL [facility] Estimated Glomerular Filt Rate >60 [facility] Comment:Chronic Kidney Disea se: Estimated GFR < 60 mL/min/1.16p5Veyoxd Kidney Disease: Estimated GFR < 15 mL/min/1.73m2 Glucose 81 60 - 115 mg/dL [facility] Calcium 8.7 8.4 - 10.2 mg/dL [facility] Bilirubin, Total 0.8 0.0 - 1.0 mg/dL [facility] Aspartate Amino Transferase 31 5 - 37 U/L [facility] Alanine Aminotransferase 9 0 - 40 U/L [facility] Total Protein 7.3 6.5 - 8.0 g/dL [facility] Albumin Level 3.8 3.5 - 5.0 g/dL [facility] Alkaline Phosphatase 125(H) 39 - 117 U/L [facility] Blood Venous blood specimen / Unknown 04/13/2025 11:26 AM EDT 04/13/2025 1:08 PM EDT us Samantha Gonzales MD LAB BLOOD ORDERABLES Final Resul t [facility] [address] [place] [phone] * Wound Care (04/13/2025 11:10 AM EDT) Narrative Samantha Gonzales MD - 04/13/2025 11:10 AM EDT Samantha Gonzales MD 04/14/2025 6:38 PM Wound Care Date/Time: 04/13/2025 11:10 AM Performed by: Karyn Patel RN Authorized by: Samantha Gonzales MD Consent: Consent obtained: Verbal Consent given by: Patient Risks, benefits, and alternatives were discussed: yes Risks discussed: Infection [place] protocol: Patient identity confirmed: Verbally with patient Procedure details: Wound location: left lower flank. Dressing: Dressing applied: 2x2 and 4x4 Post-procedure details: Procedure completion: Tolerated well, no immediate complications Samantha Gonzales MD IN CLINIC/BEDSIDE ORDERABLES Robin josh Result - Final * (ABNORMAL) Urinalysis, Complete, with Reflex to Culture (02/08/2025 7:53 PM EDT) Color Urine Yellow [facility] Appearance Urine Clear [facility] PH 6.5 5.0 - 9.0 [facility] Glucose Urine UA Negative Negative mg/dL [facility] Urine Blood Negative Negative [facility] Specific Tok - Urine 1.010 1.005 - 1.025 [facility] Urine Protein 30 (1+)(A) Neg-Trace mg/dL [facility] Urine Ketones Negative Negative mg/dL [facility] Nitrite Urine Negative Negative [facility] Leukocyte Esterase Urine Negative Negative [facility] RBC Urine 0-2 0 - 2 /HPF [facility] Urine WBC 0-5 0 - 5 /HPF [facility] Urine Squamous Epithelial Cell 0-2 0 - 2 /HPF [facility] Urine Bacteria None Seen None Seen [facility] Hyaline Casts, Urine 0-2 0 - 2 /LPF [facility] 02/08/2025 7:53 PM EDT 02/08/2025 7:55 PM EDT Narrative [facility] - 02/08/2025 8:09 PM EDT [id number], Clean Catch us Generic External Data Provider LAB URINE ORDERAB LES Final Result Performing Organization Address [facility] Co de Phone Number [facility] [address] [place] [phone] * High Sensitivity Troponin I (02/08/2025 1:58 PM EDT) Pathologist [facility] TROPONIN I HIGH SENSITIVITY 3.9 <3.5 - 35.0 ng/L [facility] Comment:The Erwin high sens itivity Troponin-I results should beused in conjunction with other diagnostic information suchas ECG, clinical observations and information, and patientsymptoms to aid in the diagnosis of SC. 02/08/2025 1:58 PM EDT 02/08/2025 2:01 PM EDT us Generic External Data Provider LAB BLOOD ORDERAB LES Final Result Performing Organization Address [facility] Phone Number [facility] [address] [place] [phone] * Creatine Kinase, Total (02/08/2025 1:58 PM EDT) Creatine Kinase Total 63 38 - 174 U/L [facility] 02/08/2025 1:58 PM EDT 02/08/2025 2:01 PM EDT us Generic External Data Provider LAB BLOOD ORDERAB LES Final Result Performing Organization Address [facility] Co de Phone Number [facility] [address] [place] [phone] * (ABNORMAL) Basic Metabolic Panel (02/08/2025 1:58 PM EDT) Sodium 142 135 - 145 mmol/L [facility] Potassium 3.6 3.3 - 5.1 mmol/L [facility] Chloride 107 96 - 108 mmol/L [facility] Carbon Dioxide 20(L) 22 - 29 mmol/L [facility] Anion Gap 19 12 - 20 [facility] Urea Nitrogen (BUN) 9 9 - 16 mg/dL [facility] Creatinine, Serum 1.04 0.5 - 1.4 mg/dL [facility] Creatinine Clr Calc Pharmacy 80.8 [facility] Comment:eGFR (calculated fro m the MDRD study equation) and eCrCl(calculated from the Cockcroft-Gault equation) are based ondifferent parameters and may not yield comparable results.If eCrCl result is absurd, please check patient'sheight/weight. Estimated Glomerular Filt Rate >60 [facility] Comment:Chronic Kidney Disea se: Estimated GFR < 60 mL/min/1.75r9Fsjjve Kidney Disease: Estimated GFR < 15 mL/min/1.73m2 Glucose 88 60 - 115 mg/dL [facility] Calcium 8.9 8.4 - 10.2 mg/dL [facility] 02/08/2025 1:58 PM EDT 02/08/2025 2:01 PM EDT us Generic External Data Provider LAB BLOOD ORDERAB LES Final Result [facility] [address] [place] [phone] * XR Chest 2 Views (02/08/2025 1:14 PM EDT) Anatomical Region Laterality Modality Chest Radiographic Paty ging 02/08/2025 1:14 PM EDT Narrative 02/08/2025 2:23 PM EDT [address] [address] XRay Report Signed Patient: Mohan Gonzalez MR#: [id number] : 1960 Acct:[id number] Age/Sex: 64 / M ADM Date: 02/08/25 Loc: HO.ED Attending Dr: Ordering Physician: Olivia Cochran Date of Service: 02/08/25 Procedure(s): XR chest 2V Accession Number(s): [id number] cc: Olivia Cochran; Samantha Gonzales MD EXAMINATION: [...] Daniel Lundberg MD 02/08/2025 02:20 PM EDT RP Dictated By: Daniel Tejeda MD Signed By: <Electronically signed by Daniel Negrete MD in OV> 02/08/25 1420 DD/ 1314 TD/TT: 02/08/25 1416 Flexo Press Operator: Procedure Note Donotuseinterpreter, Image - 02/08/[address] [address] XRay Report Signed Patient: Mohan Gonzalez AMR#: [id number] : 1960cct:[id number] Age/Sex: 64 / MADM Date: 02/08/25 Loc: .ED Attending Dr: Ordering Physician: Olivia Cochran Date of Service: 02/08/25 Procedure(s): XR chest 2V Accession Number(s): [id number] cc: Olivia Cochran; Samantha Gonzales MD EXAMINATION: [...] Daniel Lundberg MD 02/08/2025 02:20 PM EDT RP Dictated By: Daniel Tejeda MD Signed By: <Electronically signed by Daniel Negrete MDin OV> 02/08/25 1420 DD/ 1314 TD/TT: 02/08/25 1416 Flexo Press Operator: [facility] External Provider IMG XR PROCEDURES Final Result * XR Chest 1 View (01/22/2025 3:19 PM EDT) Anatomical Region Laterality Modality Chest Radiographic Paty ging 01/22/2025 3:1 9 PM EDT Narrative 01/22/2025 4:43 PM EDT [place] [address] XRay Report Signed Patient: Mohan Gonzalez MR#: [id number] : 1960 Acct:[id number] Age/Sex: 64 / M ADM Date: 01/22/25 Loc: .ED Attending Dr: Ordering Physician: Annie Huber DO Date of Service: 01/22/25 Procedure(s): XR chest 1V Accession Number(s): [id number] cc: Annie Huber DO; Samantha Gonzales MD EXAMINATION: XR CHEST CLINICAL INFORMATION: edema COMPARISON: Femoral 2024 TECHNIQUE: Frontal view of the chest [...] 01/22/25 1641 DD/ 1519 TD/TT: 01/22/25 1620 Flexo Press Operator: Procedure Note Donotuseinterpreter, Image - 01/22/[address] [address] XRay Report Signed Patient: Mohan Gonzalez AMR#: [id number] : 1960cct:[id number] Age/Sex: 64 / MADM Date: 01/22/25 Loc: HO.ED Attending Dr: Ordering Physician: Annie Huber DO Date of Service: 01/22/25 Procedure(s): XR chest 1V Accession Number(s): [id number] cc: Annie Huber DO; Samantha Gonzales MD [...] 01/22/25 1641 DD/ 1519 TD/TT: 01/22/25 1620 Flexo Press Operator: [facility] External Provider IMG XR PROCEDURES Final Result * Hm Colonoscopy (09/20/2023) Colonoscopy Normal Normal Historical Provider HEALTH MAINTENANCE Final Result * Hepatitis C Antibody with Reflex to HCV, RNA, Quantitative, Real-Time PCR (01/28/2023 9:34 AM EDT) Hepatitis C Antibody NON-REACT GENI NON-REACT GENI [facility] Index 0.04 <1.00 [facility] Comment: HCV antibody was non-reactive. There is no laboratory evidence of HCV infection. In most cases, no further action is required. However, if recent HCV exposure is suspected, a test for HCV RNA (test code 43435) is suggested. For additional information please refer to http://education.fitkit/faq/QTY76a2 (This link is being provided for informational/ educational purposes only.) Blood Venous blood specimen / Unknown 01/28/2023 9:34 AM EDT 01/28/2023 9:34 AM EDT Narrative [facility] - 01/28/2023 9:34 PM EDT FASTING:YES FASTING: YES us Kerwin Mendoza MD LAB BLOOD ORDERABLES Final Resul t [facility] [address], [place] [phone] [facility] [employer] [facility] [address] [place] [phone] from Last 3 Months or Most Recently Relevant to Health Maintenance [place] [address] [place] [address] C3 Care Teams [employer] Relationship Specialty Start Date End Date Samantha Gonzales MD [address] [place] [phone] PCP - General Family Medicine 07/09/13
--- OUTSIDE RECORDS SUMMARY | 2025-04-22 09:57 | XMS_ITS | Encounter Summary ---
Author Organization [employer] Address [address] [facility] 7t [place] [address] Care Team Providers Care Subway Train Operator Name Role Phone Samantha Gonzales MD Primary Care Provider [phone] Reason for Referral * Consultation (Routine) - Canceled Specialty Diagnoses / Procedures Referred By Mildred t Referred To Contact Pharmacy Diagnoses Essential hypertension Samantha Gonzales MD [address] [place] [address] Phone: tel: fax: Referral ID Status Reason Start Date Expiration Date V isits Requested Visits Authorized [id number] Canceled Consult and Treat 01/29/2025 01/29/2026 6 6 * Consultation (Routine) - Pending Review Specialty Diagnoses / Procedures Referred By Contac t Referred To Contact Pharmacy Diagnoses Essential hypertension Renal cell cancer, left (CMS/HCC) Samantha Gonzales MD [address] [place] [address] Phone: tel: fax: Referral ID Status Reason Start Date Expiration Date Visits Requested Visits Authorized [id number] Pending Review Continuity of Care 01/29/2025 01/29/2026 6 6 * Consultation (Routine) - Authorized Specialty Diagnoses / Procedures Referred By Contac t Referred To Contact Wound Care Diagnoses Open wound of lower leg, unspecified laterality, initial encounter Chronic venous stasis Samantha Gonzales MD [address] [place] [address] Phone: tel: fax: [facility] [address] [place], [place] Phone: tel: fax: Referral ID Status Reason Start Date Expiration Date Visits Requested Visits Authorized [id number] Authorized Specialty Services Required 01/18/2025 01/18/2026 12 12 Encounter Details Date Type Department Care Team (Late st Contact Info) Description 01/17/2025 Orders Only [facility] [address] [place] [id number] Samantha Gonzales MD [address] [place] [address] Open wound of lower leg, unspecified laterality, [...] Description 05/14/2025 10:30 AM EDT Clinical Support [facility] [address] [place] [address] Pending Results Name Type Priority Associated Diagnoses [...] PM EDT Narrative 01/22/2025 4:43 PM EDT [address] [address] XRay Report Signed Patient: Mohan Gonzalez MR#: [id number] : 1960 Acct:[id number] Age/Sex: 64 / M ADM Date: 01/22/25 Loc: HO.ED Attending Dr: Ordering Physician: Annie Huber DO Date of Service: 01/22/25 Procedure(s): XR chest 1V Accession Number(s): [id number] cc: Annie Huber DO; Samantha Gonzales MD [...] 01/22/25 1641 DD/ 1519 TD/TT: 01/22/25 1620 Video Clerk: Procedure Note Donotuseinterpreter, Image - 01/22/[address] [address] XRay Report Signed Patient: Mohan Gonzalez AMR#: [id number] : 1960cct:[id number] Age/Sex: 64 / MADM Date: 01/22/25 Loc: .ED Attending Dr: Ordering Physician: Annie Huber DO Date of Service: 01/22/25 Procedure(s): XR chest 1V Accession Number(s): [id number] cc: Annie Huber DO; Samantha Gonzales MD [...] 01/22/25 1641 DD/ 1519 TD/TT: 01/22/25 1620 Video Clerk: [facility] External Provider IMG XR [...] documented as of this encounter Care Teams Subway Train Operator Relationship Specialty Start Date End Date Samantha Gonzales MD [address] [place] [address] PCP - General Family Medicine 07/09/13 [facility] 05/17/24 03/29/25 documented as of this encounter
--- OUTSIDE RECORDS SUMMARY | 2025-04-22 09:57 | XMS_ITS | Encounter Summary ---
Author Organization [employer] Address [address] [facility] 7t [place] [address] Care Team Providers Care Dairy Quality Assurance Officer Name Role Phone Samantha Gonzales MD Primary Care Provider [phone] Reason for Visit * Reason Onset Date Comments Appointment Request 01/12/2025 Encounter Details Date Type Department Care Team ([facility] st Contact Info) Description 01/12/2025 Telephone [facility] [address] [place], [place] [phone] Samantha Gonzales MD [address] [place], [place] [phone] Appointment Request Social History Tobacco Use Types [...] to [facility]. Please return call to reschedule 01/12 appointment [phone] documented in this encounter Plan of Treatment Upcoming Encounters Date Type Department Care Team (Late st Contact Info) Description 05/14/2025 10:30 AM EDT Clinical Support [facility] [address] [place] [address] documented as of this encounter Visit Diagnoses Not on filedocumented in this encounter Additional Health Concerns Assessment Noted Time PHQ-9 Depression Total Score: 0 06/25/20 24 11:09 AM EST documented as of this encounter Care Teams Dairy Quality Assurance Officer Relationship Specialty Start Date End Date Samantha Gonzales MD [address] [place] [address] PCP - General Family Medicine 07/09/13 [facility] 05/17/24 03/29/25 documented as of this encounter
--- OUTSIDE RECORDS SUMMARY | 2025-04-22 09:57 | XMS_ITS | Encounter Summary ---
Author Organization [employer] Address [address] [facility] 7t [place] [address] Care Team Providers Care Supervisor Multifocal Lens Name Role Phone Samantha Gonzales MD Primary Care Provider [phone] Reason for Visit * Reason Onset Date Comments Nurse Triage 06/22/2024 Encounter Details Date Type Department Care Team ([facility] st Contact Info) Description 06/22/2024 Telephone [facility] [address] [place], [place] [phone] Samantha Gonzales MD [address] [place], [place] [phone] Nurse Triage Social History Tobacco Use Types [...] to Pt reports that a person from [employer] comes every 2-3 days and changes dressing [...] booking. Pt will have another visit with [employer] prior to apt. Protocol Used: Wound Infection [...] Description 05/14/2025 10:30 AM EDT Clinical Support [facility] [address] [place] [address] documented as of this encounter Visit Diagnoses Not on filedocumented in this encounter Additional Health Concerns Assessment Noted Time PHQ-9 Depression Total Score: 3 12/15/19 23 1:37 PM EDT documented as of this encounter Care Teams Supervisor Multifocal Lens Relationship Specialty Start Date End Date Samantha Gonzales MD [address] [place] [address] PCP - General Family Medicine 07/09/13 [facility] 05/17/24 03/29/25 documented as of this encounter
--- OUTSIDE RECORDS SUMMARY | 2025-04-22 09:57 | XMS_ITS | Clinical Summary ---
Author Organization [facility] Address [address] [place] [address] [place] [address] Phone Care Team Providers Care Replanting Machine Crewman Name Role Phone Vito Maki MD Primary [...] file Medical Devices Not on file Insurance [facility] [employer] C3 ACO C3 ACO C3 ACO C3 [place] [id number] [place] [address] C[employer] [place] [address] [place] [address] [facility] [place] [id number] [facility] C3 ACO Care Teams Replanting Machine Crewman Relationship Specialty Start Date End Date Vito Maki MD [email or web address] PCP - General Family Medicine 01/29/22 Additional Source Comments The information contained in this document represents components of the legal health record. It is not the complete legal health record.[facility]
--- OUTSIDE RECORDS SUMMARY | 2025-04-22 09:57 | XMS_ITS | Encounter Summary ---
Author Organization [employer] Address [address] [facility] 7t [place] [address] Care Team Providers Care Burning Plant Operator Name Role Phone Samantha Gonzales MD Primary Care Provider [phone] Encounter Details Date Type Department Care Team ([facility] st Contact Info) Description 04/18/2025 Telephone [facility] MED & PEDS [address] [place], [place] [phone] Sarah Leon MD [address] [place] [address] Social History Tobacco Use Types Packs/Day Years [...] encounter Miscellaneous Notes * Telephone Encounter - Sarah Leon MD - 04/18/2025 7:04 PM EDT Was called by [facility] Visiting nurse regarding this patient of who has loose stools x 3 days. Known hx of leg cellulitis and ethanol abuse. No fever but pulse of about 110.Good output of urine per patient. Has imodium at home for diarrhea. No blood in stools. Advised to continue hydrating well,use imodium prn,[facility] will visit again on Apr 20Saturday.Advised [facility] to inform us if worse etc.. Will notify patient`s PCP as next visit is on 05-14. documented in this encounter Plan of Treatment Upcoming Encounters Date Type Department Care Team (Late st Contact Info) Description 05/14/2025 10:30 AM EDT Clinical Support [facility] [address] [place] [phone] documented as of this encounter Visit Diagnoses Not on filedocumented in this encounter Additional Health Concerns Assessment Noted Time PHQ-9 Depression Total Score: 0 06/25/20 24 11:09 AM EST documented as of this encounter Care Teams Burning Plant Operator Relationship Specialty Start Date End Date Samantha Gonzales MD [address] [place] [phone] PCP - General Family Medicine 07/09/13 documented as of this encounter
--- OUTSIDE RECORDS SUMMARY | 2025-04-22 09:57 | XMS_ITS | Encounter Summary ---
Author Organization [facility] Address [address] [place] [address] Phone Care Team Providers Care Geography Head Name Role Phone Vito Maki MD Primary Care Provider [phone] Encounter Details Date Type Department Care Team (Late st Contact Info) Description 01/29/2022 Transcribe Orders [facility] [address] [place] [address] Vito Maki MD [address] [facility], [address], [address] [place] [address] [email or web address] Diagnosis unknown (Primary Dx) Social History Tobacco [...] EDT) WBC 10.18 4.00 - 11.00 K/uL [facility] RBC 3.91 3.90 - 5.69 M/uL [facility] HGB 9.1(L) 12.4 - 17.3 g/dL [facility] HCT 30.6(L) 37.0 - 51.0 % [facility] PLT 302 140 - 430 K/uL [facility] MCV 78.3 78.0 - 97.0 fL [facility] MCH 23.3(L) 25.0 - 33.0 pg [facility] MCHC 29.7(L) 32.0 - 36.0 g/dL [facility] RDW 16.7(H) 11.0 - 15.0 % [facility] MPV 9.4 8.4 - 12.8 fl [facility] NRBC 0.00 0 /100 WBCs [facility] ABSOLUTE NRBC 0.00 0 K/uL [facility] Blood 01/29/2022 7:00 AM EDT 01/29/2022 4:20 PM EDT us Vito Maki MD LAB BLOOD ORDERABLES Final Resul t [facility] [address] [place] [address] * (ABNORMAL) Comprehensive metabolic panel (01/29/2022 7:00 AM EDT) SODIUM 139 133 - 146 mmol/L [facility] POTASSIUM 3.7 3.3 - 5.1 mmol/L [facility] Comment:Specimen slightly he molyzed, result may be falsely elevated. CHLORIDE 95(L) 96 - 108 mmol/L [facility] CO2 26 21 - 35 mmol/L [facility] BUN 42(H) 6 - 19 mg/dL [facility] CREATININE 1.20 0.5 - 1.5 mg/dL [facility] GLUCOSE 110(H) 70 - 99 mg/dL [facility] ALBUMIN 3.8(L) 3.9 - 4.8 g/dL [facility] TOTAL PROTEIN 7.2 6.5 - 8.0 g/dL [facility] CALCIUM 9.3 8.4 - 10.3 mg/dL [facility] ALKALINE PHOSPHATASE 120(H) 39 - 117 U/L [facility] TOTAL BILIRUBIN 0.6 0.0 - 1.2 mg/dL [facility] AST 21 0 - 37 U/L [facility] ALT 11 0 - 40 U/L [facility] GLOBULIN 3.4 1 - 4.8 g/dL [facility] EGFR 69 >59 mL/min/1.7 3m2 [facility] Comment:Estimated glomerular filtration rate calculated using the CKD-EPI refit equation. ANION GAP 22(H) 10 - 20 mmol/L [facility] Blood 01/29/2022 7:00 AM EDT 01/29/2022 4:20 PM EDT us Vito Maki MD LAB BLOOD ORDERABLES Final Resul t [address] [address] documented in this encounter Visit Diagnoses Diagnosis Diagnosis unknown- Primary documented in this encounter Care Teams Geography Head Relationship Specialty Start Date End Date Vito Maki MD [email or web address] PCP - General Family Medicine 01/29/22 documented as of this encounter Additional Source Comments The information contained in this document represents components of the legal health record. It is not the complete legal health record.[facility]
== END 2025-04-22 09:20 | disposition home or self-care (01) ==
LOC: HO.US 09:19
PROVIDERS: Visit Provider Family Medicine
DX: K76.9 Liver disease, unspecified (principal); K76.0 Fatty (change of) liver, not elsewhere classified; F10.90 Alcohol use, unspecified, uncomplicated
CPT/HCPCS: 76700; 76981

== ENCOUNTER → 2025-04-22 09:22 | Outpatient (BNV) | payer MEDICAID, SELFPAY | PROVIDERS: Visit Provider Radiology Diagnostic Radiology | DX: N18.31 Chronic kidney disease, stage 3a (principal) | CPT/HCPCS: 76700 ==

== ENCOUNTER 2025-04-25 06:17 | Emergency (ER) | payer MEDICAID, SELFPAY ==
--- NOTE | ~2025-04-25 | CT_ITS ---
CLINICAL HISTORY: fall, head strike CT head without contrast Comparison: 12/10/2024 Findings: No new intra-axial mass, midline shift, hydrocephalus, or acute hemorrhage. There is moderate diffuse atrophy. The visualized paranasal sinuses and mastoid air cells are normal. The orbits are unremarkable. No skull fracture. IMPRESSION: 1. No acute intracranial findings. This document has been electronically signed by: Naga Lucio MD on 04/25/2025 08:52:40
--- NOTE | ~2025-04-25 | CT_ITS ---
CLINICAL HISTORY: fall CT cervical spine without contrast Comparison: 12/10/2024 Findings: Vertebral alignment is within normal limits. Multiple level degenerative disc, facet, and uncovertebral joint change. No acute fractures or dislocations. Visualized intracranial contents are unremarkable. Soft tissues of the neck are normal. Lung apices are clear. IMPRESSION: No acute findings. This document has been electronically signed by: Naga Lucio MD on 04/25/2025 08:53:13
--- NOTE | 2025-04-25 06:29 | ECG_ITS ---
Test Reason : FALL Blood Pressure : */* mmHG Vent. Rate : 77 BPM Atrial Rate : 77 BPM P-R Int : 226 ms QRS Dur : 124 ms QT Int : 420 ms P-R-T Axes : 35 -43 122 degrees QTcB Int : 475 ms Sinus rhythm with 1st degree A-V block Left axis deviation Non-specific intra-ventricular conduction delay Nonspecific T wave abnormality Abnormal ECG When compared with ECG of 13-Mar-2025 09:43, ST no longer depressed in Lateral leads Nonspecific T wave abnormality, worse in Inferior leads T wave inversion no longer evident in Anterior leads QT has shortened Referred By: Generic ED Physician Electronically Signed By: EDITH MARROQUIN MD
[2025-04-25 06:35] VITALS: BP 128/85; BP 140/90; PULSE 75; PULSE 78; RESP 15; TEMP 36.4; O2SAT 96; O2SAT 99; BMI 35.8
--- NOTE | 2025-04-25 06:40 | ED_ITS ---
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 He has chronic issues with his legs, ambulates with a walker. Related Data Home Medications ?Medication ?Instructions ?Recorded ?Confirmed rosuvastatin 5 mg tablet 5 mg PO BEDTIME 08/26/2302/10 allopurinol 300 mg tablet 300 mg PO DAILY 07/29/2402/10 ascorbate calcium (vitamin C) 500 500 mg PO BID 01/22/25 mg tablet calcium 250 mg (as 1 tab PO TID 10/16/24 carbonate)-vitamin D3 3.125 mcg (125 unit) tablet (Oyster Shell Calcium-Vitamin D3) cholecalciferol (vitamin D3) 50 50 mcg PO DAILY 01/22/25 mcg (2,000 unit) tablet (Vitamin D3) ferrous sulfate 325 mg (65 mg 325 mg PO DAILY 10/16/24 01/22/25 iron) tablet,delayed release akduxumhjnau-zjrddpre-ksqp 1 tab PO DAILY 10/16/2402/10 fumarate 7.5 mg-folic acid 400 mcg tablet pyridoxine (vitamin B6) 50 mg 50 mg PO DAILY 10/16/24 01/22/25 tablet (Vitamin B-6) thiamine HCl (vitamin B1) 100 mg 100 mg PO DAILY 10/1601/22/25 tablet (Vitamin B-1) acetaminophen 325 mg tablet 650 mg PO Q4H PRN Pain (Sc minerva 01/22/25 01/22/25 Score 4-6) metoprolol succinate 25 mg 25 mg PO DAILY 01/22/2502/10 tablet,extended release 24 hr Previous Rx's ?Medication ?Instructions ?Recorded magnesium oxide 400 mg (241.3 mg 400 mg PO DAILY #10 t abs 04/25/23 magnesium) tablet folic acid 1 mg tablet 1 mg PO DAILY #30 tabs 10/01 doxycycline monohydrate 100 mg 100 mg PO BID #14 caps 01/24/25 capsule torsemide 20 mg tablet 20 mg PO Q OTHER DAY 90 days #45 02/05/25 tabs Allergies Allergy/AdvReac Type Severity Reaction Status Date / Time azithromycin (AZITHROMYCIN) Allergy Severe FACIAL Verified 04/25/25 06:40 SWELLING hydrochlorothiazide (HCTZ) Allergy Severe Facial Verified 04/25/25 06:40 Swelling Review of Systems 2 Constitutional: Constitutional: Reports as per [facility] Past Medical History Medical History Abdominal wall abscess at site of surgical wound CKD stage 3a, GFR 45-59 ml/min Colitis Renal mass Renal cell carcinoma Alcohol use disorder Hyperlipidemia Ascending aortic aneurysm Alcoholic steatohepatitis Seborrheic dermatitis DEBORAH (obstructive sleep apnea) History of rhabdomyolysis Hx of lower gastrointestinal bleeding Hx of sepsis History of DVT of lower extremity Chronic ulcer of leg Chronic venous stasis HTN (hypertension) Anemia Anemia Surgical History H/O partial nephrectomy Hx of colonoscopy Family History Family History Mother Dementia Maternal Grandmother Dementia Social History Social History Household Members: Family Household Members Other:: mother who has dementia Housing: House Housing Other:: 4 stairs to get into house. Pt lives in basement Do you presently have visiting nurse or other home services: Yes Alcohol intake: current Alcohol intake frequency: 0-2 drinks per day Alcohol type: hard liquor Comment: pt refused socks Patient Tobacco Use Status: Never used Tobacco Advance Directives: Yes Advance Directives on File: Yes Advance Directives Date on File: 04/13/22 Do you have a plan to hurt others: No Plan service: No Current occupational status: disabled Physical Exam 2 Vital Signs: Vital Signs: Last Vital Signs Temp 98.4 F 04/25/25 12:00 Pulse 70 04/25/25 12:00 Resp 15 04/25/25 12:00 BP 127/70 04/25/25 12:00 Pulse Ox 97 04/25/25 12:00 O2 Del Method Room Air 04/25/25 12:00 BMI result Body Mass Index 35.8 Const: Other: * Gen: ?Appears older than stated age, clinically intoxicated, no obvious facial trauma * HEENT: Slightly dry oral mucosa, no blood in the airway, no scleral icterus * Neck: Cervical collar in place * CV: RRR, no obvious murmurs appreciated * Resp: ?No wheezing rales rhonchi no stridor moving air well * Abd: ?Bowel sounds are present, no tenderness no rebound no rigidity * MSK: FROM, strength 5/5 all extremities, pelvis is stable no deformities, bilateral pes planus * Skin: Chronic venous stasis changes bilateral lower extremities with lymphedema * Neuro: ?Alert and oriented x3, moving upper and lower extremities symmetrically, no obvious facial asymmetry noted Medications Administered Discontinued Medications Generic Name Dose Route Start Last Admin Trade Name Freq PRN Reason Stop Dose Admin Sodium Chloride 1,000 mls @ 999 mls/hr 04/25/25 06:45 04/25/25 10:58 Ns IV 04/25/25 07:45 Infused .Q1H1M PROMISE Infusion Medical Decision Making Medical Decision Making [facility] Narrative: 6:44 AM 04/25/2025 (Dr. Gil Jane): See my differential as below for workup, has had 2 falls 1 mechanical fall, 2nd likely due to alcohol intake, we will make sure there were no underlying medical problems contributing to his presentation, thereafter we will need to determine whether he is able to walk with his walker at baseline otherwise may anticipate that he would go to SNF 1:27 PM 04/25/2025 (Dr. Gil Jane): Patient ate, ambulated with a walker without any other assistance, clinically sober we will be discharging Differential Diagnosis Differential Diagnoses: The differential diagnosis associated with the presentation includes (Syncope, nonsyncopal fall, failure to thrive, head injury, neck injury, dehydration, ACS) Admission/Observation Consideration of admission/observation: Escalation of care including admission/observation considered 2022 Emergency Medicine Coding Guide from [email or web address] on 04/25/2025 All calculations should be rechecked by clinician prior to use RESULT SUMMARY: 5 Estimated Level of Service Problems: Moderate (4) Risk: High (5) Data: Extensive (5) NARRATIVE MDM: This patient's problem complexity is Moderate as patient: has a new undiagnosed problem with uncertain prognosis but that could be serious. This patient's risk is High due to: overall presentation requiring evaluation for a potentially High-risk process. This patient's data complexity is Extensive due to: -multiple tests ordered/reviewed -independent interpretation of imaging or EKG INPUTS: Number and Complexity ?> 5 = 4: undiagnosed new problem, uncertain outcome (e) Risk level ?> 4 = High Tests ordered ?> 3 = =3 Tests results reviewed (excluding labs) ?> 3 = =3 Prior external notes reviewed ?> 0 = 0 Assessment requiring and independent historian ?> 0 = No Independent interpretation of tests ?> 1 = Yes Discussed management/test interpretation w/external professional ?> 0 = No Lab Data MDM Lab Attestation statement: I reviewed the patient's lab results. 04/25/25 06:52 04/25/25 06:52 Labs: Lab Results 04/25/25 Range/Units 06:52 WBC 4.8 (4.8-10.8) X10*3/uL RBC 3.24 L (4.60-5.80) X10*6/uL Hgb 9.8 L (14.0-18.0) g/dl Hct 29.9 L (42.0-52.0) % MCV 92.3 (80.0-98.0) fL MCH 30.2 (27.0-33.0) pg MCHC 32.8 (31.0-36.0) g/dl RDW 15.8 (11.0-16.0) % Plt Count 150 L (160-400) X10*3/uL MPV 8.4 L (9.4-12.4) fL Immature Gran % (Auto) 0.4 (0.0-0.4) % Neut % (Auto) 35.5 L (45-73) % Lymph % (Auto) 48.6 H (20-40) % [place] % (Auto) 9.6 (2-11) % Eos % (Auto) 4.6 H (0-4) % Baso % (Auto) 1.3 (0-2) % Lymph # (Auto) 2.3 (1.2-4.9) X10*3/uL [place] # (Auto) 0.5 (0.1-1.2) X10*3/uL Eos # (Auto) 0.2 (0.0-0.4) X10*3/uL Baso # (Auto) 0.1 (0.0-0.2) X10*3/uL Abs Immat Gran (auto) 0.02 (0.00-0.03) X10*3/uL Absolute Neuts (auto) 1.7 L (2.0-8.3) x10*3/uL Absolute Nucleated RBC 0.000 (0.0-0.012) X10*3/uL Nucleated RBC % (auto) 0.0 (0.0-0.2) /100WBC Sodium 146 H (135-145) mmol/L Potassium 4.1 (3.3-5.1) mmol/L Chloride 111 H (96-108) mmol/L Carbon Dioxide 23 (22-29) mmol/L Anion Gap 16 (12-20) BUN 20 H (9-16) mg/dL Creatinine 1.14 (0.5-1.4) mg/dL Estim Creat Clear Calc 76.0 Estimated GFR > 60 Random Glucose 100 (60-115) mg/dL Calcium 8.7 (8.4-10.2) mg/dL Total Bilirubin 0.5 (0.0-1.0) mg/dL AST 52 H (5-37) U/L ALT 29 (0-40) U/L Alkaline Phosphatase 126 H (39-117) U/L Troponin I High Sens < 2.7 (<3.5-35.0) ng/L Total Protein 7.4 (6.5-8.0) g/dL Albumin 3.9 (3.5-5.0) g/dL Urine Color Yellow Urine Appearance Clear Urine pH 5.0 (5.0-9.0) Ur Specific [place] 1.010 (1.005-1.025) Urine Protein Negative (Neg-Trace) mg/dL Urine Glucose (UA) Negative (Negative) mg/dL Urine Ketones Negative (Negative) mg/dL Urine Blood Negative (Negative) Urine Nitrite Negative (Negative) Ur Leukocyte Esterase Negative (Negative) Urine RBC 0-2 (0-2) /HPF Urine WBC 0-5 (0-5) /HPF Ur Squamous Epith Cells 0-2 (0-2) /HPF Urine Bacteria None Seen (None Seen) Hyaline Casts 0-2 (0-2) /LPF Urine Opiates Screen Not Detected (Not Detect) Ur Buprenorphine Scrn Not Detected (Not Detect) ng/mL Ur Oxycodone Screen Not Detected (Not Detect) ng/mL Urine Methadone Screen Not Detected (Not Detect) ng/mL Urine Fentanyl Screen Not Detected (Not Detect) Ur Barbiturates Screen Not Detected (Not Detect) Ur Phencyclidine Scrn Not Detected (Not Detect) Ur Amphetamines Screen Not Detected (Not Detect) U Benzodiazepines Scrn Not Detected (Not Detect) Urine Cocaine Screen Not Detected (Not Detect) U Marijuana (THC) Screen Not Detected (Not Detect) Ethyl Alcohol 396 H* mg/dL Independent Interpretation I performed an independent interpretation of an: EKG (77 beats per minute otherwise normal ECG without dysrhythmia, AV chuy blocks or ST-T changes to suspect underlying ACS, my independent interpretation) Radiology Impression Discussion of test interpretation with radiology: I have reviewed the radiologist's reading. (No acute findings) Independent Historian Clinical information obtained from an independent historian. History obtained from or confirmed by: EMS Discharge Plan Discharge Clinical Impression: Acute alcohol intoxication, Contusion of head, Bilateral leg pain Patient Disposition: Home, Self-Care Additional Instructions: Evaluated in the setting of alcohol intoxication and fall, did have CT brain, cervical spine, blood work EKG all of which has been reassuring. Observed in the emergency department until clinical sobriety and discharged home. Follow up your PCP any issues or concerns come back to the ER, if drinking becomes a problem or if it is a problem please express interest in detox Prescriptions: No Action torsemide 20 mg tablet 20 mg PO Q OTHER DAY 90 Days Qty: 45 3RF magnesium oxide 400 mg (241.3 mg magnesium) tablet 400 mg PO DAILY Qty: 10 0RF rosuvastatin 5 mg Tablet 5 mg PO BEDTIME folic acid 1 mg tablet 1 mg PO DAILY Qty: 30 0RF acetaminophen 325 mg Tablet 650 mg PO Q4H PRN (Reason: Pain (Scale Score 4-6)) metoprolol succinate 25 mg Tablet Extended Release 24 Hr 25 mg PO DAILY doxycycline monohydrate 100 mg capsule 100 mg PO BID Qty: 14 0RF thiamine HCl (vitamin B1) [Vitamin B-1] 100 mg Tablet 100 mg PO DAILY pyridoxine (vitamin B6) [Vitamin B-6] 50 mg Tablet 50 mg PO DAILY calcium carbonate-vitamin D3 [Oyster Shell Calcium-Vit D3] 250 mg-3.125 mcg (125 unit) tablet 1 tab PO TID cholecalciferol (vitamin D3) [Vitamin D3] 50 mcg (2,000 unit) Tablet 50 mcg PO DAILY uheqluse-dpc-tjca fum-folic ac 7.5 mg iron-400 mcg tablet 1 tab PO DAILY ferrous sulfate 325 mg (65 mg iron) Tablet,Delayed Release (Dr/Ec) 325 mg PO DAILY allopurinol 300 mg tablet 300 mg PO DAILY ascorbate calcium (vitamin C) 500 mg tablet 500 mg PO BID Print Language: Georgian
[2025-04-25 07:02] LABS: MANUAL DIFF FLAG NO
[2025-04-25 07:05] LABS: Hematocrit 29.9 % (42.0-52.0); Hemoglobin 9.8 g/dl (14.0-18.0); Imm Gran Abs Auto 0.02 X10*3/uL (0.00-0.03); Imm Gran Pct Auto 0.4 % (0.0-0.4); Lymphocytes Absolute Auto 2.3 X10*3/uL (1.2-4.9); Mean Corpuscular HGB Conc 32.8 g/dl (31.0-36.0); Mean Corpuscular Hemoglobin 30.2 pg (27.0-33.0); Mean Corpuscular Volume 92.3 fL (80.0-98.0); NRBC Abs Auto 0.000 X10*3/uL (0.0-0.012); NRBC Pct Auto 0.0 /100WBC (0.0-0.2); Platelet Count 150 X10*3/uL (160-400); Red Blood Count 3.24 X10*6/uL (4.60-5.80); White Blood Count 4.8 X10*3/uL (4.8-10.8)
[2025-04-25 07:13] LABS: Cannabinoid Screen Urine Not Detected (Not Detect)
[2025-04-25 07:23] LABS: Appearance Urine Clear; Glucose Urine UA Negative (Negative); PH 5.0 (5.0-9.0); Specific Gravity - Urine 1.010 (1.005-1.025)
[2025-04-25 07:29] LABS: Alanine Aminotransferase 29 U/L (0-40); Albumin Level 3.9 g/dL (3.5-5.0); Alkaline Phosphatase 126 U/L (39-117); Anion Gap 16 (12-20); Aspartate Amino Transferase 52 U/L (5-37); Blood Urea Nitrogen 20 mg/dL (9-16); Calcium 8.7 mg/dL (8.4-10.2); Carbon Dioxide 23 mmol/L (22-29); Chloride 111 mmol/L (96-108); Creatinine Clr Calc Pharmacy 76.0; Estimated Glomerular Filt Rate > 60; Potassium 4.1 mmol/L (3.3-5.1); Sodium 146 mmol/L (135-145); Total Protein 7.4 g/dL (6.5-8.0)
[2025-04-25 07:47] LABS: Troponin-I High Sensitivity < 2.7 ng/L (<3.5-35.0)
[2025-04-25 08:00] VITALS: BP 126/74; PULSE 74; RESP 19; TEMP 36.9; O2SAT 96
--- OUTSIDE RECORDS SUMMARY | 2025-04-25 08:34 | XMS_ITS | Encounter Summary ---
Author Organization [facility] Address [address] [place] [address] Phone Care Team Providers Care Tankerman Name Role Phone Vito Maki MD Primary Care Provider [phone] Encounter Details Date Type Department Care Team (Late st Contact Info) Description 01/29/2022 Transcribe Orders [facility] [address] [place] [address] Vito Maki MD [address] [facility], [address] [place] [address] [email or web address] Diagnosis unknown (Primary Dx) Social History Tobacco [...] EDT) WBC 10.18 4.00 - 11.00 K/uL [facility] RBC 3.91 3.90 - 5.69 M/uL [facility] HGB 9.1(L) 12.4 - 17.3 g/dL [facility] HCT 30.6(L) 37.0 - 51.0 % [facility] PLT 302 140 - 430 K/uL [facility] MCV 78.3 78.0 - 97.0 fL [facility] MCH 23.3(L) 25.0 - 33.0 pg [facility] MCHC 29.7(L) 32.0 - 36.0 g/dL [facility] RDW 16.7(H) 11.0 - 15.0 % [facility] MPV 9.4 8.4 - 12.8 fl [facility] NRBC 0.00 0 /100 WBCs [facility] ABSOLUTE NRBC 0.00 0 K/uL [facility] Blood 01/29/2022 7:00 AM EDT 01/29/2022 4:20 PM EDT us iVto Maki MD LAB BLOOD ORDERABLES Final Resul t [facility] [address] [place] [address] * (ABNORMAL) Comprehensive metabolic panel (01/29/2022 7:00 AM EDT) SODIUM 139 133 - 146 mmol/L [facility] POTASSIUM 3.7 3.3 - 5.1 mmol/L [facility] Comment:Specimen slightly he molyzed, result may be falsely elevated. CHLORIDE 95(L) 96 - 108 mmol/L [facility] CO2 26 21 - 35 mmol/L [facility] BUN 42(H) 6 - 19 mg/dL [facility] CREATININE 1.20 0.5 - 1.5 mg/dL [facility] GLUCOSE 110(H) 70 - 99 mg/dL [facility] ALBUMIN 3.8(L) 3.9 - 4.8 g/dL [facility] TOTAL PROTEIN 7.2 6.5 - 8.0 g/dL [facility] CALCIUM 9.3 8.4 - 10.3 mg/dL [facility] ALKALINE PHOSPHATASE 120(H) 39 - 117 U/L [facility] TOTAL BILIRUBIN 0.6 0.0 - 1.2 mg/dL [facility] AST 21 0 - 37 U/L [facility] ALT 11 0 - 40 U/L [facility] GLOBULIN 3.4 1 - 4.8 g/dL [facility] EGFR 69 >59 mL/min/1.7 3m2 [facility] Comment:Estimated glomerular filtration rate calculated using the CKD-EPI refit equation. ANION GAP 22(H) 10 - 20 mmol/L [facility] Blood 01/29/2022 7:00 AM EDT 01/29/2022 4:20 PM EDT us Vito Maki MD LAB BLOOD ORDERABLES Final Resul t [address] [address] documented in this encounter Visit Diagnoses Diagnosis Diagnosis unknown- Primary documented in this encounter Care Teams Tankerman Relationship Specialty Start Date End Date Vito Maki MD [email or web address] PCP - General Family Medicine 01/29/22 documented as of this encounter Additional Source Comments The information contained in this document represents components of the legal health record. It is not the complete legal health record.[facility]
--- OUTSIDE RECORDS SUMMARY | 2025-04-25 08:34 | XMS_ITS | Clinical Summary ---
Author Organization [facility] Address [address] [place] [address] [place] [id number] Phone Care Team Providers Care Supervisor Forming And Tempering Name Role Phone Vito Maki MD Primary Care Provider [phone] Social History Tobacco Use Types Packs/Day Years [...] file Medical Devices Not on file Insurance [facility] C3 ACO C3 ACO C3 ACO C3 [place] [id number] [place] [address] [employer] [address] [place] [address] [place] [address] [place] [id number] [facility] [place] [id number] [facility] C3 ACO Care Teams Supervisor Forming And Tempering Relationship Specialty Start Date End Date Vito Maki MD [email or web address] PCP - General Family Medicine 01/29/22 Additional Source Comments The information contained in this document represents components of the legal health record. It is not the complete legal health record.[facility]
[2025-04-25 10:00] VITALS: BP 125/67; PULSE 70; RESP 15; TEMP 36.9; O2SAT 97
[2025-04-25 12:00] VITALS: BP 127/70; PULSE 70; RESP 15; TEMP 36.9; O2SAT 97
[2025-04-25 13:58] VITALS: BP 126/71; PULSE 78; RESP 17; TEMP 36.7; O2SAT 98
[2025-04-25 14:21] VITALS: BP 126/71; PULSE 78; RESP 17; TEMP 36.7; O2SAT 98
== END 2025-04-25 14:22 | disposition home or self-care (01) ==
PROVIDERS: Emergency Provider Emergency Medicine; PCP Family Medicine
DX: F10.129 Alcohol abuse with intoxication, unspecified (principal); Y90.8 Blood alcohol level of 240 mg/100 ml or more; R11.2 Nausea with vomiting, unspecified; I44.0 Atrioventricular block, first degree; R51.9 Headache, unspecified; M54.2 Cervicalgia; R94.31 Abnormal electrocardiogram [ECG] [EKG]; Z79.899 Other long term (current) drug therapy; Z51.81 Encounter for therapeutic drug level monitoring
CPT/HCPCS: 36415; 70450; 72125; 80053; 80307; 81001; 84484; 85025; 93005; 96360; 96361; 99284; 99285

== ENCOUNTER → 2025-04-25 06:29 | Outpatient (BNV) | payer MEDICAID, SELFPAY | PROVIDERS: Emergency Provider Emergency Medicine; PCP Family Medicine; Visit Provider Internal Medicine Cardiovascular Disease | DX: I44.0 Atrioventricular block, first degree (principal); I45.9 Conduction disorder, unspecified | CPT/HCPCS: 93010 ==

== ENCOUNTER → 2025-04-25 06:40 | Outpatient (BNV) | payer MEDICAID, SELFPAY | PROVIDERS: Emergency Provider Emergency Medicine; PCP Family Medicine; Visit Provider Specialist | DX: M54.2 Cervicalgia (principal); S09.90XA Unspecified injury of head, initial encounter | CPT/HCPCS: 70450; 72125 ==

== ENCOUNTER 2025-05-25 19:48 | Emergency (ER) | payer MEDICAID, SELFPAY ==
--- NOTE | ~2025-05-25 | CT_ITS ---
CLINICAL HISTORY: trauma CT head without contrast Comparison: CT/REG/SR - CT HEAD/BRAIN WO IV CON - 04/25/25 07:37 EDT Findings: No intra-axial mass, midline shift, hydrocephalus, or acute hemorrhage. There is atrophy. There are mild nonspecific supratentorial white matter hypodensities most suggestive of chronic small-vessel ischemic changes. Atherosclerotic vascular disease. Minimal mucosal thickening and very small mucous retention cyst/polyp in right maxillary sinus. Otherwise sinuses and mastoid air cells are clear. The orbits are within normal limits. There is no acute skull fracture. IMPRESSION: 1. No acute intracranial findings. This document has been electronically signed by: Nicole Roberts MD on 05/25/2025 21:40:21
--- NOTE | ~2025-05-25 | CT_ITS ---
CLINICAL HISTORY: trauma CT cervical spine without contrast Comparison: CT/SR - CT CERVICAL SPINE WO IV CON - 04/25/25 07:37 EDT Findings: Slight dextrocurvature of cervical spine likely positional. Otherwise alignment is maintained. No subluxation. Vertebral body height is maintained. No acute fracture in the cervical spine. Craniocervical junction is intact. Degenerative changes at C5-6 and C6-7 levels. Prevertebral soft tissues within normal limits. 5 mm calcified nodule in right thyroid lobe posteriorly. No consolidation or effusion at the lung apices. IMPRESSION: No acute findings. This document has been electronically signed by: Nicole Roberts MD on 05/25/2025 21:44:32
[2025-05-25 19:57] VITALS: BP 142/78; BP 154/86; PULSE 65; RESP 12; TEMP 36.6; O2SAT 98; O2SAT 99; BMI 34.9
[2025-05-25 20:25] LABS: MANUAL DIFF FLAG NO
[2025-05-25 20:28] LABS: Hematocrit 28.3 % (42.0-52.0); Hemoglobin 9.1 g/dl (14.0-18.0); Imm Gran Abs Auto 0.01 X10*3/uL (0.00-0.03); Imm Gran Pct Auto 0.2 % (0.0-0.4); Lymphocytes Absolute Auto 2.6 X10*3/uL (1.2-4.9); Mean Corpuscular HGB Conc 32.2 g/dl (31.0-36.0); Mean Corpuscular Hemoglobin 29.4 pg (27.0-33.0); Mean Corpuscular Volume 91.6 fL (80.0-98.0); NRBC Abs Auto 0.000 X10*3/uL (0.0-0.012); NRBC Pct Auto 0.0 /100WBC (0.0-0.2); Platelet Count 183 X10*3/uL (160-400); Red Blood Count 3.09 X10*6/uL (4.60-5.80); White Blood Count 5.7 X10*3/uL (4.8-10.8)
[2025-05-25 20:46] LABS: Alanine Aminotransferase 8 U/L (0-40); Albumin Level 4.0 g/dL (3.5-5.0); Alkaline Phosphatase 120 U/L (39-117); Anion Gap 18 (12-20); Aspartate Amino Transferase 33 U/L (5-37); Blood Urea Nitrogen 21 mg/dL (9-16); Calcium 8.9 mg/dL (8.4-10.2); Carbon Dioxide 22 mmol/L (22-29); Chloride 110 mmol/L (96-108); Creatinine Clr Calc Pharmacy 94.1; Estimated Glomerular Filt Rate > 60; Magnesium 1.6 mg/dL (1.6-2.6); Potassium 4.2 mmol/L (3.3-5.1); Sodium 146 mmol/L (135-145); Total Protein 7.5 g/dL (6.5-8.0)
[2025-05-25 21:08] LABS: Cannabinoid Screen Urine Not Detected (Not Detect)
--- OUTSIDE RECORDS SUMMARY | 2025-05-25 21:10 | XMS_ITS | Clinical Summary ---
Author Organization [employer] Address [address] [place] [address] Care Team Providers Care Fisheries Management Biologist Name Role Phone Samantha Gonzales MD Primary Care Provider [phone] Adis Cordero RN Unavailable [phone] Wenceslao Mariee Unavailable Allergies Active Allergy Reactions Criticality Noted Date [...] 3 5 Active allopurinol (Zyloprim) 100 MG tabletIndications: History of gout TAKE 1 TABLET BY MOUTH EVERY MORNING 90 tablet 3 5 Active Active Problems Problem Noted Date Diagnosed Date Wound of left lower extremity 02/25/2025 Assessment & Plan (04/13/2025 4:46 PM EDT): - s/p antibiotic treatment for cellulitis - Currently following with [facility] wound care clinic - Continue treatment plan per [facility] wound care Assessment & Plan (02/25/2025 5:22 PM EDT): - s/p antibiotic treatment for cellulitis - Currently following with [facility] wound care clinic - Continue treatment plan per [facility] wound care Diarrhea 01/12/2025 Assessment & Plan (04/13/2025 4:46 PM EDT): - Seen by GI, Dr. Lenz, on 01/19/2025. Dr. Lenz's impression is IBS with diarrhea. - Hospitalized in [facility] ED in September 2023 for diarrhea and [...] advised to use judiciously. Will request his pharmacy clinical coordinator to assist in optimizing his magnesium level without causing diarrhea - Patient was advised to reduce alcohol consumption Assessment & Plan (02/25/2025 5:04 PM EDT): - Seen by GI, Dr. Lenz, on 01/19/2025. Dr. Lenz's impression is IBS with diarrhea. - Hospitalized in [facility] ED in September 2023 for diarrhea and [...] advised to use judiciously. Will request his pharmacy clinical coordinator to assist in optimizing his magnesium level [...] improvement Weakness 01/23/2024 Renal cell cancer, left (CMS/HCC) 07/25/2023 Assessment & Plan (04/13/2025 4:46 PM [...] thyroid nodule -Evaluate with US Subdural hematoma (CMS/HCC) 10/13/2022 Assessment & Plan (11/30/2022 6:18 AM [...] GSV ablation in Aug 2018 -following with [facility] wound care clinic, periodically when he has [...] GSV ablation in Aug 2018 -following with [facility] wound care clinic, periodically when he has open wounds. -currently followed by [facility] Wound care -usually discharged to visiting nurse [...] GSV ablation in Aug 2018 -following with [facility] wound care clinic, periodically when he has open wounds. -Last seen by [facility] Wound care in October 2021 -usually discharged [...] GSV ablation in Aug 2018 -following with [facility] wound care clinic, periodically when he has open wounds. -Last seen by [facility] Wound care in October 2021 -usually discharged [...] GSV ablation in Aug 2018 -following with [facility] wound care clinic, periodically when he has open wounds. -Last seen by [facility] Wound care in October 2021 -usually discharged [...] GSV ablation in Aug 2018 -following with [facility] wound care clinic, periodically when he has open wounds. -Last seen by [facility] Wound care in October 2021 -usually discharged [...] GSV ablation in Aug 2018 -following with [facility] wound care clinic, periodically when he has open wounds. -Last seen by [facility] Wound care in October 2021 -usually discharged [...] GSV ablation in Aug 2018 -following with [facility] wound care clinic, periodically when he has open wounds. -Last seen by [facility] Wound care in October 2021 -usually discharged [...] is frequently having diarrhea - following with pharmacy clinical coordinator - He has diarrhea due to alcohol withdrawal and IBS, and develops hypomagnesemia, then he receives IV Mg in ED with magnesium oxide prescription upon discharge. Assessment & Plan (02/25/2025 5:13 PM EDT): - On magnesium oxide supplementation, but pt is frequently having diarrhea - following with pharmacy clinical coordinator - He has diarrhea due to alcohol withdrawal and IBS, and develops hypomagnesemia, then he receives IV Mg in ED with magnesium oxide prescription upon discharge. Assessment & Plan (06/25/2024 12:14 PM EST): - 01/28/23 Magnesium 1.1 - On magnesium oxide supplementation, but pt is frequently having diarrhea - following with pharmacy clinical coordinator - dehydration due to diarrhea on 04/25/23, IVF with Mg given in ED - recheck Assessment & Plan (05/26/2023 6:52 AM EDT): - 01/28/23 Magnesium 1.1 - On magnesium oxide supplementation, but pt is frequently having diarrhea - following with pharmacy clinical coordinator - dehydration due to diarrhea on 04/25/23, IVF with Mg given in ED - recheck Assessment & Plan (04/25/2023 12:51 PM EDT): - 01/28/23 Magnesium 1.1 - On magnesium oxide supplementation, but pt is frequently having diarrhea - following with pharmacy clinical coordinator - dehydration due to diarrhea today; anticipate hypomagnesemia again -> sending ER for replacement Assessment & Plan (01/23/2023 4:07 PM EDT): [facility] Hospitalization on 10/30 - 11/02 Lab showed hypomagnesemia and thrombocytopenia Pt is prescribed magnesium supplement; encouraged to improve adherence Pt is advised to hold when he is having diarrhea Assessment & Plan (11/30/2022 6:23 AM EDT): [facility] Hospitalization on 10/30 - 11/02 Lab showed hypomagnesemia and thrombocytopenia Pt is prescribed magnesium supplement; encouraged to improve adherence Stage 2 chronic kidney disease 10/13/2022 Assessment & Plan (04/14/2025 6:32 PM EDT): -Licensed Appraiser: [facility]. Dr. Kennedy -Hx rhabdomyolysis, on hemodialysis for 1 month in November 2017 - December 2017 -His renal funciton was CKDII level 8231-9146 -Most recent POLLY in Sep 2022, both admission, held lisinopril, spironolactone, and torsemide during 1st admission, and resumed upon discharge -Avoid nephrotoxic drugs -Continue renal dosing Assessment & Plan (02/13/2025 8:47 AM EDT): -Licensed Appraiser: [facility]. Dr. Kennedy -Hx rhabdomyolysis, on hemodialysis for 1 month in November 2017 - December 2017 -His renal funciton was CKDII level 1243-5102 -Most recent POLLY in Sep 2022, both admission, held lisinopril, spironolactone, and torsemide during 1st admission, and resumed upon discharge -Last lab: 01/28/23 Sodium 135; Potassium 3.6 ; Chloride 99 ; Bicarb 24 ; Calcium 8.0; BUN 19 , Creatinine 1.02 ; EGFR 84 -Avoid nephrotoxic drugs -Continue renal dosing Assessment & Plan (10/14/2024 5:13 PM EST): -Licensed Appraiser: [facility]. Dr. Kennedy -Hx rhabdomyolysis, on hemodialysis for 1 month in November 2017 - December 2017 -His renal funciton was CKDII level 1606-2090 -Most recent POLLY in Sep 2022, both admission, held lisinopril, spironolactone, and torsemide during 1st admission, and resumed upon discharge -Last lab: 01/28/23 Sodium 135; Potassium 3.6 ; Chloride 99 ; Bicarb 24 ; Calcium 8.0; BUN 19 , Creatinine 1.02 ; EGFR 84 -Avoid nephrotoxic drugs -Continue renal dosing Assessment & Plan (07/26/2023 2:10 PM EST): -Licensed Appraiser: Dr. Kennedy, last appt in Sep 2021 -Hx rhabdomyolysis, on hemodialysis for 1 month in November 2017 - December 2017 -His renal funciton was CKDII level [id number] -Most recent POLLY in Sep 2022, both [...] Assessment & Plan (05/26/2023 6:49 AM EDT): -Licensed Appraiser: Dr. Kennedy, last appt in Sep 2021 -Hx rhabdomyolysis, on hemodialysis for 1 month in November 2017 - December 2017 -His renal funciton was CKDII level 2683-0772 -Most recent POLLY in Sep 2022, both admission, held lisinopril, spironolactone, and torsemide during 1st admission, and resumed upon discharge -Last lab: 01/28/23 Sodium 135; Potassium 3.6 ; Chloride 99 ; Bicarb 24 ; Calcium 8.0; BUN 19 , Creatinine 1.02 ; EGFR 84 -Avoid nephrotoxic drugs -Continue renal dosing Assessment & Plan (04/25/2023 12:49 PM EDT): -Licensed Appraiser: Dr. Kennedy, last appt in Sep 2021 -Hx rhabdomyolysis, on hemodialysis for 1 month in November 2017 - December 2017 -His renal funciton was CKDII level 6513-1148 -Most recent POLLY in Sep 2022, both admission, held lisinopril, spironolactone, and torsemide during 1st admission, and resumed upon discharge -Last lab: 01/28/23 Sodium 135; Potassium 3.6 ; Chloride 99 ; Bicarb 24 ; Calcium 8.0; BUN 19 , Creatinine 1.02 ; EGFR 84 -Avoid nephrotoxic drugs -Continue renal dosing Assessment & Plan (01/23/2023 4:04 PM EDT): -Licensed Appraiser: Dr. Kennedy, last appt in Sep 2021 -Hx rhabdomyolysis, on hemodialysis for 1 month in November 2017 - December 2017 -His renal funciton was CKDII level [id number] -Most recent POLLY in Sep 2022, both admission, held lisinopril, spironolactone, and torsemide during 1st admission, and resumed upon discharge -Last lab: 10/07/22 BUN 31; SCr 1.7, eGFR 47 (Apr 2023 eGFR > 60) -Avoid nephrotoxic drugs -Continue renal dosing Assessment & Plan (11/26/2022 9:32 AM EDT): -Licensed Appraiser: Dr. Kennedy, last appt in Sep 2021 [...] Assessment & Plan (10/13/2022 5:03 PM EST): -Licensed Appraiser: Dr. Kennedy, last appt in Sep 2021 -Hx rhabdomyolysis, on hemodialysis for 1 month in November 2017 - December 2017 -His renal funciton was CKDII level 9780-6724 -Most recent POLLY in Sep 2022, both [...] supplementation -currently receiving B12 IM from his pan devulcanizer helper, Dr. Peters Assessment & Plan (06/25/2024 12:12 PM EST): -likely nutritional and excessive alcohol consumption -continue vitamin supplementation -currently receiving B12 IM from his pan devulcanizer helper, Dr. Peters Assessment & Plan (07/25/2023 6:24 AM EST): -likely nutritional and excessive alcohol consumption -continue vitamin supplementation -currently receiving B12 IM from his pan devulcanizer helper, Dr. Peters Assessment & Plan (10/13/2022 5:15 PM EST): -likely nutritional and excessive alcohol consumption -continue vitamin supplementation Iron deficiency anemia 10/13/2022 Assessment & Plan (07/25/2023 6:25 AM EST): -Received Venfor IV 300 mg x 2 during 1st hospitalization in [facility] in Sep 2022 -Continue follow-up with pan devulcanizer helper Assessment & Plan (10/13/2022 5:17 PM EST): -Received Venfor IV 300 mg x 2 during 1st hospitalization in [facility] in Sep 2022 -Continue follow-up with pan devulcanizer helper Anemia of chronic disease 01/15/2018 Assessment & Plan (02/25/2025 5:16 PM EDT): - following with pan devulcanizer helper - Most recent CBC at baseline - multifactorial: chronic liver disease; iron deficiency; B12 deficiency - continue vitamin B12 IM - continue iron Assessment & Plan (01/17/2025 12:09 PM EDT): - recheck lab as his last CBC showed decreased H/H from baseline Assessment & Plan (10/09/2024 1:03 AM EST): - Both Iron and Vitamin-B12 deficiency, and anemia of chronic diseaes - followed by pan devulcanizer helper, Dr. Peters Assessment & Plan (06/25/2024 12:12 PM EST): - Both Iron and Vitamin-B12 deficiency, and anemia of chronic diseaes - followed by pan devulcanizer helper, Dr. Peters Assessment & Plan (07/26/2023 2:12 PM EST): - Both Iron and Vitamin-B12 deficiency, and anemia of chronic diseaes -followed by pan devulcanizer helperDr. Peters, last seen on 06/03/23 Assessment & Plan (05/26/2023 6:51 AM EDT): Both Iron and Vitamin-B12 deficiency -followed by pan devulcanizer helper Assessment & Plan (04/25/2023 10:40 AM EDT): Both Iron and Vitamin-B12 deficiency -followed by pan devulcanizer helper Assessment & Plan (01/23/2023 4:06 PM EDT): Both Iron and Vitamin-B12 deficiency -followed by pan devulcanizer helper Assessment & Plan (11/26/2022 9:51 AM EDT): Both Iron and Vitamin-B12 deficiency -followed by pan devulcanizer helper Assessment & Plan (10/13/2022 5:18 PM EST): -multifactorial - nutritional, CKD -following with [facility] pan devulcanizer helper Aneurysm of ascending aorta 05/29/2016 Assessment & Plan (04/14/2025 6:32 PM EDT): -Most recent echo on 04/12/21, EF 60-65%, dilated ascending aorta 41mm -Echo on 04/05/20, EF 55-60%, dilated ascending aorta 42 mm, -Echo on 04/01/19 EF 60-65%, Aortic root dimension 37~43mm -Echo on 06/23/24 EF 60-65%, Ascending aortic aorta 41 mm. -Seen by his assistant county engineer, Dr. Claudio in Jun 2024. Patient requests a referral to assistant county engineer in [place] because [facility] office is closed -Continue surveillance transthoracic echocardiogram -Work on risk factor management - Assessment & Plan (01/13/2025 10:00 PM EDT): -Most recent echo on 04/12/21, EF 60-65%, dilated ascending aorta 41mm -Echo on 04/05/20, EF 55-60%, dilated ascending aorta 42 mm, -Echo on 04/01/19 EF 60-65%, Aortic root dimension 37~43mm -Echo on 06/23/24 EF 60-65%, Ascending aortic aorta 41 mm. -Seen by his assistant county engineer, Dr. Claudio in Jun 2024 -Continue surveillance [...] aortic aorta 41 mm. -Seen by his assistant county engineer, Dr. Claudio in Jun 2024 -Continue surveillance transthoracic echocardiogram -Work on risk factor management Assessment & Plan (11/12/2023 12:18 PM EDT): -Most recent echo on 04/12/21, EF 60-65%, dilated ascending aorta 41mm -Echo on 04/05/20, EF 55-60%, dilated ascending aorta 42 mm, -Echo on 04/01/19 EF 60-65%, Aortic root dimension 37~43mm -Seen by his assistant county engineer, Dr. Claudio on 03/14/23 -Pt advised to check next Cardiogram appt which is in August 2023 -Work on risk factor management Assessment & Plan (07/25/2023 6:22 AM EST): -Most recent echo on 04/12/21, EF 60-65%, dilated ascending aorta 41mm -Echo on 04/05/20, EF 55-60%, dilated ascending aorta 42 mm, -Echo on 04/01/19 EF 60-65%, Aortic root dimension 37~43mm -Seen by his assistant county engineer, Dr. Claudio on 03/14/23 -Pt advised to check next Cardiogram appt which is in August 2023 -Work on risk factor management Assessment & Plan (05/26/2023 6:48 AM EDT): -Most recent echo on 04/12/21, EF 60-65%, dilated ascending aorta 41mm -Echo on 04/05/20, EF 55-60%, dilated ascending aorta 42 mm, -Echo on 04/01/19 EF 60-65%, Aortic root dimension 37~43mm -Seen by his assistant county engineer, Dr. Claudio on 03/14/23 -Pt advised to check next Cardiogram appt which is in August 2023 -Work on risk factor management Assessment & Plan (04/25/2023 10:42 AM EDT): -Most recent echo on 04/12/21, EF 60-65%, dilated ascending aorta 41mm -Echo on 04/05/20, EF 55-60%, dilated ascending aorta 42 mm, -Echo on 04/01/19 EF 60-65%, Aortic root dimension 37~43mm -Seen by his assistant county engineer, Dr. Claudio on 03/14/23 -Pt advised to check next Cardiogram appt which is in August 2023 -Work on risk factor management Assessment & Plan (11/30/2022 6:19 AM EDT): -Most recent echo on 04/12/21, EF 60-65%, dilated ascending aorta 41mm -Echo on 04/05/20, EF 55-60%, dilated ascending aorta 42 mm, -Echo on 04/01/19 EF 60-65%, Aortic root dimension 37~43mm -Seen by his assistant county engineer, Dr. Claudio on n 07/11/22 -Pt advised to check next Cardiogram appt -Work on risk factor management Assessment & Plan (10/13/2022 5:10 PM EST): -Most recent echo on 04/12/21, EF 60-65%, dilated ascending aorta 41mm -Echo on 04/05/20, EF 55-60%, dilated ascending aorta 42 mm, -Echo on 04/01/19 EF 60-65%, Aortic root dimension 37~43mm -Seen by his assistant county engineer, Dr. Claudio on n 07/11/22 -Pt advised [...] to [facility]UD Clinic. Pt will meet with Childcare Center Administrator today. Assessment & Plan (10/13/2022 5:30 PM [...] 25 mg daily which was discontinued by pharmacy clinical coordinator - Improve CPAP adherence - return for BP check in 1 mo. If persistently elevated, then refer to CDTM. Tx history - Amlodipine was discontinued due to LE edema and furosemide was switched to torsemide by his assistant county engineer. - Lisinopril was discontinued when he had [...] 25 mg daily which was discontinued by pharmacy clinical coordinator - Improve CPAP adherence Tx history - Amlodipine was discontinued due to LE edema and furosemide was switched to torsemide by his assistant county engineer. - Lisinopril was discontinued when he had [...] 25 mg daily which was discontinued by pharmacy clinical coordinator - Improve CPAP adherence Tx history - Amlodipine was discontinued due to LE edema and furosemide was switched to torsemide by his assistant county engineer. - Lisinopril was discontinued when he had [...] 25 mg daily which was discontinued by pharmacy clinical coordinator - Improve CPAP adherence Tx history - Amlodipine was discontinued due to LE edema and furosemide was switched to torsemide by his assistant county engineer. - Lisinopril was discontinued when he had [...] 25 mg daily which was discontinued by pharmacy clinical coordinator - Improve CPAP adherence Tx history - Amlodipine was discontinued due to LE edema and furosemide was switched to torsemide by his assistant county engineer. - Lisinopril was discontinued when he had [...] furosemide was switched to torsemide by his assistant county engineer. - Lisinopril was discontinued when he had [...] furosemide was switched to torsemide by his assistant county engineer. - Lisinopril was discontinued when he had [...] metoprolol succinate 75 mg daily (Dr. Claudio, assistant county engineer, increased to 100 mg daily, but his discharge medication list shows 75 mg daily) - Continue torsemide 20 mg bid - Continue spirolactone 25 mg daily - Continue lisinopril 5mg daily - Improve CPAP adherence Tx history - Amlodipine was discontinued due to LE edema and furosemide was switched to torsemide by his assistant county engineer. - Lisinopril was discontinued when he had [...] metoprolol succinate 75 mg daily (Dr. Claudio, assistant county engineer, increased to 100 mg daily, but his discharge medication list shows 75 mg daily) - Continue torsemide 20 mg bid - Continue spirolactone 25 mg daily - Continue lisinopril 5mg daily - Improve CPAP adherence Tx history - Amlodipine was discontinued due to LE edema and furosemide was switched to torsemide by his assistant county engineer. - Lisinopril was discontinued when he had [...] metoprolol succinate 75 mg daily (Dr. Claudio, assistant county engineer, increased to 100 mg daily, but his discharge medication list shows 75 mg daily) - Continue torsemide 20 mg bid - Continue spirolactone 25 mg daily - Continue lisinopril 5mg daily - Improve CPAP adherence Tx history - Amlodipine was discontinued due to LE edema and furosemide was switched to torsemide by his assistant county engineer. - Lisinopril was discontinued when he had [...] metoprolol succinate 75 mg daily (Dr. Claudio, assistant county engineer, increased to 100 mg daily, but his discharge medication list shows 75 mg daily) - Continue torsemide 20 mg bid - Continue spirolactone 25 mg daily - Continue lisinopril 5mg daily - Improve CPAP adherence Tx history - Amlodipine was discontinued due to LE edema and furosemide was switched to torsemide by his assistant county engineer. - Lisinopril was discontinued when he had [...] metoprolol succinate 75 mg daily (Dr. Claudio, assistant county engineer, increased to 100 mg daily, but his discharge medication list shows 75 mg daily) - Continue torsemide 20 mg bid - Continue spirolactone 25 mg daily - Continue lisinopril 5mg daily - Improve CPAP adherence Tx history - Amlodipine was discontinued due to LE edema and furosemide was switched to torsemide by his assistant county engineer. - Lisinopril was discontinued when he had [...] - ambulance called to transport patient to [facility] for further management Abdominal pain 01/23/2024 02/25/2025 [...] for AUD clinic this Saturday Kidney lesion, [place], left 10/13/2022 06/15/2024 Assessment & Plan (07/25/2023 [...] Encounters Date Type Department Care Team Description 05/20/2025 Patient Outreach [address] [address] Samantha Gonzales MD Care Coordination ([facility] Mariee, outreach #[id number] ) 05/19/2025 Patient Outreach [address] [address] Samantha Gonzales MD Care Coordination (Home Health Notification) 05/17/2025 Patient Outreach [address] [address] Samantha Gonzales MD Care Coordination ([facility] Mariee, initial outreach_lvm ) 05/13/[address] [address] Samantha Gonzales MD call back requested 05/11/2025 Patient Outreach [address] [address] Samantha Gonzales MD Care Coordination ([facility] chart review) 05/03/[address] [address] Samantha Gonzales MD Care Coordination 04/30/2025 Results Follow-Up [address] [address] Brianna Covington, DEBI Hepatic Function Panel, B Type Natriuretic Peptide (BNP) 04/27/2025 Orders Only [address] [address] Samantha Gonzales MD Foot lesion (Primary Dx); Venous stasis 04/27/[address] [address] Rebekah Negrete, director safety council 04/26/2025 Patient Outreach [address] [address] Samantha Gonzales MD Care Management ([facility]- chart review) 04/26/2025 Patient Outreach [address] [address] Samantha Gonzales MD 04/25/2025 Orders Only [facility] External Provider, [facility] 04/22/2025 Results Follow-Up [address] [address] Samantha Gonzales MD US Abdomen Comp w elastography 04/18/2025 Telephone [facility] [address], [place] [phone] Sarah Leon MD 04/15/[address] [address] Samantha Gonzales MD Referral 04/13/2025 10:30 AM EDT Office Visit [address] [address] Samantha Gonzales MD Essential hypertension (Primary Dx); Renal cell cancer, left (CMS/HCC); Encounter for immunization; Dyslipidemia; Diarrhea, unspecified type; Anemia, unspecified type; Wound of left lower extremity, subsequent encounter; Abdominal wound dehiscence, initial encounter; Venous stasis dermatitis of both lower extremities; Aneurysm of ascending aorta without rupture (CMS/HCC); Metabolic dysfunction-associat ed steatotic liver disease and increased alcohol intake (MetALD); Alcoholic liver disease (CMS/HCC); Stage 2 chronic kidney disease; Hypomagnesemia; Obstructive sleep apnea syndrome; Class 2 severe obesity due to excess calories with serious comorbidity and body mass index (BMI) of 35.0 to 35.9 in adult (CMS/HCC) 04/13/2025 Telephone [facility] [address] [place] [phone] Samantha Gonzales MD visiting nurse referral 04/13/2025 Travel 04/12/2025 Telephone [facility] [address] [place] [address] Samantha Gonzales MD Referral 03/31/2025 Patient Outreach [facility] [address] [place] [address] Samantha Gonzales MD Care Coordination (C3/CM Outreach) 03/24/2025 Telephone [facility] [address] [place] [phone] Samantha Gonzales MD FYI 03/03/2025 Patient Outreach [facility] [address] [place] [address] Samantha Gonzales MD Care Coordination (C3/CM Outreach) from Last 3 Months Immunizations Immunization Administration [...] 04/13/2025 10:15 AM EDT Plan of Treatment Health Maintenance Due [...] Name Priority Date/Time Associated Diagnosis Comments CT CERVICAL SPINE WO CONTRAST Routine 04/25/2025 8:[address] HEAD WO CONTRAST Routine 04/25/2025 8 :52 AM EDT US ABDOMEN COMPLETE WITH ELASTOGRAPHY Routine 04/22/2025 9:47 AM EDT Chronic liver disease Metabolic dysfunction-associa josh steatotic liver disease and increased alcohol intake (MetALD) LIPID PANEL WITH REFLEX TO DIRECT LDL [...] Wound of left lower extremity, subsequent encounter [facility] COLONOSCOPY Routine 09/20/2023 HEPATITIS C AB W/REFL TO HCV RNA, QN, PCR Routine 01/28/2023 9:34 AM EDT Alcohol use disorder, severe, dependence (CMS/HCC) from Last 3 Months or Most Recently Relevant to Health Maintenance Results * CT Cervical Spine w/o Contrast (04/25/2025 8:53 AM EDT) Anatomical Region Laterality Modality Spine, C-spine Computed Tomogra phy 04/25/2025 8:53 AM EDT Narrative 04/25/2025 8:55 AM EDT [address] [address] [address] Scan Report Signed Patient: Mohan Gonzalez MR#: [id number] : 1960 Acct:[id number] Age/Sex: 64 / M ADM Date: 04/25/25 Loc: HO.ED Attending Dr: Ordering Physician: Gil Jane DO Date of Service: 04/25/25 Procedure(s): CT cervical spine wo IV con Accession Number(s): [id number] cc: Samantha Gonzales MD; Gil Jane DO Report Number: [id number]: Total DLP = 1490.00 mGy-cm Reason for Exam: fall CLINICAL HISTORY: fall CT cervical spine without contrast Comparison: 12/10/2024 Findings: Vertebral alignment is within normal limits. Multiple level degenerative disc, facet, and uncovertebral joint change. No acute fractures or dislocations. Visualized intracranial contents are unremarkable. Soft tissues of the neck are normal. Lung apices are clear. IMPRESSION: No acute findings. This document has been electronically signed by: Naga Lucio MD on 04/25/2025 08:53:13 Dictated By: Naga Lucio MD Signed By: <Electronically signed by Naga Lucio MD in OV> 04/25/25 0854 DD/ 2 TD/TT: 04/25/25852 Cornetist: Procedure Note Donotuseinterpreter, Image - 04/25/[address] [address] [address] Scan Report Signed Patient: Mohan Gonzalez AMR#: [id number] : 1960cct:[id number] Age/Sex: 64 / MADM Date: 04/25/25 Loc: HO.ED Attending Dr: Ordering Physician: Gil Jane DO Date of Service: 04/25/25 Procedure(s): CT cervical spine wo IV con Accession Number(s): [id number] cc: Samantha Gonzales MD; Gil Jane DO Report Number: [id number]: Total DLP = 1490.00 mGy-cm Reason for Exam: fall CLINICAL HISTORY: fall CT cervical spine without contrast Comparison: 12/10/2024 Findings: Vertebral alignment is within normal limits. Multiple level degenerative disc, facet, and uncovertebral joint change. No acute fractures or dislocations. Visualized intracranial contents are unremarkable. Soft tissues of the neck are normal. Lung apices are clear. IMPRESSION: No acute findings. This document has been electronically signed by: Naga Lucio MD on 04/25/2025 08:53:13 Dictated By: Naga Lucio MD Signed By: <Electronically signed by Naga Lucio MD in OV> 04/25/2554 DD/ 2 TD/TT: 04/25/25852 Cornetist: [facility] External Provider IMG CT PROCEDURES Final Result * CT Head w/o Contrast (04/25/2025 8:52 AM EDT) Anatomical Region Laterality Modality Head, Neck Computed Tomogra phy 04/25/2025 8:52 AM EDT Narrative 04/25/2025 8:55 AM EDT [place] [address] CT Scan Report Signed Patient: Mohan Gonzalez MR#: [id number] : 1960 Acct:[id number] Age/Sex: 64 / M ADM Date: 04/25/25 Loc: HO.ED Attending Dr: Ordering Physician: Gil Jane DO Date of Service: 04/25/25 Procedure(s): CT head/brain wo IV con Accession Number(s): [id number] cc: Samantha Gonzales MD; Gil Jane DO Report Number: [id number]: Total DLP = 0.00 mGy-cm Reason for Exam: fall, head strike CLINICAL HISTORY: fall, head strike CT head without contrast Comparison: 12/10/2024 Findings: No new intra-axial mass, midline shift, hydrocephalus, or acute hemorrhage. There is moderate diffuse atrophy. The visualized paranasal sinuses and mastoid air cells are normal. The orbits are unremarkable. No skull fracture. IMPRESSION: 1. No acute intracranial findings. This document has been electronically signed by: Naga Lucio MD on 04/25/2025 08:52:40 Dictated By: Naga Lucio MD Signed By: <Electronically signed by Naga Lucio MD in OV> 04/25/25 0854 DD/ 1 TD/TT: 04/25/25851 Cornetist: Procedure Note Donotuseinterpreter, Image - 04/25/[address] [place] [address] [address] Scan Report Signed Patient: Mohan Gonzalez AMR#: [id number] : 1960cct:[id number] Age/Sex: 64 / MADM Date: 04/25/25 Loc: HO.ED Attending Dr: Ordering Physician: Gil Jane DO Date of Service: 04/25/25 Procedure(s): CT head/brain wo IV con Accession Number(s): [id number] cc: Samantha Gonzales MD; Gil Jane DO Report Number: [id number]: Total DLP = 0.00 mGy-cm Reason for Exam: fall, head strike CLINICAL HISTORY: fall, head strike CT head without contrast Comparison: 12/10/2024 Findings: No new intra-axial mass, midline shift, hydrocephalus, or acute hemorrhage. There is moderate diffuse atrophy. The visualized paranasal sinuses and mastoid air cells are normal. The orbits are unremarkable. No skull fracture. IMPRESSION: 1. No acute intracranial findings. This document has been electronically signed by: Naga Lucio MD on 04/25/2025 08:52:40 Dictated By: Naga Lucio MD Signed By: <Electronically signed by Naga Lucio MD in OV> 04/25/25 0854 DD/ TD/TT: 04/25/25851 Cornetist: [facility] External Provider IMG CT PROCEDURES Final Result * US Abdomen Comp w elastography (04/22/2025 9:47 AM EDT) Anatomical Region Laterality Modality Abdomen Ultrasound 04/22/2025 9:47 AM EDT Narrative 04/22/2025 10:34 AM EDT [address] [address] Ultrasound Report Signed Patient: Mohan Gonzalez MR#: [id number] : 1960 Acct:[id number] Age/Sex: 64 / M ADM Date: 04/22/25 Loc: HO.US Attending Dr: Samantha Gonzales MD Ordering Physician: Samantha Gonzales MD Date of Service: 04/22/25 Procedure(s): US abdomen comp w elastography Accession Number(s): [id number] cc: Samantha Gonzales MD Reason for Exam: MetALD,CHRONIC LIVER DISEASE, INCREASED ALCHOHOL INTAKE EXAMINATION: US COMPLETE ABDOMEN WITH LIVER ELASTOGRAPHY CLINICAL INFORMATION: Chronic liver disease, alcohol abuse COMPARISON: None available. TECHNIQUE: Real-time imaging of the abdominal viscera. Noninvasive ultrasound liver fibrosis assessment is performed using Liudmila ElastPQ point quantification shear wave elastography (pSWE) with a C5-2 MHz transducer. Multiple elastography samples are obtained. FINDINGS: PANCREAS: Portions of the head and tail of pancreas are obscured by by gas. Visualized pancreas is unremarkable. ABDOMINAL AORTA: No aortic aneurysm is seen. INFERIOR VENA CAVA: Visualized portions are normal. LIVER: The liver demonstrates a coarse echotexture. The right lobe measures 22 cm in length. The left lobe measures 12 cm in length. The main portal vein is patent with a normal direction of flow and it demonstrates a continuously for venous waveform. Shear wave liver elastography median stiffness is 1.35 m/s (reference: normal median stiffness is 1.3 m/s or less). IQR/median stiffness to assess sampling precision is 0.16 (reference: good quality data set is IQR/median stiffness of 0.15 or less). GALLBLADDER: The gallbladder is physiologically distended without evidence of stones, sludge, polyps, wall thickening or pericholecystic fluid. COMMON BILE DUCT: Normal in caliber measuring 0.3 cm in diameter. RIGHT KIDNEY: No hydronephrosis. No renal calculi or focal parenchymal lesions. The kidney measures 12 cm in maximum dimension. LEFT KIDNEY: Shadowing related to a surgical scar from partial nephrectomy one year ago limits visualization of the left kidney. No hydronephrosis. No renal calculi or focal parenchymal lesions are evident. The kidney measures 10 cm in maximum dimension. SPLEEN: Unremarkable. The spleen measures 13 cm in maximum dimension. FREE FLUID: None seen. US/US abdomen comp w elastography IMPRESSION: 1. Suspected hepatocellular disease or hepatic steatosis. The liver has a coarse echotexture and is probably enlarged. 2. Liver elastography: In the absence of other known clinical signs, measurements rule out compensated advanced chronic liver disease. If there are known clinical signs, further testing may be needed for confirmation. REFERENCE: Society of Radiologists in Ultrasound Liver Stiffness Thresholds (2020): LIVER STIFFNESS THRESHOLDS: *Liver Stiffness equal or less than 1.3 m/s: High probability of being normal. *Liver Stiffness less than 1.7 m/s: In the absence of other known clinical signs, rules out compensated advanced chronic liver disease. *Liver Stiffness 1.7-2.1 m/s: Suggestive of compensated advanced chronic liver disease but need further test for confirmation. *Liver Stiffness over 2.1 m/s: Rules in compensated advanced chronic liver disease. *Liver Stiffness over 2.4 m/s: Suggestive of clinically significant portal hypertension. QUALITY OF DATA SET: *IQR/Median value equal or less than 0.15 implies a quality data set. *IQR/Median value over 0.15 implies a poor quality data set. SIGNIFICANT CHANGE FROM PRIOR EXAM: Significant change if liver stiffness measurement is 10% or greater from prior exam. OTHER CONSIDERATIONS: The stage of liver fibrosis may be overestimated in the setting of acute hepatitis, liver inflammation, elevated liver function tests, hepatic vascular congestion, obstructive cholestasis, non-fasting state, and infiltrative diseases such as amyloidosis and lymphoma. In some patients with NAFLD, the liver stiffness thresholds for compensated advanced chronic liver disease may be lower. In causes other than viral hepatitis and NAFLD, liver stiffness thresholds are not well established. Electronically signed by: Esteban Carlos MD 04/22/2025 10:32 AM EDT Dictated By: Esteban Carlos MD Signed By: <Electronically signed by Esteban Carlos MD in OV> 04/22/25 1032 DD/ 0947 TD/TT: 04/22/25 0959 Cornetist: Procedure Note Donotuseinterpreter, Image - 04/22/[address] [address] Ultrasound Report Signed Patient: Mohan Gonzalez AMR#: [id number] : 1960cct:[id number] Age/Sex: 64 / MADM Date: 04/22/25 Loc: HO.US Attending Dr: Samantha Gonzales MD Ordering Physician: Samantha Gonzales MD Date of Service: 04/22/25 Procedure(s): US abdomen comp w elastography Accession Number(s): [id number] cc: Samantha Gonzales MD Reason for Exam: MetALD,CHRONIC LIVER DISEASE, INCREASED ALCHOHOL INTAKE EXAMINATION: US COMPLETE ABDOMEN WITH LIVER ELASTOGRAPHY CLINICAL INFORMATION: Chronic liver disease, alcohol abuse COMPARISON: None available. TECHNIQUE: Real-time imaging of the abdominal viscera. Noninvasive ultrasound liver fibrosis assessment is performed using Liudmila ElastPQ point quantification shear wave elastography (pSWE) with a C5-2 MHz transducer. Multiple elastography samples are obtained. FINDINGS: PANCREAS: Portions of the head and tail of pancreas are obscured by by gas. Visualized pancreas is unremarkable. ABDOMINAL AORTA: No aortic aneurysm is seen. INFERIOR VENA CAVA: Visualized portions are normal. LIVER: The liver demonstrates a coarse echotexture. The right lobe measures 22 cm in length. The left lobe measures 12 cm in length. The main portal vein is patent with a normal direction of flow and it demonstrates a continuously for venous waveform. Shear wave liver elastography median stiffness is 1.35 m/s (reference: normal median stiffness is 1.3 m/s or less). IQR/median stiffness to assess sampling precision is 0.16 (reference: good quality data set is IQR/median stiffness of 0.15 or less). GALLBLADDER: The gallbladder is physiologically distended without evidence of stones, sludge, polyps, wall thickening or pericholecystic fluid. COMMON BILE DUCT: Normal in caliber measuring 0.3 cm in diameter. RIGHT KIDNEY: No hydronephrosis. No renal calculi or focal parenchymal lesions. The kidney measures 12 cm in maximum dimension. LEFT KIDNEY: Shadowing related to a surgical scar from partial nephrectomy one year ago limits visualization of the left kidney. No hydronephrosis. No renal calculi or focal parenchymal lesions are evident. The kidney measures 10 cm in maximum dimension. SPLEEN: Unremarkable. The spleen measures 13 cm in maximum dimension. FREE FLUID: None seen. US/US abdomen comp w elastography IMPRESSION: 1. Suspected hepatocellular disease or hepatic steatosis. The liver has a coarse echotexture and is probably enlarged. 2. Liver elastography: In the absence of other known clinical signs, measurements rule out compensated advanced chronic liver disease. If there are known clinical signs, further testing may be needed for confirmation. REFERENCE: Society of Radiologists in Ultrasound Liver Stiffness Thresholds (2020): LIVER STIFFNESS THRESHOLDS: *Liver Stiffness equal or less than 1.3 m/s: High probability of being normal. *Liver Stiffness less than 1.7 m/s: In the absence of other known clinical signs, rules out compensated advanced chronic liver disease. *Liver Stiffness 1.7-2.1 m/s: Suggestive of compensated advanced chronic liver disease but need further test for confirmation. *Liver Stiffness over 2.1 m/s: Rules in compensated advanced chronic liver disease. *Liver Stiffness over 2.4 m/s: Suggestive of clinically significant portal hypertension. QUALITY OF DATA SET: *IQR/Median value equal or less than 0.15 implies a quality data set. *IQR/Median value over 0.15 implies a poor quality data set. SIGNIFICANT CHANGE FROM PRIOR EXAM: Significant change if liver stiffness measurement is 10% or greater from prior exam. OTHER CONSIDERATIONS: The stage of liver fibrosis may be overestimated in the setting of acute hepatitis, liver inflammation, elevated liver function tests, hepatic vascular congestion, obstructive cholestasis, non-fasting state, and infiltrative diseases such as amyloidosis and lymphoma. In some patients with NAFLD, the liver stiffness thresholds for compensated advanced chronic liver disease may be lower. In causes other than viral hepatitis and NAFLD, liver stiffness thresholds are not well established. Electronically signed by: Esteban Carlos MD 04/22/2025 10:32 AM EDT Dictated By: Esteban Carlos MD Signed By: <Electronically signed by Esteban Carlos MD in OV> 04/22/25 1032 DD/ 0947 TD/TT: 04/22/25 0959 Cornetist: Samantha Gonzales MD IMG US PROCEDURES Final Result * TSH with Reflex to Free T4 (04/13/2025 11:26 AM EDT) TSH reflex Free T4 1.72 0.32 - 4.0 uIU/mL [facility] Blood 04/13/2025 11:2 6 AM EDT 04/13/2025 1:08 PM EDT Samantha Gonzales MD LAB BLOOD ORDERABLES Final Resul t [facility] [address] [place] [phone] * Lipid Panel with Reflex to Direct LDL (04/13/2025 11:26 AM EDT) Triglycerides 70 <150 mg/dL [facility] Comment:Desirable Triglyceri de: less than 150 mg/dLBorderline High Triglyceride 150-199 mg/dLHigh Triglyceride: 200-499 mg/dLVery High Triglyceride: greater than or equal to 5OO mg/dL Cholesterol 169 <200 mg/dL [facility] Comment:Desirable Cholestero l: less than 200 mg/dLBorderline High Cholesterol: 200-239 mg/dLHigh Cholesterol: greater than 239 mg/dL LDL Cholesterol Calculated 86 <100 mg/dL [facility] Comment:Desirable LDL: less than 100 mg/dLNear Optimal/Above Optimal LDL: 110- 129 mg/dLBorderline High LDL: 130-159 mg/dLHigh LDL: 160-189 mg/dLVery High LDL: greater than or equal to 190 mg/dL HDL Cholesterol 69 >40 mg/dL [facility] Comment:Desirable HDL: great er than 40 mg/dL Note: This HDL assay may give artificially low results in patients with liver disease. Blood 04/13/2025 11:2 6 AM EDT 04/13/2025 1:08 PM EDT us Samantha Gonzales MD LAB BLOOD ORDERABLES Final Resul t [facility] [address] [place] [phone] * (ABNORMAL) CBC auto differential (04/13/2025 11:26 AM EDT) White Blood Count 6.1 4.8 - 10.8 X10*3/uL [facility] Red Blood Count 3.36(L) 4.60 - 5.80 X10*6/uL [facility] Hemoglobin 10.0(L) 14.0 - 18.0 g/dl [facility] Hematocrit 30.9(L) 42.0 - 52.0 % [facility] Mean Corpuscular Volume 92.0 80.0 - 98.0 fL [facility] Mean Corpuscular Hemoglobin 29.8 27.0 - 33.0 pg [facility] Mean Corpuscular HGB Conc 32.4 31.0 - 36.0 g/dl [facility] Red Cell Distribution Width 15.2 11.0 - 16.0 % [facility] Platelet Count 132(L) 160 - 400 X10*3/uL [facility] Mean Platelet Volume 8.5(L) 9.4 - 12.4 fL [facility] Neutrophils Percent Auto 57.3 45 - 73 % [facility] Imm Gran Pct Auto 0.2 0.0 - 0.4 % [facility] Lymphocytes Percent Auto 32.3 20 - 40 % [facility] Monocytes Percent Auto 6.6 2 - 11 % [facility] Eosinophils Percent Auto 2.1 0 - 4 % [facility] Basophils Percent Auto 1.5 0 - 2 % [facility] NRBC Pct Auto 0.0 0.0 - 0.2 /100WBC [facility] Neutrophils Absolute Auto 3.5 2.0 - 8.3 x10*3/uL [facility] Imm Gran Abs Auto 0.01 0.00 - 0.03 X10*3/uL [facility] Lymphocytes Absolute Auto 2.0 1.2 - 4.9 X10*3/uL [facility] Monocytes Absolute Auto 0.4 0.1 - 1.2 X10*3/uL [facility] Eosinophils Absolute Auto 0.1 0.0 - 0.4 X10*3/uL [facility] Basophils Absolute Auto 0.1 0.0 - 0.2 X10*3/uL [facility] NRBC Abs Auto 0.000 0.0 - 0.012 X10*3/uL [facility] Blood Venous blood specimen / Unknown 04/13/2025 11:26 AM EDT 04/13/2025 1:08 PM EDT Samantha Gonzales MD LAB BLOOD ORDERABLES Final Resul t Performing Organization Address City/[facility]/ZIP Co de Phone Number [facility] [address] [place] [phone] * (ABNORMAL) B Type Natriuretic Peptide (BNP) (04/13/2025 11:26 AM EDT) Pathologist [facility] B Type Natriuretic Peptide 400(H) <100 pg/mL [facility] Blood Venous blood specimen / Unknown 04/13/2025 11:26 AM EDT 04/13/2025 12:58 PM EDT us Brianna CARRERA LAB BLOOD ORDERABLES Final Resul t [facility] [address] [place] [phone] * Magnesium (04/13/2025 11:26 AM EDT) Pathologist [facility] Magnesium 1.8 1.6 - 2.6 mg/dL [facility] Blood Venous blood specimen / Unknown 04/13/2025 11:26 AM EDT 04/13/2025 1:08 PM EDT Samantha Gonzales MD LAB BLOOD ORDERABLES Final Resul t Performing Organization Address [facility] Co de Phone Number [facility] [address] [place] [phone] * (ABNORMAL) Hepatic Function Panel (04/13/2025 11:26 AM EDT) Bilirubin, Total 0.8 0.0 - 1.0 mg/dL [facility] Bilirubin, Direct 0.4 0.0 - 0.5 mg/dL [facility] Aspartate Amino Transferase 32 5 - 37 U/L [facility] Alanine Aminotransferase 10 0 - 40 U/L [facility] Total Protein 7.3 6.5 - 8.0 g/dL [facility] Albumin Level 3.8 3.5 - 5.0 g/dL [facility] Alkaline Phosphatase 125(H) 39 - 117 U/L [facility] Blood Venous blood specimen / Unknown 04/13/2025 11:26 AM EDT 04/13/2025 1:08 PM EDT Brianna CARRERA LAB BLOOD ORDERABLES Final Resul t Performing Organization Address [facility] de Phone Number [facility] [address] [place] [phone] * (ABNORMAL) Comprehensive Metabolic Panel (04/13/2025 11:26 AM EDT) Sodium 146(H) 135 - 145 mmol/L [facility] Potassium 4.2 3.3 - 5.1 mmol/L [facility] Chloride 111(H) 96 - 108 mmol/L [facility] Carbon Dioxide 25 22 - 29 mmol/L [facility] Anion Gap 14 12 - 20 [facility] Urea Nitrogen (BUN) 14 9 - 16 mg/dL [facility] Creatinine, Serum 1.19 0.5 - 1.4 mg/dL [facility] Estimated Glomerular Filt Rate >60 [facility] Comment:Chronic Kidney Disea se: Estimated GFR < 60 mL/min/1.33b4Pzuwhj Kidney Disease: Estimated GFR < 15 mL/min/1.73m2 Glucose 81 60 - 115 mg/dL [facility] Calcium 8.7 8.4 - 10.2 mg/dL [facility] Bilirubin, Total 0.8 0.0 - 1.0 mg/dL [facility] Aspartate Amino Transferase 31 5 - 37 U/L [facility] Alanine Aminotransferase 9 0 - 40 U/L [facility] Total Protein 7.3 6.5 - 8.0 g/dL [facility] Albumin Level 3.8 3.5 - 5.0 g/dL [facility] Alkaline Phosphatase 125(H) 39 - 117 U/L [facility] Blood Venous blood specimen / Unknown 04/13/2025 11:26 AM EDT 04/13/2025 1:08 PM EDT us Samantha Gonzales MD LAB BLOOD ORDERABLES Final Resul t [facility] [address] [place] [phone] * Wound Care (04/13/2025 11:10 AM EDT) Narrative Sarah Stallworth - 04/13/2025 11:10 AM EDT Samantha Gonzales MD 04/14/2025 6:38 PM Wound Care Date/Time: 04/13/2025 11:10 AM Performed by: Karyn Patel RN Authorized by: Samantha Gonzales MD Consent: Consent obtained: Verbal Consent given by: Patient Risks, benefits, and alternatives were discussed: yes Risks discussed: Infection [place] protocol: Patient identity confirmed: Verbally with patient Procedure details: Wound location: left lower flank. Dressing: Dressing applied: 2x2 and 4x4 Post-procedure details: Procedure completion: Tolerated well, no immediate complications Procedure Note Karyn Patel RN - 04/13/2025 10:30 AM EDT Patient ID: Mohan Gonzalez is a 64 y.o. male. Wound Care Date/Time: 04/13/2025 11:10 AM Performed by: Karyn Patel RN Authorized by: Samantha Gonzales MD Consent: Consent obtained: Verbal Consent given by: Patient Risks, benefits, and alternatives were discussed: yes Risks discussed: Infection [place] protocol: Patient identity confirmed: Verbally with patient Procedure details: Wound location: left lower flank. Dressing: Dressing applied: 2x2 and 4x4 Post-procedure details: Procedure completion: Tolerated well, no immediate complications Samantha Gonzales MD IN CLINIC/BEDSIDE ORDERABLES Robin josh Result - Final * Colonoscopy (09/20/2023) Colonoscopy Normal Normal Historical Provider HEALTH MAINTENANCE Final Result * Hepatitis C Antibody with Reflex to HCV, RNA, Quantitative, Real-Time PCR (01/28/2023 9:34 AM EDT) Hepatitis C Antibody NON-REACT GENI NON-REACT GENI [employer] Index 0.04 <1.00 [employer] Comment: HCV antibody was non-reactive. There is no laboratory evidence of HCV infection. In most cases, no further action is required. However, if recent HCV exposure is suspected, a test for HCV RNA (test code 54639) is suggested. For additional information please refer to http://education.Flirq/faq/JSN72u7 (This link is being provided for informational/ educational purposes only.) Blood Venous blood specimen / Unknown 01/28/2023 9:34 AM EDT 01/28/2023 9:34 AM EDT Narrative [facility] - 01/28/2023 9:34 PM EDT FASTING:YES FASTING: YES Kerwin Mendoza MD LAB BLOOD ORDERABLES Final Resul t [facility] [address], [place] [phone] [facility] [address] [place] [phone] from Last 3 Months or Most Recently Relevant to Health Maintenance Insurance [facility] C3 Care Teams Fisheries Management Biologist Relationship Specialty Start Date End Date Samantha Gonzales MD [address] [place] [phone] PCP - General Family Medicine 07/09/13 Adis Cordero, RN [address] [place] [address] Registered Nurse Family Medicine 05/17/25 Wenceslao Mariee 05/17/25 [employer] 05/19/25
--- OUTSIDE RECORDS SUMMARY | 2025-05-25 21:10 | XMS_ITS | Encounter Summary ---
Author Organization [employer] Address [address] [place] [address] 7t [place] [address] Care Team Providers Care Forensic Chemist Name Role Phone Samantha Gonzales MD Primary Care Provider Gladis Mariee RN Unavailable [phone] Cecily Stern Unavailable Adis Cordero RN Unavailable [phone] Wenceslao Mariee Unavailable Reason for Referral * Imaging (Routine) - Authorized Specialty Diagnoses / Procedures Referred By Contac t Referred To Contact Cardiology Diagnoses Elevated brain natriuretic peptide (BNP) level Essential hypertension Procedures Transthoracic Echo (TTE) Complete Brianna Covington ANP [address] [place] [address] Phone: tel: fax: [address] Phone: tel: fax: Referral ID Status Reason Start Date Expiration Date Visits Requested Visits Authorized [id number] Authorized Perform Procedure 04/30/2025 04/30/2026 1 1 Encounter Details Date Type Department Care Team (Late st Contact Info) Description 04/30/2025 Results Follow-Up [facility] MEDICINE [address] [place] [address] Brianna Covington ANP [address] [place] [address] Hepatic Function Panel, B Type Natriuretic Peptide (BNP) Social History Tobacco Use Types Packs/Day Years [...] as of this encounter Miscellaneous Notes * Result Encounter Note - DEBI Fleming - 04/30/2025 9:00 AM EDT BNP Duplicate of PCP labs done same DOS, did have abnormal BNP, mildly elevated, will order echo toupdate, please confirm w/ pt he is aware of referral to [facility] Cardiology by Dr. Gonzales documented in this encounter Plan of Treatment Scheduled Orders Name Type Priority Associated Diagnoses Orde r Schedule Transthoracic Echo (TTE) Complete Echocardiography Routine Elevated brain natriuretic peptide (BNP) level Essential hypertension Expected: 04/30/2025 (Approximate), Expires: 04/30/2027 documented as of this encounter Visit Diagnoses Diagnosis Elevated brain natriuretic peptide (BNP) level- Primary Essential hypertension Unspecified essential hypertension documented in this encounter Additional Health Concerns Assessment Noted Time PHQ-9 Depression Total Score: 0 06/25/20 24 11:09 AM EST documented as of this encounter Care Teams Forensic Chemist Relationship Specialty Start Date End Date Samantha Gonzales MD [address] [place] [address] PCP - General Family Medicine 07/09/13 Gladis Mariee, ROSALINDA [address] [place] [address] Registered Nurse Family Medicine 04/26/25 05/17/25 Cecily Stern 05/10/25 05/17/25 Adis Cordero, ROSALINDA [address] [place] [address] Registered Nurse Family Medicine 05/17/25 Wenceslao Mariee 05/17/25 [employer] 05/19/25 documented as of this encounter
--- OUTSIDE RECORDS SUMMARY | 2025-05-25 21:10 | XMS_ITS | Encounter Summary ---
Author Organization [employer] Address 75 [facility] 7t [place] [address] Care Team Providers Care Completion Manager Name Role Phone Samantha Gonzales MD Primary Care Provider Gladis Mariee RN Unavailable [phone] Cecily Stern Unavailable Adis Cordero RN Unavailable [phone] Wenceslao Mariee Unavailable Encounter Details Date Type Department Care Team (Late st Contact Info) Description 12/17/2022 Abstract [facility] MEDICINE 230 [place], [place] [phone] Zee Szymanski MD [address] [place], [place] [phone] Social History Tobacco Use Types Packs/Day Years [...] on file documented as of this encounter Visit Diagnoses Not on filedocumented in this encounter Additional Health Concerns Assessment Noted Time PHQ-9 Depression Total Score: 3 12/15/19 23 1:37 PM EDT documented as of this encounter Care Teams Completion Manager Relationship Specialty Start Date End Date Samantha Gonzales MD [address] [place] [address] PCP - General Family Medicine 07/09/13 Gladis Mariee, ROSALINDA [address] [place] [address] Registered Nurse Family Medicine 04/26/25 05/17/25 Cecily Stern 05/10/25 05/17/25 Adis Cordero, ROSALINDA [address] [place] [address] Registered Nurse Family Medicine 05/17/25 Wenceslao Mariee 05/17/25 [facility] 05/17/24 03/29/25 [employer] 05/19/25 documented as of this encounter
--- OUTSIDE RECORDS SUMMARY | 2025-05-25 21:10 | XMS_ITS ---
Author Organization [employer] Address 75 [facility] 7t [place] [address] Care Team Providers Care Pressurised Container Filler Name Role Phone Samantha Gonzales MD Primary Care Provider [phone] Adis Cordero RN Unavailable [phone] Wenceslao Mariee Unavailable CM Complex Status:Outreach In Progress (Enrolling) Start date:04/26/2025 Enrollment reason:ADT Feed Overview ED- Pt went to [facility] ED on 04/25/25. Case Team Name Relationship Phone Adis Cordero RN(Responsible Staff) Registered Melissa [facility] [phone] Continued Care and Services Coordination
--- OUTSIDE RECORDS SUMMARY | 2025-05-25 21:10 | XMS_ITS | Encounter Summary ---
Author Organization [employer] Address 75 [facility] 7t [place] [address] Care Team Providers Care Superintendent Production Name Role Phone Samantha Gonzales MD Primary Care Provider Gladis Mariee RN Unavailable [phone] Cecily Stern Unavailable Adis Cordero RN Unavailable [phone] Wenceslao Mariee Unavailable Reason for Visit * Reason Onset Date Comments urgent matter 10/10/2022 Encounter Details Date Type Department Care Team (Late st Contact Info) Description 10/10/2022 Telephone [facility] MEDICINE 230 [place], [place] [phone] Samantha Gonzales MD 230 [place], [place] [phone] urgent matter Social History Tobacco Use Types [...] EST Spoke with Karyn. Attended the court. Drywall Taper did not agree with [place] [address] * Telephone Encounter - Luz Elena Jones - 10/10/2022 1:58 PM EST Tc ivon Boss with [facility] regarding to pt. Karyn states that is an urgent matter regarding to Section [address] and will need to speak with PCP, regarding the matter to set up a zoom meeting with PCP and the court. Facility Technician contacted PCP in advise epic chat, and let PCP know what's going on. Please contact Karyn at [phone] documented in this encounter Plan of Treatment Not on file documented as of this encounter Visit Diagnoses Not on filedocumented in this encounter Care Teams Superintendent Production Relationship Specialty Start Date End Date Samantha Gonzales MD [address] [place] [address] PCP - General Family Medicine 07/09/13 Gladis Mariee, RN [address] [place] [address] Registered Nurse Family Medicine 04/26/25 05/17/25 Cecily Stern 05/10/25 05/17/25 Adis Cordero, RN [address] [place] [address] Registered Nurse Family Medicine 05/17/25 Wenceslao Mariee 05/17/25 [facility] 05/17/24 03/29/25 [employer] 05/19/25 documented as of this encounter
--- OUTSIDE RECORDS SUMMARY | 2025-05-25 21:10 | XMS_ITS | Encounter Summary ---
Author Organization [employer] Address 75 [facility] 7t [place] [address] Care Team Providers Care Beam Builder Helper Name Role Phone Samantha Gonzales MD Primary Care Provider [phone] Gladis Mariee RN Unavailable [phone] Cecily Stern Unavailable Adis Cordero RN Unavailable [phone] Wenceslao Mariee Unavailable Encounter Details Date Type Department Care Team (Late st Contact Info) Description 01/29/2023 Orders Only [facility] MEDICINE 230 [place], [place] [phone] Samantha Gonzales MD [address] [place], [place] [phone] Hypomagnesemia (Primary Dx) Social History Tobacco Use [...] as of this encounter Plan of Treatment Scheduled Orders [...] documented as of this encounter Care Teams Beam Builder Helper Relationship Specialty Start Date End Date Samantha Gonzales MD [address] [place] [address] PCP - General Family Medicine 07/09/13 Gladis Mariee RN [address] [place] [address] Registered Nurse Family Medicine 04/26/25 05/17/25 Cecily Stern 05/10/25 05/17/25 Adis Cordero, ROSALINDA [address] [place] [address] Registered Nurse Family Medicine 05/17/25 Wenceslao Mariee 05/17/25 [facility] 05/17/24 03/29/25 [employer] 05/19/25 documented as of this encounter
--- OUTSIDE RECORDS SUMMARY | 2025-05-25 21:10 | XMS_ITS | Encounter Summary ---
Author Organization [employer] Address 75 [facility] 7t [place] [address] Care Team Providers Care Hand Picker Name Role Phone Samantha Gonzales MD Primary Care Provider [phone] Gladis Mariee RN Unavailable [phone] Cecily Stern Unavailable Adis Cordero RN Unavailable [phone] Wenceslao Mariee Unavailable Reason for Referral * Consultation (Routine) - Authorized Specialty Diagnoses / Procedures Referred By Contlarissa silva Referred To Contact Podiatry Diagnoses Foot lesion Venous stasis Samantha Gonzales MD [address] [place] [address] Phone: tel: fax: Jerardo Brooks DPM [address] [place] [address] Phone: tel: fax: Referral ID Status Reason Start Date Expiration Date Visits Requested Visits Authorized [id number] Authorized Specialty Services Required 04/27/2025 04/27/2026 6 6 Encounter Details Date Type Department Care Team (Late st Contact Info) Description 04/27/2025 Orders Only [facility] MEDICINE 230 [place] [address] Samantha Gonzales MD [address] [place], [place] [phone] Foot lesion (Primary Dx); Venous stasis Social History Tobacco Use Types Packs/Day Years [...] of this encounter Plan of Treatment Scheduled Referrals Name Type Priority Associated Diagnoses Orde r Schedule Referral to Podiatry Outpatient Referral Routine Foot lesion Venous stasis Expected: 04/27/2025 (Approximate), Expires: 04/27/2026 documented as of this encounter Visit Diagnoses Diagnosis Foot lesion- Primary Unspecified disorder of skin and subcutaneous tissue Venous stasis Unspecified venous (peripheral) insufficiency documented in this encounter Additional Health Concerns Assessment Noted Time PHQ-9 Depression Total Score: 0 06/25/20 24 11:09 AM EST documented as of this encounter Care Teams Hand Picker Relationship Specialty Start Date End Date Samantha Gonzales MD [address] [place] [address] PCP - General Family Medicine 07/09/13 Gladis Mariee, ROSALINDA [address] [place] [address] Registered Nurse Family Medicine 04/26/25 05/17/25 Cecily Stern 05/10/25 05/17/25 Adis Cordero, ROSALINDA [address] [place] [address] Registered Nurse Family Medicine 05/17/25 Wenceslao Mariee 05/17/25 [employer] 05/19/25 documented as of this encounter
--- OUTSIDE RECORDS SUMMARY | 2025-05-25 21:10 | XMS_ITS ---
Author Organization [employer] Address 75 [facility] 7t [place] [address] Care Team Providers Care Fitness Sales Associate Name Role Phone Samantha Gonzales MD Primary Care Provider [phone] Adis Cordero RN Unavailable [phone] Wenceslao Mariee Unavailable CHW Complex Status:Outreach In Progress (Enrolling) Start date:05/10/2025 Enrollment reason:ADT Feed Overview ADT- [facility] ED 04/25/25. Please outreach for enrollment. Case Team Name Relationship Phone Wenceslao Mariee(Responsible Staff) [phone] Continued Care and Services Coordination
--- OUTSIDE RECORDS SUMMARY | 2025-05-25 21:10 | XMS_ITS | Encounter Summary ---
Author Organization [employer] Address [address] [facility] 7t [place] [address] Care Team Providers Care Three Knife Trimmer Name Role Phone Samantha Gonzales MD Primary Care Provider Gladis Mariee RN Unavailable [phone] Cecily Stern Unavailable Adis Cordero RN Unavailable [phone] Wenceslao Mariee Unavailable Reason for Referral * Imaging (Routine) - Closed Specialty Diagnoses / Procedures Referred By Mildred silva Referred To Contact Diagnoses Thyroid nodule Procedures US Guided Thyroid Biopsy Samantha Gonzales MD [address] [place] [address] Phone: tel: fax: [address] Phone: tel: fax: Referral ID Status Reason Start Date Expiration Date Visits Re quested Visits Authorized [id number] Closed 11/14/2022 05/13/2023 1 1 Encounter Details Date Type Department Care Team (Late st Contact Info) Description 11/14/2022 Orders Only [facility] MEDICINE [address] [place], [place] [phone] Samantha Gonzales MD [address] [place], [place] [phone] Thyroid nodule (Primary Dx) Social History Tobacco [...] goiter documented in this encounter Care Teams Three Knife Trimmer Relationship Specialty Start Date End Date Samantha Gonzales MD [address] [place] [address] PCP - General Family Medicine 07/09/13 Gladis Mariee, ROSALINDA [address] [place] [address] Registered Nurse Family Medicine 04/26/25 05/17/25 Cecily Stern 05/10/25 05/17/25 Adis Cordero, ROSALINDA [address] [place] [address] Registered Nurse Family Medicine 05/17/25 Wenceslao Mariee 05/17/25 [facility] 05/17/24 03/29/25 [employer] 05/19/25 documented as of this encounter
--- OUTSIDE RECORDS SUMMARY | 2025-05-25 21:10 | XMS_ITS | Clinical Summary ---
Author Organization [facility] Address [address] [place] [address] Phone Care Team Providers Care Aircraft General Repair Mechanic Name Role Phone Samantha Gonzales MD Primary Care Provider [phone] Allergies Active Allergy Reactions Criticality Noted Date [...] mg x 2 during 1st hospitalization in [facility] in Sep 2022 -Continue follow-up with maxillofacial prosthetics dentist Other dietary vitamin B12 deficiency anemia 09/20 [...] ablation in Aug 2018 -following with [facility] [place] [facility], periodically when he has open wounds. -Last seen by [facility] in October 2021 [...] -multifactorial - nutritional, CKD -following with [facility]illof[facility] dentist Aneurysm of ascending aorta 05/29/2016 Overview (11/07/2022): Last Assessment & Plan: -Most recent echo on 04/12/21, EF 60-65%, dilated ascending aorta 41mm -Echo on 04/05/20, EF 55-60%, dilated ascending aorta 42 mm, -Echo on 04/01/19 EF 60-65%, Aortic root dimension 37~43mm -Seen by his cardboard cutter, Dr. Claudio on n 07/11/22 -Pt advised [...] complete this topic Insurance Medicaid [place] Medicaid [place] Care Teams Aircraft General Repair Mechanic Relationship Specialty Start Date End Date Samantha Gonzales MD PCP - General 08/29/20
--- NOTE | 2025-05-25 21:11 | PC.NURSE ---
late entry- pt biba from home, a&ox4, respirations even and unlabored. pt reports drinking vodka and had mechanical fall at home, reports head strike and loc, denies thinners. pt reports today he was drinking in hopes to end his life. pt states increased depression because his girlfriend broke up with him. denies hi. pt in c collar at this time awaiting scans, sitter at bedside. 20g left ac and medicated per mar
--- OUTSIDE RECORDS SUMMARY | 2025-05-25 21:11 | XMS_ITS | Encounter Summary ---
Author Organization [employer] Address [address] [facility] 7t [place] [address] Care Team Providers Care Inbound Sales Manager Name Role Phone Samantha Gonzales MD Primary Care Provider Gladis Mariee RN Unavailable [phone] Cecily Stern Unavailable Adis Cordero RN Unavailable [phone] Wenceslao Mariee Unavailable Reason for Visit * Reason Onset Date Comments Nurse Triage 06/22/2024 Encounter Details Date Type Department Care Team (Late st Contact Info) Description 06/22/2024 Telephone [facility] MEDICINE 230 [place], [place] [phone] Samantha Gonzales MD [address] [place], [place] [phone] Nurse Triage Social History Tobacco Use Types [...] usual. Not at all 06/25/2024 11:09 AM Susan Fulton MA Thoughts that you would be better off [...] to Pt reports that a person from [employer] comes every 2-3 days and changes dressing [...] booking. Pt will have another visit with [employer] prior to apt. Protocol Used: Wound Infection [...] documented as of this encounter Care Teams Inbound Sales Manager Relationship Specialty Start Date End Date Samantha Gonzales MD [address] [place] [address] PCP - General Family Medicine 07/09/13 Gladis Mariee RN [address] [place] [address] Registered Nurse Family Medicine 04/26/25 05/17/25 Cecily Stern 05/10/25 05/17/25 Adis Cordero, ROSALINDA [address] [place] [address] Registered Nurse Family Medicine 05/17/25 Wenceslao Mariee 05/17/[address] [facility] 05/17/24 03/29/25 [employer] 05/19/25 documented as of this encounter
--- OUTSIDE RECORDS SUMMARY | 2025-05-25 21:11 | XMS_ITS | Encounter Summary ---
Author Organization [employer] Address [address] [facility] 7t [place] [address] Care Team Providers Care Testing Shaking Shipping Name Role Phone Samantha Gonzales MD Primary Care Provider [phone] Gladis Mariee RN Unavailable [phone] Cecily Stern Unavailable Adis Cordero RN Unavailable [phone] Wenceslao Mariee Unavailable Reason for Visit * Reason Onset Date Comments OV 01/2601/24/2024 Encounter Details Date Type Department Care Team (Late st Contact Info) Description 01/24/2024 Telephone [facility] MEDICINE 230 [place], [place] [phone] Samantha Gonzales MD [address] [place], [place] [phone] OV 01/26 Social History Tobacco Use Types [...] state he is currently in rehab in [place] and due to a set back pt does not have any transportation to make it to [place] on Saturday. If any questions please contact pt at [phone]. documented in this encounter Plan of Treatment Not on file documented as of this encounter Visit Diagnoses Not on filedocumented in this encounter Additional Health Concerns Assessment Noted Time PHQ-9 Depression Total Score: 3 12/15/19 23 1:37 PM EDT documented as of this encounter Care Teams Testing Shaking Shipping Relationship Specialty Start Date End Date Samantha Gonzales MD [address] [place] [address] PCP - General Family Medicine 07/09/13 Gladis Mariee, ROSALINDA [address] [place] [address] Registered Nurse Family Medicine 04/26/25 05/17/25 Cecily Stern 05/10/25 05/17/25 Adis Cordero, RN [address] [place] [address] [place] [address] Registered Nurse Family Medicine 05/17/25 Wenceslao Mariee 05/17/25 [facility] 05/17/24 03/29/25 [email or web address] 05/19/25 documented as of this encounter
--- OUTSIDE RECORDS SUMMARY | 2025-05-25 21:11 | XMS_ITS | Encounter Summary ---
Author Organization [employer] Address [address] [facility] 7t [place] [address] Care Team Providers Care Conference Manager Name Role Phone Samantha Gonzales MD Primary Care Provider [phone] Adis Cordero RN Unavailable [phone] Wenceslao Mariee Unavailable Reason for Visit * Reason Comments Care Coordination C3CM/CHW Wenceslao Hoyos gregor, outreach #[id number] Encounter Details Date Type Department Care Team (Latest Contact Info) Description 05/20/2025 Patient Outreach [facility] MEDICINE [address] [place] [address] Samantha Gonzales MD [address] [place] [address] Care Coordination (C3CM/CHW Wenceslao Mariee, outreach #[id number] ) Social History Tobacco Use Types Packs/Day [...] as of this encounter Progress Notes * Wenceslao Mariee - 05/20/2025 2:48 PM EDT CHW Wenceslao Mariee, placed outbound call to patient to introduce [facility]. No answer at this time. EVANW BELINDA introducing herself from [facility] CM Department with [facility]'imtiaz, department and direct contact number requesting call back. Will re-attempt to contact within 2 days. and address not confirmed. documented in this encounter Plan of Treatment Not on file documented as of this encounter Visit Diagnoses Not on filedocumented in this encounter Additional Health Concerns Assessment Noted Time PHQ-9 Depression Total Score: 0 06/25/20 24 11:09 AM EST documented as of this encounter Care Teams Conference Manager Relationship Specialty Start Date End Date Samantha Gonzales MD [address] [place] [address] PCP - General Family Medicine 07/09/13 Adis Cordero, RN [address] [place] [address] Registered Nurse Family Medicine 05/17/25 Wenceslao Mariee 05/17/25 [employer] 05/19/25 documented as of this encounter
--- OUTSIDE RECORDS SUMMARY | 2025-05-25 21:11 | XMS_ITS | Encounter Summary ---
Author Organization [employer] Address 75 [facility] 7t [place] [address] Care Team Providers Care Back Winder Name Role Phone Samantha Gonzales MD Primary Care Provider [phone] Gladis Mariee RN Unavailable [phone] Cecily Stern Unavailable Adis Cordero RN Unavailable [phone] Wenceslao Mariee Unavailable Reason for Referral * Consultation (Routine) - Canceled Specialty Diagnoses / Procedures Referred By Contac t Referred To Contact Pharmacy Diagnoses Essential hypertension Samantha Gonzales MD [address] [place] [address] Phone: tel: fax: Referral ID Status Reason Start Date Expiration Date V isits Requested Visits Authorized [id number] Canceled Consult and Treat 01/29/2025 01/29/2026 6 6 * Consultation (Routine) - Pending Review Specialty Diagnoses / Procedures Referred By Contac t Referred To Contact Pharmacy Diagnoses Essential hypertension Renal cell cancer, left (CMS/HCC) (HCC) Samantha Gonzales MD [address] [place] [address] Phone: tel: fax: Referral ID Status Reason Start Date Expiration Date Visits Requested Visits Authorized [id number] Pending Review Continuity of Care 01/29/2025 01/29/2026 6 6 * Consultation (Routine) - Authorized Specialty Diagnoses / Procedures Referred By Contac t Referred To Contact Wound Care Diagnoses Open wound of lower leg, unspecified laterality, initial encounter Chronic venous stasis Samantha Gonzales MD [address] [place] [address] Phone: tel: fax: [facility] [address] [place] [address] Phone: tel: fax: Referral ID Status Reason Start Date Expiration Date Visits Requested Visits Authorized [id number] Authorized Specialty Services Required 01/18/2025 01/18/2026 12 12 Encounter Details Date Type Department Care Team (Late st Contact Info) Description 01/17/2025 Orders Only [facility] MEDICINE [address] [place] [address] Samantha Gonzales MD [address] [place] [address] Open wound of lower leg, unspecified laterality, [...] as of this encounter Plan of Treatment Pending Results Name Type Priority Associated Diagnoses [...] PM EDT Narrative 01/22/2025 4:43 PM EDT [address] [address] XRay Report Signed Patient: Mohan Gonzalez MR#: [id number] : 1960 Acct:[id number] Age/Sex: 64 / M ADM Date: 01/22/25 Loc: .ED Attending Dr: Ordering Physician: Annie Huber DO Date of Service: 01/22/25 Procedure(s): XR chest 1V Accession Number(s): [id number] cc: Annie Huber DO; Samantha Gonzales MD [...] 01/22/25 1641 DD/ 1519 TD/TT: 01/22/25 1620 Procurement Cost Coordinator: Procedure Note Donotuseinterpreter, Image - 01/22/[address] [address] XRay Report Signed Patient: Mohan Gonzalez AMR#: [id number] : 1960cct:[id number] Age/Sex: 64 / MADM Date: 01/22/25 Loc: .ED Attending Dr: Ordering Physician: Annie Huber DO Date of Service: 01/22/25 Procedure(s): XR chest 1V Accession Number(s): [id number] cc: Annie Huber DO; Samantha Gonzales MD [...] 01/22/25 1641 DD/ 1519 TD/TT: 01/22/25 1620 Procurement Cost Coordinator: [employer] External Provider IMG XR PROCEDURES Final Result documented in this encounter Visit Diagnoses Diagnosis Open wound of lower leg, unspecified laterality, initial encounter- Primary Chronic venous stasis Essential hypertension Unspecified essential hypertension Renal cell cancer, left (CMS/HCC) (HCC) documented in this encounter Additional Health Concerns Assessment Noted Time PHQ-9 Depression Total Score: 0 06/25/20 24 11:09 AM EST documented as of this encounter Care Teams Back Winder Relationship Specialty Start Date End Date Samantha Gonzales MD [address] [place] [address] PCP - General Family Medicine 07/09/13 Gladis Mariee RN 505 [place] [address] Registered Nurse Family Medicine 04/26/25 05/17/25 Cecily Stern 05/10/25 05/17/25 Adis Cordero, ROSALINDA [address] [place] [address] Registered Nurse Family Medicine 05/17/25 Wenceslao Mariee 05/17/25 [facility] 05/17/24 03/29/25 [employer] 05/19/25 documented as of this encounter
--- OUTSIDE RECORDS SUMMARY | 2025-05-25 21:11 | XMS_ITS | Encounter Summary ---
Author Organization [facility] Address [address] [place] [address] Phone Care Team Providers Care Machinery Mechanic Name Role Phone Vito Maki MD Primary Care Provider [phone] Encounter Details Date Type Department Care Team (Late st Contact Info) Description 01/29/2022 Transcribe Orders [facility] [address] [place] [address] Vito Maki MD [address] [facility], [address], [address] [place] [address] [email or web address] Diagnosis unknown (Primary Dx) Social [...] EDT) WBC 10.18 4.00 - 11.00 K/uL [facility] RBC 3.91 3.90 - 5.69 M/uL [facility] HGB 9.1(L) 12.4 - 17.3 g/dL [facility] HCT 30.6(L) 37.0 - 51.0 % [facility] PLT 302 140 - 430 K/uL [facility] MCV 78.3 78.0 - 97.0 fL [facility] MCH 23.3(L) 25.0 - 33.0 pg [facility] MCHC 29.7(L) 32.0 - 36.0 g/dL [facility] RDW 16.7(H) 11.0 - 15.0 % [facility] MPV 9.4 8.4 - 12.8 fl [facility] NRBC 0.00 0 /100 WBCs [facility] ABSOLUTE NRBC 0.00 0 K/uL [facility] Blood 01/29/2022 7:00 AM EDT 01/29/2022 4:20 PM EDT us Vito Maki MD LAB BLOOD ORDERABLES Final Resul t [facility] [address] [place] [address] * (ABNORMAL) Comprehensive metabolic panel (01/29/2022 7:00 AM EDT) SODIUM 139 133 - 146 mmol/L [facility] POTASSIUM 3.7 3.3 - 5.1 mmol/L [facility] Comment:Specimen slightly he molyzed, result may be falsely elevated. CHLORIDE 95(L) 96 - 108 mmol/L [facility] CO2 26 21 - 35 mmol/L [facility] BUN 42(H) 6 - 19 mg/dL [facility] CREATININE 1.20 0.5 - 1.5 mg/dL [facility] GLUCOSE 110(H) 70 - 99 mg/dL [facility] ALBUMIN 3.8(L) 3.9 - 4.8 g/dL [facility] TOTAL PROTEIN 7.2 6.5 - 8.0 g/dL [facility] CALCIUM 9.3 8.4 - 10.3 mg/dL [facility] ALKALINE PHOSPHATASE 120(H) 39 - 117 U/L [facility] TOTAL BILIRUBIN 0.6 0.0 - 1.2 mg/dL [facility] AST 21 0 - 37 U/L [facility] ALT 11 0 - 40 U/L [facility] GLOBULIN 3.4 1 - 4.8 g/dL [facility] EGFR 69 >59 mL/min/1.7 3m2 [facility] Comment:Estimated glomerular filtration rate calculated using the CKD-EPI refit equation. ANION GAP 22(H) 10 - 20 mmol/L [facility] Blood 01/29/2022 7:00 AM EDT 01/29/2022 4:20 PM EDT us Vito Maki MD LAB BLOOD ORDERABLES Final Resul t [address] [address] documented in this encounter Visit Diagnoses Diagnosis Diagnosis unknown- Primary documented in this encounter Care Teams Machinery Mechanic Relationship Specialty Start Date End Date Vito Maki MD [email or web address] PCP - General Family Medicine 01/29/22 documented as of this encounter Additional Source Comments The information contained in this document represents components of the legal health record. It is not the complete legal health record.[facility]
--- OUTSIDE RECORDS SUMMARY | 2025-05-25 21:11 | XMS_ITS | Clinical Summary ---
Author Organization [facility] Address [address] [place] [address] [place] [address] Phone Care Team Providers Care Computed Tomography Technician Name Role Phone Vito Maki MD Primary Care Provider [phone] Social History Tobacco Use Types Packs/Day Years [...] Medical Devices Not on file Insurance [facility] C3 ACO C3 ACO C3 ACO C3 [place] [id number] [place] [address] [address] [place] [address] [place] [address] [address] [id number] [facility] [place] [id number] [facility] C3 ACO Care Teams Computed Tomography Technician Relationship Specialty Start Date End Date Vito Maki MD [email or web address] [email or web address] - General Family Medicine 01/29/22 Additional Source Comments The information contained in this document represents components of the legal health record. It is not the complete legal health record.[facility]
--- OUTSIDE RECORDS SUMMARY | 2025-05-25 21:11 | XMS_ITS | Encounter Summary ---
Author Organization [employer] Address [address] [place] [address] Care Team Providers Care Transitional Nurse Name Role Phone Samantha Gonzales MD Primary Care Provider [phone] Gladis Mariee RN Unavailable [phone] Cecily Stern Unavailable Adis Cordero RN Unavailable [phone] Wenceslao Mariee Unavailable Reason for Visit * Reason Onset Date Comments Appointment Request 01/12/2025 Encounter Details Date Type Department Care Team (Late st Contact Info) Description 01/12/2025 Telephone [facility] [address] [place], [place] [phone] Samantha Gonzales MD [address] [place], [place] [phone] Appointment Request Social History Tobacco Use Types [...] Trouble relaxing 1 01/12/2025 1:02 PM EDT Nicole Auguste [place] Being so restless that it is [...] [facility] to [facility] Please return call to reschedule 01/12 appointment [phone] documented in this encounter Plan of Treatment Not on file documented as of this encounter Visit Diagnoses Not on filedocumented in this encounter Additional Health Concerns Assessment Noted Time PHQ-9 Depression Total Score: 0 06/25/20 24 11:09 AM EST documented as of this encounter Care Teams Transitional Nurse Relationship Specialty Start Date End Date Samantha Gonzales MD [address] [place] [id number] PCP - General Family Medicine 07/09/13 Gladis Mariee, ROSALINDA [address] [place] [address] Registered Nurse Family Medicine 04/26/25 05/17/25 Cecily Stern 05/10/25 05/17/25 Adis Cordero, ROSALINDA [address] [place] [address] Registered Nurse Family Medicine 05/17/25 Wenceslao Mariee 05/17/25 [facility] 05/17/24 03/29/25 [employer] 05/19/25 documented as of this encounter
[2025-05-25 21:14] LABS: Acetaminophen LAB < 3 mcg/mL (<30); Salicylate < 5.0 mg/dL (15-30)
[2025-05-25 22:15] VITALS: BP 139/75; PULSE 78; RESP 18; TEMP 36.9; O2SAT 96
--- NOTE | 2025-05-25 23:01 | ED.GENADULT ---
HPI - General Adult General Chief complaint: Fall Stated complaint: Mechanical Fall H/S, ETOH, LOC Time Seen by Provider: 05/25/25 20:08 Source: patient and EMS Limitations: other (Intoxication) History of Present Illness ED Provider: Kyra Tabor PA-C HPI narrative: 64-year-old male with a history of alcohol use disorder, with a prior alcohol withdrawal, chronic kidney disease, hypertension, chronic anemia, gout, hypertension, hyperlipidemia, who presents with SI. Patient states his girlfriend just left him, he is now suicidal, he has a plan to ?drink himself to ?. Patient has sustained a mechanical fall, falling backwards, he did strike his head. Patient states he did lose consciousness, he is not on blood thinners. He has no pain related complaints at this time. History is limited as the patient is perseverating over his significant other leaving him. Related Data Home Medications ?Medication ?Instructions ?Recorded ?Confirmed rosuvastatin 5 mg tablet 5 mg PO BEDTIME 08/26/23 01/22/25 allopurinol 300 mg tablet 300 mg PO DAILY 07/29/24 01/22/25 ascorbate calcium (vitamin C) 500 500 mg PO BID 07/29/24 01/22/25 mg tablet calcium 250 mg (as 1 tab PO TID 10/16/24 01/22/25 carbonate)-vitamin D3 3.125 mcg (125 unit) tablet (Oyster Shell Calcium-Vitamin D3) cholecalciferol (vitamin D3) 50 50 mcg PO DAILY 10/16/24 01/22/25 mcg (2,000 unit) tablet (Vitamin D3) ferrous sulfate 325 mg (65 mg 325 mg PO DAILY 10/16/24 01/22/25 iron) tablet,delayed release poanspacxkmz-vhmkugdw-bdmi 1 tab PO DAILY 10/16/24 01/22/25 fumarate 7.5 mg-folic acid 400 mcg tablet pyridoxine (vitamin B6) 50 mg 50 mg PO DAILY 10/16/24 01/22/25 tablet (Vitamin B-6) thiamine HCl (vitamin B1) 100 mg 100 mg PO DAILY 10/16/24 01/22/25 tablet (Vitamin B-1) acetaminophen 325 mg tablet 650 mg PO Q4H PRN Pain (Scale 01/22/25 01/22/25 Score 4-6) metoprolol succinate 25 mg 25 mg PO DAILY 01/22/25 01/22/25 tablet,extended release 24 hr Previous Rx's ?Medication ?Instructions ?Recorded magnesium oxide 400 mg (241.3 mg 400 mg PO DAILY #10 tabs 04/25/23 magnesium) tablet folic acid 1 mg tablet 1 mg PO DAILY #30 tabs 10/01/23 doxycycline monohydrate 100 mg 100 mg PO BID #14 caps 01/24/25 capsule torsemide 20 mg tablet 20 mg PO Q OTHER DAY 90 days #45 02/05/25 tabs Allergies Allergy/AdvReac Type Severity Reaction Status Date / Time azithromycin (AZITHROMYCIN) Allergy Severe FACIAL Verified 05/25/25 20:04 SWELLING hydrochlorothiazide (HCTZ) Allergy Severe Facial Verified 05/25/25 20:04 Swelling PMFSH Past Medical History Medical History Abdominal wall abscess at site of surgical wound CKD stage 3a, GFR 45-59 ml/min Colitis Renal mass Renal cell carcinoma Alcohol use disorder Hyperlipidemia Ascending aortic aneurysm Alcoholic steatohepatitis Seborrheic dermatitis DEBORAH (obstructive sleep apnea) History of rhabdomyolysis Hx of lower gastrointestinal bleeding Hx of sepsis History of DVT of lower extremity Chronic ulcer of leg Chronic venous stasis HTN (hypertension) Anemia Anemia Surgical History H/O partial nephrectomy Hx of colonoscopy Family History Family History Mother Dementia Maternal Grandmother Dementia Social History Social History Household Members: Family Household Members Other:: mother who has dementia Housing: House Housing Other:: 4 stairs to get into house. Pt lives in basement Do you presently have visiting nurse or other home services: Yes Alcohol intake: current Alcohol intake frequency: 0-2 drinks per day Alcohol type: hard liquor Comment: pt refused socks Patient Tobacco Use Status: Never used Tobacco Smoked in Last 30 Days: No Use of substances other than those prescribed or required for medical reasons: No Advance Directives: Yes Advance Directives on File: Yes Advance Directives Date on File: 04/13/22 Do you have a plan to hurt others: No Plan service: No Current occupational status: disabled Physical Exam ED Vital Signs: Vital Signs - 24 hr 05/25/25 19:57 05/25/25 22:15 05/26/25 04:38 Temperature 98 F 98.4 F 97.8 F Pulse Rate 65 78 83 Respiratory Rate 12 18 18 Blood Pressure 142/78 H 139/75 170/91 H Pulse Oximetry 98 96 98 Oxygen Delivery Method Room Air Room Air Room Air BMI result Body Mass Index 34.9 Course Reevaluation(s) Reevaluation #1: Time: 23:07 Date: 05/25/25 Provider: KADEN Harris Patient in physician observation for psychiatric evaluation.? No acute events reported overnight. No current complaints. VS stable.? Patient is in bed search status/pending CARE team evaluation. Will continue to monitor. Reevaluation #2: 8:02 AM 05/26/2025 (Dr. Gil Jane): Time: 08:02 Date: 05/26/25 Provider: Gil Jane DO Physician observation ended Patient has been cleared for discharge by the CARE team. Will follow up as an outpatient Medications Administered Discontinued Medications Generic Name Dose Route Start Last Admin Trade Name Freq PRN Reason Stop Dose Admin Sodium Chloride 500 mls @ 500 mls/hr 05/25/25 20:21 05/25/25 22:07 Ns IV 05/25/25 21:20 Infused .Q1H ONE Infusion Lorazepam 2 mg 05/26/25 04:45 05/26/25 04:57 Lorazepam 1 Mg Tablet PO 05/26/25 04:46 2 mg ONCE ONE Administration Ondansetron HCl 4 mg 05/25/25 20:21 05/25/25 20:56 Ondansetron Hcl 4 Mg/2 Ml Vial IVPUSH 05/25/25 20:22 4 mg ONCE ONE Administration Medical Decision Making Medical Decision Making MDM Narrative: 64-year-old male with a history of alcohol use disorder, with a prior alcohol withdrawal, chronic kidney disease, hypertension, chronic anemia, gout, hypertension, hyperlipidemia, who presents with SI. Patient states his girlfriend just left him, he is now suicidal, he has a plan to ?drink himself to ?. Patient has sustained a mechanical fall, falling backwards, he did strike his head. Patient states he did lose consciousness, he is not on blood thinners. He has no pain related complaints at this time. History is limited as the patient is perseverating over his significant other leaving him. Problem: Alcohol use disorder, History: Per patient which is limited I have considered the following differential diagnoses: Intracranial hemorrhage, cervical spine injury, fracture, dislocation, SI, HI, decompensated psychiatric illness, drug/alcohol intoxication Plan: We will be screening basic labs, serum ethanol and drug screen, the patient will eventually be referred to the care team. Given his traumatic fall, we will be scanning his head and neck. At this time he is moving all extremities, no indication for x-rays, I will do a secondary survey once his cervical collar can be cleared. will place ciwa scale I have independently reviewed the following tests: Labs: No leukocytosis, stable anemia, no electrolyte abnormality, serum ethanol 368, drug screen negative CT brain:indings: No intra-axial mass, midline shift, hydrocephalus, or acute hemorrhage. There is atrophy. There are mild nonspecific supratentorial white matter hypodensities most suggestive of chronic small-vessel ischemic changes. Atherosclerotic vascular disease. Minimal mucosal thickening and very small mucous retention cyst/polyp in right maxillary sinus. Otherwise sinuses and mastoid air cells are clear. The orbits are within normal limits. There is no acute skull fracture. IMPRESSION: 1. No acute intracranial findings. CT cervical spine:Findings: Slight dextrocurvature of cervical spine likely positional. Otherwise alignment is maintained. No subluxation. Vertebral body height is maintained. No acute fracture in the cervical spine. Craniocervical junction is intact. Degenerative changes at C5-6 and C6-7 levels. Prevertebral soft tissues within normal limits. 5 mm calcified nodule in right thyroid lobe posteriorly. No consolidation or effusion at the lung apices. IMPRESSION: No acute findings. Differential Diagnosis Differential Diagnoses: The differential diagnosis associated with the presentation includes See medical decision-making Admission/Observation Consideration of admission/observation: Escalation of care including admission/observation considered May require inpatient level of care Consult Healthcare Provider Management of the patient was discussed with: Behavioral Health Provider Lab Data [facility] Lab Attestation statement: I reviewed the patient's lab results. 05/25/25 20:19 05/25/25 20:19 Labs: Lab Results 05/25/25 05/25/25 Range/Units 20:19 20:43 WBC 5.7 (4.8-10.8) X10*3/uL RBC 3.09 L (4.60-5.80) X10*6/uL Hgb 9.1 L (14.0-18.0) g/dl Hct 28.3 L (42.0-52.0) % MCV 91.6 (80.0-98.0) fL MCH 29.4 (27.0-33.0) pg MCHC 32.2 (31.0-36.0) g/dl RDW 16.7 H (11.0-16.0) % Plt Count 183 (160-400) X10*3/uL MPV 8.1 L (9.4-12.4) fL Immature Gran % (Auto) 0.2 (0.0-0.4) % Neut % (Auto) 44.1 L (45-73) % Lymph % (Auto) 45.5 H (20-40) % [place] % (Auto) 4.4 (2-11) % Eos % (Auto) 3.5 (0-4) % Baso % (Auto) 2.3 H (0-2) % Lymph # (Auto) 2.6 (1.2-4.9) X10*3/uL [place] # (Auto) 0.3 (0.1-1.2) X10*3/uL Eos # (Auto) 0.2 (0.0-0.4) X10*3/uL Baso # (Auto) 0.1 (0.0-0.2) X10*3/uL Abs Immat Gran (auto) 0.01 (0.00-0.03) X10*3/uL Absolute Neuts (auto) 2.5 (2.0-8.3) x10*3/uL Absolute Nucleated RBC 0.000 (0.0-0.012) X10*3/uL Nucleated RBC % (auto) 0.0 (0.0-0.2) /100WBC Sodium 146 H (135-145) mmol/L Potassium 4.2 (3.3-5.1) mmol/L Chloride 110 H (96-108) mmol/L Carbon Dioxide 22 (22-29) mmol/L Anion Gap 18 (12-20) BUN 21 H (9-16) mg/dL Creatinine 0.91 (0.5-1.4) mg/dL Estim Creat Clear Calc 94.1 Estimated GFR > 60 Random Glucose 92 (60-115) mg/dL Calcium 8.9 (8.4-10.2) mg/dL Magnesium 1.6 (1.6-2.6) mg/dL Total Bilirubin 0.5 (0.0-1.0) mg/dL AST 33 (5-37) U/L ALT 8 (0-40) U/L Alkaline Phosphatase 120 H (39-117) U/L Total Protein 7.5 (6.5-8.0) g/dL Albumin 4.0 (3.5-5.0) g/dL Salicylates < 5.0 L (15-30) mg/dL Urine Opiates Screen Not Detected (Not Detect) Ur Buprenorphine Scrn Not Detected (Not Detect) ng/mL Ur Oxycodone Screen Not Detected (Not Detect) ng/mL Urine Methadone Screen Not Detected (Not Detect) ng/mL Urine Fentanyl Screen Not Detected (Not Detect) Acetaminophen < 3 (<30) mcg/mL Ur Barbiturates Screen Not Detected (Not Detect) Ur Phencyclidine Scrn Not Detected (Not Detect) Ur Amphetamines Screen Not Detected (Not Detect) U Benzodiazepines Scrn Not Detected (Not Detect) Urine Cocaine Screen Not Detected (Not Detect) U Marijuana (THC) Screen Not Detected (Not Detect) Ethyl Alcohol 386 H* mg/dL Radiology Impression Discussion of test interpretation with radiology: I have reviewed the radiologist's reading. Discharge Plan Discharge Clinical Impression: Alcohol intoxication, Alcohol use disorder, Suicidal ideation Patient Disposition: Home, Self-Care Additional Instructions: Alcohol use disorder You were seen in the Emergency Department today for treatment of alcohol use disorder.? You may have been given medications to help with your withdrawal symptoms.? Please do not drink alcohol with them. This is very dangerous and can cause respiratory depression or other adverse reactions depending on the medication. If you would like to cut down or stop your alcohol use please consider calling our outpatient Addiction Treatment office:? [facility] [place] (M-F [id number]) [address] [place] [address] You have also been given a list of treatment providers in the area that can assist as well.? If you experience seizures, vomiting blood, black stools, falls, severe headache, chest pain, fevers, trouble breathing, hallucinations or any other concerns you need to call 911 or seek immediate care. Please stay hydrated. Prescriptions: No Action torsemide 20 mg tablet 20 mg PO Q OTHER DAY 90 Days Qty: 45 3RF magnesium oxide 400 mg (241.3 mg magnesium) tablet 400 mg PO DAILY Qty: 10 0RF rosuvastatin 5 mg Tablet 5 mg PO BEDTIME folic acid 1 mg tablet 1 mg PO DAILY Qty: 30 0RF acetaminophen 325 mg Tablet 650 mg PO Q4H PRN (Reason: Pain (Scale Score 4-6)) metoprolol succinate 25 mg Tablet Extended Release 24 Hr 25 mg PO DAILY doxycycline monohydrate 100 mg capsule 100 mg PO BID Qty: 14 0RF thiamine HCl (vitamin B1) [Vitamin B-1] 100 mg Tablet 100 mg PO DAILY pyridoxine (vitamin B6) [Vitamin B-6] 50 mg Tablet 50 mg PO DAILY calcium carbonate-vitamin D3 [Oyster Shell Calcium-Vit D3] 250 mg-3.125 mcg (125 unit) tablet 1 tab PO TID cholecalciferol (vitamin D3) [Vitamin D3] 50 mcg (2,000 unit) Tablet 50 mcg PO DAILY bnlkbsut-nen-vgdz fum-folic ac 7.5 mg iron-400 mcg tablet 1 tab PO DAILY ferrous sulfate 325 mg (65 mg iron) Tablet,Delayed Release (Dr/Ec) 325 mg PO DAILY allopurinol 300 mg tablet 300 mg PO DAILY ascorbate calcium (vitamin C) 500 mg tablet 500 mg PO BID Interventions: ED Discharge Assessment Last Done: 05/26/25 08:08 Discharge Date/Time: 05/26/25 08:44 Print Language: Kinyarwanda
--- NOTE | 2025-05-26 03:10 | PC.NURSE ---
Assumed care of pt at 0310. Report received from Marquita Tabares. Safety precautions in place- 15 minutes check remain, video monitoring on.
--- NOTE | 2025-05-26 04:31 | PC.NURSE ---
TYLER 6. Provider notified. plan of care ongoing
[2025-05-26 04:38] VITALS: BP 170/91; PULSE 83; RESP 18; TEMP 36.6; O2SAT 98
--- NOTE | 2025-05-26 05:01 | PC.NURSE ---
pt medicated as per mar
[2025-05-26 08:05] VITALS: BP 160/91; PULSE 86; RESP 16; TEMP 36.9; O2SAT 94
[2025-05-26 08:08] VITALS: BP 160/91; PULSE 86; RESP 16; TEMP 36.9; O2SAT 94
--- NOTE | 2025-05-26 08:11 | MHC.CARE ---
Pt does not meet the criteria for a higher level of care and does not present as an imminent risk. Pt declined a detox referral or to speak to the [facility]. Pt has declined all appropriate services and will D/C home. ED provider in agreement.
== END 2025-05-26 08:44 | disposition home or self-care (01) ==
PROVIDERS: Physician Assistant Medical; Emergency Provider Emergency Medicine
DX: F10.129 Alcohol abuse with intoxication, unspecified (principal); R45.851 Suicidal ideations; I12.9 Hypertensive chronic kidney disease with stage 1 through stage 4 chronic kidney disease, or unspecified chronic kidney disease; N18.31 Chronic kidney disease, stage 3a; Z88.1 Allergy status to other antibiotic agents; Z88.8 Allergy status to other drugs, medicaments and biological substances
CPT/HCPCS: 36415; 70450; 72125; 80053; 80143; 80179; 80307; 83735; 85025; 96361; 96374; 99285; J2405; S9485

== ENCOUNTER → 2025-05-25 20:10 | Outpatient (BNV) | payer MEDICAID, SELFPAY | PROVIDERS: Emergency Provider Emergency Medicine; Visit Provider Specialist | DX: M50.322 Other cervical disc degeneration at C5-C6 level (principal); I67.82 Cerebral ischemia; G31.1 Senile degeneration of brain, not elsewhere classified | CPT/HCPCS: 70450; 72125 ==

== ENCOUNTER 2025-06-01 15:43 | Emergency (ER) | payer MEDICAID, SELFPAY ==
--- NOTE | ~2025-06-01 | CT_ITS ---
CLINICAL HISTORY: abdominal pain and diarrhea CT abdomen and pelvis with contrast Comparison: CT/REG/SR - CT ABDOMEN PELVIS WO IV CON - 03/13/25 10:08 EDT Findings: The lung bases are clear. Gynecomastia. Unremarkable gallbladder and solid organs. No urolithiasis. Prior partial left lower pole renal nephrectomy. No bowel obstruction, pneumoperitoneum, or pneumatosis. Calcified coronary atherosclerotic disease. Mesenteric root peritoneal inflammatory changes. Mild calcified atherosclerotic disease of the abdominal aorta. Diverticulosis. The appendix is not identified. The prostate is within normal limits. Mild osteopenia. IMPRESSION: 1. Persistent Mesenteric root panniculitis 2. Diverticulosis. 3. Calcified coronary atherosclerotic disease. This document has been electronically signed by: Tobin Hein MD on 06/01/2025 23:08:58
--- OUTSIDE RECORDS SUMMARY | 2025-06-01 14:20 | XMS_ITS | Encounter Summary ---
Author Organization [employer] Address [address] [place] [address] Care Team Providers Care Shells Inspector Name Role Phone Samantha Gonzales MD Primary Care Provider Adis Cordero RN Unavailable [phone] Wenceslao Mariee Unavailable Encounter Details Date Type Department Care Team (Latest Contact Info) Description 06/01/2025 2:20 PM EDT Office Visit [facility] [address] [place] [address] Acute gastroenteritis (Primary Dx); Dizziness Social History Tobacco Use Types Packs/Day Years [...] Answer Date Recorded Patient Health Questionnaire-9 Score 9 06/01/2025 Patient Health Questionnaire-9 Score 9 06/01/2025 Last PHQ-9: Questionnaire Data Not on file 1 Housing Stability Answer Date Recorded What is [...] Answer Date Recorded Patient Health Questionnaire-2 Score 1 06/01/2025 Internet Access Answer Date Recorded Internet Access [...] Sign Reading Time Taken Comments Blood Pressure 157/86 06/01/2025 2:56 PM EDT Pulse 103 06/01/2025 2:56 PM EDT Temperature 37 C (98.6 F) 06/01/2025 2:56 PM EDT Respiratory Rate 32 06/01/2025 2:56 PM EDT Oxygen Saturation 98% 06/01/2025 2:56 PM EDT Inhaled Oxygen Concentration - - Weight - - Height - - Body Mass Index - - documented in this encounter Functional Status * Over the past 2 weeks, how often have you been bothered by any of the following problems? Question Answer Date of Assessment Author Patient Health Questionnaire-2 Score 1 06/01/2025 1:46 PM EDT Oliverio Erazo * Little interest or pleasure in doing things Answer Date of Assessment Author Several days 06/01/2025 1:46 PM EDT Oliverio Elias * Feeling down, depressed, or hopeless Answer Date of Assessment Author Not at all 06/01/2025 1:46 PM EDT Oliverio Elias * Trouble falling or staying asleep, or sleeping too much Answer Date of Assessment Author Several days 06/01/2025 1:46 PM EDT Oliverio Elias * Feeling tired or having little energy Answer Date of Assessment Author Nearly every day 06/01/2025 1:46 PM EDT Oliverio Donaldson * Poor appetite or overeating Answer Date of Assessment Author Several days 06/01/2025 1:46 PM EDT Oliverio Elias * Feeling bad about yourself - or that you are a failure or have let yourself or your family down Answer Date of Assessment Author Several days 06/01/2025 1:46 PM EDT Oliverio Elias * Trouble concentrating on things, such as reading the newspaper or watching television Answer Date of Assessment Author Several days 06/01/2025 1:46 PM EDT Oliverio Elias * Moving or speaking so slowly that other people could have noticed? Or the opposite - being so fidgety or restless that you have been moving around a lot more than usual. Answer Date of Assessment Author Several days 06/01/2025 1:46 PM EDT Oliverio Elias * Thoughts that you would be better off or hurting yourself in some way Answer Date of Assessment Author Not at all 06/01/2025 1:46 PM EDT Oliverio Elias * Patient Health Questionnaire-9 Score Answer Date of Assessment Author 9 06/01/2025 1:46 PM EDT Oliverio Elias * How difficult have these problems made it for you to do your work, take care of things at home, or get along with other people? Answer Date of Assessment Author Somewhat difficult 06/01/2025 1:46 PM EDT Oliverio Garza * Over the last 2 weeks, how often have you been bothered by any of the following problems? Question Answer Date of Assessment Author Feeling nervous, anxious, or on edge 1 06/01/2025 1:46 PM PRISCILLAT Oliverio Casillas Not being able to stop or control worrying 1 06/01/2025 1:46 PM EDT Oliverio Casillas Worrying too much about different things 1 06/01/2025 1:46 PM EDT Oliverio Casillas Trouble relaxing 1 06/01/2025 1:46 PM EDT S Zaira Oliverio Being so restless that it is hard to sit still 0 06/01/2025 1:46 PM EDT Oliverio Casillas Becoming easily annoyed or irritable 1 06/01/2025 1:46 PM EDT Oliverio Casillas Feeling afraid as if something awful might happen 0 06/01/2025 1:46 PM EDT Oliverio Donaldson MILO-7 Total Score 5 06/01/2025 1:46 PM EDT Oliverio Casillas documented as of this encounter Plan of Treatment Not on file documented as of this encounter Procedures Procedure Name Priority Date/Time Associated Diagnosis Comments POCT GLUCOSE Routine 06/01/2025 3:32 PM EDT Dizziness documented in this encounter Results * POCT Glucose (06/01/2025 3:32 PM EDT) [facility] Glucose Blood, POC 113 60 - 200 mg/dL QC Media Lot # [id number] Lot# Expiration Date Blood Capillary blood specimen / Unknown 06/01/2025 3:32 PM EDT Radha Gtz MD POINT OF CARE TEST ENTER /EDIT ORDERABLES Final Result documented in this encounter Visit Diagnoses Diagnosis Acute gastroenteritis- Primary Other and unspecified noninfectious gastroenteritis and colitis Dizziness Dizziness and giddiness documented in this encounter Additional Health Concerns Assessment Noted Time PHQ-9 Depression Total Score: 9 06/01/20 25 1:46 PM EDT documented as of this encounter Care Teams Shells Inspector Relationship Specialty Start Date End Date Samantha Gonzales MD [address] [place] [address] PCP - General Family Medicine 07/09/13 Adis Cordero, ROSALINDA [address] [place] [id number] Registered Nurse Family Medicine 05/17/25 Wenceslao Mariee 05/17/25 [employer] 05/19/25 documented as of this encounter
[2025-06-01 15:51] VITALS: BP 156/92; PULSE 99; O2SAT 99
[2025-06-01 16:11] VITALS: BP 169/73; PULSE 100; RESP 18; TEMP 36.6; O2SAT 100; BMI 33.4
--- NOTE | 2025-06-01 16:11 | ED.GENADULT ---
HPI - General Adult General Chief complaint: Nausea/Vomiting/Diarrhea Stated complaint: unable to drink or eat for a few days Time Seen by Provider: 06/01/25 20:30 Source: patient, RN notes reviewed and old records reviewed Mode of arrival: EMS Limitations: no limitations History of Present Illness ED Provider: Bennett HPI narrative: 64-year-old male past medical history significant for chronic kidney disease, alcohol use disorder, venous stasis ulcers, hypertension, chronic anemia presents for evaluation of diarrhea and vomiting. Patient reports that he has a history of colitis but is unsure of what type of colitis. He thinks it may be ulcerative colitis but he is not on treatment for ulcerative colitis. He reports that he had some alcohol drink on Saturday reports in his last drink was in fact on Saturday He started with nausea vomiting and diarrhea leading up until today. He still complains of diarrhea but the nausea and vomiting has resolved Complains of some lower abdominal pain Denies any fevers, chills, cough. The patient reports weakness in his use a walker at baseline pain He has been able to use his walker to get around but has been resting frequently He denies any chest pain He reports he has been incontinent of stool due to the amount of diarrhea he has been having He has not been any antibiotics recently pain Denies any recent travel or sick contacts Related Data Home Medications ?Medication ?Instructions ?Recorded ?Confirmed rosuvastatin 5 mg tablet 5 mg PO BEDTIME 08/26/23 01/22/25 allopurinol 300 mg tablet 300 mg PO DAILY 07/29/24 01/22/25 ascorbate calcium (vitamin C) 500 500 mg PO BID 07/29/24 01/22/25 mg tablet calcium 250 mg (as 1 tab PO TID 10/16/24 01/22/25 carbonate)-vitamin D3 3.125 mcg (125 unit) tablet (Oyster Shell Calcium-Vitamin D3) cholecalciferol (vitamin D3) 50 50 mcg PO DAILY 10/16/24 01/22/25 mcg (2,000 unit) tablet (Vitamin D3) ferrous sulfate 325 mg (65 mg 325 mg PO DAILY 10/16/24 01/22/25 iron) tablet,delayed release askorkfymaoj-osryhpwr-yibn 1 tab PO DAILY 10/16/24 01/22/25 fumarate 7.5 mg-folic acid 400 mcg tablet pyridoxine (vitamin B6) 50 mg 50 mg PO DAILY 10/16/24 01/22/25 tablet (Vitamin B-6) thiamine HCl (vitamin B1) 100 mg 100 mg PO DAILY 10/16/24 01/22/25 tablet (Vitamin B-1) acetaminophen 325 mg tablet 650 mg PO Q4H PRN Pain (Scale 01/22/25 01/22/25 Score 4-6) metoprolol succinate 25 mg 25 mg PO DAILY 01/22/25 01/22/25 tablet,extended release 24 hr Previous Rx's ?Medication ?Instructions ?Recorded magnesium oxide 400 mg (241.3 mg 400 mg PO DAILY #10 tabs 04/25/23 magnesium) tablet folic acid 1 mg tablet 1 mg PO DAILY #30 tabs 10/01/23 doxycycline monohydrate 100 mg 100 mg PO BID #14 caps 01/24/25 capsule torsemide 20 mg tablet 20 mg PO Q OTHER DAY 90 days #45 02/05/25 tabs Allergies Allergy/AdvReac Type Severity Reaction Status Date / Time azithromycin (AZITHROMYCIN) Allergy Severe FACIAL Verified 06/01/25 16:13 SWELLING hydrochlorothiazide (HCTZ) Allergy Severe Facial Verified 06/01/25 16:13 Swelling Review of Systems Constitutional: Constitutional: Denies body ache(s), Denies chills, Denies fever(s), Denies frequent falls, Denies headache(s), Reports malaise and Reports weakness Eyes: Eyes: Denies blurry vision ENT: Denies dizziness and Denies headache(s) Cardiovascular: Cardiovascular: Denies chest pain and Denies dyspnea on exertion Respiratory: Respiratory: Denies cough and Denies dyspnea on exertion Gastrointestinal: Gastrointestinal: Reports abdominal pain, Denies melena, Denies hematochezia, Reports diarrhea, Reports loose stools, Reports nausea, Reports vomiting and Denies hematemesis Musculoskeletal: Musculoskeletal: Denies back pain Integumentary/Breasts: Skin/Breast: Denies rash Neurologic: Denies dizziness, Denies frequent falls, Denies headache(s) and Reports weakness Psychiatric: Psychiatric: Denies anxiety PMFSH Past Medical History Medical History Abdominal wall abscess at site of surgical wound CKD stage 3a, GFR 45-59 ml/min Colitis Renal mass Renal cell carcinoma Alcohol use disorder Hyperlipidemia Ascending aortic aneurysm Alcoholic steatohepatitis Seborrheic dermatitis DEBORAH (obstructive sleep apnea) History of rhabdomyolysis Hx of lower gastrointestinal bleeding Hx of sepsis History of DVT of lower extremity Chronic ulcer of leg Chronic venous stasis HTN (hypertension) Anemia Anemia Surgical History H/O partial nephrectomy Hx of colonoscopy Family History Family History Mother Dementia Maternal Grandmother Dementia Social History Social History Household Members: Family Household Members Other:: mother who has dementia Housing: House Housing Other:: 4 stairs to get into house. Pt lives in basement Do you presently have visiting nurse or other home services: Yes Alcohol intake: current Alcohol intake frequency: 0-2 drinks per day Alcohol type: beer Comment: pt refused socks Patient Tobacco Use Status: Never used Tobacco Smoked in Last 30 Days: No Use of substances other than those prescribed or required for medical reasons: No Advance Directives: Yes Advance Directives on File: Yes Advance Directives Date on File: 04/13/22 Do you have a plan to hurt others: No Plan service: No Current occupational status: disabled Physical Exam ED Vital Signs: Vital Signs - 24 hr 06/01/25 16:11 06/01/25 22:20 Temperature 98 F Pulse Rate 100 85 Respiratory Rate 18 14 Blood Pressure 169/73 H 145/70 H Pulse Oximetry 100 100 Oxygen Delivery Method Room Air Room Air BMI result Body Mass Index 33.4 Const General: healthy appearing, comfortable, no acute distress, alert and awake Nutritional Appearance: well nourished Orientation/consciousness: patient oriented x3 HENMT Head: Yes normocephalic and Yes atraumatic Eyes Eyelids: Yes eyelids normal Conjunctivae: conjunctivae normal Sclerae: sclerae normal Corneas: corneas normal Pupils: Equal, round and reactive pupils present EOM: EOMs intact bilaterally Neck Neck: Yes full ROM Resp Effort & Inspection: normal respiratory effort, able to speak in complete sentences and not labored Cardio Rate: regular rate Rhythm: regular rhythm GI Inspection: Yes distended Palpation (GI): Soft to palpation, not firm, nontender, no guarding and not rigid Skin General skin exam: no rashes or lesions noted and elasticity normal Neuro General: patient oriented x3 Cranial nerves: Yes Equal, round and reactive pupils present and Yes Bilaterally intact EOM present Cognition (Neuro): normal cognition Extrem Other: Moving all extremities well without any obvious deformities Course Course Course Narrative: This is a rapid medical exam performed by iVncent Chong NP: Additional HPI, ROS, PE not included below will be deferred to primary provider. Patient is a 64y/o M with pmhx of alcohol use disorder with history of withdrawl with seizures, CKD 3a, HTN, anemia presenting to the ED with complaint of nausea, vomiting and diarrhea since Saturday when he stopped drinking alcohol. Took his last edible on Saturday night. Has been incontinent of urine and stool. Plan: EKG, labs Reevaluation(s) Reevaluation #1: Patient's results largely unremarkable, his CT scan shows persistent mesenteric panniculitis which I discussed with him. He reports feeling much better after his fluids and treatment. He is not interested in detox. We will discharge the patient to follow up with his outpatient providers Time: 01:47 Medications Administered Discontinued Medications Generic Name Dose Route Start Last Admin Trade Name Ivanq PRN Reason Stop Dose Admin Lactated Ringer's 1,000 mls @ 999 mls/hr 06/01/25 21:17 06/01/25 23:26 Lr IV 06/01/25 22:17 Infused .Q1H1M STA Infusion Magnesium Sulfate/Dextrose 1 gm in 100 mls @ 300 mls/hr 06/01/25 21:17 06/01/25 23:26 Magnesium Sulfate/D5w IV 06/01/25 21:36 Infused ONCE ONE Infusion Iohexol 85 ml 06/01/25 22:17 06/01/25 22:19 Iohexol 350 Mg/Ml 100 Ml Infus..Btl IV 06/01/25 22:18 85 ml ONCE ONE Administration Magnesium Oxide 800 mg 06/01/25 23:23 06/02/25 00:31 Magnesium Oxide 400 Mg Tablet PO 06/01/25 23:24 800 mg ONCE ONE Administration Midazolam HCl 4 mg 06/01/25 21:17 06/01/25 22:02 Midazolam Hcl 2 Mg/2 Ml Vial IVPUSH 06/01/25 21:18 4 mg ONCE ONE Administration Medical Decision Making Medical Decision Making MDM Narrative: 64-year-old male with past medical history as above presents for evaluation of multiple complaints. His primary complaint is diarrhea, vomiting and weakness. He does have some mild abdominal discomfort. He has a history of alcohol use disorder and reports drinking heavily on Saturday. He states that that was his last drink, 4 days ago. His vital signs on arrival are significant for a mild hypertension, his pulses 100, he is afebrile. He has not Diaphoretic. He has mild abdominal distention on exam, no significant tenderness. I suspect that there is at least some component of alcohol withdrawal but he is not appear to be in severe alcohol withdrawal. His ethanol level was 11 and therefore I do not think he is being entirely truthful with his last drink being 4 days ago. His magnesium is low at 1.2. He does have a chronic history as this likely due to his alcohol use. He takes supplemental magnesium. We will treat with IV fluids, magnesium, dose of Versed IV we will get a CT scan of the abdomen pelvis to evaluate his abdominal pain and diarrhea. Concern for acute colitis versus diverticulitis Differential Diagnosis Differential Diagnoses: The differential diagnosis associated with the presentation includes Colitis Diverticulitis Alcoholic gastritis Dehydration Hypomagnesemia Bowel obstruction less likely Admission/Observation Consideration of admission/observation: Escalation of care including admission/observation considered Lab Data MDM Lab Attestation statement: I reviewed the patient's lab results. No leukocytosis. The patient has a chronic, stable anemia, likely due to alcohol use disorder. Similarly he has a slightly low platelet count of 132183. Sodium potassium within normal limits. His renal function is consistent with a baseline. Again noted is the hypomagnesemia. Lipase within normal limits 06/01/25 16:33 06/01/25 16:33 Labs: Lab Results 06/01/25 06/01/25 Range/Units 16:26 16:33 WBC 9.8 (4.8-10.8) X10*3/uL RBC 2.98 L (4.60-5.80) X10*6/uL Hgb 9.0 L (14.0-18.0) g/dl Hct 27.7 L (42.0-52.0) % MCV 93.0 (80.0-98.0) fL MCH 30.2 (27.0-33.0) pg MCHC 32.5 (31.0-36.0) g/dl RDW 16.6 H (11.0-16.0) % Plt Count 118 L D (160-400) X10*3/uL MPV 8.8 L (9.4-12.4) fL Immature Gran % (Auto) 0.7 H (0.0-0.4) % Neut % (Auto) 75.9 H (45-73) % Lymph % (Auto) 12.6 L (20-40) % [place] % (Auto) 9.8 (2-11) % Eos % (Auto) 0.4 (0-4) % Baso % (Auto) 0.6 (0-2) % Lymph # (Auto) 1.2 (1.2-4.9) X10*3/uL [place] # (Auto) 1.0 (0.1-1.2) X10*3/uL Eos # (Auto) 0.0 (0.0-0.4) X10*3/uL Baso # (Auto) 0.1 (0.0-0.2) X10*3/uL Abs Immat Gran (auto) 0.07 H (0.00-0.03) X10*3/uL Absolute Neuts (auto) 7.5 (2.0-8.3) x10*3/uL Absolute Nucleated RBC 0.000 (0.0-0.012) X10*3/uL Nucleated RBC % (auto) 0.0 (0.0-0.2) /100WBC PT 15.0 H (10.9-12.4) SEC INR 1.3 H (0.9-1.1) Sodium 141 (135-145) mmol/L Potassium 4.2 (3.3-5.1) mmol/L Chloride 104 (96-108) mmol/L Carbon Dioxide 24 (22-29) mmol/L Anion Gap 17 (12-20) BUN 18 H (9-16) mg/dL Creatinine 1.28 (0.5-1.4) mg/dL Estim Creat Clear Calc 65.4 Estimated GFR 57 Random Glucose 97 (60-115) mg/dL Calcium 9.3 (8.4-10.2) mg/dL Magnesium 1.3 L* (1.6-2.6) mg/dL Total Bilirubin 2.0 H (0.0-1.0) mg/dL AST 17 (5-37) U/L ALT < 6 (0-40) U/L Alkaline Phosphatase 106 (39-117) U/L Total Protein 7.8 (6.5-8.0) g/dL Albumin 4.1 (3.5-5.0) g/dL Lipase 12 (8-78) U/L Ethyl Alcohol 11 mg/dL COVID-19 (TORSTEN) Negative (Negative) COVID-19 Clin Com See Note Influenza Type A (NADIYA) Negative (Negative) Influenza Type B (NADIYA) Negative (Negative) Influenza A & B Note See Note Radiology Impression Discussion of test interpretation with radiology: I have reviewed the radiologist's reading. Radiologist Impression: Findings: The lung bases are clear. Gynecomastia. Unremarkable gallbladder and solid organs. No urolithiasis. Prior partial left lower pole renal nephrectomy. No bowel obstruction, pneumoperitoneum, or pneumatosis. Calcified coronary atherosclerotic disease. Mesenteric root peritoneal inflammatory changes. Mild calcified atherosclerotic disease of the abdominal aorta. Diverticulosis. The appendix is not identified. The prostate is within normal limits. Mild osteopenia. IMPRESSION: 1. Persistent Mesenteric root panniculitis 2. Diverticulosis. 3. Calcified coronary atherosclerotic disease. This document has been electronically signed by: Tobin Hein MD on 06/01/2025 23:08:58 Discharge Plan Discharge Clinical Impression: Alcohol abuse, Mesenteric panniculitis Patient Disposition: Home, Self-Care Instructions: Abuse of Alcohol (ED) Additional Instructions: Avoid excessive consumption of alcohol. You may continue to use Imodium for diarrhea. Hydrate well. Follow up with your primary doctor, return for new or worsening symptoms Prescriptions: No Action torsemide 20 mg tablet 20 mg PO Q OTHER DAY 90 Days Qty: 45 3RF magnesium oxide 400 mg (241.3 mg magnesium) tablet 400 mg PO DAILY Qty: 10 0RF rosuvastatin 5 mg Tablet 5 mg PO BEDTIME folic acid 1 mg tablet 1 mg PO DAILY Qty: 30 0RF acetaminophen 325 mg Tablet 650 mg PO Q4H PRN (Reason: Pain (Scale Score 4-6)) metoprolol succinate 25 mg Tablet Extended Release 24 Hr 25 mg PO DAILY doxycycline monohydrate 100 mg capsule 100 mg PO BID Qty: 14 0RF thiamine HCl (vitamin B1) [Vitamin B-1] 100 mg Tablet 100 mg PO DAILY pyridoxine (vitamin B6) [Vitamin B-6] 50 mg Tablet 50 mg PO DAILY calcium carbonate-vitamin D3 [Oyster Shell Calcium-Vit D3] 250 mg-3.125 mcg (125 unit) tablet 1 tab PO TID cholecalciferol (vitamin D3) [Vitamin D3] 50 mcg (2,000 unit) Tablet 50 mcg PO DAILY cdqowgod-lzb-yvem fum-folic ac 7.5 mg iron-400 mcg tablet 1 tab PO DAILY ferrous sulfate 325 mg (65 mg iron) Tablet,Delayed Release (Dr/Ec) 325 mg PO DAILY allopurinol 300 mg tablet 300 mg PO DAILY ascorbate calcium (vitamin C) 500 mg tablet 500 mg PO BID Print Language: Telugu
--- NOTE | 2025-06-01 16:13 | ECG_ITS ---
Test Reason : AUD Blood Pressure : */* mmHG Vent. Rate : 98 BPM Atrial Rate : 98 BPM P-R Int : 206 ms QRS Dur : 108 ms QT Int : 344 ms P-R-T Axes : 43 -49 110 degrees QTcB Int : 439 ms Sinus rhythm with occasional Premature ventricular complexes and Premature atrial complexes Left anterior fascicular block Nonspecific T wave abnormality Abnormal ECG When compared with ECG of 25-Apr-2025 06:35, Premature ventricular complexes are now Present Premature atrial complexes are now Present QRS duration has decreased Referred By: Cassandra Chong Electronically Signed By: Mike Nguyen
[2025-06-01 16:41] LABS: MANUAL DIFF FLAG NO
[2025-06-01 16:45] LABS: Hematocrit 27.7 % (42.0-52.0); Hemoglobin 9.0 g/dl (14.0-18.0); Imm Gran Abs Auto 0.07 X10*3/uL (0.00-0.03); Imm Gran Pct Auto 0.7 % (0.0-0.4); Lymphocytes Absolute Auto 1.2 X10*3/uL (1.2-4.9); Mean Corpuscular HGB Conc 32.5 g/dl (31.0-36.0); Mean Corpuscular Hemoglobin 30.2 pg (27.0-33.0); Mean Corpuscular Volume 93.0 fL (80.0-98.0); NRBC Abs Auto 0.000 X10*3/uL (0.0-0.012); NRBC Pct Auto 0.0 /100WBC (0.0-0.2); Platelet Count 118 X10*3/uL (160-400); Red Blood Count 2.98 X10*6/uL (4.60-5.80); White Blood Count 9.8 X10*3/uL (4.8-10.8)
[2025-06-01 16:50] LABS: INTERNATIONAL NORM RATIO 1.3 (0.9-1.1); Prothrombin Time 15.0 SEC (10.9-12.4)
[2025-06-01 17:00] LABS: COVID-19 Test Negative (Negative); IDNOW Serial# 58CA691E
[2025-06-01 17:03] LABS: IDNOW Serial# 55D5AD1C; Influenza B2 Negative (Negative)
[2025-06-01 17:08] LABS: Alanine Aminotransferase < 6 U/L (0-40); Albumin Level 4.1 g/dL (3.5-5.0); Alkaline Phosphatase 106 U/L (39-117); Anion Gap 17 (12-20); Aspartate Amino Transferase 17 U/L (5-37); Blood Urea Nitrogen 18 mg/dL (9-16); Calcium 9.3 mg/dL (8.4-10.2); Carbon Dioxide 24 mmol/L (22-29); Chloride 104 mmol/L (96-108); Creatinine Clr Calc Pharmacy 65.4; Estimated Glomerular Filt Rate 57; Magnesium 1.3 mg/dL (1.6-2.6); Potassium 4.2 mmol/L (3.3-5.1); Sodium 141 mmol/L (135-145); Total Protein 7.8 g/dL (6.5-8.0)
--- OUTSIDE RECORDS SUMMARY | 2025-06-01 20:46 | XMS_ITS | Encounter Summary ---
Author Organization [employer] Address [address] [place] [address] Care Team Providers Care Service Station Console Operator Name Role Phone Samantha Gonzales MD Primary Care Provider [phone] Gladis Mariee RN Unavailable [phone] Cecily Stern Unavailable Adis Cordero RN Unavailable [phone] Wenceslao Mariee Unavailable Reason for Referral * Imaging (Routine) - Closed Specialty Diagnoses / Procedures Referred By Mildred silva Referred To Contact Diagnoses Thyroid nodule Procedures US Guided Thyroid Biopsy Samantha Gonzales MD [address] [place] [address] Phone: tel: fax: [address] Phone: tel: fax: Referral ID Status Reason Start Date Expiration Date Visits Re quested Visits Authorized [id number] Closed 11/14/2022 05/13/2023 1 1 Encounter Details Date Type Department Care Team (Late st Contact Info) Description 11/14/2022 Orders Only [facility] [address] [place], [place] [phone] Samantha Gonzales MD [address] [place], [place] [phone] Thyroid nodule (Primary Dx) Social History Tobacco [...] goiter documented in this encounter Care Teams Service Station Console Operator Relationship Specialty Start Date End Date Samantha Gonzales MD [address] [place] [id number] PCP - General Family Medicine 07/09/13 Gladis Mariee, ROSALINDA [address] [place] [address] Registered Nurse Family Medicine 04/26/25 05/17/25 Cecily Stern 05/10/25 05/17/25 Adis Cordero, ROSALINDA [address] [place] [address] Registered Nurse Family Medicine 05/17/25 Wenceslao Mariee 05/17/25 [facility] 05/17/24 03/29/25 [employer] 05/19/25 documented as of this encounter
--- OUTSIDE RECORDS SUMMARY | 2025-06-01 20:46 | XMS_ITS | Clinical Summary ---
Author Organization [facility] Address [address] [place] [address] Phone Care Team Providers Care Auto Specialty Services Manager Name Role Phone Samantha Gonzales MD Primary Care Provider [phone] Allergies Active Allergy Reactions Criticality Noted Date [...] x 2 during 1st hospitalization in [facility] in Sep 2022 -Continue follow-up with transverse abdominal muscle surgeon Other dietary vitamin B12 deficiency anemia 09/20 [...] GSV ablation in Aug 2018 -following with [facility] wound care clinic, periodically when he has open wounds. -Last seen by [facility] Wound care in October [...] Plan: -multifactorial - nutritional, CKD -following with [facility] transverse abdominal muscle surgeon Aneurysm of ascending aorta 05/29/2016 Overview (11/07/2022): Last Assessment & Plan: -Most recent echo on 04/12/21, EF 60-65%, dilated ascending aorta 41mm -Echo on 04/05/20, EF 55-60%, dilated ascending aorta 42 mm, -Echo on 04/01/19 EF 60-65%, Aortic root dimension 37~43mm -Seen by his airplane charter clerk, Dr. Claudio on n 07/11/22 -Pt advised [...] complete this topic Insurance Medicaid [place] Medicaid [place] Care Teams Auto Specialty Services Manager Relationship Specialty Start Date End Date Samantha Gonzales MD PCP - General 08/29/20
--- OUTSIDE RECORDS SUMMARY | 2025-06-01 20:46 | XMS_ITS | Encounter Summary ---
Author Organization [employer] Address 75 [facility] 7t [place] [address] Care Team Providers Care Dental Technologist Name Role Phone Samantha Gonzales MD Primary Care Provider [phone] Adis Cordero RN Unavailable [phone] Wenceslao Mariee Unavailable Reason for Visit * Reason Onset Date Comments Care Coordination 05/26/2025 Encounter Details Date Type Department Care Team ([facility] st Contact Info) Description 05/26/2025 Telephone [facility] [address] [place], [place] [phone] Samantha Gonzales MD [address] [place], [place] [phone] Care Coordination Social History Tobacco Use Types Packs/Day Years [...] Telephone Encounter - Marcella Wong RN - 05/31/2025 1:14 PM EDT TC placed to the pt and LVM to call back the office in regard to scheduling a sick onsite with PCP.Will route this message to to reach out to the pt and request he come to the Green Team Line Patrolman after 06/01 appointment * Telephone Encounter - Karyn Patel RN - 05/27/2025 1:51 PM EDT Called pt to discuss message below from PCP Dr Gonzales. No answer, left voicemail to call back C and ask for green team nurses. * Telephone Encounter - Karyn Patel RN - 05/26/2025 4:23 PM EDT Received notice in office from BARRIE Reyes RN that pt went to ED last night after fall due to alcohol intoxication, was discharged this AM before RN visited home. Printed ED note to upload to chart.Will send to PCP. documented in this encounter Plan of Treatment Not on file documented as of this encounter Visit Diagnoses Not on filedocumented in this encounter Additional Health Concerns Assessment Noted Time PHQ-9 Depression Total Score: 0 06/25/20 24 11:09 AM EST documented as of this encounter Care Teams Dental Technologist Relationship Specialty Start Date End Date Samantha Gonzales MD [address] [place] [address] PCP - General Family Medicine 07/09/13 Adis Cordero RN [address] [place] [address] Registered Nurse Family Medicine 05/17/25 Wenceslao Mariee 05/17/25 [employer]ulate 05/19/25 documented as of this encounter
--- OUTSIDE RECORDS SUMMARY | 2025-06-01 20:46 | XMS_ITS | Encounter Summary ---
Author Organization [facility] Address [address] [place] [address] Phone Care Team Providers Care Narrow Fabric Calenderer Name Role Phone Vito Mkai MD Primary Care Provider [phone] Encounter Details Date Type Department Care Team (Late st Contact Info) Description 01/29/2022 Transcribe Orders [facility] [address] [place] [address] Vito Maki MD [address], [address], [address] [place] [address] [email or web address] Diagnosis unknown (Primary Dx) Social History [...] EDT) WBC 10.18 4.00 - 11.00 K/uL [facility] RBC 3.91 3.90 - 5.69 M/uL [facility] HGB 9.1(L) 12.4 - 17.3 g/dL [facility] HCT 30.6(L) 37.0 - 51.0 % [facility] PLT 302 140 - 430 K/uL [facility] MCV 78.3 78.0 - 97.0 fL [facility] MCH 23.3(L) 25.0 - 33.0 pg [facility] MCHC 29.7(L) 32.0 - 36.0 g/dL [facility] RDW 16.7(H) 11.0 - 15.0 % [facility] MPV 9.4 8.4 - 12.8 fl [facility] NRBC 0.00 0 /100 WBCs [facility] ABSOLUTE NRBC 0.00 0 K/uL [facility] Blood 01/29/2022 7:00 AM EDT 01/29/2022 4:20 PM EDT us Vito Maki MD LAB BLOOD ORDERABLES Final Resul t [facility] [address] [place] [address] * (ABNORMAL) Comprehensive metabolic panel (01/29/2022 7:00 AM EDT) SODIUM 139 133 - 146 mmol/L [facility] POTASSIUM 3.7 3.3 - 5.1 mmol/L [facility] Comment:Specimen slightly he molyzed, result may be falsely elevated. CHLORIDE 95(L) 96 - 108 mmol/L [facility] CO2 26 21 - 35 mmol/L [facility] BUN 42(H) 6 - 19 mg/dL [facility] CREATININE 1.20 0.5 - 1.5 mg/dL [facility] GLUCOSE 110(H) 70 - 99 mg/dL [facility] ALBUMIN 3.8(L) 3.9 - 4.8 g/dL [facility] TOTAL PROTEIN 7.2 6.5 - 8.0 g/dL [facility] CALCIUM 9.3 8.4 - 10.3 mg/dL [facility] ALKALINE PHOSPHATASE 120(H) 39 - 117 U/L [facility] TOTAL BILIRUBIN 0.6 0.0 - 1.2 mg/dL [facility] AST 21 0 - 37 U/L [facility] ALT 11 0 - 40 U/L [facility] GLOBULIN 3.4 1 - 4.8 g/dL [facility] EGFR 69 >59 mL/min/1.7 3m2 [facility] Comment:Estimated glomerular filtration rate calculated using the CKD-EPI refit equation. ANION GAP 22(H) 10 - 20 mmol/L [facility] Blood 01/29/2022 7:00 AM EDT 01/29/2022 4:20 PM EDT us Vito Maki MD LAB BLOOD ORDERABLES Final Resul t [address] [address] documented in this encounter Visit Diagnoses Diagnosis Diagnosis unknown- Primary documented in this encounter Care Teams Narrow Fabric Calenderer Relationship Specialty Start Date End Date Vito Maki MD [email or web address] PCP - General Family Medicine 01/29/22 documented as of this encounter Additional Source Comments The information contained in this document represents components of the legal health record. It is not the complete legal health record.[facility]
--- OUTSIDE RECORDS SUMMARY | 2025-06-01 20:46 | XMS_ITS ---
Author Organization [employer] Address 75 [facility] 7t [place] [address] Care Team Providers Care Barrel Drum Cutter Name Role Phone Samantha Gonzales MD Primary Care Provider [phone] Adis Cordero RN Unavailable [phone] Wenceslao Mariee Unavailable [facility] Status:Outreach In Progress (Enrolling) Start date:05/10/2025 Enrollment reason:ADT Feed Overview ADT- [facility] ED 04/25/25. Please outreach for enrollment. Case Team Name Relationship Phone Wenceslao Mariee(Responsible Staff) [phone] Continued Care and Services Coordination
--- OUTSIDE RECORDS SUMMARY | 2025-06-01 20:46 | XMS_ITS | Encounter Summary ---
Author Organization [employer] Address [address] [facility] 7t [place] [address] Care Team Providers Care Agriculture Extension Specialist Name Role Phone Samantha Gonzales MD Primary Care Provider [phone] Adis Cordero RN Unavailable [phone] Wenceslao Mariee Unavailable Reason for Visit * Reason Onset Date Comments Triage 06/01/2025 Encounter Details Date Type Department Care Team ([facility] st Contact Info) Description 06/01/2025 Telephone [facility]INE 230 [place], [place] [phone] Samantha Gonzales MD [address] [place], [place] [phone] Triage Social History Tobacco Use Types Packs/Day [...] or on edge 1 06/01/2025 1:46 PM EDT Oliverio Casillas Not being able to stop or control worrying 1 06/01/2025 1:46 PM PRISCILLAT Oliverio Casillas Worrying too much about different things 1 06/01/2025 1:46 PM PRISCILLAT Oliverio Casillas Trouble relaxing 1 06/01/2025 1:46 PM EDT Oliverio Shah Being so restless that it is hard to sit still 0 06/01/2025 1:46 PM PRISCILLAT Oliverio Casillas Becoming easily annoyed or irritable 1 06/01/2025 1:46 PM EDT Oliverio Casillas Feeling afraid as if something awful might happen 0 06/01/2025 1:46 PM EDT Oliverio Donaldson MILO-7 Total Score 5 06/01/2025 1:46 PM EDT Oliverio Casillas documented as of this encounter Miscellaneous Notes * Telephone Encounter - Beti Hartmann RN - 06/01/2025 2:45 PM EDT Patient presented to [facility] team for consult with Oliverio. After completion of consult, Oliverio notified this RN of patient feeling weak and experiencing vomiting and diarrhea x4 days. RN evaluated the patient who reports he has had diarrhea and vomiting since Saturday. Patient reportshe has only had water and electrolytes except Saturday he had a protein bar. Patient currently using a diaper d/t diarrhea. Patient denies any known sick contacts with similar s/s; reports he takes care of his 80 yo mother who has had a cough however they usually keep 10ft of distance. Patient reports he lives in the basement and his mother lives upstairs. Patient reports weakness and feels lightheaded. Patient reports he has known vertigo, tinnitus and L cataract. Patient reports last vomiting episode was yesterday afternoon. Patient with visible shakiness, presented with a walker to appointment however RN transported patient to [facility] by wheelchair for safety. RN requested [place] assistance to transport patients walker to [facility] as well. Patient reports he needs to be seen by 4pm d/t bus schedule. Patient is not willing to go to the ED d/t needing to take care of his mother. RN advised patientRN cannot guarantee provider will not recommend ED based on their evaluation. Patient verbalized und erstanding. documented in this encounter Plan of Treatment Not on file documented as of this encounter Visit Diagnoses Not on filedocumented in this encounter Additional Health Concerns Assessment Noted Time PHQ-9 Depression Total Score: 9 06/01/20 25 1:46 PM EDT documented as of this encounter Care Teams Agriculture Extension Specialist Relationship Specialty Start Date End Date Samantha Gonzales MD [address] [place] [address] PCP - General Family Medicine 07/09/13 Adis Cordero, RN [address] [place] [address] Registered Nurse Family Medicine 05/17/25 Wenceslao Mariee 05/17/25 [employer] 05/19/25 documented as of this encounter
--- OUTSIDE RECORDS SUMMARY | 2025-06-01 20:46 | XMS_ITS | Encounter Summary ---
Author Organization [employer] Address 75 [facility] 7t [place] [address] Care Team Providers Care Marker Maker Name Role Phone Samantha Gonzales MD Primary Care Provider [phone] Gladis Mariee RN Unavailable [phone] Cecily Stern Unavailable Adis Cordero RN Unavailable [phone] Wenceslao Mariee Unavailable Encounter Details Date Type Department Care Team (Late st Contact Info) Description 01/29/2023 Orders Only [facility] MED[facility]INE [address] [place], [place] [phone] Samantha Gonzales MD [address] [place], [place] [phone] Hypomagnesemia (Primary Dx) Social History Tobacco Use [...] documented as of this encounter Care Teams Marker Maker Relationship Specialty Start Date End Date Samantha Gonzales MD [address] [place] [address] PCP - General Family Medicine 07/09/13 Gladis Mariee RN [address] [place] [address] Registered Nurse Family Medicine 04/26/25 05/17/25 Cecily Stern 05/10/25 05/17/25 Adis Cordero, ROSALINDA [address] [place] [address] Registered Nurse Family Medicine 05/17/25 Wenceslao Mariee 05/17/25 [facility] 05/17/24 03/29/25 [employer] 05/19/25 documented as of this encounter
--- OUTSIDE RECORDS SUMMARY | 2025-06-01 20:46 | XMS_ITS | Encounter Summary ---
Author Organization [employer] Address 75 [facility] 7t [place] [address] Care Team Providers Care Application Manager Name Role Phone Samantha Gonzales MD Primary Care Provider [phone] Gladis Mariee RN Unavailable [phone] Cecily Stern Unavailable Adis Cordero RN Unavailable [phone] Wenceslao Mariee Unavailable Encounter Details Date Type Department Care Team (Late st Contact Info) Description 12/17/2022 Abstract [facility] 230 [place], [place] [phone] Zee Szymanski MD 230 [place], [place] [phone] Social History Tobacco Use Types Packs/Day Years [...] documented as of this encounter Care Teams Application Manager Relationship Specialty Start Date End Date Samantha Gonzales MD [address] [place] [address] PCP - General Family Medicine 07/09/13 Gladis Mariee, ROSALINDA [address] [place] [address] Registered Nurse Family Medicine 04/26/25 05/17/25 Cecily Stern 05/10/25 05/17/25 Adis Cordero, ROSALINDA [address] [place] [address] Registered Nurse Family Medicine 05/17/25 Wenceslao Mariee 05/17/25 [facility] 05/17/24 03/29/25 [employer] 05/19/25 documented as of this encounter
--- OUTSIDE RECORDS SUMMARY | 2025-06-01 20:46 | XMS_ITS | Encounter Summary ---
Author Organization [employer] Address [address] [place] [address] 7t [place] [address] Care Team Providers Care Truck Driver Teamster Name Role Phone Samantha Gonzales MD Primary Care Provider Gladis Mariee RN Unavailable [phone] Cecily Stern Unavailable Adis Cordero RN Unavailable [phone] Wenceslao Mariee Unavailable Reason for Referral * Imaging (Routine) - Authorized Specialty Diagnoses / Procedures Referred By Contac t Referred To Contact Cardiology Diagnoses Elevated brain natriuretic peptide (BNP) level Essential hypertension Procedures Transthoracic Echo (TTE) Complete Brianna Covington ANP [address] [place] [address] Phone: tel: fax: [address] Phone: tel: fax: Referral ID Status Reason Start Date Expiration Date Visits Requested Visits Authorized [id number] Authorized Perform Procedure 04/30/2025 04/30/2026 1 1 Encounter Details Date Type Department Care Team (Late st Contact Info) Description 04/30/2025 Results Follow-Up [facility] [address] [place] [address] Brianna Covington ANP [address] [place] [address] Hepatic Function Panel, B Type Natriuretic Peptide [...] pt he is aware of referral to [facility] Cardiology by Dr. Gonzales documented in this [...] documented as of this encounter Care Teams Truck Driver Teamster Relationship Specialty Start Date End Date Samantha Gonzales MD [address] [place] [address] PCP - General Family Medicine 07/09/13 Gladis Mariee, ROSALINDA [address] [place] [address] Registered Nurse Family Medicine 04/26/25 05/17/25 Cecily Stern 05/10/25 05/17/25 Adis Cordero, ROSALINDA [address] [place] [address] Registered Nurse Family Medicine 05/17/25 Wenceslao Mariee 05/17/25 [employer] 05/19/25 documented as of this encounter
--- OUTSIDE RECORDS SUMMARY | 2025-06-01 20:46 | XMS_ITS | Clinical Summary ---
Author Organization [facility] Address [address] [place] [address] [place] [address] Phone Care Team Providers Care Break Up Worker Name Role Phone Vito Maki MD Primary Care Provider [phone] Social History Tobacco Use Types Packs/Day Years [...] file Medical Devices Not on file Insurance [facility] [employer] C3 ACO C3 ACO C3 ACO C[place] [id number] [place] [address] [employer] [place] [place] [address] [place] [address] [facility] [place] [id number] [facility] C3 ACO Care Teams Break Up Worker Relationship Specialty Start Date End Date Vito Maki MD [email or web address] PCP - General Family Medicine 01/29/22 Additional Source Comments The information contained in this document represents components of the legal health record. It is not the complete legal health record.[facility]
--- OUTSIDE RECORDS SUMMARY | 2025-06-01 20:46 | XMS_ITS | Encounter Summary ---
Author Organization [employer] Address [address] [facility] [address] 7t [place] [address] Care Team Providers Care Flare Worker Name Role Phone Samantha Gonzales MD Primary Care Provider Gladis Mariee RN Unavailable [phone] Cecily Stern Unavailable Adis Cordero RN Unavailable [phone] Wenceslao Mariee Unavailable Reason for Visit * Reason Onset Date Comments Appointment Request 01/12/2025 Encounter Details Date Type Department Care Team (Late st Contact Info) Description 01/12/2025 Telephone [facility] MED[facility]INE [address] [place], [place] [phone] Samantha Gonzales MD 230 [place], [place] [phone] Appointment Request Social History Tobacco Use Types [...] [facility] to [facility] Please return call to reschedule 01/12 appointment [phone] documented in this encounter Plan of Treatment Not on file documented as of this encounter Visit Diagnoses Not on filedocumented in this encounter Additional Health Concerns Assessment Noted Time PHQ-9 Depression Total Score: 0 06/25/20 24 11:09 AM EST documented as of this encounter Care Teams Flare Worker Relationship Specialty Start Date End Date Samantha Gonzales MD [address] [place] [address] PCP - General Family Medicine 07/09/13 Gladis Mariee, ROSALINDA [address] [place] [address] Registered Nurse Family Medicine 04/26/25 05/17/25 Cecily Stern 05/10/25 05/17/25 Adis Cordero, ROSALINDA [address] [place] [address] Registered Nurse Family Medicine 05/17/25 Wenceslao Mariee 05/17/25 [facility] 05/17/24 03/29/25 [employer] 05/19/25 documented as of this encounter
--- OUTSIDE RECORDS SUMMARY | 2025-06-01 20:46 | XMS_ITS | Encounter Summary ---
Author Organization [employer] Address 75 [facility] 7t [place] [address] Care Team Providers Care Occupational Health Professional Name Role Phone Samantha Gonzales MD Primary Care Provider [phone] Gladis Mariee RN Unavailable [phone] Cecily Stern Unavailable Adis Cordero RN Unavailable [phone] Wenceslao Mariee Unavailable Reason for Referral * Consultation (Routine) - Authorized Specialty Diagnoses / Procedures Referred By Contlarissa silva Referred To Contact Podiatry Diagnoses Foot lesion Venous stasis Samantha Gonzales MD [address] [place] [address] Phone: tel: fax: Jerardo Brooks DPM [address] [place] [address] Phone: tel: fax: Referral ID Status Reason Start Date Expiration Date Visits Requested Visits Authorized [id number] Authorized Specialty Services Required 04/27/2025 04/27/2026 6 6 Encounter Details Date Type Department Care Team (Late st Contact Info) Description 04/27/2025 Orders Only [facility] MEDICINE [address] [place], [place] [phone] Samantha Gonzales MD [address] [place], [place] [phone] Foot lesion (Primary Dx); Venous stasis Social [...] documented as of this encounter Care Teams Occupational Health Professional Relationship Specialty Start Date End Date Samantha Gonzales MD [address] [place] [address] PCP - General Family Medicine 07/09/13 Gladis Mariee, ROSALINDA [address] [place] [address] Registered Nurse Family Medicine 04/26/25 05/17/25 Cecily Stern 05/10/25 05/17/25 Adis Cordero, ROSALINDA [address] [place] [address] Registered Nurse Family Medicine 05/17/25 Wenceslao Mariee 05/17/25 [employer] 05/19/25 documented as of this encounter
--- OUTSIDE RECORDS SUMMARY | 2025-06-01 20:46 | XMS_ITS | Encounter Summary ---
Author Organization [employer] Address 75 [facility] 7t [place] [address] Care Team Providers Care Classifier Name Role Phone Samantha Gonzales MD Primary Care Provider [phone] Gladis Mariee RN Unavailable [phone] Cecily Stern Unavailable Adis Cordero RN Unavailable [phone] Wenceslao Mariee Unavailable Reason for Referral * Consultation (Routine) - Canceled Specialty Diagnoses / Procedures Referred By Contac t Referred To Contact Pharmacy Diagnoses Essential hypertension Samantha Gonzales MD [address] [place] [address] Phone: tel: fax: Referral ID Status Reason Start Date Expiration Date V isits Requested Visits Authorized [id number] Canceled Consult and Treat 01/29/2025 01/29/2026 6 6 * Consultation (Routine) - Pending Review Specialty Diagnoses / Procedures Referred By Contac t Referred To Contact Pharmacy Diagnoses Essential hypertension Renal cell cancer, left (CMS/HCC) (HCC) Samantha Gonzales MD [address] [place] [address] Phone: tel: fax: Referral ID Status Reason Start Date Expiration Date Visits Requested Visits Authorized [id number] Pending Review Continuity of Care 01/29/2025 01/29/2026 6 6 * Consultation (Routine) - Authorized Specialty Diagnoses / Procedures Referred By Contac t Referred To Contact Wound Care Diagnoses Open wound of lower leg, unspecified laterality, initial encounter Chronic venous stasis Samantha Gonzales MD [address] [place] [address] Phone: tel: fax: [facility] [address] [place] [address] Phone: tel: fax: Referral ID Status Reason Start Date Expiration Date Visits Requested Visits Authorized [id number] Authorized Specialty Services Required 01/18/2025 01/18/2026 12 12 Encounter Details Date Type Department Care Team (Late st Contact Info) Description 01/17/2025 Orders Only [facility]INE [address] [place] [address] Samantha Gonzales MD [address] [place] [address] Open wound of lower leg, unspecified laterality, [...] your housing situation today? I have neel badlilo 01/12/[address] you li [...] PM EDT Narrative 01/22/2025 4:43 PM EDT [address] [address] XRay Report Signed Patient: Mohan Gonzalez MR#: [id number] : 1960 Acct:[id number] Age/Sex: 64 / M ADM Date: 01/22/25 Loc: .ED Attending Dr: Ordering Physician: Annie Huber DO Date of Service: 01/22/25 Procedure(s): XR chest 1V Accession Number(s): [id number] cc: Annie Huber DO; Samantha Gonzales MD [...] 01/22/25 1641 DD/ 1519 TD/TT: 01/22/25 1620 Business Process Consultant: Procedure Note Donotuseinterpreter, Image - 01/22/[address] [address] XRay Report Signed Patient: Mohan Gonzalez AMR#: [id number] : [id number]:[id number] Age/Sex: 64 / MADM Date: 01/22/25 Loc: .ED Attending Dr: Ordering Physician: Annie Huber DO Date of Service: 01/22/25 Procedure(s): XR chest 1V Accession Number(s): [id number] cc: Annie Huber DO; Samantha Gonzales MD [...] 01/22/25 1641 DD/ 1519 TD/TT: 01/22/25 1620 Business Process Consultant: [facility] External Provider IMG XR PROCEDURES Final [...] documented as of this encounter Care Teams Classifier Relationship Specialty Start Date End Date Samantha Gonzales MD [address] [place] [address] PCP - General Family Medicine 07/09/13 Gladis Mariee RN [address] [place] [address] Registered Nurse Family Medicine 04/26/25 05/17/25 Cecily Stern 05/10/25 05/17/25 Adis Cordero, ROSALINDA [address] [place] [address] Registered Nurse Family Medicine 05/17/25 Wenceslao Mariee 05/17/25 [facility] 05/17/24 03/29/25 [employer] 05/19/25 documented as of this encounter
--- OUTSIDE RECORDS SUMMARY | 2025-06-01 20:46 | XMS_ITS | Data Portability ---
Author Organization [facility] trinket [facility], Main Office Address [address], [address] [place] [address] Care Team Providers Care Make Up Operator Name Role Phone [facility] OTHER RAJ GUTIERREZ Primary Care Provider Assessment No assessment recorded. Plan of Treatment Reminders Order Date Submit Date Provider Last Modified By Organization Details Last Modified Time Details Appointments None record ed. Lab None record ed. Referral None record ed. Procedures None record ed. Surgeries None record ed. Imaging None record ed. Medication Orders None record ed. Patient TargetsNo targets recorded. Patient Instructions Encounter Date Encounter Id Patient Instructions Last Modified By Organization Details Last Modified Time 01/29/2022 [id number] Dispo -- home with services when rehab goals are met, likely 7-10 days Need additional records and diagnostic results from [facility] -order written to request records Total kip-clzw-rd-face time spent reviewing available records on 01/28/22 was 35 minutes. [email or web address] Not available 01/31/2022 19:11:48 Reason for Referral None Reported. Problems Name Problem SNOMED Code Status Onset Date Resolution Date Notes Provider Name and Address Organization Details Recorded Time Anemia 882132051 Active 2021 VARSHA JIMENEZ PA-C [address], [address], [place], [address], [facility] [employer] 2 18:59:17 Morbid obesity 859371628 Active 2021 VARSHA JIMENEZ PA-C [address], [address], [place], [address], [facility] [employer] 2 18:59:28 Essential hypertension 70054337 Active 2021 VARSHA JIMENEZ PA-C [address], [address], [place], [address], [facility] trinket [facility] 2 18:59:37 Dyslipidemia 359401686 Active 2021 VARSHA JIMENEZALEJANDRO [address], [address], [place], [address], [facility] [employer] [facility] 2 18:59:57 Stasis dermatitis of lower limb due to chronic peripheral venous hypertension 717637792 Active 2021 VARSHA ALEJANDRO JIMENEZ [address], [address], [place], [address], [facility] trinket [facility] 2 19:00:39 Gout 71141373 Active 2021 VARSHA ALEJANDRO JIMENEZ [address], [address], [place], [address], [facility] tr[employer]et [facility] 2 19:00:49 Congestive heart failure 74828020 Active 2021 VARSHA JIMENEZ PA-C [address], [address], [place], [address], [facility] 2 19:00:59 Hypomagnesemia 965295512 Active 2021 VARSHASA TONY PA-C [address], [address], [place], [address], [facility] [employer] [facility] 2 19:01:07 Alcohol dependence 21414906 Active 2021 VARSHASA TONY PA-C [address], [address], [place], [address], [facility] [facility] 2 19:01:15 Obstructive sleep apnea syndrome 10601901 Active 2021 VARSHA ALEJANDRO JIMENEZ [address], [address], [place], [address], [facility] [employer] [facility] 2 19:01:32 Problem Notes None recorded. Medical Equipment None Reported. Allergies Allergen ID Allergen Name Allergen Category Reaction Reaction Severity Criticality Documentation Date Start Date Code Code System Note Provider Name and Address Organization Details Recorded Time 05764 azithromy kendall medicatio n Not available Not available Not available 01/29/2022 65378 RxNorm facia l swell ing VARSHA JIMENEZ PA-C [address], [address], [place], [address], [email or web address] 2 14:23:35 21172 hydrochlo rothiazid e medicatio n Not available Not available Not available 01/29/2022 5487 RxNorm unk VARSHA JIMENEZ PA-C [address], [address], [place], [address], [email or web address] 2 14:23:44 Vitals Date Recorded Body weight Body temperature Oxygen saturation Oxygen saturation in Arterial blood by Pulse oximetry Respiratory rate Heart rate Systolic And Diastolic Provider Name and Address Organization Details Last Updated DateTime 2 578784. 22 g 97.1 [degF] 97 % 97 % 18 /min 90 /min 108/59 mm[Hg] VARSHA JIMENEZ PA-C [address], [address], [place], [address], [email or web address] 2 13:44:51 Date Recorded Body weight Body mass index (BMI) Body height Heart rate Respiratory rate Body temperature Oxygen saturation Oxygen saturation in Arterial blood by Pulse oximetry Systolic And Diastolic Provider Name and Address Organization Details Last Updated DateTime 2 522264. 22 g 42.3 kg/m2 170.18 cm 74 /min 18 /min 97.3 [degF] 96 % 96 % 118/63 mm[Hg] Neha Sousa MD [address], [address], [place], [address], [email or web address] 2 23:37:57 Social History Question Answer Notes LastModified by Organizat ion Details LastModified Time Tobacco Smoking Status Never Smoker VARSHA JIMENEZ PA-C [address], [address], [place], [address], [email or web address] 01/31/2022 19:03:03 Do You Have An Advance Directive? Yes Full Code; Ok For Dialysis; Undecided Re: Artificial Nutrition; Ok For Artificial Hydration Information not available 01/29/2022 What Is Your Code Status? Full Code [email or web address] Information not available 01/31/2022 Legal Guardian? 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 No Information not available 01/31/2022 What Was The Date Of Your Most Recent Tobacco Screening? 01/29/2022 [email or web address] Information not available 01/31/2022 Do You Have An Out Of Hospital DNR? No [email or web address] Information not available 01/31/2022 Have You Ever Been Counseled For Unhealthy Alcohol Use? Yes Information not available 01/31/2022 Has Tobacco Cessation Counseling Been Provided? No N/A [email or web address] Information not available 01/31/2022 Sex: Unknown Functional Status Question Answer Note LastModified by Organizat ion Details LastModified Time How many times per week do you consume alcohol? 5-7 times per week [email or web address] Information not available 01/31/2022 Do you use any illicit or recreational drugs? No [email or web address] Information not available 01/31/2022 Do you or have you ever used any other forms of tobacco or nicotine? No [email or web address] Information not available 01/31/2022 What is your level of alcohol consumption? Heavy [email or web address] Information not available 01/31/2022 Mental Status None recorded. Family History Relationship Description Onset Age of this Age Resolved Age Notes LastModified by Organization Details LastModified Time Mother Essential hypertension [email or web address] Not available 19:02:17 Medical History No medical history recorded. Immunizations Vaccine Type Date Status Note Provider Nam e and Address Organization Details Recorded Time Influenza, split virus, quadrivalent, preservative 1 completed VARSHA JIMENEZ PA-C [address], [address], [place], [address], [facility] 01/29/2022 13:46:15 pneumococcal polysaccharide PPV23 4 completed VARSHA JIMENEZ PA-C [address], [address], [place], [address], [facility] 01/29/2022 13:46:25 COVID-19, mRNA, LNP-S, PF, 100 mcg/0.5mL dose or 50 mcg/0.25mL dose 1 completed VARSHA JIMENEZ PA-C [address], [address], [place], [address], [facility] 01/29/2022 13:46:42 COVID-19, mRNA, LNP-S, PF, 100 mcg/0.5mL dose or 50 mcg/0.25mL dose 1 completed VARSHA JIMENEZ PA-C [address], [address], [place], [address], [facility] 01/29/2022 13:46:48 COVID-19, mRNA, LNP-S, PF, 100 mcg/0.5mL dose or 50 mcg/0.25mL dose 1 completed VARSHA JIMENEZ PA-C [address], [address], [place], [address], [facility] 01/29/2022 13:46:53 Influenza, adjuvanted, quadrivalent, PF 2 [facility]/07[facility]2024 13:26:51 Influenza, adjuvanted, quadrivalent, PF 3 completed Urmila ballesteros, [facility] 01/07/2024 13:27:05 COVID-19, mRNA, LNP-S, bivalent, PF, 30 mcg/0.3 mL dose 2 completed Urmila [facility] 01/07/2024 13:27:27 COVID-19, mRNA, LNP-S, PF, marcelino-sucrose, 30 mcg/0.3 mL 3 completed Urmila [facility] 01/07/2024 13:27:38 Pneumococcal conjugate PCV20, polysaccharide [id number] conjugate, adjuvant, PF 3 completed [facility] 01/07/2024 13:27:56 Tdap 2 completed [facility] 01/07/2024 13:28:09 Past Encounters Encounter ID Performer Location Encounter Start Date Encounter Closed Date Diagnosis/Indication Diagnosis SNOMED-CT Code Diagnosis ICD10 Code Diagnosis IMO Codes Diagnosis Note [id number] VARSHA JIMENEZ PA-C [facility] on [address] [place] [address] 01/29/2022 13:43:47 02/02/2022 15:27:09 Stasis dermatitis of lower limb due to chronic peripheral venous hypertension 332814963 I87.399 Does not have acute cellulitis On diuretic-O k to take torsemide despite HCTZ allergy-up date Mg level if was not done PTAConside r ERIBERTO wrapsFollo ws with [facility] wound clinic Essential hypertension 76792424 I10 Monitor BPs and adjust meds prn Congestive heart failure 72727888 I50.9 Details unclearNo evidence of volume overload on examf/u prn Anemia 001133715 D64.9 Details unclearAwa it labs from [facility] to compare to today's labs Alcohol dependence 29379 003 F10.20 Last drink more than 7 days ago-no significan t risk for acute withdrawal Consider checking B12 and folate levels if not done at [facility] Dyslipidemia 707313282 E 78.5 on statinNo transamini tisOutpati ent f/u with PCP Gout 73188309 M10.9 Allopurino lf/u prn Hypomagnesemia 542068201 E83.42 Update level if not done recently Morbid obesity 015339172 E66.01 Outpatient f/u PCP Obstructiv e sleep apnea syndrome 28335867 G47.33 Consider EXTRUSION MANAGER consult Advance care planning 71 6729410 Z71.89 Met with patient, who is his own decision-shawna sanchez, in his room. Reviewed each section of the MOLST and answered questions to his satisfacti on. Form completed, signed, and orders entered to reflect the following: Full code; ok for dialysis; undecided re: artificial nutrition; ok for artificial hydration. Time spent 18 minutes [id number] Neha Sousa MD [facility] on [address] [place] [address] 02/01/2022 10:54:26 02/05/2022 16:20:00 Stasis dermatitis of lower limb due to chronic peripheral venous hypertension 442530199 I87.393 Continue lac-hydrin to BLE qhsEncoura ge wt. loss and ambulation which will help circulatio n.F/U with wound clinic and vascular. Essential hypertension 06070966 I10 Good control on torsemide 40 mg qd, lisinopril 5 mg qd and metoprolol 50 mg qd.Monitor BP and labs. Congestive heart failure 63351569 I50.9 Listed on problem list, but no echo found in [facility] or [facility] systemsCon tinue meds as above.Brittny tor resp. status, fluid status, wts and labs. Anemia 949498566 D50.8 Long standing iron deficiency anemia. Stable at this timeContin ue FeSO4 325 mg BID along with Vit C 500 mg BID.[phone], as planned. Alcohol dependence 25543 003 F10.20 No issues with withdrawal while inpt.Lori nue to encourage cessation. Not discussed today. Dyslipidemia 616138899 E 78.49 Continue rosuvastat in 20 mg qd.Monitor labs as outpt. Gout 29408482 M10.09 Continue allopurino l 400 mg qd.Monitor for flare. Hypomagnesemia 177181366 E83.42 Continue Mg oxide 400 mg BID.Monito r levels. Morbid obesity 553780549 E66.01 Continue to encourage healthy eating. tician involved. Obstructiv e sleep apnea syndrome 72441602 G47.33 Consider EXTRUSION MANAGER consult Health Concerns Section Related Observation LastModified by Organization Detai ls LastModified Time None Recorded Concern Status LastModified by Organization Details LastModified Time None Recorded Advance Directives Directive Y: Full code; ok for dialysi s; undecided re: artificial nutrition; ok for artificial hydration Payers Insurance Date Sequence Insurance Name Policy Number Policy Cortés Covered Member ID Cortés Member ID Guarantor Name 01/24/2024 1 [place] [id number] Mohan Gonzalez [id number] Mohan Gonzalez Notes Date Note Type Note Provider Name and Address Organization Details Recorded Time 01/29/2022 text/html Pt seen today for initial review. Very limited information received [facility]. 61-y/o M admitted from [facility] where he was hospitalized 01/22-01/28/22 cellulitis and bilateral leg wounds. Was recently discharged from wound clinic at [facility] where he was followed for the BLE wounds. Presented to [facility] ED with increased erythema and edema BLE with open areas and drainage RLE. Was referred by [facility]. Dx BLE cellulitis. Started on Vanc/Zosyn. Seen by ID and surgery who did not feel pt had acute cellulitis but rather chronic venous stasis changes. Abx d/c'd. Lac-hydrin and wraps added following wound care consultation. Seen by PT who recommended subacute rehab for general weakness Parenterals Received Prior to Admit: IV Zosyn, last dose no earlier than 01/22/22; IV Vanc, last dose no earlier than 01/22/22. PMHx: Acute cellulitis 01/2022; BLE wounds; Anemia; Morbid obesity; HTN; Dyslipidemia; Hx LE DVT; Chronic venous stasis with chronic erythema; Gout; CHF; Hypomagnesemia; Fe def; EtOH use d/o; Alcoholic steatohepatitis; Ascending aortic aneurysm; Hx rhabdo; Hx LGI bleed; Seborrheic dermatitis; [facility] Healthcare Maintenance: subacute rehab pt PPI use: not on a PPI Meds:Lac-hydrin 12% lotion daily to BLE (new)Allopurinol 400 mg po q amVit C 500 mg po bidCaCO3 + D 500-125 po bidFeSO4 325 mg po bidLisinopril 5 mg po dailyMag oxide 400 mg po bidToprol XL 50 mg po q amCrestor 20 mg po qhsTorsemide 40 mg po q am Diet: regular, thin liquids Mobility: walker at baselineContinence: continent of bowel and bladderFeeding: independent ROS: Feels weak. Chronic leg pain. No other complaints. VARSHA JIMENEZ PA-C [address] [place] [address], [address], [place], [address], [facility] 01/31/2022 19:13:40 02/01/2022 text/html This is a 61 yo man who is here for rehab after an acute hospitalization for cellulitis and acute on chronic anemia. He presented to the [facility] ED on 01/22 because of right leg redness, swelling and pain. 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 He had previously been followed by the wound clinic, but had recently been d/c'd as he had been stable with no open wounds. In ED his temp was 99.1, p-100, BP-156/86 and O2 sat-96% on RA. His WBC was 11.2 and H/H 9.5/31.1, lactic acid was 1.2. Imaging of BLE showed Chronic periosteal reaction distal tibia and fibula with a similar appearance noted on the left side. This most likely reflects reactive change related to venous insufficiency . Doppler was neg. for DVT. Admitted and started on Zosyn and doxy. He was seen by Dr. Smith for ID on 01/23 and she felt legs were symmetrical and looked like venous stasis changes and not cellulitis and advised d/c abxs. Started on topical ammonium lactate. He continued to have difficulty ambulating and STR was recommended. He was transferred here on 01/28.Today he tells me he continues to have trouble walking, but it is improving. He notes that right leg looks so much better compared to when he went to the hospital.His PMH includes HTN, chronic venous stasis BLE, EtOH abuse, morbid obesity, HLD, gout, CHF, anemia,hypomagnesemia , hx of left DVT, alcoholic fatty liver, hx of rhabdo requiring dialysis in 2018, DEBORAH, hx of GI bleed, and ascending aortic aneurysm. Neha Sousa MD [address] [place] [address], [address], [place], [address], [facility] - [facility] 02/04/2022 20:11:55
--- OUTSIDE RECORDS SUMMARY | 2025-06-01 20:46 | XMS_ITS | Encounter Summary ---
Author Organization [employer] Address [address] [place] [address] Care Team Providers Care Verification Engineer Name Role Phone Samantha Gonzales MD Primary Care Provider Gladis Mariee RN Unavailable [phone] Cecily Stern Unavailable Adis Cordero RN Unavailable [phone] Wenceslao Mariee Unavailable Reason for Visit * Reason Onset Date Comments urgent matter 10/10/2022 Encounter Details Date Type Department Care Team (Late st Contact Info) Description 10/10/2022 Telephone [facility] [address] [place], [place] [phone] Samantha Gonzales MD [address] [place], [place] [phone] urgent matter Social History Tobacco Use Types [...] EST Spoke with Karyn. Attended the court. Electrical Engineering Teacher did not agree with Section 35 * Telephone Encounter - Luz Elena Jones - 10/10/2022 1:58 PM EST Tc ivon Boss with [facility] regarding to pt. Karyn states that is an urgent matter regarding to Section 35 and will need to speak with PCP, regarding the matter to set up a zoom meeting with PCP and the court. Staffing And Scheduling Coordinator contacted PCP in advise epic chat, and let PCP know what's going on. Please contact Karyn at [phone] documented in this encounter Plan of Treatment Not on file documented as of this encounter Visit Diagnoses Not on filedocumented in this encounter Care Teams Verification Engineer Relationship Specialty Start Date End Date Samantha Gonzales MD [address] [place] [address] PCP - General Family Medicine 07/09/13 Gladis Mariee, RN [address] [place] [address] Registered Nurse Family Medicine 04/26/25 05/17/25 Cecily Stern 05/10/25 05/17/25 Adis Cordero, RN [address] [place] [address] Registered Nurse Family Medicine 05/17/25 Wenceslao Mariee 05/17/25 [facility] 05/17/24 03/29/25 [facility] 05/19/25 documented as of this encounter
--- OUTSIDE RECORDS SUMMARY | 2025-06-01 20:46 | XMS_ITS | Clinical Summary ---
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 Name Role Phone Samantha Gonzales MD Primary Care Provider [phone] Adis Cordero RN Unavailable [phone] Wenceslao Mariee Unavailable Allergies Active Allergy Reactions [...] Active Problems Problem Noted Date Diagnosed Date History of suicide attempt 06/01/2025 Moderate major depression, single episode (CMS/H CC) 06/01/2025 Wound of left lower extremity 02/25/2025 Assessment & Plan (04/13/2025 4:46 PM EDT): - s/p antibiotic treatment for cellulitis - Currently following with [facility] wound care clinic - Continue treatment plan per [facility] wound care Assessment & Plan (02/25/2025 5:22 PM EDT): - s/p antibiotic treatment for cellulitis - Currently following with [facility] wound care clinic - Continue treatment plan per [facility] wound care Diarrhea 01/12/2025 Assessment & Plan (04/13/2025 4:46 PM EDT): - Seen by GI, Dr. Lenz, on 01/19/2025. Dr. Lenz's impression is IBS with diarrhea. - Hospitalized in [facility] ED in September 2023 for diarrhea and [...] advised to use judiciously. Will request his wallpaper scraper to assist in optimizing his magnesium level without causing diarrhea - Patient was advised to reduce alcohol consumption Assessment & Plan (02/25/2025 5:04 PM EDT): - Seen by GI, Dr. Lenz, on 01/19/2025. Dr. Lenz's impression is IBS with diarrhea. - Hospitalized in [facility] ED in September 2023 for diarrhea and [...] advised to use judiciously. Will request his wallpaper scraper to assist in optimizing his magnesium level [...] risk factor management -upcoming appointment with Dandy Lnez Assessment & Plan (10/14/2024 5:11 PM EST): [...] GSV ablation in Aug 2018 -following with [facility] wound care clinic, periodically [...] GSV ablation in Aug 2018 -following with [facility] wound care clinic, periodically when he has open wounds. -currently followed by [facility] Wound care -usually discharged to visiting nurse [...] GSV ablation in Aug 2018 -following with [facility] wound care clinic, periodically when he has open wounds. -Last seen by [facility]ound care in October [...] GSV ablation in Aug 2018 -following with [facility] wound care clinic, periodically when he has open wounds. -Last seen by [facility] Wound care in October [...] GSV ablation in Aug 2018 -following with [facility] wound care clinic, periodically when he has open wounds. -Last seen by [facility]ound care in October [...] GSV ablation in Aug 2018 -following with [facility] wound care clinic, periodically when he has open wounds. -Last seen by [facility] Wound care in October [...] GSV ablation in Aug 2018 -following with [facility] wound care clinic, periodically when he has open wounds. -Last seen by [facility]ound care in October [...] GSV ablation in Aug 2018 -following with [facility] wound care clinic, periodically when he has open wounds. -Last seen by [facility] Wound care in October [...] is frequently having diarrhea - following with wallpaper scraper - He has diarrhea due to alcohol withdrawal and IBS, and develops hypomagnesemia, then he receives IV Mg in ED with magnesium oxide prescription upon discharge. Assessment & Plan (02/25/2025 5:13 PM EDT): - On magnesium oxide supplementation, but pt is frequently having diarrhea - following with wallpaper scraper - He has diarrhea due to alcohol withdrawal and IBS, and develops hypomagnesemia, then he receives IV Mg in ED with magnesium oxide prescription upon discharge. Assessment & Plan (06/25/2024 12:14 PM EST): - 01/28/23 Magnesium 1.1 - On magnesium oxide supplementation, but pt is frequently having diarrhea - following with wallpaper scraper - dehydration due to diarrhea on 04/25/23, IVF with Mg given in ED - recheck Assessment & Plan (05/26/2023 6:52 AM EDT): - 01/28/23 Magnesium 1.1 - On magnesium oxide supplementation, but pt is frequently having diarrhea - following with wallpaper scraper - dehydration due to diarrhea on 04/25/23, IVF with Mg given in ED - recheck Assessment & Plan (04/25/2023 12:51 PM EDT): - 01/28/23 Magnesium 1.1 - On magnesium oxide supplementation, but pt is frequently having diarrhea - following with wallpaper scraper - dehydration due to diarrhea today; anticipate hypomagnesemia again -> sending ER for replacement Assessment & Plan (01/23/2023 4:07 PM EDT): [facility] Hospitalization on 10/30 - 11/02 Lab showed hypomagnesemia and thrombocytopenia Pt is prescribed magnesium supplement; encouraged to improve adherence Pt is advised to hold when he is having diarrhea Assessment & Plan (11/30/2022 6:23 AM EDT): [facility] Hospitalization on 10/30 - 11/02 Lab showed hypomagnesemia and thrombocytopenia Pt is prescribed magnesium supplement; encouraged to improve adherence Stage 2 chronic kidney disease 10/13/2022 Assessment & Plan (04/14/2025 6:32 PM EDT): -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 Dr. Kennedy -Hx rhabdomyolysis, on hemodialysis for 1 month in November 2017 - December 2017 -His renal funciton was CKDII level [id number] -Most recent PO[facility] in Sep 2022, both admission, held lisinopril, spironolactone, and torsemide during 1st admission, and resumed upon discharge -Last lab: 01/28/23 Sodium 135; Potassium 3.6 ; Chloride 99 ; Bicarb 24 ; Calcium 8.0; BUN 19 , Creatinine 1.02 ; EGFR 84 -Avoid nephrotoxic drugs -Continue renal dosing Assessment & Plan (10/14/2024 5:13 PM EST): -Flavoring Machine Operator: [facility]. Dr. Kennedy -Hx rhabdomyolysis, on hemodialysis for 1 month in November 2017 - December 2017 -His renal funciton was CKDII level 8676-0334 -Most recent PO[facility] in Sep 2022, both admission, held lisinopril, spironolactone, and torsemide during 1st admission, and resumed upon discharge -Last lab: 01/28/23 Sodium 135; Potassium 3.6 ; Chloride 99 ; Bicarb 24 ; Calcium 8.0; BUN 19 , Creatinine 1.02 ; EGFR 84 -Avoid nephrotoxic drugs -Continue renal dosing Assessment & Plan (07/26/2023 2:10 PM EST): -Flavoring Machine Operator: Dr. Kennedy, last appt in Sep 2021 -Hx rhabdomyolysis, on hemodialysis for 1 month in November 2017 - December 2017 -His renal funciton was CKDII level [id number] -Most recent POLLY in Sep 2022, both [...] Assessment & Plan (05/26/2023 6:49 AM EDT): -Flavoring Machine Operator: Dr. Kennedy, last appt in Sep 2021 -Hx rhabdomyolysis, on hemodialysis for 1 month in November 2017 - December 2017 -His renal funciton was CKDII level [id number] -Most recent PO[facility] in Sep 2022, both admission, held lisinopril, spironolactone, and torsemide during 1st admission, and resumed upon discharge -Last lab: 01/28/23 Sodium 135; Potassium 3.6 ; Chloride 99 ; Bicarb 24 ; Calcium 8.0; BUN 19 , Creatinine 1.02 ; EGFR 84 -Avoid nephrotoxic drugs -Continue renal dosing Assessment & Plan (04/25/2023 12:49 PM EDT): -Flavoring Machine Operator: Dr. Kennedy, last appt in Sep 2021 -Hx rhabdomyolysis, on hemodialysis for 1 month in November 2017 - December 2017 -His renal funciton was CKDII level [id number] -Most recent POLLY in Sep 2022, both admission, held lisinopril, spironolactone, and torsemide during 1st admission, and resumed upon discharge -Last lab: 01/28/23 Sodium 135; Potassium 3.6 ; Chloride 99 ; Bicarb 24 ; Calcium 8.0; BUN 19 , Creatinine 1.02 ; EGFR 84 -Avoid nephrotoxic drugs -Continue renal dosing Assessment & Plan (01/23/2023 4:04 PM EDT): -Flavoring Machine Operator: Dr. Kennedy, last appt in Sep 2021 -Hx rhabdomyolysis, on hemodialysis for 1 month in November 2017 - December 2017 -His renal funciton was CKDII level [id number] -Most recent POLLY in Sep 2022, both admission, held lisinopril, spironolactone, and torsemide during 1st admission, and resumed upon discharge -Last lab: 10/07/22 BUN 31; SCr 1.7, eGFR 47 (Apr 2023 eGFR > 60) -Avoid nephrotoxic drugs -Continue renal dosing Assessment & Plan (11/26/2022 9:32 AM EDT): -Flavoring Machine Operator: Dr. Kennedy, last appt in Sep 2021 -Hx rhabdomyolysis, on hemodialysis for 1 month in November 2017 - December 2017 -His renal funciton was CKDII level [id number] -Most recent POLLY in Sep 2022, both admission, held lisinopril, spironolactone, and torsemide during 1st admission, and resumed upon discharge -Last lab: 10/07/22 BUN 31; SCr 1.7, eGFR 47 (Apr 2023 eGFR > 60) -Avoid nephrotoxic drugs -Recheck lab -Will use renal dosing Assessment & Plan (10/13/2022 5:03 PM EST): -Flavoring Machine Operator: Dr. Kennedy, last appt in Sep 2021 -Hx rhabdomyolysis, on hemodialysis for 1 month in November 2017 - December 2017 -His renal funciton was CKDII level [id number] -Most recent POLLY in Sep 2022, both [...] supplementation -currently receiving B12 IM from his piledriver carpenter, Dr. Peters Assessment & Plan (06/25/2024 12:12 PM EST): -likely nutritional and excessive alcohol consumption -continue vitamin supplementation -currently receiving B12 IM from his piledriver carpenter, Dr. Peters Assessment & Plan (07/25/2023 6:24 AM EST): -likely nutritional and excessive alcohol consumption -continue vitamin supplementation -currently receiving B12 IM from his piledriver carpenter, Dr. Peters Assessment & Plan (10/13/2022 5:15 PM EST): -likely nutritional and excessive alcohol consumption -continue vitamin supplementation Iron deficiency anemia 10/13/2022 Assessment & Plan (07/25/2023 6:25 AM EST): -Received Venfor IV 300 mg x 2 during 1st hospitalization in [facility] in Sep 2022 -Continue follow-up with piledriver carpenter Assessment & Plan (10/13/2022 5:17 PM EST): -Received Venfor IV 300 mg x 2 during 1st hospitalization in [facility] in Sep 2022 -Continue follow-up with piledriver carpenter Anemia of chronic disease 01/15/2018 Assessment & Plan (02/25/2025 5:16 PM EDT): - following with piledriver carpenter - Most recent CBC at baseline - multifactorial: chronic liver disease; iron deficiency; B12 deficiency - continue vitamin B12 IM - continue iron Assessment & Plan (01/17/2025 12:09 PM EDT): - recheck lab as his last CBC showed decreased H/H from baseline Assessment & Plan (10/09/2024 1:03 AM EST): - Both Iron and Vitamin-B12 deficiency, and anemia of chronic diseaes - followed by piledriver carpenter, Dr. Peters Assessment & Plan (06/25/2024 12:12 PM EST): - Both Iron and Vitamin-B12 deficiency, and anemia of chronic diseaes - followed by piledriver carpenter, Dr. Peters Assessment & Plan (07/26/2023 2:12 PM EST): - Both Iron and Vitamin-B12 deficiency, and anemia of chronic diseaes -followed by piledriver carpenter, Dr. Peters, last seen on 06/03/23 Assessment & Plan (05/26/2023 6:51 AM EDT): Both Iron and Vitamin-B12 deficiency -followed by piledriver carpenter Assessment & Plan (04/25/2023 10:40 AM EDT): Both Iron and Vitamin-B12 deficiency -followed by piledriver carpenter Assessment & Plan (01/23/2023 4:06 PM EDT): Both Iron and Vitamin-B12 deficiency -followed by piledriver carpenter Assessment & Plan (11/26/2022 9:51 AM EDT): Both Iron and Vitamin-B12 deficiency -followed by piledriver carpenter Assessment & Plan (10/13/2022 5:18 PM EST): -multifactorial - nutritional, CKD -following with [facility] piledriver carpenter Aneurysm of ascending aorta 05/29/2016 Assessment & Plan (04/14/2025 6:32 PM EDT): -Most recent echo on 04/12/21, EF 60-65%, dilated ascending aorta 41mm -Echo on 04/05/20, EF 55-60%, dilated ascending aorta 42 mm, -Echo on 04/01/19 EF 60-65%, Aortic root dimension 37~43mm -Echo on 06/23/24 EF 60-65%, Ascending aortic aorta 41 mm. -Seen by his accounts manager, Dr. Claudio in Jun 2024. Patient requests a referral to accounts manager in [place] because [facility] office is [...] aortic aorta 41 mm. -Seen by his accounts manager, Dr. Claudio in Jun 2024 -Continue [...] aortic aorta 41 mm. -Seen by his accounts manager, Dr. Claudio in Jun 2024 -Continue surveillance transthoracic echocardiogram -Work on risk factor management Assessment & Plan (11/12/2023 12:18 PM EDT): -Most recent echo on 04/12/21, EF 60-65%, dilated ascending aorta 41mm -Echo on 04/05/20, EF 55-60%, dilated ascending aorta 42 mm, -Echo on 04/01/19 EF 60-65%, Aortic root dimension 37~43mm -Seen by his accounts manager, Dr. Claudio on 03/14/23 -Pt advised to check next Cardiogram appt which is in August 2023 -Work on risk factor management Assessment & Plan (07/25/2023 6:22 AM EST): -Most recent echo on 04/12/21, EF 60-65%, dilated ascending aorta 41mm -Echo on 04/05/20, EF 55-60%, dilated ascending aorta 42 mm, -Echo on 04/01/19 EF 60-65%, Aortic root dimension 37~43mm -Seen by his accounts manager, Dr. Claudio on 03/14/23 -Pt advised to check next Cardiogram appt which is in August 2023 -Work on risk factor management Assessment & Plan (05/26/2023 6:48 AM EDT): -Most recent echo on 04/12/21, EF 60-65%, dilated ascending aorta 41mm -Echo on 04/05/20, EF 55-60%, dilated ascending aorta 42 mm, -Echo on 04/01/19 EF 60-65%, Aortic root dimension 37~43mm -Seen by his accounts manager, Dr. Claudio on 03/14/23 -Pt advised to check next Cardiogram appt which is in August 2023 -Work on risk factor management Assessment & Plan (04/25/2023 10:42 AM EDT): -Most recent echo on 04/12/21, EF 60-65%, dilated ascending aorta 41mm -Echo on 04/05/20, EF 55-60%, dilated ascending aorta 42 mm, -Echo on 04/01/19 EF 60-65%, Aortic root dimension 37~43mm -Seen by his accounts manager, Dr. Claudio on 03/14/23 -Pt advised to check next Cardiogram appt which is in August 2023 -Work on risk factor management Assessment & Plan (11/30/2022 6:19 AM EDT): -Most recent echo on 04/12/21, EF 60-65%, dilated ascending aorta 41mm -Echo on 04/05/20, EF 55-60%, dilated ascending aorta 42 mm, -Echo on 04/01/19 EF 60-65%, Aortic root dimension 37~43mm -Seen by his accounts manager, Dr. Claudio on n 07/11/22 -Pt advised to check next Cardiogram appt -Work on risk factor management Assessment & Plan (10/13/2022 5:10 PM EST): -Most recent echo on 04/12/21, EF 60-65%, dilated ascending aorta 41mm -Echo on 04/05/20, EF 55-60%, dilated ascending aorta 42 mm, -Echo on 04/01/19 EF 60-65%, Aortic root dimension 37~43mm -Seen by his accounts manager, Dr. Claudio on n 07/11/22 -Pt [...] to [facility]UD Clinic. Pt will meet with Accounting Methods Analyst today. Assessment & Plan (10/13/2022 5:30 PM [...] 25 mg daily which was discontinued by wallpaper scraper - Improve CPAP adherence - return for BP check in 1 mo. If persistently elevated, then refer to CDTM. Tx history - Amlodipine was discontinued due to LE edema and furosemide was switched to torsemide by his accounts manager. - Lisinopril was discontinued when he [...] 25 mg daily which was discontinued by wallpaper scraper - Improve CPAP adherence Tx history - Amlodipine was discontinued due to LE edema and furosemide was switched to torsemide by his accounts manager. - Lisinopril was discontinued when he [...] 25 mg daily which was discontinued by wallpaper scraper - Improve CPAP adherence Tx history - Amlodipine was discontinued due to LE edema and furosemide was switched to torsemide by his accounts manager. - Lisinopril was discontinued when he [...] 25 mg daily which was discontinued by wallpaper scraper - Improve CPAP adherence Tx history - Amlodipine was discontinued due to LE edema and furosemide was switched to torsemide by his accounts manager. - Lisinopril was discontinued when he [...] 25 mg daily which was discontinued by wallpaper scraper - Improve CPAP adherence Tx history - Amlodipine was discontinued due to LE edema and furosemide was switched to torsemide by his accounts manager. - Lisinopril was discontinued when he [...] furosemide was switched to torsemide by his accounts manager. - Lisinopril was discontinued when he [...] furosemide was switched to torsemide by his accounts manager. - Lisinopril was discontinued when he [...] metoprolol succinate 75 mg daily (Dr. Claudio, accounts manager, increased to 100 mg daily, but his discharge medication list shows 75 mg daily) - Continue torsemide 20 mg bid - Continue spirolactone 25 mg daily - Continue lisinopril 5mg daily - Improve CPAP adherence Tx history - Amlodipine was discontinued due to LE edema and furosemide was switched to torsemide by his accounts manager. - Lisinopril was discontinued when he [...] metoprolol succinate 75 mg daily (Dr. Claudio, accounts manager, increased to 100 mg daily, but his discharge medication list shows 75 mg daily) - Continue torsemide 20 mg bid - Continue spirolactone 25 mg daily - Continue lisinopril 5mg daily - Improve CPAP adherence Tx history - Amlodipine was discontinued due to LE edema and furosemide was switched to torsemide by his accounts manager. - Lisinopril was discontinued when he [...] metoprolol succinate 75 mg daily (Dr. Claudio, accounts manager, increased to 100 mg daily, but his discharge medication list shows 75 mg daily) - Continue torsemide 20 mg bid - Continue spirolactone 25 mg daily - Continue lisinopril 5mg daily - Improve CPAP adherence Tx history - Amlodipine was discontinued due to LE edema and furosemide was switched to torsemide by his accounts manager. - Lisinopril was discontinued when he [...] metoprolol succinate 75 mg daily (Dr. Claudio, accounts manager, increased to 100 mg daily, but his discharge medication list shows 75 mg daily) - Continue torsemide 20 mg bid - Continue spirolactone 25 mg daily - Continue lisinopril 5mg daily - Improve CPAP adherence Tx history - Amlodipine was discontinued due to LE edema and furosemide was switched to torsemide by his accounts manager. - Lisinopril was discontinued when he [...] metoprolol succinate 75 mg daily (Dr. Claudio, accounts manager, increased to 100 mg daily, but his discharge medication list shows 75 mg daily) - Continue torsemide 20 mg bid - Continue spirolactone 25 mg daily - Continue lisinopril 5mg daily - Improve CPAP adherence Tx history - Amlodipine was discontinued due to LE edema and furosemide was switched to torsemide by his accounts manager. - Lisinopril was discontinued when he [...] - ambulance called to transport patient to [facility] for further management Abdominal pain 01/23/2024 02/25/2025 [...] for AUD clinic this Saturday Kidney lesion, [place], left 10/13/2022 06/15/2024 Assessment & Plan (07/25/2023 [...] organization. Date Type Department Care Team Description 06/01/2025 2:20 PM EDT Office Visit [facility] [address] [place] [address] Acute gastroenteritis (Primary Dx); Dizziness 06/01/2025 Telephone [facility] [address] [place] [address] Samantha Gonzales MD Triage 05/26/2025 Telephone [facility] [address] [place] [address] Samantha Gonzales MD Care Coordination 05/26/2025 Patient Outreach [address] [address] Samantha Gonzales MD Care Coordination ([facility] Wenceslao Mariee, outreach #[id number] ) 05/20/2025 Patient Outreach [address] [address] Samantha Gonzales MD Care Coordination ([facility] Wenceslao Mariee, outreach #[id number] ) 05/19/2025 Patient Outreach [address] [address] Samantha Gonzales MD Care Coordination (Home Health Notification) 05/17/2025 Patient Outreach [address] [address] Samantha Gonzales MD Care Coordination ([facility] Wenceslao Mariee, initial outreach_lvm ) 05/13/[address] [address] Samantha Gonzales MD call back requested 05/11/2025 Patient Outreach [address] [address] Samantha Gonzales MD Care Coordination ([facility] chart review) 05/03/[address] [address] Samantha Gonzales MD Care Coordination 04/30/2025 Results Follow-Up [address] [address] Brianna Covington ANP Hepatic Function Panel, B Type Natriuretic Peptide (BNP) 04/27/2025 Orders Only [address] [address] Samantha Gonzales MD Foot lesion (Primary Dx); Venous stasis 04/27/[address] [address] Rebekah Negrete, artist mannequin coloring 04/26/2025 Patient Outreach [address] [address] Samantha Gonzales MD Care Management ([facility]- chart review) 04/26/2025 Patient Outreach [address] [address] Samantha Gonzales MD 04/25/2025 Orders Only [facility] External Provider, [facility] 04/22/2025 Results Follow-Up [address] [address] Samantha Gonzales MD US Abdomen Comp w elastography 04/18/2025 Telephone [facility] [address] [place] [address] Sarah Leon MD 04/15/[address] [address] Samantha Gonzales MD Referral 04/13/2025 10:30 AM EDT Office Visit [address] [address] Samantha Gonzales MD Essential hypertension (Primary Dx); Renal cell cancer, left (CMS/HCC); Encounter for immunization; Dyslipidemia; Diarrhea, unspecified type; Anemia, unspecified type; Wound of left lower extremity, subsequent encounter; Abdominal wound dehiscence, initial encounter; Venous stasis dermatitis of both lower extremities; Aneurysm of ascending aorta without rupture (CMS/HCC); Metabolic dysfunction-associated steatotic liver disease and increased alcohol intake (MetALD); Alcoholic liver disease (CMS/HCC); Stage 2 chronic kidney disease; Hypomagnesemia; Obstructive sleep apnea syndrome; Class 2 severe obesity due to excess calories with serious comorbidity and body mass index (BMI) of 35.0 to 35.9 in adult (CMS/HCC) 04/13/[address] [address] Samantha Gonzales MD visiting nurse referral 04/13/2025 Travel 04/12/[address] [address] Smaantha Gonzales MD Referral 03/31/2025 Patient Outreach [facility] [address] [place] [address] Samantha Gonzales MD Care Coordination (C3/CM Outreach) 03/24/2025 Telephone [facility] [address] [place] [address] Samantha Gonzales MD FYI 03/03/2025 Patient Outreach [facility] [address] [place] [address] Samantha Gonzales MD Care Coordination (C3/CM Outreach) [...] housing situation today? I have neelwanda badillo 01/12/[address] you [...] 06/25/2024 Alcohol/Substance Use Screening 06/25/2025 06/25/2024 Depression Monitoring 11/30/2025 06/01/2025, 025 Disability Screening 01/12/2026 01/12/2025 SDOH Screening 01/12/2026 01/12/2025 Tobacco Screening 06/01/2026 06/01/2025 Lipid Panel 04/13/2030 04/13/2025, 06/19, 01/28/2023, Additional [...] GLUCOSE Routine 06/01/2025 3:[address] CERVICAL SPINE WO CONTRAST Routine 04/25/2025 [...] Relevant to Health Maintenance Results * POCT Glucose (06/01/2025 3:32 PM EDT) Pathologist [facility] [place] Glucose Blood, POC 113 60 - 200 mg/dL QC Media Lot # [id number] Lot# Expiration Date Blood Capillary blood specimen / Unknown 06/01/2025 3:32 PM EDT Radha Gtz MD POINT OF CARE TEST ENTER /EDIT ORDERABLES Final Result * CT Cervical Spine w/o Contrast (04/25/2025 8:53 AM EDT) Anatomical Region Laterality Modality Spine, C-spine Computed Tomogra phy 04/25/2025 8:53 AM EDT Narrative 04/25/2025 8:55 AM EDT [address] [address] [address] Scan Report Signed Patient: Mohan Gonzalez MR#: [id number] : 1960 Acct:[id number] Age/Sex: 64 / M ADM Date: 04/25/25 Loc: HO.ED Attending Dr: Ordering Physician: Gil Jane DO Date of Service: 04/25/25 Procedure(s): CT cervical spine wo IV con Accession Number(s): [id number] cc: Samantha Gonzales MD; Gil Jane DO Report Number: [id number]: Total DLP = 1490.00 mGy-cm Reason for [...] in OV> 04/25/2554 DD/ 2 TD/TT: 04/25/25852 Leadership Intern: Procedure Note Donotuseinterpreter, Image - 04/25/[address] [place] [address] [address] Scan Report Signed Patient: Mohan Gonzalez AMR#: [id number] : 1960cct:[id number] Age/Sex: 64 / MADM Date: 04/25/25 Loc: .ED Attending Dr: Ordering Physician: Gil Jane DO Date of Service: 04/25/25 Procedure(s): CT cervical spine wo IV con Accession Number(s): [id number] cc: Samantha Gonzales MD; Gil Jane DO Report Number: [id number]: Total DLP = 1490.00 mGy-cm Reason for [...] in OV> 04/25/2554 DD/ 2 TD/TT: 04/25/25852 Leadership Intern: us [facility] External Provider IMG CT PROCEDURES Final Result * CT Head w/o Contrast (04/25/2025 8:52 AM EDT) Anatomical Region Laterality Modality Head, Neck Computed Tomogra phy 04/25/2025 8:52 AM EDT Narrative 04/25/2025 8:55 AM EDT [place] [address] [address] Scan Report Signed Patient: Mohan Gonzalez MR#: [id number] : 1960 Acct:[id number] Age/Sex: 64 / M ADM Date: 04/25/25 Loc: HO.ED Attending Dr: Ordering Physician: Gil Jane DO Date of Service: 04/25/25 Procedure(s): CT head/brain wo IV con Accession Number(s): [id number] cc: Saamntha Gonzales MD; Gil Jane DO Report Number: [id number]: Total DLP = 0.00 mGy-cm Reason for [...] OV> 04/25/25 0854 DD/ 1 TD/TT: 04/25/25851 Leadership Intern: Procedure Note Donotuseinterpreter, Image - 04/25/[address] [address] [address] Scan Report Signed Patient: Mohan Gonzalez AMR#: [id number] : 1960cct:[id number] Age/Sex: 64 / MADM Date: 04/25/25 Loc: HO.ED Attending Dr: Ordering Physician: Gil Jane DO Date of Service: 04/25/25 Procedure(s): CT head/brain wo IV con Accession Number(s): [id number] cc: Samantha Gonzales MD; Gil Jane DO Report Number: [id number]: Total DLP = 0.00 mGy-cm Reason for [...] OV> 04/25/25 0854 DD/ 1 TD/TT: 04/25/25851 Leadership Intern: us [facility] External Provider IMG CT PROCEDURES Final Result * US Abdomen Comp w elastography (04/22/2025 9:47 AM EDT) Anatomical Region Laterality Modality Abdomen Ultrasound 04/22/2025 9:47 AM EDT Narrative 04/22/2025 10:34 AM EDT [address] [address] Ultrasound Report Signed Patient: Mohan Gonzalez MR#: [id number] : 1960 Acct:[id number] Age/Sex: 64 / M ADM Date: 04/22/25 Loc: HO.US Attending Dr: Samantha Gonzales MD Ordering Physician: Samantha Gonzales MD Date of Service: 04/22/25 Procedure(s): US abdomen comp w elastography Accession Number(s): [id number] cc: Samantha Gonzales MD Reason for Exam: [...] 04/22/25 1032 DD/ 0947 TD/TT: 04/22/25 0959 Leadership Intern: Procedure Note Donotuseinterpreter, Image - 04/22/[address] [address] Ultrasound Report Signed Patient: Mohan Gonzalez AMR#: [id number] : 1960cct:[id number] Age/Sex: 64 / MADM Date: 04/22/25 Loc: HO.US Attending Dr: Samantha Gonzales MD Ordering Physician: Samantha Gonzales MD Date of Service: 04/22/25 Procedure(s): US abdomen comp w elastography Accession Number(s): [id number] cc: Samantha Gonzales MD Reason for Exam: [...] 04/22/25 1032 DD/ 0947 TD/TT: 04/22/25 0959 Leadership Intern: us Samantha Gonzales MD IM US PROCEDURES Final Result * TSH with Reflex to Free T4 (04/13/2025 11:26 AM EDT) TSH reflex Free T4 1.72 0.32 - 4.0 uIU/mL [facility] Blood 04/13/2025 11:2 6 AM EDT 04/13/2025 1:08 PM EDT Samantha Gonzales MD LAB BLOOD ORDERABLES Final Resul t Performing Organization Address [facility] Co de Phone Number [facility] [address] [place] [phone] * Lipid Panel with Reflex to Direct LDL (04/13/2025 11:26 AM EDT) Triglycerides 70 <150 mg/dL [facility] Comment:Desirable Triglyceri de: less than 150 mg/dLBorderline High Triglyceride 150-199 mg/dLHigh Triglyceride: 200-499 mg/dLVery High Triglyceride: greater than or equal to 5OO mg/dL Cholesterol 169 <200 mg/dL [facility] Comment:Desirable Cholestero l: less than 200 mg/dLBorderline High Cholesterol: 200-239 mg/dLHigh Cholesterol: greater than 239 mg/dL LDL Cholesterol Calculated 86 <100 mg/dL [facility] Comment:Desirable LDL: less than 100 mg/dLNear Optimal/Above Optimal LDL: 110- 129 mg/dLBorderline High LDL: 130-159 mg/dLHigh LDL: 160-189 mg/dLVery High LDL: greater than or equal to 190 mg/dL HDL Cholesterol 69 >40 mg/dL [facility] Comment:Desirable HDL: great er than 40 mg/dL Note: This HDL assay may give artificially low results in patients with liver disease. Blood 04/13/2025 11:2 6 AM EDT 04/13/2025 1:08 PM EDT Samantha Gonzales MD LAB BLOOD ORDERABLES Final Resul t Performing Organization Address [facility]/ZIP Co de Phone Number [facility] [address] [place] [phone] * (ABNORMAL) CBC auto differential (04/13/2025 11:26 AM EDT) White Blood Count 6.1 4.8 - 10.8 X10*3/uL [facility] Red Blood Count 3.36(L) 4.60 - 5.80 X10*6/uL [facility] Hemoglobin 10.0(L) 14.0 - 18.0 g/dl [facility] Hematocrit 30.9(L) 42.0 - 52.0 % [facility] Mean Corpuscular Volume 92.0 80.0 - 98.0 fL [facility] Mean Corpuscular Hemoglobin 29.8 27.0 - 33.0 pg [facility] Mean Corpuscular HGB Conc 32.4 31.0 - 36.0 g/dl [facility] Red Cell Distribution Width 15.2 11.0 - 16.0 % [facility] Platelet Count 132(L) 160 - 400 X10*3/uL [facility] Mean Platelet Volume 8.5(L) 9.4 - 12.4 fL [facility] Neutrophils Percent Auto 57.3 45 - 73 % [facility] Imm Gran Pct Auto 0.2 0.0 - 0.4 % [facility] Lymphocytes Percent Auto 32.3 20 - 40 % [facility] Monocytes Percent Auto 6.6 2 - 11 % [facility] Eosinophils Percent Auto 2.1 0 - 4 % [facility] Basophils Percent Auto 1.5 0 - 2 % [facility] NRBC Pct Auto 0.0 0.0 - 0.2 /100WBC [facility] Neutrophils Absolute Auto 3.5 2.0 - 8.3 x10*3/uL [facility] Imm Gran Abs Auto 0.01 0.00 - 0.03 X10*3/uL [facility] Lymphocytes Absolute Auto 2.0 1.2 - 4.9 X10*3/uL [facility] Monocytes Absolute Auto 0.4 0.1 - 1.2 X10*3/uL [facility] Eosinophils Absolute Auto 0.1 0.0 - 0.4 X10*3/uL [facility] Basophils Absolute Auto 0.1 0.0 - 0.2 X10*3/uL [facility] NRBC Abs Auto 0.000 0.0 - 0.012 X10*3/uL [facility] Blood Venous blood specimen / Unknown 04/13/2025 11:26 AM EDT 04/13/2025 1:08 PM EDT Samantha Gonzales MD LAB BLOOD ORDERABLES Final Resul t Performing Organization Address [facility]/ZIP Co de Phone Number [facility] [address] [place] [phone] * (ABNORMAL) B Type Natriuretic Peptide (BNP) (04/13/2025 11:26 AM EDT) Pathologist [facility] [place] B Type Natriuretic Peptide 400(H) <100 pg/mL [facility] Blood Venous blood specimen / Unknown 04/13/2025 11:26 AM EDT 04/13/2025 12:58 PM EDT us Brianna CARRERA LAB BLOOD ORDERABLES Final Resul t Performing Organization Address [facility] Co de Phone Number [facility] [address] [place] [phone] * Magnesium (04/13/2025 11:26 AM EDT) Pathologist [facility] [place] Magnesium 1.8 1.6 - 2.6 mg/dL [facility] Blood Venous blood specimen / Unknown 04/13/2025 11:26 AM EDT 04/13/2025 1:08 PM EDT Samantha Gonzales MD LAB BLOOD ORDERABLES Final Resul t Performing Organization Address [facility] Co de Phone Number [facility] [address] [place] [phone] * (ABNORMAL) Hepatic Function Panel (04/13/2025 11:26 AM EDT) Bilirubin, Total 0.8 0.0 - 1.0 mg/dL [facility] Bilirubin, Direct 0.4 0.0 - 0.5 mg/dL [facility] Aspartate Amino Transferase 32 5 - 37 U/L [facility] Alanine Aminotransferase 10 0 - 40 U/L [facility] Total Protein 7.3 6.5 - 8.0 g/dL [facility] Albumin Level 3.8 3.5 - 5.0 g/dL [facility] Alkaline Phosphatase 125(H) 39 - 117 U/L [facility] Blood Venous blood specimen / Unknown 04/13/2025 11:26 AM EDT 04/13/2025 1:08 PM EDT Brianna Covington [facility] LAB BLOOD ORDERABLES Final Resul t [facility] [address] [place] [phone] * (ABNORMAL) Comprehensive Metabolic Panel (04/13/2025 11:26 AM EDT) Sodium 146(H) 135 - 145 mmol/L [facility] Potassium 4.2 3.3 - 5.1 mmol/L [facility] Chloride 111(H) 96 - 108 mmol/L [facility] Carbon Dioxide 25 22 - 29 mmol/L [facility] Anion Gap 14 12 - 20 [facility] Urea Nitrogen (BUN) 14 9 - 16 mg/dL [facility] Creatinine, Serum 1.19 0.5 - 1.4 mg/dL [facility] Estimated Glomerular Filt Rate >60 [facility] Comment:Chronic Kidney Disea se: Estimated GFR < 60 mL/min/1.31v9Mblqhl Kidney Disease: Estimated GFR < 15 mL/min/1.73m2 Glucose 81 60 - 115 mg/dL [facility] Calcium 8.7 8.4 - 10.2 mg/dL [facility] Bilirubin, Total 0.8 0.0 - 1.0 mg/dL [facility] Aspartate Amino Transferase 31 5 - 37 U/L [facility] Alanine Aminotransferase 9 0 - 40 U/L [facility] Total Protein 7.3 6.5 - 8.0 g/dL [facility] Albumin Level 3.8 3.5 - 5.0 g/dL [facility] Alkaline Phosphatase 125(H) 39 - 117 U/L [facility] Blood Venous blood specimen / Unknown 04/13/2025 11:26 AM EDT 04/13/2025 1:08 PM EDT us Samantha Gonzales MD LAB BLOOD ORDERABLES Final Resul t [facility] [address] [place] [phone] * Wound Care (04/13/2025 11:10 AM EDT) Narrative Sarah Stallworth - 04/13/2025 11:10 AM EDT Samantha Gonzales MD 04/14/2025 6:38 PM Wound Care Date/Time: 04/13/2025 11:10 AM Performed by: Karyn Patel RN Authorized by: Samantha Gonzales MD Consent: Consent obtained: Verbal Consent given by: Patient Risks, benefits, and alternatives were discussed: yes Risks discussed: Infection Trion protocol: Patient identity confirmed: Verbally with patient [...] alternatives were discussed: yes Risks discussed: Infection Trion protocol: Patient identity confirmed: Verbally with patient Procedure details: Wound location: left lower flank. Dressing: Dressing applied: 2x2 and 4x4 Post-procedure details: Procedure completion: Tolerated well, no immediate complications us Samantha Gonzales MD IN CLINIC/BEDSIDE ORDERABLES Robin josh Result - Final * Hm Colonoscopy (09/20/2023) Colonoscopy Normal Normal Historical Provider HEALTH MAINTENANCE Final Result * Hepatitis C Antibody with Reflex to HCV, RNA, Quantitative, Real-Time PCR (01/28/2023 9:34 AM EDT) Hepatitis C Antibody NON-REACT GENI NON-REACT GENI [employer] Index 0.04 <1.00 [employer] Comment: HCV antibody was non-reactive. There is no laboratory evidence of HCV infection. In most cases, no further action is required. However, if recent HCV exposure is suspected, a test for HCV RNA (test code 25373) is suggested. For additional information please refer to http://education.RiskIQ/faq/DPF92t4 (This link is being provided for informational/ educational purposes only.) Blood Venous blood specimen / Unknown 01/28/2023 9:34 AM EDT 01/28/2023 9:34 AM EDT Narrative [facility] - 01/28/2023 9:34 PM EDT FASTING:YES FASTING: YES Kerwin Mendoza MD LAB BLOOD ORDERABLES Final Resul t [facility] [address], [place] [address] [email or web address] [address] [place] [phone] from Last 3 Months or Most Recently Relevant to Health Maintenance Insurance C3 Care Teams Locomotive Boilermaker Relationship Specialty Start Date End Date Samantha Gonzales MD [address] [place] [phone] PCP - General Family Medicine 07/09/13 Adis Cordero, ROSALINDA [address] [place] [phone] Registered Nurse Family Medicine 05/17/25 Wenceslao Mariee 05/17/25 [employer] 05/19/25
--- OUTSIDE RECORDS SUMMARY | 2025-06-01 20:46 | XMS_ITS ---
Author Organization [employer] Address [address] [facility] [address] [place] [address] Care Team Providers Care Final Assembly And Packing Supervisor Name Role Phone Samantha Gonzales MD Primary Care Provider [phone] Adis Cordero RN Unavailable [phone] Wenceslao Mariee Unavailable CM Complex Status:Outreach In Progress (Enrolling) Start date:04/26/2025 Enrollment reason:ADT Feed Overview ED- Pt went to [facility] on 04/25/25. Case Team Name Relationship Phone Adis Cordero RN(Responsible Staff) Registered [facility] [phone] Continued Care and Services Coordination
--- OUTSIDE RECORDS SUMMARY | 2025-06-01 20:46 | XMS_ITS | Encounter Summary ---
Author Organization [employer] Address [address] [place] [address] Care Team Providers Care Watchmaker Apprentice Name Role Phone Samantha Gonzales MD Primary Care Provider Gladis Mariee RN Unavailable [phone] Cecily Stern Unavailable Adis Cordero RN Unavailable [phone] Wenceslao Mariee Unavailable Reason for Visit * Reason Onset Date Comments Nurse Triage 06/22/2024 Encounter Details Date Type Department Care Team (Late st Contact Info) Description 06/22/2024 Telephone [facility] [address] [place], [place] [phone] Samantha Gonzales MD [address] [place], [place] [phone] Nurse Triage Social History Tobacco Use Types [...] hopeless Not at all 06/25/2024 11:09 AM [employer] [place] Trouble falling or staying asleep, [...] to Pt reports that a person from [employer] comes every 2-3 days and changes dressing [...] booking. Pt will have another visit with [facility] prior to apt. Protocol Used: Wound Infection [...] documented as of this encounter Care Teams Watchmaker Apprentice Relationship Specialty Start Date End Date Samantha Gonzales MD [address] [place] [phone] PCP - General Family Medicine 07/09/13 Gladis Mariee RN [address] [place] [address] Registered Nurse Family Medicine 04/26/25 05/17/25 Cecily Stern 05/10/25 05/17/25 Adis Cordero, ROSALINDA [address] [place] [address] Registered Nurse Family Medicine 05/17/25 Wencselao Mariee 05/17/25 [facility] 05/17/24 03/29/25 [employer] 05/19/25 documented as of this encounter
--- OUTSIDE RECORDS SUMMARY | 2025-06-01 20:47 | XMS_ITS | Encounter Summary ---
Author Organization [employer] Address [address] [facility] [address] [place] [address] Care Team Providers Care Medical Health Researcher Name Role Phone Samantha Gonzales MD Primary Care Provider [phone] Gladis Mariee RN Unavailable [phone] Cecily Stern Unavailable Adis Cordero RN Unavailable [phone] Wenceslao Mariee Unavailable Reason for Visit * Reason Onset Date Comments OV 01/2601/24/2024 Encounter Details Date Type Department Care Team (Late st Contact Info) Description 01/24/2024 Telephone [facility] MED[facility]INE [address] [place], [place] [phone] Samantha Gonzales MD [address] [place], [place] [phone] OV 01/26 Social History Tobacco Use Types [...] state he is currently in rehab in [place] and due to a set back pt does not have any transportation to make it to [place] on Saturday. If any questions please contact pt at [phone]. documented in this encounter Plan of Treatment Not on file documented as of this encounter Visit Diagnoses Not on filedocumented in this encounter Additional Health Concerns Assessment Noted Time PHQ-9 Depression Total Score: 3 12/15/19 23 1:37 PM EDT documented as of this encounter Care Teams Medical Health Researcher Relationship Specialty Start Date End Date Samantha Gonzales MD [address] [place] [address] PCP - General Family Medicine 07/09/13 Gladis Mariee, ROSALINDA [address] [place] [address] Registered Nurse Family Medicine 04/26/25 05/17/25 Cecily Stern 05/10/25 05/17/25 Adis Cordero, RN [address] [place] [address] [place] [phone] Registered Nurse Family Medicine 05/17/25 Wenceslao Mariee 05/17/25 [facility] 05/17/24 03/29/25 [email or web address] 05/19/25 documented as of this encounter"
[2025-06-01 21:22] LABS: Lipase 12 U/L (8-78)
[2025-06-01] MEDS: Lactated Ringers 1,000 ML 999 ML IV (21:59)
[2025-06-01] MEDS: iohexoL 350 MG/ML 100 ML INFUS..BTL 85 ML IV (22:19)
[2025-06-01 22:20] VITALS: BP 145/70; PULSE 85; RESP 14; O2SAT 100
[2025-06-02 02:00] VITALS: BP 130/72; PULSE 76; RESP 20; TEMP 36.7; O2SAT 95
[2025-06-02 05:15] VITALS: BP 130/72; PULSE 76; RESP 20; TEMP 36.7; O2SAT 95
[2025-06-02 05:37] VITALS: BP 135/76; PULSE 76; RESP 20; TEMP 36.7; O2SAT 95
== END 2025-06-02 05:39 | disposition home or self-care (01) ==
PROVIDERS: Physician Assistant; Registered Nurse Emergency; Emergency Provider Emergency Medicine Emergency Medical Services; PCP Family Medicine
DX: F10.10 Alcohol abuse, uncomplicated (principal); K65.4 Sclerosing mesenteritis; I10 Essential (primary) hypertension; N18.31 Chronic kidney disease, stage 3a; D64.9 Anemia, unspecified; Z86.718 Personal history of other venous thrombosis and embolism; Z79.899 Other long term (current) drug therapy
CPT/HCPCS: 36415; 74177; 80053; 80307; 83690; 83735; 85025; 85610; 87502; 87635; 93005; 99285; J2250; J3475; J7120; Q9967

== ENCOUNTER → 2025-06-01 16:13 | Outpatient (BNV) | payer MEDICAID, SELFPAY | PROVIDERS: Emergency Provider Emergency Medicine Emergency Medical Services; PCP Family Medicine; Visit Provider Internal Medicine Cardiovascular Disease | DX: I49.3 Ventricular premature depolarization (principal); I49.1 Atrial premature depolarization; I44.7 Left bundle-branch block, unspecified | CPT/HCPCS: 93010 ==

== ENCOUNTER → 2025-06-01 21:20 | Outpatient (BNV) | payer MEDICAID, SELFPAY | PROVIDERS: Emergency Provider Emergency Medicine Emergency Medical Services; PCP Family Medicine; Visit Provider Radiology Diagnostic Radiology | DX: K65.4 Sclerosing mesenteritis (principal); K57.90 Diverticulosis of intestine, part unspecified, without perforation or abscess without bleeding; I25.10 Atherosclerotic heart disease of native coronary artery without angina pectoris | CPT/HCPCS: 74177 ==

== ENCOUNTER 2025-06-16 08:05 | Inpatient (IN) | payer MEDICAID, SELFPAY ==
[2025-06-16] VITALS (9 sets, daily range): BP systolic 121–161; BP diastolic 65–79; PULSE 66–100; RESP 14–20; TEMP 36.4–39.3; O2SAT 97–99; BMI 34.1
--- NOTE | ~2025-06-16 | MR_ITS ---
CLINICAL HISTORY: weakness, asess for demyelination MR cervical spine with and without contrast Comparison: CT/SR - CT CERVICAL SPINE WO IV CON - 05/25/25 20:[address]/SD/SR - CT CERVICAL SPINE WO IV CON - 12/10/24 11:[address]/REG/SD/SR - CT CERVICAL SPINE WITHOUT IV CONTRAST - 10/02/22 17:[address]/REG/SD/SR - CT CERVICAL SPINE WITHOUT IV CONTRAST - 07/28/22 15:31 EST Findings: Normal alignment. Mild multilevel Modic type 2 change. Otherwise normal marrow signal without abnormal enhancement. The prevertebral and paraspinous musculature are within normal limits. The cervical cord is normal in size and signal without abnormal enhancement. C2/C3: 2 mm disc bulge. Mild facet joint and ligamentum flavum hypertrophy. Mild central canal stenosis. No foraminal stenosis. C3/C4: 4 mm disc bulge. Mild facet joint and ligamentum flavum hypertrophy. Moderate central canal stenosis. No right and mild left foraminal stenosis. C4/C5: 5 mm disc protrusion. Mild facet joint and ligamentum flavum hypertrophy. Moderate central canal stenosis. Mild right and no left foraminal stenosis. C5/C6: 3 mm disc bulge. [id number] facet joint and ligamentum flavum hypertrophy. Moderate central canal stenosis. Vfld-si-[id number] bilateral foraminal stenosis. C6/C7: 3 mm disc bulge. Myam-xc-vnbxaoot facet joint and ligamentum flavum hypertrophy. Mild central canal stenosis. Mild right and moderate left foraminal stenosis. Impression: No evidence of a demyelinating process. Multilevel degenerative change, detailed above which is most prominent C3/C4 through C5/C6 with moderate central canal stenosis. This document has been electronically signed by: Lily Lewis MD on 06/20/2025 14:16:26
--- NOTE | ~2025-06-16 | XR_ITS ---
EXAMINATION: XR CHEST 2 VIEWS HISTORY: ETOH, vomiting COMPARISON: Comparison is made with the prior examination dated 04/10/2025. FINDINGS: AP and lateral views of the chest are submitted. The lungs are expanded and clear. There is no pleural effusion, pneumothorax, or pulmonary vascular congestion. The heart is enlarged. There is degenerative disc disease of the spine. XR/XR chest 2V IMPRESSION: Cardiomegaly. No acute cardiopulmonary abnormality. Electronically signed by: Eric Juarez MD 06/16/2025 10:19 AM EDT
--- NOTE | ~2025-06-16 | MR_ITS ---
CLINICAL HISTORY: weakness, asess for demyelination MR of the brain with and without contrast Comparison: CT/SR - CT HEAD/BRAIN WO IV CON - 05/25/25 20:[address]/REG/SR - CT HEAD/BRAIN WO IV CON - 04/25/25 07:[address]/REG/MI/SR - CT HEAD/BRAIN WO IV CON - 12/10/24 11:14 EDT Findings: No acute infarction, hemorrhage, mass-effect or herniation. No abnormal enhancement. No hydrocephalus. Increased signal intensity is seen in the deep and periventricular white matter on the T2/FLAIR sequences, which most likely represents the sequela of mild chronic small vessel ischemic disease. No extra-axial fluid collection or mass. Unremarkable sella. Intact flow voids. Normal orbits. Mild mucosal thickening in the maxillary sinuses bilateral ethmoid air cells. Otherwise clear paranasal sinuses and mastoid air cells. Unremarkable osseous structures. Impression: No definitive evidence of a demyelinating process. Mild amount of increased signal in the periventricular white matter on the FLAIR/T2 weighted images is favored to be the sequela of mild chronic small-vessel ischemic disease rather than a demyelinating process. This document has been electronically signed by: Lily Lewis MD on 06/20/2025 14:21:23
--- NOTE | ~2025-06-16 | XR_ITS ---
EXAMINATION: XR SHOULDER, LEFT CLINICAL INFORMATION: anterior shoulder pain/limited ROM COMPARISON: X-ray 09/11/2024 TECHNIQUE: Three views of the left shoulder. FINDINGS: Mild acromioclavicular arthritis. Redemonstrated mild superior positioning of the distal clavicle with respect to the acromion. No acute fracture or dislocation. Glenohumeral joint space is maintained. No abnormal soft tissue calcification. XR/XR shoulder LT min 2V IMPRESSION: No acute findings. Additional findings as detailed above. Electronically signed by: Nithin Chaudhari MD 06/21/2025 11:23 AM JASVIR BUNDY
--- NOTE | ~2025-06-16 | XR_ITS ---
EXAMINATION: XR TIBIA FIBULA 2 VIEWS RIGHT HISTORY: overlying infection r/o osteo COMPARISON: Comparison is made with the prior examination dated 06/04/2019. FINDINGS: AP and lateral views of the right tibia and fibula are submitted. Again seen is cortical thickening involving the anterior aspect of the mid tibia. No lytic destruction is seen. There is no fracture or dislocation. The visualized knee and ankle joint spaces are preserved. There is diffuse soft tissue swelling. XR/XR tibia fibula RT 2V IMPRESSION: Diffuse soft tissue swelling. Chronic cortical thickening involving the anterior aspect of the tibia. No plain film evidence of osteomyelitis. If this remains a clinical concern, three-phase bone scan or MRI could be performed. Electronically signed by: Eric Juarez MD 06/16/2025 02:27 PM EDT
--- NOTE | ~2025-06-16 | CT_ITS ---
EXAMINATION: CT ABDOMEN AND PELVIS WITH CONTRAST CLINICAL INFORMATION: N/V/D COMPARISON: CT of abdomen/pelvis on June 01, 2025 and August 13, 2023 TECHNIQUE: Multidetector volumetric images were obtained from the superior aspect of the liver through the pubic symphysis following administration 85 mL of Omnipaque 350 intravenous contrast. Sagittal and coronal reformatted images were obtained on the technologist's workstation. Oral contrast: No This CT examination was performed using dose optimization techniques as appropriate, variously including the following: *Automated exposure control *Adjustment of mA and/or kV according to patient size (this includes techniques or standardized protocols for targeted exams where dose is matched to indication/reason for exam; i.e. extremities or head) *Use of iterative reconstruction technique FINDINGS: LOWER CHEST: Minimal dependent atelectasis in the left lung base. No pleural effusion. LIVER: Hepatomegaly measuring 19.9 cm. No focal lesions. GALLBLADDER AND BILIARY TREE: Partially contracted gallbladder. No gallstones. No biliary ductal dilatation. PANCREAS: No focal lesions or ductal dilatation. SPLEEN: No splenomegaly. No focal lesions. ADRENAL GLANDS: No nodules. KIDNEYS AND URETERS: Evidence of prior partial nephrectomy of the lower pole of the left kidney with similar adjacent postoperative changes. No hydronephrosis or renal stones on either side. Similar vaguely seen hypodense lesion in the midpole of the left kidney (3:27/90). GASTROINTESTINAL TRACT: Small hiatal hernia. Small duodenal diverticulum. No bowel dilatation to suggest obstruction. Sigmoid colonic diverticulosis. PERITONEUM/RETROPERITONEUM: The overall appearance of the mesenteric haziness that also extends into the region of the bao hepatis appears mildly more prominent than previous examination on June 01, 2025. Chronic small subcentimeter nodularities along the posterior hepatic surface (3:25/90 and 3:21/90), similar to 2022. No free fluid. No free air. ABDOMINAL WALL: No significant hernia is appreciated. LYMPH NODES: Multiple chronic prominent lymph nodes in bilateral inguinal regions. VASCULAR: No abdominal aortic aneurysm. Atherosclerotic disease with calcifications. PELVIC VISCERA: Partially distended urinary bladder. Normal size prostate gland. OSSEOUS STRUCTURES: No acute findings. CT/CT abdomen pelvis w IV con IMPRESSION: 1. Mildly more prominent chronic findings suggestive of inflammatory changes in the mesentery, that also extends into the region of bao hepatis. 2. Additional chronic findings are unchanged, including hepatomegaly, left partial nephrectomy, probably inguinal lymph nodes and sigmoid colonic diverticulosis. Electronically signed by: Alissa Malone MD 06/16/2025 11:38 AM EDT
--- NOTE | 2025-06-16 08:23 | ED.NAVMDI ---
HPI - Nausea/Vomiting/Diarrhea General Chief complaint: Nausea/Vomiting/Diarrhea Stated complaint: severe diarrhea 6 days, not eating Time Seen by Provider: 06/16/25 08:15 Source: patient and EMS Mode of arrival: EMS Limitations: no limitations History of Present Illness ED Provider: MOUNA CASANOVA PA-C HPI Narrative: 64 year old male with pmhx significant for HTN, anemia, CKD, alcohol use disorder, venous stasis ulcer presents to the ED today for evaluation of nausea, vomiting, diarrhea, and abdominal cramping x 6 days. Endorses associated myalgias, headache, generalized weakness and joint pain. Admits to poor PO intake, only tolerating sips of water. He has been unable to take his home meds due to his vomiting. Admits to numerous bowel movements daily, his last BM was at approximately 0200 this morning. Denies hematochezia, bright red blood per rectum, melena, hematemesis. Admits to consuming a lobster roll with mayonnaise that he purchased on sale. No known tick/insect bites. No recent antibiotics. Patient endorses daily etoh consumption. His last etoh drink was 6 days ago. Endorses history of alcohol withdrawals however denies history of alcohol withdrawal seizures. Related Data Home Medications ?Medication ?Instructions ?Recorded ?Confirmed allopurinol 300 mg tablet 300 mg PO DAILY 07/29/24 06/16/25 ascorbate calcium (vitamin C) 500 500 mg PO BID 07/29/24 06/16/25 mg tablet cholecalciferol (vitamin D3) 50 50 mcg PO DAILY 10/16/24 06/16/25 mcg (2,000 unit) tablet (Vitamin D3) ferrous sulfate 325 mg (65 mg 325 mg PO DAILY 10/16/24 06/16/25 iron) tablet,delayed release pyridoxine (vitamin B6) 50 mg 50 mg PO DAILY 10/16/24 06/16/25 tablet (Vitamin B-6) thiamine HCl (vitamin B1) 100 mg 100 mg PO DAILY 10/16/24 06/16/25 tablet (Vitamin B-1) acetaminophen 325 mg tablet 650 mg PO Q4H PRN Pain (Scale 01/22/25 06/16/25 Score 4-6) metoprolol succinate 25 mg 25 mg PO DAILY 01/22/25 06/16/25 tablet,extended release 24 hr Previous Rx's ?Medication ?Instructions ?Recorded magnesium oxide 400 mg (241.3 mg 400 mg PO DAILY #10 tabs 04/25/23 magnesium) tablet folic acid 1 mg tablet 1 mg PO DAILY #30 tabs 10/01/23 Allergies Allergy/AdvReac Type Severity Reaction Status Date / Time azithromycin (AZITHROMYCIN) Allergy Severe FACIAL Verified 06/16/25 08:12 SWELLING hydrochlorothiazide (HCTZ) Allergy Severe Facial Verified 06/16/25 08:12 Swelling Review of Systems Review of Systems: Yes all other systems are reviewed and are negative [facility] Past Medical History Attestation statement: The following information was validated with the patient. Source: old records reviewed and nursing notes reviewed Medical History Abdominal wall abscess at site of surgical wound CKD stage 3a, GFR 45-59 ml/min Colitis Renal mass Renal cell carcinoma Alcohol use disorder Hyperlipidemia Ascending aortic aneurysm Alcoholic steatohepatitis Seborrheic dermatitis DEBORAH (obstructive sleep apnea) History of rhabdomyolysis Hx of lower gastrointestinal bleeding Hx of sepsis History of DVT of lower extremity Chronic ulcer of leg Chronic venous stasis HTN (hypertension) Anemia Anemia Surgical History H/O partial nephrectomy Hx of colonoscopy Family History Family History Mother Dementia Maternal Grandmother Dementia Social History Social History Household Members: Family Household Members Other:: mother who has dementia Housing: House Housing Other:: 4 stairs to get into house. Pt lives in basement Do you presently have visiting nurse or other home services: Yes Alcohol intake: current Alcohol intake frequency: 3 or more drinks per day Alcohol type: hard liquor Comment: pt refused socks Patient Tobacco Use Status: Never used Tobacco Smoked in Last 30 Days: No Use of substances other than those prescribed or required for medical reasons: No Advance Directives: Yes Advance Directives on File: Yes Advance Directives Date on File: 04/13/22 Nutrition Risks: No Nutritional Risk service: No Current occupational status: disabled Physical Exam Vital Signs: Vital Signs: Last Vital Signs Temp 98.3 F 06/16/25 17:59 Pulse 80 06/16/25 20:32 Resp 15 06/16/25 20:32 BP 121/65 06/16/25 20:32 Pulse Ox 99 06/16/25 20:32 O2 Del Method Room Air 06/16/25 20:32 BMI result Body Mass Index 34.1 hypertensive, febrile General: covered in feces, unkempt Skin: Warm, dry, intact. No rashes or lesions. Head: Normocephalic, atraumatic. EENT: Hearing is intact b/l. Conjunctiva clear. PERRLA. EOM intact. Moist mucous membranes.? Neck: Supple without LAD Cardiac: Chest wall symmetric. RRR Lungs: Normal respiratory effort without accessory muscle use. CTA bilaterally Abdomen: soft, non-tender, non-distended. No rebound tenderness or guarding. Positive BS x4. Back: +stage 2 sacral pressure ulcer with blanchable erythema. no open wounds. No midline spinous or paraspinal tenderness. No step off deformity. Ext: +see photo of right lower leg below. chronic venous stasis changes Neuro: AOx3. Normal speech. Course Course Course Narrative: CBC without leukocytosis. normocytic anemia, h&h stable when compared to priors. hypomagnesemic to 1.5 likely related to chronic etoh abuse. no other acute electrolyte abnormality requiring intervention. no polly. liver function at baseline. cpk wnl. negative covid/flu testing. UA without infection. Lactic wnl. blood cultures pending. cxr without pneumonia. xr right tib/fib does not demonstrate osseous involvement concerning for osteomyelitis. CT a/p showing chronic, stable findings. CIWA 4 - IV versed ordered. Medicated with IV tylenol, zofran, IVF, and mag repletion. Concern for infectious diarrhea - possibly campylobacter infection given recent spoiled mayonnaise/ seafood. I have concern for associated reactive arthritis secondary to infection, given polyarthralgia. lyme/ tick testing pending as well. I spoke with the hospitalist HOUSE DECORATOR who agrees with admission for IV antibiotics/ further working up into febrile illness, including GI panel/cdiff testing as we have been unable to obtain a stool sample. levofloxacin ordered as patient has an allergy to azithromycin. Medications Administered Generic Name Dose Route Start Last Admin Trade Name Freq PRN Reason Stop Dose Admin Lactated Ringer's 1,000 mls @ 100 mls/hr 06/16/25 17:30 06/16/25 18:03 Lr IVCONT 100 mls/hr .Q10H PROMISE Administration Meropenem 1 gm 06/16/25 20:00 06/16/25 20:34 Meropenem 1 Gm Vial IVPUSH 1 gm Q8H PROMISE Administration Discontinued Medications Generic Name Dose Route Start Last Admin Trade Name Ivanq PRN Reason Stop Dose Admin Sodium Chloride 1,000 mls @ 999 mls/hr 06/16/25 09:15 06/16/25 11:30 Ns IV 06/16/25 10:15 Infused .Q1H1M PROMISE Infusion Magnesium Sulfate 2 gm in 50 mls @ 150 mls/hr 06/16/25 09:16 06/16/25 10:01 Magnesium Sulfate/H2o IV 06/16/25 09:35 Infused ONCE ONE Infusion Acetaminophen 1,000 mg in 100 mls @ 400 mls/hr 06/16/25 13:55 06/16/25 14:15 Ofirmev IV 06/16/25 14:09 Infused ONCE ONE Infusion Levofloxacin 750 mg in 150 mls @ 100 mls/hr 06/16/25 15:47 06/16/25 17:50 Levaquin IV 06/16/25 17:16 Infused ONCE ONE Infusion Iohexol 100 ml 06/16/25 10:36 06/16/25 10:43 Iohexol 350 Mg/Ml 100 Ml Infus..Btl IV 06/16/25 10:37 85 ml ONCE ONE Administration Loperamide HCl 2 mg 06/16/25 13:05 06/16/25 13:47 Loperamide Hcl 2 Mg Capsule PO 06/16/25 13:06 2 mg ONCE ONE Administration Midazolam HCl 2 mg 06/16/25 09:07 06/16/25 09:41 Midazolam Hcl 2 Mg/2 Ml Vial IVPUSH 06/16/25 09:08 2 mg ONCE ONE Administration Ondansetron HCl 4 mg 06/16/25 09:06 06/16/25 09:41 Ondansetron Hcl 4 Mg/2 Ml Vial IVPUSH 06/16/25 09:07 4 mg ONCE ONE Administration Medical Decision Making Medical Decision Making MDM Narrative: 64 year old male with pmhx significant for HTN, anemia, CKD, alcohol use disorder, venous stasis ulcer presents to the ED today for evaluation of nausea, vomiting, diarrhea, and abdominal cramping x 6 days. Differential diagnosis includes anemia, electrolyte abnormality, dehydration, POLLY, gastroenteritis, colitis, infectious diarrheal illness, viral syndrome, etoh abuse, etoh withdrawal, pneumonia, UTI, lyme/tick bourne disease Plan for labs, UA, imaging Differential Diagnosis Differential Diagnoses: The differential diagnosis associated with the presentation includes as above. Admission/Observation Consideration of admission/observation: Escalation of care including admission/observation considered patient admitted to medicine for management of acute infectious diarrheal illness Consult Healthcare Provider Management of the patient was discussed with: Hospitalist (nalini vieira) Lab Data MDM Lab Attestation statement: I reviewed the patient's lab results. as above. 06/16/25 08:45 06/16/25 09:46 Labs: Lab Results 06/16/25 06/16/25 06/16/25 Range/Units 08:45 09:46 11:15 WBC 9.7 (4.8-10.8) X10*3/uL RBC 3.11 L (4.60-5.80) X10*6/uL Hgb 9.2 L (14.0-18.0) g/dl Hct 28.3 L (42.0-52.0) % MCV 91.0 (80.0-98.0) fL MCH 29.6 (27.0-33.0) pg MCHC 32.5 (31.0-36.0) g/dl RDW 17.4 H (11.0-16.0) % Plt Count 107 L (160-400) X10*3/uL MPV 9.2 L (9.4-12.4) fL Immature Gran % (Auto) 0.4 (0.0-0.4) % Neut % (Auto) 62.2 (45-73) % Lymph % (Auto) 24.7 (20-40) % [place]ne % (Auto) 8.6 (2-11) % Eos % (Auto) 3.5 (0-4) % Baso % (Auto) 0.6 (0-2) % Lymph # (Auto) 2.4 (1.2-4.9) X10*3/uL [place] # (Auto) 0.8 (0.1-1.2) X10*3/uL Eos # (Auto) 0.3 (0.0-0.4) X10*3/uL Baso # (Auto) 0.1 (0.0-0.2) X10*3/uL Abs Immat Gran (auto) 0.04 H (0.00-0.03) X10*3/uL Absolute Neuts (auto) 6.1 (2.0-8.3) x10*3/uL Absolute Nucleated RBC 0.000 (0.0-0.012) X10*3/uL Nucleated RBC % (auto) 0.0 (0.0-0.2) /100WBC Sodium 140 (135-145) mmol/L Potassium 4.5 (3.3-5.1) mmol/L Chloride 107 (96-108) mmol/L Carbon Dioxide 22 (22-29) mmol/L Anion Gap 16 (12-20) BUN 15 (9-16) mg/dL Creatinine 0.99 (0.5-1.4) mg/dL Estim Creat Clear Calc 85.5 Estimated GFR > 60 Random Glucose 81 (60-115) mg/dL Lactic Acid (0.5-2.0) mmol/L Calcium 8.7 D (8.4-10.2) mg/dL Magnesium 1.2 L* (1.6-2.6) mg/dL Total Bilirubin 1.4 H (0.0-1.0) mg/dL Direct Bilirubin 0.8 H (0.0-0.5) mg/dL AST 23 (5-37) U/L ALT < 6 (0-40) U/L Alkaline Phosphatase 105 (39-117) U/L Total Creatine Kinase 39 (38-174) U/L Total Protein 7.2 (6.5-8.0) g/dL Albumin 3.7 (3.5-5.0) g/dL Lipase 14 (8-78) U/L Urine Color Dark Yellow Urine Appearance Clear Urine pH 6.5 (5.0-9.0) Ur Specific [place] 1.015 (1.005-1.025) Urine Protein Trace (Neg-Trace) mg/dL Urine Glucose (UA) Negative (Negative) mg/dL Urine Ketones 15 (Negative) mg/dL Urine Blood Negative (Negative) Urine Nitrite Negative (Negative) Ur Leukocyte Esterase Small (1+) H (Negative) Urine RBC 0-2 (0-2) /HPF Urine WBC 0-5 (0-5) /HPF Ur Squamous Epith Cells 0-2 (0-2) /HPF Urine Bacteria None Seen (None Seen) Hyaline Casts 0-2 (0-2) /LPF Urine Opiates Screen Not Detected (Not Detect) Ur Buprenorphine Scrn Not Detected (Not Detect) ng/mL Ur Oxycodone Screen Not Detected (Not Detect) ng/mL Urine Methadone Screen Not Detected (Not Detect) ng/mL Urine Fentanyl Screen Not Detected (Not Detect) Ur Barbiturates Screen Not Detected (Not Detect) Ur Phencyclidine Scrn Not Detected (Not Detect) Ur Amphetamines Screen Not Detected (Not Detect) U Benzodiazepines Scrn POSITIVE H (Not Detect) Urine Cocaine Screen Not Detected (Not Detect) U Marijuana (THC) Screen Not Detected (Not Detect) Ethyl Alcohol < 10 mg/dL COVID-19 (TORSTEN) Negative (Negative) COVID-19 Clin Com See Note Influenza Type A (NADIYA) Negative (Negative) Influenza Type B (NADIYA) Negative (Negative) Influenza A & B Note See Note 06/16/25 06/16/25 Range/Units 13:49 14:09 WBC (4.8-10.8) X10*3/uL RBC (4.60-5.80) X10*6/uL Hgb (14.0-18.0) g/dl Hct (42.0-52.0) % MCV (80.0-98.0) fL MCH (27.0-33.0) pg MCHC (31.0-36.0) g/dl RDW (11.0-16.0) % Plt Count (160-400) X10*3/uL MPV (9.4-12.4) fL Immature Gran % (Auto) (0.0-0.4) % Neut % (Auto) (45-73) % Lymph % (Auto) (20-40) % [place]ne % (Auto) (2-11) % Eos % (Auto) (0-4) % Baso % (Auto) (0-2) % Lymph # (Auto) (1.2-4.9) X10*3/uL [place] # (Auto) (0.1-1.2) X10*3/uL Eos # (Auto) (0.0-0.4) X10*3/uL Baso # (Auto) (0.0-0.2) X10*3/uL Abs Immat Gran (auto) (0.00-0.03) X10*3/uL Absolute Neuts (auto) (2.0-8.3) x10*3/uL Absolute Nucleated RBC (0.0-0.012) X10*3/uL Nucleated RBC % (auto) (0.0-0.2) /100WBC Sodium (135-145) mmol/L Potassium (3.3-5.1) mmol/L Chloride (96-108) mmol/L Carbon Dioxide (22-29) mmol/L Anion Gap (12-20) BUN (9-16) mg/dL Creatinine (0.5-1.4) mg/dL Estim Creat Clear Calc Estimated GFR Random Glucose (60-115) mg/dL Lactic Acid 0.6 (0.5-2.0) mmol/L Calcium (8.4-10.2) mg/dL Magnesium 1.6 (1.6-2.6) mg/dL Total Bilirubin (0.0-1.0) mg/dL Direct Bilirubin (0.0-0.5) mg/dL AST (5-37) U/L ALT (0-40) U/L Alkaline Phosphatase (39-117) U/L Total Creatine Kinase (38-174) U/L Total Protein (6.5-8.0) g/dL Albumin (3.5-5.0) g/dL Lipase (8-78) U/L Urine Color Urine Appearance Urine pH (5.0-9.0) Ur Specific [place] (1.005-1.025) Urine Protein (Neg-Trace) mg/dL Urine Glucose (UA) (Negative) mg/dL Urine Ketones (Negative) mg/dL Urine Blood (Negative) Urine Nitrite (Negative) Ur Leukocyte Esterase (Negative) Urine RBC (0-2) /HPF Urine WBC (0-5) /HPF Ur Squamous Epith Cells (0-2) /HPF Urine Bacteria (None Seen) Hyaline Casts (0-2) /LPF Urine Opiates Screen (Not Detect) Ur Buprenorphine Scrn (Not Detect) ng/mL Ur Oxycodone Screen (Not Detect) ng/mL Urine Methadone Screen (Not Detect) ng/mL Urine Fentanyl Screen (Not Detect) Ur Barbiturates Screen (Not Detect) Ur Phencyclidine Scrn (Not Detect) Ur Amphetamines Screen (Not Detect) U Benzodiazepines Scrn (Not Detect) Urine Cocaine Screen (Not Detect) U Marijuana (THC) Screen (Not Detect) Ethyl Alcohol mg/dL COVID-19 (TORSTEN) (Negative) COVID-19 Clin Com Influenza Type A (NADIYA) (Negative) Influenza Type B (NADIYA) (Negative) Influenza A & B Note Independent Interpretation I performed an independent interpretation of an: Plain X-Ray and CT Scan Interpretation: cxr without infiltrate or consolidation xr tib/fib without osseous abnormality ct a/p without bowel obstruction Radiology Impression Discussion of test interpretation with radiology: I have reviewed the radiologist's reading. Radiologist Impression: Procedure(s): XR chest 2V Accession Number(s): [id number] cc: Mouna Casanova; Samantha Gonzales MD~ Reason for Exam: etoh, vomiting EXAMINATION: XR CHEST 2 VIEWS HISTORY: ETOH, vomiting COMPARISON: Comparison is made with the prior examination dated 04/10/2025. FINDINGS: AP and lateral views of the chest are submitted. The lungs are expanded and clear. There is no pleural effusion, pneumothorax, or pulmonary vascular congestion. The heart is enlarged. There is degenerative disc disease of the spine. XR/XR chest 2V IMPRESSION: Cardiomegaly. No acute cardiopulmonary abnormality. Electronically signed by: Eric Juarez MD 06/16/2025 10:19 AM EDT Procedure(s): XR tibia fibula RT 2V Accession Number(s): [id number] cc: Mouna Casanova; Samantha Gonzales MD~ Reason for Exam: overlying infection r/o osteo EXAMINATION: XR TIBIA FIBULA 2 VIEWS RIGHT HISTORY: overlying infection r/o osteo COMPARISON: Comparison is made with the prior examination dated 06/04/2019. FINDINGS: AP and lateral views of the right tibia and fibula are submitted. Again seen is cortical thickening involving the anterior aspect of the mid tibia. No lytic destruction is seen. There is no fracture or dislocation. The visualized knee and ankle joint spaces are preserved. There is diffuse soft tissue swelling. XR/XR tibia fibula RT 2V IMPRESSION: Diffuse soft tissue swelling. Chronic cortical thickening involving the anterior aspect of the tibia. No plain film evidence of osteomyelitis. If this remains a clinical concern, three-phase bone scan or MRI could be performed. Electronically signed by: Eric Juarez MD 06/16/2025 02:27 PM EDT RP Procedure(s): CT abdomen pelvis w IV con Accession Number(s): [id number] cc: Mouna Casanova; Samantha Gonzales MD~ Report Number: [id number]: Total DLP = 687.00 mGy-cm Reason for Exam: N/V/D EXAMINATION: CT ABDOMEN AND PELVIS WITH CONTRAST CLINICAL INFORMATION: N/V/D COMPARISON: CT of abdomen/pelvis on June 01, 2025 and August 13, 2023 TECHNIQUE: Multidetector volumetric images were obtained from the superior aspect of the liver through the pubic symphysis following administration 85 mL of Omnipaque 350 intravenous contrast. Sagittal and coronal reformatted images were obtained on the technologist's workstation. Oral contrast: No This CT examination was performed using dose optimization techniques as appropriate, variously including the following: *Automated exposure control *Adjustment of mA and/or kV according to patient size (this includes techniques or standardized protocols for targeted exams where dose is matched to indication/reason for exam; i.e. extremities or head) *Use of iterative reconstruction technique FINDINGS: LOWER CHEST: Minimal dependent atelectasis in the left lung base. No pleural effusion. LIVER: Hepatomegaly measuring 19.9 cm. No focal lesions. GALLBLADDER AND BILIARY TREE: Partially contracted gallbladder. No gallstones. No biliary ductal dilatation. PANCREAS: No focal lesions or ductal dilatation. SPLEEN: No splenomegaly. No focal lesions. ADRENAL GLANDS: No nodules. KIDNEYS AND URETERS: Evidence of prior partial nephrectomy of the lower pole of the left kidney with similar adjacent postoperative changes. No hydronephrosis or renal stones on either side. Similar vaguely seen hypodense lesion in the midpole of the left kidney (3:). GASTROINTESTINAL TRACT: Small hiatal hernia. Small duodenal diverticulum. No bowel dilatation to suggest obstruction. Sigmoid colonic diverticulosis. PERITONEUM/RETROPERITONEUM: The overall appearance of the mesenteric haziness that also extends into the region of the bao hepatis appears mildly more prominent than previous examination on June 01, 2025. Chronic small subcentimeter nodularities along the posterior hepatic surface (3:25/90 and 3:21/90), similar to 2022. No free fluid. No free air. ABDOMINAL WALL: No significant hernia is appreciated. LYMPH NODES: Multiple chronic prominent lymph nodes in bilateral inguinal regions. VASCULAR: No abdominal aortic aneurysm. Atherosclerotic disease with calcifications. PELVIC VISCERA: Partially distended urinary bladder. Normal size prostate gland. OSSEOUS STRUCTURES: No acute findings. CT/CT abdomen pelvis w IV con IMPRESSION: 1. Mildly more prominent chronic findings suggestive of inflammatory changes in the mesentery, that also extends into the region of bao hepatis. 2. Additional chronic findings are unchanged, including hepatomegaly, left partial nephrectomy, probably inguinal lymph nodes and sigmoid colonic diverticulosis. Electronically signed by: Alissa Malone MD 06/16/2025 11:38 AM EDT Independent Historian Clinical information obtained from an independent historian. History obtained from or confirmed by: EMS External Record Review External record reviewed: Inpatient record Prescription Management I considered prescription management with: Pain Medication and Antibiotic Chronic Conditions Patient?s care impacted by: Hypertension Social Determinants Patient?s care significantly limited by Social Determinants of Health including: Other Social Determinant of Health Critical Care Time Critical Care Time Critical Care Time: Yes Total Critical Care Time: 50 Attestation: Critical care time in the amount of 50 minutes has been provided to the patient in terms of direct patient care, frequent reevaluation, consultation with hospitalist, review and interpretation of medical data and results, and management of potentially life-threatening conditions. This is all outside of any medical procedures. Discharge Plan Discharge Clinical Impression: Acute infectious diarrhea, Hypomagnesemia, Alcohol withdrawal Patient Disposition: Admitted As Inpatient
[2025-06-16 08:52] LABS: MANUAL DIFF FLAG NO
[2025-06-16 08:58] LABS: Hematocrit 28.3 % (42.0-52.0); Hemoglobin 9.2 g/dl (14.0-18.0); Imm Gran Abs Auto 0.04 X10*3/uL (0.00-0.03); Imm Gran Pct Auto 0.4 % (0.0-0.4); Lymphocytes Absolute Auto 2.4 X10*3/uL (1.2-4.9); Mean Corpuscular HGB Conc 32.5 g/dl (31.0-36.0); Mean Corpuscular Hemoglobin 29.6 pg (27.0-33.0); Mean Corpuscular Volume 91.0 fL (80.0-98.0); NRBC Abs Auto 0.000 X10*3/uL (0.0-0.012); NRBC Pct Auto 0.0 /100WBC (0.0-0.2); Platelet Count 107 X10*3/uL (160-400); Red Blood Count 3.11 X10*6/uL (4.60-5.80); White Blood Count 9.7 X10*3/uL (4.8-10.8)
--- NOTE | 2025-06-16 09:07 | PC.NURSE ---
patient a&ox3, walks with rolling walker, pt states hes had continuous diarrhea saturday, saturday and today- at 2-3am this morning he couldnt take cleaning himself up anymore so stopped doing so, pt has stool from his abdomen down to his shoes, all clothes removed and bagged as they were soiled with stool. iv inserted, labs drawn, swabs obtained, pt has intact dressing to left flank, RLE dressing was taken down- pictures obtained and redressed by student working with provider, additionally it was noted pt had shearing to his buttocks- buttocks blanching red, bilateral thighs and groin area blanching red as well. After a period of discussion pt admitted to drinking vodka daily and stated his last drink was on - sat/sat/sun he had nausea/vomiting then sat/ and today he had diarrhea that began. denies smoking/drugs. CIWA score was a 4 scored for tremors only at this time. Pt states that he and his family live together in 1 home, he lives in the basement in law apartment, his sister is on the 1st floor and mother lives on the 2nd floor. Pt states he helps to care for his mother along with his sister whom he states works at [employer] [place].
[2025-06-16 09:15] LABS: IDNOW Serial# 152EDE1D; Influenza B2 Negative (Negative)
[2025-06-16 09:16] LABS: Alanine Aminotransferase < 6 U/L (0-40); Albumin Level 3.7 g/dL (3.5-5.0); Alkaline Phosphatase 105 U/L (39-117); Aspartate Amino Transferase 23 U/L (5-37); COVID-19 Test Negative (Negative); IDNOW Serial# 16C4AD1C; Lipase 14 U/L (8-78); Magnesium 1.2 mg/dL (1.6-2.6); Total Protein 7.2 g/dL (6.5-8.0)
[2025-06-16] MEDS: Magnesium Sulfate/H2O 2 GM/50 ML PIGGYBACK IV (09:41)
--- NOTE | 2025-06-16 09:51 | PC.NURSE ---
ivf hung per order, pt medicated per order, surveillance system monitor intact, call piña within reach, plan of care ongoing
[2025-06-16 10:10] LABS: Anion Gap 16 (12-20); Blood Urea Nitrogen 15 mg/dL (9-16); Calcium 8.7 mg/dL (8.4-10.2); Carbon Dioxide 22 mmol/L (22-29); Chloride 107 mmol/L (96-108); Creatinine Clr Calc Pharmacy 85.5; Estimated Glomerular Filt Rate > 60; Potassium 4.5 mmol/L (3.3-5.1); Sodium 140 mmol/L (135-145)
[2025-06-16] MEDS: iohexoL 350 MG/ML 100 ML INFUS..BTL IV (10:43)
--- NOTE | 2025-06-16 10:53 | PC.NURSE ---
IVF pts ivf continue to run slowly
[2025-06-16 11:23] LABS: Appearance Urine Clear; Glucose Urine UA Negative (Negative); PH 6.5 (5.0-9.0); Specific Gravity - Urine 1.015 (1.005-1.025); UMIC TRIGGER UACC YES
[2025-06-16 11:29] LABS: UACC Culture Trigger YES
[2025-06-16 11:34] LABS: Cannabinoid Screen Urine Not Detected (Not Detect)
[2025-06-16 14:15] LABS: Magnesium 1.6 mg/dL (1.6-2.6)
--- NOTE | 2025-06-16 14:20 | PC.NURSE ---
labs drawn, IV acetaminophen hung, pt went to radiology
--- NOTE | 2025-06-16 16:22 | PC.NURSE ---
iv abx started per order
--- NOTE | 2025-06-16 17:42 | PHA.MEDREC ---
Addendum entered by Ally Ray RPh 06/16/25 18:24: Reviewed by [facility] Original Note: Pharmacy Consult ? Medication Reconciliation Pharmacy has completed the medication reconciliation. Spoke to patient to confirm med list. Patient states he hasn't had any of his medications in over 5 days. Patient is no longer taking Multivitamin, Rosuvastatin 5 mg and Torsemide 20 mg. Patient confirmed he still takes Allopurinol 300 mg and Metoprolol succinate 25 mg, however there is no claim history.
[2025-06-16] MEDS: Lactated Ringers 1,000 ML 100 ML IVCONT (18:03)
--- NOTE | 2025-06-16 19:28 | P.HPHOSP_ITS ---
History of Present Illness Date of Service: 06/16/25 Attending physician on admission: Sukh Smart Chief Complaint: diarrhea 64-year-old male who presented to the hospital complaining of nonbloody diarrhea that began on Saturday, about 5-6 episodes per day, associated with nausea, subjective fevers and incontinence. Patient states that he had a lobster roll with mayonnaise on night that was on sale, subsequently the following day began with diarrhea. Concomitantly, the patient states he has chronic right lower extremity wound being treated with wound care, and in these past couple of days, has been soiling of the wound from incontinence. On admission CT abdomen and pelvis with inflammatory changes and mesentery, started on levofloxacin and given IV fluids. Review of Systems 2 Review of Systems: 14 point ROS obtained, negative except a s stated above. [facility] Medical History Abdominal wall abscess at site of surgical wound CKD stage 3a, GFR 45-59 ml/min Colitis Renal mass Renal cell carcinoma Alcohol use disorder Hyperlipidemia Ascending aortic aneurysm Alcoholic steatohepatitis Seborrheic dermatitis DEBORAH (obstructive sleep apnea) History of rhabdomyolysis Hx of lower gastrointestinal bleeding Hx of sepsis History of DVT of lower extremity Chronic ulcer of leg Chronic venous stasis HTN (hypertension) Anemia Anemia Family History Mother Dementia Maternal Grandmother Dementia Surgical History H/O partial nephrectomy Hx of colonoscopy Social History Household Members: Family Household Members Other:: mother who has dementia Housing: House Housing Other:: 4 stairs to get into house. Pt lives in basement Do you presently have visiting nurse or other home services: Yes Alcohol intake: current Alcohol intake frequency: 3 or more drinks per day Alcohol type: hard liquor Comment: pt refused socks Patient Tobacco Use Status: Never used Tobacco Smoked in Last 30 Days: No Use of substances other than those prescribed or required for medical reasons: No Advance Directives: Yes Advance Directives on File: Yes Advance Directives Date on File: 04/13/22 Nutrition Risks: No Nutritional Risk service: No Current occupational status: disabled Meds Allergies Allergy/AdvReac Type Severity Reaction Status Date / Time azithromycin (AZITHROMYCIN) Allergy Severe FACIAL Verified 06/16/25 08:12 SWELLING hydrochlorothiazide (HCTZ) Allergy Severe Facial Verified 06/16/25 08:12 Swelling Active Medications: Current Medications Acetaminophen (Acetaminophen 325 Mg Tablet) 650 mg PO Q4H PRN PRN Reason: Pain (Scale Score 4-6) Allopurinol (Allopurinol 300 Mg Tablet) 300 mg PO DAILY [facility] Calcium Carbonate (Calcium Carbonate 750 Mg Tab.Chew) 750 mg PO Q4H PRN PRN Reason: Heartburn Folic Acid (Folic Acid 1 Mg Tablet) 1 mg PO DAILY [facility] Hydralazine HCl (Hydralazine Hcl 20 Mg/Ml Vial) 5 mg IVPUSH Q6H PRN; Protocol PRN Reason: SBP > 160 Hydromorphone HCl (Hydromorphone Hcl 0.5 Mg/0.5 Ml Syringe) 0.5 mg IVPUSH Q6H PRN; Protocol PRN Reason: Pain, Severe (Pain Scale 7-10) Lactated Ringer's (Lr) 1,000 mls @ 100 mls/hr IVCONT .Q10H [facility] Last Admin: 06/16/25 18:03 Dose: 100 mls/hr Magnesium Hydroxide (Milk Of Magnesia 30 Ml Oral.Susp) 30 ml PO DAILY PRN PRN Reason: Constipation Magnesium Oxide (Magnesium Oxide 400 Mg Tablet) 400 mg PO DAILY [facility] Melatonin (Melatonin 3 Mg Tablet) 6 mg PO BEDTIME PRN PRN Reason: Insomnia Meropenem (Meropenem 1 Gm Vial) 1 gm IVPUSH Q8H [facility] Metoprolol Succinate (Metoprolol Succinate Er 25 Mg Tab.Er.24h) 25 mg PO DAILY [facility]; Protocol Ondansetron HCl (Ondansetron Hcl 4 Mg/2 Ml Vial) 4 mg IVPUSH Q8H PRN PRN Reason: Nausea and Vomiting Pyridoxine HCl (Pyridoxine Hcl (Vitamin B6) 50 Mg Tablet) 50 mg PO DAILY [facility] Sodium Chloride (0.9 % Sodium Chloride Flush 3 Ml Syringe) 3 ml IVFLUSH QSHIFT [facility] Thiamine HCl (Thiamine Hcl 100 Mg Tablet) 100 mg PO DAILY [facility] Home Medications ?Medication ?Instructions ?Recorded ?Confirmed ?Last Taken ?Type allopurinol 300 mg tablet 300 mg PO DAILY 07/29/24 3 Days Ago History ~01/19/25 ascorbate calcium (vitamin C) 500 500 mg PO BID 06/16/25 3 Days Ago History mg tablet ~01/19/25 cholecalciferol (vitamin D3) 50 50 mcg PO DAILY 06/16/25 3 Days Ago History mcg (2,000 unit) tablet (Vitamin ~11/10 D3) ferrous sulfate 325 mg (65 mg 325 mg PO DAILY 10/16/24 06/16/25 3 Days Ago History iron) tablet,delayed release ~ 5 pyridoxine (vitamin B6) 50 mg 50 mg PO DAILY 10/16/24 06/16/25 3 Days Ago History tablet (Vitamin B-6) ~01/19/25 thiamine HCl (vitamin B1) 100 mg 100 mg PO DAILY 10/1606/16/25 3 Days Ago History tablet (Vitamin B-1) ~01/19/25 acetaminophen 325 mg tablet 650 mg PO Q4H PRN Pain (Sc minerva 01/22/25 06/16/25 Unknown History Score 4-6) metoprolol succinate 25 mg 25 mg PO DAILY 01/22/25 Unknown History tablet,extended release 24 hr Physical Exam 2 Vital Signs and Narrative: Vital Signs: Last Vital Signs Temp 98.3 F 06/16/25 17:59 Pulse 66 06/16/25 17:59 Resp 14 06/16/25 17:59 BP 147/72 H 06/16/25 17:59 Pulse Ox 97 06/16/25 17:59 O2 Del Method Room Air 06/16/25 17:59 BMI result Body Mass Index 34.1 General: AxOx3, No acute distress Head: AT/NC ENT: Dry mucous membranes Neck: supple CVS; RRR, S1 S2 normal Lungs: Clear bilateral breath sounds, no wheezes or crackles Abd: Soft non tender, non distended Ext: no calf tenderness MSK: moving all 4 limbs Skin: BLE edema with right lower extremity with wound w/ dressing in place c/d/i Psych: Cooperative with exam Neurology: no focal deficit Results Labs 06/16/25 08:45 06/16/25 09:46 Labs: Laboratory Results - last 24 hr 06/16/25 06/16/25 06/16/25 08:45 09:46 11:15 MCV 91.0 MCH 29.6 MCHC 32.5 RDW 17.4 H Plt Count 107 L MPV 9.2 L Immature Gran % (Auto) 0.4 Neut % (Auto) 62.2 Lymph % (Auto) 24.7 Wake % (Auto) 8.6 Eos % (Auto) 3.5 Baso % (Auto) 0.6 Lymph # (Auto) 2.4 Wake # (Auto) 0.8 Eos # (Auto) 0.3 Baso # (Auto) 0.1 Abs Immat Gran (auto) 0.04 H Absolute Neuts (auto) 6.1 Absolute Nucleated RBC 0.000 Nucleated RBC % (auto) 0.0 Anion Gap 16 Estim Creat Clear Calc 85.5 Estimated GFR > 60 Random Glucose 81 Lactic Acid Calcium 8.7 D Magnesium 1.2 L* Total Bilirubin 1.4 H Direct Bilirubin 0.8 H AST 23 ALT < 6 Alkaline Phosphatase 105 Total Creatine Kinase 39 Total Protein 7.2 Albumin 3.7 Lipase 14 Urine Color Dark Yellow Urine Appearance Clear Urine pH 6.5 Ur Specific Colora 1.015 Urine Protein Trace Urine Glucose (UA) Negative Urine Ketones 15 Urine Blood Negative Urine Nitrite Negative Ur Leukocyte Esterase Small (1+) H Urine RBC 0-2 Urine WBC 0-5 Ur Squamous Epith Cells 0-2 Urine Bacteria None Seen Hyaline Casts 0-2 Urine Opiates Screen Not Detected Ur Buprenorphine Scrn Not Detected Ur Oxycodone Screen Not Detected Urine Methadone Screen Not Detected Urine Fentanyl Screen Not Detected Ur Barbiturates Screen Not Detected Ur Phencyclidine Scrn Not Detected Ur Amphetamines Screen Not Detected U Benzodiazepines Scrn POSITIVE H Urine Cocaine Screen Not Detected U Marijuana (THC) Screen Not Detected Ethyl Alcohol < 10 COVID-19 (TORSTEN) Negative COVID-19 Clin Com See Note Influenza Type A (NADIYA) Negative Influenza Type B (NADIYA) Negative Influenza A & B Note See Note 06/16/25 06/16/25 13:49 14:09 MCV MCH MCHC RDW Plt Count MPV Immature Gran % (Auto) Neut % (Auto) Lymph % (Auto) Wake % (Auto) Eos % (Auto) Baso % (Auto) Lymph # (Auto) Wake # (Auto) Eos # (Auto) Baso # (Auto) Abs Immat Gran (auto) Absolute Neuts (auto) Absolute Nucleated RBC Nucleated RBC % (auto) Anion Gap Estim Creat Clear Calc Estimated GFR Random Glucose Lactic Acid 0.6 Calcium Magnesium 1.6 Total Bilirubin Direct Bilirubin AST ALT Alkaline Phosphatase Total Creatine Kinase Total Protein Albumin Lipase Urine Color Urine Appearance Urine pH Ur Specific Colora Urine Protein Urine Glucose (UA) Urine Ketones Urine Blood Urine Nitrite Ur Leukocyte Esterase Urine RBC Urine WBC Ur Squamous Epith Cells Urine Bacteria Hyaline Casts Urine Opiates Screen Ur Buprenorphine Scrn Ur Oxycodone Screen Urine Methadone Screen Urine Fentanyl Screen Ur Barbiturates Screen Ur Phencyclidine Scrn Ur Amphetamines Screen U Benzodiazepines Scrn Urine Cocaine Screen U Marijuana (THC) Screen Ethyl Alcohol COVID-19 (TORSTEN) COVID-19 Clin Com Influenza Type A (NADIYA) Influenza Type B (NADIYA) Influenza A & B Note Imaging Radiologist's Impressions: Impressions Chest X-Ray 06/16/25 10:08 IMPRESSION: Cardiomegaly. No acute cardiopulmonary abnormality. Electronically signed by: Eric Juarez MD 06/16/2025 10:19 AM EDT RP Abdomen/Pelvis CT 06/16/25 10:31 IMPRESSION: 1. Mildly more prominent chronic findings suggestive of inflammatory changes in the mesentery, that also extends into the region of bao hepatis. 2. Additional chronic findings are unchanged, including hepatomegaly, left partial nephrectomy, probably inguinal lymph nodes and sigmoid colonic diverticulosis. Electronically signed by: Alissa Malone MD 06/16/2025 11:38 AM EDT RP Tibia/Fibula X-Ray 06/16/25 14:20 IMPRESSION: Diffuse soft tissue swelling. Chronic cortical thickening involving the anterior aspect of the tibia. No plain film evidence of osteomyelitis. If this remains a clinical concern, three-phase bone scan or MRI could be performed. Electronically signed by: Eric Juarez MD 06/16/2025 02:27 PM EDT RP Assessment and Plan (1) Alcohol use disorder: Status: Acute (2) CKD stage 3a, GFR 45-59 ml/min: Status: Acute (3) Anemia: Qualifiers: Anemia type: iron deficiency Status: Acute (4) Venous stasis ulcer: Qualifiers: Venous stasis ulcer site: calf Varicose vein presence: without varicose veins Laterality: unspecified laterality Non-pressure ulcer stage: limited to breakdown of skin Qualified Code(s): I87.2 - Venous insufficiency (chronic) (peripheral); L97.201 - Non-pressure chronic ulcer of unspecified calf limited to breakdown of skin Status: Acute (5) Acute infectious diarrhea: Status: Acute Plan Gastroenteritis Abdomen and pelvis CT scan with inflammatory changes in mesentery, extending to region of bao hepatis, lymphadenopathy. -blood cultures ordered and pending, stool cultures ordered -s/p Levo, will initiate meropenem given RLE wound and gastroenteritis -continue IV fluids -if no improvement, will consult ID and GI for further recs Right lower extremity wound Venous stasis ulcers -Right lower extremity x-ray with diffuse soft tissue swelling, chronic cortical thickening involving anterior aspect of the tibia, no plain evidence of osteomyelitis. -wound care consulted, leg elevation -continue w/ abs as above Anemia of chronic disease Likely iron-deficiency anemia with RDW increased at 17.4 Thrombocytopenia, chronic -will hold off iron pills in the setting of active infection -monitor for any bleeding -transfuse for Hb less than 7 premature Supraventricular complexes Cardiomegaly -seen on xray -continue w/ metoprolol 25mg succinate -telemetry ordered -monitor for any chest pain, palpitations Prerenal azotemia CKD with left partial nephrectomy UA w/ casts in place will initiate LR at 100mL continue to monitor urine output daily labs at this time Gout, chronic will continue allopurinol Alcohol use disorder Continue with thiamine, folic acid Counseling given on discontinuing alcohol use Quality Stroke Does the patient have a stroke diagnosis?: No VTE Prior VTE?: No VTE Risk Level:: Medical - moderate - high VTE Device Contraindication: N/A - Device Ordered VTE Drug Contraindication: Treatment Not Indicated
[2025-06-17] VITALS (8 sets, daily range): BP systolic 109–167; BP diastolic 60–79; PULSE 54–76; RESP 11–18; TEMP 36.7–37.5; O2SAT 94–98; BMI 35.5
[2025-06-17] MEDS: Lactated Ringers 1,000 ML 100 ML IVCONT ×3 (04:08→23:15)
[2025-06-17 04:53] LABS: MANUAL DIFF FLAG NO
[2025-06-17 04:54] LABS: Hematocrit 24.4 % (42.0-52.0); Hemoglobin 7.8 g/dl (14.0-18.0); Imm Gran Abs Auto 0.02 X10*3/uL (0.00-0.03); Imm Gran Pct Auto 0.3 % (0.0-0.4); Lymphocytes Absolute Auto 1.3 X10*3/uL (1.2-4.9); Mean Corpuscular HGB Conc 32.0 g/dl (31.0-36.0); Mean Corpuscular Hemoglobin 29.5 pg (27.0-33.0); Mean Corpuscular Volume 92.4 fL (80.0-98.0); NRBC Abs Auto 0.000 X10*3/uL (0.0-0.012); NRBC Pct Auto 0.0 /100WBC (0.0-0.2); Red Blood Count 2.64 X10*6/uL (4.60-5.80); White Blood Count 6.1 X10*3/uL (4.8-10.8)
[2025-06-17 04:58] LABS: Platelet Count 80 X10*3/uL (160-400)
--- NOTE | 2025-06-17 05:00 | ECG_ITS ---
Test Reason : arrythmia Blood Pressure : */* mmHG Vent. Rate : 67 BPM Atrial Rate : 67 BPM P-R Int : 208 ms QRS Dur : 122 ms QT Int : 442 ms P-R-T Axes : 32 -38 -21 degrees QTcB Int : 467 ms Sinus rhythm with Premature ventricular complexes Left axis deviation Non-specific intra-ventricular conduction delay Nonspecific T wave abnormality Abnormal ECG When compared with ECG of 01-Jun-2025 16:22, Premature ventricular complexes are no longer Present T wave inversion less evident in Lateral leads Referred By: Sukh Smart Electronically Signed By: CARRILLO MAHARAJ
[2025-06-17 05:26] LABS: Anion Gap 13 (12-20); Blood Urea Nitrogen 14 mg/dL (9-16); Calcium 8.4 mg/dL (8.4-10.2); Carbon Dioxide 23 mmol/L (22-29); Chloride 106 mmol/L (96-108); Creatinine Clr Calc Pharmacy 95.0; Estimated Glomerular Filt Rate > 60; Magnesium 1.4 mg/dL (1.6-2.6); Potassium 3.5 mmol/L (3.3-5.1); Sodium 138 mmol/L (135-145)
[2025-06-17 05:38] LABS: Thyroid Stimulating Hormone 4.07 uIU/mL (0.32-4.0)
[2025-06-17] MEDS: Magnesium Sulfate/H2O 2 GM/50 ML PIGGYBACK IV (06:01)
--- NOTE | 2025-06-17 06:26 | HO.NURTONUR ---
patient from home with complaint of continuous diarrhea saturday, saturday and today- at 2-3am this morning he couldnt take cleaning himself up anymore so stopped doing so. Upon arrival pt had stool from his abdomen down to his shoes, all clothes removed and bagged as they were soiled with stool. Pt has intact dressing to left flank, RLE dressing was taken down- pictures obtained and redressed by student working with provider, additionally it was noted pt had shearing to his buttocks- buttocks blanching red, bilateral thighs and groin area blanching red as well. After a period of discussion pt admitted to drinking vodka daily and stated his last drink was on - sat/sat/sun he had nausea/vomiting then sat/ and today he had diarrhea that began. denies smoking/drugs. Pt states he has a hx of ETOH withdrawl but denies seizures. Work up in the ED revealed mag 1.2, pt received 2g of mag per oct. While in the ED pt noted to become febrile with rectal temp of 102.8 pt medicated pr mar with effectiveness, pts temp is now 98.2 oral. Pt has 20G IV in LFA and has been medicated per oct. Q4h CIWA last score of 4 scored for tremors only at this time. Pt is a&ox3, walks with rolling walker, using bedisde urinal and able to make his needs known. Pt on contact precautions for ? of cdiff/norovirus. Pt being admitted for hypomagnesemia and etoh withdrawl.
--- NOTE | 2025-06-17 07:53 | PC.NURSE ---
Addendum entered by Radha Godinez RN 06/17/25 07:54: PT at bedside at this time. Original Note: This senior mortgage underwriter assumed care of this Pt at 0700.
[2025-06-17] MEDS: 0.9 % Sodium Chloride Flush 3 ML SYRINGE IVFLUSH ×2 (08:32→23:17)
[2025-06-17] MEDS: Metoprolol Succinate ER 25 MG TAB.ER.24H PO (08:33)
--- NOTE | 2025-06-17 09:08 | MHC.CM.PN ---
Addendum entered by Neha Velasquez 06/17/25 10:57: CORRECTION! [facility] dc'd Patient and the [facility] set [facility] up with a different [facility]. CM will follow. Original Note: CM met with Patient at bedside, in the ED. Patient lives in an apartment with his Sister/HCP/Niharika and his Mother who he helps care for. Patient is active with [facility] & [facility] and home/resume said services is Patient's goal. CM has initiated and will follow for dc planning. PCP is Dr. Samantha Gonzales and Patient will require assist with transport at de.Patient uses a walker to assist with mobility.
--- NOTE | 2025-06-17 13:31 | HO.PM.IMPN ---
Subjective Subjective Date of Service: 06/17/25 Interval History: Patient seen examined at bedside this morning, patient states that he is experiencing generalized muscle aches, worked with physical therapy. Stool PCR pending. Review of Systems Review of Systems: Yes all other systems are reviewed and are negative Physical Exam Exam: Exam: General: AxOx3, No acute distress Head: AT/NC ENT: Dry mucous membranes Neck: supple CVS; RRR, S1 S2 normal Lungs: Clear bilateral breath sounds, no wheezes or crackles Abd: Soft non tender, non distended Ext: no calf tenderness MSK: moving all 4 limbs Skin: BLE edema with right lower extremity with wound w/ dressing in place c/d/i Psych: Cooperative with exam Neurology: no focal deficit Vital Signs: Vital Signs: Last Vital Signs Temp 98.4 F 06/17/25 10:41 Pulse 73 06/17/25 10:41 Resp 18 06/17/25 10:41 BP 167/73 H 06/17/25 10:41 Pulse Ox 98 06/17/25 10:41 O2 Del Method Room Air 06/17/25 10:41 BMI result Body Mass Index 35.5 Objective Data Active Medications Acetaminophen (Acetaminophen 325 Mg Tablet) 650 mg PO Q4H PRN PRN Reason: Pain (Scale Score 4-6) Last Admin: 06/16/25 21:09 Dose: 650 mg Documented By: MARK Allopurinol (Allopurinol 300 Mg Tablet) 300 mg PO DAILY [facility] Last Admin: 06/17/25 10:39 Dose: 300 mg Documented By: FOSMELISSA Calcium Carbonate (Calcium Carbonate 750 Mg Tab.Chew) 750 mg PO Q4H PRN PRN Reason: Heartburn Folic Acid (Folic Acid 1 Mg Tablet) 1 mg PO DAILY [facility] Last Admin: 06/17/25 08:33 Dose: 1 mg Documented By: SERRMICHELLE Hydralazine HCl (Hydralazine Hcl 20 Mg/Ml Vial) 5 mg IVPUSH Q6H PRN; Protocol PRN Reason: SBP > 160 Hydromorphone HCl (Hydromorphone Hcl 0.5 Mg/0.5 Ml Syringe) 0.5 mg IVPUSH Q6H PRN; Protocol PRN Reason: Pain, Severe (Pain Scale 7-10) Last Admin: 06/17/25 08:34 Dose: 0.5 mg Documented By: JOJO Lactated Ringer's (Lr) 1,000 mls @ 100 mls/hr IVCONT .Q10H [facility] Last Admin: 06/17/25 12:52 Dose: 100 mls/hr Documented By: JENNY Magnesium Hydroxide (Milk Of Magnesia 30 Ml Oral.Susp) 30 ml PO DAILY PRN PRN Reason: Constipation Magnesium Oxide (Magnesium Oxide 400 Mg Tablet) 400 mg PO DAILY [facility] Last Admin: 06/17/25 08:32 Dose: 400 mg Documented By: JOJO Melatonin (Melatonin 3 Mg Tablet) 6 mg PO BEDTIME PRN PRN Reason: Insomnia Meropenem (Meropenem 1 Gm Vial) 1 gm IVPUSH Q8H [facility] Last Admin: 06/17/25 12:52 Dose: 1 gm Documented By: JENNY Metoprolol Succinate (Metoprolol Succinate Er 25 Mg Tab.Er.24h) 25 mg PO DAILY [facility]; Protocol Last Admin: 06/17/25 08:33 Dose: 25 mg Documented By: JOJO Ondansetron HCl (Ondansetron Hcl 4 Mg/2 Ml Vial) 4 mg IVPUSH Q8H PRN PRN Reason: Nausea and Vomiting Pyridoxine HCl (Pyridoxine Hcl (Vitamin B6) 50 Mg Tablet) 50 mg PO DAILY [facility] Last Admin: 06/17/25 10:38 Dose: 50 mg Documented By: JENNY Sodium Chloride (0.9 % Sodium Chloride Flush 3 Ml Syringe) 3 ml IVFLUSH QSHIFT [facility] Last Admin: 06/17/25 08:32 Dose: 3 ml Documented By: JOJO Thiamine HCl (Thiamine Hcl 100 Mg Tablet) 100 mg PO DAILY [facility] Last Admin: 06/17/25 08:32 Dose: 100 mg Documented By: JOJO Labs 06/17/25 04:46 06/17/25 04:46 Labs: Laboratory Results - last 24 hr 06/16/25 06/16/25 06/17/25 13:49 14:09 04:46 MCV 92.4 MCH 29.5 MCHC 32.0 RDW 17.3 H Plt Count 80 L D MPV 8.9 L Immature Gran % (Auto) 0.3 Neut % (Auto) 61.5 Lymph % (Auto) 21.4 [place] % (Auto) 13.1 H Eos % (Auto) 2.9 Baso % (Auto) 0.8 Lymph # (Auto) 1.3 [place] # (Auto) 0.8 Eos # (Auto) 0.2 Baso # (Auto) 0.1 Abs Immat Gran (auto) 0.02 Absolute Neuts (auto) 3.8 Absolute Nucleated RBC 0.000 Nucleated RBC % (auto) 0.0 Anion Gap 13 Estim Creat Clear Calc 95.0 Estimated GFR > 60 Random Glucose 94 Lactic Acid 0.6 Calcium 8.4 Magnesium 1.6 1.4 L* TSH 4.07 H Microbiology Microbiology Results: Microbiology 06/16/25 Unknown Urine Culture - Preliminary Urine clean catch - Clean Catch Midstream Culture in progress. Assessment and Plan (1) Venous stasis ulcer: Status: Acute (2) Acute infectious diarrhea: Status: Acute (3) CKD stage 3a, GFR 45-59 ml/min: Status: Acute Plan 65-year-old male who presented to hospital for nonbloody diarrhea that began on Saturday about 5-6 episodes per day as well as subjective fevers and incontinence. CTs abdomen and pelvis with inflammatory changes in mesentery, started on IV levofloxacin, later transitioned to meropenem, on IV fluids. Stool PCR pending. Gastroenteritis Abdomen and pelvis CT scan with inflammatory changes in mesentery, extending to region of bao hepatis, lymphadenopathy. -blood cultures ordered and pending, stool cultures ordered -s/p Levo, will continue meropenem given RLE wound and gastroenteritis -continue IV fluids -ID consulted Right lower extremity wound Venous stasis ulcers -Right lower extremity x-ray with diffuse soft tissue swelling, chronic cortical thickening involving anterior aspect of the tibia, no plain evidence of osteomyelitis. -wound care consulted, leg elevation -continue w/ abs as above Anemia of chronic disease Likely iron-deficiency anemia with RDW increased at 17.4 Thrombocytopenia, chronic -will hold off iron pills in the setting of active infection -monitor for any bleeding -transfuse for Hb less than 7 premature Supraventricular complexes Cardiomegaly -seen on xray -continue w/ metoprolol 25mg succinate -telemetry ordered -monitor for any chest pain, palpitations Prerenal azotemia CKD with left partial nephrectomy UA w/ casts in place continue LR at 100mL continue to monitor urine output daily labs at this time Gout, chronic will continue allopurinol Alcohol use disorder Continue with thiamine, folic acid Counseling given on discontinuing alcohol use Quality Stroke Does the patient have a stroke diagnosis?: No VTE Prior VTE?: No VTE Risk Level:: Medical - moderate - high VTE Device Contraindication: N/A - Device Ordered VTE Drug Contraindication: Treatment Not Indicated
--- NOTE | 2025-06-17 14:07 | HO.WOUND ---
Wound Consult: Initial 65 yr old male admitted to [facility] on 06/16/25 - See progress notes and H&P for detailed history. Wound consult placed for right leg and buttocks. Patient agreeable to assessment and photo documentation. Patient reports followed by [facility] wound center, reports days of diarrhea at home. NOT PICTURED: COCCYX and LEFT UPPER BUTTOCK Etiology: stage 2 pressure injuries Present on Admission superimposed on IAD to buttocks/gluteal fold/perineum/and groin Measurements: 1cm x 0.5cm x 0.1cm and 0.5x1x0.1 Wound Bed: moist pink/red Drainage / Odor: none Edges: ? open Slime wound: ? No Induration, Fluctuance or Warmth noted- slime wound with MASD/IAD moderate/severe with chapped red skin Pain: none Goals of Treatment: ? triad paste to entire area Right lateral lower leg Right medial lower leg Etiology: Chronic venous stasis ulcers to right lateral leg, also noted with irregular area of intact nonblanching purple, medial leg with linear area of abrasion. patient reports it was noted by the wound center upon dressin removal but patient did not feel any pain. Wound Bed: moist pink Drainage / Odor: Edges: ? open Slime wound: ? No Induration, Fluctuance or Warmth noted - thick dry flaking skin to lower leg Pain: none Goals of Treatment: ? moist healing with xeroform, drainage absorption with ABD - message to provider for ammonium lactate lotion for dry flaking skin Left abdomen - intact healed scar- patient reports kidney surgery about 1 year ago and that he keeps it covered as it sometimes leaks- no drainage at this time - will protect with foam. Recommendations: 1. Turn and Reposition every 2 hours and as needed for patient comfort. Use pillows or wedges to support off loading positions. 2. Off Load all bony prominences with use of pillows and heel boots if needed. Apply Preventative foams where needed. 3. Monitor for incontinence and moisture control, use barrier creams when needed for prevention and treatment. 4. Provide adequate and supplemental nutrition. 5. Order or Continue low air loss mattress. 6. When applicable maintain blood glucose levels per Providers order. Coccyx, left upper buttock: Off Load Pressure with Q2 hr turns and use of pillows - Cleanse with PH balance spray or wipes, pat dry. ?Apply thin layer of Triad to wound bed - only pat and dab no scrub and rub when soiling occurs. Reapply thin layer PRN after each episode of incontinence. Right leg: cleanse with saline, apply moisturizer per orders, apply xeroform to wound beds and surrounding, followed by ABD pad, wrap with rolled gauze, change daily and PRN. Left abdomen: apply protective foam, change every 3 days and PRN. Buttocks/perineum/groin: Off Load Pressure with Q2 hr turns and use of pillows - Cleanse with PH balance spray or wipes, pat dry. ?Apply thin layer of Triad to wound bed - only pat and dab no scrub and rub when soiling occurs. Reapply thin layer PRN after each episode of incontinence. Re-consult wound care Nurse for wound deterioration or wound changes. Coccyx, left upper buttock: Off Load Pressure with Q2 hr turns and use of pillows - Cleanse with PH balance spray or wipes, pat dry. ?Apply thin layer of Triad to wound bed - only pat and dab no scrub and rub when soiling occurs. Reapply thin layer PRN after each episode of incontinence. Right leg: cleanse with saline, apply moisturizer per orders, apply xeroform to wound beds and surrounding, followed by ABD pad, wrap with rolled gauze, change daily and PRN. Left abdomen: apply protective foam, change every 3 days and PRN. Buttocks/perineum/groin: Off Load Pressure with Q2 hr turns and use of pillows - Cleanse with PH balance spray or wipes, pat dry. ?Apply thin layer of Triad to wound bed - only pat and dab no scrub and rub when soiling occurs. Reapply thin layer PRN after each episode of incontinence.
--- NOTE | 2025-06-17 15:12 | MHC.CM.PN ---
Addendum entered by Neha Velasquez 06/17/25 15:16: Per Wound Clinic, Patient is active with [facility]. Original Note: With Patient's permission, CM spoke with Sister/HCP/Niharika at listed #; she does not know the name of Patient's [facility]. CM left a detailed message for the [facility] @ Ext. [phone], requesting a return call with this information. CM will follow.
[2025-06-18 03:12] VITALS: BP 141/66; PULSE 69; RESP 16; TEMP 37.2; O2SAT 96
[2025-06-18 07:25] LABS: MANUAL DIFF FLAG NO
[2025-06-18 07:39] LABS: Hematocrit 24.0 % (42.0-52.0); Hemoglobin 7.7 g/dl (14.0-18.0); Imm Gran Abs Auto 0.03 X10*3/uL (0.00-0.03); Imm Gran Pct Auto 0.4 % (0.0-0.4); Lymphocytes Absolute Auto 1.5 X10*3/uL (1.2-4.9); Mean Corpuscular HGB Conc 32.1 g/dl (31.0-36.0); Mean Corpuscular Hemoglobin 28.9 pg (27.0-33.0); Mean Corpuscular Volume 90.2 fL (80.0-98.0); NRBC Abs Auto 0.000 X10*3/uL (0.0-0.012); NRBC Pct Auto 0.0 /100WBC (0.0-0.2); Platelet Count 103 X10*3/uL (160-400); Red Blood Count 2.66 X10*6/uL (4.60-5.80); White Blood Count 6.8 X10*3/uL (4.8-10.8)
[2025-06-18 07:58] LABS: Anion Gap 12 (12-20); Blood Urea Nitrogen 12 mg/dL (9-16); Calcium 8.4 mg/dL (8.4-10.2); Carbon Dioxide 24 mmol/L (22-29); Chloride 105 mmol/L (96-108); Creatinine Clr Calc Pharmacy 101.4; Estimated Glomerular Filt Rate > 60; Magnesium 1.6 mg/dL (1.6-2.6); Potassium 3.6 mmol/L (3.3-5.1); Sodium 137 mmol/L (135-145)
[2025-06-18 08:00] VITALS: BP 143/73; PULSE 58; RESP 18; TEMP 37.2; O2SAT 97
[2025-06-18 08:11] LABS: Hematocrit 23.1 % (42.0-52.0); Hemoglobin 7.5 g/dl (14.0-18.0); Mean Corpuscular HGB Conc 32.5 g/dl (31.0-36.0); Mean Corpuscular Hemoglobin 29.2 pg (27.0-33.0); Mean Corpuscular Volume 89.9 fL (80.0-98.0); NRBC Abs Auto 0.000 X10*3/uL (0.0-0.012); NRBC Pct Auto 0.0 /100WBC (0.0-0.2); Platelet Count 123 X10*3/uL (160-400); Red Blood Count 2.57 X10*6/uL (4.60-5.80); White Blood Count 6.9 X10*3/uL (4.8-10.8)
[2025-06-18 08:23] LABS: Anion Gap 11 (12-20); Blood Urea Nitrogen 12 mg/dL (9-16); Calcium 8.3 mg/dL (8.4-10.2); Carbon Dioxide 25 mmol/L (22-29); Chloride 104 mmol/L (96-108); Creatinine Clr Calc Pharmacy 105.2; Estimated Glomerular Filt Rate > 60; Magnesium 1.5 mg/dL (1.6-2.6); Potassium 3.5 mmol/L (3.3-5.1); Sodium 136 mmol/L (135-145)
[2025-06-18] MEDS: Metoprolol Succinate ER 25 MG TAB.ER.24H PO (09:26)
[2025-06-18] MEDS: Lactated Ringers 1,000 ML 100 ML IVCONT (09:30)
[2025-06-18 10:28] VITALS: BMI 35.5
--- NOTE | 2025-06-18 10:31 | MHC.CLN ---
PT WITH INCREASED NUTRITION RISK R/T PRESSURE INJURY DIET RX: CARDIAC-RECOMMEND 2GM NA DIET RECOMMEND ADDING ENSURE TID TO PROMOTE WOUND HEALING SUPP TO PROVIDE 1050KCALS, 60G PROTEIN MONITOR PO INTAKE AND ENCOURAGE SUPPLEMENTS SEE FULL ASSESSMENT
[2025-06-18 12:00] VITALS: BP 138/60; PULSE 55; RESP 18; TEMP 37.1; O2SAT 98
--- NOTE | 2025-06-18 12:55 | MHC.CM.PN ---
EMR REVIEWED, PER HOSPITALIST PT NOT YET READY FOR DC, PT REMAINS ON IVF AND IV PAIN MEDS, P.T. RECOMMENDING HOME SERVICES, FÁTIMA SOOD UPDATED, CM WILL CONT TO FOLLOW DC NEEDS.
--- NOTE | 2025-06-18 13:23 | W.PM.IDCN ---
History of Present Illness Data of Consult Service Date: 06/17/25 Requesting physician: Sukh Smart Primary Care Provider: Samantha Gonzales MD HPI Reason for consult: diarrhea He presents with diarrhea for last six days with mostly watery ,but blood concern as well. Diarrhea is soiling right leg wounds that are chronic he sees Wound Care for. XR no OM He thinks he ate bad lobster roll day before start of symptoms. Cdiff is negative. Review of Systems Review of Systems: Yes all other systems are reviewed and are negative PMF Past Medical History Medical History Abdominal wall abscess at site of surgical wound CKD stage 3a, GFR 45-59 ml/min Colitis Renal mass Renal cell carcinoma Alcohol use disorder Hyperlipidemia Ascending aortic aneurysm Alcoholic steatohepatitis Seborrheic dermatitis DEBORAH (obstructive sleep apnea) History of rhabdomyolysis Hx of lower gastrointestinal bleeding Hx of sepsis History of DVT of lower extremity Chronic ulcer of leg Chronic venous stasis HTN (hypertension) Anemia Anemia Family History Family History Mother Dementia Maternal Grandmother Dementia Family history: reviewed and not pertinent Surgical History Surgical History H/O partial nephrectomy Hx of colonoscopy Social History Social History Household Members: Family Household Members Other:: mother who has dementia Housing: House Housing Other:: 4 stairs to get into house. Pt lives in basement Do you presently have visiting nurse or other home services: Yes (wound care and nurse) Alcohol intake: current Alcohol intake frequency: 3 or more drinks per day Alcohol type: hard liquor Comment: pt refused socks Patient Tobacco Use Status: Never used Tobacco Advance Directives Date on File: 04/13/22 service: No Current occupational status: disabled Meds Allergies Allergy/AdvReac Type Severity Reaction Status Date / Time azithromycin (AZITHROMYCIN) Allergy Severe FACIAL Verified 06/16/25 08:12 SWELLING hydrochlorothiazide (HCTZ) Allergy Severe Facial Verified 06/16/25 08:12 Swelling Active Medications: Current Medications Acetaminophen (Acetaminophen 325 Mg Tablet) 650 mg PO Q4H PRN PRN Reason: Pain (Scale Score 4-6) Last Admin: 06/16/25 21:09 Dose: 650 mg Allopurinol (Allopurinol 300 Mg Tablet) 300 mg PO DAILY [facility] Last Admin: 06/18/25 09:27 Dose: 300 mg Calcium Carbonate (Calcium Carbonate 750 Mg Tab.Chew) 750 mg PO Q4H PRN PRN Reason: Heartburn Folic Acid (Folic Acid 1 Mg Tablet) 1 mg PO DAILY [facility] Last Admin: 06/18/25 09:27 Dose: 1 mg Hydralazine HCl (Hydralazine Hcl 20 Mg/Ml Vial) 5 mg IVPUSH Q6H PRN; Protocol PRN Reason: SBP > 160 Hydromorphone HCl (Hydromorphone Hcl 0.5 Mg/0.5 Ml Syringe) 0.5 mg IVPUSH Q6H PRN; Protocol PRN Reason: Pain, Severe (Pain Scale 7-10) Last Admin: 06/18/25 09:27 Dose: 0.5 mg Lactated Ringer's (Lr) 1,000 mls @ 100 mls/hr IVCONT .Q10H [facility] Last Infusion: 06/18/25 13:00 Dose: 100 mls/hr Magnesium Hydroxide (Milk Of Magnesia 30 Ml Oral.Susp) 30 ml PO DAILY PRN PRN Reason: Constipation Magnesium Oxide (Magnesium Oxide 400 Mg Tablet) 400 mg PO DAILY [facility] Last Admin: 06/18/25 09:37 Dose: 400 mg Melatonin (Melatonin 3 Mg Tablet) 6 mg PO BEDTIME PRN PRN Reason: Insomnia Meropenem (Meropenem 1 Gm Vial) 1 gm IVPUSH Q8H [facility] Last Admin: 06/18/25 12:39 Dose: 1 gm Metoprolol Succinate (Metoprolol Succinate Er 25 Mg Tab.Er.24h) 25 mg PO DAILY [facility]; Protocol Last Admin: 06/18/25 09:26 Dose: 25 mg Ondansetron HCl (Ondansetron Hcl 4 Mg/2 Ml Vial) 4 mg IVPUSH Q8H PRN PRN Reason: Nausea and Vomiting Last Admin: 06/18/25 12:45 Dose: 4 mg Pyridoxine HCl (Pyridoxine Hcl (Vitamin B6) 50 Mg Tablet) 50 mg PO DAILY [facility] Last Admin: 06/18/25 09:26 Dose: 50 mg Sodium Chloride (0.9 % Sodium Chloride Flush 3 Ml Syringe) 3 ml IVFLUSH QSHIFT [facility] Last Admin: 06/18/25 09:37 Dose: Not Given Thiamine HCl (Thiamine Hcl 100 Mg Tablet) 100 mg PO DAILY [facility] Last Admin: 06/18/25 09:26 Dose: 100 mg Home Medications ?Medication ?Instructions ?Recorded ?Confirmed ?Last Taken ?Type allopurinol 300 mg tablet 300 mg PO DAILY 07/29/24 06/16/25 3 Days Ago History ~01/19/25 ascorbate calcium (vitamin C) 500 500 mg PO BID 07/29/24 06/16/25 3 Days Ago History mg tablet ~01/19/25 cholecalciferol (vitamin D3) 50 50 mcg PO DAILY 10/16/24 06/16/25 3 Days Ago History mcg (2,000 unit) tablet (Vitamin ~01/19/25 D3) ferrous sulfate 325 mg (65 mg 325 mg PO DAILY 10/16/24 06/16/25 3 Days Ago History iron) tablet,delayed release ~01/19/25 pyridoxine (vitamin B6) 50 mg 50 mg PO DAILY 10/16/24 06/16/25 3 Days Ago History tablet (Vitamin B-6) ~01/19/25 thiamine HCl (vitamin B1) 100 mg 100 mg PO DAILY 10/16/24 06/16/25 3 Days Ago History tablet (Vitamin B-1) ~01/19/25 acetaminophen 325 mg tablet 650 mg PO Q4H PRN Pain (Scale 01/22/25 06/16/25 Unknown History Score 4-6) metoprolol succinate 25 mg 25 mg PO DAILY 01/22/25 06/16/25 Unknown History tablet,extended release 24 hr Physical Exam Vital Signs: Vital Signs: Last Vital Signs Temp 98.8 F 06/18/25 12:00 Pulse 55 06/18/25 12:00 Resp 18 06/18/25 12:00 BP 138/60 06/18/25 12:00 Pulse Ox 98 06/18/25 12:00 O2 Del Method Room Air 06/18/25 12:00 BMI result Body Mass Index 35.5 Const: General: cooperative HEENT: Head: Yes normal to inspection Face and sinus: Yes normal facial exam Mouth: Normal oral and palatal mucosa present Teeth and gingiva: dentition normal Eyes: General: appearance normal, both eyes and all related structures Pupils: Equal, round and reactive pupils present Resp: Effort & Inspection: normal respiratory effort Cardio: Rate: regular rate Rhythm: regular rhythm GI: Palpation (GI): Soft to palpation and nontender : General: Yes no CVA tenderness Back/Spine/Pelvis: Back: no CVA tenderness Skin: General skin exam: no rashes or lesions noted Neuro: General: moves all extremities Cranial nerves: Yes Equal, round and reactive pupils present Extrem: Other: right leg open wounds,venous stasis Psych: Appearance: grossly normal Results Labs 06/18/25 06:45 06/18/25 07:57 Labs: Short CBC 06/18/25 06/18/25 Range/Units 05:57 06:45 WBC 6.9 6.8 (4.8-10.8) X10*3/uL Hgb 7.5 L 7.7 L (14.0-18.0) g/dl Hct 23.1 L 24.0 L (42.0-52.0) % Plt Count 123 L D 103 L (160-400) X10*3/uL BMP 06/18/25 06/18/25 06:45 07:57 Sodium 137 136 Potassium 3.6 3.5 Chloride 105 104 Carbon Dioxide 24 25 BUN 12 12 Creatinine 0.84 0.81 Calcium 8.4 8.3 L Microbiology Microbiology Results: Microbiology 06/16/25 Unknown Urine clean catch - Clean Catch Midstream Urine Culture - Preliminary Proteus species 06/16/25 14:09 Blood - Venous Blood Culture - Preliminary No growth after 24 hours. 06/16/25 14:09 Blood - Venous Blood Culture - Preliminary No growth after 24 hours. Assessment and Plan (1) Alcohol use disorder: Status: Acute (2) Alcohol withdrawal: Status: Acute (3) Acute infectious diarrhea: Status: Acute Plan Check stool panel. Stop Merem,dont need full ESBL coverage (no UTI and if stool salmonella or shigella Ceftriaxone or Levaquin usually appropriate.
--- NOTE | 2025-06-18 14:00 | CA_ITS ---
Transthoracic Echocardiogram Patient (Last, First, Middle): Mohan Gonzalez A Gender: Male Date of : 1960 Age: 65 Procedure Date: 06/18/2025 Procedure Type: Transthoracic Echocardiogram [place] [facility] [place]: 170.18 cm Weight: 102.51 kg BSA: 2.13 m2 Heart Rate: bpm BP: 138 / 60 mmHg Kick Boxer: Referring MD: Sukh Smart MD Symptoms: cardiomegaly Study Quality: Adequate ECG Rhythm: Sinus Conclusions: - The left ventricular systolic function is low normal. The calculated ejection fraction is 53% by biplane method. - No obvious valvular pathology seen on this study. - There is mild dilatation of the ascending aorta measuring 4.30 cm. Findings Procedure Information Contrast agent, definity, is being given per protocol without apparent complications. Left Ventricle Normal left ventricular cavity size. There is normal left ventricular wall thickness. The left ventricular systolic function is low normal. The calculated ejection fraction is 53% by biplane method. There is no evidence of regional wall motion abnormalities. Diastolic function is normal for age. Right Ventricle Normal right ventricular cavity size and systolic function. Atria The left atrium is moderately dilated. The right atrium is normal in size. Aortic Valve There is a normal trileaflet aortic valve. There is no aortic valve stenosis. There is no aortic valve regurgitation. Mitral Valve The mitral valve appears normal. There is no mitral valve regurgitation. There is no mitral valve stenosis. Pulmonic Valve The pulmonic valve is likely normal. Tricuspid Valve There is trace tricuspid valve regurgitation. There is no evidence of pulmonary hypertension. Great Vessels There is mild dilatation of the ascending aorta measuring 4.30 cm. Venous The inferior vena cava is normal in size and collapses greater than 50% with inspiration. Pericardium/Pleural There is no evidence of pericardial effusion. Prior Study Comparison No prior study available for comparison. Recommendations, Care & Conclusions No obvious valvular pathology seen on this study. Measurements 2D Linear Measurements IVSd: 0.98 0.6-0.9/0.6-1.0 cm LVIDd: 5.61 3.9-5.3/4.2-5.9 cm LVIDd Index: 2.63 2.4-3.2/2.2-3.1 cm/m2 LVIDs: 3.95 2.0-3.6 cm LVPWd: 1.12 0.7-1.1 cm Ao Root: 3.50 2.1-3.5 cm LA Diam: 4.60 2.7-3.8/3.0-4.0 cm LAIDs Index: 2.16 1.5-2.3 cm/m2 LV Mass: 293.58 67-162/88-224 g LV Mass Index: 137.83 43-95/49-115 g/m2 LVOT Diam: 2.40 3.0+(-)1.3 cm 2D Systolic Function EF 4C: 52.00 >55% EF 2C: 54.10 >55% EF BiP: 52.70 >55% Mitral Valve MV VTI: 0.38 MV Pk Silver: 0.88 MV Mn Silver: 0.51 MV Pk Grad: 3.00 MV Mn Grad: 1.00 MV Pk E: 1.02 MV PK A: 0.83 MV Decel Time: 177.00 E/A: 1.20 E'Lateral: 10.40 E'Medial: 5.66 E/E' Med: 18.00 E/E' Lat: 9.80 PHT: 52.00 MVA PHT: 4.23 MVA Continuity: 2.62 Decel White: 5.77 Aortic Valve AoV Pk Silver: 1.93 AoV Mn Silver: 1.24 AoV VTI: 0.40 AoV Pk Grad: 15.00 Aov Mn Grad: 7.00 HOMERO Cont.VTI: 2.50 LVOT LVOT Pk Silver: 1.06 LVOT Mn Silver: 0.73 LVOT VTI: 0.22 LVOT Pk Grad: 4.00 LVOT Mn Grad: 2.00 LVOT Diam: 2.40 LVOT Area: 4.52 Diastolic Function MV Pk E: 1.02 MV Pk A: 0.83 E/A: 1.20 E'Medial: 5.66 E/E' Med: 18.00 E' Laterial: 10.40 E/E' Lat: 9.80 Right Ventricle TAPSE (mm): 32.00 Tricuspid Valve TR Pk Silver: 2.50 TR Pk Grad: 25.00 RA Press: 3.00 RVSP: 28.00 Great Vessels Aorta Ao Root-2D: 3.50 2.0-3.7 cm Ao Asc: 4.30 2.1-3.4 cm Pulmonary Valve PV Pk Silver: 1.25 Peak PV Grad: 6.00 Updated in Other Vendor System with Status of Final Arnol Merrill MD electronically signed on 06/19/2025 11:51:19 AM with status of Final
--- NOTE | 2025-06-18 14:38 | HO.PM.IMPN ---
Subjective Subjective Date of Service: 06/18/25 Interval History: Patient seen and examined at bedside this morning, patient states that he has feeling similar, however had only 1 episode of loose stools. Mentioned that he has been experiencing swelling and ascending weakness since 2 days ago. With difficulty in grasping objects. Review of Systems Review of Systems: Yes all other systems are reviewed and are negative Physical Exam Exam: Exam: General: AxOx3, No acute distress Head: AT/NC ENT: Moist mucous membranes Neck: supple CVS; RRR, S1 S2 normal Lungs: Clear bilateral breath sounds, no wheezes or crackles Abd: Soft non tender, non distended Ext: no calf tenderness MSK: moving all 4 limbs Skin: LE edema, with thigh edema Psych: Cooperative with exam Neurology: weakness Vital Signs: Vital Signs: Last Vital Signs Temp 98.8 F 06/18/25 12:00 Pulse 55 06/18/25 12:00 Resp 18 06/18/25 12:00 BP 138/60 06/18/25 12:00 Pulse Ox 98 06/18/25 12:00 O2 Del Method Room Air 06/18/25 12:00 BMI result Body Mass Index 35.5 Objective Data Active Medications Acetaminophen (Acetaminophen 325 Mg Tablet) 650 mg PO Q4H PRN PRN Reason: Pain (Scale Score 4-6) Last Admin: 06/16/25 21:09 Dose: 650 mg Documented By: MARK Allopurinol (Allopurinol 300 Mg Tablet) 300 mg PO DAILY [facility] Last Admin: 06/18/25 09:27 Dose: 300 mg Documented By: LIZZETH Calcium Carbonate (Calcium Carbonate 750 Mg Tab.Chew) 750 mg PO Q4H PRN PRN Reason: Heartburn Folic Acid (Folic Acid 1 Mg Tablet) 1 mg PO DAILY [facility] Last Admin: 06/18/25 09:27 Dose: 1 mg Documented By: LIZZETH Furosemide (Furosemide 40 Mg/4 Ml Vial) 40 mg IVPUSH ONCE ONE; Protocol Stop: 06/18/25 14:34 Hydralazine HCl (Hydralazine Hcl 20 Mg/Ml Vial) 5 mg IVPUSH Q6H PRN; Protocol PRN Reason: SBP > 160 Hydromorphone HCl (Hydromorphone Hcl 0.5 Mg/0.5 Ml Syringe) 0.5 mg IVPUSH Q6H PRN; Protocol PRN Reason: Pain, Severe (Pain Scale 7-10) Last Admin: 06/18/25 09:27 Dose: 0.5 mg Documented By: LIZZETH Ceftriaxone Sodium 2 gm/ (Sodium Chloride) 50 mls @ 100 mls/hr IV Q24H [facility] Magnesium Hydroxide (Milk Of Magnesia 30 Ml Oral.Susp) 30 ml PO DAILY PRN PRN Reason: Constipation Magnesium Oxide (Magnesium Oxide 400 Mg Tablet) 400 mg PO DAILY [facility] Last Admin: 06/18/25 09:37 Dose: 400 mg Documented By: LIZZETH Magnesium Oxide (Magnesium Oxide 400 Mg Tablet) 400 mg PO ONCE ONE Stop: 06/18/25 14:36 Melatonin (Melatonin 3 Mg Tablet) 6 mg PO BEDTIME PRN PRN Reason: Insomnia Metoprolol Succinate (Metoprolol Succinate Er 25 Mg Tab.Er.24h) 25 mg PO DAILY [facility]; Protocol Last Admin: 06/18/25 09:26 Dose: 25 mg Documented By: LIZZETH Ondansetron HCl (Ondansetron Hcl 4 Mg/2 Ml Vial) 4 mg IVPUSH Q8H PRN PRN Reason: Nausea and Vomiting Last Admin: 06/18/25 12:45 Dose: 4 mg Documented By: LIZZETH Pyridoxine HCl (Pyridoxine Hcl (Vitamin B6) 50 Mg Tablet) 50 mg PO DAILY [facility] Last Admin: 06/18/25 09:26 Dose: 50 mg Documented By: LIZZETH Sodium Chloride (0.9 % Sodium Chloride Flush 3 Ml Syringe) 3 ml IVFLUSH QSHIFT [facility] Last Admin: 06/18/25 09:37 Dose: Not Given Documented By: LIZZETH Non-Admin Reason: IV Running Thiamine HCl (Thiamine Hcl 100 Mg Tablet) 100 mg PO DAILY [facility] Last Admin: 06/18/25 09:26 Dose: 100 mg Documented By: LIZZETH Labs 06/18/25 06:45 06/18/25 07:57 Labs: Laboratory Results - last 24 hr 06/18/25 06/18/25 06/18/25 05:57 06:45 07:57 MCV 89.9 90.2 MCH 29.2 28.9 MCHC 32.5 32.1 RDW 17.0 H 16.9 H Plt Count 123 L D 103 L MPV 9.5 9.5 Immature Gran % (Auto) 0.4 Neut % (Auto) 60.1 Lymph % (Auto) 22.2 [place] % (Auto) 15.1 H Eos % (Auto) 1.6 Baso % (Auto) 0.6 Lymph # (Auto) 1.5 [place] # (Auto) 1.0 Eos # (Auto) 0.1 Baso # (Auto) 0.0 Abs Immat Gran (auto) 0.03 Absolute Neuts (auto) 4.1 Absolute Nucleated RBC 0.000 0.000 Nucleated RBC % (auto) 0.0 0.0 Anion Gap 12 11 L Estim Creat Clear Calc 101.4 105.2 Estimated GFR > 60 > 60 Random Glucose 100 105 Calcium 8.4 8.3 L Magnesium 1.6 1.5 L Microbiology Microbiology Results: Microbiology 06/16/25 Unknown Urine Culture - Preliminary Urine clean catch - Clean Catch Midstream Proteus species 06/16/25 14:09 Blood Culture - Preliminary Blood - Venous No growth after 24 hours. 06/16/25 14:09 Blood Culture - Preliminary Blood - Venous No growth after 24 hours. Assessment and Plan (1) Acute infectious diarrhea: Status: Acute (2) Venous stasis ulcer: Status: Acute (3) CKD stage 3a, GFR 45-59 ml/min: Status: Acute Plan 65-year-old male who presented to hospital for nonbloody diarrhea that began on Saturday about 5-6 episodes per day as well as subjective fevers and incontinence. CTs abdomen and pelvis with inflammatory changes in mesentery, started on IV levofloxacin, then meropenem, at this time on ceftriaxone. Mentions that he has been having worsening weakness and generalized pain. Neuro consulted Gastroenteritis Abdomen and pelvis CT scan with inflammatory changes in mesentery, extending to region of bao hepatis, lymphadenopathy. -blood cultures ordered and pending, stool cultures ordered -s/p Levo, short coursse of Meropenem, continue w/ ceftriaxone per ID recs -continue IV fluids -ID consulted and following Generalized weakness -will consult Neurology, TSH 4, will order free T4, will order CK, replete electrolytes. Right lower extremity wound Venous stasis ulcers -Right lower extremity x-ray with diffuse soft tissue swelling, chronic cortical thickening involving anterior aspect of the tibia, no plain evidence of osteomyelitis. -wound care consulted, leg elevation -continue w/ abs as above -sed rate, procal and crp ordered Anemia of chronic disease Likely iron-deficiency anemia with RDW increased at 17.4 Thrombocytopenia, chronic -will hold off iron pills in the setting of active infection -monitor for any bleeding -transfuse for Hb less than 7 suspect HF Cardiomegaly -seen on xray, TTE ordered -proBNP ordered -continue w/ metoprolol 25mg succinate, will give one dose of lasix -telemetry ordered -monitor for any chest pain, palpitations Prerenal azotemia CKD with left partial nephrectomy UA w/ casts in place will hold IV fluids at this time, patient tolerating PO daily labs Gout, chronic will continue allopurinol Alcohol use disorder Continue with thiamine, folic acid Counseling given on discontinuing alcohol use Quality Stroke Does the patient have a stroke diagnosis?: No VTE Prior VTE?: No VTE Risk Level:: Medical - moderate - high VTE Device Contraindication: N/A - Device Ordered VTE Drug Contraindication: Treatment Not Indicated
[2025-06-18] MEDS: Furosemide 40 MG/4 ML VIAL IVPUSH (15:01)
[2025-06-18 15:48] LABS: Free T4 (Free Thyroxine) 1.04 ng/dL (0.71-1.85)
[2025-06-18 16:00] VITALS: BP 152/73; PULSE 64; RESP 18; TEMP 37.1; O2SAT 96
--- NOTE | 2025-06-18 16:16 | PM.NEUROCN ---
History of Present Illness Data of Consult Service Date: 06/18/25 Primary Care Provider: Samantha Gonzales MD [facility] Reason for consult: Generalized weakness 64-year-old male who presented to the hospital complaining of nonbloody diarrhea that began on Saturday, about 5-6 episodes per day, associated with nausea, subjective fevers and incontinence. while he was being treated for all these issues, this consultation was requested for generalized weakness. There was no history of recent fall or seizure or laying on the ground for long time. Other than this, no cold or flu-like illness. Review of Systems Constitutional: Constitutional: Reports as per HPI [facility] Past Medical History Medical History Abdominal wall abscess at site of surgical wound CKD stage 3a, GFR 45-59 ml/min Colitis Renal mass Renal cell carcinoma Alcohol use disorder Hyperlipidemia Ascending aortic aneurysm Alcoholic steatohepatitis Seborrheic dermatitis DEBORAH (obstructive sleep apnea) History of rhabdomyolysis Hx of lower gastrointestinal bleeding Hx of sepsis History of DVT of lower extremity Chronic ulcer of leg Chronic venous stasis HTN (hypertension) Anemia Anemia Family History Family History Mother Dementia Maternal Grandmother Dementia Family history: reviewed and not pertinent Surgical History Surgical History H/O partial nephrectomy Hx of colonoscopy Social History Social History Household Members: Family Household Members Other:: mother who has dementia Housing: House Housing Other:: 4 stairs to get into house. Pt lives in basement Do you presently have visiting nurse or other home services: Yes (wound care and nurse) Alcohol intake: current Alcohol intake frequency: 3 or more drinks per day Alcohol type: hard liquor Comment: pt refused socks Patient Tobacco Use Status: Never used Tobacco Advance Directives Date on File: 04/13/22 service: No Current occupational status: disabled Meds Allergies Allergy/AdvReac Type Severity Reaction Status Date / Time azithromycin (AZITHROMYCIN) Allergy Severe FACIAL Verified 06/16/25 08:12 SWELLING hydrochlorothiazide (HCTZ) Allergy Severe Facial Verified 06/16/25 08:12 Swelling Active Medications: Current Medications Acetaminophen (Acetaminophen 325 Mg Tablet) 650 mg PO Q4H PRN PRN Reason: Pain (Scale Score 4-6) Last Admin: 06/16/25 21:09 Dose: 650 mg Allopurinol (Allopurinol 300 Mg Tablet) 300 mg PO DAILY [facility] Last Admin: 06/18/25 09:27 Dose: 300 mg Calcium Carbonate (Calcium Carbonate 750 Mg Tab.Chew) 750 mg PO Q4H PRN PRN Reason: Heartburn Folic Acid (Folic Acid 1 Mg Tablet) 1 mg PO DAILY [facility] Last Admin: 06/18/25 09:27 Dose: 1 mg Hydralazine HCl (Hydralazine Hcl 20 Mg/Ml Vial) 5 mg IVPUSH Q6H PRN; Protocol PRN Reason: SBP > 160 Hydromorphone HCl (Hydromorphone Hcl 1 Mg/Ml Syringe) 1 mg IVPUSH Q6H PRN; Protocol PRN Reason: Pain, Severe (Pain Scale 7-10) Ceftriaxone Sodium 2 gm/ (Sodium Chloride) 50 mls @ 100 mls/hr IV Q24H [facility] Last Infusion: 06/18/25 15:45 Dose: Infused Magnesium Hydroxide (Milk Of Magnesia 30 Ml Oral.Susp) 30 ml PO DAILY PRN PRN Reason: Constipation Magnesium Oxide (Magnesium Oxide 400 Mg Tablet) 400 mg PO DAILY [facility] Last Admin: 06/18/25 09:37 Dose: 400 mg Melatonin (Melatonin 3 Mg Tablet) 6 mg PO BEDTIME PRN PRN Reason: Insomnia Metoprolol Succinate (Metoprolol Succinate Er 25 Mg Tab.Er.24h) 25 mg PO DAILY [facility]; Protocol Last Admin: 06/18/25 09:26 Dose: 25 mg Ondansetron HCl (Ondansetron Hcl 4 Mg/2 Ml Vial) 4 mg IVPUSH Q8H PRN PRN Reason: Nausea and Vomiting Last Admin: 06/18/25 12:45 Dose: 4 mg Pyridoxine HCl (Pyridoxine Hcl (Vitamin B6) 50 Mg Tablet) 50 mg PO DAILY [facility] Last Admin: 06/18/25 09:26 Dose: 50 mg Sodium Chloride (0.9 % Sodium Chloride Flush 3 Ml Syringe) 3 ml IVFLUSH QSHIFT [facility] Last Admin: 06/18/25 09:37 Dose: Not Given Thiamine HCl (Thiamine Hcl 100 Mg Tablet) 100 mg PO DAILY [facility] Last Admin: 06/18/25 09:26 Dose: 100 mg Home Medications ?Medication ?Instructions ?Recorded ?Confirmed ?Last Taken ?Type allopurinol 300 mg tablet 300 mg PO DAILY 07/29/24 06/16/25 3 Days Ago History ~01/19/25 ascorbate calcium (vitamin C) 500 500 mg PO BID 07/29/24 06/16/25 3 Days Ago History mg tablet ~01/19/25 cholecalciferol (vitamin D3) 50 50 mcg PO DAILY 10/16/24 06/16/25 3 Days Ago History mcg (2,000 unit) tablet (Vitamin ~01/19/25 D3) ferrous sulfate 325 mg (65 mg 325 mg PO DAILY 10/16/24 06/16/25 3 Days Ago History iron) tablet,delayed release ~01/19/25 pyridoxine (vitamin B6) 50 mg 50 mg PO DAILY 10/16/24 06/16/25 3 Days Ago History tablet (Vitamin B-6) ~01/19/25 thiamine HCl (vitamin B1) 100 mg 100 mg PO DAILY 10/16/24 06/16/25 3 Days Ago History tablet (Vitamin B-1) ~01/19/25 acetaminophen 325 mg tablet 650 mg PO Q4H PRN Pain (Scale 01/22/25 06/16/25 Unknown History Score 4-6) metoprolol succinate 25 mg 25 mg PO DAILY 01/22/25 06/16/25 Unknown History tablet,extended release 24 hr Physical Exam Vital Signs: Vital Signs: Last Vital Signs Temp 98.8 F 06/18/25 12:00 Pulse 55 06/18/25 12:00 Resp 18 06/18/25 12:00 BP 138/60 06/18/25 12:00 Pulse Ox 98 06/18/25 12:00 O2 Del Method Room Air 06/18/25 12:00 BMI result Body Mass Index 35.5 Neuro: Other: Mental Status: He is alert and awake with normal spontaneity of speech fluency comprehension and affect Cranial Nerves: extraocular muscles are intact. Visual mccarthy are full. Face is symmetrical. Tongue is midline. Motor: Deep tendon reflexes are absent. No focal arm or leg weakness. Extrapyramidal: Full facial expressions and blinking. No rigidity. Movements are appropriate with no tremor or abnormality. Speech: Normal; no dysarthria or tremor. Results Labs 06/18/25 06:45 06/18/25 07:57 Labs: Short CBC 06/18/25 06/18/25 Range/Units 05:57 06:45 WBC 6.9 6.8 (4.8-10.8) X10*3/uL Hgb 7.5 L 7.7 L (14.0-18.0) g/dl Hct 23.1 L 24.0 L (42.0-52.0) % Plt Count 123 L D 103 L (160-400) X10*3/uL BMP 06/18/25 06/18/25 06:45 07:57 Sodium 137 136 Potassium 3.6 3.5 Chloride 105 104 Carbon Dioxide 24 25 BUN 12 12 Creatinine 0.84 0.81 Calcium 8.4 8.3 L Cardiac Enzymes 06/18/25 Range/Units 15:01 Total Creatine Kinase 9 L (38-174) U/L CT head without contrast Comparison: CT/REG/SR - CT HEAD/BRAIN WO IV CON - 04/25/25 07:37 EDT Findings: No intra-axial mass, midline shift, hydrocephalus, or acute hemorrhage. There is atrophy. There are mild nonspecific supratentorial white matter hypodensities most suggestive of chronic small-vessel ischemic changes. Atherosclerotic vascular disease. Minimal mucosal thickening and very small mucous retention cyst/polyp in right maxillary sinus. Otherwise sinuses and mastoid air cells are clear. The orbits are within normal limits. There is no acute skull fracture. IMPRESSION: 1. No acute intracranial findings. Microbiology Microbiology Results: Microbiology 06/16/25 Unknown Urine clean catch - Clean Catch Midstream Urine Culture - Preliminary Proteus species 06/16/25 14:09 Blood - Venous Blood Culture - Preliminary No growth after 24 hours. 06/16/25 14:09 Blood - Venous Blood Culture - Preliminary No growth after 24 hours. 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 I am not sure if there was any acute myopathic or neuropathic process. Mainstay of management is treatment of underlying infectious/toxic process, avoidance of alcohol, vitamin supplementations, in involvement of PT OT. This type of patient can easily become very weak if there sick with any medical illness due to limited underlying neurological reserve. Procedures Date of Service Date of Service: 06/18/25
[2025-06-18 16:46] LABS: Procalcitonin 0.10 ng/mL
[2025-06-18 19:07] VITALS: BP 155/85; PULSE 72; RESP 18; TEMP 37.2; O2SAT 98
[2025-06-18 22:58] VITALS: BP 133/71; PULSE 76; RESP 18; TEMP 37.6; O2SAT 94
[2025-06-19 03:27] VITALS: BP 138/76; PULSE 65; RESP 18; TEMP 37; O2SAT 96
[2025-06-19 07:16] VITALS: BP 157/74; PULSE 69; RESP 20; TEMP 37.2; O2SAT 99
[2025-06-19] MEDS: Metoprolol Succinate ER 25 MG TAB.ER.24H PO (09:52)
[2025-06-19] MEDS: 0.9 % Sodium Chloride Flush 3 ML SYRINGE IVFLUSH ×3 (09:53→20:23)
[2025-06-19 10:44] LABS: MANUAL DIFF FLAG NO
[2025-06-19 10:48] LABS: Hematocrit 24.7 % (42.0-52.0); Hemoglobin 8.0 g/dl (14.0-18.0); Imm Gran Abs Auto 0.07 X10*3/uL (0.00-0.03); Imm Gran Pct Auto 0.8 % (0.0-0.4); Lymphocytes Absolute Auto 1.1 X10*3/uL (1.2-4.9); Mean Corpuscular HGB Conc 32.4 g/dl (31.0-36.0); Mean Corpuscular Hemoglobin 29.2 pg (27.0-33.0); Mean Corpuscular Volume 90.1 fL (80.0-98.0); NRBC Abs Auto 0.000 X10*3/uL (0.0-0.012); NRBC Pct Auto 0.0 /100WBC (0.0-0.2); Platelet Count 136 X10*3/uL (160-400); Red Blood Count 2.74 X10*6/uL (4.60-5.80); White Blood Count 8.8 X10*3/uL (4.8-10.8)
--- NOTE | 2025-06-19 10:54 | PM.GICN ---
History of Present Illness Data of Consult Service Date: 06/19/25 Requesting physician: Joshua Mcwilliams Primary Care Provider: MD SABINE Dobbins Reason for consult: Mesenteritis This is a 65-year-old gentleman with medical history of alcohol use disorder, renal cell carcinoma, CKD stage 3, ascending aortic aneurysm, previous DVT, who presented to the hospital on 06/16 for abdominal pain with hematochezia with course complicated by upper extremity weakness. Patient reports sx onset almost 6 days ago after eating out the day before and therefore the diarrhea was initially attributed to infectious colitis. Was seen by ID and was started on levofloxacin. Gastroenterology has been consulted today for mesenteritis. Pt seen at bedside and reports no abd pain or diarrhea x 3 days now. Main complaint is generalized body pain with weakness of both arms L>R. Reports this is progressive and today unable to even hold a cup of water or a spoon to feed himself. Review of Systems Review of Systems: Yes all other systems are reviewed and are negative PMFSH Past Medical History Medical History Abdominal wall abscess at site of surgical wound CKD stage 3a, GFR 45-59 ml/min Colitis Renal mass Renal cell carcinoma Alcohol use disorder Hyperlipidemia Ascending aortic aneurysm Alcoholic steatohepatitis Seborrheic dermatitis DEBORAH (obstructive sleep apnea) History of rhabdomyolysis Hx of lower gastrointestinal bleeding Hx of sepsis History of DVT of lower extremity Chronic ulcer of leg Chronic venous stasis HTN (hypertension) Anemia Anemia Family History Family History Mother Dementia Maternal Grandmother Dementia Family history: reviewed and not pertinent Surgical History Surgical History H/O partial nephrectomy Hx of colonoscopy Social History Social History Household Members: Family Household Members Other:: mother who has dementia Housing: House Housing Other:: 4 stairs to get into house. Pt lives in basement Do you presently have visiting nurse or other home services: Yes (wound care and nurse) Alcohol intake: current Alcohol intake frequency: 3 or more drinks per day Alcohol type: hard liquor Comment: pt refused socks Patient Tobacco Use Status: Never used Tobacco Advance Directives Date on File: 04/13/22 service: No Current occupational status: disabled Meds Allergies Allergy/AdvReac Type Severity Reaction Status Date / Time azithromycin (AZITHROMYCIN) Allergy Severe FACIAL Verified 06/16/25 08:12 SWELLING hydrochlorothiazide (HCTZ) Allergy Severe Facial Verified 06/16/25 08:12 Swelling Active Medications: Current Medications Acetaminophen (Acetaminophen 325 Mg Tablet) 650 mg PO Q4H PRN PRN Reason: Pain (Scale Score 4-6) Last Admin: 06/16/25 21:09 Dose: 650 mg Allopurinol (Allopurinol 300 Mg Tablet) 300 mg PO DAILY [facility] Last Admin: 06/19/25 09:52 Dose: 300 mg Calcium Carbonate (Calcium Carbonate 750 Mg Tab.Chew) 750 mg PO Q4H PRN PRN Reason: Heartburn Doxycycline Monohydrate (Doxycycline Monohydrate 100 Mg Capsule) 100 mg PO Q12H [facility] Folic Acid (Folic Acid 1 Mg Tablet) 1 mg PO DAILY [facility] Last Admin: 06/19/25 09:53 Dose: 1 mg Hydralazine HCl (Hydralazine Hcl 20 Mg/Ml Vial) 5 mg IVPUSH Q6H PRN; Protocol PRN Reason: SBP > 160 Hydromorphone HCl (Hydromorphone Hcl 1 Mg/Ml Syringe) 1 mg IVPUSH Q6H PRN; Protocol PRN Reason: Pain, Severe (Pain Scale 7-10) Last Admin: 06/19/25 04:33 Dose: 1 mg Ceftriaxone Sodium 2 gm/ (Sodium Chloride) 50 mls @ 100 mls/hr IV Q24H [facility] Last Infusion: 06/18/25 15:45 Dose: Infused Magnesium Hydroxide (Milk Of Magnesia 30 Ml Oral.Susp) 30 ml PO DAILY PRN PRN Reason: Constipation Magnesium Oxide (Magnesium Oxide 400 Mg Tablet) 400 mg PO DAILY [facility] Last Admin: 06/19/25 09:53 Dose: 400 mg Melatonin (Melatonin 3 Mg Tablet) 6 mg PO BEDTIME PRN PRN Reason: Insomnia Metoprolol Succinate (Metoprolol Succinate Er 25 Mg Tab.Er.24h) 25 mg PO DAILY [facility]; Protocol Last Admin: 06/19/25 09:52 Dose: 25 mg Ondansetron HCl (Ondansetron Hcl 4 Mg/2 Ml Vial) 4 mg IVPUSH Q8H PRN PRN Reason: Nausea and Vomiting Last Admin: 06/18/25 12:45 Dose: 4 mg Pyridoxine HCl (Pyridoxine Hcl (Vitamin B6) 50 Mg Tablet) 50 mg PO DAILY [facility] Last Admin: 06/19/25 09:53 Dose: 50 mg Sodium Chloride (0.9 % Sodium Chloride Flush 3 Ml Syringe) 3 ml IVFLUSH QSHIFT [facility] Last Admin: 06/19/25 09:53 Dose: 3 ml Thiamine HCl (Thiamine Hcl 100 Mg Tablet) 100 mg PO DAILY [facility] Last Admin: 06/19/25 09:53 Dose: 100 mg Home Medications ?Medication ?Instructions ?Recorded ?Confirmed ?Last Taken ?Type allopurinol 300 mg tablet 300 mg PO DAILY 07/29/24 06/16/25 3 Days Ago History ~01/19/25 ascorbate calcium (vitamin C) 500 500 mg PO BID 07/29/24 06/16/25 3 Days Ago History mg tablet ~01/19/25 cholecalciferol (vitamin D3) 50 50 mcg PO DAILY 10/16/24 06/16/25 3 Days Ago History mcg (2,000 unit) tablet (Vitamin ~01/19/25 D3) ferrous sulfate 325 mg (65 mg 325 mg PO DAILY 10/16/24 06/16/25 3 Days Ago History iron) tablet,delayed release ~01/19/25 pyridoxine (vitamin B6) 50 mg 50 mg PO DAILY 10/16/24 06/16/25 3 Days Ago History tablet (Vitamin B-6) ~01/19/25 thiamine HCl (vitamin B1) 100 mg 100 mg PO DAILY 10/16/24 06/16/25 3 Days Ago History tablet (Vitamin B-1) ~01/19/25 acetaminophen 325 mg tablet 650 mg PO Q4H PRN Pain (Scale 01/22/25 06/16/25 Unknown History Score 4-6) metoprolol succinate 25 mg 25 mg PO DAILY 01/22/25 06/16/25 Unknown History tablet,extended release 24 hr Physical Exam Exam: Exam: Obese male appears older than stated age abd soft, nontender, nondistended, no guarding L lower extremity in clean dry dressing RUE motor strength 4/5, LUE motor strength 3/5 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 Vital Signs: Vital Signs: Last Vital Signs Temp 99.0 F 06/19/25 07:16 Pulse 69 06/19/25 07:16 Resp 20 06/19/25 07:16 BP 157/74 H 06/19/25 07:16 Pulse Ox 99 06/19/25 07:16 O2 Del Method Room Air 06/19/25 07:16 BMI result Body Mass Index 35.5 Results Labs 06/19/25 10:30 06/19/25 10:30 Labs: Short CBC 06/19/25 Range/Units 10:30 WBC 8.8 (4.8-10.8) X10*3/uL Hgb 8.0 L (14.0-18.0) g/dl Hct 24.7 L (42.0-52.0) % Plt Count 136 L D (160-400) X10*3/uL Cardiac Enzymes 06/18/25 Range/Units 15:01 Total Creatine Kinase 9 L (38-174) U/L Microbiology Microbiology Results: Microbiology 06/16/25 Unknown Urine clean catch - Clean Catch Midstream Urine Culture - Final 06/16/25 14:09 Blood - Venous Blood Culture - Preliminary No growth after 48 hours. 06/16/25 14:09 Blood - Venous Blood Culture - Preliminary No growth after [address] scan - abdomen: Radiologist's impression: LIVER: Hepatomegaly measuring 19.9 cm. No focal lesions. GALLBLADDER AND BILIARY TREE: Partially contracted gallbladder. No gallstones. No biliary ductal dilatation. PANCREAS: No focal lesions or ductal dilatation. SPLEEN: No splenomegaly. No focal lesions. ADRENAL GLANDS: No nodules. KIDNEYS AND URETERS: Evidence of prior partial nephrectomy of the lower pole of the left kidney with similar adjacent postoperative changes. No hydronephrosis or renal stones on either side. Similar vaguely seen hypodense lesion in the midpole of the left kidney (3:). GASTROINTESTINAL TRACT: Small hiatal hernia. Small duodenal diverticulum. No bowel dilatation to suggest obstruction. Sigmoid colonic diverticulosis. PERITONEUM/RETROPERITONEUM: The overall appearance of the mesenteric haziness that also extends into the region of the bao hepatis appears mildly more prominent than previous examination on June 01, 2025. Chronic small subcentimeter nodularities along the posterior hepatic surface (3: and 3:), similar to 2022. No free fluid. No free air. ABDOMINAL WALL: No significant hernia is appreciated. LYMPH NODES: Multiple chronic prominent lymph nodes in bilateral inguinal regions. Assessment and Plan (1) Anemia: Qualifiers: Anemia type: iron deficiency Status: Acute (2) Acute infectious diarrhea: Status: Acute (3) Generalized weakness: Status: Acute Plan Patient reports resolution of GI sx x 3 days. His main complaint now is progressive motor weakness remy in upper extremities. Unfortunately stool studies were not collected as pt had resolution of diarrhea within a day of admission however overall presentation suspicious for Campylobacter related GI illness that has now evolved to possible GBS. Plan: - Recommend dedicated neuro evaluation - Consider MRI spine and/or EMG upper extremity - Decision for further testing such as CSF analysis for protein and white count as per neuro - From GI standpoint, he reports resolution of GI sx. Would recommend interval CT abd/pel in 4 weeks to ensure resolution of lymphadenopathy. Thank you for allowing me to participate in his care. Please do not hesitate to reach out for any questions or concerns. Procedures Date of Service Date of Service: 06/19/25
[2025-06-19 11:12] LABS: Anion Gap 12 (12-20); Blood Urea Nitrogen 17 mg/dL (9-16); Calcium 8.5 mg/dL (8.4-10.2); Carbon Dioxide 26 mmol/L (22-29); Chloride 101 mmol/L (96-108); Creatinine Clr Calc Pharmacy 82.7; Estimated Glomerular Filt Rate > 60; Potassium 3.7 mmol/L (3.3-5.1); Sodium 135 mmol/L (135-145)
[2025-06-19 11:15] LABS: Magnesium 1.4 mg/dL (1.6-2.6)
[2025-06-19 11:37] VITALS: BP 158/77; PULSE 73; RESP 20; TEMP 37.2; O2SAT 96
[2025-06-19] MEDS: Magnesium Sulfate/H2O 2 GM/50 ML PIGGYBACK IV (12:13)
[2025-06-19] MEDS: Furosemide 40 MG/4 ML VIAL IVPUSH ×2 (12:14→18:46)
[2025-06-19 14:45] LABS: Total Protein Urine Random < 7 mg/dL (<12)
[2025-06-19 15:40] VITALS: BP 146/63; PULSE 66; RESP 20; TEMP 36.7; O2SAT 98
--- NOTE | 2025-06-19 16:42 | HO.PM.IMPN ---
Subjective Subjective Date of Service: 06/19/25 Interval History: c/o generalized swelling and joint pain as well as weakness no abd pain and diarrhea has largely resolved last fever 101.1 on 06/16/25 Review of Systems Review of Systems: Yes all other systems are reviewed and are negative Physical Exam Vital Signs: Vital Signs: Last Vital Signs Temp 98.1 F 06/19/25 15:40 Pulse 66 06/19/25 15:40 Resp 20 06/19/25 15:40 BP 146/63 H 06/19/25 15:40 Pulse Ox 98 06/19/25 15:40 O2 Del Method Room Air 06/19/25 15:40 BMI result Body Mass Index 35.5 Gen: in no acute distress HEENT: sclera anicteric, moist mucus membranes Neck: supple Lungs: clear to auscultation bilaterally Heart: regular rate and rhythm, no murmurs Abd: soft, non-tender, non-distended Ext: 1+ edema of arms and legs bilaterally Skin: warm/well-perfused Neuro: alert and oriented x3, generalized weakness Psych: appropriate affect Objective Data Active Medications Acetaminophen (Acetaminophen 325 Mg Tablet) 650 mg PO Q4H PRN PRN Reason: Pain (Scale Score 4-6) Last Admin: 06/16/25 21:09 Dose: 650 mg Documented By: MARK Allopurinol (Allopurinol 300 Mg Tablet) 300 mg PO DAILY [facility] Last Admin: 06/19/25 09:52 Dose: 300 mg Documented By: ANAI Calcium Carbonate (Calcium Carbonate 750 Mg Tab.Chew) 750 mg PO Q4H PRN PRN Reason: Heartburn Doxycycline Monohydrate (Doxycycline Monohydrate 100 Mg Capsule) 100 mg PO Q12H [facility] Last Admin: 06/19/25 11:29 Dose: 100 mg Documented By: ANAI Folic Acid (Folic Acid 1 Mg Tablet) 1 mg PO DAILY [facility] Last Admin: 06/19/25 09:53 Dose: 1 mg Documented By: ANAI Furosemide (Furosemide 40 Mg/4 Ml Vial) 40 mg IVPUSH BID@0900,1800 [facility]; Protocol Last Admin: 06/19/25 12:14 Dose: 40 mg Documented By: ANAI Hydralazine HCl (Hydralazine Hcl 20 Mg/Ml Vial) 5 mg IVPUSH Q6H PRN; Protocol PRN Reason: SBP > 160 Hydromorphone HCl (Hydromorphone Hcl 1 Mg/Ml Syringe) 1 mg IVPUSH Q6H PRN; Protocol PRN Reason: Pain, Severe (Pain Scale 7-10) Last Admin: 06/19/25 04:33 Dose: 1 mg Documented By: ROLY Ceftriaxone Sodium 2 gm/ (Sodium Chloride) 50 mls @ 100 mls/hr IV Q24H [facility] Last Infusion: 06/19/25 14:38 Dose: Infused Documented By: ANAI Magnesium Hydroxide (Milk Of Magnesia 30 Ml Oral.Susp) 30 ml PO DAILY PRN PRN Reason: Constipation Magnesium Oxide (Magnesium Oxide 400 Mg Tablet) 400 mg PO DAILY [facility] Last Admin: 06/19/25 09:53 Dose: 400 mg Documented By: ANAI Melatonin (Melatonin 3 Mg Tablet) 6 mg PO BEDTIME PRN PRN Reason: Insomnia Metoprolol Succinate (Metoprolol Succinate Er 25 Mg Tab.Er.24h) 25 mg PO DAILY [facility]; Protocol Last Admin: 06/19/25 09:52 Dose: 25 mg Documented By: ANAI Ondansetron HCl (Ondansetron Hcl 4 Mg/2 Ml Vial) 4 mg IVPUSH Q8H PRN PRN Reason: Nausea and Vomiting Last Admin: 06/18/25 12:45 Dose: 4 mg Documented By: LIZZETH Pyridoxine HCl (Pyridoxine Hcl (Vitamin B6) 50 Mg Tablet) 50 mg PO DAILY [facility] Last Admin: 06/19/25 09:53 Dose: 50 mg Documented By: ANAI Sodium Chloride (0.9 % Sodium Chloride Flush 3 Ml Syringe) 3 ml IVFLUSH QSHIFT [facility] Last Admin: 06/19/25 09:53 Dose: 3 ml Documented By: ANAI Thiamine HCl (Thiamine Hcl 100 Mg Tablet) 100 mg PO DAILY [facility] Last Admin: 06/19/25 09:53 Dose: 100 mg Documented By: ANAI Labs 06/19/25 10:30 06/19/25 10:30 Labs: Laboratory Results - last 24 hr 06/18/25 06/19/25 06/19/25 15:01 10:30 14:05 MCV 90.1 MCH 29.2 MCHC 32.4 RDW 16.7 H Plt Count 136 L D MPV 9.9 Immature Gran % (Auto) 0.8 H Neut % (Auto) 70.5 Lymph % (Auto) 12.4 L [place] % (Auto) 15.0 H Eos % (Auto) 0.8 Baso % (Auto) 0.5 Lymph # (Auto) 1.1 L [place] # (Auto) 1.3 H Eos # (Auto) 0.1 Baso # (Auto) 0.0 Abs Immat Gran (auto) 0.07 H Absolute Neuts (auto) 6.2 Absolute Nucleated RBC 0.000 Nucleated RBC % (auto) 0.0 Anion Gap 12 Estim Creat Clear Calc 82.7 Estimated GFR > 60 Random Glucose 142 H Calcium 8.5 Magnesium 1.4 L* Procalcitonin 0.10 U Random Total Protein < 7 Urine Creatinine 9.51 Microbiology Microbiology Results: Microbiology 06/16/25 Unknown Urine Culture - Final Urine clean catch - Clean Catch Midstream 06/16/25 14:09 Blood Culture - Preliminary Blood - Venous No growth after 48 hours. 06/16/25 14:09 Blood Culture - Preliminary Blood - Venous No growth after 48 hours. Assessment and Plan (1) Acute infectious diarrhea: Status: Acute (2) Venous stasis ulcer: Status: Acute (3) CKD stage 3a, GFR 45-59 ml/min: Status: Acute Plan d4 for 65yo M presenting with nonbloody diarrhea and fever, found to have mesenteric inflammation and started on levofloxacin, then meropenem, then ceftriaxone. Hospitalization complicated by worsening joint pain and generalized weakness gastroenteritis mestenritis - has largely resolved; on ceftriaxone as per ID; GI consulted; plan repeat CT A/P in 4 wk to ensure resolution of adenopathy generalized weakness - Neuro consulted; discussed possibility of GBS but felt to have more of an inflammatory process given elevated CRP + ESR; for now, treating other causes including possibility of tickborne illness with doxycycline [serologies + molecular studies pending]; also obtain MRI brain/C-spine coccygeal stage 2 pressure ulcers RLE venous stasis ulcers - Wound Care: Coccyx, left upper buttock: Off Load Pressure with Q2 hr turns and use of pillows - Cleanse with PH balance spray or wipes, pat dry. ?Apply thin layer of Triad to wound bed - only pat and dab no scrub and rub when soiling occurs. Reapply thin layer PRN after each episode of incontinence. Right leg: cleanse with saline, apply moisturizer per orders, apply xeroform to wound beds and surrounding, followed by ABD pad, wrap with rolled gauze, change daily and PRN. Left abdomen: apply protective foam, change every 3 days and PRN. Buttocks/perineum/groin: Off Load Pressure with Q2 hr turns and use of pillows - Cleanse with PH balance spray or wipes, pat dry. ?Apply thin layer of Triad to wound bed - only pat and dab no scrub and rub when soiling occurs. Reapply thin layer PRN after each episode of incontinence generalized edema - TTE with normal LVEF + diastolic function - no proteinuria - giving furosemide IV hypoMg - replete IV/PO, recheck level tomorrow anemia of chronic disease mild thrombocytopenia - counts stable, monitor CKD, hx left partial nephrectomy: SCr stable gout: allopurinol AUD: thiamine, folic acid VTE ppx: enoxaparin dispo: TBD In my clinical judgment, the patient requires continued inpatient hospitalization for the following reasons: weakness, IV ABX Total time managing care of this patient today: 45 minutes. Quality Stroke Does the patient have a stroke diagnosis?: No VTE Prior VTE?: No VTE Risk Level:: Medical - moderate - high VTE Device Contraindication: N/A - Device Ordered VTE Drug Contraindication: Treatment Not Indicated
[2025-06-19 19:09] LABS: CDiff Gene PCR NEGATIVE (Negative)
[2025-06-19 20:00] VITALS: BP 139/65; PULSE 70; RESP 18; TEMP 36.7; O2SAT 97
[2025-06-20] VITALS (7 sets, daily range): BP systolic 104–152; BP diastolic 55–69; PULSE 65–80; RESP 16–18; TEMP 36.8–38; O2SAT 93–97
[2025-06-20 08:10] LABS: Anion Gap 13 (12-20); Blood Urea Nitrogen 19 mg/dL (9-16); Calcium 8.5 mg/dL (8.4-10.2); Carbon Dioxide 28 mmol/L (22-29); Chloride 96 mmol/L (96-108); Creatinine Clr Calc Pharmacy 88.7; Estimated Glomerular Filt Rate > 60; Magnesium 1.5 mg/dL (1.6-2.6); Potassium 3.4 mmol/L (3.3-5.1); Sodium 134 mmol/L (135-145)
[2025-06-20] MEDS: 0.9 % Sodium Chloride Flush 3 ML SYRINGE IVFLUSH ×3 (08:16→22:10)
[2025-06-20] MEDS: Metoprolol Succinate ER 25 MG TAB.ER.24H PO (08:19)
[2025-06-20] MEDS: Furosemide 40 MG/4 ML VIAL IVPUSH ×2 (08:19→18:28)
[2025-06-20] MEDS: Magnesium Sulfate/H2O 2 GM/50 ML PIGGYBACK IV (09:05)
[2025-06-20 11:48] LABS: E. coli EAEC Not Detected (Not Detect.); E. coli EPEC Not Detected (Not Detect.); E. coli ETEC Not Detected (Not Detect.); E. coli STEC Not Detected (Not Detect.); Shigella sp./EIEC Not Detected (Not Detect.)
--- NOTE | 2025-06-20 13:04 | HO.PM.IMPN ---
Subjective Subjective Date of Service: 06/20/25 Interval History: worsening weakness remy of arms diarrhea resolved no abd pain generalized swelling Review of Systems Review of Systems: Yes all other systems are reviewed and are negative Physical Exam Vital Signs: Vital Signs: Last Vital Signs Temp 99.2 F 06/20/25 12:00 Pulse 70 06/20/25 12:00 Resp 16 06/20/25 12:00 BP 136/68 06/20/25 12:00 Pulse Ox 94 06/20/25 12:00 O2 Del Method Room Air 06/20/25 12:00 BMI result Body Mass Index 35.5 Gen: in no acute distress HEENT: sclera anicteric, moist mucus membranes Neck: supple Lungs: clear to auscultation bilaterally Heart: regular rate and rhythm, no murmurs Abd: soft, non-tender, non-distended Ext: 1+ edema of arms and legs bilaterally Skin: warm/well-perfused Neuro: alert and oriented x3, generalized weakness, arms worse than legs Psych: appropriate affect Objective Data Active Medications Acetaminophen (Acetaminophen 325 Mg Tablet) 650 mg PO Q4H PRN PRN Reason: Pain (Scale Score 4-6) Last Admin: 06/16/25 21:09 Dose: 650 mg Documented By: MARK Allopurinol (Allopurinol 300 Mg Tablet) 300 mg PO DAILY [facility] Last Admin: 06/20/25 08:19 Dose: 300 mg Documented By: ANAI Calcium Carbonate (Calcium Carbonate 750 Mg Tab.Chew) 750 mg PO Q4H PRN PRN Reason: Heartburn Doxycycline Monohydrate (Doxycycline Monohydrate 100 Mg Capsule) 100 mg PO Q12H [facility] Last Admin: 06/20/25 11:38 Dose: 100 mg Documented By: ANAI Folic Acid (Folic Acid 1 Mg Tablet) 1 mg PO DAILY [facility] Last Admin: 06/20/25 08:19 Dose: 1 mg Documented By: ANAI Furosemide (Furosemide 40 Mg/4 Ml Vial) 40 mg IVPUSH BID@0900,1800 [facility]; Protocol Last Admin: 06/20/25 08:19 Dose: 40 mg Documented By: ANAI Hydralazine HCl (Hydralazine Hcl 20 Mg/Ml Vial) 5 mg IVPUSH Q6H PRN; Protocol PRN Reason: SBP > 160 Hydromorphone HCl (Hydromorphone Hcl 1 Mg/Ml Syringe) 1 mg IVPUSH Q6H PRN; Protocol PRN Reason: Pain, Severe (Pain Scale 7-10) Last Admin: 06/19/25 20:20 Dose: 1 mg Documented By: ROLY Ceftriaxone Sodium 2 gm/ (Sodium Chloride) 50 mls @ 100 mls/hr IV Q24H [facility] Last Infusion: 06/19/25 14:38 Dose: Infused Documented By: ANAI Magnesium Hydroxide (Milk Of Magnesia 30 Ml Oral.Susp) 30 ml PO DAILY PRN PRN Reason: Constipation Magnesium Oxide (Magnesium Oxide 400 Mg Tablet) 400 mg PO DAILY [facility] Last Admin: 06/20/25 08:19 Dose: 400 mg Documented By: ANAI Melatonin (Melatonin 3 Mg Tablet) 6 mg PO BEDTIME PRN PRN Reason: Insomnia Metoprolol Succinate (Metoprolol Succinate Er 25 Mg Tab.Er.24h) 25 mg PO DAILY [facility]; Protocol Last Admin: 06/20/25 08:19 Dose: 25 mg Documented By: ANAI Ondansetron HCl (Ondansetron Hcl 4 Mg/2 Ml Vial) 4 mg IVPUSH Q8H PRN PRN Reason: Nausea and Vomiting Last Admin: 06/18/25 12:45 Dose: 4 mg Documented By: LIZZETH Pyridoxine HCl (Pyridoxine Hcl (Vitamin B6) 50 Mg Tablet) 50 mg PO DAILY [facility] Last Admin: 06/20/25 08:18 Dose: 50 mg Documented By: ANAI Sodium Chloride (0.9 % Sodium Chloride Flush 3 Ml Syringe) 3 ml IVFLUSH QSHIFT [facility] Last Admin: 06/20/25 08:16 Dose: 3 ml Documented By: ANAI Thiamine HCl (Thiamine Hcl 100 Mg Tablet) 100 mg PO DAILY [facility] Last Admin: 06/20/25 08:19 Dose: 100 mg Documented By: ANAI Labs 06/19/25 10:30 06/20/25 06:45 Labs: Laboratory Results - last 24 hr 06/19/25 06/19/25 06/20/25 14:05 17:42 06:45 Hold Purple Top SEE NOTE Anion Gap 13 Estim Creat Clear Calc 88.7 Estimated GFR > 60 Random Glucose 100 Calcium 8.5 Magnesium 1.5 L NT-Pro-B Natriuret Pep 4765.8 H U Random Total Protein < 7 Urine Creatinine 9.51 Stl C. cayetanensis PCR Not Detected Stool Rotavirus A PCR Not Detected Stl Adenov F 40/41 PCR Not Detected Stool Astrovirus (PCR) Not Detected Stool Campylobacter PCR Not Detected Stool Cryptosporidium PCR Not Detected Stl Sh Tox Pr E STEC PCR Not Detected Stool E coli O157 PCR Not applicable Stl Enterotoxigenic E PCR Not Detected Stool EPEC (PCR) Not Detected Stool EAEC (PCR) Not Detected Stl E. histolytica PCR Not Detected Stool Giardia Lamblia PCR Not Detected Stl P. shigelloides PCR Not Detected Stool Salmonella PCR Not Detected Stool Sapovirus (PCR) Not Detected Stl Shigella/EIEC PCR Not Detected St Y.enterocolitica PCR Not Detected Stool Vibrio (PCR) Not Detected Stl Vibrio cholerae PCR Not Detected Stl Norovirus GI/GII PCR Not Detected C. difficile Tox B Gene NEGATIVE Assessment and Plan (1) Acute infectious diarrhea: Status: Acute (2) Venous stasis ulcer: Status: Acute (3) CKD stage 3a, GFR 45-59 ml/min: Status: Acute Plan d5 for 65yo M presenting with nonbloody diarrhea and fever, found to have mesenteric inflammation and started on levofloxacin, then meropenem, then ceftriaxone. Hospitalization complicated by worsening joint pain and generalized weakness gastroenteritis mestenritis - has largely resolved; on ceftriaxone as per ID; GI consulted; plan repeat CT A/P in 4 wk to ensure resolution of adenopathy; C diff + GI panel negative generalized weakness - Neuro consulted; discussed possibility of GBS but felt to have more of an inflammatory process given elevated CRP + ESR; for now, treating other causes including possibility of tickborne illness with doxycycline [serologies + molecular studies pending]; also obtain MRI brain/C-spine; will order LP for tomorrow and re-consult Neuro coccygeal stage 2 pressure ulcers RLE venous stasis ulcers - Wound Care: Coccyx, left upper buttock: Off Load Pressure with Q2 hr turns and use of pillows - Cleanse with PH balance spray or wipes, pat dry. ?Apply thin layer of Triad to wound bed - only pat and dab no scrub and rub when soiling occurs. Reapply thin layer PRN after each episode of incontinence. Right leg: cleanse with saline, apply moisturizer per orders, apply xeroform to wound beds and surrounding, followed by ABD pad, wrap with rolled gauze, change daily and PRN. Left abdomen: apply protective foam, change every 3 days and PRN. Buttocks/perineum/groin: Off Load Pressure with Q2 hr turns and use of pillows - Cleanse with PH balance spray or wipes, pat dry. ?Apply thin layer of Triad to wound bed - only pat and dab no scrub and rub when soiling occurs. Reapply thin layer PRN after each episode of incontinence generalized edema - TTE with normal LVEF + diastolic function - no proteinuria - continue furosemide IV hypoMg - replete IV/PO, recheck level tomorrow anemia of chronic disease mild thrombocytopenia - counts stable, monitor CKD, hx left partial nephrectomy: SCr stable gout: allopurinol AUD: thiamine, folic acid VTE ppx: enoxaparin dispo: TBD In my clinical judgment, the patient requires continued inpatient hospitalization for the following reasons: weakness, IV ABX Total time managing care of this patient today: 45 minutes. Quality Stroke Does the patient have a stroke diagnosis?: No VTE Prior VTE?: No VTE Risk Level:: Medical - moderate - high VTE Device Contraindication: N/A - Device Ordered VTE Drug Contraindication: Treatment Not Indicated
[2025-06-21 03:39] VITALS: BP 112/63; PULSE 51; RESP 19; TEMP 36.4; O2SAT 96
[2025-06-21 07:21] LABS: Hematocrit 25.2 % (42.0-52.0); Hemoglobin 8.2 g/dl (14.0-18.0); Mean Corpuscular HGB Conc 32.5 g/dl (31.0-36.0); Mean Corpuscular Hemoglobin 28.7 pg (27.0-33.0); Mean Corpuscular Volume 88.1 fL (80.0-98.0); NRBC Abs Auto 0.000 X10*3/uL (0.0-0.012); NRBC Pct Auto 0.0 /100WBC (0.0-0.2); Platelet Count 183 X10*3/uL (160-400); Red Blood Count 2.86 X10*6/uL (4.60-5.80); White Blood Count 8.1 X10*3/uL (4.8-10.8)
[2025-06-21 07:41] LABS: Anion Gap 12 (12-20); Blood Urea Nitrogen 30 mg/dL (9-16); Calcium 8.8 mg/dL (8.4-10.2); Carbon Dioxide 29 mmol/L (22-29); Chloride 98 mmol/L (96-108); Creatinine Clr Calc Pharmacy 84.3; Estimated Glomerular Filt Rate > 60; Magnesium 1.7 mg/dL (1.6-2.6); Potassium 3.4 mmol/L (3.3-5.1); Sodium 136 mmol/L (135-145)
[2025-06-21 07:48] VITALS: BP 128/60; PULSE 69; RESP 16; TEMP 36.6; O2SAT 98
[2025-06-21] MEDS: Metoprolol Succinate ER 25 MG TAB.ER.24H PO (09:22)
[2025-06-21] MEDS: Furosemide 40 MG/4 ML VIAL IVPUSH (09:22)
[2025-06-21] MEDS: 0.9 % Sodium Chloride Flush 3 ML SYRINGE IVFLUSH ×2 (09:23→21:26)
--- NOTE | 2025-06-21 11:31 | MHC.CM.PN ---
EMR REVIEWED, PT W/ETOH WITHDRAWAL/WEAKNESS, MRI'S NEGATIVE FOR DEMYELINATION, ADDICTION MEDICINE CONSULT PENDING, PT REMAINS ON IV ABX/LASIX AND PHENO PROTOCOL, P.T. RECOMMENDING HOME SERVICES, [facility] FOLLOWING, [facility].
--- NOTE | 2025-06-21 11:36 | MHC.CM.PN ---
LATE ENTRY NOTE FOR 06/18/25, PT W/ETOH WITHDRAWAL/DIARRHEA, PER HOSPITALIST PT NOT YET READY FOR DC, PT/OT RECOMMENDS HOME SERVICES, PT ACTIVE W/[employer], CM WILL CONT TO FOLLOW DC NEEDS.
[2025-06-21 12:00] VITALS: BP 126/65; PULSE 64; RESP 16; TEMP 36.9; O2SAT 95
--- NOTE | 2025-06-21 13:36 | MHC.CLN ---
F/U PT WITH INCREASED NUTRITION RISK R/T PRESSURE INJURY PO INTAKE 50% X2 MEALS DIET RX: 2GM NA DIET RECEIVING ENSURE TID TO PROMOTE WOUND HEALING SUPP PROVIDES 1050KCALS, 60G PROTEIN MONITOR PO INTAKE AND ENCOURAGE SUPPLEMENTS
[2025-06-21 15:45] VITALS: BP 106/58; PULSE 72; RESP 16; TEMP 37.4; O2SAT 94
--- NOTE | 2025-06-21 16:55 | HO.PM.IMPN ---
Subjective Subjective Date of Service: 06/21/25 Interval History: sister present; states pt drinks heavily; pt states approx 1.5 qt of hard liquor q2-3d. Today he is tremulous. Leg weakness considerably improved. Generalized edema also improving. Upper extremity weakness also improved; LUE weakness, limited by anterior shoulder pain. no abd symptoms present Review of Systems Review of Systems: Yes all other systems are reviewed and are negative Physical Exam Vital Signs: Vital Signs: Last Vital Signs Temp 99.4 F 06/21/25 15:45 Pulse 72 06/21/25 15:45 Resp 16 06/21/25 15:45 BP 106/58 L 06/21/25 15:45 Pulse Ox 94 06/21/25 15:45 O2 Del Method Room Air 06/21/25 15:45 BMI result Body Mass Index 35.5 Gen: in no acute distress but tremulous HEENT: sclera anicteric, moist mucus membranes Neck: supple Lungs: clear to auscultation bilaterally Heart: regular rate and rhythm, no murmurs Abd: soft, non-tender, non-distended Ext: 1+ edema of arms and legs bilaterally Skin: warm/well-perfused Neuro: alert and oriented x3, legs with 4/5 symmetric strength, RUE with normal strength, LUE weak but limited by shoulder pain Psych: appropriate affect Objective Data Active Medications Acetaminophen (Acetaminophen 325 Mg Tablet) 650 mg PO Q4H PRN PRN Reason: Pain (Scale Score 4-6) Last Admin: 06/20/25 18:38 Dose: 650 mg Documented By: ANAI Allopurinol (Allopurinol 300 Mg Tablet) 300 mg PO DAILY [facility] Last Admin: 06/21/25 09:22 Dose: 300 mg Documented By: GILMAR Calcium Carbonate (Calcium Carbonate 750 Mg Tab.Chew) 750 mg PO Q4H PRN PRN Reason: Heartburn Doxycycline Monohydrate (Doxycycline Monohydrate 100 Mg Capsule) 100 mg PO Q12H [facility] Last Admin: 06/21/25 09:25 Dose: 100 mg Documented By: GILMAR Folic Acid (Folic Acid 1 Mg Tablet) 1 mg PO DAILY [facility] Last Admin: 06/21/25 09:22 Dose: 1 mg Documented By: GILMAR Furosemide (Furosemide 40 Mg/4 Ml Vial) 40 mg IVPUSH BID@0900,1800 [facility]; Protocol Last Admin: 06/21/25 09:22 Dose: 40 mg Documented By: GILMAR Hydralazine HCl (Hydralazine Hcl 20 Mg/Ml Vial) 5 mg IVPUSH Q6H PRN; Protocol PRN Reason: SBP > 160 Hydromorphone HCl (Hydromorphone Hcl 1 Mg/Ml Syringe) 1 mg IVPUSH Q6H PRN; Protocol PRN Reason: Pain, Severe (Pain Scale 7-10) Last Admin: 06/19/25 20:20 Dose: 1 mg Documented By: ROLY Magnesium Hydroxide (Milk Of Magnesia 30 Ml Oral.Susp) 30 ml PO DAILY PRN PRN Reason: Constipation Magnesium Oxide (Magnesium Oxide 400 Mg Tablet) 400 mg PO DAILY [facility] Last Admin: 06/21/25 09:22 Dose: 400 mg Documented By: GILMAR Melatonin (Melatonin 3 Mg Tablet) 6 mg PO BEDTIME PRN PRN Reason: Insomnia Metoprolol Succinate (Metoprolol Succinate Er 25 Mg Tab.Er.24h) 25 mg PO DAILY [facility]; Protocol Last Admin: 06/21/25 09:22 Dose: 25 mg Documented By: GILMAR Naltrexone HCl (Naltrexone Hcl 50 Mg Tablet) 50 mg PO DAILY [facility] Ondansetron HCl (Ondansetron Hcl 4 Mg/2 Ml Vial) 4 mg IVPUSH Q8H PRN PRN Reason: Nausea and Vomiting Last Admin: 06/18/25 12:45 Dose: 4 mg Documented By: LIZZETH Pharmacy Consult (Consult Rx Etoh Phenob Po Only) 1 each MISCELLANE ONCE PRN; Protocol PRN Reason: Consult order Phenobarbital 100 mg/ (Phenobarbital 60 mg) 160 mg PO Q3H [facility]; Protocol Stop: 06/21/25 17:01 Last Admin: 06/21/25 14:46 Dose: 160 mg Documented By: GILMAR Phenobarbital (Phenobarbital 15 Mg Tablet) 45 mg PO BID [facility]; Protocol Stop: 06/23/25 09:01 Phenobarbital (Phenobarbital 30 Mg Tablet) 30 mg PO BID [facility]; Protocol Stop: 06/25/25 09:01 Phenobarbital (Phenobarbital 30 Mg Tablet) 30 mg PO DAILY [facility]; Protocol Stop: 06/27/25 09:01 Pyridoxine HCl (Pyridoxine Hcl (Vitamin B6) 50 Mg Tablet) 50 mg PO DAILY [facility] Last Admin: 06/21/25 09:22 Dose: 50 mg Documented By: GILMAR Sodium Chloride (0.9 % Sodium Chloride Flush 3 Ml Syringe) 3 ml IVFLUSH QSHIFT [facility] Last Admin: 06/21/25 09:23 Dose: 3 ml Documented By: GILMAR Thiamine HCl (Thiamine Hcl 100 Mg Tablet) 100 mg PO DAILY [facility] Last Admin: 06/21/25 09:22 Dose: 100 mg Documented By: GILMAR Labs 06/21/25 06:29 06/21/25 06:29 Labs: Laboratory Results - last 24 hr 06/21/25 06:29 MCV 88.1 MCH 28.7 MCHC 32.5 RDW 17.0 H Plt Count 183 D MPV 9.5 Absolute Nucleated RBC 0.000 Nucleated RBC % (auto) 0.0 Anion Gap 12 Estim Creat Clear Calc 84.3 Estimated GFR > 60 Random Glucose 109 Calcium 8.8 Magnesium 1.7 NT-Pro-B Natriuret Pep 2199.4 H Microbiology Microbiology Results: Microbiology 06/16/25 14:09 Blood Culture - Final Blood - Venous No growth after 5 days. 06/16/25 14:09 Blood Culture - Final Blood - Venous No growth after 5 days. Assessment and Plan (1) Acute infectious diarrhea: Status: Acute (2) Venous stasis ulcer: Status: Acute (3) CKD stage 3a, GFR 45-59 ml/min: Status: Acute Plan d6 for 65yo M presenting with nonbloody diarrhea and fever, found to have mesenteric inflammation; hospitalization complicated by generalized edema, worsening joint pain, UE>LE weakness, and now EtOH withdrawal AUD with withdrawal - start naltrexone, phenobarbital PO taper, thiamine/folate/multivitamin, Addiction Medicine consult mesenteritis, ?chronic - has resolved; stop ceftriaxone; GI consulted; plan repeat CT A/P in 4 wk to ensure resolution of adenopathy; C diff + GI panel negative generalized weakness - Neuro consulted; discussed possibility of GBS but then felt to have more of an inflammatory process given elevated CRP + ESR; for now, treating other causes including possibility of tickborne illness with doxycycline 06/19- [serologies + molecular studies pending]; no evidence of demyelination on MRI brain/C-spine. Weakness has improved and is now mostly in the LUE. Probably due to a combination of severe alcoholism and arthritis; will cancel LP. generalized edema - TTE with normal LVEF + diastolic function - no proteinuria - change IV to PO furosemide hypoMg - repleted, continue PO maintenance coccygeal stage 2 pressure ulcers RLE venous stasis ulcers - Wound Care: Coccyx, left upper buttock: Off Load Pressure with Q2 hr turns and use of pillows - Cleanse with PH balance spray or wipes, pat dry. ?Apply thin layer of Triad to wound bed - only pat and dab no scrub and rub when soiling occurs. Reapply thin layer PRN after each episode of incontinence. Right leg: cleanse with saline, apply moisturizer per orders, apply xeroform to wound beds and surrounding, followed by ABD pad, wrap with rolled gauze, change daily and PRN. Left abdomen: apply protective foam, change every 3 days and PRN. Buttocks/perineum/groin: Off Load Pressure with Q2 hr turns and use of pillows - Cleanse with PH balance spray or wipes, pat dry. ?Apply thin layer of Triad to wound bed - only pat and dab no scrub and rub when soiling occurs. Reapply thin layer PRN after each episode of incontinence anemia of chronic disease mild thrombocytopenia - likely due to EtOH; counts stable CKD, hx left partial nephrectomy: SCr stable gout: allopurinol VTE ppx: enoxaparin dispo: per PT will need STR In my clinical judgment, the patient requires continued inpatient hospitalization for the following reasons: phenobarbital taper, rehab placement Total time managing care of this patient today: 40 minutes. Quality Stroke Does the patient have a stroke diagnosis?: No VTE Prior VTE?: No VTE Risk Level:: Medical - moderate - high VTE Device Contraindication: N/A - Device Ordered VTE Drug Contraindication: Treatment Not Indicated
[2025-06-21 19:24] VITALS: BP 118/68; PULSE 72; RESP 18; TEMP 36.5; O2SAT 94
[2025-06-21 23:13] VITALS: BP 128/78; PULSE 62; RESP 18; TEMP 36.9; O2SAT 95
[2025-06-22 03:08] LABS: Lyme Abs Screen <0.90 index
[2025-06-22 03:40] VITALS: BP 128/76; PULSE 60; RESP 16; TEMP 36.6; O2SAT 96
[2025-06-22] MEDS: Metoprolol Succinate ER 25 MG TAB.ER.24H PO (07:27)
[2025-06-22] MEDS: 0.9 % Sodium Chloride Flush 3 ML SYRINGE IVFLUSH ×3 (07:27→21:24)
[2025-06-22 07:54] VITALS: BP 138/62; PULSE 63; RESP 16; TEMP 37.3; O2SAT 97
[2025-06-22 07:56] LABS: Anion Gap 13 (12-20); Blood Urea Nitrogen 40 mg/dL (9-16); Calcium 8.9 mg/dL (8.4-10.2); Carbon Dioxide 29 mmol/L (22-29); Chloride 98 mmol/L (96-108); Creatinine Clr Calc Pharmacy 88.7; Estimated Glomerular Filt Rate > 60; Magnesium 1.6 mg/dL (1.6-2.6); Potassium 3.8 mmol/L (3.3-5.1); Sodium 136 mmol/L (135-145)
[2025-06-22 08:05] LABS: NT Pro B Type Natriuretic Pept 1062.6 pg/mL (<300)
--- NOTE | 2025-06-22 11:05 | HO.PM.IMPN ---
Subjective Subjective Date of Service: 06/22/25 Interval History: sister has stated pt drinks heavily; pt states approx 1.5 qt of hard liquor q2-3d. To Leg weakness considerably improved. Generalized edema also improving. Upper extremity weakness also improved; LUE weakness, limited by anterior shoulder pain. no abd symptoms present Review of Systems Review of Systems: Yes all other systems are reviewed and are negative Physical Exam Vital Signs: Vital Signs: Last Vital Signs Temp 99.1 F 06/22/25 07:54 Pulse 63 06/22/25 07:54 Resp 16 06/22/25 07:54 BP 138/62 06/22/25 07:54 Pulse Ox 97 06/22/25 07:54 O2 Del Method Room Air 06/22/25 07:54 BMI result Body Mass Index 35.5 Objective Data Active Medications Acetaminophen (Acetaminophen 325 Mg Tablet) 650 mg PO Q4H PRN PRN Reason: Pain (Scale Score 4-6) Last Admin: 06/20/25 18:38 Dose: 650 mg Documented By: ANAI Allopurinol (Allopurinol 300 Mg Tablet) 300 mg PO DAILY [facility] Last Admin: 06/22/25 07:27 Dose: 300 mg Documented By: GILMAR Calcium Carbonate (Calcium Carbonate 750 Mg Tab.Chew) 750 mg PO Q4H PRN PRN Reason: Heartburn Doxycycline Monohydrate (Doxycycline Monohydrate 100 Mg Capsule) 100 mg PO Q12H [facility] Last Admin: 06/22/25 10:39 Dose: 100 mg Documented By: GILMAR Folic Acid (Folic Acid 1 Mg Tablet) 1 mg PO DAILY [facility] Last Admin: 06/22/25 07:27 Dose: 1 mg Documented By: GILMAR Furosemide (Furosemide 40 Mg Tablet) 40 mg PO DAILY [facility]; Protocol Last Admin: 06/22/25 07:27 Dose: 40 mg Documented By: GILMAR Hydralazine HCl (Hydralazine Hcl 20 Mg/Ml Vial) 5 mg IVPUSH Q6H PRN; Protocol PRN Reason: SBP > 160 Hydromorphone HCl (Hydromorphone Hcl 1 Mg/Ml Syringe) 1 mg IVPUSH Q6H PRN; Protocol PRN Reason: Pain, Severe (Pain Scale 7-10) Last Admin: 06/19/25 20:20 Dose: 1 mg Documented By: ROLY Magnesium Hydroxide (Milk Of Magnesia 30 Ml Oral.Susp) 30 ml PO DAILY PRN PRN Reason: Constipation Magnesium Oxide (Magnesium Oxide 400 Mg Tablet) 400 mg PO DAILY [facility] Last Admin: 06/22/25 07:27 Dose: 400 mg Documented By: GILMAR Melatonin (Melatonin 3 Mg Tablet) 6 mg PO BEDTIME PRN PRN Reason: Insomnia Metoprolol Succinate (Metoprolol Succinate Er 25 Mg Tab.Er.24h) 25 mg PO DAILY [facility]; Protocol Last Admin: 06/22/25 07:27 Dose: 25 mg Documented By: GILMAR Multivitamins/Vitamin C (Multivitamin Tablet) 1 tab PO DAILY [facility] Last Admin: 06/22/25 07:27 Dose: 1 tab Documented By: GILMAR Naltrexone HCl (Naltrexone Hcl 50 Mg Tablet) 50 mg PO DAILY [facility] Last Admin: 06/22/25 07:27 Dose: 50 mg Documented By: GILMAR Ondansetron HCl (Ondansetron Hcl 4 Mg/2 Ml Vial) 4 mg IVPUSH Q8H PRN PRN Reason: Nausea and Vomiting Last Admin: 06/18/25 12:45 Dose: 4 mg Documented By: LIZZETH Pharmacy Consult (Consult Rx Etoh Phenob Po Only) 1 each MISCELLANE ONCE PRN; Protocol PRN Reason: Consult order Phenobarbital (Phenobarbital 15 Mg Tablet) 45 mg PO BID [facility]; Protocol Stop: 06/23/25 09:01 Last Admin: 06/22/25 07:26 Dose: 45 mg Documented By: GILMAR Phenobarbital (Phenobarbital 30 Mg Tablet) 30 mg PO BID [facility]; Protocol Stop: 06/25/25 09:01 Phenobarbital (Phenobarbital 30 Mg Tablet) 30 mg PO DAILY [facility]; Protocol Stop: 06/27/25 09:01 Pyridoxine HCl (Pyridoxine Hcl (Vitamin B6) 50 Mg Tablet) 50 mg PO DAILY [facility] Last Admin: 06/22/25 07:27 Dose: 50 mg Documented By: GILMAR Sodium Chloride (0.9 % Sodium Chloride Flush 3 Ml Syringe) [address] [facility] Last Admin: 06/22/25 07:27 Dose: 3 ml Documented By: GILMAR Thiamine HCl (Thiamine Hcl 100 Mg Tablet) 100 mg PO DAILY [facility] Last Admin: 06/22/25 07:27 Dose: 100 mg Documented By: GILMAR Labs 06/21/25 06:29 06/22/25 07:28 Labs: Laboratory Results - last 24 hr 06/19/25 06/22/25 10:30 07:28 Anion Gap 13 Estim Creat Clear Calc 88.7 Estimated GFR > 60 Random Glucose 97 Calcium 8.9 Magnesium 1.6 NT-Pro-B Natriuret Pep 1062.6 H Lyme Screen IgG & IgM <0.90 Microbiology Microbiology Results: Microbiology 06/16/25 14:09 Blood Culture - Final Blood - Venous No growth after 5 days. 06/16/25 14:09 Blood Culture - Final Blood - Venous No growth after 5 days. Assessment and Plan (1) Acute infectious diarrhea: Status: Acute (2) Venous stasis ulcer: Status: Acute (3) CKD stage 3a, GFR 45-59 ml/min: Status: Acute Plan 65yo M presenting with nonbloody diarrhea and fever, found to have mesenteric inflammation; hospitalization complicated by generalized edema, worsening joint pain, UE>LE weakness, and now EtOH withdrawal AUD with withdrawal - continue naltrexone, phenobarbital PO taper, thiamine/folate/multivitamin, Addiction Medicine consult mesenteritis, ?chronic - has resolved; stop ceftriaxone; GI consulted; plan repeat CT A/P in 4 wk to ensure resolution of adenopathy; C diff + GI panel negative generalized weakness -Neuro consulted; discussed possibility of GBS but then felt to have more of an inflammatory process given elevated CRP + ESR; for now, treating other causes including possibility of tickborne illness with doxycycline 06/19- [serologies + molecular studies pending]; no evidence of demyelination on MRI brain/C-spine. Weakness has improved and is now mostly in the LUE. Probably due to a combination of severe alcoholism and arthritis; will cancel LP. generalized edema - TTE with normal LVEF + diastolic function - no proteinuria - change IV to PO furosemide hypoMg - repleted, continue PO maintenance coccygeal stage 2 pressure ulcers RLE venous stasis ulcers - Wound Care: Coccyx, left upper buttock: Off Load Pressure with Q2 hr turns and use of pillows - Cleanse with PH balance spray or wipes, pat dry. ?Apply thin layer of Triad to wound bed - only pat and dab no scrub and rub when soiling occurs. Reapply thin layer PRN after each episode of incontinence. Right leg: cleanse with saline, apply moisturizer per orders, apply xeroform to wound beds and surrounding, followed by ABD pad, wrap with rolled gauze, change daily and PRN. Left abdomen: apply protective foam, change every 3 days and PRN. Buttocks/perineum/groin: Off Load Pressure with Q2 hr turns and use of pillows - Cleanse with PH balance spray or wipes, pat dry. ?Apply thin layer of Triad to wound bed - only pat and dab no scrub and rub when soiling occurs. Reapply thin layer PRN after each episode of incontinence anemia of chronic disease mild thrombocytopenia - likely due to EtOH; counts stable CKD, hx left partial nephrectomy: SCr stable gout: allopurinol VTE ppx: enoxaparin dispo: per PT will need STR In my clinical judgment, the patient requires continued inpatient hospitalization for the following reasons: phenobarbital taper, rehab placement Total time managing care of this patient today: 40 minutes. Quality Stroke Does the patient have a stroke diagnosis?: No VTE Prior VTE?: No VTE Risk Level:: Medical - moderate - high VTE Device Contraindication: N/A - Device Ordered VTE Drug Contraindication: Treatment Not Indicated
[2025-06-22 11:14] VITALS: BP 118/58; PULSE 63; RESP 16; TEMP 36.9; O2SAT 95
[2025-06-22 12:10] LABS: A. Phagocytphilium DNA,RT-PCR NOT DETECTED (NOT DETECTED); Babesia Microti DNA, RT-PCR NOT DETECTED (NOT DETECTED); Borrelia Miyamotoi,DNA RT-PCR NOT DETECTED (NOT DETECTED); E.Chaffeensis DNA RT-PCR NOT DETECTED (NOT DETECTED); Lyme(Borrelia ssp)DNA RT-PCR NOT DETECTED (NOT DETECTED)
[2025-06-22 15:08] VITALS: BP 136/76; PULSE 78; RESP 18; TEMP 37.4; O2SAT 95
--- NOTE | 2025-06-22 16:08 | MHC.CM.PN ---
PT/OT EVALUATED PATIENT AND ARE RECOMMENDING STR. THIS CM MET WITH PATIENT TO DISCUSS STR OPTIONS, LIST OF LOCAL SNF'S PRINTED FROM [facility] TO PROVIDE SOME OPTIONS TO PATIENT. STR REFERRALS SENT IN [facility], AWAITING BED OFFER. WILL REVIEW BED OFFERS WITH PATIENT WHEN AVAILABLE. PER PATIENT, NO PREFERENCE, THE FACILITY OFFERING A BED THAT IS CLOSEST IS WHERE HE WOULD LIKE TO GO.
--- NOTE | 2025-06-22 16:42 | HO.ADDICTCON ---
History of Present Illness Date of Service: 06/22/25 Chief Complaint: diarrhea Reason for Consult: AUD Sources of Information: patient interviewed and chart reviewed HPI Narrative: Patient is a 65 year old male medically admitted with nonbloody diarrhea and fever, found to have mesenteric inflammation; hospitalization complicated by generalized edema, worsening joint pain, UE>LE weakness, and now EtOH withdrawal Consult requested due to concern that patient developed alcohol withdrawal sx several days into medical admission. Phenobarbital initiated. Patient seen in room 471. He was asleep upon approach, but woke to voice. Somewhat irritable when asked about alcohol use. Denies any withdrawal sx. Mild tremor noted. He states that he had previously been taking naltrexone, but missed appt and did not get refills. He is somewhat evasive regarding how much he is drinking, however chart review shows that family member reported he is drinking more than a quart of hard liquor every 2-3 days. Additional history obtained by [facility] specialist and reviewed Labs reviewed No restlessness noted denies gi sx, eating lunch without issue during visit Review of Systems Constitutional: Reports as per HPI Diagnostics Vital Signs (24Hr): Vital Signs - 24 hr 06/21/25 19:24 06/21/25 23:13 06/22/25 03:40 Temperature 97.7 F 98.5 F 97.9 F Pulse Rate 72 62 60 Respiratory Rate 18 18 16 Blood Pressure 118/68 128/78 128/76 Pulse Oximetry 94 95 96 Oxygen Delivery Method Room Air Room Air Room Air 06/22/25 07:54 06/22/25 11:14 06/22/25 15:08 Temperature 99.1 F 98.5 F 99.3 F Pulse Rate 63 63 78 Respiratory Rate 16 16 18 Blood Pressure 138/62 118/58 L 136/76 Pulse Oximetry 97 95 95 Oxygen Delivery Method Room Air Room Air Room Air BMI result Body Mass Index 35.5 Labs 06/21/25 06:29 06/22/25 07:28 Labs: Laboratory Results - last 48 hr 06/19/25 06/21/25 06/22/25 10:30 06:29 07:28 WBC 8.1 RBC 2.86 L Hgb 8.2 L Hct 25.2 L MCV 88.1 MCH 28.7 MCHC 32.5 RDW 17.0 H Plt Count 183 D MPV 9.5 Absolute Nucleated RBC 0.000 Nucleated RBC % (auto) 0.0 Sodium 136 136 Potassium 3.4 3.8 Chloride 98 98 Carbon Dioxide 29 29 Anion Gap 12 13 BUN 30 H 40 H Creatinine 1.01 0.96 Estim Creat Clear Calc 84.3 88.7 Estimated GFR > 60 > 60 Random Glucose 109 97 Calcium 8.8 8.9 Magnesium 1.7 1.6 NT-Pro-B Natriuret Pep 2199.4 H 1062.6 H A.phagocytophil DNA PCR NOT DETECTED Babesia microti DNA PCR NOT DETECTED Borrelia sp DNA (PCR) NOT DETECTED Lyme Screen IgG & IgM <0.90 Lyme Progressive Test TNP Borrelia miyamotoi (PCR) NOT DETECTED E.chaffeensis DNA (PCR) NOT DETECTED Tick-borne Disease PCR SEE NOTE Imaging Radiology Impressions: ITS Impressions Chest X-Ray 06/16/25 10:08 IMPRESSION: Cardiomegaly. No acute cardiopulmonary abnormality. Electronically signed by: Eric Juarez MD 06/16/2025 10:19 AM EDT RP Abdomen/Pelvis CT 06/16/25 10:31 IMPRESSION: 1. Mildly more prominent chronic findings suggestive of inflammatory changes in the mesentery, that also extends into the region of bao hepatis. 2. Additional chronic findings are unchanged, including hepatomegaly, left partial nephrectomy, probably inguinal lymph nodes and sigmoid colonic diverticulosis. Electronically signed by: Alissa Malone MD 06/16/2025 11:38 AM EDT RP Tibia/Fibula X-Ray 06/16/25 14:20 IMPRESSION: Diffuse soft tissue swelling. Chronic cortical thickening involving the anterior aspect of the tibia. No plain film evidence of osteomyelitis. If this remains a clinical concern, three-phase bone scan or MRI could be performed. Electronically signed by: Eric Juarez MD 06/16/2025 02:27 PM EDT RP Shoulder X-Ray 06/21/25 11:11 IMPRESSION: No acute findings. Additional findings as detailed above. Electronically signed by: Nithin Chaudhari MD 06/21/2025 11:23 AM [facility] RP Mental Status Exam Mental Status Exam Level of Consciousness: Awake and Alert Patient Behavior: Appropriate and Guarded Medications Medications Current Medications Acetaminophen (Acetaminophen 325 Mg Tablet) 650 mg PO Q4H PRN PRN Reason: Pain (Scale Score 4-6) Last Admin: 06/20/25 18:38 Dose: 650 mg Allopurinol (Allopurinol 300 Mg Tablet) 300 mg PO DAILY [facility] Last Admin: 06/22/25 07:27 Dose: 300 mg Calcium Carbonate (Calcium Carbonate 750 Mg Tab.Chew) 750 mg PO Q4H PRN PRN Reason: Heartburn Doxycycline Monohydrate (Doxycycline Monohydrate 100 Mg Capsule) 100 mg PO Q12H [facility] Last Admin: 06/22/25 10:39 Dose: 100 mg Folic Acid (Folic Acid 1 Mg Tablet) 1 mg PO DAILY [facility] Last Admin: 06/22/25 07:27 Dose: 1 mg Furosemide (Furosemide 40 Mg Tablet) 40 mg PO DAILY [facility]; Protocol Last Admin: 06/22/25 07:27 Dose: 40 mg Hydralazine HCl (Hydralazine Hcl 20 Mg/Ml Vial) 5 mg IVPUSH Q6H PRN; Protocol PRN Reason: SBP > 160 Hydromorphone HCl (Hydromorphone Hcl 1 Mg/Ml Syringe) 1 mg IVPUSH Q6H PRN; Protocol PRN Reason: Pain, Severe (Pain Scale 7-10) Last Admin: 06/19/25 20:20 Dose: 1 mg Magnesium Hydroxide (Milk Of Magnesia 30 Ml Oral.Susp) 30 ml PO DAILY PRN PRN Reason: Constipation Magnesium Oxide (Magnesium Oxide 400 Mg Tablet) 400 mg PO DAILY [facility] Last Admin: 06/22/25 07:27 Dose: 400 mg Melatonin (Melatonin 3 Mg Tablet) 6 mg PO BEDTIME PRN PRN Reason: Insomnia Metoprolol Succinate (Metoprolol Succinate Er 25 Mg Tab.Er.24h) 25 mg PO DAILY [facility]; Protocol Last Admin: 06/22/25 07:27 Dose: 25 mg Multivitamins/Vitamin C (Multivitamin Tablet) 1 tab PO DAILY [facility] Last Admin: 06/22/25 07:27 Dose: 1 tab Naltrexone HCl (Naltrexone Hcl 50 Mg Tablet) 50 mg PO DAILY [facility] Last Admin: 06/22/25 07:27 Dose: 50 mg Ondansetron HCl (Ondansetron Hcl 4 Mg/2 Ml Vial) 4 mg IVPUSH Q8H PRN PRN Reason: Nausea and Vomiting Last Admin: 06/18/25 12:45 Dose: 4 mg Pharmacy Consult (Consult Rx Etoh Phenob Po Only) 1 each MISCELLANE ONCE PRN; Protocol PRN Reason: Consult order Phenobarbital (Phenobarbital 15 Mg Tablet) 45 mg PO BID [facility]; Protocol Stop: 06/23/25 09:01 Last Admin: 06/22/25 07:26 Dose: 45 mg Phenobarbital (Phenobarbital 30 Mg Tablet) 30 mg PO BID [facility]; Protocol Stop: 06/25/25 09:01 Phenobarbital (Phenobarbital 30 Mg Tablet) 30 mg PO DAILY [facility]; Protocol Stop: 06/27/25 09:01 Pyridoxine HCl (Pyridoxine Hcl (Vitamin B6) 50 Mg Tablet) 50 mg PO DAILY [facility] Last Admin: 06/22/25 07:27 Dose: 50 mg Sodium Chloride (0.9 % Sodium Chloride Flush 3 Ml Syringe) 3 ml IVFLUSH QSHIFT [facility] Last Admin: 06/22/25 16:00 Dose: 3 ml Thiamine HCl (Thiamine Hcl 100 Mg Tablet) 100 mg PO DAILY [facility] Last Admin: 06/22/25 07:27 Dose: 100 mg Allergies Allergies Allergy/AdvReac Type Severity Reaction Status Date / Time azithromycin (AZITHROMYCIN) Allergy Severe FACIAL Verified 06/16/25 08:12 SWELLING hydrochlorothiazide (HCTZ) Allergy Severe Facial Verified 06/16/25 08:12 Swelling Assessment & Plan Assessment & Plan (1) Alcohol use disorder: Status: Acute Code(s): F10.90 - Alcohol use, unspecified, uncomplicated Assessment and Plan: phenobarbital taper in place. continue naltrexone --will need rx at discharge (avoid opiates with naltrexone) plans to follow up with Dr. Mendoza at [facility] to continue STEVIE declined to discuss additional strategies related to AUD no additional follow up indicated at this time Total time managing care of this patient today __20__ minutes. [facility] Past Medical History Medical History Abdominal wall abscess at site of surgical wound CKD stage 3a, GFR 45-59 ml/min Colitis Renal mass Renal cell carcinoma Alcohol use disorder Hyperlipidemia Ascending aortic aneurysm Alcoholic steatohepatitis Seborrheic dermatitis DEBORAH (obstructive sleep apnea) History of rhabdomyolysis Hx of lower gastrointestinal bleeding Hx of sepsis History of DVT of lower extremity Chronic ulcer of leg Chronic venous stasis HTN (hypertension) Anemia Anemia Family History Family History Mother Dementia Maternal Grandmother Dementia Family history: reviewed and not pertinent Surgical History Surgical History H/O partial nephrectomy Hx of colonoscopy Social History Social History Household Members: Family Household Members Other:: mother who has dementia Housing: House Housing Other:: 4 stairs to get into house. Pt lives in basement Do you presently have visiting nurse or other home services: Yes (wound care and nurse) Alcohol intake: current Alcohol intake frequency: 3 or more drinks per day Alcohol type: hard liquor Comment: pt refused socks Patient Tobacco Use Status: Never used Tobacco Advance Directives Date on File: 04/13/22 service: No Current occupational status: disabled
[2025-06-22 19:42] VITALS: BP 108/60; PULSE 68; RESP 20; TEMP 36.7; O2SAT 95
[2025-06-23] VITALS (7 sets, daily range): BP systolic 104–136; BP diastolic 58–73; PULSE 57–71; RESP 18–20; TEMP 36.3–36.9; O2SAT 95–99
[2025-06-23] MEDS: Metoprolol Succinate ER 25 MG TAB.ER.24H PO (08:10)
[2025-06-23] MEDS: 0.9 % Sodium Chloride Flush 3 ML SYRINGE IVFLUSH ×2 (08:14→15:49)
--- NOTE | 2025-06-23 09:33 | MHC.CM.PN ---
CM met with pt. to discuss DCP, he was accepted at [facility], he chose to go to [facility], he said he has been there before and it was good. MDS completed and sent to [facility].
--- NOTE | 2025-06-23 12:28 | HO.PM.IMPN ---
Subjective Subjective Date of Service: 06/23/25 Interval History: He notes some improvement today but still weak Review of Systems Review of Systems: Yes all other systems are reviewed and are negative Physical Exam Vital Signs: Vital Signs: Last Vital Signs Temp 98.3 F 06/23/25 10:53 Pulse 62 06/23/25 10:53 Resp 18 06/23/25 10:53 BP 109/61 06/23/25 10:53 Pulse Ox 96 06/23/25 10:53 O2 Del Method Room Air 06/23/25 10:53 BMI result Body Mass Index 35.5 Objective Data Active Medications Acetaminophen (Acetaminophen 325 Mg Tablet) 650 mg PO Q4H PRN PRN Reason: Pain (Scale Score 4-6) Last Admin: 06/20/25 18:38 Dose: 650 mg Documented By: ANAI Allopurinol (Allopurinol 300 Mg Tablet) 300 mg PO DAILY [facility] Last Admin: 06/23/25 08:12 Dose: 300 mg Documented By: DICKSON Calcium Carbonate (Calcium Carbonate 750 Mg Tab.Chew) 750 mg PO Q4H PRN PRN Reason: Heartburn Doxycycline Monohydrate (Doxycycline Monohydrate 100 Mg Capsule) 100 mg PO Q12H [facility] Last Admin: 06/23/25 12:07 Dose: 100 mg Documented By: DICKSON Folic Acid (Folic Acid 1 Mg Tablet) 1 mg PO DAILY [facility] Last Admin: 06/23/25 08:12 Dose: 1 mg Documented By: DICKSON Furosemide (Furosemide 40 Mg Tablet) 40 mg PO DAILY [facility]; Protocol Last Admin: 06/23/25 08:12 Dose: 40 mg Documented By: DICKSON Hydralazine HCl (Hydralazine Hcl 20 Mg/Ml Vial) 5 mg IVPUSH Q6H PRN; Protocol PRN Reason: SBP > 160 Hydromorphone HCl (Hydromorphone Hcl 1 Mg/Ml Syringe) 1 mg IVPUSH Q6H PRN; Protocol PRN Reason: Pain, Severe (Pain Scale 7-10) Last Admin: 06/19/25 20:20 Dose: 1 mg Documented By: ROLY Magnesium Hydroxide (Milk Of Magnesia 30 Ml Oral.Susp) 30 ml PO DAILY PRN PRN Reason: Constipation Magnesium Oxide (Magnesium Oxide 400 Mg Tablet) 400 mg PO DAILY [facility] Last Admin: 06/23/25 08:10 Dose: 400 mg Documented By: DICKSON Melatonin (Melatonin 3 Mg Tablet) 6 mg PO BEDTIME PRN PRN Reason: Insomnia Metoprolol Succinate (Metoprolol Succinate Er 25 Mg Tab.Er.24h) 25 mg PO DAILY [facility]; Protocol Last Admin: 06/23/25 08:10 Dose: 25 mg Documented By: DICKSON Multivitamins/Vitamin C (Multivitamin Tablet) 1 tab PO DAILY [facility] Last Admin: 06/23/25 08:11 Dose: 1 tab Documented By: DICKSON Naltrexone HCl (Naltrexone Hcl 50 Mg Tablet) 50 mg PO DAILY [facility] Last Admin: 06/23/25 08:11 Dose: 50 mg Documented By: DICKSON Ondansetron HCl (Ondansetron Hcl 4 Mg/2 Ml Vial) 4 mg IVPUSH Q8H PRN PRN Reason: Nausea and Vomiting Last Admin: 06/18/25 12:45 Dose: 4 mg Documented By: LIZZETH Pharmacy Consult (Consult Rx Etoh Phenob Po Only) 1 each MISCELLANE ONCE PRN; Protocol PRN Reason: Consult order Phenobarbital (Phenobarbital 30 Mg Tablet) 30 mg PO BID [facility]; Protocol Stop: 06/25/25 09:01 Phenobarbital (Phenobarbital 30 Mg Tablet) 30 mg PO DAILY [facility]; Protocol Stop: 06/27/25 09:01 Pyridoxine HCl (Pyridoxine Hcl (Vitamin B6) 50 Mg Tablet) 50 mg PO DAILY [facility] Last Admin: 06/23/25 08:10 Dose: 50 mg Documented By: DICKSON Sodium Chloride (0.9 % Sodium Chloride Flush 3 Ml Syringe) 3 ml IVFLUSH QSHIFT [facility] Last Admin: 06/23/25 08:14 Dose: 3 ml Documented By: DICKSON Thiamine HCl (Thiamine Hcl 100 Mg Tablet) 100 mg PO DAILY [facility] Last Admin: 06/23/25 08:12 Dose: 100 mg Documented By: DICKSON Labs 06/21/25 06:29 06/22/25 07:28 Labs: Laboratory Results - last 24 hr 06/19/25 10:30 Lyme Progressive Test TNP Microbiology Microbiology Results: Microbiology 06/16/25 14:09 Blood Culture - Final Blood - Venous No growth after 5 days. 06/16/25 14:09 Blood Culture - Final Blood - Venous No growth after 5 days. Assessment and Plan (1) Acute infectious diarrhea: Status: Acute (2) Venous stasis ulcer: Status: Acute (3) CKD stage 3a, GFR 45-59 ml/min: Status: Acute Plan 65yo M presenting with nonbloody diarrhea and fever, found to have mesenteric inflammation; hospitalization complicated by generalized edema, worsening joint pain, UE>LE weakness, and now EtOH withdrawal AUD with withdrawal - continue naltrexone, phenobarbital PO taper, thiamine/folate/multivitamin, Addiction Medicine consult mesenteritis, ?chronic - has resolved; stop ceftriaxone; GI consulted; plan repeat CT A/P in 4 wk to ensure resolution of adenopathy; C diff + GI panel negative generalized weakness -Neuro consulted; discussed possibility of GBS but then felt to have more of an inflammatory process given elevated CRP + ESR; for now, treating other causes including possibility of tickborne illness with doxycycline 06/19- [serologies + molecular studies pending]; no evidence of demyelination on MRI brain/C-spine. Weakness has improved and is now mostly in the LUE. Probably due to a combination of severe alcoholism and arthritis; will cancel LP. generalized edema - TTE with normal LVEF + diastolic function - no proteinuria - change IV to PO furosemide hypoMg - repleted, continue PO maintenance coccygeal stage 2 pressure ulcers RLE venous stasis ulcers - Wound Care: Coccyx, left upper buttock: Off Load Pressure with Q2 hr turns and use of pillows - Cleanse with PH balance spray or wipes, pat dry. ?Apply thin layer of Triad to wound bed - only pat and dab no scrub and rub when soiling occurs. Reapply thin layer PRN after each episode of incontinence. Right leg: cleanse with saline, apply moisturizer per orders, apply xeroform to wound beds and surrounding, followed by ABD pad, wrap with rolled gauze, change daily and PRN. Left abdomen: apply protective foam, change every 3 days and PRN. Buttocks/perineum/groin: Off Load Pressure with Q2 hr turns and use of pillows - Cleanse with PH balance spray or wipes, pat dry. ?Apply thin layer of Triad to wound bed - only pat and dab no scrub and rub when soiling occurs. Reapply thin layer PRN after each episode of incontinence anemia of chronic disease mild thrombocytopenia - likely due to EtOH; counts stable CKD, hx left partial nephrectomy: SCr stable gout: allopurinol VTE ppx: enoxaparin dispo: per PT will need STR, awaiting insurance authorizartion In my clinical judgment, the patient requires continued inpatient hospitalization for the following reasons: phenobarbital taper, rehab placement Total time managing care of this patient today: 40 minutes. Quality Stroke Does the patient have a stroke diagnosis?: No VTE Prior VTE?: No VTE Risk Level:: Medical - moderate - high VTE Device Contraindication: N/A - Device Ordered VTE Drug Contraindication: Treatment Not Indicated
--- NOTE | 2025-06-23 13:27 | MHC.CLN ---
F/U PT WITH INCREASED NUTRITION RISK R/T PRESSURE INJURY PO INTAKE 100% X3 MEALS DIET RX: 2GM NA DIET RECEIVING ENSURE TID TO PROMOTE WOUND HEALING SUPP PROVIDES 1050KCALS, 60G PROTEIN MONITOR PO INTAKE AND ENCOURAGE SUPPLEMENTS
[2025-06-24 03:17] VITALS: BP 122/70; PULSE 57; RESP 18; TEMP 35.8; O2SAT 94
[2025-06-24 07:42] VITALS: BP 131/71; PULSE 58; RESP 18; TEMP 36.6; O2SAT 96
[2025-06-24] MEDS: 0.9 % Sodium Chloride Flush 3 ML SYRINGE IVFLUSH ×2 (09:10→17:36)
[2025-06-24] MEDS: Metoprolol Succinate ER 25 MG TAB.ER.24H PO (09:11)
[2025-06-24 12:00] VITALS: BP 133/75; PULSE 60; RESP 18; TEMP 36.5; O2SAT 96
--- NOTE | 2025-06-24 14:10 | HO.WOUND ---
Wound Consult: Follow up 65 yr old male admitted to [facility] [place] on 06/16/25 - See progress notes and H&P for detailed history. Wound consult placed for right leg and buttocks. Patient agreeable to assessment and photo documentation. Patient reports followed by [facility] [place] wound center, reports days of diarrhea at home prior to admission coccyx - left upper buttocks Etiology: coccyx stage 2 pressure injury Present on Admission superimposed on IAD to buttocks/gluteal fold/perineum/and groin - left upper buttock PI resurfaced Measurements: 1cm x 0.3cm x 0.1cm Wound Bed: moist pink/red Drainage / Odor: none Edges: ? open Slime wound: ? No Induration, Fluctuance or Warmth noted- slime wound with MASD/IAD moderate/severe with chapped red skin Pain: none Goals of Treatment: ? triad paste to entire area Right lateral lower leg - resurfaced - area of purpura remains Right medial lower leg- improving no open areas Etiology: Chronic venous stasis to right lateral leg - wounds resurfaced , continues to have irregular area of intact nonblanching purple, medial leg with linear area of abrasion. Wound Bed: intact Drainage / Odor: Edges: ? open Slime wound: ? No Induration, Fluctuance or Warmth noted - thick dry flaking skin to lower leg Pain: none Goals of Treatment: ? message to provider for ammonium lactate lotion for dry flaking skin Recommendations: 1. Turn and Reposition every 2 hours and as needed for patient comfort. Use pillows or wedges to support off loading positions. 2. Off Load all bony prominences with use of pillows and heel boots if needed. Apply Preventative foams where needed. 3. Monitor for incontinence and moisture control, use barrier creams when needed for prevention and treatment. 4. Provide adequate and supplemental nutrition. 5. Order or Continue low air loss mattress. 6. When applicable maintain blood glucose levels per Providers order. Coccyx, left upper buttock: Off Load Pressure with Q2 hr turns and use of pillows - Cleanse with PH balance spray or wipes, pat dry. ?Apply thin layer of Triad to wound bed - only pat and dab no scrub and rub when soiling occurs. Reapply thin layer PRN after each episode of incontinence. Right leg: apply moisturizer per orders Left abdomen: apply protective foam, change every 3 days and PRN. Buttocks/perineum/groin: Off Load Pressure with Q2 hr turns and use of pillows - Cleanse with PH balance spray or wipes, pat dry. ?Apply thin layer of Triad to wound bed - only pat and dab no scrub and rub when soiling occurs. Reapply thin layer PRN after each episode of incontinence. Re-consult wound care Nurse for wound deterioration or wound changes.
[2025-06-24 15:18] VITALS: BP 110/70; PULSE 56; RESP 18; TEMP 36.5; O2SAT 97
[2025-06-24 19:33] VITALS: BP 126/69; PULSE 60; RESP 18; TEMP 37.1; O2SAT 97
[2025-06-25] VITALS: BP 101/61; PULSE 61; RESP 18; TEMP 36.2; O2SAT 97
[2025-06-25 03:18] VITALS: BP 124/65; PULSE 55; RESP 18; TEMP 36.4; O2SAT 98
[2025-06-25 07:36] VITALS: BP 123/96; PULSE 51; RESP 18; TEMP 36.4; O2SAT 97
[2025-06-25] MEDS: 0.9 % Sodium Chloride Flush 3 ML SYRINGE IVFLUSH (09:07)
[2025-06-25] MEDS: Metoprolol Succinate ER 25 MG TAB.ER.24H PO (09:08)
--- NOTE | 2025-06-25 10:25 | P.DS_ITS ---
DS: Providers Provider Date of Service: 06/25/25 Date of admission: 06/16/25 17:20 Date of discharge: 06/25/25 Primary care physician: Samantha Gonzales MD Consults: 06/16/25 19:11 Consult to Wound Care Routine Consulting Provider[place] [facility] Reason for consultation: right lower extremity wound 06/17/25 11:03 Consult to Wound Care Routine Consulting Provider: [facility] Reason for consultation: MASD? to buttocks/coccyx 06/17/25 13:38 Consult to Infectious Diseases Routine Consulting Provider: [facility] Reason for consultation: gastroenteritis, RLE wound Has provider been notified: No 06/18/25 11:11 Consult to Neurology Routine Consulting Provider: [facility] Reason for consultation: progressive weakness following gastroenteritis Has provider been notified: No 06/19/25 08:16 Consult to Gastroenterology Routine Consulting Provider: [facility] Reason for consultation: mesenteritis 06/21/25 10:19 Addiction Medicine Provider Routine Consulting Provider: [facility] Reason for consultation: etoh DS: Diagnosis Discharge Diagnosis (1) Acute infectious diarrhea: Status: Acute (2) Venous stasis ulcer: Status: Acute (3) CKD stage 3a, GFR 45-59 ml/min: Status: Acute DS: Summary Hospital Course Hospital Course: Hospital course 65-year-old male presenting with non-bloody diarrhea and fever, found to have mesenteric inflammation. Hospitalization was complicated by generalized edema, worsening joint pain, upper extremity > lower extremity weakness, and alcohol withdrawal. Alcohol use disorder with withdrawal Treated with naltrexone, oral phenobarbital taper, thiamine, folate, and multivitamin. Evaluated by addiction medicine. 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 Evaluated by GI; recommendation for repeat CT abdomen/pelvis in 4 weeks to ensure resolution of adenopathy. C. difficile and GI panel negative. Generalized weakness Neurology consulted; Guillain-Bare syndromen ( GBS ) considered but ultimately thought to be more consistent with an inflammatory process given elevated CRP and ESR. Other causes being treated, including possible tick-borne illness (doxycycline started 06/19; serologies and molecular studies pending), will continue doxycyline until tick panel is fully back MRI brain and C-spine showed no evidence of demyelination. Weakness has improved, now mostly limited to the left upper extremity, which is also improving. Likely multifactorial: severe alcoholism and arthritis. LP was considered but deferred. Will continue doxycycline for 2 weeks or until tick-borne illness results are available. Generalized edema Echocardiogram: normal LVEF and diastolic function. No proteinuria. Switched from IV to PO furosemide. Hypomagnesemia Improved with supplementation. Continue oral maintenance. Wound care * Coccygeal stage 2 pressure ulcers * Right lower extremity venous stasis ulcers * Coccyx, left upper buttock: Offload pressure with Q2 hour turns and use of pillows. Cleanse with pH-balanced spray or wipes, pat dry. Apply thin layer of Triad to wound bed?pat and dab only, no scrubbing or rubbing when soiling occurs. Reapply PRN after each episode of incontinence. * Right leg: Cleanse with saline, apply moisturizer per orders, apply xeroform to wound beds and surrounding area, cover with ABD pad, wrap with rolled gauze, change daily and PRN. * Left abdomen: Apply protective foam, change every 3 days and PRN. * Buttocks/perineum/groin: Offload pressure with Q2 hour turns and use of pillows. Cleanse with pH-balanced spray or wipes, pat dry. Apply thin layer of Triad to wound bed?pat and dab only, no scrubbing or rubbing when soiling occurs. Reapply PRN after each episode of incontinence. Anemia of chronic disease Mild thrombocytopenia * Likely secondary to alcohol use; counts stable. CKD, history of left partial nephrectomy * Serum creatinine stable. Gout * On allopurinol. To rehab for less than 30 days Time Attestation Discharge Coordination Time (in mins): 45 Quality: Safe Use of Opioids Does Pt have an Active Cancer Diagnosis on the Problem List?: No Quality: Stroke Does the patient have a stroke diagnosis?: No Physical Exam Vital Signs: Vital Signs: Selected Entries 06/25/25 07:36 Temperature 97.6 F Pulse Rate 51 Respiratory Rate 18 Blood Pressure 123/96 H Pulse Oximetry 97 Oxygen Delivery Me thod Room Air DS: Data Data Completed and Pending Completed studies during hospitalization [Text1]: Procedures Detoxification Services for Substance Abuse Treatment (10/16/24) Drainage of Abdomen Subcutaneous Tissue and Fascia, Open Approach (05/13/24) Excision of Descending Colon, Via Natural or Artificial Opening Endoscopic, Diagnostic (09/25/23) Excision of Duodenum, Via Natural or Artificial Opening Endoscopic, Diagnostic (09/25/23) Excision of Stomach, Pylorus, Via Natural or Artificial Opening Endoscopic, Diagnostic (09/25/23) Transfusion of Nonautologous Red Blood Cells into Peripheral Vein, Percutaneous Approach (09/25/23) Discharge Plan Discharge Anticipated Discharge Date/Time: 06/25/25 10:21 Patient Disposition: Home Health Service Discharge Diagnosis: Generalized weakness, mesenteritis, alcohol use disorder Referrals: [facility] [Outside] - 1 Day Referral Note: RESUMPTION OF CARE Samantha Gonzales MD [Primary Care Provider, Internal Medicine] - 1 Week Discharge Medications: New doxycycline monohydrate 100 mg Capsule 100 mg PO Q12H Qty: 20 0RF Continued magnesium oxide 400 mg (241.3 mg magnesium) tablet 400 mg PO DAILY Qty: 10 0RF folic acid 1 mg tablet 1 mg PO DAILY Qty: 30 0RF acetaminophen 325 mg Tablet 650 mg PO Q4H PRN (Reason: Pain (Scale Score 4-6)) metoprolol succinate 25 mg Tablet Extended Release 24 Hr 25 mg PO DAILY thiamine HCl (vitamin B1) [Vitamin B-1] 100 mg Tablet 100 mg PO DAILY pyridoxine (vitamin B6) [Vitamin B-6] 50 mg Tablet 50 mg PO DAILY cholecalciferol (vitamin D3) [Vitamin D3] 50 mcg (2,000 unit) Tablet 50 mcg PO DAILY ferrous sulfate 325 mg (65 mg iron) Tablet,Delayed Release (Dr/Ec) 325 mg PO DAILY allopurinol 300 mg tablet 300 mg PO DAILY ascorbate calcium (vitamin C) 500 mg tablet 500 mg PO BID Discharge Orders: Discharge Order (Routine); Ordered 06/25/25 Ordered By: Jeff Alberts Diet: Advance to usual diet Activity on Discharge: As tolerated Stand Alone Forms: Patient Portal Discharge page Print Language: Algerian Care Plan Goals: recovery from weakness, mesenteritis, alcohol use disorder Health Concerns: generalized weakness, concern for tic borne illness, chronic venous stasis with wound, alcohol use disoder Plan of Treatment: To short term rehab follow wound care instruction as described take Doxycyline until tick borness illness result available Assessment: see above
--- NOTE | 2025-06-25 11:26 | MHC.CLN ---
F/U PO INTAKE 100% DIET RX: 2GM NA DIET RECEIVING ENSURE TID TO PROMOTE WOUND HEALING SUPP PROVIDES 1050KCALS, 60G PROTEIN MONITOR PO INTAKE AND ENCOURAGE SUPPLEMENTS PT PLAN FOR DISCHARGE TODAY
--- NOTE | 2025-06-25 11:43 | MHC.CM.PN ---
PT MEDICALLY CLEARED FOR DC TO STR AT [facility], SIGNED DC SUMMARY W/LESS THAN 30 DAY FAXED TO [facility] FOR APPROVAL AND [facility] FOR [facility] FOR S TRANSPORT. CM MET W/PT WHO IS AGREEABLE TO PLAN AND PT WILL CALL HIS SISTER TO LET HER KNOW.
[2025-06-25 11:51] VITALS: BP 115/62; PULSE 56; RESP 18; TEMP 36.2; O2SAT 95
[2025-06-29 17:23] LABS: A. Phagocytophilum Ab IgG <1:64 (<1:64); A. Phagocytophilum Ab IgM 1:40 (<1:20); Interpretation EQUIVOCAL
== END 2025-06-25 15:27 | disposition skilled nursing facility (03) | DRG 775 ==
LOC: HO.ED 17:29 → HO.EDOVER 17:33 → HO.IMC 06-17 09:15
PROVIDERS: Family Medicine; Internal Medicine; Physician Assistant Medical; Admitting Provider Student in an Organized Health Care Education/Training Program; Emergency Provider Emergency Medicine; PCP Family Medicine; Visit Provider Internal Medicine
DX: F10.939 Alcohol use, unspecified with withdrawal, unspecified (principal); L89.152 Pressure ulcer of sacral region, stage 2; D63.1 Anemia in chronic kidney disease; D69.59 Other secondary thrombocytopenia; L97.819 Non-pressure chronic ulcer of other part of right lower leg with unspecified severity; G62.1 Alcoholic polyneuropathy; K52.9 Noninfective gastroenteritis and colitis, unspecified; I87.2 Venous insufficiency (chronic) (peripheral); D50.9 Iron deficiency anemia, unspecified; G31.9 Degenerative disease of nervous system, unspecified; R59.0 Localized enlarged lymph nodes; M10.9 Gout, unspecified; N18.30 Chronic kidney disease, stage 3 unspecified; E83.42 Hypomagnesemia; Z85.528 Personal history of other malignant neoplasm of kidney; Z79.899 Other long term (current) drug therapy
CPT/HCPCS: 36415; 70553; 71046; 72156; 73030; 73590; 74177; 80048; 80307; 81001; 82248; 82550; 82570; 83605; 83690; 83735; 83880; 84145; 84156; 84439; 84443; 85025; 85027; 85652; 86140; 86617; 86618; 86666; 86753; 87040; 87086; 87468; 87469; 87478; 87484; 87493; 87502; 87507; 87635; 87798; 93005; 93306; 97116; 97162; 97166; 97530; 99285; A9585; J0131; J0696; J1171; J1938; J1956; J2185; J2250; J2405; J3475; J7120; Q9967; S9485

== ENCOUNTER → 2025-06-16 09:06 | Outpatient (BNV) | payer MEDICAID, SELFPAY | PROVIDERS: Emergency Provider Emergency Medicine; PCP Family Medicine; Visit Provider Radiology Diagnostic Radiology | DX: R16.0 Hepatomegaly, not elsewhere classified (principal); Z90.5 Acquired absence of kidney; I51.7 Cardiomegaly; M79.89 Other specified soft tissue disorders; M89.361 Hypertrophy of bone, right tibia | CPT/HCPCS: 71046; 73590; 74177 ==

== ENCOUNTER 2025-06-16 17:20 | Outpatient (BNV) | payer MEDICAID, SELFPAY | END 2025-06-21 11:11 | PROVIDERS: Admitting Provider Student in an Organized Health Care Education/Training Program; Emergency Provider Emergency Medicine; PCP Family Medicine; Visit Provider Radiology Diagnostic Ultrasound | DX: M25.512 Pain in left shoulder (principal) | CPT/HCPCS: 73030 ==

== ENCOUNTER 2025-06-16 17:20 | Outpatient (BNV) | payer MEDICAID, SELFPAY | END 2025-06-17 05:00 | PROVIDERS: Admitting Provider Student in an Organized Health Care Education/Training Program; Emergency Provider Emergency Medicine; PCP Family Medicine; Visit Provider Internal Medicine | DX: I49.3 Ventricular premature depolarization (principal); I45.9 Conduction disorder, unspecified | CPT/HCPCS: 93010 ==

== ENCOUNTER 2025-06-16 17:20 | Outpatient (BNV) | payer MEDICAID, SELFPAY | END 2025-06-18 14:00 | PROVIDERS: Admitting Provider Student in an Organized Health Care Education/Training Program; Emergency Provider Emergency Medicine; PCP Family Medicine; Visit Provider Internal Medicine | DX: I71.21 Aneurysm of the ascending aorta, without rupture (principal) | CPT/HCPCS: 93306 ==

== ENCOUNTER 2025-06-16 17:20 | Outpatient (BNV) | payer MEDICAID, SELFPAY | END 2025-06-20 12:27 | PROVIDERS: Admitting Provider Student in an Organized Health Care Education/Training Program; Emergency Provider Emergency Medicine; PCP Family Medicine; Visit Provider Radiology Diagnostic Radiology | DX: M62.81 Muscle weakness (generalized) (principal) | CPT/HCPCS: 70553; 72156 ==

== ENCOUNTER → 2025-06-16 17:20 | Outpatient (BNV) | payer MEDICAID, SELFPAY | PROVIDERS: Admitting Provider Student in an Organized Health Care Education/Training Program; Emergency Provider Emergency Medicine; PCP Family Medicine; Visit Provider Psychiatry & Neurology Neurology | DX: R53.1 Weakness (principal) | CPT/HCPCS: 99222 ==

== ENCOUNTER → 2025-06-16 17:20 | Outpatient (BNV) | payer OTHER, SELFPAY | PROVIDERS: Admitting Provider Student in an Organized Health Care Education/Training Program; Emergency Provider Emergency Medicine; PCP Family Medicine; Visit Provider Nurse Practitioner Psychiatric/Mental Health | DX: F10.90 Alcohol use, unspecified, uncomplicated (principal) | CPT/HCPCS: 99221 ==

== ENCOUNTER → 2025-06-16 17:20 | Outpatient (BNV) | payer MEDICAID, SELFPAY | PROVIDERS: Admitting Provider Student in an Organized Health Care Education/Training Program; Emergency Provider Emergency Medicine; PCP Family Medicine; Visit Provider Student in an Organized Health Care Education/Training Program | DX: I87.2 Venous insufficiency (chronic) (peripheral) (principal); L97.201 Non-pressure chronic ulcer of unspecified calf limited to breakdown of skin; A09 Infectious gastroenteritis and colitis, unspecified; N18.31 Chronic kidney disease, stage 3a | CPT/HCPCS: 99233 ==

== ENCOUNTER → 2025-06-16 17:20 | Outpatient (BNV) | payer MEDICAID, SELFPAY | PROVIDERS: Admitting Provider Student in an Organized Health Care Education/Training Program; Emergency Provider Emergency Medicine; PCP Family Medicine; Visit Provider Internal Medicine | DX: D64.9 Anemia, unspecified (principal); A09 Infectious gastroenteritis and colitis, unspecified; R53.1 Weakness | CPT/HCPCS: 99222 ==

== ENCOUNTER → 2025-06-16 17:20 | Outpatient (BNV) | payer MEDICAID, SELFPAY | PROVIDERS: Admitting Provider Student in an Organized Health Care Education/Training Program; Emergency Provider Emergency Medicine; PCP Family Medicine; Visit Provider Internal Medicine | DX: F10.90 Alcohol use, unspecified, uncomplicated (principal); F10.939 Alcohol use, unspecified with withdrawal, unspecified; A09 Infectious gastroenteritis and colitis, unspecified | CPT/HCPCS: 99222 ==